=== PATIENT | female | born 1945 | race Caucasian/White ===

== ENCOUNTER → 2020-06-24 12:16 | Outpatient (BNVA) | payer OTHER, MEDICARE, SELFPAY | PROVIDERS: PCP Emergency Medicine; Referring Provider Emergency Medicine; Visit Provider Student in an Organized Health Care Education/Training Program | DX: M70.62 Trochanteric bursitis, left hip (principal); M75.82 Other shoulder lesions, left shoulder; M54.41 Lumbago with sciatica, right side | CPT/HCPCS: 20610 ==

== ENCOUNTER 2020-07-03 13:14 | Outpatient (REF) | payer OTHER, SELFPAY ==
--- NOTE | 2020-07-03 13:17 | XR_ITS ---
EXAMINATION: XR LUMBOSACRAL SPINE CLINICAL INFORMATION: Lumbago with right-sided sciatica. COMPARISON: None TECHNIQUE: Three views of the lumbosacral spine. FINDINGS: There is levorotoscoliosis of dorsolumbar spine. No lytic process. The vertebral heights are maintained. There is moderate ventral spondylosis throughout lumbar spine. Mild facet joint arthropathy seen throughout lumbar spine. There is evidence of previous cholecystectomy. The soft tissues are normal. XR/XR lumbar spine 2-3V IMPRESSION: Moderate levoscoliosis of dorsolumbar lumbar spine with moderate spondylosis throughout lumbar spine. No acute fracture or lytic process seen.
--- NOTE | 2020-07-03 13:20 | US_ITS ---
EXAMINATION: US SOFT TISSUE OF THE NECK CLINICAL INFORMATION: Localized swelling, mass and lump, neck. COMPARISON: CT neck 06/10/2010. TECHNIQUE: Linear transducer grayscale and color Doppler examination of the lateral left neck in the area of sternocleidomastoid muscle. FINDINGS: Imaging to the left neck reveals no visible mass or lymph node. No abnormal vascularity or soft tissue swelling. US/US soft tiss head and/or neck IMPRESSION: Unremarkable imaging of left neck by ultrasound
== END 2020-07-03 13:15 | disposition home or self-care (01) ==
LOC: HO.MDS 13:14
PROVIDERS: PCP Internal Medicine; Visit Provider Internal Medicine Pulmonary Disease
DX: J45.909 Unspecified asthma, uncomplicated (principal); M54.41 Lumbago with sciatica, right side; R22.1 Localized swelling, mass and lump, neck
CPT/HCPCS: 72100; 76536

== ENCOUNTER 2020-07-10 11:30 | Outpatient (REF) | payer MEDICARE, SELFPAY | END 2020-07-10 11:31 | disposition home or self-care (01) | LOC: HO.MDS 11:30 | PROVIDERS: PCP Internal Medicine; Visit Provider Internal Medicine Pulmonary Disease | DX: J45.909 Unspecified asthma, uncomplicated (principal) | CPT/HCPCS: 96372; J0517 ==

== ENCOUNTER 2020-09-08 | Outpatient (REF) | payer MEDICARE, SELFPAY | END 2020-09-08 00:01 | disposition home or self-care (01) | LOC: HO.MDS | PROVIDERS: PCP Internal Medicine; Visit Provider Internal Medicine Pulmonary Disease | DX: J45.50 Severe persistent asthma, uncomplicated (principal) | CPT/HCPCS: 96372; J0517 ==

== ENCOUNTER → 2020-10-02 09:37 | Outpatient (BNVA) | payer MEDICARE, SELFPAY | PROVIDERS: PCP Internal Medicine; Visit Provider Urology | DX: C67.9 Malignant neoplasm of bladder, unspecified (principal); N39.0 Urinary tract infection, site not specified | CPT/HCPCS: 81002; 99212 ==

== ENCOUNTER → 2020-10-08 10:17 | Outpatient (BNVA) | payer MEDICARE, SELFPAY | PROVIDERS: PCP Internal Medicine; Visit Provider Urology | DX: C67.9 Malignant neoplasm of bladder, unspecified (principal) | CPT/HCPCS: 52000; 81002; 99212 ==

== ENCOUNTER → 2020-10-22 09:24 | Outpatient (BNVA) | payer MEDICARE, SELFPAY | PROVIDERS: PCP Internal Medicine; Visit Provider Student in an Organized Health Care Education/Training Program | DX: M70.61 Trochanteric bursitis, right hip (principal) | CPT/HCPCS: 20610; 99212 ==

== ENCOUNTER 2020-11-03 10:25 | Outpatient (REF) | payer MEDICARE, SELFPAY | END 2020-11-03 10:26 | disposition home or self-care (01) | LOC: HO.MDS 10:25 | PROVIDERS: PCP Internal Medicine; Visit Provider Internal Medicine Pulmonary Disease | DX: J45.50 Severe persistent asthma, uncomplicated (principal) | CPT/HCPCS: 96372; J0517 ==

== ENCOUNTER → 2020-11-05 09:41 | Outpatient (BNVA) | payer MEDICARE, SELFPAY | PROVIDERS: Visit Provider Internal Medicine Pulmonary Disease | DX: J45.40 Moderate persistent asthma, uncomplicated (principal); R05 Cough; Z91.09 Other allergy status, other than to drugs and biological substances | CPT/HCPCS: 99212 ==

== ENCOUNTER → 2020-11-11 10:41 | Outpatient (BNVA) | payer MEDICARE, SELFPAY | PROVIDERS: Visit Provider Physician Assistant | DX: M25.551 Pain in right hip (principal) | CPT/HCPCS: 99202 ==

== ENCOUNTER → 2020-12-21 08:46 | Outpatient (BNVA) | payer MEDICARE, SELFPAY | PROVIDERS: Visit Provider Surgery | DX: K64.4 Residual hemorrhoidal skin tags (principal); K64.8 Other hemorrhoids | CPT/HCPCS: 46600; 99202 ==

== ENCOUNTER 2020-12-29 09:46 | Outpatient (REF) | payer MEDICARE, SELFPAY | END 2020-12-29 09:47 | disposition home or self-care (01) | LOC: HO.MDS 09:46 | PROVIDERS: PCP Internal Medicine; Visit Provider Internal Medicine Pulmonary Disease | DX: J45.50 Severe persistent asthma, uncomplicated (principal) | CPT/HCPCS: 96372; J0517 ==

== ENCOUNTER 2021-01-29 07:50 | Emergency (ER) | payer MEDICARE, SELFPAY ==
--- NOTE | 2021-01-29 08:42 | ED.GENADULT ---
HPI - General Adult General Chief complaint: Back Pain/Injury Stated complaint: lower back pain Source: patient Mode of arrival: ambulatory Limitations: no limitations History of Present Illness HPI narrative: Patient presents to ED for chronic right lower back/right hip pain radiating down right leg has been going on for at least 4 months. Patient with follow-up with orthopedic and rheumatology. Patient states pain has been occurring since fall 2 months ago, but has had these issues dealt in follow-up rheumatology 2 months before traumatic event. Patient states only able to take Tylenol due to allergies. Patient denies no new trauma since falling 2 months ago. Patient denies any swelling of lower extremities, flank pain, fever, chills, nausea, vomiting, dysuria, hematuria, or abdominal pain. Patient history of left and right hip bursitis. Related Data Home Medications Medication Instructions Recorded Confirmed albuterol sulfate 90 mcg/actuation 2 puff INHALATION Q4-6H PRN 06/24/20 12/21/20 aerosol inhaler cholecalciferol (vitamin D3) 25 25 mcg PO DAILY 06/24/20 12/21/20 mcg (1,000 unit) capsule fluticasone propionate 110 1 puff INHALATION BID 06/24/20 12/21/20 mcg/actuation HFA aerosol inhaler fluticasone propionate 50 1 spray INTRANASAL DAILY 06/24/20 12/21/20 mcg/actuation nasal spray,suspension hydroxyzine HCl 25 mg tablet 25 mg PO QID PRN 06/24/20 12/21/20 lisinopril 10 mg tablet 10 mg PO DAILY 06/24/20 12/21/20 pravastatin 20 mg tablet 20 mg PO DAILY 06/24/20 12/21/20 linaclotide 145 mcg capsule 145 mcg PO QAM 07/02/20 12/21/20 aspirin 81 mg tablet,delayed 81 mg PO DAILY 12/21/20 12/21/20 release Previous Rx's Medication Instructions Recorded omeprazole 20 mg capsule,delayed 40 mg PO BID 30 Days #120 cap 11/05/20 release celecoxib 200 mg capsule 200 mg PO BID 30 Days #60 cap 11/12/20 hydrocortisone acetate 25 mg 25 mg DE BID PRN #24 ea 12/22/20 rectal suppository hydrocortisone 1 %-pramoxine 1 % 1 appl DE BID PRN #10 g 12/24/20 rectal foam benralizumab 30 mg/mL subcutaneous 30 mg SUBCUT Q8W 30 Days #1 ml 01/06/21 syringe lidocaine 1 patch TOPICAL DAILY PRN 10 Days 01/29/21 #10 ea Allergies Allergy/AdvReac Type Severity Reaction Status Date / Time aspirin [ASA] Allergy Intermediate RASH Verified 12/21/20 09:07 ibuprofen [Ibuprofen] Allergy Intermediate RASH Verified 12/21/20 09:07 morphine [MORPHINE] Allergy Intermediate ITCHING Verified 12/21/20 09:07 naproxen [From NAPROSYN] Allergy Intermediate RASH,N/V Verified 12/21/20 09:07 oxycodone [OXYCODONE] Allergy Intermediate NAUSEA & Verified 12/21/20 09:07 VOMITING, RASH Review of Systems Review of Systems: Yes all other systems are reviewed and are negative Constitutional: Constitutional: Reports as per HPI and Reports no additional constitutional complaints Eyes: Eyes: Reports as per HPI and Reports no additional eye complaints ENT: Reports system reviewed and no additional complaints, except as documented and Reports as per HPI Cardiovascular: Cardiovascular: Reports as per HPI and Reports no additional cardiovascular complaints Respiratory: Respiratory: Reports as per HPI and Reports no additional respiratory complaints Gastrointestinal: Gastrointestinal: Reports as per HPI and Reports no additional gastrointestinal complaints Genitourinary: Genitourinary: Reports no additional female genitourinary complaints and Reports as per HPI Musculoskeletal: Musculoskeletal: Reports no additional musculoskeletal complaints, Reports as per HPI, Reports back pain and Reports arthralgias (Right hip pain) Integumentary/Breasts: Skin/Breast: Reports system reviewed and no additional complaints, except as docu and Reports as per HPI Neurologic: Reports system reviewed and no additional complaints, except as documented and Reports as per HPI Psychiatric: Psychiatric: Reports no additional psychiatric complaints and Reports as per HPI PMF Past Medical History Medical History (Updated 01/29/21 @ 08:54 by YAMIL Desai) Bladder mass Hemorrhoids with complication Malignant neoplasm of urinary bladder UTI (urinary tract infection) Surgical History History of esophagogastroduodenoscopy (EGD) Hx of colonoscopy (01/17/19) Family History Family History Father No problems noted. Mother Diabetes Brother Lung cancer Daughter Diabetes Social History Social History Household Members: Spouse Housing: Apartment Alcohol intake: never Smoking Status: Never smoker Use of substances other than those prescribed or required for medical reasons: No Advance Directives: No Advance Directives Information Provided: No Physical Exam Vital Signs: Vital Signs: Last Vital Signs Temp 98.1 F 01/29/21 08:48 Pulse 83 01/29/21 08:48 Resp 16 01/29/21 08:48 BP 147/79 H 01/29/21 08:48 Pulse Ox 97 01/29/21 08:48 Body Mass Index 26.2 Const: General: cooperative, healthy appearing, comfortable, no acute distress, well developed, alert, awake and Physically active HENMT: Head: Yes normal to inspection, Yes No palpable skull fracture present, Yes normocephalic, Yes atraumatic and No abrasion Eyes: General: appearance normal, both eyes and all related structures Neck: Neck: Yes normal visual inspection, Yes full ROM, Yes no lymphadenopathy, Yes no meningeal signs, Yes trachea midline, Yes supple and No tender Chest: Chest palpation & inspection: normal inspection of the chest and normal palpation of entire chest wall Resp: Effort & Inspection: normal respiratory effort and able to speak in complete sentences Auscultation: clear to auscultation bilaterally Cardio: Jugular venous distension: no JVD Heart sounds: S1 normal heart sound present and S2 normal heart sound present GI: Inspection: Yes normal to inspection and No abdominal wall ecchymosis Palpation (GI): Soft to palpation, not firm, nontender, no guarding and not rigid : General: No CVA tenderness and Yes no CVA tenderness Back/Spine/Pelvis: Other: Patient also have left posterior lumbar /hip pain radiating down leg on palpation. Back: no CVA tenderness, No CVA tenderness and back tenderness (lumbar/posterior hip) Skin: General skin exam: no rashes or lesions noted and elasticity normal Neuro: Other: Patient has normal gait General: patient oriented x3, no meningeal signs and CN's II-XI intact bilaterally Cranial nerves: Yes CN's II-XII intact bilaterally Extrem: Other: Lower extremities negative for any swelling, pitting edema, calf tenderness, or thigh tenderness. Negative for palpable cord. Pedal pulses intact. General: Yes normal to inspection, Yes full ROM and Yes capillary refill normal Course Course Course Narrative: Not suspecting UTI. Patient has allergy to lots of pain medication. Pain med option limited. Patient only able take Tylenol. No need for repeat imaging. Patient having symptoms for at least 4 months per Reevaluation(s) Reevaluation #1: Patient given lidocaine patch and will be discharged with lidocaine patch. Patient informed to continue taking Tylenol. Patient informed to follow-up with PCP, Orthopedic, and rheumatology. Medical Decision Making MDM Narrative Medical decision making narrative: Chronic back pain Discharge Plan Discharge Clinical Impression: Low back pain due to bilateral sciatica, Lumbar radiculopathy Patient Disposition: Home, Self-Care Instructions: Sciatica (ED), Lumbar Radiculopathy (ED) Additional Instructions: Return to the ED for urinary/bowel incontinence, severe back pain, flank pain, fever, chills, nausea, vomiting, abdominal pain, bloody urine, increased urinary frequency, weakness in legs, or any other concerning symptoms. Prescriptions: New lidocaine 3.5 % adhesive patch,medicated 1 patch topical DAILY PRN (Reason: pain) 10 Days Qty: 10 RF: 0 No Action hydrocortisone acetate [Anucort-HC] 25 mg suppository 25 mg DE BID PRN (Reason: hemorrhoids) Qty: 24 RF: 2 Proctofoam HC 1-1 % foam 1 appl DE BID PRN (Reason: hemorrhoids) Qty: 10 RF: 1 Fasenra 30 mg/mL syringe 30 mg subcut Q8W 30 Days Qty: 1 RF: 12 celecoxib [Celebrex] 200 mg capsule 200 mg PO BID 30 Days Qty: 60 RF: 3 aspirin 81 mg tablet,delayed release (DR/EC) 81 mg PO DAILY RF: 0 albuterol sulfate 90 mcg/actuation HFA aerosol inhaler 2 puff inhalation Q4-6H PRNRF: 0 hydroxyzine HCl 25 mg tablet 25 mg PO QID PRNRF: 0 cholecalciferol (vitamin D3) 25 mcg (1,000 unit) capsule 25 mcg PO DAILY RF: 0 fluticasone propionate [Flonase Allergy Relief] 50 mcg/actuation spray,suspension 1 spray intranasal DAILY RF: 0 pravastatin 20 mg tablet 20 mg PO DAILY RF: 0 lisinopril 10 mg tablet 10 mg PO DAILY RF: 0 Flovent HFA 110 mcg/actuation HFA aerosol inhaler 1 puff inhalation BID RF: 0 Linzess 145 mcg capsule 145 mcg PO QAM RF: 0 omeprazole 20 mg capsule,delayed release(DR/EC) 40 mg PO BID 30 Days Qty: 120 RF: 3 Referrals: Angeline Klein MD [Primary Care Provider] - 2 days (Lumbar radiculopathy & sciatica.) Discharge Date/Time: 01/29/21 09:32 Print Language: Par[place]ayan
[2021-01-29 08:48] VITALS: BP 147/79; PULSE 83; RESP 16; TEMP 36.7; O2SAT 97; BMI 26.2
[2021-01-29] MEDS: Lidocaine 4 % Patch ADH..PATCH 1 PATCH TRANSDERMA (08:55)
== END 2021-01-29 09:32 | disposition home or self-care (01) ==
PROVIDERS: Emergency Provider Internal Medicine; PCP General Practice
DX: M54.41 Lumbago with sciatica, right side (principal); M54.42 Lumbago with sciatica, left side; M54.16 Radiculopathy, lumbar region; Z79.899 Other long term (current) drug therapy; Z79.82 Long term (current) use of aspirin
CPT/HCPCS: 99284

== ENCOUNTER → 2021-02-18 10:23 | Outpatient (BNVA) | payer MEDICARE, SELFPAY | PROVIDERS: PCP General Practice; Visit Provider Internal Medicine Pulmonary Disease | DX: J45.40 Moderate persistent asthma, uncomplicated (principal); R05 Cough | CPT/HCPCS: 99212 ==

== ENCOUNTER → 2021-02-24 09:35 | Outpatient (BNVA) | payer MEDICARE, SELFPAY | PROVIDERS: Visit Provider Student in an Organized Health Care Education/Training Program | DX: M70.61 Trochanteric bursitis, right hip (principal); M70.62 Trochanteric bursitis, left hip | CPT/HCPCS: 20610; 99212 ==

== ENCOUNTER 2021-02-25 11:05 | Outpatient (REF) | payer MEDICARE, SELFPAY | END 2021-02-25 11:06 | disposition home or self-care (01) | LOC: HO.MDS 11:05 | PROVIDERS: PCP General Practice; Visit Provider Internal Medicine Pulmonary Disease | DX: J45.50 Severe persistent asthma, uncomplicated (principal) | CPT/HCPCS: 96372; J0517 ==

== ENCOUNTER → 2021-03-04 10:03 | Outpatient (BNVA) | payer MEDICARE, SELFPAY | PROVIDERS: PCP General Practice; Visit Provider Nurse Practitioner | DX: K64.8 Other hemorrhoids (principal); K21.9 Gastro-esophageal reflux disease without esophagitis; K59.04 Chronic idiopathic constipation; R11.2 Nausea with vomiting, unspecified; R10.9 Unspecified abdominal pain | CPT/HCPCS: 99212 ==

== ENCOUNTER 2021-04-05 09:50 | Outpatient (REF) | payer MEDICARE, SELFPAY ==
--- NOTE | ~2021-04-05 | XR_ITS ---
EXAMINATION: XR PELVIS, AP XR FEMUR, RIGHT XR FEMUR, LEFT CLINICAL INFORMATION: Bilateral leg pain. COMPARISON: Radiographs left hip 11/12/2018, radiographs right hip 03/27/2018, CT pelvis 08/11/2018. TECHNIQUE: AP view of the pelvis is performed. Each leg is imaged in AP x2, lateral, and frog-lateral projections for a total of 8 views, 4 on each side. FINDINGS: The pelvis shows no fracture or dislocation or destructive process. Again, there is prominent levocurvature lumbar spine with multilevel degenerative changes with partially bridging osteophytes. There is mild loss of height L3 similar to CT study 2018. The SI joints and pubis show no erosive change or diastases. There is some whiskering at the bilateral lateral iliac crests again seen. Both hip again show spurring at the superolateral acetabular rims. No interval focal joint narrowing or erosive change or chondrocalcinosis. There is mild spurring at the bilateral greater trochanters. The femoral shaft show no destructive process. The knees show no focal joint narrowing. XR/XR pelvis 1-2V IMPRESSION: 1. Levocurvature lumbar spine with multilevel degenerative changes. 2. Spurring bilateral superior lateral acetabular rims. Mild bilateral spurring greater trochanters. 3. No fracture, dislocation, or destructive process.
--- NOTE | ~2021-04-05 | XR_ITS ---
EXAMINATION: XR PELVIS, AP XR FEMUR, RIGHT XR FEMUR, LEFT CLINICAL INFORMATION: Bilateral leg pain. COMPARISON: Radiographs left hip 11/12/2018, radiographs right hip 03/27/2018, CT pelvis 08/11/2018. TECHNIQUE: AP view of the pelvis is performed. Each leg is imaged in AP x2, lateral, and frog-lateral projections for a total of 8 views, 4 on each side. FINDINGS: The pelvis shows no fracture or dislocation or destructive process. Again, there is prominent levocurvature lumbar spine with multilevel degenerative changes with partially bridging osteophytes. There is mild loss of height L3 similar to CT study 2018. The SI joints and pubis show no erosive change or diastases. There is some whiskering at the bilateral lateral iliac crests again seen. Both hip again show spurring at the superolateral acetabular rims. No interval focal joint narrowing or erosive change or chondrocalcinosis. There is mild spurring at the bilateral greater trochanters. The femoral shaft show no destructive process. The knees show no focal joint narrowing. XR/XR femur RT 2V IMPRESSION: 1. Levocurvature lumbar spine with multilevel degenerative changes. 2. Spurring bilateral superior lateral acetabular rims. Mild bilateral spurring greater trochanters. 3. No fracture, dislocation, or destructive process.
--- NOTE | ~2021-04-05 | XR_ITS ---
EXAMINATION: XR PELVIS, AP XR FEMUR, RIGHT XR FEMUR, LEFT CLINICAL INFORMATION: Bilateral leg pain. COMPARISON: Radiographs left hip 11/12/2018, radiographs right hip 03/27/2018, CT pelvis 08/11/2018. TECHNIQUE: AP view of the pelvis is performed. Each leg is imaged in AP x2, lateral, and frog-lateral projections for a total of 8 views, 4 on each side. FINDINGS: The pelvis shows no fracture or dislocation or destructive process. Again, there is prominent levocurvature lumbar spine with multilevel degenerative changes with partially bridging osteophytes. There is mild loss of height L3 similar to CT study 2018. The SI joints and pubis show no erosive change or diastases. There is some whiskering at the bilateral lateral iliac crests again seen. Both hip again show spurring at the superolateral acetabular rims. No interval focal joint narrowing or erosive change or chondrocalcinosis. There is mild spurring at the bilateral greater trochanters. The femoral shaft show no destructive process. The knees show no focal joint narrowing. XR/XR femur LT 2V IMPRESSION: 1. Levocurvature lumbar spine with multilevel degenerative changes. 2. Spurring bilateral superior lateral acetabular rims. Mild bilateral spurring greater trochanters. 3. No fracture, dislocation, or destructive process.
== END 2021-04-05 09:51 | disposition home or self-care (01) ==
LOC: HO.XRAY 09:50
PROVIDERS: Absent Provider General Practice; PCP General Practice; Visit Provider Nurse Practitioner Primary Care
DX: M79.604 Pain in right leg (principal); M79.605 Pain in left leg
CPT/HCPCS: 72170; 73552

== ENCOUNTER → 2021-04-13 12:39 | Outpatient (BNVA) | payer MEDICARE, SELFPAY | PROVIDERS: PCP General Practice; Visit Provider Nurse Practitioner | DX: K64.8 Other hemorrhoids (principal); K21.9 Gastro-esophageal reflux disease without esophagitis; K59.04 Chronic idiopathic constipation; R10.9 Unspecified abdominal pain; R11.2 Nausea with vomiting, unspecified | CPT/HCPCS: Q3014 ==

== ENCOUNTER → 2021-06-04 10:47 | Outpatient (BNVA) | payer MEDICARE, SELFPAY | PROVIDERS: PCP General Practice; Visit Provider Urology | DX: C67.9 Malignant neoplasm of bladder, unspecified (principal) | CPT/HCPCS: 52000 ==

== ENCOUNTER 2021-06-07 08:44 | Outpatient (REF) | payer MEDICARE, SELFPAY | END 2021-06-07 08:45 | disposition home or self-care (01) | LOC: HO.MDS 08:44 | PROVIDERS: PCP General Practice; Visit Provider Internal Medicine Pulmonary Disease | DX: J45.50 Severe persistent asthma, uncomplicated (principal) | CPT/HCPCS: 96372; J0517 ==

== ENCOUNTER → 2021-06-23 11:00 | Outpatient (BNVA) | payer MEDICARE, SELFPAY | PROVIDERS: PCP General Practice; Visit Provider Internal Medicine Pulmonary Disease | DX: J45.40 Moderate persistent asthma, uncomplicated (principal); J40 Bronchitis, not specified as acute or chronic; Z91.09 Other allergy status, other than to drugs and biological substances | CPT/HCPCS: 99212 ==

== ENCOUNTER → 2021-07-15 11:17 | Outpatient (BNVA) | payer MEDICARE, SELFPAY | PROVIDERS: PCP General Practice; Referring Provider General Practice; Visit Provider Nurse Practitioner | DX: K21.9 Gastro-esophageal reflux disease without esophagitis (principal); K59.04 Chronic idiopathic constipation; K63.89 Other specified diseases of intestine; R10.9 Unspecified abdominal pain | CPT/HCPCS: 99212 ==

== ENCOUNTER 2021-09-29 11:50 | Outpatient (REF) | payer MEDICARE, SELFPAY ==
--- NOTE | ~2021-09-29 | XR_ITS ---
EXAMINATION: XR SHOULDER, LEFT CLINICAL INFORMATION: Pain COMPARISON: No prior left shoulder radiographs available. TECHNIQUE: 3 views of the left shoulder. FINDINGS: Mild glenohumeral joint arthritis, with inferior joint space spurring. Mild acromioclavicular arthritis. No visible acute fracture or dislocation. Left clavicle is intact. No suspicious soft tissue calcifications. XR/XR shoulder LT min 2V IMPRESSION: Mild glenohumeral joint arthritis. Mild acromioclavicular arthritis.
== END 2021-09-29 11:51 | disposition home or self-care (01) ==
LOC: HO.HOSX 11:50
PROVIDERS: PCP General Practice; Visit Provider Physician Assistant
DX: M19.012 Primary osteoarthritis, left shoulder (principal)
CPT/HCPCS: 20610; 73030; 99212; J1040

== ENCOUNTER 2021-10-04 11:08 | Outpatient (REF) | payer MEDICARE, SELFPAY | END 2021-10-04 11:09 | disposition home or self-care (01) | LOC: HO.MDS 11:08 | PROVIDERS: Visit Provider Internal Medicine Pulmonary Disease | DX: J45.50 Severe persistent asthma, uncomplicated (principal) | CPT/HCPCS: 96372; J0517 ==

== ENCOUNTER 2021-10-06 09:30 | Outpatient (REF) | payer MEDICARE, SELFPAY ==
[2021-10-06 16:36] LABS: Urine Cytology See Pathology rpt
== END 2021-10-06 09:31 | disposition home or self-care (01) ==
LOC: HO.LAB 09:30
PROVIDERS: PCP General Practice; Visit Provider Urology
DX: C67.9 Malignant neoplasm of bladder, unspecified (principal); R30.0 Dysuria; Z87.891 Personal history of nicotine dependence; Z88.6 Allergy status to analgesic agent; Z88.8 Allergy status to other drugs, medicaments and biological substances
CPT/HCPCS: 52000; 88112; 99212

== ENCOUNTER → 2021-11-26 09:37 | Outpatient (BNVA) | payer MEDICARE, SELFPAY | PROVIDERS: PCP General Practice; Visit Provider Internal Medicine Pulmonary Disease | DX: K59.04 Chronic idiopathic constipation (principal); K21.9 Gastro-esophageal reflux disease without esophagitis; K63.89 Other specified diseases of intestine; R11.2 Nausea with vomiting, unspecified; R10.9 Unspecified abdominal pain; J45.40 Moderate persistent asthma, uncomplicated; R05.8 Other specified cough; Z91.09 Other allergy status, other than to drugs and biological substances | CPT/HCPCS: 99212 ==

== ENCOUNTER 2021-11-30 09:08 | Outpatient (REF) | payer OTHER, SELFPAY ==
[2021-11-30 10:02] LABS: Hematocrit 44.9 % (37.0-47.0); Hemoglobin 13.9 g/dl (12.0-16.0); Mean Corpuscular Hemoglobin 28.1 pg (27.0-33.0); Mean Corpuscular Volume 90.9 fL (80.0-98.0); Platelet Count 390 X10*3/uL (160-400); Red Blood Count 4.94 X10*6/uL (4.20-5.50); Red Cell Distribution Width 12.9 % (11.0-16.0); White Blood Count 8.2 X10*3/uL (4.8-10.8)
[2021-11-30 10:29] LABS: Estimated Average Glucose 105 mg/dL; Hemoglobin A1c % 5.3 %
[2021-11-30 10:56] LABS: Alanine Aminotransferase 18 U/L (0-31); Albumin Level 4.1 g/dL (3.5-5.0); Alkaline Phosphatase 111 U/L (39-117); Anion Gap 15 (12-20); Aspartate Amino Transferase 19 U/L (5-31); Bilirubin Direct 0.2 mg/dL (0.0-0.5); Bilirubin Total 0.5 mg/dL (0.0-1.0); Blood Urea Nitrogen 27 mg/dL (9-16); Calcium 9.9 mg/dL (8.4-10.2); Carbon Dioxide 27 mmol/L (22-29); Chloride 103 mmol/L (96-108); Estimated Glomerular Filt Rate > 60; Glucose Random 107 mg/dL (60-115); Potassium 4.8 mmol/L (3.3-5.1); Rheumatoid Factor < 15.0 IU/mL (<15.0); Sodium 140 mmol/L (135-145); Total Protein 6.9 g/dL (6.5-8.0)
== END 2021-11-30 09:09 | disposition home or self-care (01) ==
LOC: HO.LAB 09:08
PROVIDERS: PCP General Practice; Visit Provider General Practice
DX: M25.511 Pain in right shoulder (principal); M25.512 Pain in left shoulder; M25.551 Pain in right hip; M79.651 Pain in right thigh; M79.652 Pain in left thigh
CPT/HCPCS: 36415; 80053; 82248; 83036; 85027; 86431

== ENCOUNTER 2021-11-30 09:47 | Outpatient (REF) | payer MEDICARE, SELFPAY | END 2021-11-30 09:48 | disposition home or self-care (01) | LOC: HO.MDS 09:47 | PROVIDERS: PCP General Practice; Visit Provider Internal Medicine Pulmonary Disease | DX: J45.50 Severe persistent asthma, uncomplicated (principal) | CPT/HCPCS: 96372; J0517 ==

== ENCOUNTER 2022-02-04 11:33 | Outpatient (REF) | payer OTHER, SELFPAY | END 2022-02-04 11:34 | disposition home or self-care (01) | LOC: HO.MDS 11:33 | PROVIDERS: Visit Provider Internal Medicine Pulmonary Disease | DX: J45.50 Severe persistent asthma, uncomplicated (principal) | CPT/HCPCS: 96372; J0517 ==

== ENCOUNTER 2022-03-03 08:58 | Outpatient (REF) | payer OTHER, SELFPAY ==
--- NOTE | ~2022-03-03 | XR_ITS ---
EXAMINATION: XR SACRUM AND COCCYX CLINICAL INFORMATION: Pain. COMPARISON: None. TECHNIQUE: 2 views of the sacrum and 2 views of the coccyx were obtained. FINDINGS: There are no fractures. No bone, joint or soft tissue abnormality is demonstrated. XR/XR sacrum coccyx min 2V IMPRESSION: Unremarkable sacrum examination.
== END 2022-03-03 08:59 | disposition home or self-care (01) ==
LOC: HO.XRAY 08:58
PROVIDERS: PCP General Practice; Visit Provider General Practice
DX: M53.3 Sacrococcygeal disorders, not elsewhere classified (principal)
CPT/HCPCS: 72220

== ENCOUNTER → 2022-03-09 10:40 | Outpatient (BNVA) | payer OTHER, SELFPAY | PROVIDERS: PCP General Practice; Visit Provider Internal Medicine Pulmonary Disease | DX: J45.40 Moderate persistent asthma, uncomplicated (principal); M54.9 Dorsalgia, unspecified; R05.8 Other specified cough; Z91.09 Other allergy status, other than to drugs and biological substances | CPT/HCPCS: 99212 ==

== ENCOUNTER 2022-04-01 10:29 | Outpatient (REF) | payer OTHER, SELFPAY | END 2022-04-01 10:30 | disposition home or self-care (01) | LOC: HO.MDS 10:29 | PROVIDERS: Visit Provider Internal Medicine Pulmonary Disease | DX: J45.50 Severe persistent asthma, uncomplicated (principal) | CPT/HCPCS: 96372; J0517 ==

== ENCOUNTER 2022-05-04 10:54 | Outpatient (REF) | payer OTHER, SELFPAY ==
--- NOTE | ~2022-05-04 | XR_ITS ---
EXAMINATION: XR THORACIC SPINE CLINICAL INFORMATION: Back pain COMPARISON: None TECHNIQUE: 3 views of the thoracic spine were obtained. FINDINGS: There is severe curvature of the lower thoracic and upper lumbar spine to the left. No fracture or dislocation is seen. There is multilevel degenerative spondylosis. Paraspinal soft tissues are normal. XR/XR thoracic spine 3V IMPRESSION: Scoliosis and degenerative changes.
--- NOTE | ~2022-05-04 | XR_ITS ---
EXAMINATION: XR CHEST CLINICAL INFORMATION: Cough COMPARISON: Previous chest x-ray most recent September 2019 TECHNIQUE: 2 views of the chest were obtained. FINDINGS: The cardiac and mediastinal contours are stable. The lungs are clear. There is no pleural effusion or pneumothorax. There is thoracolumbar scoliosis and degenerative changes of the spine. XR/XR chest 2V IMPRESSION: No evidence for acute disease in the chest.
== END 2022-05-04 10:55 | disposition home or self-care (01) ==
LOC: HO.XRAY 10:54
PROVIDERS: PCP General Practice; Visit Provider Internal Medicine Pulmonary Disease
DX: M54.9 Dorsalgia, unspecified (principal); R05.8 Other specified cough
CPT/HCPCS: 71046; 72072

== ENCOUNTER → 2022-05-11 10:44 | Outpatient (BNVA) | payer OTHER, SELFPAY | PROVIDERS: PCP General Practice; Visit Provider Internal Medicine Pulmonary Disease | DX: J45.40 Moderate persistent asthma, uncomplicated (principal); Z91.09 Other allergy status, other than to drugs and biological substances | CPT/HCPCS: 99212 ==

== ENCOUNTER 2022-05-26 14:01 | Outpatient (REF) | payer OTHER, SELFPAY ==
--- NOTE | ~2022-05-26 | XR_ITS ---
EXAMINATION: XR CHEST 2 VIEWS CLINICAL INFORMATION: Moderate persistent asthma. COMPARISON: Chest radiographs dated 05/04/2022. TECHNIQUE: Frontal and lateral views of the chest were obtained. FINDINGS: The heart, great vessels, pulmonary vasculature and mediastinum are normal. The lungs show no focal infiltrate, effusion or pneumothorax. There is no acute osseous abnormality. There is a moderately severe thoracic dextroscoliosis. XR/XR chest 2V IMPRESSION: No active cardiopulmonary disease.
== END 2022-05-26 14:02 | disposition home or self-care (01) ==
LOC: HO.XRAY 14:01
PROVIDERS: Visit Provider Internal Medicine Pulmonary Disease
DX: J45.40 Moderate persistent asthma, uncomplicated (principal)
CPT/HCPCS: 71046; 99212

== ENCOUNTER 2022-05-27 09:22 | Outpatient (REF) | payer OTHER, SELFPAY | END 2022-05-27 09:23 | disposition home or self-care (01) | LOC: HO.MDS 09:22 | PROVIDERS: Visit Provider Internal Medicine Pulmonary Disease | DX: J45.50 Severe persistent asthma, uncomplicated (principal) | CPT/HCPCS: 96372; J0517 ==

== ENCOUNTER 2022-05-30 10:00 | Outpatient (REF) | payer OTHER, SELFPAY | END 2022-05-30 10:01 | disposition home or self-care (01) | LOC: HO.LNP 10:00 | PROVIDERS: Visit Provider Obstetrics & Gynecology | DX: R10.2 Pelvic and perineal pain (principal); R30.0 Dysuria | CPT/HCPCS: 87086; 87147; 99202 ==

== ENCOUNTER → 2022-05-31 09:42 | Outpatient (BNVA) | payer OTHER, SELFPAY | PROVIDERS: PCP General Practice; Referring Provider General Practice; Visit Provider Nurse Practitioner | DX: K59.04 Chronic idiopathic constipation (principal); K64.8 Other hemorrhoids; K21.9 Gastro-esophageal reflux disease without esophagitis | CPT/HCPCS: 99212 ==

== ENCOUNTER → 2022-06-23 09:59 | Outpatient (BNVA) | payer OTHER, SELFPAY | PROVIDERS: PCP General Practice; Visit Provider Surgery | DX: K64.8 Other hemorrhoids (principal) | CPT/HCPCS: 46600; 99212 ==

== ENCOUNTER 2022-06-29 05:11 | Outpatient (REF) | payer OTHER, SELFPAY ==
--- NOTE | ~2022-06-29 | XR_ITS ---
EXAMINATION: XR SHOULDER, RIGHT CLINICAL INFORMATION: Pain. COMPARISON: Radiograph of the right shoulder 05/02/2019. TECHNIQUE: Three views of the right shoulder. FINDINGS: Decreased bone mineralization. No acute fractures or malalignment. Mild to moderate degenerative osteoarthritis of the glenohumeral joint and acromioclavicular joint manifested by space narrowing and marginal osteophytes, slightly progressed since 2019. No abnormal soft tissue calcifications. Nonspecific interstitial thickening of the imaged lung. Atherosclerotic disease of the thoracic aorta. XR/XR shoulder RT min 2V IMPRESSION: 1. No acute fractures or malalignment. 2. 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
== END 2022-06-29 05:12 | disposition home or self-care (01) ==
LOC: HO.HOSX 05:11
PROVIDERS: Visit Provider Physician Assistant
DX: M19.011 Primary osteoarthritis, right shoulder (principal); M19.012 Primary osteoarthritis, left shoulder
CPT/HCPCS: 20610; 73030; 99212; J1020

== ENCOUNTER 2022-07-06 14:02 | Outpatient (REF) | payer OTHER, SELFPAY | END 2022-07-06 14:03 | disposition home or self-care (01) | LOC: HO.LAB 14:02 | PROVIDERS: Visit Provider Urology | DX: C67.9 Malignant neoplasm of bladder, unspecified (principal); N39.0 Urinary tract infection, site not specified; R30.0 Dysuria | CPT/HCPCS: 87086; 88121; 99212 ==

== ENCOUNTER 2022-07-22 09:11 | Outpatient (REF) | payer OTHER, SELFPAY ==
[2022-07-22 09:56] LABS: Blood Urea Nitrogen 29 mg/dL (9-16); Estimated Glomerular Filt Rate > 60
== END 2022-07-22 09:12 | disposition home or self-care (01) ==
LOC: HO.LAB 09:11
PROVIDERS: PCP General Practice; Visit Provider Urology
DX: C67.9 Malignant neoplasm of bladder, unspecified (principal)
CPT/HCPCS: 36415; 82565; 84520

== ENCOUNTER 2022-07-22 09:27 | Outpatient (REF) | payer OTHER, SELFPAY | END 2022-07-22 09:28 | disposition home or self-care (01) | LOC: HO.MDS 09:27 | PROVIDERS: Visit Provider Internal Medicine Pulmonary Disease | DX: J45.50 Severe persistent asthma, uncomplicated (principal) | CPT/HCPCS: 96372; J0517 ==

== ENCOUNTER → 2022-07-25 10:16 | Outpatient (BNVA) | payer OTHER, SELFPAY | PROVIDERS: PCP General Practice; Visit Provider Surgery | DX: K64.8 Other hemorrhoids (principal) | CPT/HCPCS: 99212 ==

== ENCOUNTER 2022-07-27 08:21 | Outpatient (REF) | payer OTHER, SELFPAY ==
--- NOTE | ~2022-07-27 | CT_ITS ---
EXAMINATION: CT ABDOMEN AND PELVIS WITHOUT AND WITH CONTRAST CLINICAL INFORMATION: Dysuria COMPARISON: None TECHNIQUE: Multidetector volumetric imaging was performed of the abdomen and pelvis before and after the IV administration of 85 mL of Omnipaque 350 intravenous contrast. Sagittal and coronal reformatted images were obtained on the technologist's workstation. This CT examination was performed using dose optimization techniques as appropriate, variously including the following: *Automated exposure control *Adjustment of mA and/or kV according to patient size (this includes techniques or standardized protocols for targeted exams where dose is matched to indication/reason for exam; i.e. extremities or head) *Use of iterative reconstruction technique DLP: 828 mGy-cm FINDINGS: LUNG BASES: The visualized lung bases are unremarkable. There is a small hiatal hernia. LIVER, GALLBLADDER, AND BILIARY TREE: The liver is normal in size, shape, and attenuation. No focal hepatic lesion or biliary ductal dilatation is present. There is pneumobilia predominantly in the left hepatic lobe. The gallbladder has been surgically removed. PANCREAS: Unremarkable SPLEEN: Unremarkable ADRENAL GLANDS: Unremarkable KIDNEYS AND URETERS: The kidneys are normal in size, shape, and attenuation. No radiopaque renal calculi visualized. Postcontrast, both kidney nephrograms are symmetrical. Left kidney measures 10.6 cm in length and right kidney measures 10.3 cm in length. There is no enhancing renal mass. There are bilateral extrarenal kidney pelvises. BLADDER: There is mild anterior bladder wall thickening. No enhancing lesion or radiopaque calculi seen. GASTROINTESTINAL TRACT: There is scattered stool, diverticula and gas seen throughout the colon without distention. The small-bowel loops are normal caliber. The appendix is normal caliber. No inflammatory process seen in the abdomen or pelvis. ABDOMINAL WALL: A small umbilical hernia containing fat is noted. LYMPH NODES: No abnormal size retroperitoneal pelvic lymph nodes seen. VASCULAR: Unremarkable PELVIC VISCERA: Unremarkable OSSEOUS STRUCTURES: Moderate levoscoliosis. There are wedge deformities of all lumbar vertebrae with bridging osteophytes in the right, in the upper and mid lumbar spine. No aggressive lytic or sclerotic process seen. CT/CT abdomen pelvis wo/w IV con IMPRESSION: 1. No radiopaque urolith or hydroureteronephrosis. There are bilateral extrarenal kidney pelvises. 2. There is mild anterior bladder wall thickening. 3. Colonic diverticulosis without diverticulitis. Fleischner guidelines were followed.
[2022-07-27] MEDS: iohexoL 350 MG/ML 100 ML INFUS..BTL IV (09:53)
== END 2022-07-27 08:22 | disposition home or self-care (01) ==
LOC: HO.CT 08:21
PROVIDERS: PCP General Practice; Visit Provider Urology
DX: R30.0 Dysuria (principal); Z85.51 Personal history of malignant neoplasm of bladder
CPT/HCPCS: 74178; Q9967

== ENCOUNTER → 2022-08-11 10:45 | Outpatient (BNVA) | payer OTHER, SELFPAY | PROVIDERS: PCP General Practice; Visit Provider Urology | DX: R30.0 Dysuria (principal); N32.89 Other specified disorders of bladder | CPT/HCPCS: 52000; 99212 ==

== ENCOUNTER 2022-08-13 11:05 | Inpatient (IN) | payer OTHER, SELFPAY ==
--- NOTE | ~2022-08-13 | US_ITS ---
EXAMINATION: US VENOUS ULTRASOUND WITH DOPPLER LOWER EXTREMITY, BILATERAL CLINICAL INFORMATION: Hypoxia and tachycardia with question of DVT COMPARISON: None TECHNIQUE: Ultrasound of the deep veins is performed from the hip to the calf with compression sonography and color and pulse Doppler assessment. Spectral analysis with color-flow imaging is performed. FINDINGS: RIGHT: There is normal venous compression and respiratory variation and augmented flow. The visualized common femoral vein, superficial femoral vein, profunda femoral vein, popliteal vein, and the trifurcation region shows no evidence of deep venous thrombosis. There is no significant popliteal fossa cyst. LEFT: There is normal venous compression and respiratory variation and augmented flow. The visualized common femoral vein, superficial femoral vein, profunda femoral vein, popliteal vein, and the trifurcation region shows no evidence of deep venous thrombosis. There is no significant popliteal fossa cyst. If the patient's symptoms persist, followup ultrasound in 5 days 7 days might be of value to exclude proximal propagation from a non-visualized calf vein. US/US venous duplex LE BI IMPRESSION: No DVT demonstrated in either lower extremity.
--- NOTE | ~2022-08-13 | XR_ITS ---
EXAMINATION: XR CHEST CLINICAL INFORMATION: Hypoxia COMPARISON: Chest radiographs 05/26/2022, 09/13/2019 TECHNIQUE: Portable upright AP view of the chest was obtained. FINDINGS: The lungs are clear. The vascularity is normal. No pneumothorax, airspace consolidation, groundglass opacity, vascular congestion, or effusion. Heart size normal. The hilar and mediastinal contours and bony structures are stable. XR/XR chest 1V IMPRESSION: No acute intrathoracic disease.
[2022-08-13 11:16] VITALS: BP 108/62; BP 114/31; PULSE 115; PULSE 120; RESP 20; TEMP 38; O2SAT 93; O2SAT 96; BMI 25.4
--- NOTE | 2022-08-13 11:43 | ED.ABDPAIN ---
HPI - Abdominal Pain General Chief Complaint: Abdominal Pain Stated Complaint: Abd Pain Time Seen by Provider: 08/13/22 11:29 Source: patient, EMS, old records reviewed and television announcer Mode of arrival: EMS Limitations: language barrier History of Present Illness HPI narrative: 77-year-old female with a history of recurrent bladder cancer s/p BCG recently rediagnosed who presents to the ER for evaluation of difficulty urinating, dysuria and left lower quadrant and pelvic pain that started yesterday. She states she has been having difficulty emptying her bladder and is only dribbling small amounts of urine. It underwood and stings when she does try to urinate. She reports pain is in her suprapubic area and left lower abdominal area. The pain started yesterday. She follows with a urologist, Dr. Crystal with plan to get her bladder tumor removed next week. She states she had a fever this morning for which she took a dose of Tylenol. She feels weak. She denies any vomiting but she has been nauseous all day today. She denies any back or flank pain. Her symptoms worsened today prompting ER evaluation. MD elicited complaint: abdominal pain and other (dysuria) Pertinent past history: past UTI Onset (ago): day(s) (1) Pain Consistency: constant Location: LLQ and suprapubic Severity: moderate Quality: stabbing Radiation: none Migration to: no migration Exacerbating factors: movement and other (Palpation) Relieving factors: nothing Context: history of similar episodes Associated symptoms: nausea, fever and chills Related Data Home Medications Medication Instructions Recorded Confirmed albuterol sulfate 90 mcg/actuation 2 puff inhalation Q4-6H PRN 06/24/20 07/06/22 aerosol inhaler hydroxyzine HCl 25 mg tablet 25 mg PO QID PRN 06/24/20 07/06/22 aspirin 81 mg tablet,delayed 81 mg PO DAILY 12/21/20 07/06/22 release cholecalciferol (vitamin D3) 50 50 mcg PO DAILY 06/04/21 07/06/22 mcg (2,000 unit) capsule ipratropium 20 mcg-albuterol 100 1 puff PO QID PRN 06/04/21 07/06/22 mcg/actuation mist for inhalation (Combivent Respimat) pravastatin 40 mg tablet 40 mg PO DAILY 06/04/21 07/06/22 lisinopril 10 mg tablet 15 mg PO DAILY 03/09/22 07/06/22 omeprazole 40 mg capsule,delayed 20 mg PO BID 03/09/22 07/06/22 release linaclotide 145 mcg capsule 145 mcg PO QAM 05/31/22 07/06/22 (Linzess) metronidazole 500 mg tablet 500 mg PO .three times a week 05/31/22 07/06/22 estradiol 0.01% (0.1 mg/gram) See Rx Instructions .Route 3XW 07/25/22 vaginal cream Previous Rx's Medication Instructions Recorded dicyclomine 10 mg capsule 10 mg PO TID 30 days #90 caps 07/15/21 benralizumab 30 mg/mL subcutaneous 30 mg subcut Q8W 30 days #1 mL 01/13/22 syringe (Fasenra) hydrocortisone 2.5 % topical cream 1 appl [place] BID PRN hemorrhoids #30 05/31/22 with perineal applicator grams (Proctosol HC) Flovent HFA 110 mcg/actuation 1 puff inhalation BID #12 grams 06/23/22 aerosol inhaler (fluticasone propionate) hydrocortisone acetate 25 mg 25 mg [place] BID PRN hemorrhoids #24 ea 06/24/22 rectal suppository (Anucort-HC) levofloxacin 250 mg tablet 250 mg PO Q24H #7 tabs 07/06/22 phenazopyridine 200 mg tablet 200 mg PO Q8H PRN pain #20 tabs 07/06/22 (Pyridium) hydrocortisone 2.5 % topical cream 1 appl [place] BID-QID hemorrhoids #30 07/25/22 with perineal applicator grams phenazopyridine 200 mg tablet 200 mg PO Q8H PRN pain with 08/11/22 (Pyridium) urination #20 tabs ampicillin 500 mg capsule 500 mg PO BID 5 days #10 caps 08/12/22 Allergies Allergy/AdvReac Type Severity Reaction Status Date / Time aspirin [ASA] Allergy Intermediate RASH Verified 08/11/22 11:50 ibuprofen [Ibuprofen] Allergy Intermediate RASH Verified 08/11/22 11:50 morphine [MORPHINE] Allergy Intermediate ITCHING Verified 08/11/22 11:50 naproxen [From NAPROSYN] Allergy Intermediate RASH,N/V Verified 08/11/22 11:50 oxycodone [OXYCODONE] Allergy Intermediate NAUSEA & Verified 08/11/22 11:50 VOMITING, RASH Review of Systems Review of Systems Constitutional: + Fever, No Chills ENT/Mouth: No sore throat, No Rhinorrhea, No Swallowing Difficulty Cardiovascular: No Chest Pain, No SOB, No Orthopnea, No Edema Respiratory: No Cough, No Sputum, No Wheezing, No dyspnea Gastrointestinal: No Nausea, No Vomiting, No Diarrhea, + abdominal Pain, No Hematochezia, No Melena Genitourinary: + Dysuria, + Urinary Frequency, No Hematuria, +Urinary retention Musculoskeletal: No joint pain, No Myalgias Skin: No Skin Lesions, No rash Neuro: + Weakness, No Numbness, No Dizziness, No Headache Psych: No Anxiety/Panic, No Depression Heme/Lymph: No Bruising, No Lymphadenopathy Endocrine: No Polyuria, No Polydipsia PMFSH Past Medical History Medical History Bladder mass Hemorrhoids with complication Hemorrhoids with complication Malignant neoplasm of urinary bladder UTI (urinary tract infection) Surgical History History of esophagogastroduodenoscopy (EGD) History of hysterectomy with bilateral oophorectomy Hx of colonoscopy (01/17/19) Family History Family History Father No problems noted. Mother Diabetes Brother Lung cancer Daughter Diabetes Social History Social History Household Members: Spouse Housing: Apartment Alcohol intake: former Patient Tobacco Use Status: Former Tobacco user Cigarettes Per Day: 3 Years Smoked: 55 Advance Directives: No Current occupation: rt handed Physical Exam ED Vital Signs: Vital Signs - 24 hr 08/13/22 11:16 08/13/22 13:47 Temperature 100.4 F 98.9 F Pulse Rate 115 H 103 H Respiratory Rate 20 19 Blood Pressure 114/31 L 148/78 H Pulse Oximetry 93 97 Oxygen Delivery Method Room Air Room Air BMI result Body Mass Index 25.4 Appearance: Alert. Oriented X3. No acute distress. Eyes: Pupils equal, round and reactive to light. ENT: Pharynx normal. Neck: Normal inspection. Neck supple. CVS: Tachycardic, regular rhythm, heart rate 110. Pulses normal. Respiratory: No respiratory distress. Breath sounds normal. Abdomen: Soft with suprapubic and left lower quadrant tenderness, no rebound or guarding. Normal active bowel sounds x4. Pelvic deferred Skin: Skin warm and dry. Normal skin color. Normal skin turgor. No rashes. Extremities: No lower extremity edema. Neuro: Oriented X 3. No motor deficit. No sensory deficit. Course Course Course Narrative: 77-year-old female with history bladder cancer with plan for bladder mass removal next week with Dr. Crystal presents to the ER for evaluation of lower abdominal pain and dysuria that started yesterday. On arrival to the ER she has a low-grade fever and is tachycardic. Concern for UTI and sepsis. IV fluids and IV Rocephin ordered. Will straight cath for accurate urinalysis. She has a history of group B strep UTI back in May. Rocephin will cover this. Reevaluation(s) Reevaluation #1: Patient has a white blood cell count of 14.9. Lactic acid is normal. No evidence of end-organ damage. No severe sepsis at this time. She does meet sepsis criteria and has been given IV fluids and antibiotics. Renal function is normal. No evidence of obstructive uropathy. Secondary to IV fluids have been ordered. She remains slightly tachycardic. Fever is improved. Will plan for admission for sepsis secondary to UTI. Dr. Crystal has been made aware of her admission and will see her tomorrow in the hospital. Consultations Consultation #1: Urology-Dr. crystal Medications Administered Discontinued Medications Generic Name Dose Route Start Last Admin Trade Name Frances PRN Reason Stop Dose Admin Acetaminophen 975 mg 08/13/22 11:29 08/13/22 11:50 Acetaminophen 325 Mg Tablet PO 08/13/22 11:30 Not Given ONCE ONE Sodium Chloride 1,000 mls @ 999 mls/hr 08/13/22 11:30 08/13/22 11:50 Ns IVCONT 08/13/22 12:30 999 mls/hr .Q1H1M HERNESTO Administration Ceftriaxone Sodium 1 gm/ 50 mls @ 100 mls/hr 08/13/22 11:29 08/13/22 12:12 Sodium Chloride IV 08/13/22 11:58 100 mls/hr ONCE ONE Administration MDM - Abdominal Pain Lab Data Result diagrams: 08/13/22 11:45 08/13/22 11:45 Labs: Lab Results 08/13/22 08/13/22 08/13/22 Range/Units 11:45 11:45 11:45 WBC 14.9 H (4.8-10.8) X10*3/uL RBC 4.81 (4.20-5.50) X10*6/uL Hgb 13.4 (12.0-16.0) g/dl Hct 42.2 (37.0-47.0) % MCV 87.7 (80.0-98.0) fL MCH 27.9 (27.0-33.0) pg MCHC 31.8 (31.0-35.0) g/dl RDW 13.0 (11.0-16.0) % Plt Count 402 H (160-400) X10*3/uL MPV 9.8 (9.4-12.3) fL Immature Gran % (Auto) 0.3 (0.0-0.4) % Neut % (Auto) 87.1 H (45-73) % Lymph % (Auto) 5.4 L (20-40) % [place] % (Auto) 7.1 (2-11) % Eos % (Auto) 0.0 (0-4) % Baso % (Auto) 0.1 (0-2) % Lymph # (Auto) 0.8 L (1.2-4.9) X10*3/uL [place] # (Auto) 1.1 (0.1-1.2) X10*3/uL Eos # (Auto) 0.0 (0.0-0.4) X10*3/uL Baso # (Auto) 0.0 (0.0-0.2) X10*3/uL Abs Immat Gran (auto) 0.04 H (0.00-0.03) X10*3/uL Absolute Neuts (auto) 13.0 H (2.0-8.3) x10*3/uL Absolute Nucleated RBC 0.000 (0.0-0.012) X10*3/uL Nucleated RBC % (auto) 0.0 (0.0-0.2) /100WBC Sodium 133 L (135-145) mmol/L Potassium 4.2 (3.3-5.1) mmol/L Chloride 100 (96-108) mmol/L Carbon Dioxide 25 (22-29) mmol/L Anion Gap 12 (12-20) BUN 24 H (9-16) mg/dL Creatinine 0.83 (0.5-1.4) mg/dL Estim Creat Clear Calc 54.4 Estimated GFR > 60 Random Glucose 111 (60-115) mg/dL Lactic Acid 1.1 (0.5-2.0) mmol/L Calcium 9.4 (8.4-10.2) mg/dL Magnesium 1.8 (1.6-2.6) mg/dL Total Bilirubin 1.0 (0.0-1.0) mg/dL Direct Bilirubin 0.3 (0.0-0.5) mg/dL AST 23 (5-31) U/L ALT 15 (0-31) U/L Alkaline Phosphatase 113 (39-117) U/L Total Protein 6.8 (6.5-8.0) g/dL Albumin 3.9 (3.5-5.0) g/dL Urine Color Urine Appearance Urine pH (5.0-9.0) Ur Specific [place] (1.005-1.025) Urine Protein (Neg-Trace) mg/dL Urine Glucose (UA) (Negative) mg/dL Urine Ketones (Negative) mg/dL Urine Blood (Negative) Urine Nitrite (Negative) Ur Leukocyte Esterase (Negative) Urine RBC (0-2) /HPF Urine WBC (0-5) /HPF Ur Squamous Epith Cells (0-2) /HPF Urine Bacteria (None Seen) Hyaline Casts (0-2) /LPF COVID-19 (MARIELENA) (Negative) COVID-19 Clin Com 08/13/22 08/13/22 Range/Units 12:06 14:23 WBC (4.8-10.8) X10*3/uL RBC (4.20-5.50) X10*6/uL Hgb (12.0-16.0) g/dl Hct (37.0-47.0) % MCV (80.0-98.0) fL MCH (27.0-33.0) pg MCHC (31.0-35.0) g/dl RDW (11.0-16.0) % Plt Count (160-400) X10*3/uL MPV (9.4-12.3) fL Immature Gran % (Auto) (0.0-0.4) % Neut % (Auto) (45-73) % Lymph % (Auto) (20-40) % [place] % (Auto) (2-11) % Eos % (Auto) (0-4) % Baso % (Auto) (0-2) % Lymph # (Auto) (1.2-4.9) X10*3/uL [place] # (Auto) (0.1-1.2) X10*3/uL Eos # (Auto) (0.0-0.4) X10*3/uL Baso # (Auto) (0.0-0.2) X10*3/uL Abs Immat Gran (auto) (0.00-0.03) X10*3/uL Absolute Neuts (auto) (2.0-8.3) x10*3/uL Absolute Nucleated RBC (0.0-0.012) X10*3/uL Nucleated RBC % (auto) (0.0-0.2) /100WBC Sodium (135-145) mmol/L Potassium (3.3-5.1) mmol/L Chloride (96-108) mmol/L Carbon Dioxide (22-29) mmol/L Anion Gap (12-20) BUN (9-16) mg/dL Creatinine (0.5-1.4) mg/dL Estim Creat Clear Calc Estimated GFR Random Glucose (60-115) mg/dL Lactic Acid (0.5-2.0) mmol/L Calcium (8.4-10.2) mg/dL Magnesium (1.6-2.6) mg/dL Total Bilirubin (0.0-1.0) mg/dL Direct Bilirubin (0.0-0.5) mg/dL AST (5-31) U/L ALT (0-31) U/L Alkaline Phosphatase (39-117) U/L Total Protein (6.5-8.0) g/dL Albumin (3.5-5.0) g/dL Urine Color Dark Yellow Urine Appearance Cloudy Urine pH 5.5 (5.0-9.0) Ur Specific [place] 1.015 (1.005-1.025) Urine Protein 300 (3+) H (Neg-Trace) mg/dL Urine Glucose (UA) Negative (Negative) mg/dL Urine Ketones Negative (Negative) mg/dL Urine Blood Large (3+) H (Negative) Urine Nitrite Positive H (Negative) Ur Leukocyte Esterase Large (3+) H (Negative) Urine RBC >20 H (0-2) /HPF Urine WBC >50 H (0-5) /HPF Ur Squamous Epith Cells 0-2 (0-2) /HPF Urine Bacteria 4+ (None Seen) Hyaline Casts 3-5 (0-2) /LPF COVID-19 (MARIELENA) Negative (Negative) COVID-19 Clin Com See Note Critical Care Time Critical Care Time Critical Care Time: Yes Total Critical Care Time: 39 Attestation: I have personally provided critical care time exclusive of time spent on separately billable procedures. Time includes review of lab data, radiology results, discussion with consultants, and monitoring for potential decompensation. Intervention performed as documented. Discharge Plan Discharge Clinical Impression: UTI (urinary tract infection), Sepsis Patient Disposition: Admitted As Inpatient
[2022-08-13] MEDS: 0.9 % Sodium Chloride 1,000 ML 999 ML IVCONT ×2 (11:50→16:21)
[2022-08-13 11:54] LABS: MANUAL DIFF FLAG NO
[2022-08-13 11:56] LABS: Basophils Percent Auto 0.1 % (0-2); Hematocrit 42.2 % (37.0-47.0); Hemoglobin 13.4 g/dl (12.0-16.0); Imm Gran Abs Auto 0.04 X10*3/uL (0.00-0.03); Imm Gran Pct Auto 0.3 % (0.0-0.4); Lymphocytes Absolute Auto 0.8 X10*3/uL (1.2-4.9); Lymphocytes Percent Auto 5.4 % (20-40); Mean Corpuscular HGB Conc 31.8 g/dl (31.0-35.0); Mean Corpuscular Hemoglobin 27.9 pg (27.0-33.0); Mean Corpuscular Volume 87.7 fL (80.0-98.0); Mean Platelet Volume 9.8 fL (9.4-12.3); Monocytes Absolute Auto 1.1 X10*3/uL (0.1-1.2); Monocytes Percent Auto 7.1 % (2-11); Neutrophils Percent Auto 87.1 % (45-73); Platelet Count 402 X10*3/uL (160-400); Red Blood Count 4.81 X10*6/uL (4.20-5.50); White Blood Count 14.9 X10*3/uL (4.8-10.8)
[2022-08-13] MEDS: cefTRIAXone sodium 1 GM in 0.9 % Sodium Chloride 50 ML IV (12:12)
[2022-08-13 12:14] LABS: Lactic Acid 1.1 mmol/L (0.5-2.0)
[2022-08-13 12:22] LABS: Alanine Aminotransferase 15 U/L (0-31); Albumin Level 3.9 g/dL (3.5-5.0); Alkaline Phosphatase 113 U/L (39-117); Anion Gap 12 (12-20); Aspartate Amino Transferase 23 U/L (5-31); Bilirubin Direct 0.3 mg/dL (0.0-0.5); Blood Urea Nitrogen 24 mg/dL (9-16); Calcium 9.4 mg/dL (8.4-10.2); Carbon Dioxide 25 mmol/L (22-29); Chloride 100 mmol/L (96-108); Creatinine Clr Calc Pharmacy 54.4; Estimated Glomerular Filt Rate > 60; Glucose Random 111 mg/dL (60-115); Magnesium 1.8 mg/dL (1.6-2.6); Potassium 4.2 mmol/L (3.3-5.1); Sodium 133 mmol/L (135-145); Total Protein 6.8 g/dL (6.5-8.0)
[2022-08-13 12:26] LABS: COVID-19 Test Negative (Negative); IDNOW Serial# 16C4AD1C
[2022-08-13 13:47] VITALS: BP 148/78; PULSE 103; RESP 19; TEMP 37.2; O2SAT 97
[2022-08-13 14:40] LABS: Appearance Urine Cloudy; Color Urine Dark Yellow; Glucose Urine UA Negative (Negative); Leukocyte Esterase Urine Large (3+) (Negative); Nitrite Urine Positive (Negative); PH 5.5 (5.0-9.0); Specific Gravity - Urine 1.015 (1.005-1.025); UMIC TRIGGER UACC YES; Urine Blood Large (3+) (Negative); Urine Ketones Negative (Negative); Urine Protein 300 (3+) mg/dL (Neg-Trace)
[2022-08-13 14:51] LABS: Bacteria Urine 4+ (None Seen); RBC Urine >20 /HPF (0-2); Squamous Epithelial Cell Urine 0-2 /HPF (0-2); UACC Culture Trigger YES; WBC Urine >50 /HPF (0-5)
--- NOTE | 2022-08-13 15:49 | PHA.MEDREC ---
Pharmacy Consult ? Medication Reconciliation Pharmacy has completed the medication reconciliation. Utilized japanese interpreter services.
--- NOTE | 2022-08-13 16:18 | PM.IMHP ---
History of Present Illness Date of Service: 08/13/22 Attending physician on admission: Hoa Thompson Chief Complaint: uti/sepsis 77-year-old female with a history of recurrent bladder cancer s/p BCG recently rediagnosed who presents to the ER for evaluation of difficulty urinating, dysuria and left lower quadrant and pelvic pain-as per the patient she has on and off dysuria symptoms from long time and had a cystoscopy 2 days back-as per urology notes:?papillary tumor and erythematous flat changes posterior wall, question of urethral erythema and was given doxycycline for that and went home and she continued to have pain which more seems like chronic, but on top of that patient is having fever and leukocytosis, abnormal UA so in the ED-patient admission was requested for sepsis secondary to UTI. In further discussion with urologist: Patient had cystoscopy: And patient did not do well with p.o. antibiotic so recommended IV antibiotics presently, of note patient is also due for bladder surgery coming week. Patient denies any chest pain or cough or phlegm or weakness or numbness or vomiting or diarrhea . Lab imaging reviewed:ua: Shows pyuria and bacteriuria, blood culture did cultures sent CT abdomen: IMPRESSION: 1.? No radiopaque urolith or hydroureteronephrosis. There are bilateral extrarenal kidney pelvises. 2.? There is mild anterior bladder wall thickening. 3.? Colonic diverticulosis without diverticulitis. Review of Systems Review of Systems: as above. [facility] Medical History Bladder mass Hemorrhoids with complication Hemorrhoids with complication Malignant neoplasm of urinary bladder UTI (urinary tract infection) Family History Father No problems noted. Mother Diabetes Brother Lung cancer Daughter Diabetes Surgical History History of esophagogastroduodenoscopy (EGD) History of hysterectomy with bilateral oophorectomy Hx of colonoscopy (01/17/19) Social History Household Members: Spouse Housing: Apartment Alcohol intake: former Patient Tobacco Use Status: Former Tobacco user Cigarettes Per Day: 3 Years Smoked: 55 Advance Directives: No Current occupation: rt handed [employer] Allergies Allergy/AdvReac Type Severity Reaction Status Date / Time aspirin [ASA] Allergy Intermediate RASH Verified 08/11/22 11:50 ibuprofen [Ibuprofen] Allergy Intermediate RASH Verified 08/11/22 11:50 morphine [MORPHINE] Allergy Intermediate ITCHING Verified 08/11/22 11:50 naproxen [From NAPROSYN] Allergy Intermediate RASH,N/V Verified 08/11/22 11:50 oxycodone [OXYCODONE] Allergy Intermediate NAUSEA & Verified 08/11/22 11:50 VOMITING, RASH Active Medications: Current Medications Albuterol/Ipratropium (Albuterol/Iprat 2.5/0.5mg 3 Ml Ampul.Neb) 3 ml INHALE RQ4H WHILE AWAKE [facility] Albuterol/Ipratropium (Albuterol/Iprat 2.5/0.5mg 3 Ml Ampul.Neb) 3 ml INHALE Q3H PRN PRN Reason: sob Enoxaparin Sodium (Enoxaparin Sodium 40 Mg/0.4 Ml Syringe) 40 mg SUBCUT DAILY [facility] Levofloxacin (Levaquin) 750 mg in 150 mls @ 100 mls/hr IV ONCE ONE Stop: 08/13/22 17:04 Ampicillin Sodium 1 gm/ Sodium (Chloride) 100 mls @ 200 mls/hr IV Q6H [facility] Levofloxacin (Levaquin) 750 mg in 150 mls @ 100 mls/hr IV Q24H [facility] Pharmacy Consult (Consult Rx Perform Med Rec) 1 each MISCELLANE ONCE PRN PRN Reason: Consult order Sodium Chloride (0.9 % Sodium Chloride Flush 3 Ml Syringe) 3 ml IVFLUSH QSHIFT [facility] Home Medications Medication Instructions Recorded Confirmed Last Taken Type albuterol sulfate 90 mcg/actuation 2 puff inhalation Q4-6H PRN 06/24/20 07/06/22 Unknown History aerosol inhaler Shortness Of Breath Or Wheezing hydroxyzine HCl 25 mg tablet 25 mg PO QID PRN Anxiety 06/24/20 07/06/22 Unknown History aspirin 81 mg tablet,delayed 81 mg PO DAILY 12/21/20 07/06/22 Unknown History release cholecalciferol (vitamin D3) 50 50 mcg PO DAILY 06/04/21 07/06/22 Unknown History mcg (2,000 unit) capsule ipratropium 20 mcg-albuterol 100 1 puff PO QID PRN Shortness Of 06/04/21 07/06/22 Unknown History mcg/actuation mist for inhalation Breath Or Wheezing (Combivent Respimat) pravastatin 40 mg tablet 40 mg PO DAILY 06/04/21 07/06/22 Unknown History lisinopril 10 mg tablet 15 mg PO DAILY 03/09/22 07/06/22 08/12/22 History omeprazole 40 mg capsule,delayed 20 mg PO BID PRN Acid Reflux 03/09/22 07/06/22 Unknown History release linaclotide 145 mcg capsule 145 mcg PO DAILY 05/31/22 07/06/22 Unknown History (Linzess) estradiol 0.01% (0.1 mg/gram) 1 appl vaginal MOWEFR@0900 07/25/22 Unknown History vaginal cream acetaminophen 325 mg tablet 650 mg PO QID PRN Headache 08/13/22 Unknown History (Tylenol) albuterol sulfate 2.5 mg/3 mL 3 ml inhalation Q6H PRN Shortness 08/13/22 Unknown History (0.083 %) solution for nebulization Of Breath Or Wheezing hydrocortisone 2.5 % topical cream 1 appl [place] BID-QID PRN hemorrhoids 08/13/22 Unknown History with perineal applicator (Proctosol HC) Physical Exam Vital Signs and Narrative: Vital Signs: Last Vital Signs Temp 98.9 F 08/13/22 13:47 Pulse 103 H 08/13/22 13:47 Resp 19 08/13/22 13:47 BP 148/78 H 08/13/22 13:47 Pulse Ox 97 08/13/22 13:47 O2 Del Method 08/13/22 13:47 BMI result Body Mass Index 25.4 Appearance: Alert.? Oriented X3.? not in distress.? Eyes: Pupils equal, round and reactive to light.? Sclera nonicteric.? ENT: Pharynx normal.? Moist mucous membranes. cvs: rrr, [id number] . res: clear to auscultation ,no rhonchii or wheezing abd: no rebound or guarding ,suprpubic discomfort, bs present. : no cva tenderness ext pulses present , no cyanosis . neuro: axo3 , nonfocal. Results Labs CBC and Chem 7: 08/13/22 11:45 08/13/22 11:45 Labs: Laboratory Results - last 24 hr 08/13/22 08/13/22 08/13/22 11:45 11:45 11:45 MCV 87.7 MCH 27.9 MCHC 31.8 RDW 13.0 Plt Count 402 H MPV 9.8 Immature Gran % (Auto) 0.3 Neut % (Auto) 87.1 H Lymph % (Auto) 5.4 L [place] % (Auto) 7.1 Eos % (Auto) 0.0 Baso % (Auto) 0.1 Lymph # (Auto) 0.8 L [place] # (Auto) 1.1 Eos # (Auto) 0.0 Baso # (Auto) 0.0 Abs Immat Gran (auto) 0.04 H Absolute Neuts (auto) 13.0 H Absolute Nucleated RBC 0.000 Nucleated RBC % (auto) 0.0 Anion Gap 12 Estim Creat Clear Calc 54.4 Estimated GFR > 60 Random Glucose 111 Lactic Acid 1.1 Calcium 9.4 Magnesium 1.8 Total Bilirubin 1.0 Direct Bilirubin 0.3 AST 23 ALT 15 Alkaline Phosphatase 113 Total Protein 6.8 Albumin 3.9 Urine Color Urine Appearance Urine pH Ur Specific [place] Urine Protein Urine Glucose (UA) Urine Ketones Urine Blood Urine Nitrite Ur Leukocyte Esterase Urine RBC Urine WBC Ur Squamous Epith Cells Urine Bacteria Hyaline Casts COVID-19 (MARIELENA) COVID-19 Clin Com 08/13/22 08/13/22 12:06 14:23 MCV MCH MCHC RDW Plt Count MPV Immature Gran % (Auto) Neut % (Auto) Lymph % (Auto) [place] % (Auto) Eos % (Auto) Baso % (Auto) Lymph # (Auto) [place] # (Auto) Eos # (Auto) Baso # (Auto) Abs Immat Gran (auto) Absolute Neuts (auto) Absolute Nucleated RBC Nucleated RBC % (auto) Anion Gap Estim Creat Clear Calc Estimated GFR Random Glucose Lactic Acid Calcium Magnesium Total Bilirubin Direct Bilirubin AST ALT Alkaline Phosphatase Total Protein Albumin Urine Color Dark Yellow Urine Appearance Cloudy Urine pH 5.5 Ur Specific [place] 1.015 Urine Protein 300 (3+) H Urine Glucose (UA) Negative Urine Ketones Negative Urine Blood Large (3+) H Urine Nitrite Positive H Ur Leukocyte Esterase Large (3+) H Urine RBC >20 H Urine WBC >50 H Ur Squamous Epith Cells 0-2 Urine Bacteria 4+ Hyaline Casts 3-5 COVID-19 (MARIELENA) Negative COVID-19 Clin Com See Note Imaging Radiologist's Impressions: CT/CT abdomen pelvis wo/w IV con IMPRESSION: 1.? No radiopaque urolith or hydroureteronephrosis. There are bilateral extrarenal kidney pelvises. 2.? There is mild anterior bladder wall thickening. 3.? Colonic diverticulosis without diverticulitis. ? Fleischner guidelines were followed. Assessment and Plan (1) Sepsis: Status: Acute (2) Bladder mass: Status: Acute (3) Hematuria: Status: Acute (4) UTI (urinary tract infection): Status: Acute Plan 77-year-old female with a history of recurrent bladder cancer s/p BCG recently rediagnosed who presents to the ER for evaluation of difficulty urinating, dysuria and left lower quadrant and pelvic pain-as per the patient she has on and off dysuria symptoms from long time and had a cystoscopy- UTI/sepsis: 1.UTI/sepsis Patient had fever, leukocytosis, tachycardia qualifies for septic criteria. Abnormal UA, microscopic hematuria CT abdomen-did not show any stone or obstruction Says sepsis exam completed We will start the patient on ampicillin and Levaquin considering recent urological procedure.gentle hydration Urology evaluation 2. History of bladder cancer: ? Possible that recurrent pain is due to bladder cancer related. Pain control with lidocaine patch, Tylenol on currently patient is saying she is not tolerating most pain medication. Plan is possible bladder cancer surgery next week. 3. Severe persistent asthma: Will add DuoNebs, home medical reconciliation is still pending. Spoke to the pharmacist they will be doing it soon 4. Hypertension : Blood pressures so far stable, home medication reconciliation pending 5.hlp: medication reconciliation pending DVT prophylaxis with subQ Lovenox Above management discussed the patient in detail length she understand and in agreement with the above plan, time spent 70 minute, for patient full code. Patient has sepsis/UTI/history of bladder cancer will benefit from IV antibiotic, also cultures are pending so may benefit from 2 midnight stay. Quality Stroke Does the patient have a stroke diagnosis?: No VTE Prior VTE?: No VTE Risk Level:: Medical - moderate - high VTE Device Contraindication: N/A - Device Ordered VTE Drug Contraindication: N/A - Med Ordered
[2022-08-13] MEDS: levoFLOXacin/D5W 750 MG/150 ML PIGGYBACK 100 MG IV (16:22)
[2022-08-13 18:36] VITALS: BP 144/74; PULSE 100; RESP 18; TEMP 37.6; O2SAT 95
[2022-08-13] MEDS: Lidocaine 4 % Patch ADH..PATCH 1 PATCH TRANSDERMA (18:44)
[2022-08-13] MEDS: Ampicillin Sodium 1 GM in 0.9 % Sodium Chloride 100 ML IV (18:45)
[2022-08-13] MEDS: Enoxaparin Sodium 40 MG/0.4 ML SYRINGE SUBCUT (19:27)
[2022-08-13 20:00] VITALS: BP 136/66; PULSE 89; RESP 18; TEMP 37; O2SAT 98
[2022-08-13] MEDS: Albuterol/Iprat 2.5/0.5MG 3 ML AMPUL.NEB INHALE (20:38)
[2022-08-13 20:47] VITALS: PULSE 106; RESP 22; O2SAT 95
[2022-08-13] MEDS: traMADoL HCL 50 MG TABLET 25 MG PO (22:57)
[2022-08-13 23:29] VITALS: BP 139/67; PULSE 95; RESP 18; TEMP 37.2; O2SAT 93
[2022-08-14] VITALS (10 sets, daily range): BP systolic 99–134; BP diastolic 54–85; PULSE 78–112; RESP 13–20; TEMP 36.8–37.2; O2SAT 88–96
[2022-08-14] MEDS: Ampicillin Sodium 1 GM in 0.9 % Sodium Chloride 100 ML IV ×3 (00:08→13:39)
[2022-08-14] MEDS: 0.9 % Sodium Chloride Flush 3 ML SYRINGE IVFLUSH ×2 (00:09→08:17)
[2022-08-14 06:17] LABS: Hematocrit 36.6 % (37.0-47.0); Hemoglobin 11.9 g/dl (12.0-16.0); Mean Corpuscular HGB Conc 32.5 g/dl (31.0-35.0); Mean Corpuscular Hemoglobin 28.3 pg (27.0-33.0); Mean Corpuscular Volume 86.9 fL (80.0-98.0); Mean Platelet Volume 9.7 fL (9.4-12.3); Platelet Count 315 X10*3/uL (160-400); Red Blood Count 4.21 X10*6/uL (4.20-5.50); White Blood Count 11.9 X10*3/uL (4.8-10.8)
[2022-08-14 06:36] LABS: Anion Gap 16 (12-20); Blood Urea Nitrogen 18 mg/dL (9-16); Calcium 8.1 mg/dL (8.4-10.2); Carbon Dioxide 21 mmol/L (22-29); Chloride 107 mmol/L (96-108); Creatinine Clr Calc Pharmacy 57.9; Estimated Glomerular Filt Rate > 60; Glucose Random 100 mg/dL (60-115); Potassium 3.7 mmol/L (3.3-5.1); Sodium 140 mmol/L (135-145)
[2022-08-14] MEDS: Albuterol/Iprat 2.5/0.5MG 3 ML AMPUL.NEB INHALE ×4 (07:45→18:50)
[2022-08-14] MEDS: lisinopriL 5 MG TABLET 15 MG PO (08:11)
[2022-08-14] MEDS: Pravastatin Sodium 40 MG TABLET PO (08:12)
[2022-08-14] MEDS: Cholecalciferol (Vitamin D3) 25 MCG TABLET 50 MCG PO (08:12)
--- NOTE | 2022-08-14 09:51 | PM.UROCN ---
History of Present Illness Consult details Consult date: 08/14/22 Narrative: 77-year-old female with a history of superficial bladder cancer s/p BCG 2019, presents to the ER for evaluation of difficulty urinating, dysuria and left lower quadrant and pelvic pain that started yesterday.? She states she had a fever and feels weak.? She denies any vomiting but she has been nauseous all day today.? She denies any back or flank pain.?She states she has been having difficulty emptying her bladder and is only dribbling small amounts of urine.? It underwood and stings when she does try to urinate. She reports pain is in her suprapubic area and left lower abdominal area.? The pain started yesterday.? Office cysto last week recurrent papillar bladder tumor.? Plan was for cysto/TURBT on Monday. Review of Systems Review of Systems: 10 point ROS negative other than stated in HPI PMFSH Past Medical History Medical History Bladder mass Hemorrhoids with complication Hemorrhoids with complication Malignant neoplasm of urinary bladder UTI (urinary tract infection) Family History Family History Father No problems noted. Mother Diabetes Brother Lung cancer Daughter Diabetes Surgical History Surgical History History of esophagogastroduodenoscopy (EGD) History of hysterectomy with bilateral oophorectomy Hx of colonoscopy (01/17/19) Social History Social History Household Members: Spouse Housing: Apartment Do you presently have visiting nurse or other home services: Yes ([employer]) Alcohol intake: never Patient Tobacco Use Status: Former Tobacco user Cigarettes Per Day: 3 Years Smoked: 55 Smoked in Last 30 Days: No Use of substances other than those prescribed or required for medical reasons: No Currently Displaying Signs/Symptoms of Drug Intoxication Withdrawal: No Have you been hit, kicked, punched, or otherwise hurt by someone within the past year? If so, by whom?: No Do you feel safe in your current relationship?: Yes Is there a partner from a previous relationship who is making you feel unsafe now?: No Are you made to feel afraid or neglected: No Advance Directives: No Do you have thoughts of harming others: None Do you have a plan to hurt others: No Plan Recently lost weight without trying: Unsure Nutrition Risks: No Nutritional Risk Patient : No : No Poor oral hygiene: No service: No Current occupational status: retired Current occupation: rt handed Meds Allergies Allergy/AdvReac Type Severity Reaction Status Date / Time aspirin [ASA] Allergy Intermediate RASH Verified 08/11/22 11:50 ibuprofen [Ibuprofen] Allergy Intermediate RASH Verified 08/11/22 11:50 morphine [MORPHINE] Allergy Intermediate ITCHING Verified 08/11/22 11:50 naproxen [From NAPROSYN] Allergy Intermediate RASH,N/V Verified 08/11/22 11:50 oxycodone [OXYCODONE] Allergy Intermediate NAUSEA & Verified 08/11/22 11:50 VOMITING, RASH Active Medications: Current Medications Acetaminophen (Acetaminophen 325 Mg Tablet) 650 mg PO Q6H [facility] Last Admin: 08/14/22 08:10 Dose: Not Given Albuterol/Ipratropium (Albuterol/Iprat 2.5/0.5mg 3 Ml Ampul.Neb) 3 ml INHALE RQ4H WHILE AWAKE [facility] Last Admin: 08/14/22 07:45 Dose: 3 ml Albuterol/Ipratropium (Albuterol/Iprat 2.5/0.5mg 3 Ml Ampul.Neb) 3 ml INHALE Q3H PRN PRN Reason: sob Aspirin (Aspirin Enteric Coated 81 Mg Tablet.Dr) 81 mg PO DAILY [facility] Last Admin: 08/14/22 08:11 Dose: Not Given Enoxaparin Sodium (Enoxaparin Sodium 40 Mg/0.4 Ml Syringe) 40 mg SUBCUT Q24H [facility] Last Admin: 08/13/22 19:27 Dose: 40 mg Hydrocortisone (Hydrocortisone 2.5 % Rectal Cr 30 Gm Tube) 1 appl [place] QID PRN PRN Reason: hemorrhoids Hydroxyzine HCl (Hydroxyzine Hcl 25 Mg Tablet) 25 mg PO QID PRN PRN Reason: Anxiety Ampicillin Sodium 1 gm/ Sodium (Chloride) 100 mls @ 200 mls/hr IV Q6H [facility] Last Infusion: 08/14/22 05:52 Dose: Infused Levofloxacin (Levaquin) 750 mg in 150 mls @ 100 mls/hr IV Q24H [facility] Lidocaine (Lidocaine 4 % Patch Adh..Patch) 1 patch TRANSDERMA DAILY [facility]; Protocol Last Admin: 08/14/22 08:19 Dose: Not Given Lisinopril (Lisinopril 5 Mg Tablet) 15 mg PO DAILY [facility]; Protocol Last Admin: 08/14/22 08:11 Dose: 15 mg Non-Formulary Medication (Benralizumab [Fasenra]) 30 mg SUBCUT Q8W [facility] Non-Formulary Medication (Estradiol) 1 appl VAGINAL MOWEFR@0900 [facility] Non-Formulary Medication (Linaclotide [Linzess]) 145 mcg PO DAILY [facility] Omeprazole (Omeprazole 20 Mg Capsule.Dr) 20 mg PO BID PRN PRN Reason: Acid Reflux Pharmacy Consult (Consult Rx Perform Med Rec) 1 each MISCELLANE ONCE PRN PRN Reason: Consult order Phenazopyridine HCl (Phenazopyridine Hcl 200 Mg Tablet) 200 mg PO Q8H PRN PRN Reason: pain with urination Pravastatin Sodium (Pravastatin Sodium 40 Mg Tablet) 40 mg PO DAILY [facility] Last Admin: 08/14/22 08:12 Dose: 40 mg Sodium Chloride (0.9 % Sodium Chloride Flush 3 Ml Syringe) 3 ml IVFLUSH QSHIFT [facility] Last Admin: 08/14/22 08:17 Dose: 3 ml Vitamin D (Cholecalciferol (Vitamin D3) 25 Mcg Tablet) 50 mcg PO DAILY [facility] Last Admin: 08/14/22 08:12 Dose: 50 mcg Home Medications Medication Instructions Recorded Confirmed Last Taken Type albuterol sulfate 90 mcg/actuation 2 puff inhalation Q4-6H PRN 06/24/20 08/13/22 Unknown History aerosol inhaler Shortness Of Breath Or Wheezing hydroxyzine HCl 25 mg tablet 25 mg PO QID PRN Anxiety 06/24/20 08/13/22 Unknown History aspirin 81 mg tablet,delayed 81 mg PO DAILY 12/21/20 08/13/22 Unknown History release cholecalciferol (vitamin D3) 50 50 mcg PO DAILY 06/04/21 08/13/22 Unknown History mcg (2,000 unit) capsule ipratropium 20 mcg-albuterol 100 1 puff PO QID PRN Shortness Of 06/04/21 08/13/22 Unknown History mcg/actuation mist for inhalation Breath Or Wheezing (Combivent Respimat) pravastatin 40 mg tablet 40 mg PO DAILY 06/04/21 08/13/22 Unknown History lisinopril 10 mg tablet 15 mg PO DAILY 03/09/22 08/13/22 08/12/22 History omeprazole 40 mg capsule,delayed 20 mg PO BID PRN Acid Reflux 03/09/22 08/13/22 Unknown History release linaclotide 145 mcg capsule 145 mcg PO DAILY 05/31/22 08/13/22 Unknown History (Linzess) estradiol 0.01% (0.1 mg/gram) 1 appl vaginal MOWEFR@0900 07/25/22 08/13/22 Unknown History vaginal cream acetaminophen 325 mg tablet 650 mg PO QID PRN Headache 08/13/22 08/13/22 Unknown History (Tylenol) albuterol sulfate 2.5 mg/3 mL 3 ml inhalation Q6H PRN Shortness 08/13/22 08/13/22 Unknown History (0.083 %) solution for nebulization Of Breath Or Wheezing hydrocortisone 2.5 % topical cream 1 appl [place] BID-QID PRN hemorrhoids 08/13/22 08/13/22 Unknown History with perineal applicator (Proctosol HC) Physical Exam Vital Signs: Vital Signs: Last Vital Signs Temp 98.9 F 08/14/22 07:29 Pulse 104 H 08/14/22 07:45 Resp 20 08/14/22 07:45 BP 120/61 08/14/22 07:29 Pulse Ox 92 08/14/22 07:29 O2 Del Method 08/14/22 07:29 BMI result Body Mass Index 25.4 Const: General: cooperative and no acute distress Orientation/consciousness: patient oriented x3 HEENT: Head: Yes normal to inspection, Yes normocephalic and Yes atraumatic Eyes: Conjunctivae: conjunctivae normal Neck: Neck: Yes normal visual inspection and Yes trachea midline Chest: Chest palpation & inspection: normal inspection of the chest Resp: Effort & Inspection: normal respiratory effort Cardio: Rate: regular rate GI: Inspection: Yes normal to inspection Palpation (GI): Soft to palpation : General: No no CVA tenderness Back/Spine/Pelvis: Back: No no CVA tenderness Skin: General skin exam: no rashes or lesions noted Neuro: General: patient oriented x3 Extrem: General: No edema Psych: Appearance: grossly normal Results Labs Result diagrams: 08/14/22 06:07 08/15/22 06:59 Labs: Abnormal lab results 08/13/22 08/13/22 08/13/22 Range/Units 11:45 11:45 14:23 WBC 14.9 H (4.8-10.8) X10*3/uL Hgb (12.0-16.0) g/dl Hct (37.0-47.0) % Plt Count 402 H (160-400) X10*3/uL Neut % (Auto) 87.1 H (45-73) % Lymph % (Auto) 5.4 L (20-40) % Lymph # (Auto) 0.8 L (1.2-4.9) X10*3/uL Abs Immat Gran (auto) 0.04 H (0.00-0.03) X10*3/uL Absolute Neuts (auto) 13.0 H (2.0-8.3) x10*3/uL Sodium 133 L (135-145) mmol/L Carbon Dioxide (22-29) mmol/L BUN 24 H (9-16) mg/dL Calcium (8.4-10.2) mg/dL Urine Protein 300 (3+) H (Neg-Trace) mg/dL Urine Blood Large (3+) H (Negative) Urine Nitrite Positive H (Negative) Ur Leukocyte Esterase Large (3+) H (Negative) Urine RBC >20 H (0-2) /HPF Urine WBC >50 H (0-5) /HPF 08/14/22 08/14/22 Range/Units 06:07 06:07 WBC 11.9 H (4.8-10.8) X10*3/uL Hgb 11.9 L (12.0-16.0) g/dl Hct 36.6 L (37.0-47.0) % Plt Count (160-400) X10*3/uL Neut % (Auto) (45-73) % Lymph % (Auto) (20-40) % Lymph # (Auto) (1.2-4.9) X10*3/uL Abs Immat Gran (auto) (0.00-0.03) X10*3/uL Absolute Neuts (auto) (2.0-8.3) x10*3/uL Sodium (135-145) mmol/L Carbon Dioxide 21 L (22-29) mmol/L BUN 18 H (9-16) mg/dL Calcium 8.1 L D (8.4-10.2) mg/dL Urine Protein (Neg-Trace) mg/dL Urine Blood (Negative) Urine Nitrite (Negative) Ur Leukocyte Esterase (Negative) Urine RBC (0-2) /HPF Urine WBC (0-5) /HPF Short CBC 08/13/22 08/14/22 Range/Units 11:45 06:07 WBC 14.9 H 11.9 H (4.8-10.8) X10*3/uL Hgb 13.4 11.9 L (12.0-16.0) g/dl Hct 42.2 36.6 L (37.0-47.0) % Plt Count 402 H 315 (160-400) X10*3/uL BMP 08/13/22 08/14/22 11:45 06:07 Sodium 133 L 140 Potassium 4.2 3.7 Chloride 100 107 Carbon Dioxide 25 21 L BUN 24 H 18 H Creatinine 0.83 0.78 Calcium 9.4 8.1 L D Liver Function 08/13/22 Range/Units 11:45 Total Bilirubin 1.0 (0.0-1.0) mg/dL Direct Bilirubin 0.3 (0.0-0.5) mg/dL AST 23 (5-31) U/L ALT 15 (0-31) U/L Alkaline Phosphatase 113 (39-117) U/L Albumin 3.9 (3.5-5.0) g/dL Urine 08/13/22 Range/Units 14:23 Urine Color Dark Yellow Urine Appearance Cloudy Urine pH 5.5 (5.0-9.0) Ur Specific [place] 1.015 (1.005-1.025) Urine Protein 300 (3+) H (Neg-Trace) mg/dL Urine Glucose (UA) Negative (Negative) mg/dL Imaging Abdomen CT scan report/results: report reviewed and image reviewed CT scan - pelvis: report reviewed and image reviewed Additional studies: Date of Service: 07/27/22 CT ABDOMEN AND PELVIS WITHOUT AND WITH CONTRAST? CLINICAL INFORMATION: Dysuria? COMPARISON: None? FINDINGS: LUNG BASES: The visualized lung bases are unremarkable. There is a small hiatal hernia. LIVER, GALLBLADDER, AND BILIARY TREE: The liver is normal in size, shape, and attenuation. No focal hepatic lesion or biliary ductal dilatation is present. There is pneumobilia predominantly in the left hepatic lobe. The gallbladder has been surgically removed.? PANCREAS: Unremarkable? SPLEEN: Unremarkable? ADRENAL GLANDS: Unremarkable? KIDNEYS AND URETERS: The kidneys are normal in size, shape, and attenuation. No radiopaque renal calculi visualized. Postcontrast, both kidney nephrograms are symmetrical. Left kidney measures 10.6 cm in length and right kidney measures 10.3 cm in length. There is no enhancing renal mass. There are bilateral extrarenal kidney pelvises.? BLADDER: There is mild anterior bladder wall thickening. No enhancing lesion or radiopaque calculi seen. GASTROINTESTINAL TRACT: There is scattered stool, diverticula and gas seen throughout the colon without distention. The small-bowel loops are normal caliber. The appendix is normal caliber. No inflammatory process seen in the abdomen or pelvis.? ABDOMINAL WALL: A small umbilical hernia containing fat is noted.? LYMPH NODES: No abnormal size retroperitoneal pelvic lymph nodes seen. VASCULAR: Unremarkable PELVIC VISCERA: Unremarkable? OSSEOUS STRUCTURES: Moderate levoscoliosis. There are wedge deformities of all lumbar vertebrae with bridging osteophytes in the right, in the upper and mid lumbar spine. No aggressive lytic or sclerotic process seen.? IMPRESSION: 1.? No radiopaque urolith or hydroureteronephrosis. There are bilateral extrarenal kidney pelvises. 2.? There is mild anterior bladder wall thickening. 3.? Colonic diverticulosis without diverticulitis. Assessment and Plan (1) Sepsis: Status: Acute (2) Bladder mass: Status: Acute (3) Hematuria: Status: Acute (4) UTI (urinary tract infection): Status: Acute Plan 77-year-old female with a history of recurrent bladder cancer had office cysto noting recurrent papillary bladder tumor 1.UTI/sepsis on [employer] IV Abx 2. Recurrent papillary bladder tumor sched'd for TURBT next week Procedures Date of Service Date of Service: 08/14/22
--- NOTE | 2022-08-14 13:10 | P.PNIM_ITS ---
Subjective Subjective Date of Service: 08/14/22 Interval History: uti/sepsis/bladder cancer Review of Systems Dysuria somewhat improving, bladder pain is also improving. no fevers tachycardia slowly improving Physical Exam Vital Signs: Vital Signs: Last Vital Signs Temp 98.4 F 08/14/22 11:52 Pulse 102 H 08/14/22 11:52 Resp 16 08/14/22 11:52 BP 99/54 L 08/14/22 11:52 Pulse Ox 95 08/14/22 11:52 O2 Del Method 08/14/22 11:52 BMI result Body Mass Index 25.4 Appearance: Alert.? Oriented X3.? not in distress.? cvs: rrr, [id number] . res: clear to auscultation ,no rhonchii or wheezing abd: no rebound or guarding ,suprpubic discomfort, bs present. : no cva tenderness ext pulses present , no cyanosis . neuro: axo3 , nonfocal. Objective Data Active Medications Acetaminophen (Acetaminophen 325 Mg Tablet) 650 mg PO Q6H [facility] Last Admin: 08/14/22 08:10 Dose: Not Given Documented By: JASWINDER Non-Admin Reason: Patient Refused Albuterol/Ipratropium (Albuterol/Iprat 2.5/0.5mg 3 Ml Ampul.Neb) 3 ml INHALE RQ4H WHILE AWAKE [facility] Last Admin: 08/14/22 11:00 Dose: 3 ml Documented By: YELENA Albuterol/Ipratropium (Albuterol/Iprat 2.5/0.5mg 3 Ml Ampul.Neb) 3 ml INHALE Q3H PRN PRN Reason: sob Aspirin (Aspirin Enteric Coated 81 Mg Tablet.) 81 mg PO DAILY [facility] Last Admin: 08/14/22 08:11 Dose: Not Given Documented By: JASWINDER Non-Admin Reason: Patient Refused Enoxaparin Sodium (Enoxaparin Sodium 40 Mg/0.4 Ml Syringe) 40 mg SUBCUT Q24H [facility] Last Admin: 08/13/22 19:27 Dose: 40 mg Documented By: SALEEM Hydrocortisone (Hydrocortisone 2.5 % Rectal Cr 30 Gm Tube) 1 appl [place] QID PRN PRN Reason: hemorrhoids Hydroxyzine HCl (Hydroxyzine Hcl 25 Mg Tablet) 25 mg PO QID PRN PRN Reason: Anxiety Ampicillin Sodium 1 gm/ Sodium (Chloride) 100 mls @ 200 mls/hr IV Q6H [facility] Last Infusion: 08/14/22 05:52 Dose: 0 mls/hr Documented By: ASHLEIGH Levofloxacin (Levaquin) 750 mg in 150 mls @ 100 mls/hr IV Q24H [facility] Lidocaine (Lidocaine 4 % Patch Adh..Patch) 1 patch TRANSDERMA DAILY [facility]; Protocol Last Admin: 08/14/22 08:19 Dose: Not Given Documented By: JASWINDER Non-Admin Reason: Patient Refused Lisinopril (Lisinopril 5 Mg Tablet) 15 mg PO DAILY [facility]; Protocol Last Admin: 08/14/22 08:11 Dose: 15 mg Documented By: JASWINDER Non-Formulary Medication (Benralizumab [Fasenra]) 30 mg SUBCUT Q8W [facility] Non-Formulary Medication (Estradiol) 1 appl VAGINAL MOWEFR@0900 [facility] Non-Formulary Medication (Linaclotide [Linzess]) 145 mcg PO DAILY [facility] Omeprazole (Omeprazole 20 Mg Capsule.Dr) 20 mg PO BID PRN PRN Reason: Acid Reflux Pharmacy Consult (Consult Rx Perform Med Rec) 1 each MISCELLANE ONCE PRN PRN Reason: Consult order Phenazopyridine HCl (Phenazopyridine Hcl 200 Mg Tablet) 200 mg PO Q8H PRN PRN Reason: pain with urination Pravastatin Sodium (Pravastatin Sodium 40 Mg Tablet) 40 mg PO DAILY [facility] Last Admin: 08/14/22 08:12 Dose: 40 mg Documented By: JASWINDER Sodium Chloride (0.9 % Sodium Chloride Flush 3 Ml Syringe) 3 ml IVFLUSH QSHIFT [facility] Last Admin: 08/14/22 08:17 Dose: 3 ml Documented By: JASWINDER Vitamin D (Cholecalciferol (Vitamin D3) 25 Mcg Tablet) 50 mcg PO DAILY [facility] Last Admin: 08/14/22 08:12 Dose: 50 mcg Documented By: JASWINDER Labs CBC & Chem 7: 08/14/22 06:07 08/14/22 06:07 Labs: Laboratory Results - last 24 hr 08/13/22 08/14/22 08/14/22 14:23 06:07 06:07 MCV 86.9 MCH 28.3 MCHC 32.5 RDW 13.0 Plt Count 315 MPV 9.7 Absolute Nucleated RBC 0.000 Nucleated RBC % (auto) 0.0 Anion Gap 16 Estim Creat Clear Calc 57.9 Estimated GFR > 60 Random Glucose 100 Calcium 8.1 L D Urine Color Dark Yellow Urine Appearance Cloudy Urine pH 5.5 Ur Specific [place] 1.015 Urine Protein 300 (3+) H Urine Glucose (UA) Negative Urine Ketones Negative Urine Blood Large (3+) H Urine Nitrite Positive H Ur Leukocyte Esterase Large (3+) H Urine RBC >20 H Urine WBC >50 H Ur Squamous Epith Cells 0-2 Urine Bacteria 4+ Hyaline Casts 3-5 Microbiology Microbiology Results: Microbiology 08/13/22 Unknown Urine Culture - Preliminary Urine Catheterized - Kelly Catheter Culture in progress. Assessment and Plan (1) UTI (urinary tract infection): Status: Acute (2) Sepsis: Status: Acute (3) Bladder mass: Status: Acute Plan 77-year-old female with a history of recurrent bladder cancer s/p BCG recently rediagnosed who presents to the ER for evaluation of difficulty urinating, dy suria and left lower quadrant and pelvic pain-as per the patient she has on and off dysuria symptoms from long time and had a cystoscopy- UTI/sepsis: 1.UTI/sepsis Patient had fever, leukocytosis, tachycardia qualifies for septic criteria.? Abnormal UA, microscopic hematuria CT abdomen-did not show any stone or obstruction Urine and blood culture pending. We will start the patient on ampicillin and Levaquin considering recent urological procedure.gentle hydration Urology evaluation-continue IV antibiotic,TUBRT next week 2. History of bladder cancer: ?? Possible that recurrent pain is due to bladder cancer related.? Pain control with lidocaine patch, Tylenol on currently patient is saying she is not tolerating most pain medication. Plan is possible bladder cancer surgery next week. 3. Severe persistent asthma: continue DuoNebs, home meds. 4. Hypertension : Blood pressures so far stable, home medication. 5.hlp: continue medication. DVT prophylaxis with subQ Lovenox ongoing inpatient hospitalization stay: sepsis/UTI/history of bladder cancer will benefit from IV antibiotic, also cultures pending , possible bladder cancer surgery next week. Quality Stroke Does the patient have a stroke diagnosis?: No VTE Prior VTE?: No VTE Risk Level:: Medical - moderate - high VTE Device Contraindication: N/A - Device Ordered VTE Drug Contraindication: N/A - Med Ordered
--- NOTE | 2022-08-14 13:18 | MHC.CM.PN ---
Interview conducted w.patient's : patient lives w/. Previous equipment owned ( reports broken and not usable): raised toilet seat w/rails, rolling walker and shower chair; all reportedly broken. No prior formal VNA services; [facility] nurse comes to the house monthly for a well-visit, but no other in-home services. Patient does not drive, drives her where she needs to go. Plan is home w/ (? VNA) and potentially new equipment? CM to follow.
--- NOTE | 2022-08-14 15:20 | PHA.PROG ---
Admission Date/Time: August 13, 2022 16:09 Indication:BACTEREMIA Weight in k.4 kg Adjusted body weight in Kg: [place] body weight in Kg: Obesity Dosing Indication % IBW: Serum Creatinine - Last 168 Hours 08/13/22 08/14/22 11:45 06:07 Creatinine 0.83 0.78 Estimated CrCl and GFR - Last 168 Hours 08/13/22 08/14/22 11:45 06:07 Estim Creat Clear Calc 54.4 57.9 Estimated GFR > 60 > 60 Vancomycin Loading Dose: 1500 MG Current Vancomycin Dosing Regimen: 1250MG Q24H Vancomycin Monitoring using AUC goal of 400 - 600 range with trough as surrogate marker: AUC 540, TROUGH 16.1 Date and Time for next Vancomycin Level to be drawn: RANDOM 08/16@1400 Pharmacist Comments on Vancomycin Plan: Vancomycin dosing will take advantage of [employer] as a clinical decision support tool that uses Bayesian modeling to calculate individual patient's pharmacokinetic parameters and forecast the patient's drug concentration time course with the target goal AUC 24 range of 400 - 600 mg/L/hr.
[2022-08-14] MEDS: vancomycin HCL 1,500 MG in 0.9 % Sodium Chloride 500 ML 333.33 MG IV (15:37)
[2022-08-14] MEDS: Lactated Ringers 1,000 ML 80 ML IVCONT (15:39)
[2022-08-14] MEDS: levoFLOXacin/D5W 750 MG/150 ML PIGGYBACK 100 MG IV (17:40)
[2022-08-14] MEDS: Enoxaparin Sodium 40 MG/0.4 ML SYRINGE SUBCUT (20:14)
[2022-08-15] VITALS (8 sets, daily range): BP systolic 113–158; BP diastolic 59–76; PULSE 88–111; RESP 16–20; TEMP 36.3–36.9; O2SAT 93–98
[2022-08-15] MEDS: Lactated Ringers 1,000 ML 100 ML IVCONT ×2 (04:14→21:12)
[2022-08-15] MEDS: Albuterol/Iprat 2.5/0.5MG 3 ML AMPUL.NEB INHALE ×3 (07:23→18:46)
[2022-08-15 07:48] LABS: Creatinine Clr Calc Pharmacy 54.4; Estimated Glomerular Filt Rate > 60
[2022-08-15] MEDS: Pravastatin Sodium 40 MG TABLET PO (08:57)
[2022-08-15] MEDS: Aspirin Enteric Coated 81 MG TABLET.DR PO (08:57)
[2022-08-15] MEDS: lisinopriL 5 MG TABLET 15 MG PO (08:57)
[2022-08-15] MEDS: Cholecalciferol (Vitamin D3) 25 MCG TABLET 50 MCG PO (09:04)
--- NOTE | 2022-08-15 10:14 | HE.PHANOTE ---
FRANCISCO SALDANA CONTINUE CURRENT DOSE, NEXT TROUGH DUE 08/16 @1400 JONATHAN
--- NOTE | 2022-08-15 13:09 | MHC.CM.PN ---
per rounds pt not ready for dc plan reman ins home with and possible vna servceis
--- NOTE | 2022-08-15 15:09 | P.PNIM_ITS ---
Subjective Subjective Date of Service: 08/15/22 Interval History: UTI/sepsis/bladder cancer Review of Systems Patient still has significant dysuria, denies any fever or chills or nausea or vomiting. Physical Exam Vital Signs: Vital Signs: Last Vital Signs Temp 98.3 F 08/15/22 11:24 Pulse 111 H 08/15/22 11:24 Resp 20 08/15/22 11:24 BP 119/68 08/15/22 11:24 Pulse Ox 93 08/15/22 11:24 O2 Del Method 08/15/22 11:24 BMI result Body Mass Index 25.4 Appearance: Alert.? Oriented X3.? not in distress.? cvs: rrr, [id number] . res: clear to auscultation ,no rhonchii or wheezing abd: no rebound or guarding ,suprpubic discomfort, bs present. : no cva tenderness ext pulses present , no cyanosis . neuro: axo3 , nonfocal. Objective Data Active Medications Acetaminophen (Acetaminophen 325 Mg Tablet) 650 mg PO Q6H [facility] Last Admin: 08/15/22 11:56 Dose: Not Given Documented By: BETH Non-Admin Reason: Patient Refused Albuterol/Ipratropium (Albuterol/Iprat 2.5/0.5mg 3 Ml Ampul.Neb) 3 ml INHALE RQ4H WHILE AWAKE [facility] Last Admin: 08/15/22 10:57 Dose: 3 ml Documented By: YELENA Albuterol/Ipratropium (Albuterol/Iprat 2.5/0.5mg 3 Ml Ampul.Neb) 3 ml INHALE Q3H PRN PRN Reason: sob Aspirin (Aspirin Enteric Coated 81 Mg Tablet.) 81 mg PO DAILY [facility] Last Admin: 08/15/22 08:57 Dose: 81 mg Documented By: BETH Enoxaparin Sodium (Enoxaparin Sodium 40 Mg/0.4 Ml Syringe) 40 mg SUBCUT Q24H [facility] Last Admin: 08/14/22 20:14 Dose: 40 mg Documented By: ASHLEIGH Hydrocortisone (Hydrocortisone 2.5 % Rectal Cr 30 Gm Tube) 1 appl NC QID PRN PRN Reason: hemorrhoids Hydroxyzine HCl (Hydroxyzine Hcl 25 Mg Tablet) 25 mg PO QID PRN PRN Reason: Anxiety Levofloxacin (Levaquin) 750 mg in 150 mls @ 100 mls/hr IV Q24H [facility] Last Infusion: 08/14/22 20:06 Dose: 0 mls/hr Documented By: ASHLEIGH Lactated Ringer's (Lr) 1,000 mls @ 80 mls/hr IVCONT .[id number] [facility] Last Admin: 08/15/22 04:14 Dose: 100 mls/hr Documented By: ASHLEIGH Vancomycin HCl 1,250 mg/ (Sodium Chloride) 250 mls @ 166.667 mls/hr IV Q24H [facility] Lidocaine (Lidocaine 4 % Patch Adh..Patch) 1 patch TRANSDERMA DAILY [facility]; Protocol Last Admin: 08/15/22 10:37 Dose: Not Given Documented By: BETH Non-Admin Reason: Patient Refused Lisinopril (Lisinopril 5 Mg Tablet) 15 mg PO DAILY [facility]; Protocol Last Admin: 08/15/22 08:57 Dose: 15 mg Documented By: BETH Non-Formulary Medication (Benralizumab [Fasenra]) 30 mg SUBCUT Q8W [facility] Non-Formulary Medication (Estradiol) 1 appl VAGINAL MOWEFR@0900 [facility] Non-Formulary Medication (Linaclotide [Linzess]) 145 mcg PO DAILY [facility] Omeprazole (Omeprazole 20 Mg Capsule.Dr) 20 mg PO BID PRN PRN Reason: Acid Reflux Pharmacy Consult (Consult Rx Perform Med Rec) 1 each MISCELLANE ONCE PRN PRN Reason: Consult order Pharmacy Consult (Consult Rx Vancomycin Dosing) 1 each MISCELLANE DAILY PRN PRN Reason: Consult order Phenazopyridine HCl (Phenazopyridine Hcl 200 Mg Tablet) 200 mg PO Q8H PRN PRN Reason: pain with urination Pravastatin Sodium (Pravastatin Sodium 40 Mg Tablet) 40 mg PO DAILY [facility] Last Admin: 08/15/22 08:57 Dose: 40 mg Documented By: BETH Sodium Chloride (0.9 % Sodium Chloride Flush 3 Ml Syringe) 3 ml IVFLUSH QSHIFT [facility] Last Admin: 08/15/22 09:34 Dose: Not Given Documented By: BETH Non-Admin Reason: IV Running Vitamin D (Cholecalciferol (Vitamin D3) 25 Mcg Tablet) 50 mcg PO DAILY [facility] Last Admin: 08/15/22 09:04 Dose: 50 mcg Documented By: BETH Labs CBC & Chem 7: 08/14/22 06:07 08/15/22 06:59 Labs: Laboratory Results - last 24 hr 08/15/22 06:59 Estim Creat Clear Calc 54.4 Estimated GFR > 60 Microbiology Microbiology Results: Microbiology 08/13/22 12:06 Blood Culture - Preliminary Blood - Venous No growth after 48 hours. 08/13/22 Unknown Urine Culture - Preliminary Urine Catheterized - Kelly Catheter Gram negative cecilia Enterococcus/Streptococcus sp 08/13/22 11:45 Blood Culture - Final Blood - Venous Coag negative Staphylococcus Assessment and Plan (1) UTI (urinary tract infection): Status: Acute (2) Sepsis: Status: Acute (3) Bladder mass: Status: Acute Plan 77-year-old female with a history of recurrent bladder cancer s/p BCG recently rediagnosed who presents to the ER for evaluation of difficulty urinating, dy suria and left lower quadrant and pelvic pain-as per the patient she has on and off dysuria symptoms from long time and had a cystoscopy- UTI/sepsis: 1.UTI/sepsis Patient no fever, leukocytosis improvin, mild tachycardia .? Abnormal UA, microscopic hematuria CT abdomen-did not show any stone or obstruction Urine and blood culture pending. We will start the patient on ampicillin and Levaquin considering recent urological procedure.gentle hydration Urology evaluation-continue IV antibiotic,TUBRT 2. History of bladder cancer: ?? Possible that recurrent pain is due to bladder cancer related.? Pain control with lidocaine patch, Tylenol on currently patient is saying she is not tolerating most pain medication. 3. Severe persistent asthma: continue? DuoNebs, home meds. 4. Hypertension : Blood pressures so far stable, home medication. 5.hlp: continue medication. DVT prophylaxis with subQ Lovenox ongoing inpatient hospitalization stay:? sepsis/UTI/history of bladder cancer will benefit from IV antibiotic, also cultures pending , possible bladder cancer surgery . Quality Stroke Does the patient have a stroke diagnosis?: No VTE Prior VTE?: No VTE Risk Level:: Medical - moderate - high VTE Device Contraindication: N/A - Device Ordered VTE Drug Contraindication: N/A - Med Ordered
--- NOTE | 2022-08-15 15:40 | W.PM.IDCN ---
History of Present Illness Data of Consult Service Date: 08/15/22 Requesting physician: Hoa Thompson Primary Care Provider: Angeline Klein MD HPI Reason for consult: urinary source infection She presents with 6/10 abdominal pain as well as incontinence of urine suddenly. She was told she needs Urology to evaluate any possible bladder mass Review of Systems Review of Systems: Yes all other systems are reviewed and are negative PMFSH Past Medical History Medical History Bladder mass Hemorrhoids with complication Hemorrhoids with complication Malignant neoplasm of urinary bladder UTI (urinary tract infection) Family History Family History Father No problems noted. Mother Diabetes Brother Lung cancer Daughter Diabetes Family history: reviewed and not pertinent Surgical History Surgical History History of esophagogastroduodenoscopy (EGD) History of hysterectomy with bilateral oophorectomy Hx of colonoscopy (01/17/19) Social History Social History Household Members: Spouse Housing: Apartment Do you presently have visiting nurse or other home services: Yes ([employer]) Alcohol intake: never Patient Tobacco Use Status: Former Tobacco user Cigarettes Per Day: 3 Years Smoked: 55 Smoked in Last 30 Days: No Use of substances other than those prescribed or required for medical reasons: No Currently Displaying Signs/Symptoms of Drug Intoxication Withdrawal: No Have you been hit, kicked, punched, or otherwise hurt by someone within the past year? If so, by whom?: No Do you feel safe in your current relationship?: Yes Is there a partner from a previous relationship who is making you feel unsafe now?: No Are you made to feel afraid or neglected: No Advance Directives: No Do you have thoughts of harming others: None Do you have a plan to hurt others: No Plan Recently lost weight without trying: Unsure Nutrition Risks: No Nutritional Risk Patient : No : No Poor oral hygiene: No service: No Current occupational status: retired Current occupation: rt handed Meds Allergies Allergy/AdvReac Type Severity Reaction Status Date / Time aspirin [ASA] Allergy Intermediate RASH Verified 08/11/22 11:50 ibuprofen [Ibuprofen] Allergy Intermediate RASH Verified 08/11/22 11:50 morphine [MORPHINE] Allergy Intermediate ITCHING Verified 08/11/22 11:50 naproxen [From NAPROSYN] Allergy Intermediate RASH,N/V Verified 08/11/22 11:50 oxycodone [OXYCODONE] Allergy Intermediate NAUSEA & Verified 08/11/22 11:50 VOMITING, RASH Active Medications: Current Medications Acetaminophen (Acetaminophen 325 Mg Tablet) 650 mg PO Q6H [facility] Last Admin: 08/15/22 11:56 Dose: Not Given Albuterol/Ipratropium (Albuterol/Iprat 2.5/0.5mg 3 Ml Ampul.Neb) 3 ml INHALE RQ4H WHILE AWAKE [facility] Last Admin: 08/15/22 10:57 Dose: 3 ml Albuterol/Ipratropium (Albuterol/Iprat 2.5/0.5mg 3 Ml Ampul.Neb) 3 ml INHALE Q3H PRN PRN Reason: sob Aspirin (Aspirin Enteric Coated 81 Mg Tablet.Dr) 81 mg PO DAILY [facility] Last Admin: 08/15/22 08:57 Dose: 81 mg Enoxaparin Sodium (Enoxaparin Sodium 40 Mg/0.4 Ml Syringe) 40 mg SUBCUT Q24H [facility] Last Admin: 08/14/22 20:14 Dose: 40 mg Hydrocortisone (Hydrocortisone 2.5 % Rectal Cr 30 Gm Tube) 1 appl [place] QID PRN PRN Reason: hemorrhoids Hydroxyzine HCl (Hydroxyzine Hcl 25 Mg Tablet) 25 mg PO QID PRN PRN Reason: Anxiety Levofloxacin (Levaquin) 750 mg in 150 mls @ 100 mls/hr IV Q24H [facility] Last Infusion: 08/14/22 20:06 Dose: Infused Lactated Ringer's (Lr) 1,000 mls @ 80 mls/hr IVCONT .[id number] [facility] Last Admin: 08/15/22 04:14 Dose: 100 mls/hr Vancomycin HCl 1,250 mg/ (Sodium Chloride) 250 mls @ 166.667 mls/hr IV Q24H [facility] Cefazolin Sodium/Dextrose (Ancef) 2 gm in 50 mls @ 100 mls/hr IV PREOP ONE Stop: 08/16/22 07:29 Lidocaine (Lidocaine 4 % Patch Adh..Patch) 1 patch TRANSDERMA DAILY [facility]; Protocol Last Admin: 08/15/22 10:37 Dose: Not Given Lisinopril (Lisinopril 5 Mg Tablet) 15 mg PO DAILY [facility]; Protocol Last Admin: 08/15/22 08:57 Dose: 15 mg Non-Formulary Medication (Benralizumab [Fasenra]) 30 mg SUBCUT Q8W [facility] Non-Formulary Medication (Estradiol) 1 appl VAGINAL MOWEFR@0900 [facility] Non-Formulary Medication (Linaclotide [Linzess]) 145 mcg PO DAILY [facility] Omeprazole (Omeprazole 20 Mg Capsule.Dr) 20 mg PO BID PRN PRN Reason: Acid Reflux Pharmacy Consult (Consult Rx Perform Med Rec) 1 each MISCELLANE ONCE PRN PRN Reason: Consult order Pharmacy Consult (Consult Rx Vancomycin Dosing) 1 each MISCELLANE DAILY PRN PRN Reason: Consult order Phenazopyridine HCl (Phenazopyridine Hcl 200 Mg Tablet) 200 mg PO Q8H PRN PRN Reason: pain with urination Pravastatin Sodium (Pravastatin Sodium 40 Mg Tablet) 40 mg PO DAILY [facility] Last Admin: 08/15/22 08:57 Dose: 40 mg Sodium Chloride (0.9 % Sodium Chloride Flush 3 Ml Syringe) 3 ml IVFLUSH QSHIFT [facility] Last Admin: 08/15/22 09:34 Dose: Not Given Vitamin D (Cholecalciferol (Vitamin D3) 25 Mcg Tablet) 50 mcg PO DAILY [facility] Last Admin: 08/15/22 09:04 Dose: 50 mcg Home Medications Medication Instructions Recorded Confirmed Last Taken Type albuterol sulfate 90 mcg/actuation 2 puff inhalation Q4-6H PRN 06/24/20 08/13/22 Unknown History aerosol inhaler Shortness Of Breath Or Wheezing hydroxyzine HCl 25 mg tablet 25 mg PO QID PRN Anxiety 06/24/20 08/13/22 Unknown History aspirin 81 mg tablet,delayed 81 mg PO DAILY 12/21/20 08/13/22 Unknown History release cholecalciferol (vitamin D3) 50 50 mcg PO DAILY 06/04/21 08/13/22 Unknown History mcg (2,000 unit) capsule ipratropium 20 mcg-albuterol 100 1 puff PO QID PRN Shortness Of 06/04/21 08/13/22 Unknown History mcg/actuation mist for inhalation Breath Or Wheezing (Combivent Respimat) pravastatin 40 mg tablet 40 mg PO DAILY 06/04/21 08/13/22 Unknown History lisinopril 10 mg tablet 15 mg PO DAILY 03/09/22 08/13/22 08/12/22 History omeprazole 40 mg capsule,delayed 20 mg PO BID PRN Acid Reflux 03/09/22 08/13/22 Unknown History release linaclotide 145 mcg capsule 145 mcg PO DAILY 05/31/22 08/13/22 Unknown History (Linzess) estradiol 0.01% (0.1 mg/gram) 1 appl vaginal MOWEFR@0900 07/25/22 08/13/22 Unknown History vaginal cream acetaminophen 325 mg tablet 650 mg PO QID PRN Headache 08/13/22 08/13/22 Unknown History (Tylenol) albuterol sulfate 2.5 mg/3 mL 3 ml inhalation Q6H PRN Shortness 08/13/22 08/13/22 Unknown History (0.083 %) solution for nebulization Of Breath Or Wheezing hydrocortisone 2.5 % topical cream 1 appl VA BID-QID PRN hemorrhoids 08/13/22 08/13/22 Unknown History with perineal applicator (Proctosol HC) Physical Exam Vital Signs: Vital Signs: Last Vital Signs Temp 98.3 F 08/15/22 11:24 Pulse 111 H 08/15/22 11:24 Resp 20 08/15/22 11:24 BP 119/68 08/15/22 11:24 Pulse Ox 93 08/15/22 11:24 O2 Del Method 08/15/22 11:24 BMI result Body Mass Index 25.4 Const: General: cooperative HEENT: Head: Yes normal to inspection Face and sinus: Yes normal facial exam Mouth: Normal oral and palatal mucosa present Teeth and gingiva: dentition normal Eyes: General: appearance normal, both eyes and all related structures Pupils: Equal, round and reactive pupils present Resp: Effort & Inspection: normal respiratory effort Cardio: Rate: regular rate Rhythm: regular rhythm GI: Other: pelvic pain Palpation (GI): Soft to palpation and nontender : General: Yes no CVA tenderness Back/Spine/Pelvis: Back: no CVA tenderness Skin: General skin exam: no rashes or lesions noted Neuro: General: moves all extremities Cranial nerves: Yes Equal, round and reactive pupils present Extrem: General: Yes normal to inspection Psych: Appearance: grossly normal Results Labs CBC & Chem 7: 08/14/22 06:07 08/15/22 06:59 Labs: BMP 08/15/22 06:59 Creatinine 0.83 Microbiology Microbiology Results: Microbiology 08/13/22 12:06 Blood - Venous Blood Culture - Preliminary No growth after 48 hours. 08/13/22 Unknown Urine Catheterized - Kelly Catheter Urine Culture - Preliminary Gram negative cecilia Enterococcus/Streptococcus sp 08/13/22 11:45 Blood - Venous Blood Culture - Final Coag negative Staphylococcus Assessment and Plan (1) UTI (urinary tract infection): Status: Acute there is concern over gram negative and enterococcus (2) Sepsis: Status: Acute Plan Would switch to iv Zosyn as covers many organisms as those here/ Urolog follow and po regiment to be determined hopefully.
[2022-08-15] MEDS: 0.9 % Sodium Chloride Flush 3 ML SYRINGE IVFLUSH (16:23)
[2022-08-15] MEDS: levoFLOXacin/D5W 750 MG/150 ML PIGGYBACK 100 MG IV (16:37)
[2022-08-15] MEDS: vancomycin HCL 1,250 MG in 0.9 % Sodium Chloride 250 ML 166.67 MG IV (16:38)
--- NOTE | 2022-08-15 19:41 | PC.NURSE ---
incident at 19:41. nurses aid came to this nurse with a small white round pill and a smaller pink round scored pill with 5 on it found in pt's recliner. this nurse is not able to identify the pills. pills discarded appropriately in waste bottle.
[2022-08-15] MEDS: Enoxaparin Sodium 40 MG/0.4 ML SYRINGE SUBCUT (20:43)
[2022-08-16] VITALS (9 sets, daily range): BP systolic 122–159; BP diastolic 57–82; PULSE 74–127; RESP 16–19; TEMP 36.4–36.9; O2SAT 94–98
[2022-08-16] MEDS: 0.9 % Sodium Chloride Flush 3 ML SYRINGE IVFLUSH ×3 (00:36→20:23)
[2022-08-16 07:18] LABS: Creatinine Clr Calc Pharmacy 41.4; Estimated Glomerular Filt Rate 49
--- NOTE | 2022-08-16 07:56 | P.CONAN_ITS ---
[facility] Active Problems Active Problems: All Active Problems (Updated 08/13/22 @ 16:36 by Hoa Thompson MD) UTI (urinary tract infection) (Acute) Sepsis (Acute) Bladder mass (Acute) Hematuria (Acute) H/O primary malignant neoplasm of urinary bladder (Acute) Osteoarthritis of shoulders, bilateral (Acute) Hemorrhoids with complication (Acute) Vaginal pain (Acute) Back pain (Acute) Recurrent cough (Acute) Dysuria (Acute) Primary osteoarthritis, left shoulder (Acute) Small intestinal bacterial overgrowth (Acute) Bronchitis (Acute) Abdominal cramping (Acute) Hemorrhoids with complication (Acute) Right-sided ischial pain (Acute) Environmental allergies (Acute) Cough (Acute) Gastroesophageal reflux disease (Acute) Moderate persistent allergic asthma (Acute) Trochanteric bursitis, right hip (Acute) Malignant neoplasm of urinary bladder (Acute) UTI (urinary tract infection) (Acute) Nausea and vomiting (Acute) Chronic idiopathic constipation (Acute) Low back pain due to bilateral sciatica (Acute) Tendonitis of left rotator cuff (Acute) Trochanteric bursitis of left hip (Acute) Past Medical History Medical History Bladder mass Hemorrhoids with complication Hemorrhoids with complication Malignant neoplasm of urinary bladder UTI (urinary tract infection) Functional capacity: independent ambulation Patient : No Family History Family History Father No problems noted. Mother Diabetes Brother Lung cancer Daughter Diabetes Family history of problems with anesthesia: No Surgical History Surgical History History of esophagogastroduodenoscopy (EGD) History of hysterectomy with bilateral oophorectomy Hx of colonoscopy (01/17/19) History of Problems with Anesthesia: No Social History Social History Household Members: Spouse Housing: Apartment Do you presently have visiting nurse or other home services: Yes ([employer]) Alcohol intake: never Patient Tobacco Use Status: Former Tobacco user Cigarettes Per Day: 3 Years Smoked: 55 Smoked in Last 30 Days: No Use of substances other than those prescribed or required for medical reasons: No Currently Displaying Signs/Symptoms of Drug Intoxication Withdrawal: No Have you been hit, kicked, punched, or otherwise hurt by someone within the past year? If so, by whom?: No Do you feel safe in your current relationship?: Yes Is there a partner from a previous relationship who is making you feel unsafe now?: No Are you made to feel afraid or neglected: No Advance Directives: No Do you have thoughts of harming others: None Do you have a plan to hurt others: No Plan Recently lost weight without trying: Unsure Nutrition Risks: No Nutritional Risk Patient : No : No Poor oral hygiene: No service: No Current occupational status: retired Current occupation: rt handed Meds Allergies Allergy/AdvReac Type Severity Reaction Status Date / Time aspirin [ASA] Allergy Intermediate RASH Verified 08/11/22 11:50 ibuprofen [Ibuprofen] Allergy Intermediate RASH Verified 08/11/22 11:50 morphine [MORPHINE] Allergy Intermediate ITCHING Verified 08/11/22 11:50 naproxen [From NAPROSYN] Allergy Intermediate RASH,N/V Verified 08/11/22 11:50 oxycodone [OXYCODONE] Allergy Intermediate NAUSEA & Verified 08/11/22 11:50 VOMITING, RASH Active Medications: Current Medications Acetaminophen (Acetaminophen 325 Mg Tablet) 650 mg PO Q6H [facility] Last Admin: 08/16/22 05:24 Dose: Not Given Albuterol/Ipratropium (Albuterol/Iprat 2.5/0.5mg 3 Ml Ampul.Neb) 3 ml INHALE RQ4H WHILE AWAKE [facility] Last Admin: 08/15/22 18:46 Dose: 3 ml Albuterol/Ipratropium (Albuterol/Iprat 2.5/0.5mg 3 Ml Ampul.Neb) 3 ml INHALE Q3H PRN PRN Reason: sob Aspirin (Aspirin Enteric Coated 81 Mg Tablet.) 81 mg PO DAILY [facility] Last Admin: 08/15/22 08:57 Dose: 81 mg Enoxaparin Sodium (Enoxaparin Sodium 40 Mg/0.4 Ml Syringe) 40 mg SUBCUT Q24H [facility] Last Admin: 08/15/22 20:43 Dose: 40 mg Hydrocortisone (Hydrocortisone 2.5 % Rectal Cr 30 Gm Tube) 1 appl SD QID PRN PRN Reason: hemorrhoids Hydroxyzine HCl (Hydroxyzine Hcl 25 Mg Tablet) 25 mg PO QID PRN PRN Reason: Anxiety Levofloxacin (Levaquin) 750 mg in 150 mls @ 100 mls/hr IV Q24H [facility] Last Infusion: 08/15/22 18:47 Dose: Infused Lactated Ringer's (Lr) 1,000 mls @ 80 mls/hr IVCONT .[id number] [facility] Last Admin: 08/16/22 05:24 Dose: Not Given Vancomycin HCl 1,250 mg/ (Sodium Chloride) 250 mls @ 166.667 mls/hr IV Q24H [facility] Last Infusion: 08/15/22 18:47 Dose: Infused Lidocaine (Lidocaine 4 % Patch Adh..Patch) 1 patch TRANSDERMA DAILY [facility]; Protocol Last Admin: 08/15/22 10:37 Dose: Not Given Lisinopril (Lisinopril 5 Mg Tablet) 15 mg PO DAILY [facility]; Protocol Last Admin: 08/15/22 08:57 Dose: 15 mg Non-Formulary Medication (Benralizumab [Fasenra]) 30 mg SUBCUT Q8W [facility] Non-Formulary Medication (Estradiol) 1 appl VAGINAL MOWEFR@0900 [facility] Non-Formulary Medication (Linaclotide [Linzess]) 145 mcg PO DAILY [facility] Omeprazole (Omeprazole 20 Mg Capsule.Dr) 20 mg PO BID PRN PRN Reason: Acid Reflux Pharmacy Consult (Consult Rx Perform Med Rec) 1 each MISCELLANE ONCE PRN PRN Reason: Consult order Pharmacy Consult (Consult Rx Vancomycin Dosing) 1 each MISCELLANE DAILY PRN PRN Reason: Consult order Phenazopyridine HCl (Phenazopyridine Hcl 200 Mg Tablet) 200 mg PO Q8H PRN PRN Reason: pain with urination Pravastatin Sodium (Pravastatin Sodium 40 Mg Tablet) 40 mg PO DAILY [facility] Last Admin: 08/15/22 08:57 Dose: 40 mg Sodium Chloride (0.9 % Sodium Chloride Flush 3 Ml Syringe) 3 ml IVFLUSH QSHIFT [facility] Last Admin: 08/16/22 00:36 Dose: 3 ml Vitamin D (Cholecalciferol (Vitamin D3) 25 Mcg Tablet) 50 mcg PO DAILY [facility] Last Admin: 08/15/22 09:04 Dose: 50 mcg Home Medications Medication Instructions Recorded Confirmed Last Taken Type albuterol sulfate 90 mcg/actuation 2 puff inhalation Q4-6H PRN 06/24/20 08/13/22 Unknown History aerosol inhaler Shortness Of Breath Or Wheezing hydroxyzine HCl 25 mg tablet 25 mg PO QID PRN Anxiety 06/24/20 08/13/22 Unknown History aspirin 81 mg tablet,delayed 81 mg PO DAILY 12/21/20 08/13/22 Unknown History release cholecalciferol (vitamin D3) 50 50 mcg PO DAILY 06/04/21 08/13/22 Unknown History mcg (2,000 unit) capsule ipratropium 20 mcg-albuterol 100 1 puff PO QID PRN Shortness Of 06/04/21 08/13/22 Unknown History mcg/actuation mist for inhalation Breath Or Wheezing (Combivent Respimat) pravastatin 40 mg tablet 40 mg PO DAILY 06/04/21 08/13/22 Unknown History lisinopril 10 mg tablet 15 mg PO DAILY 03/09/22 08/13/22 08/12/22 History omeprazole 40 mg capsule,delayed 20 mg PO BID PRN Acid Reflux 03/09/22 08/13/22 Unknown History release linaclotide 145 mcg capsule 145 mcg PO DAILY 05/31/22 08/13/22 Unknown History (Linzess) estradiol 0.01% (0.1 mg/gram) 1 appl vaginal MOWEFR@0900 07/25/22 08/13/22 Unknown History vaginal cream acetaminophen 325 mg tablet 650 mg PO QID PRN Headache 08/13/22 08/13/22 Unknown History (Tylenol) albuterol sulfate 2.5 mg/3 mL 3 ml inhalation Q6H PRN Shortness 08/13/22 08/13/22 Unknown History (0.083 %) solution for nebulization Of Breath Or Wheezing hydrocortisone 2.5 % topical cream 1 appl SD BID-QID PRN hemorrhoids 08/13/22 08/13/22 Unknown History with perineal applicator (Proctosol HC) Exam Exam Date and Time: August 16, 2022755 Height,Weight and Vital Signs: Height 5 ft 4 in Weight 67.4 kg Last Vital Signs Temp 98.5 F 08/16/22 07:41 Pulse 89 08/16/22 07:41 Resp 18 08/16/22 07:41 BP 149/78 H 08/16/22 07:41 Pulse Ox 98 08/16/22 07:41 O2 Del Method 08/16/22 07:41 Pertinent Lab Results Pertinent Lab Results: Laboratory Tests 08/13/22 08/13/22 08/13/22 11:45 11:45 11:45 WBC 14.9 H RBC 4.81 Hgb 13.4 Hct 42.2 MCV 87.7 MCH 27.9 MCHC 31.8 RDW 13.0 Plt Count 402 H MPV 9.8 Immature Gran % (Auto) 0.3 Neut % (Auto) 87.1 H Lymph % (Auto) 5.4 L [place] % (Auto) 7.1 Eos % (Auto) 0.0 Baso % (Auto) 0.1 Lymph # (Auto) 0.8 L [place] # (Auto) 1.1 Eos # (Auto) 0.0 Baso # (Auto) 0.0 Abs Immat Gran (auto) 0.04 H Absolute Neuts (auto) 13.0 H Absolute Nucleated RBC 0.000 Nucleated RBC % (auto) 0.0 Sodium 133 L Potassium 4.2 Chloride 100 Carbon Dioxide 25 Anion Gap 12 BUN 24 H Creatinine 0.83 Estim Creat Clear Calc 54.4 Estimated GFR > 60 Random Glucose 111 Lactic Acid 1.1 Calcium 9.4 Magnesium 1.8 Total Bilirubin 1.0 Direct Bilirubin 0.3 AST 23 ALT 15 Alkaline Phosphatase 113 Total Protein 6.8 Albumin 3.9 Urine Color Urine Appearance Urine pH Ur Specific [place] Urine Protein Urine Glucose (UA) Urine Ketones Urine Blood Urine Nitrite Ur Leukocyte Esterase Urine RBC Urine WBC Ur Squamous Epith Cells Urine Bacteria Hyaline Casts COVID-19 (MARIELENA) COVID-19 Clin Com 08/13/22 08/13/22 08/14/22 12:06 14:23 06:07 WBC 11.9 H RBC 4.21 Hgb 11.9 L Hct 36.6 L MCV 86.9 MCH 28.3 MCHC 32.5 RDW 13.0 Plt Count 315 MPV 9.7 Immature Gran % (Auto) Neut % (Auto) Lymph % (Auto) [place] % (Auto) Eos % (Auto) Baso % (Auto) Lymph # (Auto) [place] # (Auto) Eos # (Auto) Baso # (Auto) Abs Immat Gran (auto) Absolute Neuts (auto) Absolute Nucleated RBC 0.000 Nucleated RBC % (auto) 0.0 Sodium Potassium Chloride Carbon Dioxide Anion Gap BUN Creatinine Estim Creat Clear Calc Estimated GFR Random Glucose Lactic Acid Calcium Magnesium Total Bilirubin Direct Bilirubin AST ALT Alkaline Phosphatase Total Protein Albumin Urine Color Dark Yellow Urine Appearance Cloudy Urine pH 5.5 Ur Specific [place] 1.015 Urine Protein 300 (3+) H Urine Glucose (UA) Negative Urine Ketones Negative Urine Blood Large (3+) H Urine Nitrite Positive H Ur Leukocyte Esterase Large (3+) H Urine RBC >20 H Urine WBC >50 H Ur Squamous Epith Cells 0-2 Urine Bacteria 4+ Hyaline Casts 3-5 COVID-19 (MARIELENA) Negative COVID-19 Clin Com See Note 08/14/22 08/15/22 08/16/22 06:07 06:59 06:39 WBC RBC Hgb Hct MCV MCH MCHC RDW Plt Count MPV Immature Gran % (Auto) Neut % (Auto) Lymph % (Auto) [place] % (Auto) Eos % (Auto) Baso % (Auto) Lymph # (Auto) [place] # (Auto) Eos # (Auto) Baso # (Auto) Abs Immat Gran (auto) Absolute Neuts (auto) Absolute Nucleated RBC Nucleated RBC % (auto) Sodium 140 Potassium 3.7 Chloride 107 Carbon Dioxide 21 L Anion Gap 16 BUN 18 H Creatinine 0.78 0.83 1.09 Estim Creat Clear Calc 57.9 54.4 41.4 Estimated GFR > 60 > 60 49 Random Glucose 100 Lactic Acid Calcium 8.1 L D Magnesium Total Bilirubin Direct Bilirubin AST ALT Alkaline Phosphatase Total Protein Albumin Urine Color Urine Appearance Urine pH Ur Specific [place] Urine Protein Urine Glucose (UA) Urine Ketones Urine Blood Urine Nitrite Ur Leukocyte Esterase Urine RBC Urine WBC Ur Squamous Epith Cells Urine Bacteria Hyaline Casts COVID-19 (MARIELENA) COVID-19 Clin Com Assessment and Plan Final Anesthetic Review Family History of Problems with Anesthesia: No History of Problems with Anesthesia: No
[2022-08-16] MEDS: Albuterol/Iprat 2.5/0.5MG 3 ML AMPUL.NEB INHALE ×4 (08:04→19:32)
[2022-08-16] MEDS: Pravastatin Sodium 40 MG TABLET PO (08:49)
[2022-08-16] MEDS: Cholecalciferol (Vitamin D3) 25 MCG TABLET 50 MCG PO (08:49)
[2022-08-16] MEDS: lisinopriL 5 MG TABLET 15 MG PO (08:50)
--- NOTE | 2022-08-16 13:55 | P.PNIM_ITS ---
Subjective Subjective Date of Service: 08/16/22 Interval History: UTI/sepsis/bladder cancer Review of Systems Patient still has significant dysuria, denies any fever or chills or nausea or vomiting. She said she had some dizziness, we walked her with her walker she is not having any difficulty walking or any dizziness symptoms at that point. Physical Exam Vital Signs: Vital Signs: Last Vital Signs Temp 97.5 F 08/16/22 11:42 Pulse 75 08/16/22 11:42 Resp 17 08/16/22 11:42 BP 138/75 08/16/22 11:42 Pulse Ox 98 08/16/22 11:42 O2 Del Method 08/16/22 11:42 BMI result Body Mass Index 25.4 Appearance: Alert.? Oriented X3.? not in distress.? cvs: rrr, [id number] . res: clear to auscultation ,no rhonchii or wheezing abd: no rebound or guarding ,suprpubic discomfort, bs present. : no cva tenderness ext pulses present , no cyanosis . neuro: axo3 , nonfocal. Objective Data Active Medications Acetaminophen (Acetaminophen 325 Mg Tablet) 650 mg PO Q6H [facility] Last Admin: 08/16/22 12:17 Dose: Not Given Documented By: MIRTHA Non-Admin Reason: Patient Condition Contraindication Albuterol/Ipratropium (Albuterol/Iprat 2.5/0.5mg 3 Ml Ampul.Neb) 3 ml INHALE RQ4H WHILE AWAKE [facility] Last Admin: 08/16/22 11:31 Dose: 3 ml Documented By: KADIE Albuterol/Ipratropium (Albuterol/Iprat 2.5/0.5mg 3 Ml Ampul.Neb) 3 ml INHALE Q3H PRN PRN Reason: sob Aspirin (Aspirin Enteric Coated 81 Mg Tablet.) 81 mg PO DAILY [facility] Last Admin: 08/16/22 09:05 Dose: Not Given Documented By: JASWINDER Non-Admin Reason: Patient Refused Enoxaparin Sodium (Enoxaparin Sodium 40 Mg/0.4 Ml Syringe) 40 mg SUBCUT Q24H [facility] Last Admin: 08/15/22 20:43 Dose: 40 mg Documented By: CHRISTINE Hydrocortisone (Hydrocortisone 2.5 % Rectal Cr 30 Gm Tube) 1 appl OR QID PRN PRN Reason: hemorrhoids Hydroxyzine HCl (Hydroxyzine Hcl 25 Mg Tablet) 25 mg PO QID PRN PRN Reason: Anxiety Levofloxacin (Levaquin) 750 mg in 150 mls @ 100 mls/hr IV Q24H [facility] Last Infusion: 08/15/22 18:47 Dose: 0 mls/hr Documented By: BETH Lactated Ringer's (Lr) 1,000 mls @ 80 mls/hr IVCONT .[id number] [facility] Last Admin: 08/16/22 05:24 Dose: Not Given Documented By: HANS Non-Admin Reason: IV Running Vancomycin HCl 1,250 mg/ (Sodium Chloride) 250 mls @ 166.667 mls/hr IV Q24H [facility] Last Infusion: 08/15/22 18:47 Dose: 0 mls/hr Documented By: BETH Lidocaine (Lidocaine 4 % Patch Adh..Patch) 1 patch TRANSDERMA DAILY [facility]; Protocol Last Admin: 08/16/22 09:05 Dose: Not Given Documented By: JASWINDER Non-Admin Reason: Patient Refused Lisinopril (Lisinopril 5 Mg Tablet) 15 mg PO DAILY [facility]; Protocol Last Admin: 08/16/22 08:50 Dose: 15 mg Documented By: JASWINDER Non-Formulary Medication (Benralizumab [Fasenra]) 30 mg SUBCUT Q8W [facility] Non-Formulary Medication (Estradiol) 1 appl VAGINAL MOWEFR@0900 [facility] Non-Formulary Medication (Linaclotide [Linzess]) 145 mcg PO DAILY [facility] Omeprazole (Omeprazole 20 Mg Capsule.Dr) 20 mg PO BID PRN PRN Reason: Acid Reflux Pharmacy Consult (Consult Rx Perform Med Rec) 1 each MISCELLANE ONCE PRN PRN Reason: Consult order Pharmacy Consult (Consult Rx Vancomycin Dosing) 1 each MISCELLANE DAILY PRN PRN Reason: Consult order Phenazopyridine HCl (Phenazopyridine Hcl 200 Mg Tablet) 200 mg PO Q8H PRN PRN Reason: pain with urination Pravastatin Sodium (Pravastatin Sodium 40 Mg Tablet) 40 mg PO DAILY [facility] Last Admin: 08/16/22 08:49 Dose: 40 mg Documented By: JASWINDER Sodium Chloride (0.9 % Sodium Chloride Flush 3 Ml Syringe) 3 ml IVFLUSH QSHIFT [facility] Last Admin: 08/16/22 09:05 Dose: 3 ml Documented By: JASWINDER Vitamin D (Cholecalciferol (Vitamin D3) 25 Mcg Tablet) 50 mcg PO DAILY [facility] Last Admin: 08/16/22 08:49 Dose: 50 mcg Documented By: JASWINDER Labs CBC & Chem 7: 08/14/22 06:07 08/16/22 06:39 Labs: Laboratory Results - last 24 hr 08/16/22 06:39 Estim Creat Clear Calc 41.4 Estimated GFR 49 Microbiology Microbiology Results: Microbiology 08/13/22 Unknown Urine Culture - Final Urine Catheterized - Kelly Catheter Klebsiella pneumoniae Enterococcus faecalis 08/13/22 12:06 Blood Culture - Preliminary Blood - Venous No growth after 48 hours. Assessment and Plan (1) UTI (urinary tract infection): Status: Acute (2) Sepsis: Status: Acute (3) Bladder mass: Status: Acute Plan 77-year-old female with a history of recurrent bladder cancer s/p BCG recently rediagnosed who presents to the ER for evaluation of difficulty urinating, dysuria and left lower quadrant and pelvic pain-as per the patient she has on and off dysuria symptoms from long time and had a cystoscopy- UTI/sepsis: 1.UTI/sepsis Patient no fever, leukocytosis improvin, mild tachycardia .? Abnormal UA, microscopic hematuria CT abdomen-did not show any stone or obstruction Urine and blood culture -staph coagulase negative contaminant, urine culture Enterococcus faecium /Klebsiella sensitive to Levaquin. Switched to Levaquin, DC vanco since blood culture possible contaminant. Urology evaluation-continue IV antibiotic levquin day3,TUBRT 2. History of bladder cancer: ?? Possible that recurrent pain is due to bladder cancer related.? Pain control with lidocaine patch, Tylenol on currently patient is saying she is not tolerating most pain medication. 3. Severe persistent asthma: continue? DuoNebs, home meds. 4. Hypertension : Blood pressures so far stable, home medication. 5.hlp: continue medication. DVT prophylaxis with subQ Lovenox ongoing inpatient hospitalization stay:? sepsis/UTI/history of bladder cancer will benefit from IV antibiotic, also cultures pending , possible bladder cancer surgery . Quality Stroke Does the patient have a stroke diagnosis?: No VTE Prior VTE?: No VTE Risk Level:: Medical - moderate - high VTE Device Contraindication: N/A - Device Ordered VTE Drug Contraindication: N/A - Med Ordered
[2022-08-16 14:19] LABS: Vancomycin Random 14.4 mcg/mL (15-20)
[2022-08-16] MEDS: levoFLOXacin/D5W 750 MG/150 ML PIGGYBACK 100 MG IV (16:42)
[2022-08-16] MEDS: Enoxaparin Sodium 40 MG/0.4 ML SYRINGE SUBCUT (20:23)
[2022-08-16] MEDS: ondansetron HCL 4 MG/2 ML VIAL IVPUSH (22:38)
[2022-08-17] VITALS (9 sets, daily range): BP systolic 125–137; BP diastolic 60–83; PULSE 80–112; RESP 17–20; TEMP 35.7–36.8; O2SAT 94–97
[2022-08-17 06:26] LABS: Creatinine Clr Calc Pharmacy 32.2; Estimated Glomerular Filt Rate 37
[2022-08-17] MEDS: Albuterol/Iprat 2.5/0.5MG 3 ML AMPUL.NEB INHALE ×2 (07:55→11:24)
[2022-08-17] MEDS: lisinopriL 5 MG TABLET 15 MG PO (09:03)
[2022-08-17] MEDS: Cholecalciferol (Vitamin D3) 25 MCG TABLET 50 MCG PO (09:03)
[2022-08-17] MEDS: 0.9 % Sodium Chloride Flush 3 ML SYRINGE IVFLUSH ×3 (09:03→20:22)
[2022-08-17] MEDS: Pravastatin Sodium 40 MG TABLET PO (09:04)
[2022-08-17] MEDS: Aspirin Enteric Coated 81 MG TABLET.DR PO (09:06)
[2022-08-17] MEDS: Hydrocortisone 2.5 % Rectal Cr 30 GM TUBE 1 APPL PR (09:14)
--- NOTE | 2022-08-17 12:39 | HO.PM.IMPN ---
Subjective Subjective Date of Service: 08/17/22 Interval History: seen in follow-up for: UTI/sepsis/bladder cancer interval history:Patient still has significant dysuria, denies any fever or chills or nausea or vomiting. No hematuria Review of Systems General: No fevers, malaise, unintentional weight loss HEENT: No blurred vision, diplopia. Cardiovascular: No chest pain, palpitations, or leg edema Respiratory: No shortness of breath, wheezing, cough GI: No abdominal pain, nausea, vomiting, diarrhea, constipation : +dysuria. No hematuria, increased urinary frequency, decreased urinary output MSK: No myalgia, back pain Neuro: No headaches, weakness, paresthesias Skin: No rashes or lesions Physical Exam Vital Signs: Vital Signs: Last Vital Signs Temp 97.1 F 08/17/22 11:11 Pulse 108 H 08/17/22 11:24 Resp 18 08/17/22 11:24 BP 136/82 08/17/22 11:11 Pulse Ox 95 08/17/22 11:11 O2 Del Method 08/17/22 11:11 BMI result Body Mass Index 25.4 Constitutional - Awake and Alert, No apparent distress Eyes - PERRLA, EOMI Cardiovascular - S1S2, RRR, No edema Respiratory - Normal lung expansion, Normal respiratory effort, No respiratory distress, CTA bilaterally Gastrointestinal - Mild diffuse tenderness to palpation. ND; +BS; No rebound or guarding Extremities - no calf tenderness bilaterally, no swelling Skin - Warm/Dry Neurological - Alert & oriented x3 Psychological - Appropriate affect Objective Data Active Medications Acetaminophen (Acetaminophen 325 Mg Tablet) 650 mg PO Q6H [facility] Last Admin: 08/17/22 11:34 Dose: Not Given Documented By: TIM Non-Admin Reason: Patient Refused Albuterol/Ipratropium (Albuterol/Iprat 2.5/0.5mg 3 Ml Ampul.Neb) 3 ml INHALE RQ4H WHILE AWAKE [facility] Last Admin: 08/17/22 11:24 Dose: 3 ml Documented By: KADIE Albuterol/Ipratropium (Albuterol/Iprat 2.5/0.5mg 3 Ml Ampul.Neb) 3 ml INHALE Q3H PRN PRN Reason: sob Aspirin (Aspirin Enteric Coated 81 Mg Tablet.) 81 mg PO DAILY [facility] Last Admin: 08/17/22 09:06 Dose: 81 mg Documented By: TIM Enoxaparin Sodium (Enoxaparin Sodium 40 Mg/0.4 Ml Syringe) 40 mg SUBCUT Q24H [facility] Last Admin: 08/16/22 20:23 Dose: 40 mg Documented By: ASHLEIGH Hydrocortisone (Hydrocortisone 2.5 % Rectal Cr 30 Gm Tube) 1 appl [place] QID PRN PRN Reason: hemorrhoids Last Admin: 08/17/22 09:14 Dose: 1 appl Documented By: TIM Hydroxyzine HCl (Hydroxyzine Hcl 25 Mg Tablet) 25 mg PO QID PRN PRN Reason: Anxiety Levofloxacin (Levaquin) 750 mg in 150 mls @ 100 mls/hr IV Q24H [facility] Last Infusion: 08/16/22 18:22 Dose: 0 mls/hr Documented By: JASWINDER Lidocaine (Lidocaine 4 % Patch Adh..Patch) 1 patch TRANSDERMA DAILY [facility]; Protocol Last Admin: 08/17/22 09:04 Dose: Not Given Documented By: TIM Non-Admin Reason: Patient Refused Lisinopril (Lisinopril 5 Mg Tablet) 15 mg PO DAILY [facility]; Protocol Last Admin: 08/17/22 09:03 Dose: 15 mg Documented By: TIM Non-Formulary Medication (Benralizumab [Fasenra]) 30 mg SUBCUT Q8W [facility] Non-Formulary Medication (Estradiol) 1 appl VAGINAL MOWEFR@0900 [facility] Non-Formulary Medication (Linaclotide [Linzess]) 145 mcg PO DAILY [facility] Omeprazole (Omeprazole 20 Mg Capsule.Dr) 20 mg PO BID PRN PRN Reason: Acid Reflux Ondansetron HCl (Ondansetron Hcl 4 Mg/2 Ml Vial) 4 mg IVPUSH Q6H PRN PRN Reason: Nausea Last Admin: 08/16/22 22:38 Dose: 4 mg Documented By: ASHLEIGH Pharmacy Consult (Consult Rx Perform Med Rec) 1 each MISCELLANE ONCE PRN PRN Reason: Consult order Phenazopyridine HCl (Phenazopyridine Hcl 200 Mg Tablet) 200 mg PO Q8H PRN PRN Reason: pain with urination Pravastatin Sodium (Pravastatin Sodium 40 Mg Tablet) 40 mg PO DAILY [facility] Last Admin: 12/07/22 09:04 Dose: 40 mg Documented By: TIM Sodium Chloride (0.9 % Sodium Chloride Flush 3 Ml Syringe) 3 ml IVFLUSH QSHIFT [facility] Last Admin: 08/17/22 09:03 Dose: 3 ml Documented By: TIM Vitamin D (Cholecalciferol (Vitamin D3) 25 Mcg Tablet) 50 mcg PO DAILY [facility] Last Admin: 08/17/22 09:03 Dose: 50 mcg Documented By: TIM Labs CBC & Chem 7: 08/14/22 06:07 08/17/22 05:47 Labs: Laboratory Results - last 24 hr 08/16/22 08/17/22 13:52 05:47 Estim Creat Clear Calc 32.2 Estimated GFR 37 Random Vancomycin 14.4 L Microbiology Microbiology Results: Microbiology 08/13/22 Unknown Urine Culture - Final Urine Catheterized - Kelly Catheter Klebsiella pneumoniae Enterococcus faecalis Assessment and Plan (1) UTI (urinary tract infection): Status: Acute (2) Sepsis: Status: Acute (3) Bladder mass: Status: Acute Plan 77-year-old female with a history of recurrent bladder cancer s/p BCG recently rediagnosed who presents to the ER for evaluation of difficulty urinating, dysuria and left lower quadrant and pelvic pain-as per the patient she has on and off dysuria symptoms from long time and had a cystoscopy- UTI/sepsis: 1.UTI/sepsis Afebrile, WBC trending down. Still with mild tachycardia (could also be secondary to albuterol use), vitals otherwise stable Abnormal UA, microscopic hematuria CT abdomen-did not show any stone or obstruction Urine and blood culture -staph coagulase negative contaminant, urine culture Enterococcus faecium /Klebsiella sensitive to Levaquin. Switched to Levaquin, DC vanco since blood culture possible contaminant. Urology evaluation-continue IV antibiotic levquin day4,TUBRT 2. History of bladder cancer: ?? Possible that recurrent pain is due to bladder cancer related.? Pain control with lidocaine patch, Tylenol on currently patient is saying she is not tolerating most pain medication. 3. Severe persistent asthma: continue? DuoNebs change to prn, home meds. 4. Hypertension : Blood pressures so far stable, home medication. 5.hlp: continue medication. DVT prophylaxis with subQ Lovenox ongoing inpatient hospitalization stay:? sepsis/UTI/history of bladder cancer will benefit from IV antibiotic, possible bladder cancer surgery . Quality Stroke Does the patient have a stroke diagnosis?: No VTE Prior VTE?: No VTE Risk Level:: Medical - moderate - high VTE Device Contraindication: N/A - Device Ordered VTE Drug Contraindication: N/A - Med Ordered
--- NOTE | 2022-08-17 13:54 | MHC.CM.PN ---
per rounds pt remains septic,dc plan remains home
[2022-08-17] MEDS: levoFLOXacin/D5W 750 MG/150 ML PIGGYBACK 100 MG IV (15:43)
[2022-08-17] MEDS: Phenazopyridine HCL 200 MG TABLET PO (20:21)
[2022-08-17] MEDS: Enoxaparin Sodium 40 MG/0.4 ML SYRINGE SUBCUT (20:21)
[2022-08-18 04:00] VITALS: BP 134/63; PULSE 103; RESP 18; TEMP 36.9; O2SAT 95
[2022-08-18 08:00] VITALS: BP 141/76; PULSE 99; RESP 14; TEMP 36.9; O2SAT 96
[2022-08-18 08:08] LABS: MANUAL DIFF FLAG NO
[2022-08-18 08:11] LABS: Basophils Percent Auto 0.3 % (0-2); Hematocrit 36.4 % (37.0-47.0); Hemoglobin 11.5 g/dl (12.0-16.0); Imm Gran Abs Auto 0.03 X10*3/uL (0.00-0.03); Imm Gran Pct Auto 0.3 % (0.0-0.4); Lymphocytes Absolute Auto 1.2 X10*3/uL (1.2-4.9); Lymphocytes Percent Auto 11.3 % (20-40); Mean Corpuscular HGB Conc 31.6 g/dl (31.0-35.0); Mean Corpuscular Volume 88.6 fL (80.0-98.0); Mean Platelet Volume 9.8 fL (9.4-12.3); Monocytes Absolute Auto 1.4 X10*3/uL (0.1-1.2); Monocytes Percent Auto 12.8 % (2-11); Neutrophils Absolute Auto 8.1 x10*3/uL (2.0-8.3); Neutrophils Percent Auto 75.3 % (45-73); Platelet Count 359 X10*3/uL (160-400); Red Blood Count 4.11 X10*6/uL (4.20-5.50); White Blood Count 10.7 X10*3/uL (4.8-10.8)
[2022-08-18 08:28] LABS: Creatinine Clr Calc Pharmacy 26.4; Estimated Glomerular Filt Rate 29
[2022-08-18] MEDS: 0.9 % Sodium Chloride Flush 3 ML SYRINGE IVFLUSH ×3 (09:10→20:54)
[2022-08-18] MEDS: lisinopriL 5 MG TABLET 15 MG PO (09:11)
[2022-08-18] MEDS: Pravastatin Sodium 40 MG TABLET PO (09:11)
[2022-08-18] MEDS: Aspirin Enteric Coated 81 MG TABLET.DR PO (09:11)
[2022-08-18] MEDS: Cholecalciferol (Vitamin D3) 25 MCG TABLET 50 MCG PO (09:11)
[2022-08-18] MEDS: Phenazopyridine HCL 200 MG TABLET PO (09:23)
--- NOTE | 2022-08-18 10:15 | HO.PM.IMPN ---
Subjective Subjective Date of Service: 08/18/22 Interval History: seen in follow-up for: UTI/sepsis/bladder cancer interval history:Patient still has significant dysuria (10/10 pain with urination), 8/10 suprapebic pain at rest. Refuses pain medication due to history adverse reaction. denies any fever or chills or nausea or vomiting. No hematuria Review of Systems General: No fevers, malaise, unintentional weight loss HEENT: No blurred vision, diplopia. Cardiovascular: No chest pain, palpitations, or leg edema Respiratory: No shortness of breath, wheezing, cough GI: No abdominal pain, nausea, vomiting, diarrhea, constipation : +dysuria. No hematuria, increased urinary frequency, decreased urinary output MSK: No myalgia, back pain Neuro: No headaches, weakness, paresthesias Skin: No rashes or lesions Physical Exam Vital Signs: Vital Signs: Last Vital Signs Temp 98.5 F 08/18/22 08:00 Pulse 99 08/18/22 08:00 Resp 14 08/18/22 08:00 BP 141/76 H 08/18/22 08:00 Pulse Ox 96 08/18/22 08:00 O2 Del Method 08/18/22 08:00 BMI result Body Mass Index 25.4 Constitutional - Awake and Alert, No apparent distress Eyes - PERRLA, EOMI Cardiovascular - S1S2, RRR, No edema Respiratory - Normal lung expansion, Normal respiratory effort, No respiratory distress, CTA bilaterally Gastrointestinal - Mild diffuse tenderness to palpation. ND; +BS; No rebound or guarding Extremities - no calf tenderness bilaterally, no swelling Skin - Warm/Dry Neurological - Alert & oriented x3 Psychological - Appropriate affect Objective Data Active Medications Acetaminophen (Acetaminophen 325 Mg Tablet) 650 mg PO Q6H [facility] Last Admin: 08/18/22 05:51 Dose: Not Given Documented By: FRANCISCA Non-Admin Reason: Patient Refused Albuterol/Ipratropium (Albuterol/Iprat 2.5/0.5mg 3 Ml Ampul.Neb) 3 ml INHALE Q3H PRN PRN Reason: sob Aspirin (Aspirin Enteric Coated 81 Mg Tablet.) 81 mg PO DAILY [facility] Last Admin: 08/18/22 09:11 Dose: 81 mg Documented By: TIM Enoxaparin Sodium (Enoxaparin Sodium 40 Mg/0.4 Ml Syringe) 40 mg SUBCUT Q24H [facility] Last Admin: 08/17/22 20:21 Dose: 40 mg Documented By: CASTILYani Hydrocortisone (Hydrocortisone 2.5 % Rectal Cr 30 Gm Tube) 1 appl [place] QID PRN PRN Reason: hemorrhoids Last Admin: 08/17/22 09:14 Dose: 1 appl Documented By: CTORREmily Hydroxyzine HCl (Hydroxyzine Hcl 25 Mg Tablet) 25 mg PO QID PRN PRN Reason: Anxiety Levofloxacin (Levaquin) 750 mg in 150 mls @ 100 mls/hr IV Q24H [facility] Last Infusion: 08/17/22 17:32 Dose: 0 mls/hr Documented By: JOSEFAORREmily Lidocaine (Lidocaine 4 % Patch Adh..Patch) 1 patch TRANSDERMA DAILY [facility]; Protocol Last Admin: 08/18/22 09:36 Dose: Not Given Documented By: CTORREmily Non-Admin Reason: Patient Refused Lisinopril (Lisinopril 5 Mg Tablet) 15 mg PO DAILY [facility]; Protocol Last Admin: 08/18/22 09:11 Dose: 15 mg Documented By: CTORREmily Non-Formulary Medication (Benralizumab [Fasenra]) 30 mg SUBCUT Q8W [facility] Non-Formulary Medication (Estradiol) 1 appl VAGINAL MOWEFR@0900 [facility] Non-Formulary Medication (Linaclotide [Linzess]) 145 mcg PO DAILY [facility] Omeprazole (Omeprazole 20 Mg Capsule.Dr) 20 mg PO BID PRN PRN Reason: Acid Reflux Ondansetron HCl (Ondansetron Hcl 4 Mg/2 Ml Vial) 4 mg IVPUSH Q6H PRN PRN Reason: Nausea Last Admin: 08/16/22 22:38 Dose: 4 mg Documented By: ASHLEIGH Pharmacy Consult (Consult Rx Perform Med Rec) 1 each MISCELLANE ONCE PRN PRN Reason: Consult order Phenazopyridine HCl (Phenazopyridine Hcl 200 Mg Tablet) 200 mg PO Q8H PRN PRN Reason: pain with urination Last Admin: 08/18/22 09:23 Dose: 200 mg Documented By: TIM Pravastatin Sodium (Pravastatin Sodium 40 Mg Tablet) 40 mg PO DAILY [facility] Last Admin: 08/18/22 09:11 Dose: 40 mg Documented By: TIM Sodium Chloride (0.9 % Sodium Chloride Flush 3 Ml Syringe) 3 ml IVFLUSH QSHIFT [facility] Last Admin: 08/18/22 09:10 Dose: 3 ml Documented By: TIM Vitamin D (Cholecalciferol (Vitamin D3) 25 Mcg Tablet) 50 mcg PO DAILY [facility] Last Admin: 08/18/22 09:11 Dose: 50 mcg Documented By: TIM Labs CBC & Chem 7: 08/18/22 07:52 08/18/22 07:52 Labs: Laboratory Results - last 24 hr 08/18/22 08/18/22 07:52 07:52 MCV 88.6 MCH 28.0 MCHC 31.6 RDW 13.0 Plt Count 359 MPV 9.8 Immature Gran % (Auto) 0.3 Neut % (Auto) 75.3 H Lymph % (Auto) 11.3 L Pratt % (Auto) 12.8 H Eos % (Auto) 0.0 Baso % (Auto) 0.3 Lymph # (Auto) 1.2 Pratt # (Auto) 1.4 H Eos # (Auto) 0.0 Baso # (Auto) 0.0 Abs Immat Gran (auto) 0.03 Absolute Neuts (auto) 8.1 Absolute Nucleated RBC 0.000 Nucleated RBC % (auto) 0.0 Estim Creat Clear Calc 26.4 Estimated GFR 29 Assessment and Plan (1) UTI (urinary tract infection): Status: Acute (2) Sepsis: Status: Acute (3) Bladder mass: Status: Acute Plan 77-year-old female with a history of recurrent bladder cancer s/p BCG recently rediagnosed who presents to the ER for evaluation of difficulty urinating, dysuria and left lower quadrant and pelvic pain-as per the patient she has on and off dysuria symptoms from long time and had a cystoscopy- UTI/sepsis: 1.UTI/sepsis Afebrile, WBC trending down. Still with mild tachycardia (likely related to infection as well as unmanaged pain) but continues to improve, vitals otherwise stable Abnormal UA, microscopic hematuria CT abdomen-did not show any stone or obstruction Urine and blood culture -staph coagulase negative contaminant, urine culture Enterococcus faecium /Klebsiella sensitive to Levaquin. Switched to Levaquin, DC vanco since blood culture possible contaminant. Urology evaluation-continue IV antibiotic levquin day5,TUBRT next week. Discussed plan to transition to PO levaquin tomorrow (total duration 7 days) and discharge this weekend with plan for TURBT per urology next week as scheduled. 2. History of bladder cancer: ?? Possible that recurrent pain is due to bladder cancer related.? Pain control with lidocaine patch, pyridium. Patient refuses other pain medication due to history adverse reaction (advised we can treat nausea/vomiting if needed, but still refuses) TURBT as above 3. Severe persistent asthma: continue? DuoNebs change to prn, home meds. 4. Hypertension : Blood pressures so far stable, home medication. 5.hlp: continue medication. DVT prophylaxis with subQ Lovenox Dispo- transition to PO levaquin tomorrow and discharge. ongoing inpatient hospitalization stay:? sepsis/UTI/history of bladder cancer will benefit from IV antibiotic, possible bladder cancer surgery . Quality Stroke Does the patient have a stroke diagnosis?: No VTE Prior VTE?: No VTE Risk Level:: Medical - moderate - high VTE Device Contraindication: N/A - Device Ordered VTE Drug Contraindication: N/A - Med Ordered
[2022-08-18 11:32] VITALS: BP 140/72; PULSE 97; RESP 14; TEMP 36.9; O2SAT 94
[2022-08-18 15:10] VITALS: BP 150/82; PULSE 80; RESP 16; TEMP 36.2; O2SAT 98
[2022-08-18] MEDS: levoFLOXacin/D5W 750 MG/150 ML PIGGYBACK 100 MG IV (15:57)
[2022-08-18] MEDS: ondansetron HCL 4 MG/2 ML VIAL IVPUSH (15:57)
[2022-08-18 19:26] VITALS: BP 166/96; PULSE 104; RESP 16; TEMP 36.4; O2SAT 94
[2022-08-18] MEDS: Enoxaparin Sodium 40 MG/0.4 ML SYRINGE SUBCUT (20:53)
[2022-08-19] VITALS (7 sets, daily range): BP systolic 119–146; BP diastolic 61–78; PULSE 102–114; RESP 16–20; TEMP 36.2–37.1; O2SAT 90–95
[2022-08-19 07:26] LABS: Creatinine Clr Calc Pharmacy 24.2; Estimated Glomerular Filt Rate 26
[2022-08-19 08:31] LABS: Anion Gap 15 (12-20); Blood Urea Nitrogen 34 mg/dL (9-16); Calcium 8.7 mg/dL (8.4-10.2); Carbon Dioxide 24 mmol/L (22-29); Chloride 106 mmol/L (96-108); Glucose Random 79 mg/dL (60-115); Potassium 4.4 mmol/L (3.3-5.1); Sodium 141 mmol/L (135-145)
[2022-08-19] MEDS: Lidocaine 4 % Patch ADH..PATCH 1 PATCH TRANSDERMA (10:12)
[2022-08-19] MEDS: Aspirin Enteric Coated 81 MG TABLET.DR PO (10:13)
[2022-08-19] MEDS: Pravastatin Sodium 40 MG TABLET PO (10:13)
[2022-08-19] MEDS: lisinopriL 5 MG TABLET 15 MG PO (10:14)
[2022-08-19] MEDS: Cholecalciferol (Vitamin D3) 25 MCG TABLET 50 MCG PO (10:14)
[2022-08-19] MEDS: HYDROmorphone HCl 0.5 MG/0.5 ML SYRINGE 0.25 MG IVPUSH ×2 (12:10→19:49)
[2022-08-19] MEDS: polyethylene glycoL 3350 17 GM POWD.PACK PO (13:26)
[2022-08-19] MEDS: 0.9 % Sodium Chloride 1,000 ML 999 ML IV (13:27)
--- NOTE | 2022-08-19 14:42 | HO.PM.IMPN ---
Subjective Subjective Date of Service: 08/19/22 Interval History: seen in follow-up for: UTI/sepsis/bladder cancer interval history:Patient still has significant dysuria (10/10 pain with urination), had been urinating well but since yesterday only small amount and dribbles. 8/10 suprapebic pain at rest. Has been refusing medication due to history adverse reaction. Also now reporting dysphagia primarily with liquids and globus sensation. denies any fever or chills or nausea or vomiting ore reflux. No hematuria Review of Systems General: No fevers, malaise, unintentional weight loss HEENT: No blurred vision, diplopia. Cardiovascular: No chest pain, palpitations, or leg edema Respiratory: No shortness of breath, wheezing, cough GI: +dysphagia, +globus sensation. No abdominal pain, nausea, vomiting, diarrhea, constipation, reflux : +dysuria, +suprapubic pressure. No hematuria, increased urinary frequency, decreased urinary output MSK: No myalgia, back pain Neuro: No headaches, weakness, paresthesias Skin: No rashes or lesions Physical Exam Vital Signs: Vital Signs: Last Vital Signs Temp 98.8 F 08/19/22 11:20 Pulse 102 H 08/19/22 11:20 Resp 20 08/19/22 11:20 BP 140/73 H 08/19/22 11:20 Pulse Ox 93 08/19/22 11:20 O2 Del Method 08/19/22 11:20 BMI result Body Mass Index 25.4 Constitutional - Awake and Alert, No apparent distress Eyes - PERRLA, EOMI Cardiovascular - S1S2, RRR, No edema Respiratory - Normal lung expansion, Normal respiratory effort, No respiratory distress, CTA bilaterally Gastrointestinal - Suprapubic distension with moderate diffuse tenderness to palpation. ND; +BS; No rebound or guarding Extremities - no calf tenderness bilaterally, no swelling Skin - Warm/Dry Neurological - Alert & oriented x3 Psychological - Appropriate affect Objective Data Active Medications Acetaminophen (Acetaminophen 325 Mg Tablet) 650 mg PO Q6H [facility] Last Admin: 08/19/22 10:14 Dose: Not Given Documented By: LEANDRO Non-Admin Reason: Patient Refused Albuterol/Ipratropium (Albuterol/Iprat 2.5/0.5mg 3 Ml Ampul.Neb) 3 ml INHALE Q3H PRN PRN Reason: sob Aspirin (Aspirin Enteric Coated 81 Mg Tablet.) 81 mg PO DAILY [facility] Last Admin: 08/19/22 10:13 Dose: 81 mg Documented By: LEANDRO Docusate Sodium (Docusate Sodium 100 Mg Capsule) 100 mg PO BID PRN PRN Reason: Constipation Enoxaparin Sodium (Enoxaparin Sodium 30 Mg/0.3 Ml Syringe) 30 mg SUBCUT Q24H [facility] Hydrocortisone (Hydrocortisone 2.5 % Rectal Cr 30 Gm Tube) 1 appl [place] QID PRN PRN Reason: hemorrhoids Last Admin: 08/17/22 09:14 Dose: 1 appl Documented By: TIM Hydromorphone HCl (Hydromorphone Hcl 0.5 Mg/0.5 Ml Syringe) 0.5 mg IVPUSH Q4H PRN; Protocol PRN Reason: Pain, Severe (Pain Scale 7-10) Hydroxyzine HCl (Hydroxyzine Hcl 25 Mg Tablet) 25 mg PO QID PRN PRN Reason: Anxiety Levofloxacin (Levaquin) 750 mg in 150 mls @ 100 mls/hr IV Q24H [facility] Last Infusion: 08/18/22 17:54 Dose: 0 mls/hr Documented By: TIM Lidocaine (Lidocaine 4 % Patch Adh..Patch) 1 patch TRANSDERMA DAILY [facility]; Protocol Last Admin: 08/19/22 10:12 Dose: 1 patch Documented By: LEANDRO Lisinopril (Lisinopril 5 Mg Tablet) 15 mg PO DAILY [facility]; Protocol Last Admin: 08/19/22 10:14 Dose: 15 mg Documented By: LEANDRO Non-Formulary Medication (Benralizumab [Fasenra]) 30 mg SUBCUT Q8W [facility] Non-Formulary Medication (Linaclotide [Linzess]) 145 mcg PO DAILY [facility] Omeprazole (Omeprazole 20 Mg Capsule.) 20 mg PO BID PRN PRN Reason: Acid Reflux Ondansetron HCl (Ondansetron Hcl 4 Mg/2 Ml Vial) 4 mg IVPUSH Q6H PRN PRN Reason: Nausea Last Admin: 08/18/22 15:57 Dose: 4 mg Documented By: TIM Pharmacy Consult (Consult Rx Perform Med Rec) 1 each MISCELLANE ONCE PRN PRN Reason: Consult order Phenazopyridine HCl (Phenazopyridine Hcl 200 Mg Tablet) 200 mg PO Q8H PRN PRN Reason: pain with urination Last Admin: 08/18/22 09:23 Dose: 200 mg Documented By: TIM Polyethylene Glycol (Polyethylene Glycol 3350 17 Gm Powd.Pack) 17 gm PO DAILY [facility] Last Admin: 08/19/22 13:26 Dose: 17 gm Documented By: LEANDRO Pravastatin Sodium (Pravastatin Sodium 40 Mg Tablet) 40 mg PO DAILY [facility] Last Admin: 08/19/22 10:13 Dose: 40 mg Documented By: LEANDRO Sodium Chloride (0.9 % Sodium Chloride Flush 3 Ml Syringe) 3 ml IVFLUSH QSHIFT [facility] Last Admin: 08/19/22 10:14 Dose: Not Given Documented By: LEANDRO Non-Admin Reason: No IV Access Vitamin D (Cholecalciferol (Vitamin D3) 25 Mcg Tablet) 50 mcg PO DAILY [facility] Last Admin: 08/19/22 10:14 Dose: 50 mcg Documented By: LEANDRO Labs CBC & Chem 7: 08/18/22 07:52 08/19/22 06:17 Labs: Laboratory Results - last 24 hr 08/19/22 06:17 Anion Gap 15 Estim Creat Clear Calc 24.2 Estimated GFR 26 Random Glucose 79 Calcium 8.7 D Microbiology Microbiology Results: Microbiology 08/13/22 12:06 Blood Culture - Final Blood - Venous No growth after 5 days. Assessment and Plan (1) UTI (urinary tract infection): Status: Acute (2) Sepsis: Status: Acute (3) Bladder mass: Status: Acute Plan 77-year-old female with a history of recurrent bladder cancer s/p BCG recently rediagnosed who presents to the ER for evaluation of difficulty urinating, dysuria and left lower quadrant and pelvic pain-as per the patient she has on and off dysuria symptoms from long time and had a cystoscopy- UTI/sepsis: #NADEEN- secondary to urinary retention r/t bladder cancer - 1.86, BUN 34 (baseline Cr 1.09) -Multiple attempts at straight cath made without success. Has been straight cath'd twice since admission. Attempts to insert lazo given recurrent retention unsuccessful by nursing. Lazo successfully inserted by urology. -Strict I&O -1L IVF bolus -Follow BMP -Avoid nephrotoxins. Low dose dilaudid for pain management given history adverse effects with alternative pain meds #Dysphagia -primarily with liquids, associated with globus sensation -BAKERY ASSISTANT consult placed #UTI/sepsis Afebrile, WBC trending down. Still with mild tachycardia (likely related to infection as well as unmanaged pain) but continues to improve, vitals otherwise stable Abnormal UA, microscopic hematuria CT abdomen admission-did not show any stone or obstruction Urine and blood culture -staph coagulase negative contaminant, urine culture Enterococcus faecium /Klebsiella sensitive to Levaquin. Switched to Levaquin, DC vanco since blood culture possible contaminant. Urology evaluation continue IV antibiotic levquin day6,TUBRT next week. Total duration 7 days. Discussed plan to transition to PO levaquin tomorrow (total duration 7 days) # History of bladder cancer: ?? Possible that recurrent pain is due to bladder cancer related.? Pain control with lidocaine patch, pyridium. Patient refuses other pain medication due to history adverse reaction (advised we can treat nausea/vomiting if needed, but still refuses) TURBT next week per urology # Severe persistent asthma: continue? DuoNebs change to prn, home meds. # Hypertension : Blood pressures so far stable, home medication. # hlp: continue medication. DVT prophylaxis with subQ Lovenox- dose adjusted d/t NADEEN ongoing inpatient hospitalization stay:? sepsis/UTI/history of bladder cancer will benefit from IV antibiotic, possible bladder cancer surgery . Quality Stroke Does the patient have a stroke diagnosis?: No VTE Prior VTE?: No VTE Risk Level:: Medical - moderate - high VTE Device Contraindication: N/A - Device Ordered VTE Drug Contraindication: N/A - Med Ordered
[2022-08-19] MEDS: levoFLOXacin/D5W 750 MG/150 ML PIGGYBACK 100 MG IV (15:39)
[2022-08-19] MEDS: 0.9 % Sodium Chloride Flush 3 ML SYRINGE IVFLUSH (15:39)
--- NOTE | 2022-08-19 16:11 | MHC.SL.SWA ---
Speech Pathologist Impression: Pharyngeal phase dysphagia Risk of Aspiration Due to: None Dysphasia Diet Status: No Change Liquid Consistency and Strategies for Safe Swallow: Liquid Intake Recommendation: Thin Liquid Intake Strategies: Small Sips No Straws Double Swallow Solid Food Consistency: Dietary Recommendations: Regular Additional Modifications to Solid Foods: Moisten foods with sauces and gravies Oral Medication Intake: Crushed with Puree Please contact the pharmacy regarding appropriate crushable or liquid drug formulations that are available whenever modified delivery is recommended. Compensatory Strategies and Precautions to be Taken for Safe Swallow: Sitting Upright (90 deg) Double Swallow No Straw Small Bites and Sips Alternate Liquids/Solids Rate of Ingestion Change Avoid Specific Foods Supervision While Eating and Drinking for Safe Swallow: Intermittent Supervision Foods to Avoid: Tough, hard to chew solids, dry/sticky foods Swallowing Recommended Treatments: Compens. Strategy Educat. Recommendation for Speech: Inpatient Speech Therapy Modified Barium Swallow Study - Outpatient When asked when pt's difficulties began, pt stated This has always happened. Pt then recalled having a surgery in her throat and having problems swallowing after this surgery. Pt stated that she must eat and swallow slowly and that it takes her a long time to finish a meal. Pt reported that food and liquids feel like they stop and then they go down. Recommend the following strategies: chew food well, moisten food with sauces and gravies, alternate bites of food with sips of liquid, avoid tough hard to chew solids, upright 90 degree position when eating and drinking, small sips, one sip at a time (avoid chugging), double swallow as needed. Additionally pt may benefit from MBSS, which can be done on outpatient basis, due to reports of globus sensation. Dough Cutting Machine Operator Clinican/Clinical Fellow: Yes: Salud Foreman Supervisory Statement: I have reviewed and agree with the student/clinical fellow's documentation: N/A Speech Language Pathologist: Nilda Vines M.A., CCC-WHEELCHAIR VAN OPERATOR FIRST RESPONDER
[2022-08-19] MEDS: Enoxaparin Sodium 30 MG/0.3 ML SYRINGE SUBCUT (19:41)
[2022-08-20] MEDS: 0.9 % Sodium Chloride Flush 3 ML SYRINGE IVFLUSH ×3 (01:29→20:39)
[2022-08-20 03:13] VITALS: BP 136/64; PULSE 98; RESP 18; TEMP 36.2; O2SAT 93
[2022-08-20] MEDS: HYDROmorphone HCl 0.5 MG/0.5 ML SYRINGE 0.25 MG IVPUSH (05:51)
[2022-08-20 07:02] LABS: MANUAL DIFF FLAG NO
[2022-08-20 07:06] LABS: Basophils Percent Auto 0.2 % (0-2); Hematocrit 37.7 % (37.0-47.0); Hemoglobin 11.8 g/dl (12.0-16.0); Imm Gran Abs Auto 0.07 X10*3/uL (0.00-0.03); Imm Gran Pct Auto 0.6 % (0.0-0.4); Lymphocytes Absolute Auto 1.3 X10*3/uL (1.2-4.9); Lymphocytes Percent Auto 11.2 % (20-40); Mean Corpuscular HGB Conc 31.3 g/dl (31.0-35.0); Mean Corpuscular Hemoglobin 27.7 pg (27.0-33.0); Mean Corpuscular Volume 88.5 fL (80.0-98.0); Mean Platelet Volume 9.6 fL (9.4-12.3); Monocytes Absolute Auto 1.2 X10*3/uL (0.1-1.2); Monocytes Percent Auto 10.3 % (2-11); Neutrophils Percent Auto 77.7 % (45-73); Platelet Count 381 X10*3/uL (160-400); Red Blood Count 4.26 X10*6/uL (4.20-5.50); Red Cell Distribution Width 12.8 % (11.0-16.0); White Blood Count 11.6 X10*3/uL (4.8-10.8)
[2022-08-20 07:26] VITALS: BP 133/78; PULSE 85; RESP 18; TEMP 36.9; O2SAT 95
[2022-08-20 07:37] LABS: Anion Gap 19 (12-20); Blood Urea Nitrogen 28 mg/dL (9-16); Calcium 8.6 mg/dL (8.4-10.2); Carbon Dioxide 19 mmol/L (22-29); Chloride 108 mmol/L (96-108); Creatinine Clr Calc Pharmacy 41.1; Estimated Glomerular Filt Rate 48; Glucose Random 60 mg/dL (60-115); Potassium 4.3 mmol/L (3.3-5.1); Sodium 142 mmol/L (135-145)
[2022-08-20 07:44] VITALS: RESP 12
[2022-08-20] MEDS: lisinopriL 5 MG TABLET 15 MG PO (09:49)
[2022-08-20] MEDS: Pravastatin Sodium 40 MG TABLET PO (09:49)
[2022-08-20] MEDS: Cholecalciferol (Vitamin D3) 25 MCG TABLET 50 MCG PO (09:49)
[2022-08-20] MEDS: Lidocaine 4 % Patch ADH..PATCH 1 PATCH TRANSDERMA (09:50)
[2022-08-20] MEDS: polyethylene glycoL 3350 17 GM POWD.PACK PO (09:50)
[2022-08-20 11:22] VITALS: BP 125/77; PULSE 80; RESP 17; TEMP 36.6; O2SAT 98
[2022-08-20] MEDS: Nystatin Oral Susp 500,000 UNIT/5 ML ORAL.SUSP 400000 UNIT PO ×3 (14:59→20:33)
--- NOTE | 2022-08-20 15:47 | P.DS_ITS ---
DS: Providers Provider Date of Service: 08/20/22 Date of admission: 08/13/22 16:09 Date of discharge: 08/20/22 Primary care physician: Angeline Klein MD Admitting clinician: Hoa Thompson Attending physician on admission: Hoa Thompson Consults: 08/14/22 07:41 Consult to Urology Routine Consulting Provider: [facility] Reason for consultation: Sepsis/uti Has provider been notified: No 08/14/22 14:40 Consult to Infectious Diseases Routine Consulting Provider: Samreen Shaffer Reason for consultation: uti/sepsis/?bactermia Has provider been notified: No Attending physician on discharge: Jairon Reyes Discharging clinician: Shamika Cruz DS: Diagnosis Discharge Diagnosis (1) UTI (urinary tract infection): Status: Acute (2) Sepsis: Status: Acute (3) Bladder mass: Status: Acute DS: Summary Hospital Course Hospital Course: HPI on admission by Dr. Thompson 08/13/2022: 77-year-old female with a history of recurrent bladder cancer s/p BCG recently rediagnosed who presents to the ER for evaluation of difficulty urinating, dysuria and left lower quadrant and pelvic pain-as per the patient she has on and off dysuria symptoms from long time and had a cystoscopy 2 days back-as per urology notes:?papillary tumor and erythematous flat changes posterior wall, question of urethral erythema and was given doxycycline for that and went home and she continued to have pain which more seems like chronic, but on top of that patient is having fever and leukocytosis, abnormal UA so in the ED-patient admission was requested for sepsis secondary to UTI. In further discussion with urologist:? Patient had cystoscopy:? And patient did not do well with p.o. antibiotic so recommended IV antibiotics presently, of note patient is also due for bladder surgery coming week. Patient denies any chest pain or cough or phlegm or weakness or numbness or? vomiting or diarrhea . Hospital Course: Patient admitted to [facility] [place] [place] for UTI with sepsis. Initially treated with ampicillin and levaquin given recent cystoscopy prior to admission. She was evaluated by ID recommending Zosyn to cover most organisms. She was also seen by Dr. Crystal in urology, with whom she follows outpatient. Plan was for TURBT on 08/16, however patient ate breakfast and procedure was canceled. Not rescheduled during admission. Urine culture resulted positive for klebsiella and enterococcus faecalis susceptible to levaquin. All other antibiotics dc'd at that time. Blood cultures with coag negative staph x 1, otherwise negative. She completed 7 day course of levaquin. WBC trended down and vitals normalized with treatment, sepsis resovled. Pain was treated with dilaudid prn for severe pain. Patient was noted to have urinary retention requiring straight catheterization on several occassions. As a result of her retention creatine levels did elevate to 1.81 on Day6. As a result lazo catheter was inserted, though multiple attempts were made by nursing staff unsucessfully and catheter was placed by Dr. Crystal in urology. 1400ml urine collected with insertion. Now draining red urine without clots. H/H stable. Likely secondary to trauma. Patient will be discharged home with lazo catheter and is instructed to empty often. She needs to follow up this week with Dr. Crystal and TURBT procedure should be rescheduled for this week. She did develop oral thrush following abx and is discharged with nystatin swish and swallow x 10 days. Can continue miralax for constipation prn and her linezz. Follow up with pcp. Time spent discussing smoking cessation with patient: more than 10 minutes Status at Discharge Functional status at discharge: independent ambulation Overall status at discharge: patient is back to baseline Time Spent with Patient Time attestation: Total time managing care of this patient today 40 minutes. Discharge coordination time: Greater than 30 minutes Quality: Safe Use of Opioids Does Pt have an Active Cancer Diagnosis on the Problem List?: Yes Opioid Measure Date for [facility] Report: 07/21/22 Opioid Measure Time for [facility] Report: 16:09 Quality: Stroke Does the patient have a stroke diagnosis?: No Physical Exam Vital Signs: Vital Signs: Last Vital Signs Temp 97.9 F 08/20/22 11: Pulse 80 08/20/22 11:22 Resp 17 08/20/22 11:22 BP 125/77 08/20/22 11:22 Pulse Ox 98 08/20/22 11:22 O2 Del Method 08/20/22 11:22 BMI result Body Mass Index 25.4 Constitutional - Awake and Alert, No apparent distress Eyes - PERRLA, EOMI Cardiovascular - S1S2, RRR, No edema Respiratory - Normal lung expansion, Normal respiratory effort, No respiratory distress, CTA bilaterally Gastrointestinal - NT / ND; +BS; No rebound or guarding - lazo in place draining red urine Extremities - no calf tenderness bilaterally, no swelling Skin - Warm/Dry Neurological - Alert & oriented x3 Psychological - Appropriate affect DS: Data Data Completed and Pending Labs on day of discharge: Laboratory Results - last 24 hr 08/20/22 08/20/22 06:53 06:53 WBC 11.6 H RBC 4.26 Hgb 11.8 L Hct 37.7 MCV 88.5 MCH 27.7 MCHC 31.3 RDW 12.8 Plt Count 381 MPV 9.6 Immature Gran % (Auto) 0.6 H Neut % (Auto) 77.7 H Lymph % (Auto) 11.2 L [place] % (Auto) 10.3 Eos % (Auto) 0.0 Baso % (Auto) 0.2 Lymph # (Auto) 1.3 [place] # (Auto) 1.2 Eos # (Auto) 0.0 Baso # (Auto) 0.0 Abs Immat Gran (auto) 0.07 H Absolute Neuts (auto) 9.0 H Absolute Nucleated RBC 0.000 Nucleated RBC % (auto) 0.0 Sodium 142 Potassium 4.3 Chloride 108 Carbon Dioxide 19 L Anion Gap 19 BUN 28 H Creatinine 1.10 Estim Creat Clear Calc 41.1 Estimated GFR 48 Random Glucose 60 Calcium 8.6 Discharge Plan Discharge Anticipated Discharge Date/Time: 08/20/22 15:06 Patient Disposition: Home Health Service Discharge Diagnosis: UTI, sepsis, NADEEN secondary to urinary retention Referrals: Yolande Warner MD [Physician] - 1 Week Severo Blair MD [Physician] - 1 Week Angeline Klein MD [Primary Care Provider] - 1 Week Discharge Medications: New polyethylene glycol 3350 17 gram Powder In Packet 17 g PO DAILY PRN (Reason: constipation) Qty: 30 0RF nystatin 100,000 unit/mL Suspension 400,000 unit PO QID 10 Days Qty: 160 0RF Protocol: Apply to: Apply to: swish and swallow Continued Fasenra 30 mg/mL syringe 30 mg subcut Q8W 30 Days Qty: 1 12RF Label Comments: DUE 09/01/22 Flovent HFA 110 mcg/actuation HFA aerosol inhaler 1 puff inhalation BID Qty: 12 3RF albuterol sulfate 2.5 mg /3 mL (0.083 %) solution for nebulization 3 ml inhalation Q6H PRN (Reason: Shortness Of Breath Or Wheezing) hydrocortisone [Proctosol HC] 2.5 % cream with perineal applicator 1 appl PA BID-QID PRN (Reason: hemorrhoids) acetaminophen [Tylenol] 325 mg Tablet 650 mg PO QID PRN (Reason: Headache) aspirin 81 mg tablet,delayed release (DR/EC) 81 mg PO DAILY albuterol sulfate 90 mcg/actuation HFA aerosol inhaler 2 puff inhalation Q4-6H PRN (Reason: Shortness Of Breath Or Wheezing) hydroxyzine HCl 25 mg tablet 25 mg PO QID PRN (Reason: Anxiety) lisinopril 10 mg tablet 15 mg PO DAILY cholecalciferol (vitamin D3) 50 mcg (2,000 unit) capsule 50 mcg PO DAILY Combivent Respimat 20-100 mcg/actuation mist 1 puff PO QID PRN (Reason: Shortness Of Breath Or Wheezing) pravastatin 40 mg tablet 40 mg PO DAILY Linzess 145 mcg capsule 145 mcg PO DAILY estradiol 0.01 % (0.1 mg/gram) cream 1 appl vaginal MOWEFR@0900 Rx Instructions: pea-sized to urethra 3 times a week phenazopyridine [Pyridium] 200 mg tablet 200 mg PO Q8H PRN (Reason: pain with urination) Qty: 20 0RF omeprazole 40 mg capsule,delayed release(DR/EC) 20 mg PO BID PRN (Reason: Acid Reflux) Diet: Regular diet Activity on Discharge: As tolerated Stand Alone Forms: Patient Portal Discharge page Care Plan Goals: Continue lazo catheter until urology procedure this week. Empty regularly to prevent UTI. Bladder tumor resection as scheduled Health Concerns: UTI with sepsis Urinary retention secondary to bladder cancer Acute kidney injury Plan of Treatment: You have completed course of levaquin (antibiotic) to treat your urinary tract infection. No further antibiotics required. Your sepsis has resolved wtih treatment for the infection. You developed an acute kidney injury due to the back up of urine/urinary retention that occurred secondary to your bladder can cer. Given you needed to have straight catheterization multiple times during admission, a lazo catheter was placed instead since this will continue to recur until the bladder cancer is addressed this week with TURBT as scheduled with Dr. Crystal. You will be discharged home with the lazo catheter to prevent recurrent urinary retention. There were a number of attempts made to insert the lazo which resulted in trauma which is why there is a blood tinge in the urine. Your blood counts are stable and there are no clots so this is ok and is not alarming. It will clear up on its own. If you noticed clots in the urine return to the ER. Change the bag often as instructed to prevent UTI. Follow up with Dr. Crystal as scheduled. You can use miralax if needed for constipation. You also developed oral thrush, yeast infection, following antibiotic use. Swish and swallow the nystatin 4 times daily to clear the thrush. Assessment: See above
--- NOTE | 2022-08-20 16:36 | HO.PM.IMPN ---
Subjective Subjective Date of Service: 08/20/22 Interval History: seen in follow-up for: UTI/sepsis/bladder cancer interval history: Lazo catheter placed yesterday by urology following multiple attempts by nursing. Now with red urine output, no clots observed. Patient denies any abd pain, n/v, dysuria. She is also reporting dry throat, mouth, sore throat. Still having trouble swallowing liquids. Review of Systems General: No fevers, malaise, unintentional weight loss HEENT: +sore throat, +dry mouth Cardiovascular: No chest pain, palpitations, or leg edema Respiratory: No shortness of breath, wheezing, cough GI: +dysphagia, +globus sensation. No abdominal pain, nausea, vomiting, diarrhea, constipation, reflux :+hematuria. No dysuria, increased urinary frequency, decreased urinary output Neuro: No headaches, weakness, paresthesias Skin: No rashes or lesions Physical Exam Vital Signs: Vital Signs: Last Vital Signs Temp 97.9 F 08/20/22 11: Pulse 80 08/20/22 11: Resp 17 08/20/22 11:22 BP 125/77 08/20/22 11:22 Pulse Ox 98 08/20/22 11:22 O2 Del Method 08/20/22 11:22 BMI result Body Mass Index 25.4 Constitutional - Awake and Alert, No apparent distress Eyes - PERRLA, EOMI Cardiovascular - S1S2, RRR, No edema Respiratory - Normal lung expansion, Normal respiratory effort, No respiratory distress, CTA bilaterally Gastrointestinal - NT / ND; +BS; No rebound or guarding - lazo in place draining red urine Extremities - no calf tenderness bilaterally, no swelling Skin - Warm/Dry Neurological - Alert & oriented x3 Psychological - Appropriate affect Objective Data Active Medications Acetaminophen (Acetaminophen 325 Mg Tablet) 650 mg PO Q6H [facility] Last Admin: 08/20/22 09:53 Dose: Not Given Documented By: ENOCH Non-Admin Reason: Patient Refused Aspirin (Aspirin Enteric Coated 81 Mg Tablet.) 81 mg PO DAILY [facility] Last Admin: 08/20/22 09:53 Dose: Not Given Documented By: ENOCH Non-Admin Reason: Patient Refused Docusate Sodium (Docusate Sodium 100 Mg Capsule) 100 mg PO BID PRN PRN Reason: Constipation Enoxaparin Sodium (Enoxaparin Sodium 30 Mg/0.3 Ml Syringe) 30 mg SUBCUT Q24H [facility] Last Admin: 08/19/22 19:41 Dose: 30 mg Documented By: DARLYN Hydrocortisone (Hydrocortisone 2.5 % Rectal Cr 30 Gm Tube) 1 appl FL QID PRN PRN Reason: hemorrhoids Last Admin: 08/17/22 09:14 Dose: 1 appl Documented By: TIM Hydromorphone HCl (Hydromorphone Hcl 0.5 Mg/0.5 Ml Syringe) 0.25 mg IVPUSH Q4H PRN; Protocol PRN Reason: Pain, Severe (Pain Scale 7-10) Last Admin: 08/20/22 05:51 Dose: 0.25 mg Documented By: DARLYN Hydroxyzine HCl (Hydroxyzine Hcl 25 Mg Tablet) 25 mg PO QID PRN PRN Reason: Anxiety Levofloxacin (Levaquin) 750 mg in 150 mls @ 100 mls/hr IV Q24H [facility] Last Admin: 08/20/22 15:02 Dose: Not Given Documented By: ENOCH Non-Admin Reason: Patient Refused Lidocaine (Lidocaine 4 % Patch Adh..Patch) 1 patch TRANSDERMA DAILY [facility]; Protocol Last Admin: 08/20/22 09:50 Dose: 1 patch Documented By: ENOCH Lisinopril (Lisinopril 5 Mg Tablet) 15 mg PO DAILY [facility]; Protocol Last Admin: 08/20/22 09:49 Dose: 15 mg Documented By: ENOCH Non-Formulary Medication (Linaclotide [Linzess]) 145 mcg PO DAILY [facility] Nystatin (Nystatin Oral Susp 500,000 Unit/5 Ml Oral.Susp) 400,000 unit PO QID [facility]; Protocol Stop: 08/29/22 21:01 Last Admin: 08/20/22 14:59 Dose: 400,000 unit Documented By: ENOCH Omeprazole (Omeprazole 20 Mg Capsule.Dr) 20 mg PO BID PRN PRN Reason: Acid Reflux Ondansetron HCl (Ondansetron Hcl 4 Mg/2 Ml Vial) 4 mg IVPUSH Q6H PRN PRN Reason: Nausea Last Admin: 08/18/22 15:57 Dose: 4 mg Documented By: TIM Pharmacy Consult (Consult Rx Perform Med Rec) 1 each MISCELLANE ONCE PRN PRN Reason: Consult order Phenazopyridine HCl (Phenazopyridine Hcl 200 Mg Tablet) 200 mg PO Q8H PRN PRN Reason: pain with urination Last Admin: 08/18/22 09:23 Dose: 200 mg Documented By: TIM Polyethylene Glycol (Polyethylene Glycol 3350 17 Gm Powd.Pack) 17 gm PO DAILY [facility] Last Admin: 08/20/22 09:50 Dose: 17 gm Documented By: ENOCH Pravastatin Sodium (Pravastatin Sodium 40 Mg Tablet) 40 mg PO DAILY [facility] Last Admin: 08/20/22 09:49 Dose: 40 mg Documented By: ENOCH Sodium Chloride (0.9 % Sodium Chloride Flush 3 Ml Syringe) 3 ml IVFLUSH QSHIFT [facility] Last Admin: 08/20/22 09:50 Dose: 3 ml Documented By: ENOCH Vitamin D (Cholecalciferol (Vitamin D3) 25 Mcg Tablet) 50 mcg PO DAILY [facility] Last Admin: 08/20/22 09:49 Dose: 50 mcg Documented By: ENOCH Labs CBC & Chem 7: 08/20/22 06:53 08/20/22 06:53 Labs: Laboratory Results - last 24 hr 08/20/22 08/20/22 06:53 06:53 MCV 88.5 MCH 27.7 MCHC 31.3 RDW 12.8 Plt Count 381 MPV 9.6 Immature Gran % (Auto) 0.6 H Neut % (Auto) 77.7 H Lymph % (Auto) 11.2 L [place] % (Auto) 10.3 Eos % (Auto) 0.0 Baso % (Auto) 0.2 Lymph # (Auto) 1.3 [place] # (Auto) 1.2 Eos # (Auto) 0.0 Baso # (Auto) 0.0 Abs Immat Gran (auto) 0.07 H Absolute Neuts (auto) 9.0 H Absolute Nucleated RBC 0.000 Nucleated RBC % (auto) 0.0 Anion Gap 19 Estim Creat Clear Calc 41.1 Estimated GFR 48 Random Glucose 60 Calcium 8.6 Assessment and Plan (1) UTI (urinary tract infection): Status: Acute (2) Sepsis: Status: Acute (3) Bladder mass: Status: Acute Plan 77-year-old female with a history of recurrent bladder cancer s/p BCG recently rediagnosed who presents to the ER for evaluation of difficulty urinating, dysuria and left lower quadrant and pelvic pain-as per the patient she has on and off dysuria symptoms from long time and had a cystoscopy- UTI/sepsis: #NADEEN- secondary to urinary retention r/t bladder cancer- resolved with lazo catheter placement - 1.86, BUN 34 (baseline Cr 1.09)--> 1.10 this morning -Multiple attempts at straight cath made without success. Has been straight cath'd twice since admission. Attempts to insert lazo given recurrent retention unsuccessful by nursing. Lazo successfully inserted by urology yesterday. -Strict I&O -1L IVF bolus -Follow BMP -Avoid nephrotoxins. Low dose dilaudid for pain management given history adverse effects with alternative pain meds #Dysphagia/sore throat- due to oral thrush -Nystatin swich and swallow QID x 10 days #UTI/sepsis- resolved Afebrile, WBC trending down. Still with mild tachycardia (likely related to infection as well as unmanaged pain) but continues to improve, vitals otherwise stable Abnormal UA, microscopic hematuria CT abdomen admission-did not show any stone or obstruction Urine and blood culture -staph coagulase negative contaminant, urine culture Enterococcus faecium /Klebsiella sensitive to Levaquin. Switched to Levaquin, DC vanco since blood culture possible contaminant. Urology evaluation continue IV antibiotic levquin day6,TUBRT next week. Total duration 7 days. Discussed plan to transition to PO levaquin tomorrow (total duration 7 days) # History of bladder cancer with urinary retention ?? Possible that recurrent pain is due to bladder cancer related.? Pain control with lidocaine patch, pyridium. Patient refuses other pain medication due to history adverse reaction (advised we can treat nausea/vomiting if needed, but still refuses) TURBT next week per urology Lazo placed by urology after multiple failed attempts by nursing and multiple straight catheterizations throughout admission due to retention. Urine initially light red, now darker red. No clots Hold discharge until tomorrow. Hematuria likely secondary to trauma, but follow H/H overnight. # Severe persistent asthma: continue? DuoNebs change to prn, home meds. # Hypertension : Blood pressures so far stable, home medication. # hlp: continue medication. DVT prophylaxis with subQ Lovenox- dose adjusted d/t NADEEN ongoing inpatient hospitalization stay:? sepsis/UTI/history of bladder cancer will benefit from IV antibiotic, possible bladder cancer surgery . Time Spent With Patient Time: Total time managing care of this patient today ____ minutes. Quality Stroke Does the patient have a stroke diagnosis?: No VTE Prior VTE?: No VTE Risk Level:: Medical - moderate - high VTE Device Contraindication: N/A - Device Ordered VTE Drug Contraindication: N/A - Med Ordered
[2022-08-20 20:00] VITALS: BP 130/60; PULSE 102; RESP 20; TEMP 37.3; O2SAT 93
[2022-08-20] MEDS: hydrOXYzine HCL 25 MG TABLET PO (20:36)
[2022-08-20 22:58] VITALS: BP 120/57; PULSE 106; RESP 20; TEMP 36.1; O2SAT 92
[2022-08-21 03:30] VITALS: BP 130/52; PULSE 110; RESP 18; TEMP 36.4; O2SAT 96
[2022-08-21 07:54] VITALS: BP 132/70; PULSE 102; RESP 18; TEMP 36.7; O2SAT 98
[2022-08-21 08:30] LABS: MANUAL DIFF FLAG NO
[2022-08-21 08:44] LABS: Basophils Percent Auto 0.1 % (0-2); Hematocrit 37.8 % (37.0-47.0); Imm Gran Abs Auto 0.04 X10*3/uL (0.00-0.03); Imm Gran Pct Auto 0.4 % (0.0-0.4); Lymphocytes Absolute Auto 1.9 X10*3/uL (1.2-4.9); Lymphocytes Percent Auto 18.1 % (20-40); Mean Corpuscular HGB Conc 31.7 g/dl (31.0-35.0); Mean Corpuscular Hemoglobin 27.6 pg (27.0-33.0); Mean Corpuscular Volume 86.9 fL (80.0-98.0); Mean Platelet Volume 9.4 fL (9.4-12.3); Monocytes Absolute Auto 1.3 X10*3/uL (0.1-1.2); Monocytes Percent Auto 12.4 % (2-11); Neutrophils Absolute Auto 7.1 x10*3/uL (2.0-8.3); Platelet Count 423 X10*3/uL (160-400); Red Blood Count 4.35 X10*6/uL (4.20-5.50); Red Cell Distribution Width 12.8 % (11.0-16.0); White Blood Count 10.3 X10*3/uL (4.8-10.8)
[2022-08-21 08:56] LABS: Blood Urea Nitrogen 26 mg/dL (9-16); Calcium 8.8 mg/dL (8.4-10.2); Creatinine Clr Calc Pharmacy 53.1; Estimated Glomerular Filt Rate > 60; Glucose Random 68 mg/dL (60-115)
[2022-08-21 09:11] LABS: Anion Gap 18 (12-20); Carbon Dioxide 22 mmol/L (22-29); Chloride 107 mmol/L (96-108); Potassium 3.9 mmol/L (3.3-5.1); Sodium 143 mmol/L (135-145)
[2022-08-21] MEDS: Nystatin Oral Susp 500,000 UNIT/5 ML ORAL.SUSP 400000 UNIT PO ×4 (09:51→22:17)
[2022-08-21] MEDS: Cholecalciferol (Vitamin D3) 25 MCG TABLET 50 MCG PO (09:51)
[2022-08-21] MEDS: lisinopriL 5 MG TABLET 15 MG PO (09:52)
[2022-08-21] MEDS: Lidocaine 4 % Patch ADH..PATCH 1 PATCH TRANSDERMA (09:52)
[2022-08-21] MEDS: Pravastatin Sodium 40 MG TABLET PO (09:52)
[2022-08-21] MEDS: 0.9 % Sodium Chloride Flush 3 ML SYRINGE IVFLUSH ×3 (09:53→22:18)
[2022-08-21 12:00] VITALS: BP 120/88; PULSE 98; RESP 17; TEMP 36.7; O2SAT 98
--- NOTE | 2022-08-21 12:31 | P.PNIM_ITS ---
Subjective Subjective Date of Service: 08/21/22 Interval History: seen in follow-up for: UTI/sepsis/bladder cancer interval history: Still with hematuria wtih lazo catheter in place. No clots. Pt denies any abd pain, n/v, dysuria. Still reporting sore throat, dry mouth. Review of Systems General: No fevers, malaise, unintentional weight loss HEENT: +sore throat, +dry mouth Cardiovascular: No chest pain, palpitations, or leg edema Respiratory: No shortness of breath, wheezing, cough GI: No abdominal pain, nausea, vomiting, diarrhea, constipation, reflux :+hematuria. No dysuria, increased urinary frequency, decreased urinary output Neuro: No headaches, weakness, paresthesias Skin: No rashes or lesions Physical Exam Vital Signs: Vital Signs: Last Vital Signs Temp 98.0 F 08/21/22 12:00 Pulse 98 08/21/22 12:00 Resp 17 08/21/22 12:00 BP 120/88 08/21/22 12:00 Pulse Ox 98 08/21/22 12:00 O2 Del Method 08/21/22 12:00 BMI result Body Mass Index 25.4 Constitutional - Awake and Alert, No apparent distress Eyes - PERRLA, EOMI Cardiovascular - S1S2, RRR, No edema Respiratory - Normal lung expansion, Normal respiratory effort, No respiratory distress, CTA bilaterally Gastrointestinal - NT / ND; +BS; No rebound or guarding - lazo in place draining red urine Extremities - no calf tenderness bilaterally, no swelling Skin - Warm/Dry Neurological - Alert & oriented x3 Psychological - Appropriate affect Objective Data Active Medications Acetaminophen (Acetaminophen 325 Mg Tablet) 650 mg PO Q6H [facility] Last Admin: 08/21/22 11:44 Dose: Not Given Documented By: ENOCH Non-Admin Reason: Patient Refused Aspirin (Aspirin Enteric Coated 81 Mg Tablet.) 81 mg PO DAILY [facility] Last Admin: 08/21/22 09:11 Dose: Not Given Documented By: ENOCH Non-Admin Reason: Patient Refused Docusate Sodium (Docusate Sodium 100 Mg Capsule) 100 mg PO BID PRN PRN Reason: Constipation Enoxaparin Sodium (Enoxaparin Sodium 30 Mg/0.3 Ml Syringe) 30 mg SUBCUT Q24H [facility] Last Admin: 08/19/22 19:41 Dose: 30 mg Documented By: DARLYN Hydrocortisone (Hydrocortisone 2.5 % Rectal Cr 30 Gm Tube) 1 appl [place] QID PRN PRN Reason: hemorrhoids Last Admin: 08/17/22 09:14 Dose: 1 appl Documented By: TIM Hydromorphone HCl (Hydromorphone Hcl 0.5 Mg/0.5 Ml Syringe) 0.25 mg IVPUSH Q4H PRN; Protocol PRN Reason: Pain, Severe (Pain Scale 7-10) Last Admin: 08/20/22 05:51 Dose: 0.25 mg Documented By: DARLYN Hydroxyzine HCl (Hydroxyzine Hcl 25 Mg Tablet) 25 mg PO QID PRN PRN Reason: Anxiety Last Admin: 08/20/22 20:36 Dose: 25 mg Documented By: DARLYN Levofloxacin (Levaquin) 750 mg in 150 mls @ 100 mls/hr IV Q24H [facility] Last Admin: 08/20/22 15:02 Dose: Not Given Documented By: ENOCH Non-Admin Reason: Patient Refused Lidocaine (Lidocaine 4 % Patch Adh..Patch) 1 patch TRANSDERMA DAILY [facility]; Protocol Last Admin: 08/21/22 09:52 Dose: 1 patch Documented By: ENOCH Lisinopril (Lisinopril 5 Mg Tablet) 15 mg PO DAILY [facility]; Protocol Last Admin: 08/21/22 09:52 Dose: 15 mg Documented By: ENOCH Non-Formulary Medication (Linaclotide [Linzess]) 145 mcg PO DAILY [facility] Nystatin (Nystatin Oral Susp 500,000 Unit/5 Ml Oral.Susp) 400,000 unit PO QID [facility]; Protocol Stop: 08/29/22 21:01 Last Admin: 08/21/22 09:51 Dose: 400,000 unit Documented By: ENOCH Omeprazole (Omeprazole 20 Mg Capsule.Dr) 20 mg PO BID PRN PRN Reason: Acid Reflux Ondansetron HCl (Ondansetron Hcl 4 Mg/2 Ml Vial) 4 mg IVPUSH Q6H PRN PRN Reason: Nausea Last Admin: 08/18/22 15:57 Dose: 4 mg Documented By: TIM Pharmacy Consult (Consult Rx Perform Med Rec) 1 each MISCELLANE ONCE PRN PRN Reason: Consult order Phenazopyridine HCl (Phenazopyridine Hcl 200 Mg Tablet) 200 mg PO Q8H PRN PRN Reason: pain with urination Last Admin: 08/18/22 09:23 Dose: 200 mg Documented By: TIM Polyethylene Glycol (Polyethylene Glycol 3350 17 Gm Powd.Pack) 17 gm PO DAILY [facility] Last Admin: 08/21/22 10:16 Dose: Not Given Documented By: ENOCH Non-Admin Reason: Patient Refused Pravastatin Sodium (Pravastatin Sodium 40 Mg Tablet) 40 mg PO DAILY [facility] Last Admin: 08/21/22 09:52 Dose: 40 mg Documented By: ENOCH Sodium Chloride (0.9 % Sodium Chloride Flush 3 Ml Syringe) 3 ml IVFLUSH QSHIFT [facility] Last Admin: 08/21/22 09:53 Dose: 3 ml Documented By: ENOCH Vitamin D (Cholecalciferol (Vitamin D3) 25 Mcg Tablet) 50 mcg PO DAILY [facility] Last Admin: 08/21/22 09:51 Dose: 50 mcg Documented By: ENOCH Labs CBC & Chem 7: 08/21/22 08:22 12 08:22 Labs: Laboratory Results - last 24 hr 08/21/22 08/21/22 08:22 08:22 MCV 86.9 MCH 27.6 MCHC 31.7 RDW 12.8 Plt Count 423 H MPV 9.4 Immature Gran % (Auto) 0.4 Neut % (Auto) 69.0 Lymph % (Auto) 18.1 L [place] % (Auto) 12.4 H Eos % (Auto) 0.0 Baso % (Auto) 0.1 Lymph # (Auto) 1.9 [place] # (Auto) 1.3 H Eos # (Auto) 0.0 Baso # (Auto) 0.0 Abs Immat Gran (auto) 0.04 H Absolute Neuts (auto) 7.1 Absolute Nucleated RBC 0.000 Nucleated RBC % (auto) 0.0 Anion Gap 18 Estim Creat Clear Calc 53.1 Estimated GFR > 60 Random Glucose 68 Calcium 8.8 Assessment and Plan (1) UTI (urinary tract infection): Status: Acute (2) Sepsis: Status: Acute (3) Bladder mass: Status: Acute Plan 77-year-old female with a history of recurrent bladder cancer s/p BCG recently rediagnosed who presents to the ER for evaluation of difficulty urinating, dysuria and left lower quadrant and pelvic pain-as per the patient she has on and off dysuria symptoms from long time and had a cystoscopy- UTI/sepsis: #NADEEN- secondary to urinary retention r/t bladder cancer- resolved with lazo catheter placement - 1.86, BUN 34 (baseline Cr 1.09)--> 1.10 this morning -Multiple attempts at straight cath made without success. Has been straight cath'd twice since admission. Attempts to insert lazo given recurrent retention unsuccessful by nursing. Lazo successfully inserted by urology yesterday. -Strict I&O -1L IVF bolus -Follow BMP -Avoid nephrotoxins. Low dose dilaudid for pain management given history adverse effects with alternative pain meds #Hematuria -Following multiple attempts at straight cath and lazo catheterization placed by urology -Still with hematuria, no clots. Likely 2/2 bladder cancer, less likely trauma related at this time. H/H stable -No CBI at this time -Continue lazo, follow H/H -Urology to see in am #Dysphagia/sore throat- due to oral thrush -Nystatin swich and swallow QID x 10 days #UTI/sepsis- resolved Afebrile, WBC trending down. Still with mild tachycardia (likely related to infection as well as unmanaged pain) but continues to improve, vitals otherwise stable Abnormal UA, microscopic hematuria CT abdomen admission-did not show any stone or obstruction Urine and blood culture -staph coagulase negative contaminant, urine culture Enterococcus faecium /Klebsiella sensitive to Levaquin. Switched to Levaquin, DC vanco since blood culture possible contaminant. Urology evaluation Completed 7 days levaquin, TUBRT next week # History of bladder cancer with urinary retention ?? Possible that recurrent pain is due to bladder cancer related.? Pain control with lidocaine patch, pyridium. Low dose dilaudid as above TURBT next week per urology Lazo placed by urology after multiple failed attempts by nursing and multiple straight catheterizations throughout admission due to retention. Urine initially light red, now darker red. No clots Hold discharge # Severe persistent asthma: continue? DuoNebs change to prn, home meds. # Hypertension : Blood pressures so far stable, home medication. # hlp: continue medication. DVT prophylaxis with subQ Lovenox- dose adjusted d/t NADEEN ongoing inpatient hospitalization stay:? sepsis/UTI/history of bladder cancer will benefit from IV antibiotic, possible bladder cancer surgery now with persistent hematuria, monitor H/H . Time Spent With Patient Time: Total time managing care of this patient today ____ minutes. Quality Stroke Does the patient have a stroke diagnosis?: No VTE Prior VTE?: No VTE Risk Level:: Medical - moderate - high VTE Device Contraindication: N/A - Device Ordered VTE Drug Contraindication: N/A - Med Ordered
[2022-08-21 15:33] VITALS: BP 127/59; PULSE 99; RESP 20; TEMP 36.3; O2SAT 94
[2022-08-21] MEDS: levoFLOXacin/D5W 750 MG/150 ML PIGGYBACK 100 MG IV (16:19)
[2022-08-21 19:07] VITALS: BP 150/73; PULSE 99; RESP 18; TEMP 36.5; O2SAT 93
[2022-08-21 22:33] VITALS: BP 161/74; PULSE 101; RESP 18; TEMP 37.1; O2SAT 93
[2022-08-22 03:13] VITALS: BP 129/76; PULSE 88; RESP 18; TEMP 36.2; O2SAT 92
[2022-08-22 07:22] VITALS: BP 135/80; PULSE 86; RESP 18; TEMP 36.7; O2SAT 97
[2022-08-22 07:45] LABS: MANUAL DIFF FLAG NO
[2022-08-22 07:59] LABS: Basophils Absolute Auto 0.1 X10*3/uL (0.0-0.2); Basophils Percent Auto 0.7 % (0-2); Hematocrit 38.2 % (37.0-47.0); Hemoglobin 12.2 g/dl (12.0-16.0); Imm Gran Abs Auto 0.05 X10*3/uL (0.00-0.03); Imm Gran Pct Auto 0.5 % (0.0-0.4); Lymphocytes Absolute Auto 1.9 X10*3/uL (1.2-4.9); Mean Corpuscular HGB Conc 31.9 g/dl (31.0-35.0); Mean Corpuscular Hemoglobin 27.6 pg (27.0-33.0); Mean Corpuscular Volume 86.4 fL (80.0-98.0); Mean Platelet Volume 9.5 fL (9.4-12.3); Monocytes Absolute Auto 1.3 X10*3/uL (0.1-1.2); Monocytes Percent Auto 12.7 % (2-11); NRBC Pct Auto 0.3 /100WBC (0.0-0.2); Neutrophils Absolute Auto 6.8 x10*3/uL (2.0-8.3); Neutrophils Percent Auto 67.1 % (45-73); Platelet Count 458 X10*3/uL (160-400); Red Blood Count 4.42 X10*6/uL (4.20-5.50); Red Cell Distribution Width 12.9 % (11.0-16.0); White Blood Count 10.2 X10*3/uL (4.8-10.8)
[2022-08-22 08:03] LABS: Anion Gap 17 (12-20); Blood Urea Nitrogen 19 mg/dL (9-16); Calcium 8.5 mg/dL (8.4-10.2); Carbon Dioxide 25 mmol/L (22-29); Chloride 105 mmol/L (96-108); Creatinine Clr Calc Pharmacy 60.2; Estimated Glomerular Filt Rate > 60; Glucose Random 82 mg/dL (60-115); Potassium 3.6 mmol/L (3.3-5.1); Sodium 143 mmol/L (135-145)
[2022-08-22] MEDS: Nystatin Oral Susp 500,000 UNIT/5 ML ORAL.SUSP 400000 UNIT PO ×4 (08:16→21:18)
[2022-08-22] MEDS: Cholecalciferol (Vitamin D3) 25 MCG TABLET 50 MCG PO (08:16)
[2022-08-22] MEDS: Aspirin Enteric Coated 81 MG TABLET.DR PO (08:17)
[2022-08-22] MEDS: lisinopriL 5 MG TABLET 15 MG PO (08:17)
[2022-08-22] MEDS: Pravastatin Sodium 40 MG TABLET PO (08:17)
[2022-08-22] MEDS: 0.9 % Sodium Chloride Flush 3 ML SYRINGE IVFLUSH ×3 (08:18→21:21)
[2022-08-22] MEDS: Lidocaine 4 % Patch ADH..PATCH 1 PATCH TRANSDERMA (08:18)
--- NOTE | 2022-08-22 10:22 | P.PNIM_ITS ---
Subjective Subjective Date of Service: 08/22/22 Interval History: seen in follow-up for: UTI/sepsis/bladder cancer interval history: Still with hematuria wtih lazo catheter in place. Urine now rust colored. No clots. Pt denies any abd pain, n/v, dysuria. Sore throat improved Review of Systems General: No fevers, malaise, unintentional weight loss HEENT: +sore throat, +dry mouth Cardiovascular: No chest pain, palpitations, or leg edema Respiratory: No shortness of breath, wheezing, cough GI: No abdominal pain, nausea, vomiting, diarrhea, constipation, reflux :+hematuria. No dysuria, increased urinary frequency, decreased urinary output Neuro: No headaches, weakness, paresthesias Skin: No rashes or lesions Physical Exam Vital Signs: Vital Signs: Last Vital Signs Temp 98.0 F 08/22/22 07:22 Pulse 86 08/22/22 07:22 Resp 18 08/22/22 07:22 BP 135/80 08/22/22 07:22 Pulse Ox 97 08/22/22 07:22 O2 Del Method 08/22/22 07:22 BMI result Body Mass Index 25.4 Constitutional - Awake and Alert, No apparent distress Eyes - PERRLA, EOMI Cardiovascular - S1S2, RRR, No edema Respiratory - Normal lung expansion, Normal respiratory effort, No respiratory distress, CTA bilaterally Gastrointestinal - NT / ND; +BS; No rebound or guarding - lazo in place draining rust colored urine Extremities - no calf tenderness bilaterally, no swelling Skin - Warm/Dry Neurological - Alert & oriented x3 Psychological - Appropriate affect Objective Data Active Medications Acetaminophen (Acetaminophen 325 Mg Tablet) 650 mg PO Q6H [facility] Last Admin: 08/22/22 04:31 Dose: Not Given Documented By: ARETHA Non-Admin Reason: Patient Refused Aspirin (Aspirin Enteric Coated 81 Mg Tablet.) 81 mg PO DAILY [facility] Last Admin: 08/22/22 08:17 Dose: 81 mg Documented By: YESI Docusate Sodium (Docusate Sodium 100 Mg Capsule) 100 mg PO BID PRN PRN Reason: Constipation Enoxaparin Sodium (Enoxaparin Sodium 30 Mg/0.3 Ml Syringe) 30 mg SUBCUT Q24H [facility] 234 BEDS AT [facility] Last Admin: 08/19/22 19:41 Dose: 30 mg Documented By: DARLYN Hydrocortisone (Hydrocortisone 2.5 % Rectal Cr 30 Gm Tube) 1 appl [place] QID PRN PRN Reason: hemorrhoids Last Admin: 08/17/22 09:14 Dose: 1 appl Documented By: TIM Hydromorphone HCl (Hydromorphone Hcl 0.5 Mg/0.5 Ml Syringe) 0.25 mg IVPUSH Q4H PRN; Protocol PRN Reason: Pain, Severe (Pain Scale 7-10) Last Admin: 08/20/22 05:51 Dose: 0.25 mg Documented By: DARLYN Hydroxyzine HCl (Hydroxyzine Hcl 25 Mg Tablet) 25 mg PO QID PRN PRN Reason: Anxiety Last Admin: 08/20/22 20:36 Dose: 25 mg Documented By: DARLYN Lidocaine (Lidocaine 4 % Patch Adh..Patch) 1 patch TRANSDERMA DAILY [facility]S AT [facility]; Protocol Last Admin: 08/22/22 08:18 Dose: 1 patch Documented By: YESI Lisinopril (Lisinopril 5 Mg Tablet) 15 mg PO DAILY [facility]; Protocol Last Admin: 08/22/22 08:17 Dose: 15 mg Documented By: YESI Non-Formulary Medication (Linaclotide [Linzess]) 145 mcg PO DAILY [facility] Nystatin (Nystatin Oral Susp 500,000 Unit/5 Ml Oral.Susp) 400,000 unit PO QID [facility]; Protocol Stop: 08/29/22 21:01 Last Admin: 08/22/22 08:16 Dose: 400,000 unit Documented By: YESI Omeprazole (Omeprazole 20 Mg Capsule.Dr) 20 mg PO BID PRN PRN Reason: Acid Reflux Ondansetron HCl (Ondansetron Hcl 4 Mg/2 Ml Vial) 4 mg IVPUSH Q6H PRN PRN Reason: Nausea Last Admin: 08/18/22 15:57 Dose: 4 mg Documented By: TIM Pharmacy Consult (Consult Rx Perform Med Rec) 1 each MISCELLANE ONCE PRN PRN Reason: Consult order Phenazopyridine HCl (Phenazopyridine Hcl 200 Mg Tablet) 200 mg PO Q8H PRN PRN Reason: pain with urination Last Admin: 08/18/22 09:23 Dose: 200 mg Documented By: TIM Polyethylene Glycol (Polyethylene Glycol 3350 17 Gm Powd.Pack) 17 gm PO DAILY [facility] 234 [facility]S AT [facility] Last Admin: 08/22/22 08:23 Dose: Not Given Documented By: YESI Non-Admin Reason: Patient Refused Pravastatin Sodium (Pravastatin Sodium 40 Mg Tablet) 40 mg PO DAILY [facility] 234 [facility]S AT [facility] Last Admin: 08/22/22 08:17 Dose: 40 mg Documented By: YESI Sodium Chloride (0.9 % Sodium Chloride Flush 3 Ml Syringe) 3 ml IVFLUSH QSHIFT [facility] 234 BEDS AT [facility] Last Admin: 08/22/22 08:18 Dose: 3 ml Documented By: YESI Vitamin D (Cholecalciferol (Vitamin D3) 25 Mcg Tablet) 50 mcg PO DAILY [facility] 234 B[facility]S AT [facility] Last Admin: 08/22/22 08:16 Dose: 50 mcg Documented By: YESI Labs CBC & Chem 7: 08/22/22 07:05 08/22/22 07:05 Labs: Laboratory Results - last 24 hr 08/22/22 08/22/22 07:05 07:05 MCV 86.4 MCH 27.6 MCHC 31.9 RDW 12.9 Plt Count 458 H MPV 9.5 Immature Gran % (Auto) 0.5 H Neut % (Auto) 67.1 Lymph % (Auto) 19.0 L [place] % (Auto) 12.7 H Eos % (Auto) 0.0 Baso % (Auto) 0.7 Lymph # (Auto) 1.9 [place] # (Auto) 1.3 H Eos # (Auto) 0.0 Baso # (Auto) 0.1 Abs Immat Gran (auto) 0.05 H Absolute Neuts (auto) 6.8 Absolute Nucleated RBC 0.030 H Nucleated RBC % (auto) 0.3 H Anion Gap 17 Estim Creat Clear Calc 60.2 Estimated GFR > 60 Random Glucose 82 Calcium 8.5 Assessment and Plan (1) UTI (urinary tract infection): Status: Acute (2) Sepsis: Status: Acute (3) Bladder mass: Status: Acute Plan 77-year-old female with a history of recurrent bladder cancer s/p BCG recently rediagnosed who presents to the ER for evaluation of difficulty urinating, dysuria and left lower quadrant and pelvic pain-as per the patient she has on and off dysuria symptoms from long time and had a cystoscopy- UTI/sepsis: #NADEEN- secondary to urinary retention r/t bladder cancer- resolved with lazo catheter placement - 1.86, BUN 34 --> 0.75 this morning -Strict I&O -Follow BMP -Avoid nephrotoxins. Low dose dilaudid for pain management given history adverse effects with alternative pain meds #Hematuria- improving, rust colored urine in lazo bag- likely 2/2 bladder cancer -Following multiple attempts at straight cath and lazo catheterization placed by urology -Continue lazo, follow H/H #Dysphagia/sore throat- due to oral thrush -Nystatin swich and swallow QID x 10 days #UTI/sepsis- resolved -CT abdomen admission-did not show any stone or obstruction -Urine and blood culture -staph coagulase negative contaminant, urine culture Enterococcus faecium /Klebsiella sensitive to Levaquin. -Completed 7 days levaquin, TURBT tomorrow # History of bladder cancer with urinary retention -Possible that recurrent pain is due to bladder cancer related.? -Pain control with lidocaine patch, pyridium. Low dose dilaudid as above -TURBT tomorrow per urology -Continue lazo # Severe persistent asthma: continue? DuoNebs change to prn, home meds. # Hypertension : Blood pressures so far stable, home medication. # hlp: continue medication. DVT prophylaxis with subQ Lovenox- dose adjusted d/t NADEEN ongoing inpatient hospitalization stay:? sepsis/UTI/history of bladder cancer will benefit from IV antibiotic, TURBT tomorrowm with close monitor H/H given hematuria. Time Spent With Patient Time: Total time managing care of this patient today 30 minutes. Quality Stroke Does the patient have a stroke diagnosis?: No VTE Prior VTE?: No VTE Risk Level:: Medical - moderate - high VTE Device Contraindication: N/A - Device Ordered VTE Drug Contraindication: N/A - Med Ordered
[2022-08-22 11:33] VITALS: BP 130/76; PULSE 82; RESP 18; TEMP 36.7; O2SAT 98
--- NOTE | 2022-08-22 11:56 | MHC.SLORD ---
Speech Language Pathology Order Status: PT NPO for TURBT procedure. [employer] will continue to follow up X1.
--- NOTE | 2022-08-22 13:19 | MHC.CM.PN ---
per rounds pt not ready for dc possible dc tomorrow dc plan remains home with vna
--- NOTE | 2022-08-22 13:20 | PM.UROPN ---
Subjective Subjective Date of Service: 08/23/22 Interval history: 77-year-old female with a history of superficial? bladder cancer s/p BCG 2019, presented to the ER for evaluation of difficulty urinating, dysuria and left lower quadrant and pelvic shad. She stated she had a fever and feels weak.? She denied any vomiting but she had been nauseous all day.? She denied any back or flank pain.?She stated she has been having difficulty emptying her bladder and is only dribbling small amounts of urine.? It underwood and stings when she does try to urinate. She reports pain is in her suprapubic area and left lower abdominal area.? Admitted for UTI/sepsis treated with Levaquin. Kelly placed for urinary retention. Physical Exam Vital Signs: Vital Signs: Last Vital Signs Temp 98.0 F 08/22/22 11:33 Pulse 82 08/22/22 11:33 Resp 18 08/22/22 11:33 BP 130/76 08/22/22 11:33 Pulse Ox 98 08/22/22 11:33 O2 Del Method 08/22/22 11:33 BMI result Body Mass Index 25.4 Urology Results Labs CBC & Chem 7: 08/22/22 07:05 08/22/22 07:05 Labs: Laboratory Results - last 24 hr 08/22/22 08/22/22 07:05 07:05 WBC 10.2 RBC 4.42 Hgb 12.2 Hct 38.2 MCV 86.4 MCH 27.6 MCHC 31.9 RDW 12.9 Plt Count 458 H MPV 9.5 Immature Gran % (Auto) 0.5 H Neut % (Auto) 67.1 Lymph % (Auto) 19.0 L [place] % (Auto) 12.7 H Eos % (Auto) 0.0 Baso % (Auto) 0.7 Lymph # (Auto) 1.9 [place] # (Auto) 1.3 H Eos # (Auto) 0.0 Baso # (Auto) 0.1 Abs Immat Gran (auto) 0.05 H Absolute Neuts (auto) 6.8 Absolute Nucleated RBC 0.030 H Nucleated RBC % (auto) 0.3 H Sodium 143 Potassium 3.6 Chloride 105 Carbon Dioxide 25 Anion Gap 17 BUN 19 H Creatinine 0.75 Estim Creat Clear Calc 60.2 Estimated GFR > 60 Random Glucose 82 Calcium 8.5 Progress Note: A&P Assessment and plan (1) H/O primary malignant neoplasm of urinary bladder: Status: Acute (2) Bladder mass: Status: Acute (3) UTI (urinary tract infection): Status: Acute (4) Hematuria: Status: Acute Plan Cystoscopy Transurethral resection bladder tumor on Monday NPO past [place] Time Spent With Patient Time: Total time managing care of this patient today ____ minutes. Progress Note: Quality Stroke Does the patient have a stroke diagnosis?: No
[2022-08-22 15:08] VITALS: BP 125/82; PULSE 105; RESP 20; TEMP 37.3; O2SAT 90
[2022-08-22 18:57] VITALS: BP 135/63; PULSE 99; RESP 18; TEMP 37.3; O2SAT 92
[2022-08-22 23:05] VITALS: BP 133/63; PULSE 93; RESP 18; TEMP 36.1; O2SAT 90
[2022-08-23] VITALS (20 sets, daily range): BP systolic 104–137; BP diastolic 58–113; PULSE 92–119; RESP 12–22; TEMP 36.4–38.1; O2SAT 90–100
--- NOTE | 2022-08-23 | ECG_ITS ---
Test Reason : tachycardia Blood Pressure : / mmHG Vent. Rate : 095 BPM Atrial Rate : 095 BPM P-R Int : 166 ms QRS Dur : 078 ms QT Int : 374 ms P-R-T Axes : 074 002 066 degrees QTc Int : 469 ms Normal sinus rhythm Normal ECG When compared with ECG of 01-MAR-2018 14:42, No significant change was found Referred By: Karma Jackson Electronically Signed By:KORTNEY MANSFIELD
[2022-08-23] MEDS: Lidocaine 4 % Patch ADH..PATCH 1 PATCH TRANSDERMA (08:34)
[2022-08-23] MEDS: 0.9 % Sodium Chloride Flush 3 ML SYRINGE IVFLUSH ×2 (08:35→20:08)
--- NOTE | 2022-08-23 08:39 | HO.PM.IMPN ---
Subjective Subjective Date of Service: 08/23/22 Interval History: seen in follow-up for: UTI/sepsis/bladder cancer interval history: Lazo in place. Urine now rust colored. No clots. Pt denies any abd pain, n/v, dysuria. Sore throat improved. Reports right knee pain. Review of Systems General: No fevers, malaise, unintentional weight loss HEENT: +sore throat, +dry mouth Cardiovascular: No chest pain, palpitations, or leg edema Respiratory: No shortness of breath, wheezing, cough GI: No abdominal pain, nausea, vomiting, diarrhea, constipation, reflux :No dysuria, increased, gross hematuria, urinary frequency, decreased urinary output Neuro: No headaches, weakness, paresthesias Skin: No rashes or lesions Physical Exam Vital Signs: Vital Signs: Last Vital Signs Temp 98.1 F 08/23/22 07:23 Pulse 101 H 08/23/22 07:23 Resp 12 08/23/22 07:23 BP 135/64 08/23/22 07:23 Pulse Ox 91 L 08/23/22 07:23 O2 Del Method 08/23/22 07:23 BMI result Body Mass Index 25.4 Constitutional - Awake and Alert, No apparent distress Eyes - PERRLA, EOMI Cardiovascular - S1S2, RRR, No edema Respiratory - Normal lung expansion, Normal respiratory effort, No respiratory distress, CTA bilaterally Gastrointestinal - Mild llq ttp, soft, ND; +BS; No rebound or guarding - lazo in place draining rust colored urine Extremities - no calf tenderness bilaterally, no swelling. Right knee- no erythema, warmth, bony abnormality, full ROM Skin - Warm/Dry Neurological - Alert & oriented x3 Psychological - Appropriate affect Objective Data Active Medications Acetaminophen (Acetaminophen 325 Mg Tablet) 650 mg PO Q6H [facility] Last Admin: 08/23/22 06:13 Dose: Not Given Documented By: IVONNE Non-Admin Reason: Patient Refused Aspirin (Aspirin Enteric Coated 81 Mg Tablet.) 81 mg PO DAILY [facility] Last Admin: 08/23/22 08:32 Dose: Not Given Documented By: YESI Non-Admin Reason: NPO Docusate Sodium (Docusate Sodium 100 Mg Capsule) 100 mg PO BID PRN PRN Reason: Constipation Enoxaparin Sodium (Enoxaparin Sodium 30 Mg/0.3 Ml Syringe) 30 mg SUBCUT Q24H [facility] Last Admin: 08/19/22 19:41 Dose: 30 mg Documented By: DARLYN Fentanyl (Fentanyl Citrate/Pf 100 Mcg/2 Ml Vial) 25 mcg IVPUSH Q5M PRN; Protocol PRN Reason: Pain, Moderate (Pain Scale 4-6 Hydrocortisone (Hydrocortisone 2.5 % Rectal Cr 30 Gm Tube) 1 appl [place] QID PRN PRN Reason: hemorrhoids Last Admin: 08/17/22 09:14 Dose: 1 appl Documented By: TIM Hydromorphone HCl (Hydromorphone Hcl 0.5 Mg/0.5 Ml Syringe) 0.25 mg IVPUSH Q4H PRN; Protocol PRN Reason: Pain, Severe (Pain Scale 7-10) Last Admin: 08/20/22 05:51 Dose: 0.25 mg Documented By: DARLYN Hydroxyzine HCl (Hydroxyzine Hcl 25 Mg Tablet) 25 mg PO QID PRN PRN Reason: Anxiety Last Admin: 08/20/22 20:36 Dose: 25 mg Documented By: DARLYN Levofloxacin (Levaquin) 500 mg in 100 mls @ 100 mls/hr IV PREOP ONE Stop: 08/23/22 13:29 Promethazine HCl 12.5 mg/ (Sodium Chloride) 50.5 mls @ 202 mls/hr IV ONCE PRN PRN Reason: Nausea and Vomiting Lidocaine (Lidocaine 4 % Patch Adh..Patch) 1 patch TRANSDERMA DAILY [facility]; Protocol Last Admin: 08/22/22 08:18 Dose: 1 patch Documented By: YESI Lisinopril (Lisinopril 5 Mg Tablet) 15 mg PO DAILY [facility]; Protocol Last Admin: 08/23/22 08:32 Dose: Not Given Documented By: YESI Non-Admin Reason: NPO Non-Formulary Medication (Linaclotide [Linzess]) 145 mcg PO DAILY [facility] Nystatin (Nystatin Oral Susp 500,000 Unit/5 Ml Oral.Susp) 400,000 unit PO QID [facility]; Protocol Stop: 08/29/22 21:01 Last Admin: 08/23/22 08:32 Dose: Not Given Documented By: YESI Non-Admin Reason: NPO Omeprazole (Omeprazole 20 Mg Capsule.Dr) 20 mg PO BID PRN PRN Reason: Acid Reflux Ondansetron HCl (Ondansetron Hcl 4 Mg/2 Ml Vial) 4 mg IVPUSH Q6H PRN PRN Reason: Nausea Last Admin: 08/18/22 15:57 Dose: 4 mg Documented By: TIM Ondansetron HCl (Ondansetron Hcl 4 Mg/2 Ml Vial) 4 mg IVPUSH ONCE PRN PRN Reason: Nausea and Vomiting Oxycodone HCl (Oxycodone Hcl Immed Release 5 Mg Tablet) 5 mg PO ONCE PRN PRN Reason: Pain, Severe (Pain Scale 7-10) Pharmacy Consult (Consult Rx Perform Med Rec) 1 each MISCELLANE ONCE PRN PRN Reason: Consult order Phenazopyridine HCl (Phenazopyridine Hcl 200 Mg Tablet) 200 mg PO Q8H PRN PRN Reason: pain with urination Last Admin: 08/18/22 09:23 Dose: 200 mg Documented By: TIM Polyethylene Glycol (Polyethylene Glycol 3350 17 Gm Powd.Pack) 17 gm PO DAILY [facility] Last Admin: 08/23/22 08:32 Dose: Not Given Documented By: YESI Non-Admin Reason: NPO Pravastatin Sodium (Pravastatin Sodium 40 Mg Tablet) 40 mg PO DAILY [facility] Last Admin: 08/23/22 08:32 Dose: Not Given Documented By: YESI Non-Admin Reason: NPO Sodium Chloride (0.9 % Sodium Chloride Flush 3 Ml Syringe) 3 ml IVFLUSH QSHIFT [facility] Last Admin: 08/22/22 21:21 Dose: 3 ml Documented By: IVONNE Vitamin D (Cholecalciferol (Vitamin D3) 25 Mcg Tablet) 50 mcg PO DAILY [facility] Last Admin: 08/23/22 08:32 Dose: Not Given Documented By: YESI Non-Admin Reason: NPO Labs CBC & Chem 7: 08/22/22 07:05 08/22/22 07:05 Assessment and Plan (1) UTI (urinary tract infection): Status: Acute (2) Sepsis: Status: Acute (3) Bladder mass: Status: Acute Plan 77-year-old female with a history of recurrent bladder cancer s/p BCG recently rediagnosed who presents to the ER for evaluation of difficulty urinating, dysuria and left lower quadrant and pelvic pain-as per the patient she has on and off dysuria symptoms from long time and had a cystoscopy- UTI/sepsis: #NADEEN- secondary to urinary retention r/t bladder cancer- resolved with lazo catheter placement - 1.86, BUN 34 --> 0.75 this morning -Strict I&O -Follow BMP -Avoid nephrotoxins. Low dose dilaudid for pain management given history adverse effects with alternative pain meds #Hematuria- improving, rust colored urine in lazo bag- likely 2/2 bladder cancer -Following multiple attempts at straight cath and lazo catheterization placed by urology -Continue lazo #Dysphagia/sore throat- due to oral thrush -Nystatin swich and swallow QID x 10 days (D4) #Intermittent tachcyardia -Has been sinus rhythm on telemetry -No other SIRS criteria, low suspicion for infection -EKG ordered #Mild LLQ pain -On exam without guarding or rebound -Afebrile. No diarrhea, constipation, N/V -Monitor for worsening symptoms- hold on imaging at this time #UTI/sepsis- resolved -CT abdomen admission-did not show any stone or obstruction -Urine and blood culture -staph coagulase negative contaminant, urine culture Enterococcus faecium /Klebsiella sensitive to Levaquin. -Completed 7 days levaquin, TURBT today # History of bladder cancer with urinary retention -Possible that recurrent pain is due to bladder cancer related.? -Pain control with lidocaine patch, pyridium. Low dose dilaudid as above -TURBT roday, has been npo since midnight -Continue lazo # Severe persistent asthma: continue? DuoNebs change to prn, home meds. # Hypertension : Blood pressures so far stable, home medication. # hlp: continue medication. #Right knee pain -no injury -lidocaine cream Recommend PT eval/treat following TURBT once cleared by urology DVT prophylaxis Lovenox on hold d/t hematuria, consider resuming post-operatively. Compression therapy ongoing inpatient hospitalization stay:? TURBT today and popstoperative management by urology Time Spent With Patient Time: Total time managing care of this patient today ____ minutes. Quality Stroke Does the patient have a stroke diagnosis?: No VTE Prior VTE?: No VTE Risk Level:: Medical - moderate - high VTE Device Contraindication: N/A - Device Ordered VTE Drug Contraindication: N/A - Med Ordered
--- NOTE | 2022-08-23 14:36 | MHC.SLORD ---
Speech Language Pathology Order Status: Pt NPO for Cystoscopy Transurethral resection bladder tumor today. [employer] will continue to attempt to f/u on toleration of recommended diet: Regular/Thin.
--- NOTE | 2022-08-23 16:00 | HO.ANESPROP2 ---
HPI - Anesthesia Eval Consult details Narrative: bladder tu PMFSH Active Problems Active Problems: All Active Problems (Updated 08/13/22 @ 16:36 by Hoa Thompson MD) UTI (urinary tract infection) (Acute) Sepsis (Acute) Bladder mass (Acute) Hematuria (Acute) H/O primary malignant neoplasm of urinary bladder (Acute) Osteoarthritis of shoulders, bilateral (Acute) Hemorrhoids with complication (Acute) Vaginal pain (Acute) Back pain (Acute) Recurrent cough (Acute) Dysuria (Acute) Primary osteoarthritis, left shoulder (Acute) Small intestinal bacterial overgrowth (Acute) Bronchitis (Acute) Abdominal cramping (Acute) Hemorrhoids with complication (Acute) Right-sided ischial pain (Acute) Environmental allergies (Acute) Cough (Acute) Gastroesophageal reflux disease (Acute) Moderate persistent allergic asthma (Acute) Trochanteric bursitis, right hip (Acute) Malignant neoplasm of urinary bladder (Acute) UTI (urinary tract infection) (Acute) Nausea and vomiting (Acute) Chronic idiopathic constipation (Acute) Low back pain due to bilateral sciatica (Acute) Tendonitis of left rotator cuff (Acute) Trochanteric bursitis of left hip (Acute) Past Medical History Medical History (Updated 08/23/22 @ 16:10 by Severo Steven MD) Asthma Bladder mass Emphysema lung Hemorrhoids with complication Hemorrhoids with complication Hyperlipidemia Hypertension Malignant neoplasm of urinary bladder UTI (urinary tract infection) Functional capacity: independent ambulation Family History Family History Father No problems noted. Mother Diabetes Brother Lung cancer Daughter Diabetes Family history of problems with anesthesia: No Surgical History Surgical History History of esophagogastroduodenoscopy (EGD) History of hysterectomy with bilateral oophorectomy Hx of colonoscopy (01/17/19) History of Problems with Anesthesia: No Social History Social History Household Members: Spouse Housing: Apartment Do you presently have visiting nurse or other home services: Yes ([employer]) Alcohol intake: never Patient Tobacco Use Status: Former Tobacco user Cigarettes Per Day: 3 Years Smoked: 55 service: No Current occupational status: retired Current occupation: rt handed Meds Allergies Allergy/AdvReac Type Severity Reaction Status Date / Time aspirin [ASA] Allergy Intermediate RASH Verified 08/11/22 11:50 ibuprofen [Ibuprofen] Allergy Intermediate RASH Verified 08/11/22 11:50 morphine [MORPHINE] Allergy Intermediate ITCHING Verified 08/11/22 11:50 naproxen [From NAPROSYN] Allergy Intermediate RASH,N/V Verified 08/11/22 11:50 oxycodone [OXYCODONE] Allergy Intermediate NAUSEA & Verified 08/11/22 11:50 VOMITING, RASH Active Medications: Current Medications Acetaminophen (Acetaminophen 325 Mg Tablet) 650 mg PO Q6H [facility] Last Admin: 08/23/22 11:19 Dose: Not Given Aspirin (Aspirin Enteric Coated 81 Mg Tablet.Dr) 81 mg PO DAILY [facility] Last Admin: 08/23/22 08:32 Dose: Not Given Docusate Sodium (Docusate Sodium 100 Mg Capsule) 100 mg PO BID PRN PRN Reason: Constipation Enoxaparin Sodium (Enoxaparin Sodium 30 Mg/0.3 Ml Syringe) 30 mg SUBCUT Q24H [facility] Last Admin: 08/19/22 19:41 Dose: 30 mg Fentanyl (Fentanyl Citrate/Pf 100 Mcg/2 Ml Vial) 25 mcg IVPUSH Q5M PRN; Protocol PRN Reason: Pain, Moderate (Pain Scale 4-6 Hydrocortisone (Hydrocortisone 2.5 % Rectal Cr 30 Gm Tube) 1 appl MT QID PRN PRN Reason: hemorrhoids Last Admin: 08/17/22 09:14 Dose: 1 appl Hydromorphone HCl (Hydromorphone Hcl 0.5 Mg/0.5 Ml Syringe) 0.25 mg IVPUSH Q4H PRN; Protocol PRN Reason: Pain, Severe (Pain Scale 7-10) Last Admin: 08/20/22 05:51 Dose: 0.25 mg Hydroxyzine HCl (Hydroxyzine Hcl 25 Mg Tablet) 25 mg PO QID PRN PRN Reason: Anxiety Last Admin: 08/20/22 20:36 Dose: 25 mg Promethazine HCl 12.5 mg/ (Sodium Chloride) 50.5 mls @ 202 mls/hr IV ONCE PRN PRN Reason: Nausea and Vomiting Lidocaine (Lidocaine 4 % Patch Adh..Patch) 1 patch TRANSDERMA DAILY [facility]; Protocol Last Admin: 08/23/22 08:34 Dose: 1 patch Lidocaine HCl (Lidocaine 4 % Cream Kit) 1 appl TOPICAL QID PRN; Protocol PRN Reason: knee pain Lisinopril (Lisinopril 5 Mg Tablet) 15 mg PO DAILY [facility]; Protocol Last Admin: 08/23/22 08:32 Dose: Not Given Nystatin (Nystatin Oral Susp 500,000 Unit/5 Ml Oral.Susp) 400,000 unit PO QID [facility]; Protocol Stop: 08/29/22 21:01 Last Admin: 08/23/22 13:42 Dose: Not Given Omeprazole (Omeprazole 20 Mg Capsule.Dr) 20 mg PO BID PRN PRN Reason: Acid Reflux Ondansetron HCl (Ondansetron Hcl 4 Mg/2 Ml Vial) 4 mg IVPUSH Q6H PRN PRN Reason: Nausea Last Admin: 08/18/22 15:57 Dose: 4 mg Ondansetron HCl (Ondansetron Hcl 4 Mg/2 Ml Vial) 4 mg IVPUSH ONCE PRN PRN Reason: Nausea and Vomiting Oxycodone HCl (Oxycodone Hcl Immed Release 5 Mg Tablet) 5 mg PO ONCE PRN PRN Reason: Pain, Severe (Pain Scale 7-10) Pharmacy Consult (Consult Rx Perform Med Rec) 1 each MISCELLANE ONCE PRN PRN Reason: Consult order Phenazopyridine HCl (Phenazopyridine Hcl 200 Mg Tablet) 200 mg PO Q8H PRN PRN Reason: pain with urination Last Admin: 08/18/22 09:23 Dose: 200 mg Polyethylene Glycol (Polyethylene Glycol 3350 17 Gm Powd.Pack) 17 gm PO DAILY [facility] Last Admin: 08/23/22 08:32 Dose: Not Given Pravastatin Sodium (Pravastatin Sodium 40 Mg Tablet) 40 mg PO DAILY [facility] Last Admin: 08/23/22 08:32 Dose: Not Given Sodium Chloride (0.9 % Sodium Chloride Flush 3 Ml Syringe) 3 ml IVFLUSH QSHIFT [facility] Last Admin: 08/23/22 08:35 Dose: 3 ml Vitamin D (Cholecalciferol (Vitamin D3) 25 Mcg Tablet) 50 mcg PO DAILY [facility] Last Admin: 08/23/22 08:32 Dose: Not Given Home Medications Medication Instructions Recorded Confirmed Last Taken Type albuterol sulfate 90 mcg/actuation 2 puff inhalation Q4-6H PRN 06/24/20 08/13/22 Unknown History aerosol inhaler Shortness Of Breath Or Wheezing hydroxyzine HCl 25 mg tablet 25 mg PO QID PRN Anxiety 06/24/20 08/13/22 Unknown History aspirin 81 mg tablet,delayed 81 mg PO DAILY 12/21/20 08/13/22 Unknown History release cholecalciferol (vitamin D3) 50 50 mcg PO DAILY 06/04/21 08/13/22 Unknown History mcg (2,000 unit) capsule ipratropium 20 mcg-albuterol 100 1 puff PO QID PRN Shortness Of 06/04/21 08/13/22 Unknown History mcg/actuation mist for inhalation Breath Or Wheezing (Combivent Respimat) pravastatin 40 mg tablet 40 mg PO DAILY 06/04/21 08/13/22 Unknown History lisinopril 10 mg tablet 15 mg PO DAILY 03/09/22 08/13/22 08/12/22 History omeprazole 40 mg capsule,delayed 20 mg PO BID PRN Acid Reflux 03/09/22 08/13/22 Unknown History release linaclotide 145 mcg capsule 145 mcg PO DAILY 05/31/22 08/13/22 Unknown History (Linzess) estradiol 0.01% (0.1 mg/gram) 1 appl vaginal MOWEFR@0900 07/25/22 08/13/22 Unknown History vaginal cream acetaminophen 325 mg tablet 650 mg PO QID PRN Headache 08/13/22 08/13/22 Unknown History (Tylenol) albuterol sulfate 2.5 mg/3 mL 3 ml inhalation Q6H PRN Shortness 08/13/22 08/13/22 Unknown History (0.083 %) solution for nebulization Of Breath Or Wheezing hydrocortisone 2.5 % topical cream 1 appl MT BID-QID PRN hemorrhoids 08/13/22 08/13/22 Unknown History with perineal applicator (Proctosol HC) Exam Exam Date and Time: August 23, 2022 1600 Height,Weight and Vital Signs: Height 5 ft 4 in Weight 67.4 kg Last Vital Signs Temp 98.7 F 08/23/22 15:00 Pulse 96 08/23/22 15:00 Resp 18 08/23/22 15:00 BP 137/63 08/23/22 15:00 Pulse Ox 90 L 08/23/22 15:00 O2 Del Method 08/23/22 15:00 Pertinent Lab Results Pertinent Lab Results: Laboratory Tests 08/13/22 08/13/22 08/13/22 11:45 11:45 11:45 WBC 14.9 H RBC 4.81 Hgb 13.4 Hct 42.2 MCV 87.7 MCH 27.9 MCHC 31.8 RDW 13.0 Plt Count 402 H MPV 9.8 Immature Gran % (Auto) 0.3 Neut % (Auto) 87.1 H Lymph % (Auto) 5.4 L [place] % (Auto) 7.1 Eos % (Auto) 0.0 Baso % (Auto) 0.1 Lymph # (Auto) 0.8 L [place] # (Auto) 1.1 Eos # (Auto) 0.0 Baso # (Auto) 0.0 Abs Immat Gran (auto) 0.04 H Absolute Neuts (auto) 13.0 H Absolute Nucleated RBC 0.000 Nucleated RBC % (auto) 0.0 Sodium 133 L Potassium 4.2 Chloride 100 Carbon Dioxide 25 Anion Gap 12 BUN 24 H Creatinine 0.83 Estim Creat Clear Calc 54.4 Estimated GFR > 60 Random Glucose 111 Lactic Acid 1.1 Calcium 9.4 Magnesium 1.8 Total Bilirubin 1.0 Direct Bilirubin 0.3 AST 23 ALT 15 Alkaline Phosphatase 113 Total Protein 6.8 Albumin 3.9 Urine Color Urine Appearance Urine pH Ur Specific [place] Urine Protein Urine Glucose (UA) Urine Ketones Urine Blood Urine Nitrite Ur Leukocyte Esterase Urine RBC Urine WBC Ur Squamous Epith Cells Urine Bacteria Hyaline Casts Random Vancomycin COVID-19 ([facility]) COVID-19 Clin Com 08/13/22 08/13/22 08/14/22 12:06 14:23 06:07 WBC 11.9 H RBC 4.21 Hgb 11.9 L Hct 36.6 L MCV 86.9 MCH 28.3 MCHC 32.5 RDW 13.0 Plt Count 315 MPV 9.7 Immature Gran % (Auto) Neut % (Auto) Lymph % (Auto) [place] % (Auto) Eos % (Auto) Baso % (Auto) Lymph # (Auto) [place] # (Auto) Eos # (Auto) Baso # (Auto) Abs Immat Gran (auto) Absolute Neuts (auto) Absolute Nucleated RBC 0.000 Nucleated RBC % (auto) 0.0 Sodium Potassium Chloride Carbon Dioxide Anion Gap BUN Creatinine Estim Creat Clear Calc Estimated GFR Random Glucose Lactic Acid Calcium Magnesium Total Bilirubin Direct Bilirubin AST ALT Alkaline Phosphatase Total Protein Albumin Urine Color Dark Yellow Urine Appearance Cloudy Urine pH 5.5 Ur Specific [place] 1.015 Urine Protein 300 (3+) H Urine Glucose (UA) Negative Urine Ketones Negative Urine Blood Large (3+) H Urine Nitrite Positive H Ur Leukocyte Esterase Large (3+) H Urine RBC >20 H Urine WBC >50 H Ur Squamous Epith Cells 0-2 Urine Bacteria 4+ Hyaline Casts 3-5 Random Vancomycin COVID-19 ([facility]) Negative COVID-19 Clin Com See Note 08/14/22 08/15/22 08/16/22 06:07 06:59 06:39 WBC RBC Hgb Hct MCV MCH MCHC RDW Plt Count MPV Immature Gran % (Auto) Neut % (Auto) Lymph % (Auto) [place] % (Auto) Eos % (Auto) Baso % (Auto) Lymph # (Auto) [place] # (Auto) Eos # (Auto) Baso # (Auto) Abs Immat Gran (auto) Absolute Neuts (auto) Absolute Nucleated RBC Nucleated RBC % (auto) Sodium 140 Potassium 3.7 Chloride 107 Carbon Dioxide 21 L Anion Gap 16 BUN 18 H Creatinine 0.78 0.83 1.09 Estim Creat Clear Calc 57.9 54.4 41.4 Estimated GFR > 60 > 60 49 Random Glucose 100 Lactic Acid Calcium 8.1 L D Magnesium Total Bilirubin Direct Bilirubin AST ALT Alkaline Phosphatase Total Protein Albumin Urine Color Urine Appearance Urine pH Ur Specific [place] Urine Protein Urine Glucose (UA) Urine Ketones Urine Blood Urine Nitrite Ur Leukocyte Esterase Urine RBC Urine WBC Ur Squamous Epith Cells Urine Bacteria Hyaline Casts Random Vancomycin COVID-19 ([facility]) COVID-19 Clin Com 08/16/22 08/17/22 08/18/22 13:52 05:47 07:52 WBC RBC Hgb Hct MCV MCH MCHC RDW Plt Count MPV Immature Gran % (Auto) Neut % (Auto) Lymph % (Auto) [place] % (Auto) Eos % (Auto) Baso % (Auto) Lymph # (Auto) [place] # (Auto) Eos # (Auto) Baso # (Auto) Abs Immat Gran (auto) Absolute Neuts (auto) Absolute Nucleated RBC Nucleated RBC % (auto) Sodium Potassium Chloride Carbon Dioxide Anion Gap BUN Creatinine 1.40 1.71 H Estim Creat Clear Calc 32.2 26.4 Estimated GFR 37 29 Random Glucose Lactic Acid Calcium Magnesium Total Bilirubin Direct Bilirubin AST ALT Alkaline Phosphatase Total Protein Albumin Urine Color Urine Appearance Urine pH Ur Specific [place] Urine Protein Urine Glucose (UA) Urine Ketones Urine Blood Urine Nitrite Ur Leukocyte Esterase Urine RBC Urine WBC Ur Squamous Epith Cells Urine Bacteria Hyaline Casts Random Vancomycin 14.4 L COVID-19 ([facility]) COVID-19 Clin Com 08/18/22 08/19/22 08/20/22 07:52 06:17 06:53 WBC 10.7 11.6 H RBC 4.11 L 4.26 Hgb 11.5 L 11.8 L Hct 36.4 L 37.7 MCV 88.6 88.5 MCH 28.0 27.7 MCHC 31.6 31.3 RDW 13.0 12.8 Plt Count 359 381 MPV 9.8 9.6 Immature Gran % (Auto) 0.3 0.6 H Neut % (Auto) 75.3 H 77.7 H Lymph % (Auto) 11.3 L 11.2 L [place] % (Auto) 12.8 H 10.3 Eos % (Auto) 0.0 0.0 Baso % (Auto) 0.3 0.2 Lymph # (Auto) 1.2 1.3 [place] # (Auto) 1.4 H 1.2 Eos # (Auto) 0.0 0.0 Baso # (Auto) 0.0 0.0 Abs Immat Gran (auto) 0.03 0.07 H Absolute Neuts (auto) 8.1 9.0 H Absolute Nucleated RBC 0.000 0.000 Nucleated RBC % (auto) 0.0 0.0 Sodium 141 Potassium 4.4 Chloride 106 Carbon Dioxide 24 Anion Gap 15 BUN 34 H D Creatinine 1.86 H Estim Creat Clear Calc 24.2 Estimated GFR 26 Random Glucose 79 Lactic Acid Calcium 8.7 D Magnesium Total Bilirubin Direct Bilirubin AST ALT Alkaline Phosphatase Total Protein Albumin Urine Color Urine Appearance Urine pH Ur Specific [place] Urine Protein Urine Glucose (UA) Urine Ketones Urine Blood Urine Nitrite Ur Leukocyte Esterase Urine RBC Urine WBC Ur Squamous Epith Cells Urine Bacteria Hyaline Casts Random Vancomycin COVID-19 ([facility]) COVID-19 Clin Com 08/20/22 08/21/22 08/21/22 06:53 08:22 08:22 WBC 10.3 RBC 4.35 Hgb 12.0 Hct 37.8 MCV 86.9 MCH 27.6 MCHC 31.7 RDW 12.8 Plt Count 423 H MPV 9.4 Immature Gran % (Auto) 0.4 Neut % (Auto) 69.0 Lymph % (Auto) 18.1 L [place] % (Auto) 12.4 H Eos % (Auto) 0.0 Baso % (Auto) 0.1 Lymph # (Auto) 1.9 [place] # (Auto) 1.3 H Eos # (Auto) 0.0 Baso # (Auto) 0.0 Abs Immat Gran (auto) 0.04 H Absolute Neuts (auto) 7.1 Absolute Nucleated RBC 0.000 Nucleated RBC % (auto) 0.0 Sodium 142 143 Potassium 4.3 3.9 Chloride 108 107 Carbon Dioxide 19 L 22 Anion Gap 19 18 BUN 28 H 26 H Creatinine 1.10 0.85 Estim Creat Clear Calc 41.1 53.1 Estimated GFR 48 > 60 Random Glucose 60 68 Lactic Acid Calcium 8.6 8.8 Magnesium Total Bilirubin Direct Bilirubin AST ALT Alkaline Phosphatase Total Protein Albumin Urine Color Urine Appearance Urine pH Ur Specific [place] Urine Protein Urine Glucose (UA) Urine Ketones Urine Blood Urine Nitrite Ur Leukocyte Esterase Urine RBC Urine WBC Ur Squamous Epith Cells Urine Bacteria Hyaline Casts Random Vancomycin COVID-19 ([facility]) COVID-19 Clin Com 08/22/22 08/22/22 07:05 07:05 WBC 10.2 RBC 4.42 Hgb 12.2 Hct 38.2 MCV 86.4 MCH 27.6 MCHC 31.9 RDW 12.9 Plt Count 458 H MPV 9.5 Immature Gran % (Auto) 0.5 H Neut % (Auto) 67.1 Lymph % (Auto) 19.0 L [place] % (Auto) 12.7 H Eos % (Auto) 0.0 Baso % (Auto) 0.7 Lymph # (Auto) 1.9 [place] # (Auto) 1.3 H Eos # (Auto) 0.0 Baso # (Auto) 0.1 Abs Immat Gran (auto) 0.05 H Absolute Neuts (auto) 6.8 Absolute Nucleated RBC 0.030 H Nucleated RBC % (auto) 0.3 H Sodium 143 Potassium 3.6 Chloride 105 Carbon Dioxide 25 Anion Gap 17 BUN 19 H Creatinine 0.75 Estim Creat Clear Calc 60.2 Estimated GFR > 60 Random Glucose 82 Lactic Acid Calcium 8.5 Magnesium Total Bilirubin Direct Bilirubin AST ALT Alkaline Phosphatase Total Protein Albumin Urine Color Urine Appearance Urine pH Ur Specific [place] Urine Protein Urine Glucose (UA) Urine Ketones Urine Blood Urine Nitrite Ur Leukocyte Esterase Urine RBC Urine WBC Ur Squamous Epith Cells Urine Bacteria Hyaline Casts Random Vancomycin COVID-19 ([facility]) COVID-19 Clin Com Airway Mallampati Class: II TM Dist: >3cm Neck ROM: Full Loose/Missing/Broken Teeth: No Heart: RRR Lungs: CTA Assessment and Plan Assessment Anesthesia Assessment: Anesthesia Plan Discussed and Chart Reviewed Final Anesthetic Review Family History of Problems with Anesthesia: No History of Problems with Anesthesia: No NPO: Yes ASA Class: III Final Preanesthetic Review: No Changes in Pt Med Stat, Meds/Allgs Chart Reviewed and Anes Risks/Benef Reviewed Patient Risk: Intermediate Procedure Risk: Low Anesthetic Plan Anesthetic Plan: GA Disposition: Standard PACU
--- NOTE | 2022-08-23 16:26 | MHC.SHP ---
Pre-Procedural Eval Section A Date of Service: 08/23/22 The patient is an INPATIENT: Yes The History & Physical has been completed within 30 days and I have reviewed it.: Yes Section B Chief Complaint: Sepsis/ UTI Allergies: Allergies Allergy/AdvReac Type Severity Reaction Status Date / Time aspirin [ASA] Allergy Intermediate RASH Verified 08/11/22 11:50 ibuprofen [Ibuprofen] Allergy Intermediate RASH Verified 08/11/22 11:50 morphine [MORPHINE] Allergy Intermediate ITCHING Verified 08/11/22 11:50 naproxen [From NAPROSYN] Allergy Intermediate RASH,N/V Verified 08/11/22 11:50 oxycodone [OXYCODONE] Allergy Intermediate NAUSEA & Verified 08/11/22 11:50 VOMITING, RASH Plan Diagnosis/Plan: Unchanged I have reviewed the history and physical and performed a pertinent physical examination on my patient. No changes have occurred unless specified. Bladder tumor. Cysto/TURBT Time Spent With Patient Time: Total time managing care of this patient today ____ minutes.
--- NOTE | 2022-08-23 17:48 | W.PM.OPN ---
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 Urine c/s was positive. She was treated with IV antibiotics for Klebsiella UTI. She is now stable for OR procedure. Details of procedure: The patient was brought into the operating room placed on the OR table in supine position. General anesthesia was administered. The patient was repositioned into lithotomy position, prepped and draped in the usual sterile fashion. Time-out was done per protocol. Antibiotics confirmed. Pelvic EUA noted induration and thickening suburethral with extension posteriorly along vaginal wall. The urethral meatus was stenotic The urethral meatus was dilated 12 fr to 26 fr. The 24 [place] resectoscope was passed transurethrally into the bladder. Visualization of the bladder noted nearly entire bladder with tumor. It was evident complete debulking of the tumor transurethrally would not be accomplished, goal was to get tissue for pathology evaluation. The loop resectoscope was used to resect some the bladder tumor, to send as specimen, deep resection was not done and muscle was not visualized during the resection. The roller ball attachment was used to fulgurate the majority of the lesions. A [address] catheter 30 cc balloon was passed without difficulty. 15 mL fluid placed into the balloon. CBI started in the OR. The patient was brought out of anesthesia and taken to recovery in stable condition. Complications: None Drains: [address]
[2022-08-23] MEDS: HYDROmorphone HCl 0.5 MG/0.5 ML SYRINGE 0.25 MG IVPUSH ×2 (18:05→18:16)
[2022-08-23] MEDS: Nystatin Oral Susp 500,000 UNIT/5 ML ORAL.SUSP 400000 UNIT PO (20:07)
[2022-08-24 04:00] VITALS: BP 125/61; PULSE 94; RESP 18; TEMP 36.3; O2SAT 93
[2022-08-24 07:50] VITALS: BP 120/61; PULSE 101; RESP 20; TEMP 36.7; O2SAT 91
[2022-08-24] MEDS: Pravastatin Sodium 40 MG TABLET PO (09:08)
[2022-08-24] MEDS: Nystatin Oral Susp 500,000 UNIT/5 ML ORAL.SUSP 400000 UNIT PO ×4 (09:08→20:56)
[2022-08-24] MEDS: lisinopriL 5 MG TABLET 15 MG PO (09:08)
[2022-08-24] MEDS: 0.9 % Sodium Chloride Flush 3 ML SYRINGE IVFLUSH ×3 (09:09→20:57)
[2022-08-24] MEDS: Lidocaine 4 % Patch ADH..PATCH 1 PATCH TRANSDERMA (09:09)
--- NOTE | 2022-08-24 11:32 | P.PNUR_ITS ---
Subjective Subjective Date of Service: 08/24/22 Patient reports: feels better Interval history: 77-year-old female with a history of superficial? bladder cancer s/p BCG 2019, presented to the ER for evaluation of difficulty urinating, dysuria and left lower quadrant and pelvic shad. She stated she had a fever and feels weak.? She denied any vomiting but she had been nauseous all day.? She denied any back or flank pain.?She stated she has been having difficulty emptying her bladder and is only dribbling small amounts of urine.? It underwood and stings when she does try to urinate. She reports pain is in her suprapubic area and left lower abdominal area.? Admitted for UTI/sepsis treated with Levaquin. Lazo placed for urinary retention. s/p cysto transurethral resection/fulguration bladder tumor. Findings--bladder significant tumor burden and exam under anesthesia is suspicious for local invasion into vagina. Discussed findings with patient and will refer to oncology for outpatient consultation Physical Exam Vital Signs: Vital Signs: Last Vital Signs Temp 98.0 F 08/24/22 07:50 Pulse 101 H 08/24/22 07:50 Resp 20 08/24/22 07:50 BP 120/61 08/24/22 07:50 Pulse Ox 91 L 08/24/22 07:50 O2 Del Method 08/24/22 07:50 O2 Flow Rate 2 08/23/22 19:07 BMI result Body Mass Index 25.4 Const: General: cooperative and no acute distress Orientation/cons ciousness: patient oriented x3 HEENT: Head: Yes normal to inspection, Yes normocephalic and Yes atraumatic Eyes: Conjunctivae: conjunctivae normal Neck: Neck: Yes normal visual inspection and Yes trachea midline Chest: Chest palpation & inspection: normal inspection of the chest Resp: Effort & Inspection: normal respiratory effort Cardio: Rate: regular rate GI: Inspection: Yes normal to inspection Palpation (GI): Soft to palpation : Other: lazo - urine clear yellow Skin: General skin exam: no rashes or lesions noted Neuro: General: patient oriented x3 Psych: Appearance: grossly normal Urology Results Labs CBC & Chem 7: 08/22/22 07:05 08/22/22 07:05 Progress Note: A&P Assessment and plan (1) H/O primary malignant neoplasm of urinary bladder: Status: Acute (2) Bladder mass: Status: Acute (3) UTI (urinary tract infection): Status: Acute (4) Hematuria: Status: Acute Plan dc lazo outpatient referral to oncology Time Spent With Patient Time: Total time managing care of this patient today ____ minutes. Progress Note: Quality Stroke Does the patient have a stroke diagnosis?: No
[2022-08-24 11:40] VITALS: BP 102/73; PULSE 108; RESP 14; TEMP 36.6; O2SAT 90
--- NOTE | 2022-08-24 11:50 | P.PNIM_ITS ---
Subjective Subjective Date of Service: 08/24/22 Interval History: cc: abd interval history:feels better, wants to go home, but now back on 2L Cardiovascular Cardiovascular: Reports no additional cardiovascular complaints Respiratory Respiratory: Reports no additional respiratory complaints Physical Exam Vital Signs: Vital Signs: Last Vital Signs Temp 97.8 F 08/24/22 11:40 Pulse 108 H 08/24/22 11:40 Resp 14 08/24/22 11:40 BP 102/73 08/24/22 11:40 Pulse Ox 90 L 08/24/22 11:40 O2 Del Method 08/24/22 11:40 O2 Flow Rate 2 08/24/22 11:40 BMI result Body Mass Index 25.4 General: AO X 3, no acute distress Resp: CTA bilateral, no accessory muscles used CVS: S1,S2,RRR GI: soft, non tender, non distended Neuro: motor grossly intact, alert Psych: appropriate affect, appropriate insight cbi clear Objective Data Active Medications Acetaminophen (Acetaminophen 325 Mg Tablet) 650 mg PO Q6H [facility] Last Admin: 08/24/22 11:39 Dose: Not Given Documented By: ENOCH Non-Admin Reason: Patient Refused Albuterol Sulfate (Albuterol Sulfate (0.083%) 2.5 Mg/3 Ml Vial.Adelso) 2.5 mg INHALE ONCE PRN PRN Reason: Wheezing Aspirin (Aspirin Enteric Coated 81 Mg Tablet.) 81 mg PO DAILY [facility] Last Admin: 08/24/22 09:12 Dose: Not Given Documented By: ENOCH Non-Admin Reason: Patient Refused Docusate Sodium (Docusate Sodium 100 Mg Capsule) 100 mg PO BID PRN PRN Reason: Constipation Fentanyl (Fentanyl Citrate/Pf 100 Mcg/2 Ml Vial) 25 mcg IVPUSH Q5M PRN; Protocol PRN Reason: Pain, Moderate (Pain Scale 4-6 Fentanyl (Fentanyl Citrate/Pf 100 Mcg/2 Ml Vial) 25 mcg IVPUSH Q5M PRN; Protocol PRN Reason: Pain, Moderate (Pain Scale 4-6 Hydrocortisone (Hydrocortisone 2.5 % Rectal Cr 30 Gm Tube) 1 appl MO QID PRN PRN Reason: hemorrhoids Last Admin: 08/17/22 09:14 Dose: 1 appl Documented By: TIM Hydromorphone HCl (Hydromorphone Hcl 0.5 Mg/0.5 Ml Syringe) 0.25 mg IVPUSH Q4H PRN; Protocol PRN Reason: Pain, Severe (Pain Scale 7-10) Last Admin: 08/20/22 05:51 Dose: 0.25 mg Documented By: DARLYN Hydromorphone HCl (Hydromorphone Hcl 0.5 Mg/0.5 Ml Syringe) 0.25 mg IVPUSH Q5M PRN; Protocol PRN Reason: Pain, Severe (Pain Scale 7-10) Last Admin: 08/23/22 18:16 Dose: 0.25 mg Documented By: JENNY Hydroxyzine HCl (Hydroxyzine Hcl 25 Mg Tablet) 25 mg PO QID PRN PRN Reason: Anxiety Last Admin: 08/20/22 20:36 Dose: 25 mg Documented By: DARLYN Promethazine HCl 12.5 mg/ (Sodium Chloride) 50.5 mls @ 202 mls/hr IV ONCE PRN PRN Reason: Nausea and Vomiting Promethazine HCl 12.5 mg/ (Sodium Chloride) 50.5 mls @ 202 mls/hr IV ONCE PRN PRN Reason: Nausea and Vomiting Lidocaine (Lidocaine 4 % Patch Adh..Patch) 1 patch TRANSDERMA DAILY [facility]; Protocol Last Admin: 08/24/22 09:09 Dose: 1 patch Documented By: ENOCH Lidocaine HCl (Lidocaine 4 % Cream Kit) 1 appl TOPICAL QID PRN; Protocol PRN Reason: knee pain Lisinopril (Lisinopril 5 Mg Tablet) 15 mg PO DAILY [facility]; Protocol Last Admin: 08/24/22 09:08 Dose: 15 mg Documented By: ENOCH Nystatin (Nystatin Oral Susp 500,000 Unit/5 Ml Oral.Susp) 400,000 unit PO QID [facility]; Protocol Stop: 08/29/22 21:01 Last Admin: 08/24/22 09:08 Dose: 400,000 unit Documented By: ENOCH Omeprazole (Omeprazole 20 Mg Capsule.Dr) 20 mg PO BID PRN PRN Reason: Acid Reflux Ondansetron HCl (Ondansetron Hcl 4 Mg/2 Ml Vial) 4 mg IVPUSH Q6H PRN PRN Reason: Nausea Last Admin: 08/18/22 15:57 Dose: 4 mg Documented By: TIM Ondansetron HCl (Ondansetron Hcl 4 Mg/2 Ml Vial) 4 mg IVPUSH ONCE PRN PRN Reason: Nausea and Vomiting Oxycodone HCl (Oxycodone Hcl Immed Release 5 Mg Tablet) 5 mg PO ONCE PRN PRN Reason: Pain, Severe (Pain Scale 7-10) Pharmacy Consult (Consult Rx Perform Med Rec) 1 each MISCELLANE ONCE PRN PRN Reason: Consult order Phenazopyridine HCl (Phenazopyridine Hcl 200 Mg Tablet) 200 mg PO Q8H PRN PRN Reason: pain with urination Last Admin: 08/18/22 09:23 Dose: 200 mg Documented By: TIM Polyethylene Glycol (Polyethylene Glycol 3350 17 Gm Powd.Pack) 17 gm PO DAILY [facility] Last Admin: 08/24/22 09:13 Dose: Not Given Documented By: ENOCH Non-Admin Reason: Patient Refused Pravastatin Sodium (Pravastatin Sodium 40 Mg Tablet) 40 mg PO DAILY [facility] Last Admin: 08/24/22 09:08 Dose: 40 mg Documented By: ENOCH Sodium Chloride (0.9 % Sodium Chloride Flush 3 Ml Syringe) 3 ml IVFLUSH QSHIFT [facility] Last Admin: 08/24/22 09:09 Dose: 3 ml Documented By: ENOCH Vitamin D (Cholecalciferol (Vitamin D3) 25 Mcg Tablet) 50 mcg PO DAILY [facility] Last Admin: 08/23/22 08:32 Dose: Not Given Documented By: YESI Non-Admin Reason: NPO Labs CBC & Chem 7: 08/22/22 07:05 08/22/22 07:05 Assessment and Plan (1) UTI (urinary tract infection): Status: Acute (2) Sepsis: Status: Acute (3) Bladder mass: Status: Acute Plan 77-year-old female with a history of recurrent bladder cancer s/p BCG recently rediagnosed who presents to the ER for evaluation of difficulty urinating, dysuria and left lower quadrant and pelvic pain-as per the patient she has on a nd off dysuria symptoms from long time and had a cystoscopy- UTI/sepsis: NADEEN- secondary to urinary retention r/t bladder cancer- resolved with lazo catheter placement TOV today Follow BMP Hematuria- resolved Dysphagia/sore throat- due to oral thrush Nystatin swish and swallow QID x 10 days (D5) sepsis due to uti -CT abdomen admission-did not show any stone or obstruction -Urine and blood culture -staph coagulase negative contaminant, urine culture Enterococcus faecium /Klebsiella sensitive to Levaquin. -Completed 7 days levaquin History of bladder cancer with urinary retention -Possible that recurrent pain is due to bladder cancer related.? -Pain control with lidocaine patch, pyridium. Low dose dilaudid as above -TURBT 08/23/22 -Continue lazo Severe persistent asthma: continue? DuoNebs change to prn, home meds. Hypertension Blood pressures so far stable, home medication. hld statin Right knee pain no injury lidocaine cream Recommend PT eval/treat following TURBT once cleared by urology DVT prophylaxis Lovenox on hold d/t hematuria, consider resuming post-operatively. Compression therapy ongoing inpatient hospitalization stay:? TOV Time Spent With Patient Time: Total time managing care of this patient today ____ minutes. Quality Stroke Does the patient have a stroke diagnosis?: No VTE Prior VTE?: No VTE Risk Level:: Medical - moderate - high VTE Device Contraindication: N/A - Device Ordered VTE Drug Contraindication: N/A - Med Ordered
--- NOTE | 2022-08-24 14:05 | MHC.CM.PN ---
per rounds pt not ready for dc dc plan remains home with vna
[2022-08-24 14:57] VITALS: BP 109/60; PULSE 109; RESP 18; TEMP 36.6; O2SAT 92
[2022-08-24 15:05] VITALS: BP 119/69; PULSE 101; RESP 18; TEMP 36.6; O2SAT 94
--- NOTE | 2022-08-24 15:13 | MHC.SL.SWA ---
Addendum entered and electronically signed by Nilda Vines MA, CCC-DINING SERVICE INSPECTOR 08/24/22 16:55: D.S. Original Note: Speech Pathologist Impression: Pharyngeal phase dysphagia Risk of Aspiration Due to: None Dysphasia Diet Status: No change Liquid Consistency and Strategies for Safe Swallow: Liquid Intake Recommendation: Thin Liquid Intake Strategies: Double Swallow Solid Food Consistency: Dietary Recommendations: Regular Additional Modifications to Solid Foods: Moisten foods with sauce/gravy Oral Medication Intake: Crushed with Puree Please contact the pharmacy regarding appropriate crushable or liquid drug formulations that are available whenever modified delivery is recommended. Compensatory Strategies and Precautions to be Taken for Safe Swallow: Sitting Upright (90 deg) Double Swallow No Straw Small Bites and Sips Alternate Liquids/Solids Rate of Ingestion Change Avoid Specific Foods Supervision While Eating and Drinking for Safe Swallow: Intermittent Supervision Foods to Avoid: Tough, hard to chew solids, dry/sticky foods Swallowing Recommended Treatments: Compens. Strategy Educat. Recommendation for Speech: Inpatient Speech Therapy Modified Barium Swallow Study - Outpatient Pt continues to report globus sensation; reportedly ongoing for long time stating this has always happened. Recommend regular solids and thin liquids. Continue to recommend pills crushed in puree d/t pt request. Recommend outpatient MBSS and ENT referral d/t reported globus sensation in throat. Technical Aid Clinican/Clinical Fellow: Yes: Tiarra Moreau M.A., -DINING SERVICE INSPECTOR Supervisory Statement: I have reviewed and agree with the student/clinical fellow's documentation: N/A Speech Language Pathologist: Nilda Vines M.A., CCC-DINING SERVICE INSPECTOR
--- NOTE | 2022-08-24 18:27 | PC.NURSE ---
Kelly catheter removed at 12:30 for void trial. As of 1699, pt still has not voided. Bladder scan showed 310mL residual. Md aware pt has occasional urge to urinate but the urge disappears when she reaches commode. Pt denies any tenderness to lower abdomen/ pelvis. Will continue to monitor.
[2022-08-24 19:05] VITALS: BP 100/56; PULSE 107; RESP 18; TEMP 37.2; O2SAT 90
[2022-08-25] VITALS: BP 106/57; PULSE 98; RESP 18; TEMP 36.8; O2SAT 94
[2022-08-25 04:00] VITALS: BP 101/55; PULSE 97; RESP 18; TEMP 36.6; O2SAT 94
[2022-08-25 07:43] VITALS: BP 106/55; PULSE 96; RESP 16; TEMP 37.1; O2SAT 92
--- NOTE | 2022-08-25 09:16 | HO.POSTANES ---
Post Anesthesia Evaluation Post Anesthesia Evaluation Vital Signs: Vital Signs Temp Pulse Resp BP Pulse Ox O2 Del Method O2 Flow Rate 08/25/22 07:43 98.7 F 96 16 106/55 L 92 Room Air 08/25/22 04:00 98 F 97 18 101/55 L 94 Nasal Cannula 1 08/25/22 00:00 98.3 F 98 18 106/57 L 94 Room Air Anesthesia: Monitored Mental Status: Awake Pain Control: Satisfactory Nausea/Vomiting: None Hydration: Adequate Anesthesia-Related Issues: No Anes. Related Issues
[2022-08-25] MEDS: Lidocaine 4 % Patch ADH..PATCH 1 PATCH TRANSDERMA (09:28)
[2022-08-25] MEDS: Nystatin Oral Susp 500,000 UNIT/5 ML ORAL.SUSP 400000 UNIT PO (09:28)
[2022-08-25] MEDS: Pravastatin Sodium 40 MG TABLET PO (09:29)
[2022-08-25] MEDS: lisinopriL 5 MG TABLET 15 MG PO (09:29)
[2022-08-25] MEDS: 0.9 % Sodium Chloride Flush 3 ML SYRINGE IVFLUSH (09:29)
[2022-08-25] MEDS: HYDROmorphone HCl 0.5 MG/0.5 ML SYRINGE 0.25 MG IVPUSH (09:52)
[2022-08-25 11:10] VITALS: PULSE 102; RESP 16; TEMP 36.9; O2SAT 93
--- NOTE | 2022-08-25 11:28 | P.DS_ITS ---
DS: Providers Provider Date of Service: 08/25/22 Date of admission: 08/13/22 16:09 Date of discharge: 08/25/22 Primary care physician: Angeline Klein MD Consults: 08/14/22 07:41 Consult to Urology Routine Consulting Provider: [facility] Reason for consultation: Sepsis/uti Has provider been notified: No 08/14/22 14:40 Consult to Infectious Diseases Routine Consulting Provider: Samreen Shaffer Reason for consultation: uti/sepsis/?bactermia Has provider been notified: No Attending physician on discharge: [facility] Discharging clinician: Isabel Guido DS: Diagnosis Discharge Diagnosis (1) H/O primary malignant neoplasm of urinary bladder: Status: Acute (2) Bladder mass: Status: Acute (3) UTI (urinary tract infection): Status: Acute (4) Hematuria: Status: Acute DS: Summary Hospital Course Hospital Course: HPI on admission by Dr. Thompson 08/13/2022: 77-year-old female with a history of recurrent bladder cancer s/p BCG recently rediagnosed who presents to the ER for evaluation of difficulty urinating, dysuria and left lower quadrant and pelvic pain-as per the patient she has on and off dysuria symptoms from long time and had a cystoscopy 2 days back-as per urology notes:?papillary tumor and erythematous flat changes posterior wall, question of urethral erythema and was given doxycycline for that and went home and she continued to have pain which more seems like chronic, but on top of that patient is having fever and leukocytosis, abnormal UA so in the ED-patient admission was requested for sepsis secondary to UTI. In further discussion with urologist:? Patient had cystoscopy:? And patient did not do well with p.o. antibiotic so recommended IV antibiotics presently, of note patient is also due for bladder surgery coming week. Patient denies any chest pain or cough or phlegm or weakness or numbness or? vomiting or diarrhea . Hospital Course: Patient admitted to [facility] [place] for UTI with sepsis. Initially treated with ampicillin and levaquin given recent cystoscopy prior to admission. She was evaluated by ID recommending Zosyn to cover most organisms. She was also seen by Dr. Cyrstal in urology, with whom she follows outpatient. Urine culture resulted positive for klebsiella and enterococcus faecalis susceptible to levaquin. All other antibiotics dc'd at that time. Blood cultures with coag negative staph x 1, otherwise negative. She completed 7 day course of levaquin. WBC trended down and vitals normalized with treatment, sepsis resolved. Patient was noted to have urinary retention requiring straight catheterization on several occassions. As a result of her retention creatine levels did elevate to 1.81 and a result lazo catheter was inserted, though multiple attempts were made by nursing staff unsucessfully and catheter was placed by Dr. Crystal in urology. She underwent TURBT on 08/23, she was noted to have significant tumor burden and exam under anesthesia is suspicious for local invasion into vagina. Recommend outpatient referral to Oncology. Lazo catheter was removed but she failed voiding trial and lazo was reinserted 08/25. She needs to follow up this week with Dr. Crystal. She did develop oral thrush following abx and is discharged with nystatin swish and swallow for 4 more day days. Can continue miralax for constipation prn and her linezz. Time Spent with Patient Time attestation: Total time managing care of this patient today ____ minutes. Discharge coordination time: Greater than 30 minutes Quality: Safe Use of Opioids Does Pt have an Active Cancer Diagnosis on the Problem List?: Yes Opioid Measure Date for [facility] Report: 07/26/22 Opioid Measure Time for [facility] Report: 15:53 Quality: Stroke Does the patient have a stroke diagnosis?: No Physical Exam Vital Signs: Vital Signs: Last Vital Signs Temp 98.4 F 08/25/22 11:10 Pulse 102 H 08/25/22 11:10 Resp 16 08/25/22 11:10 BP 106/55 L 08/25/22 07:43 Pulse Ox 93 08/25/22 11:10 O2 Del Method 08/25/22 11:10 O2 Flow Rate 1 08/25/22 04:00 BMI result Body Mass Index 25.4 Const: General: cooperative, comfortable, alert and awake Nutritional Appearance: average body habitus Orientation/consciousness: patient oriented x3 Resp: Effort & Inspection: normal respiratory effort and able to speak in complete sentences GI: Palpation (GI): Soft to palpation and nontender Neuro: General: patient oriented x3 and CN's II-XI intact bilaterally Extrem: General: Yes no pedal edema DS: Data Data Completed and Pending Pending studies at discharge: Pending at discharge 08/23/22 17:15 Surgical [PTH] Routine Discharge Plan Discharge Anticipated Discharge Date/Time: 08/25/22 11:28 Patient Disposition: Home Health Service Discharge Diagnosis: UTI, sepsis, NADEEN secondary to urinary retention Referrals: [facility] [Outside] - 3-5 Days (Home services with [place] visiting nurses) Yolande Warner MD [Physician] - 1 Week Angeline Klein MD [Primary Care Provider] - 1 Week Discharge Medications: New polyethylene glycol 3350 17 gram Powder In Packet 17 g PO DAILY PRN (Reason: constipation) Qty: 30 0RF nystatin 100,000 unit/mL Suspension 400,000 unit PO QID 10 Days Qty: 160 0RF Protocol: Apply to: Apply to: swish and swallow Continued Fasenra 30 mg/mL syringe 30 mg subcut Q8W 30 Days Qty: 1 12RF Label Comments: DUE 09/01/22 Flovent HFA 110 mcg/actuation HFA aerosol inhaler 1 puff inhalation BID Qty: 12 3RF albuterol sulfate 2.5 mg /3 mL (0.083 %) solution for nebulization 3 ml inhalation Q6H PRN (Reason: Shortness Of Breath Or Wheezing) hydrocortisone [Proctosol HC] 2.5 % cream with perineal applicator 1 appl AL BID-QID PRN (Reason: hemorrhoids) acetaminophen [Tylenol] 325 mg Tablet 650 mg PO QID PRN (Reason: Headache) aspirin 81 mg tablet,delayed release (DR/EC) 81 mg PO DAILY albuterol sulfate 90 mcg/actuation HFA aerosol inhaler 2 puff inhalation Q4-6H PRN (Reason: Shortness Of Breath Or Wheezing) hydroxyzine HCl 25 mg tablet 25 mg PO QID PRN (Reason: Anxiety) lisinopril 10 mg tablet 15 mg PO DAILY cholecalciferol (vitamin D3) 50 mcg (2,000 unit) capsule 50 mcg PO DAILY Combivent Respimat 20-100 mcg/actuation mist 1 puff PO QID PRN (Reason: Shortness Of Breath Or Wheezing) pravastatin 40 mg tablet 40 mg PO DAILY Linzess 145 mcg capsule 145 mcg PO DAILY estradiol 0.01 % (0.1 mg/gram) cream 1 appl vaginal MOWEFR@0900 Rx Instructions: pea-sized to urethra 3 times a week phenazopyridine [Pyridium] 200 mg tablet 200 mg PO Q8H PRN (Reason: pain with urination) Qty: 20 0RF omeprazole 40 mg capsule,delayed release(DR/EC) 20 mg PO BID PRN (Reason: Acid Reflux) Discharge Orders: Discharge Order (Routine); Ordered 08/25/22 Ordered By: Isabel Guido Diet: Regular diet Activity on Discharge: As tolerated Stand Alone Forms: Patient Portal Discharge page Care Plan Goals: Continue lazo catheter until urology procedure this week. Empty regularly to prevent UTI. Bladder tumor resection as scheduled Health Concerns: UTI with sepsis Urinary retention secondary to bladder cancer - status post TURBT 08/23/22. Findings--bladder significant tumor burden and exam under anesthesia is susp icious for local invasion into vagina - will need outpatient follow up with oncology Acute kidney injury Plan of Treatment: You have completed course of levaquin (antibiotic) to treat your urinary tract infection. No further antibiotics required. You developed an acute kidney injury due to the back up of urine/urinary retention that occurred secondary to your bladder cancer. Kidney function has returned to your baseline You can use miralax if needed for constipation. You also developed oral thrush, yeast infection, following antibiotic use. Swish and swallow the nystatin 4 times daily to clear the thrush - for 4 more days Lazo catheter re-inserted 08/25 - Follow up with Dr. Crystal as scheduled. Call to schedule follow up appointment with PCP Assessment: See above Discharge Date/Time: 08/25/22 13:32
--- NOTE | 2022-08-25 11:48 | W.MHC.F2F ---
Service Date Service Date: 08/25/22 Encounter Date of encounter: 08/25/22 Reasons for Services Signs and symptoms assessed: needs correction for new lazo catheter management May flush lazo with 60cc sterile water as needed for increased sediment or blockage . May replace lazo with ( size) as needed if becomes dislodged and routine every 4 weeks Reason for correction: other MD Overseeing Care: Angeline Klein Homebound: Leaving the home is medically contraindicated at this time without the asist of a device and/or another person due th the listed conditions above and below. Reason homebound: weakness related to hospital stay Certification: Based on the above findings, I certify that this patient is confined to the home and needs intermittent correction care, physical therapy and/or speech therapy, or continues to need occupational therapy. The patient is under my care, and I have initiated the establishment of the plan of care. The patient will be followed by a physician who will periodically review the plan of care. Time Spent With Patient Time: Total time managing care of this patient today ____ minutes.
--- NOTE | 2022-08-25 12:15 | MHC.CM.PN ---
DP: PT IS MEDICALLY CLEARED FOR DC HOME WITH NEW [facility] FOR SERVICES. [facility] UPDATED. RN AWARE. [facility] WILL TRANSPORT
== END 2022-08-25 13:32 | disposition home health service (06) | DRG 669 ==
LOC: HO.ED 14:51 → HO.EDOVER 16:14 → HO.IMC 19:22
PROVIDERS: Physician Assistant; Urology; Admitting Provider Internal Medicine; Emergency Provider Emergency Medicine; PCP General Practice; Visit Provider Physician Assistant Medical
PROC: 0TBB8ZZ Excision of Bladder, Via Natural or Artificial Opening Endoscopic (ICD-10-PCS; principal; 2022-08-23 13:40)
DX: N39.0 Urinary tract infection, site not specified (principal); N17.9 Acute kidney failure, unspecified; C67.9 Malignant neoplasm of bladder, unspecified; I11.0 Hypertensive heart disease with heart failure; E78.5 Hyperlipidemia, unspecified; M25.561 Pain in right knee; R31.0 Gross hematuria; J45.50 Severe persistent asthma, uncomplicated; B96.1 Klebsiella pneumoniae [K. pneumoniae] as the cause of diseases classified elsewhere; B95.2 Enterococcus as the cause of diseases classified elsewhere; R33.9 Retention of urine, unspecified; G89.3 Neoplasm related pain (acute) (chronic); Z20.822 Contact with and (suspected) exposure to COVID-19; Z87.891 Personal history of nicotine dependence; Z88.5 Allergy status to narcotic agent; Z88.6 Allergy status to analgesic agent; Z79.82 Long term (current) use of aspirin; Z79.899 Other long term (current) drug therapy
CPT/HCPCS: 36415; 71045; 80048; 80076; 80202; 81001; 82565; 83605; 83735; 85025; 85027; 87040; 87086; 87088; 87147; 87186; 87205; 87635; 88307; 92526; 92610; 93005; 93970; 94640; 99285; C1758; J0290; J0696; J1100; J1170; J1650; J1956; J2250; J2405; J3010; J3370

== ENCOUNTER 2022-09-02 12:50 | Emergency (ER) | payer OTHER, SELFPAY ==
[2022-09-02] VITALS (7 sets, daily range): BP systolic 75–145; BP diastolic 28–87; PULSE 79–92; RESP 16–20; TEMP 36.6–37.2; O2SAT 95–99; BMI 24.5
--- NOTE | 2022-09-02 13:10 | ED.GENADULT ---
HPI - General Adult General Chief complaint: General Medical Stated complaint: hypotension Time Seen by Provider: 09/02/22 13:10 Source: patient, EMS and sampler pickup Mode of arrival: EMS Limitations: language barrier History of Present Illness HPI narrative: Patient is a 77 year old assigned female at with a history of bladder cancer with local mets to the vagina presenting to the emergency department today with general weakness, nausea, and vomiting. Patient states that she was just admitted here for bladder cancer and is now feeling weak. Patient denies any dizziness, lightheadedness, abdominal pain, fever, chills, blurry vision, double vision, loss of vision, chest pain, difficulty breathing, shortness of breath, back pain, night sweats, pain with urination, increased urinary frequency, increased urinary urgency, blood in her urine or stool, syncope or a near syncopal episode, recent trauma or falls, bowel incontinence, bowel retention, or any other complaints at this time. Patient states that she has a lazo catheter in place. Onset (ago): day(s) Severity: mild Severity scale (1-10): 2 Relieving factors: none Exacerbating factors: none Associated symptoms: nausea/vomiting and weakness Treatments prior to arrival: none Related Data Home Medications Medication Instructions Recorded Confirmed albuterol sulfate 90 mcg/actuation 2 puff inhalation Q4-6H PRN 06/24/20 08/13/22 aerosol inhaler Shortness Of Breath Or Wheezing hydroxyzine HCl 25 mg tablet 25 mg PO QID PRN Anxiety 06/24/20 08/13/22 aspirin 81 mg tablet,delayed 81 mg PO DAILY 12/21/20 08/13/22 release cholecalciferol (vitamin D3) 50 50 mcg PO DAILY 06/04/21 08/13/22 mcg (2,000 unit) capsule ipratropium 20 mcg-albuterol 100 1 puff PO QID PRN Shortness Of 06/04/21 08/13/22 mcg/actuation mist for inhalation Breath Or Wheezing (Combivent Respimat) pravastatin 40 mg tablet 40 mg PO DAILY 06/04/21 08/13/22 lisinopril 10 mg tablet 15 mg PO DAILY 03/09/22 08/13/22 omeprazole 40 mg capsule,delayed 20 mg PO BID PRN Acid Reflux 03/09/22 08/13/22 release linaclotide 145 mcg capsule 145 mcg PO DAILY 05/31/22 08/13/22 (Linzess) estradiol 0.01% (0.1 mg/gram) 1 appl vaginal MOWEFR@0900 07/25/22 08/13/22 vaginal cream acetaminophen 325 mg tablet 650 mg PO QID PRN Headache 08/13/22 08/13/22 (Tylenol) albuterol sulfate 2.5 mg/3 mL 3 ml inhalation Q6H PRN Shortness 08/13/22 08/13/22 (0.083 %) solution for nebulization Of Breath Or Wheezing hydrocortisone 2.5 % topical cream 1 appl VT BID-QID PRN hemorrhoids 08/13/22 08/13/22 with perineal applicator (Proctosol HC) Previous Rx's Medication Instructions Recorded benralizumab 30 mg/mL subcutaneous 30 mg subcut Q8W 30 days #1 mL 01/13/22 syringe (Fasenra) Flovent HFA 110 mcg/actuation 1 puff inhalation BID #12 grams 06/23/22 aerosol inhaler (fluticasone propionate) phenazopyridine 200 mg tablet 200 mg PO Q8H PRN pain with 08/11/22 (Pyridium) urination #20 tabs nystatin 100,000 unit/mL oral 400,000 unit PO QID 10 days #160 mL 08/20/22 suspension polyethylene glycol 3350 17 gram 17 g PO DAILY PRN constipation #30 08/20/22 oral powder packet ea Allergies Allergy/AdvReac Type Severity Reaction Status Date / Time aspirin [ASA] Allergy Intermediate RASH Verified 08/11/22 11:50 ibuprofen [Ibuprofen] Allergy Intermediate RASH Verified 08/11/22 11:50 morphine [MORPHINE] Allergy Intermediate ITCHING Verified 08/11/22 11:50 naproxen [From NAPROSYN] Allergy Intermediate RASH,N/V Verified 08/11/22 11:50 oxycodone [OXYCODONE] Allergy Intermediate NAUSEA & Verified 08/11/22 11:50 VOMITING, RASH Review of Systems Constitutional: Constitutional: Reports no additional constitutional complaints, Denies chills, Denies fever(s), Denies night sweats and Reports weakness Eyes: Eyes: Reports no additional eye complaints, Denies blurry vision, Denies change in vision, Denies diplopia, Denies eye discharge, Denies loss of vision and Denies eye pain ENT: Denies dizziness Cardiovascular: Cardiovascular: Reports no additional cardiovascular complaints, Denies chest pain, Denies lightheadedness, Denies Loss of Consciousness and Denies dyspnea Respiratory: Respiratory: Reports no additional respiratory complaints and Denies dyspnea Gastrointestinal: Gastrointestinal: Reports no additional gastrointestinal complaints, Denies abdominal pain, Denies melena, Denies hematochezia, Denies change in bowel habits, Denies change in stool character, Reports nausea and Reports vomiting Genitourinary: Genitourinary: Denies hematuria, Denies urinary frequency, Denies dysuria, Denies urinary incontinence, Denies urinary hesitancy and Denies urinary urgency Musculoskeletal: Musculoskeletal: Reports no additional musculoskeletal complaints, Denies numbness and Denies tingling Neurologic: Denies dizziness, Denies loss of vision, Denies numbness, Denies tingling and Reports weakness Psychiatric: Psychiatric: Reports no additional psychiatric complaints Endocrine: Endocrine: Reports no additional endocrine complaints Hematologic/Lymphatic: Hematologic/Lymphatic: Reports no additional hematologic/lymphatic complaints Allergic/Immunologic: Allergic/Immunologic: Reports no additional allergic/immunologic complaints [facility] Past Medical History Attestation statement: The following information was validated with the patient. Source: old records reviewed and nursing notes reviewed Medical History Asthma Bladder mass Emphysema lung Hemorrhoids with complication Hemorrhoids with complication Hyperlipidemia Hypertension Malignant neoplasm of urinary bladder UTI (urinary tract infection) Surgical History History of esophagogastroduodenoscopy (EGD) History of hysterectomy with bilateral oophorectomy Hx of colonoscopy (01/17/19) Family History Family History Father No problems noted. Mother Diabetes Brother Lung cancer Daughter Diabetes Social History Social History Household Members: Spouse Housing: Apartment Do you presently have visiting nurse or other home services: Yes ([employer]) Alcohol intake: never Patient Tobacco Use Status: Former Tobacco user Cigarettes Per Day: 3 Years Smoked: 55 Use of substances other than those prescribed or required for medical reasons: No Advance Directives: No service: No Current occupational status: retired Current occupation: rt handed Physical Exam ED Vital Signs: Vital Signs - 24 hr 09/02/22 13:07 09/02/22 13:24 09/02/22 13:31 Temperature 97.8 F Pulse Rate 80 83 79 Respiratory Rate 20 16 Blood Pressure 75/28 L 86/61 L 98/50 L Pulse Oximetry 96 96 99 Oxygen Delivery Method Room Air Room Air Room Air 09/02/22 14:02 09/02/22 14:38 09/02/22 14:53 Temperature 97.9 F Pulse Rate 92 87 87 Respiratory Rate 19 18 20 Blood Pressure 145/87 H 121/71 109/67 Pulse Oximetry 95 97 96 Oxygen Delivery Method Room Air Room Air Room Air 09/02/22 16:00 Temperature 99.0 F Pulse Rate 82 Respiratory Rate 18 Blood Pressure 109/61 Pulse Oximetry 95 Oxygen Delivery Method Room Air BMI result Body Mass Index 24.5 Const General: cooperative, no acute distress, alert and awake Nutritional Appearance: well nourished Orientation/consciousness: patient oriented x3 Limitations: no limitations HENMT Head: Yes normal to inspection and Yes atraumatic Ears: hearing grossly normal bilaterally and external ears normal General nose exam: Normal external nose present, no nasal discharge noted and no epistaxis Face and sinus: Yes normal facial exam, No abrasion and No laceration Mouth: Normal oral and palatal mucosa present, no drooling and no muffled voice Eyes General: appearance normal, both eyes and all related structures Periorbital: periorbital findings normal Eyelids: Yes eyelids normal Conjunctivae: conjunctivae normal Pupils: Equal, round and reactive pupils present EOM: EOMs intact bilaterally Neck Neck: Yes normal visual inspection, Yes full ROM and Yes no lymphadenopathy Chest Chest palpation & inspection: normal inspection of the chest Resp Effort & Inspection: normal respiratory effort and able to speak in complete sentences Auscultation: clear to auscultation bilaterally Cardio Rate: regular rate Rhythm: regular rhythm GI Inspection: Yes normal to inspection Palpation (GI): Soft to palpation, not firm, nontender, no guarding and not rigid Other: lazo catheter in place Neuro General: patient oriented x3 and moves all extremities Cranial nerves: Yes Equal, round and reactive pupils present Cognition (Neuro): normal cognition Motor exam (neuro): 5/5 motor strength present throughout Sensory Exam: Normal double simultaneous stimulation for sensation Coordination: [id number] test normal Extrem General: Yes normal to inspection, Yes full ROM and Yes capillary refill normal Psych Appearance: grossly normal Mental Status: mental status grossly normal Affect: normal affect Attitude: cooperative Thought process: Normal thought process present Thought content: Normal thought content present Insight: Good insight present (Psych) Medications Administered Discontinued Medications Generic Name Dose Route Start Last Admin Trade Name Frances PRN Reason Stop Dose Admin Sodium Chloride 1,000 mls @ 999 mls/hr 09/02/22 13:15 09/02/22 15:25 Ns IV 09/02/22 14:15 Infused .Q1H1M HERNESTO Infusion Sodium Chloride 1,000 mls @ 999 mls/hr 09/02/22 13:30 09/02/22 15:25 Ns IV 09/02/22 14:30 Infused .Q1H1M HERNESTO Infusion Medical Decision Making Medical Decision Making [facility] Narrative: Patient is a 77 year old assigned female at with a history of bladder cancer with local vaginal mets presenting to the emergency department today with general weakness, nausea, and vomiting. Patient's physical exam was unremarkable. Patient's blood work that was collected, was unremarkable. Patient refused to allow for a CMP redraw. Patient's urine showed a resolving UTI which is consistent with her continued treatment for UTI post discharge from the hospital. Patient's abdominal CT showed an interval decrease in bilateral hydronephrosis with lazo catheter in place, mild residual collecting system dilatation, and increased infiltrative changes surrounding the urinary bladder. Patient's COVID-19 swab was positive. Patient was initially hypotensive when she arrived however, after 2 liters of IV fluids, the patient felt much better and her hypotension resolved. I spoke to Dr. Crystal and the oncologist aviation project engineer. Both agreed with discharge and out patient follow up. I explained my physical exam findings as well as all test results to the patient. I answered all questions asked by the patient. I stressed the importance of the patient taking her medication as prescribed. I stressed the importance of the patient following up with her primary care provider. I stressed the importance of the patient returning to the emergency department immediately if her symptoms were to worsen or if she were to develop any dizziness, shortness of breath, difficulty breathing, chest pain, blurry vision, loss of vision, nausea, vomiting, abdominal pain, fever, chills, back pain, or any other complaints. Patient verbalized agreement and understanding with this treatment plan and discharge. Differential Diagnosis Differential Diagnoses: The differential diagnosis associated with the presentation includes COVID-19 Consult Healthcare Provider Management of the patient was discussed with: Glass Rolling Machine Operator (spoke with the urologist and oncologist who agreed with the plan of the patient being discharged and following up outpatient) Lab Data MDM Lab Attestation statement: I reviewed the patient's lab results. Result Diagrams: 09/02/22 14:59 09/02/22 14:59 Labs: Lab Results 09/02/22 09/02/22 09/02/22 Range/Units 13:59 13:59 14:59 WBC 7.4 (4.8-10.8) X10*3/uL RBC 4.13 L (4.20-5.50) X10*6/uL Hgb 11.3 L (12.0-16.0) g/dl Hct 36.2 L (37.0-47.0) % MCV 87.7 (80.0-98.0) fL MCH 27.4 (27.0-33.0) pg MCHC 31.2 (31.0-35.0) g/dl RDW 12.8 (11.0-16.0) % Plt Count 487 H (160-400) X10*3/uL MPV 9.8 (9.4-12.3) fL Immature Gran % (Auto) 0.3 (0.0-0.4) % Neut % (Auto) 69.0 (45-73) % Lymph % (Auto) 16.7 L (20-40) % Emanuel % (Auto) 13.9 H (2-11) % Eos % (Auto) 0.0 (0-4) % Baso % (Auto) 0.1 (0-2) % Lymph # (Auto) 1.2 (1.2-4.9) X10*3/uL Emanuel # (Auto) 1.0 (0.1-1.2) X10*3/uL Eos # (Auto) 0.0 (0.0-0.4) X10*3/uL Baso # (Auto) 0.0 (0.0-0.2) X10*3/uL Abs Immat Gran (auto) 0.02 (0.00-0.03) X10*3/uL Absolute Neuts (auto) 5.1 (2.0-8.3) x10*3/uL Absolute Nucleated RBC 0.000 (0.0-0.012) X10*3/uL Nucleated RBC % (auto) 0.0 (0.0-0.2) /100WBC Sodium Potassium Chloride Carbon Dioxide Anion Gap BUN Creatinine Estim Creat Clear Calc Estimated GFR Random Glucose Lactic Acid 1.4 (0.5-2.0) mmol/L Calcium Magnesium Total Bilirubin AST ALT Alkaline Phosphatase Total Protein Albumin Urine Color Urine Appearance Urine pH (5.0-9.0) Ur Specific Lillian (1.005-1.025) Urine Protein (Neg-Trace) mg/dL Urine Glucose (UA) (Negative) mg/dL Urine Ketones (Negative) mg/dL Urine Blood (Negative) Urine Nitrite (Negative) Ur Leukocyte Esterase (Negative) Urine RBC (0-2) /HPF Urine WBC (0-5) /HPF Ur Squamous Epith Cells (0-2) /HPF Urine Bacteria (None Seen) Hyaline Casts (0-2) /LPF Urine Yeast Influenza Type A (PCR) NEGATIVE (Negative) Influenza Type B (PCR) NEGATIVE (Negative) RSV RNA Qual (PCR) NEGATIVE (Negative) SARS-CoV-2 RNA (RT-PCR) POSITIVE A (Negative) 09/02/22 09/02/22 Range/Units 14:59 16:47 WBC (4.8-10.8) X10*3/uL RBC (4.20-5.50) X10*6/uL Hgb (12.0-16.0) g/dl Hct (37.0-47.0) % MCV (80.0-98.0) fL MCH (27.0-33.0) pg MCHC (31.0-35.0) g/dl RDW (11.0-16.0) % Plt Count (160-400) X10*3/uL MPV (9.4-12.3) fL Immature Gran % (Auto) (0.0-0.4) % Neut % (Auto) (45-73) % Lymph % (Auto) (20-40) % Emanuel % (Auto) (2-11) % Eos % (Auto) (0-4) % Baso % (Auto) (0-2) % Lymph # (Auto) (1.2-4.9) X10*3/uL Emanuel # (Auto) (0.1-1.2) X10*3/uL Eos # (Auto) (0.0-0.4) X10*3/uL Baso # (Auto) (0.0-0.2) X10*3/uL Abs Immat Gran (auto) (0.00-0.03) X10*3/uL Absolute Neuts (auto) (2.0-8.3) x10*3/uL Absolute Nucleated RBC (0.0-0.012) X10*3/uL Nucleated RBC % (auto) (0.0-0.2) /100WBC Sodium Cancelled Potassium Cancelled Chloride Cancelled Carbon Dioxide Cancelled Anion Gap Cancelled BUN Cancelled Creatinine Cancelled Estim Creat Clear Calc Cancelled Estimated GFR Cancelled Random Glucose Cancelled Lactic Acid (0.5-2.0) mmol/L Calcium Cancelled Magnesium Cancelled Total Bilirubin Cancelled AST Cancelled ALT Cancelled Alkaline Phosphatase Cancelled Total Protein Cancelled Albumin Cancelled Urine Color RED Urine Appearance Hazy Urine pH 6.5 (5.0-9.0) Ur Specific Lillian 1.010 (1.005-1.025) Urine Protein 300 (3+) H (Neg-Trace) mg/dL Urine Glucose (UA) Negative (Negative) mg/dL Urine Ketones Trace (Negative) mg/dL Urine Blood Large (3+) H (Negative) Urine Nitrite Positive H (Negative) Ur Leukocyte Esterase Moderate (2+) H (Negative) Urine RBC >20 H (0-2) /HPF Urine WBC 6-10 H (0-5) /HPF Ur Squamous Epith Cells 0-2 (0-2) /HPF Urine Bacteria Trace (None Seen) Hyaline Casts 0-2 (0-2) /LPF Urine Yeast Present Influenza Type A (PCR) (Negative) Influenza Type B (PCR) (Negative) RSV RNA Qual (PCR) (Negative) SARS-CoV-2 RNA (RT-PCR) (Negative) Radiology Impression Discussion of test interpretation with radiology: I have reviewed the radiologist's reading. Radiologist Impression: EXAMINATION: CT ABDOMEN AND PELVIS WITHOUT CONTRAST? CLINICAL INFORMATION: Abdominal pain.? COMPARISON: CT scan the abdomen and pelvis dated 07/27/2022.? TECHNIQUE: Multidetector volumetric imaging was performed from the superior aspect of the liver through the pubic symphysis. Sagittal and coronal reformatted images were obtained on the technologist's workstation. Lack of intravenous and oral contrast limits visceral evaluation. This CT examination was performed using dose optimization techniques as appropriate, variously including the following: *Automated exposure control *Adjustment of mA and/or kV according to patient size (this includes techniques or standardized protocols for targeted exams where dose is matched to indication/reason for exam; i.e. extremities or head) *Use of iterative reconstruction technique DLP: 1415 mGy-cm FINDINGS: LUNG BASES: The visualized lung bases are unremarkable.? LIVER, GALLBLADDER, AND BILIARY TREE: Mild pneumobilia. Status post cholecystectomy. Common bile duct without abnormality. PANCREAS: Unremarkable.? SPLEEN: Unremarkable.? ADRENAL GLANDS: Unremarkable.? KIDNEYS AND URETERS: Mild hydronephrosis is seen bilaterally. Small peripelvic cysts are seen bilaterally as well. No nephrolithiasis. BLADDER: Minimally distended containing a Lazo catheter. Mild adjacent stranding and infiltrative changes. GASTROINTESTINAL TRACT: The stomach, small bowel and appendix are unremarkable. Mild diverticulosis is seen throughout the colon most pronounced in the sigmoid colon.? ABDOMINAL WALL: No significant hernia is appreciated.? LYMPH NODES: No lymphadenopathy. VASCULAR: Unremarkable. PELVIC VISCERA: Mild prostatomegaly with small calcifications.? OSSEOUS STRUCTURES: Mild osteopenia, thoracolumbar levoscoliosis and multilevel degenerative changes and compression deformities without significant change. No acute/suspicious abnormality.? CT/CT abdomen pelvis wo IV con IMPRESSION: ? 1. Interval decrease in bilateral hydronephrosis with Lazo catheter in place. Mild residual collecting system dilatation. 2. Increased infiltrative changes surrounding the urinary bladder. This was not seen previously. Mild cystitis cannot be excluded. 2. Other incidental findings detailed above without significant change. Dictated By: Fernando Pratt MD Signed By: Electronically signed by Fernando Pratt MD 09/02/22 [id number] Discharge Plan Discharge Clinical Impression: COVID-19 Patient Disposition: Home, Self-Care Instructions: COVID-19 (Coronavirus Disease 2019) (ED) Additional Instructions: Follow up with your primary care provider, urologist, and oncologist. Return to the emergency department immediately if your symptoms worsen or if you develop any dizziness, shortness of breath, difficulty breathing, chest pain, blurry vision, loss of vision, nausea, vomiting, abdominal pain, fever, chills, back pain, or any other complaints. Rosalina un seguimiento con ramsay proveedor de atenci?n primaria, ur?logo y onc?logo. Regrese al departamento de emergencias de inmediato si erich s?ntomas empeoran o si presenta mareos, falta de aire, dificultad para respirar, dolor de pecho, visi?n borrosa, p?rdida de la visi?n, n?useas, v?mitos, dolor abdominal, fiebre, escalofr?os, dolor de espalda o cualquier otras quejas. Prescriptions: No Action Fasenra 30 mg/mL syringe 30 mg subcut Q8W 30 Days Qty: 1 12RF Label Comments: DUE 09/01/22 Flovent HFA 110 mcg/actuation HFA aerosol inhaler 1 puff inhalation BID Qty: 12 3RF albuterol sulfate 2.5 mg /3 mL (0.083 %) solution for nebulization 3 ml inhalation Q6H PRN (Reason: Shortness Of Breath Or Wheezing) hydrocortisone [Proctosol HC] 2.5 % cream with perineal applicator 1 appl VT BID-QID PRN (Reason: hemorrhoids) acetaminophen [Tylenol] 325 mg Tablet 650 mg PO QID PRN (Reason: Headache) polyethylene glycol 3350 17 gram Powder In Packet 17 g PO DAILY PRN (Reason: constipation) Qty: 30 0RF nystatin 100,000 unit/mL Suspension 400,000 unit PO QID 10 Days Qty: 160 0RF Protocol: Apply to: Apply to: swish and swallow aspirin 81 mg tablet,delayed release (DR/EC) 81 mg PO DAILY albuterol sulfate 90 mcg/actuation HFA aerosol inhaler 2 puff inhalation Q4-6H PRN (Reason: Shortness Of Breath Or Wheezing) hydroxyzine HCl 25 mg tablet 25 mg PO QID PRN (Reason: Anxiety) lisinopril 10 mg tablet 15 mg PO DAILY cholecalciferol (vitamin D3) 50 mcg (2,000 unit) capsule 50 mcg PO DAILY Combivent Respimat 20-100 mcg/actuation mist 1 puff PO QID PRN (Reason: Shortness Of Breath Or Wheezing) pravastatin 40 mg tablet 40 mg PO DAILY Linzess 145 mcg capsule 145 mcg PO DAILY estradiol 0.01 % (0.1 mg/gram) cream 1 appl vaginal MOWEFR@0900 Rx Instructions: pea-sized to urethra 3 times a week phenazopyridine [Pyridium] 200 mg tablet 200 mg PO Q8H PRN (Reason: pain with urination) Qty: 20 0RF omeprazole 40 mg capsule,delayed release(DR/EC) 20 mg PO BID PRN (Reason: Acid Reflux) Referrals: [facility] [place] Urology Services [Provider Group] (Follow up with your urologist. Seguimiento con ramsay ur?logo.) [facility] [place] Oncology/Hematology [Provider Group] (Call to establish and follow up with an oncologist. Llame para establecer y hacer un seguimiento con un onc?logo.) Angeline Klein MD [Primary Care Provider] - Print Language: Kinyarwanda
[2022-09-02] MEDS: 0.9 % Sodium Chloride 1,000 ML 999 ML IV ×2 (13:24)
--- NOTE | 2022-09-02 13:24 | PC.NURSE ---
Float RN Pt undressed, 18g from EMS patent, fluids started as charted. Pt [place] position. NSR on monitor. SBP 70-80s Ivon Storm and Dr Tao to bedside for evaluation with medical receptionist medical assistant.
[2022-09-02 14:28] LABS: Lactic Acid 1.4 mmol/L (0.5-2.0)
[2022-09-02 14:47] LABS: Influenza A PCR NEGATIVE (Negative); Influenza B PCR NEGATIVE (Negative); Resp Syncy Virus RNA Qual PCR NEGATIVE (Negative); SARS COV2 PCR INHOUSE POSITIVE (Negative)
[2022-09-02 15:07] LABS: MANUAL DIFF FLAG NO
[2022-09-02 15:11] LABS: Basophils Percent Auto 0.1 % (0-2); Hematocrit 36.2 % (37.0-47.0); Hemoglobin 11.3 g/dl (12.0-16.0); Imm Gran Abs Auto 0.02 X10*3/uL (0.00-0.03); Imm Gran Pct Auto 0.3 % (0.0-0.4); Lymphocytes Absolute Auto 1.2 X10*3/uL (1.2-4.9); Lymphocytes Percent Auto 16.7 % (20-40); Mean Corpuscular HGB Conc 31.2 g/dl (31.0-35.0); Mean Corpuscular Hemoglobin 27.4 pg (27.0-33.0); Mean Corpuscular Volume 87.7 fL (80.0-98.0); Mean Platelet Volume 9.8 fL (9.4-12.3); Monocytes Percent Auto 13.9 % (2-11); Neutrophils Absolute Auto 5.1 x10*3/uL (2.0-8.3); Platelet Count 487 X10*3/uL (160-400); Red Blood Count 4.13 X10*6/uL (4.20-5.50); Red Cell Distribution Width 12.8 % (11.0-16.0); White Blood Count 7.4 X10*3/uL (4.8-10.8)
--- NOTE | 2022-09-02 15:12 | PC.NURSE ---
fluids infused as documented. pt's b/p low 120s over low 70s. she denies pain. pt refuses to have any more labs drawn stating you guys have taken enough blood from my body and I don't give you permission to take anymore . pt resting quietly, no apparent distress.
--- NOTE | 2022-09-02 16:24 | MHC.EDTECH ---
PT REFUSED ADDITIONAL BLOOD WORK ,JOLANTA CROCKETT AND PROVIDER AWARE .
[2022-09-02 17:00] LABS: Appearance Urine Hazy; Color Urine RED; Glucose Urine UA Negative (Negative); Leukocyte Esterase Urine Moderate (2+) (Negative); Nitrite Urine Positive (Negative); PH 6.5 (5.0-9.0); UMIC TRIGGER UACC YES; Urine Blood Large (3+) (Negative); Urine Ketones Trace mg/dL (Negative); Urine Protein 300 (3+) mg/dL (Neg-Trace)
[2022-09-02 17:18] LABS: Bacteria Urine Trace (None Seen); Hyaline Casts Urine 0-2 /LPF (0-2); RBC Urine >20 /HPF (0-2); Squamous Epithelial Cell Urine 0-2 /HPF (0-2); UACC Culture Trigger YES
== END 2022-09-02 17:58 | disposition home or self-care (01) ==
PROVIDERS: Physician Assistant Medical; Emergency Provider Emergency Medicine; PCP General Practice
DX: U07.1 COVID-19 (principal); Z79.899 Other long term (current) drug therapy; Z87.891 Personal history of nicotine dependence
CPT/HCPCS: 0241U; 36415; 74176; 81001; 81003; 83605; 85025; 87040; 87086; 87088; 96360; 96361; 99284

== ENCOUNTER → 2022-09-07 10:54 | Outpatient (BNVA) | payer OTHER, SELFPAY | PROVIDERS: PCP General Practice; Visit Provider Urology | DX: N89.8 Other specified noninflammatory disorders of vagina (principal); R30.0 Dysuria; B37.49 Other urogenital candidiasis; Z85.51 Personal history of malignant neoplasm of bladder; Z96.0 Presence of urogenital implants | CPT/HCPCS: 99212 ==

== ENCOUNTER 2022-09-22 | Outpatient (REF) | payer OTHER, SELFPAY | END 2022-09-22 00:01 | disposition home or self-care (01) | LOC: CF | PROVIDERS: Visit Provider Urology | DX: C67.9 Malignant neoplasm of bladder, unspecified (principal); B37.49 Other urogenital candidiasis | CPT/HCPCS: 51700; 51798 ==

== ENCOUNTER → 2022-09-22 08:27 | Outpatient (BNV) | payer OTHER, SELFPAY | PROVIDERS: PCP General Practice; Visit Provider Internal Medicine | DX: C67.8 Malignant neoplasm of overlapping sites of bladder (principal) | CPT/HCPCS: 99204; 99212; 99213; 99214; 99215; G2211 ==

== ENCOUNTER → 2022-09-29 09:52 | Outpatient (REF) | payer OTHER, SELFPAY ==
--- NOTE | ~2022-09-29 | NM_ITS ---
EXAMINATION: NM BONE SCAN OF THE WHOLE BODY CLINICAL INFORMATION: Bladder cancer. COMPARISON: No previous bone scan is available for comparison. A radiograph the chest dated 08/24/2022 is the most recent radiograph available for comparison. CT scan of the abdomen and pelvis dated 09/02/2022 is also available for comparison. TECHNIQUE: Multiple gamma scintillation camera images of the whole body were performed 3 hours following the intravenous administration of 23 mCi Tc-99m MDP. FINDINGS: In the head, no significant abnormalities are present. In the thoracic cage and upper extremities, there is minimally increased activity in the right acromioclavicular joint. In the spine, a mild to moderately severe thoracolumbar scoliosis with upper lumbar convexity to the left is noted. There is mildly increased activity along the left lateral margins of the lower thoracic and upper lumbar spine corresponding to degenerative changes in these regions on the 09/02/2022 CT scan. All of these foci are mild in intensity. In the pelvis, no significant abnormalities are present. In the lower extremities, there is minimally increased activity in the patellar compartment of the right knee. Mildly to moderately increased activity is present in the anterior aspect of the tibiotalar articulation and in a second discrete focus at the insertion of the Achilles tendon in the posterior aspect of the left calcaneus. No other definite bony abnormalities are noted. The urinary bladder and faint visualization of both kidneys are noted. Moderate right-sided hydronephrosis is present and there is a subtle indentation along the inferior margin of the urinary bladder likely due to the patient's known bladder tumor. NM/NM bone scan whole body IMPRESSION: 1. A few mild nonspecific abnormalities are noted as described above and these are all likely arthritic or traumatic in etiology. None of these abnormalities is strongly suspicious for metastatic disease. 2. Right hydronephrosis.
== END ==
LOC: HO.NUCMED 09:52
PROVIDERS: PCP General Practice; Visit Provider Urology
DX: C67.5 Malignant neoplasm of bladder neck (principal)
CPT/HCPCS: 78306; A9503

== ENCOUNTER 2022-10-26 14:43 | Outpatient (REF) | payer OTHER, SELFPAY ==
--- NOTE | ~2022-10-26 | MR_ITS ---
EXAMINATION: MR PELVIS WITHOUT AND WITH CONTRAST CLINICAL INFORMATION: Malignant neoplasm of the bladder. COMPARISON: CT performed 09/02/2022 TECHNIQUE: Multisequence multidimensional MR acquisition of the pelvis performed before and after administration of 6 mL of Gadavist IV contrast. FINDINGS: There is a Kelly catheter in place within the bladder lumen. The bladder is partially distended with irregular wall thickening and trabeculated appearance. Dilated appearance of both distal ureters. Moderate right hydronephrosis. Mild left hydronephrosis. The uterus appears to be absent. There may be vaginal wall thickening. No definite mass identified. No pelvic lymphadenopathy. No abdominal wall hernia. Colonic diverticulosis noted without diverticulitis. Normal caliber aorta. No bone marrow signal abnormality. Scoliotic curvature of the spine with degenerative change throughout. MR/MR pelvis wo/w con IMPRESSION: 1. Bladder wall thickening with trabeculated appearance. Kelly catheter in place. 2. Moderate right and mild left hydroureteronephrosis. 3. Colonic diverticulosis without diverticulitis.
== END 2022-10-26 14:44 | disposition home or self-care (01) ==
LOC: HO.MRI 14:43
PROVIDERS: Visit Provider Nurse Practitioner Family
DX: C67.9 Malignant neoplasm of bladder, unspecified (principal); N32.89 Other specified disorders of bladder
CPT/HCPCS: 72197; A9585

== ENCOUNTER → 2022-11-29 12:43 | Outpatient (BNVA) | payer OTHER, SELFPAY | PROVIDERS: PCP General Practice; Visit Provider Urology ==

== ENCOUNTER → 2022-12-07 08:27 | Outpatient (BNVA) | payer OTHER, SELFPAY | PROVIDERS: PCP General Practice; Visit Provider Urology | DX: Z01.811 Encounter for preprocedural respiratory examination (principal); J45.40 Moderate persistent asthma, uncomplicated; Z91.09 Other allergy status, other than to drugs and biological substances; C67.9 Malignant neoplasm of bladder, unspecified; N13.30 Unspecified hydronephrosis | CPT/HCPCS: 99212 ==

== ENCOUNTER 2022-12-12 09:38 | Day surgery (SDC) | payer OTHER, SELFPAY ==
[2022-12-06 14:59] VITALS: BMI 26.0
--- NOTE | 2022-12-09 10:19 | P.CONAN_ITS ---
Documented by User: Mitzi Kat NP 12/09/22 10:24 HPI - Anesthesia Eval Consult details Narrative: 77yo F for TUR Bladder Tumor with cystoscopy s/p TURBT 08/2022 with GA-LMA 4 PMFSH Active Problems Active Problems: All Active Problems (Updated 12/07/22 @ 10:37 by Endy Thakkar MD) Encounter for preoperative pulmonary examination (Acute) Hydronephrosis (Acute) Trochanteric bursitis of left hip (Acute) Tendonitis of left rotator cuff (Acute) Low back pain due to bilateral sciatica (Acute) Chronic idiopathic constipation (Acute) Nausea and vomiting (Acute) Trochanteric bursitis, right hip (Acute) Moderate persistent allergic asthma (Acute) Gastroesophageal reflux disease (Acute) Cough (Acute) Environmental allergies (Acute) Right-sided ischial pain (Acute) Hemorrhoids with complication (Acute) Abdominal cramping (Acute) Bronchitis (Acute) Small intestinal bacterial overgrowth (Acute) Primary osteoarthritis, left shoulder (Acute) Dysuria (Acute) Recurrent cough (Acute) Back pain (Acute) Vaginal pain (Acute) Osteoarthritis of shoulders, bilateral (Acute) H/O primary malignant neoplasm of urinary bladder (Acute) Hematuria (Acute) Bladder mass (Acute) Sepsis (Acute) UTI (urinary tract infection) (Acute) COVID-19 (Acute) Vaginal mass (Acute) Malignant neoplasm of bladder neck (Acute) Bladder cancer (Acute) Candidal urinary tract infection (Acute) Hemorrhoids with complication (Acute) Malignant neoplasm of urinary bladder (Acute) UTI (urinary tract infection) (Acute) Past Medical History Medical History Asthma Bladder mass Emphysema lung GERD (gastroesophageal reflux disease) Hemorrhoids with complication History of COVID-19 Hyperlipidemia Hypertension Malignant neoplasm of urinary bladder Osteoarthritis UTI (urinary tract infection) Family History Family History Father No problems noted. Mother Diabetes Brother Lung cancer Daughter Diabetes Family history of problems with anesthesia: No Surgical History Surgical History History of ERCP History of esophagogastroduodenoscopy (EGD) History of hysterectomy with bilateral oophorectomy Hx laparoscopic cholecystectomy Hx of colonoscopy (01/17/19) Hx of cystoscopy History of Problems with Anesthesia: No Social History Social History Household Members: Spouse Housing: Apartment Do you presently have visiting nurse or other home services: Yes ([employer]) Alcohol intake: never Patient Tobacco Use Status: Former Tobacco user Quit Date: 7 yrs ago Years Smoked: 55 Use of substances other than those prescribed or required for medical reasons: No Are you DNR?: No Advance Directives: No Advance Directives Information Provided: Yes service: No Current occupational status: retired Current occupation: rt handed Meds Allergies Allergy/AdvReac Type Severity Reaction Status Date / Time aspirin [ASA] Allergy Intermediate RASH Verified 12/12/22 11:01 ibuprofen [Ibuprofen] Allergy Intermediate RASH Verified 12/12/22 11:01 morphine [MORPHINE] Allergy Intermediate ITCHING Verified 12/12/22 11:01 naproxen [From NAPROSYN] Allergy Intermediate RASH,N/V Verified 12/12/22 11:01 oxycodone [OXYCODONE] Allergy Intermediate NAUSEA & Verified 12/12/22 11:01 VOMITING, RASH sulfamethoxazole AdvReac Severe Abdominal Verified 12/12/22 11:01 [From Bactrim] Pain trimethoprim [From Bactrim] AdvReac Severe Abdominal Verified 12/12/22 11:01 Pain Home Medications Medication Instructions Recorded Confirmed Last Taken Type albuterol sulfate 90 mcg/actuation 2 puff inhalation Q4-6H PRN 06/24/20 12/12/22 Unknown History aerosol inhaler Shortness Of Breath Or Wheezing hydroxyzine HCl 25 mg tablet 25 mg PO QID PRN Anxiety 06/24/20 12/12/22 Unknown History cholecalciferol (vitamin D3) 50 50 mcg PO DAILY 06/04/21 12/12/22 Unknown Histor y mcg (2,000 unit) capsule ipratropium 20 mcg-albuterol 100 1 puff PO QID PRN Shortness Of 06/04/21 12/12/22 Unknown History mcg/actuation mist for inhalation Breath Or Wheezing (Combivent Respimat) pravastatin 40 mg tablet 40 mg PO DAILY 06/04/21 12/12/22 Unknown History lisinopril 10 mg tablet 15 mg PO DAILY 03/09/22 12/12/22 08/12/22 History omeprazole 40 mg capsule,delayed 20 mg PO BID PRN Acid Reflux 03/09/22 12/12/22 Unknown History release acetaminophen 325 mg tablet 650 mg PO QID PRN Headache 08/13/22 12/12/22 Unknown History (Tylenol) albuterol sulfate 2.5 mg/3 mL 3 ml inhalation Q6H PRN Shortness 08/13/22 12/12/22 Unknown History (0.083 %) solution for nebulization Of Breath Or Wheezing Exam Exam Date and Time: December 09, 2022 1019 Height,Weight and Vital Signs: Height 5 ft 3 in Weight 66.678 kg Pertinent Lab Results Pertinent Lab Results: Laboratory Tests 09/22/22 09/22/22 08:35 08:35 WBC 9.3 Hgb 11.6 L Hct 38.5 Plt Count 365 D Sodium 140 Potassium 4.2 Chloride 107 Carbon Dioxide 27 BUN 13 Creatinine 0.81 Narrative Narrative: EKG 08/2022 Vent. Rate : 095 BPM ? ? Atrial Rate : 095 BPM ?? P-R Int : 166 ms? QRS Dur : 078 ms ? ? QT Int : 374 ms ? ? ? P-R-T Axes : 074 002 066 degrees ?? QTc Int : 469 ms ? Normal sinus rhythm Normal ECG When compared with ECG of 01-MAR-2018 14:42, No significant change was found Assessment and Plan Assessment Anesthesia Assessment: Chart Reviewed Final Anesthetic Review Family History of Problems with Anesthesia: No History of Problems with Anesthesia: No Documented by User: Jaylen Lindsay MD 12/12/22 12:36 [facility] Past Medical History Medical History Asthma Bladder mass Emphysema lung GERD (gastroesophageal reflux disease) Hemorrhoids with complication History of COVID-19 Hyperlipidemia Hypertension Malignant neoplasm of urinary bladder Osteoarthritis UTI (urinary tract infection) Family History Family History Father No problems noted. Mother Diabetes Brother Lung cancer Daughter Diabetes Surgical History Surgical History History of ERCP History of esophagogastroduodenoscopy (EGD) History of hysterectomy with bilateral oophorectomy Hx laparoscopic cholecystectomy Hx of colonoscopy (01/17/19) Hx of cystoscopy Social History Social History Household Members: Spouse Housing: Apartment Do you presently have visiting nurse or other home services: Yes ([employer]) Alcohol intake: never Patient Tobacco Use Status: Former Tobacco user Quit Date: 7 yrs ago Years Smoked: 55 Use of substances other than those prescribed or required for medical reasons: No Are you DNR?: No Advance Directives: No Advance Directives Information Provided: Yes service: No Current occupational status: retired Current occupation: rt handed Meds Allergies Allergy/AdvReac Type Severity Reaction Status Date / Time aspirin [ASA] Allergy Intermediate RASH Verified 12/12/22 11:01 ibuprofen [Ibuprofen] Allergy Intermediate RASH Verified 12/12/22 11:01 morphine [MORPHINE] Allergy Intermediate ITCHING Verified 12/12/22 11:01 naproxen [From NAPROSYN] Allergy Intermediate RASH,N/V Verified 12/12/22 11:01 oxycodone [OXYCODONE] Allergy Intermediate NAUSEA & Verified 12/12/22 11:01 VOMITING, RASH sulfamethoxazole AdvReac Severe Abdominal Verified 12/12/22 11:01 [From Bactrim] Pain trimethoprim [From Bactrim] AdvReac Severe Abdominal Verified 12/12/22 11:01 Pain Home Medications Medication Instructions Recorded Confirmed Last Taken Type albuterol sulfate 90 mcg/actuation 2 puff inhalation Q4-6H PRN 06/24/20 12/12/22 Unknown History aerosol inhaler Shortness Of Breath Or Wheezing hydroxyzine HCl 25 mg tablet 25 mg PO QID PRN Anxiety 06/24/20 12/12/22 Unknown History cholecalciferol (vitamin D3) 50 50 mcg PO DAILY 06/04/21 12/12/22 Unknown History mcg (2,000 unit) capsule ipratropium 20 mcg-albuterol 100 1 puff PO QID PRN Shortness Of 06/04/21 12/12/22 Unknown History mcg/actuation mist for inhalation Breath Or Wheezing (Combivent Respimat) pravastatin 40 mg tablet 40 mg PO DAILY 06/04/21 12/12/22 Unknown History lisinopril 10 mg tablet 15 mg PO DAILY 03/09/22 12/12/22 08/12/22 History omeprazole 40 mg capsule,delayed 20 mg PO BID PRN Acid Reflux 03/09/22 12/12/22 Unknown History release acetaminophen 325 mg tablet 650 mg PO QID PRN Headache 08/13/22 12/12/22 Unknown History (Tylenol) albuterol sulfate 2.5 mg/3 mL 3 ml inhalation Q6H PRN Shortness 08/13/22 12/12/22 Unknown History (0.083 %) solution for nebulization Of Breath Or Wheezing Exam Airway Mallampati Class: II TM Dist: >3cm Neck ROM: Limited Heart: rrr Lungs: cta Assessment and Plan Final Anesthetic Review NPO: Yes ASA Class: III Final Preanesthetic Review: No Changes in Pt Med Stat, Meds/Allgs Chart Reviewed, Consent Obtained/Reviewed and Anes Risks/Benef Reviewed Patient Risk: Intermediate Procedure Risk: Intermediate Anesthetic Plan Anesthetic Plan: GA and Agree w/ Assess. and Plan Disposition: Standard PACU
[2022-12-12] VITALS (7 sets, daily range): BP systolic 82–93; BP diastolic 41–52; PULSE 75–104; RESP 16–20; TEMP 36.6–37.3; O2SAT 95–98
[2022-12-12 11:08] LABS: IDNOW Serial# 55D5AD1C
[2022-12-12 11:09] LABS: COVID-19 Test Negative (Negative)
[2022-12-12] MEDS: Lactated Ringers 1,000 ML 100 ML IVCONT (11:34)
--- NOTE | 2022-12-12 12:53 | MHC.SHP ---
Pre-Procedural Eval Section A Date of Service: 12/12/22 The patient is an INPATIENT: No Changes since office visit: No Cold of Flu in the past 2 weeks, No New Medical Problems, No Changes in Medication and No Patient answered all questions The History & Physical has been completed within 30 days and I have reviewed it.: No Section B Chief Complaint: Other specified disorders of bladder Allergies: Allergies Allergy/AdvReac Type Severity Reaction Status Date / Time aspirin [ASA] Allergy Intermediate RASH Verified 12/12/22 11:01 ibuprofen [Ibuprofen] Allergy Intermediate RASH Verified 12/12/22 11:01 morphine [MORPHINE] Allergy Intermediate ITCHING Verified 12/12/22 11:01 naproxen [From NAPROSYN] Allergy Intermediate RASH,N/V Verified 12/12/22 11:01 oxycodone [OXYCODONE] Allergy Intermediate NAUSEA & Verified 12/12/22 11:01 VOMITING, RASH sulfamethoxazole AdvReac Severe Abdominal Verified 12/12/22 11:01 [From Bactrim] Pain trimethoprim [From Bactrim] AdvReac Severe Abdominal Verified 12/12/22 11:01 Pain Review of Systems Sugical H&P ROS: Negative: Constitution, Cardiovascular, Respiratory, Neurological, Psychiatric, Hem-Onc, Allergic/Immunologic, Gastrointestinal, Genitourinary, Musculoskeletal, Integumentary, Endocrine and Eyes/Ears/Nose/Throat Exam Surgical H&P Exam: Normal: HEENT, Normal: Heart, Normal: Lungs, Normal: Extremities, Normal: Abdomen, Normal: Skin and Normal: Neurological Plan Diagnosis/Plan: Unchanged (cysto, bilateral retrogrades, TURBT) I have reviewed the history and physical and performed a pertinent physical examination on my patient. No changes have occurred unless specified. Time Spent With Patient Time: Total time managing care of this patient today ____ minutes.
--- NOTE | 2022-12-12 14:27 | W.PM.OPN ---
Operative Note Operative Note Date of Service: 12/12/22 Narrative: PreOperative Diagnosis: bladder cancer Post Operative Diagnosis: bladder cancer Procedure: TURBT Surgeon: Dr Severo Blair Anesthesia: general Indications for procedure: prior resection with invasive bladder cancer Procedure: After informed consent was verified the patient was brought to the operating room and placed in a supine position. Anesthesia was administered per protocol. The patient was placed in a modified dorsal lithotomy position and prepped and draped in a sterile fashion. Safety pause time-out was performed. Antibiotics were confirmed. A 26 Spanish continuous flow resectoscope was inserted per urethra. The visual obturator was used in order to minimize potential for urethral damage. difficult entry to bladder due to posterior urethral thickening. Unable to find ureteric orifice bilaterally. Rest of bladder appeared normal. There appears to be invasive bladder cancer running from the 03:00 o'clock to 9 o'clock position on the inferior aspect of the urethra. This area was resected and specimen sent for pathology. Examination under anesthesia shows thickening at the level of the urethral sphincter extending to the right side. Not fixed to sidewall. At the completion of the procedure the bladder was irrigated. The cystoscope was removed. Sixteen Spanish Kelly catheter placed Pathology: bladder specimens Drains:
[2022-12-12] MEDS: Acetaminophen 1,000 MG/100 ML PIGGYBACK 400 MG IV (14:31)
== END 2022-12-12 15:37 | disposition home or self-care (01) ==
PROVIDERS: PCP General Practice; Visit Provider Urology
PROC: 0TBB8ZZ Excision of Bladder, Via Natural or Artificial Opening Endoscopic (ICD-10-PCS; CPT 52234; principal; 2022-12-12 11:50)
DX: C67.9 Malignant neoplasm of bladder, unspecified (principal); N13.30 Unspecified hydronephrosis; N39.0 Urinary tract infection, site not specified; J45.909 Unspecified asthma, uncomplicated; J43.9 Emphysema, unspecified; I10 Essential (primary) hypertension; Z87.891 Personal history of nicotine dependence; E78.5 Hyperlipidemia, unspecified; M19.90 Unspecified osteoarthritis, unspecified site; Z79.82 Long term (current) use of aspirin; Z79.51 Long term (current) use of inhaled steroids; Z79.899 Other long term (current) drug therapy; Z88.8 Allergy status to other drugs, medicaments and biological substances; Z88.2 Allergy status to sulfonamides; Z90.49 Acquired absence of other specified parts of digestive tract; Z20.822 Contact with and (suspected) exposure to COVID-19; Z86.16 Personal history of COVID-19
CPT/HCPCS: 52234; 87635; 88307; C1758; J0131; J1100; J1956; J2405; J3010; Q9967

== ENCOUNTER 2022-12-16 01:26 | Emergency (ER) | payer OTHER, SELFPAY ==
[2022-12-16 01:34] VITALS: BP 108/58; PULSE 107; RESP 18; TEMP 36.2; O2SAT 98; BMI 21.4
[2022-12-16 01:46] VITALS: BP 104/65; PULSE 95; RESP 18; TEMP 36.1; O2SAT 98
--- NOTE | 2022-12-16 02:49 | ED.FEMALEGU ---
HPI - Female Genitourinary General Chief complaint: Urogenital-Female Stated complaint: catheter fell out Time Seen by Provider: 12/16/22 02:48 Source: patient Mode of arrival: ambulatory Limitations: no limitations History of Present Illness HPI Narrative: 77-year-old female with a history of bladder cancer who was operated on by Dr. Blair on 12/12/2022. Patient was discharged home with a 16 [place] Kelly catheter in place. She states that the Kelly catheter accidentally dislodged this morning at 01:00 hours. Patient is complaining of severe bladder pain. The patient's bladder scan revealed 193 cc of fluid in her bladder. The following was obtained from Dr. Blair's operative note on 12/12/2022 difficult entry to bladder due to posterior urethral thickening. Unable to find ureteric orifice bilaterally. Rest of bladder appeared normal. There appears to be invasive bladder cancer running from the 03:00 o'clock to 9 o'clock position on the inferior aspect of the urethra. This area was resected and specimen sent for pathology. Examination under anesthesia shows thickening at the level of the urethral sphincter extending to the right side. Not fixed to sidewall At the completion of the procedure the bladder was irrigated.? The cystoscope was removed.? ? Sixteen [place] Kelly catheter placed Related Data Home Medications Medication Instructions Recorded Confirmed albuterol sulfate 90 mcg/actuation 2 puff inhalation Q4-6H PRN 06/24/20 12/12/22 aerosol inhaler Shortness Of Breath Or Wheezing hydroxyzine HCl 25 mg tablet 25 mg PO QID PRN Anxiety 06/24/20 12/12/22 cholecalciferol (vitamin D3) 50 50 mcg PO DAILY 06/04/21 12/12/22 mcg (2,000 unit) capsule ipratropium 20 mcg-albuterol 100 1 puff PO QID PRN Shortness Of 06/04/21 12/12/22 mcg/actuation mist for inhalation Breath Or Wheezing (Combivent Respimat) pravastatin 40 mg tablet 40 mg PO DAILY 06/04/21 12/12/22 lisinopril 10 mg tablet 15 mg PO DAILY 03/09/22 12/12/22 omeprazole 40 mg capsule,delayed 20 mg PO BID PRN Acid Reflux 03/09/22 12/12/22 release acetaminophen 325 mg tablet 650 mg PO QID PRN Headache 08/13/22 12/12/22 (Tylenol) albuterol sulfate 2.5 mg/3 mL 3 ml inhalation Q6H PRN Shortness 08/13/22 12/12/22 (0.083 %) solution for nebulization Of Breath Or Wheezing Previous Rx's Medication Instructions Recorded Flovent HFA 110 mcg/actuation 1 puff inhalation BID #12 grams 06/23/22 aerosol inhaler (fluticasone propionate) polyethylene glycol 3350 17 gram 17 g PO DAILY PRN constipation #30 08/20/22 oral powder packet ea estradiol 0.01% (0.1 mg/gram) 1 appl vaginal MOWEFR@0900 #42.5 10/24/22 vaginal cream grams benralizumab 30 mg/mL subcutaneous 30 mg subcut Q8W #1 mL 12/07/22 syringe Allergies Allergy/AdvReac Type Severity Reaction Status Date / Time aspirin [ASA] Allergy Intermediate RASH Verified 12/12/22 11:01 ibuprofen [Ibuprofen] Allergy Intermediate RASH Verified 12/12/22 11:01 morphine [MORPHINE] Allergy Intermediate ITCHING Verified 12/12/22 11:01 naproxen [From NAPROSYN] Allergy Intermediate RASH,N/V Verified 12/12/22 11:01 oxycodone [OXYCODONE] Allergy Intermediate NAUSEA & Verified 12/12/22 11:01 VOMITING, RASH sulfamethoxazole AdvReac Severe Abdominal Verified 12/12/22 11:01 [From Bactrim] Pain trimethoprim [From Bactrim] AdvReac Severe Abdominal Verified 12/12/22 11:01 Pain Review of Systems Review of Systems: Yes all other systems are reviewed and are negative PMFSH Past Medical History Medical History Asthma Bladder mass Emphysema lung GERD (gastroesophageal reflux disease) Hemorrhoids with complication History of COVID-19 Hyperlipidemia Hypertension Malignant neoplasm of urinary bladder Osteoarthritis UTI (urinary tract infection) Surgical History History of ERCP History of esophagogastroduodenoscopy (EGD) History of hysterectomy with bilateral oophorectomy Hx laparoscopic cholecystectomy Hx of colonoscopy (01/17/19) Hx of cystoscopy Family History Family History Father No problems noted. Mother Diabetes Brother Lung cancer Daughter Diabetes Social History Social History Household Members: Spouse Housing: Apartment Do you presently have visiting nurse or other home services: Yes ([employer]) Alcohol intake: never Patient Tobacco Use Status: Former Tobacco user Quit Date: 7 yrs ago Years Smoked: 55 Smoked in Last 30 Days: No Use of substances other than those prescribed or required for medical reasons: No Advance Directives: No Advance Directives Information Provided: Yes Patient : No service: No Current occupational status: retired Current occupation: rt handed Physical Exam Vital Signs: Vital Signs: Last Vital Signs Temp 97.8 F 12/16/22 04:00 Pulse 87 12/16/22 04:00 Resp 14 12/16/22 04:00 BP 127/83 12/16/22 04:00 Pulse Ox 97 12/16/22 04:00 O2 Del Method Room Air 12/16/22 04:00 BMI result Body Mass Index 21.4 Vital signs were normal General: Patient is moaning in pain, she appears to be uncomfortable secondary to her bladder pain Neck: Soft Lungs: Clear to auscultation breath sounds symmetric bilaterally Heart: Regular rate rhythm, normal S1-S2 no murmurs rubs gallops Abdomen: Normoactive bowel sounds, patient has moderate tenderness palpation over her suprapubic area Extremities: Normal Neuro: Nonfocal Medical Decision Making Medical Decision Making MDM Narrative: 77-year-old with a history of bladder/urethral cancer status post resection on 12/12/[address] Blair. Patient was discharged with a 16 [place] Kelly catheter which was accidentally dislodged at 01:00 hours this morning. Patient is not complaining of severe bladder pain. Her physical examination did reveal suprapubic tenderness. I will contact the on-call urologist, Dr. Lisa Duff to discuss insertion of a Kelly catheter. 0538: I did discuss the insertion of the catheter with the covering urologist. I did assist the nurse and putting a 16 [place] Kelly catheter, there was no difficulty in insertion. The patient drained approximately 350 cc of blood colored urine with no clots. Patient is feeling significantly better and will be discharged home with a Kelly catheter in place. She was advised to follow-up with Dr. Blair for re-evaluation. Differential Diagnosis Differential diagnosis includes but is not limited to destruction secondary to blood clots, urinary retention, urethral injury Consult Healthcare Provider Management of the patient was discussed with: Laboratory Monitor (On-call urologist) Lab Data MDM Lab Attestation statement: I reviewed the patient's lab results. My interpretation of patient's labs are as follows: Urinalysis was positive for protein and blood. Microscopic revealed greater than 20 RBCs, greater than 50 WBCs, 0-2 squamous cells but no bacteria. Given the fact that there was no bacteria I do not think that the patient needs to be on antibiotics at this time and she will be treated for urine culture comes back positive. Labs: Lab Results 12/16/22 Range/Units 05:23 Urine Color Red A Urine Appearance Cloudy Urine pH 6.0 (5.0-9.0) Ur Specific [place] <= 1.005 (1.005-1.025) Urine Protein 100 (2+) H (Neg-Trace) mg/dL Urine Glucose (UA) Negative (Negative) mg/dL Urine Ketones Negative (Negative) mg/dL Urine Blood Large (3+) H (Negative) Urine Nitrite Negative (Negative) Ur Leukocyte Esterase Large (3+) H (Negative) Discharge Plan Discharge Clinical Impression: Dislodged Kelly catheter, Status post insertion of Kelly catheter, Suprapubic pain Patient Disposition: Home, Self-Care Instructions: Kelly Catheter Placement and Care (ED) Additional Instructions: Keep the Kelly in place until you follow-up with Dr. Blair. Follow-up with your doctor in 2 days. Please return to the emergency department if your symptoms get worse or if you develop any symptoms that are concerning to you. Prescriptions: No Action Flovent HFA 110 mcg/actuation HFA aerosol inhaler 1 puff inhalation BID Qty: 12 3RF estradiol 0.01 % (0.1 mg/gram) cream 1 appl vaginal MOWEFR@0900 Qty: 42.5 1RF Rx Instructions: pea-sized to urethra 3 times a week benralizumab 30 mg/mL syringe 30 mg subcut Q8W Qty: 1 11RF albuterol sulfate 2.5 mg /3 mL (0.083 %) solution for nebulization 3 ml inhalation Q6H PRN (Reason: Shortness Of Breath Or Wheezing) acetaminophen [Tylenol] 325 mg Tablet 650 mg PO QID PRN (Reason: Headache) polyethylene glycol 3350 17 gram Powder In Packet 17 g PO DAILY PRN (Reason: constipation) Qty: 30 0RF albuterol sulfate 90 mcg/actuation HFA aerosol inhaler 2 puff inhalation Q4-6H PRN (Reason: Shortness Of Breath Or Wheezing) hydroxyzine HCl 25 mg tablet 25 mg PO QID PRN (Reason: Anxiety) lisinopril 10 mg tablet 15 mg PO DAILY cholecalciferol (vitamin D3) 50 mcg (2,000 unit) capsule 50 mcg PO DAILY Combivent Respimat 20-100 mcg/actuation mist 1 puff PO QID PRN (Reason: Shortness Of Breath Or Wheezing) pravastatin 40 mg tablet 40 mg PO DAILY omeprazole 40 mg capsule,delayed release(DR/EC) 20 mg PO BID PRN (Reason: Acid Reflux)
[2022-12-16 04:00] VITALS: BP 127/83; PULSE 87; RESP 14; TEMP 36.6; O2SAT 97
[2022-12-16 05:31] LABS: Appearance Urine Cloudy; Color Urine Red; Glucose Urine UA Negative (Negative); Leukocyte Esterase Urine Large (3+) (Negative); Nitrite Urine Negative (Negative); Specific Gravity - Urine <= 1.005 (1.005-1.025); UMIC TRIGGER UACC YES; Urine Blood Large (3+) (Negative); Urine Ketones Negative (Negative); Urine Protein 100 (2+) mg/dL (Neg-Trace)
[2022-12-16 05:35] LABS: Bacteria Urine None Seen (None Seen); Hyaline Casts Urine 0-2 /LPF (0-2); RBC Urine >20 /HPF (0-2); Squamous Epithelial Cell Urine 0-2 /HPF (0-2); UACC Culture Trigger YES; WBC Urine >50 /HPF (0-5)
== END 2022-12-16 06:43 | disposition home or self-care (01) ==
PROVIDERS: Emergency Provider Emergency Medicine Emergency Medical Services
DX: T83.028A Displacement of other urinary catheter, initial encounter (principal); R10.33 Periumbilical pain; Y73.2 Prosthetic and other implants, materials and accessory gastroenterology and urology devices associated with adverse incidents; Y92.9 Unspecified place or not applicable; Z79.899 Other long term (current) drug therapy
CPT/HCPCS: 81001; 87086; 99212; 99283; 99285

== ENCOUNTER 2022-12-19 11:17 | Outpatient (REF) | payer OTHER, SELFPAY | END 2022-12-19 11:18 | disposition home or self-care (01) | LOC: HO.MDS 11:17 | PROVIDERS: Visit Provider Internal Medicine Pulmonary Disease | DX: J45.50 Severe persistent asthma, uncomplicated (principal) | CPT/HCPCS: 96372; J0517 ==

== ENCOUNTER → 2022-12-21 14:19 | Outpatient (BNVA) | payer OTHER, SELFPAY | PROVIDERS: PCP General Practice; Visit Provider Urology | DX: C67.0 Malignant neoplasm of trigone of bladder (principal); N13.30 Unspecified hydronephrosis; Z96.0 Presence of urogenital implants | CPT/HCPCS: 99212 ==

== ENCOUNTER 2022-12-27 15:21 | Inpatient (IN) | payer OTHER, SELFPAY ==
--- NOTE | ~2022-12-27 | IR_ITS ---
EXAMINATION: FLUOROSCOPY NEPHROSTOGRAM CLINICAL INFORMATION: Right hydroureteronephrosis. History of bladder cancer with several previous surgeries. COMPARISON: CT of the abdomen and pelvis without contrast 12/27/2022. TECHNIQUE: Following explaining ultrasound fluoroscopy-guided right nephrostomy procedure, benefits and risk, a written consent was obtained. Consent for conscious sedation was obtained as well. Patient was placed prone on fluoroscopy table in angiography suite. The right back was cleaned and draped in usual sterile manner. Ultrasound imaging was performed under sterile ultrasound guidance and an optimal site was selected and marked on the skin. 1% lidocaine was injected at puncture site. A long Chiba needle was then advanced under ultrasound guidance and the right lower pole kidney was punctured. Stylet was removed and after observing urine return a thin guidewire was advanced and placed in the pelvis. The needle was withdrawn and 5 [place]ambian stiffener with sheath was advanced over the guidewire following a small skin incision. The stiffener was held in position while the sheath was advanced into the proximal ureter. The guidewire and the stiffener was removed and a 0.035 J-wire was advanced through the pelvis into the proximal to distal ureter. The wire could not be advanced into the bladder due to distal ureteral orificial obstruction or narrowing. Several attempts were made to advance the guidewire; however, were unsuccessful. Subsequently the sheath was removed and an 8.5 [place]ian APD catheter was advanced all the way to the distal ureter and contrast was injected. No contrast could be seen extending into the bladder. The catheter was then pulled all the way into the pelvis and a pigtail was formed. The catheter was then sutured to the skin with 3-0 nylon sutures. Initially the catheter was connected to a drainage bag with a three-way valve system. No hemorrhage seen. Sterile dressing applied at the suture and the puncture site. Conscious sedation was utilized during the exam and patient monitored by IR nursing and radiologist. FINDINGS: On ultrasound imaging there is moderately dilated right kidney pelvis and the calyces. On contrast injection through the catheter in the distal ureter there is severe narrowing of distal ureteral orifice and no contrast could be advanced to the bladder. Several attempts were also made to advance the guidewire into the bladder but were unsuccessful. 8.5 [place] APD catheter was left in the pelvis and anchored to the skin. There are no immediate complications. FLUOROSCOPY TIME: 3.3 minutes. DOSE AREA PRODUCT: 832 uGy-m2 (microgray-meter squared). SEDATION TIME: 25 minutes. IR/IR nephrostomy IMPRESSION: Successful ultrasound-guided placement of 8.5 [place]ian right nephrostomy catheter. The catheter or the guidewire could not be advanced into the bladder likely due to stricture or significant high-grade stenosis or narrowing. No contrast could be advanced either.
--- NOTE | ~2022-12-27 | CT_ITS ---
EXAMINATION: CT ABDOMEN AND PELVIS WITHOUT CONTRAST CLINICAL INFORMATION: Hematuria COMPARISON: 09/02/2022 . Pelvic MRI 10/26/2022. TECHNIQUE: Multidetector volumetric imaging was performed from the superior aspect of the liver through the pubic symphysis. Sagittal and coronal reformatted images were obtained on the technologist's workstation. This CT examination was performed using dose optimization techniques as appropriate, variously including the following: *Automated exposure control *Adjustment of mA and/or kV according to patient size (this includes techniques or standardized protocols for targeted exams where dose is matched to indication/reason for exam; i.e. extremities or head) *Use of iterative reconstruction technique DLP: 277 mGy-cm FINDINGS: LUNG BASES: The visualized lung bases are unremarkable. LIVER, GALLBLADDER, AND BILIARY TREE: The liver is normal in size, shape, and attenuation. No focal hepatic lesion or biliary ductal dilatation is present. Pneumobilia centrally. Cholecystectomy. PANCREAS: Unremarkable. SPLEEN: Unremarkable. ADRENAL GLANDS: Unremarkable. KIDNEYS AND URETERS: The kidneys are normal in size, shape, and attenuation. There is severe right hydroureteronephrosis. No right-sided calculi. Multiple phleboliths in the pelvis along the ureter. There is wall thickening of the bladder at the site of the ureteral insertion. No left hydronephrosis. BLADDER: Partially distended with Kelly catheter in place. Appearance of bladder wall thickening base. GASTROINTESTINAL TRACT: The stomach is unremarkable. Normal caliber small bowel. No obstruction. Normal appendix. Colonic diverticulosis without diverticulitis. No colonic wall thickening or inflammation. No free air or free fluid. ABDOMINAL WALL: No significant hernia is appreciated. LYMPH NODES: Normal. VASCULAR: Normal caliber aorta with mild atherosclerotic calcification. PELVIC VISCERA: Uterus not seen. No adnexal mass. OSSEOUS STRUCTURES: No acute or suspicious osseous abnormality. Osteopenia. Levoscoliosis of the lumbar spine with advanced degenerative change of the spine. CT/CT abdomen pelvis wo IV con IMPRESSION: Severe right hydroureteronephrosis. The extent of hydronephrosis has increased from the prior MRI. No obstructing calculus. There is wall thickening at the bladder base. This is consistent with the known history of bladder neoplasm. Fleischner guidelines were followed.
[2022-12-27 15:59] VITALS: BP 109/51; PULSE 83; RESP 18; TEMP 36.8; O2SAT 98; BMI 19.6
--- NOTE | 2022-12-27 15:59 | ED.ABDPAIN ---
HPI - Abdominal Pain General Chief Complaint: Urogenital-Female <YAMIL Green - Last Filed: 12/27/22 16:01> Stated Complaint: Abd pain/blood in Urine <YAMIL Green - Last Filed: 12/27/22 16:01> Time Seen by Provider: 12/27/22 21:00 <YAMIL Green - Last Filed: 12/27/22 16:01> Source: patient <Kaelyn Tao MD - Last Filed: 12/27/22 21:46> Mode of arrival: ambulatory <Kaelyn Tao MD - Last Filed: 12/27/22 21:46> History of Present Illness HPI narrative: 77-year-old female referred and from Oncology for lower pelvic pain and hematuria. Patient has 1st noted hematuria that started approximately 3 weeks ago and on review Urology and Oncology patient has bladder cancer and the current recommendation is for neoadjuvant therapy from oncology. Patient otherwise denies any nausea, vomiting, fever, chills. <Kaelyn Tao MD - Last Filed: 12/27/22 21:46> Related Data Home Medications: Home Medications Medication Instructions Recorded Confirmed albuterol sulfate 90 mcg/actuation 2 puff inhalation Q4-6H PRN 06/24/20 12/12/22 aerosol inhaler Shortness Of Breath Or Wheezing hydroxyzine HCl 25 mg tablet 25 mg PO QID PRN Anxiety 06/24/20 12/12/22 ipratropium 20 mcg-albuterol 100 1 puff PO QID PRN Shortness Of 06/04/21 12/12/22 mcg/actuation mist for inhalation Breath Or Wheezing (Combivent Respimat) pravastatin 40 mg tablet 40 mg PO DAILY 06/04/21 12/12/22 lisinopril 10 mg tablet 15 mg PO DAILY 03/09/22 12/12/22 acetaminophen 325 mg tablet 650 mg PO QID PRN Headache 08/13/22 12/12/22 (Tylenol) albuterol sulfate 2.5 mg/3 mL 3 ml inhalation Q6H PRN Shortness 08/13/22 12/12/22 (0.083 %) solution for nebulization Of Breath Or Wheezing [id number]-hfsk-methn-choln ml PO DAILY 12/16/22 2.5 mg-50 mg-18 mg iron/15 mL oral liq (Geritol Tonic with Ferrex 18) aspirin 81 mg capsule 81 mg PO DAILY 12/16/22 cholecalciferol (vitamin D3) 25 50 mcg PO QAM 12/16/22 mcg (1,000 unit) chewable tablet (Vitamin D3) Previous Rx's Medication Instructions Recorded estradiol 0.01% (0.1 mg/gram) 1 appl vaginal MOWEFR@0900 #42.5 10/24/22 vaginal cream grams benralizumab 30 mg/mL subcutaneous 30 mg subcut Q8W #1 mL 12/07/22 syringe hydrocortisone 2.5 % topical cream 1 appl RI BID hemorrhoids #30 grams 12/16/22 with perineal applicator (Proctosol HC) linaclotide 145 mcg capsule 145 mcg PO QAM #30 caps 12/16/22 (Linzess) pantoprazole 40 mg tablet,delayed 40 mg PO DAILY 30 days #30 tabs 12/16/22 release (Protonix) Flovent HFA 110 mcg/actuation 1 puff inhalation BID #12 grams 12/19/22 aerosol inhaler (fluticasone propionate) oxybutynin chloride 10 mg 10 mg PO DAILY 30 days #30 tabs 12/21/22 tablet,extended release 24 hr <YMAIL Green - Last Filed: 12/27/22 16:01> Allergies/Adverse Reactions: Allergies Allergy/AdvReac Type Severity Reaction Status Date / Time aspirin [ASA] Allergy Intermediate RASH Verified 12/27/22 15:58 ibuprofen [Ibuprofen] Allergy Intermediate RASH Verified 12/27/22 15:58 morphine [MORPHINE] Allergy Intermediate ITCHING Verified 12/27/22 15:58 naproxen [From NAPROSYN] Allergy Intermediate RASH,N/V Verified 12/27/22 15:58 oxycodone [OXYCODONE] Allergy Intermediate NAUSEA & Verified 12/27/22 15:58 VOMITING, RASH sulfamethoxazole AdvReac Severe Abdominal Verified 12/27/22 15:58 [From Bactrim] Pain trimethoprim [From Bactrim] AdvReac Severe Abdominal Verified 12/27/22 15:58 Pain <YAMIL Green - Last Filed: 12/27/22 16:01> Review of Systems Review of Systems Pertinent positives and negatives as stated in HPI <Kaelyn Tao MD - Last Filed: 12/27/22 21:46> PMFSH Past Medical History Source: nursing notes reviewed <Kaelyn Tao MD - Last Filed: 12/27/22 21:46> Medical History: Medical History Asthma Bladder mass Emphysema lung GERD (gastroesophageal reflux disease) Hemorrhoids with complication History of COVID-19 Hyperlipidemia Hypertension Malignant neoplasm of urinary bladder Osteoarthritis UTI (urinary tract infection) <YAMIL Green - Last Filed: 12/27/22 16:01> Surgical History: Surgical History History of ERCP History of esophagogastroduodenoscopy (EGD) History of hysterectomy with bilateral oophorectomy Hx laparoscopic cholecystectomy Hx of colonoscopy (01/17/19) Hx of cystoscopy <YAMIL Green - Last Filed: 12/27/22 16:01> Family History Family History: Family History Father No problems noted. 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) Alcohol intake: never Patient Tobacco Use Status: Former Tobacco user Quit Date: 7 yrs ago Years Smoked: 55 Smoked in Last 30 Days: No Use of substances other than those prescribed or required for medical reasons: No Advance Directives: No Advance Directives Information Provided: No service: No Current occupational status: retired Current occupation: rt handed <YAMIL Green - Last Filed: 12/27/22 16:01> Physical Exam ED Vital Signs: Vital Signs - 24 hr 12/27/22 15:59 12/27/22 20:48 Temperature 98.2 F 97.5 F Pulse Rate 83 68 Respiratory Rate 18 15 Blood Pressure 109/51 L 139/79 Pulse Oximetry 98 97 Oxygen Delivery Method Room Air Room Air BMI result Body Mass Index 19.6 <YAMIL Green - Last Filed: 12/27/22 16:01> Vital Signs - 24 hr 12/27/22 15:59 12/27/22 20:48 Temperature 98.2 F 97.5 F Pulse Rate 83 68 Respiratory Rate 18 15 Blood Pressure 109/51 L 139/79 Pulse Oximetry 98 97 Oxygen Delivery Method Room Air Room Air BMI result Body Mass Index 19.6 VITAL SIGNS: Reviewed. GENERAL: Well developed, well nourished, in no acute distress. HEAD: Normocephalic/atraumatic EYES: PERRLA, EOMI EARS: Ext canals without abnormality NOSE: Nares patent bilateral OROPHARYNX: no oral lesions noted, posterior pharynx clear NECK: Supple, no adenopathy LUNGS: Normal breath sounds. No adventitious sounds or accessory muscle use. SpO2<98> CARDIOVASCULAR: Regular rate and rhythm without noted murmurs ABDOMEN: Soft, discomfort on palpation in the lower abdomen in the region of the suprapubic area, non-distended with bowel sounds. : Kelly catheter placed draining reddish brown output. MUSCULOSKELETAL: No tenderness, deformities, or effusions noted on gross inspection. EXTREMITIES: No cyanosis, clubbing or edema. SKIN: Inspection of the skin reveals no rashes NEUROLOGIC: Alert and oriented x 4. Strength and sensation to light touch were grossly intact x 4. <Kaelyn Tao MD - Last Filed: 12/27/22 21:46> Course Course Course Narrative: This is an RME: Additional HPI, ROS, PE not included below will be deferred to primary provider. This is a 77-year-old female history of bladder cancer, recurrent UTIs presenting to the emergency department with hematuria, patient noticed bright red blood in Kelly catheter when she went to Oncology today and mentioned this to them they advised her to come to the emergency department to be evaluated. Reports suprapubic discomfort. According to chart review she is followed by Urology Dr. Blair, she is taking oxybutynin for spasms. Physical examination benign. Plan labs, urine, imaging. <YAMIL Green - Last Filed: 12/27/22 16:01> Medical Decision Making Medical Decision Making [facility] Narrative: 0915: 77-year-old female who presents to the emergency room with bleeding from her catheter, she was just evaluated on 12/21 by urology and recommendation at that time was for neoadjuvant therapy and patient was started on oxybutynin for her discomfort. In addition, at that time she was noted to have moderate right hydronephrosis and mild left hydronephrosis. Patient then went to her visit with Dr. Palacios and had requested a referral to the emergency room. I reviewed all investigations and my interpretation is that patient has severe right hydro ureteral nephrosis at this time with corresponding NADEEN that is likely contributed to patient's noted hyperkalemia. Interventions will include: Lactic acid, blood cultures, antibiotics, 1 L of IV fluids, and bladder irrigation. I will contact inpatient hospitalist. 2138: I discussed case with inpatient hospitalist who accepts admission. 2143: I also reached out to on-call Urology to update current status on the patient as well as informing of admission. <Kaelyn Tao MD - Last Filed: 12/27/22 21:46> Differential Diagnosis Differential Diagnoses: The differential diagnosis associated with the presentation includes <Kaelyn Tao MD - Last Filed: 12/27/22 21:46> Please see the discussion above <Kaelyn Tao MD - Last Filed: 12/27/22 21:46> Consult Healthcare Provider Management of the patient was discussed with: Hospitalist and College Advisor <Kaelyn Tao MD - Last Filed: 12/27/22 21:46> Lab Data Please see the discussion above <Kaelyn Tao MD - Last Filed: 12/27/22 21:46> Result Diagrams: 12/27/22 16:53 12/27/22 16:53 <YAMIL Green - Last Filed: 12/27/22 16:01> Labs: Lab Results 12/27/22 12/27/22 12/27/22 Range/Units 16:51 16:53 16:53 WBC 12.6 H (4.8-10.8) X10*3/uL RBC 4.17 L (4.20-5.50) X10*6/uL Hgb 11.1 L (12.0-16.0) g/dl Hct 36.1 L (37.0-47.0) % MCV 86.6 (80.0-98.0) fL MCH 26.6 L (27.0-33.0) pg MCHC 30.7 L (31.0-35.0) g/dl RDW 15.2 (11.0-16.0) % Plt Count 533 H D (160-400) X10*3/uL MPV 9.8 (9.4-12.3) fL Immature Gran % (Auto) 0.4 (0.0-0.4) % Neut % (Auto) 73.0 (45-73) % Lymph % (Auto) 18.8 L (20-40) % [place] % (Auto) 7.6 (2-11) % Eos % (Auto) 0.0 (0-4) % Baso % (Auto) 0.2 (0-2) % Lymph # (Auto) 2.4 (1.2-4.9) X10*3/uL [place] # (Auto) 1.0 (0.1-1.2) X10*3/uL Eos # (Auto) 0.0 (0.0-0.4) X10*3/uL Baso # (Auto) 0.0 (0.0-0.2) X10*3/uL Abs Immat Gran (auto) 0.05 H (0.00-0.03) X10*3/uL Absolute Neuts (auto) 9.2 H (2.0-8.3) x10*3/uL Absolute Nucleated RBC 0.000 (0.0-0.012) X10*3/uL Nucleated RBC % (auto) 0.0 (0.0-0.2) /100WBC Sodium 138 (135-145) mmol/L Potassium 5.2 H D (3.3-5.1) mmol/L Chloride 105 (96-108) mmol/L Carbon Dioxide 26 (22-29) mmol/L Anion Gap 12 (12-20) BUN 34 H (9-16) mg/dL Creatinine 2.93 H (0.5-1.4) mg/dL Estim Creat Clear Calc 12.9 Estimated GFR 16 Random Glucose 97 (60-115) mg/dL Calcium 9.4 (8.4-10.2) mg/dL Magnesium 2.1 (1.6-2.6) mg/dL Total Bilirubin 0.8 (0.0-1.0) mg/dL AST 10 (5-31) U/L ALT < 5 (0-31) U/L Alkaline Phosphatase 85 (39-117) U/L Total Protein 6.3 L (6.5-8.0) g/dL Albumin 3.6 (3.5-5.0) g/dL Lipase 13 (8-78) U/L Urine Color Urine Appearance Urine pH (5.0-9.0) Ur Specific [place] (1.005-1.025) Urine Protein (Neg-Trace) mg/dL Urine Glucose (UA) (Negative) mg/dL Urine Ketones (Negative) mg/dL Urine Blood (Negative) Urine Nitrite (Negative) Ur Leukocyte Esterase (Negative) Urine RBC (0-2) /HPF Urine WBC (0-5) /HPF Ur Squamous Epith Cells (0-2) /HPF Urine Bacteria (None Seen) Hyaline Casts (0-2) /LPF COVID-19 (MARIELENA) Negative (Negative) COVID-19 Clin Com See Note 12/27/22 Range/Units 20:45 WBC (4.8-10.8) X10*3/uL RBC (4.20-5.50) X10*6/uL Hgb (12.0-16.0) g/dl Hct (37.0-47.0) % MCV (80.0-98.0) fL MCH (27.0-33.0) pg MCHC (31.0-35.0) g/dl RDW (11.0-16.0) % Plt Count (160-400) X10*3/uL MPV (9.4-12.3) fL Immature Gran % (Auto) (0.0-0.4) % Neut % (Auto) (45-73) % Lymph % (Auto) (20-40) % [place] % (Auto) (2-11) % Eos % (Auto) (0-4) % Baso % (Auto) (0-2) % Lymph # (Auto) (1.2-4.9) X10*3/uL [place] # (Auto) (0.1-1.2) X10*3/uL Eos # (Auto) (0.0-0.4) X10*3/uL Baso # (Auto) (0.0-0.2) X10*3/uL Abs Immat Gran (auto) (0.00-0.03) X10*3/uL Absolute Neuts (auto) (2.0-8.3) x10*3/uL Absolute Nucleated RBC (0.0-0.012) X10*3/uL Nucleated RBC % (auto) (0.0-0.2) /100WBC Sodium (135-145) mmol/L Potassium (3.3-5.1) mmol/L Chloride (96-108) mmol/L Carbon Dioxide (22-29) mmol/L Anion Gap (12-20) BUN (9-16) mg/dL Creatinine (0.5-1.4) mg/dL Estim Creat Clear Calc Estimated GFR Random Glucose (60-115) mg/dL Calcium (8.4-10.2) mg/dL Magnesium (1.6-2.6) mg/dL Total Bilirubin (0.0-1.0) mg/dL AST (5-31) U/L ALT (0-31) U/L Alkaline Phosphatase (39-117) U/L Total Protein (6.5-8.0) g/dL Albumin (3.5-5.0) g/dL Lipase (8-78) U/L Urine Color BROWN Urine Appearance Cloudy Urine pH 5.5 (5.0-9.0) Ur Specific [place] 1.025 (1.005-1.025) Urine Protein 300 (3+) H (Neg-Trace) mg/dL Urine Glucose (UA) Negative (Negative) mg/dL Urine Ketones Negative (Negative) mg/dL Urine Blood Large (3+) H (Negative) Urine Nitrite Positive H (Negative) Ur Leukocyte Esterase Large (3+) H (Negative) Urine RBC >20 H (0-2) /HPF Urine WBC >50 H (0-5) /HPF Ur Squamous Epith Cells 0-2 (0-2) /HPF Urine Bacteria 1+ (None Seen) Hyaline Casts 0-2 (0-2) /LPF COVID-19 (MARIELEAN) (Negative) COVID-19 Clin Com <YAMIL Green - Last Filed: 12/27/22 16:01> Lab Results 12/27/22 12/27/22 12/27/22 Range/Units 16:51 16:53 16:53 WBC 12.6 H (4.8-10.8) X10*3/uL RBC 4.17 L (4.20-5.50) X10*6/uL Hgb 11.1 L (12.0-16.0) g/dl Hct 36.1 L (37.0-47.0) % MCV 86.6 (80.0-98.0) fL MCH 26.6 L (27.0-33.0) pg MCHC 30.7 L (31.0-35.0) g/dl RDW 15.2 (11.0-16.0) % Plt Count 533 H D (160-400) X10*3/uL MPV 9.8 (9.4-12.3) fL Immature Gran % (Auto) 0.4 (0.0-0.4) % Neut % (Auto) 73.0 (45-73) % Lymph % (Auto) 18.8 L (20-40) % [place] % (Auto) 7.6 (2-11) % Eos % (Auto) 0.0 (0-4) % Baso % (Auto) 0.2 (0-2) % Lymph # (Auto) 2.4 (1.2-4.9) X10*3/uL [place] # (Auto) 1.0 (0.1-1.2) X10*3/uL Eos # (Auto) 0.0 (0.0-0.4) X10*3/uL Baso # (Auto) 0.0 (0.0-0.2) X10*3/uL Abs Immat Gran (auto) 0.05 H (0.00-0.03) X10*3/uL Absolute Neuts (auto) 9.2 H (2.0-8.3) x10*3/uL Absolute Nucleated RBC 0.000 (0.0-0.012) X10*3/uL Nucleated RBC % (auto) 0.0 (0.0-0.2) /100WBC Sodium 138 (135-145) mmol/L Potassium 5.2 H D (3.3-5.1) mmol/L Chloride 105 (96-108) mmol/L Carbon Dioxide 26 (22-29) mmol/L Anion Gap 12 (12-20) BUN 34 H (9-16) mg/dL Creatinine 2.93 H (0.5-1.4) mg/dL Estim Creat Clear Calc 12.9 Estimated GFR 16 Random Glucose 97 (60-115) mg/dL Calcium 9.4 (8.4-10.2) mg/dL Magnesium 2.1 (1.6-2.6) mg/dL Total Bilirubin 0.8 (0.0-1.0) mg/dL AST 10 (5-31) U/L ALT < 5 (0-31) U/L Alkaline Phosphatase 85 (39-117) U/L Total Protein 6.3 L (6.5-8.0) g/dL Albumin 3.6 (3.5-5.0) g/dL Lipase 13 (8-78) U/L Urine Color Urine Appearance Urine pH (5.0-9.0) Ur Specific [place] (1.005-1.025) Urine Protein (Neg-Trace) mg/dL Urine Glucose (UA) (Negative) mg/dL Urine Ketones (Negative) mg/dL Urine Blood (Negative) Urine Nitrite (Negative) Ur Leukocyte Esterase (Negative) Urine RBC (0-2) /HPF Urine WBC (0-5) /HPF Ur Squamous Epith Cells (0-2) /HPF Urine Bacteria (None Seen) Hyaline Casts (0-2) /LPF COVID-19 (MARIELENA) Negative (Negative) COVID-19 Clin Com See Note 12/27/22 Range/Units 20:45 WBC (4.8-10.8) X10*3/uL RBC (4.20-5.50) X10*6/uL Hgb (12.0-16.0) g/dl Hct (37.0-47.0) % MCV (80.0-98.0) fL MCH (27.0-33.0) pg MCHC (31.0-35.0) g/dl RDW (11.0-16.0) % Plt Count (160-400) X10*3/uL MPV (9.4-12.3) fL Immature Gran % (Auto) (0.0-0.4) % Neut % (Auto) (45-73) % Lymph % (Auto) (20-40) % [place] % (Auto) (2-11) % Eos % (Auto) (0-4) % Baso % (Auto) (0-2) % Lymph # (Auto) (1.2-4.9) X10*3/uL [place] # (Auto) (0.1-1.2) X10*3/uL Eos # (Auto) (0.0-0.4) X10*3/uL Baso # (Auto) (0.0-0.2) X10*3/uL Abs Immat Gran (auto) (0.00-0.03) X10*3/uL Absolute Neuts (auto) (2.0-8.3) x10*3/uL Absolute Nucleated RBC (0.0-0.012) X10*3/uL Nucleated RBC % (auto) (0.0-0.2) /100WBC Sodium (135-145) mmol/L Potassium (3.3-5.1) mmol/L Chloride (96-108) mmol/L Carbon Dioxide (22-29) mmol/L Anion Gap (12-20) BUN (9-16) mg/dL Creatinine (0.5-1.4) mg/dL Estim Creat Clear Calc Estimated GFR Random Glucose (60-115) mg/dL Calcium (8.4-10.2) mg/dL Magnesium (1.6-2.6) mg/dL Total Bilirubin (0.0-1.0) mg/dL AST (5-31) U/L ALT (0-31) U/L Alkaline Phosphatase (39-117) U/L Total Protein (6.5-8.0) g/dL Albumin (3.5-5.0) g/dL Lipase (8-78) U/L Urine Color BROWN Urine Appearance Cloudy Urine pH 5.5 (5.0-9.0) Ur Specific [place] 1.025 (1.005-1.025) Urine Protein 300 (3+) H (Neg-Trace) mg/dL Urine Glucose (UA) Negative (Negative) mg/dL Urine Ketones Negative (Negative) mg/dL Urine Blood Large (3+) H (Negative) Urine Nitrite Positive H (Negative) Ur Leukocyte Esterase Large (3+) H (Negative) Urine RBC >20 H (0-2) /HPF Urine WBC >50 H (0-5) /HPF Ur Squamous Epith Cells 0-2 (0-2) /HPF Urine Bacteria 1+ (None Seen) Hyaline Casts 0-2 (0-2) /LPF COVID-19 (MARIELENA) (Negative) COVID-19 Clin Com <Kaelyn Tao MD - Last Filed: 12/27/22 21:46> Radiology Impression Radiologist Impression: My interpretation is in agreement with radiology's impression of the imaging study. 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, NADEEN (acute kidney injury), Acute UTI, Hematuria <YAMIL Green - Last Filed: 12/27/22 16:01> Patient Disposition: Admitted As Inpatient <YAMIL Green - Last Filed: 12/27/22 16:01> Prescriptions: No Action estradiol 0.01 % (0.1 mg/gram) cream 1 appl vaginal MOWEFR@0900 Qty: 42.5 1RF Rx Instructions: pea-sized to urethra 3 times a week benralizumab 30 mg/mL syringe 30 mg subcut Q8W Qty: 1 11RF Flovent HFA 110 mcg/actuation HFA aerosol inhaler 1 puff inhalation BID Qty: 12 3RF albuterol sulfate 2.5 mg /3 mL (0.083 %) solution for nebulization 3 ml inhalation Q6H PRN (Reason: Shortness Of Breath Or Wheezing) acetaminophen [Tylenol] 325 mg Tablet 650 mg PO QID PRN (Reason: Headache) albuterol sulfate 90 mcg/actuation HFA aerosol inhaler 2 puff inhalation Q4-6H PRN (Reason: Shortness Of Breath Or Wheezing) hydroxyzine HCl 25 mg tablet 25 mg PO QID PRN (Reason: Anxiety) lisinopril 10 mg tablet 15 mg PO DAILY Combivent Respimat 20-100 mcg/actuation mist 1 puff PO QID PRN (Reason: Shortness Of Breath Or Wheezing) pravastatin 40 mg tablet 40 mg PO DAILY Geritol Tonic with Ferrex 18 2.5 mg-50 mg-18 iron/15 mL liquid PO DAILY cholecalciferol (vitamin D3) [Vitamin D3] 25 mcg (1,000 unit) tablet,chewable 50 mcg PO QAM aspirin 81 mg capsule 81 mg PO DAILY Linzess 145 mcg capsule 145 mcg PO QAM Qty: 30 6RF hydrocortisone [Proctosol HC] 2.5 % cream with perineal applicator 1 appl RI BID Qty: 30 6RF Rx Instructions: BE SURE TO INCLUDE RECTAL APPICATOR!! pantoprazole [Protonix] 40 mg tablet,delayed release (DR/EC) 40 mg PO DAILY 30 Days Qty: 30 1RF oxybutynin chloride 10 mg tablet extended release 24hr 10 mg PO DAILY 30 Days Qty: 30 1RF <YAMIL Green - Last Filed: 12/27/22 16:01>
[2022-12-27 17:01] LABS: MANUAL DIFF FLAG NO
[2022-12-27 17:06] LABS: Basophils Percent Auto 0.2 % (0-2); Hematocrit 36.1 % (37.0-47.0); Hemoglobin 11.1 g/dl (12.0-16.0); Imm Gran Abs Auto 0.05 X10*3/uL (0.00-0.03); Imm Gran Pct Auto 0.4 % (0.0-0.4); Lymphocytes Absolute Auto 2.4 X10*3/uL (1.2-4.9); Lymphocytes Percent Auto 18.8 % (20-40); Mean Corpuscular HGB Conc 30.7 g/dl (31.0-35.0); Mean Corpuscular Hemoglobin 26.6 pg (27.0-33.0); Mean Corpuscular Volume 86.6 fL (80.0-98.0); Mean Platelet Volume 9.8 fL (9.4-12.3); Monocytes Percent Auto 7.6 % (2-11); Neutrophils Absolute Auto 9.2 x10*3/uL (2.0-8.3); Platelet Count 533 X10*3/uL (160-400); Red Blood Count 4.17 X10*6/uL (4.20-5.50); Red Cell Distribution Width 15.2 % (11.0-16.0); White Blood Count 12.6 X10*3/uL (4.8-10.8)
[2022-12-27 17:26] LABS: COVID-19 Test Negative (Negative); IDNOW Serial# BCCEAD1C
[2022-12-27 17:29] LABS: Alanine Aminotransferase < 5 U/L (0-31); Albumin Level 3.6 g/dL (3.5-5.0); Alkaline Phosphatase 85 U/L (39-117); Anion Gap 12 (12-20); Aspartate Amino Transferase 10 U/L (5-31); Bilirubin Total 0.8 mg/dL (0.0-1.0); Blood Urea Nitrogen 34 mg/dL (9-16); Calcium 9.4 mg/dL (8.4-10.2); Carbon Dioxide 26 mmol/L (22-29); Chloride 105 mmol/L (96-108); Creatinine Clr Calc Pharmacy 12.9; Estimated Glomerular Filt Rate 16; Glucose Random 97 mg/dL (60-115); Lipase 13 U/L (8-78); Magnesium 2.1 mg/dL (1.6-2.6); Potassium 5.2 mmol/L (3.3-5.1); Sodium 138 mmol/L (135-145); Total Protein 6.3 g/dL (6.5-8.0)
[2022-12-27 20:48] VITALS: BP 139/79; PULSE 68; RESP 15; TEMP 36.4; O2SAT 97
[2022-12-27 20:53] LABS: Appearance Urine Cloudy; Color Urine BROWN; Glucose Urine UA Negative (Negative); Leukocyte Esterase Urine Large (3+) (Negative); Nitrite Urine Positive (Negative); PH 5.5 (5.0-9.0); Specific Gravity - Urine 1.025 (1.005-1.025); UMIC TRIGGER UACC YES; Urine Blood Large (3+) (Negative); Urine Ketones Negative (Negative); Urine Protein 300 (3+) mg/dL (Neg-Trace)
[2022-12-27 21:08] LABS: Bacteria Urine 1+ (None Seen); Hyaline Casts Urine 0-2 /LPF (0-2); RBC Urine >20 /HPF (0-2); Squamous Epithelial Cell Urine 0-2 /HPF (0-2); UACC Culture Trigger YES; WBC Urine >50 /HPF (0-5)
--- NOTE | 2022-12-27 21:11 | PC.NURSE ---
pt came in with catheter blocked with a alejandra. this RN removed alejandra and attached catheter bag. Immediate output was about 100mls of brown red urine with a few small clots Pt reports feeling no distention, denies pain at this time
[2022-12-27] MEDS: 0.9 % Sodium Chloride 1,000 ML 999 ML IV (21:41)
[2022-12-27 21:53] LABS: Lactic Acid 1.2 mmol/L (0.5-2.0)
--- NOTE | 2022-12-27 21:56 | P.HPHOSP_ITS ---
History of Present Illness Date of Service: 12/27/22 Chief Complaint: blood in lazo bag 77-year-old female with past medical history of bladder cancer, permanent Lazo catheterization, HLD, HTN, presents to the hospital sent from oncologist. Patient reports that her oncologist sent her to the hospital for blood in the Lazo catheter. She states that she noticed blood initially 3 weeks ago, that has now worsened. She is also complaining of pelvic pain for the past several days, reports feeling feverish, having chills, denies having any chest pain, no nausea or vomiting, no diarrhea constipation, no lower extremity edema no weakness. She also reports that she had bilateral flank pain the day prior that has now resolved On arrival patient hemodynamically stable with no significant abnormal vitals Labs are significant for WBC count of 12.6, hemoglobin of 11.1 which is around her baseline, hematocrit 36.1 which cluster baseline, platelets of 533, potassium 5.2, creatinine of 2.93 with a baseline of 0.81, urine positive for leukocyte Estrace, nitrites, WBC, and bacteria Patient started on IV antibiotics, fluids and will be admitted for further management Review of Systems Review of Systems: Yes all other systems are reviewed and are negative [facility] Medical History Asthma Bladder mass Emphysema lung GERD (gastroesophageal reflux disease) Hemorrhoids with complication History of COVID-19 Hyperlipidemia Hypertension Malignant neoplasm of urinary bladder Osteoarthritis UTI (urinary tract infection) Family History Father No problems noted. Mother Diabetes Brother Lung cancer Daughter Diabetes Surgical History History of ERCP History of esophagogastroduodenoscopy (EGD) History of hysterectomy with bilateral oophorectomy Hx laparoscopic cholecystectomy Hx of colonoscopy (01/17/19) Hx of cystoscopy Social History Household Members: Spouse Housing: Apartment Do you presently have visiting nurse or other home services: Yes ([employer]) Alcohol intake: never Patient Tobacco Use Status: Former Tobacco user Quit Date: 7 yrs ago Years Smoked: 55 Smoked in Last 30 Days: No Use of substances other than those prescribed or required for medical reasons: No Advance Directives: No Advance Directives Information Provided: No Nutrition Risks: No Nutritional Risk service: No Current occupational status: retired Current occupation: rt handed Meds Allergies Allergy/AdvReac Type Severity Reaction Status Date / Time aspirin [ASA] Allergy Intermediate RASH Verified 12/27/22 15:58 ibuprofen [Ibuprofen] Allergy Intermediate RASH Verified 12/27/22 15:58 morphine [MORPHINE] Allergy Intermediate ITCHING Verified 12/27/22 15:58 naproxen [From NAPROSYN] Allergy Intermediate RASH,N/V Verified 12/27/22 15:58 oxycodone [OXYCODONE] Allergy Intermediate NAUSEA & Verified 12/27/22 15:58 VOMITING, RASH sulfamethoxazole AdvReac Severe Abdominal Verified 12/27/22 15:58 [From Bactrim] Pain trimethoprim [From Bactrim] AdvReac Severe Abdominal Verified 12/27/22 15:58 Pain Active Medications: Current Medications Sodium Chloride (Ns) 1,000 mls @ 999 mls/hr IV .Q1H1M HERNESTO Stop: 12/27/22 22:15 Last Admin: 12/27/22 21:41 Dose: 999 mls/hr Ceftriaxone Sodium 1 gm/ (Sodium Chloride) 50 mls @ 100 mls/hr IV ONCE ONE Stop: 12/27/22 22:03 Home Medications Medication Instructions Recorded Confirmed Last Taken Type lisinopril 10 mg tablet 15 mg PO DAILY 03/09/22 12/28/22 08/12/22 History A2-A3-S7-F2-V4-kuvg-methn-choln 15 ml PO DAILY 12/16/22 12/28/22 Unknown History 2.5 mg-50 mg-18 mg iron/15 mL oral liq (Geritol Tonic with Ferrex 18) aspirin 81 mg capsule 81 mg PO DAILY 12/16/22 12/28/22 Unknown History cholecalciferol (vitamin D3) 25 50 mcg PO QAM 12/16/22 12/28/22 Unknown History mcg (1,000 unit) chewable tablet (Vitamin D3) gabapentin 100 mg capsule 100 mg PO 12/27/22 Unknown History Physical Exam Vital Signs and Narrative: Vital Signs: Last Vital Signs Temp 97.5 F 12/27/22 20:48 Pulse 68 12/27/22 20:48 Resp 15 12/27/22 20:48 BP 139/79 04/18/23 20:48 Pulse Ox 97 12/27/22 20:48 O2 Del Method Room Air 12/27/22 20:48 BMI result Body Mass Index 19.6 Const: Other: Appears cachectic General: cooperative and no acute distress Orientation/consciousness: patient oriented x3 Eyes: General: appearance normal, both eyes and all related structures Pupils: Equal, round and reactive pupils present Resp: Effort & Inspection: normal respiratory effort Auscultation: clear to auscultation bilaterally Cardio: Rate: regular rate Rhythm: regular rhythm GI: Palpation (GI): Soft to palpation Auscultation: normal bowel sounds : Other: Suprapubic tenderness Lazo catheter in place, draining quality bloody urine Skin: General skin exam: no rashes or lesions noted Neuro: General: patient oriented x3 Cranial nerves: Yes Equal, round and reactive pupils present Cognition (Neuro): normal cognition Extrem: General: Yes normal to inspection and Yes no pedal edema Results Labs 12/27/22 16:53 12/27/22 16:53 Labs: Laboratory Results - last 24 hr 12/27/22 12/27/22 12/27/22 16:51 16:53 16:53 MCV 86.6 MCH 26.6 L MCHC 30.7 L RDW 15.2 Plt Count 533 H D MPV 9.8 Immature Gran % (Auto) 0.4 Neut % (Auto) 73.0 Lymph % (Auto) 18.8 L [place]rie % (Auto) 7.6 Eos % (Auto) 0.0 Baso % (Auto) 0.2 Lymph # (Auto) 2.4 Guthrie # (Auto) 1.0 Eos # (Auto) 0.0 Baso # (Auto) 0.0 Abs Immat Gran (auto) 0.05 H Absolute Neuts (auto) 9.2 H Absolute Nucleated RBC 0.000 Nucleated RBC % (auto) 0.0 Anion Gap 12 Estim Creat Clear Calc 12.9 Estimated GFR 16 Random Glucose 97 Lactic Acid Calcium 9.4 Magnesium 2.1 Total Bilirubin 0.8 AST 10 ALT < 5 Alkaline Phosphatase 85 Total Protein 6.3 L Albumin 3.6 Lipase 13 Urine Color Urine Appearance Urine pH Ur Specific [place] Urine Protein Urine Glucose (UA) Urine Ketones Urine Blood Urine Nitrite Ur Leukocyte Esterase Urine RBC Urine WBC Ur Squamous Epith Cells Urine Bacteria Hyaline Casts COVID-19 (MARIELENA) Negative COVID-19 Clin Com See Note 12/27/22 12/27/22 20:45 21:35 MCV MCH MCHC RDW Plt Count MPV Immature Gran % (Auto) Neut % (Auto) Lymph % (Auto) Guthrie % (Auto) Eos % (Auto) Baso % (Auto) Lymph # (Auto) Guthrie # (Auto) Eos # (Auto) Baso # (Auto) Abs Immat Gran (auto) Absolute Neuts (auto) Absolute Nucleated RBC Nucleated RBC % (auto) Anion Gap Estim Creat Clear Calc Estimated GFR Random Glucose Lactic Acid 1.2 Calcium Magnesium Total Bilirubin AST ALT Alkaline Phosphatase Total Protein Albumin Lipase Urine Color BROWN Urine Appearance Cloudy Urine pH 5.5 Ur Specific [place] 1.025 Urine Protein 300 (3+) H Urine Glucose (UA) Negative Urine Ketones Negative Urine Blood Large (3+) H Urine Nitrite Positive H Ur Leukocyte Esterase Large (3+) H Urine RBC >20 H Urine WBC >50 H Ur Squamous Epith Cells 0-2 Urine Bacteria 1+ Hyaline Casts 0-2 COVID-19 (MARIELENA) COVID-19 Clin Com Imaging Radiologist's Impressions: Impressions Abdomen/Pelvis CT 12/27/22 17:32 IMPRESSION: Severe right hydroureteronephrosis. The extent of hydronephrosis has increased from the prior MRI. No obstructing calculus. There is wall thickening at the bladder base. This is consistent with the known history of bladder neoplasm. Fleischner guidelines were followed. 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: Status: Acute (2) ANDEEN (acute kidney injury): Status: Acute (3) Acute UTI: Status: Acute (4) Hematuria: Status: Acute Plan 77-year-old female with history of bladder cancer presents to the hospital complaints of hematuria, suprapubic pain found to have acute UTI # acute UTI - positive UA, symptomatic with suprapubic pain - grew Klebsiella in the past - will treat with IV antibiotics - follow cultures # NADEEN - likely postobstructive in the setting of bladder cancer - has evidence of severe hydroureteronephrosis on CT of the abdomen with no evidence of obstructing stone - will treat with IV fluid - nephrology consulted # hematuria - in the setting of bladder cancer - urology consulted - continue IV fluids - follow CBC # hydronephrosis due to obstructive malignant bladder cancer - severe - acute - urology consulted - continue IV fluids # hypertension - stable - continue home antihypertensives DVT prophylaxis: SCDs in the setting of hematuria Given patient's need for further evaluation for severe hydroureteronephrosis, NADEEN, treatment for UTI patient will require a minimum 2 nights inpatient hospital stay for further management and monitoring Time Spent With Patient Time: Total time managing care of this patient today ____ minutes. Quality Stroke Does the patient have a stroke diagnosis?: No VTE Prior VTE?: No VTE Risk Level:: Medical - moderate - high VTE Device Contraindication: Treatment Not Indicated VTE Drug Contraindication: N/A - Med Ordered
[2022-12-27] MEDS: Heparin Sodium,Porcine 5,000 UNIT/ML VIAL 5000 UNIT SUBCUT (22:07)
[2022-12-27] MEDS: Sodium Zirconium Cyclosilicate 10 GM POWD.PACK PO (22:07)
[2022-12-27] MEDS: cefTRIAXone sodium 1 GM in 0.9 % Sodium Chloride 50 ML IV (22:08)
[2022-12-27 22:33] VITALS: BP 113/52; PULSE 80; RESP 16; TEMP 36.8; O2SAT 97
[2022-12-27] MEDS: Lactated Ringers 1,000 ML 100 ML IVCONT (22:46)
--- NOTE | 2022-12-27 23:35 | PC.NURSE ---
Late entry: this RN irrigated pts catheter, pt is no longer putting out red tinged urine, urine is clear with no clots or sediment. 20g IV placed in LAC
--- NOTE | 2022-12-28 01:57 | PC.NURSE ---
pt sleeping at this time, respirations even and unlabored, no apparent distress. continue plan of care to admit for further observation
--- NOTE | 2022-12-28 04:41 | PC.NURSE ---
pt is sleeping no sign of distress, Kelly is draining well at this time, will continue to monitor.
[2022-12-28 05:56] LABS: MANUAL DIFF FLAG NO
[2022-12-28 06:29] LABS: Basophils Percent Auto 0.3 % (0-2); Hematocrit 31.4 % (37.0-47.0); Hemoglobin 9.6 g/dl (12.0-16.0); Imm Gran Abs Auto 0.03 X10*3/uL (0.00-0.03); Imm Gran Pct Auto 0.4 % (0.0-0.4); Lymphocytes Absolute Auto 2.1 X10*3/uL (1.2-4.9); Lymphocytes Percent Auto 26.8 % (20-40); Mean Corpuscular HGB Conc 30.6 g/dl (31.0-35.0); Mean Corpuscular Hemoglobin 27.1 pg (27.0-33.0); Mean Corpuscular Volume 88.7 fL (80.0-98.0); Mean Platelet Volume 10.7 fL (9.4-12.3); Monocytes Absolute Auto 0.8 X10*3/uL (0.1-1.2); Neutrophils Percent Auto 62.5 % (45-73); Platelet Count 453 X10*3/uL (160-400); Red Blood Count 3.54 X10*6/uL (4.20-5.50); Red Cell Distribution Width 15.3 % (11.0-16.0)
[2022-12-28 06:36] LABS: Anion Gap 13 (12-20); Blood Urea Nitrogen 30 mg/dL (9-16); Calcium 8.5 mg/dL (8.4-10.2); Carbon Dioxide 24 mmol/L (22-29); Chloride 108 mmol/L (96-108); Creatinine Clr Calc Pharmacy 14.8; Estimated Glomerular Filt Rate 18; Glucose Random 71 mg/dL (60-115); Potassium 4.8 mmol/L (3.3-5.1); Sodium 140 mmol/L (135-145)
[2022-12-28 07:23] VITALS: BP 134/61; PULSE 78; RESP 18; TEMP 36.6; O2SAT 94
--- NOTE | 2022-12-28 07:37 | PHA.MEDREC ---
Pharmacy Consult ? Medication Reconciliation Pharmacy has completed the medication reconciliation. Completed by RN verified by pharmacy Goyo
[2022-12-28] MEDS: Lactated Ringers 1,000 ML 100 ML IVCONT ×2 (07:57→17:42)
[2022-12-28 09:58] VITALS: BP 118/66; PULSE 75; RESP 20; TEMP 36.8; O2SAT 95
--- NOTE | 2022-12-28 10:02 | PM.CNNEP ---
History of Present Illness Reason for Consult Consult date: 12/28/22 Reason for consult: NADEEN Chief Complaint Chief complaint: NADEEN History of Present Illness Narrative: 77-year-old female with past medical history of bladder cancer, permanent Kelly catheterization,? HLD, HTN, presents to the hospital sent from oncologist.? Patient reports that her oncologist sent her to the hospital for blood in the Kelly catheter.? She states that she noticed blood initially 3 weeks ago, that has now worsened.? She is also complaining of pelvic pain for the past several days, reports feeling feverish, having chills, denies having any chest pain, no nausea or vomiting, no diarrhea constipation, no lower extremity edema no weakness.? She also reports that she had bilateral flank pain the day prior that has now resolved she has had acute kidney in the past. Baseline. During this admission she was found to have worsening hydronephrosis on the right side Review of Systems Constitutional: Denies anorexia, Denies fatigue and Denies fever(s) Eyes: Denies loss of vision Denies dizziness, Denies epistaxis and Denies neck pain Cardiovascular: Denies chest pain, Denies edema, Denies leg edema and Denies dyspnea Respiratory: Denies chest congestion, Denies pain with cough and Denies dyspnea Gastrointestinal: Denies change in stool character, Denies coffee ground emesis, Denies constipation and Denies diarrhea Genitourinary: Reports hematuria Musculoskeletal: Denies arthralgias, Denies joint swelling and Denies neck pain Denies confusion, Denies dizziness, Denies loss of vision, Denies memory loss and Denies Sensory deficit (Neuro) Psychiatric: Denies confusion and Denies memory loss Endocrine: Denies fatigue and Denies flushing PMFSH Past Medical History Medical History Asthma Bladder mass Emphysema lung GERD (gastroesophageal reflux disease) Hemorrhoids with complication History of COVID-19 Hyperlipidemia Hypertension Malignant neoplasm of urinary bladder Osteoarthritis UTI (urinary tract infection) Family History Family History Father No problems noted. Mother Diabetes Brother Lung cancer Daughter Diabetes Surgical History Surgical History History of ERCP History of esophagogastroduodenoscopy (EGD) History of hysterectomy with bilateral oophorectomy Hx laparoscopic cholecystectomy Hx of colonoscopy (01/17/19) Hx of cystoscopy Social History Social History Household Members: Family Housing: Apartment Do you presently have visiting nurse or other home services: Yes Alcohol intake: never Patient Tobacco Use Status: Former Tobacco user Quit Date: 7 yrs ago Years Smoked: 55 service: No Current occupational status: retired Current occupation: rt handed Meds Allergies Allergy/AdvReac Type Severity Reaction Status Date / Time aspirin [ASA] Allergy Intermediate RASH Verified 12/27/22 15:58 ibuprofen [Ibuprofen] Allergy Intermediate RASH Verified 12/27/22 15:58 morphine [MORPHINE] Allergy Intermediate ITCHING Verified 12/27/22 15:58 naproxen [From NAPROSYN] Allergy Intermediate RASH,N/V Verified 12/27/22 15:58 oxycodone [OXYCODONE] Allergy Intermediate NAUSEA & Verified 12/27/22 15:58 VOMITING, RASH sulfamethoxazole AdvReac Severe Abdominal Verified 12/27/22 15:58 [From Bactrim] Pain trimethoprim [From Bactrim] AdvReac Severe Abdominal Verified 12/27/22 15:58 Pain Active Medications: Current Medications Acetaminophen (Acetaminophen 325 Mg Tablet) 650 mg PO Q6H PRN PRN Reason: Pain, Mild (Pain Scale 1-3) Aspirin (Aspirin 81 Mg Tab.Chew) 81 mg PO DAILY [facility] Fluticasone Propionate (Fluticasone Propionate 100 Mcg Blst.W.Dev) 1 puff INHALE RBID [facility] Last Admin: 12/28/22 08:04 Dose: Not Given Hydrocortisone (Hydrocortisone 2.5 % Rectal Cr 30 Gm Tube) [address] BID [facility] Lactated Ringer's (Lr) 1,000 mls @ 100 mls/hr IVCONT .Q10H [facility] Last Admin: 12/28/22 07:57 Dose: 100 mls/hr Ceftriaxone Sodium 1 gm/ (Sodium Chloride) 50 mls @ 100 mls/hr IV Q24H [facility] Lisinopril (Lisinopril 5 Mg Tablet) 15 mg PO DAILY HERNESTO; Protocol Multivitamins/Vitamin C (Multivitamin Tablet) 1 tab PO DAILY [facility] Non-Formulary Medication (Linaclotide [Linzess]) 145 mcg PO DAILY [facility] Omeprazole (Omeprazole 20 Mg/10 Ml Susp.Recon) 20 mg PO DAILY@0630 [facility] Ondansetron HCl (Ondansetron Hcl 4 Mg/2 Ml Vial) 4 mg IVPUSH Q8H PRN PRN Reason: Nausea and Vomiting Oxybutynin Chloride (Oxybutynin Chloride Er 5 Mg Tab.Er.24) 10 mg PO DAILY [facility] Pharmacy Consult (Consult Rx Perform Med Rec) 1 each MISCELLANE ONCE PRN PRN Reason: Consult order Sodium Chloride (0.9 % Sodium Chloride Flush 3 Ml Syringe) 3 ml IVFLUSH QSHIFT [facility] Last Admin: 12/28/22 07:59 Dose: Not Given Vitamin D (Cholecalciferol (Vitamin D3) 25 Mcg Tablet) 50 mcg PO DAILY [facility] Home Medications Medication Instructions Recorded Confirmed Last Taken Type lisinopril 10 mg tablet 15 mg PO DAILY 03/09/22 12/28/22 08/12/22 History G9-Y1-[id number]-Y9-L8-eiqb-methn-choln 15 ml PO DAILY 12/16/22 12/28/22 Unknown History 2.5 mg-50 mg-18 mg iron/15 mL oral liq (Geritol Tonic with Ferrex 18) aspirin 81 mg capsule 81 mg PO DAILY 12/16/22 12/28/22 Unknown History cholecalciferol (vitamin D3) 25 50 mcg PO QAM 12/16/22 12/28/22 Unknown History mcg (1,000 unit) chewable tablet (Vitamin D3) gabapentin 100 mg capsule 200 mg PO TID 12/28/22 12/28/22 Unknown History ipratropium 20 mcg-albuterol 100 1 puff inhalation QID 12/28/22 12/28/22 Unknown History mcg/actuation mist for inhalation (Combivent Respimat) pravastatin 40 mg tablet 40 mg PO DAILY 12/28/22 12/28/22 Unknown History Physical Exam Vital Signs: Last Vital Signs Temp 98.2 F 12/28/22 09:58 Pulse 75 12/28/22 09:58 Resp 20 12/28/22 09:58 BP 118/66 12/28/22 09:58 Pulse Ox 95 12/28/22 09:58 O2 Del Method Room Air 12/28/22 09:58 BMI result Body Mass Index 19.6 ? General: cooperative and no acute distress? Orientation/consciousness: patient oriented x3 Appears cachectic Eyes:?? General: appearance normal, both eyes and all related structures? Pupils: Equal, round and reactive pupils present Resp:?? Effort & Inspection: normal respiratory effort? Auscultation: clear to auscultation bilaterally Cardio:?? Rate: regular rate? Rhythm: regular rhythm GI:?? Palpation (GI): Soft to palpation? Auscultation: normal bowel sounds :?? Other: Suprapubic tenderness Kelly catheter in place, draining quality bloody urine Skin:?? General skin exam: no rashes or lesions noted Neuro:?? General: patient oriented x3? Cranial nerves: Yes Equal, round and reactive pupils present? Cognition (Neuro): normal cognition Extrem:?? General: Yes normal to inspection and Yes no pedal edema Const General: No confusion Orientation/consciousness: No confusion Neuro General: No confusion Sensory Exam: No Sensory deficit (Neuro) Results Lab Results 12/28/22 05:22 12/28/22 05:22 Lab results: Chemistry 12/27/22 12/28/22 16:53 05:22 Sodium 138 140 Potassium 5.2 H D 4.8 Carbon Dioxide 26 24 BUN 34 H 30 H Creatinine 2.93 H 2.56 H Calcium 9.4 8.5 D Hematology 12/27/22 12/28/22 16:53 05:22 WBC 12.6 H 8.0 Hgb 11.1 L 9.6 L Plt Count 533 H D 453 H Urinalysis 12/27/22 20:45 Urine Color BROWN Urine Appearance Cloudy Urine pH 5.5 Ur Specific [place] 1.025 Urine Protein 300 (3+) H Urine Glucose (UA) Negative Urine Ketones Negative Urine Blood Large (3+) H Urine Nitrite Positive H Ur Leukocyte Esterase Large (3+) H Urine RBC >20 H Urine WBC >50 H Ur Squamous Epith Cells 0-2 Hyaline Casts 0-2 Assessment and Plan (1) NADEEN (acute kidney injury): Status: Acute (2) 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: Status: Acute Plan 77-year-old woman with acute kidney injury in the setting of bladder tumor. She is a Kelly catheter. CT scan shows worsening Right hydro Obstructive uropathy seems aurelia the main issues There could be acomponenet of hypoperfusion Suggest IV hydration intervention for hydro No indication for dialysis Keep on Low K diet Continue to avoid nephrotoxins Time Spent With Patient Time: Total time managing care of this patient today ____ minutes. Procedures Date of Service Date of Service: 12/28/22
[2022-12-28] MEDS: lisinopriL 5 MG TABLET 15 MG PO (10:50)
[2022-12-28] MEDS: Cholecalciferol (Vitamin D3) 25 MCG TABLET 50 MCG PO (10:50)
[2022-12-28] MEDS: Multivitamin TABLET 1 TAB PO (10:51)
--- NOTE | 2022-12-28 11:12 | P.PNIM_ITS ---
Subjective Subjective Date of Service: 12/28/22 Interval History: Seen and evaluated this morning complaining of RLQ pain , no fever or chills no other overnight events Review of Systems Review of Systems: Yes all other systems are reviewed and are negative Physical Exam Vital Signs: Vital Signs: Last Vital Signs Temp 98.2 F 12/28/22 09:58 Pulse 75 12/28/22 09:58 Resp 20 12/28/22 09:58 BP 118/66 12/28/22 09:58 Pulse Ox 95 12/28/22 09:58 O2 Del Method Room Air 12/28/22 09:58 BMI result Body Mass Index 19.6 Const: Other: Constitutional : Awake, interactive, not in distress Neck : Normal inspection, Supple Cardiovascular : RRR, no JVP, no lower extremity edema Respiratory : good bilateral air entry, no crackles, wheezes or rhonchi Gastrointestinal: soft, lax, Normal bowel sounds, RLQ tenderness with palpation Skin : Warm, Dry Neurological : Alert & oriented x3, No focal deficit Objective Data Active Medications Acetaminophen (Acetaminophen 325 Mg Tablet) 650 mg PO Q6H PRN PRN Reason: Pain, Mild (Pain Scale 1-3) Aspirin (Aspirin 81 Mg Tab.Chew) 81 mg PO DAILY [facility] Fluticasone Propionate (Fluticasone Propionate 100 Mcg Blst.W.Dev) 1 puff INHALE RBID [facility] Last Admin: 12/28/22 08:04 Dose: Not Given Documented By: YELENA Non-Admin Reason: Med Not Available Hydrocortisone (Hydrocortisone 2.5 % Rectal Cr 30 Gm Tube) 1 appl MD BID [facility] Last Admin: 12/28/22 10:20 Dose: Not Given Documented By: MIRTHA Non-Admin Reason: Patient Refused Lactated Ringer's (Lr) 1,000 mls @ 100 mls/hr IVCONT .Q10H [facility] Last Admin: 12/28/22 07:57 Dose: 100 mls/hr Documented By: GEGE Ceftriaxone Sodium 1 gm/ (Sodium Chloride) 50 mls @ 100 mls/hr IV Q24H [facility] Lisinopril (Lisinopril 5 Mg Tablet) 15 mg PO DAILY [facility]; Protocol Last Admin: 12/28/22 10:50 Dose: 15 mg Documented By: MIRTHA Multivitamins/Vitamin C (Multivitamin Tablet) 1 tab PO DAILY [facility] Last Admin: 12/28/22 10:51 Dose: 1 tab Documented By: MIRTHA Non-Formulary Medication (Linaclotide [Linzess]) 145 mcg PO DAILY [facility] Omeprazole (Omeprazole 20 Mg/10 Ml Susp.Recon) 20 mg PO DAILY@0630 [facility] Ondansetron HCl (Ondansetron Hcl 4 Mg/2 Ml Vial) 4 mg IVPUSH Q8H PRN PRN Reason: Nausea and Vomiting Oxybutynin Chloride (Oxybutynin Chloride Er 5 Mg Tab.Er.24) 10 mg PO DAILY [facility] Last Admin: 12/28/22 10:20 Dose: Not Given Documented By: MIRTHA Non-Admin Reason: See Note Pharmacy Consult (Consult Rx Perform Med Rec) 1 each MISCELLANE ONCE PRN PRN Reason: Consult order Sodium Chloride (0.9 % Sodium Chloride Flush 3 Ml Syringe) 3 ml IVFLUSH QSHIFT [facility] Last Admin: 12/28/22 07:59 Dose: Not Given Documented By: GEGE Non-Admin Reason: IV Running Vitamin D (Cholecalciferol (Vitamin D3) 25 Mcg Tablet) 50 mcg PO DAILY [facility] Last Admin: 12/28/22 10:50 Dose: 50 mcg Documented By: MIRTHA Labs 12/28/22 05:22 12/28/22 05:22 Labs: Laboratory Results - last 24 hr 12/27/22 12/27/22 12/27/22 16:51 16:53 16:53 MCV 86.6 MCH 26.6 L MCHC 30.7 L RDW 15.2 Plt Count 533 H D MPV 9.8 Immature Gran % (Auto) 0.4 Neut % (Auto) 73.0 Lymph % (Auto) 18.8 L [place] % (Auto) 7.6 Eos % (Auto) 0.0 Baso % (Auto) 0.2 Lymph # (Auto) 2.4 [place] # (Auto) 1.0 Eos # (Auto) 0.0 Baso # (Auto) 0.0 Abs Immat Gran (auto) 0.05 H Absolute Neuts (auto) 9.2 H Absolute Nucleated RBC 0.000 Nucleated RBC % (auto) 0.0 Anion Gap 12 Estim Creat Clear Calc 12.9 Estimated GFR 16 Random Glucose 97 Lactic Acid Calcium 9.4 Magnesium 2.1 Total Bilirubin 0.8 AST 10 ALT < 5 Alkaline Phosphatase 85 Total Protein 6.3 L Albumin 3.6 Lipase 13 Urine Color Urine Appearance Urine pH Ur Specific [place] Urine Protein Urine Glucose (UA) Urine Ketones Urine Blood Urine Nitrite Ur Leukocyte Esterase Urine RBC Urine WBC Ur Squamous Epith Cells Urine Bacteria Hyaline Casts COVID-19 (MARIELENA) Negative COVID-19 Clin Com See Note 12/27/22 12/27/22 12/28/22 20:45 21:35 05:22 MCV 88.7 MCH 27.1 MCHC 30.6 L RDW 15.3 Plt Count 453 H MPV 10.7 Immature Gran % (Auto) 0.4 Neut % (Auto) 62.5 Lymph % (Auto) 26.8 [place] % (Auto) 10.0 Eos % (Auto) 0.0 Baso % (Auto) 0.3 Lymph # (Auto) 2.1 [place] # (Auto) 0.8 Eos # (Auto) 0.0 Baso # (Auto) 0.0 Abs Immat Gran (auto) 0.03 Absolute Neuts (auto) 5.0 Absolute Nucleated RBC 0.000 Nucleated RBC % (auto) 0.0 Anion Gap Estim Creat Clear Calc Estimated GFR Random Glucose Lactic Acid 1.2 Calcium Magnesium Total Bilirubin AST ALT Alkaline Phosphatase Total Protein Albumin Lipase Urine Color BROWN Urine Appearance Cloudy Urine pH 5.5 Ur Specific [place] 1.025 Urine Protein 300 (3+) H Urine Glucose (UA) Negative Urine Ketones Negative Urine Blood Large (3+) H Urine Nitrite Positive H Ur Leukocyte Esterase Large (3+) H Urine RBC >20 H Urine WBC >50 H Ur Squamous Epith Cells 0-2 Urine Bacteria 1+ Hyaline Casts 0-2 COVID-19 (MARIELENA) COVID-19 Clin Com 12/28/22 05:22 MCV MCH MCHC RDW Plt Count MPV Immature Gran % (Auto) Neut % (Auto) Lymph % (Auto) [place] % (Auto) Eos % (Auto) Baso % (Auto) Lymph # (Auto) [place] # (Auto) Eos # (Auto) Baso # (Auto) Abs Immat Gran (auto) Absolute Neuts (auto) Absolute Nucleated RBC Nucleated RBC % (auto) Anion Gap 13 Estim Creat Clear Calc 14.8 Estimated GFR 18 Random Glucose 71 Lactic Acid Calcium 8.5 D Magnesium Total Bilirubin AST ALT Alkaline Phosphatase Total Protein Albumin Lipase Urine Color Urine Appearance Urine pH Ur Specific [place] Urine Protein Urine Glucose (UA) Urine Ketones Urine Blood Urine Nitrite Ur Leukocyte Esterase Urine RBC Urine WBC Ur Squamous Epith Cells Urine Bacteria Hyaline Casts COVID-19 (MARIELENA) COVID-19 Clin Com Microbiology Microbiology Results: Microbiology 12/27/22 21:09 Urine Culture - Preliminary Urine clean catch - Urine jenkins top No growth to date. 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: Status: Acute (2) NADEEN (acute kidney injury): Status: Acute (3) Acute UTI: Status: Acute (4) Hematuria: Status: Acute Plan 77-year-old female with history of bladder cancer presents to the hospital complaints of hematuria, suprapubic pain found to have acute UTI # acute UTI symptomatic with suprapubic pain IV antibiotics follow cultures # NADEEN postobstructive in the setting of bladder cancer severe hydroureteronephrosis on CT of the abdomen with no evidence of obstructing stone IV fluid, avoid nephrotoxic nephrology input appreciated # hematuria in the setting of bladder cancer urology consulted follow CBC # 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 Quality Stroke Does the patient have a stroke diagnosis?: No VTE Prior VTE?: No VTE Risk Level:: Medical - moderate - high VTE Device Contraindication: Treatment Not Indicated VTE Drug Contraindication: N/A - Med Ordered
[2022-12-28] MEDS: Gabapentin 100 MG CAPSULE 200 MG PO ×2 (14:09→20:18)
--- NOTE | 2022-12-28 14:36 | PM.UROCN ---
History of Present Illness Consult details Consult date: 12/28/22 Narrative: Consulting complaint progressive right hydroureteronephrosis in setting of acute kidney insult 77-year-old female Recent diagnosis of invasive bladder cancer Cancer involves right ureteric orifice Has progressive right hydroureteronephrosis with elevating creatinine despite Kelly catheter Recommend right PCN tube with attempt at right nephroureteral stent Discussed with patient Review of Systems Constitutional: Constitutional: Reports as per HPI and Reports no additional constitutional complaints Cardiovascular: Cardiovascular: Reports as per HPI and Reports no additional cardiovascular complaints Respiratory: Respiratory: Reports as per HPI and Reports no additional respiratory complaints Gastrointestinal: Gastrointestinal: Reports as per HPI and Reports no additional gastrointestinal complaints Genitourinary: Genitourinary: Reports as per HPI Musculoskeletal: Musculoskeletal: Reports no additional musculoskeletal complaints and Reports as per HPI Neurologic: Reports system reviewed and no additional complaints, except as documented and Reports as per HPI PMFSH Past Medical History Medical History Asthma Bladder mass Emphysema lung GERD (gastroesophageal reflux disease) Hemorrhoids with complication History of COVID-19 Hyperlipidemia Hypertension Malignant neoplasm of urinary bladder Osteoarthritis UTI (urinary tract infection) Family History Family History Father No problems noted. Mother Diabetes Brother Lung cancer Daughter Diabetes Surgical History Surgical History History of ERCP History of esophagogastroduodenoscopy (EGD) History of hysterectomy with bilateral oophorectomy Hx laparoscopic cholecystectomy Hx of colonoscopy (01/17/19) Hx of cystoscopy Social History Social History Household Members: Family Housing: Apartment Do you presently have visiting nurse or other home services: Yes Alcohol intake: never Patient Tobacco Use Status: Former Tobacco user Quit Date: 7 yrs ago Years Smoked: 56 service: No Current occupational status: retired Current occupation: rt handed Meds Allergies Allergy/AdvReac Type Severity Reaction Status Date / Time aspirin [ASA] Allergy Intermediate RASH Verified 12/27/22 15:58 ibuprofen [Ibuprofen] Allergy Intermediate RASH Verified 12/27/22 15:58 morphine [MORPHINE] Allergy Intermediate ITCHING Verified 12/27/22 15:58 naproxen [From NAPROSYN] Allergy Intermediate RASH,N/V Verified 12/27/22 15:58 oxycodone [OXYCODONE] Allergy Intermediate NAUSEA & Verified 12/27/22 15:58 VOMITING, RASH sulfamethoxazole AdvReac Severe Abdominal Verified 12/27/22 15:58 [From Bactrim] Pain trimethoprim [From Bactrim] AdvReac Severe Abdominal Verified 12/27/22 15:58 Pain Active Medications: Current Medications Acetaminophen (Acetaminophen 325 Mg Tablet) 650 mg PO Q6H PRN PRN Reason: Pain, Mild (Pain Scale 1-3) Albuterol/Ipratropium (Albuterol/Iprat 2.5/0.5mg 3 Ml Ampul.Neb) 3 ml INHALE RQ6H WHILE AWAKE [facility] Aspirin (Aspirin 81 Mg Tab.Chew) 81 mg PO DAILY [facility] Fluticasone Propionate (Fluticasone Propionate 100 Mcg Blst.W.Dev) 1 puff INHALE RBID [facility] Last Admin: 12/28/22 08:04 Dose: Not Given Gabapentin (Gabapentin 100 Mg Capsule) 200 mg PO TID [facility] Last Admin: 12/28/22 14:09 Dose: 200 mg Hydrocortisone (Hydrocortisone 2.5 % Rectal Cr 30 Gm Tube) 1 appl DC BID [facility] Last Admin: 12/28/22 10:20 Dose: Not Given Lactated Ringer's (Lr) 1,000 mls @ 100 mls/hr IVCONT .Q10H [facility] Last Admin: 12/28/22 07:57 Dose: 100 mls/hr Ceftriaxone Sodium 1 gm/ (Sodium Chloride) 50 mls @ 100 mls/hr IV Q24H [facility] Lisinopril (Lisinopril 5 Mg Tablet) 15 mg PO DAILY [facility]; Protocol Last Admin: 12/28/22 10:50 Dose: 15 mg Multivitamins/Vitamin C (Multivitamin Tablet) 1 tab PO DAILY [facility] Last Admin: 12/28/22 10:51 Dose: 1 tab Non-Formulary Medication (Linaclotide [Linzess]) 145 mcg PO DAILY [facility] Omeprazole (Omeprazole 20 Mg/10 Ml Susp.Recon) 20 mg PO DAILY@0630 [facility] Ondansetron HCl (Ondansetron Hcl 4 Mg/2 Ml Vial) 4 mg IVPUSH Q8H PRN PRN Reason: Nausea and Vomiting Oxybutynin Chloride (Oxybutynin Chloride Er 5 Mg Tab.Er.24) 10 mg PO DAILY [facility] Last Admin: 12/28/22 10:20 Dose: Not Given Pharmacy Consult (Consult Rx Perform Med Rec) 1 each MISCELLANE ONCE PRN PRN Reason: Consult order Pravastatin Sodium (Pravastatin Sodium 40 Mg Tablet) 40 mg PO DAILY [facility] Sodium Chloride (0.9 % Sodium Chloride Flush 3 Ml Syringe) 3 ml IVFLUSH QSHIFT [facility] Last Admin: 12/28/22 13:51 Dose: Not Given Vitamin D (Cholecalciferol (Vitamin D3) 25 Mcg Tablet) 50 mcg PO DAILY [facility] Last Admin: 12/28/22 10:50 Dose: 50 mcg Home Medications Medication Instructions Recorded Confirmed Last Taken Type lisinopril 10 mg tablet 15 mg PO DAILY 03/09/22 12/28/22 08/12/22 History [id number] 15 ml PO DAILY 12/16/22 12/28/22 Unknown History 2.5 mg-50 mg-18 mg iron/15 mL oral liq (Geritol Tonic with Ferrex 18) aspirin 81 mg capsule 81 mg PO DAILY 12/16/22 12/28/22 Unknown History cholecalciferol (vitamin D3) 25 50 mcg PO QAM 12/16/22 12/28/22 Unknown History mcg (1,000 unit) chewable tablet (Vitamin D3) gabapentin 100 mg capsule 200 mg PO TID 12/28/22 12/28/22 Unknown History ipratropium 20 mcg-albuterol 100 1 puff inhalation QID 12/28/22 12/28/22 Unknown History mcg/actuation mist for inhalation (Combivent Respimat) pravastatin 40 mg tablet 40 mg PO DAILY 12/28/22 12/28/22 Unknown History Physical Exam Vital Signs: Vital Signs: Last Vital Signs Temp 98.2 F 12/28/22 09:58 Pulse 75 12/28/22 09:58 Resp 20 12/28/22 09:58 BP 118/66 12/28/22 09:58 Pulse Ox 95 12/28/22 09:58 O2 Del Method Room Air 12/28/22 09:58 BMI result Body Mass Index 19.6 Const: General: cooperative, healthy appearing, comfortable and no acute distress Orientation/consciousness: patient oriented x3 HEENT: Face and sinus: Yes normal facial exam Mouth: moist mucous membranes Neck: Neck: Yes normal visual inspection, Yes full ROM and Yes trachea midline Chest: Chest palpation & inspection: normal inspection of the chest Resp: Effort & Inspection: normal respiratory effort, able to speak in complete sentences and no respiratory distress GI: Inspection: Yes normal to inspection Back/Spine/Pelvis: Cervical Spine: normal cervical lordosis Thoracic/Lumbar Spine: thoracic and lumbar spine normal to inspection Skin: General skin exam: no rashes or lesions noted Neuro: General: patient oriented x3, tone normal and moves all extremities Extrem: General: Yes normal to inspection and Yes capillary refill normal Results Labs 12/28/22 05:22 12/28/22 05:22 Labs: Abnormal lab results 12/27/22 12/27/22 12/27/22 Range/Units 16:53 16:53 20:45 WBC 12.6 H (4.8-10.8) X10*3/uL RBC 4.17 L (4.20-5.50) X10*6/uL Hgb 11.1 L (12.0-16.0) g/dl Hct 36.1 L (37.0-47.0) % MCH 26.6 L (27.0-33.0) pg MCHC 30.7 L (31.0-35.0) g/dl Plt Count 533 H D (160-400) X10*3/uL Lymph % (Auto) 18.8 L (20-40) % Abs Immat Gran (auto) 0.05 H (0.00-0.03) X10*3/uL Absolute Neuts (auto) 9.2 H (2.0-8.3) x10*3/uL Potassium 5.2 H D (3.3-5.1) mmol/L BUN 34 H (9-16) mg/dL Creatinine 2.93 H (0.5-1.4) mg/dL Total Protein 6.3 L (6.5-8.0) g/dL Urine Protein 300 (3+) H (Neg-Trace) mg/dL Urine Blood Large (3+) H (Negative) Urine Nitrite Positive H (Negative) Ur Leukocyte Esterase Large (3+) H (Negative) Urine RBC >20 H (0-2) /HPF Urine WBC >50 H (0-5) /HPF 12/28/22 12/28/22 Range/Units 05:22 05:22 WBC (4.8-10.8) X10*3/uL RBC 3.54 L (4.20-5.50) X10*6/uL Hgb 9.6 L (12.0-16.0) g/dl Hct 31.4 L (37.0-47.0) % MCH (27.0-33.0) pg MCHC 30.6 L (31.0-35.0) g/dl Plt Count 453 H (160-400) X10*3/uL Lymph % (Auto) (20-40) % Abs Immat Gran (auto) (0.00-0.03) X10*3/uL Absolute Neuts (auto) (2.0-8.3) x10*3/uL Potassium (3.3-5.1) mmol/L BUN 30 H (9-16) mg/dL Creatinine 2.56 H (0.5-1.4) mg/dL Total Protein (6.5-8.0) g/dL Urine Protein (Neg-Trace) mg/dL Urine Blood (Negative) Urine Nitrite (Negative) Ur Leukocyte Esterase (Negative) Urine RBC (0-2) /HPF Urine WBC (0-5) /HPF Short CBC 12/27/22 12/28/22 Range/Units 16:53 05:22 WBC 12.6 H 8.0 (4.8-10.8) X10*3/uL Hgb 11.1 L 9.6 L (12.0-16.0) g/dl Hct 36.1 L 31.4 L (37.0-47.0) % Plt Count 533 H D 453 H (160-400) X10*3/uL BMP 12/27/22 12/28/22 16:53 05:22 Sodium 138 140 Potassium 5.2 H D 4.8 Chloride 105 108 Carbon Dioxide 26 24 BUN 34 H 30 H Creatinine 2.93 H 2.56 H Calcium 9.4 8.5 D Liver Function 12/27/22 Range/Units 16:53 Total Bilirubin 0.8 (0.0-1.0) mg/dL AST 10 (5-31) U/L ALT < 5 (0-31) U/L Alkaline Phosphatase 85 (39-117) U/L Albumin 3.6 (3.5-5.0) g/dL Urine 12/27/22 Range/Units 20:45 Urine Color BROWN Urine Appearance Cloudy Urine pH 5.5 (5.0-9.0) Ur Specific [place] 1.025 (1.005-1.025) Urine Protein 300 (3+) H (Neg-Trace) mg/dL Urine Glucose (UA) Negative (Negative) mg/dL All other labs normal. 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 Procedures Date of Service Date of Service: 12/28/22
[2022-12-28 15:30] VITALS: BP 140/66; PULSE 72; RESP 20; TEMP 37.1; O2SAT 95
[2022-12-28 19:12] VITALS: BP 131/72; PULSE 80; RESP 20; TEMP 37.4; O2SAT 95
[2022-12-28] MEDS: Albuterol/Iprat 2.5/0.5MG 3 ML AMPUL.NEB INHALE (19:24)
[2022-12-28] MEDS: Fluticasone Propionate 100 MCG BLST.W.DEV 1 PUFF INHALE (19:24)
[2022-12-28 19:25] VITALS: PULSE 89; RESP 16; O2SAT 94
[2022-12-28] MEDS: Hydrocortisone 2.5 % Rectal Cr 30 GM TUBE 1 APPL PR (20:20)
[2022-12-28] MEDS: cefTRIAXone sodium 1 GM in 0.9 % Sodium Chloride 50 ML IV (22:17)
[2022-12-29] VITALS (11 sets, daily range): BP systolic 123–177; BP diastolic 56–95; PULSE 46–109; RESP 16–21; TEMP 36.1–37.3; O2SAT 91–99; BMI 19.6
[2022-12-29] MEDS: Lactated Ringers 1,000 ML 100 ML IVCONT ×2 (05:54→15:09)
[2022-12-29 06:17] LABS: Hematocrit 29.7 % (37.0-47.0); Hemoglobin 9.1 g/dl (12.0-16.0); Mean Corpuscular HGB Conc 30.6 g/dl (31.0-35.0); Mean Corpuscular Hemoglobin 26.8 pg (27.0-33.0); Mean Corpuscular Volume 87.6 fL (80.0-98.0); Platelet Count 449 X10*3/uL (160-400); Red Blood Count 3.39 X10*6/uL (4.20-5.50); Red Cell Distribution Width 15.1 % (11.0-16.0); White Blood Count 7.1 X10*3/uL (4.8-10.8)
[2022-12-29 06:55] LABS: Anion Gap 14 (12-20); Blood Urea Nitrogen 24 mg/dL (9-16); Calcium 8.8 mg/dL (8.4-10.2); Carbon Dioxide 24 mmol/L (22-29); Chloride 109 mmol/L (96-108); Creatinine Clr Calc Pharmacy 16.6; Estimated Glomerular Filt Rate 21; Glucose Random 81 mg/dL (60-115); Potassium 4.8 mmol/L (3.3-5.1); Sodium 142 mmol/L (135-145)
[2022-12-29] MEDS: Albuterol/Iprat 2.5/0.5MG 3 ML AMPUL.NEB INHALE ×3 (08:00→20:24)
--- NOTE | 2022-12-29 08:08 | PC.NURSE ---
late entry. call to lab for pt/inr in short stay rm 8. dye lab technician to floor room first, drawn @ [id number]
[2022-12-29 08:26] LABS: INTERNATIONAL NORM RATIO 0.9 (0.9-1.1); Prothrombin Time 10.4 SEC (10.0-13.1)
--- NOTE | 2022-12-29 08:48 | P.PNIM_ITS ---
Subjective Subjective Date of Service: 12/29/22 Interval History: Seen and evaluated this morning improved RLQ pain , no fever or chills Rt sided Nephrostomy tube placement no other overnight events Review of Systems Review of Systems: Yes all other systems are reviewed and are negative Physical Exam Vital Signs: Vital Signs: Last Vital Signs Temp 99.2 F 12/29/22 07:30 Pulse 46 L 12/29/22 07:58 Resp 16 12/29/22 07:58 BP 134/86 12/29/22 07:30 Pulse Ox 99 12/29/22 07:30 O2 Del Method Room Air 12/29/22 07:30 BMI result Body Mass Index 19.6 Const: Other: Constitutional : Awake, interactive, not in distress Neck : Normal inspection, Supple Cardiovascular : RRR, no JVP, no lower extremity edema Respiratory : good bilateral air entry, no crackles, wheezes or rhonchi Gastrointestinal: soft, lax, Normal bowel sounds, RLQ tenderness with palpation Skin : Warm, Dry Renal: Right sided nephrostomy in place with bloody tinged urine, lazo in place Neurological : Alert & oriented x3, No focal deficit Objective Data Active Medications Acetaminophen (Acetaminophen 325 Mg Tablet) 650 mg PO Q6H PRN PRN Reason: Pain, Mild (Pain Scale 1-3) Albuterol/Ipratropium (Albuterol/Iprat 2.5/0.5mg 3 Ml Ampul.Neb) 3 ml INHALE RQ6H WHILE AWAKE [facility] Last Admin: 12/29/22 08:00 Dose: 3 ml Documented By: MARCELLUS Fluticasone Propionate (Fluticasone Propionate 100 Mcg Blst.W.Dev) 1 puff INHALE RBID [facility] Last Admin: 12/29/22 07:53 Dose: Not Given Documented By: YELENA Non-Admin Reason: pt off unit Gabapentin (Gabapentin 100 Mg Capsule) 200 mg PO TID [facility] Last Admin: 12/28/22 20:18 Dose: 200 mg Documented By: BILLIE Hydrocortisone (Hydrocortisone 2.5 % Rectal Cr 30 Gm Tube) 1 appl SC BID [facility] Last Admin: 12/28/22 20:20 Dose: 1 appl Documented By: BILLIE Lactated Ringer's (Lr) 1,000 mls @ 100 mls/hr IVCONT .Q10H [facility] Last Admin: 12/29/22 05:54 Dose: 100 mls/hr Documented By: BILLIE Ceftriaxone Sodium 1 gm/ (Sodium Chloride) 50 mls @ 100 mls/hr IV Q24H [facility] Last Infusion: 12/28/22 22:49 Dose: 0 mls/hr Documented By: BILLIE Lisinopril (Lisinopril 5 Mg Tablet) 15 mg PO DAILY [facility]; Protocol Last Admin: 12/28/22 10:50 Dose: 15 mg Documented By: MIRTHA Multivitamins/Vitamin C (Multivitamin Tablet) 1 tab PO DAILY [facility] Last Admin: 12/28/22 10:51 Dose: 1 tab Documented By: MIRTHA Non-Formulary Medication (Linaclotide [Linzess]) 145 mcg PO DAILY [facility] Omeprazole (Omeprazole 20 Mg/10 Ml Susp.Recon) 20 mg PO DAILY@0630 [facility] Last Admin: 12/29/22 05:55 Dose: Not Given Documented By: BILLIE Non-Admin Reason: NPO Ondansetron HCl (Ondansetron Hcl 4 Mg/2 Ml Vial) 4 mg IVPUSH Q8H PRN PRN Reason: Nausea and Vomiting Oxybutynin Chloride (Oxybutynin Chloride Er 5 Mg Tab.Er.24) 10 mg PO DAILY [facility] Last Admin: 12/28/22 10:20 Dose: Not Given Documented By: MIRTHA Non-Admin Reason: See Note Pharmacy Consult (Consult Rx Perform Med Rec) 1 each MISCELLANE ONCE PRN PRN Reason: Consult order Pravastatin Sodium (Pravastatin Sodium 40 Mg Tablet) 40 mg PO DAILY [facility] Sodium Chloride (0.9 % Sodium Chloride Flush 3 Ml Syringe) 3 ml IVFLUSH QSHIFT [facility] Last Admin: 12/29/22 07:41 Dose: Not Given Documented By: ALEJANDRA Non-Admin Reason: Off Unit: Surgery Vitamin D (Cholecalciferol (Vitamin D3) 25 Mcg Tablet) 50 mcg PO DAILY [facility] Last Admin: 12/28/22 10:50 Dose: 50 mcg Documented By: MIRTHA Labs 12/29/22 05:30 12/29/22 05:30 Labs: Laboratory Results - last 24 hr 04/20/23 04/20/23 04/20/23 05:30 05:30 08:10 MCV 87.6 MCH 26.8 L MCHC 30.6 L RDW 15.1 Plt Count 449 H MPV 10.0 Absolute Nucleated RBC 0.000 Nucleated RBC % (auto) 0.0 PT 10.4 INR 0.9 Anion Gap 14 Estim Creat Clear Calc 16.6 Estimated GFR 21 Random Glucose 81 Calcium 8.8 Microbiology Microbiology Results: Microbiology 12/27/22 21:58 Blood Culture - Preliminary Blood - Venous No growth after 24 hours. 12/27/22 21:35 Blood Culture - Preliminary Blood - Venous No growth after 24 hours. 12/27/22 21:09 Urine Culture - Preliminary Urine clean catch - Urine jenkins top No growth to date. 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: Status: Acute (2) NADEEN (acute kidney injury): Status: Acute (3) Acute UTI: Status: Acute (4) Hematuria: Status: Acute Plan 77-year-old female with history of bladder cancer presents to the hospital complaints of hematuria, suprapubic pain found to have acute UTI # acute UTI symptomatic with suprapubic pain IV antibiotics follow cultures # NADEEN 2/2 hydronephrosis due to obstructive malignant bladder cancer postobstructive in the setting of bladder cancer severe hydroureteronephrosis on CT of the abdomen with no evidence of o bstructing stone IV fluid, avoid nephrotoxic nephrology input appreciated, to place nephrostomy tube by IR Nephrostomy placed with bloody tinged urine # hematuria in the setting of bladder cancer urology following follow CBC # hypertension continue home antihypertensives DVT prophylaxis SCDs in the setting of hematuria Given patient's need for further evaluation for severe hydroureteronephrosis, NADEEN, treatment for UTI patient will require overnight inpatient hospital stay for further management and monitoring Time Spent With Patient Time: Total time managing care of this patient today ____ minutes. Quality Stroke Does the patient have a stroke diagnosis?: No VTE Prior VTE?: No VTE Risk Level:: Medical - moderate - high VTE Device Contraindication: Treatment Not Indicated VTE Drug Contraindication: N/A - Med Ordered
[2022-12-29] MEDS: Lidocaine HCl 1 % MPF 30 ML VIAL 10 ML SUBCUT (09:34)
[2022-12-29] MEDS: iohexoL 300 MG/ML 100 ML INFUS..BTL 20 ML IV (09:36)
--- NOTE | 2022-12-29 10:37 | PM.PNNEP ---
Subjective Subjective Date of Service: 01/02/23 Interval history: Events noted Cr trending down Await PCN Physical Exam Vital Signs: Vital Signs: Last Vital Signs Temp 98.6 F 12/29/22 10:05 Pulse 93 12/29/22 10:05 Resp 21 H 12/29/22 10:05 BP 165/81 H 12/29/22 10:05 Pulse Ox 97 12/29/22 10:05 O2 Del Method Nasal Cannula 12/29/22 10:05 O2 Flow Rate 2 12/29/22 10:05 BMI result Body Mass Index 19.6 Const: General: cooperative; No confusion Orientation/consciousness: patient oriented x3 and No confusion Neck: Neck: Yes supple and Yes no JVD Resp: Effort & Inspection: no cough Auscultation: no crackles Cardio: Palpation: no palpable S3 Heart sounds: no click and no rubs GI: Palpation (GI): Soft to palpation and nontender Auscultation: normal bowel sounds Skin: General skin exam: no jaundice Neuro: General: patient oriented x3, no focal motor deficits and No confusion Motor exam (neuro): No Asterixis during motor activity present Sensory Exam: No Sensory deficit (Neuro) Objective Data Labs 12/29/22 05:30 12/29/22 05:30 Labs: Laboratory Results - last 24 hr 12/29/22 12/29/22 12/29/22 05:30 05:30 08:10 WBC 7.1 RBC 3.39 L Hgb 9.1 L Hct 29.7 L MCV 87.6 MCH 26.8 L MCHC 30.6 L RDW 15.1 Plt Count 449 H MPV 10.0 Absolute Nucleated RBC 0.000 Nucleated RBC % (auto) 0.0 PT 10.4 INR 0.9 Sodium 142 Potassium 4.8 Chloride 109 H Carbon Dioxide 24 Anion Gap 14 BUN 24 H Creatinine 2.29 H Estim Creat Clear Calc 16.6 Estimated GFR 21 Random Glucose 81 Calcium 8.8 Microbiology Microbiology Results: Microbiology 12/27/22 21:58 Blood - Venous Blood Culture - Preliminary No growth after 24 hours. 12/27/22 21:35 Blood - Venous Blood Culture - Preliminary No growth after 24 hours. 12/27/22 21:09 Urine clean catch - Urine jenkins top Urine Culture - Preliminary No growth to date. 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 She is a Kelly catheter. CT scan shows worsening Right hydro Obstructive uropathy seems to be the main issues There could be a componenent of hypoperfusion Cr is trending down with IVF Suggest IV hydration Await right PCN No indication for dialysis Keep on Low K diet Continue to avoid nephrotoxins Time Spent With Patient Time: Total time managing care of this patient today ____ minutes. Progress Note: Quality Stroke Does the patient have a stroke diagnosis?: No
[2022-12-29] MEDS: Cholecalciferol (Vitamin D3) 25 MCG TABLET 50 MCG PO (10:44)
[2022-12-29] MEDS: ondansetron HCL 4 MG/2 ML VIAL IVPUSH (10:44)
[2022-12-29] MEDS: lisinopriL 5 MG TABLET 15 MG PO (10:45)
[2022-12-29] MEDS: Acetaminophen 325 MG TABLET 650 MG PO (10:45)
[2022-12-29] MEDS: Multivitamin TABLET 1 TAB PO (10:46)
[2022-12-29] MEDS: oxyBUTYnin chloride ER 5 MG TAB.ER.24 10 MG PO (11:03)
[2022-12-29] MEDS: Pravastatin Sodium 40 MG TABLET PO (11:04)
--- NOTE | 2022-12-29 13:18 | MHC.CM.PN ---
CM MET WITH PT AND WITH THE ASSISTANCE OF A [facility] [employer]BI[employer]PLICATION DEVELOPER PT LIVES WITH HER AND HAS DAILY ECONOMIC ANALYSIS DIRECTOR SERVICES SHE REPORTS SHE HAS A NURSE FROM HER INSURANCE COMPANY, [employer] THAT COMES IN TO DO HER VS AND CHECK HER CATHETER SHE REPORTS SHE HAS A NEBULIZER BUT FEELS SHE NEEDS A NEW ONE, SHE DOES CONFIRM SHE HAS DISCUSSED THIS WITH HER [employer] CM SHE IS UNSURE IF SHE HAS A HCP, SHE IS AWARE THERE IS NOTHING ON FILE AND CM CAN ASSIST IN COMPLETING ONE DURING ADMISSION SHE REPORTS SHE HAS BEEN SEEING MARY ANN MERIDA FOR PRIMARY CARE, SHE THINKS STEPHANIE COATS IS LEAVING THE PRACTICE IMM DELIVERED CURRENT DC PLAN IS HOME WITH RESUMPTION OF SERVICES TO TRANSPORT
[2022-12-29] MEDS: Gabapentin 100 MG CAPSULE 200 MG PO ×2 (15:13→20:58)
[2022-12-29] MEDS: Fluticasone Propionate 100 MCG BLST.W.DEV 1 PUFF INHALE (20:24)
[2022-12-29 20:37] LABS: Glucose, Whole Blood 82 mg/dL (60-115)
[2022-12-29] MEDS: cefTRIAXone sodium 1 GM in 0.9 % Sodium Chloride 50 ML IV (22:37)
[2022-12-29] MEDS: Hydrocortisone 2.5 % Rectal Cr 30 GM TUBE 1 APPL PR (22:44)
[2022-12-30] VITALS (7 sets, daily range): BP systolic 100–144; BP diastolic 53–62; PULSE 67–95; RESP 14–20; TEMP 36.3–36.7; O2SAT 91–99
[2022-12-30] MEDS: Lactated Ringers 1,000 ML 100 ML IVCONT ×3 (02:39→21:36)
[2022-12-30] MEDS: lisinopriL 5 MG TABLET 15 MG PO (07:48)
[2022-12-30] MEDS: Multivitamin TABLET 1 TAB PO (07:48)
[2022-12-30] MEDS: oxyBUTYnin chloride ER 5 MG TAB.ER.24 10 MG PO (07:48)
[2022-12-30] MEDS: Cholecalciferol (Vitamin D3) 25 MCG TABLET 50 MCG PO (07:48)
[2022-12-30] MEDS: Hydrocortisone 2.5 % Rectal Cr 30 GM TUBE 1 APPL PR (07:49)
[2022-12-30] MEDS: Gabapentin 100 MG CAPSULE 200 MG PO ×3 (07:49→21:41)
[2022-12-30] MEDS: Pravastatin Sodium 40 MG TABLET PO (07:49)
[2022-12-30] MEDS: 0.9 % Sodium Chloride Flush 3 ML SYRINGE IVFLUSH ×2 (07:50→21:41)
[2022-12-30] MEDS: Albuterol/Iprat 2.5/0.5MG 3 ML AMPUL.NEB INHALE ×3 (07:58→19:45)
[2022-12-30] MEDS: Fluticasone Propionate 100 MCG BLST.W.DEV 1 PUFF INHALE ×2 (07:58→19:45)
--- NOTE | 2022-12-30 09:00 | HO.PM.IMPN ---
Subjective Subjective Date of Service: 12/30/22 Interval History: f/u on obstructive uropathy, nadeen, hamturia Physical Exam Vital Signs: Vital Signs: Last Vital Signs Temp 97.5 F 12/30/22 03:38 Pulse 89 12/30/22 07:58 Resp 16 12/30/22 07:58 BP 109/53 L 12/30/22 03:38 Pulse Ox 99 12/30/22 03:38 O2 Del Method Room Air 12/30/22 03:38 O2 Flow Rate 2 12/29/22 10:38 BMI result Body Mass Index 19.6 Const: Other: General: AO X 3, no acute distress Resp: CTA bilateral CVS: S1,S2,RRR GI: +BS, NT, no distention Skin: No rash Neuro: motor grossly intact Psych: appropriate affect Objective Data Active Medications Acetaminophen (Acetaminophen 325 Mg Tablet) 650 mg PO Q6H PRN PRN Reason: Pain, Mild (Pain Scale 1-3) Last Admin: 12/29/22 10:45 Dose: 650 mg Documented By: ALEJANDRA Albuterol/Ipratropium (Albuterol/Iprat 2.5/0.5mg 3 Ml Ampul.Neb) 3 ml INHALE RQ6H WHILE AWAKE [facility] Last Admin: 12/30/22 07:58 Dose: 3 ml Documented By: MARCELLUS Fluticasone Propionate (Fluticasone Propionate 100 Mcg Blst.W.Dev) 1 puff INHALE RBID [facility] Last Admin: 12/30/22 07:58 Dose: 1 puff Documented By: MARCELLUS Gabapentin (Gabapentin 100 Mg Capsule) 200 mg PO TID [facility] Last Admin: 12/30/22 07:49 Dose: 200 mg Documented By: ANURAG Hydrocortisone (Hydrocortisone 2.5 % Rectal Cr 30 Gm Tube) 1 appl NE BID [facility] Last Admin: 12/30/22 07:49 Dose: 1 appl Documented By: ANURAG Ceftriaxone Sodium 1 gm/ (Sodium Chloride) 50 mls @ 100 mls/hr IV Q24H [facility] Last Infusion: 12/29/22 23:13 Dose: 0 mls/hr Documented By: LIBRADO Lactated Ringer's (Lr) 1,000 mls @ 100 mls/hr IVCONT .Q10H [facility] Last Admin: 12/30/22 02:39 Dose: 100 mls/hr Documented By: LIBRADO Lisinopril (Lisinopril 5 Mg Tablet) 15 mg PO DAILY [facility]; Protocol Last Admin: 12/30/22 07:48 Dose: 15 mg Documented By: ANURAG Multivitamins/Vitamin C (Multivitamin Tablet) 1 tab PO DAILY [facility] Last Admin: 12/30/22 07:48 Dose: 1 tab Documented By: ANURAG Non-Formulary Medication (Linaclotide [Linzess]) 145 mcg PO DAILY [facility] Omeprazole (Omeprazole 20 Mg/10 Ml Susp.Recon) 20 mg PO DAILY@0630 [facility] Last Admin: 12/30/22 06:06 Dose: 20 mg Documented By: LIBRADO Ondansetron HCl (Ondansetron Hcl 4 Mg/2 Ml Vial) 4 mg IVPUSH Q8H PRN PRN Reason: Nausea and Vomiting Last Admin: 12/29/22 10:44 Dose: 4 mg Documented By: ALEJANDRA Oxybutynin Chloride (Oxybutynin Chloride Er 5 Mg Tab.Er.24) 10 mg PO DAILY [facility] Last Admin: 12/30/22 07:48 Dose: 10 mg Documented By: ANURAG Pharmacy Consult (Consult Rx Perform Med Rec) 1 each MISCELLANE ONCE PRN PRN Reason: Consult order Pravastatin Sodium (Pravastatin Sodium 40 Mg Tablet) 40 mg PO DAILY [facility] Last Admin: 12/30/22 07:49 Dose: 40 mg Documented By: ANURAG Sodium Chloride (0.9 % Sodium Chloride Flush 3 Ml Syringe) 3 ml IVFLUSH QSHIFT [facility] Last Admin: 12/30/22 07:50 Dose: 3 ml Documented By: ANURAG Vitamin D (Cholecalciferol (Vitamin D3) 25 Mcg Tablet) 50 mcg PO DAILY [facility] Last Admin: 12/30/22 07:48 Dose: 50 mcg Documented By: ANURAG Labs 12/29/22 05:30 12/29/22 05:30 Labs: Laboratory Results - last 24 hr 12/29/22 20:33 POC Glucose 82 Microbiology Microbiology Results: Microbiology 12/27/22 21:58 Blood Culture - Preliminary Blood - Venous No growth after 48 hours. 12/27/22 21:35 Blood Culture - Preliminary Blood - Venous No growth after 48 hours. 12/27/22 21:09 Urine Culture - Final Urine clean catch - Urine jenkins top No growth. 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 Stop Abx after today # NADEEN d/t hydronephrosis from obstructive malignant bladder cancer, s/p placement of right Nephrostomy cathter 12/29 by IR, # hematuria in the setting of bladder cancer urology following follow CBC, resolved. # HTN continue home antihypertensives DVT prophylaxis SCDs in the setting of hematuria Given patient's need for further evaluation for severe hydroureteronephrosis, NADEEN, treatment for UTI patient will require overnight inpatient hospital stay for further management and monitoring Time Spent With Patient Time: Total time managing care of this patient today ____ minutes. Quality Stroke Does the patient have a stroke diagnosis?: No VTE Prior VTE?: No VTE Risk Level:: Medical - moderate - high VTE Device Contraindication: Treatment Not Indicated VTE Drug Contraindication: N/A - Med Ordered
[2022-12-30 11:35] LABS: Hematocrit 30.1 % (37.0-47.0); Hemoglobin 9.2 g/dl (12.0-16.0); Mean Corpuscular HGB Conc 30.6 g/dl (31.0-35.0); Mean Corpuscular Hemoglobin 26.7 pg (27.0-33.0); Mean Corpuscular Volume 87.5 fL (80.0-98.0); Mean Platelet Volume 10.1 fL (9.4-12.3); Platelet Count 427 X10*3/uL (160-400); Red Blood Count 3.44 X10*6/uL (4.20-5.50); Red Cell Distribution Width 15.4 % (11.0-16.0)
[2022-12-30 11:51] LABS: Anion Gap 11 (12-20); Blood Urea Nitrogen 18 mg/dL (9-16); Calcium 8.6 mg/dL (8.4-10.2); Carbon Dioxide 28 mmol/L (22-29); Chloride 106 mmol/L (96-108); Creatinine Clr Calc Pharmacy 16.2; Estimated Glomerular Filt Rate 20; Glucose Random 82 mg/dL (60-115); Sodium 141 mmol/L (135-145)
--- NOTE | 2022-12-30 14:47 | PM.PNNEP ---
Subjective Subjective Date of Service: 12/30/22 Interval history: Events noted. All recent data reviewed Physical Exam Vital Signs: Vital Signs: Last Vital Signs Temp 97.4 F 12/30/22 09:15 Pulse 89 12/30/22 09:15 Resp 20 12/30/22 09:15 BP 144/62 H 12/30/22 09:15 Pulse Ox 91 L 12/30/22 09:15 O2 Del Method Room Air 12/30/22 09:15 O2 Flow Rate 2 12/29/22 10:38 BMI result Body Mass Index 19.6 Const: General: comfortable Eyes: EOM: EOMs intact bilaterally Resp: Auscultation: diminished lung sounds Cardio: Rate: regular rate GI: Palpation (GI): Soft to palpation Neuro: General: moves all extremities Objective Data Labs 12/30/22 11:22 12/30/22 11:22 Labs: Laboratory Results - last 24 hr 12/29/22 12/30/22 12/30/22 20:33 11:22 11:22 WBC 9.0 RBC 3.44 L Hgb 9.2 L Hct 30.1 L MCV 87.5 MCH 26.7 L MCHC 30.6 L RDW 15.4 Plt Count 427 H MPV 10.1 Absolute Nucleated RBC 0.000 Nucleated RBC % (auto) 0.0 Sodium 141 Potassium 4.0 Chloride 106 Carbon Dioxide 28 Anion Gap 11 L BUN 18 H Creatinine 2.35 H Estim Creat Clear Calc 16.2 Estimated GFR 20 POC Glucose 82 Random Glucose 82 Calcium 8.6 Microbiology Microbiology Results: Microbiology 12/27/22 21:58 Blood - Venous Blood Culture - Preliminary No growth after 48 hours. 12/27/22 21:35 Blood - Venous Blood Culture - Preliminary No growth after 48 hours. 12/27/22 21:09 Urine clean catch - Urine jenkins top Urine Culture - Final No growth. Procedures Date of Service Date of Service: 12/30/22 Assessment & Plan Assessment and plan (1) NADEEN (acute kidney injury): Status: Acute Assessment and Plan: 77-year-old woman with acute kidney injury in the setting of bladder tumor CT scan shows worsening Right hydro S/P nephrostomy; Renal function stable No indication for dialysis; Labs AM Progress Note: Quality Stroke Does the patient have a stroke diagnosis?: No
--- NOTE | 2022-12-30 16:26 | MHC.CM.PN ---
RENAL FUNCTION WORSENING. LABS TO BE DRAWN IN A.M. ON 12/31/22 POSSIBLE HOME BY MONDAY WITH HER DAILY VNA THROUGH [facility]
[2022-12-30] MEDS: cefTRIAXone sodium 1 GM in 0.9 % Sodium Chloride 50 ML IV (21:41)
[2022-12-31 03:44] VITALS: BP 108/55; PULSE 88; RESP 18; TEMP 36.7; O2SAT 95
[2022-12-31 07:53] VITALS: BP 132/68; PULSE 79; RESP 16; TEMP 37.1; O2SAT 98
[2022-12-31] MEDS: oxyBUTYnin chloride ER 5 MG TAB.ER.24 10 MG PO (07:55)
[2022-12-31] MEDS: Lactated Ringers 1,000 ML 100 ML IVCONT (07:55)
[2022-12-31] MEDS: Pravastatin Sodium 40 MG TABLET PO (07:56)
[2022-12-31] MEDS: Gabapentin 100 MG CAPSULE 200 MG PO ×2 (07:56→14:35)
[2022-12-31] MEDS: Multivitamin TABLET 1 TAB PO (07:57)
[2022-12-31] MEDS: Cholecalciferol (Vitamin D3) 25 MCG TABLET 50 MCG PO (07:57)
[2022-12-31 08:23] LABS: Anion Gap 13 (12-20); Blood Urea Nitrogen 16 mg/dL (9-16); Calcium 7.9 mg/dL (8.4-10.2); Carbon Dioxide 26 mmol/L (22-29); Chloride 109 mmol/L (96-108); Estimated Glomerular Filt Rate 24; Glucose Random 74 mg/dL (60-115); Potassium 4.3 mmol/L (3.3-5.1); Sodium 144 mmol/L (135-145)
[2022-12-31] MEDS: Fluticasone Propionate 100 MCG BLST.W.DEV 1 PUFF INHALE (08:27)
[2022-12-31] MEDS: Albuterol/Iprat 2.5/0.5MG 3 ML AMPUL.NEB INHALE ×2 (08:27→15:36)
[2022-12-31 08:28] VITALS: PULSE 68; RESP 16; O2SAT 96
--- NOTE | 2022-12-31 08:39 | PM.DS ---
DS: Providers Provider Date of Service: 12/31/22 Date of admission: 12/27/22 21:47 Primary care physician: Angeline Klein MD Consults: 12/27/22 21:41 Consult to Nephrology Routine Consulting Provider: [facility] Reason for consultation: NADEEN, Has provider been notified: No Consult to Urology Routine Consulting Provider: Yolande Warner Reason for consultation: severe hydrouretonephrosis Has provider been notified: No DS: Diagnosis Discharge Diagnosis (1) NADEEN (acute kidney injury): Status: Acute DS: Summary Hospital Course Hospital Course: Chief Complaint: blood in lazo bag 77-year-old female with past medical history of bladder cancer, permanent Lazo catheterization,? HLD, HTN, presents to the hospital sent from oncologist.? Patient reports that her oncologist sent her to the hospital for blood in the Lazo catheter.? She states that she noticed blood initially 3 weeks ago, that has now worsened.? She is also complaining of pelvic pain for the past several days, reports feeling feverish, having chills, denies having any chest pain, no nausea or vomiting, no diarrhea constipation, no lower extremity edema no weakness.? She also reports that she had bilateral flank pain the day prior that has now resolved On arrival patient hemodynamically stable with no significant abnormal vitals Labs are significant for WBC count of 12.6, hemoglobin of 11.1 which is around her baseline, hematocrit 36.1 which cluster baseline, platelets of 533, potassium 5.2, creatinine of 2.93 with a baseline of 0.81, urine positive for leukocyte Estrace, nitrites, WBC, and bacteria Patient started on IV antibiotics, fluids and will be admitted for further management hospital course: Patient has known bladder cancer with chronic lazo cather and presented with hematuria and noted to have creatine of 2.93, baseline is less than one. CT of abdomen and pelvis showed Severe right hydroureteronephrosis. The extent of hydronephrosis has increased from the prior MRI, she was evaluated by Dr. Blair (urologist) and underwent a right sided nephrostomy tube placement by IR on 12/29 and following this her renal function has been steadily improving to 2.35 on 12/30 and 1.99 today 12/31. Dr. Blair will follow on outpatient, hematuria has resolved, H/H was stable at around 9/30. Will discharge home with [facility] Time Spent with Patient Time attestation: Total time managing care of this patient today ____ minutes. Discharge coordination time: Greater than 30 minutes Quality: Safe Use of Opioids Does Pt have an Active Cancer Diagnosis on the Problem List?: No Quality: Stroke Does the patient have a stroke diagnosis?: No Physical Exam Vital Signs: Vital Signs: Last Vital Signs Temp 98.7 F 12/31/22 07:53 Pulse 68 12/31/22 08:28 Resp 16 12/31/22 08:28 BP 132/68 12/31/22 07:53 Pulse Ox 98 12/31/22 07:53 O2 Del Method Room Air 12/31/22 07:53 O2 Flow Rate 2 12/29/22 10:38 BMI result Body Mass Index 19.6 DS: Data Data Completed and Pending Completed studies during hospitalization [Text1]: Procedures Destruction of Bladder, Via Natural or Artificial Opening Endoscopic (08/13/22) Excision of Bladder, Via Natural or Artificial Opening Endoscopic (08/13/22) Labs on day of discharge: Laboratory Results - last 24 hr 12/30/22 12/30/22 12/31/22 11:22 11:22 07:50 WBC 9.0 RBC 3.44 L Hgb 9.2 L Hct 30.1 L MCV 87.5 MCH 26.7 L MCHC 30.6 L RDW 15.4 Plt Count 427 H MPV 10.1 Absolute Nucleated RBC 0.000 Nucleated RBC % (auto) 0.0 Sodium 141 144 Potassium 4.0 4.3 Chloride 106 109 H Carbon Dioxide 28 26 Anion Gap 11 L 13 BUN 18 H 16 Creatinine 2.35 H 1.99 H Estim Creat Clear Calc 16.2 19.0 Estimated GFR 20 24 Random Glucose 82 74 Calcium 8.6 7.9 L D Preliminary micro results at discharge 12/27/22 21:58 Blood Culture - Preliminary Blood - Venous No growth after 48 hours. 12/27/22 21:35 Blood Culture - Preliminary Blood - Venous No growth after 48 hours. Discharge Plan Discharge Anticipated Discharge Date/Time: 12/31/22 08:36 Patient Disposition: Home Health Service Discharge Diagnosis: Bladder mass, UTI, acute kidney injury Referrals: Severo Blair MD [Physician] - 2 Weeks Angeline Klein MD [Primary Care Provider] - 1 Week Discharge Medications: Continued benralizumab 30 mg/mL syringe 30 mg subcut Q8W Qty: 1 11RF Flovent HFA 110 mcg/actuation HFA aerosol inhaler 1 puff inhalation BID Qty: 12 3RF pravastatin 40 mg tablet 40 mg PO DAILY Combivent Respimat 20-100 mcg/actuation mist 1 puff INHALATION QID gabapentin 100 mg capsule 200 mg PO TID lisinopril 10 mg tablet 15 mg PO DAILY Geritol Tonic with Ferrex 18 2.5 mg-50 mg-18 iron/15 mL liquid 15 ml PO DAILY cholecalciferol (vitamin D3) [Vitamin D3] 25 mcg (1,000 unit) tablet,chewable 50 mcg PO QAM aspirin 81 mg capsule 81 mg PO DAILY Linzess 145 mcg capsule 145 mcg PO QAM Qty: 30 6RF hydrocortisone [Proctosol HC] 2.5 % cream with perineal applicator 1 appl TX BID Qty: 30 6RF Rx Instructions: BE SURE TO INCLUDE RECTAL APPICATOR!! pantoprazole [Protonix] 40 mg tablet,delayed release (DR/EC) 40 mg PO DAILY 30 Days Qty: 30 1RF oxybutynin chloride 10 mg tablet extended release 24hr 10 mg PO DAILY 30 Days Qty: 30 1RF No Action nystatin 100,000 unit/mL Suspension 100,000 unit PO TID Qty: 100 2RF Rx Instructions: swish and swallow tid tramadol 50 mg Tablet 50 mg PO Q6H PRN (Reason: Pain) Qty: 60 0RF ondansetron 8 mg Tablet,Disintegrating 8 mg PO Q8H PRN (Reason: Nausea) Qty: 30 3RF dexamethasone 4 mg Tablet 4 mg PO BID Qty: 30 3RF Rx Instructions: for2 days after chemo polyethylene glycol 3350 [Miralax] 17 gram Powder In Packet 17 g PO DAILY Qty: 30 3RF sennosides-docusate sodium [Senna with Docusate Sodium] 8.6-50 mg Tablet 1 tab-cap PO BEDTIME Qty: 30 3RF Discharge Orders: Discharge Order (Routine); Ordered 12/31/22 Ordered By: Jairon [facility] Diet: Advance to usual diet Activity on Discharge: As tolerated Stand Alone Forms: Patient Portal Discharge page Care Plan Goals: full recovery from kidney failure and treatment of bladder cancer Health Concerns: kidney failure bladder cancer Plan of Treatment: Follow up with Dr. Blair Assessment: as above Discharge Date/Time: 12/31/22 16:57
--- NOTE | 2022-12-31 13:29 | PM.PNNEP ---
Subjective Subjective Date of Service: 12/31/22 Interval history: Events noted. All recent data reviewed; D/W Med Attending Physical Exam Vital Signs: Vital Signs: Last Vital Signs Temp 98.7 F 12/31/22 07:53 Pulse 68 12/31/22 08:28 Resp 16 12/31/22 08:28 BP 132/68 12/31/22 07:53 Pulse Ox 98 12/31/22 07:53 O2 Del Method Room Air 12/31/22 07:53 O2 Flow Rate 2 12/29/22 10:38 BMI result Body Mass Index 19.6 Const: General: no acute distress Eyes: EOM: EOMs intact bilaterally Neck: Neck: Yes supple Resp: Auscultation: diminished lung sounds Cardio: Rate: regular rate GI: Palpation (GI): Soft to palpation Neuro: General: moves all extremities Objective Data Labs 12/30/22 11:22 12/31/22 07:50 Labs: Laboratory Results - last 24 hr 12/31/22 07:50 Sodium 144 Potassium 4.3 Chloride 109 H Carbon Dioxide 26 Anion Gap 13 BUN 16 Creatinine 1.99 H Estim Creat Clear Calc 19.0 Estimated GFR 24 Random Glucose 74 Calcium 7.9 L D Microbiology Microbiology Results: Microbiology 12/27/22 21:58 Blood - Venous Blood Culture - Preliminary No growth after 48 hours. 12/27/22 21:35 Blood - Venous Blood Culture - Preliminary No growth after 48 hours. 12/27/22 21:09 Urine clean catch - Urine jenkins top Urine Culture - Final No growth. Procedures Date of Service Date of Service: 12/31/22 Assessment & Plan Assessment and plan (1) NADEEN (acute kidney injury): Status: Acute Assessment and Plan: 77-year-old woman with acute kidney injury in the setting of bladder tumor CT scan shows worsening Right hydro S/P nephrostomy; Renal function better C/W current management; Shall arrange F/U Progress Note: Quality Stroke Does the patient have a stroke diagnosis?: No
[2022-12-31 15:14] VITALS: BP 163/68; PULSE 77; RESP 18; TEMP 37.1; O2SAT 97
--- NOTE | 2022-12-31 15:14 | MHC.CM.PN ---
Addendum entered by Luz Bustos 12/31/22 15:27: PT COMPLETED A HCP NAMING HER HER AGENT Original Note: PT WILL DC HOME TODAY WITH RESUMPTION OF OPERATIONS TRAINER AND RN SERVICES PER PT HER RN IS FROM HER INSURANCE COMPANY PTS TO TRANSPORT
[2022-12-31 15:37] VITALS: PULSE 76; RESP 18; O2SAT 97
== END 2022-12-31 16:57 | disposition home health service (06) | DRG 661 ==
LOC: HO.ED 21:46 → HO.EDOVER 22:14 → HO.S3 12-28 07:57
PROVIDERS: Physician Assistant; Radiology Diagnostic Radiology; Student in an Organized Health Care Education/Training Program; Admitting Provider Internal Medicine; Emergency Provider Student in an Organized Health Care Education/Training Program; PCP General Practice; Visit Provider Internal Medicine
PROC: 0T133JD Bypass Right Kidney Pelvis to Cutaneous with Synthetic Substitute, Percutaneous Approach (ICD-10-PCS; principal; 2022-12-29 08:30)
DX: N13.6 Pyonephrosis (principal); N17.9 Acute kidney failure, unspecified; I10 Essential (primary) hypertension; J43.9 Emphysema, unspecified; C67.9 Malignant neoplasm of bladder, unspecified; R31.9 Hematuria, unspecified; Z96.0 Presence of urogenital implants; Z20.822 Contact with and (suspected) exposure to COVID-19; Z88.2 Allergy status to sulfonamides; Z88.5 Allergy status to narcotic agent; Z88.6 Allergy status to analgesic agent; Z79.82 Long term (current) use of aspirin; Z79.899 Other long term (current) drug therapy
CPT/HCPCS: 36415; 50432; 74176; 80048; 80053; 81001; 82947; 83605; 83690; 83735; 85025; 85027; 85610; 87040; 87086; 87635; 94640; 99152; 99153; 99285; C1729; C1894; J0696; J1643; J2405; Q9967

== ENCOUNTER 2023-01-02 10:36 | Emergency (ER) | payer OTHER, SELFPAY ==
--- NOTE | 2023-01-02 11:05 | ED.GENADULT ---
HPI - General Adult General Chief complaint: General Medical Stated complaint: sent in by PCP unknown reason Related Data Home Medications Medication Instructions Recorded Confirmed lisinopril 10 mg tablet 15 mg PO DAILY 03/09/22 01/04/23 [id number] 15 ml PO DAILY 12/16/22 01/04/23 2.5 mg-50 mg-18 mg iron/15 mL oral liq (Geritol Tonic with Ferrex 18) aspirin 81 mg capsule 81 mg PO DAILY 12/16/22 01/04/23 cholecalciferol (vitamin D3) 25 50 mcg PO QAM 12/16/22 01/04/23 mcg (1,000 unit) chewable tablet (Vitamin D3) gabapentin 100 mg capsule 200 mg PO TID 12/28/22 01/04/23 ipratropium 20 mcg-albuterol 100 1 puff inhalation QID 12/28/22 01/04/23 mcg/actuation mist for inhalation (Combivent Respimat) pravastatin 40 mg tablet 40 mg PO DAILY 12/28/22 01/04/23 Previous Rx's Medication Instructions Recorded benralizumab 30 mg/mL subcutaneous 30 mg subcut Q8W #1 mL 12/07/22 syringe hydrocortisone 2.5 % topical cream 1 appl VA BID hemorrhoids #30 grams 12/16/22 with perineal applicator (Proctosol HC) linaclotide 145 mcg capsule 145 mcg PO QAM #30 caps 12/16/22 (Linzess) pantoprazole 40 mg tablet,delayed 40 mg PO DAILY 30 days #30 tabs 12/16/22 release (Protonix) Flovent HFA 110 mcg/actuation 1 puff inhalation BID #12 grams 12/19/22 aerosol inhaler (fluticasone propionate) oxybutynin chloride 10 mg 10 mg PO DAILY 30 days #30 tabs 12/21/22 tablet,extended release 24 hr dexamethasone 4 mg tablet 4 mg PO BID #30 tabs 01/04/23 nystatin 100,000 unit/mL oral 100,000 unit PO TID #100 mL 01/04/23 suspension ondansetron 8 mg disintegrating 8 mg PO Q8H PRN Nausea #30 tabs 01/04/23 tablet tramadol 50 mg tablet 50 mg PO Q6H PRN Pain #60 tabs 01/04/23 Allergies Allergy/AdvReac Type Severity Reaction Status Date / Time aspirin [ASA] Allergy Intermediate RASH Verified 01/04/23 12:51 ibuprofen [Ibuprofen] Allergy Intermediate RASH Verified 01/04/23 12:51 morphine [MORPHINE] Allergy Intermediate ITCHING Verified 01/04/23 12:51 naproxen [From NAPROSYN] Allergy Intermediate RASH,N/V Verified 01/04/23 12:51 oxycodone [OXYCODONE] Allergy Intermediate NAUSEA & Verified 01/04/23 12:51 VOMITING, RASH sulfamethoxazole AdvReac Severe Abdominal Verified 01/04/23 12:51 [From Bactrim] Pain trimethoprim [From Bactrim] AdvReac Severe Abdominal Verified 01/04/23 12:51 Pain PMFSH Past Medical History Medical History Asthma Bladder mass Emphysema lung GERD (gastroesophageal reflux disease) Hemorrhoids with complication History of COVID-19 Hyperlipidemia Hypertension Malignant neoplasm of urinary bladder Osteoarthritis UTI (urinary tract infection) Surgical History History of ERCP History of esophagogastroduodenoscopy (EGD) History of hysterectomy with bilateral oophorectomy Hx laparoscopic cholecystectomy Hx of colonoscopy (01/17/19) Hx of cystoscopy Family History Family History Father No problems noted. Mother Diabetes Brother Lung cancer Daughter Diabetes Social History Social History Household Members: Family Housing: Apartment Do you presently have visiting nurse or other home services: Yes Alcohol intake: never Patient Tobacco Use Status: Former Tobacco user Quit Date: 7 yrs ago Years Smoked: 55 Use of substances other than those prescribed or required for medical reasons: No Have you been hit, kicked, punched, or otherwise hurt by someone within the past year? If so, by whom?: No Do you feel safe in your current relationship?: Yes Do you have thoughts of harming others: None Do you have a plan to hurt others: No Plan Do you have the means to hurt others: No Recently lost weight without trying: Yes How much weight loss: 2-13 pounds Eating poorly because of decreased appetite: Yes Nutrition screen score: 4 service: No Current occupational status: retired Current occupation: rt handed Physical Exam ED Vital Signs: Vital Signs - 24 hr 01/02/23 11:06 Temperature 99.1 F Pulse Rate 102 H Respiratory Rate 18 Blood Pressure 149/80 H Pulse Oximetry 94 Oxygen Delivery Method Room Air BMI result Body Mass Index 19.6 Course Course Course Narrative: RME: 77-year-old female with past medical history of bladder cancer, permanent Lazo catheterization,?HLD, HTN,?recently discharged from our facility on 12/31 for hematuria s/p right nephrostomy tube placement by IR 12/29 presenting to the ED for ?Sonogram. States she was called by Dr. Blair's office this morning and told to come in, patient poor historian has no idea why she is here. Reports intermittent hematuria. Denies fever/chills, abdominal pain [place] tingled urine in lazo bag. R flank nephrostomy tube in place Labs, UA ordered. Dr. Blair [employer] Full HPI, ROS and PE to be performed by primary ED provider. -[id number]--spoke with Dr. Blair, unclear why patient is in the ED states his office did not call her, suspicious IR called patient and may have double booked for nephrostomy tube prior to her receiving the tube inpatient. Spoke with IR, they do not believe patient needs to be here either, no record of patient being contacted, patient already with tube which is actively draining. No imaging would be needed at this time. Dr. Blair states patient can follow-up in his office in 2 weeks > Labs already drawn will follow-up results and speak with patient Medical Decision Making Lab Data 01/02/23 11:40 01/02/23 11:40 Labs: Lab Results 01/02/23 01/02/23 01/02/23 Range/Units 11:40 11:40 11:40 WBC 8.9 (4.8-10.8) X10*3/uL RBC 3.52 L (4.20-5.50) X10*6/uL Hgb 9.4 L (12.0-16.0) g/dl Hct 31.1 L (37.0-47.0) % MCV 88.4 (80.0-98.0) fL MCH 26.7 L (27.0-33.0) pg MCHC 30.2 L (31.0-35.0) g/dl RDW 15.4 (11.0-16.0) % Plt Count 507 H (160-400) X10*3/uL MPV 10.1 (9.4-12.3) fL Immature Gran % (Auto) 0.5 H (0.0-0.4) % Neut % (Auto) 68.6 (45-73) % Lymph % (Auto) 19.4 L (20-40) % [place] % (Auto) 11.4 H (2-11) % Eos % (Auto) 0.0 (0-4) % Baso % (Auto) 0.1 (0-2) % Lymph # (Auto) 1.7 (1.2-4.9) X10*3/uL [place] # (Auto) 1.0 (0.1-1.2) X10*3/uL Eos # (Auto) 0.0 (0.0-0.4) X10*3/uL Baso # (Auto) 0.0 (0.0-0.2) X10*3/uL Abs Immat Gran (auto) 0.04 H (0.00-0.03) X10*3/uL Absolute Neuts (auto) 6.1 (2.0-8.3) x10*3/uL Absolute Nucleated RBC 0.000 (0.0-0.012) X10*3/uL Nucleated RBC % (auto) 0.0 (0.0-0.2) /100WBC PT 11.3 (10.0-13.1) SEC INR 1.0 (0.9-1.1) Sodium 145 (135-145) mmol/L Potassium 4.2 (3.3-5.1) mmol/L Chloride 108 (96-108) mmol/L Carbon Dioxide 28 (22-29) mmol/L Anion Gap 13 (12-20) BUN 14 (9-16) mg/dL Creatinine 1.87 H (0.5-1.4) mg/dL Estim Creat Clear Calc 20.3 Estimated GFR 26 Random Glucose 98 (60-115) mg/dL Calcium 8.5 D (8.4-10.2) mg/dL Total Bilirubin 0.7 (0.0-1.0) mg/dL Direct Bilirubin 0.2 (0.0-0.5) mg/dL AST 12 (5-31) U/L ALT 5 (0-31) U/L Alkaline Phosphatase 79 (39-117) U/L Total Protein 5.6 L (6.5-8.0) g/dL Albumin 3.1 L (3.5-5.0) g/dL Discharge Plan Discharge Clinical Impression: Weakness Patient Disposition: Elopement Prescriptions: No Action benralizumab 30 mg/mL syringe 30 mg subcut Q8W Qty: 1 11RF Flovent HFA 110 mcg/actuation HFA aerosol inhaler 1 puff inhalation BID Qty: 12 3RF nystatin 100,000 unit/mL Suspension 100,000 unit PO TID Qty: 100 2RF Rx Instructions: swish and swallow tid tramadol 50 mg Tablet 50 mg PO Q6H PRN (Reason: Pain) Qty: 60 0RF ondansetron 8 mg Tablet,Disintegrating 8 mg PO Q8H PRN (Reason: Nausea) Qty: 30 3RF dexamethasone 4 mg Tablet 4 mg PO BID Qty: 30 3RF Rx Instructions: for2 days after chemo pravastatin 40 mg tablet 40 mg PO DAILY Combivent Respimat 20-100 mcg/actuation mist 1 puff INHALATION QID gabapentin 100 mg capsule 200 mg PO TID lisinopril 10 mg tablet 15 mg PO DAILY Geritol Tonic with Ferrex 18 2.5 mg-50 mg-18 iron/15 mL liquid 15 ml PO DAILY cholecalciferol (vitamin D3) [Vitamin D3] 25 mcg (1,000 unit) tablet,chewable 50 mcg PO QAM aspirin 81 mg capsule 81 mg PO DAILY Linzess 145 mcg capsule 145 mcg PO QAM Qty: 30 6RF hydrocortisone [Proctosol HC] 2.5 % cream with perineal applicator 1 appl VA BID Qty: 30 6RF Rx Instructions: BE SURE TO INCLUDE RECTAL APPICATOR!! pantoprazole [Protonix] 40 mg tablet,delayed release (DR/EC) 40 mg PO DAILY 30 Days Qty: 30 1RF oxybutynin chloride 10 mg tablet extended release 24hr 10 mg PO DAILY 30 Days Qty: 30 1RF Discharge Date/Time: 01/02/23 16:30
[2023-01-02 11:06] VITALS: BP 149/80; PULSE 102; RESP 18; TEMP 37.3; O2SAT 94; BMI 19.6
[2023-01-02 11:45] LABS: MANUAL DIFF FLAG NO
[2023-01-02 11:51] LABS: Basophils Percent Auto 0.1 % (0-2); Hematocrit 31.1 % (37.0-47.0); Hemoglobin 9.4 g/dl (12.0-16.0); Imm Gran Abs Auto 0.04 X10*3/uL (0.00-0.03); Imm Gran Pct Auto 0.5 % (0.0-0.4); Lymphocytes Absolute Auto 1.7 X10*3/uL (1.2-4.9); Lymphocytes Percent Auto 19.4 % (20-40); Mean Corpuscular HGB Conc 30.2 g/dl (31.0-35.0); Mean Corpuscular Hemoglobin 26.7 pg (27.0-33.0); Mean Corpuscular Volume 88.4 fL (80.0-98.0); Mean Platelet Volume 10.1 fL (9.4-12.3); Monocytes Percent Auto 11.4 % (2-11); Neutrophils Absolute Auto 6.1 x10*3/uL (2.0-8.3); Neutrophils Percent Auto 68.6 % (45-73); Platelet Count 507 X10*3/uL (160-400); Red Blood Count 3.52 X10*6/uL (4.20-5.50); Red Cell Distribution Width 15.4 % (11.0-16.0); White Blood Count 8.9 X10*3/uL (4.8-10.8)
[2023-01-02 11:52] LABS: Prothrombin Time 11.3 SEC (10.0-13.1)
[2023-01-02 12:00] LABS: Alanine Aminotransferase 5 U/L (0-31); Albumin Level 3.1 g/dL (3.5-5.0); Alkaline Phosphatase 79 U/L (39-117); Anion Gap 13 (12-20); Aspartate Amino Transferase 12 U/L (5-31); Bilirubin Direct 0.2 mg/dL (0.0-0.5); Bilirubin Total 0.7 mg/dL (0.0-1.0); Blood Urea Nitrogen 14 mg/dL (9-16); Calcium 8.5 mg/dL (8.4-10.2); Carbon Dioxide 28 mmol/L (22-29); Chloride 108 mmol/L (96-108); Creatinine Clr Calc Pharmacy 20.3; Estimated Glomerular Filt Rate 26; Glucose Random 98 mg/dL (60-115); Potassium 4.2 mmol/L (3.3-5.1); Sodium 145 mmol/L (135-145); Total Protein 5.6 g/dL (6.5-8.0)
== END 2023-01-02 16:30 | disposition left against medical advice (07) ==
PROVIDERS: Physician Assistant; Emergency Provider Emergency Medicine; PCP General Practice
DX: R53.1 Weakness (principal); C67.9 Malignant neoplasm of bladder, unspecified; Z87.440 Personal history of urinary (tract) infections
CPT/HCPCS: 36415; 80048; 80076; 85025; 85610; 99281; 99283

== ENCOUNTER → 2023-01-13 08:32 | Outpatient (BNVA) | payer OTHER, SELFPAY | PROVIDERS: PCP General Practice; Visit Provider Urology | DX: N13.30 Unspecified hydronephrosis (principal); N17.9 Acute kidney failure, unspecified; C67.9 Malignant neoplasm of bladder, unspecified | CPT/HCPCS: 99212 ==

== ENCOUNTER 2023-01-31 12:14 | Day surgery (SDC) | payer OTHER, SELFPAY ==
[2023-01-31] VITALS (8 sets, daily range): BP systolic 106–132; BP diastolic 49–73; PULSE 89–105; RESP 14–18; TEMP 36.2–37.1; O2SAT 96–100; BMI 20.5
--- NOTE | ~2023-01-31 | IR_ITS ---
EXAMINATION: XR RIGHT URETERAL STENT PLACEMENT CLINICAL INFORMATION: Bladder cancer. Change left nephrostomy catheter to a nephroureteral stent. COMPARISON: None available. TECHNIQUE: Following explaining change of nephrostomy to nephroureteral stent catheter procedure, benefits and risk via a social work case manager a written consent was obtained. Patient was placed prone and the area surrounding the nephrostomy was cleaned and draped in usual sterile manner. The catheter was flushed followed by contrast injection and revealed contrast pooling in the distal aorta. A Glidewire was inserted through the catheter into the distal ureter; however, that could not be advanced into the bladder. Subsequently after inserting several other wires and catheters a simple long straight catheter was inserted to the level of distal ureter followed by a glidewire. Manipulating the glidewire it was slipped into the bladder and a catheter was advanced. The simple straight catheter was then removed and a nephroureteral stent was advanced over the Glidewire. During the manipulation there is extravasation of contrast into the peripelvic system, likely pelvic wall weakness. The nephroureteral stent was then anchored to the skin. Repeat imaging revealed contrast in the bladder. Sterile dressing applied postprocedure. The catheter was capped with a bivalve. Conscious sedation was utilized during the exam. Patient tolerated the procedure extremely well. FINDINGS: On initial nephrostomy injection there was obstruction of distal ureter. There is some extravasation of contrast in the peripelvic region. After significant manipulation a nephroureteral stent was extended into the bladder. FLUOROSCOPY TIME: 24 minutes. DOSE AREA PRODUCT: 5807 uGy-m2 (microgray-meter squared). IR/IR ureter stent v иван pel xchg IMPRESSION: Successful fluoroscopy-guided exchange of nephrostomy catheter with a nephroureteral stent. The stent catheter tip lies within the bladder. Patient was asked to see Dr. Severo Blair the next day for antibiotics.
--- NOTE | 2023-01-31 19:46 | PC.NURSE ---
[address] ANAYA CONVEYED PER IR DR. TALAMANTES PATIENT WILL NEED POST OP ABX ORDERED. DR. ANAYA GIVEN PATIENT PHARMACY INFORMATION.
== END 2023-01-31 20:19 | disposition home or self-care (01) ==
PROVIDERS: Radiology Diagnostic Radiology; PCP General Practice; Visit Provider Urology
DX: N13.30 Unspecified hydronephrosis (principal); C67.9 Malignant neoplasm of bladder, unspecified
CPT/HCPCS: 50387; 50434; 99152; 99153; C1729; C1769; C1887; C1892; C1894; J0690; J2250; J3010; Q9967

== ENCOUNTER 2023-03-07 11:16 | Outpatient (REF) | payer OTHER, SELFPAY | END 2023-03-07 11:17 | disposition home or self-care (01) | LOC: HO.MDS 11:16 | PROVIDERS: Visit Provider Internal Medicine Pulmonary Disease | DX: J45.50 Severe persistent asthma, uncomplicated (principal) | CPT/HCPCS: 96372 ==

== ENCOUNTER 2023-03-08 10:11 | Outpatient (AMB) | payer OTHER, SELFPAY ==
--- NOTE | 2023-03-08 10:46 | MHC.OFFVIS ---
Intake Intake Visit Reasons: 2m follow up Intake Note: Patient is present for follow up bladder cancer Urology Medications: none Blood Thinner: aspirin College Sports Assistant Required: Yes Accompanied by: Self / Same As Patient Allergies aspirin [ASA] Allergy (Intermediate, Verified 03/17/23 09:46) RASH ibuprofen [Ibuprofen] Allergy (Intermediate, Verified 03/17/23 09:46) RASH morphine [MORPHINE] Allergy (Intermediate, Verified 03/17/23 09:46) ITCHING naproxen [From NAPROSYN] Allergy (Intermediate, Verified 03/17/23 09:46) RASH,N/V oxycodone [OXYCODONE] Allergy (Intermediate, Verified 03/17/23 09:46) NAUSEA & VOMITING, RASH sulfamethoxazole [From Bactrim] Adverse Reaction (Severe, Verified 03/17/23 09:46) Abdominal Pain trimethoprim [From Bactrim] Adverse Reaction (Severe, Verified 03/17/23 09:46) Abdominal Pain HPI HPI Comments History of Present Illness Details Altaf is a pleasant female. She is a patient of . 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 The bladder is partially distended with irregular wall thickening and trabeculated appearance. Dilated appearance of both distal ureters. Moderate right hydronephrosis. Mild left hydronephrosis. No lymphadenopathy. Bladder cancer superficial high-grade 2018 - disease progression - 12/01 muscle invasive bladder cancer Initial diagnosis with Dr. Hankins TURBT 05/30 high-grade superficial noninvasive disease Adjuvant therapy BCG June 2019 Surveillance cystoscopy - 04/30 NAD, 10/01 NAD, 10/02 NAD - trabeculated bladder with BCG change PFSH Medical History Asthma Bladder mass Emphysema lung GERD (gastroesophageal reflux disease) Hemorrhoids with complication History of COVID-19 Hyperlipidemia Hypertension Malignant neoplasm of urinary bladder Osteoarthritis UTI (urinary tract infection) Surgical History History of ERCP History of esophagogastroduodenoscopy (EGD) History of hysterectomy with bilateral oophorectomy Hx laparoscopic cholecystectomy Hx of colonoscopy (01/17/19) Hx of cystoscopy Family History Father No problems noted. Mother Diabetes Brother Lung cancer Daughter Diabetes Social History Household Members: Family Housing: Apartment Do you presently have visiting nurse or other home services: Yes Alcohol intake: never Patient Tobacco Use Status: Former Tobacco user Quit Date: 7 yrs ago Years Smoked: 56 service: No Current occupational status: retired Current occupation: rt handed Review of Systems Const Denies chills and Denies fever(s) Card Reports no additional complaints and Denies syncope Resp Denies cough GI Denies abdominal pain and Denies heartburn Reports as per HPI and Denies change in libido Neuro Denies syncope Psych Denies change in libido Endo Denies change in libido Physical Exam Const General: cooperative, healthy appearing, comfortable and no acute distress Orientation/consciousness: patient oriented x3 HEENT Face and sinus: Yes normal facial exam Mouth: moist mucous membranes Neck Neck: Yes normal visual inspection, Yes full ROM and Yes trachea midline Chest Chest palpation & inspection: normal inspection of the chest Resp Effort & Inspection: normal respiratory effort, able to speak in complete sentences and no respiratory distress GI Inspection: Yes normal to inspection Back/Spine/Pelvis Cervical Spine: normal cervical lordosis Thoracic/Lumbar Spine: thoracic and lumbar spine normal to inspection Skin General skin exam: no rashes or lesions noted Neuro General: patient oriented x3, gait normal, tone normal and moves all extremities Extrem General: Yes normal to inspection and Yes capillary refill normal Assessment & Plan Assessment & Plan (1) 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 No major barriers to patient understanding were identified. An opportunity to ask questions regarding the treatment plan was provided. All questions were answered. The patient expressed understanding and agreement with the above treatment plan. The patient is aware they should contact our office by phone for worsening of their current condition or the appearance of new urologic symptoms. Compliance is encouraged with any medications and followup testing that is ordered. It is a privilege to participate in the urologic care of your patient. If you have any questions or concerns regarding treatment for the above conditions, or other urologic issues, please do not hesitate to contact me. The office telephone contact is [phone]. This note is constructed using voice recognition software. While every effort has been made to ensure accuracy journeyman sheet metal worker errors may have been included. Yours sincerely, Dr Severo Blair MD, [facility] - Urology Providers of Expert, Compassionate Care for the Genitourinary System Coding Level of Care Code Est Pt Level 3 (49666) Diagnoses 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 N13.30; C67.9
== END 2023-03-08 11:18 | disposition home or self-care (01) ==
PROVIDERS: PCP General Practice; Visit Provider Urology
DX: N13.30 Unspecified hydronephrosis (principal); C67.9 Malignant neoplasm of bladder, unspecified
CPT/HCPCS: 99213

== ENCOUNTER → 2023-03-08 10:11 | Outpatient (BNVA) | payer OTHER, SELFPAY | PROVIDERS: PCP General Practice; Visit Provider Urology | DX: N13.30 Unspecified hydronephrosis (principal); C67.9 Malignant neoplasm of bladder, unspecified | CPT/HCPCS: 99212 ==

== ENCOUNTER 2023-03-17 09:35 | Emergency (ER) | payer OTHER, SELFPAY ==
[2023-03-17 09:46] VITALS: BP 142/79; PULSE 97; RESP 19; TEMP 36.6; O2SAT 99; BMI 18.2
[2023-03-17 10:33] LABS: Anion Gap 13 (12-20); Blood Urea Nitrogen 12 mg/dL (9-16); Calcium 9.3 mg/dL (8.4-10.2); Carbon Dioxide 26 mmol/L (22-29); Chloride 106 mmol/L (96-108); Creatinine Clr Calc Pharmacy 37.1; Estimated Glomerular Filt Rate 57; Glucose Random 104 mg/dL (60-115); Potassium 4.6 mmol/L (3.3-5.1); Sodium 140 mmol/L (135-145)
--- NOTE | 2023-03-17 10:57 | ED.FEMALEGU ---
HPI - Female Genitourinary General Chief complaint: Urogenital-Female Stated complaint: abd pain/ fever 103? Time Seen by Provider: 03/17/23 10:14 History of Present Illness HPI Narrative: Patient is a 77-year-old female presents today with having fever pain and flank area. Positive fever at home yesterday up to 102. Patient has a history of bladder cancer. Status post nephrostomy tube on the right side. Last chemotherapy was approximately 9 days ago. Patient complaining of generalized malaise weakness. No coughing or congestion or upper respiratory symptoms. No diaphoresis. She is from home. Patient did note there is drainage from the right nephrostomy tube Related Data Home Medications Medication Instructions Recorded Confirmed lisinopril 10 mg tablet 15 mg PO DAILY 03/09/22 02/15/23 [id number]-A4-qate-methn-choln 15 ml PO DAILY 12/16/22 02/15/23 2.5 mg-50 mg-18 mg iron/15 mL oral liq (Geritol Tonic with Ferrex 18) aspirin 81 mg capsule 81 mg PO DAILY 12/16/22 02/15/23 cholecalciferol (vitamin D3) 25 50 mcg PO QAM 12/16/22 02/15/23 mcg (1,000 unit) chewable tablet (Vitamin D3) gabapentin 100 mg capsule 200 mg PO TID 12/28/22 02/15/23 ipratropium 20 mcg-albuterol 100 1 puff inhalation QID 12/28/22 02/15/23 mcg/actuation mist for inhalation (Combivent Respimat) pravastatin 40 mg tablet 40 mg PO DAILY 12/28/22 02/15/23 nitrofurantoin macrocrystal 100 mg 0 mg PO DAILY 03/08/23 capsule Previous Rx's Medication Instructions Recorded benralizumab 30 mg/mL subcutaneous 30 mg subcut Q8W #1 mL 12/07/22 syringe hydrocortisone 2.5 % topical cream 1 appl ND BID hemorrhoids #30 grams 12/16/22 with perineal applicator (Proctosol HC) linaclotide 145 mcg capsule 145 mcg PO QAM #30 caps 12/16/22 (Linzess) pantoprazole 40 mg tablet,delayed 40 mg PO DAILY 30 days #30 tabs 12/16/22 release (Protonix) Flovent HFA 110 mcg/actuation 1 puff inhalation BID #12 grams 12/19/22 aerosol inhaler (fluticasone propionate) oxybutynin chloride 10 mg 10 mg PO DAILY 30 days #30 tabs 12/21/22 tablet,extended release 24 hr dexamethasone 4 mg tablet 4 mg PO BID #30 tabs 01/04/23 nystatin 100,000 unit/mL oral 100,000 unit PO TID #100 mL 01/04/23 suspension ondansetron 8 mg disintegrating 8 mg PO Q8H PRN Nausea #30 tabs 01/04/23 tablet polyethylene glycol 3350 17 gram 17 g PO DAILY #30 ea 01/16/23 oral powder packet (Miralax) sennosides 8.6 mg-docusate sodium 1 tab-cap PO BEDTIME #30 tabs 01/16/23 50 mg tablet (Senna with Docusate Sodium) tramadol 50 mg tablet 50 mg PO Q6H PRN Pain #60 tabs 03/10/23 levofloxacin 500 mg tablet 500 mg PO DAILY #7 tabs 03/17/23 Allergies Allergy/AdvReac Type Severity Reaction Status Date / Time aspirin [ASA] Allergy Intermediate RASH Verified 03/17/23 09:46 ibuprofen [Ibuprofen] Allergy Intermediate RASH Verified 03/17/23 09:46 morphine [MORPHINE] Allergy Intermediate ITCHING Verified 03/17/23 09:46 naproxen [From NAPROSYN] Allergy Intermediate RASH,N/V Verified 03/17/23 09:46 oxycodone [OXYCODONE] Allergy Intermediate NAUSEA & Verified 03/17/23 09:46 VOMITING, RASH sulfamethoxazole AdvReac Severe Abdominal Verified 03/17/23 09:46 [From Bactrim] Pain trimethoprim [From Bactrim] AdvReac Severe Abdominal Verified 03/17/23 09:46 Pain Review of Systems Review of Systems: Positive fever Positive right flank pain Yes all other systems are reviewed and are negative PMFSH Past Medical History Attestation statement: The following information was validated with the patient. Medical History Asthma Bladder mass Emphysema lung GERD (gastroesophageal reflux disease) Hemorrhoids with complication History of COVID-19 Hyperlipidemia Hypertension Malignant neoplasm of urinary bladder Osteoarthritis UTI (urinary tract infection) Surgical History History of ERCP History of esophagogastroduodenoscopy (EGD) History of hysterectomy with bilateral oophorectomy Hx laparoscopic cholecystectomy Hx of colonoscopy (01/17/19) Hx of cystoscopy Family History Family History Father No problems noted. Mother Diabetes Brother Lung cancer Daughter Diabetes Social History Social History Household Members: Family Housing: Apartment Do you presently have visiting nurse or other home services: Yes Alcohol intake: never Patient Tobacco Use Status: Former Tobacco user Quit Date: 7 yrs ago Years Smoked: 55 Advance Directives: No Patient : No service: No Current occupational status: retired Current occupation: rt handed Physical Exam Vital Signs: Vital Signs: Last Vital Signs Temp 98.4 F 03/17/23 12:52 Pulse 87 03/17/23 12:52 Resp 18 03/17/23 12:52 BP 153/60 H 03/17/23 12:52 Pulse Ox 100 03/17/23 12:52 O2 Del Method Room Air 03/17/23 12:52 BMI result Body Mass Index 18.2 Appearance: Alert. Oriented X3. No acute distress. Eyes: Pupils equal, round and reactive to light. ENT: Pharynx normal. Neck: Normal inspection. Neck supple. No lymph nodes noted. No crepitus CVS: Normal heart rate and rhythm. Pulses normal. Normal S1 and S2 Respiratory: No respiratory distress. Breath sounds normal. No Wheezing. No rales Abdomen: Soft and nontender. No rigidity. No distention. good BS x4 positive right flank pain Skin: Skin warm and dry. Normal skin color. Normal skin turgor. Extremities: No lower extremity edema. Neurovascular intact to all extremities. No Lacerations. No Rash Neuro: Oriented X 3. No motor deficit. No sensory deficit. Moving all extermities. No slurred speech Medications Administered Discontinued Medications Generic Name Dose Route Start Last Admin Trade Name Freq PRN Reason Stop Dose Admin Sodium Chloride 1,000 mls @ 999 mls/hr 03/17/23 11:00 03/17/23 12:53 Ns IV 03/17/23 12:00 Infused .Q1H1M HERNESTO Infusion Levofloxacin 500 mg in 100 mls @ 100 mls/hr 03/17/23 12:04 03/17/23 12:53 Levaquin IV 03/17/23 13:03 100 mls/hr ONCE ONE Administration Medical Decision Making Medical Decision Making [facility] Narrative: Patient's white count is 4.4 with over 55% of neutrophils. Not neutropenic. No fever documented here in the emergency department. My interpretation patient's chest x-ray is grossly negative for any acute evidence of pneumonia. My interpretation patient's CT scan showed no hydro no gross obstruction. Patient's urine did show a chronic colonization question and that is causing patient's fever of 102 at home yesterday. Lactate is 1.4 no overt signs of sepsis. Patient's case discussed with oncology. Given no fever here in the emergency department. Patient well-appearing. Okay with discharging patient home continuing the Levaquin on an outpatient basis. Levaquin was chosen after reviewing patient's old chart. Sensitivity was considered. Currently in stable condition Differential Diagnosis Differential Diagnoses: The differential diagnosis associated with the presentation includes Urinary tract infection, dehydration, fever, pneumonia, perforation, nephrostomy tube not working Consult Healthcare Provider Management of the patient was discussed with: Associate Accountant Oncology Lab Data [facility] Lab Attestation statement: I reviewed the patient's lab results. 03/17/23 10:01 03/17/23 10:01 Labs: Lab Results 03/17/23 03/17/23 03/17/23 Range/Units 10:01 10:01 11:22 WBC 4.4 L (4.8-10.8) X10*3/uL RBC 2.89 L (4.20-5.50) X10*6/uL Hgb 8.1 L (12.0-16.0) g/dl Hct 26.1 L (37.0-47.0) % MCV 90.3 (80.0-98.0) fL MCH 28.0 (27.0-33.0) pg MCHC 31.0 (31.0-35.0) g/dl RDW 16.1 H (11.0-16.0) % Plt Count 116 L D (160-400) X10*3/uL MPV Not Reportable Immature Gran % (Auto) 0.7 H (0.0-0.4) % Neut % (Auto) 55.4 (45-73) % Lymph % (Auto) 24.5 (20-40) % [place] % (Auto) 19.4 H (2-11) % Eos % (Auto) 0.0 (0-4) % Baso % (Auto) 0.0 (0-2) % Lymph # (Auto) 1.1 L (1.2-4.9) X10*3/uL [place] # (Auto) 0.9 (0.1-1.2) X10*3/uL Eos # (Auto) 0.0 (0.0-0.4) X10*3/uL Baso # (Auto) 0.0 (0.0-0.2) X10*3/uL Abs Immat Gran (auto) 0.03 (0.00-0.03) X10*3/uL Absolute Neuts (auto) 2.5 (2.0-8.3) x10*3/uL Absolute Nucleated RBC 0.000 (0.0-0.012) X10*3/uL Nucleated RBC % (auto) 0.0 (0.0-0.2) /100WBC Smear Tech's Comments VERIFIED Sodium 140 (135-145) mmol/L Potassium 4.6 (3.3-5.1) mmol/L Chloride 106 (96-108) mmol/L Carbon Dioxide 26 (22-29) mmol/L Anion Gap 13 (12-20) BUN 12 (9-16) mg/dL Creatinine 0.95 (0.5-1.4) mg/dL Estim Creat Clear Calc 37.1 Estimated GFR 57 Random Glucose 104 (60-115) mg/dL Lactic Acid 1.4 (0.5-2.0) mmol/L Calcium 9.3 (8.4-10.2) mg/dL Urine Color Urine Appearance Urine pH (5.0-9.0) Ur Specific [place] (1.005-1.025) Urine Protein (Neg-Trace) mg/dL Urine Glucose (UA) (Negative) mg/dL Urine Ketones (Negative) mg/dL Urine Blood (Negative) Urine Nitrite (Negative) Ur Leukocyte Esterase (Negative) Urine RBC (0-2) /HPF Urine WBC (0-5) /HPF Ur Squamous Epith Cells (0-2) /HPF Urine Bacteria (None Seen) Hyaline Casts (0-2) /LPF 03/17/23 Range/Units 11:37 WBC (4.8-10.8) X10*3/uL RBC (4.20-5.50) X10*6/uL Hgb (12.0-16.0) g/dl Hct (37.0-47.0) % MCV (80.0-98.0) fL MCH (27.0-33.0) pg MCHC (31.0-35.0) g/dl RDW (11.0-16.0) % Plt Count (160-400) X10*3/uL MPV Immature Gran % (Auto) (0.0-0.4) % Neut % (Auto) (45-73) % Lymph % (Auto) (20-40) % [place] % (Auto) (2-11) % Eos % (Auto) (0-4) % Baso % (Auto) (0-2) % Lymph # (Auto) (1.2-4.9) X10*3/uL [place] # (Auto) (0.1-1.2) X10*3/uL Eos # (Auto) (0.0-0.4) X10*3/uL Baso # (Auto) (0.0-0.2) X10*3/uL Abs Immat Gran (auto) (0.00-0.03) X10*3/uL Absolute Neuts (auto) (2.0-8.3) x10*3/uL Absolute Nucleated RBC (0.0-0.012) X10*3/uL Nucleated RBC % (auto) (0.0-0.2) /100WBC Smear Tech's Comments Sodium (135-145) mmol/L Potassium (3.3-5.1) mmol/L Chloride (96-108) mmol/L Carbon Dioxide (22-29) mmol/L Anion Gap (12-20) BUN (9-16) mg/dL Creatinine (0.5-1.4) mg/dL Estim Creat Clear Calc Estimated GFR Random Glucose (60-115) mg/dL Lactic Acid (0.5-2.0) mmol/L Calcium (8.4-10.2) mg/dL Urine Color Yellow Urine Appearance Cloudy Urine pH 7.0 (5.0-9.0) Ur Specific [place] 1.010 (1.005-1.025) Urine Protein 300 (3+) H (Neg-Trace) mg/dL Urine Glucose (UA) Negative (Negative) mg/dL Urine Ketones Negative (Negative) mg/dL Urine Blood Small (1+) H (Negative) Urine Nitrite Negative (Negative) Ur Leukocyte Esterase Large (3+) H (Negative) Urine RBC >20 H (0-2) /HPF Urine WBC >50 H (0-5) /HPF Ur Squamous Epith Cells 0-2 (0-2) /HPF Urine Bacteria 2+ (None Seen) Hyaline Casts 3-5 (0-2) /LPF Independent Interpretation I performed an independent interpretation of an: Plain X-Ray Interpretation: My interpretation of patient's chest x-ray grossly negative for any acute evidence of pneumonia Radiology Impression Discussion of test interpretation with radiology: I have reviewed the radiologist's reading. External Record Review External record reviewed: Inpatient record Chronic Conditions Patient?s care impacted by: Hypertension Bladder cancer status post nephrostomy tube on chemo Critical Care Time Critical Care Time Critical Care Time: Yes Total Critical Care Time: 40 Attestation: I have personally provided 40 minutes of critical care time exclusive of time spent on separately billable procedures. Time includes review of lab data, radiology results, discussion with consultants, and monitoring for potential decompensation. Interventions were performed as documented above Discharge Plan Discharge Clinical Impression: Fever Patient Disposition: Home, Self-Care Instructions: Fever in Adults (ED) Prescriptions: New levofloxacin 500 mg tablet 500 mg PO DAILY Qty: 7 0RF No Action benralizumab 30 mg/mL syringe 30 mg subcut Q8W Qty: 1 11RF Flovent HFA 110 mcg/actuation HFA aerosol inhaler 1 puff inhalation BID Qty: 12 3RF nystatin 100,000 unit/mL Suspension 100,000 unit PO TID Qty: 100 2RF Rx Instructions: swish and swallow tid ondansetron 8 mg Tablet,Disintegrating 8 mg PO Q8H PRN (Reason: Nausea) Qty: 30 3RF dexamethasone 4 mg Tablet 4 mg PO BID Qty: 30 3RF Rx Instructions: for2 days after chemo polyethylene glycol 3350 [Miralax] 17 gram Powder In Packet 17 g PO DAILY Qty: 30 3RF sennosides-docusate sodium [Senna with Docusate Sodium] 8.6-50 mg Tablet 1 tab-cap PO BEDTIME Qty: 30 3RF tramadol 50 mg Tablet 50 mg PO Q6H PRN (Reason: Pain) Qty: 60 0RF pravastatin 40 mg tablet 40 mg PO DAILY Combivent Respimat 20-100 mcg/actuation mist 1 puff INHALATION QID gabapentin 100 mg capsule 200 mg PO TID lisinopril 10 mg tablet 15 mg PO DAILY Geritol Tonic with Ferrex 18 2.5 mg-50 mg-18 iron/15 mL liquid 15 ml PO DAILY cholecalciferol (vitamin D3) [Vitamin D3] 25 mcg (1,000 unit) tablet,chewable 50 mcg PO QAM aspirin 81 mg capsule 81 mg PO DAILY Linzess 145 mcg capsule 145 mcg PO QAM Qty: 30 6RF hydrocortisone [Proctosol HC] 2.5 % cream with perineal applicator 1 appl ND BID Qty: 30 6RF Rx Instructions: BE SURE TO INCLUDE RECTAL APPICATOR!! pantoprazole [Protonix] 40 mg tablet,delayed release (DR/EC) 40 mg PO DAILY 30 Days Qty: 30 1RF nitrofurantoin macrocrystal 100 mg capsule 0 mg PO DAILY oxybutynin chloride 10 mg tablet extended release 24hr 10 mg PO DAILY 30 Days Qty: 30 1RF Referrals: Destiney Palacios MD [Physician] - 03/21/23
[2023-03-17 11:41] LABS: Lactic Acid 1.4 mmol/L (0.5-2.0)
--- NOTE | 2023-03-17 11:47 | PC.NURSE ---
iv established, fluids infusing. urine obtained and sent.
[2023-03-17 12:52] VITALS: BP 153/60; PULSE 87; RESP 18; TEMP 36.9; O2SAT 100
== END 2023-03-17 14:18 | disposition home or self-care (01) ==
PROVIDERS: Emergency Provider Emergency Medicine Emergency Medical Services; PCP General Practice
DX: R50.9 Fever, unspecified (principal); R10.30 Lower abdominal pain, unspecified; R05.9 Cough, unspecified; Z87.891 Personal history of nicotine dependence; Z79.899 Other long term (current) drug therapy
CPT/HCPCS: 36415; 71045; 74176; 80048; 81001; 83605; 85025; 87040; 87086; 96361; 96365; 96366; 99284; 99285; J1956

== ENCOUNTER 2023-04-13 08:53 | Outpatient (AMB) | payer OTHER, SELFPAY ==
--- NOTE | 2023-04-13 09:30 | AM.OFFVISNUR ---
Intake Intake Visit Reasons: V.T. (Per Dr Sanchez- 03/30)/nephrostomy site eval Allergies aspirin [ASA] Allergy (Intermediate, Verified 03/17/23 09:46) RASH ibuprofen [Ibuprofen] Allergy (Intermediate, Verified 03/17/23 09:46) RASH morphine [MORPHINE] Allergy (Intermediate, Verified 03/17/23 09:46) ITCHING naproxen [From NAPROSYN] Allergy (Intermediate, Verified 03/17/23 09:46) RASH,N/V oxycodone [OXYCODONE] Allergy (Intermediate, Verified 03/17/23 09:46) NAUSEA & VOMITING, RASH sulfamethoxazole [From Bactrim] Adverse Reaction (Severe, Verified 03/17/23 09:46) Abdominal Pain trimethoprim [From Bactrim] Adverse Reaction (Severe, Verified 03/17/23 09:46) Abdominal Pain Office Procedures Bladder/Catheter Procedure Details: pt presents for voiding trial- 90 mls sterile water instilled into bladder (pt could not tolerate 120 mls). 16 fr cath removed, pt able to urinate 60 mls. scanned for [address] Sanchez to room to eval nephrostomy tube site- tube has moved out about an inch, will need to be replaced sooner than when expected (end of Apr), per Dr Sanchez order for IR placed, pelvic MRI placed, pt to have cysto at Apr 29 follow up. [id number] of Bladder Procedure code (CPT) selection complete Post Void Residual Post Residual Void Post Void Residual (PVR): 40 12003-[id number] Void Residual by ultrasound Coding Diagnoses CPT Codes Bladder/Catheter Procedure - CPT: 48310-Kojtehaidu of Bladder ([id number]) Post Residual Void - PVR CPT Code: 44912-Fwng Void Residual by ultrasound ([id number]) Assessment & Plan Assessment & Plan Orders: Orders AMB Bladder/Catheter Procedure Today C67.9 - Malignant neoplasm of bladder, unspecified, N13.30 - Unspecified hydronephrosis, N32.89 - Other specified disorders of bladder AMB Post Void Residual by ultrasound Today C67.9 - Malignant neoplasm of bladder, unspecified, N13.30 - Unspecified hydronephrosis Medications: Discontinued tramadol 50 mg PO Q6H PRN 60 tabs 0RF Pain
== END 2023-04-13 10:28 | disposition home or self-care (01) ==
LOC: HO.HUSH 08:53
PROVIDERS: PCP General Practice; Visit Provider Urology
DX: Z43.6 Encounter for attention to other artificial openings of urinary tract (principal)

== ENCOUNTER → 2023-04-13 08:53 | Outpatient (BNVA) | payer OTHER, SELFPAY | PROVIDERS: PCP General Practice; Visit Provider Urology | DX: C67.9 Malignant neoplasm of bladder, unspecified (principal); N32.89 Other specified disorders of bladder; N13.30 Unspecified hydronephrosis | CPT/HCPCS: 51700; 51798 ==

== ENCOUNTER 2023-04-25 13:14 | Day surgery (SDC) | payer OTHER, SELFPAY ==
--- NOTE | ~2023-04-25 | IR_ITS ---
EXAMINATION: FLUOROSCOPY NEPHROSTOGRAM CLINICAL INFORMATION: Bladder CA After informed and written consent was obtained an official timeout was performed immediately prior to the procedure. I was personally responsible for the administration of moderate sedation services, all requirements were followed, an independent trained observer was utilized. COMPARISON: The study dated 01/31/2023 TECHNIQUE: Under fluoroscopic guidance the previously placed nephroureterostomy tube was removed over a Glidewire. A new 8.5 [place] nephroureterostomy tube was placed. The tube is in good position. FINDINGS: Replacement of the nephroureterostomy tube as noted. FLUOROSCOPY TIME: 3 minutes IR/IR nephrostomy tube change IMPRESSION: Replacement of the nephroureterostomy tube.
[2023-04-25 14:26] VITALS: BMI 17.7
[2023-04-25 16:45] VITALS: BP 134/74; PULSE 79; RESP 16; TEMP 36.4; O2SAT 97
[2023-04-25 17:00] VITALS: BP 147/75; PULSE 82; RESP 16; O2SAT 99
[2023-04-25 17:15] VITALS: BP 144/76; PULSE 84; RESP 16; O2SAT 99
[2023-04-25] MEDS: Acetaminophen 1,000 MG/100 ML PIGGYBACK 400 MG IV (17:26)
[2023-04-25 17:30] VITALS: BP 140/82; PULSE 80; RESP 16; TEMP 36.2; O2SAT 99
== END 2023-04-25 17:42 | disposition home or self-care (01) ==
PROVIDERS: Radiology Vascular & Interventional Radiology; PCP General Practice; Visit Provider Urology
DX: N32.89 Other specified disorders of bladder (principal); C67.9 Malignant neoplasm of bladder, unspecified; I10 Essential (primary) hypertension; E78.5 Hyperlipidemia, unspecified; J45.909 Unspecified asthma, uncomplicated; Z79.899 Other long term (current) drug therapy; Z88.8 Allergy status to other drugs, medicaments and biological substances; Z87.891 Personal history of nicotine dependence
CPT/HCPCS: 50435; 99152; J0131; J0690; J2250; J3010; Q9967

== ENCOUNTER → 2023-04-25 15:27 | Outpatient (BNV) | payer OTHER, SELFPAY | PROVIDERS: PCP General Practice; Visit Provider Radiology Vascular & Interventional Radiology | DX: C67.5 Malignant neoplasm of bladder neck (principal) | CPT/HCPCS: 50435 ==

== ENCOUNTER 2023-05-09 10:49 | Outpatient (REF) | payer OTHER, SELFPAY ==
[2023-05-09 16:31] LABS: Urine Cytology See Pathology rpt
== END 2023-05-09 10:50 | disposition home or self-care (01) ==
LOC: HO.LAB 10:49
PROVIDERS: PCP General Practice; Visit Provider Urology
DX: N39.0 Urinary tract infection, site not specified (principal); C67.5 Malignant neoplasm of bladder neck; N13.30 Unspecified hydronephrosis
CPT/HCPCS: 52000; 81003; 87086; 88112; C1747

== ENCOUNTER 2023-05-09 10:49 | Outpatient (AMB) | payer OTHER, SELFPAY ==
--- NOTE | 2023-05-09 11:07 | MHC.OFFVIS ---
Intake Intake Visit Reasons: 2m/cysto after chemo Intake Note: Patient is present for Cystoscopy Urology Med: Oxybutynin Antibiotic Allergy: Sulfa, Trimethroprim Blood Thinner: None Pharmacy: [facility] Cystoscope used during Procedure LOT#: [id number] EXP: 02/02/2025 Allergies aspirin [ASA] Allergy (Intermediate, Verified 06/01/23 11:06) RASH ibuprofen [Ibuprofen] Allergy (Intermediate, Verified 06/01/23 11:06) RASH morphine [MORPHINE] Allergy (Intermediate, Verified 06/01/23 11:06) ITCHING naproxen [From NAPROSYN] Allergy (Intermediate, Verified 06/01/23 11:06) RASH,N/V oxycodone [OXYCODONE] Allergy (Intermediate, Verified 06/01/23 11:06) NAUSEA & VOMITING, RASH sulfamethoxazole [From Bactrim] Adverse Reaction (Severe, Verified 06/01/23 11:06) Abdominal Pain trimethoprim [From Bactrim] Adverse Reaction (Severe, Verified 06/01/23 11:06) Abdominal Pain HPI HPI Comments History of Present Illness Details Altaf is a pleasant female. She is a patient of . She seen for the following urologic conditions - recurrent high-grade bladder cancer invasive Indonesian translation provided by qualified chief medical technologist Removal of right PCN in office today Plan for cystoscopy, bladder biopsy Discussed with patient Completed neoadjuvant chemotherapy Right PCN placed after presentation for NADEEN - creatinine resolving from 2.9 down to 0.94 - 03/[address] scan with resolution of bladder thickening, right hydronephrosis. 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 The bladder is partially distended with irregular wall thickening and trabeculated appearance. Dilated appearance of both distal ureters. Moderate right hydronephrosis. Mild left hydronephrosis. No lymphadenopathy. Bladder cancer superficial high-grade 2018 - disease progression - 12/01 muscle invasive bladder cancer Initial diagnosis with Dr. Hankins TURBT 05/30 high-grade superficial noninvasive disease Adjuvant therapy BCG June 2019 Surveillance cystoscopy - 04/30 NAD, 10/01 NAD, 10/02 NAD - trabeculated bladder with BCG change PFSH Medical History Osteoarthritis GERD (gastroesophageal reflux disease) History of COVID-19 Emphysema lung Hyperlipidemia Hypertension Asthma Hemorrhoids with complication UTI (urinary tract infection) Malignant neoplasm of urinary bladder Bladder mass Surgical History History of ERCP Hx laparoscopic cholecystectomy Hx of cystoscopy History of hysterectomy with bilateral oophorectomy Hx of colonoscopy (01/17/19) History of esophagogastroduodenoscopy (EGD) Family History Father No problems noted. Mother Diabetes Brother Lung cancer Daughter Diabetes Social History Household Members: Family Housing: Apartment Do you presently have visiting nurse or other home services: Yes Alcohol intake: never Patient Tobacco Use Status: Former Tobacco user Quit Date: 7 yrs ago Years Smoked: 55 Advance Directives: No Advance Directives Information Provided: No service: No Current occupational status: retired Current occupation: rt handed Review of Systems Const Denies chills and Denies fever(s) Card Reports no additional complaints and Denies syncope Resp Denies cough GI Denies abdominal pain and Denies heartburn Reports as per HPI and Denies change in libido Neuro Denies syncope Psych Denies change in libido Endo Denies change in libido Physical Exam Const General: cooperative, healthy appearing, comfortable and no acute distress Orientation/consciousness: patient oriented x3 HEENT Face and sinus: Yes normal facial exam Mouth: moist mucous membranes Neck Neck: Yes normal visual inspection, Yes full ROM and Yes trachea midline Chest Chest palpation & inspection: normal inspection of the chest Resp Effort & Inspection: normal respiratory effort, able to speak in complete sentences and no respiratory distress GI Inspection: Yes normal to inspection Back/Spine/Pelvis Cervical Spine: normal cervical lordosis Thoracic/Lumbar Spine: thoracic and lumbar spine normal to inspection Skin General skin exam: no rashes or lesions noted Neuro General: patient oriented x3, gait normal, tone normal and moves all extremities Extrem General: Yes normal to inspection and Yes capillary refill normal Office Procedures Cystoscopy Consent Discussed risk and benefit or proposed procedure with the patient. Information consent for procedure given to the patient. Discussed technical aspects, risks, benefits and alternatives in full. Addressed all of the patient's questions and concerns regarding the procedure. The patient demonstrated knowledge and understanding. They wish to proceed with this procedure. Preparation The patient was prepped in the usual manner. A sole edge inker machine was present and in the room. Genitalia was prepped with betadine solution in a sterile manner. Lidocaine Jelly 2% was placed into the urethra and 16Fr flexible Olympus cystoscope was inserted into the meatus after adequate lubrication. [id number] DISPOSABLE SCOPE URO-G FLEXIBLE SCOPE Procedure code (CPT) selection complete Office Meds lidocaine HCl 2 % mucosal jelly in applicator Performing Provider: Severo Blair MD Performing Location: [facility] Administered by: Katherine Rodríguez RN on 05/09/23 11:22 Dose Route Admin Location Dispensed Lot Number Expiration Date [facility] [place] [employer] 10 mL intra-urethral 10 mL nitrofurantoin monohydrate/macrocrystals 100 mg capsule Performing Provider: Severo Blair MD Performing Location: [facility] Administered by: Katherine Rodríguez RN on 05/09/23 11:22 Dose Route Admin Location Dispensed Lot Number Expiration Date [facility] [place] [employer] 100 mg PO 1 cap naproxen 500 mg tablet Performing Provider: Severo Blair MD Performing Location: [facility] Documented (not given) by: Katherine Rodríguez RN on 05/09/23 11:22 Reason Not Given: Patient is Allergic Results AMB Urinalysis, Automated UA Leukoctes 15 Hoang/uL Last Edit by EVELYN Hernadez on 05/09/23 12:04 UA Nitrite Positive Last Edit by EVELYN Hernadez on 05/09/23 12:04 UA Urobilinogen 0.2 mg/dL Last Edit by EVELYN Hernadez on 05/09/23 12:04 UA Protein 300 mg/dL Last Edit by EVELYN Hernadez on 05/09/23 12:04 UA pH 5.5 Last Edit by EVELYN Hernadez on 05/09/23 12:04 UA Blood 10 Babak/uL Last Edit by EVELYN Hernadez on 05/09/23 12:04 UA Specific [place] 1.030 Last Edit by Latricia Sofia, RMA on 05/09/23 12:04 UA Ketone Negative Last Edit by Latricia Sofia RMA on 05/09/23 12:04 UA Bilirubin 0 mg/dL Last Edit by Latricia Sofia, RMA on 05/09/23 12:04 UA Glucose 0 mg/dL Last Edit by Latricia Sofia A on 05/09/23 12:04 Results Reviewed Results Reviewed: Laboratory Last Values Urine pH (Auto) 5.5 05/09/23 11:26 Specific [place] (Auto) 1.030 05/09/23 11:26 Urine Protein (Auto) 300 mg/dL 05/09/23 11:26 Glucose (UA)(Auto) 0 mg/dL 05/09/23 11:26 Urine Ketones (Auto) Negative 05/09/23 11:26 Urine Blood (Auto) 10 Babak/uL 05/09/23 11:26 Urine Nitrite (Auto) Positive 05/09/23 11:26 Urine Bilirubin (Auto) 0 mg/dL 05/09/23 11:26 Urine Urobilinogen (Auto) 0.2 mg/dL 05/09/23 11:26 Leukocyte Esterase (Auto) 15 Hoang/uL 05/09/23 11:26 Assessment & Plan Assessment & Plan (1) 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: Code(s): N13.30 - Unspecified hydronephrosis; C67.9 - Malignant neoplasm of bladder, unspecified (2) Malignant neoplasm of urinary bladder: Comment: multiple TURBT's Code(s): C67.9 - Malignant neoplasm of bladder, unspecified Qualifiers: Bladder location: unspecified site Qualified Code(s): C67.9 - Malignant neoplasm of bladder, unspecified Plan Risks, benefits and alternatives to therapy were discussed. These include but are not limited to infection, bleeding, damage to local organs and tissues, need for further interventions. Anesthetic risks regarding cardiac arrhythmia, blood clots, and potential mortality were discussed. The patient understands the typical recovery time and the outpatient nature of the procedure. After consideration of these risks the patient gives full informed consent and they wish to move ahead with the procedure. Cystoscopy, bladder biopsy Orders: Orders AMB Urinalysis Automated 05/09/23 Z13.9 - Encounter for screening, unspecified Urine Culture 05/09/23 N39.0 - Urinary tract infection, site not specified AMB Cystoscopy 05/09/23 C67.5 - Malignant neoplasm of bladder neck Urine Cytology 05/09/23 C67.5 - Malignant neoplasm of bladder neck Patient Instructions: Imaging studies, laboratory and physical exam results were discussed and reviewed in detail. No major barriers to patient understanding were identified. An opportunity to ask questions regarding the treatment plan was provided. All questions were answered. The patient expressed understanding and agreement with the above treatment plan. The patient is aware they should contact our office by phone for worsening of their current condition or the appearance of new urologic symptoms. Compliance is encouraged with any medications and followup testing that is ordered. It is a privilege to participate in the urologic care of your patient. If you have any questions or concerns regarding treatment for the above conditions, or other urologic issues, please do not hesitate to contact me. The office telephone contact is [phone]. This note is constructed using voice recognition software. While every effort has been made to ensure accuracy ladies suit operator errors may have been included. Yours sincerely, Dr Severo Blair MD, [facility] - [facility]rology Providers of Expert, Compassionate Care for the Genitourinary System Coding Level of Care Code Est Pt Level 4 (58587) Diagnoses 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 N13.30; C67.9 Malignant neoplasm of urinary bladder, unspecified site C67.9 Bladder location: unspecified site CPT Codes Cystoscopy - CPT: 98937-Rozlisgqur ([id number]) Cystoscopy - CPT: DISPOSABLE SCOPE URO-G FLEXIBLE SCOPE ([id number])
== END 2023-05-09 12:28 | disposition home or self-care (01) ==
LOC: HO.HUSH 10:49
PROVIDERS: PCP General Practice; Visit Provider Urology
DX: C67.5 Malignant neoplasm of bladder neck (principal); Z13.89 Encounter for screening for other disorder
CPT/HCPCS: 52000

== ENCOUNTER → 2023-05-16 11:05 | Outpatient (BNVA) | payer OTHER, SELFPAY | PROVIDERS: PCP General Practice; Visit Provider Urology ==

== ENCOUNTER → 2023-05-23 12:38 | Outpatient (BNVA) | payer OTHER, SELFPAY | PROVIDERS: PCP General Practice; Visit Provider Urology ==

== ENCOUNTER 2023-05-30 10:45 | Outpatient (AMB) | payer OTHER, SELFPAY ==
--- NOTE | 2023-05-30 10:17 | A.OFFVIS_ITS ---
Intake Vital Signs 05/30/23 10:52 Height 5 ft 2 in Weight 106 lb BMI 19.4 BP 116/54 L Blood Pressure Location Lt brachial Position Sitting Pulse 91 Pulse Source Pulse Oximeter Pulse Oximetry (%) 97 Oxygen Delivery Method Room Air Intake Visit Reasons: Osteoarthritis of Both Hips Intake Note: pain today 10/10. 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 Set Up Operator Required: No Allergies aspirin [ASA] Allergy (Intermediate, Verified 06/01/23 11:06) RASH ibuprofen [Ibuprofen] Allergy (Intermediate, Verified 06/01/23 11:06) RASH morphine [MORPHINE] Allergy (Intermediate, Verified 06/01/23 11:06) ITCHING naproxen [From NAPROSYN] Allergy (Intermediate, Verified 06/01/23 11:06) RASH,N/V oxycodone [OXYCODONE] Allergy (Intermediate, Verified 06/01/23 11:06) NAUSEA & VOMITING, RASH sulfamethoxazole [From Bactrim] Adverse Reaction (Severe, Verified 06/01/23 11:06) Abdominal Pain trimethoprim [From Bactrim] Adverse Reaction (Severe, Verified 06/01/23 11:06) Abdominal Pain HPI Osteoarthritis of Both Hips HPI Details Patient is a pleasant 77 years old female with prior history lumbar degenerative disc disease, arthritis, levoscoliosis, peripheral neuropathy bladder cancer status post chemotherapy, cystoscopy, percutaneous right nephrostomy tube placement and removal, presents today for initial evaluation of low back pain is radiation into her lower buttocks and posterior lower extremities with weakness, numbness and tingling and had burning and stabbing pain in both feet. Patient also presents with localized tenderness in the projection of bilateral ischial tuberosity. Pain increases with prolonged walking or sitting. Patient is constantly repositioning herself and flexes forward to relieve her lower back pain during today's visit. Patient reports peripheral neuropathy pain in both of her feet. Pain has been constant and is rated 10/10 all the time. Pain affects her general activities, walking, and sleep. Patient reports she has tried manage her pain with tramadol and gabapentin but cannot tolerate it well due to nausea. Denies previous spine surgery or injections. Most recent imaging noted for degenerative spondylosis throughout lumbar spine with moderate levoscoliosis of dorsal lumbar junction. Patient denies any fever, chills, shortness of breath, weight changes, bowel dysfunction or saddle anesthesia. Location Bilateral lower buttocks pain radiates down bilteral lower legs Duration Chronic pain for 4 years Characteristics of symptom or complaint Cramping, squeezing, tingling, stabbing, burning, tingling, numbness Aggravating or associated factors Movements, walking, sitting for long periods of time Relieving factors Tramadol, gapabentin, rest, changing positions, heat therapy Treatment Physical therapy-minimal improvement in function but no pain relief PFSH Medical History Osteoarthritis GERD (gastroesophageal reflux disease) History of COVID-19 Emphysema lung Hyperlipidemia Hypertension Asthma Hemorrhoids with complication UTI (urinary tract infection) Malignant neoplasm of urinary bladder Bladder mass Surgical History History of ERCP Hx laparoscopic cholecystectomy Hx of cystoscopy History of hysterectomy with bilateral oophorectomy Hx of colonoscopy (01/17/19) History of esophagogastroduodenoscopy (EGD) Family History Father No problems noted. Mother Diabetes Brother Lung cancer Daughter Diabetes Social History Household Members: Family Housing: Apartment Do you presently have visiting nurse or other home services: Yes Alcohol intake: never Patient Tobacco Use Status: Former Tobacco user Quit Date: 7 yrs ago Years Smoked: 56 service: No Current occupational status: retired Current occupation: rt handed Review of Systems Const All systems reviewed & are unremarkable except as noted in HPI and below Physical Exam Vital Signs: Last Vital Signs Pulse 91 05/30/23 10:52 BP 116/54 L 05/30/23 10:52 Pulse Ox 97 05/30/23 10:52 Oxygen Delivery Method Room Air 05/30/23 10:52 BMI result Body Mass Index 19.4 General: Appears afebrile. Alert and oriented. Mood and affect appropriate. Anxious. Follows and participates in conversation appropriately. Respiratory effort is unlabored. No cough. Able to transition from sit to stand unassisted. Ambulates with bilaterally normal heel strike and toe off. Back/Spine/Pelvis Other: Slow antalgic gait with out limping. Can flex forward to 55-65 degrees and extend to 5-10 degrees before experiencing lumbar pain. Demonstrates 5/5 strength of quadriceps bilaterally as well as flexion/dorsiflexion of bilateral feet against resistance. 2+ pedal pulses bilaterally. Seated straight leg rise with dorsiflexion positive bilaterally. +2 patellar and achilles reflexes bilaterally. Facet loading test positive bilaterally. Mike sign, Bryan?s are positive bilaterally and the reproduces lateral hip pain bilaterally and minimal low back pain. No groin pain with I/E hip rotations. Right lower back 2x2 dressing dry and intact. Back: back tenderness Cervical Spine: cervical ROM normal and No Cervical spine tenderness Thoracic/Lumbar Spine: thoracic and lumbar spine normal to inspection, No Thoracic/lumbar spine scar(s), Lasegue's sign positive bilateral and diffuse, pain with thoraco-lumbar ROM, paraspinal muscle tenderness, thoraco-lumbar ROM limited, Thoracic/lumbar scoliosis, thoracic spinal tenderness at T11 and at T12 and lumbar spinal tenderness at L4 and at L5 Pelvis: buttock tenderness bilaterally (Inferior aspects), sciatic notch tenderness on the right and no tenderness over symphysis pubis Sacroiliac joints: bilaterally tender to palpation Extrem Other: There is a decreased sensation over the soles of the feet and toes. Reports numbness, burning, hot, tingling in both feet. No breaks in the skin. No soft tissue swelling or warmth. +2 pedal pulses bilaterally. Results Reviewed Results Reviewed: CT/CT abdomen pelvis wo IV con 03/17/23 OSSEOUS STRUCTURES: There are degenerative and spondylosis throughout lumbar spine with moderate levoscoliosis of dorsal lumbar junction. IMPRESSION: 1. Right nephroureteral stent without hydronephrosis. There is no left-sided hydronephrosis. 2. Diffuse bladder wall thickening with underdistention. Findings are consistent with no bladder cancer. Colonic diverticulosis without diverticulitis. No acute diverticulitis seen. Fleischner guidelines were followed. XR THORACIC SPINE 05/04/22 CLINICAL INFORMATION: Back pain FINDINGS: There is severe curvature of the lower thoracic and upper lumbar spine to the left. No fracture or dislocation is seen. There is multilevel degenerative spondylosis. Paraspinal soft tissues are normal. IMPRESSION: Scoliosis and degenerative changes. Sacrum coccyx min 2V XR 03/03/22 IMPRESSION: Unremarkable sacrum examination. Assessment & Plan Assessment & Plan (1) Peripheral neuropathy: Code(s): G62.9 - Polyneuropathy, unspecified (2) Low back pain due to bilateral sciatica: Code(s): M54.41 - Lumbago with sciatica, right side; M54.42 - Lumbago with sciatica, left side (3) Lumbar degenerative disc disease: Code(s): M51.36 - Other intervertebral disc degeneration, lumbar region (4) Levoscoliosis of lumbar spine: Code(s): M41.86 - Other forms of scoliosis, lumbar region (5) Lumbar spondylosis: Code(s): M47.816 - Spondylosis without myelopathy or radiculopathy, lumbar region (6) Ischial bursitis: Code(s): M70.70 - Other bursitis of hip, unspecified hip (7) Lumbar radiculopathy: Code(s): M54.16 - Radiculopathy, lumbar region Plan 1. Schedule Bilateral Ischial Tuberosity injections with local and fluoroscopy. 2. Discussed treatments for axial and radicular low back pain. Patient reports bilateral radiculopathy pain is most concerning to her today. MRI of the lumbar spine to assess for neural integrity and compression. Patient will return to the clinic to discuss results of the MRI findings when it is done and consider interventional therapy as indicated. 3. Will try to arrange topical 8% capsaicin application for bilateral foot pain as the next step once we have confirmed availability. Informational pamphlets were provided to patient today. All questions and concerns have been answered and the patient agreed with the plan. Follow up for MRI results and sooner as needed. Orders: Orders MR lumbar spine wo con 05/30/23 M41.86 - Other forms of scoliosis, lumbar region, M51.36 - Other intervertebral disc degeneration, lumbar region, M54.16 - Radiculopathy, lumbar region Medications: Discontinued oxybutynin chloride ER Discontinued Reason: Patient Refused 10 mg PO DAILY 90 days 90 tabs 1RF C67.5 - Malignant neoplasm of bladder neck, N32.81 - Overactive bladder, R39.15 - Urgency of urination Coding Level of Care Code New Pt Level 4 (94793) Diagnoses Peripheral neuropathy G62.9 Low back pain due to bilateral sciatica M54.41; M54.42 Lumbar degenerative disc disease M51.36 Levoscoliosis of lumbar spine M41.86 Lumbar spondylosis M47.816 Ischial bursitis M70.70 Lumbar radiculopathy M54.16
[2023-05-30 10:52] VITALS: BP 116/54; PULSE 91; O2SAT 97; BMI 19.4
== END 2023-05-30 11:20 | disposition home or self-care (01) ==
PROVIDERS: PCP General Practice; Visit Provider Nurse Practitioner Family
DX: G62.9 Polyneuropathy, unspecified (principal); M54.41 Lumbago with sciatica, right side; M54.42 Lumbago with sciatica, left side; M51.36 Other intervertebral disc degeneration, lumbar region; M41.86 Other forms of scoliosis, lumbar region; M47.26 Other spondylosis with radiculopathy, lumbar region; M70.70 Other bursitis of hip, unspecified hip
CPT/HCPCS: 99204

== ENCOUNTER → 2023-05-30 10:45 | Outpatient (BNVA) | payer OTHER, SELFPAY | PROVIDERS: PCP General Practice; Visit Provider Nurse Practitioner Family ==

== ENCOUNTER 2023-06-01 10:40 | Outpatient (AMB) | payer OTHER, SELFPAY ==
[2023-06-01 11:05] VITALS: BP 104/56; PULSE 112; O2SAT 97
--- NOTE | 2023-06-01 11:05 | MHC.OFFVIS ---
Intake Vital Signs 06/01/23 11:05 Weight 48 kg BP 104/56 L Blood Pressure Location Lt brachial Position Sitting Pulse 112 H Pulse Source Pulse Oximeter Pulse Oximetry (%) 97 Oxygen Delivery Method Room Air Intake Visit Reasons: Dupixent Allergies aspirin [ASA] Allergy (Intermediate, Verified 06/01/23 11:06) RASH ibuprofen [Ibuprofen] Allergy (Intermediate, Verified 06/01/23 11:06) RASH morphine [MORPHINE] Allergy (Intermediate, Verified 06/01/23 11:06) ITCHING naproxen [From NAPROSYN] Allergy (Intermediate, Verified 06/01/23 11:06) RASH,N/V oxycodone [OXYCODONE] Allergy (Intermediate, Verified 06/01/23 11:06) NAUSEA & VOMITING, RASH sulfamethoxazole [From Bactrim] Adverse Reaction (Severe, Verified 06/01/23 11:06) Abdominal Pain trimethoprim [From Bactrim] Adverse Reaction (Severe, Verified 06/01/23 11:06) Abdominal Pain Medication List - Last Reconciled 06/01/23 by Mackenzie Torres LPN [id number] 2.5 mg-50 mg-18 iron/15 mL (Geritol Tonic with Ferrex 18) 15 mL PO DAILY cholecalciferol (vitamin D3) (Vitamin D3) 50 mcg PO QAM dexamethasone 4 mg PO BID dupilumab (Dupixent) 300 mg (2 mL) subcut Q2W 28 days fesoterodine ER (Toviaz) 8 mg PO DAILY 30 days Flovent HFA 110 mcg/actuation (fluticasone propionate) 1 puff inhalation BID NS gabapentin 200 mg PO TID hydrocortisone 2.5% (Proctosol HC) 1 appl KS BID ipratropium-albuterol 20-100 mcg/actuation (Combivent Respimat) 1 puff inhalation QID levofloxacin 500 mg PO DAILY linaclotide (Linzess) 145 mcg PO QAM lisinopril 15 mg PO DAILY nitrofurantoin macrocrystal 0 mg PO DAILY nystatin 100,000 units PO TID ondansetron 8 mg PO Q8H PRN pantoprazole (Protonix) 40 mg PO DAILY 30 days phenazopyridine (Pyridium) 100 mg PO TID 5 days polyethylene glycol 3350 (Miralax) 17 grams PO DAILY pravastatin 40 mg PO DAILY sennosides-docusate sodium 8.6-50 mg (Senna with Docusate Sodium) 1 tab-cap PO BEDTIME tramadol 50 mg PO Q6H PRN HPI Dupixent HPI Details Altaf is here for a Dupixent teach she was educated on hand washing, injection preparation, administration, and disposal. Altaf was able to return demonstrate proper technique for hand washing, injection preparation, administration and disposal of needle and states she has no questions at this time. Medication Dupixent 300mg/2mL pre-filled pen (patient?s own meds) Loading dose of 600mg given by the patient in 2 SQ injections; injection #1 L thigh;? injection #2 R thigh? Lot# [id number] expires 03/10/2025. Patient aware her next injection is in 15 days. Nurse visit only.? PFSH Medical History Osteoarthritis GERD (gastroesophageal reflux disease) History of COVID-19 Emphysema lung Hyperlipidemia Hypertension Asthma Hemorrhoids with complication UTI (urinary tract infection) Malignant neoplasm of urinary bladder Bladder mass Surgical History History of ERCP Hx laparoscopic cholecystectomy Hx of cystoscopy History of hysterectomy with bilateral oophorectomy Hx of colonoscopy (01/17/19) History of esophagogastroduodenoscopy (EGD) Family History Father No problems noted. Mother Diabetes Brother Lung cancer Daughter Diabetes Social History Household Members: Family Housing: Apartment Do you presently have visiting nurse or other home services: Yes Alcohol intake: never Patient Tobacco Use Status: Former Tobacco user Quit Date: 7 yrs ago Years Smoked: 56 service: No Current occupational status: retired Current occupation: rt handed Assessment & Plan Assessment & Plan (1) Moderate persistent allergic asthma: Code(s): J45.40 - Moderate persistent asthma, uncomplicated Coding Level of Care Code Established Pt Est Pt Level 1 (58098) Patient Type Established Diagnoses Moderate persistent allergic asthma J45.40 Comment NURSE VISIT ONLY
== END 2023-06-01 11:32 | disposition home or self-care (01) ==
PROVIDERS: PCP General Practice; Visit Provider Internal Medicine Pulmonary Disease
DX: J45.40 Moderate persistent asthma, uncomplicated (principal)

== ENCOUNTER → 2023-06-01 10:40 | Outpatient (BNVA) | payer OTHER, SELFPAY | PROVIDERS: PCP General Practice; Visit Provider Internal Medicine Pulmonary Disease | DX: J45.40 Moderate persistent asthma, uncomplicated (principal) | CPT/HCPCS: 99211 ==

== ENCOUNTER 2023-06-02 11:11 | Emergency (ER) | payer OTHER, SELFPAY ==
--- NOTE | ~2023-06-02 | CT_ITS ---
EXAMINATION: CT ABDOMEN AND PELVIS WITHOUT CONTRAST CLINICAL INFORMATION: Suprapubic pain with history of bladder cancer COMPARISON: 03/17/2023 TECHNIQUE: Multidetector volumetric imaging was performed from the superior aspect of the liver through the pubic symphysis. Sagittal and coronal reformatted images were obtained on the technologist's workstation. This CT examination was performed using dose optimization techniques as appropriate, variously including the following: *Automated exposure control *Adjustment of mA and/or kV according to patient size (this includes techniques or standardized protocols for targeted exams where dose is matched to indication/reason for exam; i.e. extremities or head) *Use of iterative reconstruction technique DLP: 265 mGy-cm FINDINGS: LUNG BASES: The visualized lung bases are unremarkable. LIVER, GALLBLADDER, AND BILIARY TREE: The liver is normal in size, shape, and attenuation. No focal hepatic lesion or biliary ductal dilatation is present. Status post cholecystectomy PANCREAS: Unremarkable. SPLEEN: Unremarkable. ADRENAL GLANDS: Unremarkable. KIDNEYS AND URETERS: Right stent has been removed. There is hydronephrosis on the right and dilated ureter leading up to the bladder. Hydronephrosis is marked On the left there is also hydronephrosis. Hydronephrosis is moderate. Prominent ureter also leading up to the bladder. BLADDER: Bladder is thick-walled. Some increasing stippled calcifications along the right side of the bladder of uncertain etiology. These do not appear to lie within the ureter. GASTROINTESTINAL TRACT: Nonobstructing bowel pattern. There is diverticular disease but no evidence for diverticulitis ABDOMINAL WALL: No significant hernia is appreciated. LYMPH NODES: There is no bulky adenopathy here. VASCULAR: Some atherosclerotic changes are once again noted PELVIC VISCERA: Findings are described above OSSEOUS STRUCTURES: Degenerative changes and scoliosis once again noted. No evidence for a bony lesion. CT/CT abdomen pelvis wo IV con IMPRESSION: The ureteral stent on the right seen previously has been removed. There is marked hydronephrosis on the right and more moderate hydronephrosis on the left with hydroureters leading up to the bladder bilaterally.. The bladder appears thick-walled. The bowel pattern is nonobstructing. Other findings are as described above Fleischner guidelines were followed.
[2023-06-02 11:16] VITALS: BP 130/78; PULSE 110; O2SAT 96
[2023-06-02 11:27] VITALS: BP 145/108; PULSE 110; RESP 18; TEMP 36.7; O2SAT 98; BMI 17.7
--- NOTE | 2023-06-02 11:28 | ED.GENADULT ---
HPI - General Adult General Chief complaint: Abdominal Pain Stated complaint: left lower abd pain, pain urinating, per ems Time Seen by Provider: 06/02/23 16:32 Source: patient Mode of arrival: ambulatory Limitations: no limitations History of Present Illness HPI narrative: patient comes to the emergency room complaining of suprapubic pain since yesterday. also, patient reports that she has been using much more than usual, Which has already been addressed by Urology, patient taking daily fesoterodine without any relief. Patient states that she has history of bladder cancer, she was told by Urology that she no longer has scant her approximately a month ago. Patient's nephrostomy tubes were removed about 3 weeks ago. Patient denies fever or chills, no flank pain. No nausea vomiting or diarrhea. Denies hematuria or dysuria. Patient states that the pain is in the suprapubic area radiating towards the left lower quadrant, intermittent. Related Data Home Medications Medication Instructions Recorded Confirmed lisinopril 10 mg tablet 15 mg PO DAILY 03/09/22 06/01/23 [id number] 15 ml PO DAILY 12/16/22 06/01/23 2.5 mg-50 mg-18 mg iron/15 mL oral liq (Geritol Tonic with Ferrex 18) cholecalciferol (vitamin D3) 25 50 mcg PO QAM 12/16/22 06/01/23 mcg (1,000 unit) chewable tablet (Vitamin D3) gabapentin 100 mg capsule 200 mg PO TID 12/28/22 06/01/23 ipratropium 20 mcg-albuterol 100 1 puff inhalation QID 12/28/22 06/01/23 mcg/actuation mist for inhalation (Combivent Respimat) pravastatin 40 mg tablet 40 mg PO DAILY 12/28/22 06/01/23 nitrofurantoin macrocrystal 100 mg 0 mg PO DAILY 03/08/23 06/01/23 capsule Previous Rx's Medication Instructions Recorded hydrocortisone 2.5 % topical cream 1 appl KS BID hemorrhoids #30 grams 12/16/22 with perineal applicator (Proctosol HC) linaclotide 145 mcg capsule 145 mcg PO QAM #30 caps 12/16/22 (Linzess) pantoprazole 40 mg tablet,delayed 40 mg PO DAILY 30 days #30 tabs 12/16/22 release (Protonix) Flovent HFA 110 mcg/actuation 1 puff inhalation BID #12 grams 12/19/22 aerosol inhaler (fluticasone propionate) dexamethasone 4 mg tablet 4 mg PO BID #30 tabs 01/04/23 nystatin 100,000 unit/mL oral 100,000 unit PO TID #100 mL 01/04/23 suspension ondansetron 8 mg disintegrating 8 mg PO Q8H PRN Nausea #30 tabs 01/04/23 tablet polyethylene glycol 3350 17 gram 17 g PO DAILY #30 ea 01/16/23 oral powder packet (Miralax) sennosides 8.6 mg-docusate sodium 1 tab-cap PO BEDTIME #30 tabs 01/16/23 50 mg tablet (Senna with Docusate Sodium) tramadol 50 mg tablet 50 mg PO Q6H PRN Pain #60 tabs 03/10/23 levofloxacin 500 mg tablet 500 mg PO DAILY #7 tabs 03/17/23 dupilumab 300 mg/2 mL subcutaneous 300 mg (2 mL) subcut Q2W 28 days 05/08/23 pen injector (Dupixent) #4 mL phenazopyridine 100 mg tablet 100 mg PO TID bladder pain 5 days 05/17/23 (Pyridium) #15 tabs fesoterodine 8 mg tablet,extended 8 mg PO DAILY 30 days #30 tabs 05/30/23 release 24 hr (Toviaz) cefuroxime axetil 500 mg tablet 500 mg PO BID #20 tabs 06/02/23 Allergies Allergy/AdvReac Type Severity Reaction Status Date / Time aspirin [ASA] Allergy Intermediate RASH Verified 06/01/23 11:06 ibuprofen [Ibuprofen] Allergy Intermediate RASH Verified 06/01/23 11:06 morphine [MORPHINE] Allergy Intermediate ITCHING Verified 06/01/23 11:06 naproxen [From NAPROSYN] Allergy Intermediate RASH,N/V Verified 06/01/23 11:06 oxycodone [OXYCODONE] Allergy Intermediate NAUSEA & Verified 06/01/23 11:06 VOMITING, RASH sulfamethoxazole AdvReac Severe Abdominal Verified 06/01/23 11:06 [From Bactrim] Pain trimethoprim [From Bactrim] AdvReac Severe Abdominal Verified 06/01/23 11:06 Pain Review of Systems Review of Systems: Constitutional : No Weight loss, No Fever, No Chills, No Night Sweats, No Fatigue, No Malaise ENT/Mouth : No Hearing loss, No Ear Pain, No Nasal Congestion, No Sinus Pain, No Hoarseness, No sore throat, No Rhinorrhea, No Swallowing Difficulty Eyes: No Eye Pain, No Swelling, No Redness, No Foreign Body, No Discharge, No Vision Changes Cardiovascular : No Chest Pain, No SOB, No Dyspnea on Exertion, No Orthopnea, No Edema, No Palpitations Respiratory : No Cough, No Sputum, No Wheezing, No Smoke Exposure, No Dyspnea Gastrointestinal : No Nausea, No Vomiting, No Diarrhea, No Constipation, Complaining of suprapubic pain radiating to the left lower quadrant,No Hematochezia, No Melena Genitourinary : no irregular bleeding, No Dysuria, No Urinary Frequency, No Hematuria, No Urinary Incontinence, No Urgency, No Flank Pain, No Urinary Flow Changes, No Hesitancy Musculoskeletal : No joint pain, No Myalgias, No Joint Swelling Skin : No Skin Lesions, No rash Neuro : No Weakness, No Numbness, No Paresthesias, No Loss of Consciousness, No Dizziness, No Headache Psych : No Anxiety/Panic, No Depression, No SI/HI/AH/VH, No Social Issues, Heme/Lymph: No Bruising, No Bleeding,No Lymphadenopathy Endocrine : No Polyuria, No Polydipsia, No Temperature Intolerance [facility] Past Medical History Medical History Osteoarthritis GERD (gastroesophageal reflux disease) History of COVID-19 Emphysema lung Hyperlipidemia Hypertension Asthma Hemorrhoids with complication UTI (urinary tract infection) Malignant neoplasm of urinary bladder Bladder mass Surgical History History of ERCP Hx laparoscopic cholecystectomy Hx of cystoscopy History of hysterectomy with bilateral oophorectomy Hx of colonoscopy (01/17/19) History of esophagogastroduodenoscopy (EGD) Family History Family History Father No problems noted. Mother Diabetes Brother Lung cancer Daughter Diabetes Social History Social History Household Members: Family Housing: Apartment Do you presently have visiting nurse or other home services: Yes Alcohol intake: never Patient Tobacco Use Status: Former Tobacco user Quit Date: 7 yrs ago Years Smoked: 55 Advance Directives: No Advance Directives Information Provided: No service: No Current occupational status: retired Current occupation: rt handed Physical Exam ED Vital Signs: Vital Signs - 24 hr 06/02/23 11:27 06/02/23 17:01 Temperature 98.1 F 98.1 F Pulse Rate 110 H 108 H Respiratory Rate 18 18 Blood Pressure 145/108 H 145/96 H Pulse Oximetry 98 98 Oxygen Delivery Method Room Air Room Air BMI result Body Mass Index 17.7 Const Other: Appearance: Alert. Oriented X3. No acute distress. Eyes: Pupils equal, round and reactive to light. ENT: Pharynx normal. Neck: Normal inspection. Neck supple. No lymph nodes noted. No crepitus CVS: Normal heart rate and rhythm. Pulses normal. Normal S1 and S2 Respiratory: No respiratory distress. Breath sounds normal. No Wheezing. No rales Abdomen: Soft , palpable bladder, pain to palpation in the suprapubic area, minimal pain to palpation the left lower quadrant. Skin: Skin warm and dry. Normal skin color. Normal skin turgor. Extremities: No lower extremity edema. No Lacerations. No Rash Neuro: Oriented X 3. No motor deficit. No sensory deficit. Moving all extremities. No slurred speech. CN 2 through 12 grossly intact Psych: calm, cooperative, normal affect Course Course Course Narrative: This is an RME: Additional HPI, ROS, PE not included below will be deferred to primary provider. 77 yo f hx of bladder cancer, UTI, GERD. presents w/ bladder pain for days tells me I think its infected reports urgency, increased urinary stream, frequency. Patient reports every day she has a fever of 102-103 F. Denies back pain, cp, sob. Plan- labs, UA Medications Administered Discontinued Medications Generic Name Dose Route Start Last Admin Trade Name Freq PRN Reason Stop Dose Admin Sodium Chloride 1,000 mls @ 999 mls/hr 06/02/23 16:50 06/02/23 17:51 Ns IVCONT 06/02/23 17:50 Not Given .Q1H1M ONE Ceftriaxone Sodium 1 gm/ 50 mls @ 100 mls/hr 06/02/23 16:54 06/02/23 17:51 Sodium Chloride IV 06/02/23 17:23 Not Given ONCE ONE Medical Decision Making Medical Decision Making [facility] Narrative: - My interpretation of labs: Patient has an elevated white blood cell count which usually she does not have, Patient has very mild NADEEN, likely secondary to increased urination. Patient receiving IV fluids platelets 847, patient has had platelets up to a 1000 in the past. Med urine positive for blood which is chronic due to history of bladder cancer. Negative for nitrite, large amount of leukocyte esterase and white blood cell count elevated. This also seems to be chronic, microbiology did not grow any specific pathogen. However, today, patient is asymptomatic. - Patient receiving IV fluids and ceftriaxone, patient seems to be susceptible - I was informed by the patient's nurse that the patient is a difficult stick. They attempted twice 2 insert and IV. Patient became upset and declines any further attempts. I spoke with the patient, patient declined ultrasound-guided IV line or EJ/ IJ. patient states that she is able to take p.o. antibiotics by mouth but will not accept any further blood work, IV insertion at times and would like to be discharged home. - my interpretation of CT scan: No obvious masses, no kidney stones, patient does have hydronephrosis bilateral. - I discussed the CT findings with Dr. Blair, aware that patient refused IV and admission. per Dr. Blair, patient can be discharged home and will follow up Monday morning in the office Differential Diagnosis Differential Diagnoses: The differential diagnosis associated with the presentation includes Admission/Observation Consideration of admission/observation: Escalation of care including admission/observation considered ( admission considered but patient refused) Lab Data [facility] Lab Attestation statement: I reviewed the patient's lab results. 06/02/23 11:41 06/02/23 11:41 Labs: Lab Results 06/02/23 06/02/23 Range/Units 11:41 11:46 WBC 13.7 H (4.8-10.8) X10*3/uL RBC 2.87 L (4.20-5.50) X10*6/uL Hgb 8.4 L (12.0-16.0) g/dl Hct 27.4 L (37.0-47.0) % MCV 95.5 (80.0-98.0) fL MCH 29.3 (27.0-33.0) pg MCHC 30.7 L (31.0-35.0) g/dl RDW 18.1 H (11.0-16.0) % Plt Count 857 H D (160-400) X10*3/uL MPV 9.3 L (9.4-12.3) fL Immature Gran % (Auto) 0.5 H (0.0-0.4) % Neut % (Auto) 72.6 (45-73) % Lymph % (Auto) 12.7 L (20-40) % [place] % (Auto) 14.0 H (2-11) % Eos % (Auto) 0.0 (0-4) % Baso % (Auto) 0.2 (0-2) % Lymph # (Auto) 1.7 (1.2-4.9) X10*3/uL [place] # (Auto) 1.9 H (0.1-1.2) X10*3/uL Eos # (Auto) 0.0 (0.0-0.4) X10*3/uL Baso # (Auto) 0.0 (0.0-0.2) X10*3/uL Abs Immat Gran (auto) 0.07 H (0.00-0.03) X10*3/uL Absolute Neuts (auto) 9.9 H (2.0-8.3) x10*3/uL Absolute Nucleated RBC 0.000 (0.0-0.012) X10*3/uL Nucleated RBC % (auto) 0.0 (0.0-0.2) /100WBC Smear Tech's Comments VERIFIED Sodium 138 (135-145) mmol/L Potassium 5.4 H (3.3-5.1) mmol/L Chloride 104 (96-108) mmol/L Carbon Dioxide 25 (22-29) mmol/L Anion Gap 14 (12-20) BUN 17 H (9-16) mg/dL Creatinine 1.47 H (0.5-1.4) mg/dL Estim Creat Clear Calc 23.3 Estimated GFR 35 Random Glucose 111 (60-115) mg/dL Calcium 9.1 (8.4-10.2) mg/dL Magnesium 1.8 (1.6-2.6) mg/dL Total Bilirubin 0.2 (0.0-1.0) mg/dL AST 13 (5-31) U/L ALT 5 (0-31) U/L Alkaline Phosphatase 116 (39-117) U/L Total Protein 7.3 (6.5-8.0) g/dL Albumin 3.6 (3.5-5.0) g/dL Urine Color Yellow Urine Appearance Turbid Urine pH 7.0 (5.0-9.0) Ur Specific [place] 1.015 (1.005-1.025) Urine Protein 300 (3+) H (Neg-Trace) mg/dL Urine Glucose (UA) Negative (Negative) mg/dL Urine Ketones Negative (Negative) mg/dL Urine Blood Moderate (2+) H (Negative) Urine Nitrite Negative (Negative) Ur Leukocyte Esterase Large (3+) H (Negative) Urine RBC >20 H (0-2) /HPF Urine WBC >50 H (0-5) /HPF Urine WBC Clumps Present Ur Squamous Epith Cells >20 (0-2) /HPF Urine Bacteria Trace (None Seen) Hyaline Casts 0-2 (0-2) /LPF Independent Interpretation I performed an independent interpretation of an: CT Scan Radiology Impression Discussion of test interpretation with radiology: I have reviewed the radiologist's reading. Radiologist Impression: FINDINGS: LUNG BASES: The visualized lung bases are unremarkable. LIVER, GALLBLADDER, AND BILIARY TREE: The liver is normal in size, shape, and attenuation. No focal hepatic lesion or biliary ductal dilatation is present. Status post cholecystectomy PANCREAS: Unremarkable. SPLEEN: Unremarkable. ADRENAL GLANDS: Unremarkable. KIDNEYS AND URETERS: Right stent has been removed. There is hydronephrosis on the right and dilated ureter leading up to the bladder. Hydronephrosis is marked On the left there is also hydronephrosis. Hydronephrosis is moderate. Prominent ureter also leading up to the bladder. BLADDER: Bladder is thick-walled. Some increasing stippled calcifications along the right side of the bladder of uncertain etiology. These do not appear to lie within the ureter. GASTROINTESTINAL TRACT: Nonobstructing bowel pattern. There is diverticular disease but no evidence for diverticulitis ABDOMINAL WALL: No significant hernia is appreciated. LYMPH NODES: There is no bulky adenopathy here. VASCULAR: Some atherosclerotic changes are once again noted PELVIC VISCERA: Findings are described above OSSEOUS STRUCTURES: Degenerative changes and scoliosis once again noted. No evidence for a bony lesion. CT/CT abdomen pelvis wo IV con IMPRESSION: The ureteral stent on the right seen previously has been removed. There is marked hydronephrosis on the right and more moderate hydronephrosis on the left with hydroureters leading up to the bladder bilaterally.. The bladder appears thick-walled. The bowel pattern is nonobstructing. Other findings are as described above Fleischner guidelines were followed. Critical Care Time Critical Care Time Critical Care Time: Yes Total Critical Care Time: 45 Attestation: I have personally provided critical care time. Time includes review of lab data, radiology results, discussion with consultants, and monitoring for potential decompensation. Intervention performed as documented. Discharge Plan Discharge Clinical Impression: Abdominal pain, suprapubic, Bilateral hydronephrosis Patient Disposition: Home, Self-Care Instructions: Hydronephrosis (ED) Additional Instructions: Please follow-up with your urologist and primary care physician tomorrow. If you have any worsening or new symptoms, please return to the emergency room or call 911 Prescriptions: New cefuroxime axetil 500 mg tablet 500 mg PO BID Qty: 20 0RF No Action Flovent HFA 110 mcg/actuation HFA aerosol inhaler 1 puff inhalation BID Qty: 12 3RF Dupixent Pen 300 mg/2 mL pen injector 300 mg subcut Q2W 28 Days Qty: 4 12RF Rx Instructions: initially dose 600 mg, then 300 mg subcutaneously every 2 weeks phenazopyridine [Pyridium] 100 mg tablet 100 mg PO TID 5 Days Qty: 15 0RF fesoterodine [Toviaz] 8 mg tablet extended release 24 hr 8 mg PO DAILY 30 Days Qty: 30 1RF nystatin 100,000 unit/mL Suspension 100,000 unit PO TID Qty: 100 2RF Rx Instructions: swish and swallow tid ondansetron 8 mg Tablet,Disintegrating 8 mg PO Q8H PRN (Reason: Nausea) Qty: 30 3RF dexamethasone 4 mg Tablet 4 mg PO BID Qty: 30 3RF Rx Instructions: for2 days after chemo polyethylene glycol 3350 [Miralax] 17 gram Powder In Packet 17 g PO DAILY Qty: 30 3RF sennosides-docusate sodium [Senna with Docusate Sodium] 8.6-50 mg Tablet 1 tab-cap PO BEDTIME Qty: 30 3RF tramadol 50 mg Tablet 50 mg PO Q6H PRN (Reason: Pain) Qty: 60 0RF pravastatin 40 mg tablet 40 mg PO DAILY Combivent Respimat 20-100 mcg/actuation mist 1 puff INHALATION QID gabapentin 100 mg capsule 200 mg PO TID levofloxacin 500 mg tablet 500 mg PO DAILY Qty: 7 0RF lisinopril 10 mg tablet 15 mg PO DAILY Geritol Tonic with Ferrex 18 2.5 mg-50 mg-18 iron/15 mL liquid 15 ml PO DAILY cholecalciferol (vitamin D3) [Vitamin D3] 25 mcg (1,000 unit) tablet,chewable 50 mcg PO QAM Linzess 145 mcg capsule 145 mcg PO QAM Qty: 30 6RF hydrocortisone [Proctosol HC] 2.5 % cream with perineal applicator 1 appl KS BID Qty: 30 6RF Rx Instructions: BE SURE TO INCLUDE RECTAL APPICATOR!! pantoprazole [Protonix] 40 mg tablet,delayed release (DR/EC) 40 mg PO DAILY 30 Days Qty: 30 1RF nitrofurantoin macrocrystal 100 mg capsule 0 mg PO DAILY
[2023-06-02 11:49] LABS: Basophils Percent Auto 0.2 % (0-2); Hematocrit 27.4 % (37.0-47.0); Hemoglobin 8.4 g/dl (12.0-16.0); Imm Gran Abs Auto 0.07 X10*3/uL (0.00-0.03); Imm Gran Pct Auto 0.5 % (0.0-0.4); Lymphocytes Absolute Auto 1.7 X10*3/uL (1.2-4.9); Lymphocytes Percent Auto 12.7 % (20-40); MANUAL DIFF FLAG SCAN; Mean Corpuscular HGB Conc 30.7 g/dl (31.0-35.0); Mean Corpuscular Hemoglobin 29.3 pg (27.0-33.0); Mean Corpuscular Volume 95.5 fL (80.0-98.0); Monocytes Absolute Auto 1.9 X10*3/uL (0.1-1.2); Neutrophils Absolute Auto 9.9 x10*3/uL (2.0-8.3); Neutrophils Percent Auto 72.6 % (45-73); Red Blood Count 2.87 X10*6/uL (4.20-5.50); Red Cell Distribution Width 18.1 % (11.0-16.0); SCAN SMEAR FLAG 1; White Blood Count 13.7 X10*3/uL (4.8-10.8)
[2023-06-02 11:53] LABS: Appearance Urine Turbid; Color Urine Yellow; Glucose Urine UA Negative (Negative); Leukocyte Esterase Urine Large (3+) (Negative); Nitrite Urine Negative (Negative); Specific Gravity - Urine 1.015 (1.005-1.025); UMIC TRIGGER UACC YES; Urine Blood Moderate (2+) (Negative); Urine Ketones Negative (Negative); Urine Protein 300 (3+) mg/dL (Neg-Trace)
[2023-06-02 12:02] LABS: Alanine Aminotransferase 5 U/L (0-31); Albumin Level 3.6 g/dL (3.5-5.0); Alkaline Phosphatase 116 U/L (39-117); Anion Gap 14 (12-20); Aspartate Amino Transferase 13 U/L (5-31); Bilirubin Total 0.2 mg/dL (0.0-1.0); Blood Urea Nitrogen 17 mg/dL (9-16); Calcium 9.1 mg/dL (8.4-10.2); Carbon Dioxide 25 mmol/L (22-29); Chloride 104 mmol/L (96-108); Creatinine Clr Calc Pharmacy 23.3; Estimated Glomerular Filt Rate 35; Glucose Random 111 mg/dL (60-115); Magnesium 1.8 mg/dL (1.6-2.6); Potassium 5.4 mmol/L (3.3-5.1); Sodium 138 mmol/L (135-145); Total Protein 7.3 g/dL (6.5-8.0)
[2023-06-02 12:09] LABS: Bacteria Urine Trace (None Seen); Hyaline Casts Urine 0-2 /LPF (0-2); RBC Urine >20 /HPF (0-2); Squamous Epithelial Cell Urine >20 /HPF (0-2); UACC Culture Trigger YES; WBC Clumps Urine Present; WBC Urine >50 /HPF (0-5)
[2023-06-02 13:00] LABS: Mean Platelet Volume 9.3 fL (9.4-12.3); Platelet Count 857 X10*3/uL (160-400)
[2023-06-02 14:07] LABS: SLIDE REVIEW VERIFIED
[2023-06-02 17:01] VITALS: BP 145/96; PULSE 108; RESP 18; TEMP 36.7; O2SAT 98
--- NOTE | 2023-06-02 17:52 | PC.NURSE ---
Pt is refusing an IV provider aware
== END 2023-06-02 18:47 | disposition home or self-care (01) ==
PROVIDERS: Physician Assistant; Emergency Provider Emergency Medicine
DX: R10.10 Upper abdominal pain, unspecified (principal); N13.30 Unspecified hydronephrosis; Z79.899 Other long term (current) drug therapy
CPT/HCPCS: 36415; 74176; 80053; 81001; 83735; 85025; 87086; 87088; 87186; 99283; 99284

== ENCOUNTER 2023-06-14 08:51 | Outpatient (AMB) | payer OTHER, SELFPAY ==
--- NOTE | 2023-06-14 09:01 | A.OFFVIS_ITS ---
Intake Vital Signs 06/14/23 09:02 Height 5 ft 4 in Weight 104 lb 11.513 oz BMI 18.0 BP 130/78 Blood Pressure Location Lt brachial Position Sitting Pulse 88 Pulse Source Doppler Pulse Oximetry (%) 100 Oxygen Delivery Method Room Air Intake Visit Reasons: preop clearance cystoscopy 06/26 Allergies aspirin [ASA] Allergy (Intermediate, Verified 06/14/23 09:03) RASH ibuprofen [Ibuprofen] Allergy (Intermediate, Verified 06/14/23 09:03) RASH morphine [MORPHINE] Allergy (Intermediate, Verified 06/14/23 09:03) ITCHING naproxen [From NAPROSYN] Allergy (Intermediate, Verified 06/14/23 09:03) RASH,N/V oxycodone [OXYCODONE] Allergy (Intermediate, Verified 06/14/23 09:03) NAUSEA & VOMITING, RASH sulfamethoxazole [From Bactrim] Adverse Reaction (Severe, Verified 06/14/23 09:03) Abdominal Pain trimethoprim [From Bactrim] Adverse Reaction (Severe, Verified 06/14/23 09:03) Abdominal Pain HPI preop clearance cystoscopy 06/26 HPI Details 77-year-old lady, former approximately 1 5 pack-year smoker, quit 2014 followed for dyspnea on exertion and moderate to severe persistent asthma.? She continues to use Flovent, and Combivent, patient also recently was switched from Fasenra to Dupixent, now with improved control of her symptoms. She denies any recent exacerbations. [facility] Medical History Osteoarthritis GERD (gastroesophageal reflux disease) History of COVID-19 Emphysema lung Hyperlipidemia Hypertension Asthma Hemorrhoids with complication UTI (urinary tract infection) Malignant neoplasm of urinary bladder Bladder mass Surgical History History of ERCP Hx laparoscopic cholecystectomy Hx of cystoscopy History of hysterectomy with bilateral oophorectomy Hx of colonoscopy (01/17/19) History of esophagogastroduodenoscopy (EGD) Family History Father No problems noted. Mother Diabetes Brother Lung cancer Daughter Diabetes Social History Household Members: Family Housing: Apartment Do you presently have visiting nurse or other home services: Yes Alcohol intake: never Patient Tobacco Use Status: Former Tobacco user Quit Date: 7 yrs ago Years Smoked: 56 service: No Current occupational status: retired Current occupation: rt handed Review of Systems Const Denies daytime sleepiness, Denies excessive sweating, Denies fatigue, Denies fever(s), Denies lethargy, Denies malaise, Denies night sweats, Denies snoring and Denies weight loss Eyes Denies blurry vision and Denies itchy eyes ENT Denies nasal congestion, Denies post nasal drip, Denies sinus pain, Denies sinus pressure and Denies other ( Thrush) Card Denies chest pain, Denies pedal edema, Denies dyspnea, Denies orthopnea and Denies paroxysmal nocturnal dyspnea Resp Denies cough, Denies hemoptysis, Denies excessive phlegm production, Denies dyspnea, Denies snoring and Denies wheezing GI Denies abdominal pain and Denies heartburn Musc Denies myalgias, Denies arthralgias and Denies joint swelling Skin/Breast Denies rash Neuro Denies memory loss and Denies seizure-like activity Psych Denies abnormal sleep pattern, Denies anxiety and Denies memory loss Endo Denies excessive sweating, Denies fatigue and Denies heat intolerance Elio/Lymph Denies easy bruising Aller/Immun Denies itchy eyes, Denies seasonal rhinorrhea and Denies wheezing Physical Exam Vital Signs: Last Vital Signs Pulse 88 06/14/23 09:02 BP 130/78 06/14/23 09:02 Pulse Ox 100 06/14/23 09:02 Oxygen Delivery Method Room Air 06/14/23 09:02 BMI result Body Mass Index 18.0 Const General: no acute distress and alert Nutritional Appearance: not obese Orientation/consciousness: Other orientation findings ( oriented) HEENT Head: Yes atraumatic Eyes General: appearance normal, both eyes and all related structures Sclerae: sclerae normal EOM: EOMs intact bilaterally Neck Neck: Yes supple Lymphatic: no lymphadenopathy noted Resp Effort & Inspection: normal respiratory effort and no use of accessory muscles Auscultation: clear to auscultation bilaterally Cardio Rate: regular rate Rhythm: regular rhythm Heart sounds: no gallops, no murmurs and no rubs Skin General skin exam: other ( warm) Extrem General: No clubbing, No cyanosis and No edema Assessment & Plan Assessment & Plan (1) Moderate persistent allergic asthma: Code(s): J45.40 - Moderate persistent asthma, uncomplicated Plan: Well controlled on current regimen of Dupixent, Flovent, Combivent. Continue current regimen. (2) Environmental allergies: Code(s): Z91.09 - Other allergy status, other than to drugs and biological substances Plan: Well controlled on Dupixent. Continue current regimen. (3) Encounter for preoperative pulmonary examination: Code(s): Z01.811 - Encounter for preprocedural respiratory examination Plan: At this time patient is at low risk for perioperative pulmonary complications for the proposed cystoscopy either under general anesthesia, or monitored anesthesia care. Coding Level of Care Code Est Pt Level 4 (27078) Diagnoses Moderate persistent allergic asthma J45.40 Environmental allergies Z91.09 Encounter for preoperative pulmonary examination Z01.811
[2023-06-14 09:02] VITALS: BP 130/78; PULSE 88; O2SAT 100; BMI 18.0
== END 2023-06-14 09:26 | disposition home or self-care (01) ==
PROVIDERS: PCP General Practice; Visit Provider Internal Medicine Pulmonary Disease
DX: J45.40 Moderate persistent asthma, uncomplicated (principal); Z91.09 Other allergy status, other than to drugs and biological substances; Z01.811 Encounter for preprocedural respiratory examination
CPT/HCPCS: 99214

== ENCOUNTER → 2023-06-14 08:51 | Outpatient (BNVA) | payer OTHER, SELFPAY | PROVIDERS: PCP General Practice; Visit Provider Internal Medicine Pulmonary Disease | DX: Z01.811 Encounter for preprocedural respiratory examination (principal); J43.9 Emphysema, unspecified; J45.50 Severe persistent asthma, uncomplicated; Z87.891 Personal history of nicotine dependence; Z91.09 Other allergy status, other than to drugs and biological substances | CPT/HCPCS: 99212 ==

== ENCOUNTER 2023-06-16 08:47 | Outpatient (AMB) | payer OTHER, SELFPAY ==
--- NOTE | 2023-06-16 08:49 | MHC.OFFVIS ---
Intake Vital Signs 06/16/23 08:57 06/16/23 09:29 06/16/23 09:49 Height 5 ft 2 in Weight 104 lb BMI 19.0 BP 148/70 H 136/66 137/76 Blood Pressure Location Lt brachial Lt brachial Lt brachial Position Sitting Sitting Sitting Pulse 95 87 75 Pulse Source Pulse Oximeter Pulse Oximeter Pulse Oximeter Pulse Oximetry (%) 96 98 98 Oxygen Delivery Method Room Air Room Air Room Air Comment 15 mins after qutenza application 30 mins after qutenza application Intake Visit Reasons: Qutenza- PN Intake Note: Altaf comes in today for qutenza application to bilateral feet. Pain today 06/20. Lot# [id number] exp [facility]# 63465-910-95 Bit Sander Required: No Accompanied by: Self / Same As Patient Allergies aspirin [ASA] Allergy (Intermediate, Verified 06/16/23 08:50) RASH ibuprofen [Ibuprofen] Allergy (Intermediate, Verified 06/16/23 08:50) RASH morphine [MORPHINE] Allergy (Intermediate, Verified 06/16/23 08:50) ITCHING naproxen [From NAPROSYN] Allergy (Intermediate, Verified 06/16/23 08:50) RASH,N/V oxycodone [OXYCODONE] Allergy (Intermediate, Verified 06/16/23 08:50) NAUSEA & VOMITING, RASH sulfamethoxazole [From Bactrim] Adverse Reaction (Severe, Verified 06/16/23 08:50) Abdominal Pain trimethoprim [From Bactrim] Adverse Reaction (Severe, Verified 06/16/23 08:50) Abdominal Pain HPI HPI Comments History of Present Illness Details Patient presents for application of capsaicin 8% topical patch for peripheral neuropathy in bilateral feet. Denies any recent cough, cold, infection, fever or other significant changes in medical history since last office visit. PRIOR: Patient is a pleasant 77 years old female with prior history lumbar degenerative disc disease, arthritis, levoscoliosis, peripheral neuropathy bladder cancer status post chemotherapy, cystoscopy, percutaneous right nephrostomy tube placement and removal, presents today for initial evaluation of low back pain is radiation into her lower buttocks and posterior lower extremities with weakness, numbness and tingling and had burning and stabbing pain in both feet. Patient also presents with localized tenderness in the projection of bilateral ischial tuberosity. Pain increases with prolonged walking or sitting. Patient is constantly repositioning herself and flexes forward to relieve her lower back pain during today's visit. Patient reports peripheral neuropathy pain in both of her feet. Pain has been constant and is rated 10/10 all the time. Pain affects her general activities, walking, and sleep. Patient reports she has tried manage her pain with tramadol and gabapentin but cannot tolerate it well due to nausea. Denies previous spine surgery or injections. Most recent imaging noted for degenerative spondylosis throughout lumbar spine with moderate levoscoliosis of dorsal lumbar junction. Patient denies any fever, chills, shortness of breath, weight changes, bowel dysfunction or saddle anesthesia. Location Bilateral lower buttocks pain radiates down bilteral lower legs Duration Chronic pain for 4 years Characteristics of symptom or complaint Cramping, squeezing, tingling, stabbing, burning, tingling, numbness Aggravating or associated factors Movements, walking, sitting for long periods of time Relieving factors Tramadol, gapabentin, rest, changing positions, heat therapy Treatment Physical therapy-minimal improvement in function but no pain relief PFSH Medical History Osteoarthritis GERD (gastroesophageal reflux disease) History of COVID-19 Emphysema lung Hyperlipidemia Hypertension Asthma Hemorrhoids with complication UTI (urinary tract infection) Malignant neoplasm of urinary bladder Bladder mass Surgical History History of ERCP Hx laparoscopic cholecystectomy Hx of cystoscopy History of hysterectomy with bilateral oophorectomy Hx of colonoscopy (01/17/19) History of esophagogastroduodenoscopy (EGD) Family History Father No problems noted. Mother Diabetes Brother Lung cancer Daughter Diabetes Social History Household Members: Family Housing: Apartment Do you presently have visiting nurse or other home services: Yes Alcohol intake: never Patient Tobacco Use Status: Former Tobacco user Quit Date: 7 yrs ago Years Smoked: 56 service: No Current occupational status: retired Current occupation: rt handed Review of Systems Const All systems reviewed & are unremarkable except as noted in HPI and below Physical Exam Vital Signs: Last Vital Signs Pulse 87 06/16/23 09:29 BP 136/66 06/16/23 09:29 Pulse Ox 98 06/16/23 09:29 Oxygen Delivery Method Room Air 06/16/23 09:29 BMI result Body Mass Index 19.0 General: Appears afebrile. Alert and oriented. Mood and affect appropriate. Follows and participates in conversation appropriately. Respiratory effort is unlabored. No cough. Able to transition from sit to stand unassisted. Uses walker with ambulated. Ambulates with bilaterally normal heel strike and toe off. Back/Spine/Pelvis Cervical Spine: loss of normal cervical lordosis and No Cervical spine tenderness Thoracic/Lumbar Spine: pain with thoraco-lumbar ROM, thoraco-lumbar ROM limited, No thoracic spinal tenderness and lumbar spinal tenderness at L5 Pelvis: buttock tenderness (lower buttocks in ischial tuberosity) bilaterally Extrem Other: There is a decreased sensation over the soles of the feet and toes. Reports numbness, burning, hot, tingling in both feet. No breaks in the skin. No soft tissue swelling or warmth. +2 pedal pulses bilaterally. Office Procedures Topical Capsaicin Date 1:: 06/16/23 Laterality: Bilateral Location of left foot pain: Plantar, Dorsal, Lateral and Distal Location of right foot pain: Plantar, Dorsal, Lateral and Distal Quality of pain: Aching, Stabbing, Burning, Gnawing, Numb-like and Tiring Details:: Two patches, 560 cm2 were utilized per each foot. EMLA Cream (lidocaine 2.5% and prilocaine 2.5%) was applied at home by patient prior to application of the patches. The patient tolerated the procedure well. Patient?s vitals signs remained stable throughout the procedure. Patient was able to complete the stipulated 30 minutes of the therapeutic application without any discomfort. Office Meds capsaicin-skin cleanser 8 % topical kit Performing Provider: LIZY Blanco Performing Location: [facility] Administered by: LIZY Blanco on 06/16/23 09:14 Dose Route Admin Location Dispensed Lot Number Expiration Date NDC Sprinkler Inspector 4 ea topical [facility] 4 ea [id number] 09/11/25 57005-191-57 [employer] Assessment & Plan Assessment & Plan (1) Peripheral neuropathy: Code(s): G62.9 - Polyneuropathy, unspecified (2) Chronic pain syndrome: Code(s): G89.4 - Chronic pain syndrome (3) Ischial bursitis: Code(s): M70.70 - Other bursitis of hip, unspecified hip (4) Lumbar spondylosis: Code(s): M47.816 - Spondylosis without myelopathy or radiculopathy, lumbar region Plan Patient is status post 1st round of application of topical capsaicin 8% for peripheral neuropathy in bilateral feet. Patient tolerated the procedure without significant discomfort with application of EMLA cream prior to the procedure. She was discharged home in stable condition with discharge instructions. Patient continues to endorse low back pain radiating into her lower buttocks with localized tenderness in the projection of bilateral ischial tuberosity. She is scheduled to undergo ischial tuberosity injections with Dr. Elliott next week. All questions and concerns were answered and the patient agreed with the plan. Greater than 45 minutes were spent in therapeutic application and in coordination of the care. Orders: Orders AMB Capsaicin Patch - Practice Supplied Today G62.9 - Polyneuropathy, unspecified Coding Level of Care Code Est Pt Level 5 (86999) Diagnoses Peripheral neuropathy G62.9 Chronic pain syndrome G89.4 Ischial bursitis M70.70 Lumbar spondylosis M47.816
[2023-06-16 08:57] VITALS: BP 148/70; PULSE 95; O2SAT 96; BMI 19.0
[2023-06-16 09:29] VITALS: BP 136/66; PULSE 87; O2SAT 98
[2023-06-16 09:49] VITALS: BP 137/76; PULSE 75; O2SAT 98
== END 2023-06-16 09:50 | disposition home or self-care (01) ==
PROVIDERS: Visit Provider Nurse Practitioner Family
DX: G62.9 Polyneuropathy, unspecified (principal); G89.4 Chronic pain syndrome; M70.70 Other bursitis of hip, unspecified hip; M47.816 Spondylosis without myelopathy or radiculopathy, lumbar region
CPT/HCPCS: 17999; 99215

== ENCOUNTER → 2023-06-16 08:47 | Outpatient (BNVA) | payer OTHER, SELFPAY | PROVIDERS: Visit Provider Nurse Practitioner Family | DX: M47.816 Spondylosis without myelopathy or radiculopathy, lumbar region (principal); M70.70 Other bursitis of hip, unspecified hip; G62.9 Polyneuropathy, unspecified; G89.4 Chronic pain syndrome | CPT/HCPCS: 17999; 99212; J7336 ==

== ENCOUNTER 2023-06-21 06:00 | Outpatient (REF) | payer OTHER, SELFPAY ==
--- NOTE | ~2023-06-21 | FL_ITS ---
EXAMINATION: XR FLUOROSCOPY WITH IMAGES CLINICAL INFORMATION: Other bursitis of hip, unspecified hip. Bilaterally shield tuberosity and injections. COMPARISON: None available. TECHNIQUE: Fluoroscopy Supervised By: Dr. Misael Elliott. Fluoroscopy Time: 0.1 minute. Cumulative Dose: 0.520 mGy. DAP: 0.524 Gycm2. Images: 2. FINDINGS: Image demonstrates needle placement and contrast injection over the bilateral fascial tuberosities FL/FL guidance in treatment room IMPRESSION: Fluoroscopy guidance for pain management procedure
== END 2023-06-21 06:01 | disposition home or self-care (01) ==
LOC: CF 06:00
PROVIDERS: Visit Provider Internal Medicine
DX: M70.72 Other bursitis of hip, left hip (principal); M70.71 Other bursitis of hip, right hip
CPT/HCPCS: 20610; J3301

== ENCOUNTER 2023-06-21 09:45 | Outpatient (AMB) | payer OTHER, SELFPAY ==
[2023-06-21 09:50] VITALS: BP 120/64; PULSE 99; RESP 14; O2SAT 100
--- NOTE | 2023-06-21 09:50 | MHC.OFFVIS ---
Intake Vital Signs 06/21/23 09:50 06/21/23 10:26 BP 120/64 122/70 Blood Pressure Location Lt brachial Lt brachial Position Sitting Sitting Respiration 14 14 Pulse 99 99 Pulse Source Pulse Oximeter Pulse Oximeter Pulse Oximetry (%) 100 98 Oxygen Delivery Method Room Air Room Air Intake Visit Reasons: salvador ischial tuberosity inj Allergies aspirin [ASA] Allergy (Intermediate, Verified 06/22/23 08:47) RASH ibuprofen [Ibuprofen] Allergy (Intermediate, Verified 06/22/23 08:47) RASH morphine [MORPHINE] Allergy (Intermediate, Verified 06/22/23 08:47) ITCHING naproxen [From NAPROSYN] Allergy (Intermediate, Verified 06/22/23 08:47) RASH,N/V oxycodone [OXYCODONE] Allergy (Intermediate, Verified 06/22/23 08:47) NAUSEA & VOMITING, RASH sulfamethoxazole [From Bactrim] Adverse Reaction (Severe, Verified 06/22/23 08:47) Abdominal Pain trimethoprim [From Bactrim] Adverse Reaction (Severe, Verified 06/22/23 08:47) Abdominal Pain HPI salvador ischial tuberosity inj HPI Details Patient presents for scheduled procedure. Denies any recent cough, cold, infection, fever or other significant changes in medical history since last office visit. [facility] Medical History Osteoarthritis GERD (gastroesophageal reflux disease) History of COVID-19 Emphysema lung Hyperlipidemia Hypertension Asthma Hemorrhoids with complication UTI (urinary tract infection) Malignant neoplasm of urinary bladder Bladder mass Surgical History History of ERCP Hx laparoscopic cholecystectomy Hx of cystoscopy History of hysterectomy with bilateral oophorectomy Hx of colonoscopy (01/17/19) History of esophagogastroduodenoscopy (EGD) Family History Father No problems noted. Mother Diabetes Brother Lung cancer Daughter Diabetes Social History Household Members: Family Housing: Apartment Do you presently have visiting nurse or other home services: Yes Alcohol intake: never Patient Tobacco Use Status: Former Tobacco user Quit Date: 7 yrs ago Years Smoked: 56 service: No Current occupational status: retired Current occupation: rt handed Physical Exam Vital Signs: Last Vital Signs Pulse 99 06/21/23 10:26 Resp 14 06/21/23 10:26 BP 122/70 06/21/23 10:26 Pulse Ox 98 06/21/23 10:26 Oxygen Delivery Method Room Air 06/21/23 10:26 Office Procedures Joint Injection/Drain Joint Injection/Drain Details: Ischial Bursa Injection, bilateral After informed written consent was obtained, the patient was placed in the prone position. Pre-procedure oxygen saturation, heart rate, and blood pressure were recorded. The skin was prepped with Chloroprep, and draped in a sterile fashion. With the use of fluroscopy the ischial trochanter was identified on each side. With a 25-gauge 1.5 hypodermic needle 1% lidocaine was injected subcutaneously over the entry site. A 22-gauge 3.5 spinal needle was then advanced toward the ischial bursa. Once in position, and after negative aspiration, 0.5mL of Omnipaque was injected outlining the bursa followed by injection of 20 mg Kenalog mixed with 0.5% bupivcaine (3mL total). There was no evidence of paresthesias throughout needle placement. The stylet was replaced and then the needle was withdrawn. The same procedure was repeated on the other side. The patient tolerated the procedure well and there was no evidence of procedural complications. The patient was observed in the procedure room for 20 minutes, vitals were stable, and discharged in stable condition. Coding Procedure code (CPT) selection complete Assessment & Plan Assessment & Plan (1) Ischial bursitis: Code(s): M70.70 - Other bursitis of hip, unspecified hip Plan Patient is status post Bilateral ischial bursa injections. Patient tolerated procedure well and was discharged home in stable condition with discharge instructions. All questions were answered. We will follow-up via telephone or in clinic to assess response to therapy. A follow-up appointment was made during today's visit. If these are not helpful, it may be worth exploring her spine further as the source of her symptoms Orders: Orders FL guidance in treatment room 06/21/23 M70.70 - Other bursitis of hip, unspecified hip Coding Level of Care Code Procedure Only Diagnoses Ischial bursitis M70.70
[2023-06-21 10:26] VITALS: BP 122/70; PULSE 99; RESP 14; O2SAT 98
== END 2023-06-21 10:25 | disposition home or self-care (01) ==
LOC: HO.PMCPRC 09:45
PROVIDERS: PCP General Practice; Visit Provider Internal Medicine
DX: M70.71 Other bursitis of hip, right hip (principal); M70.72 Other bursitis of hip, left hip
CPT/HCPCS: 20610; 77002

== ENCOUNTER 2023-06-22 08:44 | Outpatient (AMB) | payer OTHER, SELFPAY ==
--- NOTE | 2023-06-22 08:46 | A.OFFVIS_ITS ---
Intake Intake Visit Reasons: Surgery questions (06/26) Intake Note: Patient is Present for Telephone Follow Up For Surgery Questions Urology Med: Fesoterodine, Oxybutynin Antibiotic Allergy: Sulfa Antibiotics, Trimethroprim Blood Thinner: None Pharamcy: [facility] Allergies aspirin [ASA] Allergy (Intermediate, Verified 06/22/23 08:47) RASH ibuprofen [Ibuprofen] Allergy (Intermediate, Verified 06/22/23 08:47) RASH morphine [MORPHINE] Allergy (Intermediate, Verified 06/22/23 08:47) ITCHING naproxen [From NAPROSYN] Allergy (Intermediate, Verified 06/22/23 08:47) RASH,N/V oxycodone [OXYCODONE] Allergy (Intermediate, Verified 06/22/23 08:47) NAUSEA & VOMITING, RASH sulfamethoxazole [From Bactrim] Adverse Reaction (Severe, Verified 06/22/23 08:47) Abdominal Pain trimethoprim [From Bactrim] Adverse Reaction (Severe, Verified 06/22/23 08:47) Abdominal Pain HPI HPI Comments History of Present Illness Details Altaf is a pleasant female. She is a patient of . She seen for the following urologic conditions - recurrent high-grade bladder cancer in [facility] Telemedicine Evaluation 15 min Consultation [employer] [place] Video attempted Welsh translation provided by qualified medical imaging technologist Had removal of right PCN in 05/03 Needs cysto, bladder biopsy, bilateral retrogrades Labs Cr 06/[address] right hydro, left mild hydro Completed neoadjuvant chemotherapy Right PCN placed after presentation for NADEEN - creatinine resolving from 2.9 down to 0.94 - 03/[address] scan with resol ution of bladder thickening, right hydronephrosis. 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 The bladder is partially distended with irregular wall thickening and trabeculated appearance. Dilated appearance of both distal ureters. Moderate right hydronephrosis. Mild left hydronephrosis. No lymphadenopathy. Bladder cancer superficial high-grade 2019 - disease progression - 12/01 muscle invasive bladder cancer Initial diagnosis with Dr. Hankins TURBT 05/30 high-grade superficial noninvasive disease Adjuvant therapy BCG June 2019 Surveillance cystoscopy - 04/30 NAD, 10/01 NAD, 10/02 NAD - trabecu lated bladder with BCG change PFSH Medical History (Updated 06/29/23 @ 13:53 by Severo Blair MD) Chronic pain syndrome Osteoarthritis GERD (gastroesophageal reflux disease) History of COVID-19 Emphysema lung Hyperlipidemia Hypertension Asthma Hemorrhoids with complication UTI (urinary tract infection) Malignant neoplasm of urinary bladder Bladder mass Surgical History (Updated 06/23/23 @ 08:40 by Cee Ragsdale RN) History of surgery History of ERCP Hx laparoscopic cholecystectomy Hx of cystoscopy History of hysterectomy with bilateral oophorectomy Hx of colonoscopy (01/17/19) History of esophagogastroduodenoscopy (EGD) Family History Father No problems noted. Mother Diabetes Brother Lung cancer Daughter Diabetes Social History Household Members: Family Housing: Apartment Do you presently have visiting nurse or other home services: Yes Alcohol intake: never Patient Tobacco Use Status: Former Tobacco user Quit Date: 7 yrs ago Years Smoked: 56 service: No Current occupational status: retired Current occupation: rt handed Review of Systems Const All systems reviewed & are unremarkable except as noted in HPI and below Reports no additional complaints Resp Reports no additional complaints GI Reports no additional complaints Reports as per HPI Musc Reports no additional complaints Physical Exam Telemedicine evaluation Appropriate responses Regular breathing rate and rhythm HEENT Head: Yes normal to inspection Ears: hearing grossly normal bilaterally Eyes General: appearance normal, both eyes and all related structures Neck Neck: Yes normal visual inspection Chest Chest palpation & inspection: normal inspection of the chest Resp Effort & Inspection: normal respiratory effort and able to speak in complete sentences Assessment & Plan Assessment & Plan (1) Bladder cancer: Comment: 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 No major barriers to patient understanding were identified. An opportunity to ask questions regarding the treatment plan was provided. All questions were answered. The patient expressed understanding and agreement with the above treatment plan. The patient is aware they should contact our office by phone for worsening of their current condition or the appearance of new urologic symptoms. Compliance is encouraged with any medications and followup testing that is ordered. It is a privilege to participate in the urologic care of your patient. If you have any questions or concerns regarding treatment for the above conditions, or other urologic issues, please do not hesitate to contact me. The office telephone contact is [phone]. This note is constructed using voice recognition software. While every effort has been made to ensure accuracy loan adviser errors may have been included. Yours sincerely, Dr Severo Blair MD, [facility] - Urology Providers of Expert, Compassionate Care for the Genitourinary System Telehealth Telehealth Location of provider rendering services: practice address Location of patient: address on file Patient Identification confirmed using: Name, : Yes Telehealth method: voice only Patient verbally consented to treatment: Yes Patient verbally consented to billing insurance company: Yes Patient informed of any privacy concerns related to visit: Yes Coding Level of Care Code Tele Est Pt Level 3 (40012) Diagnoses Malignant neoplasm of overlapping sites of bladder C67.8 Bladder location: overlapping sites
== END 2023-06-22 09:00 ==
LOC: HO.HUSH 08:44
PROVIDERS: PCP General Practice; Visit Provider Urology
DX: C67.8 Malignant neoplasm of overlapping sites of bladder (principal)
CPT/HCPCS: 99442

== ENCOUNTER → 2023-06-22 08:44 | Outpatient (BNVA) | payer OTHER, SELFPAY | PROVIDERS: PCP General Practice; Visit Provider Urology ==

== ENCOUNTER 2023-06-26 12:18 | Day surgery (SDC) | payer OTHER, SELFPAY ==
--- NOTE | 2023-06-22 12:41 | HO.ANESPROP2 ---
Documented by User: Mitzi Kat NP 06/22/23 12:42 HPI - Anesthesia Eval Consult details Narrative: 77yo F for Bilateral Cystoscopy Retrograde,with poss stent, Cystoscopy & Bladder Biopsy Pulmo optimized per 06/14/23 office visit s/p TURBT 12/2022 with GA-LMA 4 PMFSH Active Problems Active Problems: All Active Problems (Updated 06/16/23 @ 09:47 by LIZY Blanco) Chronic pain syndrome (Acute) Encounter for preoperative pulmonary examination (Acute) Lumbar radiculopathy (Chronic) Ischial bursitis (Acute) Lumbar spondylosis (Acute) Levoscoliosis of lumbar spine (Acute) Lumbar degenerative disc disease (Acute) Peripheral neuropathy (Acute) 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 (Acute) NADEEN (acute kidney injury) (Acute) Acute UTI (Acute) Hematuria (Acute) Encounter for preoperative pulmonary examination (Acute) Hydronephrosis (Acute) Trochanteric bursitis of left hip (Acute) Tendonitis of left rotator cuff (Acute) Low back pain due to bilateral sciatica (Acute) Chronic idiopathic constipation (Acute) Nausea and vomiting (Acute) Trochanteric bursitis, right hip (Acute) Moderate persistent allergic asthma (Acute) Gastroesophageal reflux disease (Acute) Cough (Acute) Environmental allergies (Acute) Right-sided ischial pain (Acute) Hemorrhoids with complication (Acute) Abdominal cramping (Acute) Bronchitis (Acute) Small intestinal bacterial overgrowth (Acute) Primary osteoarthritis, left shoulder (Acute) Dysuria (Acute) Recurrent cough (Acute) Back pain (Acute) Vaginal pain (Acute) Osteoarthritis of shoulders, bilateral (Acute) H/O primary malignant neoplasm of urinary bladder (Acute) Hematuria (Acute) Bladder mass (Acute) Sepsis (Acute) UTI (urinary tract infection) (Acute) COVID-19 (Acute) Vaginal mass (Acute) Malignant neoplasm of bladder neck (Acute) Bladder cancer (Acute) Candidal urinary tract infection (Acute) Hemorrhoids with complication (Acute) Malignant neoplasm of urinary bladder (Acute) UTI (urinary tract infection) (Acute) Past Medical History Medical History (Updated 06/23/23 @ 08:39 by Cee Ragsdale RN) Chronic pain syndrome Osteoarthritis GERD (gastroesophageal reflux disease) History of COVID-19 Emphysema lung Hyperlipidemia Hypertension Asthma Hemorrhoids with complication UTI (urinary tract infection) Malignant neoplasm of urinary bladder Bladder mass Family History Family History Father No problems noted. Mother Diabetes Brother Lung cancer Daughter Diabetes Family history of problems with anesthesia: No Surgical History Surgical History (Updated 06/23/23 @ 08:40 by Cee Ragsdale RN) History of surgery History of ERCP Hx laparoscopic cholecystectomy Hx of cystoscopy History of hysterectomy with bilateral oophorectomy Hx of colonoscopy (01/17/19) History of esophagogastroduodenoscopy (EGD) History of Problems with Anesthesia: No Social History Social History Household Members: Family Housing: Apartment Do you presently have visiting nurse or other home services: Yes Alcohol intake: never Patient Tobacco Use Status: Former Tobacco user Quit Date: 7 yrs ago Years Smoked: 56 Advance Directives: No Advance Directives Information Provided: Yes service: No Current occupational status: retired Current occupation: rt handed Meds Allergies Allergy/AdvReac Type Severity Reaction Status Date / Time aspirin [ASA] Allergy Intermediate RASH Verified 06/22/23 08:47 ibuprofen [Ibuprofen] Allergy Intermediate RASH Verified 06/22/23 08:47 morphine [MORPHINE] Allergy Intermediate ITCHING Verified 06/22/23 08:47 naproxen [From NAPROSYN] Allergy Intermediate RASH,N/V Verified 06/22/23 08:47 oxycodone [OXYCODONE] Allergy Intermediate NAUSEA & Verified 06/22/23 08:47 VOMITING, RASH sulfamethoxazole AdvReac Severe Abdominal Verified 06/22/23 08:47 [From Bactrim] Pain trimethoprim [From Bactrim] AdvReac Severe Abdominal Verified 06/22/23 08:47 Pain Home Medications Medication Instructions Recorded Confirmed Last Taken Type lisinopril 10 mg tablet 15 mg PO DAILY 03/09/22 06/23/23 08/12/22 History P2-P4-I6-K2-M8-xolf-methn-choln 15 ml PO DAILY 12/16/22 06/23/23 Unknown History 2.5 mg-50 mg-18 mg iron/15 mL oral liq (Geritol Tonic with Ferrex 18) cholecalciferol (vitamin D3) 25 50 mcg PO QAM 12/16/22 06/23/23 Unknown History mcg (1,000 unit) chewable tablet (Vitamin D3) gabapentin 100 mg capsule 200 mg PO TID 12/28/22 06/23/23 Unknown History ipratropium 20 mcg-albuterol 100 1 puff inhalation QID 12/28/22 06/23/23 Unknown History mcg/actuation mist for inhalation (Combivent Respimat) pravastatin 40 mg tablet 40 mg PO DAILY 12/28/22 06/23/23 Unknown History nitrofurantoin macrocrystal 100 mg 0 mg PO DAILY 03/08/23 06/07/23 Unknown History capsule fesoterodine 8 mg tablet,extended 8 mg PO DAILY 06/16/23 06/23/23 Unknown History release 24 hr hydroxyzine HCl 25 mg tablet 25 mg PO TID 06/16/23 06/23/23 Unknown History oxybutynin chloride 10 mg 10 mg PO DAILY 06/16/23 06/23/23 Unknown History tablet,extended release 24 hr Exam Exam Date and Time: June 22, 2023 1241 Narrative Narrative: EKG 08/2022 Vent. Rate : 095 BPM Atrial Rate : 095 BPM P-R Int : 166 ms QRS Dur : 078 ms QT Int : 374 ms P-R-T Axes : 074 002 066 degrees QTc Int : 469 ms Normal sinus rhythm Normal ECG When compared with ECG of 01-MAR-2018 14:42, No significant change was found Assessment and Plan Assessment Anesthesia Assessment: Chart Reviewed Final Anesthetic Review Family History of Problems with Anesthesia: No History of Problems with Anesthesia: No Documented by User: Ketan Escamilla MD 06/26/23 13:52 [facility] Past Medical History Medical History (Updated 06/23/23 @ 08:39 by Cee Ragsdale RN) Chronic pain syndrome Osteoarthritis GERD (gastroesophageal reflux disease) History of COVID-19 Emphysema lung Hyperlipidemia Hypertension Asthma Hemorrhoids with complication UTI (urinary tract infection) Malignant neoplasm of urinary bladder Bladder mass Family History Family History Father No problems noted. Mother Diabetes Brother Lung cancer Daughter Diabetes Family history of problems with anesthesia: No Surgical History Surgical History (Updated 06/23/23 @ 08:40 by Cee Ragsdale RN) History of surgery History of ERCP Hx laparoscopic cholecystectomy Hx of cystoscopy History of hysterectomy with bilateral oophorectomy Hx of colonoscopy (01/17/19) History of esophagogastroduodenoscopy (EGD) Social History Social History Household Members: Family Housing: Apartment Do you presently have visiting nurse or other home services: Yes Alcohol intake: never Patient Tobacco Use Status: Former Tobacco user Quit Date: 7 yrs ago Years Smoked: 56 Advance Directives: No Advance Directives Information Provided: Yes service: No Current occupational status: retired Current occupation: rt handed Meds Allergies Allergy/AdvReac Type Severity Reaction Status Date / Time aspirin [ASA] Allergy Intermediate RASH Verified 06/22/23 08:47 ibuprofen [Ibuprofen] Allergy Intermediate RASH Verified 06/22/23 08:47 morphine [MORPHINE] Allergy Intermediate ITCHING Verified 06/22/23 08:47 naproxen [From NAPROSYN] Allergy Intermediate RASH,N/V Verified 06/22/23 08:47 oxycodone [OXYCODONE] Allergy Intermediate NAUSEA & Verified 06/22/23 08:47 VOMITING, RASH sulfamethoxazole AdvReac Severe Abdominal Verified 06/22/23 08:47 [From Bactrim] Pain trimethoprim [From Bactrim] AdvReac Severe Abdominal Verified 06/22/23 08:47 Pain Home Medications Medication Instructions Recorded Confirmed Last Taken Type lisinopril 10 mg tablet 15 mg PO DAILY 03/09/22 06/23/23 08/12/22 History H2-O3-L3-Z5-N7-zbtp-methn-choln 15 ml PO DAILY 12/16/22 06/23/23 Unknown History 2.5 mg-50 mg-18 mg iron/15 mL oral liq (Geritol Tonic with Ferrex 18) cholecalciferol (vitamin D3) 25 50 mcg PO QAM 12/16/22 06/23/23 Unknown History mcg (1,000 unit) chewable tablet (Vitamin D3) gabapentin 100 mg capsule 200 mg PO TID 12/28/22 06/23/23 Unknown History ipratropium 20 mcg-albuterol 100 1 puff inhalation QID 12/28/22 06/23/23 Unknown History mcg/actuation mist for inhalation (Combivent Respimat) pravastatin 40 mg tablet 40 mg PO DAILY 12/28/22 06/23/23 Unknown History nitrofurantoin macrocrystal 100 mg 0 mg PO DAILY 03/08/23 06/07/23 Unknown History capsule fesoterodine 8 mg tablet,extended 8 mg PO DAILY 06/16/23 06/23/23 Unknown History release 24 hr hydroxyzine HCl 25 mg tablet 25 mg PO TID 06/16/23 06/23/23 Unknown History oxybutynin chloride 10 mg 10 mg PO DAILY 06/16/23 06/23/23 Unknown History tablet,extended release 24 hr Exam Airway Mallampati Class: I TM Dist: >3cm Neck ROM: Full Loose/Missing/Broken Teeth: Yes, Upper and Lower Heart: ok Lungs: ok Assessment and Plan Assessment Anesthesia Assessment: Anesthesia Plan Discussed Final Anesthetic Review Family History of Problems with Anesthesia: No NPO: Yes ASA Class: III Final Preanesthetic Review: No Changes in Pt Med Stat, Meds/Allgs Chart Reviewed, Consent Obtained/Reviewed and Anes Risks/Benef Reviewed Patient Risk: Intermediate Procedure Risk: Low Anesthetic Plan Anesthetic Plan: GA and Agree w/ Assess. and Plan Disposition: Standard PACU
[2023-06-23 08:56] VITALS: BMI 17.8
[2023-06-26] VITALS (19 sets, daily range): BP systolic 117–170; BP diastolic 58–89; PULSE 68–81; RESP 16–20; TEMP 36.3–37.5; O2SAT 96–100
--- NOTE | ~2023-06-26 | FL_ITS ---
EXAMINATION: XR FLUOROSCOPY WITH IMAGES CLINICAL INFORMATION: Cystography, possible stent/biopsy. COMPARISON: Right nephroureterostomy change April 2023 TECHNIQUE: Fluoroscopy Supervised By: Dr. Severo Blair. Fluoroscopy Time: 7.4 seconds. Cumulative Dose: 1.20 mGy. DAP: Not available. Images: 2. FINDINGS: Intraoperative fluoroscopy guidance. 2 AP images of the pelvis are submitted. Right nephroureterostomy tube not definitely seen. FL/FL guidance in OR IMPRESSION: Fluoroscopy guidance for urology procedure
[2023-06-26 13:12] LABS: Hematocrit 34.3 % (37.0-47.0); Hemoglobin 10.4 g/dl (12.0-16.0); Mean Corpuscular HGB Conc 30.3 g/dl (31.0-35.0); Mean Corpuscular Hemoglobin 28.3 pg (27.0-33.0); Mean Corpuscular Volume 93.2 fL (80.0-98.0); Mean Platelet Volume 10.1 fL (9.4-12.3); Platelet Count 438 X10*3/uL (160-400); Red Blood Count 3.68 X10*6/uL (4.20-5.50); Red Cell Distribution Width 17.2 % (11.0-16.0); White Blood Count 9.5 X10*3/uL (4.8-10.8)
[2023-06-26 13:27] LABS: Anion Gap 14 (12-20); Blood Urea Nitrogen 42 mg/dL (9-16); Calcium 10.3 mg/dL (8.4-10.2); Carbon Dioxide 23 mmol/L (22-29); Chloride 108 mmol/L (96-108); Creatinine Clr Calc Pharmacy 36.3; Estimated Glomerular Filt Rate 55; Glucose Fasting 97 mg/dL (60-99); Sodium 140 mmol/L (135-145)
[2023-06-26] MEDS: Lactated Ringers 1,000 ML 100 ML IVCONT (14:03)
--- NOTE | 2023-06-26 15:01 | MHC.SHP ---
Pre-Procedural Eval Section A Date of Service: 06/26/23 The patient is an INPATIENT: No Changes since office visit: No Cold of Flu in the past 2 weeks, No New Medical Problems, No Changes in Medication and No Patient answered all questions The History & Physical has been completed within 30 days and I have reviewed it.: Yes Section B Chief Complaint: Malignant neoplasm of bladder, unspecified Details of Present Illness: Bladder cancer with bilateral hydronephrosis Allergies: Allergies Allergy/AdvReac Type Severity Reaction Status Date / Time aspirin [ASA] Allergy Intermediate RASH Verified 06/22/23 08:47 ibuprofen [Ibuprofen] Allergy Intermediate RASH Verified 06/22/23 08:47 morphine [MORPHINE] Allergy Intermediate ITCHING Verified 06/22/23 08:47 naproxen [From NAPROSYN] Allergy Intermediate RASH,N/V Verified 06/22/23 08:47 oxycodone [OXYCODONE] Allergy Intermediate NAUSEA & Verified 06/22/23 08:47 VOMITING, RASH sulfamethoxazole AdvReac Severe Abdominal Verified 06/22/23 08:47 [From Bactrim] Pain trimethoprim [From Bactrim] AdvReac Severe Abdominal Verified 06/22/23 08:47 Pain Plan Diagnosis/Plan: Unchanged ( cystoscopy, bladder biopsy, bilateral retrograde with possible stent placement) I have reviewed the history and physical and performed a pertinent physical examination on my patient. No changes have occurred unless specified. Time Spent With Patient Time: Total time managing care of this patient today ____ minutes.
--- NOTE | 2023-06-26 15:44 | P.OP_ITS ---
Operative Note Operative Note Date of Service: 06/26/23 Narrative: PreOperative Diagnosis: bladder cancer, bilateral hydronephrosis Post Operative Diagnosis: bladder cancer, bilateral hydronephrosis Procedure: cystoscopy, bladder biopsy, fulguration, attempt at bilateral retrogrades Surgeon: Dr Severo Blair Anesthesia: LMA Indications for procedure: Superficial bladder cancer. Here for cystoscopy, bladder biopsy, bilateral retrograde. Evaluation. Procedure: After informed consent was verified the patient was brought to the operating room and placed in a supine position. Anesthesia was administered per protocol. The patient was placed in modified dorsal lithotomy position and prepped and draped in a sterile fashion. Safety pause time-out was performed. Antibiotics being given. Cystoscopy was performed. Bladder noted to have significant cystocele. Remarkable improvement around bladder neck. change noted on left bladder sidewall. May represent remnant disease. Attempt made at retrograde. There was significant descensus of bladder secondary to cystocele. Unable to cannulate ureteric orifice on right side or l eft side. Creatinine today measured 0.9 suggestive that washed hydronephrosis might exist there is adequate urinary flow. Multiple biopsy taken of left side wall abnormality. Fulguration performed. The patient tolerated the procedure well. They were extubated in operating room and transferred in stable conditions recovery area. Pathology: Bladder biopsies Drains: None
[2023-06-26] MEDS: fentaNYL citrate/PF 100 MCG/2 ML VIAL 50 MCG IVPUSH ×4 (15:57→16:15)
[2023-06-26] MEDS: HYDROmorphone HCl 0.5 MG/0.5 ML SYRINGE IVPUSH ×4 (16:20→16:50)
[2023-06-26] MEDS: Acetaminophen 1,000 MG/100 ML PIGGYBACK 400 MG IV (17:10)
== END 2023-06-26 17:40 | disposition home or self-care (01) ==
PROVIDERS: Nurse Practitioner; PCP General Practice; Visit Provider Urology
PROC: 0TJB8ZZ Inspection of Bladder, Via Natural or Artificial Opening Endoscopic (ICD-10-PCS; CPT 52000; principal; 2023-06-26 14:20)
PROC: (CPT 52204; 2023-06-26 14:20)
DX: C67.9 Malignant neoplasm of bladder, unspecified (principal); N13.30 Unspecified hydronephrosis; N81.10 Cystocele, unspecified; Z87.440 Personal history of urinary (tract) infections; I10 Essential (primary) hypertension; E78.5 Hyperlipidemia, unspecified; J43.9 Emphysema, unspecified; J45.909 Unspecified asthma, uncomplicated; Z87.891 Personal history of nicotine dependence; Z79.899 Other long term (current) drug therapy; Z88.2 Allergy status to sulfonamides; Z88.5 Allergy status to narcotic agent; Z88.8 Allergy status to other drugs, medicaments and biological substances; Z98.890 Other specified postprocedural states
CPT/HCPCS: 52204; 52005; 36415; 80048; 85027; 88305; C1769; J0131; J1170; J1956; J3010; Q9967

== ENCOUNTER → 2023-06-26 12:18 | Outpatient (BNV) | payer OTHER, SELFPAY | PROVIDERS: PCP General Practice; Visit Provider Urology | DX: C67.2 Malignant neoplasm of lateral wall of bladder (principal) | CPT/HCPCS: 52204; 74420 ==

== ENCOUNTER 2023-07-06 08:32 | Outpatient (AMB) | payer OTHER, SELFPAY ==
--- NOTE | 2023-07-06 08:39 | MHC.OFFVIS ---
Intake Vital Signs 07/06/23 08:43 Height 5 ft 4 in Weight 104 lb 6 oz BMI 17.9 BP 133/63 Blood Pressure Location Lt brachial Position Sitting Pulse 85 Pulse Source Pulse Oximeter Pulse Oximetry (%) 96 Oxygen Delivery Method Room Air Intake Visit Reasons: s/p salvador ischial tuberosity inj Intake Note: Pain today 05/21. Activated Sludge Operator Required: No Accompanied by: Self / Same As Patient Allergies aspirin [ASA] Allergy (Intermediate, Verified 07/06/23 08:44) RASH ibuprofen [Ibuprofen] Allergy (Intermediate, Verified 07/06/23 08:44) RASH morphine [MORPHINE] Allergy (Intermediate, Verified 07/06/23 08:44) ITCHING naproxen [From NAPROSYN] Allergy (Intermediate, Verified 07/06/23 08:44) RASH,N/V oxycodone [OXYCODONE] Allergy (Intermediate, Verified 07/06/23 08:44) NAUSEA & VOMITING, RASH sulfamethoxazole [From Bactrim] Adverse Reaction (Severe, Verified 07/06/23 08:44) Abdominal Pain trimethoprim [From Bactrim] Adverse Reaction (Severe, Verified 07/06/23 08:44) Abdominal Pain HPI HPI Comments History of Present Illness Details Patient presents to assess response to bilateral ischial bursal injection on 06/21/[address] Elliott. Patient reports no pain relief status post procedure and reports worsening of right sided radiculopathy with spinal-stenosis related pain. Pain radiates into her right buttock and shooting down posteriorly right lower extremity and into the sole of her left foot. She continues to experience pain with sitting, worse on the right side. Bending down, walking, standing or flexion forward will exacerbate her symptoms and at times causes her loose her balance. Denies any bladder or bowel dysfunction, foot drop or saddle anesthesia. Lumbar spine MRI was ordered on 05/30/23 and patient was contacted twice by MRI but not scheduled yet. We notified MRI department today to contact patient again. PRIOR: Patient is a pleasant 77 years old female with prior history lumbar degenerative disc disease, arthritis, levoscoliosis, peripheral neuropathy bladder cancer status post chemotherapy, cystoscopy, percutaneous right nephrostomy tube placement and removal, presents today for initial evaluation of low back pain is radiation into her lower buttocks and posterior lower extremities with weakness, numbness and tingling and had burning and stabbing pain in both feet. Patient also presents with localized tenderness in the projection of bilateral ischial tuberosity. Pain increases with prolonged walking or sitting. Patient is constantly repositioning herself and flexes forward to relieve her lower back pain during today's visit. Patient reports peripheral neuropathy pain in both of her feet. Pain has been constant and is rated 10/10 all the time. Pain affects her general activities, walking, and sleep. Patient reports she has tried manage her pain with tramadol and gabapentin but cannot tolerate it well due to nausea. Denies previous spine surgery or injections. Most recent imaging noted for degenerative spondylosis throughout lumbar spine with moderate levoscoliosis of dorsal lumbar junction. Patient denies any fever, chills, shortness of breath, weight changes, bowel dysfunction or saddle anesthesia. Location Bilateral lower buttocks pain radiates down bilteral lower legs Duration Chronic pain for 4 years Characteristics of symptom or complaint Cramping, squeezing, tingling, stabbing, burning, tingling, numbness Aggravating or associated factors Movements, walking, sitting for long periods of time Relieving factors Tramadol, gapabentin, rest, changing positions, heat therapy Treatment Physical therapy-minimal improvement in function but no pain relief PFSH Medical History Chronic pain syndrome Osteoarthritis GERD (gastroesophageal reflux disease) History of COVID-19 Emphysema lung Hyperlipidemia Hypertension Asthma Hemorrhoids with complication UTI (urinary tract infection) Malignant neoplasm of urinary bladder Bladder mass Surgical History History of surgery History of ERCP Hx laparoscopic cholecystectomy Hx of cystoscopy History of hysterectomy with bilateral oophorectomy Hx of colonoscopy (01/17/19) History of esophagogastroduodenoscopy (EGD) Family History Father No problems noted. Mother Diabetes Brother Lung cancer Daughter Diabetes Social History Household Members: Family Housing: Apartment Do you presently have visiting nurse or other home services: Yes Alcohol intake: never Patient Tobacco Use Status: Former Tobacco user Quit Date: 7 yrs ago Years Smoked: 56 service: No Current occupational status: retired Current occupation: rt handed Review of Systems Const All systems reviewed & are unremarkable except as noted in HPI and below Physical Exam General: Appears afebrile. Alert and oriented. Mood and affect appropriate. Anxious. Follows and participates in conversation appropriately. Respiratory effort is unlabored. No cough. Able to transition from sit to stand unassisted. Ambulates with bilaterally normal heel strike and toe off. Back/Spine/Pelvis Other: Slow antalgic gait with mild limping. Can flex forward to 55-65 degrees and extend to 5-10 degrees before experiencing lumbar pain. Demonstrates 5/5 left and 4/5 right strength of quadriceps bilaterally as well as flexion/dorsiflexion of bilateral feet against resistance. 2+ pedal pulses bilaterally. Seated straight leg rise with dorsiflexion positive bilaterally, right>left. Diminished patellar and achilles reflexes bilaterally, R<L. Facet loading test positive bilaterally. Mike sign, Bryan?s are positive bilaterally and the reproduces lateral hip pain bilaterally and minimal low back pain. No groin pain with I/E hip rotations. Valsalva maneuver negative. Cervical Spine: cervical ROM normal and No Cervical spine tenderness Thoracic/Lumbar Spine: thoracic and lumbar spine normal to inspection, No Thoracic/lumbar spine scar(s), Lasegue's sign positive (localized on right in L5-S1, diffuse on left), pain with thoraco-lumbar ROM, paraspinal muscle tenderness, thoraco-lumbar ROM limited, Thoracic/lumbar scoliosis, thoracic spinal tenderness at T11 and at T12 and lumbar spinal tenderness at L4 and at L5 Pelvis: buttock tenderness bilaterally and sciatic notch tenderness on the right Sacroiliac joints: bilaterally tender to palpation Assessment & Plan Assessment & Plan (1) Ischial bursitis: Code(s): M70.70 - Other bursitis of hip, unspecified hip (2) Levoscoliosis of lumbar spine: Code(s): M41.86 - Other forms of scoliosis, lumbar region (3) Lumbar degenerative disc disease: Code(s): M51.36 - Other intervertebral disc degeneration, lumbar region (4) Lumbar spondylosis: Code(s): M47.816 - Spondylosis without myelopathy or radiculopathy, lumbar region (5) Lumbar radiculopathy: Code(s): M54.16 - Radiculopathy, lumbar region Plan Patient is status post Bilateral ischial bursa injections on 06/21/23 with no pain relief. She has pending lumbar spine MRI to assess her spinal-stenosis related pain with bilateral right sided radiculopathy, as well as occasional symptoms on the left. Attempts were made by MRI department last month and yesterday to contact patient. Patient was reminded today to complete MRI. Patient is aware to call if pain worsens or if she develops any red flag symptoms to seek emergency care. Patient denies any cauda equina syndrome symptoms at this time. All questions and concerns have been answered and patient agreed with the plan. Follow up for MRI review and sooner if needed. Coding Level of Care Code Est Pt Level 3 (65541) Diagnoses Ischial bursitis M70.70 Levoscoliosis of lumbar spine M41.86 Lumbar degenerative disc disease M51.36 Lumbar spondylosis M47.816 Lumbar radiculopathy M54.16
[2023-07-06 08:43] VITALS: BP 133/63; PULSE 85; O2SAT 96; BMI 17.9
== END 2023-07-06 08:55 | disposition home or self-care (01) ==
PROVIDERS: PCP General Practice; Visit Provider Nurse Practitioner Family
DX: M70.70 Other bursitis of hip, unspecified hip (principal); M41.86 Other forms of scoliosis, lumbar region; M51.36 Other intervertebral disc degeneration, lumbar region; M47.816 Spondylosis without myelopathy or radiculopathy, lumbar region; M54.16 Radiculopathy, lumbar region
CPT/HCPCS: 99213

== ENCOUNTER → 2023-07-06 08:32 | Outpatient (BNVA) | payer OTHER, SELFPAY | PROVIDERS: PCP General Practice; Visit Provider Nurse Practitioner Family | DX: M47.26 Other spondylosis with radiculopathy, lumbar region (principal); M51.36 Other intervertebral disc degeneration, lumbar region; M41.86 Other forms of scoliosis, lumbar region; M70.70 Other bursitis of hip, unspecified hip | CPT/HCPCS: 99212 ==

== ENCOUNTER 2023-07-11 12:21 | Outpatient (AMB) | payer OTHER, SELFPAY ==
--- NOTE | 2023-07-11 12:23 | A.OFFVIS_ITS ---
Intake Vital Signs 07/11/23 12:34 Height 5 ft 2 in Weight 101 lb 6.602 oz BMI 18.5 BP 111/62 Blood Pressure Location Lt brachial Position Sitting Pulse 93 Intake Visit Reasons: 6 mnth follow up Intake Note: Altaf presents in the office as a 6 month follow up. CC:She states that she takes the linzess and it is working for her. She has concerns she was told that her cancer is back and monday she has to go for a certain test and talk about treatment. Cancer in her bladder. Activity Leader Required: Yes Activity Leader Name: Tiarra [id number] Allergies aspirin [ASA] Allergy (Intermediate, Verified 07/11/23 12:38) RASH ibuprofen [Ibuprofen] Allergy (Intermediate, Verified 07/11/23 12:38) RASH morphine [MORPHINE] Allergy (Intermediate, Verified 07/11/23 12:38) ITCHING naproxen [From NAPROSYN] Allergy (Intermediate, Verified 07/11/23 12:38) RASH,N/V oxycodone [OXYCODONE] Allergy (Intermediate, Verified 07/11/23 12:38) NAUSEA & VOMITING, RASH sulfamethoxazole [From Bactrim] Adverse Reaction (Severe, Verified 07/11/23 12:38) Abdominal Pain trimethoprim [From Bactrim] Adverse Reaction (Severe, Verified 07/11/23 12:38) Abdominal Pain HPI 6 mnth follow up HPI Details Assessment & Plan (1) Chronic idiopathic constipation: Code(s): K59.04 - Chronic idiopathic constipation Plan: [place] #Yaw, live The surgeon saw her for the hemorrhoids but declines surgery r/t her other medical problems. She just had surgery for her bladder cancer for tumor debulking this week. So, she has been through a lot! Obviously will try to continue to manage her hemorrhoids medically. In the past we have discussed multiple strategies including Sitz baths, utilizing ice packs and of course using prescription hemorrhoid creams. She has trouble swallowing and can't use a capsule so will change her omeprazole to pantoprazole 40mg qd. She is out of of LInzess 145mcg will reorder along with her hemorrhoid cream. When she has the Linzess she feels that it works well for her and she does not feel we need any dose adjustments. For now she has not awful lot of doctor's appointment and since her GI regimen is stable I will see her again in 6 months. She can always call she needs me sooner (2) Gastroesophageal reflux disease: Code(s): K21.9 - Gastro-esophageal reflux disease without esophagitis (3) Hemorrhoids with complication: Code(s): K64.8 - Other hemorrhoids Medications: New linaclotide (Linze ss) 145 mcg PO QAM 30 caps 6RF hydrocortisone 2.5 % (Proctosol HC) BE SURE TO INCLU DE RECTAL APPICATO R!! 1 appl IN BID 30 grams 6RF hemorrho ids K64.9 - Unspecifie d hemorrhoids pantoprazole (Prot shankar) 40 mg PO DAILY 30 days 30 tabs 1RF Discontinued polyethylene glyco l 3350 Disconti nued Reason: Doct or's Order 17 grams PO DAILY PRN 30 ea 0RF con stipation TODAY'S VISIT [place] #Isabel wolf The LInzess at 145mcg is controlling her CIC well, and trent proctosol cream has well effected my hemorrhoids. However, the pantoprazole did not control her HB well and she went back to omeprazole. She was just buying it OTC but I will RX this. She is having trouble with an injection for her asthma, the insurance changed it and she is having itching. After just 3 mos she was told that her bladder cancer had returned. She will be having radiotherapy for it. ROV 6 mos. PFSH Medical History Chronic pain syndrome Osteoarthritis GERD (gastroesophageal reflux disease) History of COVID-19 Emphysema lung Hyperlipidemia Hypertension Asthma Hemorrhoids with complication UTI (urinary tract infection) Malignant neoplasm of urinary bladder Bladder mass Surgical History History of surgery History of ERCP Hx laparoscopic cholecystectomy Hx of cystoscopy History of hysterectomy with bilateral oophorectomy Hx of colonoscopy (01/17/19) History of esophagogastroduodenoscopy (EGD) Family History Father No problems noted. Mother Diabetes Brother Lung cancer Daughter Diabetes Social History Household Members: Family Housing: Apartment Do you presently have visiting nurse or other home services: Yes Alcohol intake: never Patient Tobacco Use Status: Former Tobacco user Quit Date: 7 yrs ago Years Smoked: 55 Use of substances other than those prescribed or required for medical reasons: No Have you been hit, kicked, punched, or otherwise hurt by someone within the past year? If so, by whom?: No Do you feel safe in your current relationship?: Yes Do you have thoughts of harming others: None Do you have a plan to hurt others: No Plan Do you have the means to hurt others: No Recently lost weight without trying: Yes How much weight loss: 2-13 pounds Eating poorly because of decreased appetite: Yes Nutrition screen score: 4 service: No Current occupational status: retired Current occupation: rt handed Review of Systems Const Denies fatigue, Denies fever(s), Denies night sweats, Denies poor appetite and Denies weight loss Eyes Details: glasses Reports requires corrective lenses ENT Reports Normal hearing present, Denies dental pain, Denies dysphagia, Denies hearing loss, Denies mouth pain, Denies odynophagia, Denies throat swelling, Denies tongue swelling and Reports other (Dentition adequate) Card Reports no additional complaints Resp Reports no additional complaints GI Denies abdominal pain, Denies melena, Denies bloating, Denies hematochezia, Reports constipation, Denies GI cramping, Denies dysphagia, Denies excessive fla tus, Denies early satiety, Reports heartburn, Denies diarrhea, Denies nausea, Denies odynophagia, Denies vomiting and Denies hematemesis Skin/Breast Denies pruritus, Denies lesions, Denies rash and Denies jaundice Neuro Reports Normal hearing present and Denies Abnormal speech present Endo Denies fatigue Aller/Immun Denies throat swelling and Denies tongue swelling Physical Exam Vital Signs: Last Vital Signs Pulse 93 07/11/23 12:34 BP 111/62 07/11/23 12:34 BMI result Body Mass Index 18.5 Const General: cooperative, no acute distress, well developed and well groomed Nutritional Appearance: average body habitus and well nourished Orientation/consciousness: oriented to person, oriented to place and oriented to time Limitations: language barrier and ambulation with walker HEENT Head: Yes normocephalic and Yes atraumatic Eyes General: appearance normal, both eyes and all related structures Pupils: Equal, round and reactive pupils present Neck Neck: Yes normal visual inspection and Yes no lymphadenopathy Thyroid: Thyroid normal Resp Effort & Inspection: normal respiratory effort and able to speak in complete sentences Auscultation: clear to auscultation bilaterally Cardio Rate: regular rate Rhythm: regular rhythm Heart sounds: Normal, physiologic split S2 sound present Peripheral pulses: radial pulses present and posterior tibial pulses present GI Inspection: No distended and No Abdominal panniculus present Palpation (GI): Soft to palpation, nontender, no guarding and not rigid Percussion: Yes normal to percussion Auscultation: normal bowel sounds Rectal Exam - Female: deferred Skin General skin exam: no rashes or lesions noted, turgor normal, skin not dry, no jaundice, No spider nevi and no striae Rashes: no rashes Nails: normal Neuro General: oriented to person, oriented to place and oriented to time Cranial nerves: Yes Equal, round and reactive pupils present and Yes Normal hearing present Speech: No Abnormal speech present Extrem General: Yes normal to inspection, No clubbing, No cyanosis and No edema Psych Appearance: grossly normal and well kempt Mental Status: mental status grossly normal Speech and movement: Normal speech and movement present Affect: normal affect Attitude: cooperative Thought process: Normal thought process present and not confabulating Thought content: Normal thought content present Insight: Limited insight present (Psych) Judgement: Limited judgement present (Psych) Assessment & Plan Assessment & Plan (1) Gastroesophageal reflux disease: Code(s): K21.9 - Gastro-esophageal reflux disease without esophagitis Plan: [place] #Isabel live The LInzess at 145mcg is controlling her CIC well, and trent proctosol cream has well effected my hemorrhoids. However, the pantoprazole did not control her HB well and she went back to omeprazole. She was just buying it OTC but I will RX this. She is having trouble with an injection for her asthma, the insurance changed it and she is having itching. After just 3 mos she was told that her bladder cancer had returned. She will be having radiotherapy for it. ROV 6 mos. (2) Chronic idiopathic constipation: Code(s): K59.04 - Chronic idiopathic constipation Medications: New omeprazole 40 mg PO DAILY 30 caps 6RF 30 days Refilled linaclotide (Linzess) 145 mcg PO QAM 30 caps 6RF Discontinued pantoprazole Discontinued Reason: Doctor's Order 40 mg PO DAILY 30 days 30 tabs 1RF Coding Level of Care Code Est Pt Level 3 (36781) Diagnoses Gastroesophageal reflux disease K21.9 Chronic idiopathic constipation K59.04
[2023-07-11 12:34] VITALS: BP 111/62; PULSE 93; BMI 18.5
== END 2023-07-11 13:33 | disposition home or self-care (01) ==
PROVIDERS: Visit Provider Nurse Practitioner
DX: K21.9 Gastro-esophageal reflux disease without esophagitis (principal); K59.04 Chronic idiopathic constipation
CPT/HCPCS: 99213

== ENCOUNTER → 2023-07-11 12:21 | Outpatient (BNVA) | payer OTHER, SELFPAY | PROVIDERS: Visit Provider Nurse Practitioner | DX: K21.9 Gastro-esophageal reflux disease without esophagitis (principal); K59.04 Chronic idiopathic constipation; C67.9 Malignant neoplasm of bladder, unspecified; K64.8 Other hemorrhoids | CPT/HCPCS: 99212 ==

== ENCOUNTER 2023-08-08 09:59 | Outpatient (REF) | payer OTHER, SELFPAY ==
--- NOTE | ~2023-08-08 | PE_ITS ---
EXAMINATION: Fluorine-18 FDG PET/CT Scan CLINICAL INDICATION: Subsequent treatment management. Bladder cancer restaging. PROCEDURE: 65 minutes following the intravenous administration of 14.5 mCi of fluorine 18 FDG, images from the base of the skull to the mid thighs were obtained using a combined PET/CT scanner with CT scan based attenuation correction. No intravenous contrast was administered. Transverse, coronal, sagittal, and volume reconstruction projections were obtained. The patient's blood glucose as determined by a finger stick, was 100 mg/dl immediately prior to injection. The radiotracer was injected intravenously through the left antecubital superficial vein, without any complications. Total CT exam dose-length product 383.10 mGy-cm * These CT images were obtained using dose optimization techniques as appropriate, variously including the following: Automated exposure control * Adjustment of mA and/or kV according to patient size (this includes techniques or standardized protocols for targeted exams where dose is matched to indication/reason for exam; i.e. extremities or head) * Use of iterative reconstruction technique COMPARISON: CT scan of the abdomen and pelvis done on 06/02/2023 FINDINGS: SUV max REFERENCE: Blood: 2.4 (104/267). Liver: 3.2 (139/267). HEAD AND NECK: No abnormal radiotracer uptake. No large intracranial hemorrhage, acute territorial infarct or significant shift of midline structures. CHEST: Ports and Devices: None Lungs: Emphysematous disease and superimposed linear pleuroparenchymal opacities are noted at lingular segment of the left upper lobe. In addition, there is a sub-5 mm nodule seen at left lung apex with SUV max of 0.9 (71/267). Pleura: No significant pleural effusion. Lymph Nodes: No tracer-avid mediastinal, hilar or internal mammary or axillary lymphadenopathy. Mediastinum: There is no significant pericardial effusion/thickening. Breasts/Chest Wall: No abnormal radiotracer uptake. ABDOMEN/PELVIS: Liver/Biliary System: No focal tracer-avid liver lesion. The gallbladder is surgically absent. Pneumobilia is noted, unchanged. Pancreas: Normal.No evidence of pancreatic ductal dilatation. Spleen: No abnormal radiotracer uptake. No evidence of splenomegaly. Adrenal Glands: No abnormal radiotracer uptake. Kidneys: No hydronephrosis, hydroureter or renal calculi bilaterally. Bowel: There is no significant bowel dilatation to suggest obstruction. Colonic diverticulosis without any CT features of superimposed acute diverticulitis. Lymph Nodes: Sub-5 mm tracer avid focus is present at the level of the aortic bifurcation to the left of the midline with SUV max of 4.3 (177/267), not reproduced on the nonattenuated corrected images, may represent artifacts secondary to adjacent dense calcification or a small lymph node. Attention to follow-up is recommended. Pelvic Organs: The urinary bladder is underdistended. Note is made of presence of asymmetric irregular polypoidal thickening involving the right lateral wall of the bladder and diffuse circumferential thickening of the entire bladder. Direct visualization/cystoscopy may be considered for further clarification. Evaluation of the bladder is technically limited due to intense physiologic tracer avid urine. MUSCULOSKELETAL: Marked diffuse osteopenia is noted involving all the visualized bones. No suspicious focal osseous disease. Arthritic changes are noted at both shoulder. VASCULAR: Calcific atherosclerotic disease of the aorta and its branches including carotid and coronary artery calcifications. THE SITE(S) OF MOST INTENSE FDG AVIDITY AND SUV MAX: Small focal tracer avidity at the level of the aortic bifurcation within the retroperitoneum with SUV max of 4.3. PET/PET CT fusion skull to thigh IMPRESSION: 1. Small focal tracer avidity is noted at the level of the aortic bifurcation within the retroperitoneum with SUV max of 4.3 and chest and 2 vascular calcifications, not reproduced on the nonattenuated corrected images, may represent attenuation artifact versus small lymph node. Attention to follow-up is recommended. 2. Suboptimally distended urinary bladder associated with asymmetric bladder wall thickening, for which direct visualization/cystoscopy is recommended for further clarification, if clinically appropriate. 3. Sub-5 mm minimal tracer avid lung nodule at left lung apex with SUV max of 0.9 (below that of the mediastinal blood pool. Attention to follow-up is recommended. 4. Otherwise unremarkable study. Please note that there are no prior baseline PET CT study available for comparison.
== END 2023-08-08 10:00 | disposition home or self-care (01) ==
LOC: HO.PET 09:59
PROVIDERS: PCP General Practice; Visit Provider Internal Medicine
DX: Z13.89 Encounter for screening for other disorder (principal)

== ENCOUNTER 2023-08-08 15:28 | Outpatient (AMB) | payer OTHER, SELFPAY ==
--- NOTE | 2023-08-08 15:28 | A.OFFVIS_ITS ---
Intake Intake Visit Reasons: Bladder Biopsy results Intake Note: patient is present for telephone biopsy results Allergies aspirin [ASA] Allergy (Intermediate, Verified 09/15/23 10:35) RASH ibuprofen [Ibuprofen] Allergy (Intermediate, Verified 09/15/23 10:35) RASH morphine [MORPHINE] Allergy (Intermediate, Verified 09/15/23 10:35) ITCHING naproxen [From NAPROSYN] Allergy (Intermediate, Verified 09/15/23 10:35) RASH,N/V oxycodone [OXYCODONE] Allergy (Intermediate, Verified 09/15/23 10:35) NAUSEA & VOMITING, RASH sulfamethoxazole [From Bactrim] Adverse Reaction (Severe, Verified 09/15/23 10:35) Abdominal Pain trimethoprim [From Bactrim] Adverse Reaction (Severe, Verified 09/15/23 10:35) Abdominal Pain HPI HPI Comments History of Present Illness Details Altaf is a pleasant female. She is a patient of . She seen for the following urologic conditions - [facility] Evaluation 15 min Consultation riskmethods [place]alo Video attempted Ukrainian translation provided by qualified medical or surgical instrument maker Had removal of right PCN in 05/03 Needs cysto, bladder biopsy, bilateral retrogrades Labs Cr 06/[address] right hydro, left mild hydro Completed neoadjuvant chemotherapy Right PCN placed after presentation for NADEEN - creatinine resolving from 2.9 down to 0.94 - 03/[address] scan with resol ution of bladder thickening, right hydronephrosis. 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 The bladder is partially distended with irregular wall thickening and trabeculated appearance. Dilated appearance of both distal ureters. Moderate right hydronephrosis. Mild left hydronephrosis. No lymphadenopathy. Bladder cancer superficial high-grade 2018 - disease progression - 12/01 muscle invasive bladder cancer Initial diagnosis with Dr. Hankins TURBT 05/30 high-grade superficial noninvasive disease Adjuvant therapy BCG June 2019 Surveillance cystoscopy - 04/30 NAD, 10/01 NAD, 10/02 NAD - trabecu lated bladder with BCG change [facility] Medical History Chronic pain syndrome Osteoarthritis GERD (gastroesophageal reflux disease) History of COVID-19 Emphysema lung Hyperlipidemia Hypertension Asthma Hemorrhoids with complication UTI (urinary tract infection) Malignant neoplasm of urinary bladder Bladder mass Surgical History History of surgery History of ERCP Hx laparoscopic cholecystectomy Hx of cystoscopy History of hysterectomy with bilateral oophorectomy Hx of colonoscopy (01/17/19) History of esophagogastroduodenoscopy (EGD) Family History Father No problems noted. Mother Diabetes Brother Lung cancer Daughter Diabetes Social History Household Members: Family Housing: Apartment Do you presently have visiting nurse or other home services: Yes Alcohol intake: never Patient Tobacco Use Status: Former Tobacco user Quit Date: 7 yrs ago Years Smoked: 56 service: No Current occupational status: retired Current occupation: rt handed Review of Systems Const All systems reviewed & are unremarkable except as noted in HPI and below Reports no additional complaints Resp Reports no additional complaints GI Reports no additional complaints Reports as per HPI Musc Reports no additional complaints Physical Exam Telemedicine evaluation Appropriate responses Regular breathing rate and rhythm HEENT Head: Yes normal to inspection Ears: hearing grossly normal bilaterally Eyes General: appearance normal, both eyes and all related structures Neck Neck: Yes normal visual inspection Chest Chest palpation & inspection: normal inspection of the chest Resp Effort & Inspection: normal respiratory effort and able to speak in complete sentences Assessment & Plan Assessment & Plan (1) 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 These include but are not limited to infection, bleeding, damage to local organs and tissues, need for further interventions. Anesthetic risks regarding cardiac arrhythmia, blood clots, and potential mortality were discussed. The patient understands the typical recovery time and the outpatient nature of is encouraged with any medications and followup testing that is ordered. It is a privilege to participate in the urologic care of your patient. If you have any questions or concerns regarding treatment for the above conditions, or other urologic issues, please do not hesitate to contact me. The office telephone contact is [phone]. This note is constructed using voice recognition software. While every effort the procedure. After consideration of these risks the patient gives full informed consent and they wish to move ahead with the procedure. Cystoscopy, bladder biopsy, bilateral retrograde Patient Instructions: Imaging studies, laboratory and physical exam results were discussed and reviewed in detail. No major barriers to patient understanding were identified. An opportunity to ask questions regarding the treatment plan was provided. All questions were answered. The patient expressed understanding and agreement with the above treatment plan. The patient is aware they should contact our office by phone for worsening of their current condition or the appearance of new urologic symptoms. Compliance has been made to ensure accuracy middle school combination teacher errors may have been included. 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
== END 2023-08-08 16:38 | disposition home or self-care (01) ==
LOC: HO.HUSH 15:28
PROVIDERS: PCP General Practice; Visit Provider Urology
DX: N13.30 Unspecified hydronephrosis (principal); C67.9 Malignant neoplasm of bladder, unspecified; C67.8 Malignant neoplasm of overlapping sites of bladder
CPT/HCPCS: 99214

== ENCOUNTER 2023-08-12 09:58 | Outpatient (REF) | payer OTHER, SELFPAY ==
--- NOTE | ~2023-08-12 | MR_ITS ---
MR LUMBAR SPINE WITHOUT CONTRAST CLINICAL INFORMATION: Lumbar region scoliosis. COMPARISON: Lumbar spine MRI 12/11/2018. TECHNIQUE: MRI of the lumbar spine was obtained using routine sequences without contrast. FINDINGS: 5 nonrib-bearing lumbar-type vertebral bodies are considered for this report with the last completely developed intervertebral disc considered L5-S1. Severe leftward convex scoliotic curvature of the lumbar spine with the apex at L1-L2. There is chronic vertebral body height loss at the L1, L2, L3, L4, and L5 levels. There is no bone marrow edema to suggest an acute fracture. There is disc desiccation at all lumbar levels. Severe right-sided disc volume loss at T12-L1, L1-L2, and L2-L3. Mild left-sided disc volume loss at L3-L4. Conus terminates at the L1 level. Chronic T2 signal changes within the distal cord/at the conus are unchanged, presumably chronic myelomalacia. Paraspinal muscular atrophy bilaterally. At T11-T12, a central disc protrusion along with advanced facet arthropathy and ligamentum flavum thickening result in worsening severe central canal stenosis and mass effect on the lower thoracic cord. Disc and facet arthropathy result in severe left foraminal stenosis with similar compression of the exiting left nerve root. L1-L2: Annular disc bulge and bilateral facet arthropathy result in asymmetric right subarticular zone stenosis that is stable mass effect on traversing nerve roots within the right subarticular zone. No central canal stenosis. Disc osteophyte and facet arthropathy result in moderate to severe right foraminal stenosis with mass effect on the exiting right nerve root that is unchanged. L2-L3: Diffuse disc osteophyte complex with a superimposed far right lateral disc osteophyte protrusion and moderate bilateral facet arthropathy and ligamentum flavum thickening. Findings in concert result in mild central canal stenosis, right subarticular zone stenosis with mass effect on the traversing right nerve root, and moderate right-sided foraminal stenosis with the right lateral disc osteophyte protrusion resulting in mass effect on the extraforaminal right L2 nerve root. L3-L4: There is a new superiorly migrating right paracentral disc extrusion that contributes towards worsening compression of the traversing right L4 nerve root within the right subarticular zone. There is also a progressive left paracentral disc protrusion resulting in worsening compression of the traversing left L4 nerve root within the left subarticular zone. Advanced facet arthropathy and ligamentum flavum thickening. Progressive moderate to severe central canal stenosis and progressive moderate to severe bilateral foraminal stenosis with mass effect on the exiting L3 nerve roots bilaterally L4-L5: Slight grade 1 anterolisthesis. Diffuse annular disc bulge is in part disc osteophyte with a superimposed left lateral disc osteophyte protrusion. Advanced left and moderate right facet arthropathy. Findings in concert result in mild central canal stenosis, similar severe bilateral subarticular zone stenosis with compression of the traversing L5 nerve roots bilaterally, and moderate bilateral foraminal stenosis. L5-S1: A broad-based central disc protrusion is progressed, resulting in increased mass effect on the traversing left greater then right S1 nerve roots within the subarticular zones in worsening mild central canal stenosis. Disc and facet arthropathy result in similar severe left and worsening moderate to severe right foraminal stenosis with compression of the exiting left greater then right L5 nerve roots. MR/MR lumbar spine wo con IMPRESSION: - Severe leftward convex scoliotic curvature of the lumbar spine superimposed on advanced multilevel degenerative disc disease and hypertrophic facet arthropathy: - At T11-T12, a central disc protrusion along with advanced facet arthropathy and ligamentum flavum thickening result in worsening severe central canal stenosis and mass effect on the lower thoracic cord. Disc and facet arthropathy result in severe left foraminal stenosis with similar compression of the exiting left nerve root. Chronic T2 signal changes within the distal cord/at the conus are unchanged, presumably chronic myelomalacia. - At L1-L2, multifactorial degenerative changes result in stable mass effect on traversing nerve roots within the right subarticular zone and moderate to severe right foraminal stenosis with mass effect on the exiting right nerve root that is unchanged. - At L2-L3, multifactorial degenerative changes result in similar right subarticular zone stenosis with mass effect on the traversing right nerve root, and moderate right-sided foraminal stenosis with the right lateral disc osteophyte protrusion resulting in mass effect on the extraforaminal right L2 nerve root. - At L3-L4, progressive spondylitic changes including a new superiorly migrating right paracentral disc extrusion and a progressive left paracentral disc protrusion resulting in worsening compression of the traversing L4 nerve roots within the subarticular zones bilaterally as well as worsening moderate to severe canal stenosis and progressive moderate to severe bilateral foraminal stenosis with mass effect on the exiting L3 nerve roots bilaterally - At L4-L5, slight grade 1 anterolisthesis and advanced multifactorial degenerative changes result in mild central canal stenosis, similar severe bilateral subarticular zone stenosis with compression of the traversing L5 nerve roots bilaterally, and moderate bilateral foraminal stenosis. - At L5-S1, there is a progressive broad-based central disc protrusion resulting in increased mass effect on the traversing left greater then right S1 nerve roots within the subarticular zones in worsening mild central canal stenosis. Disc and facet arthropathy result in similar severe left and worsening moderate to severe right foraminal stenosis with compression of the exiting left greater then right L5 nerve roots. - Dilatation of the partially imaged right renal collecting system and proximal right ureter with associated urothelial thickening which is improved when compared to 06/02/[address]
== END 2023-08-12 09:59 | disposition home or self-care (01) ==
LOC: HO.MRI 09:58
PROVIDERS: Visit Provider Nurse Practitioner Family
DX: M41.86 Other forms of scoliosis, lumbar region (principal); M51.36 Other intervertebral disc degeneration, lumbar region; M54.16 Radiculopathy, lumbar region
CPT/HCPCS: 72148

== ENCOUNTER 2023-08-18 09:41 | Outpatient (AMB) | payer OTHER, SELFPAY ==
--- NOTE | 2023-08-18 10:09 | MHC.OFFVIS ---
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 Accompanied by: Self / Same As Patient Allergies aspirin [ASA] Allergy (Intermediate, Verified 08/18/23 10:09) RASH ibuprofen [Ibuprofen] Allergy (Intermediate, Verified 08/18/23 10:09) RASH morphine [MORPHINE] Allergy (Intermediate, Verified 08/18/23 10:09) ITCHING naproxen [From NAPROSYN] Allergy (Intermediate, Verified 08/18/23 10:09) RASH,N/V oxycodone [OXYCODONE] Allergy (Intermediate, Verified 08/18/23 10:09) NAUSEA & VOMITING, RASH sulfamethoxazole [From Bactrim] Adverse Reaction (Severe, Verified 08/18/23 10:09) Abdominal Pain trimethoprim [From Bactrim] Adverse Reaction (Severe, Verified 08/18/23 10:09) Abdominal Pain HPI HPI Comments History of Present Illness Details Patient presents today for follow-up to review recent lumbar spine MRI results. Denies any recent cough, cold, infection, fever, bladder or bowel dysfunction, saddle anesthesia, or other significant changes in medical history since last office visit. Past procedures: 06/21/23: Bilateral Ischial Bursal Injection- 0% pain relief PRIOR: Patient is a pleasant 77 years old female with prior history lumbar degenerative disc disease, arthritis, levoscoliosis, peripheral neuropathy bladder cancer status post chemotherapy, cystoscopy, percutaneous right nephrostomy tube placement and removal, presents today for initial evaluation of low back pain is radiation into her lower buttocks and posterior lower extremities with weakness, numbness and tingling and had burning and stabbing pain in both feet. Patient also presents with localized tenderness in the projection of bilateral ischial tuberosity. Pain increases with prolonged walking or sitting. Patient is constantly repositioning herself and flexes forward to relieve her lower back pain during today's visit. Patient reports peripheral neuropathy pain in both of her feet. Pain has been constant and is rated 10/10 all the time. Pain affects her general activities, walking, and sleep. Patient reports she has tried manage her pain with tramadol and gabapentin but cannot tolerate it well due to nausea. Denies previous spine surgery or injections. Most recent imaging noted for degenerative spondylosis throughout lumbar spine with moderate levoscoliosis of dorsal lumbar junction. Patient denies any fever, chills, shortness of breath, weight changes, bowel dysfunction or saddle anesthesia. Location Bilateral lower buttocks pain radiates down bilteral lower legs Duration Chronic pain for 4 years Characteristics of symptom or complaint Cramping, squeezing, tingling, stabbing, burning, tingling, numbness Aggravating or associated factors Movements, walking, sitting for long periods of time Relieving factors Tramadol, gapabentin, rest, changing positions, heat therapy Treatment Physical therapy-minimal improvement in function but no pain relief PFSH Medical History Chronic pain syndrome Osteoarthritis GERD (gastroesophageal reflux disease) History of COVID-19 Emphysema lung Hyperlipidemia Hypertension Asthma Hemorrhoids with complication UTI (urinary tract infection) Malignant neoplasm of urinary bladder Bladder mass Surgical History History of surgery History of ERCP Hx laparoscopic cholecystectomy Hx of cystoscopy History of hysterectomy with bilateral oophorectomy Hx of colonoscopy (01/17/19) History of esophagogastroduodenoscopy (EGD) Family History Father No problems noted. Mother Diabetes Brother Lung cancer Daughter Diabetes Social History Household Members: Family Housing: Apartment Do you presently have visiting nurse or other home services: Yes Alcohol intake: never Patient Tobacco Use Status: Former Tobacco user Quit Date: 7 yrs ago Years Smoked: 56 service: No Current occupational status: retired Current occupation: rt handed Review of Systems Const All systems reviewed & are unremarkable except as noted in HPI and below Physical Exam Vital Signs: Last Vital Signs Pulse 91 08/18/23 10:15 BP 123/55 L 08/18/23 10:15 Pulse Ox 97 08/18/23 10:15 Oxygen Delivery Method Room Air 08/18/23 10:15 BMI result Body Mass Index 19.4 General: Appears afebrile. Alert and oriented. Mood and affect appropriate. Anxious. Follows and participates in conversation appropriately. Respiratory effort is unlabored. No cough. Able to transition from sit to stand unassisted. Ambulates with slow, antalgic gait with use of walker with seat. Back/Spine/Pelvis Other: Limited lumbar ROM. Painful facet loading bilaterally. Seated straight leg rise with dorsiflexion positive bilaterally, right>left. Diminished patellar and achilles reflexes bilaterally, R<L. Mike sign, Bryan?s are positive bilaterally and the reproduces lateral hip pain bilaterally and minimal low back pain. No groin pain with I/E hip rotations. Valsalva maneuver negative. Cervical Spine: cervical ROM normal and No Cervical spine tenderness Thoracic/Lumbar Spine: thoracic and lumbar spine normal to inspection, No Thoracic/lumbar spine scar(s), Lasegue's sign positive (localized on right in L5-S1, diffuse on left), pain with thoraco-lumbar ROM, paraspinal muscle tenderness, thoraco-lumbar ROM limited, Thoracic/lumbar scoliosis, thoracic spinal tenderness at T11 and at T12 and lumbar spinal tenderness at L4 and at L5 Pelvis: buttock tenderness bilaterally and sciatic notch tenderness on the right Sacroiliac joints: bilaterally tender to palpation Results Reviewed Results Reviewed: MR LUMBAR SPINE WITHOUT CONTRAST 08/12/23 CLINICAL INFORMATION: Lumbar region scoliosis. COMPARISON: Lumbar spine MRI 12/11/2018. TECHNIQUE: MRI of the lumbar spine was obtained using routine sequences without contrast. FINDINGS: 5 nonrib-bearing lumbar-type vertebral bodies are considered for this report with the last completely developed intervertebral disc considered L5-S1. Severe leftward convex scoliotic curvature of the lumbar spine with the apex at L1-L2. There is chronic vertebral body height loss at the L1, L2, L3, L4, and L5 levels. There is no bone marrow edema to suggest an acute fracture. There is disc desiccation at all lumbar levels. Severe right-sided disc volume loss at T12-L1, L1-L2, and L2-L3. Mild left-sided disc volume loss at L3-L4. Conus terminates at the L1 level. Chronic T2 signal changes within the distal cord/at the conus are unchanged, presumably chronic myelomalacia. Paraspinal muscular atrophy bilaterally. At T11-T12, a central disc protrusion along with advanced facet arthropathy and ligamentum flavum thickening result in worsening severe central canal stenosis and mass effect on the lower thoracic cord. Disc and facet arthropathy result in severe left foraminal stenosis with similar compression of the exiting left nerve root. L1-L2: Annular disc bulge and bilateral facet arthropathy result in asymmetric right subarticular zone stenosis that is stable mass effect on traversing nerve roots within the right subarticular zone. No central canal stenosis. Disc osteophyte and facet arthropathy result in moderate to severe right foraminal stenosis with mass effect on the exiting right nerve root that is unchanged. L2-L3: Diffuse disc osteophyte complex with a superimposed far right lateral disc osteophyte protrusion and moderate bilateral facet arthropathy and ligamentum flavum thickening. Findings in concert result in mild central canal stenosis, right subarticular zone stenosis with mass effect on the traversing right nerve root, and moderate right-sided foraminal stenosis with the right lateral disc osteophyte protrusion resulting in mass effect on the extraforaminal right L2 nerve root. L3-L4: There is a new superiorly migrating right paracentral disc extrusion that contributes towards worsening compression of the traversing right L4 nerve root within the right subarticular zone. There is also a progressive left paracentral disc protrusion resulting in worsening compression of the traversing left L4 nerve root within the left subarticular zone. Advanced facet arthropathy and ligamentum flavum thickening. Progressive moderate to severe central canal stenosis and progressive moderate to severe bilateral foraminal stenosis with mass effect on the exiting L3 nerve roots bilaterally L4-L5: Slight grade 1 anterolisthesis. Diffuse annular disc bulge is in part disc osteophyte with a superimposed left lateral disc osteophyte protrusion. Advanced left and moderate right facet arthropathy. Findings in concert result in mild central canal stenosis, similar severe bilateral subarticular zone stenosis with compression of the traversing L5 nerve roots bilaterally, and moderate bilateral foraminal stenosis. L5-S1: A broad-based central disc protrusion is progressed, resulting in increased mass effect on the traversing left greater then right S1 nerve roots within the subarticular zones in worsening mild central canal stenosis. Disc and facet arthropathy result in similar severe left and worsening moderate to severe right foraminal stenosis with compression of the exiting left greater then right L5 nerve roots. IMPRESSION: - Severe leftward convex scoliotic curvature of the lumbar spine superimposed on advanced multilevel degenerative disc disease and hypertrophic facet arthropathy: - At T11-T12, a central disc protrusion along with advanced facet arthropathy and ligamentum flavum thickening result in worsening severe central canal stenosis and mass effect on the lower thoracic cord. Disc and facet arthropathy result in severe left foraminal stenosis with similar compression of the exiting left nerve root. Chronic T2 signal changes within the distal cord/at the conus are unchanged, presumably chronic myelomalacia. - At L1-L2, multifactorial degenerative changes result in stable mass effect on traversing nerve roots within the right subarticular zone and moderate to severe right foraminal stenosis with mass effect on the exiting right nerve root that is unchanged. - At L2-L3, multifactorial degenerative changes result in similar right subarticular zone stenosis with mass effect on the traversing right nerve root, and moderate right-sided foraminal stenosis with the right lateral disc osteophyte protrusion resulting in mass effect on the extraforaminal right L2 nerve root. - At L3-L4, progressive spondylitic changes including a new superiorly migrating right paracentral disc extrusion and a progressive left paracentral disc protrusion resulting in worsening compression of the traversing L4 nerve roots within the subarticular zones bilaterally as well as worsening moderate to severe canal stenosis and progressive moderate to severe bilateral foraminal stenosis with mass effect on the exiting L3 nerve roots bilaterally - At L4-L5, slight grade 1 anterolisthesis and advanced multifactorial degenerative changes result in mild central canal stenosis, similar severe bilateral subarticular zone stenosis with compression of the traversing L5 nerve roots bilaterally, and moderate bilateral foraminal stenosis. - At L5-S1, there is a progressive broad-based central disc protrusion resulting in increased mass effect on the traversing left greater then right S1 nerve roots within the subarticular zones in worsening mild central canal stenosis. Disc and facet arthropathy result in similar severe left and worsening moderate to severe right foraminal stenosis with compression of the exiting left greater then right L5 nerve roots. - Dilatation of the partially imaged right renal collecting system and proximal right ureter with associated urothelial thickening which is improved when compared to 06/02/[address] Assessment & Plan Assessment & Plan (1) Levoscoliosis of lumbar spine: Code(s): M41.86 - Other forms of scoliosis, lumbar region (2) Lumbar degenerative disc disease: Code(s): M51.36 - Other intervertebral disc degeneration, lumbar region (3) Lumbar spondylosis: Code(s): M47.816 - Spondylosis without myelopathy or radiculopathy, lumbar region (4) Lumbar radiculopathy: Code(s): M54.16 - Radiculopathy, lumbar region (5) Chronic pain syndrome: Code(s): G89.4 - Chronic pain syndrome (6) Peripheral neuropathy: Code(s): G62.9 - Polyneuropathy, unspecified Plan Lumbar spine MRI was reviewed with patient today and noted for severe leftward convex scoliotic curvature of the lumbar spine superimposed on advanced multilevel degenerative disc disease and hypertrophic facet arthropathy which is significant source of her pain, worse than neuropathic pain. She is no longer interested in injections as these are temporary solutions and she is interested in a more longer term pain management. We discussed neuromodulation with SCS vs ITDD trial and implants. She is aware of behavioral assessment as initial steps for these interventions. Informational pamphlets were provided to patient in [place] and [place]. Patient will notify our office for placement of behavioral assessment referral. All questions and concerns have been answered and patient agreed with the plan. Follow-up as needed. Coding Level of Care Code Est Pt Level 4 (45455) Diagnoses Levoscoliosis of lumbar spine M41.86 Lumbar degenerative disc disease M51.36 Lumbar spondylosis M47.816 Lumbar radiculopathy M54.16 Chronic pain syndrome G89.4 Peripheral neuropathy G62.9
[2023-08-18 10:15] VITALS: BP 123/55; PULSE 91; O2SAT 97; BMI 19.4
== END 2023-08-18 10:38 | disposition home or self-care (01) ==
PROVIDERS: PCP General Practice; Visit Provider Nurse Practitioner Family
DX: M41.86 Other forms of scoliosis, lumbar region (principal); M51.36 Other intervertebral disc degeneration, lumbar region; M47.816 Spondylosis without myelopathy or radiculopathy, lumbar region; M54.16 Radiculopathy, lumbar region; G89.4 Chronic pain syndrome; G62.9 Polyneuropathy, unspecified
CPT/HCPCS: 99214

== ENCOUNTER → 2023-08-18 09:41 | Outpatient (BNVA) | payer OTHER, SELFPAY | PROVIDERS: PCP General Practice; Visit Provider Nurse Practitioner Family | DX: M41.86 Other forms of scoliosis, lumbar region (principal); M51.36 Other intervertebral disc degeneration, lumbar region; M47.816 Spondylosis without myelopathy or radiculopathy, lumbar region; M54.16 Radiculopathy, lumbar region; G89.4 Chronic pain syndrome; G62.9 Polyneuropathy, unspecified | CPT/HCPCS: 99212 ==

== ENCOUNTER 2023-09-15 09:43 | Outpatient (AMB) | payer OTHER, SELFPAY ==
--- NOTE | 2023-09-15 09:45 | MHC.OFFVIS ---
Intake Vital Signs 09/15/23 09:48 09/15/23 10:21 09/15/23 10:33 Height 5 ft 2 in Weight 106 lb BMI 19.4 BP 135/80 121/68 125/65 Blood Pressure Location Rt brachial Rt brachial Rt brachial Position Sitting Sitting Sitting Pulse 98 85 89 Pulse Source Pulse Oximeter Pulse Oximeter Pulse Oximeter Pulse Oximetry (%) 97 99 98 Oxygen Delivery Method Room Air Room Air Room Air Comment 15 mins after qutenza application 30 mins after qutenza application Intake Visit Reasons: QUTENZA/DN Intake Note: Pain today 06/20 [employer] Manager Required: No Accompanied by: Self / Same As Patient Allergies aspirin [ASA] Allergy (Intermediate, Verified 09/15/23 10:35) RASH ibuprofen [Ibuprofen] Allergy (Intermediate, Verified 09/15/23 10:35) RASH morphine [MORPHINE] Allergy (Intermediate, Verified 09/15/23 10:35) ITCHING naproxen [From NAPROSYN] Allergy (Intermediate, Verified 09/15/23 10:35) RASH,N/V oxycodone [OXYCODONE] Allergy (Intermediate, Verified 09/15/23 10:35) NAUSEA & VOMITING, RASH sulfamethoxazole [From Bactrim] Adverse Reaction (Severe, Verified 09/15/23 10:35) Abdominal Pain trimethoprim [From Bactrim] Adverse Reaction (Severe, Verified 09/15/23 10:35) Abdominal Pain HPI HPI Comments History of Present Illness Details Patient presents for 2nd application of capsaicin 8% topical patch for peripheral neuropathy in bilateral feet. Denies any recent cough, cold, infection, fever or other significant changes in medical history since last office visit. Patient continues to endorse significant low back pain with radiation into her bilateral lower extremities. Recent lumbar spine MRI showed severe leftward convex scoliotic curvature of the lumbar spine superimposed on advanced multilevel degenerative disc disease and hypertrophic facet arthropathy which is significant source of her pain. Patient is no longer interested in injections as these are temporary solutions. We reviewed neuromodulation with SCS vs ITDD trial and implants for a longer term pain management. Patient is interested in Neurosurgical evaluation prior to any further treatments and is scheduled to see our colleagues at [facility] on 09/22/23. Past procedures: 06/21/23: Bilateral Ischial Bursal Injection- 0% pain relief PRIOR: Patient is a pleasant 77 years old female with prior history lumbar degenerative disc disease, arthritis, levoscoliosis, peripheral neuropathy bladder cancer status post chemotherapy, cystoscopy, percutaneous right nephrostomy tube placement and removal, presents today for initial evaluation of low back pain is radiation into her lower buttocks and posterior lower extremities with weakness, numbness and tingling and had burning and stabbing pain in both feet. Patient also presents with localized tenderness in the projection of bilateral ischial tuberosity. Pain increases with prolonged walking or sitting. Patient is constantly repositioning herself and flexes forward to relieve her lower back pain during today's visit. Patient reports peripheral neuropathy pain in both of her feet. Pain has been constant and is rated 10/10 all the time. Pain affects her general activities, walking, and sleep. Patient reports she has tried manage her pain with tramadol and gabapentin but cannot tolerate it well due to nausea. Denies previous spine surgery or injections. Most recent imaging noted for degenerative spondylosis throughout lumbar spine with moderate levoscoliosis of dorsal lumbar junction. Patient denies any fever, chills, shortness of breath, weight changes, bowel dysfunction or saddle anesthesia. Location Bilateral lower buttocks pain radiates down bilteral lower legs Duration Chronic pain for 4 years Characteristics of symptom or complaint Cramping, squeezing, tingling, stabbing, burning, tingling, numbness Aggravating or associated factors Movements, walking, sitting for long periods of time Relieving factors Tramadol, gapabentin, rest, changing positions, heat therapy Treatment Physical therapy-minimal improvement in function but no pain relief PFSH Medical History Chronic pain syndrome Osteoarthritis GERD (gastroesophageal reflux disease) History of COVID-19 Emphysema lung Hyperlipidemia Hypertension Asthma Hemorrhoids with complication UTI (urinary tract infection) Malignant neoplasm of urinary bladder Bladder mass Surgical History History of surgery History of ERCP Hx laparoscopic cholecystectomy Hx of cystoscopy History of hysterectomy with bilateral oophorectomy Hx of colonoscopy (01/17/19) History of esophagogastroduodenoscopy (EGD) Family History Father No problems noted. Mother Diabetes Brother Lung cancer Daughter Diabetes Social History Household Members: Family Housing: Apartment Do you presently have visiting nurse or other home services: Yes Alcohol intake: never Patient Tobacco Use Status: Former Tobacco user Quit Date: 7 yrs ago Years Smoked: 56 service: No Current occupational status: retired Current occupation: rt handed Review of Systems Const All systems reviewed & are unremarkable except as noted in HPI and below Physical Exam Vital Signs: Last Vital Signs Pulse 85 09/15/23 10:21 BP 121/68 09/15/23 10:21 Pulse Ox 99 09/15/23 10:21 Oxygen Delivery Method Room Air 09/15/23 10:21 BMI result Body Mass Index 19.4 General: Appears afebrile. Alert and oriented. Mood and affect appropriate. Anxious. Follows and participates in conversation appropriately. Respiratory effort is unlabored. No cough. Able to transition from sit to stand unassisted. Ambulates with slow, antalgic gait with use of walker with seat. Seated straight leg rise with dorsiflexion positive bilaterally, right>left. Back/Spine/Pelvis Cervical Spine: cervical ROM normal and No Cervical spine tenderness Thoracic/Lumbar Spine: thoracic and lumbar spine normal to inspection, No Thoracic/lumbar spine scar(s), Lasegue's sign positive (localized on right in L5-S1, diffuse on left), pain with thoraco-lumbar ROM, paraspinal muscle tenderness, thoraco-lumbar ROM limited, Thoracic/lumbar scoliosis, thoracic spinal tenderness (lower thoracic) and lumbar spinal tenderness at L4 and at L5 Pelvis: buttock tenderness bilaterally and sciatic notch tenderness on the right Sacroiliac joints: bilaterally tender to palpation Skin General skin exam: no rashes or lesions noted Extrem Other: There is decreased sensation over the soles of the feet and the toes. No breaks in the skin. No soft tissue swelling, no redness or warmth. Full ROM. Normal capillary refill. No clubbing, cyanosis or edema. No calf tenderness. Pulses +2 throughout bilaterally. Office Procedures Topical Capsaicin Date 1:: 07/17/23 Date 2:: 09/15/23 Main area of pain on the body: Bilateral feet and toes Laterality: Bilateral Location of left foot pain: Anterior, Posterior, Plantar, Proximal, Dorsal and Distal Location of right foot pain: Anterior, Posterior, Plantar, Proximal, Dorsal and Distal Quality of pain: Aching, Nagging, Burning, Gnawing, Numb-like and Tiring Details:: Two patches, 560 cm2 were utilized per each foot. EMLA Cream (lidocaine 2.5% and prilocaine 2.5%) was applied at home by patient prior to application of the patches. The patient tolerated the procedure well. Patient?s vitals signs remained stable throughout the procedure. Patient was able to complete the stipulated 30 minutes of the therapeutic application without any discomfort. 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 Supervisor 4 ea topical [facility] 4 ea [id number] 03/11/26 25205-877-23 Alere Assessment & Plan Assessment & Plan (1) Peripheral neuropathy: Code(s): G62.9 - Polyneuropathy, unspecified (2) Levoscoliosis of lumbar spine: Code(s): M41.86 - Other forms of scoliosis, lumbar region (3) Lumbar degenerative disc disease: Code(s): M51.36 - Other intervertebral disc degeneration, lumbar region (4) Lumbar radiculopathy: Code(s): M54.16 - Radiculopathy, lumbar region (5) Chronic pain syndrome: Code(s): G89.4 - Chronic pain syndrome Plan Patient is status post 2nd round of application of topical capsaicin 8% for peripheral neuropathy in bilateral feet. Patient tolerated the procedure without significant discomfort with application of EMLA cream prior to the procedure. She reports mild warming sensation in the heel areas bilaterally but no similar sensation in her mid foot or toes. Patient was discharged home in stable condition with discharge instructions. Next Qutenza scheduled in 3 months. We reviewed neuromodulation with SCS vs ITDD trial and implants for a longer term pain management if she is deemed non-surgical candidate on 09/22/23 at 11:00, patient was reminded of this appt with [facility]. Patient is aware to call if pain worsens or if they develop any red flag symptoms to seek emergency care. Patient denies any cauda equina syndrome symptoms at this time. All questions were answered and the patient is in agreement of plan. Follow-up after Neurosurgical evaluation and sooner as needed. Greater than 40 minutes were spent in therapeutic application and in coordination of the care. Orders: Orders AMB Capsaicin Patch - Practice Supplied Today G62.9 - Polyneuropathy, unspecified Coding Level of Care Code Est Pt Level 4 (89418) Diagnoses Peripheral neuropathy G62.9 Levoscoliosis of lumbar spine M41.86 Lumbar degenerative disc disease M51.36 Lumbar radiculopathy M54.16 Chronic pain syndrome G89.4
[2023-09-15 09:48] VITALS: BP 135/80; PULSE 98; O2SAT 97; BMI 19.4
[2023-09-15 10:21] VITALS: BP 121/68; PULSE 85; O2SAT 99
[2023-09-15 10:33] VITALS: BP 125/65; PULSE 89; O2SAT 98
== END 2023-09-15 10:39 | disposition home or self-care (01) ==
PROVIDERS: Visit Provider Nurse Practitioner Family
DX: G62.9 Polyneuropathy, unspecified (principal); M41.86 Other forms of scoliosis, lumbar region; M51.36 Other intervertebral disc degeneration, lumbar region; M54.16 Radiculopathy, lumbar region; G89.4 Chronic pain syndrome
CPT/HCPCS: 17999; 99214

== ENCOUNTER → 2023-09-15 09:43 | Outpatient (BNVA) | payer OTHER, SELFPAY | PROVIDERS: Visit Provider Nurse Practitioner Family | DX: G62.9 Polyneuropathy, unspecified (principal); M41.86 Other forms of scoliosis, lumbar region; M51.36 Other intervertebral disc degeneration, lumbar region; M54.16 Radiculopathy, lumbar region; G89.4 Chronic pain syndrome | CPT/HCPCS: 17999; 99212; J7336 ==

== ENCOUNTER 2023-10-06 10:29 | Outpatient (AMB) | payer OTHER, SELFPAY ==
--- NOTE | 2023-10-06 10:46 | A.OFFVIS_ITS ---
Intake Intake Visit Reasons: low back pain Laminator Preforms Required: Yes Allergies aspirin [ASA] Allergy (Intermediate, Verified 09/15/23 10:35) RASH ibuprofen [Ibuprofen] Allergy (Intermediate, Verified 09/15/23 10:35) RASH morphine [MORPHINE] Allergy (Intermediate, Verified 09/15/23 10:35) ITCHING naproxen [From NAPROSYN] Allergy (Intermediate, Verified 09/15/23 10:35) RASH,N/V oxycodone [OXYCODONE] Allergy (Intermediate, Verified 09/15/23 10:35) NAUSEA & VOMITING, RASH sulfamethoxazole [From Bactrim] Adverse Reaction (Severe, Verified 09/15/23 10:35) Abdominal Pain trimethoprim [From Bactrim] Adverse Reaction (Severe, Verified 09/15/23 10:35) Abdominal Pain PFSH Medical History Chronic pain syndrome Osteoarthritis GERD (gastroesophageal reflux disease) History of COVID-19 Emphysema lung Hyperlipidemia Hypertension Asthma Hemorrhoids with complication UTI (urinary tract infection) Malignant neoplasm of urinary bladder Bladder mass Surgical History History of surgery History of ERCP Hx laparoscopic cholecystectomy Hx of cystoscopy History of hysterectomy with bilateral oophorectomy Hx of colonoscopy (01/17/19) History of esophagogastroduodenoscopy (EGD) Family History Father No problems noted. Mother Diabetes Brother Lung cancer Daughter Diabetes Social History Household Members: Family Housing: Apartment Do you presently have visiting nurse or other home services: Yes Alcohol intake: never Patient Tobacco Use Status: Former Tobacco user Quit Date: 7 yrs ago Years Smoked: 56 service: No Current occupational status: retired Current occupation: rt handed Assessment & Plan Assessment & Plan (1) Levoscoliosis of lumbar spine: Code(s): M41.86 - Other forms of scoliosis, lumbar region Plan Dear Carmelina, Thank you for referring Mrs Alba to our office today. She is a very nice German-speaking female who presents to the office today with a history of chronic low back pain and over the last 4-5 years progressive leg pain down the back of her legs into her calves when she stands and walks. She denies any tingling numbness or weakness. She has history of bladder cancer but denies any incontinence. She has been through cortisone injections, therapy and medication trials throughout the years. She was sent today to see us with MRI showing a severe levoscoliosis with severe central canal stenosis at L3-4, and at the lower thoracic T11-12. PMH: She is has a number of medical issues which she has a hard time articulating. I used an japanese interpreter but she tells me she has a history of bladder cancer which is more less a chronic condition that comes and goes but it does not have any metastases at this point according to her. History of asthma and emphysema, hypertension, apparently she had a number of kidney procedures that ended up with complications causing her to have urine into her peritoneum and this required repair. The exact details of all these medical issues are limited. Social hx: She quit smoking 15 years ago, denies any alcohol or drugs Medications: Please see the [facility] extensive list for all of her medications Allergies: Please see the [facility] [employer] list Physical exam: She is awake alert oriented, she walks with a walker she is able to stand up out of the chair on her own, she does have some limitations with hip flexion which causes her pain in her back but I do not detect any focal neurological weakness. Reflexes are absent in the patella and the Achilles. No clonus. Imaging review: There is a lumbar MRI done at [facility] showing a severe angulated levoscoliosis with what appears to be auto fusion of the upper lumbar segments into the thoracic spine. The report suggests that there is stenosis with cord signal change at this level in the T11-12 region but I do not see any evidence of T2 signal intensity on the sagittal or the axial views. According to the radiologist it is chronic. At L3-4 she does have severe central canal stenosis. She has multiple other degenerative changes at the L3-4 and L4-5 and even L5-S1 levels. Her CT scan done of her abdomen previous to the MRI shows severely osteoporotic spine. Impression: 78-year-old female presents for evaluation of what sounds like claudicating leg pains and back pains when she stands and walks which gets better when she sits. I think the symptoms are coming from L3-4. She has been through conservative treatments. The patient has a complicated situation in that she not only has osteoporosis, she has a severe scoliosis with multiple fused segments of the upper lumbar spine and what looks like probably adjacent segment arthritic changes at L3-4 causing severe stenosis centrally. There is mention of stenosis at the lower thoracic levels with myelomalacia but I do not appreciate this to be quite as bad as what is going on at L3-4 and I do not see the cord signal change. She has no pathological reflexes. Her symptoms fit better with the L3-4 stenosis. The problem here is that with her scoliosis if we attempt to do a simple decompression there is a chance we could destabilize her and her bone quality is so poor that there is little chance we could do any kind of corrective surgery with instrumentation to fix this. The patient is very reluctant if not resistant to the idea of surgery and I certainly do not want to push it on her, as she would be high risk for complications not only from the anatomy of her spine to her multiple medical problems. Therefore she feels as though she would rather just live with this rather than take any chance that something could go wrong. This is certainly reasonable. She understands that it although it is not guaranteed, it may get worse over time necessitating her to be in a wheelchair. Thank you for allowing us to care for your patient. The total time spent with this visit with this patient was 45 minutes reviewing history, physical exam, lumbar imaging review, and implementation of treatment plan or further diagnostic testing Sesar Faye MD,PhD [facility] Coding Level of Care Code New Pt Level 4 (36551) Diagnoses Levoscoliosis of lumbar spine M41.86
== END 2023-10-06 11:58 | disposition home or self-care (01) ==
PROVIDERS: PCP General Practice; Referring Provider Nurse Practitioner Family; Visit Provider Physician Assistant
DX: M41.86 Other forms of scoliosis, lumbar region (principal)
CPT/HCPCS: 99204

== ENCOUNTER → 2023-10-06 10:29 | Outpatient (BNVA) | payer OTHER, SELFPAY | PROVIDERS: PCP General Practice; Visit Provider Physician Assistant | DX: M41.86 Other forms of scoliosis, lumbar region (principal); M48.061 Spinal stenosis, lumbar region without neurogenic claudication; M48.04 Spinal stenosis, thoracic region | CPT/HCPCS: 99202 ==

== ENCOUNTER 2023-12-04 09:27 | Outpatient (AMB) | payer OTHER, SELFPAY ==
--- NOTE | 2023-12-04 09:45 | A.OFFVIS_ITS ---
Intake Vital Signs 12/04/23 09:50 Height 5 ft 2 in Weight 111 lb BMI 20.3 Intake Visit Reasons: OV- B/L shoulder pain, L shldr last inj 06/29/22 Intake Note: Altaf a 76 year old Albanian speaking female presents today for a follow up of bilateral shoulder pain, last injections on 06/29/22. Patient reports last injections provided her relief until recently, stating her pain returned the past 2 months. She is requesting to repeat injection. Allergies aspirin [ASA] Allergy (Intermediate, Verified 12/04/23 09:48) RASH ibuprofen [Ibuprofen] Allergy (Intermediate, Verified 12/04/23 09:48) RASH morphine [MORPHINE] Allergy (Intermediate, Verified 12/04/23 09:48) ITCHING naproxen [From NAPROSYN] Allergy (Intermediate, Verified 12/04/23 09:48) RASH,N/V oxycodone [OXYCODONE] Allergy (Intermediate, Verified 12/04/23 09:48) NAUSEA & VOMITING, RASH sulfamethoxazole [From Bactrim] Adverse Reaction (Severe, Verified 12/04/23 09:48) Abdominal Pain trimethoprim [From Bactrim] Adverse Reaction (Severe, Verified 12/04/23 09:48) Abdominal Pain HPI OV- B/L shoulder pain, L shldr last inj 06/29/22 HPI Details 78 yo female returns to the office today for bilat shoulder pain. She states since her last injection June of 2022 she has had pretty good relief. She has been able to perform most activities. She states recently her pain has limited her from performing daily activities such as reaching above shoulder height. She is currently undergoing it treatment for bladder cancer. [facility] Medical History Chronic pain syndrome Osteoarthritis GERD (gastroesophageal reflux disease) History of COVID-19 Emphysema lung Hyperlipidemia Hypertension Asthma Hemorrhoids with complication UTI (urinary tract infection) Malignant neoplasm of urinary bladder Bladder mass Surgical History History of surgery History of ERCP Hx laparoscopic cholecystectomy Hx of cystoscopy History of hysterectomy with bilateral oophorectomy Hx of colonoscopy (01/17/19) History of esophagogastroduodenoscopy (EGD) Family History Father No problems noted. Mother Diabetes Brother Lung cancer Daughter Diabetes Social History Household Members: Family Housing: Apartment Do you presently have visiting nurse or other home services: Yes Alcohol intake: never Patient Tobacco Use Status: Former Tobacco user Quit Date: 7 yrs ago Years Smoked: 56 service: No Current occupational status: retired Current occupation: rt handed Review of Systems Const All systems reviewed & are unremarkable except as noted in HPI and below Physical Exam Vital Signs: BMI result Body Mass Index 20.3 Extrem Other: Left shoulder pain with active motion, i can passively move her to 170. Er to 90. RTC strength intact. Right shoulder pain with ROM in all planes and limited ER to 45. Office Procedures Joint Injection/Drain Joint Injection/Drain Primary Site: right shoulder Secondary Site: left shoulder Prep: site was prepped using aseptic technique, ethochloride spray was applied and injection warnings given Injected: 40 mg of, DepoMedrol, with 8 mL of, 1% plain lidocaine and in the subcromial space Approach Used: posterolateral Procedure: The patient tolerated the procedure well and there was some relief with the local anesthesia Coding 57287 - Glenohumeral/Tronchanteric Bursa/Intraarticular Procedure code (CPT) selection complete Results Reviewed Results Reviewed: Xrays were obtained in the office today and personally reviewed by me of donna shoulders show ghj and acj oa Assessment & Plan Assessment & Plan (1) Osteoarthritis of shoulders, bilateral: Code(s): M19.011 - Primary osteoarthritis, right shoulder; M19.012 - Primary osteoarthritis, left shoulder Qualifiers: Osteoarthritis type: primary Qualified Code(s): M19.011 - Primary osteoarthritis, right shoulder; M19.012 - Primary osteoarthritis, left shoulder Plan: We discussed options today, which include steroid injection. The patient did consent to move forward with the injection, which was tolerated well.? I recommended rest, ice and elevation and OTC antiinflammatories prn for discomfort. If symptoms persist over the next 6-8 weeks, they will contact our office, otherwise, prn Orders: Orders XR shoulder LT min 2V Today M25.512 - Pain in left shoulder XR shoulder RT min 2V Today M25.511 - Pain in right shoulder Coding Level of Care Code Est Pt Level 3 (12869) Diagnoses Primary osteoarthritis of both shoulders M19.011; M19.012 Osteoarthritis type: primary CPT Codes Coding - Joint 7: 30297 - Glenohumeral/Tronchanteric Bursa/Intraarticular ([id number])
[2023-12-04 09:50] VITALS: BMI 20.3
== END 2023-12-04 10:16 | disposition home or self-care (01) ==
PROVIDERS: Visit Provider Physician Assistant
DX: M19.011 Primary osteoarthritis, right shoulder (principal); M19.012 Primary osteoarthritis, left shoulder
CPT/HCPCS: 20610; 99213

== ENCOUNTER 2023-12-04 10:54 | Outpatient (REF) | payer OTHER, SELFPAY ==
--- NOTE | ~2023-12-04 | XR_ITS ---
EXAMINATION: XR SHOULDER, RIGHT CLINICAL INFORMATION: Pain. COMPARISON: Radiographs dated 06/29/2022. TECHNIQUE: AP external rotation, Grashey, scapular Y, and axillary views of the right shoulder. FINDINGS: There is bony demineralization. The glenohumeral joint is intact and shows moderate osteoarthritic change. The acromioclavicular and coracoclavicular intervals are normal. There is moderate osteoarthritic change of the acromioclavicular joint. There is narrowing of the rotator cuff interval. There is cortical irregularity of the greater tuberosity of the proximal right humerus. No fracture or dislocation is seen. There is no focal soft tissue calcification or foreign body. No right pneumothorax is seen. XR/XR shoulder RT min 2V IMPRESSION: 1. There is moderate osteoarthritic change of the right glenohumeral and acromioclavicular joints. 2. Findings are consistent with right rotator cuff impingement. No rk calcific tendinitis is noted. EXAMINATION: XR SHOULDER, LEFT CLINICAL INFORMATION: Pain. COMPARISON: Radiographs dated 09/29/2021. TECHNIQUE: AP external rotation, Grashey, scapular Y, and axillary views of the left shoulder. FINDINGS: There is bony demineralization. The glenohumeral joint is intact and shows moderate osteoarthritic change. The acromioclavicular and coracoclavicular intervals are normal. There is moderate osteoarthritic change of the acromioclavicular joint. There is narrowing of the rotator cuff interval. There is a distal acromial undersurface osteophyte, and there is cortical irregularity of the greater tuberosity of the proximal left humerus. No fracture or dislocation is seen. There is no abnormal soft tissue calcification or foreign body. No left pneumothorax is seen. IMPRESSION: 1. There is moderate osteoarthritic change of the left glenohumeral and acromioclavicular joints. 2. Findings are consistent with left rotator cuff impingement, without rk calcific tendinitis noted.
--- NOTE | ~2023-12-04 | XR_ITS ---
EXAMINATION: XR SHOULDER, RIGHT CLINICAL INFORMATION: Pain. COMPARISON: Radiographs dated 06/29/2022. TECHNIQUE: AP external rotation, Grashey, scapular Y, and axillary views of the right shoulder. FINDINGS: There is bony demineralization. The glenohumeral joint is intact and shows moderate osteoarthritic change. The acromioclavicular and coracoclavicular intervals are normal. There is moderate osteoarthritic change of the acromioclavicular joint. There is narrowing of the rotator cuff interval. There is cortical irregularity of the greater tuberosity of the proximal right humerus. No fracture or dislocation is seen. There is no focal soft tissue calcification or foreign body. No right pneumothorax is seen. XR/XR shoulder LT min 2V IMPRESSION: 1. There is moderate osteoarthritic change of the right glenohumeral and acromioclavicular joints. 2. Findings are consistent with right rotator cuff impingement. No rk calcific tendinitis is noted. EXAMINATION: XR SHOULDER, LEFT CLINICAL INFORMATION: Pain. COMPARISON: Radiographs dated 09/29/2021. TECHNIQUE: AP external rotation, Grashey, scapular Y, and axillary views of the left shoulder. FINDINGS: There is bony demineralization. The glenohumeral joint is intact and shows moderate osteoarthritic change. The acromioclavicular and coracoclavicular intervals are normal. There is moderate osteoarthritic change of the acromioclavicular joint. There is narrowing of the rotator cuff interval. There is a distal acromial undersurface osteophyte, and there is cortical irregularity of the greater tuberosity of the proximal left humerus. No fracture or dislocation is seen. There is no abnormal soft tissue calcification or foreign body. No left pneumothorax is seen. IMPRESSION: 1. There is moderate osteoarthritic change of the left glenohumeral and acromioclavicular joints. 2. Findings are consistent with left rotator cuff impingement, without rk calcific tendinitis noted.
== END 2023-12-04 10:55 | disposition home or self-care (01) ==
LOC: HO.HOSX 10:54
PROVIDERS: Visit Provider Physician Assistant
DX: M19.012 Primary osteoarthritis, left shoulder (principal); M19.011 Primary osteoarthritis, right shoulder
CPT/HCPCS: 20610; 73030; 99212; J1020

== ENCOUNTER 2023-12-19 08:08 | Outpatient (REF) | payer OTHER, SELFPAY ==
--- NOTE | ~2023-12-19 | MR_ITS ---
EXAMINATION: MR PELVIS WITH AND WITHOUT CONTRAST CLINICAL INFORMATION: Recurrent pelvic pain/hematuria. History of bladder cancer. COMPARISON: PET/CT 08/08/2023. Pelvic MRI 10/26/2022. TECHNIQUE: Multiple routine MRI sequences through the pelvis were obtained on a high-field 1.5 Bonnie MRI before and after the uneventful administration of 4.5 mL Gadavist gadolinium-based IV contrast. FINDINGS: Limited examination secondary to motion. Abnormal mass-like and polypoid thickening within several regions of the urinary bladder wall, new compared to pelvic MRI from 10/26/2022. For example: mass-like thickening measuring 5.2 x 2.7 cm from 8-1 o'clock (image 21 series 9) extending to the bladder base, previously approximately 5 x 2.6 cm on prior PET. Polypoid nodule measuring 1.5 x 1.4 cm at 9 o'clock (image 20 series 9), previously 1.5 x 1.4 cm on prior PET. New polypoid nodule measuring 2.1 x 1.8 cm at 9-10 o'clock (image 18 series 9). Hysterectomy. No discrete vaginal or cervical mass. The ovaries are not well visualized. Severe right hydroureteronephrosis, new compared to prior PET. The right ureterovesical junction is encased by the bladder masses (image 21 series 5). The internal urethral orifice contacts the inferior aspect of one of the bladder masses with possible encasement as well (image 23 series 9). No free fluid in the pelvis. There is a round intermediate T2 signal abnormal-appearing lymph node abutting the origin of the left common iliac artery measuring 0.9 x 0.8 cm (image 3 series 5) increase in size from 0.4 cm on prior PET. Tricompartmental pelvic descent. Severe colonic diverticulosis without significant pericolonic inflammatory changes in the included portions of the bowel. No aggressive appearing osseous findings. Severe thoracolumbar scoliosis with degenerative changes of the spine, best characterized on a recent MRI from 08/12/2023. Unchanged vertebral body height loss at L5. MR/MR pelvis wo/w con IMPRESSION: Findings most consistent with recurrent urinary bladder neoplasia, new compared to pelvic MRI from 10/26/2022 and increased compared to PET from 08/08/2023. There is encasement of the right ureterovesical junction leading to severe right hydroureteronephrosis as well as possible encasement of the internal urethral orifice. There is an abnormal appearing left common iliac lymph node, increased in size compared to prior PET concerning for malignant involvement.
[2023-12-19] MEDS: gadobutroL 10 ML VIAL IVPUSH (09:05)
== END 2023-12-19 08:09 | disposition home or self-care (01) ==
LOC: HO.MRI 08:08
PROVIDERS: PCP General Practice; Visit Provider Internal Medicine
DX: N13.30 Unspecified hydronephrosis (principal); C67.9 Malignant neoplasm of bladder, unspecified
CPT/HCPCS: 72197; A9585

== ENCOUNTER 2023-12-21 11:07 | Outpatient (AMB) | payer OTHER, SELFPAY ==
[2023-12-21 11:17] VITALS: BP 155/70; PULSE 92; O2SAT 98; BMI 19.2
--- NOTE | 2023-12-21 11:17 | MHC.OFFVIS ---
Intake Vital Signs 12/21/23 11:17 12/21/23 11:51 12/21/23 12:03 Height 5 ft 2 in Weight 105 lb 4 oz BMI 19.2 BP 155/70 H 119/66 119/68 Blood Pressure Location Lt brachial Lt brachial Lt brachial Position Sitting Sitting Sitting Pulse 92 81 82 Pulse Source Pulse Oximeter Pulse Oximeter Pulse Oximeter Pulse Oximetry (%) 98 98 Oxygen Delivery Method Room Air Room Air Comment 15 mins after qutenza application 30 mins after qutenza application Intake Visit Reasons: QUTENZA/DN Allergies aspirin [ASA] Allergy (Intermediate, Verified 12/21/23 11:17) RASH ibuprofen [Ibuprofen] Allergy (Intermediate, Verified 12/21/23 11:17) RASH morphine [MORPHINE] Allergy (Intermediate, Verified 12/21/23 11:17) ITCHING naproxen [From NAPROSYN] Allergy (Intermediate, Verified 12/21/23 11:17) RASH,N/V oxycodone [OXYCODONE] Allergy (Intermediate, Verified 12/21/23 11:17) NAUSEA & VOMITING, RASH sulfamethoxazole [From Bactrim] Adverse Reaction (Severe, Verified 12/21/23 11:17) Abdominal Pain trimethoprim [From Bactrim] Adverse Reaction (Severe, Verified 12/21/23 11:17) Abdominal Pain HPI HPI Comments History of Present Illness Details Patient presents for 3rd application of capsaicin 8% topical patch for peripheral neuropathy in bilateral feet. Denies any recent cough, cold, infection, fever or other significant changes in medical history since last office visit. Past procedures: 07/17/23, 09/15/23: Capsaicin 8% topical patch applications 06/21/23: Bilateral Ischial Bursal Injection- 0% pain relief PRIOR: Patient is a pleasant 77 years old female with prior history lumbar degenerative disc disease, arthritis, levoscoliosis, peripheral neuropathy bladder cancer status post chemotherapy, cystoscopy, percutaneous right nephrostomy tube placement and removal, presents today for initial evaluation of low back pain is radiation into her lower buttocks and posterior lower extremities with weakness, numbness and tingling and had burning and stabbing pain in both feet. Patient also presents with localized tenderness in the projection of bilateral ischial tuberosity. Pain increases with prolonged walking or sitting. Patient is constantly repositioning herself and flexes forward to relieve her lower back pain during today's visit. Patient reports peripheral neuropathy pain in both of her feet. Pain has been constant and is rated 10/10 all the time. Pain affects her general activities, walking, and sleep. Patient reports she has tried manage her pain with tramadol and gabapentin but cannot tolerate it well due to nausea. Denies previous spine surgery or injections. Most recent imaging noted for degenerative spondylosis throughout lumbar spine with moderate levoscoliosis of dorsal lumbar junction. Patient denies any fever, chills, shortness of breath, weight changes, bowel dysfunction or saddle anesthesia. Location Bilateral lower buttocks pain radiates down bilteral lower legs Duration Chronic pain for 4 years Characteristics of symptom or complaint Cramping, squeezing, tingling, stabbing, burning, tingling, numbness Aggravating or associated factors Movements, walking, sitting for long periods of time Relieving factors Tramadol, gapabentin, rest, changing positions, heat therapy Treatment Physical therapy-minimal improvement in function but no pain relief PFSH Medical History Chronic pain syndrome Osteoarthritis GERD (gastroesophageal reflux disease) History of COVID-19 Emphysema lung Hyperlipidemia Hypertension Asthma Hemorrhoids with complication UTI (urinary tract infection) Malignant neoplasm of urinary bladder Bladder mass Surgical History History of surgery History of ERCP Hx laparoscopic cholecystectomy Hx of cystoscopy History of hysterectomy with bilateral oophorectomy Hx of colonoscopy (01/17/19) History of esophagogastroduodenoscopy (EGD) Family History Father No problems noted. Mother Diabetes Brother Lung cancer Daughter Diabetes Social History Household Members: Family Housing: Apartment Do you presently have visiting nurse or other home services: Yes Alcohol intake: never Patient Tobacco Use Status: Former Tobacco user Quit Date: 7 yrs ago Years Smoked: 56 service: No Current occupational status: retired Current occupation: rt handed Review of Systems Const All systems reviewed & are unremarkable except as noted in HPI and below Physical Exam Vital Signs: Last Vital Signs Pulse 82 12/21/23 12:03 BP 119/68 12/21/23 12:03 Pulse Ox 98 04/11/24 11:51 Oxygen Delivery Method Room Air 12/21/23 11:51 BMI result Body Mass Index 19.2 General: Appears afebrile. Alert and oriented. Mood and affect appropriate. Follows and participates in conversation appropriately. Respiratory effort is unlabored. No cough. Able to transition from sit to stand unassisted. Ambulates with slow, antalgic gait with use of walker with seat. Lumbar flexion and extension reproduces moderate symptoms. SLR testing positive bilaterally, right>left. Skin General skin exam: no rashes or lesions noted Extrem Other: There is decreased sensation over the soles of the feet and the toes. No breaks in the skin. No soft tissue swelling, no redness or warmth. Full ROM. Normal capillary refill. No clubbing, cyanosis or edema. No calf tenderness. Pulses +2 throughout bilaterally. Office Procedures Topical Capsaicin Date 1:: 07/17/23 Date 2:: 09/15/23 Date 3:: 12/21/23 Main area of pain on the body: Bilateral feet and toes Laterality: Bilateral Location of left foot pain: Plantar, Dorsal, Medial, Lateral and Distal Location of right foot pain: Plantar, Dorsal, Medial, Lateral and Distal Quality of pain: Aching, Nagging, Burning, Gnawing, Numb-like, Tiring and Unbearable Details:: Two patches, 560 cm2 were utilized per each foot. EMLA Cream (lidocaine 2.5% and prilocaine 2.5%) was not applied at home by patient prior to application of the patches. Patient elected to proceed without EMLA cream. The patient tolerated the procedure well. Patient?s vitals signs remained stable throughout the procedure. Patient was able to complete the stipulated 30 minutes of the therapeutic application without any discomfort. Office Meds capsaicin-skin cleanser 8 % topical kit Performing Provider: LIZY Blanco [place]forming Location: [facility] Administered by: LIZY Blanco on 12/21/23 11:30 Dose Route Admin Location Dispensed Lot Number Expiration Date NDC Vice [employer] 4 ea topical [facility] 4 ea [id number] 02/09/26 78482-517-26 [employer] Results Reviewed Results Reviewed: MR LUMBAR SPINE WITHOUT CONTRAST 08/12/23 CLINICAL INFORMATION: Lumbar region scoliosis. COMPARISON: Lumbar spine MRI 12/11/2018. FINDINGS: 5 nonrib-bearing lumbar-type vertebral bodies are considered for this report with the last completely developed intervertebral disc considered L5-S1. Severe leftward convex scoliotic curvature of the lumbar spine with the apex at L1-L2. There is chronic vertebral body height loss at the L1, L2, L3, L4, and L5 levels. There is no bone marrow edema to suggest an acute fracture. There is disc desiccation at all lumbar levels. Severe right-sided disc volume loss at T12-L1, L1-L2, and L2-L3. Mild left-sided disc volume loss at L3-L4. Conus terminates at the L1 level. Chronic T2 signal changes within the distal cord/at the conus are unchanged, presumably chronic myelomalacia. Paraspinal muscular atrophy bilaterally. At T11-T12, a central disc protrusion along with advanced facet arthropathy and ligamentum flavum thickening result in worsening severe central canal stenosis and mass effect on the lower thoracic cord. Disc and facet arthropathy result in severe left foraminal stenosis with similar compression of the exiting left nerve root. L1-L2: Annular disc bulge and bilateral facet arthropathy result in asymmetric right subarticular zone stenosis that is stable mass effect on traversing nerve roots within the right subarticular zone. No central canal stenosis. Disc osteophyte and facet arthropathy result in moderate to severe right foraminal stenosis with mass effect on the exiting right nerve root that is unchanged. L2-L3: Diffuse disc osteophyte complex with a superimposed far right lateral disc osteophyte protrusion and moderate bilateral facet arthropathy and ligamentum flavum thickening. Findings in concert result in mild central canal stenosis, right subarticular zone stenosis with mass effect on the traversing right nerve root, and moderate right-sided foraminal stenosis with the right lateral disc osteophyte protrusion resulting in mass effect on the extraforaminal right L2 nerve root. L3-L4: There is a new superiorly migrating right paracentral disc extrusion that contributes towards worsening compression of the traversing right L4 nerve root within the right subarticular zone. There is also a progressive left paracentral disc protrusion resulting in worsening compression of the traversing left L4 nerve root within the left subarticular zone. Advanced facet arthropathy and ligamentum flavum thickening. Progressive moderate to severe central canal stenosis and progressive moderate to severe bilateral foraminal stenosis with mass effect on the exiting L3 nerve roots bilaterally L4-L5: Slight grade 1 anterolisthesis. Diffuse annular disc bulge is in part disc osteophyte with a superimposed left lateral disc osteophyte protrusion. Advanced left and moderate right facet arthropathy. Findings in concert result in mild central canal stenosis, similar severe bilateral subarticular zone stenosis with compression of the traversing L5 nerve roots bilaterally, and moderate bilateral foraminal stenosis. L5-S1: A broad-based central disc protrusion is progressed, resulting in increased mass effect on the traversing left greater then right S1 nerve roots within the subarticular zones in worsening mild central canal stenosis. Disc and facet arthropathy result in similar severe left and worsening moderate to severe right foraminal stenosis with compression of the exiting left greater then right L5 nerve roots. IMPRESSION: - Severe leftward convex scoliotic curvature of the lumbar spine superimposed on advanced multilevel degenerative disc disease and hypertrophic facet arthropathy: - At T11-T12, a central disc protrusion along with advanced facet arthropathy and ligamentum flavum thickening result in worsening severe central canal stenosis and mass effect on the lower thoracic cord. Disc and facet arthropathy result in severe left foraminal stenosis with similar compression of the exiting left nerve root. Chronic T2 signal changes within the distal cord/at the conus are unchanged, presumably chronic myelomalacia. - At L1-L2, multifactorial degenerative changes result in stable mass effect on traversing nerve roots within the right subarticular zone and moderate to severe right foraminal stenosis with mass effect on the exiting right nerve root that is unchanged. - At L2-L3, multifactorial degenerative changes result in similar right subarticular zone stenosis with mass effect on the traversing right nerve root, and moderate right-sided foraminal stenosis with the right lateral disc osteophyte protrusion resulting in mass effect on the extraforaminal right L2 nerve root. - At L3-L4, progressive spondylitic changes including a new superiorly migrating right paracentral disc extrusion and a progressive left paracentral disc protrusion resulting in worsening compression of the traversing L4 nerve roots within the subarticular zones bilaterally as well as worsening moderate to severe canal stenosis and progressive moderate to severe bilateral foraminal stenosis with mass effect on the exiting L3 nerve roots bilaterally - At L4-L5, slight grade 1 anterolisthesis and advanced multifactorial degenerative changes result in mild central canal stenosis, similar severe bilateral subarticular zone stenosis with compression of the traversing L5 nerve roots bilaterally, and moderate bilateral foraminal stenosis. - At L5-S1, there is a progressive broad-based central disc protrusion resulting in increased mass effect on the traversing left greater then right S1 nerve roots within the subarticular zones in worsening mild central canal stenosis. Disc and facet arthropathy result in similar severe left and worsening moderate to severe right foraminal stenosis with compression of the exiting left greater then right L5 nerve roots. - Dilatation of the partially imaged right renal collecting system and proximal right ureter with associated urothelial thickening which is improved when compared to 06/02/[address] Assessment & Plan Assessment & Plan (1) Chronic pain syndrome: Code(s): G89.4 - Chronic pain syndrome (2) Peripheral neuropathy: Code(s): G62.9 - Polyneuropathy, unspecified (3) Lumbar degenerative disc disease: Code(s): M51.36 - Other intervertebral disc degeneration, lumbar region (4) Lumbar spinal stenosis: Comment: 08/12/23: lumbar spine MRI, L3-L4 lumbar spinal stenosis 10/06/23: [facility]deemed non-surgical candidate due to osteoporosis, severe scoliosis with multiple fused segments of the upper lumbar spine and multiple medical comorbidities. Code(s): M48.061 - Spinal stenosis, lumbar region without neurogenic claudication Plan Patient is status post 3rd round of application of topical capsaicin 8% for peripheral neuropathy in bilateral feet. Patient tolerated the procedure without significant discomfort and without application of EMLA cream prior to the procedure. Patient was discharged home in stable condition with discharge instructions. Next Qutenza scheduled in 3 months. All questions were answered and the patient is in agreement of plan. Follow-up as needed. Greater than 35 minutes were spent in therapeutic application and in coordination of the care. Orders: Orders AMB Capsaicin Patch - Practice Supplied Today G62.9 - Polyneuropathy, unspecified, G89.4 - Chronic pain syndrome Coding Level of Care Code Est Pt Level 4 (01797) Diagnoses Chronic pain syndrome G89.4 Peripheral neuropathy G62.9 Lumbar degenerative disc disease M51.36 Lumbar spinal stenosis M48.061
[2023-12-21 11:51] VITALS: BP 119/66; PULSE 81; O2SAT 98
[2023-12-21 12:03] VITALS: BP 119/68; PULSE 82
== END 2023-12-21 12:02 | disposition home or self-care (01) ==
PROVIDERS: PCP General Practice; Visit Provider Nurse Practitioner Family
DX: G89.4 Chronic pain syndrome (principal); G62.9 Polyneuropathy, unspecified; M51.36 Other intervertebral disc degeneration, lumbar region; M48.061 Spinal stenosis, lumbar region without neurogenic claudication
CPT/HCPCS: 17999; 99214

== ENCOUNTER → 2023-12-21 11:07 | Outpatient (BNVA) | payer OTHER, SELFPAY | PROVIDERS: PCP General Practice; Visit Provider Nurse Practitioner Family | DX: G62.9 Polyneuropathy, unspecified (principal); M51.36 Other intervertebral disc degeneration, lumbar region; M48.061 Spinal stenosis, lumbar region without neurogenic claudication; G89.4 Chronic pain syndrome | CPT/HCPCS: 17999; 99212; J7336 ==

== ENCOUNTER 2023-12-28 12:00 | Day surgery (SDC) | payer OTHER, SELFPAY ==
--- NOTE | ~2023-12-28 | FL_ITS ---
EXAMINATION: FLUOROSCOPY NEPHROSTOGRAM CLINICAL INFORMATION: Bladder tumor. Obstructive uropathy COMPARISON: MRI pelvis12/19/23. TECHNIQUE/FINDINGS: Informed consent was obtained following discussion of the risks and benefits of the procedure with the patient utilizing a site interpreter. The patient was placed prone on the fluoroscopy table. The bilateral flanks were sterilely prepped and draped. Preliminary ultrasound demonstrates severe right hydronephrosis and mild-moderate left hydronephrosis. The right kidney was addressed first. Following the administration of 1% lidocaine for local anesthesia, a midlower pole posterior calyx was accessed with a 21-gauge AccuStick needle under direct ultrasound guidance. The needle was exchanged for a triaxial dilator over a 0.018 guidewire. Inner dilator and guidewire were removed and a 0.035 wire was placed. The tract was dilated and an 8.5 [place] Islander nephrostomy tube was placed. The pigtail was formed in the renal pelvis. Contrast injection demonstrates satisfactory position of the tube. The external portion of the tube was secured with suture and a dressing was applied. The tube was maintained to gravity bag drainage. Then the left kidney was addressed. Following the administration of 1% lidocaine for local anesthesia, a midlower pole posterior calyx was accessed with a 21-gauge AccuStick needle under direct ultrasound guidance. The needle was exchanged for a triaxial dilator over a 0.018 guidewire. Inner dilator and guidewire were removed and a 0.035 wire was placed. The tract was dilated and an 8.5 [place] Islander nephrostomy tube was placed. The pigtail was formed in the renal pelvis. Contrast injection demonstrates satisfactory position of the tube. The external portion of the tube was secured with suture and a dressing was applied. The tube was maintained to gravity bag drainage. FLUOROSCOPY TIME: 2.5 minutes DOSE AREA PRODUCT: 15 uGy-m2 (microgray-meter squared) FL/FL guidance in OR IMPRESSION: Successful placement of bilateral nephrostomy tubes.
[2023-12-28 12:53] VITALS: BMI 18.4
[2023-12-28 13:20] VITALS: BP 143/86; PULSE 86; RESP 16; TEMP 37.3; O2SAT 98
--- NOTE | 2023-12-28 14:05 | MHC.SHP ---
Pre-Procedural Eval Section A - 24 Hr Update-Section A only Date of Service: 12/28/23 The patient is an INPATIENT: No Changes since office visit: No Cold of Flu in the past 2 weeks, No New Medical Problems, No Changes in Medication and No Patient answered all questions The patient has been examined within 24 hours of the surgical procedure. The History & Physical has been completed within 30 days and I have reviewed it.: No Section B - Complete if H&P > 30 days Chief Complaint: Malignant neoplasm of overlapping sites of bladder Details of Present Illness: Recurrent bilateral hydro nephrosis. Oncology would like stents placed for rising creatinine. Relevant Family History (Specify if Yes): No Relevant Social History: None Present Medications: see Short Stay Collaborative assessment Medical History: Significant History History of Previous Operations: Relevant previous surgery/procedure and date(s) Allergies: Allergies Allergy/AdvReac Type Severity Reaction Status Date / Time aspirin [ASA] Allergy Intermediate RASH Verified 12/28/23 12:51 ibuprofen [Ibuprofen] Allergy Intermediate RASH Verified 12/28/23 12:51 morphine [MORPHINE] Allergy Intermediate ITCHING Verified 12/28/23 12:51 naproxen [From NAPROSYN] Allergy Intermediate RASH,N/V Verified 12/28/23 12:51 oxycodone [OXYCODONE] Allergy Intermediate NAUSEA & Verified 12/28/23 12:51 VOMITING, RASH sulfamethoxazole AdvReac Severe Abdominal Verified 12/28/23 12:51 [From Bactrim] Pain trimethoprim [From Bactrim] AdvReac Severe Abdominal Verified 12/28/23 12:51 Pain Review of Systems Sugical H&P ROS: Negative: Constitution, Cardiovascular, Respiratory, Neurological, Psychiatric, Hem-Onc, Allergic/Immunologic, Gastrointestinal, Genitourinary, Musculoskeletal, Integumentary, Endocrine and Eyes/Ears/Nose/Throat Exam Surgical H&P Exam: Normal: HEENT, Normal: Heart, Normal: Lungs, Normal: Extremities, Normal: Abdomen, Normal: Skin and Normal: Neurological Plan Diagnosis/Plan: Unchanged (Cystoscopy, bilateral retrograde, bilateral stent placement) I have reviewed the history and physical and performed a pertinent physical examination on my patient. No changes have occurred unless specified. Time Spent With Patient Time: Total time managing care of this patient today ____ minutes.
--- NOTE | 2023-12-28 14:20 | HO.ANESPROP2 ---
HPI - Anesthesia Eval Consult details Narrative: FOR CYSTO PMFSH Active Problems Active Problems: All Active Problems Lumbar spinal stenosis (Acute) Chronic pain syndrome (Acute) Encounter for preoperative pulmonary examination (Acute) Ischial bursitis (Acute) Lumbar spondylosis (Acute) Levoscoliosis of lumbar spine (Acute) Lumbar degenerative disc disease (Acute) Peripheral neuropathy (Acute) Hematuria (Acute) Acute UTI (Acute) NADEEN (acute kidney injury) (Acute) 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 (Acute) Encounter for preoperative pulmonary examination (Acute) Hydronephrosis (Acute) Candidal urinary tract infection (Acute) Bladder cancer (Chronic) Malignant neoplasm of bladder neck (Acute) Vaginal mass (Acute) COVID-19 (Acute) UTI (urinary tract infection) (Acute) Sepsis (Acute) Bladder mass (Acute) Hematuria (Acute) H/O primary malignant neoplasm of urinary bladder (Acute) Osteoarthritis of shoulders, bilateral (Acute) Vaginal pain (Acute) Back pain (Acute) Recurrent cough (Acute) Dysuria (Acute) Primary osteoarthritis, left shoulder (Acute) Small intestinal bacterial overgrowth (Acute) Bronchitis (Acute) Abdominal cramping (Acute) Lumbar radiculopathy (Chronic) Hemorrhoids with complication (Acute) Right-sided ischial pain (Acute) Environmental allergies (Acute) Cough (Acute) Gastroesophageal reflux disease (Acute) Moderate persistent allergic asthma (Acute) Trochanteric bursitis, right hip (Acute) Nausea and vomiting (Acute) Chronic idiopathic constipation (Acute) Low back pain due to bilateral sciatica (Acute) Tendonitis of left rotator cuff (Acute) Trochanteric bursitis of left hip (Acute) Hemorrhoids with complication (Acute) Malignant neoplasm of urinary bladder (Acute) UTI (urinary tract infection) (Acute) Past Medical History Medical History Chronic pain syndrome Osteoarthritis GERD (gastroesophageal reflux disease) History of COVID-19 Emphysema lung Hyperlipidemia Hypertension Asthma Hemorrhoids with complication UTI (urinary tract infection) Malignant neoplasm of urinary bladder Bladder mass Family History Family History Father No problems noted. Mother Diabetes Brother Lung cancer Daughter Diabetes Family history of problems with anesthesia: No Surgical History Surgical History History of surgery History of ERCP Hx laparoscopic cholecystectomy Hx of cystoscopy History of hysterectomy with bilateral oophorectomy Hx of colonoscopy (01/17/19) History of esophagogastroduodenoscopy (EGD) History of Problems with Anesthesia: No Social History Social History Household Members: Family Housing: Apartment Do you presently have visiting nurse or other home services: Yes Alcohol intake: never Patient Tobacco Use Status: Former Tobacco user Quit Date: 7 yrs ago Years Smoked: 56 Use of substances other than those prescribed or required for medical reasons: No Are you DNR?: No Advance Directives: No Advance Directives Information Provided: Yes service: No Current occupational status: retired Current occupation: rt handed Meds Allergies Allergy/AdvReac Type Severity Reaction Status Date / Time aspirin [ASA] Allergy Intermediate RASH Verified 12/28/23 12:51 ibuprofen [Ibuprofen] Allergy Intermediate RASH Verified 12/28/23 12:51 morphine [MORPHINE] Allergy Intermediate ITCHING Verified 12/28/23 12:51 naproxen [From NAPROSYN] Allergy Intermediate RASH,N/V Verified 12/28/23 12:51 oxycodone [OXYCODONE] Allergy Intermediate NAUSEA & Verified 12/28/23 12:51 VOMITING, RASH sulfamethoxazole AdvReac Severe Abdominal Verified 12/28/23 12:51 [From Bactrim] Pain trimethoprim [From Bactrim] AdvReac Severe Abdominal Verified 12/28/23 12:51 Pain Active Medications: Current Medications Levofloxacin (Levaquin) 500 mg in 100 mls @ 100 mls/hr IV PREOP ONE Stop: 12/28/23 15:02 Home Medications ?Medication ?Instructions ?Recorded ?Confirmed ?Last Taken ?Type lisinopril 10 mg tablet 15 mg PO DAILY 03/09/22 07/10/23 08/12/22 History cholecalciferol (vitamin D3) 25 50 mcg PO QAM 12/16/22 07/10/23 Unknown History mcg (1,000 unit) chewable tablet (Vitamin D3) ipratropium 20 mcg-albuterol 100 1 puff inhalation QID 12/28/22 07/10/23 12/28/23 07:30 History mcg/actuation mist for inhalation (Combivent Respimat) pravastatin 40 mg tablet 40 mg PO DAILY 12/28/22 07/10/23 Unknown History Exam Height,Weight and Vital Signs: Height 5 ft 4 in Weight 48.534 kg Last Vital Signs Temp 99.1 F 12/28/23 13:20 Pulse 86 12/28/23 13:20 Resp 16 12/28/23 13:20 BP 143/86 H 12/28/23 13:20 Pulse Ox 98 12/28/23 13:20 O2 Del Method Room Air 12/28/23 13:20 Airway Mallampati Class: II TM Dist: >3cm Neck ROM: Limited Heart: RRR Lungs: CTA Assessment and Plan Assessment Anesthesia Assessment: Anesthesia Plan Discussed and Smoking Cess. Discussed Final Anesthetic Review Family History of Problems with Anesthesia: No History of Problems with Anesthesia: No NPO: Yes ASA Class: III Final Preanesthetic Review: No Changes in Pt Med Stat, Meds/Allgs Chart Reviewed, Consent Obtained/Reviewed and Anes Risks/Benef Reviewed Patient Risk: Intermediate Procedure Risk: Low Anesthetic Plan Anesthetic Plan: GA Disposition: Standard PACU
[2023-12-28 15:17] VITALS: BP 144/79; PULSE 81; RESP 20; TEMP 36.6; O2SAT 96
[2023-12-28 15:22] VITALS: BP 150/78; PULSE 77; RESP 20; O2SAT 98
[2023-12-28 15:27] VITALS: BP 149/73; PULSE 76; RESP 20; O2SAT 98
[2023-12-28] MEDS: Acetaminophen 1,000 MG/100 ML PIGGYBACK 400 MG IV (15:29)
[2023-12-28] MEDS: Phenazopyridine HCL 100 MG TABLET PO (15:30)
[2023-12-28 15:32] VITALS: BP 136/71; PULSE 77; RESP 20; O2SAT 98
--- NOTE | 2023-12-28 15:42 | W.PM.OPN ---
Operative Note Operative Note Date of Service: 12/28/23 Narrative: PreOperative Diagnosis: Bilateral hydroureteronephrosis Post Operative Diagnosis: Recurrent bladder cancer Procedure: Cystoscopy attempt at bilateral retrograde Surgeon: Dr Severo Blair Anesthesia: LMA Indications for procedure: Known high-grade squamous invasive bladder cancer. Has undergone chemotherapy. Question of Current recurrence Procedure: After informed consent was verified the patient was brought to the operating room and placed in a supine position. Anesthesia was administered per protocol. The patient was placed in modified dorsal lithotomy position and prepped and draped in a sterile fashion. A safety pause time-out was performed. Laterality of procedure and antibiotics were confirmed, appropriate imaging was available A 22 [place] cystoscope was introduced per urethra. No abnormality was noted of urethra or bladder. Unable to find ureteric orifice after 15 minutes of looking. Also has recurrent bladder mucosal changes throughout the bladder. Will need biopsy and fulguration of these areas at a later date The patient tolerated the procedure well and was transferred in a stable condition to the recovery area. Will plan for bilateral PCN followed by stent internalization Pathology: [] Drains: []
[2023-12-28 15:47] VITALS: BP 145/76; PULSE 74; RESP 18; TEMP 36.4; O2SAT 98
== END 2023-12-28 16:25 | disposition home or self-care (01) ==
PROVIDERS: PCP General Practice; Visit Provider Urology
PROC: 0TJB8ZZ Inspection of Bladder, Via Natural or Artificial Opening Endoscopic (ICD-10-PCS; CPT 52000; principal; 2023-12-28 14:00)
DX: C67.8 Malignant neoplasm of overlapping sites of bladder (principal); G89.4 Chronic pain syndrome; N13.30 Unspecified hydronephrosis; I10 Essential (primary) hypertension; E78.5 Hyperlipidemia, unspecified; J43.9 Emphysema, unspecified; J45.909 Unspecified asthma, uncomplicated; Z92.21 Personal history of antineoplastic chemotherapy; Z79.899 Other long term (current) drug therapy; Z88.2 Allergy status to sulfonamides; Z88.6 Allergy status to analgesic agent; Z88.5 Allergy status to narcotic agent; Z87.891 Personal history of nicotine dependence; Z98.890 Other specified postprocedural states
CPT/HCPCS: 52000; C1758; C1769; J0131; J1100; J1956; J2405; J2704; J3010; Q9967

== ENCOUNTER → 2023-12-28 12:00 | Outpatient (BNV) | payer OTHER, SELFPAY | PROVIDERS: PCP General Practice; Visit Provider Urology | DX: C67.8 Malignant neoplasm of overlapping sites of bladder (principal) | CPT/HCPCS: 52000 ==

== ENCOUNTER 2024-01-02 10:46 | Day surgery (SDC) | payer OTHER, SELFPAY ==
[2024-01-02] VITALS (8 sets, daily range): BP systolic 117–154; BP diastolic 68–82; PULSE 71–755; RESP 12–16; TEMP 36.3–36.6; O2SAT 95–97; BMI 17.8
--- NOTE | ~2024-01-02 | IR_ITS ---
EXAMINATION: FLUOROSCOPY NEPHROSTOGRAM CLINICAL INFORMATION: Bladder tumor. Obstructive uropathy COMPARISON: MRI pelvis12/19/23. TECHNIQUE/FINDINGS: Informed consent was obtained following discussion of the risks and benefits of the procedure with the patient utilizing a community health nurse. The patient was placed prone on the fluoroscopy table. The bilateral flanks were sterilely prepped and draped. Preliminary ultrasound demonstrates severe right hydronephrosis and mild-moderate left hydronephrosis. The right kidney was addressed first. Following the administration of 1% lidocaine for local anesthesia, a midlower pole posterior calyx was accessed with a 21-gauge AccuStick needle under direct ultrasound guidance. The needle was exchanged for a triaxial dilator over a 0.018 guidewire. Inner dilator and guidewire were removed and a 0.035 wire was placed. The tract was dilated and an 8.5 Filipino nephrostomy tube was placed. The pigtail was formed in the renal pelvis. Contrast injection demonstrates satisfactory position of the tube. The external portion of the tube was secured with suture and a dressing was applied. The tube was maintained to gravity bag drainage. Then the left kidney was addressed. Following the administration of 1% lidocaine for local anesthesia, a midlower pole posterior calyx was accessed with a 21-gauge AccuStick needle under direct ultrasound guidance. The needle was exchanged for a triaxial dilator over a 0.018 guidewire. Inner dilator and guidewire were removed and a 0.035 wire was placed. The tract was dilated and an 8.5 Filipino nephrostomy tube was placed. The pigtail was formed in the renal pelvis. Contrast injection demonstrates satisfactory position of the tube. The external portion of the tube was secured with suture and a dressing was applied. The tube was maintained to gravity bag drainage. FLUOROSCOPY TIME: 2.5 minutes DOSE AREA PRODUCT: 15 uGy-m2 (microgray-meter squared) IR/IR nephrostomy IMPRESSION: Successful placement of bilateral nephrostomy tubes.
--- NOTE | ~2024-01-02 | IR_ITS ---
EXAMINATION: FLUOROSCOPY NEPHROSTOGRAM CLINICAL INFORMATION: Bladder tumor. Obstructive uropathy COMPARISON: MRI pelvis12/19/23. TECHNIQUE/FINDINGS: Informed consent was obtained following discussion of the risks and benefits of the procedure with the patient utilizing a executive secretary. The patient was placed prone on the fluoroscopy table. The bilateral flanks were sterilely prepped and draped. Preliminary ultrasound demonstrates severe right hydronephrosis and mild-moderate left hydronephrosis. The right kidney was addressed first. Following the administration of 1% lidocaine for local anesthesia, a midlower pole posterior calyx was accessed with a 21-gauge AccuStick needle under direct ultrasound guidance. The needle was exchanged for a triaxial dilator over a 0.018 guidewire. Inner dilator and guidewire were removed and a 0.035 wire was placed. The tract was dilated and an 8.5 Turk[place] nephrostomy tube was placed. The pigtail was formed in the renal pelvis. Contrast injection demonstrates satisfactory position of the tube. The external portion of the tube was secured with suture and a dressing was applied. The tube was maintained to gravity bag drainage. Then the left kidney was addressed. Following the administration of 1% lidocaine for local anesthesia, a midlower pole posterior calyx was accessed with a 21-gauge AccuStick needle under direct ultrasound guidance. The needle was exchanged for a triaxial dilator over a 0.018 guidewire. Inner dilator and guidewire were removed and a 0.035 wire was placed. The tract was dilated and an 8.5 Turkmen nephrostomy tube was placed. The pigtail was formed in the renal pelvis. Contrast injection demonstrates satisfactory position of the tube. The external portion of the tube was secured with suture and a dressing was applied. The tube was maintained to gravity bag drainage. FLUOROSCOPY TIME: 2.5 minutes DOSE AREA PRODUCT: 15 uGy-m2 (microgray-meter squared)
--- NOTE | 2024-01-02 12:56 | MHC.SHP ---
Pre-Procedural Eval Section A - 24 Hr Update-Section A only Date of Service: 01/02/24 Section B - Complete if H&P > 30 days Chief Complaint: RENE,PCN TUBE PLACEMENT,NEOPLASM BLADDER,MALIGNANT Details of Present Illness: 78 y/o female with recurrent bladder cancer and R>L hydronephrosis. Relevant Family History (Specify if Yes): No Relevant Social History: None Present Medications: see Short Stay Collaborative assessment Medical History: Significant History History of Previous Operations: Relevant previous surgery/procedure and date(s) Allergies: Allergies Allergy/AdvReac Type Severity Reaction Status Date / Time aspirin [ASA] Allergy Intermediate RASH Verified 01/02/24 12:16 ibuprofen [Ibuprofen] Allergy Intermediate RASH Verified 01/02/24 12:16 morphine [MORPHINE] Allergy Intermediate ITCHING Verified 01/02/24 12:16 naproxen [From NAPROSYN] Allergy Intermediate RASH,N/V Verified 01/02/24 12:16 oxycodone [OXYCODONE] Allergy Intermediate NAUSEA & Verified 01/02/24 12:16 VOMITING, RASH sulfamethoxazole AdvReac Severe Abdominal Verified 01/02/24 12:16 [From Bactrim] Pain trimethoprim [From Bactrim] AdvReac Severe Abdominal Verified 01/02/24 12:16 Pain Review of Systems Sugical H&P ROS: Negative: Cardiovascular and Respiratory Exam Surgical H&P Exam: Normal: Heart, Normal: Lungs, Normal: Skin and Normal: Neurological and Not Evaluated: HEENT Plan Diagnosis/Plan: Unchanged I have reviewed the history and physical and performed a pertinent physical examination on my patient. No changes have occurred unless specified. Time Spent With Patient Time: Total time managing care of this patient today ____ minutes.
[2024-01-02] MEDS: Acetaminophen 325 MG TABLET 650 MG PO (15:24)
[2024-01-02 15:38] LABS: Creatinine Clr Calc Pharmacy 27.8; Estimated Glomerular Filt Rate 41
== END 2024-01-02 17:00 | disposition home or self-care (01) ==
PROVIDERS: Physician Assistant Surgical; Student in an Organized Health Care Education/Training Program; PCP General Practice; Visit Provider Urology
DX: N13.30 Unspecified hydronephrosis (principal); C67.9 Malignant neoplasm of bladder, unspecified; N13.9 Obstructive and reflux uropathy, unspecified; Z88.2 Allergy status to sulfonamides; Z88.5 Allergy status to narcotic agent; Z88.6 Allergy status to analgesic agent
CPT/HCPCS: 36415; 50432; 82565; 86850; 86900; 86901; 99152; 99153; C1729; C1769; C1887; C1892; C1894; J0696; J2250; J2310; J3010; Q9967

== ENCOUNTER 2024-01-05 09:40 | Outpatient (AMB) | payer OTHER, SELFPAY ==
--- NOTE | 2024-01-05 09:41 | A.OFFVIS_ITS ---
Intake Visit Reasons: Discuss next procedure Allergies aspirin [ASA] Allergy (Intermediate, Verified 01/02/24 12:16) RASH ibuprofen [Ibuprofen] Allergy (Intermediate, Verified 01/02/24 12:16) RASH morphine [MORPHINE] Allergy (Intermediate, Verified 01/02/24 12:16) ITCHING naproxen [From NAPROSYN] Allergy (Intermediate, Verified 01/02/24 12:16) RASH,N/V oxycodone [OXYCODONE] Allergy (Intermediate, Verified 01/02/24 12:16) NAUSEA & VOMITING, RASH sulfamethoxazole [From Bactrim] Adverse Reaction (Severe, Verified 01/02/24 12:16) Abdominal Pain trimethoprim [From Bactrim] Adverse Reaction (Severe, Verified 01/02/24 12:16) Abdominal Pain Medication List - Last Reconciled 01/05/24 by Severo Blair MD albuterol sulfate 90 mcg/actuation 2 puffs inhalation Q4-6H PRN 30 days cholecalciferol (vitamin D3) (Vitamin D3) 50 mcg PO QAM Flovent HFA 110 mcg/actuation (fluticasone propionate) 1 puff inhalation BID NS hydrocortisone 2.5% (Proctosol HC) 1 appl HI BID hydroxyzine HCl 25 mg PO TID ipratropium-albuterol 20-100 mcg/actuation (Combivent Respimat) 1 puff inhalation QID lidocaine-prilocaine 2.5-2.5 % 1 appl topical ONCE linaclotide (Linzess) 145 mcg PO QAM lisinopril 15 mg PO DAILY omeprazole 40 mg PO DAILY ondansetron 8 mg PO Q8H PRN pravastatin 40 mg PO DAILY sennosides-docusate sodium 8.6-50 mg (Senna with Docusate Sodium) 1 tab-cap PO BEDTIME tramadol 50 mg PO Q6H PRN HPI Comments Details: Altaf is a pleasant female. She is a patient of . She seen for the following urologic conditions - recurrent high-grade bladder cancer invasive Telemedicine Evaluation 15 min Consultation Doximity Chalo Video attempted Italian translation provided by qualified adjunct faculty for medical terminology 01/02 Worsening hydronephrosis Creatinine ratio elevate Bilateral PCN placed Plan for stent internalization in operating room Was seen to have changes in bladder on cystoscopy and will need bladder biopsies with fulguration Labs Cr 9/[address] right hydro, left mild hydro Completed neoadjuvant chemotherapy Right PCN placed after presentation for NADEEN - creatinine resolving from 2.9 down to 0.94 - 03/[address] scan with resolution of bladder thickening, right hydronephrosis. 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 The bladder is partially distended with irregular wall thickening and trabeculated appearance. Dilated appearance of both distal ureters. Moderate right hydronephrosis. Mild left hydronephrosis. No lymphadenopathy. Bladder cancer superficial high-grade 2018 - disease progression - 12/01 muscle invasive bladder cancer Initial diagnosis with Dr. Hankins TURBT 05/30 high-grade superficial noninvasive disease Adjuvant therapy BCG June 2019 Surveillance cystoscopy - 04/30 NAD, 10/01 NAD, 10/02 NAD - trabeculated bladder with BCG change PFSH Medical History Chronic pain syndrome Osteoarthritis GERD (gastroesophageal reflux disease) History of COVID- Emphysema lung Hyperlipidemia Hypertension Asthma Hemorrhoids with complication UTI (urinary tract infection) Malignant neoplasm of urinary bladder Bladder mass Surgical History History of surgery History of ERCP Hx laparoscopic cholecystectomy Hx of cystoscopy History of hysterectomy with bilateral oophorectomy Hx of colonoscopy (01/17/19) History of esophagogastroduodenoscopy (EGD) Family History Father No problems noted. Mother Diabetes Brother Lung cancer Daughter Diabetes Social History Household Members: Family Housing: Apartment Do you presently have visiting nurse or other home services: Yes Alcohol intake: never Patient Tobacco Use Status: Former Tobacco user Quit Date: 7 yrs ago Years Smoked: 56 service: No Current occupational status: retired Current occupation: rt handed Review of Systems Const All systems reviewed & are unremarkable except as noted in HPI and below Reports no additional complaints Resp Reports no additional complaints GI Reports no additional complaints Reports as per HPI Musc Reports no additional complaints Physical Exam Telemedicine evaluation Appropriate responses Regular breathing rate and rhythm HEENT Head: Yes normal to inspection Ears: hearing grossly normal bilaterally Eyes General: appearance normal, both eyes and all related structures Neck Neck: Yes normal visual inspection Chest Chest palpation & inspection: normal inspection of the chest Resp Effort & Inspection: normal respiratory effort and able to speak in complete sentences Telehealth Telehealth Location of provider rendering services: practice address Location of patient: address on file Patient Identification confirmed using: Name, : Yes Telehealth method: video Patient verbally consented to treatment: Yes Patient verbally consented to billing insurance company: Yes Patient informed of any privacy concerns related to visit: Yes Assessment & Plan Assessment & Plan (1) Bladder cancer: Comment: Progressive high-grade urothelial carcinoma 12/01 muscle invasive with squamous differentiation Code(s): C67.9 - Malignant neoplasm of bladder, unspecified Category: Medical Qualifiers: Bladder location: overlapping sites Qualified Code(s): C67.8 - Malignant neoplasm of overlapping sites of bladder (2) Hydronephrosis: Code(s): N13.30 - Unspecified hydronephrosis Category: Medical Plan Risks, benefits and alternatives to therapy were discussed. These include but are not limited to infection, bleeding, damage to local organs and tissues, need for further interventions. Anesthetic risks regarding cardiac arrhythmia, blood clots, and potential mortality were discussed. The patient understands the typical recovery time and the outpatient nature of the procedure. After consideration of these risks the patient gives full informed consent and they wish to move ahead with the procedure. Cystoscopy, bladder biopsy, fulguration, antegrade nephrostogram with stent internalization bilateral Patient Instructions: Imaging studies, laboratory and physical exam results were discussed and revie wed in detail. No major barriers to patient understanding were identified. An opportunity to ask questions regarding the treatment plan was provided. All questions were answered. The patient expressed understanding and agreement with the above treatment plan. The patient is aware they should contact our office by phone for worsening of their current condition or the appearance of new urologic symptoms. Compliance is encouraged with any medications and followup testing that is ordered. It is a privilege to participate in the urologic care of your patient. If you have any questions or concerns regarding treatment for the above conditions, or other urologic issues, please do not hesitate to contact me. The office telephone contact is [phone]. This note is constructed using voice recognition software. While every effort has been made to ensure accuracy chain person errors may have been included. Yours sincerely, Dr Severo Blair MD, [facility] - Urology Providers of Expert, Compassionate Care for the Genitourinary System Coding Level of Care Code Tele Est Pt Level 4 (77547) Complex EM visit Add On G2211 Diagnoses Malignant neoplasm of overlapping sites of bladder C67.8 Bladder location: overlapping sites Hydronephrosis N13.30
== END 2024-01-05 10:01 | disposition home or self-care (01) ==
LOC: HO.HUSH 09:40
PROVIDERS: PCP General Practice; Visit Provider Urology
DX: C67.8 Malignant neoplasm of overlapping sites of bladder (principal); N13.30 Unspecified hydronephrosis
CPT/HCPCS: 99214; G2211

== ENCOUNTER → 2024-01-05 09:40 | Outpatient (BNVA) | payer OTHER, SELFPAY | PROVIDERS: PCP General Practice; Visit Provider Urology ==

== ENCOUNTER 2024-01-09 13:49 | Emergency (ER) | payer OTHER, SELFPAY ==
[2024-01-09 14:26] VITALS: BP 106/68; PULSE 102; RESP 18; TEMP 36.2; O2SAT 98; BMI 18.5
--- NOTE | 2024-01-09 14:27 | ED_ITS ---
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 Patient was seen by her PCP and referred to the emergency department for evaluation. Patient states she gets similar sore throats 2 times a year and is treated with nystatin swish and swallow 5 mL 3 times a day for 1 week. She denied fever, chills, cough, chest pain, shortness of breath. She states she has nausea with occasional vomiting but she attributes this to the bladder cancer. She denied diarrhea. She denied myalgias arthralgias. Related Data Home Medications ?Medication ?Instructions ?Recorded ?Confirmed lisinopril 10 mg tablet 15 mg PO DAILY 03/09/22 01/05/24 cholecalciferol (vitamin D3) 25 50 mcg PO QAM 12/16/22 01/05/24 mcg (1,000 unit) chewable tablet (Vitamin D3) ipratropium 20 mcg-albuterol 100 1 puff inhalation QID 12/28/22 01/05/24 mcg/actuation mist for inhalation (Combivent Respimat) pravastatin 40 mg tablet 40 mg PO DAILY 12/28/22 01/05/24 Previous Rx's ?Medication ?Instructions ?Recorded hydrocortisone 2.5 % topical cream 1 appl NE BID hemorrhoids #30 grams 12/16/22 with perineal applicator (Proctosol HC) sennosides 8.6 mg-docusate sodium 1 tab-cap PO BEDTIME #30 tabs 01/16/23 50 mg tablet (Senna with Docusate Sodium) linaclotide 145 mcg capsule 145 mcg PO QAM #30 caps 07/11/23 (Linzess) hydroxyzine HCl 25 mg tablet 25 mg PO TID #50 tabs 07/13/23 Flovent HFA 110 mcg/actuation 1 puff inhalation BID #12 grams 08/07/23 aerosol inhaler (fluticasone propionate) lidocaine-prilocaine 2.5 %-2.5 % 1 appl topical ONCE pain #30 grams 09/14/23 topical cream albuterol sulfate 90 mcg/actuation 2 puff inhalation Q4-6H PRN 11/02/23 aerosol inhaler shortness of breath or wheezing 30 days #1 ea ondansetron 8 mg disintegrating 8 mg PO Q8H PRN Nausea #30 tabs 12/20/23 tablet tramadol 50 mg tablet 50 mg PO Q6H PRN Pain #60 tabs 12/20/23 omeprazole 40 mg capsule,delayed 40 mg PO DAILY #30 caps 12/28/23 release nystatin 100,000 unit/mL oral 500,000 unit (5 mL) PO TID 2 weeks 01/09/24 suspension #210 mL Allergies Allergy/AdvReac Type Severity Reaction Status Date / Time aspirin [ASA] Allergy Intermediate RASH Verified 01/09/24 14:30 ibuprofen [Ibuprofen] Allergy Intermediate RASH Verified 01/09/24 14:30 morphine [MORPHINE] Allergy Intermediate ITCHING Verified 01/09/24 14:30 naproxen [From NAPROSYN] Allergy Intermediate RASH,N/V Verified 01/09/24 14:30 oxycodone [OXYCODONE] Allergy Intermediate NAUSEA & Verified 01/09/24 14:30 VOMITING, RASH sulfamethoxazole AdvReac Severe Abdominal Verified 01/09/24 14:30 [From Bactrim] Pain trimethoprim [From Bactrim] AdvReac Severe Abdominal Verified 01/09/24 14:30 Pain Review of Systems 2 Review of Systems: Yes all other systems are reviewed and are negative [facility] Past Medical History [facility] Narrative: Social history: She lives with her who is here in the emergency department with her. She denies tobacco, alcohol and drug use. Medical History Chronic pain syndrome Osteoarthritis GERD (gastroesophageal reflux disease) History of COVID-19 Emphysema lung Hyperlipidemia Hypertension Asthma Hemorrhoids with complication UTI (urinary tract infection) Malignant neoplasm of urinary bladder Bladder mass Surgical History History of surgery History of ERCP Hx laparoscopic cholecystectomy Hx of cystoscopy History of hysterectomy with bilateral oophorectomy Hx of colonoscopy (01/17/19) History of esophagogastroduodenoscopy (EGD) Family History Family History Father No problems noted. Mother Diabetes Brother Lung cancer Daughter Diabetes Social History Social History Household Members: Family Housing: Apartment Do you presently have visiting nurse or other home services: Yes Alcohol intake: never Patient Tobacco Use Status: Former Tobacco user Quit Date: 7 yrs ago Years Smoked: 55 Use of substances other than those prescribed or required for medical reasons: No Have you been hit, kicked, punched, or otherwise hurt by someone within the past year? If so, by whom?: No Do you feel safe in your current relationship?: Yes Do you have thoughts of harming others: None Do you have a plan to hurt others: No Plan Do you have the means to hurt others: No Recently lost weight without trying: Yes How much weight loss: 2-13 pounds Eating poorly because of decreased appetite: Yes Nutrition screen score: 4 service: No Current occupational status: retired Current occupation: rt handed Physical Exam ED Vital Signs: Vital Signs - 24 hr 01/09/24 14:26 01/09/24 20:40 Temperature 97.1 F 97.9 F Pulse Rate 102 H 94 Respiratory Rate 18 18 Blood Pressure 106/68 115/70 Pulse Oximetry 98 97 Oxygen Delivery Method Room Air Room Air BMI result Body Mass Index 18.5 Vital signs revealed an elevated heart rate of 102 otherwise unremarkable Exam: General: Awake, alert in no distress, very thin, BMI of 18.5 Head: Normocephalic, atraumatic EENT: Mouth revealed moist membranes, she has white and red plaques on her posterior pharynx and tongue consistent with thrush, pupils were equal round reactive light, sclera contact however normal Neck: Supple, no adenopathy Lung: breath sounds symmetric, no wheezing, rales or rhonchi Chest: symmetric movement, nontender Heart: regular rate and rhythm, normal S1, S2 no murmurs or rubs Abdomen: soft, mild to moderate suprapubic tenderness, nondistended, normal bowel sounds Back: no vertebral tenderness, no CVAT Extremities: no deformities, moves all extremities symmetrically Neuro: Awake, alert, oriented, normal speech, moves all extremities symmetrically Psych: Pleasant, cooperative Course Course Course Narrative: This is a rapid medical exam completed by Karmen EDWARDS: Additional HPI, ROS, PE not included below will be deferred to primary provider. 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 Patient was seen here 2 PCPs office and had a negative rapid strep and negative COVID-19 test. Vital signs did reveal elevated pulse of 102. Patient's mouth exam is consistent with thrush. Differential diagnosis: ?Includes but is not limited to viral pharyngitis, streptococcal pharyngitis, thrush, anemia, electrolyte abnormalities, renal failure Following evaluation was ordered: CBC, CMP Course: 21:56 My independent interpretation patient's laboratory evaluation as follows: CBC was normal with a WBC of 8800, H&H of 13 and 40.6. BUN is elevated at 33-this is chronic. Creatinine is normal 1.27. LFTs were normal. Patient's presentation and findings are consistent with thrush. Patient was started on nystatin swish and swallow 5 mL 3 times a day for 1 week, she was given 1 refill. She was given printed and verbal instructions and discharged home. Admission/Observation Consideration of admission/observation: Escalation of care including admission/observation considered Lab Data [facility] Lab Attestation statement: I reviewed the patient's lab results. 01/09/24 17:32 01/09/24 17:32 Labs: Lab Results 01/09/24 Range/Units 17:32 WBC 8.8 (4.8-10.8) X10*3/uL RBC 4.57 (4.20-5.50) X10*6/uL Hgb 13.2 (12.0-16.0) g/dl Hct 40.6 (37.0-47.0) % MCV 88.8 (80.0-98.0) fL MCH 28.9 (27.0-33.0) pg MCHC 32.5 (31.0-35.0) g/dl RDW 14.1 (11.0-16.0) % Plt Count 356 (160-400) X10*3/uL MPV 9.8 (9.4-12.3) fL Immature Gran % (Auto) 0.3 (0.0-0.4) % Neut % (Auto) 61.4 (45-73) % Lymph % (Auto) 23.3 (20-40) % [place] % (Auto) 10.7 (2-11) % Eos % (Auto) 4.1 H (0-4) % Baso % (Auto) 0.2 (0-2) % Lymph # (Auto) 2.1 (1.2-4.9) X10*3/uL [place] # (Auto) 0.9 (0.1-1.2) X10*3/uL Eos # (Auto) 0.4 (0.0-0.4) X10*3/uL Baso # (Auto) 0.0 (0.0-0.2) X10*3/uL Abs Immat Gran (auto) 0.03 (0.00-0.03) X10*3/uL Absolute Neuts (auto) 5.4 (2.0-8.3) x10*3/uL Absolute Nucleated RBC 0.000 (0.0-0.012) X10*3/uL Nucleated RBC % (auto) 0.0 (0.0-0.2) /100WBC Sodium 140 (135-145) mmol/L Potassium 4.8 (3.3-5.1) mmol/L Chloride 104 (96-108) mmol/L Carbon Dioxide 27 (22-29) mmol/L Anion Gap 14 (12-20) BUN 33 H (9-16) mg/dL Creatinine 1.27 (0.5-1.4) mg/dL Estim Creat Clear Calc 28.6 Estimated GFR 41 Random Glucose 99 (60-115) mg/dL Calcium 9.5 (8.4-10.2) mg/dL Total Bilirubin 0.5 (0.0-1.0) mg/dL AST 23 (5-31) U/L ALT 18 (0-31) U/L Alkaline Phosphatase 82 (39-117) U/L Total Protein 6.6 (6.5-8.0) g/dL Albumin 3.7 (3.5-5.0) g/dL Independent Historian Clinical information obtained from an independent historian. History obtained from or confirmed by: Spouse External Record Review External record reviewed: Inpatient record and Outpatient record Prescription Management I considered prescription management with: Other (Nystatin swish and swallow) Chronic Conditions Patient?s care impacted by: Cancer (Bladder) Discharge Plan Discharge Clinical Impression: Candidiasis of mouth Patient Disposition: Home, Self-Care Instructions: Oral Candidiasis (ED) Additional Instructions: Take nystatin 5 mL, swish and swallow 3 times a day for 1 week. Follow-up with your doctor in 2 days. Please return to the emergency department if your symptoms get worse or if you develop any symptoms that are concerning to you. Prescriptions: New nystatin 100,000 unit/mL suspension 500,000 unit PO TID 14 Days Qty: 210 0RF Rx Instructions: administer 1/2 of dose in each side of the mouth No Action Flovent HFA 110 mcg/actuation HFA aerosol inhaler 1 puff inhalation BID Qty: 12 3RF lidocaine-prilocaine 2.5-2.5 % cream 1 appl topical ONCE Qty: 30 3RF Rx Instructions: Apply to both feet 15-30 min prior to Qutenza application on 09/15/23 albuterol sulfate 90 mcg/actuation HFA aerosol inhaler 2 puff inhalation Q4-6H PRN (Reason: shortness of breath or wheezing) 30 Days Qty: 1 6RF omeprazole 40 mg capsule,delayed release(DR/EC) 40 mg PO DAILY Qty: 30 2RF sennosides-docusate sodium [Senna with Docusate Sodium] 8.6-50 mg Tablet 1 tab-cap PO BEDTIME Qty: 30 3RF hydroxyzine HCl 25 mg Tablet 25 mg PO TID Qty: 50 4RF tramadol 50 mg Tablet 50 mg PO Q6H PRN (Reason: Pain) Qty: 60 0RF ondansetron 8 mg Tablet,Disintegrating 8 mg PO Q8H PRN (Reason: Nausea) Qty: 30 3RF pravastatin 40 mg tablet 40 mg PO DAILY Combivent Respimat 20-100 mcg/actuation mist 1 puff INHALATION QID lisinopril 10 mg tablet 15 mg PO DAILY cholecalciferol (vitamin D3) [Vitamin D3] 25 mcg (1,000 unit) tablet,chewable 50 mcg PO QAM hydrocortisone [Proctosol HC] 2.5 % cream with perineal applicator 1 appl NE BID Qty: 30 6RF Rx Instructions: BE SURE TO INCLUDE RECTAL APPICATOR!! Linzess 145 mcg capsule 145 mcg PO QAM Qty: 30 6RF Interventions: ED Discharge Assessment Last Done: 01/09/24 22:34 Discharge Date/Time: 01/09/24 22:35 Print Language: Upper Sorbian
[2024-01-09 17:41] LABS: MANUAL DIFF FLAG NO
[2024-01-09 17:44] LABS: Basophils Percent Auto 0.2 % (0-2); Eosinophils Absolute Auto 0.4 X10*3/uL (0.0-0.4); Eosinophils Percent Auto 4.1 % (0-4); Hematocrit 40.6 % (37.0-47.0); Hemoglobin 13.2 g/dl (12.0-16.0); Imm Gran Abs Auto 0.03 X10*3/uL (0.00-0.03); Imm Gran Pct Auto 0.3 % (0.0-0.4); Lymphocytes Absolute Auto 2.1 X10*3/uL (1.2-4.9); Lymphocytes Percent Auto 23.3 % (20-40); Mean Corpuscular HGB Conc 32.5 g/dl (31.0-35.0); Mean Corpuscular Hemoglobin 28.9 pg (27.0-33.0); Mean Corpuscular Volume 88.8 fL (80.0-98.0); Mean Platelet Volume 9.8 fL (9.4-12.3); Monocytes Absolute Auto 0.9 X10*3/uL (0.1-1.2); Monocytes Percent Auto 10.7 % (2-11); Neutrophils Absolute Auto 5.4 x10*3/uL (2.0-8.3); Neutrophils Percent Auto 61.4 % (45-73); Platelet Count 356 X10*3/uL (160-400); Red Blood Count 4.57 X10*6/uL (4.20-5.50); Red Cell Distribution Width 14.1 % (11.0-16.0); White Blood Count 8.8 X10*3/uL (4.8-10.8)
[2024-01-09 17:57] LABS: Alanine Aminotransferase 18 U/L (0-31); Albumin Level 3.7 g/dL (3.5-5.0); Alkaline Phosphatase 82 U/L (39-117); Anion Gap 14 (12-20); Aspartate Amino Transferase 23 U/L (5-31); Bilirubin Total 0.5 mg/dL (0.0-1.0); Blood Urea Nitrogen 33 mg/dL (9-16); Calcium 9.5 mg/dL (8.4-10.2); Carbon Dioxide 27 mmol/L (22-29); Chloride 104 mmol/L (96-108); Creatinine Clr Calc Pharmacy 28.6; Estimated Glomerular Filt Rate 41; Glucose Random 99 mg/dL (60-115); Potassium 4.8 mmol/L (3.3-5.1); Sodium 140 mmol/L (135-145); Total Protein 6.6 g/dL (6.5-8.0)
[2024-01-09 20:40] VITALS: BP 115/70; PULSE 94; RESP 18; TEMP 36.6; O2SAT 97
[2024-01-09 22:34] VITALS: BP 115/70; PULSE 84; RESP 18; TEMP 36.6; O2SAT 97
== END 2024-01-09 22:35 | disposition home or self-care (01) ==
PROVIDERS: Nurse Practitioner Family; Emergency Provider Emergency Medicine Emergency Medical Services; PCP General Practice
DX: B37.0 Candidal stomatitis (principal); I10 Essential (primary) hypertension; C67.9 Malignant neoplasm of bladder, unspecified; Z79.899 Other long term (current) drug therapy; Z93.6 Other artificial openings of urinary tract status
CPT/HCPCS: 36415; 80053; 85025; 99283; 99284

== ENCOUNTER 2024-01-15 07:13 | Day surgery (SDC) | payer OTHER, SELFPAY ==
--- NOTE | 2024-01-12 10:06 | P.CONAN_ITS ---
Documented by User: Mitzi Kat NP 01/12/24 10:10 HPI - Anesthesia Eval Consult details Narrative: 78yo F for Cystoscopy Bladder Fulguration, with bladder biopsy,antigrade nephrostogram,with stent internalization,bilateral [facility] ED 01/09/24 with thrush - rx nystatin swish and swallow s/p cysto 12/28/23 with GA-LMA 3 Bladder cancer with weekly chemo PMFSH Active Problems Active Problems: All Active Problems Lumbar spinal stenosis (Acute) Chronic pain syndrome (Acute) Encounter for preoperative pulmonary examination (Acute) Ischial bursitis (Acute) Lumbar spondylosis (Acute) Levoscoliosis of lumbar spine (Acute) Lumbar degenerative disc disease (Acute) Peripheral neuropathy (Acute) Hematuria (Acute) Acute UTI (Acute) NADEEN (acute kidney injury) (Acute) 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 (Acute) Encounter for preoperative pulmonary examination (Acute) Hydronephrosis (Acute) Candidal urinary tract infection (Acute) Bladder cancer (Chronic) Malignant neoplasm of bladder neck (Acute) Vaginal mass (Acute) COVID-19 (Acute) UTI (urinary tract infection) (Acute) Sepsis (Acute) Bladder mass (Acute) Hematuria (Acute) H/O primary malignant neoplasm of urinary bladder (Acute) Osteoarthritis of shoulders, bilateral (Acute) Vaginal pain (Acute) Back pain (Acute) Recurrent cough (Acute) Dysuria (Acute) Primary osteoarthritis, left shoulder (Acute) Small intestinal bacterial overgrowth (Acute) Bronchitis (Acute) Abdominal cramping (Acute) Lumbar radiculopathy (Chronic) Hemorrhoids with complication (Acute) Right-sided ischial pain (Acute) Environmental allergies (Acute) Cough (Acute) Gastroesophageal reflux disease (Acute) Moderate persistent allergic asthma (Acute) Trochanteric bursitis, right hip (Acute) Nausea and vomiting (Acute) Chronic idiopathic constipation (Acute) Low back pain due to bilateral sciatica (Acute) Tendonitis of left rotator cuff (Acute) Trochanteric bursitis of left hip (Acute) Hemorrhoids with complication (Acute) Malignant neoplasm of urinary bladder (Acute) UTI (urinary tract infection) (Acute) Past Medical History Medical History Chronic pain syndrome Osteoarthritis GERD (gastroesophageal reflux disease) History of COVID-19 Emphysema lung Hyperlipidemia Hypertension Asthma Hemorrhoids with complication UTI (urinary tract infection) Malignant neoplasm of urinary bladder Bladder mass Family History Family History Father No problems noted. Mother Diabetes Brother Lung cancer Daughter Diabetes Family history of problems with anesthesia: No Surgical History Surgical History History of surgery History of ERCP Hx laparoscopic cholecystectomy Hx of cystoscopy History of hysterectomy with bilateral oophorectomy Hx of colonoscopy (01/17/19) History of esophagogastroduodenoscopy (EGD) History of Problems with Anesthesia: No Social History Social History Household Members: Family Housing: Apartment Do you presently have visiting nurse or other home services: Yes Alcohol intake: never Patient Tobacco Use Status: Former Tobacco user Quit Date: 17 yrs ago Years Smoked: 55 Use of substances other than those prescribed or required for medical reasons: No Are you DNR?: No Advance Directives: No Advance Directives Information Provided: Yes service: No Current occupational status: retired Current occupation: rt handed Meds Allergies Allergy/AdvReac Type Severity Reaction Status Date / Time aspirin [ASA] Allergy Intermediate RASH Verified 01/15/24 08:14 ibuprofen [Ibuprofen] Allergy Intermediate RASH Verified 01/15/24 08:14 morphine [MORPHINE] Allergy Intermediate ITCHING Verified 01/15/24 08:14 naproxen [From NAPROSYN] Allergy Intermediate RASH,N/V Verified 01/15/24 08:14 oxycodone [OXYCODONE] Allergy Intermediate NAUSEA & Verified 01/15/24 08:14 VOMITING, RASH sulfamethoxazole AdvReac Severe Abdominal Verified 01/15/24 08:14 [From Bactrim] Pain trimethoprim [From Bactrim] AdvReac Severe Abdominal Verified 01/15/24 08:14 Pain Home Medications ?Medication ?Instructions ?Recorded ?Confirmed ?Last Taken ?Type lisinopril 10 mg tablet 15 mg PO DAILY 03/09/22 01/05/24 01/01/24 History cholecalciferol (vitamin D3) 25 50 mcg PO QAM 12/16/22 01/05/24 01/01/24 History mcg (1,000 unit) chewable tablet (Vitamin D3) ipratropium 20 mcg-albuterol 100 1 puff inhalation QID 12/28/22 01/05/24 12/28/23 07:30 History mcg/actuation mist for inhalation (Combivent Respimat) pravastatin 40 mg tablet 40 mg PO DAILY 12/28/22 01/05/24 01/01/24 History Exam Pertinent Lab Results Pertinent Lab Results: Laboratory Tests 01/09/24 17:32 WBC 8.8 Hgb 13.2 Hct 40.6 Plt Count 356 Sodium 140 Potassium 4.8 Chloride 104 Carbon Dioxide 27 BUN 33 H Creatinine 1.27 Assessment and Plan Assessment Anesthesia Assessment: Chart Reviewed Final Anesthetic Review Family History of Problems with Anesthesia: No History of Problems with Anesthesia: No Documented by User: Kaelyn Ellis MD 01/15/24 08:31 [facility] Past Medical History Medical History Chronic pain syndrome Osteoarthritis GERD (gastroesophageal reflux disease) History of COVID-19 Emphysema lung Hyperlipidemia Hypertension Asthma Hemorrhoids with complication UTI (urinary tract infection) Malignant neoplasm of urinary bladder Bladder mass Family History Family History Father No problems noted. Mother Diabetes Brother Lung cancer Daughter Diabetes Surgical History Surgical History History of surgery History of ERCP Hx laparoscopic cholecystectomy Hx of cystoscopy History of hysterectomy with bilateral oophorectomy Hx of colonoscopy (01/17/19) History of esophagogastroduodenoscopy (EGD) Social History Social History Household Members: Family Housing: Apartment Do you presently have visiting nurse or other home services: Yes Alcohol intake: never Patient Tobacco Use Status: Former Tobacco user Quit Date: 17 yrs ago Years Smoked: 55 Use of substances other than those prescribed or required for medical reasons: No Are you DNR?: No Advance Directives: No Advance Directives Information Provided: Yes service: No Current occupational status: retired Current occupation: rt handed Meds Allergies Allergy/AdvReac Type Severity Reaction Status Date / Time aspirin [ASA] Allergy Intermediate RASH Verified 01/15/24 08:14 ibuprofen [Ibuprofen] Allergy Intermediate RASH Verified 01/15/24 08:14 morphine [MORPHINE] Allergy Intermediate ITCHING Verified 01/15/24 08:14 naproxen [From NAPROSYN] Allergy Intermediate RASH,N/V Verified 01/15/24 08:14 oxycodone [OXYCODONE] Allergy Intermediate NAUSEA & Verified 01/15/24 08:14 VOMITING, RASH sulfamethoxazole AdvReac Severe Abdominal Verified 01/15/24 08:14 [From Bactrim] Pain trimethoprim [From Bactrim] AdvReac Severe Abdominal Verified 01/15/24 08:14 Pain Home Medications ?Medication ?Instructions ?Recorded ?Confirmed ?Last Taken ?Type lisinopril 10 mg tablet 15 mg PO DAILY 03/09/22 01/05/24 01/01/24 History cholecalciferol (vitamin D3) 25 50 mcg PO QAM 12/16/22 01/05/24 01/01/24 History mcg (1,000 unit) chewable tablet (Vitamin D3) ipratropium 20 mcg-albuterol 100 1 puff inhalation QID 12/28/22 01/05/24 12/28/23 07:30 History mcg/actuation mist for inhalation (Combivent Respimat) pravastatin 40 mg tablet 40 mg PO DAILY 12/28/22 01/05/24 01/01/24 History Exam Airway Mallampati Class: III (globally poor dentition) TM Dist: >3cm Neck ROM: Full Loose/Missing/Broken Teeth: Yes, Upper and Lower Heart: RRR Lungs: CTA Assessment and Plan Assessment Anesthesia Assessment: Anesthesia Plan Discussed Final Anesthetic Review NPO: Yes ASA Class: III Final Preanesthetic Review: Meds/Allgs Chart Reviewed, Consent Obtained/Reviewed and Anes Risks/Benef Reviewed Patient Risk: Intermediate Procedure Risk: Low Anesthetic Plan Anesthetic Plan: GA Disposition: Standard PACU
[2024-01-15] VITALS (11 sets, daily range): BP systolic 111–148; BP diastolic 63–91; PULSE 77–98; RESP 14–18; TEMP 36.4; O2SAT 96–100; BMI 18.5
--- NOTE | ~2024-01-15 | FL_ITS ---
EXAMINATION: XR FLUOROSCOPY WITH IMAGES CLINICAL INFORMATION: Bilateral nephrostomy removal, bilateral stent placement COMPARISON: 12/28/2023, 01/02/2024 TECHNIQUE: Fluoroscopy Supervised By: Dr. Blair Fluoroscopy Time: 133.8 seconds. Cumulative Dose: 22.49 mGy. DAP: Not available on the machine used Images: 8. FINDINGS: Fluoroscopic guidance was provided for bilateral nephrostomy removal, bilateral stent placement. Please see Dr. Blair's procedure note for full details. FL/FL guidance in OR IMPRESSION: Fluoroscopic guidance was provided for bilateral nephrostomy removal, bilateral stent placement. Please see Dr. Blair's Procedure note for full details.
[2024-01-15] MEDS: Lactated Ringers 1,000 ML 100 ML IVCONT (08:43)
--- NOTE | 2024-01-15 09:47 | MHC.SHP ---
Pre-Procedural Eval Section A - 24 Hr Update-Section A only Date of Service: 01/15/24 The patient is an INPATIENT: No Changes since office visit: No Cold of Flu in the past 2 weeks, No New Medical Problems, No Changes in Medication and No Patient answered all questions The patient has been examined within 24 hours of the surgical procedure. The History & Physical has been completed within 30 days and I have reviewed it.: Yes Section B - Complete if H&P > 30 days Chief Complaint: Malignant neoplasm of bladder, unspecified Allergies: Allergies Allergy/AdvReac Type Severity Reaction Status Date / Time aspirin [ASA] Allergy Intermediate RASH Verified 01/15/24 08:14 ibuprofen [Ibuprofen] Allergy Intermediate RASH Verified 01/15/24 08:14 morphine [MORPHINE] Allergy Intermediate ITCHING Verified 01/15/24 08:14 naproxen [From NAPROSYN] Allergy Intermediate RASH,N/V Verified 01/15/24 08:14 oxycodone [OXYCODONE] Allergy Intermediate NAUSEA & Verified 01/15/24 08:14 VOMITING, RASH sulfamethoxazole AdvReac Severe Abdominal Verified 01/15/24 08:14 [From Bactrim] Pain trimethoprim [From Bactrim] AdvReac Severe Abdominal Verified 01/15/24 08:14 Pain Plan Diagnosis/Plan: Unchanged (Cystoscopy, exchange antegrade nephrostomy tubes for stents bilateral, bladder biopsy with extensive fulguration) I have reviewed the history and physical and performed a pertinent physical examination on my patient. No changes have occurred unless specified. Time Spent With Patient Time: Total time managing care of this patient today ____ minutes.
--- NOTE | 2024-01-15 11:32 | P.OP_ITS ---
Operative Note Operative Note Date of Service: 01/15/24 Narrative: PreOperative Diagnosis: bladder cancer with bilateral nephrostomy tubes Post Operative Diagnosis: Recurrent multi site bladder cancer with bilateral nephrostomy tubes Procedure: Cystoscopy - left antegrade nephrostogram with antegrade wire placement - cystoscopy with left stent placement - right antegrade nephrostogram with antegrade wire placement - cystoscopy with right stent placement - TURBT large greater than 4 cm in fulguration - multi site fulguration Surgeon: Dr Severo Blair Anesthesia: LMA Indications for procedure: Recurrent invasive bladder cancer. Bilateral indwelling stents. Here for internalization of indwelling stents and to address bladder recurrent lesion Procedure: After informed consent was verified the patient was brought to the operating room and placed in a supine position. Anesthesia was administered per protocol. The patient was placed in modified dorsal lithotomy position and prepped and draped in a sterile fashion. Safety pause time-out was performed. Antibiotics being given. Cystoscopy was performed. Recurrent lesion seen on posterior wall of bladder and right anterior bladder wall. Lesions appearing around urethra in right aspect. Fluoroscopy shows bilateral nephrostogram in place. The left nephrostomy tube was exposed. The attaching suture was cut. A left antegrade nephrostogram was performed showing good flow into the ureter. An angled Glidewire was then placed through the nephrostomy tube and navigated down the ureter into the bladder under fluoroscopy. At this point the nephrostomy tube was removed leaving the Glidewire exiting from the nephrostomy incision. Cystoscopy was performed. The wire was grasped and brought out of the bladder. The cystoscope was backloaded and a 6 Citizen [place] by 22 cm double-J stent was placed on the left side under fluoroscopic guidance. The Glidewire was removed thus i nternalizing the left stent. A similar procedure was repeated on the right side The right nephrostomy tube was exposed. The attaching suture was cut. A lef right t antegrade nephrostogram was performed showing good flow into the ureter. An angled Glidewire was then placed through the nephrostomy tube and navigated down the ureter into the bladder under fluoroscopy. At this point the nephro stomy tube was removed leaving the Glidewire exiting from the nephrostomy incision. Cystoscopy was performed. The wire was grasped and brought out of the bladder. The cystoscope was backloaded and a 6 [place] by 22 cm double-J stent was placed on the left side under fluoroscopic guidance. The Glidewire was removed thus internalizing the right stent. At this point the recurrent bladder cancer could be seen. Using a resectoscope a 4 cm lesion was resected from the right anterior wall. Areas in the posterior wall were biopsied and fulgurated. Areas around the bladder neck were fulgurat ed. At the completion of the procedure the bladder was irrigated free of debris. This will be sent as specimen. A 16 [place] Kelly catheter was placed to allow drainage. The patient tolerated the procedure well. They were extubated in operating room and transferred in stable conditions recovery area. Pathology: Bladder cancer Drains: None
[2024-01-15] MEDS: fentaNYL citrate/PF 100 MCG/2 ML VIAL 25 MCG IVPUSH ×2 (12:08→12:13)
[2024-01-15] MEDS: traMADoL HCL 50 MG TABLET PO (13:00)
== END 2024-01-15 13:54 | disposition home or self-care (01) ==
PROVIDERS: PCP General Practice; Visit Provider Urology
PROC: 0T5B8ZZ Destruction of Bladder, Via Natural or Artificial Opening Endoscopic (ICD-10-PCS; CPT 52235; principal; 2024-01-15 09:10)
DX: C67.8 Malignant neoplasm of overlapping sites of bladder (principal); N13.30 Unspecified hydronephrosis; Z93.6 Other artificial openings of urinary tract status; G89.4 Chronic pain syndrome; J43.9 Emphysema, unspecified; J45.909 Unspecified asthma, uncomplicated; I10 Essential (primary) hypertension; E78.5 Hyperlipidemia, unspecified; M19.90 Unspecified osteoarthritis, unspecified site; Z79.51 Long term (current) use of inhaled steroids; Z79.899 Other long term (current) drug therapy; Z88.8 Allergy status to other drugs, medicaments and biological substances; Z88.6 Allergy status to analgesic agent; Z88.5 Allergy status to narcotic agent; Z88.2 Allergy status to sulfonamides; Z98.890 Other specified postprocedural states; Z87.891 Personal history of nicotine dependence
CPT/HCPCS: 52235; 52332; 50431; 88305; 88307; C1769; C2617; J1100; J1956; J2704; J3010; Q9967

== ENCOUNTER → 2024-01-15 07:13 | Outpatient (BNV) | payer OTHER, SELFPAY | PROVIDERS: PCP General Practice; Visit Provider Urology | DX: C67.9 Malignant neoplasm of bladder, unspecified (principal); Z93.6 Other artificial openings of urinary tract status | CPT/HCPCS: 50431; 52235 ==

== ENCOUNTER → 2024-01-19 11:05 | Outpatient (BNVA) | payer OTHER, SELFPAY | PROVIDERS: PCP General Practice; Visit Provider Urology ==

== ENCOUNTER 2024-01-23 08:48 | Outpatient (AMB) | payer OTHER, SELFPAY ==
[2024-01-23 09:01] VITALS: BP 104/58; PULSE 98; O2SAT 96; BMI 18.5
--- NOTE | 2024-01-23 09:01 | A.OFFVIS_ITS ---
Vital Signs 01/23/24 09:01 Height 5 ft 4 in Weight 108 lb 0.424 oz BMI 18.5 BP 104/58 L Blood Pressure Location Lt brachial Position Sitting Pulse 98 Pulse Source Doppler Pulse Oximetry (%) 96 Oxygen Delivery Method Room Air Intake Visit Reasons: COPD Melter Supervisor Electric Arc Furnace Required: Yes Melter Supervisor Electric Arc Furnace Name: Latricia Page C.L.M Allergies aspirin [ASA] Allergy (Intermediate, Verified 01/23/24 09:08) RASH ibuprofen [Ibuprofen] Allergy (Intermediate, Verified 01/23/24 09:08) RASH morphine [MORPHINE] Allergy (Intermediate, Verified 01/23/24 09:08) ITCHING naproxen [From NAPROSYN] Allergy (Intermediate, Verified 01/23/24 09:08) RASH,N/V oxycodone [OXYCODONE] Allergy (Intermediate, Verified 01/23/24 09:08) NAUSEA & VOMITING, RASH sulfamethoxazole [From Bactrim] Adverse Reaction (Severe, Verified 01/23/24 09:08) Abdominal Pain trimethoprim [From Bactrim] Adverse Reaction (Severe, Verified 01/23/24 09:08) Abdominal Pain HPI HPI COPD: Details: 78-year-old lady, former approximately 15 pack-year smoker, quit 2014 followed for dyspnea on exertion and moderate to severe persistent asthma.? She continues to use Flovent, and Combivent, patient also previously was Fasenra, however her control started to worsening she was switched to to Dupixent, with improved control of her symptoms, although she did develop allergy to Dupixent and that had to be stopped, after that her asthma control has worsened. [facility] Medical History Chronic pain syndrome Osteoarthritis GERD (gastroesophageal reflux disease) History of COVID-19 Emphysema lung Hyperlipidemia Hypertension Asthma Hemorrhoids with complication UTI (urinary tract infection) Malignant neoplasm of urinary bladder Bladder mass Surgical History History of surgery History of ERCP Hx laparoscopic cholecystectomy Hx of cystoscopy History of hysterectomy with bilateral oophorectomy Hx of colonoscopy (01/17/19) History of esophagogastroduodenoscopy (EGD) Family History Father No problems noted. Mother Diabetes Brother Lung cancer Daughter Diabetes Social History Household Members: Family Housing: Apartment Do you presently have visiting nurse or other home services: Yes Alcohol intake: never Patient Tobacco Use Status: Former Tobacco user Quit Date: 17 yrs ago Years Smoked: 55 service: No Current occupational status: retired Current occupation: rt handed Review of Systems Const Denies daytime sleepiness, Denies excessive sweating, Denies fatigue, Denies fever(s), Denies lethargy, Denies malaise, Denies night sweats, Denies snoring and Denies weight loss Eyes Denies blurry vision and Denies itchy eyes ENT Denies nasal congestion, Denies post nasal drip, Denies sinus pain, Denies sinus pressure and Denies other ( Thrush) Card Denies chest pain, Denies pedal edema, Denies dyspnea, Denies orthopnea and Denies paroxysmal nocturnal dyspnea Resp Denies cough, Denies hemoptysis, Denies excessive phlegm production, Denies dyspnea, Denies snoring and Reports wheezing GI Denies abdominal pain and Denies heartburn Musc Denies myalgias, Denies arthralgias and Denies joint swelling Skin/Breast Denies rash Neuro Denies memory loss and Denies seizure-like activity Psych Denies abnormal sleep pattern, Denies anxiety and Denies memory loss Endo Denies excessive sweating, Denies fatigue and Denies heat intolerance Elio/Lymph Denies easy bruising Aller/Immun Denies itchy eyes, Denies seasonal rhinorrhea and Reports wheezing Physical Exam Vital Signs: Last Vital Signs Pulse 98 01/23/24 09:01 BP 104/58 L 01/23/24 09:01 Pulse Ox 96 01/23/24 09:01 Oxygen Delivery Method Room Air 01/23/24 09:01 BMI result Body Mass Index 18.5 Const General: no acute distress and alert Nutritional Appearance: not obese Orientation/consciousness: Other orientation findings ( oriented) HEENT Head: Yes atraumatic Eyes General: appearance normal, both eyes and all related structures Sclerae: sclerae normal EOM: EOMs intact bilaterally Neck Neck: Yes supple Lymphatic: no lymphadenopathy noted Resp Effort & Inspection: normal respiratory effort and no use of accessory muscles Auscultation: clear to auscultation bilaterally Cardio Rate: regular rate Rhythm: regular rhythm Heart sounds: no gallops, no murmurs and no rubs Skin General skin exam: other ( warm) Extrem General: No clubbing, No cyanosis and No edema Assessment & Plan Assessment & Plan (1) Severe persistent asthma: Code(s): J45.50 - Severe persistent asthma, uncomplicated Category: Medical Plan: Previously well controlled on Dupixent, however had to stop at secondary to an allergic reaction. Will request Nucala approval. Continue Combivent, Flovent, and albuterol MDI. (2) Environmental allergies: Code(s): Z91.09 - Other allergy status, other than to drugs and biological substances Category: Medical Plan: Expect to improve on Nucala Coding Level of Care Code Est Pt Level 4 (07660) Diagnoses Severe persistent asthma J45.50 Environmental allergies Z91.09
== END 2024-01-23 09:20 | disposition home or self-care (01) ==
PROVIDERS: PCP General Practice; Visit Provider Internal Medicine Pulmonary Disease
DX: J45.50 Severe persistent asthma, uncomplicated (principal); Z91.09 Other allergy status, other than to drugs and biological substances
CPT/HCPCS: 99214

== ENCOUNTER → 2024-01-23 08:48 | Outpatient (BNVA) | payer OTHER, SELFPAY | PROVIDERS: PCP General Practice; Visit Provider Internal Medicine Pulmonary Disease | DX: J45.50 Severe persistent asthma, uncomplicated (principal); Z91.09 Other allergy status, other than to drugs and biological substances; Z79.899 Other long term (current) drug therapy | CPT/HCPCS: 99212 ==

== ENCOUNTER 2024-01-30 08:37 | Outpatient (AMB) | payer OTHER, SELFPAY ==
--- NOTE | 2024-01-30 08:43 | MHC.OFFVIS ---
Intake Visit Reasons: Post BI Retrograde/Stents Intake Note: Patient is Present for Follow Up Post BI Retrograde/Stents Urology Medication: None Antibiotic Allergies: Sulfa Antibiotic, Bactrim, Trimethroprim Blood Thinners:None Furniture Rental Consultant Required: Yes Furniture Rental Consultant Language: [place] Information Interpreted: clinical only Allergies aspirin [ASA] Allergy (Intermediate, Verified 01/30/24 08:46) RASH ibuprofen [Ibuprofen] Allergy (Intermediate, Verified 01/30/24 08:46) RASH morphine [MORPHINE] Allergy (Intermediate, Verified 01/30/24 08:46) ITCHING naproxen [From NAPROSYN] Allergy (Intermediate, Verified 01/30/24 08:46) RASH,N/V oxycodone [OXYCODONE] Allergy (Intermediate, Verified 01/30/24 08:46) NAUSEA & VOMITING, RASH sulfamethoxazole [From Bactrim] Adverse Reaction (Severe, Verified 01/30/24 08:46) Abdominal Pain trimethoprim [From Bactrim] Adverse Reaction (Severe, Verified 01/30/24 08:46) Abdominal Pain HPI Comments Details: Altaf is a pleasant female. She is a patient of . She seen for the following urologic conditions - recurrent high-grade bladder cancer invasive Telemedicine Evaluation 15 min Consultation [employer] Video attempted [place] translation provided by qualified medical accounting clerk 02/01 stent internalization Bladder TURP with fulguration - high-grade T1 Removal of catheter Recommend induction 6 weeks mitomycin-C with cytarabine Stents to remain 01/02 Worsening hydronephrosis Creatinine ratio elevate Bilateral PCN placed followed by stent internalization in operating room Labs Cr 06/[address] right hydro, left mild hydro Completed neoadjuvant chemotherapy Right PCN placed after presentation for NADEEN - creatinine resolving from 2.9 down to 0.94 - 03/[address] scan with resolution of bladder thickening, right hydronephrosis. 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 The bladder is partially distended with irregular wall thickening and trabeculated appearance. Dilated appearance of both distal ureters. Moderate right hydronephrosis. Mild left hydronephrosis. No lymphadenopathy. Bladder cancer superficial high-grade 2019 - disease progression - 12/01 muscle invasive bladder cancer Initial diagnosis with Dr. Hankins TURBT 05/30 high-grade superficial noninvasive disease Adjuvant therapy BCG June 2019 Surveillance cystoscopy - 04/30 NAD, 10/01 NAD, 10/02 NAD - trabeculated bladder with BCG change PFSH Medical History Chronic pain syndrome Osteoarthritis GERD (gastroesophageal reflux disease) History of COVID-19 Emphysema lung Hyperlipidemia Hypertension Asthma Hemorrhoids with complication UTI (urinary tract infection) Malignant neoplasm of urinary bladder Bladder mass Surgical History History of surgery History of ERCP Hx laparoscopic cholecystectomy Hx of cystoscopy History of hysterectomy with bilateral oophorectomy Hx of colonoscopy (01/17/19) History of esophagogastroduodenoscopy (EGD) Family History Father No problems noted. Mother Diabetes Brother Lung cancer Daughter Diabetes Social History Household Members: Family Housing: Apartment Do you presently have visiting nurse or other home services: Yes Alcohol intake: never Patient Tobacco Use Status: Former Tobacco user Quit Date: 17 yrs ago Years Smoked: 55 service: No Current occupational status: retired Current occupation: rt handed Review of Systems Const Denies chills and Denies fever(s) Card Reports no additional complaints and Denies syncope Resp Denies cough GI Denies abdominal pain and Denies heartburn Reports as per HPI and Denies change in libido Neuro Denies syncope Psych Denies change in libido Endo Denies change in libido Physical Exam Const General: cooperative, healthy appearing, comfortable and no acute distress Orientation/consciousness: patient oriented x3 HEENT Face and sinus: Yes normal facial exam Mouth: moist mucous membranes Neck Neck: Yes normal visual inspection, Yes full ROM and Yes trachea midline Chest Chest palpation & inspection: normal inspection of the chest Resp Effort & Inspection: normal respiratory effort, able to speak in complete sentences and no respiratory distress GI Inspection: Yes normal to inspection Back/Spine/Pelvis Cervical Spine: normal cervical lordosis Thoracic/Lumbar Spine: thoracic and lumbar spine normal to inspection Skin General skin exam: no rashes or lesions noted Neuro General: patient oriented x3, gait normal, tone normal and moves all extremities Extrem General: Yes normal to inspection and Yes capillary refill normal Results Reviewed Results Reviewed: 16 fr cath removed, pt tolerated removal well Assessment & Plan Assessment & Plan (1) Bladder cancer: Comment: Progressive high-grade urothelial carcinoma 12/01 muscle invasive with squamous differentiation Code(s): C67.9 - Malignant neoplasm of bladder, unspecified Category: Medical Qualifiers: Bladder location: overlapping sites Qualified Code(s): C67.8 - Malignant neoplasm of overlapping sites of bladder Plan Recurrent high-grade bladder cancer T1 Bladder immunotherapy Bladder immuno/chemotherapy was discussed today. These medications are used to create an immune reaction against bladder cancer. The intention is to destroy any tumor cells left on the bladder surface. Since BCG and gemcitabine involved immunostimulation they are not indicated in situations where there is immune weakness. Medications are placed directly into the bladder. It should be held for one to 2 hours. The toilet should be disinfected with a cap full of household bleach prior to urination. Side effects from BCG and gemcitabine generally include mucosa-related changes such as urinary urgency and/or frequency, and hematuria BCG may also invoke an infection type response. An elevated temperature may be indicative of more serious issues and should be reported to the Dr. The intention with bladder immunotherapy is to reduce the frequency of bladder cancer recurrence by 50%. Multiple protocols are available - mitomycin-C for alkalinization - 40mg/200mg in 40cc NSal - EAU 2020: A Randomized Clinical Trial of Intravesical Instillation of Mitomycin-C and Combination of Mitomycin-C and Cytarabine (Tammie-C) in Non-Muscle Invasive Bladder Cancer - Wilian Merchant - Combination Gemcitabine/Docetaxel - 1gm/40mg in 100cc NSal 60 min (Intravesical gemcitabine and docetaxel in the treatment of BCG-na?ve non?muscle invasive urothelial carcinoma of the bladder: Updates from a phase 2 trial. Crossref DOI link:?https://[email or web address]) Will undergo - induction therapy with mitomycin C plus cytarabine Patient Instructions: Imaging studies, laboratory and physical exam results were discussed and reviewed in detail. No major barriers to patient understanding were identified. An opportunity to ask questions regarding the treatment plan was provided. All questions were answered. The patient expressed understanding and agreement with the above treatment plan. The patient is aware they should contact our office by phone for worsening of their current condition or the appearance of new urologic symptoms. Compliance is encouraged with any medications and followup testing that is ordered. It is a privilege to participate in the urologic care of your patient. If you have any questions or concerns regarding treatment for the above conditions, or other urologic issues, please do not hesitate to contact me. The office telephone contact is [phone]. This note is constructed using voice recognition software. While every effort has been made to ensure accuracy insert molding operator errors may have been included. Yours sincerely, Dr Severo Blair MD, [facility] - Urology Providers of Expert, Compassionate Care for the Genitourinary System Coding Level of Care Code Est Pt Level 4 (09949) Diagnoses Malignant neoplasm of overlapping sites of bladder C67.8 Bladder location: overlapping sites
== END 2024-01-30 09:19 | disposition home or self-care (01) ==
PROVIDERS: PCP General Practice; Visit Provider Urology
DX: C67.8 Malignant neoplasm of overlapping sites of bladder (principal)
CPT/HCPCS: 99214

== ENCOUNTER → 2024-01-30 08:37 | Outpatient (BNVA) | payer OTHER, SELFPAY | PROVIDERS: PCP General Practice; Visit Provider Urology | DX: C67.8 Malignant neoplasm of overlapping sites of bladder (principal) | CPT/HCPCS: 99212 ==

== ENCOUNTER 2024-02-13 10:33 | Outpatient (AMB) | payer OTHER, SELFPAY ==
[2024-02-13 10:38] VITALS: BP 92/55; PULSE 101; BMI 19.5
--- NOTE | 2024-02-13 10:38 | MHC.OFFVIS ---
Vital Signs 02/13/24 10:38 Height 5 ft 2 in Weight 106 lb 11.26 oz BMI 19.5 BP 92/55 L Blood Pressure Location Lt brachial Position Sitting Pulse 101 H Intake Visit Reasons: 6 mnth follow up Intake Note: Altaf returns to in office 6 months follow up of GERD and CIC. CC: Patient c/o epigastric pain, abdominal pain, nausea and vomiting that she attributes to her cancer. She reports regular BMs with medication. Office Services Specialist Required: Yes Accompanied by: Self / Same As Patient Allergies aspirin [ASA] Allergy (Intermediate, Verified 02/13/24 10:43) RASH ibuprofen [Ibuprofen] Allergy (Intermediate, Verified 02/13/24 10:43) RASH morphine [MORPHINE] Allergy (Intermediate, Verified 02/13/24 10:43) ITCHING naproxen [From NAPROSYN] Allergy (Intermediate, Verified 02/13/24 10:43) RASH,N/V oxycodone [OXYCODONE] Allergy (Intermediate, Verified 02/13/24 10:43) NAUSEA & VOMITING, RASH sulfamethoxazole [From Bactrim] Adverse Reaction (Severe, Verified 02/13/24 10:43) Abdominal Pain trimethoprim [From Bactrim] Adverse Reaction (Severe, Verified 02/13/24 10:43) Abdominal Pain HPI HPI 6 mnth follow up: Details: Assessment & Plan (1) Gastroesophageal reflux disease: Code(s): K21.9 - Gastro-esophageal reflux disease without esophagitis Plan: Irish #Isabel maryann The LInzess at 145mcg is controlling her CIC well, and the proctosol cream has well effected my hemorrhoids. However, the pantoprazole did not control her HB well and she went back to omeprazole. She was just buying it OTC but I will RX this. She is having trouble with an injection for her asthma, the insurance changed it and she is having itching. After just 3 mos she was told that her bladder cancer had returned. She will be having radiotherapy for it. ROV 6 mos. (2) Chronic idiopathic constipation: Code(s): K59.04 - Chronic idiopathic constipation Medications: New omeprazole 40 mg PO DAILY 30 caps 6RF 30 days Refilled linaclotide (Linzess) 145 mcg PO QAM 30 caps 6RF Discontinued pantoprazole Discontinued Reason: Doctor's Order 40 mg PO DAILY 30 days 30 tabs 1RF TODAY'S VISIT Irish #Paul Live She received the omeprazole and finds it is helping better than the pantoprazole for her heartburn. However, she is now having trouble with right-sided abdominal pain that seems to follow the path of the colon. I ask her how she has doing with the Linzess and moving her bowels and she says ?my primary care provider gave me a liquid in his helping. ? However the liquid is lactulose and after discussion I find out that insurance has been denying her Linzess. She did much better when she was on this and lactulose is prone to causing gas and cramping which is likely the etiology of her pain. We are going to try to get a PA for the Linzess and I educate her in the future she needs to tell me about this so that I can advocate for her. Return office visit in 4 weeks to assess the Linzess. [facility] Medical History Chronic pain syndrome Osteoarthritis GERD (gastroesophageal reflux disease) History of COVID-19 Emphysema lung Hyperlipidemia Hypertension Asthma Hemorrhoids with complication UTI (urinary tract infection) Malignant neoplasm of urinary bladder Bladder mass Surgical History History of surgery History of ERCP Hx laparoscopic cholecystectomy Hx of cystoscopy History of hysterectomy with bilateral oophorectomy Hx of colonoscopy (01/17/19) History of esophagogastroduodenoscopy (EGD) Family History Father No problems noted. Mother Diabetes Brother Lung cancer Daughter Diabetes Social History Household Members: Family Housing: Apartment Do you presently have visiting nurse or other home services: Yes Alcohol intake: never Patient Tobacco Use Status: Former Tobacco user Years Smoked: 56 service: No Current occupational status: retired Current occupation: rt handed Review of Systems Const Denies fatigue, Denies fever(s), Denies night sweats, Denies poor appetite and Denies weight loss ENT Reports Normal hearing present, Denies dental pain, Denies dysphagia, Denies hearing loss, Denies mouth pain, Denies odynophagia, Denies throat swelling, Denies tongue swelling and Reports other (Dentition adequate) Card Reports no additional complaints Resp Reports no additional complaints GI Details: Reports abdominal pain, Denies melena, Reports bloating, Denies hematochezia, Reports constipation, Denies GI cramping, Denies dysphagia, Denies excessive flatus, Denies early satiety, Reports heartburn, Denies diarrhea, Denies nausea, Denies odynophagia, Denies vomiting and Denies hematemesis Skin/Breast Denies pruritus, Denies lesions, Denies rash and Denies jaundice Neuro Reports Normal hearing present and Denies Abnormal speech present Endo Denies fatigue Aller/Immun Denies throat swelling and Denies tongue swelling Physical Exam Vital Signs: Last Vital Signs Pulse 101 H 02/13/24 10:38 BP 92/55 L 02/13/24 10:38 BMI result Body Mass Index 19.5 Const General: cooperative, no acute distress, well developed and well groomed Nutritional Appearance: average body habitus and well nourished Orientation/consciousness: oriented to person, oriented to place and oriented to time Limitations: language barrier and ambulation with walker HEENT Head: Yes normocephalic and Yes atraumatic Eyes General: appearance normal, both eyes and all related structures Pupils: Equal, round and reactive pupils present Neck Neck: Yes normal visual inspection and Yes no lymphadenopathy Thyroid: Thyroid normal Resp Effort & Inspection: normal respiratory effort and able to speak in complete sentences Auscultation: clear to auscultation bilaterally Cardio Rate: regular rate Rhythm: regular rhythm Heart sounds: Normal, physiologic split S2 sound present Peripheral pulses: radial pulses present and posterior tibial pulses present GI Inspection: No distended and No Abdominal panniculus present Palpation (GI): Soft to palpation, Tenderness to palpation present (GI), no guarding, not rigid and No hepatosplenomegaly present Percussion: Yes normal to percussion Auscultation: normal bowel sounds Rectal Exam - Female: deferred Skin General skin exam: no rashes or lesions noted, turgor normal, skin not dry, no jaundice, No spider nevi and no striae Rashes: no rashes Nails: normal Neuro General: oriented to person, oriented to place and oriented to time Cranial nerves: Yes Equal, round and reactive pupils present and Yes Normal hearing present Speech: No Abnormal speech present Extrem General: Yes normal to inspection, No clubbing, No cyanosis and No edema Psych Appearance: grossly normal and well kempt Mental Status: mental status grossly normal Speech and movement: Normal speech and movement present Affect: normal affect Attitude: cooperative Thought process: Normal thought process present and not confabulating Thought content: Normal thought content present Insight: Limited insight present (Psych) Judgement: Limited judgement present (Psych) Assessment & Plan Assessment & Plan (1) Gastroesophageal reflux disease: Code(s): K21.9 - Gastro-esophageal reflux disease without esophagitis Category: Medical (2) Chronic idiopathic constipation: Code(s): K59.04 - Chronic idiopathic constipation Category: Medical Plan Irish #Paul Live She received the omeprazole and finds it is helping better than the pantoprazole for her heartburn. However, she is now having trouble with right-sided abdominal pain that seems to follow the path of the colon. I ask her how she has doing with the Linzess and moving her bowels and she says ?my primary care provider gave me a liquid in his helping. ? However the liquid is lactulose and after discussion I find out that insurance has been denying her Linzess. She did much better when she was on this and lactulose is prone to causing gas and cramping which is likely the etiology of her pain. We are going to try to get a PA for the Linzess and I educate her in the future she needs to tell me about this so that I can advocate for her. Return office visit in 4 weeks to assess the Linzess. Medications: Refilled linaclotide (Linzess) 145 mcg PO QAM 30 caps 6RF omeprazole 40 mg PO DAILY 30 caps 6RF Coding Level of Care Code Est Pt Level 3 (36391) Diagnoses Gastroesophageal reflux disease K21.9 Chronic idiopathic constipation K59.04
== END 2024-02-13 11:20 | disposition home or self-care (01) ==
PROVIDERS: PCP General Practice; Visit Provider Nurse Practitioner
DX: K21.9 Gastro-esophageal reflux disease without esophagitis (principal); K59.04 Chronic idiopathic constipation
CPT/HCPCS: 99213

== ENCOUNTER → 2024-02-13 10:33 | Outpatient (BNVA) | payer OTHER, SELFPAY | PROVIDERS: Visit Provider Nurse Practitioner | DX: K21.9 Gastro-esophageal reflux disease without esophagitis (principal); K59.04 Chronic idiopathic constipation | CPT/HCPCS: 99212 ==

== ENCOUNTER 2024-03-13 12:57 | Inpatient (IN) | payer OTHER, SELFPAY ==
--- NOTE | ~2024-03-13 | IR_ITS ---
History: Patient with bladder cancer and bilateral urinary obstruction. She has existing ureteral stents, but persistent hydronephrosis. Procedures performed: 1. Bilateral ultrasound and fluoroscopic guided placement of nephrostomy tubes Physician: Jeff Chavarria MD FSIR Anesthesia: IV moderate sedation with intravenous fentanyl and Versed was administered under my direct supervision for a total of 45 minutes with continuous physiologic monitoring. Specimen: None Drain: Bilateral 8 Congolese nephrostomy tubes Estimated blood loss: Minimal Complications: None Procedure in detail: Informed and written consent was obtained and placed in the chart. The patient was positioned prone. Preliminary ultrasound demonstrated severe bilateral hydronephrosis. The bilateral flanks were prepped and draped. We started on the left. Under ultrasound, 1% lidocaine was injected subcutaneously and extended to the renal capsule. A small incision was made in the skin with a #11 blade. Through the incision and under ultrasound guidance with permanent recordings and direct visualization of needle penetration to the collecting system, an AccuStick needle was advanced into a lower pole calyx. We transitioned for an Amplatz wire over which an 8 Congolese nephrostomy tube was placed. Antegrade nephrostogram revealed severe hydronephrosis and hydroureter. The nephrostomy coils in the renal pelvis. We now directed our attention to the right. Under ultrasound, 1% lidocaine was injected subcutaneously and extended to the renal capsule. A small incision was made in the skin with a #11 blade. Through the incision and under ultrasound guidance with permanent recordings and direct visualization of needle penetration to the collecting system, an AccuStick needle was advanced into a lower pole calyx. We transitioned for an Amplatz wire over which an 8 Congolese nephrostomy tube was placed. Antegrade nephrostogram revealed severe hydronephrosis and hydroureter. The nephrostomy coils in the renal pelvis. Both nephrostomy tubes were secured with a single 2-0 nylon suture and overlying sterile dressing. There were connected to gravity drainage. Summary: Successful bilateral nephrostomy tube placement. FLUOROSCOPY TIME: DOSE AREA PRODUCT: uGy-m2 (microgray-meter squared)
--- NOTE | ~2024-03-13 | CT_ITS ---
EXAMINATION: CT ABDOMEN AND PELVIS WITHOUT CONTRAST CLINICAL INFORMATION: History of bladder cancer. Abdominal pain. COMPARISON: 12/19/2023 and 06/02/2023 TECHNIQUE: Multidetector volumetric imaging was performed from the superior aspect of the liver through the pubic symphysis. Sagittal and coronal reformatted images were obtained on the technologist's workstation. This CT examination was performed using dose optimization techniques as appropriate, variously including the following: *Automated exposure control *Adjustment of mA and/or kV according to patient size (this includes techniques or standardized protocols for targeted exams where dose is matched to indication/reason for exam; i.e. extremities or head) *Use of iterative reconstruction technique DLP: 254 mGy-cm FINDINGS: LUNG BASES: No pleural or pericardial effusion. LIVER, GALLBLADDER, AND BILIARY TREE: The noncontrast liver is normal in size and contour. Pneumobilia. No biliary ductal dilatation is present. The gallbladder is surgically absent. PANCREAS: Unremarkable. SPLEEN: Unremarkable. ADRENAL GLANDS: No adrenal mass. KIDNEYS AND URETERS: Right: There is severe hydroureteronephrosis despite placement of stent from the right renal pelvis to the bladder. Soft tissue thickening at the ureteropelvic junction and at the bladder insertion. No renal or ureteral calculi. Left: There is moderate to severe hydroureteronephrosis despite placement of stent from the left renal pelvis to the bladder. No renal or ureteral calculi. There is soft tissue thickening at the ureteropelvic junction. BLADDER: Diffuse irregular bladder wall thickening extending to the bladder base. Streak artifact limits evaluation. GASTROINTESTINAL TRACT: No small bowel obstruction. Extensive diverticular disease of the colon. ABDOMINAL WALL: No significant hernia is appreciated. LYMPH NODES: Numerous prominent retroperitoneal lymph nodes. VASCULAR: Normal caliber abdominal aorta. PELVIC VISCERA: Uterus is surgically absent. OSSEOUS STRUCTURES: Generalized osteopenia. Stable loss of L5 vertebral body heights. No destructive bone lesions. CT/CT abdomen pelvis wo IV con IMPRESSION: Moderate to severe bilateral hydroureteronephrosis with soft tissue thickening at the ureteropelvic junctions and on the right at the bladder insertion. Numerous prominent retroperitoneal lymph nodes. Diffuse irregular bladder wall thickening extending to the bladder base. 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 PET/CT may be considered to assess further.
--- NOTE | 2024-03-13 13:06 | ED.GENADULT ---
HPI - General Adult General Chief complaint: Abdominal Pain Stated complaint: From oncology Time Seen by Provider: 03/13/24 13:00 Source: patient, RN notes reviewed and old records reviewed Mode of arrival: ambulatory History of Present Illness ED Provider: Audrey Salcido PA-C HPI narrative: 78-year-old female with past medical history GERD, HLD, HTN, asthma, high-grade bladder CA s/p TURBT currently on chemotherapy, s/p bilateral nephrostomy tube placement on 01/15/2024 presenting to ED from Oncology for hypotension, abdominal pain and vomiting in office [employer]. Patient states she is unable to care her treatment today due to low BP. Dr. Blair's office was contacted per patient and recommended CT scan to evaluate nephrostomy tubes. Patient also reports dysuria and chronic lightheadedness/dizziness, unchanged. denies fever, hematuria, diarrhea, CP/SOB Related Data Home Medications ?Medication ?Instructions ?Recorded ?Confirmed lisinopril 10 mg tablet 15 mg PO DAILY 03/09/22 01/05/24 ipratropium 20 mcg-albuterol 100 1 puff inhalation QID 12/28/22 01/05/24 mcg/actuation mist for inhalation (Combivent Respimat) pravastatin 40 mg tablet 40 mg PO DAILY 12/28/22 01/05/24 lactulose 10 gram/15 mL oral ml PO 02/13/24 solution Previous Rx's ?Medication ?Instructions ?Recorded sennosides 8.6 mg-docusate sodium 1 tab-cap PO BEDTIME #30 tabs 01/16/23 50 mg tablet (Senna with Docusate Sodium) hydroxyzine HCl 25 mg tablet 25 mg PO TID #50 tabs 07/13/23 lidocaine-prilocaine 2.5 %-2.5 % 1 appl topical ONCE pain #30 grams 09/14/23 topical cream albuterol sulfate 90 mcg/actuation 2 puff inhalation Q4-6H PRN 11/02/23 aerosol inhaler shortness of breath or wheezing 30 days #1 ea ondansetron 8 mg disintegrating 8 mg PO Q8H PRN Nausea #30 tabs 12/20/23 tablet tramadol 50 mg tablet 50 mg PO Q6H PRN Pain #60 tabs 12/20/23 hydrocortisone 2.5 % topical cream 1 appl [place] BID #30 grams 02/06/24 with perineal applicator linaclotide 145 mcg capsule 145 mcg PO QAM #30 caps 02/13/24 (Linzess) omeprazole 40 mg capsule,delayed 40 mg PO DAILY #30 caps 02/13/24 release tramadol 100 mg tablet 100 mg PO Q6H #90 tabs 02/21/24 tramadol 50 mg tablet 100 mg (2 x 50 mg) PO Q6H PRN 02/22/24 Breakthrough Pain, Moderate #60 tabs Allergies Allergy/AdvReac Type Severity Reaction Status Date / Time aspirin [ASA] Allergy Intermediate RASH Verified 03/13/24 13:12 ibuprofen [Ibuprofen] Allergy Intermediate RASH Verified 03/13/24 13:12 morphine [MORPHINE] Allergy Intermediate ITCHING Verified 03/13/24 13:12 naproxen [From NAPROSYN] Allergy Intermediate RASH,N/V Verified 03/13/24 13:12 oxycodone [OXYCODONE] Allergy Intermediate NAUSEA & Verified 03/13/24 13:12 VOMITING, RASH sulfamethoxazole AdvReac Severe Abdominal Verified 03/13/24 13:12 [From Bactrim] Pain trimethoprim [From Bactrim] AdvReac Severe Abdominal Verified 03/13/24 13:12 Pain Review of Systems Review of Systems: Constitutional: No Fever, No Chills ENT/Mouth: No Ear Pain, No Nasal Congestion, No sore throat, No Rhinorrhea, No Swallowing Difficulty Cardiovascular: No Chest Pain, No SOB Respiratory: No Cough, No Sputum, No Wheezing Gastrointestinal: + Nausea, + Vomiting, No Diarrhea, No Constipation, +Abdominal pain Genitourinary: + Dysuria, No Urinary Frequency, No Hematuria, No Urinary Incontinence/retention, No Flank Pain Musculoskeletal: No joint pain, No Myalgias, No Joint Swelling Skin: No Skin Lesions, No rash Neuro: + lightheadedness/dizziness, No Weakness, No Numbness, No Paresthesias Yes all other systems are reviewed and are negative Constitutional: Constitutional: Reports as per [facility] Past Medical History Attestation statement: The following information was validated with the patient. Source: old records reviewed Medical History Chronic pain syndrome Osteoarthritis GERD (gastroesophageal reflux disease) History of COVID-19 Emphysema lung Hyperlipidemia Hypertension Asthma Hemorrhoids with complication UTI (urinary tract infection) Malignant neoplasm of urinary bladder Bladder mass Surgical History History of surgery History of ERCP Hx laparoscopic cholecystectomy Hx of cystoscopy History of hysterectomy with bilateral oophorectomy Hx of colonoscopy (01/17/19) History of esophagogastroduodenoscopy (EGD) Family History Family History Father No problems noted. Mother Diabetes Brother Lung cancer Daughter Diabetes Social History Social History Household Members: Family Housing: Apartment Do you presently have visiting nurse or other home services: Yes Alcohol intake: never Patient Tobacco Use Status: Former Tobacco user Years Smoked: 55 Smoked in Last 30 Days: No Use of substances other than those prescribed or required for medical reasons: No Advance Directives: No service: No Current occupational status: retired Current occupation: rt handed Physical Exam ED Vital Signs: Vital Signs - 24 hr 03/13/24 13:08 03/13/24 15:59 03/13/24 17:42 Temperature 98.1 F 98.1 F Pulse Rate 78 83 87 Respiratory Rate 16 16 16 Blood Pressure 114/55 L 94/62 105/71 Pulse Oximetry 96 97 99 Oxygen Delivery Method Room Air Room Air Room Air 03/13/24 17:44 Temperature 98.7 F Pulse Rate 85 Respiratory Rate 16 Blood Pressure 114/66 Pulse Oximetry 97 Oxygen Delivery Method Room Air BMI result Body Mass Index 17.0 Const General: cooperative and no acute distress Nutritional Appearance: thin Orientation/consciousness: patient oriented x3 Limitations: no limitations HENMT Head: Yes normal to inspection and Yes atraumatic Ears: hearing grossly normal bilaterally General nose exam: Normal external nose present Face and sinus: Yes normal facial exam Eyes General: appearance normal, both eyes and all related structures EOM: EOMs intact bilaterally Neck Neck: Yes normal visual inspection and Yes no meningeal signs Resp Effort & Inspection: normal respiratory effort and no respiratory distress Auscultation: clear to auscultation bilaterally Cardio Rate: regular rate Heart sounds: S1 normal heart sound present and S2 normal heart sound present GI Inspection: Yes normal to inspection Palpation (GI): Soft to palpation, Tenderness to palpation present (GI) in the RLQ and in the LUQ; with no rebound tenderness, no guarding and not rigid General: Yes no CVA tenderness Back/Spine/Pelvis Back: no CVA tenderness Skin Rashes: no rashes Wounds: no wounds Neuro General: patient oriented x3, tone normal, moves all extremities, no meningeal signs and no focal motor deficits Cranial nerves: Yes CN's II-XII intact bilaterally Gait exam (Neuro): Normal gait present Extrem General: Yes normal to inspection Course Course Course Narrative: 1330--leukocytosis 12.4. H&H at patient's baseline. Potassium mildly elevated to 5.3. -NADEEN on CKD -UA infected, IV Rocephin already given -1630--ED care transferred to YAMIL Carver pending CT AP and admission Reevaluation(s) Reevaluation #1: CT scan returns, revealing moderate to severe bilateral hydroureter nephrosis with soft tissue thickening at the UPJ and on the right at the bladder insertion. There are prominent retroperitoneal lymph nodes noted. There is diffuse irregular bladder wall thickening extends to the bladder base. Given complicated medical history, with NADEEN, and UTI, patient needs to be admitted for further management. Discussed case with Dr. Jones, transfer of care initiated. Time: 17:24 Medications Administered Discontinued Medications Generic Name Dose Route Start Last Admin Trade Name Freq PRN Reason Stop Dose Admin Sodium Chloride 1,000 mls @ 999 mls/hr 03/13/24 13:30 03/13/24 17:34 Ns IV 03/13/24 14:30 Infused .Q1H1M HERNESTO Infusion Ceftriaxone Sodium 1 gm/ 50 mls @ 100 mls/hr 03/13/24 13:51 03/13/24 17:22 Sodium Chloride IV 03/13/24 14:20 Infused ONCE ONE Infusion Medical Decision Making Medical Decision Making [facility] Narrative: 78-year-old female with past medical history GERD, HLD, HTN, asthma, high-grade bladder CA s/p TURBT currently on chemotherapy, s/p bilateral nephrostomy tube placement on 01/15/2024 presenting to ED from Oncology for hypotension, abdominal pain and vomiting in office [employer]. On exam vital signs stable, NAD, chronically ill-appearing, abdomen soft with RUQ/RUQ tenderness, no rebound or guarding. Concern for metabolic abnormalities including dehydration vs nephrostomy tube complications/obstruction vs renal stone vs UTI vs appendicitis. Lower suspicion for cholecystitis/lithiasis Plan: Labs performed in oncology [employer], UA, IVF, CT AP, consult Oncology/urology Low suspicion for severe sepsis at this time Please refer to course for remaining clinical decision making, interpretation of labs/imaging results, and discussions with consultants and/or family members. Differential Diagnosis Differential Diagnoses: The differential diagnosis associated with the presentation includes As above Admission/Observation Consideration of admission/observation: Escalation of care including admission/observation considered Consult Healthcare Provider Management of the patient was discussed with: Deburr Operator Lab Data [facility] Lab Attestation statement: I reviewed the patient's lab results. Labs: Lab Results 03/13/24 Range/Units 13:44 Osmolality Cancelled Lactic Acid 1.7 (0.5-2.0) mmol/L Magnesium 1.8 (1.6-2.6) mg/dL Lipase 7 L (8-78) U/L Urine Color Yellow Urine Appearance Turbid Urine pH 7.0 (5.0-9.0) Ur Specific [place] 1.025 (1.005-1.025) Urine Protein 300 (3+) H (Neg-Trace) mg/dL Urine Glucose (UA) Negative (Negative) mg/dL Urine Ketones Trace (Negative) mg/dL Urine Blood Moderate (2+) H (Negative) Urine Nitrite Negative (Negative) Ur Leukocyte Esterase Large (3+) H (Negative) Urine RBC >20 H (0-2) /HPF Urine WBC >50 (0-5) /HPF Ur Squamous Epith Cells 3-5 (0-2) /HPF Urine Bacteria 4+ (None Seen) Hyaline Casts 0-2 (0-2) /LPF Ur Random Sodium 83.0 mmol/L Urine Creatinine 59.71 mg/dL Independent Interpretation I performed an independent interpretation of an: EKG Radiology Impression Discussion of test interpretation with radiology: I have reviewed the radiologist's reading. Radiologist Impression: CT/CT abdomen pelvis wo IV con IMPRESSION: Moderate to severe bilateral hydroureteronephrosis with soft tissue thickening at the ureteropelvic junctions and on the right at the bladder insertion. Numerous prominent retroperitoneal lymph nodes. Diffuse irregular bladder wall thickening extending to the bladder base. 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 PET/CT may be considered to assess further. Dictated By: Samra Smith MD External Record Review External record reviewed: Inpatient record, Office record, Outpatient record, Prior outpatient labs, Prior outpatient radiology, Primary care record and Outside ED record Tests considered The following testing was considered but not selected: As above Chronic Conditions Patient?s care impacted by: Cancer Discharge Plan Discharge Clinical Impression: UTI (urinary tract infection), Acute kidney injury superimposed on CKD Patient Disposition: Still a Patient
[2024-03-13 13:08] VITALS: BP 114/55; PULSE 78; RESP 16; TEMP 36.7; O2SAT 96; BMI 17.0
--- NOTE | 2024-03-13 13:29 | ECG_ITS ---
Test Reason : DIZZINESS Blood Pressure : / mmHG Vent. Rate : 085 BPM Atrial Rate : 085 BPM P-R Int : 148 ms QRS Dur : 080 ms QT Int : 374 ms P-R-T Axes : 082 065 103 degrees QTc Int : 445 ms Artifact in tracing Normal sinus rhythm cannot assess lateral leads, otherwise unremarkable When compared with ECG of 23-AUG-2022 12:59, No significant changes seen Referred By: Audrey Salcido Electronically Signed By:KORTNEY MANSFIELD
[2024-03-13] MEDS: 0.9 % Sodium Chloride 1,000 ML 999 ML IV (13:47)
--- NOTE | 2024-03-13 13:56 | PC.NURSE ---
Labs obtained. Pt provided clean catch urine sample that is cloudy/white - YAMIL Salcido shown sample prior to sending to lab. IVF initiated.
[2024-03-13 14:03] LABS: Appearance Urine Turbid; Color Urine Yellow; Glucose Urine UA Negative (Negative); Nitrite Urine Negative (Negative); Specific Gravity - Urine 1.025 (1.005-1.025); UMIC TRIGGER UACC YES; Urine Blood Moderate (2+) (Negative); Urine Ketones Trace mg/dL (Negative); Urine Protein 300 (3+) mg/dL (Neg-Trace)
[2024-03-13 14:04] LABS: Leukocyte Esterase Urine Large (3+) (Negative)
[2024-03-13 14:05] LABS: Lactic Acid 1.7 mmol/L (0.5-2.0)
[2024-03-13 14:08] LABS: Lipase 7 U/L (8-78); Magnesium 1.8 mg/dL (1.6-2.6)
[2024-03-13] MEDS: cefTRIAXone sodium 1 GM in 0.9 % Sodium Chloride 50 ML IV (14:14)
[2024-03-13 14:23] LABS: Bacteria Urine 4+ (None Seen); Hyaline Casts Urine 0-2 /LPF (0-2); RBC Urine >20 /HPF (0-2); UACC Culture Trigger YES; WBC Urine >50 /HPF (0-5)
[2024-03-13 15:59] VITALS: BP 94/62; PULSE 83; RESP 16; TEMP 36.7; O2SAT 97
[2024-03-13 17:42] VITALS: BP 105/71; PULSE 87; RESP 16; O2SAT 99
[2024-03-13 17:44] VITALS: BP 114/66; PULSE 85; RESP 16; TEMP 37.1; O2SAT 97
[2024-03-13 18:36] LABS: Creatinine Urine 59.71 mg/dL
--- NOTE | 2024-03-13 18:36 | PM.IMHP ---
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 The patient is being followed by Dr. Palacios and Dr. Blair currently undergoing treatment with enfortumab vedotin a Nectin 4 directed antibody and microtubule inhibitor conjugate which was started on 12/27/2023. 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 Since then has had progressively worsening renal function and hyperkalemia and was referred to the ED for CT to see if there has been redevelopment of hydroureternephrosis. The patient reports longstanding dysuria and increased frequency/urgency with suprapubic pain that is chronic and unchanged. Has also had nausea and multiple episodes of vomiting over the last few days and reports anorexia. She does feel she takes in adequate fluids. No fevers, chills, diarrhea, melena, hematochezia, hemetemesis, lightheadedness, syncope, palpitations, sob, chest pain. On arrival, blood pressures soft improved to 114/66 with IVF and mildly tachycardic on arrival to 102. Afebrile. There is a leukocytosis of 12.4. She has a stable normocytic anemia with H/H 10.5/32.9%. Creatinine 2.58, BUN 36, baseline creatinine around 1.2 and has been progressively worsening since removal of the nephrostomy tubes on 01/28. Sodium 133, potassium 5.3, electrolytes otherwise normal. CT abdomen/pelvis shows moderate to severe bilateral hydroureteronephrosis with soft tissue thickening at the ureteropelvic junctions and on the right at the bladder insertion with numerous prominent retroperitoneal lymph nodes. There is also diffuse irregular bladder wall thickening ascending to the bladder base most likely representing multifocal bladder tumor with neoplastic involvement of the kidneys and ureters. She will be admitted for further management of NADEEN r/t bilateral hydroureternephrosis due to bladder cancer and UTI Review of Systems Review of Systems: Yes all other systems are reviewed and are negative [facility] Medical History Chronic pain syndrome Osteoarthritis GERD (gastroesophageal reflux disease) History of COVID-19 Emphysema lung Hyperlipidemia Hypertension Asthma Hemorrhoids with complication UTI (urinary tract infection) Malignant neoplasm of urinary bladder Bladder mass Family History Father No problems noted. Mother Diabetes Brother Lung cancer Daughter Diabetes Surgical History History of surgery History of ERCP Hx laparoscopic cholecystectomy Hx of cystoscopy History of hysterectomy with bilateral oophorectomy Hx of colonoscopy (01/17/19) History of esophagogastroduodenoscopy (EGD) Social History Household Members: Family Housing: Apartment Do you presently have visiting nurse or other home services: Yes Alcohol intake: never Patient Tobacco Use Status: Former Tobacco user Years Smoked: 55 Smoked in Last 30 Days: No Use of substances other than those prescribed or required for medical reasons: No Advance Directives: No service: No Current occupational status: retired Current occupation: rt handed Meds Allergies Allergy/AdvReac Type Severity Reaction Status Date / Time aspirin [ASA] Allergy Intermediate RASH Verified 03/13/24 13:12 ibuprofen [Ibuprofen] Allergy Intermediate RASH Verified 03/13/24 13:12 morphine [MORPHINE] Allergy Intermediate ITCHING Verified 03/13/24 13:12 naproxen [From NAPROSYN] Allergy Intermediate RASH,N/V Verified 03/13/24 13:12 oxycodone [OXYCODONE] Allergy Intermediate NAUSEA & Verified 03/13/24 13:12 VOMITING, RASH sulfamethoxazole AdvReac Severe Abdominal Verified 03/13/24 13:12 [From Bactrim] Pain trimethoprim [From Bactrim] AdvReac Severe Abdominal Verified 03/13/24 13:12 Pain Home Medications ?Medication ?Instructions ?Recorded ?Confirmed ?Last Taken ?Type lisinopril 10 mg tablet 15 mg PO DAILY 03/09/22 01/05/24 01/01/24 History ipratropium 20 mcg-albuterol 100 1 puff inhalation QID 12/28/22 01/05/24 12/28/23 07:30 History mcg/actuation mist for inhalation (Combivent Respimat) pravastatin 40 mg tablet 40 mg PO DAILY 12/28/22 01/05/24 01/01/24 History lactulose 10 gram/15 mL oral ml PO 02/13/24 Unknown History solution Physical Exam Vital Signs and Narrative: Vital Signs: Last Vital Signs Temp 98.7 F 03/13/24 17:44 Pulse 85 03/13/24 17:44 Resp 16 03/13/24 17:44 BP 114/66 03/13/24 17:44 Pulse Ox 97 03/13/24 17:44 O2 Del Method Room Air 03/13/24 17:44 BMI result Body Mass Index 17.0 Constitutional - Awake and Alert, No apparent distress Eyes - PERRLA, EOMI Cardiovascular - S1S2, RRR, No edema Respiratory - Normal lung expansion, Normal respiratory effort, No respiratory distress, CTA bilaterally Gastrointestinal - suprapubic ttp. ND; +BS; No rebound or guarding Extremities - no calf tenderness bilaterally, no swelling Skin - Warm/Dry Neurological - Alert & oriented x3 Psychological - Appropriate affect Results Labs Labs: Laboratory Results - last 24 hr 03/13/24 13:44 Lactic Acid 1.7 Magnesium 1.8 Lipase 7 L Urine Color Yellow Urine Appearance Turbid Urine pH 7.0 Ur Specific [facility] [facility] 1.025 Urine Protein 300 (3+) H Urine Glucose (UA) Negative Urine Ketones Trace Urine Blood Moderate (2+) H Urine Nitrite Negative Ur Leukocyte Esterase Large (3+) H Urine RBC >20 H Urine WBC >50 Ur Squamous Epith Cells 3-5 Urine Bacteria 4+ Hyaline Casts 0-2 Ur Random Sodium 83.0 Urine Creatinine 59.71 Imaging Radiologist's Impressions: Impressions Abdomen/Pelvis CT 03/13/24 14:35 IMPRESSION: Moderate to severe bilateral hydroureteronephrosis with soft tissue thickening at the ureteropelvic junctions and on the right at the bladder insertion. Numerous prominent retroperitoneal lymph nodes. Diffuse irregular bladder wall thickening extending to the bladder base. 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 PET/CT may be considered to assess further. Assessment and Plan (1) Acute kidney injury superimposed on CKD: Status: Acute (2) 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: Status: Acute (3) Acute UTI: Status: Acute Plan 78-year-old female with past medical history GERD, HLD, HTN, asthma, high-grade bladder CA s/p TURBT currently on chemotherapy, s/p bilateral nephrostomy tube placement on 01/15/2024 admitted for further management of NADEEN r/t bilateral hydroureternephrosis due to bladder cancer and UTI #NADEEN r/t bilateral hydroureternephrosis due to bladder cancer -underwent PCN removal 01/28 with gradually worsening creat since then -Creat 2.58, baseline around 1.2- ckd 3 at baseline -CT abdomen/pelvis shows moderate to severe bilateral hydroureteronephrosis with soft tissue thickening at the ureteropelvic junctions and on the right at the bladder insertion with numerous prominent retroperitoneal lymph nodes. There is also diffuse irregular bladder wall thickening ascending to the bladder base most likely representing multifocal bladder tumor with neoplastic involvement of the kidneys and ureters. -Continue IVF -urin studies pending -urology consult, nephro consult, oncology consult -tramadol for pain management (home dose) -Follow renal function/lytes #Acute UTI with sepsis -tachycardic, leukocytosis 12.4. No lactic acidosis. NADEEN due to obstructive uropathy. No severe sepsis/shock -UA with 3+ leukocytes, negative nitrites, 2+ blood, positive urinary sediment, 4+ bacteria -IV linezolid and zosyn-renally adjusted (initiated 03/13) -Follow cbc/cultures # moderate persistent asthma -no acute exacerbation -continue home inhalers, albuterol p.r.n. # hypertension -continue lisinopril # GERD -PPI # chronic constipation -continue home meds DVT prophylaxis-renally adjusted Lovenox Full code Patient requires inpatient stay at least 2 midnights for management of NADEEN related to obstructive uropathy from bladder cancer requiring IV fluid resuscitation, expert consultation, close monitoring of renal function electrolyte levels. She will also require broad-spectrum IV antibiotics given UTI with sepsis in immunocompromised patient with close monitoring of hemodynamics and cultures Quality Stroke Does the patient have a stroke diagnosis?: No VTE Prior VTE?: No VTE Risk Level:: Medical - moderate - high VTE Device Contraindication: Treatment Not Indicated VTE Drug Contraindication: N/A - Med Ordered
[2024-03-13 19:05] LABS: Osmolality Urine 300 mosm/kg (373-1093)
--- NOTE | 2024-03-13 19:46 | PHA.MEDREC ---
Pharmacy Consult ? Medication Reconciliation Pharmacy has completed the medication reconciliation. Confirmed medications with patient and help of intelligence analyst.
[2024-03-13] MEDS: Piperacillin Sodium/Tazobactam 2.25 GM in 0.9 % Sodium Chloride 50 ML IV (19:48)
[2024-03-13] MEDS: 0.9 % Sodium Chloride 1,000 ML 100 ML IVCONT (19:53)
[2024-03-13] MEDS: Enoxaparin Sodium 30 MG/0.3 ML SYRINGE SUBCUT (19:57)
[2024-03-13 20:01] VITALS: BP 109/67; PULSE 90; RESP 16; TEMP 37.2; O2SAT 96
[2024-03-13] MEDS: Linezolid/D5W 600 MG/300 ML PIGGYBACK 300 MG IV (20:27)
--- NOTE | 2024-03-13 21:35 | P.CNHO_ITS ---
Subjective - Subjective Chief complaint: Consult for: Bladder Cancer. Patient: known to practice within the last 3 years Consult date: 03/13/24 Requesting Physician: Shamika Saavedra. Primary Care Provider: Angeline Klein MD Family Provider: Angeline Sims Medical Summary: DIAGNOSIS: BLADDER CANCER. HPI - Consult Narrative Reason for consult: Consult for: Neutropenia. Narrative: Altaf Alba is a 78 year old lady, with high-grade bladder CA s/p TURBT currently on chemotherapy, s/p bilateral nephrostomy tube placement on 01/15/2024. 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 The patient is being followed by Dr. Palacios and Dr. Blair currently undergoing treatment with enfortumab vedotin a Nectin 4 directed antibody and microtubule inhibitor conjugate which was started on 12/27/2023. 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 Since then has had progressively worsening renal function and hyperkalemia and was referred to the ED for CT to see if there has been redevelopment of hydroureternephrosis. The patient reports longstanding dysuria and increased frequency/urgency with suprapubic pain that is chronic and unchanged. Has also had nausea and multiple episodes of vomiting over the last few days and reports anorexia. She does feel she takes in adequate fluids. No fevers, chills, diarrhea, melena, hematochezia, hemetemesis, lightheadedness, syncope, palpitations, sob, chest pain. On arrival, blood pressures soft improved to 114/66 with IVF and mildly tachycardic on arrival to 102. Afebrile. There is a leukocytosis of 12.4. She has a stable normocytic anemia with H/H 10.5/32.9%. Creatinine 2.58, BUN 36, baseline creatinine around 1.2 and has been progressively worsening since removal of the nephrostomy tubes on 01/28. Sodium 133, potassium 5.3, electrolytes otherwise normal. CT abdomen/pelvis shows moderate to severe bilateral hydroureteronephrosis with soft tissue thickening at the ureteropelvic junctions and on the right at the bladder insertion with numerous prominent retroperitoneal lymph nodes. There is also diffuse irregular bladder wall thickening ascending to the bladder base most likely representing multifocal bladder tumor with neoplastic involvement of the kidneys and ureters. She was admitted for further management of NADEEN r/t bilateral hydroureternephrosis due to bladder cancer and UTI [facility] Medical History: GERD, HLD, HTN, asthma, Chronic pain syndrome Osteoarthritis GERD (gastroesophageal reflux disease) History of COVID-19 Emphysema lung Hyperlipidemia Hypertension Asthma Hemorrhoids with complication UTI (urinary tract infection) Malignant neoplasm of urinary bladder Bladder mass Surgical History: History of ERCP History of esophagogastroduodenoscopy (EGD) History of hysterectomy with bilateral oophorectomy History of surgery Hx laparoscopic cholecystectomy Hx of colonoscopy Onset Date: 01/17/19 Hx of cystoscopy Family History: Father No problems noted. Mother Diabetes Brother Lung cancer. Social History: Living Situation History: Household Members: Family Housing: Apartment Do you presently have visiting nurse or other home services: Yes Tobacco History: Patient Tobacco Use Status: Former Tobacco user Years Smoked: 55 Review of Systems 2 Review of Systems: Feels rather fatigued. Complains of dizziness. No chest pain or shortness of breath. Has back pain. Yes all other systems are reviewed and are negative Review of Systems - Constitutional Reports system reviewed and no additional complaints, except as documented, Reports anorexia, Reports body ache(s), Reports fatigue, Reports fever(s), Reports lack of energy, Reports malaise, Reports poor appetite, Reports weight loss - Eyes Reports system reviewed and no additional complaints, except as documented - ENT Reports system reviewed and no additional complaints, except as documented - Cardiovascular Reports system reviewed and no additional complaints, except as documented - Respiratory Reports no additional respiratory complaints - Gastrointestinal Reports system reviewed and no additional complaints, except as documented - Genitourinary Reports no additional female genitourinary complaints - Musculoskeletal Reports system reviewed and no additional complaints, except as documented - Integumentary/Breasts Skin/Breast: Reports no additional skin complaints - Neurologic Reports system reviewed and no additional complaints, except as documented - Psychiatric Reports system reviewed and no additional complaints, except as documented - Endocrine Reports no additional endocrine complaints - Hematologic/Lymphatic Reports system reviewed and no additional complaints, except as documented - Allergic/Immunologic Reports system reviewed and no additional complaints, except as documented Oncology Screenings - ECOG Performance Status ECOG Performance Status: 2 [facility] Medical History: Medical History (Last Reviewed 03/16/24 @ 13:05 by Brigitte Covington PT) Asthma Bladder mass Chronic pain syndrome Emphysema lung GERD (gastroesophageal reflux disease) Hemorrhoids with complication History of COVID-19 Hyperlipidemia Hypertension Malignant neoplasm of urinary bladder Osteoarthritis UTI (urinary tract infection) Functional capacity: wheelchair bound Patient : No Family History: Family History (Last Reviewed 03/13/24 @ 18:49 by YAMIL Osorio) Father No problems noted. Mother Diabetes Brother Lung cancer Daughter Diabetes Surgical History: Surgical History (Last Reviewed 03/16/24 @ 13:05 by Brigitte Covington, PT) History of ERCP History of esophagogastroduodenoscopy (EGD) History of hysterectomy with bilateral oophorectomy History of surgery Hx laparoscopic cholecystectomy Hx of colonoscopy Onset Date: 01/17/19 Hx of cystoscopy Social History: Social History (Last Reviewed 03/13/24 @ 18:49 by YAMIL Osorio) Living Situation History: Household Members: Spouse Housing: Apartment Do you presently have visiting nurse or other home services: No Tobacco History: Patient Tobacco Use Status: Never used Tobacco Years Smoked: 55 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 Current occupation: rt handed Home Medications and Allergies Current Medications: Current Medications Acetaminophen (Acetaminophen 325 Mg Tablet) 650 mg PO Q6H PRN PRN Reason: Pain, Mild (Pain Scale 1-3), fever or headache Calcium Carbonate (Calcium Carbonate 750 Mg Tab.Chew) 750 mg PO Q4H PRN PRN Reason: Heartburn Enoxaparin Sodium (Enoxaparin Sodium 30 Mg/0.3 Ml Syringe) 30 mg SUBCUT Q24H [facility] Last Admin: 03/13/24 19:57 Dose: 30 mg Linezolid (Zyvox/D5w) 600 mg in 300 mls @ 300 mls/hr IV Q12H [facility] Last Admin: 03/13/24 20:27 Dose: 300 mls/hr Sodium Chloride (Ns) 1,000 mls @ 100 mls/hr IVCONT .Q10H [facility] Last Admin: 03/13/24 19:53 Dose: 100 mls/hr Piperacillin Sod/Tazobactam (Sod 2.25 gm/ Sodium Chloride) 50 mls @ 100 mls/hr IV Q8H [facility] Last Infusion: 03/13/24 20:25 Dose: Infused Magnesium Hydroxide (Milk Of Magnesia 30 Ml Oral.Susp) 30 ml PO DAILY PRN PRN Reason: Constipation Melatonin (Melatonin 3 Mg Tablet) 6 mg PO BEDTIME PRN PRN Reason: Insomnia Sodium Chloride (0.9 % Sodium Chloride Flush 3 Ml Syringe) 3 ml IVFLUSH QSHIFT [facility] Home Medications ?Medication ?Instructions ?Recorded ?Confirmed ?Type ipratropium 20 mcg-albuterol 100 1 puff inhalation QID 12/28/22 03/13/24 History mcg/actuation mist for inhalation (Combivent Respimat) pravastatin 40 mg tablet 40 mg PO DAILY 12/28/22 03/13/24 History albuterol sulfate 90 mcg/actuation 2 puff inhalation Q4H PRN 03/13/24 03/13/24 History aerosol inhaler shortness of breath or wheezing fluticasone propionate 110 1 puff inhalation BID 03/13/24 03/13/24 History mcg/actuation HFA aerosol inhaler hydrocortisone 2.5 % topical cream 1 appl HI BID PRN Hemorrhoids 03/13/24 03/13/24 History with perineal applicator hydroxyzine HCl 25 mg tablet 25 mg PO TID PRN itchiness 03/13/24 03/13/24 History linaclotide 145 mcg capsule 145 mcg PO DAILY 03/13/24 03/13/24 History (Linzess) Allergies Allergy/AdvReac Type Severity Reaction Status Date / Time aspirin [ASA] Allergy Intermediate RASH Verified 03/13/24 13:12 ibuprofen [Ibuprofen] Allergy Intermediate RASH Verified 03/13/24 13:12 morphine [MORPHINE] Allergy Intermediate ITCHING Verified 03/13/24 13:12 naproxen [From NAPROSYN] Allergy Intermediate RASH,N/V Verified 03/13/24 13:12 oxycodone [OXYCODONE] Allergy Intermediate NAUSEA & Verified 03/13/24 13:12 VOMITING, RASH sulfamethoxazole AdvReac Severe Abdominal Verified 03/13/24 13:12 [From Bactrim] Pain trimethoprim [From Bactrim] AdvReac Severe Abdominal Verified 03/13/24 13:12 Pain Physical Exam Vital signs: Vital Signs Temp 98.9 F 03/13/24 20:01 Pulse 90 03/13/24 20:01 Resp 16 03/13/24 20:01 BP 109/67 03/13/24 20:01 Pulse Ox 96 03/13/24 20:01 O2 Del Method Room Air 03/13/24 20:01 Intake & Output 03/13/24 03/13/24 03/14/24 06:59 18:59 06:59 Intake Total 1050 / 1100 50 / 1100 Balance 1050 / 1100 50 / 1100 Intake: Intake, IV Amount 1050 / 1100 50 / 1100 0.9 % Sodium Chloride 1,000 ml 1000 / 1000 @ 999 mls/hr IV .Q1H1M [facility] Rx#: [id number] Piperacillin Sodium/Tazobactam 50 / 50 2.25 gm In 0.9 % Sodium Chloride 50 ml @ 100 mls/hr IV Q8H [facility] Rx#:[id number] cefTRIAXone sodium 1 gm In 0.9 50 / 50 % Sodium Chloride 50 ml @ 100 mls/hr IV ONCE ONE Rx#: [id number] Other: Weight 44.906 kg Weight 44.906 kg Hem/Onc Consult Result - Labs CBC & Chem 7: 03/18/24 05:07 03/18/24 05:07 Labs: Urine 03/13/24 Range/Units 13:44 Urine Color Yellow Urine Appearance Turbid Urine pH 7.0 (5.0-9.0) Ur Specific [place] 1.025 (1.005-1.025) Urine Protein 300 (3+) H (Neg-Trace) mg/dL Urine Glucose (UA) Negative (Negative) mg/dL Assessment and Plan Patient Active problem list reviewed?: Yes (1) Bladder cancer Status: Acute Assessment and plan: 78 year old lady with high-grade bladder cancer that recurred in August 2022. She underwent TURBT on 08/23/2022 which revealed papillary urothelial carcinoma, high-grade. Repeat TURBT on 12/12/2022 revealed high-grade carcinoma with squamous differentiation, invasive into muscularis propria. Differential includes primary urothelial carcinoma and high-grade urothelial carcinoma with squamous differentiation. She started systemic therapy with carboplatin and gemcitabine She completed 6 cycles in April 2023. On 06/26/2023 she underwent cystoscopy, left side bladder wall showed evidence of disease recurrence. Biopsies were performed. Pathology revealed invasive carcinoma with squamous differentiation. PDL1 was expression was 1% TPS/CPS of 5. TMB 8.4 M/MB, MSI stable. Negative for FGFR 2/3, no actionable genetic alterations found. She received Pembrolizumab 200 mg IV every 3 weeks from 07/13/2023 until 12/20/2023. MRI pelvis performed 12/19/2023 shows several new polypoid a masses in the bladder, masslike thickening measuring 5.2 cm extending to bladder base. Severe right hydroureteronephrosis which is new compared to prior scan. All of this suspicious for progressive disease. She started enfortumab vedotin a Nectin 4 directed antibody and microtubule inhibitor conjugate on 12/27/2023. She is tolerating it well. Possible side effects such as rash, hyperglycemia, neuropathy, cytopenias and risk of pulmonary/eye toxicities were discussed. She underwent cystoscopy and TURBT of masses from the posterior and right anterior bladder wall on 01/15/24, both revealed high-grade papillary urothelial invasive carcinoma. She underwent internalization of bilateral nephrostomy tubes. She had bilateral stent placement with removal of PCN in 01/29/2024. 03/13, she presented to oncology with progressive renal dysfunction and mild hyperkalemia. She was symptomatic with nausea, generalized weakness as well as some abdominal pain. She was referred to emergency department on account of hypotension, for urgent scan to see if she has developed recurrent hydronephrosis. 03/13, CT abdomen pelvis revealed: Moderate to severe bilateral hydroureteronephrosis with soft tissue thickening at the ureteropelvic junctions and on the right at the bladder insertion. Numerous prominent retroperitoneal lymph nodes. Diffuse irregular bladder wall thickening extending to the bladder base. 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 PET/CT may be considered to assess further. PLAN: 1. UTI/Urosepsis: Sepsis due to complicated UTI - follow UCx/BCx, 03/13 - Started on linezolid + pip-herbert 2. Obstructive NADEEN/CKD3: hydroureteronephrosis due to progressive bladder CA. Urology consult pending. - continue IV fluids, - pain control with tramadol + IV hydromorphone - hold lisinopril 3. HyperK, mild. K : 5.3, 5.6. - Given 1 dose Lokelma + recheck BMP in AM. Nephrology consultation pending. - Lisinopril on hold. Thank you for the consult, I will follow along with you, CC: Angeline Klein. - Time Spent With Patient Time Spent with Patient (in minutes): 30
[2024-03-13 21:49] VITALS: BP 130/72; PULSE 89; RESP 18; TEMP 36.7; O2SAT 95
[2024-03-13] MEDS: ondansetron HCL 4 MG/2 ML VIAL IVPUSH (22:08)
[2024-03-13 22:11] VITALS: BMI 17.0
[2024-03-14 02:53] VITALS: BP 132/78; PULSE 81; RESP 20; TEMP 36.6; O2SAT 96
[2024-03-14] MEDS: Piperacillin Sodium/Tazobactam 2.25 GM in 0.9 % Sodium Chloride 50 ML IV ×3 (03:59→19:44)
[2024-03-14] MEDS: 0.9 % Sodium Chloride 1,000 ML 100 ML IVCONT ×2 (05:47→15:27)
[2024-03-14 06:13] LABS: MANUAL DIFF FLAG NO
[2024-03-14 06:17] LABS: Basophils Percent Auto 0.3 % (0-2); Hematocrit 29.7 % (37.0-47.0); Hemoglobin 9.3 g/dl (12.0-16.0); Imm Gran Abs Auto 0.04 X10*3/uL (0.00-0.03); Imm Gran Pct Auto 0.4 % (0.0-0.4); Lymphocytes Absolute Auto 1.3 X10*3/uL (1.2-4.9); Lymphocytes Percent Auto 14.6 % (20-40); Mean Corpuscular HGB Conc 31.3 g/dl (31.0-35.0); Mean Corpuscular Hemoglobin 28.4 pg (27.0-33.0); Mean Corpuscular Volume 90.8 fL (80.0-98.0); Mean Platelet Volume 9.6 fL (9.4-12.3); Monocytes Absolute Auto 1.1 X10*3/uL (0.1-1.2); Monocytes Percent Auto 12.1 % (2-11); Neutrophils Absolute Auto 6.6 x10*3/uL (2.0-8.3); Neutrophils Percent Auto 72.6 % (45-73); Platelet Count 420 X10*3/uL (160-400); Red Blood Count 3.27 X10*6/uL (4.20-5.50); Red Cell Distribution Width 16.1 % (11.0-16.0)
[2024-03-14 06:31] LABS: Anion Gap 15 (12-20); Blood Urea Nitrogen 34 mg/dL (9-16); Calcium 8.5 mg/dL (8.4-10.2); Carbon Dioxide 19 mmol/L (22-29); Chloride 109 mmol/L (96-108); Creatinine Clr Calc Pharmacy 14.5; Estimated Glomerular Filt Rate 21; Glucose Random 77 mg/dL (60-115); Potassium 5.6 mmol/L (3.3-5.1); Sodium 137 mmol/L (135-145)
[2024-03-14] MEDS: Linezolid/D5W 600 MG/300 ML PIGGYBACK 300 MG IV ×2 (06:37→18:05)
[2024-03-14 07:32] VITALS: BP 129/72; PULSE 84; RESP 12; TEMP 36.9; O2SAT 94
[2024-03-14] MEDS: Omeprazole 40 MG CAPSULE.DR PO (09:06)
[2024-03-14] MEDS: Pravastatin Sodium 20 MG TABLET PO (09:06)
[2024-03-14] MEDS: Sodium Zirconium Cyclosilicate 10 GM POWD.PACK PO (09:07)
[2024-03-14] MEDS: HYDROmorphone HCl 0.5 MG/0.5 ML SYRINGE 0.25 MG IVPUSH ×2 (09:26→19:41)
--- NOTE | 2024-03-14 10:22 | P.PNIM_ITS ---
Subjective Subjective Date of Service: 03/14/24 Interval History: This history was taken in Serbian from the patient. C/o severe suprapubic pain and nausea No fever Review of Systems Review of Systems: Yes all other systems are reviewed and are negative Physical Exam 2 Vital Signs: Vital Signs: Last Vital Signs Temp 98.5 F 03/14/24 07:32 Pulse 84 03/14/24 07:32 Resp 12 03/14/24 07:32 BP 129/72 03/14/24 07:32 Pulse Ox 94 03/14/24 07:32 O2 Del Method Room Air 03/14/24 07:32 BMI result Body Mass Index 17.0 Gen: in no acute distress, muscle wasting present HEENT: sclera anicteric, moist mucus membranes Neck: supple Lungs: clear to auscultation bilaterally Heart: regular rate and rhythm, no murmurs Abd: soft, suprapubic tenderness, non-distended Ext: no edema Skin: warm/well-perfused Neuro: alert and oriented x3, no focal findings Psych: appropriate affect Objective Data Active Medications Acetaminophen (Acetaminophen 325 Mg Tablet) 650 mg PO Q6H PRN PRN Reason: Pain, Mild (Pain Scale 1-3), fever or headache Albuterol Sulfate (Albuterol Sulfate 90 Mcg 8 Gm Inhaler) 2 puff INHALE Q4H PRN PRN Reason: shortness of breath or wheezing Calcium Carbonate (Calcium Carbonate 750 Mg Tab.Chew) 750 mg PO Q4H PRN PRN Reason: Heartburn Enoxaparin Sodium (Enoxaparin Sodium 30 Mg/0.3 Ml Syringe) 30 mg SUBCUT Q24H [facility] Last Admin: 03/13/24 19:57 Dose: 30 mg Documented By: MAC Fluticasone Propionate (Fluticasone Propionate 100 Mcg Blst.W.Dev) 1 puff INHALE RBID [facility] Last Admin: 03/14/24 09:25 Dose: Not Given Documented By: ULISES Non-Admin Reason: Med Not Available Hydrocortisone (Hydrocortisone 2.5 % Rectal Cr 30 Gm Tube) 1 appl SC BID PRN PRN Reason: Hemorrhoids Hydromorphone HCl (Hydromorphone Hcl 0.5 Mg/0.5 Ml Syringe) 0.25 mg IVPUSH Q3H PRN; Protocol PRN Reason: Pain, Severe (Pain Scale 7-10) Last Admin: 03/14/24 09:26 Dose: 0.25 mg Documented By: MACHELLE Hydroxyzine HCl (Hydroxyzine Hcl 25 Mg Tablet) 25 mg PO TID PRN PRN Reason: itchiness Linezolid (Zyvox/D5w) 600 mg in 300 mls @ 300 mls/hr IV Q12H [facility] Last Infusion: 03/14/24 08:15 Dose: Infused Documented By: MACHELLE Sodium Chloride (Ns) 1,000 mls @ 100 mls/hr IVCONT .Q10H [facility] Last Admin: 03/14/24 05:47 Dose: 100 mls/hr Documented By: JEMAL Piperacillin Sod/Tazobactam (Sod 2.25 gm/ Sodium Chloride) 50 mls @ 100 mls/hr IV Q8H [facility] Last Infusion: 03/14/24 04:29 Dose: Infused Documented By: JEMAL Magnesium Hydroxide (Milk Of Magnesia 30 Ml Oral.Susp) 30 ml PO DAILY PRN PRN Reason: Constipation Melatonin (Melatonin 3 Mg Tablet) 6 mg PO BEDTIME PRN PRN Reason: Insomnia Non-Formulary Medication (Linaclotide [Linzess]) 145 mcg PO DAILY [facility] Omeprazole (Omeprazole 40 Mg Capsule.Dr) 40 mg PO DAILY@0630 [facility] Last Admin: 03/14/24 09:06 Dose: 40 mg Documented By: MACHELLE Ondansetron HCl (Ondansetron Hcl 4 Mg/2 Ml Vial) 4 mg IVPUSH Q6H PRN PRN Reason: Nausea and Vomiting Last Admin: 03/13/24 22:08 Dose: 4 mg Documented By: JEMAL Pravastatin Sodium (Pravastatin Sodium 20 Mg Tablet) 20 mg PO DAILY [facility] Last Admin: 03/14/24 09:06 Dose: 20 mg Documented By: MACHELLE Sodium Chloride (0.9 % Sodium Chloride Flush 3 Ml Syringe) 3 ml IVFLUSH QSHIFT [facility] Last Admin: 03/14/24 07:09 Dose: Not Given Documented By: MACHELLE Non-Admin Reason: IV Running Tramadol HCl (Tramadol Hcl 50 Mg Tablet) 100 mg PO Q6H PRN PRN Reason: Breakthrough Pain, Moderate Labs 03/14/24 05:37 07/04/24 05:37 Labs: Laboratory Results - last 24 hr 03/13/24 03/14/24 13:44 05:37 MCV 90.8 MCH 28.4 MCHC 31.3 RDW 16.1 H Plt Count 420 H MPV 9.6 Immature Gran % (Auto) 0.4 Neut % (Auto) 72.6 Lymph % (Auto) 14.6 L Bland % (Auto) 12.1 H Eos % (Auto) 0.0 Baso % (Auto) 0.3 Lymph # (Auto) 1.3 Bland # (Auto) 1.1 Eos # (Auto) 0.0 Baso # (Auto) 0.0 Abs Immat Gran (auto) 0.04 H Absolute Neuts (auto) 6.6 Absolute Nucleated RBC 0.000 Nucleated RBC % (auto) 0.0 Anion Gap 15 Estim Creat Clear Calc 14.5 Estimated GFR 21 Random Glucose 77 Osmolality Cancelled Lactic Acid 1.7 Calcium 8.5 D Magnesium 1.8 Lipase 7 L Urine Color Yellow Urine Appearance Turbid Urine pH 7.0 Ur Specific [place] 1.025 Urine Protein 300 (3+) H Urine Glucose (UA) Negative Urine Ketones Trace Urine Blood Moderate (2+) H Urine Nitrite Negative Ur Leukocyte Esterase Large (3+) H Urine RBC >20 H Urine WBC >50 Ur Squamous Epith Cells 3-5 Urine Bacteria 4+ Hyaline Casts 0-2 Urine Osmolality 300 L Ur Random Sodium 83.0 Urine Creatinine 59.71 Microbiology Microbiology Results: Microbiology 03/13/24 Unknown Urine Culture - Preliminary Urine clean catch - Clean Catch Midstream No growth to date. Assessment and Plan (1) Bladder cancer: Status: Acute (2) Acute kidney injury superimposed on CKD: Status: Acute Assessment and Plan: d2 78yo F with high-grade bladder CA s/p TURBT on chemotherapy, s/p bilateral nephrostomy tubes removed with internazliation of indwelling stents 01/15/24, GERD, HLD, HTN, and asthma admitted for complicated UTI + NADEEN due to worsening hydroureteronephrosis from progressive CA sepsis due to complicated UTI - follow UCx/BCx, 03/13- linezolid + pip-herbert obstructive NADEEN/CKD3 hydroureteronephrosis due to progressive bladder CA - continue IV fluids, Urology + Nephrology consultation pending - pain control with tramadol + IV hydromorphone - hold lisinopril hyperK, mild - give 1 dose Lokelma + recheck BMP in AM HTN - hold lisinopril mod persistent asthma - continue home inhalers GERD - PPI HLD - statin chronic constipation - linaclotide VTE ppx - LMWH dispo - TBD In my clinical judgment, the patient requires continued inpatient hospitalization for the following reasons: IV ABX, NADEEN Total time managing care of this patient today: 45 minutes. Quality Stroke Does the patient have a stroke diagnosis?: No VTE Prior VTE?: No VTE Risk Level:: Medical - moderate - high VTE Device Contraindication: Treatment Not Indicated VTE Drug Contraindication: N/A - Med Ordered
--- NOTE | 2024-03-14 10:52 | MHC.CM.PN ---
CM MET WITH PT WITH A OPTICAL MANAGER PT REPORTS SHE LIVES WITH HER AND HAS DAILY [employer]. PT USES A ROLLATOR PT DECLINES TO COMPLETE A HCP PCP: STEPHANIE [facility]ATS IMM DELIVERED DCP: HOME RESUME [employer] TO TRANSPORT
[2024-03-14 15:15] VITALS: BP 123/61; PULSE 84; RESP 18; TEMP 36.7; O2SAT 95
[2024-03-14] MEDS: traMADoL HCL 50 MG TABLET 100 MG PO (15:22)
[2024-03-14] MEDS: Enoxaparin Sodium 30 MG/0.3 ML SYRINGE SUBCUT (18:04)
[2024-03-14] MEDS: ondansetron HCL 4 MG/2 ML VIAL IVPUSH (18:04)
[2024-03-14 18:53] VITALS: PULSE 73; RESP 16; O2SAT 92
[2024-03-14] MEDS: Fluticasone Propionate 100 MCG BLST.W.DEV 1 PUFF INHALE (18:53)
[2024-03-14 19:44] VITALS: BP 124/60; PULSE 84; RESP 16; TEMP 36.3; O2SAT 96
[2024-03-15] VITALS (7 sets, daily range): BP systolic 131–159; BP diastolic 64–85; PULSE 76–106; RESP 16–18; TEMP 36.2–37.1; O2SAT 89–97; BMI 17.0
[2024-03-15] MEDS: 0.9 % Sodium Chloride 1,000 ML 100 ML IVCONT ×2 (01:15→12:44)
[2024-03-15] MEDS: Piperacillin Sodium/Tazobactam 2.25 GM in 0.9 % Sodium Chloride 50 ML IV ×3 (03:25→19:57)
[2024-03-15] MEDS: Linezolid/D5W 600 MG/300 ML PIGGYBACK 300 MG IV (06:18)
[2024-03-15] MEDS: Omeprazole 40 MG CAPSULE.DR PO (06:19)
[2024-03-15 06:33] LABS: Hematocrit 28.6 % (37.0-47.0); Mean Corpuscular HGB Conc 31.5 g/dl (31.0-35.0); Mean Corpuscular Hemoglobin 28.6 pg (27.0-33.0); Mean Corpuscular Volume 90.8 fL (80.0-98.0); Mean Platelet Volume 9.8 fL (9.4-12.3); Platelet Count 421 X10*3/uL (160-400); Red Blood Count 3.15 X10*6/uL (4.20-5.50); Red Cell Distribution Width 16.2 % (11.0-16.0); White Blood Count 9.1 X10*3/uL (4.8-10.8)
[2024-03-15 06:47] LABS: Anion Gap 14 (12-20); Blood Urea Nitrogen 27 mg/dL (9-16); Calcium 8.2 mg/dL (8.4-10.2); Carbon Dioxide 17 mmol/L (22-29); Chloride 112 mmol/L (96-108); Creatinine Clr Calc Pharmacy 14.7; Estimated Glomerular Filt Rate 21; Glucose Random 61 mg/dL (60-115); Potassium 4.8 mmol/L (3.3-5.1); Sodium 138 mmol/L (135-145)
[2024-03-15] MEDS: Pravastatin Sodium 20 MG TABLET PO (07:40)
[2024-03-15] MEDS: Fluticasone Propionate 100 MCG BLST.W.DEV 1 PUFF INHALE ×2 (07:59→19:08)
--- NOTE | 2024-03-15 08:30 | PM.CNNEP ---
History of Present Illness Reason for Consult Consult date: 03/15/24 Reason for consult: NADEEN Chief Complaint Chief complaint: NADEEN, UTI, bilateral hydroureternephrosis History of Present Illness Narrative: 78-year-old female with a history GERD, HLD, HTN, asthma, high-grade bladder CA s/p TURBT currently on chemotherapy, s/p bilateral nephrostomy tube placement on 01/15/2024 presenting to ED from Oncology for hypotension, abdominal pain and vomiting in office [employer]. The patient is being followed by Dr. Palacios and Dr. Blair currently undergoing treatment with enfortumab vedotin a Nectin 4 directed antibody and microtubule inhibitor conjugate which was started on 12/27/2023. 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 Since then has had progressively worsening renal function and hyperkalemia and was referred to the ED for CT to see if there has been redevelopment of hydroureternephrosis. The patient reports longstanding dysuria and increased frequency/urgency with suprapubic pain that is chronic and unchanged. Has also had nausea and multiple episodes of vomiting over the last few days and reports anorexia. She does feel she takes in adequate fluids. No fevers, chills, diarrhea, melena, hematochezia, hemetemesis, lightheadedness, syncope, palpitations, sob, chest pain. On arrival, blood pressures soft improved to 114/66 with IVF and mildly tachycardic on arrival to 102. Afebrile. There is a leukocytosis of 12.4. She has a stable normocytic anemia with H/H 10.5/32.9%. Creatinine 2.58, BUN 36, baseline creatinine around 1.2 and has been progressively worsening since removal of the nephrostomy tubes on 01/28. Sodium 133, potassium 5.3, electrolytes otherwise normal. CT abdomen/pelvis shows moderate to severe bilateral hydroureteronephrosis with soft tissue thickening at the ureteropelvic junctions and on the right at the bladder insertion with numerous prominent retroperitoneal lymph nodes. There is also diffuse irregular bladder wall thickening ascending to the bladder base most likely representing multifocal bladder tumor with neoplastic involvement of the kidneys and ureters. She will be admitted for further management of NADEEN r/t bilateral hydroureternephrosis due to bladder cancer and UTI Baseline CKD with acreatinine of 1.2 to 1.5 Now with NADEEN - Cr 2.26 with Hyperchloremic metabolic acidosis and hyperkalemia Review of Systems Constitutional: Denies chills Cardiovascular: Denies chest pain, Denies leg edema and Denies dyspnea Respiratory: Denies dyspnea Gastrointestinal: Denies GI cramping, Denies nausea and Denies vomiting Genitourinary: Reports urinary frequency and Reports other (decreased urine output) [facility] Past Medical History Medical History Chronic pain syndrome Osteoarthritis GERD (gastroesophageal reflux disease) History of COVID-19 Emphysema lung Hyperlipidemia Hypertension Asthma Hemorrhoids with complication UTI (urinary tract infection) Malignant neoplasm of urinary bladder Bladder mass Family History Family History Father No problems noted. Mother Diabetes Brother Lung cancer Daughter Diabetes Surgical History Surgical History History of surgery History of ERCP Hx laparoscopic cholecystectomy Hx of cystoscopy History of hysterectomy with bilateral oophorectomy Hx of colonoscopy (01/17/19) History of esophagogastroduodenoscopy (EGD) Social History Social History Household Members: Spouse Housing: Apartment Do you presently have visiting nurse or other home services: No Alcohol intake: never Patient Tobacco Use Status: Never used Tobacco Years Smoked: 55 Smoked in Last 30 Days: No Use of substances other than those prescribed or required for medical reasons: No Currently Displaying Signs/Symptoms of Drug Intoxication Withdrawal: No Have you been hit, kicked, punched, or otherwise hurt by someone within the past year? If so, by whom?: No Do you feel safe in your current relationship?: Yes Is there a partner from a previous relationship who is making you feel unsafe now?: No Are you made to feel afraid or neglected: No Advance Directives: No Do you have a plan to hurt others: No Plan Recently lost weight without trying: Yes How much weight loss: Unsure Eating poorly because of decreased appetite: Yes Nutrition screen score: 5 Nutrition Risks: Anorexia and Difficulty swallowing Patient : No : No Poor oral hygiene: No service: No Current occupational status: retired Current occupation: rt handed Meds Allergies Allergy/AdvReac Type Severity Reaction Status Date / Time aspirin [ASA] Allergy Intermediate RASH Verified 03/13/24 13:12 ibuprofen [Ibuprofen] Allergy Intermediate RASH Verified 03/13/24 13:12 morphine [MORPHINE] Allergy Intermediate ITCHING Verified 03/13/24 13:12 naproxen [From NAPROSYN] Allergy Intermediate RASH,N/V Verified 03/13/24 13:12 oxycodone [OXYCODONE] Allergy Intermediate NAUSEA & Verified 03/13/24 13:12 VOMITING, RASH sulfamethoxazole AdvReac Severe Abdominal Verified 03/13/24 13:12 [From Bactrim] Pain trimethoprim [From Bactrim] AdvReac Severe Abdominal Verified 03/13/24 13:12 Pain Active Medications: Current Medications Acetaminophen (Acetaminophen 325 Mg Tablet) 650 mg PO Q6H PRN PRN Reason: Pain, Mild (Pain Scale 1-3), fever or headache Albuterol Sulfate (Albuterol Sulfate 90 Mcg 8 Gm Inhaler) 2 puff INHALE Q4H PRN PRN Reason: shortness of breath or wheezing Calcium Carbonate (Calcium Carbonate 750 Mg Tab.Chew) 750 mg PO Q4H PRN PRN Reason: Heartburn Enoxaparin Sodium (Enoxaparin Sodium 30 Mg/0.3 Ml Syringe) 30 mg SUBCUT Q24H [facility] Last Admin: 03/14/24 18:04 Dose: 30 mg Fluticasone Propionate (Fluticasone Propionate 100 Mcg Blst.W.Dev) 1 puff INHALE RBID [facility] Last Admin: 03/15/24 07:59 Dose: 1 puff Hydrocortisone (Hydrocortisone 2.5 % Rectal Cr 30 Gm Tube) 1 appl NM BID PRN PRN Reason: Hemorrhoids Hydromorphone HCl (Hydromorphone Hcl 0.5 Mg/0.5 Ml Syringe) 0.25 mg IVPUSH Q3H PRN; Protocol PRN Reason: Pain, Severe (Pain Scale 7-10) Last Admin: 03/14/24 19:41 Dose: 0.25 mg Hydroxyzine HCl (Hydroxyzine Hcl 25 Mg Tablet) 25 mg PO TID PRN PRN Reason: itchiness Sodium Chloride (Ns) 1,000 mls @ 100 mls/hr IVCONT .Q10H [facility] Last Admin: 03/15/24 01:15 Dose: 100 mls/hr Piperacillin Sod/Tazobactam (Sod 2.25 gm/ Sodium Chloride) 50 mls @ 100 mls/hr IV Q8H [facility] Last Infusion: 03/15/24 03:55 Dose: Infused Linezolid (Linezolid 600 Mg Tablet) 600 mg PO Q12H [facility] Magnesium Hydroxide (Milk Of Magnesia 30 Ml Oral.Susp) 30 ml PO DAILY PRN PRN Reason: Constipation Melatonin (Melatonin 3 Mg Tablet) 6 mg PO BEDTIME PRN PRN Reason: Insomnia Non-Formulary Medication (Linaclotide [Linzess]) 145 mcg PO DAILY [facility] Omeprazole (Omeprazole 40 Mg Capsule.Dr) 40 mg PO DAILY@0630 [facility] Last Admin: 03/15/24 06:19 Dose: 40 mg Ondansetron HCl (Ondansetron Hcl 4 Mg/2 Ml Vial) 4 mg IVPUSH Q6H PRN PRN Reason: Nausea and Vomiting Last Admin: 03/14/24 18:04 Dose: 4 mg Pravastatin Sodium (Pravastatin Sodium 20 Mg Tablet) 20 mg PO DAILY [facility] Last Admin: 03/15/24 07:40 Dose: 20 mg Sodium Chloride (0.9 % Sodium Chloride Flush 3 Ml Syringe) 3 ml IVFLUSH QSHIFT [facility] Last Admin: 03/15/24 07:03 Dose: Not Given Tramadol HCl (Tramadol Hcl 50 Mg Tablet) 100 mg PO Q6H PRN PRN Reason: Breakthrough Pain, Moderate Last Admin: 03/14/24 15:22 Dose: 100 mg Home Medications ?Medication ?Instructions ?Recorded ?Confirmed ?Last Taken ?Type lisinopril 10 mg tablet 15 mg PO DAILY 03/09/22 03/13/24 03/12/24 History ipratropium 20 mcg-albuterol 100 1 puff inhalation QID 12/28/22 03/13/24 03/12/24 History mcg/actuation mist for inhalation (Combivent Respimat) pravastatin 40 mg tablet 40 mg PO DAILY 12/28/22 03/13/24 03/12/24 History albuterol sulfate 90 mcg/actuation 2 puff inhalation Q4H PRN 03/13/24 03/13/24 03/12/24 History aerosol inhaler shortness of breath or wheezing fluticasone propionate 110 1 puff inhalation BID 03/13/24 03/13/24 03/12/24 History mcg/actuation HFA aerosol inhaler hydrocortisone 2.5 % topical cream 1 appl NM BID PRN Hemorrhoids 03/13/24 03/13/24 03/12/24 History with perineal applicator hydroxyzine HCl 25 mg tablet 25 mg PO TID PRN itchiness 03/13/24 03/13/24 Unknown History linaclotide 145 mcg capsule 145 mcg PO DAILY 03/13/24 03/13/24 03/12/24 History (Linzess) Physical Exam Vital Signs: Last Vital Signs Temp 97.2 F 03/15/24 07:52 Pulse 87 03/15/24 08:00 Resp 17 03/15/24 08:00 BP 159/78 H 03/15/24 07:52 Pulse Ox 96 03/15/24 07:52 O2 Del Method Room Air 03/15/24 07:52 BMI result Body Mass Index 17.0 Awake. Comfortable. Neck is supple. Mucosa moist. Lungs bilateral scattered rhonchi. Heart S1-S2 heard no gallop. Abdomen soft. Extremities no edema. No involuntary movements. No myoclonus. Results Lab Results 03/15/24 05:42 03/15/24 05:42 Lab results: Chemistry 03/14/24 03/15/24 05:37 05:42 Sodium 137 138 Potassium 5.6 H 4.8 Carbon Dioxide 19 L 17 L BUN 34 H 27 H Creatinine 2.30 H 2.26 H Calcium 8.5 D 8.2 L Hematology 03/14/24 03/15/24 05:37 05:42 WBC 9.0 9.1 Hgb 9.3 L 9.0 L Plt Count 420 H 421 H Urinalysis 03/13/24 13:44 Urine Color Yellow Urine Appearance Turbid Urine pH 7.0 Ur Specific [place] 1.025 Urine Protein 300 (3+) H Urine Glucose (UA) Negative Urine Ketones Trace Urine Blood Moderate (2+) H Urine Nitrite Negative Ur Leukocyte Esterase Large (3+) H Urine RBC >20 H Urine WBC >50 Ur Squamous Epith Cells 3-5 Hyaline Casts 0-2 Urine Studies 03/13/24 13:44 Urine Osmolality 300 L Urine Creatinine 59.71 Assessment and Plan (1) Bladder cancer: Status: Acute (2) Acute kidney injury superimposed on CKD: Status: Acute Plan #NADEEN super imposed on CKD 3 Primarily due to obstructive uropathy r/t bilateral hydroureternephrosis due to bladder cancer There could a component of Hypoperfusion due to low BP and volume depletion while on ACEi Hyperchloremic Metabolic acidosis in a setting of NADEEN/Obstruction Anemia Suggest -Continue IVF with NS Keep I > O DC Liisnopril Avoid hypotension Lokelma PRN Add Sodium BIcarbonate 650 mg PO TID x 3 days Watch urine output Urology follow up No indication for dialysis Concur with other medical management Procedures Date of Service Date of Service: 03/15/24
--- NOTE | 2024-03-15 09:16 | PM.HEMONCPN ---
Medical Summary - Medical Summary Date of Service: 03/15/24 Chief complaint: Abdominal pain Primary Care Provider: Angeline Klein MD Medical Summary: DIAGNOSIS: BLADDER CANCER. Interval History Interval history: Altaf Alba is a 78 year old lady, with high-grade bladder CA s/p TURBT currently on chemotherapy, s/p bilateral nephrostomy tube placement on 01/15/2024. She presented to ED from Oncology yesterday, for hypotension, abdominal pain and vomiting in office [employer]. The patient is being followed by Dr. Palacios and Dr. Blair currently undergoing treatment with enfortumab vedotin a Nectin 4 directed antibody and microtubule inhibitor conjugate which was started on 12/27/2023. 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 Since then has had progressively worsening renal function and hyperkalemia and was referred to the ED for CT to see if there has been redevelopment of hydroureternephrosis. The patient reports longstanding dysuria and increased frequency/urgency with suprapubic pain that is chronic and unchanged. Has also had nausea and multiple episodes of vomiting over the last few days and reports anorexia. She does feel she takes in adequate fluids. No fevers, chills, diarrhea, melena, hematochezia, hemetemesis, lightheadedness, syncope, palpitations, sob, chest pain. On arrival, blood pressures soft improved to 114/66 with IVF and mildly tachycardic on arrival to 102. Afebrile. There is a leukocytosis of 12.4. She has a stable normocytic anemia with H/H 10.5/32.9%. Creatinine 2.58, BUN 36, baseline creatinine around 1.2 and has been progressively worsening since removal of the nephrostomy tubes on 01/28. Sodium 133, potassium 5.3, electrolytes otherwise normal. CT abdomen/pelvis shows moderate to severe bilateral hydroureteronephrosis with soft tissue thickening at the ureteropelvic junctions and on the right at the bladder insertion with numerous prominent retroperitoneal lymph nodes. There is also diffuse irregular bladder wall thickening ascending to the bladder base most likely representing multifocal bladder tumor with neoplastic involvement of the kidneys and ureters. She was admitted for further management of NADEEN r/t bilateral hydroureternephrosis due to bladder cancer and UTI She is feeling a bit better today. Continues to have lower abdominal discomfort. Review of Systems: Review of Systems - Constitutional Reports as per HPI - Neurologic Reports no additional neurologic complaints [facility] Medical History: Medical History (Last Reviewed 03/13/24 @ 18:49 by YAMIL Osorio) Asthma Bladder mass Chronic pain syndrome Emphysema lung GERD (gastroesophageal reflux disease) Hemorrhoids with complication History of COVID-19 Hyperlipidemia Hypertension Malignant neoplasm of urinary bladder Osteoarthritis UTI (urinary tract infection) Functional capacity: wheelchair bound Family History: Family History (Last Reviewed 03/13/24 @ 18:49 by YAMIL Osorio) Father No problems noted. Mother Diabetes Brother Lung cancer Daughter Diabetes Surgical History: Surgical History (Last Reviewed 03/13/24 @ 18:49 by YAMIL Osorio) History of ERCP History of esophagogastroduodenoscopy (EGD) History of hysterectomy with bilateral oophorectomy History of surgery Hx laparoscopic cholecystectomy Hx of colonoscopy Onset Date: 01/17/19 Hx of cystoscopy Social History: Social History (Last Reviewed 03/13/24 @ 18:49 by YAMIL Osorio) Living Situation History: Household Members: Spouse Housing: Apartment Do you presently have visiting nurse or other home services: No Alcohol History Details: 1. How often do you have a drink containing alcohol?: a. Never AUDIT-C Alcohol total score: 0 Currently Displaying Signs/Symptoms of Alcohol Withdrawal: No Tobacco History: Patient Tobacco Use Status: Never used Tobacco Years Smoked: 55 Smoked in Last 30 Days: No Substance Use History: Use of substances other than those prescribed or required for medical reasons: No Currently Displaying Signs/Symptoms of Drug Intoxication Withdrawal: No Domestic Abuse History: Have you been hit, kicked, punched, or otherwise hurt by someone within the past year? If so, by whom?: No Do you feel safe in your current relationship?: Yes Is there a partner from a previous relationship who is making you feel unsafe now?: No Are you made to feel afraid or neglected: No Advance Directives: Advance Directives: No Advance Directives Information Provided: Advance Directives Information Provided comment: Declined Homicidal Assessment: Do you have a plan to hurt others: No Plan Nutrition Assessment: Recently lost weight without trying: Yes How much weight loss: Unsure Eating poorly because of decreased appetite: Yes Nutrition screen score: 5 Nutrition Risks: Anorexia Nutrition Risks: Difficulty swallowing Patient : No : No Poor oral hygiene: No 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 Current occupation: rt handed Home Medications and Allergies Current Medications: Current Medications Acetaminophen (Acetaminophen 325 Mg Tablet) 650 mg PO Q6H PRN PRN Reason: Pain, Mild (Pain Scale 1-3), fever or headache Albuterol Sulfate (Albuterol Sulfate 90 Mcg 8 Gm Inhaler) 2 puff INHALE Q4H PRN PRN Reason: shortness of breath or wheezing Calcium Carbonate (Calcium Carbonate 750 Mg Tab.Chew) 750 mg PO Q4H PRN PRN Reason: Heartburn Enoxaparin Sodium (Enoxaparin Sodium 30 Mg/0.3 Ml Syringe) 30 mg SUBCUT Q24H [facility] Last Admin: 03/14/24 18:04 Dose: 30 mg Fluticasone Propionate (Fluticasone Propionate 100 Mcg Blst.W.Dev) 1 puff INHALE RBID [facility] Last Admin: 03/15/24 07:59 Dose: 1 puff Hydrocortisone (Hydrocortisone 2.5 % Rectal Cr 30 Gm Tube) 1 appl DC BID PRN PRN Reason: Hemorrhoids Hydromorphone HCl (Hydromorphone Hcl 0.5 Mg/0.5 Ml Syringe) 0.25 mg IVPUSH Q3H PRN; Protocol PRN Reason: Pain, Severe (Pain Scale 7-10) Last Admin: 03/14/24 19:41 Dose: 0.25 mg Hydroxyzine HCl (Hydroxyzine Hcl 25 Mg Tablet) 25 mg PO TID PRN PRN Reason: itchiness Sodium Chloride (Ns) 1,000 mls @ 100 mls/hr IVCONT .Q10H [facility] Last Admin: 03/15/24 01:15 Dose: 100 mls/hr Piperacillin Sod/Tazobactam (Sod 2.25 gm/ Sodium Chloride) 50 mls @ 100 mls/hr IV Q8H [facility] Last Infusion: 03/15/24 03:55 Dose: Infused Linezolid (Linezolid 600 Mg Tablet) 600 mg PO Q12H [facility] Magnesium Hydroxide (Milk Of Magnesia 30 Ml Oral.Susp) 30 ml PO DAILY PRN PRN Reason: Constipation Melatonin (Melatonin 3 Mg Tablet) 6 mg PO BEDTIME PRN PRN Reason: Insomnia Non-Formulary Medication (Linaclotide [Linzess]) 145 mcg PO DAILY [facility] Omeprazole (Omeprazole 40 Mg Capsule.Dr) 40 mg PO DAILY@0630 [facility] Last Admin: 03/15/24 06:19 Dose: 40 mg Ondansetron HCl (Ondansetron Hcl 4 Mg/2 Ml Vial) 4 mg IVPUSH Q6H PRN PRN Reason: Nausea and Vomiting Last Admin: 03/14/24 18:04 Dose: 4 mg Pravastatin Sodium (Pravastatin Sodium 20 Mg Tablet) 20 mg PO DAILY [facility] Last Admin: 03/15/24 07:40 Dose: 20 mg Sodium Chloride (0.9 % Sodium Chloride Flush 3 Ml Syringe) [facility] Last Admin: 03/15/24 07:03 Dose: Not Given Tramadol HCl (Tramadol Hcl 50 Mg Tablet) 100 mg PO Q6H PRN PRN Reason: Breakthrough Pain, Moderate Last Admin: 03/14/24 15:22 Dose: 100 mg Home Medications ?Medication ?Instructions ?Recorded ?Confirmed ?Type lisinopril 10 mg tablet 15 mg PO DAILY 03/09/22 03/13/24 History ipratropium 20 mcg-albuterol 100 1 puff inhalation QID 12/28/22 03/13/24 History mcg/actuation mist for inhalation (Combivent Respimat) pravastatin 40 mg tablet 40 mg PO DAILY 12/28/22 03/13/24 History albuterol sulfate 90 mcg/actuation 2 puff inhalation Q4H PRN 03/13/24 03/13/24 History aerosol inhaler shortness of breath or wheezing fluticasone propionate 110 1 puff inhalation BID 03/13/24 03/13/24 History mcg/actuation HFA aerosol inhaler hydrocortisone 2.5 % topical cream 1 appl DC BID PRN Hemorrhoids 03/13/24 03/13/24 History with perineal applicator hydroxyzine HCl 25 mg tablet 25 mg PO TID PRN itchiness 03/13/24 03/13/24 History linaclotide 145 mcg capsule 145 mcg PO DAILY 03/13/24 03/13/24 History (Linzess) Allergies Allergy/AdvReac Type Severity Reaction Status Date / Time aspirin [ASA] Allergy Intermediate RASH Verified 03/13/24 13:12 ibuprofen [Ibuprofen] Allergy Intermediate RASH Verified 03/13/24 13:12 morphine [MORPHINE] Allergy Intermediate ITCHING Verified 03/13/24 13:12 naproxen [From NAPROSYN] Allergy Intermediate RASH,N/V Verified 03/13/24 13:12 oxycodone [OXYCODONE] Allergy Intermediate NAUSEA & Verified 03/13/24 13:12 VOMITING, RASH sulfamethoxazole AdvReac Severe Abdominal Verified 03/13/24 13:12 [From Bactrim] Pain trimethoprim [From Bactrim] AdvReac Severe Abdominal Verified 03/13/24 13:12 Pain Exam Vital signs: Vital Signs Temp 97.2 F 03/15/24 07:52 Pulse 87 03/15/24 08:00 Resp 17 03/15/24 08:00 BP 159/78 H 03/15/24 07:52 Pulse Ox 96 03/15/24 07:52 O2 Del Method Room Air 03/15/24 07:52 Intake & Output 03/14/24 03/15/24 03/15/24 18:59 06:59 18:59 Intake Total 1496.667 / 3516.667 2020 / 3516.667 300 / 300 Balance 1496.667 / 3516.667 2020 / 3516.667 300 / 300 Intake: Intake, Oral Amount 180 / 820 640 / 820 Intake, IV Amount 1316.667 / 2696.667 1380 / 2696.667 300 / 300 Linezolid/D5W 600 mg In 300 ml 300 / 600 300 / 600 300 / 300 @ 300 mls/hr IV Q12H [facility] Rx#: [id number] Piperacillin Sodium/Tazobactam 50 / 150 100 / 150 2.25 gm In 0.9 % Sodium Chloride 50 ml @ 100 mls/hr IV Q8H [facility] Rx#:[id number] 0.9 % Sodium Chloride 1,000 ml 966.667 / 1946.667 980 / 1946.667 @ 100 mls/hr IVCONT .Q10H [facility] Rx#:[id number] Other: Breakfast % Eaten 25% Lunch % Eaten 0% Eating (Feeding) Ability Independent Number of Unmeasured Voids 2 1 Urine Bathroom Bathroom Urine Color Yellow Last Bowel Movement 07/04/24 Weight 44.9 kg BMI result Body Mass Index 17.0 - Constitutional Present: no acute distress, chronically ill appearing - Routine HEENT Exam Head: Present: normal inspection Eye: Present: PERRL - Routine Neck Exam Absent: lymphadenopathy - Routine Chest/Breast/Axilla Exam Axillae: Absent: mass - Routine Respiratory Exam Absent: accessory muscle use - Routine Cardiovascular Exam Cardiovascular: Present: RRR, S1, S2 - Routine Abdominal Exam Present: soft Data - Labs CBC & Chem 7: 03/15/24 05:42 03/15/24 05:42 Labs: Laboratory Last Values WBC 9.1 X10*3/uL (4.8-10.8) 03/15/24 05:42 RBC 3.15 X10*6/uL (4.20-5.50) L 03/15/24 05:42 Hgb 9.0 g/dl (12.0-16.0) L 03/15/24 05:42 Hct 28.6 % (37.0-47.0) L 03/15/24 05:42 MCV 90.8 fL (80.0-98.0) 03/15/24 05:42 MCH 28.6 pg (27.0-33.0) 03/15/24 05:42 MCHC 31.5 g/dl (31.0-35.0) 03/15/24 05:42 RDW 16.2 % (11.0-16.0) H 03/15/24 05:42 Plt Count 421 X10*3/uL (160-400) H 03/15/24 05:42 MPV 9.8 fL (9.4-12.3) 03/15/24 05:42 Immature Gran % (Auto) 0.4 % (0.0-0.4) 03/14/24 05:37 Neut % (Auto) 72.6 % (45-73) 03/14/24 05:37 Lymph % (Auto) 14.6 % (20-40) L 03/14/24 05:37 Miner % (Auto) 12.1 % (2-11) H 03/14/24 05:37 Eos % (Auto) 0.0 % (0-4) 03/14/24 05:37 Baso % (Auto) 0.3 % (0-2) 03/14/24 05:37 Lymph # (Auto) 1.3 X10*3/uL (1.2-4.9) 03/14/24 05:37 Miner # (Auto) 1.1 X10*3/uL (0.1-1.2) 03/14/24 05:37 Eos # (Auto) 0.0 X10*3/uL (0.0-0.4) 03/14/24 05:37 Baso # (Auto) 0.0 X10*3/uL (0.0-0.2) 03/14/24 05:37 Abs Immat Gran (auto) 0.04 X10*3/uL (0.00-0.03) H 03/14/24 05:37 Absolute Neuts (auto) 6.6 x10*3/uL (2.0-8.3) 03/14/24 05:37 Absolute Nucleated RBC 0.000 X10*3/uL (0.0-0.012) 03/15/24 05:42 Nucleated RBC % (auto) 0.0 /100WBC (0.0-0.2) 03/15/24 05:42 Sodium 138 mmol/L (135-145) 03/15/24 05:42 Potassium 4.8 mmol/L (3.3-5.1) 03/15/24 05:42 Chloride 112 mmol/L (96-108) H 03/15/24 05:42 Carbon Dioxide 17 mmol/L (22-29) L 03/15/24 05:42 Anion Gap 14 (12-20) 03/15/24 05:42 BUN 27 mg/dL (9-16) H 03/15/24 05:42 Creatinine 2.26 mg/dL (0.5-1.4) H 03/15/24 05:42 Estim Creat Clear Calc 14.7 03/15/24 05:42 Estimated GFR 21 03/15/24 05:42 Random Glucose 61 mg/dL (60-115) 03/15/24 05:42 Osmolality Cancelled 03/13/24 13:44 Lactic Acid 1.7 mmol/L (0.5-2.0) 03/13/24 13:44 Calcium 8.2 mg/dL (8.4-10.2) L 03/15/24 05:42 Magnesium 1.8 mg/dL (1.6-2.6) 03/13/24 13:44 Lipase 7 U/L (8-78) L 03/13/24 13:44 Urine Color Yellow 03/13/24 13:44 Urine Appearance Turbid 03/13/24 13:44 Urine pH 7.0 (5.0-9.0) 03/13/24 13:44 Ur Specific [place] 1.025 (1.005-1.025) 03/13/24 13:44 Urine Protein 300 (3+) mg/dL (Neg-Trace) H 03/13/24 13:44 Urine Glucose (UA) Negative mg/dL (Negative) 03/13/24 13:44 Urine Ketones Trace mg/dL (Negative) 03/13/24 13:44 Urine Blood Moderate (2+) (Negative) H 03/13/24 13:44 Urine Nitrite Negative (Negative) 03/13/24 13:44 Ur Leukocyte Esterase Large (3+) (Negative) H 03/13/24 13:44 Urine RBC >20 /HPF (0-2) H 03/13/24 13:44 Urine WBC >50 /HPF (0-5) 03/13/24 13:44 Ur Squamous Epith Cells 3-5 /HPF (0-2) 03/13/24 13:44 Urine Bacteria 4+ (None Seen) 03/13/24 13:44 Hyaline Casts 0-2 /LPF (0-2) 03/13/24 13:44 Urine Osmolality 300 mosm/kg (373-1093) L 03/13/24 13:44 Ur Random Sodium 83.0 mmol/L 03/13/24 13:44 Urine Creatinine 59.71 mg/dL 03/13/24 13:44 - Imaging Radiologist's impression: ITS Impressions Abdomen/Pelvis CT 03/13/24 14:35 IMPRESSION: Moderate to severe bilateral hydroureteronephrosis with soft tissue thickening at the ureteropelvic junctions and on the right at the bladder insertion. Numerous prominent retroperitoneal lymph nodes. Diffuse irregular bladder wall thickening extending to the bladder base. 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 PET/CT may be considered to assess further. Assessment and Plan Patient Active problem list reviewed?: Yes (1) Bladder cancer Status: Acute Assessment and plan: 78 year old lady with high-grade bladder cancer that recurred in August 2022. She underwent TURBT on 08/23/2022 which revealed papillary urothelial carcinoma, high-grade. Repeat TURBT on 12/12/2022 revealed high-grade carcinoma with squamous differentiation, invasive into muscularis propria. Differential includes primary urothelial carcinoma and high-grade urothelial carcinoma with squamous differentiation. She started systemic therapy with carboplatin and gemcitabine She completed 6 cycles in April 2023. On 06/26/2023 she underwent cystoscopy, left side bladder wall showed evidence of disease recurrence. Biopsies were performed. Pathology revealed invasive carcinoma with squamous differentiation. PDL1 was expression was 1% TPS/CPS of 5. TMB 8.4 M/MB, MSI stable. Negative for FGFR 2/3, no actionable genetic alterations found. She received Pembrolizumab 200 mg IV every 3 weeks from 07/13/2023 until 12/20/2023. MRI pelvis performed 12/19/2023 shows several new polypoid a masses in the bladder, masslike thickening measuring 5.2 cm extending to bladder base. Severe right hydroureteronephrosis which is new compared to prior scan. All of this suspicious for progressive disease. She started enfortumab vedotin a Nectin 4 directed antibody and microtubule inhibitor conjugate on 12/27/2023. She is tolerating it well. Possible side effects such as rash, hyperglycemia, neuropathy, cytopenias and risk of pulmonary/eye toxicities were discussed. She underwent cystoscopy and TURBT of masses from the posterior and right anterior bladder wall on 01/15/24, both revealed high-grade papillary urothelial invasive carcinoma. She underwent internalization of bilateral nephrostomy tubes. She had bilateral stent placement with removal of PCN in 01/29/2024. 03/13, she presented to oncology with progressive renal dysfunction and mild hyperkalemia. She was symptomatic with nausea, generalized weakness as well as some abdominal pain. She was referred to emergency department on account of hypotension, for urgent scan to see if she has developed recurrent hydronephrosis. 03/13, CT abdomen pelvis revealed: Moderate to severe bilateral hydroureteronephrosis with soft tissue thickening at the ureteropelvic junctions and on the right at the bladder insertion. Numerous prominent retroperitoneal lymph nodes. Diffuse irregular bladder wall thickening extending to the bladder base. 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 PET/CT may be considered to assess further. PLAN: 1. UTI/Urosepsis: Sepsis due to complicated UTI - follow UCx/BCx, 03/13 - Started on linezolid + pip-herbert 2. Obstructive NADEEN/CKD3: hydroureteronephrosis due to progressive bladder CA. Urology consult pending. - continue IV fluids, - pain control with tramadol + IV hydromorphone - hold lisinopril 3. HyperK, mild. K : 5.3, 5.6. - Given 1 dose Lokelma + recheck BMP in AM. Nephrology consultation pending. - Lisinopril on hold. Unfortunately, patient has progressive disease which is causing obstruction proximally of both kidneys. I will speak to intervention Radiology to see if percutaneous nephrostomy tubes is a possibility. Patient has been made aware of progressive cancer. - Time Spent With Patient Time Spent with Patient (in minutes): 15 Additional Coding: - Additional E/M codes Complex E/M visit Add On: CPT G2211
--- NOTE | 2024-03-15 10:16 | MHC.CLN ---
NUTRITION CONSULT FOR POOR APPETITE. DIET=REGULAR. PATIENT REPORTS NAUSEA. CAN TOLERATE ENSURE. ORDER FOR ENSURE TID (NO CHOCOLATE PER PREFERENCE). PROVIDES 1050 KCALS, 60 G PROTEIN. QUALIFIES MODERATELY MALNOURISHED IN THE CONTEXT OF CHRONIC ILLNESS. SIGNIFICANT WEIGHT LOSS X ONE MONTH, -7.2%. FOLLOW FOR INTAKE AND DIET TOLERANCE. SEE CLINICAL NUTRITION ASSESSMENT 03/15/24.
--- NOTE | 2024-03-15 11:15 | HO.PM.IMPN ---
Subjective Subjective Date of Service: 03/15/24 Interval History: This history was taken in Telugu from the patient. C/o severe subrapubic pain, willing to have PCN again No fever/chills C/o nausea Review of Systems Review of Systems: Yes all other systems are reviewed and are negative Physical Exam Vital Signs: Vital Signs: Last Vital Signs Temp 97.2 F 03/15/24 07:52 Pulse 87 03/15/24 08:00 Resp 17 03/15/24 08:00 BP 159/78 H 03/15/24 07:52 Pulse Ox 96 03/15/24 07:52 O2 Del Method Room Air 03/15/24 07:52 BMI result Body Mass Index 17.0 Gen: in no acute distress, muscle wasting present HEENT: sclera anicteric, moist mucus membranes Neck: supple Lungs: clear to auscultation bilaterally Heart: regular rate and rhythm, no murmurs Abd: soft, suprapubic tenderness, non-distended Ext: no edema Skin: warm/well-perfused Neuro: alert and oriented x3, no focal findings Psych: appropriate affect Objective Data Active Medications Acetaminophen (Acetaminophen 325 Mg Tablet) 650 mg PO Q6H PRN PRN Reason: Pain, Mild (Pain Scale 1-3), fever or headache Albuterol Sulfate (Albuterol Sulfate 90 Mcg 8 Gm Inhaler) 2 puff INHALE Q4H PRN PRN Reason: shortness of breath or wheezing Calcium Carbonate (Calcium Carbonate 750 Mg Tab.Chew) 750 mg PO Q4H PRN PRN Reason: Heartburn Enoxaparin Sodium (Enoxaparin Sodium 30 Mg/0.3 Ml Syringe) 30 mg SUBCUT Q24H [facility] Last Admin: 03/14/24 18:04 Dose: 30 mg Documented By: MACHELLE Fluticasone Propionate (Fluticasone Propionate 100 Mcg Blst.W.Dev) 1 puff INHALE RBID [facility] Last Admin: 03/15/24 07:59 Dose: 1 puff Documented By: JOSEFINA Hydrocortisone (Hydrocortisone 2.5 % Rectal Cr 30 Gm Tube) 1 appl [place] BID PRN PRN Reason: Hemorrhoids Hydromorphone HCl (Hydromorphone Hcl 0.5 Mg/0.5 Ml Syringe) 0.25 mg IVPUSH Q3H PRN; Protocol PRN Reason: Pain, Severe (Pain Scale 7-10) Last Admin: 03/14/24 19:41 Dose: 0.25 mg Documented By: JEMAL Hydroxyzine HCl (Hydroxyzine Hcl 25 Mg Tablet) 25 mg PO TID PRN PRN Reason: itchiness Sodium Chloride (Ns) 1,000 mls @ 100 mls/hr IVCONT .Q10H [facility] Last Infusion: 03/15/24 09:49 Dose: Infused Documented By: COTEMA Piperacillin Sod/Tazobactam (Sod 2.25 gm/ Sodium Chloride) 50 mls @ 100 mls/hr IV Q8H [facility] Last Infusion: 03/15/24 03:55 Dose: Infused Documented By: JEMAL Linezolid (Linezolid 600 Mg Tablet) 600 mg PO Q12H [facility] Magnesium Hydroxide (Milk Of Magnesia 30 Ml Oral.Susp) 30 ml PO DAILY PRN PRN Reason: Constipation Melatonin (Melatonin 3 Mg Tablet) 6 mg PO BEDTIME PRN PRN Reason: Insomnia Non-Formulary Medication (Linaclotide [Linzess]) 145 mcg PO DAILY [facility] Omeprazole (Omeprazole 40 Mg Capsule.Dr) 40 mg PO DAILY@0630 [facility] Last Admin: 03/15/24 06:19 Dose: 40 mg Documented By: JEMAL Ondansetron HCl (Ondansetron Hcl 4 Mg/2 Ml Vial) 4 mg IVPUSH Q6H PRN PRN Reason: Nausea and Vomiting Last Admin: 03/14/24 18:04 Dose: 4 mg Documented By: MACHELLE Pravastatin Sodium (Pravastatin Sodium 20 Mg Tablet) 20 mg PO DAILY [facility] Last Admin: 03/15/24 07:40 Dose: 20 mg Documented By: KELLEY Sodium Chloride (0.9 % Sodium Chloride Flush 3 Ml Syringe) 3 ml IVFLUSH QSHIFT [facility] Last Admin: 03/15/24 07:03 Dose: Not Given Documented By: COTEMA Non-Admin Reason: IV Running Tramadol HCl (Tramadol Hcl 50 Mg Tablet) 100 mg PO Q6H PRN PRN Reason: Breakthrough Pain, Moderate Last Admin: 03/14/24 15:22 Dose: 100 mg Documented By: MACHELLE Labs 03/15/24 05:42 03/15/24 05:42 Labs: Laboratory Results - last 24 hr 03/15/24 05:42 MCV 90.8 MCH 28.6 MCHC 31.5 RDW 16.2 H Plt Count 421 H MPV 9.8 Absolute Nucleated RBC 0.000 Nucleated RBC % (auto) 0.0 Anion Gap 14 Estim Creat Clear Calc 14.7 Estimated GFR 21 Random Glucose 61 Calcium 8.2 L Microbiology Microbiology Results: Microbiology 03/13/24 Unknown Urine Culture - Final Urine clean catch - Clean Catch Midstream No growth. 03/13/24 14:02 Blood Culture - Preliminary Blood - Subclavian No growth after 24 hours. 03/13/24 13:44 Blood Culture - Preliminary Blood - Subclavian No growth after 24 hours. Assessment and Plan (1) Bladder cancer: Status: Acute (2) Acute kidney injury superimposed on CKD: Status: Acute Assessment and Plan: d3 78yo F with high-grade bladder CA s/p TURBT on chemotherapy, s/p bilateral nephrostomy tubes removed with internazliation of indwelling stents 01/15/24, GERD, HLD, HTN, and asthma admitted for complicated UTI + NADEEN due to worsening hydroureteronephrosis from progressive CA sepsis due to complicated UTI - follow UCx/BCx, 03/13- linezolid + pip-herbert obstructive NADEEN/CKD3 hydroureteronephrosis due to progressive bladder CA - continue IV fluids + hold lisinopril for component of hypoperfusion - discussed with Oncology + Nephrology + Urology, will have IR place PCN today - pain control with tramadol + IV hydromorphone hyperK, mild - resolved after holding lisinopril and giving 1 dose Lokelma HTN - held lisinopril mod persistent asthma - continue home inhalers GERD - PPI HLD - statin chronic constipation - linaclotide moderate protein-calorie malnutrition - supplements VTE ppx - SCDs, hold LMWH dispo - TBD In my clinical judgment, the patient requires continued inpatient hospitalization for the following reasons: PCN, NADEEN Total time managing care of this patient today: 45 minutes. Quality Stroke Does the patient have a stroke diagnosis?: No VTE Prior VTE?: No VTE Risk Level:: Medical - moderate - high VTE Device Contraindication: Treatment Not Indicated VTE Drug Contraindication: N/A - Med Ordered
--- NOTE | 2024-03-15 11:25 | MHC.CM.PN ---
PER MD ROUNDS, PT IS NOT EXPECTED TO BE CLEARED FOR DC TODAY DCP REMAINS HOME WITH RESUMPTION OF [employer] PT MAY ALSO NEED VNA, REFERRAL [facility] WILL TRANSPORT
[2024-03-15] MEDS: HYDROmorphone HCl 0.5 MG/0.5 ML SYRINGE 0.25 MG IVPUSH (12:43)
[2024-03-15] MEDS: ondansetron HCL 4 MG/2 ML VIAL IVPUSH (12:44)
[2024-03-15] MEDS: Sodium Bicarbonate 650 MG TABLET PO ×2 (14:51→19:52)
[2024-03-15] MEDS: Enoxaparin Sodium 30 MG/0.3 ML SYRINGE SUBCUT (18:12)
[2024-03-15] MEDS: Linezolid 600 MG TABLET PO (18:12)
[2024-03-16 01:11] VITALS: BP 157/73; PULSE 95; RESP 18; TEMP 36.6; O2SAT 95
[2024-03-16] MEDS: Piperacillin Sodium/Tazobactam 2.25 GM in 0.9 % Sodium Chloride 50 ML IV (03:28)
[2024-03-16] MEDS: Linezolid 600 MG TABLET PO (05:40)
[2024-03-16 05:59] LABS: Anion Gap 14 (12-20); Blood Urea Nitrogen 24 mg/dL (9-16); Calcium 8.1 mg/dL (8.4-10.2); Carbon Dioxide 17 mmol/L (22-29); Chloride 115 mmol/L (96-108); Creatinine Clr Calc Pharmacy 16.7; Estimated Glomerular Filt Rate 24; Glucose Random 79 mg/dL (60-115); Potassium 3.9 mmol/L (3.3-5.1); Sodium 142 mmol/L (135-145)
[2024-03-16 07:08] VITALS: BP 136/69; PULSE 80; RESP 16; TEMP 36.6; O2SAT 94
[2024-03-16] MEDS: Pravastatin Sodium 20 MG TABLET PO (09:14)
[2024-03-16] MEDS: 0.9 % Sodium Chloride Flush 3 ML SYRINGE IVFLUSH ×3 (09:14→19:45)
[2024-03-16] MEDS: Sodium Bicarbonate 650 MG TABLET PO ×3 (09:14→19:43)
--- NOTE | 2024-03-16 10:12 | HO.PM.IMPN ---
Subjective Subjective Date of Service: 03/16/24 Interval History: This history was taken in Czech from the patient. Suprapubic pain somewhat improved. Poor appetite. No N/V. Review of Systems Review of Systems: Yes all other systems are reviewed and are negative Physical Exam Vital Signs: Vital Signs: Last Vital Signs Temp 98 F 03/16/24 07:08 Pulse 80 03/16/24 07:08 Resp 16 03/16/24 07:08 BP 136/69 03/16/24 07:08 Pulse Ox 94 03/16/24 07:08 O2 Del Method Room Air 03/16/24 07:08 BMI result Body Mass Index 17.0 Gen: in no acute distress, muscle wasting present HEENT: sclera anicteric, moist mucus membranes Neck: supple Lungs: clear to auscultation bilaterally Heart: regular rate and rhythm, no murmurs Abd: soft, suprapubic tenderness, non-distended Ext: no edema Skin: warm/well-perfused Neuro: alert and oriented x3, no focal findings Psych: appropriate affect Objective Data Active Medications Acetaminophen (Acetaminophen 325 Mg Tablet) 650 mg PO Q6H PRN PRN Reason: Pain, Mild (Pain Scale 1-3), fever or headache Albuterol Sulfate (Albuterol Sulfate 90 Mcg 8 Gm Inhaler) 2 puff INHALE Q4H PRN PRN Reason: shortness of breath or wheezing Calcium Carbonate (Calcium Carbonate 750 Mg Tab.Chew) 750 mg PO Q4H PRN PRN Reason: Heartburn Enoxaparin Sodium (Enoxaparin Sodium 30 Mg/0.3 Ml Syringe) 30 mg SUBCUT Q24H [facility] Last Admin: 03/15/24 18:12 Dose: 30 mg Documented By: KELLEY Fluticasone Propionate (Fluticasone Propionate 100 Mcg Blst.W.Dev) 1 puff INHALE RBID [facility] Last Admin: 03/16/24 07:43 Dose: Not Given Documented By: ULISES Non-Admin Reason: Patient Asleep Hydrocortisone (Hydrocortisone 2.5 % Rectal Cr 30 Gm Tube) 1 appl [place] BID PRN PRN Reason: Hemorrhoids Hydromorphone HCl (Hydromorphone Hcl 0.5 Mg/0.5 Ml Syringe) 0.25 mg IVPUSH Q3H PRN; Protocol PRN Reason: Pain, Severe (Pain Scale 7-10) Last Admin: 03/15/24 12:43 Dose: 0.25 mg Documented By: COTEMA Hydroxyzine HCl (Hydroxyzine Hcl 25 Mg Tablet) 25 mg PO TID PRN PRN Reason: itchiness Magnesium Hydroxide (Milk Of Magnesia 30 Ml Oral.Susp) 30 ml PO DAILY PRN PRN Reason: Constipation Melatonin (Melatonin 3 Mg Tablet) 6 mg PO BEDTIME PRN PRN Reason: Insomnia Pt Own (Linaclotide [Linzess] 145 Mcg Capsule) 145 mcg PO DAILY [facility] Last Admin: 03/16/24 09:14 Dose: Not Given Documented By: LUAN Non-Admin Reason: Patient Refused Omeprazole (Omeprazole 40 Mg Capsule.) 40 mg PO DAILY@629 [facility] Last Admin: 03/16/24 05:40 Dose: Not Given Documented By: LIBRADO Non-Admin Reason: Patient Refused Ondansetron HCl (Ondansetron Hcl 4 Mg/2 Ml Vial) 4 mg IVPUSH Q6H PRN PRN Reason: Nausea and Vomiting Last Admin: 03/15/24 12:44 Dose: 4 mg Documented By: KELLEY Pravastatin Sodium (Pravastatin Sodium 20 Mg Tablet) 20 mg PO DAILY [facility] Last Admin: 03/16/24 09:14 Dose: 20 mg Documented By: LUAN Sodium Bicarbonate (Sodium Bicarbonate 650 Mg Tablet) 650 mg PO TID [facility] Stop: 03/18/24 09:01 Last Admin: 03/16/24 09:14 Dose: 650 mg Documented By: LUAN Sodium Chloride (0.9 % Sodium Chloride Flush 3 Ml Syringe) 3 ml IVFLUSH QSHIFT [facility] Last Admin: 03/16/24 09:14 Dose: 3 ml Documented By: LUAN Tramadol HCl (Tramadol Hcl 50 Mg Tablet) 100 mg PO Q6H PRN PRN Reason: Breakthrough Pain, Moderate Last Admin: 03/14/24 15:22 Dose: 100 mg Documented By: PARROWA Labs 03/15/24 05:42 03/16/24 05:36 Labs: Laboratory Results - last 24 hr 03/16/24 05:36 Anion Gap 14 Estim Creat Clear Calc 16.7 Estimated GFR 24 Random Glucose 79 Calcium 8.1 L Microbiology Microbiology Results: Microbiology 03/13/24 14:02 Blood Culture - Preliminary Blood - Subclavian No growth after 48 hours. 03/13/24 13:44 Blood Culture - Preliminary Blood - Subclavian No growth after 48 hours. 03/13/24 Unknown Urine Culture - Final Urine clean catch - Clean Catch Midstream No growth. Assessment and Plan (1) Bladder cancer: Status: Acute (2) Acute kidney injury superimposed on CKD: Status: Acute Assessment and Plan: d4 78yo F with high-grade bladder CA s/p TURBT on chemotherapy, s/p bilateral nephrostomy tubes removed with internazliation of indwelling stents 01/15/24, GERD, HLD, HTN, and asthma admitted for complicated UTI + NADEEN due to worsening hydroureteronephrosis from progressive CA question of sepsis/complicated UTI - UCx + BCx negative, will d/c linezolid + pip/herbert that were started 03/13 obstructive NADEEN/CKD3 hydroureteronephrosis due to progressive bladder CA - improved with IV fluids, continue to hold lisinopril - discussed with Oncology + Nephrology + Urology, will have IR place PCN 03/18/24 - pain control with PO tramadol + IV hydromorphone hyperK, mild - resolved after holding lisinopril and giving 1 dose Lokelma HTN - holding lisinopril mod persistent asthma - continue home inhalers GERD - PPI HLD - statin chronic constipation - linaclotide moderate protein-calorie malnutrition - supplements VTE ppx - SCDs, hold LMWH dispo - PT evaluation In my clinical judgment, the patient requires continued inpatient hospitalization for the following reasons: PCN, NADEEN Total time managing care of this patient today: 45 minutes. Quality Stroke Does the patient have a stroke diagnosis?: No VTE Prior VTE?: No VTE Risk Level:: Medical - moderate - high VTE Device Contraindication: Treatment Not Indicated VTE Drug Contraindication: N/A - Med Ordered
[2024-03-16 13:03] VITALS: BP 136/69; PULSE 80; O2SAT 94
[2024-03-16 15:11] VITALS: BP 142/65; PULSE 89; RESP 18; TEMP 36.4; O2SAT 97
[2024-03-16] MEDS: traMADoL HCL 50 MG TABLET 100 MG PO (15:27)
[2024-03-16] MEDS: Fluticasone Propionate 100 MCG BLST.W.DEV 1 PUFF INHALE (18:55)
[2024-03-16 18:56] VITALS: PULSE 92; RESP 18; O2SAT 94
[2024-03-16 19:24] VITALS: BP 142/71; PULSE 96; RESP 16; TEMP 36.4; O2SAT 96
[2024-03-16] MEDS: Enoxaparin Sodium 30 MG/0.3 ML SYRINGE SUBCUT (19:43)
[2024-03-17 04:00] VITALS: BP 117/65; PULSE 80; RESP 16; TEMP 36.4; O2SAT 96
[2024-03-17 05:56] LABS: Anion Gap 13 (12-20); Blood Urea Nitrogen 18 mg/dL (9-16); Calcium 8.2 mg/dL (8.4-10.2); Carbon Dioxide 20 mmol/L (22-29); Chloride 114 mmol/L (96-108); Creatinine Clr Calc Pharmacy 20.2; Estimated Glomerular Filt Rate 30; Glucose Random 75 mg/dL (60-115); Potassium 3.6 mmol/L (3.3-5.1); Sodium 143 mmol/L (135-145)
[2024-03-17 07:06] VITALS: BP 150/69; PULSE 85; RESP 17; TEMP 36.8; O2SAT 93
[2024-03-17 08:15] VITALS: PULSE 85; RESP 17; O2SAT 94
[2024-03-17] MEDS: Fluticasone Propionate 100 MCG BLST.W.DEV 1 PUFF INHALE ×2 (08:15→19:31)
[2024-03-17] MEDS: Pravastatin Sodium 20 MG TABLET PO (08:20)
[2024-03-17] MEDS: Sodium Bicarbonate 650 MG TABLET PO ×3 (08:20→19:53)
[2024-03-17] MEDS: 0.9 % Sodium Chloride Flush 3 ML SYRINGE IVFLUSH ×3 (08:21→23:36)
--- NOTE | 2024-03-17 09:10 | P.PNIM_ITS ---
Subjective Subjective Date of Service: 03/17/24 Interval History: c/o nausea + suprapubic pain no fever Review of Systems Review of Systems: Yes all other systems are reviewed and are negative Physical Exam 2 Vital Signs: Vital Signs: Last Vital Signs Temp 98.2 F 03/17/24 07:06 Pulse 85 03/17/24 08:15 Resp 17 03/17/24 08:15 BP 150/69 H 03/17/24 07:06 Pulse Ox 93 03/17/24 07:06 O2 Del Method Room Air 03/17/24 07:06 BMI result Body Mass Index 17.0 Gen: in no acute distress, muscle wasting present HEENT: sclera anicteric, moist mucus membranes Neck: supple Lungs: clear to auscultation bilaterally Heart: regular rate and rhythm, no murmurs Abd: soft, suprapubic tenderness, non-distended Ext: no edema Skin: warm/well-perfused Neuro: alert and oriented x3, no focal findings Psych: appropriate affect Objective Data Active Medications Acetaminophen (Acetaminophen 325 Mg Tablet) 650 mg PO Q6H PRN PRN Reason: Pain, Mild (Pain Scale 1-3), fever or headache Albuterol Sulfate (Albuterol Sulfate 90 Mcg 8 Gm Inhaler) 2 puff INHALE Q4H PRN PRN Reason: shortness of breath or wheezing Calcium Carbonate (Calcium Carbonate 750 Mg Tab.Chew) 750 mg PO Q4H PRN PRN Reason: Heartburn Enoxaparin Sodium (Enoxaparin Sodium 30 Mg/0.3 Ml Syringe) 30 mg SUBCUT Q24H [facility] Last Admin: 03/16/24 19:43 Dose: 30 mg Documented By: LIBRADO Fluticasone Propionate (Fluticasone Propionate 100 Mcg Blst.W.Dev) 1 puff INHALE RBID [facility] Last Admin: 03/17/24 08:15 Dose: 1 puff Documented By: ULISES Hydrocortisone (Hydrocortisone 2.5 % Rectal Cr 30 Gm Tube) 1 appl [place] BID PRN PRN Reason: Hemorrhoids Hydromorphone HCl (Hydromorphone Hcl 0.5 Mg/0.5 Ml Syringe) 0.25 mg IVPUSH Q3H PRN; Protocol PRN Reason: Pain, Severe (Pain Scale 7-10) Last Admin: 03/15/24 12:43 Dose: 0.25 mg Documented By: COTEMA Hydroxyzine HCl (Hydroxyzine Hcl 25 Mg Tablet) 25 mg PO TID PRN PRN Reason: itchiness Magnesium Hydroxide (Milk Of Magnesia 30 Ml Oral.Susp) 30 ml PO DAILY PRN PRN Reason: Constipation Melatonin (Melatonin 3 Mg Tablet) 6 mg PO BEDTIME PRN PRN Reason: Insomnia Pt Own (Linaclotide [Linzess] 145 Mcg Capsule) 145 mcg PO DAILY [facility] Last Admin: 03/17/24 08:21 Dose: Not Given Documented By: ALEJANDRA Non-Admin Reason: Patient Refused Omeprazole (Omeprazole 40 Mg Capsule.) 40 mg PO DAILY@0630 [facility] Last Admin: 03/17/24 05:54 Dose: Not Given Documented By: LIBRADO Non-Admin Reason: Patient Refused Ondansetron HCl (Ondansetron Hcl 4 Mg/2 Ml Vial) 4 mg IVPUSH Q6H PRN PRN Reason: Nausea and Vomiting Last Admin: 03/15/24 12:44 Dose: 4 mg Documented By: KELLEY Pravastatin Sodium (Pravastatin Sodium 20 Mg Tablet) 20 mg PO DAILY [facility] Last Admin: 03/17/24 08:20 Dose: 20 mg Documented By: ALEJANDRA Sodium Bicarbonate (Sodium Bicarbonate 650 Mg Tablet) 650 mg PO TID [facility] Stop: 03/18/24 09:01 Last Admin: 03/17/24 08:20 Dose: 650 mg Documented By: ALEJANDRA Sodium Chloride (0.9 % Sodium Chloride Flush 3 Ml Syringe) [facility] Last Admin: 03/17/24 08:21 Dose: 3 ml Documented By: ALEJANDRA Tramadol HCl (Tramadol Hcl 50 Mg Tablet) 100 mg PO Q6H PRN PRN Reason: Breakthrough Pain, Moderate Last Admin: 03/16/24 15:27 Dose: 100 mg Documented By: TOMASIT Labs 03/15/24 05:42 03/17/24 05:18 Labs: Laboratory Results - last 24 hr 03/17/24 05:18 Anion Gap 13 Estim Creat Clear Calc 20.2 Estimated GFR 30 Random Glucose 75 Calcium 8.2 L Assessment and Plan (1) Bladder cancer: Status: Acute (2) Acute kidney injury superimposed on CKD: Status: Acute Assessment and Plan: d5 78yo F with high-grade bladder CA s/p TURBT on chemotherapy, s/p bilateral nephrostomy tubes removed with internazliation of indwelling stents 01/15/24, GERD, HLD, HTN, and asthma admitted for complicated UTI + NADEEN due to worsening hydroureteronephrosis from progressive CA question of sepsis/complicated UTI- ruled out - UCx + BCx negative, d/c'ed linezolid + pip/herbert 03/13-03/16 obstructive NADEEN/CKD3 hydroureteronephrosis due to progressive bladder CA - improved with IV fluids + stopping lisinopril. SCr close to baseline now. - discussed with Oncology + Nephrology + Urology, will have IR place PCN 03/18/24; NPO after midnight - will start OxyContin 10 mg bid and reduce tramadol from 100 to 50 mg q6h prn breakthrough pain; also has IV hydromorphone for severe pain hyperK, mild - resolved after holding lisinopril and giving 1 dose Lokelma HTN - d/c'ed lisinopril mod persistent asthma - continue home inhalers GERD - PPI HLD - statin chronic constipation - linaclotide moderate protein-calorie malnutrition - supplements VTE ppx - SCDs, hold LMWH dispo - PT evaluation: home with VNA, likely tomorrow after PCN In my clinical judgment, the patient requires continued inpatient hospitalization for the following reasons: PCN Total time managing care of this patient today: 45 minutes. Quality Stroke Does the patient have a stroke diagnosis?: No VTE Prior VTE?: No VTE Risk Level:: Medical - moderate - high VTE Device Contraindication: Treatment Not Indicated VTE Drug Contraindication: N/A - Med Ordered
[2024-03-17] MEDS: traMADoL HCL 50 MG TABLET PO (10:01)
[2024-03-17 15:45] VITALS: BP 145/70; PULSE 89; RESP 16; TEMP 36.6; O2SAT 96
[2024-03-17] MEDS: ondansetron HCL 4 MG/2 ML VIAL IVPUSH (16:05)
[2024-03-17 19:32] VITALS: PULSE 87; RESP 16; O2SAT 96
[2024-03-17] MEDS: oxyCODONE HCl ER 10 MG TAB.ER.12H PO (19:54)
[2024-03-17 20:00] VITALS: BP 154/72; PULSE 82; RESP 16; TEMP 37.3; O2SAT 95
[2024-03-18] VITALS (7 sets, daily range): BP systolic 143–165; BP diastolic 45–81; PULSE 79–97; RESP 14–18; TEMP 36.1–37.2; O2SAT 92–98
[2024-03-18 06:18] LABS: Mean Corpuscular HGB Conc 32.1 g/dl (31.0-35.0); Mean Corpuscular Hemoglobin 28.9 pg (27.0-33.0); Mean Platelet Volume 9.6 fL (9.4-12.3); Platelet Count 449 X10*3/uL (160-400); Red Blood Count 3.11 X10*6/uL (4.20-5.50); Red Cell Distribution Width 16.8 % (11.0-16.0); White Blood Count 7.5 X10*3/uL (4.8-10.8)
[2024-03-18 06:49] LABS: Anion Gap 11 (12-20); Blood Urea Nitrogen 16 mg/dL (9-16); Calcium 8.6 mg/dL (8.4-10.2); Carbon Dioxide 25 mmol/L (22-29); Chloride 112 mmol/L (96-108); Creatinine Clr Calc Pharmacy 23.8; Estimated Glomerular Filt Rate 36; Glucose Random 77 mg/dL (60-115); Potassium 3.8 mmol/L (3.3-5.1); Sodium 144 mmol/L (135-145)
[2024-03-18] MEDS: 0.9 % Sodium Chloride Flush 3 ML SYRINGE IVFLUSH ×2 (08:54→19:57)
[2024-03-18] MEDS: Sodium Bicarbonate 650 MG TABLET PO (08:54)
[2024-03-18] MEDS: Fluticasone Propionate 100 MCG BLST.W.DEV 1 PUFF INHALE (09:20)
--- NOTE | 2024-03-18 09:33 | P.PNNP_ITS ---
Subjective Subjective Date of Service: 03/18/24 Interval history: Events noted. Creatinine is trending down. Physical Exam 2 Vital Signs: Vital Signs: Last Vital Signs Temp 97.0 F 03/18/24 07:42 Pulse 84 03/18/24 09:20 Resp 16 03/18/24 09:20 BP 158/72 H 03/18/24 07:42 Pulse Ox 95 03/18/24 07:42 O2 Del Method Room Air 03/18/24 07:42 BMI result Body Mass Index 17.0 Const: General: comfortable; No acute distress Orientation/consciousness: p atient oriented x3 Eyes: General: appearance normal, both eyes and all related structures V isual Kelly: normal visual kelly by confrontation Neck: Neck: Yes supple and Yes no JVD Resp: Effort & Inspection: normal respiratory effort and respiratory effort not decreased Auscultation: rhonchi Cardio: Palpation: no palpable S3 and no palpable S4 Heart sounds: no rubs GI: Inspection: Yes normal to inspection Palpation (GI): Soft to palpation Percussion: Yes normal to percussion Auscultation: normal bowel sounds : General: Yes no CVA tenderness Back/Spine/Pelvis: Back: no CVA tenderness Skin: General skin exam: no petechiae and no purpura Neuro: General: patient oriented x3 and no focal motor deficits Extrem: General: No clubbing and No edema Objective Data Labs 03/18/24 05:07 03/18/24 05:07 Labs: Laboratory Results - last 24 hr 03/18/24 05:07 WBC 7.5 RBC 3.11 L Hgb 9.0 L Hct 28.0 L MCV 90.0 MCH 28.9 MCHC 32.1 RDW 16.8 H Plt Count 449 H MPV 9.6 Absolute Nucleated RBC 0.000 Nucleated RBC % (auto) 0.0 Sodium 144 Potassium 3.8 Chloride 112 H Carbon Dioxide 25 Anion Gap 11 L BUN 16 Creatinine 1.40 Estim Creat Clear Calc 23.8 Estimated GFR 36 Random Glucose 77 Calcium 8.6 Microbiology Microbiology Results: Microbiology 03/13/24 14:02 Blood - Subclavian Blood Culture - Preliminary No growth after 48 hours. 03/13/24 13:44 Blood - Subclavian Blood Culture - Preliminary No growth after 48 hours. 03/13/24 Unknown Urine clean catch - Clean Catch Midstream Urine Culture - Final No growth. Procedures Date of Service Date of Service: 03/18/24 Assessment & Plan Assessment and plan (1) Bladder cancer: Status: Acute (2) Acute kidney injury superimposed on CKD: Status: Acute Plan #NADEEN super imposed on CKD 3 Primarily due to obstructive uropathy r/t bilateral hydroureternephrosis due to bladder cancer Additionally had a component of Hypoperfusion due to low BP and volume depletion while on ACEi Hyperchloremic Metabolic acidosis in a setting of NADEEN/Obstruction Anemia Suggest Keep I > O DC Liisnopril Avoid hypotension Lokelma PRN Watch urine output Urology follow up No indication for dialysis Concur with other medical management Time Spent With Patient Time: Total time managing care of this patient today ____ minutes. Progress Note: Quality Stroke Does the patient have a stroke diagnosis?: No
--- NOTE | 2024-03-18 10:56 | MHC.CM.PN ---
PER MD ROUNDS, PT IS NOT MEDICALLY CLEARED TO DC DCP REMAINS HOME WITH [employer] TO TRANSPORT
--- NOTE | 2024-03-18 12:14 | MHC.CLN ---
F/U PATIENT IS NPO TODAY FOR A PROCEDURE. INTAKE PRIOR TO NPO STATUS APPEARS POOR. WHEN ABLE, CONTINUE REGULAR DIET WITH ENSURE TID. SUPPLEMENT PROVIDES ADDITIONAL 1050 KCALS, 60 G PROTEIN. FOLLOW FOR DIET ADVANCEMENT, INTAKE AND DIET TOLERANCE.
--- NOTE | 2024-03-18 14:17 | P.PNIM_ITS ---
Subjective Subjective Date of Service: 03/18/24 Interval History: Being followed for obstructive NADEEN on chronic kidney disease, patient offers no acute complaints of pain, no nausea, no vomiting is NPO for PCN placement by IR today, no acute events overnight. Review of Systems All other system are reviewed and negative Physical Exam 2 Vital Signs: Vital Signs: Last Vital Signs Temp 97.0 F 03/18/24 07:42 Pulse 84 03/18/24 09:20 Resp 16 03/18/24 09:20 BP 158/72 H 03/18/24 07:42 Pulse Ox 95 03/18/24 07:42 O2 Del Method Room Air 03/18/24 07:42 BMI result Body Mass Index 17.0 Const: Other: Gen: in no acute distress, resting comfortably HEENT: sclera anicteric Neck: supple,no jvd Lungs: clear to auscultation bilaterally Heart: regular rate and rhythm, no murmurs Abd: soft, no suprapubic tenderness, non-distended Ext: no edema Skin: warm/well-perfused Neuro: alert and oriented x3, no focal findings Psych: appropriate affect Objective Data Active Medications Acetaminophen (Acetaminophen 325 Mg Tablet) 650 mg PO Q6H PRN PRN Reason: Pain, Mild (Pain Scale 1-3), fever or headache Albuterol Sulfate (Albuterol Sulfate 90 Mcg 8 Gm Inhaler) 2 puff INHALE Q4H PRN PRN Reason: shortness of breath or wheezing Calcium Carbonate (Calcium Carbonate 750 Mg Tab.Chew) 750 mg PO Q4H PRN PRN Reason: Heartburn Enoxaparin Sodium (Enoxaparin Sodium 30 Mg/0.3 Ml Syringe) 30 mg SUBCUT Q24H [facility] Last Admin: 03/16/24 19:43 Dose: 30 mg Documented By: LIBRADO Fluticasone Propionate (Fluticasone Propionate 100 Mcg Blst.W.Dev) 1 puff INHALE RBID [facility] Last Admin: 03/18/24 09:20 Dose: 1 puff Documented By: JOSEFINA Hydrocortisone (Hydrocortisone 2.5 % Rectal Cr 30 Gm Tube) 1 appl [place] BID PRN PRN Reason: Hemorrhoids Hydromorphone HCl (Hydromorphone Hcl 0.5 Mg/0.5 Ml Syringe) 0.25 mg IVPUSH Q3H PRN; Protocol PRN Reason: Pain, Severe (Pain Scale 7-10) Last Admin: 03/15/24 12:43 Dose: 0.25 mg Documented By: COTEMA Hydroxyzine HCl (Hydroxyzine Hcl 25 Mg Tablet) 25 mg PO TID PRN PRN Reason: itchiness Magnesium Hydroxide (Milk Of Magnesia 30 Ml Oral.Susp) 30 ml PO DAILY PRN PRN Reason: Constipation Melatonin (Melatonin 3 Mg Tablet) 6 mg PO BEDTIME PRN PRN Reason: Insomnia Pt Own (Linaclotide [Linzess] 145 Mcg Capsule) 145 mcg PO DAILY [facility] Last Admin: 03/18/24 08:56 Dose: Not Given Documented By: RENY Non-Admin Reason: Patient Refused Omeprazole (Omeprazole 40 Mg Capsule.) 40 mg PO DAILY@0630 [facility] Last Admin: 03/18/24 05:37 Dose: Not Given Documented By: JACKELINE Non-Admin Reason: NPO Ondansetron HCl (Ondansetron Hcl 4 Mg/2 Ml Vial) 4 mg IVPUSH Q4H PRN PRN Reason: Nausea and Vomiting Last Admin: 03/17/24 16:05 Dose: 4 mg Documented By: ALEJANDRA Oxycodone HCl (Oxycodone Hcl Er 10 Mg Tab.Er.12h) 10 mg PO BID [facility] Last Admin: 03/18/24 09:01 Dose: Not Given Documented By: RENY Non-Admin Reason: Patient Refused Pravastatin Sodium (Pravastatin Sodium 20 Mg Tablet) 20 mg PO DAILY [facility] Last Admin: 03/18/24 09:03 Dose: Not Given Documented By: RENY Non-Admin Reason: Patient Refused Sodium Chloride (0.9 % Sodium Chloride Flush 3 Ml Syringe) 3 ml IVFLUSH QSHIFT [facility] Last Admin: 03/18/24 08:54 Dose: 3 ml Documented By: RENY Tramadol HCl (Tramadol Hcl 50 Mg Tablet) 50 mg PO Q12H PRN PRN Reason: Breakthrough Pain, Moderate Last Admin: 03/17/24 10:01 Dose: 50 mg Documented By: ALEJANDRA Labs 03/18/24 05:07 03/18/24 05:07 Labs: Laboratory Results - last 24 hr 03/18/24 05:07 MCV 90.0 MCH 28.9 MCHC 32.1 RDW 16.8 H Plt Count 449 H MPV 9.6 Absolute Nucleated RBC 0.000 Nucleated RBC % (auto) 0.0 Anion Gap 11 L Estim Creat Clear Calc 23.8 Estimated GFR 36 Random Glucose 77 Calcium 8.6 Assessment and Plan (1) Bladder cancer: Status: Acute (2) Acute kidney injury superimposed on CKD: Status: Acute Assessment and Plan: 78yo F with high-grade bladder CA s/p TURBT on chemotherapy, s/p bilateral nephrostomy tubes removed with internazliation of indwelling stents 01/15/24, GERD, HLD, HTN, and asthma admitted for complicated UTI + NADEEN due to worsening hydroureteronephrosis from progressive CA question of sepsis/complicated UTI- ruled out - UCx + BCx negative, d/c'ed linezolid + pip/herbert 03/13-03/16 obstructive NADEEN/CKD3 hydroureteronephrosis due to progressive bladder CA -serum creatinine normalized, status post IV fluids, lisinopril discontinued - underwent placement of PCN by IR today, will resume diet - continue OxyContin 10 mg bid started on 03/17 and on tramadol 50 mg q12h prn breakthrough pain; dc IV hydromorphone hyperK, mild - resolved after holding lisinopril and giving 1 dose Lokelma HTN - elevated BP, lisinopril discontinued due to hyperkalemia if BP remains elevated will consider Norvasc low-dose mod persistent asthma - continue home inhalers GERD - PPI HLD - statin chronic constipation - linaclotide moderate protein-calorie malnutrition - supplements VTE ppx - SCDs, hold LMWH dispo - PT evaluation: home with VNA/PT for transfer training, therapeutic exercises and safety In my clinical judgment, the patient requires continued inpatient hospitalization for the following reasons: PCN Total time managing care of this patient today: 45 minutes. Quality Stroke Does the patient have a stroke diagnosis?: No VTE Prior VTE?: No VTE Risk Level:: Medical - moderate - high VTE Device Contraindication: Treatment Not Indicated VTE Drug Contraindication: N/A - Med Ordered
--- NOTE | 2024-03-18 15:19 | PM.HEMONCPN ---
Medical Summary - Medical Summary Date of Service: 03/18/24 Chief complaint: Abdominal pain Primary Care Provider: Angeline Klein MD Medical Summary: DIAGNOSIS: BLADDER CANCER. Interval History Interval history: Altaf Alba is a 78 year old lady, with high-grade bladder CA s/p TURBT currently on chemotherapy, s/p bilateral nephrostomy tube placement on 01/15/2024. 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 The patient is being followed by Dr. Palacios and Dr. Blair currently undergoing treatment with enfortumab vedotin a Nectin 4 directed antibody and microtubule inhibitor conjugate which was started on 12/27/2023. 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 Since then has had progressively worsening renal function and hyperkalemia and was referred to the ED for CT to see if there has been redevelopment of hydroureternephrosis. The patient reports longstanding dysuria and increased frequency/urgency with suprapubic pain that is chronic and unchanged. Has also had nausea and multiple episodes of vomiting over the last few days and reports anorexia. She does feel she takes in adequate fluids. No fevers, chills, diarrhea, melena, hematochezia, hemetemesis, lightheadedness, syncope, palpitations, sob, chest pain. On arrival, blood pressures soft improved to 114/66 with IVF and mildly tachycardic on arrival to 102. Afebrile. There is a leukocytosis of 12.4. She has a stable normocytic anemia with H/H 10.5/32.9%. Creatinine 2.58, BUN 36, baseline creatinine around 1.2 and has been progressively worsening since removal of the nephrostomy tubes on 01/28. Sodium 133, potassium 5.3, electrolytes otherwise normal. CT abdomen/pelvis shows moderate to severe bilateral hydroureteronephrosis with soft tissue thickening at the ureteropelvic junctions and on the right at the bladder insertion with numerous prominent retroperitoneal lymph nodes. There is also diffuse irregular bladder wall thickening ascending to the bladder base most likely representing multifocal bladder tumor with neoplastic involvement of the kidneys and ureters. She was admitted for further management of NADEEN r/t bilateral hydroureternephrosis due to bladder cancer and UTI She had stents placed, she reports pain from surgery in the left lower quadrant of the abdomen. Review of Systems: Review of Systems - Neurologic Reports no additional neurologic complaints [facility] Medical History: Medical History (Last Reviewed 03/16/24 @ 13:05 by Brigitte Covington, PT) Asthma Bladder mass Chronic pain syndrome Emphysema lung GERD (gastroesophageal reflux disease) Hemorrhoids with complication History of COVID-19 Hyperlipidemia Hypertension Malignant neoplasm of urinary bladder Osteoarthritis UTI (urinary tract infection) Functional capacity: wheelchair bound Family History: Family History (Last Reviewed 03/13/24 @ 18:49 by YAMIL Osorio) Father No problems noted. Mother Diabetes Brother Lung cancer Daughter Diabetes Surgical History: Surgical History (Last Reviewed 03/16/24 @ 13:05 by Brigitte Covington, PT) History of ERCP History of esophagogastroduodenoscopy (EGD) History of hysterectomy with bilateral oophorectomy History of surgery Hx laparoscopic cholecystectomy Hx of colonoscopy Onset Date: 01/17/19 Hx of cystoscopy Social History: Social History (Last Reviewed 03/13/24 @ 18:49 by YAMIL Osorio) Living Situation History: Household Members: Spouse Housing: Apartment Do you presently have visiting nurse or other home services: No Tobacco History: Patient Tobacco Use Status: Never used Tobacco Years Smoked: 55 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 Current occupation: rt handed Home Medications and Allergies Current Medications: Current Medications Acetaminophen (Acetaminophen 325 Mg Tablet) 650 mg PO Q6H PRN PRN Reason: Pain, Mild (Pain Scale 1-3), fever or headache Albuterol Sulfate (Albuterol Sulfate 90 Mcg 8 Gm Inhaler) 2 puff INHALE Q4H PRN PRN Reason: shortness of breath or wheezing Calcium Carbonate (Calcium Carbonate 750 Mg Tab.Chew) 750 mg PO Q4H PRN PRN Reason: Heartburn Enoxaparin Sodium (Enoxaparin Sodium 30 Mg/0.3 Ml Syringe) 30 mg SUBCUT Q24H [facility] Last Admin: 03/16/24 19:43 Dose: 30 mg Fluticasone Propionate (Fluticasone Propionate 100 Mcg Blst.W.Dev) 1 puff INHALE RBID [facility] Last Admin: 03/18/24 09:20 Dose: 1 puff Hydrocortisone (Hydrocortisone 2.5 % Rectal Cr 30 Gm Tube) 1 appl [place] BID PRN PRN Reason: Hemorrhoids Hydroxyzine HCl (Hydroxyzine Hcl 25 Mg Tablet) 25 mg PO TID PRN PRN Reason: itchiness Magnesium Hydroxide (Milk Of Magnesia 30 Ml Oral.Susp) 30 ml PO DAILY PRN PRN Reason: Constipation Melatonin (Melatonin 3 Mg Tablet) 6 mg PO BEDTIME PRN PRN Reason: Insomnia Pt Own (Linaclotide [Linzess] 145 Mcg Capsule) 145 mcg PO DAILY [facility] Last Admin: 03/18/24 08:56 Dose: Not Given Omeprazole (Omeprazole 40 Mg Capsule.Dr) 40 mg PO DAILY@0630 [facility] Last Admin: 03/18/24 05:37 Dose: Not Given Ondansetron HCl (Ondansetron Hcl 4 Mg/2 Ml Vial) 4 mg IVPUSH Q4H PRN PRN Reason: Nausea and Vomiting Last Admin: 03/17/24 16:05 Dose: 4 mg Oxycodone HCl (Oxycodone Hcl Er 10 Mg Tab.Er.12h) 10 mg PO BID [facility] Last Admin: 03/18/24 09:01 Dose: Not Given Pravastatin Sodium (Pravastatin Sodium 20 Mg Tablet) 20 mg PO DAILY [facility] Last Admin: 03/18/24 09:03 Dose: Not Given Sodium Chloride (0.9 % Sodium Chloride Flush 3 Ml Syringe) 3 ml IVFLUSH QSHIFT [facility] Last Admin: 03/18/24 15:08 Dose: Not Given Tramadol HCl (Tramadol Hcl 50 Mg Tablet) 50 mg PO Q12H PRN PRN Reason: Breakthrough Pain, Moderate Last Admin: 03/17/24 10:01 Dose: 50 mg Home Medications ?Medication ?Instructions ?Recorded ?Confirmed ?Type lisinopril 10 mg tablet 15 mg PO DAILY 03/09/22 03/13/24 History ipratropium 20 mcg-albuterol 100 1 puff inhalation QID 12/28/22 03/13/24 History mcg/actuation mist for inhalation (Combivent Respimat) pravastatin 40 mg tablet 40 mg PO DAILY 12/28/22 03/13/24 History albuterol sulfate 90 mcg/actuation 2 puff inhalation Q4H PRN 03/13/24 03/13/24 History aerosol inhaler shortness of breath or wheezing fluticasone propionate 110 1 puff inhalation BID 03/13/24 03/13/24 History mcg/actuation HFA aerosol inhaler hydrocortisone 2.5 % topical cream 1 appl [place] BID PRN Hemorrhoids 03/13/24 03/13/24 History with perineal applicator hydroxyzine HCl 25 mg tablet 25 mg PO TID PRN itchiness 03/13/24 03/13/24 History linaclotide 145 mcg capsule 145 mcg PO DAILY 03/13/24 03/13/24 History (Linzess) Allergies Allergy/AdvReac Type Severity Reaction Status Date / Time aspirin [ASA] Allergy Intermediate RASH Verified 03/13/24 13:12 ibuprofen [Ibuprofen] Allergy Intermediate RASH Verified 03/13/24 13:12 morphine [MORPHINE] Allergy Intermediate ITCHING Verified 03/13/24 13:12 naproxen [From NAPROSYN] Allergy Intermediate RASH,N/V Verified 03/13/24 13:12 oxycodone [OXYCODONE] Allergy Intermediate NAUSEA & Verified 03/13/24 13:12 VOMITING, RASH sulfamethoxazole AdvReac Severe Abdominal Verified 03/13/24 13:12 [From Bactrim] Pain trimethoprim [From Bactrim] AdvReac Severe Abdominal Verified 03/13/24 13:12 Pain Exam Vital signs: Vital Signs Temp 97.8 F 03/18/24 14:27 Pulse 97 03/18/24 14:27 Resp 16 03/18/24 14:27 BP 165/80 H 03/18/24 14:27 Pulse Ox 94 03/18/24 14:27 O2 Del Method Room Air 03/18/24 14:27 Intake & Output 03/17/24 03/18/24 03/18/24 18:59 06:59 18:59 Intake Total 180 / 680 500 / 680 Output Total 250 / 260 10 / 260 Balance -70 / 420 490 / 420 Urine Output (Average ml/kg/hr) 0.46 0.02 0.02 Intake: Intake, Oral Amount 180 / 680 500 / 680 Output: Output, Urine Amount 250 / 260 10 / 260 Other: Meal Refused Yes NPO Yes Breakfast % Eaten npo Lunch % Eaten npo Number of Incontinent Voids 1 Number of Unmeasured Voids 1 2 Urine Bathroom Bathroom Bathroom Urine Color Yellow Yellow Stool Bathroom Stool Amount Large Stool Color Dark Brown Stool Consistency Soft Weight 44.9 kg BMI result Body Mass Index 17.0 - Constitutional Present: no acute distress, chronically ill appearing - Routine HEENT Exam Head: Present: normal inspection - Routine Neck Exam Absent: lymphadenopathy - Routine Respiratory Exam Absent: accessory muscle use - Routine Cardiovascular Exam Cardiovascular: Present: RRR, S1, S2 - Routine Abdominal Exam Present: soft Data - Labs CBC & Chem 7: 03/18/24 05:07 03/18/24 05:07 - Imaging Radiologist's impression: ITS Impressions Abdomen/Pelvis CT 03/13/24 14:35 IMPRESSION: Moderate to severe bilateral hydroureteronephrosis with soft tissue thickening at the ureteropelvic junctions and on the right at the bladder insertion. Numerous prominent retroperitoneal lymph nodes. Diffuse irregular bladder wall thickening extending to the bladder base. 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 PET/CT may be considered to assess further. Assessment and Plan Patient Active problem list reviewed?: Yes (1) Bladder cancer Status: Acute Assessment and plan: 78 year old lady with high-grade bladder cancer that recurred in August 2022. She underwent TURBT on 08/23/2022 which revealed papillary urothelial carcinoma, high-grade. Repeat TURBT on 12/12/2022 revealed high-grade carcinoma with squamous differentiation, invasive into muscularis propria. Differential includes primary urothelial carcinoma and high-grade urothelial carcinoma with squamous differentiation. She started systemic therapy with carboplatin and gemcitabine She completed 6 cycles in April 2023. On 06/26/2023 she underwent cystoscopy, left side bladder wall showed evidence of disease recurrence. Biopsies were performed. Pathology revealed invasive carcinoma with squamous differentiation. PDL1 was expression was 1% TPS/CPS of 5. TMB 8.4 M/MB, MSI stable. Negative for FGFR 2/3, no actionable genetic alterations found. She received Pembrolizumab 200 mg IV every 3 weeks from 07/13/2023 until 12/20/2023. MRI pelvis performed 12/19/2023 shows several new polypoid a masses in the bladder, masslike thickening measuring 5.2 cm extending to bladder base. Severe right hydroureteronephrosis which is new compared to prior scan. All of this suspicious for progressive disease. She started enfortumab vedotin a Nectin 4 directed antibody and microtubule inhibitor conjugate on 12/27/2023. She is tolerating it well. Possible side effects such as rash, hyperglycemia, neuropathy, cytopenias and risk of pulmonary/eye toxicities were discussed. She underwent cystoscopy and TURBT of masses from the posterior and right anterior bladder wall on 01/15/24, both revealed high-grade papillary urothelial invasive carcinoma. She underwent internalization of bilateral nephrostomy tubes. She had bilateral stent placement with removal of PCN in 01/29/2024. 03/13, she presented to oncology with progressive renal dysfunction and mild hyperkalemia. She was symptomatic with nausea, generalized weakness as well as some abdominal pain. She was referred to emergency department on account of hypotension, for urgent scan to see if she has developed recurrent hydronephrosis. 03/13, CT abdomen pelvis revealed: Moderate to severe bilateral hydroureteronephrosis with soft tissue thickening at the ureteropelvic junctions and on the right at the bladder insertion. Numerous prominent retroperitoneal lymph nodes. Diffuse irregular bladder wall thickening extending to the bladder base. 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 PET/CT may be considered to assess further. Patient has had bilateral percutaneous nephrostomy tubes placed by intervention Radiology. Her creatinine has come down to baseline. She can be discharged when her pain is better controlled. Also discussed with the patient that she has progressive cancer, her treatment will there for be switched. She will be started on sacituzumab govitecan in the 3rd line setting.. We discussed possible side effects of chemotherapy such as hair loss, diarrhea, risk of cytopenias and infection. She is willing to proceed. - Time Spent With Patient Time Spent with Patient (in minutes): 15 Additional Coding: - Additional E/M codes Complex E/M visit Add On: CPT G2211
[2024-03-18] MEDS: oxyCODONE HCl ER 10 MG TAB.ER.12H PO (18:15)
[2024-03-18] MEDS: traMADoL HCL 50 MG TABLET PO (19:56)
[2024-03-18] MEDS: amLODIPine Besylate 5 MG TABLET PO (22:44)
[2024-03-19 02:46] VITALS: BP 139/84; PULSE 100; RESP 16; TEMP 36.6; O2SAT 93
[2024-03-19 07:38] VITALS: PULSE 100; RESP 17; O2SAT 92
[2024-03-19] MEDS: Fluticasone Propionate 100 MCG BLST.W.DEV 1 PUFF INHALE (07:38)
[2024-03-19 08:00] VITALS: BP 156/82; PULSE 99; RESP 20; TEMP 36.7; O2SAT 96
[2024-03-19] MEDS: amLODIPine Besylate 5 MG TABLET PO (08:27)
[2024-03-19] MEDS: 0.9 % Sodium Chloride Flush 3 ML SYRINGE IVFLUSH (08:27)
[2024-03-19] MEDS: oxyCODONE HCl ER 10 MG TAB.ER.12H PO (08:27)
[2024-03-19] MEDS: Pravastatin Sodium 20 MG TABLET PO (08:27)
[2024-03-19] MEDS: Dicyclomine HCl 10 MG CAPSULE PO (10:50)
--- NOTE | 2024-03-19 12:58 | PM.DS ---
DS: Providers Provider Date of Service: 03/19/24 Date of admission: 03/13/24 18:30 Primary care physician: Angeline Klein MD Consults: 03/13/24 18:30 Consult to Urology Routine Consulting Provider: [facility] Reason for consultation: bilateral hydroureternephrosis, bladder ca, recent PCN removal 2nd request 03/13/24 18:35 Consult to Hematology / Oncology Routine Consulting Provider: [facility] Reason for consultation: bladder cancer Consult to Nephrology Routine Consulting Provider: [facility] Reason for consultation: NADEEN 2nd request DS: Diagnosis Discharge Diagnosis (1) Bladder cancer: Status: Acute DS: Summary Hospital Course Hospital Course: History of presenting illness: Date of Service: 03/13/24 Attending physician on admission: Mariel Jones Chief Complaint: low blood pressures, progressive NADEEN/hyperkalemia from oncology 78-year-old female with past medical history GERD, HLD, HTN, asthma, high-grade bladder CA s/p TURBT currently on chemotherapy, s/p bilateral nephrostomy tube placement on 01/15/2024 presenting to ED from Oncology for hypotension, abdominal pain and vomiting 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 The patient is being followed by Dr. Palacios and Dr. Blair currently undergoing treatment with enfortumab vedotin a Nectin 4 directed antibody and microtubule inhibitor conjugate which was started on 12/27/2023. 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 Since then has had progressively worsening renal function and hyperkalemia and was referred to the ED for CT to see if there has been redevelopment of hydroureternephrosis. The patient reports longstanding dysuria and increased frequency/urgency with suprapubic pain that is chronic and unchanged. Has also had nausea and multiple episodes of vomiting over the last few days and reports anorexia. She does feel she takes in adequate fluids. No fevers, chills, diarrhea, melena, hematochezia, hemetemesis, lightheadedness, syncope, palpitations, sob, chest pain. On arrival, blood pressures soft improved to 114/66 with IVF and mildly tachycardic on arrival to 102. Afebrile. There is a leukocytosis of 12.4. She has a stable normocytic anemia with H/H 10.5/32.9%. Creatinine 2.58, BUN 36, baseline creatinine around 1.2 and has been progressively worsening since removal of the nephrostomy tubes on 01/28. Sodium 133, potassium 5.3, electrolytes otherwise normal. CT abdomen/pelvis shows moderate to severe bilateral hydroureteronephrosis with soft tissue thickening at the ureteropelvic junctions and on the right at the bladder insertion with numerous prominent retroperitoneal lymph nodes. There is also diffuse irregular bladder wall thickening ascending to the bladder base most likely representing multifocal bladder tumor with neoplastic involvement of the kidneys and ureters. She will be admitted for further management of NADEEN r/t bilateral hydroureternephrosis due to bladder cancer and UTI. Hospital course: 78yo F with high-grade bladder CA s/p TURBT on chemotherapy, s/p bilateral nephrostomy tubes removed with internazliation of indwelling stents 01/15/24, GERD, HLD, HTN, and asthma admitted for complicated UTI + NADEEN due to worsening hydroureteronephrosis from progressive CA, initially there was question of sepsis with complicated UTI but urine and blood culture came back negative therefore antibiotic discontinued, acute kidney injury on chronic kidney disease stage 3 felt related to hydroureteronephrosis due to progressive bladder CA, treated with IV fluids, lisinopril discontinued patient underwent placement of bilateral percutaneous nephrostomy tube by IR on March 18 Serum creatinine normalized, patient placed on OxyContin 10 mg b.i.d. and dose of tramadol reduced to 50 mg q.12 hours as needed for breakthrough pain patient tolerating current medications therefore she is being discharged home with recommendation to have outpatient follow-up with Dr. Palacios and Urology Dr. Blair-noted to have mild hyperkalemia treated with Lokelma, repeat potassium is normal. In regard to hypertension lisinopril discontinued due to hyperkalemia patient placed on amlodipine recommend outpatient follow-up of blood pressure, in regard to hyperlipidemia continue statins and Prilosec for GERD. Patient noted to have no acute exacerbation of moderate persistent asthma recommend to continue home inhalers In regard to moderate protein calorie malnutrition recommend to continue supplements and for chronic constipation continue LInzess. Time Attestation Discharge Coordination Time (in mins): 40 Quality: Safe Use of Opioids Does Pt have an Active Cancer Diagnosis on the Problem List?: No Quality: Stroke Does the patient have a stroke diagnosis?: No Physical Exam Vital Signs: Vital Signs: Last Vital Signs Temp 98.0 F 03/19/24 08:00 Pulse 99 03/19/24 08:00 Resp 20 03/19/24 08:00 BP 156/82 H 03/19/24 08:00 Pulse Ox 96 03/19/24 08:00 O2 Del Method Room Air 03/19/24 08:00 BMI result Body Mass Index 17.0 Const: Other: Gen: in no acute distress, resting comfortably HEENT: sclera anicteric Neck: supple,no jvd Lungs: clear to auscultation bilaterally Heart: regular rate and rhythm, no murmurs Abd: soft, non-distended Bilateral nephrostomy tube in place Ext: no edema Skin: warm/well-perfused Neuro: alert and oriented x3, no focal findings Psych: appropriate affect DS: Data Data Completed and Pending Completed studies during hospitalization [Text1]: Procedures Bypass Right Kidney Pelvis to Cutaneous with Synthetic Substitute, Percutaneous Approach (12/27/22) Destruction of Bladder, Via Natural or Artificial Opening Endoscopic (08/13/22) Excision of Bladder, Via Natural or Artificial Opening Endoscopic (08/13/22) Discharge Plan Discharge Anticipated Discharge Date/Time: 03/19/24 12:42 Patient Disposition: Home, Self-Care Discharge Diagnosis: Obstructive NADEEN on chronic kidney disease stage 3 Mild hyperkalemia Referrals: Angeline Klein MD [Primary Care Provider] - 1 Week Discharge Medications: New amlodipine 5 mg Tablet 5 mg PO DAILY Qty: 30 0RF Protocol: Hold for SBP< HOLD for SBP < : 90 oxycodone [OxyContin] 10 mg Tablet,Oral Only,Ext.Rel.12 Hr 10 mg PO BID Qty: 20 0RF Rx Instructions: Partial Fill upon patient request. Continued ondansetron 8 mg Tablet,Disintegrating 8 mg PO Q8H PRN (Reason: Nausea) Qty: 30 3RF pravastatin 40 mg tablet 40 mg PO DAILY Combivent Respimat 20-100 mcg/actuation mist 1 puff INHALATION QID fluticasone propionate 110 mcg/actuation HFA aerosol inhaler 1 puff INHALATION BID albuterol sulfate 90 mcg/actuation HFA aerosol inhaler 2 puff inhalation Q4H PRN (Reason: shortness of breath or wheezing) Linzess 145 mcg capsule 145 mcg PO DAILY hydroxyzine HCl 25 mg tablet 25 mg PO TID PRN (Reason: itchiness) hydrocortisone 2.5 % cream with perineal applicator 1 appl [place] BID PRN (Reason: Hemorrhoids) omeprazole 40 mg capsule,delayed release(DR/EC) 40 mg PO DAILY Qty: 30 6RF Changed tramadol 50 mg Tablet 50 mg PO Q12H PRN (Reason: Breakthrough Pain, Moderate) Qty: 60 0RF Discontinued lisinopril 10 mg tablet 15 mg PO DAILY Discharge Orders: Discharge Order (Routine); Ordered 03/19/24 Ordered By: Anderson Herndon Diet: Advance to usual diet Activity on Discharge: As tolerated Stand Alone Forms: Patient Portal Discharge page Print Language: Nepalese Care Plan Goals: Take OxyContin 10 mg twice daily and use tramadol 50 mg twice daily as needed for breakthrough pain Status post placement of bilateral nephrostomy tubes, follow-up with Urology Health Concerns: Bladder CA Plan of Treatment: Outpatient follow-up with Dr. Palacios call for appointment Outpatient follow-up with Dr. Severo Blair call for appointment Assessment: as above
--- NOTE | 2024-03-19 13:18 | MHC.CM.PN ---
IMM 03/19/24 Patient is discharged to home with resumption of [employer] services. She has arranged for her to provide transportation home.
== END 2024-03-19 13:51 | disposition home or self-care (01) | DRG 694 ==
LOC: HO.ED 16:04 → HO.EDOVER 18:49 → HO.S3 20:13
PROVIDERS: Family Medicine; Physician Assistant; Radiology Vascular & Interventional Radiology; Admitting Provider Physician Assistant; Emergency Provider Emergency Medicine; PCP General Practice; Visit Provider Hospitalist
PROC: 0T9130Z Drainage of Left Kidney with Drainage Device, Percutaneous Approach (ICD-10-PCS; principal; 2024-03-18 13:00)
DX: N13.39 Other hydronephrosis (principal); E87.20 Acidosis, unspecified; E44.0 Moderate protein-calorie malnutrition; Z68.1 Body mass index [BMI] 19.9 or less, adult; N17.9 Acute kidney failure, unspecified; C67.9 Malignant neoplasm of bladder, unspecified; D63.0 Anemia in neoplastic disease; J45.40 Moderate persistent asthma, uncomplicated; K21.9 Gastro-esophageal reflux disease without esophagitis; K59.09 Other constipation; N18.30 Chronic kidney disease, stage 3 unspecified; E87.5 Hyperkalemia; Z79.899 Other long term (current) drug therapy
CPT/HCPCS: 36415; 50432; 74176; 80048; 81001; 81003; 82570; 83605; 83690; 83735; 83935; 84300; 85025; 85027; 87040; 87086; 93005; 94640; 97161; 99152; 99285; C1729; C1769; C1892; C1894; J0696; J1170; J1650; J2020; J2250; J2310; J2405; J2543; J3010; Q9967

== ENCOUNTER → 2024-03-13 13:29 | Outpatient (BNV) | payer OTHER, SELFPAY | PROVIDERS: Admitting Provider Physician Assistant; Emergency Provider Emergency Medicine; PCP General Practice; Visit Provider Internal Medicine | DX: R42 Dizziness and giddiness (principal) | CPT/HCPCS: 93010 ==

== ENCOUNTER 2024-03-13 18:30 | Outpatient (BNV) | payer OTHER, SELFPAY | END 2024-03-18 13:00 | PROVIDERS: Admitting Provider Physician Assistant; Emergency Provider Emergency Medicine; PCP General Practice; Visit Provider Radiology Vascular & Interventional Radiology | DX: N13.30 Unspecified hydronephrosis (principal) | CPT/HCPCS: 50432; 99152 ==

== ENCOUNTER → 2024-03-13 18:30 | Outpatient (BNV) | payer OTHER, SELFPAY | PROVIDERS: Admitting Provider Physician Assistant; Emergency Provider Emergency Medicine; PCP General Practice; Visit Provider Internal Medicine Hypertension Specialist | DX: N17.9 Acute kidney failure, unspecified (principal); N18.30 Chronic kidney disease, stage 3 unspecified; N13.1 Hydronephrosis with ureteral stricture, not elsewhere classified; C67.9 Malignant neoplasm of bladder, unspecified | CPT/HCPCS: 99223; 99232 ==

== ENCOUNTER → 2024-03-13 18:30 | Outpatient (BNV) | payer OTHER, SELFPAY | PROVIDERS: Admitting Provider Physician Assistant; Emergency Provider Emergency Medicine; PCP General Practice; Visit Provider Internal Medicine | DX: C67.9 Malignant neoplasm of bladder, unspecified (principal) | CPT/HCPCS: 99222; 99231; 99232 ==

== ENCOUNTER → 2024-03-13 18:30 | Outpatient (BNV) | payer OTHER, SELFPAY | PROVIDERS: Admitting Provider Physician Assistant; Emergency Provider Emergency Medicine; PCP General Practice; Visit Provider Physician Assistant | DX: C67.9 Malignant neoplasm of bladder, unspecified (principal) | CPT/HCPCS: 99223; 99232; 99239 ==

== ENCOUNTER 2024-04-09 08:37 | Outpatient (REF) | payer OTHER, SELFPAY ==
--- NOTE | ~2024-04-09 | XR_ITS ---
EXAMINATION: XR CHEST CLINICAL INFORMATION: Shortness of breath, reports episodes of difficulty breathing, history of cancer, to rule out infiltrates, COMPARISON: 03/17/2023, 05/26/2022. TECHNIQUE: 3 views of the chest. FINDINGS: S-shaped thoracolumbar scoliosis. Hyperinflated lungs. Heart size is normal. There is no gross pneumothorax. Increased retrocardiac streaky opacities may represent atelectasis, although an infectious/inflammatory process should also be considered in the appropriate clinical setting. Trace blunting of the bilateral costophrenic angles may represent pleural effusions versus pleural thickening. Advanced multilevel degenerative changes in the thoracic spine. Bones are diffusely demineralized. Loss of height of lower thoracic vertebral bodies is difficult to characterize due to spinal curvature and overlying bone and soft tissue structures. Tubing and surgical clips overlie the upper abdomen. XR/XR chest 2V IMPRESSION: Increased retrocardiac streaky opacity may represent atelectasis, although an infectious/inflammatory process should also be considered in the appropriate clinical setting. Trace blunting of the bilateral costophrenic angles may represent pleural effusions versus pleural thickening. This study was presented today, April 09, 2024, for interpretation. Stat results provided at this time as requested by referring provider.
[2024-04-09 11:45] LABS: Hematocrit 27.8 % (37.0-47.0); Hemoglobin 8.5 g/dl (12.0-16.0); Mean Corpuscular HGB Conc 30.6 g/dl (31.0-35.0); Mean Corpuscular Volume 91.4 fL (80.0-98.0); Mean Platelet Volume 10.1 fL (9.4-12.3); Platelet Count 450 X10*3/uL (160-400); Red Blood Count 3.04 X10*6/uL (4.20-5.50); Red Cell Distribution Width 16.7 % (11.0-16.0); White Blood Count 3.4 X10*3/uL (4.8-10.8)
[2024-04-09 12:08] LABS: Alanine Aminotransferase 10 U/L (0-31); Albumin Level 3.4 g/dL (3.5-5.0); Alkaline Phosphatase 98 U/L (39-117); Anion Gap 14 (12-20); Aspartate Amino Transferase 14 U/L (5-31); Bilirubin Total 0.3 mg/dL (0.0-1.0); Blood Urea Nitrogen 21 mg/dL (9-16); Calcium 9.5 mg/dL (8.4-10.2); Carbon Dioxide 26 mmol/L (22-29); Chloride 104 mmol/L (96-108); Estimated Glomerular Filt Rate 54; Glucose Random 156 mg/dL (60-115); Iron 38 mcg/dL (30-160); Magnesium 1.9 mg/dL (1.6-2.6); Percent Iron Saturation 16 % (15-50); Potassium 4.5 mmol/L (3.3-5.1); Sodium 139 mmol/L (135-145); Total Iron Binding Capacity 238 mcg/dL (228-428); Total Protein 6.6 g/dL (6.5-8.0); Unsaturated Iron Binding 200 ug/dL
[2024-04-09 12:17] LABS: Ferritin 496 ng/mL (10-250); TSH reflex Free T4 1.04 uIU/mL (0.32-4.0)
[2024-04-09 12:33] LABS: Folate 12.1 ng/mL (> or = 4.0); Vitamin B12 733 pg/mL (200-900)
== END 2024-04-09 08:38 | disposition home or self-care (01) ==
LOC: HO.HHCL 08:37
PROVIDERS: Visit Provider Student in an Organized Health Care Education/Training Program
DX: R06.02 Shortness of breath (principal); N17.9 Acute kidney failure, unspecified
CPT/HCPCS: 36415; 71046; 80053; 82607; 82728; 82746; 83540; 83735; 84443; 85027

== ENCOUNTER 2024-04-12 15:19 | Outpatient (AMB) | payer OTHER, SELFPAY ==
--- NOTE | 2024-04-12 15:21 | A.OFFVIS_ITS ---
Intake Visit Reasons: H&P TURBT w/ Bladder bx Allergies shrimp Allergy (Severe, Verified 06/11/24 10:37) Hives aspirin [ASA] Allergy (Intermediate, Verified 06/11/24 10:37) RASH ibuprofen [Ibuprofen] Allergy (Intermediate, Verified 06/11/24 10:37) RASH morphine [MORPHINE] Allergy (Intermediate, Verified 06/11/24 10:37) ITCHING naproxen [From NAPROSYN] Allergy (Intermediate, Verified 06/11/24 10:37) RASH,N/V oxycodone [OXYCODONE] Allergy (Intermediate, Verified 06/11/24 10:37) NAUSEA & VOMITING, RASH sulfamethoxazole [From Bactrim] Adverse Reaction (Severe, Verified 06/11/24 10:37) Abdominal Pain trimethoprim [From Bactrim] Adverse Reaction (Severe, Verified 06/11/24 10:37) Abdominal Pain HPI Comments Details: Altaf is a pleasant female. She is a patient of . She seen for the following urologic conditions - recurrent high-grade bladder cancer invasive Telemedicine Evaluation 15 min Consultation Mobile Multimedia Chalo Video attempted Arabic translation provided by qualified medical office clerk Planned upcoming stent exchange 02/01 stent internalization Bladder TURP with fulguration - high-grade T1 Removal of catheter Recommend induction 6 weeks mitomycin-C with cytarabine Stents to remain 01/02 Worsening hydronephrosis Creatinine ratio elevate Bilateral PCN placed followed by stent internalization in operating room Labs Cr 06/[address] right hydro, left mild hydro Completed neoadjuvant chemotherapy Right PCN placed after presentation for NADEEN - creatinine resolving from 2.9 down to 0.94 - 03/[address] scan with resolution of bladder thickening, right hydronephrosis. 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 The bladder is partially distended with irregular wall thickening and trabeculated appearance. Dilated appearance of both distal ureters. Moderate right hydronephrosis. Mild left hydronephrosis. No lymphadenopathy. Bladder cancer superficial high-grade 2019 - disease progression - 12/01 muscle invasive bladder cancer Initial diagnosis with Dr. Hankins TURBT 05/30 high-grade superficial noninvasive disease Adjuvant therapy BCG June 2019 Surveillance cystoscopy - 04/30 NAD, 10/01 NAD, 10/02 NAD - trabeculated bladder with BCG change PFSH Medical History Chronic pain syndrome Osteoarthritis GERD (gastroesophageal reflux disease) History of COVID-19 Emphysema lung Hyperlipidemia Hypertension Asthma Hemorrhoids with complication UTI (urinary tract infection) Malignant neoplasm of urinary bladder Bladder mass Surgical History History of surgery History of ERCP Hx laparoscopic cholecystectomy Hx of cystoscopy History of hysterectomy with bilateral oophorectomy Hx of colonoscopy (01/17/19) History of esophagogastroduodenoscopy (EGD) Family History Father No problems noted. Mother Diabetes Brother Lung cancer Daughter Diabetes Social History Household Members: Spouse Housing: Apartment Do you presently have visiting nurse or other home services: No Alcohol intake: never Patient Tobacco Use Status: Never used Tobacco Tobacco use type: Cigarette Years Smoked: 55 Use of substances other than those prescribed or required for medical reasons: No Have you been hit, kicked, punched, or otherwise hurt by someone within the past year? If so, by whom?: No Do you feel safe in your current relationship?: Yes Do you have thoughts of harming others: None Do you have a plan to hurt others: No Plan Do you have the means to hurt others: No Recently lost weight without trying: Yes How much weight loss: 2-13 pounds Eating poorly because of decreased appetite: Yes Nutrition screen score: 4 service: No Current occupational status: retired Current occupation: rt handed Review of Systems Const All systems reviewed & are unremarkable except as noted in HPI and below Reports no additional complaints Resp Reports no additional complaints GI Reports no additional complaints Reports as per HPI Musc Reports no additional complaints Physical Exam Telemedicine evaluation Appropriate responses Regular breathing rate and rhythm HEENT Head: Yes normal to inspection Ears: hearing grossly normal bilaterally Eyes General: appearance normal, both eyes and all related structures Neck Neck: Yes normal visual inspection Chest Chest palpation & inspection: normal inspection of the chest Resp Effort & Inspection: normal respiratory effort and able to speak in complete sentences Telehealth Telehealth Telehealth Platform: Mobile Multimedia Location of provider rendering services: practice address Location of patient: address on file Patient Identification confirmed using: Name, : Yes Telehealth method: video Patient verbally consented to treatment: Yes Patient verbally consented to billing insurance company: Yes Patient informed of any privacy concerns related to visit: Yes Minutes spent on Phone/Video with Pt.: 15 Assessment & Plan Assessment & Plan (1) Malignant neoplasm of urinary bladder: Comment: multiple TURBT's Code(s): C67.9 - Malignant neoplasm of bladder, unspecified Category: Medical Qualifiers: Bladder location: unspecified site Qualified Code(s): C67.9 - Malignant neoplasm of bladder, unspecified Plan Risks, benefits and alternatives to therapy were discussed. These include but are not limited to infection, bleeding, damage to local organs and tissues, need for further interventions. Anesthetic risks regarding cardiac arrhythmia, blood clots, and potential mortality were discussed. The patient understands the typical recovery time and the outpatient nature of the procedure. After consideration of these risks the patient gives full informed consent and they wish to move ahead with the procedure. Cystoscopy, stent exchange Patient Instructions: Imaging studies, laboratory and physical exam results were discussed and reviewed in detail. No major barriers to patient understanding were identified. An opportunity to ask questions regarding the treatment plan was provided. All questions were answered. The patient expressed understanding and agreement with the above treatment plan. The patient is aware they should contact our office by phone for worsening of their current condition or the appearance of new urologic symptoms. Compliance is encouraged with any medications and followup testing that is ordered. It is a privilege to participate in the urologic care of your patient. If you have any questions or concerns regarding treatment for the above conditions, or other urologic issues, please do not hesitate to contact me. The office telephone contact is [phone]. This note is constructed using voice recognition software. While every effort has been made to ensure accuracy taxicab coordinator errors may have been included. Yours sincerely, Dr Severo Blair MD, [facility] - Urology Providers of Expert, Compassionate Care for the Genitourinary System Coding Level of Care Code Tele Est Pt Level 3 (63937) Diagnoses Malignant neoplasm of urinary bladder, unspecified site C67.9 Bladder location: unspecified site
== END 2024-04-12 16:30 | disposition home or self-care (01) ==
LOC: HO.HUSH 15:19
PROVIDERS: PCP General Practice; Visit Provider Urology
DX: C67.9 Malignant neoplasm of bladder, unspecified (principal)
CPT/HCPCS: 99213

== ENCOUNTER → 2024-04-12 15:19 | Outpatient (BNVA) | payer OTHER, SELFPAY | PROVIDERS: PCP General Practice; Visit Provider Urology ==

== ENCOUNTER 2024-04-16 08:31 | Day surgery (SDC) | payer OTHER, SELFPAY ==
--- NOTE | ~2024-04-16 | IR_ITS ---
History: Bladder cancer Procedure performed: 1. Ultrasound and fluoroscopic guided placement of a subcutaneous port in the right chest via the right internal jugular vein Physician: Jeff Chavarria MD Anesthesia: IV moderate sedation was administered under my direct supervision with intravenous fentanyl and versed and continuous physiologic monitoring for a total of 30 minutes. 12 mL of 1% lidocaine was administered at the right neck and chest core local anesthesia. Specimen: None Drain: None Estimated blood loss: Minimal Complications: None Procedure in detail: Informed and written consent was obtained and placed in patient's chart. The right upper chest and neck was prepped and draped. 1% lidocaine was injected subcutaneously at the planned port site and extended along a subcutaneous intended catheter track towards the right neck. A small incision was made at an infraclavicular location with a #15 blade. Blunt dissection was performed to create a pocket for the port. A curved micropuncture needle was then advanced from the port site to the right internal jugular vein above the clavicle under ultrasound guidance. We then steered microwire down the superior vena cava and advanced our transitional dilator through which a Henriquez wire was advanced to the inferior vena cava. Over the Henriquez wire, the peel-away sheath was placed before the port catheter was subsequently advanced and the peel-away sheath removed. The port catheter was trimmed to length and connected to the port. The port was tested and functioned appropriately and was locked with an appropriate volume of heparin. It was placed in the port pocket. The pocket was irrigated with antibiotic solution and closed with interrupted 3-0 Vicryl and overlying Dermabond. A sterile dressing was applied. Summary: Successful placement of a port via the right internal jugular vein under ultrasound and fluoroscopic guidance.
[2024-04-16 10:37] VITALS: BMI 14.9
[2024-04-16 14:45] VITALS: BP 131/62; PULSE 70; RESP 16; TEMP 36.4; O2SAT 96
[2024-04-16 15:00] VITALS: BP 124/50; PULSE 78; RESP 16; O2SAT 96
[2024-04-16 15:15] VITALS: BP 135/68; PULSE 69; RESP 16; O2SAT 96
[2024-04-16 15:30] VITALS: BP 132/66; PULSE 72; RESP 16; TEMP 36.4; O2SAT 96
== END 2024-04-16 15:36 | disposition home or self-care (01) ==
PROVIDERS: Radiology Vascular & Interventional Radiology; PCP General Practice; Visit Provider Internal Medicine
DX: Z45.2 Encounter for adjustment and management of vascular access device (principal); C67.8 Malignant neoplasm of overlapping sites of bladder; G89.4 Chronic pain syndrome; J43.9 Emphysema, unspecified; I10 Essential (primary) hypertension; Z87.891 Personal history of nicotine dependence
CPT/HCPCS: 36561; 99152; C1769; C1788; J0131; J0690; J1642; J1644; J2250; J2310; J3010

== ENCOUNTER → 2024-04-16 12:52 | Outpatient (BNV) | payer OTHER, SELFPAY | PROVIDERS: PCP General Practice; Visit Provider Radiology Vascular & Interventional Radiology | DX: C67.9 Malignant neoplasm of bladder, unspecified (principal) | CPT/HCPCS: 36561; 76937; 77001 ==

== ENCOUNTER 2024-04-22 09:04 | Day surgery (SDC) | payer OTHER, SELFPAY ==
--- NOTE | 2024-04-19 10:59 | HO.ANESPROP2 ---
Documented by User: Mitzi Kat NP 04/19/24 11:04 HPI - Anesthesia Eval Consult details Narrative: 78yo F for TUR Bladder Tumor with bladder biopsy s/p R chest port placed 04/16/24 s/p cyst, bladder fulguration 01/2024 with GA-ETT 7, ? bilat nephrostomy tubes PMFSH Active Problems Active Problems: All Active Problems Bladder cancer (Acute) Severe persistent asthma (Acute) Lumbar spinal stenosis (Acute) Chronic pain syndrome (Acute) Encounter for preoperative pulmonary examination (Acute) Ischial bursitis (Acute) Lumbar spondylosis (Acute) Levoscoliosis of lumbar spine (Acute) Lumbar degenerative disc disease (Acute) Peripheral neuropathy (Acute) Hematuria (Acute) NADEEN (acute kidney injury) (Acute) 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 (Acute) Encounter for preoperative pulmonary examination (Acute) Hydronephrosis (Acute) Candidal urinary tract infection (Acute) Bladder cancer (Chronic) Malignant neoplasm of bladder neck (Acute) Vaginal mass (Acute) COVID-19 (Acute) Sepsis (Acute) Bladder mass (Acute) Hematuria (Acute) H/O primary malignant neoplasm of urinary bladder (Acute) Osteoarthritis of shoulders, bilateral (Acute) Vaginal pain (Acute) Back pain (Acute) Recurrent cough (Acute) Dysuria (Acute) Primary osteoarthritis, left shoulder (Acute) Small intestinal bacterial overgrowth (Acute) Bronchitis (Acute) Abdominal cramping (Acute) Lumbar radiculopathy (Chronic) Hemorrhoids with complication (Acute) Right-sided ischial pain (Acute) Environmental allergies (Acute) Cough (Acute) Gastroesophageal reflux disease (Acute) Moderate persistent allergic asthma (Acute) Trochanteric bursitis, right hip (Acute) Nausea and vomiting (Acute) Chronic idiopathic constipation (Acute) Low back pain due to bilateral sciatica (Acute) Tendonitis of left rotator cuff (Acute) Trochanteric bursitis of left hip (Acute) Hemorrhoids with complication (Acute) Malignant neoplasm of urinary bladder (Acute) UTI (urinary tract infection) (Acute) Past Medical History Medical History Chronic pain syndrome Osteoarthritis GERD (gastroesophageal reflux disease) History of COVID-19 Emphysema lung Hyperlipidemia Hypertension Asthma Hemorrhoids with complication UTI (urinary tract infection) Malignant neoplasm of urinary bladder Bladder mass Family History Family History Father No problems noted. Mother Diabetes Brother Lung cancer Daughter Diabetes Family history of problems with anesthesia: No Surgical History Surgical History History of surgery History of ERCP Hx laparoscopic cholecystectomy Hx of cystoscopy History of hysterectomy with bilateral oophorectomy Hx of colonoscopy (01/17/19) History of esophagogastroduodenoscopy (EGD) History of Problems with Anesthesia: No Social History Social History Household Members: Spouse Housing: Apartment Do you presently have visiting nurse or other home services: No Alcohol intake: never Patient Tobacco Use Status: Former Tobacco user Tobacco use type: Cigarette Years Smoked: 55 Use of substances other than those prescribed or required for medical reasons: No Are you DNR?: No Advance Directives: No Advance Directives Information Provided: Yes service: No Current occupational status: retired Current occupation: rt handed Meds Allergies Allergy/AdvReac Type Severity Reaction Status Date / Time shrimp Allergy Severe Hives Verified 04/22/24 10:09 aspirin [ASA] Allergy Intermediate RASH Verified 04/16/24 10:33 ibuprofen [Ibuprofen] Allergy Intermediate RASH Verified 04/16/24 10:33 morphine [MORPHINE] Allergy Intermediate ITCHING Verified 04/16/24 10:33 naproxen [From NAPROSYN] Allergy Intermediate RASH,N/V Verified 04/16/24 10:33 oxycodone [OXYCODONE] Allergy Intermediate NAUSEA & Verified 04/16/24 10:33 VOMITING, RASH sulfamethoxazole AdvReac Severe Abdominal Verified 04/16/24 10:33 [From Bactrim] Pain trimethoprim [From Bactrim] AdvReac Severe Abdominal Verified 04/16/24 10:33 Pain Home Medications ?Medication ?Instructions ?Recorded ?Confirmed ?Last Taken ?Type ipratropium 20 mcg-albuterol 100 1 puff inhalation QID 12/28/22 04/16/24 04/22/24 History mcg/actuation mist for inhalation (Combivent Respimat) pravastatin 40 mg tablet 40 mg PO DAILY 12/28/22 04/16/24 03/12/24 History albuterol sulfate 90 mcg/actuation 2 puff inhalation Q4H PRN 03/13/24 04/16/24 04/22/24 History aerosol inhaler shortness of breath or wheezing fluticasone propionate 110 1 puff inhalation BID 03/13/24 04/16/24 03/12/24 History mcg/actuation HFA aerosol inhaler hydrocortisone 2.5 % topical cream 1 appl MA BID PRN Hemorrhoids 03/13/24 04/16/24 03/12/24 History with perineal applicator hydroxyzine HCl 25 mg tablet 25 mg PO TID PRN itchiness 03/13/24 04/16/24 Unknown History linaclotide 145 mcg capsule 145 mcg PO DAILY 03/13/24 04/16/24 03/12/24 History (Linzess) Exam Pertinent Lab Results Pertinent Lab Results: Laboratory Tests 04/09/24 08:42 WBC 3.4 L Hgb 8.5 L Hct 27.8 L Plt Count 450 H Sodium 139 Potassium 4.5 Chloride 104 Carbon Dioxide 26 BUN 21 H Creatinine 0.99 Narrative Narrative: EKG 03/2024 Vent. Rate : 085 BPM Atrial Rate : 085 BPM P-R Int : 148 ms QRS Dur : 080 ms QT Int : 374 ms P-R-T Axes : 082 065 103 degrees QTc Int : 445 ms Artifact in tracing Normal sinus rhythm cannot assess lateral leads, otherwise unremarkable When compared with ECG of 23-AUG-2022 12:59, No significant changes seen Assessment and Plan Assessment Anesthesia Assessment: Chart Reviewed Final Anesthetic Review Family History of Problems with Anesthesia: No History of Problems with Anesthesia: No Documented by User: Ketan Escamilla MD 04/22/24 14:01 [facility] Past Medical History Medical History Chronic pain syndrome Osteoarthritis GERD (gastroesophageal reflux disease) History of COVID-19 Emphysema lung Hyperlipidemia Hypertension Asthma Hemorrhoids with complication UTI (urinary tract infection) Malignant neoplasm of urinary bladder Bladder mass Family History Family History Father No problems noted. Mother Diabetes Brother Lung cancer Daughter Diabetes Surgical History Surgical History History of surgery History of ERCP Hx laparoscopic cholecystectomy Hx of cystoscopy History of hysterectomy with bilateral oophorectomy Hx of colonoscopy (01/17/19) History of esophagogastroduodenoscopy (EGD) Social History Social History Household Members: Spouse Housing: Apartment Do you presently have visiting nurse or other home services: No Alcohol intake: never Patient Tobacco Use Status: Former Tobacco user Tobacco use type: Cigarette Years Smoked: 55 Use of substances other than those prescribed or required for medical reasons: No Are you DNR?: No Advance Directives: No Advance Directives Information Provided: Yes service: No Current occupational status: retired Current occupation: rt handed Meds Allergies Allergy/AdvReac Type Severity Reaction Status Date / Time shrimp Allergy Severe Hives Verified 04/22/24 10:09 aspirin [ASA] Allergy Intermediate RASH Verified 04/16/24 10:33 ibuprofen [Ibuprofen] Allergy Intermediate RASH Verified 04/16/24 10:33 morphine [MORPHINE] Allergy Intermediate ITCHING Verified 04/16/24 10:33 naproxen [From NAPROSYN] Allergy Intermediate RASH,N/V Verified 04/16/24 10:33 oxycodone [OXYCODONE] Allergy Intermediate NAUSEA & Verified 04/16/24 10:33 VOMITING, RASH sulfamethoxazole AdvReac Severe Abdominal Verified 04/16/24 10:33 [From Bactrim] Pain trimethoprim [From Bactrim] AdvReac Severe Abdominal Verified 04/16/24 10:33 Pain Home Medications ?Medication ?Instructions ?Recorded ?Confirmed ?Last Taken ?Type ipratropium 20 mcg-albuterol 100 1 puff inhalation QID 12/28/22 04/16/24 04/22/24 History mcg/actuation mist for inhalation (Combivent Respimat) pravastatin 40 mg tablet 40 mg PO DAILY 12/28/22 04/16/24 03/12/24 History albuterol sulfate 90 mcg/actuation 2 puff inhalation Q4H PRN 03/13/24 04/16/24 04/22/24 History aerosol inhaler shortness of breath or wheezing fluticasone propionate 110 1 puff inhalation BID 03/13/24 04/16/24 03/12/24 History mcg/actuation HFA aerosol inhaler hydrocortisone 2.5 % topical cream 1 appl MA BID PRN Hemorrhoids 03/13/24 04/16/24 03/12/24 History with perineal applicator hydroxyzine HCl 25 mg tablet 25 mg PO TID PRN itchiness 03/13/24 04/16/24 Unknown History linaclotide 145 mcg capsule 145 mcg PO DAILY 03/13/24 04/16/24 03/12/24 History (Kierans) Exam Airway Mallampati Class: II TM Dist: >3cm Neck ROM: Full Loose/Missing/Broken Teeth: Yes and Lower Heart: ok Lungs: ok Assessment and Plan Assessment Anesthesia Assessment: Anesthesia Plan Discussed Final Anesthetic Review NPO: Yes ASA Class: III Final Preanesthetic Review: No Changes in Pt Med Stat, Meds/Allgs Chart Reviewed, Consent Obtained/Reviewed and Anes Risks/Benef Reviewed Patient Risk: High Procedure Risk: Low Anesthetic Plan Anesthetic Plan: GA and Agree w/ Assess. and Plan Disposition: Standard PACU
[2024-04-22 10:11] VITALS: BMI 16.6
[2024-04-22 10:25] VITALS: BP 131/60; PULSE 85; RESP 16; TEMP 37.1; O2SAT 97
--- NOTE | 2024-04-22 10:36 | PC.NURSE ---
patient right side of chest has a port that hasnt been accessed yet per patient. bandage remains on and area looks a little swollen. no redness noted. her chemo treatment is next . patient agreed to have an iv inserted until its evaluated by the doctor for access.
[2024-04-22] MEDS: Lactated Ringers 1,000 ML 100 ML IVCONT (10:45)
--- NOTE | 2024-04-22 12:43 | P.HPSUR_ITS ---
Pre-Procedural Eval Section A - 24 Hr Update-Section A only Date of Service: 04/22/24 The patient is an INPATIENT: No Changes since office visit: No Cold of Flu in the past 2 weeks, No New Medical Problems, No Changes in Medication and No Patient answered all questions The patient has been examined within 24 hours of the surgical procedure. The History & Physical has been completed within 30 days and I have reviewed it.: No Section B - Complete if H&P > 30 days Chief Complaint: Malignant neoplasm of bladder, unspecified Details of Present Illness: Bladder cancer staging, cystoscopy bladder biopsy f ulguration Relevant Family History (Specify if Yes): No Relevant Social History: None Present Medications: see Short Stay Collaborative assessment Medical History: Significant History History of Previous Operations: Relevant previous surgery/procedure and date(s) Allergies: Allergies Allergy/AdvReac Type Severity Reaction Status Date / Time shrimp Allergy Severe Hives Verified 04/22/24 10:09 aspirin [ASA] Allergy Intermediate RASH Verified 04/16/24 10:33 ibuprofen [Ibuprofen] Allergy Intermediate RASH Verified 04/16/24 10:33 morphine [MORPHINE] Allergy Intermediate ITCHING Verified 04/16/24 10:33 naproxen [From NAPROSYN] Allergy Intermediate RASH,N/V Verified 04/16/24 10:33 oxycodone [OXYCODONE] Allergy Intermediate NAUSEA & Verified 04/16/24 10:33 VOMITING, RASH sulfamethoxazole AdvReac Severe Abdominal Verified 04/16/24 10:33 [From Bactrim] Pain trimethoprim [From Bactrim] AdvReac Severe Abdominal Verified 04/16/24 10:33 Pain Review of Systems Sugical H&P ROS: Negative: Constitution, Cardiovascular, Respiratory, Neurological, Psychiatric, Hem-Onc, Allergic/Immunologic, Gastrointestinal, Genitourinary, Musculoskeletal, Integumentary, Endocrine and Eyes/Ears/Nose/Throat Exam Surgical H&P Exam: Normal: HEENT, Normal: Heart, Normal: Lungs, Normal: Extremit ies, Normal: Abdomen, Normal: Skin and Normal: Neurological Plan Diagnosis/Plan: Unchanged (Bladder cancer staging) I have reviewed the history and physical and performed a pertinent physical examination on my patient. No changes have occurred unless specified. Time Spent With Patient Time: Total time managing care of this patient today ____ minutes.
--- NOTE | 2024-04-22 12:47 | PC.NURSE ---
patient had original dressing on from a week ago for her portacath insertion. patient stated she wasnt given any discharge instructions on when to remove the dressing. called radiology and spoke to dixie and said the dressing could come off after three days and if theres any steri strips they can just fall off on their own.
[2024-04-22 13:36] VITALS: BP 102/70; PULSE 87; RESP 16; TEMP 36.6; O2SAT 100
[2024-04-22 13:41] VITALS: BP 100/61; PULSE 78; RESP 16; O2SAT 100
[2024-04-22 13:46] VITALS: BP 103/62; PULSE 78; RESP 16; O2SAT 100
[2024-04-22 13:51] VITALS: BP 114/72; PULSE 78; RESP 16; O2SAT 100
[2024-04-22 14:06] VITALS: BP 105/50; PULSE 73; RESP 16; TEMP 36.6; O2SAT 100
--- NOTE | 2024-05-02 11:16 | W.PM.OPN ---
Operative Note Operative Note Date of Service: 05/02/24 Narrative: PreOperative Diagnosis: bladder cancer Post Operative Diagnosis: bladder cancer Procedure: cystoscopy, bladder biopsy, fulguration - multiple (4) 1 cm areas Surgeon: Dr Severo Blair Anesthesia: LMA Indications for procedure: Prior bladder cancer Has undergone Staging cystoscopy Procedure: After informed consent was verified the patient was brought to the operating room and placed in a supine position. Anesthesia was administered per protocol. The patient was placed in modified dorsal lithotomy position and prepped and draped in a sterile fashion. Safety pause time-out was performed. Antibiotics being given. Cystoscopy was performed. Again lesions seen around bladder neck. Rest of bladder clear. Biopsies taken. Multiple areas fulgurated along the bladder sidewall particularly right side. Examination under anesthesia showed thickening of this area but freely mobile bladder. The patient tolerated the procedure well. They were extubated in operating room and transferred in stable conditions recovery area. Pathology: Bladder biopsies Drains: None
--- NOTE | 2024-05-17 10:49 | W.PM.OPN ---
Operative Note Operative Note Date of Service: 04/22/24 Narrative: PreOperative Diagnosis: Noninvasive bladder cancer Post Operative Diagnosis: Superficial recurrent high-grade bladder cancer Procedure: Cystoscopy, bladder biopsy, fulguration Surgeon: Dr Severo Blair Anesthesia: LMA Indications for procedure: Surveillance and restaging Procedure: After informed consent was verified the patient was brought to the operating room and placed in a supine position. Anesthesia was administered per protocol. The patient was prepped and draped in a sterile fashion. Safety pause time-out was performed. Antibiotics being given. 22 [place] Island[place] cystoscope inserted per urethra. Noted to have recurrent lesions on the right bladder sidewall above the trigone - proximally 2 cm in size. Subsequent also with lesions on the posterior aspect of the bladder. Using forceps these areas were grasped and removed. Sent for pathology. Fulguration was performed over proximally quarter-sized area on the right sidewall close to the urethra. Most recurrence was seen on the inferior aspect towards the urethra. Examination under anesthesia performed. Bladder was mobile but thickening was present on the right lateral side. She tolerated the procedure well and was transferred in stable condition to recovery area Pathology: Bladder biopsy Drains: []
== END 2024-04-22 14:33 | disposition home or self-care (01) ==
PROVIDERS: PCP General Practice; Visit Provider Urology
PROC: 0TBB8ZZ Excision of Bladder, Via Natural or Artificial Opening Endoscopic (ICD-10-PCS; CPT 52234; principal; 2024-04-22 12:10)
DX: C67.9 Malignant neoplasm of bladder, unspecified (principal); G89.4 Chronic pain syndrome; J43.9 Emphysema, unspecified; I10 Essential (primary) hypertension; E78.5 Hyperlipidemia, unspecified; K21.9 Gastro-esophageal reflux disease without esophagitis; Z88.2 Allergy status to sulfonamides; Z88.5 Allergy status to narcotic agent; Z88.6 Allergy status to analgesic agent; Z98.890 Other specified postprocedural states
CPT/HCPCS: 52234; 52204; 88305; J1956; J2704; J3010

== ENCOUNTER → 2024-04-22 09:04 | Outpatient (BNV) | payer OTHER, SELFPAY | PROVIDERS: PCP General Practice; Visit Provider Urology | DX: C67.8 Malignant neoplasm of overlapping sites of bladder (principal) | CPT/HCPCS: 52204 ==

== ENCOUNTER 2024-04-26 08:58 | Outpatient (AMB) | payer OTHER, SELFPAY ==
--- NOTE | 2024-04-26 09:04 | A.OFFVIS_ITS ---
Intake Visit Reasons: Inj-right shoulder injection Intake Note: Altaf a 78 year old female who presents today for a follow up of right shoulder, bilateral shoulder injections on 12/04/23. Patient reports injection provided her with. Her pain has returned in her right shoulder and would like to repeat injection. Allergies shrimp Allergy (Severe, Verified 04/26/24 09:18) Hives aspirin [ASA] Allergy (Intermediate, Verified 04/26/24 09:18) RASH ibuprofen [Ibuprofen] Allergy (Intermediate, Verified 04/26/24 09:18) RASH morphine [MORPHINE] Allergy (Intermediate, Verified 04/26/24 09:18) ITCHING naproxen [From NAPROSYN] Allergy (Intermediate, Verified 04/26/24 09:18) RASH,N/V oxycodone [OXYCODONE] Allergy (Intermediate, Verified 04/26/24 09:18) NAUSEA & VOMITING, RASH sulfamethoxazole [From Bactrim] Adverse Reaction (Severe, Verified 04/26/24 09:18) Abdominal Pain trimethoprim [From Bactrim] Adverse Reaction (Severe, Verified 04/26/24 09:18) Abdominal Pain HPI HPI Inj-right shoulder injection: Details: 78-year-old female, who is Congolese speaking, presents in the office today for a follow-up of right shoulder pain. The patient was last seen in the office on 12/04/23 when she was given cortisone injections in the bilateral shoulders. ? ? While in the office today, the patient reports the injection gave her relief. However, her pain has returned in the right shoulder, and she would like a repeat injection today. ? PFSH Medical History Chronic pain syndrome Osteoarthritis GERD (gastroesophageal reflux disease) History of COVID-19 Emphysema lung Hyperlipidemia Hypertension Asthma Hemorrhoids with complication UTI (urinary tract infection) Malignant neoplasm of urinary bladder Bladder mass Surgical History History of surgery History of ERCP Hx laparoscopic cholecystectomy Hx of cystoscopy History of hysterectomy with bilateral oophorectomy Hx of colonoscopy (01/17/19) History of esophagogastroduodenoscopy (EGD) Family History Father No problems noted. Mother Diabetes Brother Lung cancer Daughter Diabetes Social History Household Members: Spouse Housing: Apartment Do you presently have visiting nurse or other home services: No Alcohol intake: never Patient Tobacco Use Status: Never used Tobacco Tobacco use type: Cigarette Years Smoked: 56 service: No Current occupational status: retired Current occupation: rt handed Review of Systems Const All systems reviewed & are unremarkable except as noted in HPI and below Physical Exam Const General: cooperative, healthy appearing and no acute distress Resp Effort & Inspection: normal respiratory effort and able to speak in complete sentences Cardio Rate: regular rate Peripheral pulses: Peripheral pulses 2+ throughout GI Palpation (GI): Soft to palpation Skin Lesions: no lesions Rashes: no rashes Extrem Other: Right shoulder pain with ROM in all planes and limited ER to 45. Office Procedures Joint Injection/Aspiration Joint Injection/Aspiration Primary Site: right shoulder Prep: site was prepped using aseptic technique, ethochloride spray was applied and injection warnings given Injected: 80 mg of, DepoMedrol, with 8 mL of (2% plain lido ) and in the subcromial space Approach Used: posterolateral Procedure: The patient tolerated the procedure well, but had some pain with the injection and there was some relief with the local anesthesia Coding 59559 - Large joint Procedure code (CPT) selection complete Assessment & Plan Assessment & Plan (1) Osteoarthritis of right shoulder: Code(s): M19.011 - Primary osteoarthritis, right shoulder Category: Medical Plan Ms. Alba is a 78-year-old female, who is Congolese speaking, presents in the office today for a follow-up of right shoulder pain. The patient was last seen in the office on 12/04/23 when she was given cortisone injections in the bilateral shoulders. ? ? While in the office today, the patient reports the injection gave her relief. However, her pain has returned in the right shoulder, and she would like a repeat injection today.? ? The patient was offered a cortisone injection in the right shoulder with 80 mg of Depo-Medrol. The patient was explained the risks, benefits, and alternatives to receiving this injection. After receiving consent for the injection, the patient had the procedure done while in the office today. The patient tolerated the procedure well with no complications.? ? Follow-up will be PRN, or sooner if needed. ? Patient Instructions: Scribed by Tori Iglesias, medical billing and coding instructor, for Kim Balderas PA-C on 04/26/2024 at 9:52 am, EST.? Coding Level of Care Code Est Pt Level 3 (13293) Diagnoses Osteoarthritis of right shoulder M19.011 CPT Codes Coding - 82555 Large joint: 76043 - Large joint ([id number])
== END 2024-04-26 09:37 | disposition home or self-care (01) ==
PROVIDERS: PCP General Practice; Visit Provider Physician Assistant
DX: M19.011 Primary osteoarthritis, right shoulder (principal)
CPT/HCPCS: 20610; 99213

== ENCOUNTER → 2024-04-26 08:58 | Outpatient (BNVA) | payer OTHER, SELFPAY | PROVIDERS: PCP General Practice; Visit Provider Physician Assistant | DX: M19.011 Primary osteoarthritis, right shoulder (principal) | CPT/HCPCS: 20610; 99212; J0665; J1100 ==

== ENCOUNTER 2024-05-10 13:05 | Outpatient (AMB) | payer OTHER, SELFPAY ==
--- NOTE | 2024-05-10 13:06 | MHC.OFFVIS ---
Intake Visit Reasons: TURBT, Bladder bx- follow up Intake Note: Patient is Present for Telephone Follow Up Bladder Biopsy Urology Med: None Antibiotic Allergy: Sulfa, Trimethoprim Blood Thinner: None Dealer Card Room Required: Yes Dealer Card Room Language: Slovenian Accompanied by: Self / Same As Patient Allergies shrimp Allergy (Severe, Verified 06/11/24 10:37) Hives aspirin [ASA] Allergy (Intermediate, Verified 06/11/24 10:37) RASH ibuprofen [Ibuprofen] Allergy (Intermediate, Verified 06/11/24 10:37) RASH morphine [MORPHINE] Allergy (Intermediate, Verified 06/11/24 10:37) ITCHING naproxen [From NAPROSYN] Allergy (Intermediate, Verified 06/11/24 10:37) RASH,N/V oxycodone [OXYCODONE] Allergy (Intermediate, Verified 06/11/24 10:37) NAUSEA & VOMITING, RASH sulfamethoxazole [From Bactrim] Adverse Reaction (Severe, Verified 06/11/24 10:37) Abdominal Pain trimethoprim [From Bactrim] Adverse Reaction (Severe, Verified 06/11/24 10:37) Abdominal Pain HPI Comments Details: Altaf is a pleasant female. She is a patient of . She seen for the following urologic conditions - recurrent high-grade bladder cancer invasive Telemedicine Evaluation 15 min Consultation Holidu Chalo Video attempted Slovenian translation provided by qualified internist medical doctor md Planned upcoming stent exchange Questions discuss 02/01 stent internalization Bladder TURP with fulguration - high-grade T1 Removal of catheter Recommend induction 6 weeks mitomycin-C with cytarabine Stents to remain 01/02 Worsening hydronephrosis Creatinine ratio elevate Bilateral PCN placed followed by stent internalization in operating room Labs Cr 06/[address] right hydro, left mild hydro Completed neoadjuvant chemotherapy Right PCN placed after presentation for NADEEN - creatinine resolving from 2.9 down to 0.94 - 03/[address] scan with resolution of bladder thickening, right hydronephrosis. 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 The bladder is partially distended with irregular wall thickening and trabeculated appearance. Dilated appearance of both distal ureters. Moderate right hydronephrosis. Mild left hydronephrosis. No lymphadenopathy. Bladder cancer superficial high-grade 2019 - disease progression - 12/01 muscle invasive bladder cancer Initial diagnosis with Dr. Hankins TURBT 05/30 high-grade superficial noninvasive disease Adjuvant therapy BCG June 2019 Surveillance cystoscopy - 04/30 NAD, 10/01 NAD, 10/02 NAD - trabeculated bladder with BCG change PFSH Medical History Chronic pain syndrome Osteoarthritis GERD (gastroesophageal reflux disease) History of COVID-19 Emphysema lung Hyperlipidemia Hypertension Asthma Hemorrhoids with complication UTI (urinary tract infection) Malignant neoplasm of urinary bladder Bladder mass Surgical History History of surgery History of ERCP Hx laparoscopic cholecystectomy Hx of cystoscopy History of hysterectomy with bilateral oophorectomy Hx of colonoscopy (01/17/19) History of esophagogastroduodenoscopy (EGD) Family History Father No problems noted. Mother Diabetes Brother Lung cancer Daughter Diabetes Social History Household Members: Spouse Housing: Apartment Do you presently have visiting nurse or other home services: No Alcohol intake: never Patient Tobacco Use Status: Never used Tobacco Tobacco use type: Cigarette Years Smoked: 56 service: No Current occupational status: retired Current occupation: rt handed Review of Systems Const All systems reviewed & are unremarkable except as noted in HPI and below Reports no additional complaints Resp Reports no additional complaints GI Reports no additional complaints Reports as per HPI Musc Reports no additional complaints Physical Exam Telemedicine evaluation Appropriate responses Regular breathing rate and rhythm HEENT Head: Yes normal to inspection Ears: hearing grossly normal bilaterally Eyes General: appearance normal, both eyes and all related structures Neck Neck: Yes normal visual inspection Chest Chest palpation & inspection: normal inspection of the chest Resp Effort & Inspection: normal respiratory effort and able to speak in complete sentences Telehealth Telehealth Telehealth Platform: [employer] Location of provider rendering services: practice address Location of patient: address on file Patient Identification confirmed using: Name, : Yes Telehealth method: video Patient verbally consented to treatment: Yes Patient verbally consented to billing insurance company: Yes Patient informed of any privacy concerns related to visit: Yes Minutes spent on Phone/Video with Pt.: 15 Assessment & Plan Assessment & Plan (1) Malignant neoplasm of urinary bladder: Comment: multiple TURBT's Code(s): C67.9 - Malignant neoplasm of bladder, unspecified Category: Medical Qualifiers: Bladder location: unspecified site Qualified Code(s): C67.9 - Malignant neoplasm of bladder, unspecified (2) 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 No major barriers to patient understanding were identified. An opportunity to ask questions regarding the treatment plan was provided. All questions were answered. The patient expressed understanding and agreement with the above treatment plan. The patient is aware they should contact our office by phone for worsening of their current condition or the appearance of new urologic symptoms. Compliance is encouraged with any medications and followup testing that is ordered. It is a privilege to participate in the urologic care of your patient. If you have any questions or concerns regarding treatment for the above conditions, or other urologic issues, please do not hesitate to contact me. The office telephone contact is [phone]. This note is constructed using voice recognition software. While every effort has been made to ensure accuracy wet wash assembler errors may have been included. Yours sincerely, Dr Severo Blair MD, [facility] - Urology Providers of Expert, Compassionate Care for the Genitourinary System Coding Level of Care Code Tele Est Pt Level 3 (07470) Diagnoses Malignant neoplasm of urinary bladder, unspecified site C67.9 Bladder location: unspecified site 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 N13.30; C67.9
== END 2024-05-10 16:30 | disposition left against medical advice (07) ==
LOC: HO.HUSH 13:05
PROVIDERS: PCP General Practice; Visit Provider Urology
DX: C67.9 Malignant neoplasm of bladder, unspecified (principal); N13.30 Unspecified hydronephrosis
CPT/HCPCS: 99213

== ENCOUNTER → 2024-05-10 13:05 | Outpatient (BNVA) | payer OTHER, SELFPAY | PROVIDERS: PCP General Practice; Visit Provider Urology ==

== ENCOUNTER 2024-05-22 10:12 | Outpatient (AMB) | payer OTHER, SELFPAY ==
[2024-05-22 10:13] VITALS: BP 119/60; PULSE 89; O2SAT 96; BMI 18.1
--- NOTE | 2024-05-22 10:13 | MHC.OFFVIS ---
Vital Signs 05/22/24 10:13 Height 5 ft 2 in Weight 99 lb 3.328 oz BMI 18.1 BP 119/60 Blood Pressure Location Rt brachial Position Sitting Pulse 89 Pulse Source Doppler Pulse Oximetry (%) 96 Oxygen Delivery Method Room Air Intake Visit Reasons: copd Microwave Radio Technician Required: Yes Microwave Radio Technician Name: Latricia crook Brett Allergies shrimp Allergy (Severe, Verified 05/10/24 13:08) Hives aspirin [ASA] Allergy (Intermediate, Verified 05/10/24 13:08) RASH ibuprofen [Ibuprofen] Allergy (Intermediate, Verified 05/10/24 13:08) RASH morphine [MORPHINE] Allergy (Intermediate, Verified 05/10/24 13:08) ITCHING naproxen [From NAPROSYN] Allergy (Intermediate, Verified 05/10/24 13:08) RASH,N/V oxycodone [OXYCODONE] Allergy (Intermediate, Verified 05/10/24 13:08) NAUSEA & VOMITING, RASH sulfamethoxazole [From Bactrim] Adverse Reaction (Severe, Verified 05/10/24 13:08) Abdominal Pain trimethoprim [From Bactrim] Adverse Reaction (Severe, Verified 05/10/24 13:08) Abdominal Pain HPI HPI copd: Details: 78-year-old lady, former approximately 15 pack-year smoker, quit 2014 followed for dyspnea on exertion and moderate to severe persistent asthma.? She continues to use Nucala, Flovent, and Combivent with good control of her underlying symptoms. She denies any recent exacerbations. [facility] Medical History Chronic pain syndrome Osteoarthritis GERD (gastroesophageal reflux disease) History of COVID-19 Emphysema lung Hyperlipidemia Hypertension Asthma Hemorrhoids with complication UTI (urinary tract infection) Malignant neoplasm of urinary bladder Bladder mass Surgical History History of surgery History of ERCP Hx laparoscopic cholecystectomy Hx of cystoscopy History of hysterectomy with bilateral oophorectomy Hx of colonoscopy (01/17/19) History of esophagogastroduodenoscopy (EGD) Family History Father No problems noted. Mother Diabetes Brother Lung cancer Daughter Diabetes Social History Household Members: Spouse Housing: Apartment Do you presently have visiting nurse or other home services: No Alcohol intake: never Patient Tobacco Use Status: Never used Tobacco Tobacco use type: Cigarette Years Smoked: 56 service: No Current occupational status: retired Current occupation: rt handed Review of Systems Const Denies daytime sleepiness, Denies excessive sweating, Denies fatigue, Denies fever(s), Denies lethargy, Denies malaise, Denies night sweats, Denies snoring and Denies weight loss Eyes Denies blurry vision and Denies itchy eyes ENT Denies nasal congestion, Denies post nasal drip, Denies sinus pain, Denies sinus pressure and Denies other ( Thrush) Card Denies chest pain, Denies pedal edema, Denies dyspnea, Denies orthopnea and Denies paroxysmal nocturnal dyspnea Resp Denies cough, Denies hemoptysis, Denies excessive phlegm production, Denies dyspnea, Denies snoring and Denies wheezing GI Denies abdominal pain and Denies heartburn Musc Denies myalgias, Denies arthralgias and Denies joint swelling Skin/Breast Denies rash Neuro Denies memory loss and Denies seizure-like activity Psych Denies abnormal sleep pattern, Denies anxiety and Denies memory loss Endo Denies excessive sweating, Denies fatigue and Denies heat intolerance Elio/Lymph Denies easy bruising Aller/Immun Denies itchy eyes, Denies seasonal rhinorrhea and Denies wheezing Physical Exam Vital Signs: Last Vital Signs Pulse 89 05/22/24 10:13 BP 119/60 05/22/24 10:13 Pulse Ox 96 05/22/24 10:13 Oxygen Delivery Method Room Air 05/22/24 10:13 BMI result Body Mass Index 18.1 Const General: no acute distress and alert Nutritional Appearance: not obese Orientation/consciousness: Other orientation findings ( oriented) HEENT Head: Yes atraumatic Eyes General: appearance normal, both eyes and all related structures Sclerae: sclerae normal EOM: EOMs intact bilaterally Neck Neck: Yes supple Lymphatic: no lymphadenopathy noted Resp Effort & Inspection: normal respiratory effort and no use of accessory muscles Auscultation: clear to auscultation bilaterally Cardio Rate: regular rate Rhythm: regular rhythm Heart sounds: no gallops, no murmurs and no rubs Skin General skin exam: other ( warm) Extrem General: No clubbing, No cyanosis and No edema Assessment & Plan Assessment & Plan (1) Severe persistent asthma: Code(s): J45.50 - Severe persistent asthma, uncomplicated Category: Medical Plan: Well controlled on current regimen of Nucala, Flovent, and Combivent. Continue current regimen. (2) Environmental allergies: Code(s): Z91.09 - Other allergy status, other than to drugs and biological substances Category: Medical Plan: Well controlled on Nucala. Continue current regimen. Coding Level of Care Code Est Pt Level 4 (59637) Diagnoses Severe persistent asthma J45.50 Environmental allergies Z91.09
== END 2024-05-22 10:33 | disposition home or self-care (01) ==
PROVIDERS: PCP General Practice; Visit Provider Internal Medicine Pulmonary Disease
DX: J45.50 Severe persistent asthma, uncomplicated (principal); Z91.09 Other allergy status, other than to drugs and biological substances
CPT/HCPCS: 99214

== ENCOUNTER → 2024-05-22 10:12 | Outpatient (BNVA) | payer OTHER, SELFPAY | PROVIDERS: PCP General Practice; Visit Provider Internal Medicine Pulmonary Disease | DX: J43.9 Emphysema, unspecified (principal); R06.00 Dyspnea, unspecified; J45.50 Severe persistent asthma, uncomplicated; Z91.09 Other allergy status, other than to drugs and biological substances; Z71.2 Person consulting for explanation of examination or test findings; Z87.891 Personal history of nicotine dependence; Z79.899 Other long term (current) drug therapy | CPT/HCPCS: 99212 ==

== ENCOUNTER 2024-05-22 11:58 | Outpatient (AMB) | payer OTHER, SELFPAY ==
--- NOTE | 2024-05-22 12:00 | A.OFFVIS_ITS ---
Intake Visit Reasons: TURBT, Bladder bx- follow up Intake Note: Patient is present for Telephone Turbt follow up Restorer Paper And Prints Required: Yes Restorer Paper And Prints Language: Kosovan Biomedical Technician: Biomedical Technician Present (Daughter will be on phone) Accompanied by: Daughter Allergies shrimp Allergy (Severe, Verified 07/28/24 07:58) Hives aspirin [ASA] Allergy (Intermediate, Verified 07/28/24 07:58) RASH ibuprofen [Ibuprofen] Allergy (Intermediate, Verified 07/28/24 07:58) RASH morphine [MORPHINE] Allergy (Intermediate, Verified 07/28/24 07:58) ITCHING naproxen [From NAPROSYN] Allergy (Intermediate, Verified 07/28/24 07:58) RASH,N/V oxycodone [OXYCODONE] Allergy (Intermediate, Verified 07/28/24 07:58) NAUSEA & VOMITING, RASH sulfamethoxazole [From Bactrim] Adverse Reaction (Severe, Verified 07/28/24 07:58) Abdominal Pain trimethoprim [From Bactrim] Adverse Reaction (Severe, Verified 07/28/24 07:58) Abdominal Pain HPI Comments Details: Altaf is a pleasant female. She is a patient of . She seen for the following urologic conditions - recurrent high-grade bladder cancer invasive Telemedicine Evaluation 15 min Consultation Ad[employer] [place] Video attempted Kosovan translation provided by qualified medical records analyst Upcoming stent exchange with bladder biopsy 02/01 stent internalization Bladder TURP with fulguration - high-grade T1 Removal of catheter Recommend induction 6 weeks mitomycin-C with cytarabine Stents to remain 01/02 Worsening hydronephrosis Creatinine ratio elevate Bilateral PCN placed followed by stent internalization in operating room Labs Cr 06/[address] right hydro, left mild hydro Completed neoadjuvant chemotherapy Right PCN placed after presentation for NADEEN - creatinine resolving from 2.9 down to 0.94 - 03/[address] scan with resolution of bladder thickening, right hydronephrosis. 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 The bladder is partially distended with irregular wall thickening and trabeculated appearance. Dilated appearance of both distal ureters. Moderate right hydronephrosis. Mild left hydronephrosis. No lymphadenopathy. Bladder cancer superficial high-grade 2019 - disease progression - 12/01 muscle invasive bladder cancer Initial diagnosis with Dr. Hankins TURBT 05/30 high-grade superficial noninvasive disease Adjuvant therapy BCG June 2019 Surveillance cystoscopy - 04/30 NAD, 10/01 NAD, 10/02 NAD - trabeculated bladder with BCG change PFSH Medical History Chronic pain syndrome Osteoarthritis GERD (gastroesophageal reflux disease) History of COVID-19 Emphysema lung Hyperlipidemia Hypertension Asthma Hemorrhoids with complication UTI (urinary tract infection) Malignant neoplasm of urinary bladder Bladder mass Surgical History History of surgery History of ERCP Hx laparoscopic cholecystectomy Hx of cystoscopy History of hysterectomy with bilateral oophorectomy Hx of colonoscopy (01/17/19) History of esophagogastroduodenoscopy (EGD) Family History Father No problems noted. Mother Diabetes Brother Lung cancer Daughter Diabetes Social History Household Members: Spouse Housing: Apartment Do you presently have visiting nurse or other home services: No Alcohol intake: never Patient Tobacco Use Status: Never used Tobacco Tobacco use type: Cigarette Years Smoked: 55 Use of substances other than those prescribed or required for medical reasons: No Have you been hit, kicked, punched, or otherwise hurt by someone within the past year? If so, by whom?: No Do you feel safe in your current relationship?: Yes Do you have thoughts of harming others: None Do you have a plan to hurt others: No Plan Do you have the means to hurt others: No Recently lost weight without trying: Yes How much weight loss: 2-13 pounds Eating poorly because of decreased appetite: Yes Nutrition screen score: 4 service: No Current occupational status: retired Current occupation: rt handed Review of Systems Const All systems reviewed & are unremarkable except as noted in HPI and below Reports no additional complaints Resp Reports no additional complaints GI Reports no additional complaints Reports as per HPI Musc Reports no additional complaints Physical Exam Telemedicine evaluation Appropriate responses Regular breathing rate and rhythm HEENT Head: Yes normal to inspection Ears: hearing grossly normal bilaterally Eyes General: appearance normal, both eyes and all related structures Neck Neck: Yes normal visual inspection Chest Chest palpation & inspection: normal inspection of the chest Resp Effort & Inspection: normal respiratory effort and able to speak in complete sentences Telehealth Telehealth Telehealth Platform: AdXpose Location of provider rendering services: practice address Location of patient: address on file Patient Identification confirmed using: Name, : Yes Telehealth method: video Patient verbally consented to treatment: Yes Patient verbally consented to billing insurance company: Yes Patient informed of any privacy concerns related to visit: Yes Minutes spent on Phone/Video with Pt.: 15 Assessment & Plan Assessment & Plan (1) Malignant neoplasm of urinary bladder: Comment: multiple TURBT's Code(s): C67.9 - Malignant neoplasm of bladder, unspecified Category: Medical Qualifiers: Bladder location: unspecified site Qualified Code(s): C67.9 - Malignant neoplasm of bladder, unspecified Plan plan procedure Patient Instructions: Imaging studies, laboratory and physical exam results were discussed and reviewed in detail. No major barriers to patient understanding were identified. An opportunity to ask questions regarding the treatment plan was provided. All questions were answered. The patient expressed understanding and agreement with the above treatment plan. The patient is aware they should contact our office by phone for worsening of their current condition or the appearance of new urologic symptoms. Compliance is encouraged with any medications and followup testing that is ordered. It is a privilege to participate in the urologic care of your patient. If you have any questions or concerns regarding treatment for the above conditions, or other urologic issues, please do not hesitate to contact me. The office telephone contact is [phone]. This note is constructed using voice recognition software. While every effort has been made to ensure accuracy padder errors may have been included. Yours sincerely, Dr Severo Blair MD, ZACKARY [facility] - Urology Providers of Expert, Compassionate Care for the Genitourinary System Coding Level of Care Code Tele Est Pt Level 3 (25782) Diagnoses Malignant neoplasm of urinary bladder, unspecified site C67.9 Bladder location: unspecified site
== END 2024-05-22 13:55 | disposition home or self-care (01) ==
LOC: HO.HUSH 11:58
PROVIDERS: PCP General Practice; Visit Provider Urology
DX: C67.9 Malignant neoplasm of bladder, unspecified (principal)
CPT/HCPCS: 99442

== ENCOUNTER 2024-06-11 10:32 | Outpatient (AMB) | payer OTHER, SELFPAY ==
--- NOTE | 2024-06-11 10:34 | A.OFFVIS_ITS ---
Intake Visit Reasons: Bandage check/H&P Nephrostomy tube change Intake Note: Patient is Present for Follow Up Bandage Check/H&P Nephrostomy Tube Change/[facility] ER Visit 03/13 UTI Urology Medication: None Antibiotic Allergies:Sulfa, Trimethroprim Blood Thinners:None Associate Business Analyst Required: Yes Associate Business Analyst Language: Landscaping Supervisor Services: Associate Business Analyst Present Information Interpreted: clinical only Accompanied by: Self / Same As Patient Allergies shrimp Allergy (Severe, Verified 06/11/24 10:37) Hives aspirin [ASA] Allergy (Intermediate, Verified 06/11/24 10:37) RASH ibuprofen [Ibuprofen] Allergy (Intermediate, Verified 06/11/24 10:37) RASH morphine [MORPHINE] Allergy (Intermediate, Verified 06/11/24 10:37) ITCHING naproxen [From NAPROSYN] Allergy (Intermediate, Verified 06/11/24 10:37) RASH,N/V oxycodone [OXYCODONE] Allergy (Intermediate, Verified 06/11/24 10:37) NAUSEA & VOMITING, RASH sulfamethoxazole [From Bactrim] Adverse Reaction (Severe, Verified 06/11/24 10:37) Abdominal Pain trimethoprim [From Bactrim] Adverse Reaction (Severe, Verified 06/11/24 10:37) Abdominal Pain HPI Comments Details: Altaf is a pleasant female. She is a patient of . She seen for the following urologic conditions - recurrent high-grade bladder cancer invasive Albanian translation provided by qualified medical lab scientist Stents had to be replaced externally Have been in since January Plan on stent exchange next week Dressings managed today Plan for bladder check in 2 months 02/01 stent internalization Bladder TURP with fulguration - high-grade T1 Removal of catheter Recommend induction 6 weeks mitomycin-C with cytarabine Stents to remain 01/02 Worsening hydronephrosis Creatinine ratio elevate Bilateral PCN placed followed by stent internalization in operating room Labs Cr 06/[address] right hydro, left mild hydro Completed neoadjuvant chemotherapy Right PCN placed after presentation for NADEEN - creatinine resolving from 2.9 down to 0.94 - 03/[address] scan with resolution of bladder thickening, right hydronephrosis. 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 The bladder is partially distended with irregular wall thickening and trabeculated appearance. Dilated appearance of both distal ureters. Moderate right hydrone phrosis. Mild left hydronephrosis. No lymphadenopathy. Bladder cancer superficial high-grade 2018 - disease progression - 12/01 muscle invasive bladder cancer Initial diagnosis with Dr. Hankins TURBT 05/30 high-grade superficial noninvasive disease Adjuvant therapy BCG June 2019 Surveillance cystoscopy - 04/30 NAD, 10/01 NAD, 10/02 NAD - trabeculated bladder with BCG change PFSH Medical History Chronic pain syndrome Osteoarthritis GERD (gastroesophageal reflux disease) History of COVID- Emphysema lung Hyperlipidemia Hypertension Asthma Hemorrhoids with complication UTI (urinary tract infection) Malignant neoplasm of urinary bladder Bladder mass Surgical History History of surgery History of ERCP Hx laparoscopic cholecystectomy Hx of cystoscopy History of hysterectomy with bilateral oophorectomy Hx of colonoscopy (01/17/19) History of esophagogastroduodenoscopy (EGD) Family History Father No problems noted. Mother Diabetes Brother Lung cancer Daughter Diabetes Social History Household Members: Spouse Housing: Apartment Do you presently have visiting nurse or other home services: No Alcohol intake: never Patient Tobacco Use Status: Never used Tobacco Tobacco use type: Cigarette Years Smoked: 56 service: No Current occupational status: retired Current occupation: rt handed Review of Systems Const Denies chills and Denies fever(s) Card Reports no additional complaints and Denies syncope Resp Denies cough GI Denies abdominal pain and Denies heartburn Reports as per HPI and Denies change in libido Neuro Denies syncope Psych Denies change in libido Endo Denies change in libido Physical Exam Const General: cooperative, healthy appearing, comfortable and no acute distress Orientation/consciousness: patient oriented x3 HEENT Face and sinus: Yes normal facial exam Mouth: moist mucous membranes Neck Neck: Yes normal visual inspection, Yes full ROM and Yes trachea midline Chest Chest palpation & inspection: normal inspection of the chest Resp Effort & Inspection: normal respiratory effort, able to speak in complete sentences and no respiratory distress GI Inspection: Yes normal to inspection Back/Spine/Pelvis Cervical Spine: normal cervical lordosis Thoracic/Lumbar Spine: thoracic and lumbar spine normal to inspection Skin General skin exam: no rashes or lesions noted Neuro General: patient oriented x3, gait normal, tone normal and moves all extremities Extrem General: Yes normal to inspection and Yes capillary refill normal Assessment & Plan Assessment & Plan (1) Bladder cancer: Code(s): C67.9 - Malignant neoplasm of bladder, unspecified Category: Medical (2) 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 These include but are not limited to infection, bleeding, damage to local organs and tissues, need for further interventions. Anesthetic risks regarding cardiac arrhythmia, blood clots, and potential mortality were discussed. The patient understands the typical recovery time and the outpatient nature of the procedure. After consideration of these risks the patient gives full informed consent and they wish to move ahead with the procedure. Bilateral external nephrostomy tube exchange Plan in August for cystoscopy bladder biopsy and fulguration Patient Instructions: Imaging studies, laboratory and physical exam results were discussed and reviewed in detail. No major barriers to patient understanding were identified. An opportunity to ask questions regarding the treatment plan was provided. All questions were answered. The patient expressed understanding and agreement with the above treatment plan. The patient is aware they should contact our office by phone for worsening of their current condition or the appearance of new urologic symptoms. Compliance is encouraged with any medications and followup testing that is ordered. It is a privilege to participate in the urologic care of your patient. If you have any questions or concerns regarding treatment for the above conditions, or other urologic issues, please do not hesitate to contact me. The office telephone contact is [phone]. This note is constructed using voice recognition software. While every effort has been made to ensure accuracy laborer prestressed concrete errors may have been included. 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
== END 2024-06-11 11:31 | disposition home or self-care (01) ==
LOC: HO.HUSH 10:32
PROVIDERS: PCP General Practice; Visit Provider Urology
DX: C67.9 Malignant neoplasm of bladder, unspecified (principal); N13.30 Unspecified hydronephrosis
CPT/HCPCS: 99213

== ENCOUNTER → 2024-06-11 10:32 | Outpatient (BNVA) | payer OTHER, SELFPAY | PROVIDERS: PCP General Practice; Visit Provider Urology | DX: C67.9 Malignant neoplasm of bladder, unspecified (principal); N13.30 Unspecified hydronephrosis; Z43.6 Encounter for attention to other artificial openings of urinary tract | CPT/HCPCS: 99212 ==

== ENCOUNTER 2024-06-12 10:09 | Day surgery (SDC) | payer OTHER, SELFPAY ==
--- NOTE | ~2024-06-12 | IR_ITS ---
FLUOROSCOPIC BILATERAL NEPHROSTOMY TUBE EXCHANGE History: Patient with bilateral nephrostomy tubes due to bladder cancer and bilateral ureteral obstruction. Patient presents for three-month maintenance change. Procedure: Patient was informed and consented to the procedure. The patient's right back was prepped and draped in routine sterile fashion. 1% buffered lidocaine was used as anesthetic around the insertion site. The catheter was cut and an Amplatz wire was placed through the tube and coiled into the renal pelvis. The old catheter was removed and over the wire. A new 8 Namibian locking pigtail catheter was advanced over the wire. The wire was removed. 5 mL of contrast was injected to ensure proper positioning of the catheter in the renal pelvis. A 3-0 Ethilon suture was used to secure the catheter to the skin. A sterile dressing was applied. Next,the patient's left back was prepped and draped in routine sterile fashion. 1% buffered lidocaine was used as anesthetic around the insertion site. The catheter was cut and an Amplatz wire was placed through the tube and coiled into the renal pelvis.The old catheter was removed and over the wire. A new 8 Namibian locking pigtail catheter was advanced over the wire. The wire was removed. 5 mL of contrast was injected to ensure proper positioning of the catheter in the renal pelvis. A 3-0 Ethilon suture was used to secure the catheter to the skin. A sterile dressing was applied. Total fluoroscopy time was 2.28 minutes. This procedure performed by Curtis Mariscal PA-C, and supervised by Dr. Nelson Electronically signed by: Molina Chavarria MD 07/08/2024 02:31 PM EDT
[2024-06-12 11:38] VITALS: BP 114/64; PULSE 92; RESP 18; TEMP 36.1; O2SAT 95; BMI 17.0
[2024-06-12 14:00] VITALS: BP 119/50; PULSE 82; RESP 16; TEMP 36.7; O2SAT 97
== END 2024-06-12 14:30 | disposition home or self-care (01) ==
PROVIDERS: Physician Assistant Surgical; PCP General Practice; Visit Provider Nurse Practitioner Family
DX: N13.5 Crossing vessel and stricture of ureter without hydronephrosis (principal); C67.9 Malignant neoplasm of bladder, unspecified; N13.30 Unspecified hydronephrosis; G89.4 Chronic pain syndrome; M19.90 Unspecified osteoarthritis, unspecified site; J43.9 Emphysema, unspecified; J45.909 Unspecified asthma, uncomplicated; I10 Essential (primary) hypertension; E78.5 Hyperlipidemia, unspecified; Z88.1 Allergy status to other antibiotic agents; Z88.2 Allergy status to sulfonamides; Z88.6 Allergy status to analgesic agent; Z88.5 Allergy status to narcotic agent
CPT/HCPCS: 50435; C1729; C1769; C1887; C1892; C1894; J1642; J2003; J2310; J3010; Q9967

== ENCOUNTER → 2024-06-12 12:50 | Outpatient (BNV) | payer OTHER, SELFPAY | PROVIDERS: PCP General Practice; Visit Provider Physician Assistant Surgical | DX: C67.9 Malignant neoplasm of bladder, unspecified (principal); N13.30 Unspecified hydronephrosis | CPT/HCPCS: 50435 ==

== ENCOUNTER → 2024-07-11 09:35 | Outpatient (BNV) | payer OTHER, SELFPAY | PROVIDERS: PCP General Practice; Visit Provider Radiology Diagnostic Radiology | DX: N32.89 Other specified disorders of bladder (principal) | CPT/HCPCS: 72197 ==

== ENCOUNTER 2024-07-11 09:38 | Outpatient (REF) | payer OTHER, SELFPAY ==
[2024-07-11] MEDS: gadobutroL 7.5 ML VIAL IVPUSH (11:13)
== END 2024-07-11 09:39 | disposition home or self-care (01) ==
LOC: HO.MRI 09:38
PROVIDERS: PCP General Practice; Visit Provider Internal Medicine
DX: Z85.51 Personal history of malignant neoplasm of bladder (principal)
CPT/HCPCS: 72197; A9585

== ENCOUNTER 2024-07-28 07:41 | Emergency (ER) | payer OTHER, SELFPAY ==
--- NOTE | ~2024-07-28 | CT_ITS ---
EXAMINATION: CT ABDOMEN AND PELVIS WITH CONTRAST CLINICAL INFORMATION: Flank pain. Bladder cancer. Hydronephrosis. COMPARISON: Multiple priors, most recent pelvic MRI dated 07/11/[address] abdomen/pelvis dated 03/13/2024. TECHNIQUE: Multidetector volumetric images were obtained from the superior aspect of the liver through the pubic symphysis following administration 85 mL of Omnipaque 350 intravenous contrast. Sagittal and coronal reformatted images were obtained on the technologist's workstation. Oral contrast: No. This CT examination was performed using dose optimization techniques as appropriate, variously including the following: *Automated exposure control *Adjustment of mA and/or kV according to patient size (this includes techniques or standardized protocols for targeted exams where dose is matched to indication/reason for exam; i.e. extremities or head) *Use of iterative reconstruction technique DLP: 310 mGy-cm FINDINGS: LUNG BASES: The visualized lung bases are unremarkable. LIVER, GALLBLADDER, AND BILIARY TREE: The liver is normal in size, shape, and attenuation. No focal hepatic lesion or biliary ductal dilatation is present. Status post cholecystectomy. PANCREAS: Unremarkable. SPLEEN: Unremarkable. ADRENAL GLANDS: Unremarkable. KIDNEYS AND URETERS: The kidneys are normal in size, shape, and attenuation. Bilateral percutaneous nephrostomy tubes. Left extrarenal pelvis with minimal left-sided hydronephrosis. No right-sided hydronephrosis. Moderate left hydroureter with peripheral enhancement. No renal or ureteral stone. No discrete renal parenchymal lesion. BLADDER: Circumferential urinary bladder wall thickening and enhancement which is asymmetric and more prominent inferiorly, similar when compared to the recent MRI. No evidence of perforation. GASTROINTESTINAL TRACT: No small or large bowel obstruction. Sigmoid diverticulosis without evidence of acute diverticulitis. No bowel wall thickening or inflammatory change. Mild stool burden. Unremarkable appendix. PERITONEAL CAVITY: No intra-abdominal free air or free fluid. ABDOMINAL WALL: No significant hernia is appreciated. LYMPH NODES: There are prominent retroperitoneal lymph nodes adjacent to the infrarenal abdominal aorta with the largest measuring up to 1.0 x 1.6 cm in greatest axial dimension (axial image 37/84). This previously measured approximately 0.6 x 1.2 cm. Additional retroperitoneal lymph nodes, also slightly increased in size when compared to the prior examination. VASCULAR: No abdominal aortic dilatation or dissection. Atherosclerotic calcifications. Unremarkable IVC. PELVIC VISCERA: Status post hysterectomy. Multiple pelvic phleboliths. OSSEOUS STRUCTURES: Severe levocurvature of the lumbar spine with multilevel degenerative disc disease and facet arthropathy is redemonstrated. No acute osseous abnormality. CT/CT abdomen pelvis w IV con IMPRESSION: 1. Bilateral percutaneous nephrostomy tubes. Left extrarenal pelvis with minimal left-sided hydronephrosis, decreased when compared to the prior examination. Moderate left hydroureter with peripheral enhancement. No renal or ureteral stone. No right-sided hydronephrosis. 2. Circumferential urinary bladder wall thickening and enhancement which is more prominent inferiorly, similar when compared to the recent MRI. No evidence of perforation. 3. Prominent retroperitoneal lymph nodes, slightly increased in size when compared to the prior examination. 4. Additional chronic findings are unchanged. Fleischner guidelines were followed. Electronically signed by: Yossi Nair MD 07/28/2024 09:58 AM MIRIAN
--- NOTE | 2024-07-28 07:50 | ECG_ITS ---
Test Reason : ABD PAIN Blood Pressure : / mmHG Vent. Rate : 084 BPM Atrial Rate : 084 BPM P-R Int : 172 ms QRS Dur : 072 ms QT Int : 362 ms P-R-T Axes : 067 029 051 degrees QTc Int : 427 ms Normal sinus rhythm Normal ECG When compared with ECG of 13-MAR-2024 13:38, Criteria for Lateral infarct are no longer Present Non-specific change in ST segment in Lateral leads Nonspecific T wave abnormality no longer evident in Lateral leads Referred By: Thelma Coronado Electronically Signed By:Christian Kan
[2024-07-28 07:52] VITALS: BP 115/72; BP 124/68; PULSE 101; PULSE 105; RESP 18; TEMP 36.5; O2SAT 94; O2SAT 95; BMI 19.0
--- NOTE | 2024-07-28 07:52 | ED_ITS ---
HPI - Abdominal Pain General Chief Complaint: Urogenital-Female Stated Complaint: KIDNEY PAIN BILATERALLY PER EMS Source: patient, EMS and old records reviewed Mode of arrival: EMS Limitations: no limitations History of Present Illness ED Provider: DARY HPI narrative: 78 yo female with PMH of GERD, HLD, HTN, asthma, high-grade bladder CA s/p TURBT, UTI, bilateral nephrostomy tubes, currently on chemotherapy she has worsening disease as of MRI 12/2023. She is currently on directed therapy. She presents today with c/o all night low back and suprapubic pain then noted scant blood from vaginal area. No fevers, mild nausea. She states she feels pressure in her vagina as well. She tried to take zofran [employer]. She notes her nephrostomy tubes did not change in color. Has hx of serratia UTI - S to ceftriaxone. MD elicited complaint: abdominal pain Pertinent past history: other Onset (ago): day(s) (all night) Pain Consistency: constant Location: L flank, R flank and suprapubic Severity: moderate Quality: aching Radiation: back Migration to: no migration Exacerbating factors: movement Relieving factors: nothing Context: history of similar episodes Associated symptoms: nausea and other (vaginal bleeding) Treatments prior to arrival: other Related Data Home Medications ?Medication ?Instructions ?Recorded ?Confirmed ipratropium 20 mcg-albuterol 100 1 puff inhalation QID 12/28/22 04/16/24 mcg/actuation mist for inhalation (Combivent Respimat) pravastatin 40 mg tablet 40 mg PO DAILY 12/28/22 04/16/24 albuterol sulfate 90 mcg/actuation 2 puff inhalation Q4H PRN 03/13/24 04/16/24 aerosol inhaler shortness of breath or wheezing hydrocortisone 2.5 % topical cream 1 appl NM BID PRN Hemorrhoids 03/13/24 04/16/24 with perineal applicator hydroxyzine HCl 25 mg tablet 25 mg PO TID PRN itchiness 03/13/24 04/16/24 linaclotide 145 mcg capsule 145 mcg PO DAILY 03/13/24 04/16/24 (Linzess) amlodipine 5 mg tablet 5 mg PO DAILY 05/10/24 lisinopril 10 mg tablet 15 mg PO DAILY 05/10/24 oxycodone 10 mg tablet,crush 10 mg PO BID 05/10/24 resistant,extended release 12 hr (OxyContin) Previous Rx's ?Medication ?Instructions ?Recorded ondansetron 8 mg disintegrating 8 mg PO Q8H PRN Nausea #30 tabs 12/20/23 tablet omeprazole 40 mg capsule,delayed 40 mg PO DAILY #30 caps 02/13/24 release dexamethasone 4 mg tablet 4 mg PO BID #60 tabs 04/04/24 tramadol 50 mg tablet 50 mg PO Q12H PRN Breakthrough 05/22/24 Pain, Moderate #60 tabs fluticasone propionate 110 1 puff inhalation BID #12 grams 06/12/24 mcg/actuation HFA aerosol inhaler cefuroxime axetil 250 mg tablet 250 mg PO BID 9 days #18 tabs 07/28/24 Allergies Allergy/AdvReac Type Severity Reaction Status Date / Time shrimp Allergy Severe Hives Verified 07/28/24 07:58 aspirin [ASA] Allergy Intermediate RASH Verified 07/28/24 07:58 ibuprofen [Ibuprofen] Allergy Intermediate RASH Verified 07/28/24 07:58 morphine [MORPHINE] Allergy Intermediate ITCHING Verified 07/28/24 07:58 naproxen [From NAPROSYN] Allergy Intermediate RASH,N/V Verified 07/28/24 07:58 oxycodone [OXYCODONE] Allergy Intermediate NAUSEA & Verified 07/28/24 07:58 VOMITING, RASH sulfamethoxazole AdvReac Severe Abdominal Verified 07/28/24 07:58 [From Bactrim] Pain trimethoprim [From Bactrim] AdvReac Severe Abdominal Verified 07/28/24 07:58 Pain Review of Systems Review of Systems Constitutional : No Fever, No Chills ENT/Mouth : No sore throat Eyes: No Eye Pain, No Swelling, No Redness Cardiovascular : No Chest Pain, No SOB Respiratory : No Cough, No Sputum, No Wheezing Gastrointestinal : positive Nausea, no Vomiting, No Diarrhea, positive abdominal pain Genitourinary : no Dysuria, no urinary frequency, no Hematuria, positive Flank Pain, pos vag bleeding Musculoskeletal : No joint pain, No Myalgias Skin : No Skin Lesions, No rash Neuro : No Weakness, No Numbness, No Headache Psych : No Anxiety/Panic, No Depression Heme/Lymph: No Bruising, No Lymphadenopathy Endocrine : No Polyuria, No Polydipsia All other systems reviewed and are negative PMFSH Past Medical History Attestation statement: The following information was validated with the patient. Source: old records reviewed Medical History Chronic pain syndrome Osteoarthritis GERD (gastroesophageal reflux disease) History of COVID-19 Emphysema lung Hyperlipidemia Hypertension Asthma Hemorrhoids with complication UTI (urinary tract infection) Malignant neoplasm of urinary bladder Bladder mass Surgical History History of surgery History of ERCP Hx laparoscopic cholecystectomy Hx of cystoscopy History of hysterectomy with bilateral oophorectomy Hx of colonoscopy (01/17/19) History of esophagogastroduodenoscopy (EGD) Family History Family History Father No problems noted. Mother Diabetes Brother Lung cancer Daughter Diabetes Social History Social History Household Members: Spouse Housing: Apartment Do you presently have visiting nurse or other home services: No Alcohol intake: never Patient Tobacco Use Status: Never used Tobacco Tobacco use type: Cigarette Years Smoked: 55 Smoked in Last 30 Days: No Use of substances other than those prescribed or required for medical reasons: No Advance Directives: No Advance Directives Information Provided: Yes Do you have a plan to hurt others: No Plan service: No Current occupational status: retired Current occupation: rt handed Physical Exam ED Vital Signs: Vital Signs - 24 hr 07/28/24 07:52 07/28/24 08:50 Temperature 97.7 F 97.7 F Pulse Rate 105 H 105 H Respiratory Rate 18 18 Blood Pressure 115/72 115/72 Pulse Oximetry 95 95 Oxygen Delivery Method Room Air Room Air BMI result Body Mass Index 19.0 Appearance: Alert. Oriented X3. No acute distress. Frail and thin appearing Eyes: Pupils equal, round and reactive to light. ENT: Pharynx normal. Neck: Normal inspection. Neck supple. CVS: Normal heart rate and rhythm. Pulses normal. Respiratory: No respiratory distress. Breath sounds normal. Abdomen: Soft and suprapubic ttp no rebound or guarding : no blood on underwear no bleeding noted Back: bilateral nephrostomy tubes are patent - yellow dark urine Skin: Skin warm and dry. pale skin color. Normal skin turgor. Extremities: No lower extremity edema. Neuro: Oriented X 3. No motor deficit. No sensory deficit. Medical Decision Making Medical Decision Making [facility] Narrative: 78 yo female with PMH of GERD, HLD, HTN, asthma, high-grade bladder CA s/p TURBT, UTI, bilateral nephrostomy tubes, currently on chemotherapy she has worsening disease as of MRI 12/2023 last infusion a week ago this past Monday now here with nausea, lower abdominal pain, flank pain and scant bleeding from vagina - no blood noted on exam. At this time basic labs, lactic acid, cultures, UA, CT scan for obstruction/mass/infection. Start on empiric ceftriaxone given prior serratia S. Differential Diagnosis Differential Diagnoses: The differential diagnosis associated with the presentation includes acute UTI, renal failure from obstruction, stone, worsening cancer Admission/Observation Consideration of admission/observation: Escalation of care including admission/observation considered treated for UTI CT scan no sig change from priors I asked to admit her but she states she doesn't want to stay in the hospital. I do not feel like I can force her. She is aware of reasons to return. Will DC on antibiotics. lactic acid cleared Lab Data [facility] Lab Attestation statement: I reviewed the patient's lab results. 07/28/24 08:13 07/28/24 08:13 Labs: Lab Results 07/28/24 07/28/24 07/28/24 Range/Units 08:13 10:04 10:33 WBC 7.2 (4.8-10.8) X10*3/uL RBC 3.81 L (4.20-5.50) X10*6/uL Hgb 10.2 L (12.0-16.0) g/dl Hct 33.4 L (37.0-47.0) % MCV 87.7 (80.0-98.0) fL MCH 26.8 L (27.0-33.0) pg MCHC 30.5 L (31.0-35.0) g/dl RDW 17.4 H (11.0-16.0) % Plt Count 378 (160-400) X10*3/uL MPV 10.1 (9.4-12.3) fL Immature Gran % (Auto) 0.3 (0.0-0.4) % Neut % (Auto) 77.3 H (45-73) % Lymph % (Auto) 20.1 (20-40) % [place] % (Auto) 2.1 (2-11) % Eos % (Auto) 0.1 (0-4) % Baso % (Auto) 0.1 (0-2) % Lymph # (Auto) 1.5 (1.2-4.9) X10*3/uL [place] # (Auto) 0.2 (0.1-1.2) X10*3/uL Eos # (Auto) 0.0 (0.0-0.4) X10*3/uL Baso # (Auto) 0.0 (0.0-0.2) X10*3/uL Abs Immat Gran (auto) 0.02 (0.00-0.03) X10*3/uL Absolute Neuts (auto) 5.6 (2.0-8.3) x10*3/uL Absolute Nucleated RBC 0.000 (0.0-0.012) X10*3/uL Nucleated RBC % (auto) 0.0 (0.0-0.2) /100WBC Sodium 139 (135-145) mmol/L Potassium 4.0 (3.3-5.1) mmol/L Chloride 104 (96-108) mmol/L Carbon Dioxide 28 (22-29) mmol/L Anion Gap 11 L (12-20) BUN 29 H (9-16) mg/dL Creatinine 0.80 (0.5-1.4) mg/dL Estim Creat Clear Calc 46.8 Estimated GFR > 60 Random Glucose 91 (60-115) mg/dL Lactic Acid 2.1 H* (0.5-2.0) mmol/L Lactic Acid F/U @ 2Hr 1.1 (0.5-2.0) mmol/L Calcium 8.8 (8.4-10.2) mg/dL Magnesium 1.9 (1.6-2.6) mg/dL Total Bilirubin 0.3 (0.0-1.0) mg/dL Direct Bilirubin 0.1 (0.0-0.5) mg/dL AST 20 (5-31) U/L ALT 13 (0-31) U/L Alkaline Phosphatase 122 H (39-117) U/L Troponin I High Sens < 2.7 (<3.5-17.0) ng/L Total Protein 6.4 L (6.5-8.0) g/dL Albumin 3.6 (3.5-5.0) g/dL Lipase 17 (8-78) U/L Urine Color Yellow Urine Appearance Cloudy Urine pH 8.5 (5.0-9.0) Ur Specific [place] 1.015 (1.005-1.025) Urine Protein 100 (2+) H (Neg-Trace) mg/dL Urine Glucose (UA) Negative (Negative) mg/dL Urine Ketones Negative (Negative) mg/dL Urine Blood Moderate (2+) H (Negative) Urine Nitrite Negative (Negative) Ur Leukocyte Esterase Large (3+) H (Negative) Urine RBC >20 H (0-2) /HPF Urine WBC >50 H (0-5) /HPF Ur Squamous Epith Cells 0-2 (0-2) /HPF Urine Bacteria 1+ (None Seen) Hyaline Casts 0-2 (0-2) /LPF Independent Interpretation I performed an independent interpretation of an: EKG and CT Scan (no sig change from priors) Interpretation: Rate: 84 Rhythm: NSR [place]: normal Normal P waves. Normal LEANA. Normal QRS complex. ST T wave : normal no ROMÁN qTC: 427 prior studies: no acute ischemia The study has been interpreted contemporaneously by me. . Radiology Impression Discussion of test interpretation with radiology: I have reviewed the radiologist's reading. Independent Historian Clinical information obtained from an independent historian. History obtained from or confirmed by: EMS External Record Review External record reviewed: Inpatient record and Outpatient record Prescription Management I considered prescription management with: Antibiotic Medications Administered Discontinued Medications Generic Name Dose Route Start Last Admin Trade Name Frances PRN Reason Stop Dose Admin Ceftriaxone Sodium 1 gm 07/28/24 07:58 07/28/24 08:37 Ceftriaxone Sodium 1 Gm Vial IVPUSH 07/28/24 07:59 1 gm ONCE ONE Administration Acetaminophen 1,000 mg in 100 mls @ 400 mls/hr 07/28/24 07:52 07/28/24 09:10 Ofirmev IV 07/28/24 08:06 Infused ONCE ONE Infusion Sodium Chloride 500 mls @ 500 mls/hr 07/28/24 09:13 07/28/24 10:22 Ns IV 07/28/24 10:12 Infused .Q1H ONE Infusion Iohexol 100 ml 07/28/24 09:23 07/28/24 09:24 Iohexol 350 Mg/Ml 100 Ml Infus..Btl IV 07/28/24 09:24 85 ml ONCE ONE Administration Ondansetron HCl 4 mg 07/28/24 07:52 07/28/24 08:36 Ondansetron Hcl 4 Mg/2 Ml Vial IVPUSH 07/28/24 07:53 4 mg ONCE ONE Administration Tramadol HCl 50 mg 07/28/24 07:58 07/28/24 08:38 Tramadol Hcl 50 Mg Tablet PO 07/28/24 07:59 50 mg ONCE ONE Administration Discharge Plan Discharge Clinical Impression: Acute UTI Patient Disposition: Home, Self-Care Instructions: Urinary Tract Infection in Women (ED) Additional Instructions: it was advised that you get admitted in the hospital but you declined - YOU ARE WELCOME TO RETURN AT ANY TIME take next dose of antibiotic tonight please return for worsening pain, fevers, vomiting, change in urine in bags or any other concerns, YOU ARE HIGH RISK FOR INFECTION WORSENING notify your oncologist tomorrow please monitor your symptoms carefully. Prescriptions: New cefuroxime axetil 250 mg tablet 250 mg PO BID 9 Days Qty: 18 0RF No Action fluticasone propionate 110 mcg/actuation HFA aerosol inhaler 1 puff INHALATION BID Qty: 12 0RF ondansetron 8 mg Tablet,Disintegrating 8 mg PO Q8H PRN (Reason: Nausea) Qty: 30 3RF dexamethasone 4 mg Tablet 4 mg PO BID Qty: 60 3RF Rx Instructions: Take 4 mg p.o. b.i.d. days 2 and 3 of chemotherapy every 3 weeks. tramadol 50 mg Tablet 50 mg PO Q12H PRN (Reason: Breakthrough Pain, Moderate) Qty: 60 0RF pravastatin 40 mg tablet 40 mg PO DAILY Combivent Respimat 20-100 mcg/actuation mist 1 puff INHALATION QID albuterol sulfate 90 mcg/actuation HFA aerosol inhaler 2 puff inhalation Q4H PRN (Reason: shortness of breath or wheezing) Linzess 145 mcg capsule 145 mcg PO DAILY hydroxyzine HCl 25 mg tablet 25 mg PO TID PRN (Reason: itchiness) hydrocortisone 2.5 % cream with perineal applicator 1 appl NM BID PRN (Reason: Hemorrhoids) omeprazole 40 mg capsule,delayed release(DR/EC) 40 mg PO DAILY Qty: 30 6RF lisinopril 10 mg tablet 15 mg PO DAILY amlodipine 5 mg tablet 5 mg PO DAILY oxycodone [OxyContin] 10 mg tablet,oral only,ext.rel.12 hr 10 mg PO BID Print Language: German
[2024-07-28 08:20] LABS: MANUAL DIFF FLAG NO
[2024-07-28] MEDS: ondansetron HCL 4 MG/2 ML VIAL IVPUSH (08:36)
[2024-07-28] MEDS: cefTRIAXone sodium 1 GM VIAL IVPUSH (08:37)
[2024-07-28] MEDS: traMADoL HCL 50 MG TABLET PO (08:38)
[2024-07-28 08:39] LABS: Alanine Aminotransferase 13 U/L (0-31); Albumin Level 3.6 g/dL (3.5-5.0); Alkaline Phosphatase 122 U/L (39-117); Anion Gap 11 (12-20); Aspartate Amino Transferase 20 U/L (5-31); Bilirubin Direct 0.1 mg/dL (0.0-0.5); Bilirubin Total 0.3 mg/dL (0.0-1.0); Blood Urea Nitrogen 29 mg/dL (9-16); Calcium 8.8 mg/dL (8.4-10.2); Carbon Dioxide 28 mmol/L (22-29); Chloride 104 mmol/L (96-108); Creatinine Clr Calc Pharmacy 46.8; Estimated Glomerular Filt Rate > 60; Glucose Random 91 mg/dL (60-115); Lipase 17 U/L (8-78); Magnesium 1.9 mg/dL (1.6-2.6); Sodium 139 mmol/L (135-145); Total Protein 6.4 g/dL (6.5-8.0)
[2024-07-28 08:40] LABS: Basophils Percent Auto 0.1 % (0-2); Eosinophils Percent Auto 0.1 % (0-4); Hematocrit 33.4 % (37.0-47.0); Hemoglobin 10.2 g/dl (12.0-16.0); Imm Gran Abs Auto 0.02 X10*3/uL (0.00-0.03); Imm Gran Pct Auto 0.3 % (0.0-0.4); Lymphocytes Absolute Auto 1.5 X10*3/uL (1.2-4.9); Lymphocytes Percent Auto 20.1 % (20-40); Mean Corpuscular HGB Conc 30.5 g/dl (31.0-35.0); Mean Corpuscular Hemoglobin 26.8 pg (27.0-33.0); Mean Corpuscular Volume 87.7 fL (80.0-98.0); Mean Platelet Volume 10.1 fL (9.4-12.3); Monocytes Absolute Auto 0.2 X10*3/uL (0.1-1.2); Monocytes Percent Auto 2.1 % (2-11); Neutrophils Absolute Auto 5.6 x10*3/uL (2.0-8.3); Neutrophils Percent Auto 77.3 % (45-73); Platelet Count 378 X10*3/uL (160-400); Red Blood Count 3.81 X10*6/uL (4.20-5.50); Red Cell Distribution Width 17.4 % (11.0-16.0); White Blood Count 7.2 X10*3/uL (4.8-10.8)
[2024-07-28] MEDS: Acetaminophen 1,000 MG/100 ML PIGGYBACK 400 MG IV (08:40)
[2024-07-28 08:50] VITALS: BP 115/72; PULSE 105; RESP 18; TEMP 36.5; O2SAT 95
[2024-07-28 08:59] LABS: Troponin-I High Sensitivity < 2.7 ng/L (<3.5-17.0)
[2024-07-28 09:13] LABS: Lactic Acid 2.1 mmol/L (0.5-2.0)
[2024-07-28] MEDS: iohexoL 350 MG/ML 100 ML INFUS..BTL IV (09:24)
[2024-07-28] MEDS: 0.9 % Sodium Chloride 500 ML IV (09:34)
[2024-07-28 10:12] LABS: Appearance Urine Cloudy; Color Urine Yellow; Glucose Urine UA Negative (Negative); Leukocyte Esterase Urine Large (3+) (Negative); Nitrite Urine Negative (Negative); PH 8.5 (5.0-9.0); Specific Gravity - Urine 1.015 (1.005-1.025); UMIC TRIGGER UACC YES; Urine Blood Moderate (2+) (Negative); Urine Ketones Negative (Negative); Urine Protein 100 (2+) mg/dL (Neg-Trace)
[2024-07-28 10:16] LABS: Bacteria Urine 1+ (None Seen); Hyaline Casts Urine 0-2 /LPF (0-2); RBC Urine >20 /HPF (0-2); Squamous Epithelial Cell Urine 0-2 /HPF (0-2); UACC Culture Trigger YES; WBC Urine >50 /HPF (0-5)
[2024-07-28 10:18] LABS: Reflex Lactate? Lactic Acid Added
[2024-07-28 11:04] LABS: ~Lactic Acid-LAB USE ONLY 1.1 mmol/L (0.5-2.0)
[2024-07-28 11:36] VITALS: BP 132/66; PULSE 78; RESP 16; TEMP 36.6; O2SAT 96
== END 2024-07-28 11:37 | disposition home or self-care (01) ==
PROVIDERS: Emergency Provider Emergency Medicine; PCP General Practice
DX: N39.0 Urinary tract infection, site not specified (principal); M54.50 Low back pain, unspecified; R11.0 Nausea; R10.2 Pelvic and perineal pain; N93.9 Abnormal uterine and vaginal bleeding, unspecified; I10 Essential (primary) hypertension; Z79.899 Other long term (current) drug therapy
CPT/HCPCS: 36415; 74177; 80048; 80076; 81001; 83605; 83690; 83735; 84484; 85025; 87040; 87086; 93005; 96361; 96374; 96375; 99284; 99285; J0131; J0696; J2405; Q9967

== ENCOUNTER → 2024-07-28 07:50 | Outpatient (BNV) | payer OTHER, SELFPAY | PROVIDERS: Emergency Provider Emergency Medicine; PCP General Practice; Visit Provider Internal Medicine Cardiovascular Disease | DX: R10.9 Unspecified abdominal pain (principal) | CPT/HCPCS: 93010 ==

== ENCOUNTER 2024-08-19 06:34 | Day surgery (SDC) | payer OTHER, SELFPAY ==
[2024-08-15 09:43] VITALS: BMI 18.1
--- NOTE | 2024-08-16 10:11 | P.CONAN_ITS ---
Documented by User: Mitzi Kat NP 08/16/24 10:13 HPI - Anesthesia Eval Consult details Narrative: 79yo F for Cystoscopy & Bladder Biopsy and Fulguration s/p TURBT 04/2024 with GA-LMA 4 PMFSH Active Problems Active Problems: All Active Problems Osteoarthritis of right shoulder (Acute) Bladder cancer (Acute) Severe persistent asthma (Acute) Lumbar spinal stenosis (Acute) Chronic pain syndrome (Acute) Encounter for preoperative pulmonary examination (Acute) Ischial bursitis (Acute) Lumbar spondylosis (Acute) Levoscoliosis of lumbar spine (Acute) Lumbar degenerative disc disease (Acute) Peripheral neuropathy (Acute) Hematuria (Acute) NADEEN (acute kidney injury) (Acute) 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 (Acute) Encounter for preoperative pulmonary examination (Acute) Hydronephrosis (Acute) Candidal urinary tract infection (Acute) Bladder cancer (Chronic) Malignant neoplasm of bladder neck (Acute) Vaginal mass (Acute) COVID-19 (Acute) Sepsis (Acute) Bladder mass (Acute) Hematuria (Acute) H/O primary malignant neoplasm of urinary bladder (Acute) Osteoarthritis of shoulders, bilateral (Acute) Vaginal pain (Acute) Back pain (Acute) Recurrent cough (Acute) Dysuria (Acute) Primary osteoarthritis, left shoulder (Acute) Small intestinal bacterial overgrowth (Acute) Bronchitis (Acute) Abdominal cramping (Acute) Lumbar radiculopathy (Chronic) Hemorrhoids with complication (Acute) Right-sided ischial pain (Acute) Environmental allergies (Acute) Cough (Acute) Gastroesophageal reflux disease (Acute) Moderate persistent allergic asthma (Acute) Trochanteric bursitis, right hip (Acute) Nausea and vomiting (Acute) Chronic idiopathic constipation (Acute) Low back pain due to bilateral sciatica (Acute) Tendonitis of left rotator cuff (Acute) Trochanteric bursitis of left hip (Acute) Hemorrhoids with complication (Acute) Malignant neoplasm of urinary bladder (Acute) UTI (urinary tract infection) (Acute) Past Medical History Medical History (Updated 08/15/24 @ 09:39 by Cee Ragsdale RN) COPD (chronic obstructive pulmonary disease) Port-A-Cath in place Back pain Spinal stenosis Chronic pain syndrome Osteoarthritis GERD (gastroesophageal reflux disease) Emphysema lung Hyperlipidemia Hypertension Asthma Hemorrhoids with complication UTI (urinary tract infection) Malignant neoplasm of urinary bladder Family History Family History Father No problems noted. Mother Diabetes Brother Lung cancer Daughter Diabetes Family history of problems with anesthesia: No Surgical History Surgical History History of surgery History of ERCP Hx laparoscopic cholecystectomy Hx of cystoscopy History of hysterectomy with bilateral oophorectomy Hx of colonoscopy (01/17/19) History of esophagogastroduodenoscopy (EGD) History of Problems with Anesthesia: No Social History Social History (Updated 08/15/24 @ 09:39 by Cee Ragsdale RN) Household Members: Spouse Housing: Apartment Are you a primary customer care team coach to a significant other at home: No Do you presently have visiting nurse or other home services: No Alcohol intake: never Patient Tobacco Use Status: Former Tobacco user Tobacco use type: Cigarette Years Smoked: 55 Smoked in Last 30 Days: No Use of substances other than those prescribed or required for medical reasons: No Have you been hit, kicked, punched, or otherwise hurt by someone within the past year? If so, by whom?: No Are you DNR?: No Advance Directives: No Advance Directives Information Provided: No Advance Directives on File: No Recently lost weight without trying: No How much weight loss: Not applicable Eating poorly because of decreased appetite: No Nutrition screen score: 0 Patient : No : No Poor oral hygiene: Yes (Cracked lower molar, Missing teeth throughout) service: No Current occupational status: retired Current occupation: rt handed Meds Allergies Allergy/AdvReac Type Severity Reaction Status Date / Time shrimp Allergy Severe Hives Verified 08/19/24 07:27 aspirin [ASA] Allergy Intermediate RASH Verified 08/19/24 07:27 ibuprofen [Ibuprofen] Allergy Intermediate RASH Verified 08/19/24 07:27 morphine [MORPHINE] Allergy Intermediate ITCHING Verified 08/19/24 07:27 naproxen [From NAPROSYN] Allergy Intermediate RASH,N/V Verified 08/19/24 07:27 oxycodone [OXYCODONE] Allergy Intermediate NAUSEA & Verified 08/19/24 07:27 VOMITING, RASH sulfamethoxazole AdvReac Severe Abdominal Verified 08/19/24 07:27 [From Bactrim] Pain trimethoprim [From Bactrim] AdvReac Severe Abdominal Verified 08/19/24 07:27 Pain Home Medications ?Medication ?Instructions ?Recorded ?Confirmed ?Last Taken ?Type ipratropium 20 mcg-albuterol 100 1 puff inhalation QID 12/28/22 08/19/24 08/19/24 History mcg/actuation mist for inhalation (Combivent Respimat) pravastatin 40 mg tablet 40 mg PO DAILY 12/28/22 08/19/24 03/12/24 History albuterol sulfate 90 mcg/actuation 2 puff inhalation Q4H PRN 03/13/24 08/19/24 04/22/24 History aerosol inhaler shortness of breath or wheezing hydrocortisone 2.5 % topical cream 1 appl MO BID PRN Hemorrhoids 03/13/24 08/19/24 03/12/24 History with perineal applicator hydroxyzine HCl 25 mg tablet 25 mg PO TID PRN itchiness 03/13/24 08/19/24 Unknown History linaclotide 145 mcg capsule 145 mcg PO DAILY 03/13/24 08/19/24 03/12/24 History (Linzess) lisinopril 10 mg tablet 15 mg PO DAILY 05/10/24 08/19/24 Unknown History Exam Height,Weight and Vital Signs: Height 5 ft 2 in Weight 44.906 kg Pertinent Lab Results Pertinent Lab Results: Laboratory Tests 08/14/24 13:09 WBC 4.5 L Hgb 9.2 L Hct 29.6 L Plt Count 350 Sodium 140 Potassium 3.8 Chloride 108 Carbon Dioxide 26 BUN 17 H Creatinine 0.74 Assessment and Plan Assessment Anesthesia Assessment: Chart Reviewed Final Anesthetic Review Family History of Problems with Anesthesia: No History of Problems with Anesthesia: No Documented by User: Ketan Escamilla MD 08/19/24 08:45 [facility] Past Medical History Medical History (Updated 08/15/24 @ 09:39 by Cee Ragsdale RN) COPD (chronic obstructive pulmonary disease) Port-A-Cath in place Back pain Spinal stenosis Chronic pain syndrome Osteoarthritis GERD (gastroesophageal reflux disease) Emphysema lung Hyperlipidemia Hypertension Asthma Hemorrhoids with complication UTI (urinary tract infection) Malignant neoplasm of urinary bladder Family History Family History Father No problems noted. Mother Diabetes Brother Lung cancer Daughter Diabetes Surgical History Surgical History History of surgery History of ERCP Hx laparoscopic cholecystectomy Hx of cystoscopy History of hysterectomy with bilateral oophorectomy Hx of colonoscopy (01/17/19) History of esophagogastroduodenoscopy (EGD) Social History Social History (Updated 08/15/24 @ 09:39 by Cee Ragsdale RN) Household Members: Spouse Housing: Apartment Are you a primary customer care team coach to a significant other at home: No Do you presently have visiting nurse or other home services: No Alcohol intake: never Patient Tobacco Use Status: Former Tobacco user Tobacco use type: Cigarette Years Smoked: 55 Smoked in Last 30 Days: No Use of substances other than those prescribed or required for medical reasons: No Have you been hit, kicked, punched, or otherwise hurt by someone within the past year? If so, by whom?: No Are you DNR?: No Advance Directives: No Advance Directives Information Provided: No Advance Directives on File: No Recently lost weight without trying: No How much weight loss: Not applicable Eating poorly because of decreased appetite: No Nutrition screen score: 0 Patient : No : No Poor oral hygiene: Yes (Cracked lower molar, Missing teeth throughout) service: No Current occupational status: retired Current occupation: rt handed Meds Allergies Allergy/AdvReac Type Severity Reaction Status Date / Time shrimp Allergy Severe Hives Verified 08/19/24 07:27 aspirin [ASA] Allergy Intermediate RASH Verified 08/19/24 07:27 ibuprofen [Ibuprofen] Allergy Intermediate RASH Verified 08/19/24 07:27 morphine [MORPHINE] Allergy Intermediate ITCHING Verified 08/19/24 07:27 naproxen [From NAPROSYN] Allergy Intermediate RASH,N/V Verified 08/19/24 07:27 oxycodone [OXYCODONE] Allergy Intermediate NAUSEA & Verified 08/19/24 07:27 VOMITING, RASH sulfamethoxazole AdvReac Severe Abdominal Verified 08/19/24 07:27 [From Bactrim] Pain trimethoprim [From Bactrim] AdvReac Severe Abdominal Verified 08/19/24 07:27 Pain Home Medications ?Medication ?Instructions ?Recorded ?Confirmed ?Last Taken ?Type ipratropium 20 mcg-albuterol 100 1 puff inhalation QID 12/28/22 08/19/24 08/19/24 History mcg/actuation mist for inhalation (Combivent Respimat) pravastatin 40 mg tablet 40 mg PO DAILY 12/28/22 08/19/24 03/12/24 History albuterol sulfate 90 mcg/actuation 2 puff inhalation Q4H PRN 03/13/24 08/19/24 04/22/24 History aerosol inhaler shortness of breath or wheezing hydrocortisone 2.5 % topical cream 1 appl MO BID PRN Hemorrhoids 03/13/24 08/19/24 03/12/24 History with perineal applicator hydroxyzine HCl 25 mg tablet 25 mg PO TID PRN itchiness 03/13/24 08/19/24 Unknown History linaclotide 145 mcg capsule 145 mcg PO DAILY 03/13/24 08/19/24 03/12/24 History (Linzess) lisinopril 10 mg tablet 15 mg PO DAILY 05/10/24 08/19/24 Unknown History Exam Airway Mallampati Class: I TM Dist: >3cm Neck ROM: Full Heart: ok Lungs: ok Assessment and Plan Assessment Anesthesia Assessment: Anesthesia Plan Discussed Final Anesthetic Review NPO: Yes ASA Class: III Final Preanesthetic Review: No Changes in Pt Med Stat, Meds/Allgs Chart Reviewed, Consent Obtained/Reviewed and Anes Risks/Benef Reviewed Patient Risk: Intermediate Procedure Risk: Low Anesthetic Plan Anesthetic Plan: GA and Agree w/ Assess. and Plan Disposition: Standard PACU
[2024-08-19 07:27] VITALS: BMI 18.1
[2024-08-19 07:33] VITALS: BP 122/63; PULSE 90; RESP 16; TEMP 36.5; O2SAT 98
[2024-08-19] MEDS: Lactated Ringers 1,000 ML 100 ML IVCONT (08:10)
--- NOTE | 2024-08-19 08:21 | MHC.SHP ---
Pre-Procedural Eval Section A - 24 Hr Update-Section A only Date of Service: 08/19/24 Section B - Complete if H&P > 30 days Chief Complaint: Malignant neoplasm of bladder, unspecified Details of Present Illness: Surveillance cystoscopy with bladder biopsy Relevant Social History: None Present Medications: see Short Stay Collaborative assessment Medical History: Significant History History of Previous Operations: Relevant previous surgery/procedure and date(s) Allergies: Allergies Allergy/AdvReac Type Severity Reaction Status Date / Time shrimp Allergy Severe Hives Verified 08/19/24 07:27 aspirin [ASA] Allergy Intermediate RASH Verified 08/19/24 07:27 ibuprofen [Ibuprofen] Allergy Intermediate RASH Verified 08/19/24 07:27 morphine [MORPHINE] Allergy Intermediate ITCHING Verified 08/19/24 07:27 naproxen [From NAPROSYN] Allergy Intermediate RASH,N/V Verified 08/19/24 07:27 oxycodone [OXYCODONE] Allergy Intermediate NAUSEA & Verified 08/19/24 07:27 VOMITING, RASH sulfamethoxazole AdvReac Severe Abdominal Verified 08/19/24 07:27 [From Bactrim] Pain trimethoprim [From Bactrim] AdvReac Severe Abdominal Verified 08/19/24 07:27 Pain Review of Systems Sugical H&P ROS: Negative: Constitution, Cardiovascular, Respiratory, Neurological, Psychiatric, Hem-Onc, Allergic/Immunologic, Gastrointestinal, Genitourinary, Musculoskeletal, Integumentary, Endocrine and Eyes/Ears/Nose/Throat Exam Surgical H&P Exam: Normal: HEENT, Normal: Heart, Normal: Lungs, Normal: Extremities, Normal: Abdomen, Normal: Skin and Normal: Neurological Plan Diagnosis/Plan: Unchanged (Cystoscopy with bladder biopsy and fulguration) I have reviewed the history and physical and performed a pertinent physical examination on my patient. No changes have occurred unless specified. Time Spent With Patient Time: Total time managing care of this patient today ____ minutes.
[2024-08-19 09:21] VITALS: BP 97/49; PULSE 84; RESP 16; TEMP 37.1; O2SAT 96
--- NOTE | 2024-08-19 09:40 | W.PM.OPN ---
Operative Note Operative Note Date of Service: 08/19/24 Narrative: PreOperative Diagnosis: bladder cancer Post Operative Diagnosis: bladder cancer Procedure: cystoscopy, bladder biopsy, fulguration Surgeon: Dr Severo Blair Anesthesia: LMA Indications for procedure: Superficial bladder cancer. Here for cystoscopy, bladder biopsy. Evaluation. Procedure: After informed consent was verified the patient was brought to the operating room and placed in a supine position. Anesthesia was administered per protocol. The patient was placed in modified dorsal lithotomy position and prepped and draped in a sterile fashion. Safety pause time-out was performed. Antibiotics being given. Cystoscopy was performed. Area of redness on dome of bladder. Biopsied and fulgurated. Prior area of resection still healing around bladder neck The patient tolerated the procedure well. They were extubated in operating room and transferred in stable conditions recovery area. Pathology: Bladder biopsies Drains: None
[2024-08-19 10:06] VITALS: BP 97/70; PULSE 78; RESP 18; TEMP 37.1; O2SAT 99
== END 2024-08-19 10:30 | disposition home or self-care (01) ==
PROVIDERS: PCP General Practice; Visit Provider Urology
PROC: (CPT 52234; principal; 2024-08-19 08:30)
DX: C67.9 Malignant neoplasm of bladder, unspecified (principal); G89.4 Chronic pain syndrome; M19.90 Unspecified osteoarthritis, unspecified site; J43.9 Emphysema, unspecified; J45.909 Unspecified asthma, uncomplicated; I10 Essential (primary) hypertension; E78.5 Hyperlipidemia, unspecified; Z88.2 Allergy status to sulfonamides; Z88.5 Allergy status to narcotic agent; Z88.6 Allergy status to analgesic agent; Z87.891 Personal history of nicotine dependence; Z98.890 Other specified postprocedural states
CPT/HCPCS: 52234; 88305; J1956; J2003; J2704; J3010

== ENCOUNTER → 2024-08-19 06:34 | Outpatient (BNV) | payer OTHER, SELFPAY | PROVIDERS: PCP General Practice; Visit Provider Urology | DX: C67.1 Malignant neoplasm of dome of bladder (principal) | CPT/HCPCS: 52204 ==

== ENCOUNTER 2024-08-27 14:56 | Outpatient (AMB) | payer OTHER, SELFPAY ==
--- NOTE | 2024-08-27 14:56 | A.OFFVIS_ITS ---
Intake Visit Reasons: Bladder bx follow up/H&P 3m Neph tube change Intake Note: Patient is present for BLADDER BX F/U H&P 3M NEPH TUBE CHANGE Urology Medication:NONE Antibiotic Allergy:SULFA Blood Thinner:NONE Cardboard Cutter Required: No Allergies shrimp Allergy (Severe, Verified 08/27/24 14:58) Hives aspirin [ASA] Allergy (Intermediate, Verified 08/27/24 14:58) RASH ibuprofen [Ibuprofen] Allergy (Intermediate, Verified 08/27/24 14:58) RASH morphine [MORPHINE] Allergy (Intermediate, Verified 08/27/24 14:58) ITCHING naproxen [From NAPROSYN] Allergy (Intermediate, Verified 08/27/24 14:58) RASH,N/V oxycodone [OXYCODONE] Allergy (Intermediate, Verified 08/27/24 14:58) NAUSEA & VOMITING, RASH sulfamethoxazole [From Bactrim] Adverse Reaction (Severe, Verified 08/27/24 14:58) Abdominal Pain trimethoprim [From Bactrim] Adverse Reaction (Severe, Verified 08/27/24 14:58) Abdominal Pain HPI Comments Details: Altaf is a pleasant female. She is a patient of . She seen for the following urologic conditions - recurrent high-grade bladder cancer invasive Telemedicine Evaluation 15 min Consultation Webymaster Chalo Video attempted Ethiopian translation provided by qualified medical art therapist 09/03 biopsy - no cancer seen Needs PCN exchange Requesting a different interventional provider from last time - had pain with procedure, not the same as previously 02/01 stent internalization Bladder TURP with fulguration - high-grade T1 Removal of catheter Recommend induction 6 weeks mitomycin-C with cytarabine Stents to remain 01/02 Worsening hydronephrosis Creatinine ratio elevate Bilateral PCN placed followed by stent internalization in operating room Labs Cr 06/[address] right hydro, left mild hydro Completed neoadjuvant chemotherapy Right PCN placed after presentation for NADEEN - creatinine resolving from 2.9 down to 0.94 - 03/[address] scan with resolution of bladder thickening, right hydronephrosis. 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 The bladder is partially distended with irregular wall thickening and trabeculated appearance. Dilated appearance of both distal ureters. Moderate right hydronephrosis. Mild left hydronephrosis. No lymphadenopathy. Bladder cancer superficial high-grade 2019 - disease progression - 12/01 muscle invasive bladder cancer Initial diagnosis with Dr. Hankins TURBT 05/30 high-grade superficial noninvasive disease Adjuvant therapy BCG June 2019 Surveillance cystoscopy - 04/30 NAD, 10/01 NAD, 10/02 NAD - trabeculated bladder with BCG change PFSH Medical History (Updated 08/21/24 @ 14:08 by Destiney Palacios MD) COPD (chronic obstructive pulmonary disease) Port-A-Cath in place Back pain Spinal stenosis Chronic pain syndrome Osteoarthritis GERD (gastroesophageal reflux disease) Emphysema lung Hyperlipidemia Hypertension Asthma Hemorrhoids with complication UTI (urinary tract infection) Malignant neoplasm of urinary bladder Surgical History History of surgery History of ERCP Hx laparoscopic cholecystectomy Hx of cystoscopy History of hysterectomy with bilateral oophorectomy Hx of colonoscopy (01/17/19) History of esophagogastroduodenoscopy (EGD) Family History Father No problems noted. Mother Diabetes Brother Lung cancer Daughter Diabetes Social History (Updated 08/15/24 @ 09:39 by Cee Ragsdale RN) Household Members: Spouse Housing: Apartment Are you a primary manager urgent care to a significant other at home: No Do you presently have visiting nurse or other home services: No Alcohol intake: never Patient Tobacco Use Status: Former Tobacco user Tobacco use type: Cigarette Years Smoked: 55 Use of substances other than those prescribed or required for medical reasons: No Have you been hit, kicked, punched, or otherwise hurt by someone within the past year? If so, by whom?: No Do you feel safe in your current relationship?: Yes Do you have thoughts of harming others: None Do you have a plan to hurt others: No Plan Do you have the means to hurt others: No Recently lost weight without trying: Yes How much weight loss: 2-13 pounds Eating poorly because of decreased appetite: Yes Nutrition screen score: 4 service: No Current occupational status: retired Current occupation: rt handed Review of Systems Const All systems reviewed & are unremarkable except as noted in HPI and below Reports no additional complaints Resp Reports no additional complaints GI Reports no additional complaints Reports as per HPI Musc Reports no additional complaints Physical Exam Telemedicine evaluation Appropriate responses Regular breathing rate and rhythm HEENT Head: Yes normal to inspection Ears: hearing grossly normal bilaterally Eyes General: appearance normal, both eyes and all related structures Neck Neck: Yes normal visual inspection Chest Chest palpation & inspection: normal inspection of the chest Resp Effort & Inspection: normal respiratory effort and able to speak in complete sentences Telehealth Telehealth Location of provider rendering services: practice address Location of patient: address on file Patient Identification confirmed using: Name, : Yes Telehealth method: voice only Patient verbally consented to treatment: Yes Patient verbally consented to billing insurance company: Yes Patient informed of any privacy concerns related to visit: Yes Assessment & Plan Assessment & Plan (1) 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 These include but are not limited to infection, bleeding, damage to local organs and tissues, need for further interventions. Anesthetic risks regarding cardiac arrhythmia, blood clots, and potential mortality were discussed. The patient understands the typical recovery time and the outpatient nature of the procedure. After consideration of these risks the patient gives full informed consent and they wish to move ahead with the procedure. Chnage of tubes Orders: Orders IR nephrostomy tube change 08/27/24 N13.30 - Unspecified hydronephrosis, C67.9 - Malignant neoplasm of bladder, unspecified Patient Instructions: Imaging studies, laboratory and physical exam results were discussed and reviewed in detail. No major barriers to patient understanding were identified. An opportunity to ask questions regarding the treatment plan was provided. All questions were answered. The patient expressed understanding and agreement with the above treatment plan. The patient is aware they should contact our office by phone for worsening of their current condition or the appearance of new urologic symptoms. Compliance is encouraged with any medications and followup testing that is ordered. It is a privilege to participate in the urologic care of your patient. If you have any questions or concerns regarding treatment for the above conditions, or other urologic issues, please do not hesitate to contact me. The office telephone contact is [phone]. This note is constructed using voice recognition software. While every effort has been made to ensure accuracy code enforcement inspector errors may have been included. 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
== END 2024-08-27 16:03 | disposition home or self-care (01) ==
LOC: HO.HUSH 14:56
PROVIDERS: PCP General Practice; Visit Provider Urology
DX: N13.30 Unspecified hydronephrosis (principal); C67.9 Malignant neoplasm of bladder, unspecified
CPT/HCPCS: 99442

== ENCOUNTER → 2024-09-24 11:07 | Day surgery (SDC) | payer OTHER, SELFPAY ==
[2024-09-24] VITALS (9 sets, daily range): BP systolic 108–141; BP diastolic 45–67; PULSE 80–92; RESP 9–28; TEMP 36.2; O2SAT 95–100; BMI 17.5
--- NOTE | ~2024-09-24 | IR_ITS ---
FLUOROSCOPIC BILATERAL NEPHROSTOMY TUBE EXCHANGE History: Patient with bilateral nephrostomy tubes due to bilateral ureteral obstruction. Patient presents for three-month maintenance change. Procedure: Patient was informed and consented to the procedure. The patient's right back was prepped and draped in routine sterile fashion. 1% buffered lidocaine was used as anesthetic around the insertion site. The catheter was cut and an Amplatz wire was placed through the tube and coiled into the renal pelvis. The old catheter was removed and over the wire. A new 8 Czech locking pigtail catheter was advanced over the wire. The wire was removed. 5 mL of contrast was injected to ensure proper positioning of the catheter in the renal pelvis. A 3-0 Ethilon suture was used to secure the catheter to the skin. A sterile dressing was applied. Next,the patient's left back was prepped and draped in routine sterile fashion. 1% buffered lidocaine was used as anesthetic around the insertion site. The catheter was cut and an Amplatz wire was placed through the tube and coiled into the renal pelvis.The old catheter was removed and over the wire. A new 8 Czech locking pigtail catheter was advanced over the wire. The wire was removed. 5 mL of contrast was injected to ensure proper positioning of the catheter in the renal pelvis. A 3-0 Ethilon suture was used to secure the catheter to the skin. A sterile dressing was applied. Summary: Successful bilateral nephrostomy exchange with fluoroscopic guidance. Electronically signed by: Molina Chavarria MD 09/25/2024 05:25 PM [facility]
[2024-09-24] MEDS: Midazolam HCl 2 MG/2 ML VIAL 0.5 MG IVPUSH ×2 (13:47→13:57)
[2024-09-24] MEDS: fentaNYL citrate/PF 100 MCG/2 ML VIAL 25 MCG IVPUSH ×2 (13:48→13:58)
== END | disposition home or self-care (01) ==
PROVIDERS: Radiology Vascular & Interventional Radiology; PCP General Practice; Visit Provider Urology
DX: Z48.03 Encounter for change or removal of drains (principal); N13.1 Hydronephrosis with ureteral stricture, not elsewhere classified; C67.9 Malignant neoplasm of bladder, unspecified; Z95.828 Presence of other vascular implants and grafts; J44.9 Chronic obstructive pulmonary disease, unspecified; G89.4 Chronic pain syndrome; M48.00 Spinal stenosis, site unspecified; I10 Essential (primary) hypertension; E78.5 Hyperlipidemia, unspecified; Z88.2 Allergy status to sulfonamides; Z88.6 Allergy status to analgesic agent; Z88.5 Allergy status to narcotic agent; Z98.890 Other specified postprocedural states; Z87.891 Personal history of nicotine dependence
CPT/HCPCS: 50435; 99152; 99153; J1642; J1644; J2003; J2250; J2310; J3010; Q9967

== ENCOUNTER → 2024-09-24 13:12 | Outpatient (BNV) | payer OTHER, SELFPAY | PROVIDERS: PCP General Practice; Visit Provider Radiology Vascular & Interventional Radiology | DX: C67.9 Malignant neoplasm of bladder, unspecified (principal); N13.30 Unspecified hydronephrosis | CPT/HCPCS: 50435 ==

== ENCOUNTER 2024-10-27 11:45 | Outpatient (REF) | payer OTHER, SELFPAY ==
--- NOTE | ~2024-10-27 | MR_ITS ---
CLINICAL HISTORY: F O BLADDER MRI pelvis with and without contrast: Comparison: CT 07/28/2024. MRI 07/11/2024 Findings: The uterus is not identified and may be small and atrophic or surgically absent. No free fluid in the pelvis. The presacral space is unremarkable. Rectovaginal space is normal. There is lobular diffuse thickening of urinary bladder wall. The anterior urinary bladder retropubic space of Retzius is enhancing adjacent to contiguous thickened bladder wall on contrast sequence. The most thickened area of inferior posterior bladder wall measures 10 mm in thickness. Mesorectal tissue is unremarkable in morphology but shows enhancement and mild anterior thickening. Lymph nodes: 9.3 x 1.3 cm left internal iliac node, image 55, series 8. Left retroperitoneal 1.2 x 1.5 cm lymph node image 12 series 10, and image 8, series 3. Few scattered superficial fascia inguinal lymph nodes, example: 10 mm lymph node image 71, series 10 on the right After injection of intravenous contrast there is intense enhancement of urinary bladder wall, bladder trigone and urethra which may be partly due to urinary tract excretion of contrast. There is thickening of urogenital diaphragm and attenuation of the ischial rectal space with increased soft tissue density and vascular and interstitial enhancement. An osteoporosis insufficiency fracture of the L5 is unchanged from the previous exam. Impression: Lobular diffuse thickening of urinary bladder wall measuring up to 15 mm in thickness is unchanged when compared to prior MRI but is increased when compared to CT from 07/28/2024 Morphology and enhancement pattern is consistent with bladder neoplasm and inflammatory reaction to neoplasm or superinfection. Extent of bladder involvement is not significantly changed from previous exam. A 9.3 x 1.3 cm left internal iliac lymph node is present. Correlate with biopsy reports and prior x-ray reports when available. This document has been electronically signed by: Scar Correa MD on 10/27/2024 15:14:12
--- OUTSIDE RECORDS SUMMARY | 2024-10-27 11:50 | XMS_ITS | Clinical Summary ---
Author Organization [facility] Facility Address [address] [address] Care Team Providers Care Case Sealer Name Role Phone Unavailable Primary Care Provider Unavailabl e Allergies Active Allergy Reactions Criticality Noted Date Comments Aspirin 11/07/2013 Ibuprofen 01/20/2015 Other reaction(s): Itching Methazolamide 07/11/2017 Other reaction(s): Stomach Pain Morphine 10/24/2014 Naproxen Nausea 12/24/2019 Nsaids 07/27/2022 Oxycodone Other (see comments) 07/11/2017 Medications pravastatin (Pravachol) 20 MG tablet Take 1 tablet by mouth 1 (one) time each day Active omeprazole (PriLOSEC) [address] capsule Take 1 capsule by mouth 1 (one) time each day Active lisinopril 10 MG tablet Take 1 tablet by mouth 1 (one) time each day Active Fluticasone Propionate, Inhal, (Flovent Diskus) 250 MCG/ACT aerosol powder Active albuterol (2.5 MG/3ML) 0.083% nebulizer solution Inhale 3 mL in the morning and 3 mL at noon and 3 mL in the evening and 3 mL before bedtime. 2 Active Aspirin Low Dose 81 MG EC tablet Take 81 mg by mouth 1 (one) time each day 3 Active Fasenra 30 MG/ML solution prefilled syringe 3 Active Cholecalciferol (Vitamin D3) 25 MCG (1000 UT) chewable tablet CHEW 2 TABLETS BY MOUTH IN THE MORNING 3 Active dexamethasone (DECADRON) 4 MG tablet TAKE 1 TABLET BY MOUTH TWICE DAILY AFTER CHEMOTHERAPY FOR 2 DAYS 3 Active Flovent HFA 110 MCG/ACT inhaler Inhale 1 puff 2 (two) times a day 3 Active gabapentin (NEURONTIN) 100 MG capsule 3 Active hydrOXYzine (ATARAX) 25 MG tablet Take 1 tablet by mouth 3 (three) times a day if needed 2 Active Combivent Respimat 20-100 MCG/ACT inhaler INHALE 1 PUFF BY MOUTH FOUR TIMES DAILY. MAY TAKE ADDITIONAL PUFFS NEEDED. NOT TO EXCEED 6 PUFFS IN 24 HOURS 3 Active ipratropium-alb uterol (Combivent Respimat) 20-100 MCG/ACT inhaler Inhale 1 puff 4 (four) times a day 1 Active Iron-Vitamins (Geritol) liquid Take 1 tablespoon daily after a meal 3 Active Linzess 145 MCG capsule Take 1 capsule by mouth 3 Active lisinopril 10 MG tablet Take 1.5 tablets by mouth 1 (one) time each day 3 Active nitrofurantoin (MACRODANTIN) 100 MG capsule 3 Active ondansetron ODT (ZOFRAN-ODT) 8 MG dispersible tablet DISSOLVE 1 TABLET ON THE TONGUE EVERY 8 HOURS NEEDED FOR NAUSEA 3 Active oxybutynin XL (DITROPAN-XL) 10 MG 24 hr tablet Take 10 mg by mouth 1 (one) time each day 3 Active pantoprazole (PROTONIX) 40 MG EC tablet Take 40 mg by mouth 1 (one) time each day 3 Active Stimulant Laxative 8.6-50 MG per tablet Take 1 tablet by mouth at bed time at bedtime 3 Active traMADol (ULTRAM) 50 MG tablet Take 50 mg by mouth every 6 (six) hours if needed 3 Active Active Problems Problem Noted Date Diagnosed Date Chronic kidney disease stage 3 02/08/2023 Hypertensive chronic kidney disease, unspecified, with chronic kidney disease stage I through stage IV, or unspecified 02/08/2023 Impaired mobility 01/11/2023 Weight loss 12/22/2022 Overview (02/20/2023): Last Assessment & Plan: PT reports significant weight loss over this year. I will prescribe Ensure for supplement as pt has underlying malignancy and mulitple other conditions, seems to be still losing weight. Pain in left leg 12/22/2022 Overview (02/20/2023): Last Assessment & Plan: as above. Start gabapentin 100 mg BID and tiatirated to 200mg BID if tolerated, campos call [facility] for med administration and monitoring. Continue ambulation with a cane and a walker du to risk of falls. Obtain recent imaging from oncology clinic I instructed patient to make an appointment with the pain clinic now as she does not have an appointent but referral is active. Will check with [facility] for evaluation of an ambulatory device as pt walker seems to need a fix. Encouraged increased PO intake, pt needs to continue Ensure due to weight loss. Acute pyelonephritis 09/14/2022 Overview (02/20/2023): Last Assessment & Plan: Sp Urosepsis, resolved. Clinically doing better sp abs. Urinary catheter in situ 09/14/2022 Overview (02/20/2023): Last Assessment & Plan: r/o UTI, [facility] to send a clean catch UA. 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 Malignant neoplasm of urinary bladder 04/25/2018 Overview (02/20/2023): Last Assessment & Plan: reoccurance detected 08/2022 Admitted to hospital for urosepsis and outlet obstruction Currently with catheter in place Follow with oncology to determine treatment modalities offered and what she is willing to try Complaining of dysuria today with grossly positive urine Macrobid ordered, follow urine culture Chronic constipation 04/25/2018 Overview (02/20/2023): Last Assessment & Plan: Continue Linzess and Colace Miralax prn Asthenia 02/15/2018 Mass of urinary bladder 02/09/2018 Hyperparathyroidism due to renal insufficiency 1 09/30/2012 History of cholecystectomy 07/23/2013 Osteopenia 01/21/2013 Subclavian artery stenosis 10/02/2012 Irritable bowel syndrome 10/02/2012 Overview (02/20/2023): Last Assessment & Plan: Continue linzess daily and take miralax prn constipation >1d. Encouraged increased water intake Osteoarthritis of hip 06/29/2012 Overview (02/20/2023): Last Assessment & Plan: More likely culprit of the symptoms, r/o piriformis syndrome Chronic low back pain 05/22/2012 Gastroesophageal reflux disease 05/22/2012 Hyperlipidemia 05/22/2012 Chronic obstructive pulmonary disease 02/20/2012 Overview (02/20/2023): Last Assessment & Plan: Continue inhahlers Poor functional status due to lung dz and malignancy Essential hypertension 02/20/2012 Overview (02/20/2023): Last Assessment & Plan: At goal <130/80 Continue current regimen Last Assessment & Plan: Controlled. Compliant w/meds Continue lisinopril Counseled re low salt diet/increase moderate physical activity. Check home BP BIW and prn CP/JONES/LAWLER Non smoking patient. Immunizations Name Administration Dates Next Due Influenza Split 05/31/2013,05/22/2012 Influenza Split High Dose Preservative Free IM 1 ,06/20/2017 Influenza, Quadrivalent, Preservative Free 06/19 Influenza, Quadrivalent, With Preservative 06/09 Influenza, Unspecified 06/19/2014,06/07/2011 Corrine SARS-COV-2 12/02/2020 Pneumococcal Polysaccharide 12/14/2021, 4 Td 01/05/2011 Tdap 10/02/2012 Zoster 10/24/2014 Family History Medical History Relation Comments Diabetes Child Diabetes Mother Diabetes Sibling Relation Status Comments Child Mother Sibling Social History Tobacco Use Types Packs/Day Years Used Date Smoking Tobacco: Former Cigarettes Comments:Smoking History Inf o:Every day Alcohol Use Standard Drinks/Week Comments No 0 (1 standard drink = 0.6 oz pur e alcohol) Comments Unknown Sex and Gender Information Value Date Recorded Sex Assigned at Not on file Legal Sex Female 5:08 PM EST Gender Identity Not on file Sexual Orientation Not on file Plan of Treatment Health Maintenance Due Date Last Done Comments Pneumococcal Vaccine: 65+ Years (3 of 3 - PCV) 12/14/2022 12/14/2021, 06/19/2014 Influenza Vaccine (#1) 2024 8, 06/20/2017, 06/09/2016, Additional history exists Hepatitis B Vaccine Aged Out No longe r eligible based on patient's age to complete this topic Insurance [facility]
[2024-10-27] MEDS: gadobutroL 7.5 ML VIAL IVPUSH (12:57)
== END 2024-10-27 11:46 | disposition home or self-care (01) ==
LOC: HO.MRI 11:45
PROVIDERS: PCP General Practice; Visit Provider Internal Medicine
DX: C67.9 Malignant neoplasm of bladder, unspecified (principal)
CPT/HCPCS: 72197; A9585

== ENCOUNTER → 2024-10-27 12:15 | Outpatient (BNV) | payer OTHER, SELFPAY | PROVIDERS: PCP General Practice; Visit Provider Radiology Diagnostic Radiology | DX: C67.9 Malignant neoplasm of bladder, unspecified (principal) | CPT/HCPCS: 72197 ==

== ENCOUNTER 2024-11-18 09:51 | Outpatient (AMB) | payer OTHER, SELFPAY ==
--- NOTE | 2024-11-18 10:05 | A.OFFVIS_ITS ---
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 Wood Car Builder Name: Latricia Page Brett Allergies shrimp Allergy (Severe, Verified 11/18/24 10:24) Hives aspirin [ASA] Allergy (Intermediate, Verified 11/18/24 10:24) RASH ibuprofen [Ibuprofen] Allergy (Intermediate, Verified 11/18/24 10:24) RASH morphine [MORPHINE] Allergy (Intermediate, Verified 11/18/24 10:24) ITCHING naproxen [From NAPROSYN] Allergy (Intermediate, Verified 11/18/24 10:24) RASH,N/V oxycodone [OXYCODONE] Allergy (Intermediate, Verified 11/18/24 10:24) NAUSEA & VOMITING, RASH sulfamethoxazole [From Bactrim] Adverse Reaction (Severe, Verified 11/18/24 10:24) Abdominal Pain trimethoprim [From Bactrim] Adverse Reaction (Severe, Verified 11/18/24 10:24) Abdominal Pain HPI HPI COPD: Details: 79-year-old lady, former approximately 15 pack-year smoker, quit 2014 followed for dyspnea on exertion and moderate to severe persistent asthma.? She continues to use Nucala, Flovent, and Combivent with good control of her underlying symptoms. She denies any recent exacerbations. No significant changes since prior. [facility] Medical History COPD (chronic obstructive pulmonary disease) Port-A-Cath in place Back pain Spinal stenosis Chronic pain syndrome Osteoarthritis GERD (gastroesophageal reflux disease) Emphysema lung Hyperlipidemia Hypertension Asthma Hemorrhoids with complication UTI (urinary tract infection) Malignant neoplasm of urinary bladder Surgical History History of surgery History of ERCP Hx laparoscopic cholecystectomy Hx of cystoscopy History of hysterectomy with bilateral oophorectomy Hx of colonoscopy (01/17/19) History of esophagogastroduodenoscopy (EGD) Family History Father No problems noted. Mother Diabetes Brother Lung cancer Daughter Diabetes Social History (Updated 08/15/24 @ 09:39 by Cee Ragsdale RN) Household Members: Spouse Housing: Apartment Are you a primary urgent care nurse practitioner to a significant other at home: No Do you presently have visiting nurse or other home services: No Alcohol intake: never Patient Tobacco Use Status: Former Tobacco user Tobacco use type: Cigarette Years Smoked: 56 service: No Current occupational status: retired Current occupation: rt handed Review of Systems Const Denies daytime sleepiness, Denies excessive sweating, Denies fatigue, Denies fever(s), Denies lethargy, Denies malaise, Denies night sweats, Denies snoring and Denies weight loss Eyes Denies blurry vision and Denies itchy eyes ENT Denies nasal congestion, Denies post nasal drip, Denies sinus pain, Denies sinus pressure and Denies other ( Thrush) Card Denies chest pain, Denies pedal edema, Denies dyspnea, Denies orthopnea and Denies paroxysmal nocturnal dyspnea Resp Denies cough, Denies hemoptysis, Denies excessive phlegm production, Denies dyspnea, Denies snoring and Denies wheezing GI Denies abdominal pain and Denies heartburn Musc Denies myalgias, Denies arthralgias and Denies joint swelling Skin/Breast Denies rash Neuro Denies memory loss and Denies seizure-like activity Psych Denies abnormal sleep pattern, Denies anxiety and Denies memory loss Endo Denies excessive sweating, Denies fatigue and Denies heat intolerance Elio/Lymph Denies easy bruising Aller/Immun Denies itchy eyes, Denies seasonal rhinorrhea and Denies wheezing Physical Exam Vital Signs: Last Vital Signs Pulse 96 11/18/24 10:20 BP 102/60 11/18/24 10:20 Pulse Ox 99 11/18/24 10:20 Oxygen Delivery Method Room Air 11/18/24 10:20 BMI result Body Mass Index 18.5 Const General: no acute distress and alert Nutritional Appearance: not obese Orientation/consciousness: Other orientation findings ( oriented) HEENT Head: Yes atraumatic Eyes General: appearance normal, both eyes and all related structures Sclerae: sclerae normal EOM: EOMs intact bilaterally Neck Neck: Yes supple Lymphatic: no lymphadenopathy noted Resp Effort & Inspection: normal respiratory effort and no use of accessory muscles Auscultation: clear to auscultation bilaterally Cardio Rate: regular rate Rhythm: regular rhythm Heart sounds: no gallops, no murmurs and no rubs Skin General skin exam: other ( warm) Extrem General: No clubbing, No cyanosis and No edema Assessment & Plan Assessment & Plan (1) Severe persistent asthma: Code(s): J45.50 - Severe persistent asthma, uncomplicated Category: Medical Plan: Well controlled on Nucala, Flovent, Combivent, and albuterol MDI. Continue current regimen. (2) Environmental allergies: Code(s): Z91.09 - Other allergy status, other than to drugs and biological substances Category: Medical Plan: Well controlled on Nucala. Continue current regimen. Orders: Orders XR chest 2V Today J45.50 - Severe persistent asthma, uncomplicated Coding Level of Care Code Est Pt Level 4 (11563) Diagnoses Severe persistent asthma J45.50 Environmental allergies Z91.09
[2024-11-18 10:20] VITALS: BP 102/60; PULSE 96; O2SAT 99; BMI 18.5
--- OUTSIDE RECORDS SUMMARY | 2024-11-18 10:47 | XMS_ITS | Data Portability ---
Author Organization [facility] [place] - [facility] Address [address] [place] [phone] Care Team Providers Care Manager Estate Name Role Phone HIM [facility] OTHER [facility] OTHER Assessment No assessment recorded. Plan of Treatment Reminders Order Date Submit Date Provider Last Modified By Organization Details Last Modified Time Details Appointments None recorded. Lab rapid strep group A, throat 2023 024 [facility], [address] [place] [address], [phone], 12:54:14 Referral None recorded. Procedures None recorded. Surgeries None recorded. Imaging None recorded. Medication Orders nystatin 100,000 unit/mL oral suspension 2023 024 [id number], [address], [place], [id number], 12:54:22 Patient TargetsNo targets recorded. Patient InstructionsNo instructions recorded. Reason for Referral None Reported. Results Created Date Observation Date Name Description Value Unit Range Abnormal Flag Note LastModifiedBy Organization Detail LastModifiedTime 02/12/20 24 02/12/2024 rapid strep group A, throa t Strep negati ve Not Available [address], [phone], 02/12/2024 12:52:54 Result Notes None recorded. Medical Equipment None Reported. Allergies Allergen ID Allergen Name Allergen Category Reaction Reaction Severity Criticality Documentation Date Start Date Code Code System Note Provider Name and Address Organization Details Recorded Time 5739 aspirin medicatio n Not available Not available Not available 04/10/2024 1191 RxNorm Not Available [facility] - [facility] 4 04:12:42 5740 ibuprofen medicatio n Not available Not available Not available 04/10/2024 5640 RxNorm Not Available [facility] - production 4 04:12:42 5741 morphine medicatio n Not available Not available Not available 04/10/2024 7052 RxNorm Not Available [facility] - production 4 04:12:42 5742 Dupixent medicatio n Not available Not available Not available 04/10/2024 92645 02 RxNorm COLLEEN IVAN MD [address] [place] [address],[address], [place], [phone], [email or web address], [employer] 4 09:07:46 5743 naproxen medicatio n Not available Not available Not available 04/10/2024 7258 RxNorm COLLEEN IVAN MD [address] [place] [address],[address], [place], [phone], [employer], [employer] 4 09:08:04 5744 oxycodone medicatio n Not available Not available Not available 04/10/2024 7804 RxNorm COLLEEN IVAN MD [address] [place] [address],[address], [place], [phone], [employer], [employer] 4 09:08:18 Medications Name Sig Start Date Stop Date Status Note LastModified by Organization Details LastModified Time nystatin 100,000 unit/mL oral suspension SHAKE LIQUID AND TAKE 5 ML BY MOUTH FOUR TIMES DAILY active Not Available Not Available No t Available albuterol sulfate 2.5 mg/3 mL (0.083 %) solution for nebulization USE 3 ML VIA NEBULIZER EVERY 6 HOURS NEEDED FOR SHORTNESS OF BREATH active Not Available Not Available No t Available oxybutynin chloride ER 10 mg tablet,exten ded release 24 hr TAKE 1 TABLET BY MOUTH DAILY active Not Available Not Available Not Available azithromycin 250 mg tablet TAKE 2 TABLETS BY MOUTH ON THE FIRST DAY THEN 1 TABLET FOR 4 ADDITIONAL DAYS active Not Available Not Available No t Available pravastatin 40 mg tablet active Not Available Not Available Not Available prochlorpera zine maleate 10 mg tablet TAKE 1 TABLET BY MOUTH EVERY 8 HOURS NEEDED FOR NAUSEA active Not Available Not Available No t Available omeprazole 40 mg capsule,eli yed release TAKE 1 CAPSULE BY MOUTH DAILY active Not Available Not Available Not Available aspirin 81 mg tablet,delay ed release TAKE 1 TABLET BY MOUTH EVERY DAY active Not Available Not Available No t Available tramadol 50 mg tablet TAKE 2 TABLETS BY MOUTH EVERY 6 HOURS NEEDED FOR BREAKTHROUG H PAIN active Not Available Not Available No t Available ondansetron 8 mg disintegrati ng tablet DISSOLVE 1 TABLET ON THE TONGUE EVERY 8 HOURS NEEDED FOR NAUSEA active Not Available Not Available No t Available lidocaine-pr ilocaine 2.5 %-2.5 % topical cream APPLY TO BOTH FEET 15-30 MINUTES PRIOR TO QUTENZE APPLICATION ON 09/15/2023 active Not Available Not Available N ot Available hydrocortiso ne 2.5 % topical cream with perineal applicator APPLY RECTALLY TO THE AFFECTED AREA TWICE DAILY active Not Available Not Available No t Available phenazopyrid ine 100 mg tablet TAKE 1 TABLET BY MOUTH THREE TIMES DAILY FOR 5 DAYS FOR BLADDER PAIN active Not Available Not Available No t Available erythromycin 5 mg/gram (0.5 %) eye ointment active Not Available Not Available Not Available nitrofuranto in macrocrystal 100 mg capsule active Not Available Not Available Not Available lisinopril 10 mg tablet TAKE 1 AND 1/2 TABLETS BY MOUTH EVERY DAY active Not Available Not Available No t Available hydroxyzine HCl 25 mg tablet TAKE 1 TABLET BY MOUTH THREE TIMES DAILY active Not Available Not Available Not Available cefuroxime axetil 500 mg tablet TAKE 1 TABLET BY MOUTH TWICE DAILY active Not Available Not Available No t Available levofloxacin 500 mg tablet TAKE 1 TABLET BY MOUTH DAILY FOR 5 DAYS active Not Available Not Available N ot Available albuterol sulfate HFA 90 mcg/actuatio n aerosol inhaler INHALE 2 PUFFS BY MOUTH EVERY 4 TO 6 HOURS NEEDED FOR SHORTNESS OF BREATH OR WHEEZING active Not Available Not Available Not Available fluticasone propionate 110 mcg/actuatio n HFA aerosol inhaler INHALE 1 PUFF BY MOUTH TWICE DAILY active Not Available Not Available No t Available lactulose 10 gram/15 mL oral solution TAKE 15 ML BY MOUTH IN THE MORNING. UNTIL BOWEL MOVEMENT OCCURS active Not Available Not Available No t Available diclofenac 1 % topical gel APPLY TOPICALLY TWICE DAILY. APPLY TO HANDS THEN PUT ON GLOVES active Not Available Not Available No t Available fesoterodine ER 8 mg tablet,exten ded release 24 hr TAKE 1 TABLET BY MOUTH DAILY active Not Available Not Available Not Available Vitamin D3 25 mcg (1,000 unit) chewable tablet CHEW 2 TABLETS BY MOUTH IN THE MORNING active Not Available Not Available Not Available Combivent Respimat 20 mcg-100 mcg/actuatio n solution for inhalation INHALE 1 PUFF BY MOUTH FOUR TIMES DAILY. MAY TAKE ADDITIONAL PUFFS NEEDED. NOT TO EXCEED 6 PUFFS IN 24 HOURS active Not Available Not Available No t Available Linzess 145 mcg capsule TAKE 1 CAPSULE BY MOUTH EVERY MORNING active Not Available Not Available No t Available Fasenra 30 mg/mL subcutaneous syringe active Not Available Not Available Not Available Dupixent 300 mg/2 mL subcutaneous pen injector active Not Available Not Available Not Available Vitals Date Recorded Respiratory rate Oxygen saturation Oxygen saturation in Arterial blood by Pulse oximetry Body temperature Heart rate Systolic blood pressure Diastolic blood pressure Provider Name and Address Organization Details Last Updated DateTime 4 16 /min 95 % 95 % 99.1 [degF] 105 /min 106 mm[Hg] 66 mm[Hg] Not Available [employer] [facility] [employer] 4 10:22:14 Date Recorded Oxygen saturation Oxygen saturation in Arterial blood by Pulse oximetry Body temperature Body weight Heart rate Body height Respiratory rate Systolic blood pressure Diastolic blood pressure Provider Name and Address Organization Details Last Updated DateTime 4 98 % 98 % 99.1 [degF] 67908 g 90 /min 152.4 cm 14 /min 120 mm[Hg] 80 mm[Hg] Not Available [employer] - [employer] 4 09:29:14 Social History None recorded. Functional Status None recorded. Mental Status None recorded. Family History Nothing Reported. Medical History No medical history recorded. Gynecological HistoryNo gynecological history recorded. Obstetrics History GPAL:G 0 P 0 0 0 0 Past Encounters Encounter ID Performer Location Encounter Start Date Encounter Closed Date Diagnosis/Indication Diagnosis SNOMED-CT Code Diagnosis ICD10 Code Diagnosis Note [id number] Dominick Walker MD [facility] - [facility] [address] [place] [phone] 02/12/2024 10:22:08 02/12/2024 16:37:24 Candidiasis of mouth 93474180 B37.0 Sent out for rapid strep and refill of Nystatin. [id number] COLLEEN IVAN MD [facility] - [facility] [address] [place] [phone] 04/10/2024 09:28:55 04/10/2024 11:00:49 Attention to nephrostomy tube 412377217 Z43.6 Evaluation in the field was performed by my senior data developer colleague, as noted above, I provided real-time direction and supervisio n for this visit. The evaluation revealed a 78-year-ol d female, status post bilateral nephrostom y tube placement on the or 17 of March, with concerns that the dressing has not been changed since. She denies bleeding, drainage, fever, chills, nausea, and vomiting. Per discussion with the patient via a Ivorian interprete r, she reports that she has a telehealth visit with Urology on April 12. VSS.Per discussion and per photo view, dressing in place, dry, clean with no urine or blood saturation Impression :B/L nephrostom y tube in place Plan:Since the dressing was intact, the senior data developer did not feel comfortabl e changing it without risking dislodgeme nt. Given that the patient has a telehealth visit with urology in 2 days, the decision was made not to change the dressing. The patient will discuss with urology when and how the dressing should be changed. If urology requests that the dressing be changed by us, the patient is aware to call us back.Red flags discussed with the patient . Primary care, consider__ _ Dispositio n: We discussed the diagnostic uncertaint y of home visits and the risk associated with this. In this case, the patient and I felt this to be an acceptable and reasonable amount of risk given the benefit of avoiding an ED visit. We discussed the need to seek care urgently/e mergently in the setting of any new or worsening serious symptoms, particular ly fever, chills, redness around the nephrostom y tube, nausea, vomiting, drainage of clear fluid/ urine, blood from the nephrostom y tube , saturation of the gauze or any other concerns. Health Concerns Section Related Observation LastModified by Organization Detai ls LastModified Time None Recorded Concern Status LastModified by Organization Details LastModified Time None Recorded Advance Directives Directive None Recorded Payers Encounter Date Sequence Insurance Name Policy Number Policy Brooks Covered Member ID Brooks Member ID Guarantor Name 02/12/2024 1 [facility] - DOS ON OR AFTER 2022 - DUAL ELIGIBLE - ASSISTED OPTIONS AND ONE CARE (MEDICARE REPLACEMENT/ADV ANTAGE - HMO) Altaf Alba [id number] Altaf Alba 04/10/2024 1 [facility] - DOS ON OR AFTER 2022 - DUAL ELIGIBLE - ASSISTED OPTIONS AND ONE CARE (MEDICARE REPLACEMENT/ADV ANTAGE - HMO) Altaf Alba [id number] Altaf Alba Notes Date Note Type Note Provider Name and Address Organization Details Recorded Time 02/12/2024 text/html HPI: PMH: Malignant tumor of urinary bladderCall returned to Altaf Alba to triage below. Reports having Sore throat x 1 day. Per pt having some pain with swallowing. Per pt no swelling, redness, or white patches. Pt denies any fever or cough. No ear pain. Pt denies any drooling. Pt alert, speaking in clear full sentences. Pt seen at [facility]/[place] for similar sx and given Nystatin for thrush as has hx of this. Pt unable to come into office. Pt agrees to [facility] for eval. ................... ................... ................... ................... ................... ................... ................... ........ CRC Nurse Triage Notes (Marilia Bee): Comments: CRC RN DID NOT NEED FURTHER INFO Financial Quantitative Analyst POC Test Results from Yovany Sesay Rapid strep test (1) [10:30] Strep: - ................... ................... ................... ................... ................... ................... ................... ........ Financial Quantitative Analyst Note From Yovany Sesay: Pt reports off and on thrush in her mouth for over one month. Pt sts she has seen her PCP multiple times and they keep prescribing nystatin swish and rinse. Pt sts all cultures and tests that the PCP has performed have been negative. Pt reports her sx improve while using the nystatin, however quickly return when she completes it. Pt sts she called PCP? s office this morning and they told her to have [facility] come out to test for strep. PCP also requested [facility] to refill her nystatin and instruct the pt to f/u with them in three days. Pt denies CP, SOB, f/n/v/d. Pt is alert, NAD. VSS. Afebrile. Non focal neuro exam. Normal gait. Unremarkable ENT exam. Lungs CTA. Benign ABD exam. No LE edema. Rapid strep negative. [facility] [place] and will send nystatin rx to pharmacy. Pt instructed to f/u with PCP as they requested. Red flags reviewed. ................... ................... ................... ................... ................... ................... ................... ........ Disposition: Chantal Walker MD [address] [facility],[address], [place], [phone], [employer] 02/12/2024 12:54:18 04/10/2024 text/html CRC Nurse Triage Notes (Tori Nolasco): Reason For Request: Wound care Chief Complaints: Wound Care PMH: COPD/Asthma, Hypertension, Cancer, Heart Disease Allergies: Aspirin, Ibuprofen, Morphine Other Allergies: dupixent, MS, ASA, naproxen, oxycodone, mult others that she can't recall Comments: Referral taken via Nurse Intern [id number]. Member calling in to place a referral, identified via name and . PMHx HTN, HLD, emphysema, asthma, and bladder cancer. ALLERGIES: ASA, MS, IBU, naproxen, dupixent, oxycodone and multiple others that member cannot recall. Member who had a kidney procedure on March 16 or . Per member she has bilateral lower back incisions with drains. Member concerned for infection as she has not had them changed since the procedure was done. Member can see dressings and state, they look ugly . Member denies any pain, has occasional nausea from the cancer but takes SL zofran with good effect. She denies any fever/chills, denies any abdominal pain, bloating or distention. Member would like to be evaluated. ................... ................... ................... ................... ................... ................... ................... ........ Financial Quantitative Analyst Note From Jelani Geller: Patient conscious alert oriented times three denies complaints. Patient has a question about her dressings. Patient states she had kidney surgery about a month ago. Patient has drains with dressings. Patient requests that I change the dressings. Patient states they are likely a possible source of infection. Patient denies nausea, vomiting diarrhea, or any other pain or complaints.Patient states urine has been flowing normally through tubes. Dressings appear, clean, dry without any leaking, moisture, discoloration, odor, discharge, or other concern. [facility] [place] encourages patient to follow up with urology, patient has an appointment [place] 2. Red flags patient education discussed. Patient demonstrates understanding of care and plan. Financial Quantitative Analyst Allergies: Aspirin, Ibuprofen, Morphine ................... ................... ................... ................... ................... ................... ................... ........ Disposition: Chantal IVAN MD [address] [place] [address],[address], [place], [phone], [employer] 04/10/2024 10:27:47 OBGyn Episode No OBEpisode recorded.
--- OUTSIDE RECORDS SUMMARY | 2024-11-18 10:47 | XMS_ITS | Clinical Summary ---
Author Organization [facility] Address [address] [address] Care Team Providers Care Director Of Music Name Role Phone Unavailable Primary Care Provider [...]
== END 2024-11-18 10:45 | disposition home or self-care (01) ==
PROVIDERS: PCP General Practice; Visit Provider Internal Medicine Pulmonary Disease
DX: J45.50 Severe persistent asthma, uncomplicated (principal); Z91.09 Other allergy status, other than to drugs and biological substances
CPT/HCPCS: 99214

== ENCOUNTER → 2024-11-18 09:51 | Outpatient (BNVA) | payer OTHER, SELFPAY | PROVIDERS: PCP General Practice; Visit Provider Internal Medicine Pulmonary Disease | DX: J45.50 Severe persistent asthma, uncomplicated (principal); Z91.09 Other allergy status, other than to drugs and biological substances | CPT/HCPCS: 99212 ==

== ENCOUNTER 2024-11-20 09:20 | Outpatient (REF) | payer OTHER, SELFPAY ==
--- NOTE | ~2024-11-20 | CT_ITS ---
CLINICAL HISTORY: Assess response to treatment CT abdomen and pelvis with IV contrast. COMPARISON: CT abdomen and pelvis dated 07/28/24 at 08:54 EST FINDINGS: Visualized lung bases are clear. Scattered gas within the biliary tree likely secondary to instrumentation of the common bile duct. Cholecystectomy. No choledocholithiasis identified. Normal spleen. Normal pancreas. Normal adrenal glands. Percutaneous nephrostomy tubes present bilaterally. No hydronephrosis. Focal area of loss of cortical enhancement along the superior pole of the left kidney (series 3, image 15). No hydroureter. Normal appendix. [id number] colonic stool burden. No bowel obstruction. Mild distal colonic diverticulosis without evidence of diverticulitis. Moderate aortoiliac atherosclerotic vascular calcifications. Enlarged retroperitoneal lymph nodes redemonstrated. For example, retroperitoneal/left periaortic lymph node measuring 2.7 x 1.5 cm (series 3, image 24), previously measured 1.3 x 0.9 cm. Left periaortic lymph node measuring 1.4 x 1.1 cm (series 3, image 29), previously measured 0.8 x 1.4 cm. Enlarged lymph node at the bifurcation of the aorta on the left measuring 1.2 x 1.3 cm (series 3, image 35), previously measured 1.3 x 1.1 cm. Left external iliac lymph node measuring 1.3 x 1.3 cm (series 3, image 53), previously measured 1.1 x 0.7 cm. Marked circumferential thickening of the mucosa of the urinary bladder with heterogeneous enhancement primarily along the inferior aspect. Uterus is not seen. No adnexal mass. Multiple chronic wedge compression fractures of the lower thoracic and lumbar spine most pronounced at L5 where there is approximately 50 percent height loss. Marked apex left curvature of the lower thoracic and upper lumbar spine. Advanced multilevel spondylosis. IMPRESSION: 1. Enlarged retroperitoneal lymph nodes appear similar in number but overall mildly increased in size since prior imaging. 2. Marked heterogeneously enhancing circumferential thickening of the mucosa of the urinary bladder suggestive of malignancy, similar to prior imaging. 3. Focal loss of cortical enhancement along the superior pole of the left kidney. Nonspecific finding can be associated with pyelonephritis. Recommend correlation clinically. Percutaneous nephrostomy tubes appear in stable position without evidence of obstruction. This document has been electronically signed by: Mark Hilton MD on 11/20/2024 13:06:13
--- NOTE | ~2024-11-20 | XR_ITS ---
CLINICAL HISTORY: J45.50 - Severe persistent asthma, uncomplicated 2 view chest x-ray Comparison: CR/NE/SR - XR CHEST 2V - 04/09/24 09:11 EDT Findings: Interval right internal jugular MediPort with catheter tip in the cavoatrial junction. Heart size is normal. Atherosclerotic vascular disease of aortic arch. Lungs are hyperinflated with mild chronic interstitial changes. No consolidation, pleural effusion or pneumothorax. Degenerative changes of the spine. No acute fracture. IMPRESSION: 1. No acute findings. 2. Findings suggestive of emphysema. 3. Right MediPort with catheter tip at the cavoatrial junction. This document has been electronically signed by: Kasia Gaxiola MD on 11/20/2024 17:14:07
[2024-11-20] MEDS: iohexoL 350 MG/ML 100 ML INFUS..BTL IV (10:06)
--- OUTSIDE RECORDS SUMMARY | 2024-11-20 10:06 | XMS_ITS | Encounter Summary ---
Author Organization [facility] Address [address] [place] [address] Care Team Providers Care Dry Cans Operator Name Role Phone Angeline Klein MD Primary Care Provider [phone] Encounter Details Date Type Department Care Team (Late st Contact Info) Description 08/01/2022 Abstract [facility]INE [address] [place], [place] [phone] Angeline Klein MD [address] [place], [place] [phone] Social History Tobacco Use Types Packs/Day Years Used Date Smoking Tobacco: Never Assessed Comments Unknown Sex and Gender Information Value Date Recorded Sex Assigned at Female 07/11/2022 10:14 AM EDT Legal Sex Female 10:14 AM EDT Gender Identity Female 10/05/2022 1:54 PM EST Sexual Orientation Straight 07/11/2022 10 :14 AM EDT documented as of this encounter Plan of Treatment Not on file documented as of this encounter Visit Diagnoses Not on filedocumented in this encounter Care Teams Dry Cans Operator Relationship Specialty Start Date End Date Angeline Klein MD [address] [place], [place] [phone] PCP - General Family Medicine 08/21/20 documented as of this encounter
--- OUTSIDE RECORDS SUMMARY | 2024-11-20 10:06 | XMS_ITS | Encounter Summary ---
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 I have lobo mcdaniel 11/17/[address] you li ve. Do you have problems with any of the following? None of the above 11/17/2023 Food Insecurity Answer Date Recorded Within the past 12 months, y ou worried that your food would run out before you got money to buy more: Never True 11/17/2023 Within the past 12 months,th e food you bought just didn't last and you didn't have enough money to get more: Never True 04/2024 Transportation Answer Date Recorded In the past 12 months, has l ack of transportation kept you from medical appts, meetings, work or from getting things needed for daily living? No 11/17/2023 Utilities Answer Date Recorded In the past 12 months, has t he electric, gas, oil or water company threatened to shut off services in your home? No 11/17/2023 Depression Answer Date Recorded Patient Health Questionnaire-2 Score 1 12/26/2023 Comments Unknown Sex and Gender Information Value Date Recorded Sex Assigned at Female 07/11/2022 10:14 AM EDT Legal Sex Female 10:14 AM EDT Gender Identity Female 10/05/2022 1:54 PM EST Sexual Orientation Straight 07/11/2022 10 :14 AM EDT documented as of this encounter Plan of Treatment Not on file documented as of this encounter Visit Diagnoses Diagnosis Mixed stress and urge urinary incontinence- Primary Mixed incontinence urge and stress (male)(female) documented in this encounter Additional Health Concerns Assessment Noted Time PHQ-9 Depression Total Score: 4 12/26/19 24 10:32 AM EDT documented as of this encounter Care Teams Credit Collection Specialist Relationship Specialty Start Date End Date Angeline Klein MD [address] [place] [phone] PCP - General Family Medicine 08/21/20 documented as of this encounter
--- OUTSIDE RECORDS SUMMARY | 2024-11-20 10:06 | XMS_ITS | Encounter Summary ---
Author Organization [employer] Address [address] [place] [address] Care Team Providers Care Deputy Controller Name Role Phone Angeline Klein MD Primary Care Provider [phone] Encounter Details Date Type Department Care Team (Late st Contact Info) Description 04/12/2024 Orders Only [facility] [address] [place], [place] [phone] Guadalupe Garrido MD [address] [place] [address] Social History Tobacco Use Types Packs/Day Years [...] Diagnoses Not on filedocumented in this encounter Additional Health Concerns Assessment Noted Time PHQ-9 Depression Total Score: 4 12/26/19 24 10:32 AM EDT documented as of this encounter Care Teams Deputy Controller Relationship Specialty Start Date End Date Angeline Klein MD [address] [place] [address] PCP - General Family Medicine 08/21/20 documented as of this encounter
--- OUTSIDE RECORDS SUMMARY | 2024-11-20 10:07 | XMS_ITS | Encounter Summary ---
Author Organization [employer] Address [address] [facility] 7t [place] [address] Care Team Providers Care Assistant Customer Service Manager Name Role Phone Angeline Klein MD Primary Care Provider [phone] Encounter Details Date Type Department Care Team (Late st Contact Info) Description 10/27/2024 Orders Only [facility] External Provider, [facility] Social History Tobacco Use Types Packs/Day Years [...] on file documented as of this encounter Procedures Procedure Name Priority Date/Time Associated Diagnosis Comments MR PELVIS W AND WO CONTRAST Routine 10/27/2024 3:14 PM EST documented in this encounter Results * MR Pelvis w/ and w/o Contrast (10/27/2024 3:14 PM EST) Anatomical Region Laterality Modality Body, Pelvis Magnetic Resonan ce 10/27/2024 3:14 PM EST Narrative 10/27/2024 3:15 PM EST ? [facility] ?[address] ?[place] [address] ? Magnetic Resonance Report ? Signed ? Patient: Altaf Alba ?MR#: [id number] ?? 260 ? : 1945 ?Acct:[id number] ? Age/Sex: 79 / F ?ADM Date: 10/27/24 ? Loc: HO.MRI ? Attending Dr: Destiney Palacios MD ? Ordering Physician: Destiney Palacios MD ?? Date of Service: 10/27/24 ?? Procedure(s): MR pelvis wo/w con ?? Accession Number(s): [id number] ? cc: Destiney Palacios MD; Angeline Klein ? CLINICAL HISTORY: F O BLADDER ? MRI pelvis with and without contrast: ? Comparison: CT 07/28/2024. MRI 07/11/2024 ? Findings: ? The uterus is not identified and may be small and atrophic or surgically ?? absent. ?? No free fluid in the pelvis. ?? The presacral space is unremarkable. ?? Rectovaginal space is normal. ?? There is lobular diffuse thickening of urinary bladder wall. ?? The anterior urinary bladder retropubic space of Retzius is enhancing ?? adjacent to contiguous thickened bladder wall on contrast sequence. ?? The most thickened area of inferior posterior bladder wall measures 10 mm ?? in thickness. ?? Mesorectal tissue is unremarkable in morphology but shows enhancement and ?? mild anterior thickening. ? Lymph nodes: ?? 9.3 x 1.3 cm left internal iliac node, image 55, series 8. ?? Left retroperitoneal 1.2 x 1.5 cm lymph node image 12 series 10, and image ?? 8, series 3. ?? Few scattered superficial fascia inguinal lymph nodes, example: 10 mm ?? lymph node image 71, series 10 on the right ?? After injection of intravenous contrast there is intense enhancement of ?? urinary bladder wall, bladder trigone and urethra which may be partly due ?? to urinary tract excretion of contrast. There is thickening of urogenital ?? diaphragm and attenuation of the ischial rectal space with increased soft ?? tissue density and vascular and interstitial enhancement. ? An osteoporosis insufficiency fracture of the L5 is unchanged from the ?? previous exam. ? Impression: ?? Lobular diffuse thickening of urinary bladder wall measuring up to 15 mm ?? in thickness is unchanged when compared to prior MRI but is increased when ?? compared to CT from 07/28/2024 ?? Morphology and enhancement pattern is consistent with bladder neoplasm and ?? inflammatory reaction to neoplasm or superinfection. Extent of bladder ?? involvement is not significantly changed from previous exam. ?? A 9.3 x 1.3 cm left internal iliac lymph node is present. ?? Correlate with biopsy reports and prior x-ray reports when available. ? This document has been electronically signed by: Scar Correa MD on ?? 10/27/2024 15:14:12 ? Dictated By: ?Scar Correa MD ? Signed By: ?<Electronically signed by Scar Correa MD in OV> ?10/27/24 1515 ? DD/ 1514 ? TD/TT: 10/27/24 1514 ? Chemical Equipment Sales Engineer: ? Procedure Note [place], Image - 10/27/[address] [address] Magnetic Resonance Report Signed Patient: Altaf Alba#: [id number] : 6Acct:[id number] Age/Sex: 79 / FADM Date: 10/27/24 Loc: HO.MRI Attending Dr: Destiney Palacios MD Ordering Physician: Destiney Palacios MD Date of Service: 10/27/24 Procedure(s): MR pelvis wo/w con Accession Number(s): [id number] cc: Destiney Palacios MD; Angeline Klein CLINICAL HISTORY: F O BLADDER MRI pelvis with and without contrast: Comparison: CT 07/28/2024. MRI 07/11/2024 Findings: The uterus is not identified and may be small and atrophic or surgically absent. No free fluid in the pelvis. The presacral space is unremarkable. Rectovaginal space is normal. There is lobular diffuse thickening of urinary bladder wall. The anterior urinary bladder retropubic space of Retzius is enhancing adjacent to contiguous thickened bladder wall on contrast sequence. The most thickened area of inferior posterior bladder wall measures 10 mm in thickness. Mesorectal tissue is unremarkable in morphology but shows enhancement and mild anterior thickening. Lymph nodes: 9.3 x 1.3 cm left internal iliac node, image 55, series 8. Left retroperitoneal 1.2 x 1.5 cm lymph node image 12 series 10, and image 8, series 3. Few scattered superficial fascia inguinal lymph nodes, example: 10 mm lymph node image 71, series 10 on the right After injection of intravenous contrast there is intense enhancement of urinary bladder wall, bladder trigone and urethra which may be partly due to urinary tract excretion of contrast. There is thickening of urogenital diaphragm and attenuation of the ischial rectal space with increased soft tissue density and vascular and interstitial enhancement. An osteoporosis insufficiency fracture of the L5 is unchanged from the previous exam. Impression: Lobular diffuse thickening of urinary bladder wall measuring up to 15 mm in thickness is unchanged when compared to prior MRI but is increased when compared to CT from 07/28/2024 Morphology and enhancement pattern is consistent with bladder neoplasm and inflammatory reaction to neoplasm or superinfection. Extent of bladder involvement is not significantly changed from previous exam. A 9.3 x 1.3 cm left internal iliac lymph node is present. Correlate with biopsy reports and prior x-ray reports when available. This document has been electronically signed by: Scar Correa MD on 10/27/2024 15:14:12 Dictated By: Scar Correa MD Signed By: <Electronically signed by Scar Correa MD in OV> 10/27/24 1515 DD/ 1514 TD/TT: 10/27/24 1514 Chemical Equipment Sales Engineer: [facility] External Provider IMG MRI PROCEDURES Edited Result - Final documented in this encounter Visit Diagnoses Not on filedocumented in this encounter Additional Health Concerns Assessment Noted Time PHQ-9 Depression Total Score: 4 12/26/19 24 10:32 AM EDT documented as of this encounter Care Teams Assistant Customer Service Manager Relationship Specialty Start Date End Date Angeline Klein MD [address] [place] [address] PCP - General Family Medicine 08/21/20 documented as of this encounter
--- OUTSIDE RECORDS SUMMARY | 2024-11-20 10:07 | XMS_ITS | Encounter Summary ---
Author Organization [employer] Address 75 [facility] 7t [place] [address] Care Team Providers Care Green Feed Attendant Name Role Phone Angeline Klein MD Primary Care Provider [phone] Encounter Details Date Type Department Care Team (Late st Contact Info) Description 02/01/2023 Abstract [facility] MEDICINE [address] [place], [place] [phone] Angeline Klein MD [address] [place] [address] Social History Tobacco Use Types Packs/Day Years Used Date Smoking Tobacco: Never Smokeless Tobacco: Never Alcohol Use Standard Drinks/Week Comments Never 0 (1 standard drink = 0.6 oz pur e alcohol) Depression Answer Date Recorded Patient Health Questionnaire-2 Score 0 09/14/2022 Comments Unknown Sex and Gender Information Value [...] on filedocumented in this encounter Care Teams Green Feed Attendant Relationship Specialty Start Date End Date Angeline Klein MD [address] [place], [place] [phone] PCP - General Family Medicine 08/21/20 documented as of this encounter
--- OUTSIDE RECORDS SUMMARY | 2024-11-20 10:07 | XMS_ITS | Encounter Summary ---
Author Organization [employer] Address [address] [facility] 7t [place] [address] Care Team Providers Care Cotton Weigher Operator Name Role Phone Angeline Klein MD Primary Care Provider [phone] Encounter Details Date Type Department Care Team (Late st Contact Info) Description 05/10/2024 Orders Only [facility] MEDICINE [address] [place], [place] [phone] Angeline Klein MD [address] [place] [address] Oral thrush (Primary Dx) Social History Tobacco Use Types [...] as of this encounter Visit Diagnoses Diagnosis Oral thrush- Primary Candidiasis of mouth documented in this encounter Additional Health Concerns Assessment Noted Time PHQ-9 Depression Total Score: 4 12/26/19 24 10:32 AM EDT documented as of this encounter Care Teams Cotton Weigher Operator Relationship Specialty Start Date End Date Angeline Klein MD [address] [place] [id number] PCP - General Family Medicine 08/21/20 documented as of this encounter
--- OUTSIDE RECORDS SUMMARY | 2024-11-20 10:07 | XMS_ITS | Encounter Summary ---
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
--- OUTSIDE RECORDS SUMMARY | 2024-11-20 10:07 | XMS_ITS | Encounter Summary ---
Author Organization [employer] Address [address] [facility] 7t [place] [address] Care Team Providers Care District Representative Name Role Phone Angeline Klein MD Primary Care Provider [phone] Reason for Visit * Reason Onset Date Comments Referral 04/04/2023 Encounter Details Date Type Department Care Team ([facility] st Contact Info) Description 04/04/2023 Telephone [facility] MEDICINE [address] [place] [address] Angeline Klein MD [address] [place] [address] Referral Social History Tobacco Use Types Packs/Day Years [...] AM EDT documented as of this encounter Miscellaneous Notes * Telephone Encounter - Henrietta Maharaj RN - 04/05/2023 11:18 AM EDT TC placed to pt [phone] in regards to below message however number is OOS. RN called pt's OPHELIA Larson [phone] who was able to confirm the pt DOES want to go to [facility] pain management. RN informed[facility] PCP would place referral today. OPHELIA Larson also provided RN w/ updated number for the pt ([phone]). RN has updated pt's chart. Please place referral to [facility] pain management. * Telephone Encounter - Mary Devon - 04/04/2023 2:43 PM EDT Tc from kelly with [facility] requesting a new referral for pain management. documented in this encounter Plan of Treatment Not on file documented as of this encounter Visit Diagnoses Not on filedocumented in this encounter Care Teams District Representative Relationship Specialty Start Date End Date Angeline Klein MD [address] [place] [id number] PCP - General Family Medicine 08/21/20 documented as of this encounter
--- OUTSIDE RECORDS SUMMARY | 2024-11-20 10:07 | XMS_ITS | Encounter Summary ---
Author Organization [employer] Address [address] [facility] 7t [place] [address] Care Team Providers Care Golf Instructor Name Role Phone Angeline Klein MD Primary Care Provider [phone] Encounter Details Date Type Department Care Team ([facility] st Contact Info) Description 09/23/2022 Telephone [facility] MEDICINE [address] [place], [place] [phone] Angeline Klein MD [address] [place] [address] Social History Tobacco Use Types Packs/Day Years [...] Orientation Straight 07/11/2022 10 :14 AM EDT COVID-19 Exposure Response Date Recorded In the last 10 days, have yo u been in contact with someone who was confirmed or suspected to have Coronavirus/COVID-19? No / Unsure 09/14/2022 9:01 AM EST documented as of this encounter Plan of Treatment Not on file documented as of this encounter Visit Diagnoses Not on filedocumented in this encounter Care Teams Golf Instructor Relationship Specialty Start Date End Date Angeline Klein MD [address] [place] [address] PCP - General Family Medicine 08/21/20 documented as of this encounter
--- OUTSIDE RECORDS SUMMARY | 2024-11-20 10:07 | XMS_ITS | Encounter Summary ---
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
--- OUTSIDE RECORDS SUMMARY | 2024-11-20 10:07 | XMS_ITS | Encounter Summary ---
Author Organization [employer] Address [address] [facility] 7t [place] [address] Care Team Providers Care Early Childhood Worker Name Role Phone Angeline Klein MD Primary Care Provider Reason for Visit * Reason Onset Date Comments Nurse Triage 03/29/2024 Encounter Details Date Type Department Care Team ([facility] st Contact Info) Description 03/29/2024 Telephone [facility] MEDICINE [address] [place] [address] Angeline Klein MD [address] [place] [address] Nurse Triage Social History Tobacco Use Types Packs/Day Years [...] encounter Miscellaneous Notes * Telephone Encounter - Clotilde Romero RN - 03/29/2024 3:15 PM EDT Triage call with [facility] Operating Room Scheduler [place] [id number] Pt reports fatigue for last 3 days. Pt reports drinking adequate liquids, advised to drink 6-8 glasses daily. Neg for fever,. Pt does report some SOB with ambulation and reports stays in bed more these last few days. Pt continues to take BP medication and reports BP was 73/52 this AM and 80/72 lastevening. Pt reports BP machine doesn't work well but, those are normal numbers for Pt. Pt is advised to be careful to get up slowly and prevent falls. ASK apt with Dr. Michael Au 04/03/24 @ 1000am. Insurance is verified as active prior to booking. Protocol Used: Weakness (Generalized) and Fatigue (Adult) Protocol-Based Disposition: See in Office or Video Visit within 3 Days Video visit not offered Positive Triage Question: * Fatigue (i.e., tires easily, decreased energy) and persists > 1 week * All higher-acuity triage questions were negative Care Advice Discussed: * Reasons To Call Back - Unable to stand or walk - Passes out - Breathing difficulty occurs - You become worse * Drink Fluids * Rest * Telephone Encounter - Shadi Skelton - 03/29/2024 2:43 PM EDT Symptom: Lethargic (Tired) Outcome: Schedule an appointment to be seen within 3 days Reason: Caller denied all higher acuity questions German Speaker (Accepted Operating Room Scheduler) documented in this encounter Plan of Treatment Not on file documented as of this encounter Visit Diagnoses Not on filedocumented in this encounter Additional Health Concerns Assessment Noted Time PHQ-9 Depression Total Score: 4 12/26/19 24 10:32 AM EDT documented as of this encounter Care Teams Early Childhood Worker Relationship Specialty Start Date End Date Angeline Klein MD [address] [place] [address] PCP - General Family Medicine 08/21/20 documented as of this encounter
--- OUTSIDE RECORDS SUMMARY | 2024-11-20 10:07 | XMS_ITS | Encounter Summary ---
Author Organization [employer] Address [address] [facility] [address] [place] [address] Care Team Providers Care Case Monitor Name Role Phone Angeline Klein MD Primary Care Provider [phone] Reason for Visit * Reason Onset Date Comments Appointment Request 05/22/2023 Encounter Details Date Type Department Care Team ([facility] st Contact Info) Description 05/22/2023 Telephone [facility] MEDICINE [address] [place] [address] Angeline Klein MD [address] [place] [address] Appointment Request Social History Tobacco Use Types Packs/Day Years [...] encounter Miscellaneous Notes * Telephone Encounter - Vinayak Baldwin - 05/22/2023 9:49 AM EDT Tc from pt requesting to r/s appt with provider on 05/22/2023 for Follow up @ 2:30 pm. Please contact pt at [phone] documented in this encounter Plan of Treatment Not on file documented as of this encounter Visit Diagnoses Not on filedocumented in this encounter Care Teams Case Monitor Relationship Specialty Start Date End Date Angeline Klein MD [address] [place] [id number] PCP - General Family Medicine 08/21/20 documented as of this encounter
--- OUTSIDE RECORDS SUMMARY | 2024-11-20 10:07 | XMS_ITS | Clinical Summary ---
Author Organization [facility] Address [address] [address] Care Team Providers Care Migration Specialist Name Role Phone Unavailable Primary Care Provider [...]
--- OUTSIDE RECORDS SUMMARY | 2024-11-20 10:07 | XMS_ITS | Clinical Summary ---
Author Organization [employer] Address [address] [facility] [address] [place] [address] Care Team Providers Care Quick Print Operator Name Role Phone Angeline Klein MD Primary Care Provider [phone] Allergies Active Allergy Reactions Criticality Noted Date Comments Aspirin 11/07/2013 Dupilumab Other 07/25/2024 Ibuprofen 01/20/2015 Other reaction(s): Itching Methazolamide 07/11/2017 Other reaction(s): Stomach Pain Morphine 10/24/2014 Naproxen Nausea Only 12/24/2019 Nsaids 07/27/2022 Oxycodone Dizziness 07/11/2017 Other reaction(s): Other (see comments) Medications lidocaine (Xylocaine) 5 % ointment Apply topically if needed each day. 1-3 times every day to affected areas 06/04/20 21 Active linaCLOtide (Linzess) 145 MCG capsule Take 1 capsule by mouth before breakfast. Every day on an empty stomach at least 30 minutes before 1st meal of the day 05/13/20 22 Active omeprazole OTC (PriLOSEC OTC) 20 MG EC tablet Take 1 tablet by mouth 1 (one) time each day. 03/01/20 21 Active Spacer/Aero-Holdin g Chambers (AeroChamber MV) inhaler by Other route. Use as instructed Active Flovent HFA 110 MCG/ACT inhaler Inhale 1 puff 2 times daily. 09/06/20 22 Active hydrocortisone (Anusol-HC) 2.5 % rectal cream APPLY RECTALLY TO THE AFFECTED AREA 2 TO 4 TIMES A DAY FOR HEMORRHOIDS 09/06/20 22 Active ondansetron ODT (Zofran-ODT) 8 MG disintegrating tablet DISSOLVE 1 TABLET ON THE TONGUE EVERY 8 HOURS NEEDED FOR NAUSEA 03/16/20 23 Active fesoterodine ER (Toviaz) 8 MG 24 hr tablet Take 8 mg by mouth in the morning. 05/30/20 23 Active omeprazole (PriLOSEC) [address] capsule Take 40 mg by mouth in the morning. 07/11/20 23 Active phenazopyridine (Pyridium) 100 MG tablet TAKE 1 TABLET BY MOUTH THREE TIMES DAILY FOR 5 DAYS FOR BLADDER PAIN 05/17/20 23 Active albuterol (2.5 MG/3ML) 0.083% nebulizer solution Use 3cc q6h prn sob 75 mL 1 11/02/19 24 Active azithromycin (Zithromax) 250 MG tablet TAKE 2 TABLETS BY MOUTH ON THE FIRST DAY THEN 1 TABLET FOR 4 ADDITIONAL DAYS 12/20/19 24 Active dexAMETHasone (Decadron) 4 MG tablet TAKE 1 TABLET BY MOUTH TWICE DAILY ON DAY 2 AND 3 OF CHEMOTHERAPY EVERY 3 WEEKS 04/04/20 24 Active OxyCONTIN 10 MG 12 hr tablet Take 10 mg by mouth 2 times daily. 03/19/20 24 Active Combivent Respimat 20-100 MCG/ACT inhaler INHALE 1 PUFF BY MOUTH FOUR TIMES DAILY. MAY TAKE ADDITIONAL PUFFS NEEDED. NOT TO EXCEED 6 PUFFS IN 24 HOURS 4 g 5 07/17/20 24 Active lisinopril 10 MG tabletIndications: Hypertension, unspecified type TAKE 1 AND 1/2 TABLETS BY MOUTH EVERY DAY 135 tablet 3 07/22/20 24 Active hydrOXYzine HCl (Atarax) 25 MG tablet Take 25 mg by mouth 3 times daily. 06/03/20 24 Active traMADol (Ultram) 50 MG tablet TAKE 1 TABLET BY MOUTH EVERY 12 HOURS NEEDED FOR BREAKTHROUGH PAIN 05/22/20 24 Active guaiFENesin (Mucinex) 600 MG 12 hr tablet Take 1 tablet (600 mg) by mouth 2 times daily. Do not crush, chew, or split. 60 tablet 07/25/20 24 025 Active Multiple Vitamin (multivitamin) tablet Take 1 tablet by mouth Once per day. 90 tablet 3 07/25/20 24 Active pravastatin (Pravachol) 40 MG tablet TAKE 1 TABLET(40 MG) BY MOUTH AT BEDTIME 90 tablet 3 08/16/20 24 Active Active Problems Problem Noted Date Diagnosed Date Vaginal bleeding 07/25/2024 Assessment & Plan (07/25/2024 10:02 PM EST): Noticed after chemo 07/24/24 Will discuss with pt's oncologist whether any workup is warranted, or side effect of current chemo regimen Hospital discharge follow-up 04/03/2024 Assessment & Plan (04/03/2024 8:01 PM EDT): Pt reports epigastric pressure sensation constant since discharge. Ongoing chronic Nausea and vomit but seems more frequent recently. Afebrile Here from exam lung, CV and abd exam are benign -CT abdomen pelvis wo IV con : Moderate to severe bilateral hydroureteronephrosis with soft tissue thickening at the ureteropelvic junctions and on the right at the bladder insertion. Numerous prominent retroperitoneal lymph nodes.Diffuse irregular bladder wall thickening extending to the bladder base. 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 -EKG today in office NSR, HR 100 . Qtc 444, no ischemic findings Will need to r/o electrolyte abnormalities and worsening renal function ,if that is the case would rec to repeat image to reeval her kidneys for worsening obstruction. Will hold for now with apparent well urine drainage from bags. -today ordered CBC,chem,TSH,mag,iron panel and vit B12/folic acid --if worsening renal function would need to repeat abd image w Renal/Bladder US -CXR order today -pt had apt w her Hem/onc tomorrow -I called today her urologist -Dr Blair but was not able to reach staff at this time -I left a voice mail with information of patient to help pt to schedule f up apt ,also pt will call to schedule apt w her urologist. -advised pt to bring all her meds to her next apt w PCP to clarify meds that she is taking --has apt w PCP for 04/22/2024 -advised hydration and to eat in small amounts -continue PPI and zofran prn -advised to stop lisinopril for now and to check home BP readings and bring at next apt , if elevated BP may consider low dose amlodipine -needs VNA --request today to entry level staff accountant to start process for this. -pt on ensure BID -advised to drink TID if possible -alarm signs and symptoms discussed w pt in case needs to go to ED Mixed stress and urge urinary incontinence 03/19 Overview (03/19/2024): Related to history of recurrent bladder cancer Protein-calorie malnutrition, unspecified severi ty 05/01/2023 Assessment & Plan (07/25/2024 10:00 PM EST): She is drinking Ensure daily, consider drinking two cans Eat high fat/high protein meals Assessment & Plan (05/01/2023 4:24 PM EDT): Due to cancer Awaiting protein shakes from [facility] Stage 2 chronic kidney disease 02/08/2023 Assessment & Plan (05/01/2023 4:23 PM EDT): Avoid NSAIDs encourage hydration Unspecified hypertensive kid tono disease with chronic kidney disease stage I through stage IV, or unspecified 02/08/2023 Impaired mobility 01/11/2023 Pain in left leg 12/22/2022 Overview (04/05/2023): Last Assessment & Plan: as above. Start [...] to continue Ensure due to weight loss. Assessment & Plan (12/22/2022 9:34 AM EDT): as above. Start gabapentin 100 mg BID [...] to continue Ensure due to weight loss. Weight loss 12/22/2022 Assessment & Plan (12/22/2022 1:40 PM EDT): PT reports significant weight loss over this year. I will prescribe Ensure for supplement as pt has underlying malignancy and mulitple other conditions, seems to be still losing weight. Slow transit constipation 09/14/2022 Assessment & Plan (12/26/2023 11:20 AM EDT): Lactulose in the morning x 3-5 until soft BM is produced Mineral oil enema as well To walk in center/ER if this fails to produce BM Assessment & Plan (09/14/2022 1:31 PM EST): Continue linzess daily and take miralax prn constipation >1d. Encouraged increased water intake Acute pyelonephritis 09/14/2022 Assessment & Plan (09/14/2022 1:36 PM EST): Sp Urosepsis, resolved. Clinically doing better sp abs. 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 Blair Assessment & Plan (12/26/2023 11:21 AM EDT): Continue followup with oncology and urology at [facility] [place] Disease is spreading, will discuss therapeutic options with Dr Palacios tomorrow Assessment & Plan (05/01/2023 4:22 PM EDT): Continue followup with oncology and urology at [facility] No signs of infection or complication currently Assessment & Plan (10/09/2022 5:57 AM EST): reoccurance detected 08/2022 Admitted to hospital for urosepsis and outlet obstruction Currently with catheter in place Follow with oncology to determine treatment modalities offered and what she is willing to try Complaining of dysuria today with grossly positive urine Macrobid ordered, follow urine culture Assessment & Plan (09/14/2022 1:40 PM EST): Since 2019, had adjuvant BCG with neg cystoscopy until 06/2022. Sp TURBT on 08/23/22, unable to completely debulk tumor FU with Oncology on 09/22 and urology next month. Continue lazo catheter for now to prevent further obstruction. Patient should be looking to live in a lower floor apartment where she doesn't have to negotiate stairs as her condition may deteriorate in the near future. Asthenia 02/15/2018 Mass of urinary bladder 02/09/2018 Hyperparathyroidism due to renal insufficiency 1 09/30/2012 History of cholecystectomy 07/23/2013 Osteopenia 01/21/2013 Irritable bowel syndrome 10/02/2012 Overview (04/05/2023): Last Assessment & Plan: Continue linzess daily and take miralax prn constipation >1d. Encouraged increased water intake Subclavian artery stenosis 10/02/2012 Assessment & Plan (05/01/2023 4:22 PM EDT): ? Possibly worsening shoulder pain Osteoarthritis of hip 06/29/2012 Assessment & Plan (07/25/2023 2:05 PM EST): Called and scheduled MRI with patient, Dec 2 at [facility] [place], so that she can proceed with treatment from pain mgmt clinic Diclofenac gel ordered for her hands and other small joints affected by OA Assessment & Plan (12/22/2022 9:35 AM EDT): More likely culprit of the symptoms, r/o piriformis syndrome Assessment & Plan (01/11/2023 12:43 PM EDT): Declines orthopedic interventions, is interested in what pain management would recommend or offer her, referral placed She is ambulating with difficulty due to pain, will place DME order for rollator walker with seat to aid in safe ambulation 1. Does the patient have a mobility limitation that significantly impairs their ability to participate in any or all mobility related activities of daily living (MRADLs) such as toileting, feeding, dressing, grooming and bathing in customary locations in the home? Yes 2. Can the patient's mobility limitation be sufficiently resolved with the use of a cane or crutch? No 3. Will the functional mobility deficit be sufficiently resolved with the use of a walker? Yes 4. Is the patient able to safely use the walker? Yes 5. If a walker with wheels is needed, does the patient have upper body weakness which prevents them from picking up the walker? No If a walker with wheels is needed, does the patient have limited use of one hand, neurological disorders or severe obesity? No Chronic low back pain 05/22/2012 Gastroesophageal reflux disease 05/22/2012 Hyperlipidemia 05/22/2012 Spondylosis 05/22/2012 Chronic obstructive pulmonary disease 02/20/2012 Assessment & Plan (12/26/2023 11:20 AM EDT): Continue inhahlers Poor functional status due to lung dz and malignancy Assessment & Plan (10/09/2022 5:56 AM EST): Continue inhahlers Poor functional status due to lung dz and malignancy Essential hypertension 02/20/2012 Overview (04/05/2023): Last Assessment & Plan: At goal <130/80 Continue current regimen Last Assessment & Plan: Controlled. Compliant w/meds Continue lisinopril Counseled re low salt diet/increase moderate physical activity. Check home BP BIW and prn CP/JONES/LAWLER Non smoking patient. Assessment & Plan (10/09/2022 5:56 AM EST): At goal <130/80 Continue current regimen Hypertension 02/20/2012 Assessment & Plan (12/26/2023 11:20 AM EDT): At goal <130/80 Continue current regimen of Lisinopril 10mg daily Assessment & Plan (05/01/2023 4:23 PM EDT): At goal <130/80 Continue current regimen of Lisinopril 10mg daily Assessment & Plan (09/14/2022 1:27 PM EST): Controlled. Compliant w/meds Continue lisinopril Counseled re low salt diet/increase moderate physical activity. Check home BP BIW and prn CP/JONES/LAWLER Non smoking patient. Resolved Problems Problem Noted Date Diagnosed Date Resolved Date Sore throat 01/09/2024 07/25/2024 Assessment & Plan (01/09/2024 1:28 PM EDT): Patient with severe sore throat x 3 days, unable to eat or drink, has not been able to take any of her medications as a result. Patient reports sever odynophagia and dysphagia. Neg Covid, Neg Strep, Neg flu Etiology ? Likely esophageal candidiasis. But given that on exam she has evidence of dehydration already, poor skin turgor HR 120's. I have recommended she presents to the ER for IVF. She will likely need an overnight admission and EGD by GI as well as antifungal medication, but this will take time to act. Pt and pt's agreeable with plan. Case has been discussed with ER at [facility] [place]>. Encounters Date Type Department Care Team Description 10/27/2024 Orders Only [facility] External Provider, [facility] 09/24/2024 Orders Only [facility] External Provider, [facility] from Last 3 Months Immunizations Name Administration Dates Next Due Influenza High-dose Quadrivalent Preservative Fr ee 06/20/2022 Influenza injectable quadriv alent IIV4 with preservative 06/09/2016 Influenza injectable quadrivalent preservative f ree 06/19/2015 Influenza, High Dose Seasonal, Preservative Free 06/21/2018,06/20/2017 Influenza, IIV3, injectable 06/19/2014, 1 Influenza, Split (incl. purified surface antigen ) 05/31/2013,05/22/2012 Influenza, Unspecified 06/19/2014,06/07/2011 Corrine SARS-CoV-2 Vaccination 12/02/2020 Pneumococcal Polysaccharide PPSV23 12/14/2021, RSV Adjuvant 08/27/2023 TD (adult), 2 Lf tetanus tox oid, preservative free, adsorbed 01/05/2011 Tdap 10/02/2012 Zoster, live 10/24/2014 Social History Tobacco Use Types Packs/Day Years Used Date Smoking Tobacco: Never Passive Smoke Exposure: Never Smokeless Tobacco: Never Tobacco Cessation:Counseling Given: Not Answered Alcohol Use Standard Drinks/Week Comments Never 0 [...] Orientation Straight 07/11/2022 10 :14 AM EDT Last Filed Vital Signs Vital Sign Reading Time Taken Comments Blood Pressure 94/58 04/03/2024 10:16 AM EDT Pulse 97 04/03/2024 10:16 AM EDT Temperature 36.2 ??C (97.2 ??F) 04/03/2024 10:16 AM E DT Respiratory Rate 18 04/03/2024 10:16 AM EDT Oxygen Saturation 94% 04/03/2024 10:16 AM EDT Inhaled Oxygen Concentration - - Weight 44.1 kg (97 lb 3.2 oz) 04/03/2024 10:16 A M EDT Height 162.6 cm (5' 4 ) 03/04/2024 2:16 PM EDT Body Mass Index 16.68 03/04/2024 2:16 PM EDT Plan of Treatment Health Maintenance Due Date Last Done Comments Alcohol/Substance Use Screening 1957 Zoster Vaccines (2 of 3) 12/19/2014 10/24/2014 DTaP/Tdap/Td Vaccines (2 - Td or Tdap) 10/02/2022 10/02/2012, 01/05/2011 Pneumococcal Vaccine: 50+ Years (2 of 2 - PCV) 12/14/2022 12/14/2021, 06/19/2014 COVID-19 Vaccine (2 - season) 2024 12/02/2020 Influenza Vaccine (#1) 2024 , 06/21/2018, 06/20/2017, Additional history exists SDOH Screening 11/16/2024 11/17/2023 Depression Screening 12/25/2024 12/26/2023, 12/26/19 24 Tobacco Screening 07/25/2025 07/25/2024 Lipid Panel 01/22/2026 01/22/2021, 11/30/2020 Hepatitis C Screening Completed 08/22/2019 RSV Patients and Patients Aged 60 years or older Completed 08/27/2023 HIB Vaccines Aged Out No longer eligi ble based on patient's age to complete this topic HPV Vaccines Aged Out No longer eligi ble based on patient's age to complete this topic Hepatitis A Vaccines Aged Out No long er eligible based on patient's age to complete this topic Hepatitis B Vaccines Aged Out No long er eligible based on patient's age to complete this topic IPV Vaccines Aged Out No longer eligi ble based on patient's age to complete this topic Meningococcal Vaccine Aged Out No irland[place] kristal eligible based on patient's age to complete this topic RSV under 20 months Aged Out No longe r eligible based on patient's age to complete this topic Rotavirus Vaccines Aged Out No longer eligible based on patient's age to complete this topic Procedures Procedure Name Priority Date/Time Associated Diagnosis Comments MR PELVIS W AND WO CONTRAST Routine 10/27/2024 3:14 PM EST IR NEPHROSTOMY TUBE CHANGE Routine 09/24/2024 1:12 PM EST LIPID PANEL, STANDARD Routine 01/22/2021 9:15 AM EDT EmilyZZ HISTORICAL HEPATITIS A,B,C PROFILE Routine 08/22/2019 1:30 PM EST from Last 3 Months or Most Recently Relevant to Health Maintenance Results * MR Pelvis w/ and w/o Contrast (10/27/2024 3:14 PM EST) Anatomical Region Laterality Modality Body, Pelvis Magnetic Resonan ce 10/27/2024 3:14 PM EST Narrative 10/27/2024 3:15 PM EST ? [facility] ?[address] ?[place] [address] ? Magnetic Resonance Report ? Signed ? Patient: Alba,Altaf ?MR#: [id number] ?? 260 ? : 1945 ?Acct:[id number] ? Age/Sex: 79 / F ?ADM Date: 02/16/25 ? Loc: HO.MRI ? Attending Dr: Destiney Palacios MD ? Ordering Physician: Destiney Palacios MD ?? Date of Service: 10/27/24 ?? Procedure(s): MR pelvis wo/w con ?? Accession Number(s): [id number] ? cc: Destiney Palacios MD; Angeline Klein [...] signed by Scar Correa MD in OV> ?10/27/245 ? DD/ 13 ? TD/TT: 10/27/244 ? Director Clinical Information Services: ? Procedure Note Donotuseinterpreter, Image - 10/27/[address] [address] Magnetic Resonance Report Signed Patient: Altaf AlbaMR#: [id number] 260 : 6Acct:[id number] Age/Sex: 79 / FADM Date: 10/27/24 Loc: HO.MRI Attending Dr: Destiney Palacios MD Ordering Physician: Destiney Palacios MD Date of Service: 10/27/24 Procedure(s): MR pelvis wo/w con Accession Number(s): [id number] cc: Destiney Palacios MD; Angeline Klein CLINICAL [...] 10/27/24 1515 DD/ 1514 TD/TT: 10/27/24 1514 Director Clinical Information Services: [facility] External Provider IMG MRI PROCEDURES Edited Result - Final * IR Nephrostomy Tube Change (09/24/2024 1:12 PM EST) Anatomical Region Laterality Modality Body X-Ray Angiograph y 09/24/2024 1:12 PM EST Narrative 09/25/2024 5:28 PM EST ? [facility] ?[address] ?[place] [address] ?Interventional Radiology Rpt ? Signed ? Patient: Altaf Alba ?MR#: [id number] ?? 260 ? : 1945 ?Acct:[id number] ? Age/Sex: 79 / F ?ADM Date: 09/24/24 ? Loc: HO.SSS ? Attending Dr: Severo Blair MD ? Ordering Physician: Severo Blair MD ?? Date of Service: 09/24/24 ?? Procedure(s): IR nephrostomy tube change ?? Accession Number(s): [id number] ? cc: Severo Blair MD; Angeline Klein ? FLUOROSCOPIC BILATERAL NEPHROSTOMY TUBE EXCHANGE ? History: Patient with bilateral nephrostomy tubes due to bilateral ?? ureteral obstruction. Patient presents for three-month maintenance ?? change. ? Procedure: Patient was informed and consented to the procedure. The ?? patient's right back was prepped and draped in routine sterile fashion. ?? 1% buffered lidocaine was used as anesthetic around the insertion site. ?? The catheter was cut and an Amplatz wire was placed through the tube ?? and coiled into the renal pelvis. The old catheter was removed and over ?? the wire. A new 8 Congolese locking pigtail catheter was advanced over the ?? wire. The wire was removed. 5 mL of contrast was injected to ensure ?? proper positioning of the catheter in the renal pelvis. A 3-0 Ethilon ?? suture was used to secure the catheter to the skin. A sterile dressing ?? was applied. ? Next,the patient's left back was prepped and draped in routine sterile ?? fashion. 1% buffered lidocaine was used as anesthetic around the ?? insertion site. The catheter was cut and an Amplatz wire was placed ?? through the tube and coiled into the renal pelvis.The old catheter was ?? removed and over the wire. A new 8 Congolese locking pigtail catheter was ?? advanced over the wire. The wire was removed. 5 mL of contrast was ?? injected to ensure proper positioning of the catheter in the renal ?? pelvis. A 3-0 Ethilon suture was used to secure the catheter to the ?? skin. A sterile dressing was applied. ? Summary: Successful bilateral nephrostomy exchange with fluoroscopic ?? guidance. ? Electronically signed by: ??Molina Chavarria MD ??09/25/2024 05:25 PM EST RP ? Dictated By: ?Molina Chavarria MD ? Signed By: ?<Electronically signed by Molina Chavarria MD in OV> ? 09/25/24 1725 ? DD/ 1312 ? TD/TT: 09/24/24 1413 ? Director Clinical Information Services: ? Procedure Note Bayron, Image - 09/25/2024 [place] [address] Interventional Radiology Rpt Signed Patient: Altaf Alba#: [id number] 260 : 6Acct:[id number] Age/Sex: 79 / FADM Date: 09/24/24 Loc: HO.SSS Attending Dr: Severo Blair MD Ordering Physician: Severo Blair MD Date of Service: 09/24/24 Procedure(s): IR nephrostomy tube change Accession Number(s): [id number] cc: Severo Blair MD; Angeline Klein FLUOROSCOPIC BILATERAL NEPHROSTOMY TUBE EXCHANGE History: Patient with bilateral nephrostomy tubes due to bilateral ureteral obstruction. Patient presents for three-month maintenance change. Procedure: Patient was informed and consented to the procedure. The patient's right back was prepped and draped in routine sterile fashion. 1% buffered lidocaine was used as anesthetic around the insertion site. The catheter was cut and an Amplatz wire was placed through the tube and coiled into the renal pelvis. The old catheter was removed and over the wire. A new 8 Congolese locking pigtail catheter was advanced over the wire. The wire was removed. 5 mL of contrast was injected to ensure proper positioning of the catheter in the renal pelvis. A 3-0 Ethilon suture was used to secure the catheter to the skin. A sterile dressing was applied. Next,the patient's left back was prepped and draped in routine sterile fashion. 1% buffered lidocaine was used as anesthetic around the insertion site. The catheter was cut and an Amplatz wire was placed through the tube and coiled into the renal pelvis.The old catheter was removed and over the wire. A new 8 Congolese locking pigtail catheter was advanced over the wire. The wire was removed. 5 mL of contrast was injected to ensure proper positioning of the catheter in the renal pelvis. A 3-0 Ethilon suture was used to secure the catheter to the skin. A sterile dressing was applied. Summary: Successful bilateral nephrostomy exchange with fluoroscopic guidance. Electronically signed by: Molina Chavarria MD 09/25/2024 05:25 PM [facility] Dictated By: Molina Chavarria MD Signed By: <Electronically signed by Molina Chavarria MD in OV> 09/25/24 1725 DD/ 1312 TD/TT: 09/24/24 1413 Director Clinical Information Services: [facility] External Provider IMG IR PROCEDURES Final Result * LIPID PANEL, STANDARD (01/22/2021 9:15 AM EDT) Chol/HDLC Ratio 2.8 <5.0 (calc) [facility] Cholesterol, Total 179 <200 mg/dL [facility] HDL Cholesterol 63 > OR = 50 mg/dL [facility] LDL Cholesterol 95 mg/dL (calc) [facility] Comment: Reference range: <100 ?? Desirable range <100 mg/dL for primary prevention; ?? <70 mg/dL for patients with CHD or diabetic patients ?? with > or = 2 CHD risk factors. ?? LDL-C is now calculated using the Nano ?? calculation, which is a validated novel method providing ?? better accuracy than the Friedewald equation in the ?? estimation of LDL-C. ?? Timoteo SAMPSON et al. SHARYN. 2013;310(19): 5017-7496 ?? (http://[employer]/faq/CLS296) Non-HDL Cholesterol 116 <130 mg/dL (calc) [facility] Comment: For patients with diabetes plus 1 major ASCVD risk ?? factor, treating to a non-HDL-C goal of <100 mg/dL ?? (LDL-C of <70 mg/dL) is considered a therapeutic ?? option. Triglycerides 116 <150 mg/dL [facility] 01/22/2021 9:15 AM EDT Angeline Klein MD LAB BLOOD ORDERABLES Final Res ult Performing Organization Address [facility] de Phone Number [facility] [address] * HEPATITIS A,B,C PROFILE (08/22/2019 1:30 PM EST) HEPATITIS B CORE ANTIBODY NONREACTIVE NONREACTIVE [facility] HEPATITIS B INTERPRETATION SEE NOTE [facility] Comment:Negative for Hepatit is B. HEPATITIS B SURFACE ANTIBODY NONREACTIVE [facility] Comment:NONREACTIVE: < 8.00 mIU/mL HEPATITIS B SURFACE ANTIGEN NEGATIVE NEGATIVE [facility] HEPATITIS C ANTIBODY NONREACTIVE [facility]IVE [facility] Comment: Antibodies to HCV not detected; does not exclude early acute HCV infection. 08/22/2019 1:30 PM EST us Historical Provider HISTORICAL/NON ORDERABLE LABS Final Result Performing Organization Address [facility] de Phone Number [facility] [address] from Last 3 Months or Most Recently Relevant to Health Maintenance Insurance [facility] Care Teams Quick Print Operator Relationship Specialty Start Date End Date Angeline Klein MD [address] [place] [id number] PCP - General Family Medicine 08/21/20
== END 2024-11-20 09:21 | disposition home or self-care (01) ==
LOC: HO.CT 09:20
PROVIDERS: PCP General Practice; Visit Provider Internal Medicine
DX: C67.9 Malignant neoplasm of bladder, unspecified (principal); J45.50 Severe persistent asthma, uncomplicated
CPT/HCPCS: 71046; 74177; Q9967

== ENCOUNTER → 2024-11-20 09:21 | Outpatient (BNV) | payer OTHER, SELFPAY | PROVIDERS: PCP General Practice; Visit Provider Radiology Diagnostic Radiology | DX: R59.0 Localized enlarged lymph nodes (principal); J45.50 Severe persistent asthma, uncomplicated | CPT/HCPCS: 71046; 74177 ==

== ENCOUNTER 2024-12-03 14:05 | Outpatient (AMB) | payer OTHER, SELFPAY ==
--- NOTE | 2024-12-03 14:05 | A.OFFVIS_ITS ---
Intake Visit Reasons: H&P Nephrostomy Tube Exchange Intake Note: Patient is present for H&P NEPHROSTOMY TUBE EXCHANGE Urology Medication:NONE Antibiotic Allergy:SULFA,BACTRIM Blood Thinner:NONE Photoengraving Machine Operator/Tender Required: No Allergies shrimp Allergy (Severe, Verified 12/03/24 14:07) Hives aspirin [ASA] Allergy (Intermediate, Verified 12/03/24 14:07) RASH ibuprofen [Ibuprofen] Allergy (Intermediate, Verified 12/03/24 14:07) RASH morphine [MORPHINE] Allergy (Intermediate, Verified 12/03/24 14:07) ITCHING naproxen [From NAPROSYN] Allergy (Intermediate, Verified 12/03/24 14:07) RASH,N/V oxycodone [OXYCODONE] Allergy (Intermediate, Verified 12/03/24 14:07) NAUSEA & VOMITING, RASH sulfamethoxazole [From Bactrim] Adverse Reaction (Severe, Verified 12/03/24 14:07) Abdominal Pain trimethoprim [From Bactrim] Adverse Reaction (Severe, Verified 12/03/24 14:07) Abdominal Pain HPI Comments Details: Altaf is a pleasant female. She is a patient of . She seen for the following urologic conditions - recurrent high-grade bladder cancer invasive Telemedicine Evaluation 15 min Consultation [employer] Video attempted Sri [place]ankan translation provided by qualified medical social worker 12/03 PCN Charge Difficulty sleeping Will take out PCN on right side Will change left side 09/03 biopsy - no cancer seen Needs PCN exchange Requesting a different interventional provider from last time - had pain with procedure, not the same as previously 02/01 stent internalization Bladder TURP with fulguration - high-grade T1 Removal of catheter Recommend induction 6 weeks mitomycin-C with cytarabine Stents to remain 01/02 Worsening hydronephrosis Creatinine ratio elevate Bilateral PCN placed followed by stent internalization in operating room Labs Cr 06/[address] right hydro, left mild hydro Completed neoadjuvant chemotherapy Right PCN placed after presentation for NADEEN - creatinine resolving from 2.9 down to 0.94 - 03/[address] scan with resolution of bladder thickening, right hydronephrosis. 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 The bladder is partially distended with irregular wall thickening and trabeculated appearance. Dilated appearance of both distal ureters. Moderate right hydronephrosis. Mild left hydronephrosis. No lymphadenopathy. Bladder cancer superficial high-grade 2019 - disease progression - 12/01 muscle invasive bladder cancer Initial diagnosis with Dr. Hankins TURBT 05/30 high-grade superficial noninvasive disease Adjuvant therapy BCG June 2019 Surveillance cystoscopy - 04/30 NAD, 10/01 NAD, 10/02 NAD - trabeculated bladder with BCG change PFSH Medical History COPD (chronic obstructive pulmonary disease) Port-A-Cath in place Back pain Spinal stenosis Chronic pain syndrome Osteoarthritis GERD (gastroesophageal reflux disease) Emphysema lung Hyperlipidemia Hypertension Asthma Hemorrhoids with complication UTI (urinary tract infection) Malignant neoplasm of urinary bladder Surgical History History of surgery History of ERCP Hx laparoscopic cholecystectomy Hx of cystoscopy History of hysterectomy with bilateral oophorectomy Hx of colonoscopy (01/17/19) History of esophagogastroduodenoscopy (EGD) Family History Father No problems noted. Mother Diabetes Brother Lung cancer Daughter Diabetes Social History (Updated 08/15/24 @ 09:39 by Cee Ragsdale RN) Household Members: Spouse Housing: Apartment Are you a primary career services coordinator to a significant other at home: No Do you presently have visiting nurse or other home services: No Alcohol intake: never Patient Tobacco Use Status: Former Tobacco user Tobacco use type: Cigarette Years Smoked: 56 service: No Current occupational status: retired Current occupation: rt handed Review of Systems Const All systems reviewed & are unremarkable except as noted in HPI and below Reports no additional complaints Resp Reports no additional complaints GI Reports no additional complaints Reports as per HPI Musc Reports no additional complaints Physical Exam Telemedicine evaluation Appropriate responses Regular breathing rate and rhythm HEENT Head: Yes normal to inspection Ears: hearing grossly normal bilaterally Eyes General: appearance normal, both eyes and all related structures Neck Neck: Yes normal visual inspection Chest Chest palpation & inspection: normal inspection of the chest Resp Effort & Inspection: normal respiratory effort and able to speak in complete sentences Telehealth Telehealth Location of provider rendering services: practice address Location of patient: address on file Patient Identification confirmed using: Name, : Yes Telehealth method: voice only Patient verbally consented to treatment: Yes Patient verbally consented to billing insurance company: Yes Patient informed of any privacy concerns related to visit: Yes Assessment & Plan Assessment & Plan (1) Malignant neoplasm of urinary bladder: Comment: multiple TURBT's Code(s): C67.9 - Malignant neoplasm of bladder, unspecified Category: Medical Qualifiers: Bladder location: unspecified site Qualified Code(s): C67.9 - Malignant neoplasm of bladder, unspecified (2) Bladder cancer: Comment: Progressive high-grade urothelial carcinoma 12/01 muscle invasive with squamous differentiation Code(s): C67.9 - Malignant neoplasm of bladder, unspecified Category: Medical Qualifiers: Bladder location: overlapping sites Qualified Code(s): C67.8 - Malignant neoplasm of overlapping sites of bladder Plan Risks, benefits and alternatives to therapy were discussed. These include but are not limited to infection, bleeding, damage to local organs and tissues, need for further interventions. Anesthetic risks regarding cardiac arrhythmia, blood clots, and potential mortality were discussed. The patient understands the typical recovery time and the outpatient nature of the procedure. After consideration of these risks the patient gives full informed consent and they wish to move ahead with the procedure. - remove right-sided PCN, change left-sided Orders: Orders IR nephrostomy tube change 3 Weeks N13.30 - Unspecified hydronephrosis Patient Instructions: This note is constructed using voice recognition software. While every effort has been made to ensure accuracy streetcar conductor errors may have been included. Imaging studies, laboratory and physical exam results were discussed and reviewed in detail. No major barriers to patient understanding were identified. An opportunity to ask questions regarding the treatment plan was provided. All questions were answered. The patient expressed understanding and agreement with the above treatment plan. The patient is aware they should contact our office by phone for worsening of their current condition or the appearance of new urologic symptoms. Compliance is encouraged with any medications and followup testing that is ordered. It is a privilege to participate in the urologic care of your patient. If you have any questions or concerns regarding treatment for the above conditions, or other urologic issues, please do not hesitate to contact me. The office telephone contact is [phone]. Sincerely, Dr Severo Blair MD, [facility] - Urology Compassionate Specialist Care for the Genitourinary System Coding Level of Care Code Tele Est Pt Level 4 (11262) Complex EM visit Add On G2211 Diagnoses Malignant neoplasm of urinary bladder, unspecified site C67.9 Bladder location: unspecified site
--- OUTSIDE RECORDS SUMMARY | 2024-12-03 17:36 | XMS_ITS | Encounter Summary ---
Author Organization [facility] Address [address] [place] [address] Care Team Providers Care Cloth Classer Name Role Phone Angeline Klein MD Primary Care Provider [phone] Encounter Details Date Type Department Care Team (Late st Contact Info) Description 08/01/2022 Abstract [facility] [address] [place], [place] [phone] Angeline Klein MD [address] [place], [place] [phone] Social History Tobacco Use Types Packs/Day Years [...] on filedocumented in this encounter Care Teams Cloth Classer Relationship Specialty Start Date End Date Angeline Klein MD [address] [place], [place] [phone] PCP - General Family Medicine 08/21/20 documented as of this encounter
--- OUTSIDE RECORDS SUMMARY | 2024-12-03 17:36 | XMS_ITS | Encounter Summary ---
Author Organization [employer] Address [address] [facility] [address] [address] [place] [address] Care Team Providers Care Risk Control Officer Name Role Phone Angeline Klein MD Primary Care Provider [phone] Reason for Visit * Reason Onset Date Comments Appointment Request 05/22/2023 Encounter Details Date Type Department Care Team ([facility] st Contact Info) Description 05/22/2023 Telephone [facility] [address] [place] [address] Angeline Klein MD [address] [place] [address] Appointment Request Social History Tobacco Use Types [...] @ 2:30 pm. Please contact pt at [phone] documented in this encounter Plan of Treatment Not on file documented as of this encounter Visit Diagnoses Not on filedocumented in this encounter Care Teams Risk Control Officer Relationship Specialty Start Date End Date Angeline Klein MD [address] [place] [id number] PCP - General Family Medicine 08/21/20 documented as of this encounter
--- OUTSIDE RECORDS SUMMARY | 2024-12-03 17:36 | XMS_ITS | Encounter Summary ---
Author Organization [employer] Address [address] [facility] [address] [place] [address] Care Team Providers Care Stove Mechanic Name Role Phone Angeline Klein MD Primary Care Provider [phone] Encounter Details Date Type Department Care Team (Late st Contact Info) Description 04/12/2024 Orders Only [facility] [address] [place], [place] [phone] Guadalupe Garrido MD [address] [place] [address] Social History Tobacco Use Types Packs/Day Years [...] documented as of this encounter Care Teams Stove Mechanic Relationship Specialty Start Date End Date Angeline Klein MD [address] [place] [address] PCP - General Family Medicine 08/21/20 documented as of this encounter
--- OUTSIDE RECORDS SUMMARY | 2024-12-03 17:36 | XMS_ITS | Encounter Summary ---
Author Organization [facility] Address [address] [facility] 7[address] [place] [address] Care Team Providers Care Social Media Marketer Name Role Phone Angeline Klein MD Primary Care Provider [phone] Reason for Referral * Consultation (Routine) - Authorized Specialty Diagnoses / Procedures Referred By Milan riojas Referred To Contact Vascular Surgery Diagnoses Localized edema Angeline Klein MD [address] [place] [address] Phone: tel: fax: Sergio Stewart MD [address] [place] [address] Phone: tel: fax: Referral ID Status Reason Start Date Expiration Date Visits Requested Visits Authorized [id number] Authorized Specialty Services Required 12/02/2024 12/02/2025 1 1 Reason for Visit * Reason Comments Edema Encounter Details Date Type Department Care Team (Late st Contact Info) Description 11/29/2024 9:45 AM EDT Office Visit [facility] MEDICINE [address] [place] [address] Angeline Klein MD [address] [place] [address] Localized edema (Primary Dx); Dietary counseling; Exercise counseling; Underweight; Inadequate housing utilities; Protein-calorie malnutrition, unspecified severity (CMS/HCC); 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) Social History Tobacco Use Types Packs/Day Years Used Date Smoking Tobacco: Never Passive Smoke Exposure: Never Smokeless Tobacco: Never Alcohol Use Standard Drinks/Week Comments Never 0 (1 standard drink = 0.6 oz pur e alcohol) Alcohol Answer Date Recorded How often do you have a drink containing alcohol ? 1 12/02/2024 How many drinks containing a lcohol do you have on a typical day when you are drinking? 0 12/02/2024 How often do you have six or more drinks on one occasion? 0 12/02/2024 Depression Answer Date Recorded Patient Health Questionnaire-9 Score 4 12/26/2023 Patient Health Questionnaire-9 Score 4 12/26/2023 Last PHQ-9: Questionnaire Data Not on file 0 12/26/2023 Housing Stability Answer Date Recorded What is your housing situation today? I have lobo mcdaniel 11/29/[address] you li ve. Do you have problems with any of the following? None of the above 11/29/2024 Food Insecurity Answer Date Recorded Within the past 12 months, y ou worried that your food would run out before you got money to buy more: Never True 11/29/2024 Within the past 12 months,th e food you bought just didn't last and you didn't have enough money to get more: Never True Transportation Answer Date Recorded In the past 12 months, has l ack of transportation kept you from medical appts, meetings, work or from getting things needed for daily living? No 11/29/2024 Intimate Partner Violence Answer Date R ecorded Within the last year, have y ou been afraid of your partner or ex-partner? 2 12/02/2024 Within the last year, have y ou been humiliated or emotionally abused in other ways by your partner or ex-partner? 2 Within the last year, have y ou been kicked, hit, slapped, or otherwise physically hurt by your partner or ex-partner? 2 12/02/2024 Within the last year, have y ou been raped or forced to have any kind of sexual activity by your partner or ex-partner? 2 12/02/2024 Utilities Answer Date Recorded In the past 12 months, has t he electric, gas, oil or water company threatened to shut off services in your home? No 11/29/2024 Depression Answer Date Recorded Patient Health Questionnaire-2 Score 1 12/26/2023 Internet Access Answer Date Recorded Internet Access Q1 No 11/29/2024 Internet Access Q2 I do not want or need it 11/10 Comments Unknown Sex and Gender Information Value Date Recorded Sex Assigned at Female 07/11/2022 10:14 AM EDT Legal Sex Female 10:14 AM EDT Gender Identity Female 10/05/2022 1:54 PM EST Sexual Orientation Straight 07/11/2022 10 :14 AM EDT documented as of this encounter Last Filed Vital Signs Vital Sign Reading Time Taken Comments Blood Pressure 139/73 11/29/2024 9:40 AM EDT Pulse 83 11/29/2024 9:40 AM EDT Temperature 36.8 ??C (98.2 ??F) 11/29/2024 9:40 AM ED T Respiratory Rate 15 11/29/2024 9:40 AM EDT Oxygen Saturation 97% 11/29/2024 9:40 AM EDT Inhaled Oxygen Concentration - - Weight 48.5 kg (107 lb) 11/29/2024 9:40 AM EDT Height 162.6 cm (5' 4 ) 11/29/2024 9:40 AM EDT Body Mass Index 18.37 11/29/2024 9:40 AM EDT documented in this encounter Progress Notes * Angeline Klein MD - 11/29/2024 9:45 AM EDT SUBJECTIVE: Altaf Abla is a 79 y.o. year old female who presents for acute visit. Denies recent illness, ER visit, or hospitalization. Acute Concerns: Edema of lower extremities and color changes-- Vit B12, gabapentin, vascular referral for US. She does not think that this seems related to her cancer treatment, she notes she has been receiving chemotherapy for all of 2023 and this started occurring the past several months only. Interim Updates/Plans: Bladder cancer, reoccurent: Followed by Dr Palacios at [facility] CT abd/pelvis Diffuse irregular bladder wall thickening extending to the bladder base. multifocal bladder tumor with neoplastic involvement of the kidneys and ureters Onc: tx sacituzumab govitecan in the 3rd line CT shows worsening bladder cancer 12/2023 re biopsy bladder tumor 03/2024 CXR with atelectasis, IS 04/2024 ortho repeat shoulder inj 04/22/24 repeat bladder biopsy 06/2024 Dr Dyer, bladder cancer, on salvage tx enfortumab vedotin a Nectin 4 directed antibody and microtubule inhibitor conjugate on 12/27/2310/05 Dr Palacios onc f.u, continue Sacituzumab ? 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 completed systemic therapy with carboplatin and gemcitabine x 5 cycles 06/2023 repeat cystoscopy and biopsy in OR Dr Blair high-grade bladder cancer that recurred in August 2022. She underwent TURBT on 08/23/2022 which revealed papillary urothelial carcinoma, high-grade. Abundant necrosis present, muscularis propria present with no involvement by tumor. Tumor involving 75% of the entire bladder per operative note, lymphovascular invasion could not be determined because of necrotic tissue. Invasion of subepithelium or muscularis propria also could not be excluded. - normal renal function Cr 0.75 and eGFR 83 - has not been sexually active since 2018 - had four surgeries and stem cell transplant for bladder cancer in [id number] Arthritis in her hips and shoulders active and painful, but she does not want injections or surgery. Receiving Qutenza (capsacin 8%) treatments at [facility] Pain mgmt COPD 11/2024 pulm: Well controlled on Nucala, Flovent, Combivent, and albuterol MDI. Continue current regimen Well controlled HTN Lisinopril 10mg daily At goal here and at home Health maintenance: Mammo > 75 Colon > 75 Imms- due for zoster, Flu, PCV 20, COVID booster Patient Active Problem List Diagnosis Allergic eosinophilia Asthenia Chronic low back pain Chronic obstructive pulmonary disease (CMS/HCC) Gastroesophageal reflux disease History of cholecystectomy Hyperlipidemia Hyperparathyroidism due to renal insufficiency (CMS/HCC) Essential hypertension Hypertension Chronic constipation Irritable bowel syndrome Malignant tumor of urinary bladder (CMS/HCC) Mass of urinary bladder Osteopenia Osteoarthritis of hip Spondylosis Subclavian artery stenosis (CMS/HCC) Slow transit constipation Acute pyelonephritis Pain in left leg Weight loss Impaired mobility Stage 2 chronic kidney disease Unspecified hypertensive kidney disease with chronic kidney disease stage I through stage IV, or unspecified Protein-calorie malnutrition, unspecified severity (CMS/HCC) Mixed stress and urge urinary incontinence Hospital discharge follow-up Vaginal bleeding Underweight Localized edema Past Surgical History: Procedure Laterality Date IR NEPHROSTOGRAM 02/27/2024 IR NEPHROSTOGRAM IR NEPHROSTOGRAM 01/02/2024 IR NEPHROSTOGRAM IR NEPHROSTOGRAM 03/18/2024 IR NEPHROSTOGRAM IR NEPHROSTOMY TUBE CHANGE 07/08/2024 IR NEPHROSTOMY TUBE CHANGE IR NEPHROSTOMY TUBE CHANGE 09/25/2024 IR NEPHROSTOMY TUBE CHANGE No family history on file. Social History Social History Narrative Not on file Review of Systems Constitutional: Negative. Respiratory: Negative. Cardiovascular: Positive for leg swelling. Negative for chest pain and palpitations. Musculoskeletal: Positive for arthralgias and back pain. OBJECTIVE: Vitals: 11/29/24 0940 BP: 139/73 BP Location: Left arm Patient Position: Sitting BP Cuff Size: Adult Pulse: 83 Resp: 15 Temp: 98.2 ??F (36.8 ??C) TempSrc: Temporal SpO2: 97% Weight: 107 lb (48.5 kg) Height: 5' 4 (1.626 m) Physical Exam Vitals and nursing note reviewed. Constitutional: Appearance: Normal appearance. HENT: Head: Normocephalic and atraumatic. Cardiovascular: Rate and Rhythm: Normal rate and regular rhythm. Pulses: Normal pulses. Heart sounds: Normal heart sounds. Pulmonary: Effort: Pulmonary effort is normal. Breath sounds: Normal breath sounds. Musculoskeletal: Right lower leg: Edema present. Left lower leg: Edema present. Comments: Trace edema to midshin, with brown/purple discoloration of lower ankles/LE Skin: General: Skin is warm and dry. Neurological: General: No focal deficit present. Mental Status: She is alert and oriented to person, place, and time. Psychiatric: Mood and Affect: Mood normal. Behavior: Behavior normal. ASSESSMENT/PLAN Problem List Items Addressed This Visit Malignant tumor of urinary bladder (CMS/HCC) Protein-calorie malnutrition, unspecified severity (CMS/HCC) Underweight Localized edema - Primary Relevant Medications cyanocobalamin (Vitamin B-12) 1000 MCG tablet gabapentin (Neurontin) 100 MG capsule Other Relevant Orders Referral to Vascular Surgery Other Visit Diagnoses Dietary counseling Exercise counseling Inadequate housing utilities Follow Up: 2-3 months or sooner prn Allergies Allergen Reactions Aspirin Dupilumab Other Ibuprofen Other reaction(s): Itching Methazolamide Other reaction(s): Stomach Pain Morphine Naproxen Nausea Only Nsaids Oxycodone Dizziness Other reaction(s): Other (see comments) Current Outpatient Medications: albuterol 108 (90 Base) MCG/ACT inhaler, INHALE 2 PUFFS BY MOUTH EVERY 4 TO 6 HOURS NEEDED FOR SHORTNESS OF BREATH OR WHEEZING, Disp: , Rfl: cefuroxime (Ceftin) 250 MG tablet, TAKE 1 TABLET BY MOUTH TWICE DAILY FOR 9 DAYS, Disp: , Rfl: ciprofloxacin (Cipro) 250 MG tablet, Take 1 tablet by mouth 2 times daily., Disp: , Rfl: albuterol (2.5 MG/3ML) 0.083% nebulizer solution, Use 3cc q6h prn sob, Disp: 75 mL, Rfl: 1 azithromycin (Zithromax) 250 MG tablet, TAKE 2 TABLETS BY MOUTH ON THE FIRST DAY THEN 1 TABLET FOR 4 ADDITIONAL DAYS, Disp: , Rfl: Combivent Respimat 20-100 MCG/ACT inhaler, INHALE 1 PUFF BY MOUTH FOUR TIMES DAILY. MAY TAKE ADDITIONAL PUFFS NEEDED. NOT TO EXCEED 6 PUFFS IN 24 HOURS, Disp: 4 g, Rfl: 5 cyanocobalamin (Vitamin B-12) 1000 MCG tablet, Take 1 tablet (1,000 mcg) by mouth Once per day., Disp: 30 tablet, Rfl: 11 dexAMETHasone (Decadron) 4 MG tablet, TAKE 1 TABLET BY MOUTH TWICE DAILY ON DAY 2 AND 3 OF CHEMOTHERAPY EVERY 3 WEEKS, Disp: , Rfl: Flovent HFA 110 MCG/ACT inhaler, Inhale 1 puff 2 times daily., Disp: , Rfl: gabapentin (Neurontin) 100 MG capsule, Take 3 capsules (300 mg) by mouth 3 times daily., Disp: 270 capsule, Rfl: 11 hydrocortisone (Anusol-HC) 2.5 % rectal cream, APPLY RECTALLY TO THE AFFECTED AREA 2 TO 4 TIMES A DAY FOR HEMORRHOIDS, Disp: , Rfl: lidocaine (Xylocaine) 5 % ointment, Apply topically if needed each day. 1-3 times every day to affected areas, Disp: , Rfl: linaCLOtide (Linzess) 145 MCG capsule, Take 1 capsule by mouth before breakfast. Every day on an empty stomach at least 30 minutes before 1st meal of the day, Disp: , Rfl: lisinopril 10 MG tablet, TAKE 1 AND 1/2 TABLETS BY MOUTH EVERY DAY, Disp: 135 tablet, Rfl: 3 Multiple Vitamin (multivitamin) tablet, Take 1 tablet by mouth Once per day., Disp: 90 tablet, Rfl:3 nystatin (Mycostatin) 214246 UNIT/ML suspension, Take 1 mL (100,000 Units) by mouth 3 times daily.,Disp: 45 mL, Rfl: 2 omeprazole (PriLOSEC) [address] capsule, Take 40 mg by mouth in the morning., Disp: , Rfl: omeprazole OTC (PriLOSEC OTC) 20 MG EC tablet, Take 1 tablet by mouth 1 (one) time each day., Disp:, Rfl: ondansetron ODT (Zofran-ODT) 8 MG disintegrating tablet, DISSOLVE 1 TABLET ON THE TONGUE EVERY 8 HOURS NEEDED FOR NAUSEA, Disp: , Rfl: pravastatin (Pravachol) 40 MG tablet, TAKE 1 TABLET(40 MG) BY MOUTH AT BEDTIME, Disp: 90 tablet, Rfl: 3 Spacer/Aero-Holding Chambers (AeroChamber MV) inhaler, by Other route. Use as instructed, Disp: , Rfl: traMADol (Ultram) 50 MG tablet, TAKE 1 TABLET BY MOUTH EVERY 12 HOURS NEEDED FOR BREAKTHROUGH PAIN, Disp: , Rfl: white petrolatum gel, Apply topically if needed for dry skin (on the feet)., Disp: 113 g, Rfl: 1 Chinese Translation: Provided by [facility] staff member EVELYN Miller documented in this encounter Plan of Treatment Scheduled Referrals Name Type Priority Associated Diagnoses Orde r Schedule Referral to Vascular Surgery Outpatient Referral Routine Localized edema Expected: 12/02/2024 (Approximate), Expires: 12/02/2025 documented as of this encounter Visit Diagnoses Diagnosis Localized edema- Primary Edema Dietary counseling Dietary surveillance and counseling Exercise counseling Underweight Inadequate housing utilities Protein-calorie malnutrition, unspecified severity (CMS/HCC) 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) Malignant neoplasm of bladder neck documented in this encounter Additional Health Concerns Assessment Noted Time PHQ-9 Depression Total Score: 4 12/26/19 24 10:32 AM EDT documented as of this encounter Care Teams Social Media Marketer Relationship Specialty Start Date End Date Angeline Klein MD [address] [place] [address] PCP - General Family Medicine 08/21/20 documented as of this encounter
--- OUTSIDE RECORDS SUMMARY | 2024-12-03 17:36 | XMS_ITS | Encounter Summary ---
Author Organization [employer] Address [address] [facility] [address] 7[address] [place] [address] Care Team Providers Care Melt House Centrifugal Operator Name Role Phone Angeline Klein MD Primary Care Provider [phone] Reason for Visit * Reason Onset Date Comments Nurse Triage 11/26/2024 Encounter Details Date Type Department Care Team ([facility] st Contact Info) Description 11/26/2024 Telephone [facility] MEDICINE [address] [place] [address] Angeline Klein MD [address] [place] [address] Nurse Triage Social History Tobacco Use Types [...] encounter Miscellaneous Notes * Telephone Encounter - Elsa Hernandez RN - 11/27/2024 3:45 PM EDT TC placed to pt. For status check, pt. Reports she attended oncology appt. Today and oncologist stated edema could not be related to chemo treatment and she should f/up with PCP. Pt. Reports edema isabout same level as triage call from yesterday, up to ankles and made worse by having to be on feetand wear shoes to appt. This morning. Pt. Has appt. For asthma injection tomorrow at 9:45am, therefore agrees to appt. With PCP Monday11/29/24 at 9:45am * Telephone Encounter - Daly Washington LPN - 11/26/2024 11:15 AM EDT Triage call returne to patient with [employer] Director [employer] [phone] [address]. Patient rpeorts concerns of intermittent swelling of ankles. Today left ankle worse than right increase noted 3 days ago. Patient without accident or injury. Has just started increased dose of chemo per oncology and has not had a problem in the past with this medication but is unsure if this may bethe cause. No discoloration, edema is pitting. Patient denies increased shortness of breath and speaks in full rapid sentences. Reports that she has known chronic asthma and emphysema at baseline. Patient is able to get her shoes on and ambulate but has discomfort due to swelling. Patient is elevating feet when stationary. Patient with Oncology appt tomorrow. Will address edema at time of visit. O ffered alternate appt at [facility] but patient wants only to see PCP . No appts available per triage protocol at time of call. Forwarded to PCP and team as FYI to follow up PRN .Disposition reviewed and patient in agreement with plan. Reviewed with patient home care recommendations, reasons to call back and symptoms that require immediate evaluation in UC or ER. Patient verbalized understanding and agrees. Protocol Used: Leg Swelling and Edema (Adult) Protocol-Based Disposition: See in Office or Video Visit within 3 Days Override (Final) Disposition: Refer to Specialist Override Reason: Nurse judgment Override Notes: Has Oncology treatment tomorrow Video visit not offered Positive Triage Question: * Mild swelling of both ankles (i.e., pedal edema) AND new-onset or getting worse * All higher-acuity triage questions were negative * Telephone Encounter - Mercedes Page - 11/26/2024 10:27 AM EDT Symptom: Foot or Ankle Swelling Outcome: Schedule an urgent appointment (within 1 hour) or talk to a nurse or provider soon Reason: Trouble walking The caller accepted this outcome. documented in this encounter Plan of Treatment Not on file documented as of this encounter Visit Diagnoses Not on filedocumented in this encounter Additional Health Concerns Assessment Noted Time PHQ-9 Depression Total Score: 4 12/26/19 24 10:32 AM EDT documented as of this encounter Care Teams Melt House Centrifugal Operator Relationship Specialty Start Date End Date Angeline Klein MD [address] [place] [address] PCP - General Family Medicine 08/21/20 documented as of this encounter
--- OUTSIDE RECORDS SUMMARY | 2024-12-03 17:36 | XMS_ITS | Encounter Summary ---
Author Organization [employer] Address [address] [facility] 7t [place] [address] Care Team Providers Care Border Measurer And Cutter Name Role Phone Angeline Klein MD Primary Care Provider [phone] Encounter Details Date Type Department Care Team (Late st Contact Info) Description 04/05/2023 Orders Only [facility] MEDICINE [address] [place], [place] [phone] Angeline Klein MD [address] [place], [place] [phone] Primary osteoarthritis of both hips (Primary Dx); [...] neck documented in this encounter Care Teams Border Measurer And Cutter Relationship Specialty Start Date End Date Angeline Klein MD [address] [place], [place] [phone] PCP - General Family Medicine 08/21/20 documented as of this encounter
--- OUTSIDE RECORDS SUMMARY | 2024-12-03 17:36 | XMS_ITS | Encounter Summary ---
Author Organization [employer] Address [address] [facility] [address] [place] [address] Care Team Providers Care Farm Crew Member Name Role Phone Angeline Klein MD Primary Care Provider [phone] Reason for Visit * Reason Onset Date Comments Nurse Triage 03/29/2024 Encounter Details Date Type Department Care Team ([facility] st Contact Info) Description 03/29/2024 Telephone [facility] MEDICINE [address] [place] [address] Angeline Klein MD [address] [place] [address] Nurse Triage Social History Tobacco Use Types [...] 03/29/2024 3:15 PM EDT Triage call with [place] Pony Ride Operator ID [id number] Pt reports fatigue for last 3 days. [...] Reason: Caller denied all higher acuity questions Greenlandic Speaker (Accepted Pony Ride Operator) documented in this encounter Plan of Treatment Not on file documented as of this encounter Visit Diagnoses Not on filedocumented in this encounter Additional Health Concerns Assessment Noted Time PHQ-9 Depression Total Score: 4 12/26/19 24 10:32 AM EDT documented as of this encounter Care Teams Farm Crew Member Relationship Specialty Start Date End Date Angeline Klein MD [address] [place] [address] PCP - General Family Medicine 08/21/20 documented as of this encounter
--- OUTSIDE RECORDS SUMMARY | 2024-12-03 17:36 | XMS_ITS | Encounter Summary ---
Author Organization [employer] Address [address] [facility] [address] [place] [address] Care Team Providers Care Signal Timer Name Role Phone Angeline Klein MD Primary Care Provider [phone] Reason for Visit * Reason Onset Date Comments Referral 04/04/2023 Encounter Details Date Type Department Care Team ([facility] st Contact Info) Description 04/04/2023 Telephone [facility] MEDICINE [address] [place] [address] Angeline Klein MD [address] [place] [address] Referral Social History Tobacco Use Types Packs/Day [...] 11:18 AM EDT TC placed to pt [phone] in regards to below message however number is OOS. RN called pt's OPHELIA Larson [phone] who was able to confirm the pt DOES want to go to [facility] pain management. RN informed[facility] PCP would place referral today. OPHELIA Larson also provided RN w/ updated number for the pt ([phone]). RN has updated pt's chart. Please place referral to [facility] pain management. * Telephone Encounter - Mary Devon - 04/04/2023 2:43 PM EDT Tc from kelly with [facility] requesting a new referral for pain management. documented in this encounter Plan of Treatment Not on file documented as of this encounter Visit Diagnoses Not on filedocumented in this encounter Care Teams Signal Timer Relationship Specialty Start Date End Date Angeline Klein MD [address] [place] [id number] PCP - General Family Medicine 08/21/20 documented as of this encounter
--- OUTSIDE RECORDS SUMMARY | 2024-12-03 17:36 | XMS_ITS | Data Portability ---
Author Organization [facility] [employer] [place], [place] in - Formerly [facility] Address [address] [place] [phone] Care Team Providers Care Lab Support Technician Name Role Phone HIM [facility] OTHER [facility] OTHER Assessment No assessment recorded. Plan of Treatment Reminders Order Date Submit Date Provider Last Modified By Organization Details Last Modified Time Details Appointments None recorded. Lab rapid strep group A, throat 2023 024 jessica [facility], [address] [place] [address], [phone], 12:54:14 Referral None recorded. Procedures None recorded. Surgeries None recorded. Imaging None recorded. Medication Orders nystatin 100,000 unit/mL oral suspension 2023 024 [id number], [address], [place], [phone], 12:54:22 Patient TargetsNo targets recorded. Patient InstructionsNo instructions recorded. Reason for Referral None Reported. Results Created Date Observation Date Name Description Value Unit Range Abnormal Flag Note LastModifiedBy Organization Detail LastModifiedTime 02/12/20 24 02/12/2024 rapid strep group A, throa t Strep negati ve Not Available [address], [phone], 02/12/2024 12:52:54 Result Notes None recorded. Medical [...] Not available Not available Not available 04/10/2024 12181 02 RxNorm COLLEEN IVAN MD [address] [place] [address],[address], [place], [phone], [employer] [facility] [employer] [employer], [place] 4 09:07:46 5743 naproxen medicatio n Not available Not available Not available 04/10/2024 7258 RxNorm COLLEEN IVAN MD [address] [place] [address],[address], [place], [phone], [employer], [place] 4 09:08:04 5744 oxycodone medicatio n Not available Not available Not available 04/10/2024 7804 RxNorm COLLEEN IVAN MD [address] [place] [address],[address], [place], [phone], [employer], [place] 4 09:08:18 Medications Name Sig Start Date [...] /min 106 mm[Hg] 66 mm[Hg] Not Available [facility] 4 10:22:14 Date Recorded Oxygen saturation Oxygen saturation in Arterial blood by Pulse oximetry Body temperature Body weight Heart rate Body height Respiratory rate Systolic blood pressure Diastolic blood pressure Provider Name and Address Organization Details Last Updated DateTime 4 98 % 98 % 99.1 [degF] 80910 g 90 /min 152.4 cm 14 /min 120 mm[Hg] 80 mm[Hg] Not Available [facility] 4 09:29:14 Social History None recorded. Functional Status None recorded. Mental Status None recorded. Family History Nothing Reported. Medical History No medical history recorded. Gynecological HistoryNo gynecological history recorded. Obstetrics History GPAL:G 0 P 0 0 0 0 Past Encounters Encounter ID Performer Location Encounter Start Date Encounter Closed Date Diagnosis/Indication Diagnosis SNOMED-CT Code Diagnosis ICD10 Code Diagnosis Note [id number] Dominick Walker MD [facility] - [facility] [address] [place] [phone] 02/12/2024 10:22:08 02/12/2024 16:37:24 Candidiasis of mouth 99125288 B37.0 Sent out for rapid strep and refill of Nystatin. [id number] COLLEEN IVAN MD Main - [facility] [address] [place] [phone] 04/10/2024 09:28:55 04/10/2024 11:00:49 Attention to nephrostomy tube 474890173 Z43.6 Evaluation in the field was performed by my cigar packer colleague, as noted above, I provided real-time direction and supervisio n for this visit. The evaluation revealed a 78-year-ol d female, status post bilateral nephrostom y tube placement on the or 17 of March, with concerns that the dressing has not been changed since. She denies bleeding, drainage, fever, chills, nausea, and vomiting. Per discussion with the patient via a Icelandic interprete r, she reports that she has a telehealth visit with Urology on April 12. VSS.Per discussion and per photo view, dressing in place, dry, clean with no urine or blood saturation Impression :B/L nephrostom y tube in place Plan:Since the dressing was intact, the cigar packer did not feel comfortabl e changing it [...] Brooks Member ID Guarantor Name 02/12/2024 1 [facility] - DOS ON OR AFTER 2022 - DUAL ELIGIBLE - ALF OPTIONS AND ONE CARE (MEDICARE REPLACEMENT/ADV ANTAGE - HMO) Altaf Alba [id number] Altaf Alba 04/10/2024 1 [facility] - DOS ON OR AFTER 2022 - DUAL ELIGIBLE - ALF OPTIONS AND ONE CARE (MEDICARE REPLACEMENT/ADV ANTAGE - HMO) Altaf Alba [id number] Altaf Alba Notes Date Note Type Note [...] in clear full sentences. [place] [facility] [place] for similar sx and given Nystatin for thrush as has hx of this. Pt unable to come into office. Pt agrees to [facility] for eval. ................... ................... ................... ................... ................... ................... ................... ........ [facility] Nurse Triage Notes (Marilia Bee): Comments: CRC RN DID NOT NEED FURTHER INFO Pan Devulcanizer Helper POC Test Results from Yovany Sesay Rapid strep test (1) [10:30] Strep: - ................... ................... ................... ................... ................... ................... ................... ........ Pan Devulcanizer Helper Note From Yovany Sesay: Pt reports off [...] exam. No LE edema. Rapid strep negative. [facility] contacted and will send nystatin rx to pharmacy. Pt instructed to f/u with PCP as they requested. Red flags reviewed. ................... ................... ................... ................... ................... ................... ................... ........ Disposition: Chantal Walker MD [address] [facility],[address], [place], [phone], [employer] 02/12/2024 12:54:18 04/10/2024 text/html CRC Nurse Triage Notes (Tori Nolasco): Reason For Request: Wound care Chief Complaints: Wound Care PMH: COPD/Asthma, Hypertension, Cancer, Heart Disease Allergies: Aspirin, Ibuprofen, Morphine Other Allergies: dupixent, MS, ASA, naproxen, oxycodone, mult others that she can't recall Comments: Referral taken via [employer] [id number]. Member calling in to place a referral, [...] ................... ................... ................... ................... ................... ................... ........ Pan Devulcanizer Helper Note From Jelani Geller: Patient conscious alert [...] moisture, discoloration, odor, discharge, or other concern. [facility] agrees encourages patient to follow up with urology, patient has an appointment [place]. Red flags patient education discussed. Patient demonstrates understanding of care and plan. Pan [employer]ul[employer] Helper Allergies: Aspirin, Ibuprofen, Morphine ................... ................... ................... ................... ................... ................... ................... ........ Disposition: Chantal IVAN MD [address] [place] [address],[address], [place], [phone], [place] [facility] [employer] 04/10/2024 10:27:47 OBGyn Episode No OBEpisode recorded.
--- OUTSIDE RECORDS SUMMARY | 2024-12-03 17:36 | XMS_ITS | Encounter Summary ---
Author Organization [employer] Address [address] [facility] [address] [place] [address] Care Team Providers Care Gauge Operator Name Role Phone Angeline Klein MD Primary Care Provider [phone] Encounter Details Date Type Department Care Team (Late st Contact Info) Description 02/01/2023 Abstract [facility] MEDICINE [address] [place], [place] [phone] Angeline Klein MD [address] [place] [address] Social History Tobacco Use Types Packs/Day Years [...] on filedocumented in this encounter Care Teams Gauge Operator Relationship Specialty Start Date End Date Angeline Klein MD [address] [place], [place] [phone] PCP - General Family Medicine 08/21/20 documented as of this encounter
--- OUTSIDE RECORDS SUMMARY | 2024-12-03 17:36 | XMS_ITS | Encounter Summary ---
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
--- OUTSIDE RECORDS SUMMARY | 2024-12-03 17:36 | XMS_ITS | Clinical Summary ---
Author Organization [facility] Address [address] [address] Care Team Providers Care Battery Repairer Name Role Phone Unavailable Primary Care Provider [...]
--- OUTSIDE RECORDS SUMMARY | 2024-12-03 17:36 | XMS_ITS | Encounter Summary ---
Author Organization [employer] Address [address] [facility] [address] [place] [address] Care Team Providers Care Lokie Driver Name Role Phone Angeline Klein MD Primary Care Provider [phone] Encounter Details Date Type Department Care Team (Late st Contact Info) Description 03/19/2024 Orders Only [facility] MEDICINE [address] [place], [place] [phone] Angeline Klein MD [address] [place], [place] [phone] Mixed stress and urge urinary incontinence (Primary [...] documented as of this encounter Care Teams Lokie Driver Relationship Specialty Start Date End Date Angeline Klein MD [address] [place] [address] PCP - General Family Medicine 08/21/20 documented as of this encounter
--- OUTSIDE RECORDS SUMMARY | 2024-12-03 17:36 | XMS_ITS | Encounter Summary ---
Author Organization [employer] Address [address] [facility] [address] [place] [address] Care Team Providers Care Picture Enlarger Name Role Phone Angeline Klein MD Primary Care Provider [phone] Encounter Details Date Type Department Care Team (Latest Contact Info) Description 11/29/2024 Travel Social History Tobacco Use Types Packs/Day Years [...] things needed for daily living? No 11/29/2024 Utilities Answer Date Recorded In the past [...] documented as of this encounter Care Teams Picture Enlarger Relationship Specialty Start Date End Date Angeline Klein MD [address] [place] [address] PCP - General Family Medicine 08/21/20 documented as of this encounter
--- OUTSIDE RECORDS SUMMARY | 2024-12-03 17:36 | XMS_ITS | Clinical Summary ---
Author Organization [employer] Address [address] [facility] [address] [place] [address] Care Team Providers Care Media Sales Consultant Name Role Phone Angeline Klein MD Primary Care Provider [phone] Allergies Active Allergy Reactions Criticality Noted Date Comments Aspirin 11/07/2013 Dupilumab Other 07/25/2024 Ibuprofen 01/20/2015 Other reaction(s): Itching Methazolamide 07/11/2017 Other reaction(s): Stomach Pain Morphine 10/24/2014 Naproxen Nausea Only 12/24/2019 Nsaids 07/27/2022 Oxycodone Dizziness 07/11/2017 Other reaction(s): Other (see comments) Medications lidocaine (Xylocaine) 5 % ointment Apply topically if needed each day. 1-3 times every day to affected areas Active linaCLOtide (Linzess) 145 MCG capsule Take 1 capsule by mouth before breakfast. Every day on an empty stomach at least 30 minutes before 1st meal of the day Active omeprazole OTC (PriLOSEC OTC) 20 MG EC tablet Take 1 tablet by mouth 1 (one) time each day. Active Spacer/Aero-Holdi ng Chambers (AeroChamber MV) inhaler by Other route. Use as instructed Active Flovent HFA 110 MCG/ACT inhaler Inhale 1 puff 2 times daily. Active hydrocortisone (Anusol-HC) 2.5 % rectal cream APPLY RECTALLY TO THE AFFECTED AREA 2 TO 4 TIMES A DAY FOR HEMORRHOIDS Active ondansetron ODT (Zofran-ODT) 8 MG disintegrating tablet DISSOLVE 1 TABLET ON THE TONGUE EVERY 8 HOURS NEEDED FOR NAUSEA 023 Active omeprazole (PriLOSEC) [address] capsule Take 40 mg by mouth in the morning. 023 Active albuterol (2.5 MG/3ML) 0.083% nebulizer solution Use 3cc q6h prn sob 75 mL 1 Active azithromycin (Zithromax) 250 MG tablet TAKE 2 TABLETS BY MOUTH ON THE FIRST DAY THEN 1 TABLET FOR 4 ADDITIONAL DAYS 024 Active dexAMETHasone (Decadron) 4 MG tablet TAKE 1 TABLET BY MOUTH TWICE DAILY ON DAY 2 AND 3 OF CHEMOTHERAPY EVERY 3 WEEKS Active Combivent Respimat 20-100 MCG/ACT inhaler INHALE 1 PUFF BY MOUTH FOUR TIMES DAILY. MAY TAKE ADDITIONAL PUFFS NEEDED. NOT TO EXCEED 6 PUFFS IN 24 HOURS 4 g 5 024 Active lisinopril 10 MG tabletIndications :Hypertension, unspecified type TAKE 1 AND 1/2 TABLETS BY MOUTH EVERY DAY 135 tablet 3 Active traMADol (Ultram) 50 MG tablet TAKE 1 TABLET BY MOUTH EVERY 12 HOURS NEEDED FOR BREAKTHROUGH PAIN 024 Active Multiple Vitamin (multivitamin) tablet Take 1 tablet by mouth Once per day. 90 tablet 3 024 Active pravastatin (Pravachol) 40 MG tablet TAKE 1 TABLET(40 MG) BY MOUTH AT BEDTIME 90 tablet 3 Active nystatin (Mycostatin) 468077 UNIT/ML suspension Take 1 mL (100,000 Units) by mouth 3 times daily. 45 mL 2 025 2024 Active cyanocobalamin (Vitamin B-12) 1000 MCG tabletIndications :Localized edema Take 1 tablet (1,000 mcg) by mouth Once per day. 30 tablet 11 025 2025 Active gabapentin (Neurontin) 100 MG capsuleIndication s:Localized edema Take 3 capsules (300 mg) by mouth 3 times daily. 270 capsule 11 025 2025 Active white petrolatum gel Apply topically if needed for dry skin (on the feet). 113 g 1 Active cefuroxime (Ceftin) 250 MG tablet TAKE 1 TABLET BY MOUTH TWICE DAILY FOR 9 DAYS 11/17/2 024 Active ciprofloxacin (Cipro) 250 MG tablet Take 1 tablet by mouth 2 times daily. Active albuterol 108 (90 Base) MCG/ACT inhaler INHALE 2 PUFFS BY MOUTH EVERY 4 TO 6 HOURS NEEDED FOR SHORTNESS OF BREATH OR WHEEZING Active fesoterodine ER (Toviaz) 8 MG 24 hr tablet Take 8 mg by mouth in the morning. 023 2024 Discontinued(T herapy completed) phenazopyridine (Pyridium) 100 MG tablet TAKE 1 TABLET BY MOUTH THREE TIMES DAILY FOR 5 DAYS FOR BLADDER PAIN 023 2024 Discontinued(T herapy completed) OxyCONTIN 10 MG 12 hr tablet Take 10 mg by mouth 2 times daily. 024 2024 Discontinued(T herapy completed) hydrOXYzine HCl (Atarax) 25 MG tablet Take 25 mg by mouth 3 times daily. 2024 Discontinued(T herapy completed) guaiFENesin (Mucinex) 600 MG 12 hr tablet Take 1 tablet (600 mg) by mouth 2 times daily. Do not crush, chew, or split. 60 tablet 024 2024 Discontinued(T herapy completed) gabapentin (Neurontin) 300 MG capsuleIndication s:Localized edema Take 1 capsule (300 mg) by mouth 3 times daily. 90 capsule 11 025 2024 Discontinued Active Problems Problem Noted Date Diagnosed Date Underweight 12/02/2024 Localized edema 12/02/2024 Vaginal bleeding 07/25/2024 Assessment & Plan (07/25/2024 [...] dose amlodipine -needs VNA --request today to staff mechanical engineer to start process for this. -pt on [...] Continue followup with oncology and urology at [facility] Has next biopsy planned for Aug 19, [address] Blair Assessment & Plan (12/26/2023 11:21 AM EDT): Continue followup with oncology and urology at [facility] Disease is spreading, will discuss therapeutic options with Dr Palacios tomorrow Assessment & Plan (05/01/2023 4:22 PM EDT): Continue followup with oncology and urology at [facility] No signs of infection or complication currently [...] scheduled MRI with patient, Dec 2 at [facility], so that she can proceed with treatment [...] Case has been discussed with ER at [facility]>. 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) 11/29/2024 Travel 11/26/2024 Telephone [facility] [address] [place] [phone] Angeline Klein MD Nurse Triage 10/27/2024 Orders Only [facility] External Provider, [facility] 09/24/2024 Orders Only [facility] External Provider, [facility] from Last 3 Months Immunizations Name Administration [...] Mass Index 18.37 11/29/2024 9:40 AM EDT Plan of Treatment Health Maintenance Due Date Last Done Comments Zoster Vaccines (2 of 3) 12/19/2014 10/24/2014 DTaP/Tdap/Td Vaccines (2 - Td or Tdap) 10/02/2022 10/02/2012, 01/05/2011 Pneumococcal Vaccine: 50+ Years (2 of 2 - PCV) 12/14/2022 12/14/2021, 06/19/2014 COVID-19 Vaccine (2 - season) 2024 12/02/2020 Influenza Vaccine (#1) 2024 , 06/21/2018, 06/20/2017, Additional history exists Depression Screening 12/25/2024 12/26/2023, 12/26/19 SDOH Screening 11/29/2025 11/29/2024 Tobacco Screening 11/29/2025 11/29/2024 Alcohol/Substance Use Screening 12/02/2025 12/02/2024 Lipid Panel 01/22/2026 01/22/2021, 11/30/2020 Hepatitis C [...] Procedure Name Priority Date/Time Associated Diagnosis Comments XR CHEST 2 VIEWS Routine 11/20/2024 5:[address] ABDOMEN PELVIS W CONTRAST Routine 11/20/2024 1:06 PM EDT MR PELVIS W AND WO CONTRAST Routine 10/27/2024 3:14 PM EST IR NEPHROSTOMY TUBE CHANGE Routine 09/24/2024 1:12 PM EST LIPID PANEL, STANDARD Routine 01/22/2021 9:15 AM EDT ZZZ HISTORICAL HEPATITIS A,B,C PROFILE Routine 08/22/2019 1:30 PM EST from Last 3 Months or Most Recently Relevant to Health Maintenance Results * XR Chest 2 Views (11/20/2024 5:14 PM EDT) Anatomical Region Laterality Modality Chest Radiographic Manju ging 11/20/2024 5:14 PM EDT Narrative 11/20/2024 5:15 PM EDT ? [facility] ?[address] ?[place] [address] ?XRay Report ? Signed ? Patient: Parth,Altaf ?MR#: [id number] ?? 260 ? : 1945 ?Acct:[id number] ? Age/Sex: 79 / F ?ADM Date: 11/20/24 ? Loc: HO.CT ? Attending Dr: Destiney Palacios MD ? Ordering Physician: Endy Thakkar MD ?? Date of Service: 11/20/24 ?? Procedure(s): XR chest 2V ?? Accession Number(s): [id number] ? cc: Angeline Klein; Endy Thakkar MD ? CLINICAL HISTORY: J45.50 - Severe persistent asthma, uncomplicated ? 2 view chest x-ray ? Comparison: CR/CT/SR - XR CHEST 2V - 04/09/24 09:11 EDT ? Findings: ?? Interval right internal jugular MediPort with catheter tip in the ?? cavoatrial junction. ?? Heart size is normal. Atherosclerotic vascular disease of aortic arch. ?? Lungs are hyperinflated with mild chronic interstitial changes. ?? No consolidation, pleural effusion or pneumothorax. ?? Degenerative changes of the spine. No acute fracture. ? IMPRESSION: ?? 1. No acute findings. ? 2. Findings suggestive of emphysema. ?? 3. Right MediPort with catheter tip at the cavoatrial junction. ? This document has been electronically signed by: Kasia Gaxiola MD on ?? 11/20/2024 17:14:07 ? Dictated By: ?Kasia Gaxiola MD ? Signed By: ?<Electronically signed by Kasia Gaxiola MD in OV> ? 11/20/241714 ? DD/ 13 ? TD/TT: 11/20/241713 ? Echo Vascular Tech: ? Procedure Note Donotuseinterpreter, Image - 11/20/[address] [address] XRay Report Signed Patient: Altaf AlbaMR#: [id number] 260 : 6Acct:[id number] Age/Sex: 79 / FADM Date: 11/20/24 Loc: HO.CT Attending Dr: Destiney Palacios MD Ordering Physician: Endy Thakkar MD Date of Service: 11/20/24 Procedure(s): XR chest 2V Accession Number(s): [id number] cc: Angeline Klein; Endy Thakkar MD CLINICAL HISTORY: J45.50 - Severe persistent asthma, uncomplicated 2 view chest x-ray Comparison: CR/CT/SR - XR CHEST 2V - 04/09/24 09:11 EDT Findings: Interval right internal jugular MediPort with catheter tip in the cavoatrial junction. Heart size is normal. Atherosclerotic vascular disease of aortic arch. Lungs are hyperinflated with mild chronic interstitial changes. No consolidation, pleural effusion or pneumothorax. Degenerative changes of the spine. No acute fracture. IMPRESSION: 1. No acute findings. 2. Findings suggestive of emphysema. 3. Right MediPort with catheter tip at the cavoatrial junction. This document has been electronically signed by: Kasia Gaxiola MD on 11/20/2024 17:14:07 Dictated By: Kasia Gaxiola MD Signed By: <Electronically signed by Kasia Gaxiola MD in OV> 11/20/241714 DD/ 13 TD/TT: 11/20/241713 Echo Vascular Tech: [facility] External Provider IMG XR PROCEDURES Final Result * CT Abdomen Pelvis w/ Contrast (11/20/2024 1:06 PM EDT) Anatomical Region Laterality Modality Body, Pelvis, Abdomen Computed T omography 11/20/2024 1:06 PM EDT Narrative 11/20/2024 1:08 PM EDT ? [facility] ?[address] ?[place] [address] ? CT Scan Report ? Signed ? Patient: Alba,Altaf ?MR#: [id number] ?? 260 ? : 1945 ?Acct:[id number] ? Age/Sex: 79 / F ?ADM Date: 11/20/24 ? Loc: HO.CT ? Attending Dr: Destiney Palacios MD ? Ordering Physician: Destiney Palacios MD ?? Date of Service: 11/20/24 ?? Procedure(s): CT abdomen pelvis w IV con ?? Accession Number(s): [id number] ? cc: Destiney Palacios MD; Angeline Klein ? Report Number: ?? [id number]: Total DLP = 1010.00 mGy-cm ? CLINICAL HISTORY: Assess response to treatment ? CT abdomen and pelvis with IV contrast. ? COMPARISON: CT abdomen and pelvis dated 07/28/24 at 08:54 EST ? FINDINGS: ?? Visualized lung bases are clear. ?? Scattered gas within the biliary tree likely secondary to instrumentation ?? of the common bile duct. Cholecystectomy. No choledocholithiasis ?? identified. ?? Normal spleen. Normal pancreas. Normal adrenal glands. ?? Percutaneous nephrostomy tubes present bilaterally. No hydronephrosis. ?? Focal area of loss of cortical enhancement along the superior pole of the ?? left kidney (series 3, image 15). No hydroureter. ? Normal appendix. Kyzk-iq-vsxgcukl colonic stool burden. No bowel ?? obstruction. Mild distal colonic diverticulosis without evidence of ?? diverticulitis. ?? Moderate aortoiliac atherosclerotic vascular calcifications. ? Enlarged retroperitoneal lymph nodes redemonstrated. For example, ?? retroperitoneal/left periaortic lymph node measuring 2.7 x 1.5 cm (series ?? 3, image 24), previously measured 1.3 x 0.9 cm. ?? Left periaortic lymph node measuring 1.4 x 1.1 cm (series 3, image 29), ?? previously measured 0.8 x 1.4 cm. ?? Enlarged lymph node at the bifurcation of the aorta on the left measuring ?? 1.2 x 1.3 cm (series 3, image 35), previously measured 1.3 x 1.1 cm. ?? Left external iliac lymph node measuring 1.3 x 1.3 cm (series 3, image ?? 53), previously measured 1.1 x 0.7 cm. ? Marked circumferential thickening of the mucosa of the urinary bladder ?? with heterogeneous enhancement primarily along the inferior aspect. ?? Uterus is not seen. No adnexal mass. ?? Multiple chronic wedge compression fractures of the lower thoracic and ?? lumbar spine most pronounced at L5 where there is approximately 50 percent ?? height loss. Marked apex left curvature of the lower thoracic and upper ?? lumbar spine. Advanced multilevel spondylosis. ? IMPRESSION: ?? 1. Enlarged retroperitoneal lymph nodes appear similar in number but ?? overall mildly increased in size since prior imaging. ?? 2. Marked heterogeneously enhancing circumferential thickening of the ?? mucosa of the urinary bladder suggestive of malignancy, similar to prior ?? imaging. ?? 3. Focal loss of cortical enhancement along the superior pole of the left ?? kidney. Nonspecific finding can be associated with pyelonephritis. ?? Recommend correlation clinically. Percutaneous nephrostomy tubes appear in ?? stable position without evidence of obstruction. ? This document has been electronically signed by: Mark Hilton MD on ?? 11/20/2024 13:06:13 ? Dictated By: ?Mark Hilton MD ? Signed By: ?<Electronically signed by Mark Hilton MD in OV> ?11/20/24 1307 ? DD/ 1306 ? TD/TT: 11/20/24 1306 ? Echo Vascular Tech: ? Procedure Note Bayron, Image - 11/20/[address] [place] [address] [address] Scan Report Signed Patient: Altaf AlbaMR#: [id number] 260 : 6Acct:[id number] Age/Sex: 79 / FADM Date: 11/20/24 Loc: .CT Attending Dr: Destiney Palacios MD Ordering Physician: Destiney Palacios MD Date of Service: 11/20/24 Procedure(s): CT abdomen pelvis w IV con Accession Number(s): [id number] cc: Destiney Palacios MD; Angeline Klein Report Number: [id number]: Total DLP = 1010.00 mGy-cm CLINICAL HISTORY: Assess response to treatment CT abdomen and pelvis with IV contrast. COMPARISON: CT abdomen and pelvis dated 07/28/24 at 08:54 EST FINDINGS: Visualized lung bases are clear. Scattered gas within the biliary tree likely secondary to instrumentation of the common bile duct. Cholecystectomy. No choledocholithiasis identified. Normal spleen. Normal pancreas. Normal adrenal glands. Percutaneous nephrostomy tubes present bilaterally. No hydronephrosis. Focal area of loss of cortical enhancement along the superior pole of the left kidney (series 3, image 15). No hydroureter. Normal appendix. Crxa-xv-hkhbrlvo colonic stool burden. No bowel obstruction. Mild distal colonic diverticulosis without evidence of diverticulitis. Moderate aortoiliac atherosclerotic vascular calcifications. Enlarged retroperitoneal lymph nodes redemonstrated. For example, retroperitoneal/left periaortic lymph node measuring 2.7 x 1.5 cm (series 3, image 24), previously measured 1.3 x 0.9 cm. Left periaortic lymph node measuring 1.4 x 1.1 cm (series 3, image 29), previously measured 0.8 x 1.4 cm. Enlarged lymph node at the bifurcation of the aorta on the left measuring 1.2 x 1.3 cm (series 3, image 35), previously measured 1.3 x 1.1 cm. Left external iliac lymph node measuring 1.3 x 1.3 cm (series 3, image 53), previously measured 1.1 x 0.7 cm. Marked circumferential thickening of the mucosa of the urinary bladder with heterogeneous enhancement primarily along the inferior aspect. Uterus is not seen. No adnexal mass. Multiple chronic wedge compression fractures of the lower thoracic and lumbar spine most pronounced at L5 where there is approximately 50 percent height loss. Marked apex left curvature of the lower thoracic and upper lumbar spine. Advanced multilevel spondylosis. IMPRESSION: 1. Enlarged retroperitoneal lymph nodes appear similar in number but overall mildly increased in size since prior imaging. 2. Marked heterogeneously enhancing circumferential thickening of the mucosa of the urinary bladder suggestive of malignancy, similar to prior imaging. 3. Focal loss of cortical enhancement along the superior pole of the left kidney. Nonspecific finding can be associated with pyelonephritis. Recommend correlation clinically. Percutaneous nephrostomy tubes appear in stable position without evidence of obstruction. This document has been electronically signed by: Mark Hilton MD on 11/20/2024 13:06:13 Dictated By: Mark Hilton MD Signed By: <Electronically signed by Mark Hilton MD in OV> 11/20/24 1307 DD/ 1306 TD/TT: 11/20/24 1306 Echo Vascular Tech: [facility] External Provider IMG CT PROCEDURES Final Result * MR Pelvis w/ and w/o Contrast (10/27/2024 3:14 PM EST) Anatomical Region Laterality Modality Body, Pelvis Magnetic Resonan ce 10/27/2024 3:14 PM EST Narrative 10/27/2024 3:15 PM EST ? [facility] ?[address] ?[place] [address] ? Magnetic Resonance Report ? Signed ? Patient: Alba,Altaf ?MR#: [id number] ?? 260 ? : 1945 ?Acct:[id number] ? Age/Sex: 79 / F ?ADM Date: 10/27/24 ? Loc: HO.MRI ? Attending Dr: Destiney Palacios MD ? Ordering Physician: Destiney Palacios MD ?? Date of Service: 10/27/24 ?? Procedure(s): MR pelvis wo/w con ?? Accession Number(s): [id number] ? cc: Destiney Palacios MD; Angeline Klein [...] ? Signed By: ?<Electronically signed by Scar Sunny, MD in OV> ?10/27/245 ? DD/ 13 ? TD/TT: 10/27/241513 ? Echo Vascular Tech: ? Procedure Note Bayron, Charlie - 10/27/2024 [place] [address] Magnetic Resonance Report Signed Patient: Altaf Alba#: [id number] 260 : 6Acct:[id number] Age/Sex: 79 / FADM Date: 10/27/24 Loc: HO.MRI Attending Dr: Destiney Palacios MD Ordering Physician: Destiney Palacios MD Date of Service: 10/27/24 Procedure(s): MR pelvis wo/w con Accession Number(s): [id number] cc: Destiney Palacios MD; Angeline Klein CLINICAL [...] document has been electronically signed by: Scar oCrrea MD on 10/27/2024 15:14:12 Dictated By: Scar Correa MD Signed By: <Electronically signed by Scar Correa MD in OV> 10/27/24 1515 DD/ 151 TD/TT: 10/27/24 151 Echo Vascular Tech: [facility] External Provider IMG MRI PROCEDURES Edited Result - Final * IR Nephrostomy Tube Change (09/24/2024 1:12 PM EST) Anatomical Region Laterality Modality Body X-Ray Angiograph y 09/24/2024 1:12 PM EST Narrative 09/25/2024 5:28 PM EST ? [facility] ?[address] ?[place] [address] ?Interventional Radiology Rpt ? Signed ? Patient: Alba,Altaf ?MR#: [id number] ?? 260 ? : 1945 ?Acct:[id number] ? Age/Sex: 79 / F ?ADM Date: 09/24/24 ? Loc: HO.SSS ? Attending Dr: Severo Blair MD ? Ordering Physician: Severo Blair MD ?? Date of Service: 09/24/24 ?? Procedure(s): IR nephrostomy tube change ?? Accession Number(s): [id number] ? cc: Severo Blair MD; Angeline Klein [...] over ?? the wire. A new 8 Citizen Of [place] locking pigtail catheter was advanced over the [...] and over the wire. A new 8 Citizen [place] locking pigtail catheter was ?? advanced over [...] DD/ 1312 ? TD/TT: 09/24/24 1413 ? Echo Vascular Tech: ? Procedure Note Donotuseinterpreter, Image - 09/25/2024 [place] [address] Interventional Radiology Rpt Signed Patient: Kathy Alba#: [id number] 260 : 6Acct:[id number] Age/Sex: 79 / FADM Date: 09/24/24 Loc: [facility] Attending Dr: Severo Blair MD Ordering Physician: Severo Blair MD Date of Service: 09/24/24 Procedure(s): IR nephrostomy tube change Accession Number(s): [id number] cc: Severo Blair MD; Angeline Klein FLUOROSCOPIC [...] and over the wire. A new 8 Citizen [place] locking pigtail catheter was advanced over the [...] and over the wire. A new 8 Citizen [place] locking pigtail catheter was advanced over the wire. The wire was removed. 5 mL of contrast was injected to ensure proper positioning of the catheter in the renal pelvis. A 3-0 Ethilon suture was used to secure the catheter to the skin. A sterile dressing was applied. Summary: Successful bilateral nephrostomy exchange with fluoroscopic guidance. Electronically signed by: Molian Chavarria MD 09/25/2024 05:25 PM [facility] Dictated By: Molina Chavarria MD Signed By: <Electronically signed by Molina Chavarria MD in OV> 09/25/24 1725 DD/ 1312 TD/TT: 09/24/24 1413 Echo Vascular Tech: [facility] External Provider IMG IR PROCEDURES Final Result [...] the ?? estimation of LDL-C. ?? Timoteo SS et al. SHARYN. 2013;310(19): 2328-1798 ?? (http://education.Porter + Sail/faq/QWM656) Non-HDL Cholesterol 116 <130 mg/dL (calc) [facility] Comment: For patients with diabetes plus 1 major ASCVD risk ?? factor, treating to a non-HDL-C goal of <100 mg/dL ?? (LDL-C of <70 mg/dL) is considered a therapeutic ?? option. Triglycerides 116 <150 mg/dL [facility] 01/22/2021 9:15 AM EDT us Angeline Klein MD LAB BLOOD ORDERABLES Final Res ult Performing Organization Address [facility] Co de Phone Number [facility] [address] * HEPATITIS A,B,C PROFILE (08/22/2019 1:30 [...] ORDERABLE LABS Final Result Performing Organization Address [facility] de Phone Number [facility] [address] from Last 3 Months or Most Recently Relevant to Health Maintenance Insurance [facility] Care Teams Media Sales Consultant Relationship Specialty Start Date End Date Angeline Klein MD [address] [place] [phone] PCP - General Family Medicine 08/21/20
--- OUTSIDE RECORDS SUMMARY | 2024-12-03 17:36 | XMS_ITS | Encounter Summary ---
Author Organization [employer] Address [address] [facility] [address] [place] [address] Care Team Providers Care Tailor Fitter Name Role Phone Angeline Klein MD Primary Care Provider [phone] Encounter Details Date Type Department Care Team (Late st Contact Info) Description 05/10/2024 Orders Only [facility] [address] [place], [place] [phone] Angeline Klein MD [address] [place] [address] Oral thrush (Primary Dx) Social History Tobacco [...] documented as of this encounter Care Teams Tailor Fitter Relationship Specialty Start Date End Date Angeline Klein MD [address] [place] [phone] PCP - General Family Medicine 08/21/20 documented as of this encounter
--- OUTSIDE RECORDS SUMMARY | 2024-12-03 17:36 | XMS_ITS | Encounter Summary ---
Author Organization [employer] Address [address] [facility] [address] [place] [address] Care Team Providers Care Physician Assistant Surgery Name Role Phone Angeline Klein MD Primary Care Provider [phone] Encounter Details Date Type Department Care Team ([facility] st Contact Info) Description 09/23/2022 Telephone [facility] [address] [place], [place] [phone] Angeline Klein MD [address] [place] [address] Social History Tobacco Use Types Packs/Day Years [...] on filedocumented in this encounter Care Teams Physician Assistant Surgery Relationship Specialty Start Date End Date Angeline Klein MD [address] [place] [address] PCP - General Family Medicine 08/21/20 documented as of this encounter
== END 2024-12-03 15:39 | disposition home or self-care (01) ==
LOC: HO.HUSH 14:05
PROVIDERS: PCP General Practice; Visit Provider Urology
DX: C67.8 Malignant neoplasm of overlapping sites of bladder (principal)
CPT/HCPCS: 99214; G2211

== ENCOUNTER → 2024-12-03 14:05 | Outpatient (BNVA) | payer OTHER, SELFPAY | PROVIDERS: PCP General Practice; Visit Provider Urology ==

== ENCOUNTER 2024-12-23 10:09 | Outpatient (REF) | payer OTHER, SELFPAY ==
--- NOTE | ~2024-12-23 | US_ITS ---
EXAMINATION: US KIDNEY BILATERAL HISTORY: N20.0 - Calculus of kidney TECHNIQUE: Real-time grayscale ultrasound imaging of the kidneys was performed and images were reviewed. COMPARISON: Correlation is made with a CT of the abdomen with contrast dated 11/20/2024. FINDINGS: Right kidney: The right kidney measures 10.0 x 5.7 x 5.1 cm. Renal parenchymal echotexture and thickness are normal. There are no masses. There is moderate hydronephrosis. A nephrostomy tube is seen in place. No definite calculi are identified. Left Kidney: The left kidney measures 12.9 x 5.6 x 5.7 cm. There is renal cortical thinning. There are no masses. There is severe hydronephrosis. The nephrostomy tube is seen. US/US renal BI IMPRESSION: 1. Moderate right hydronephrosis. Nephrostomy tube in place. 2. Severe left hydronephrosis with renal cortical thinning. The left-sided nephrostomy tube which was present on the prior CT scan is not visualized. Electronically signed by: Bennett Alejandro MD 12/23/2024 11:48 AM EDT
--- OUTSIDE RECORDS SUMMARY | 2024-12-23 11:30 | XMS_ITS | Encounter Summary ---
Author Organization [employer] Address [address] [facility] 7t [place] [address] Care Team Providers Care Pulmonary Physician Name Role Phone Angeline Klein MD Primary Care Provider [phone] Reason for Visit * Reason Onset Date Comments Medication Question 12/23/2024 Encounter Details Date Type Department Care Team ([facility] st Contact Info) Description 12/23/2024 Refill [facility] MEDICINE [address] [place] [address] Angeline Klein MD 230 [place] [address] Allergic eosinophilia Social History Tobacco Use Types Packs/Day Years [...] the past 12 months, has t he [employer], oil or water company threatened to shut [...] Telephone Encounter - Elsa Hernandez RN - 12/23/2024 9:15 AM EDT Rx pended, last noted in chart from 2023 * Telephone Encounter - Melina Scott - 12/23/2024 8:42 AM EDT Tc from pt requesting hydrOXYzine HCl (Atarax) 25 MG tablet. Pt states has a very itchy skin and that's the medicine that helps her. documented in this encounter Plan of Treatment Not on file documented as of this encounter Visit Diagnoses Diagnosis Allergic eosinophilia Eosinophilia documented in this encounter Additional Health Concerns Assessment Noted Time PHQ-9 Depression Total Score: 4 12/26/19 24 10:32 AM EDT documented as of this encounter Care Teams Pulmonary Physician Relationship Specialty Start Date End Date Angeline Klein MD [address] [place] [address] PCP - General Family Medicine 08/21/20 documented as of this encounter
--- OUTSIDE RECORDS SUMMARY | 2024-12-23 11:30 | XMS_ITS | Encounter Summary ---
Author Organization [employer] [facility] Address [address] [facility] 7t [place] [address] Care Team Providers Care Facilitator Name Role Phone Angeline Klein MD Primary Care Provider [phone] Encounter Details Date Type Department Care Team (Late st Contact Info) Description 08/01/2022 Abstract [facility] MEDICINE [address] [place], [place] [phone] Angeline Klein MD [address] [place] [address] Social History Tobacco Use Types Packs/Day Years [...] on filedocumented in this encounter Care Teams Facilitator Relationship Specialty Start Date End Date Angeline Klein MD 230 [place], [place] [phone] PCP - General Family Medicine 08/21/20 documented as of this encounter
--- OUTSIDE RECORDS SUMMARY | 2024-12-23 11:30 | XMS_ITS | Encounter Summary ---
Author Organization [employer] Address [address] [facility] 7t [place] [address] Care Team Providers Care Mat Making Machine Tender Name Role Phone Angeline Klein MD Primary Care Provider [phone] Reason for Visit * Reason Onset Date Comments Med Refill 12/20/2024 Encounter Details Date Type Department Care Team ([facility] st Contact Info) Description 12/20/2024 Telephone [facility] MEDICINE [address] [place] [address] Angeline Klein MD [address] [place] [address] Med Refill Social History Tobacco Use Types Packs/Day Years [...] the past 12 months, has t he [employer] gas, oil or water company threatened to [...] encounter Miscellaneous Notes * Telephone Encounter - Latricia Quezada LPN - 12/20/2024 11:14 AM EDT Medication was discontinued. * Telephone Encounter - Melina Scott - 12/20/2024 11:11 AM EDT TC from pt requesting medication refill. Medications needing refill : hydrOXYzine HCl (Atarax) 25 MG tablet To be sent to: [id number] - [place] - [address] [facility] documented in this encounter Plan of Treatment Not on file documented as of this encounter Visit Diagnoses Not on filedocumented in this encounter Additional Health Concerns Assessment Noted Time PHQ-9 Depression Total Score: 4 12/26/19 24 10:32 AM EDT documented as of this encounter Care Teams Mat Making Machine Tender Relationship Specialty Start Date End Date Angeline Klein MD [address] [place] [address] [place] [address] PCP - General Family Medicine 08/21/20 documented as of this encounter
--- OUTSIDE RECORDS SUMMARY | 2024-12-23 11:30 | XMS_ITS | Encounter Summary ---
Author Organization [employer] Address [address] [facility] 7t [place] [address] Care Team Providers Care Production Hand Name Role Phone Angeline Klein MD Primary Care Provider [phone] Reason for Visit * Reason Onset Date Comments Nurse Triage 03/29/2024 Encounter Details Date Type Department Care Team ([facility] st Contact Info) Description 03/29/2024 Telephone [facility] MEDICINE 230 [place] [address] Angeline Klein MD 230 [place] [address] Nurse Triage Social History Tobacco Use Types [...] 03/29/2024 3:15 PM EDT Triage call with [employer] Chef Instructor ID [id number] Pt reports fatigue for last 3 days. [...] Reason: Caller denied all higher acuity questions [place] Citizen Speaker (Accepted Chef Instructor) documented in this encounter Plan of Treatment Not on file documented as of this encounter Visit Diagnoses Not on filedocumented in this encounter Additional Health Concerns Assessment Noted Time PHQ-9 Depression Total Score: 4 12/26/19 24 10:32 AM EDT documented as of this encounter Care Teams Production Hand Relationship Specialty Start Date End Date Angeline Klein MD 230 [place] [address] PCP - General Family Medicine 08/21/20 documented as of this encounter
--- OUTSIDE RECORDS SUMMARY | 2024-12-23 11:30 | XMS_ITS | Encounter Summary ---
Author Organization [employer] Address [address] [facility] 7t [place] [address] Care Team Providers Care Automatic Buffer Name Role Phone Angeline Klein MD Primary Care Provider [phone] Encounter Details Date Type Department Care Team (Late st Contact Info) Description 03/19/2024 Orders Only [facility] MEDICINE 230 [place], [place] [phone] Angeline Klein MD 230 [place], [place] [phone] Mixed stress and urge urinary incontinence (Primary [...] documented as of this encounter Care Teams Automatic Buffer Relationship Specialty Start Date End Date Angeline Klein MD [address] [place] [address] PCP - General Family Medicine 08/21/20 documented as of this encounter
--- OUTSIDE RECORDS SUMMARY | 2024-12-23 11:30 | XMS_ITS | Encounter Summary ---
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
--- OUTSIDE RECORDS SUMMARY | 2024-12-23 11:30 | XMS_ITS | Encounter Summary ---
Author Organization [employer] Address [address] [facility] 7t [place] [address] Care Team Providers Care Tap Builder Name Role Phone Angeline Klein MD Primary Care Provider [phone] Encounter Details Date Type Department Care Team (Late st Contact Info) Description 04/12/2024 Orders Only [facility] MEDICINE 230 [place], [place] [phone] Guadalupe Garrido MD 230 [place] [address] Social History Tobacco Use Types Packs/Day Years [...] documented as of this encounter Care Teams Tap Builder Relationship Specialty Start Date End Date Angeline Klein MD 230 [place] [address] PCP - General Family Medicine 08/21/20 documented as of this encounter
--- OUTSIDE RECORDS SUMMARY | 2024-12-23 11:30 | XMS_ITS | Clinical Summary ---
Author Organization [employer] Address [address] [facility] 7t [place] [address] Care Team Providers Care Exercise Instructor Name Role Phone Angeline Klein MD Primary Care Provider [phone] Allergies Active Allergy Reactions Criticality Noted Date [...] BEDTIME 90 tablet 3 Active nystatin (Mycostatin) 441284 UNIT/ML suspension Take 1 mL (100,000 Units) [...] FOR SHORTNESS OF BREATH OR WHEEZING Active hydrOXYzine pamoate (Vistaril) 25 MG capsuleIndication s:Allergic eosinophilia Take 1 capsule (25 mg) by mouth every 8 (eight) hours if needed for itching. 90 capsule 3 025 Active fesoterodine ER (Toviaz) 8 MG 24 [...] 25 mg by mouth 3 times daily. 024 2024 Discontinued(T herapy completed) guaiFENesin (Mucinex) 600 [...] dose amlodipine -needs [facility] --request today to event staff member to start process for this. -pt on [...] Continue followup with oncology and urology at [facility] Has next biopsy planned for Aug 19, [address] Blair Assessment & Plan (12/26/2023 11:21 AM EDT): Continue followup with oncology and urology at [facility] Disease is spreading, will discuss therapeutic options with Dr Palacios tomorrow Assessment & Plan (05/01/2023 4:22 PM EDT): Continue followup with oncology and urology at [facility] No signs of infection or complication currently [...] scheduled MRI with patient, Dec 2 at [facility], so that she can proceed with treatment [...] Case has been discussed with ER at [facility]>. Encounters Date Type Department Care Team Description 12/23/2024 Refill [facility] MEDICINE [address] [place] [address] Angeline Klein MD Allergic eosinophilia 12/20/[address] [address] Angeline Klein MD Med Refill 12/17/[address] [address] Angeline Klein MD Nurse Triage 11/29/2024 9:45 AM EDT Office Visit [address] [address] Angeline Klein MD Localized edema (Primary Dx); Dietary counseling; Exercise counseling; Underweight; Inadequate housing utilities; Protein-calorie malnutrition, unspecified severity (CMS/HCC); Malignant neoplasm of urinary bladder neck ([facility]/HCC) 11/29/2024 Travel 11/26/2024 Telephone [facility] MEDICINE [address] [place] [address] Angeline Klein MD Nurse Triage 10/27/2024 Orders Only [facility] External Provider, [facility] 09/24/2024 Orders Only [facility] External Provider, [facility] from Last 3 Months Immunizations Name Administration [...] EDT Narrative 11/20/2024 5:15 PM EDT ? [facility] ?[address] ?[place] [address] ?XRay Report ? Signed ? Patient: Alba,Altaf ?MR#: [id number] ?? 260 ? : 1945 ?Acct:[id number] ? Age/Sex: 79 / F ?ADM Date: 11/20/ ? Loc: HO.CT ? Attending Dr: Destiney Palacios MD ? Ordering Physician: Endy Thakkar MD ?? Date of Service: 11/20/24 ?? Procedure(s): XR chest 2V ?? Accession Number(s): [id number] ? cc: Angeline Klein; Endy Thakkar MD ? CLINICAL HISTORY: J45.50 - Severe persistent asthma, uncomplicated ? 2 view chest x-ray ? Comparison: CR/OR/SR - XR CHEST 2V - 04/09/24 09:11 [...] by Kasia Gaxiola MD in OV> ? 11/20/24 1715 ? DD/ ? TD/TT: 11/20/24 1714 ? Product Development Specialist: ? Procedure Note Bayron, Image - 11/20/2024 [place] [address] XRay Report Signed Patient: Altaf AlbaMR#: [id number] 260 : 1945cct:[id number] Age/Sex: 79 / FADM Date: 11/20/24 Loc: HO.CT Attending Dr: Destiney Palacios MD Ordering Physician: Endy Thakkar MD Date of Service: 11/20/24 Procedure(s): XR chest 2V Accession Number(s): [id number] cc: Angeline Klein; Endy Thakkar MD CLINICAL HISTORY: J45.50 - Severe persistent asthma, uncomplicated 2 view chest x-ray Comparison: CR/OR/SR - XR CHEST 2V - 04/09/24 09:11 [...] in OV> 11/20/241714 DD/ 13 TD/TT: 11/20/241713 Product Development Specialist: [facility] External Provider IMG XR PROCEDURES Final Result * CT Abdomen Pelvis w/ Contrast (11/20/2024 1:06 PM EDT) Anatomical Region Laterality Modality Body, Pelvis, Abdomen Computed T omography 11/20/2024 1:06 PM EDT Narrative 11/20/2024 1:08 PM EDT ? [facility] ?[address] ?[place] [address] ? CT Scan Report ? Signed ? Patient: Alba,Altaf ?MR#: [id number] ?? 260 ? : 1945 ?Acct:[id number] ? Age/Sex: 79 / F ?ADM Date: 11/20/24 ? Loc: HO.CT ? Attending Dr: Destiney Palacios MD ? Ordering Physician: Destiney Palacios MD ?? Date of Service: 11/20/24 ?? Procedure(s): CT abdomen pelvis w IV con ?? Accession Number(s): [id number] ? cc: Destiney Palacios MD; Angeline Klein ? Report Number: ?? [id number]: Total DLP = 1010.00 mGy-cm ? CLINICAL [...] image 15). No hydroureter. ? Normal appendix. Rjoh-zn-epbpjsoa colonic stool burden. No bowel ?? obstruction. [...] signed by Mark Hilton MD in OV> ?11/20/247 ? DD/ 1306 ? TD/TT: 11/20/24 1306 ? Product Development Specialist: ? Procedure Note Bayron, Image - 11/20/[address] [address] [address] Scan Report Signed Patient: Altaf AlbaMR#: [id number] 260 : 6Acct:[id number] Age/Sex: 79 / FADM Date: 11/20/24 Loc: HO.CT Attending Dr: Destiney Palacios MD Ordering Physician: Destiney Palacios MD Date of Service: 11/20/24 Procedure(s): CT abdomen pelvis w IV con Accession Number(s): [id number] cc: Destiney Palacios MD; Angeline Klein Report Number: [id number]: Total DLP = 1010.00 mGy-cm CLINICAL HISTORY: [...] 3, image 15). No hydroureter. Normal appendix. Cqxg-jg-vlmiykfl colonic stool burden. No bowel obstruction. Mild [...] 11/20/24 1307 DD/ 1306 TD/TT: 11/20/24 1306 Product Development Specialist: [facility] External Provider IMG CT PROCEDURES Final Result * MR Pelvis w/ and w/o Contrast (10/27/2024 3:14 PM EST) Anatomical Region Laterality Modality Body, Pelvis Magnetic Resonan ce 10/27/2024 3:14 PM EST Narrative 10/27/2024 3:15 PM EST ? [facility] ?[address] ?[place] [address] ? Magnetic Resonance Report ? Signed ? Patient: Alba,Altaf ?MR#: [id number] ?? 260 ? : 1945 ?Acct:[id number] ? Age/Sex: 79 / F ?ADM Date: 02/16/25 ? Loc: HO.MRI ? Attending Dr: Destiney Palacios MD ? Ordering Physician: Destiney Palacios MD ?? Date of Service: 10/27/24 ?? Procedure(s): MR pelvis wo/w con ?? Accession Number(s): [id number] ? cc: Destiney Palacios MD; Angeline Klein [...] DD/ 1514 ? TD/TT: 10/27/24 1514 ? Product Development Specialist: ? Procedure Note Donkamala, Image - 10/27/[address] [address] Magnetic Resonance Report Signed Patient: Altaf AlbaMR#: [id number] 260 : 6Acct:[id number] Age/Sex: 79 / FADM Date: 10/27/24 Loc: HO.MRI Attending Dr: Destiney Palacios MD Ordering Physician: Destiney Palacios MD Date of Service: 10/27/24 Procedure(s): MR pelvis wo/w con Accession Number(s): [id number] cc: Destiney Palacios MD; Angeline Klein CLINICAL [...] 10/27/24 1515 DD/ 1514 TD/TT: 10/27/24 1514 Product Development Specialist: us [facility] External Provider IMG MRI PROCEDURES Edited Result - Final * IR Nephrostomy Tube Change (09/24/2024 1:12 PM EST) Anatomical Region Laterality Modality Body X-Ray Angiograph y 09/24/2024 1:12 PM EST Narrative 09/25/2024 5:28 PM EST ? [facility] ?[address] ?[place] [address] ?Interventional Radiology Rpt ? Signed ? Patient: Altaf Alba ?MR#: [id number] ?? 260 ? : 1945 ?Acct:[id number] ? Age/Sex: 79 / F ?ADM Date: 09/24/24 ? Loc: HO.SSS ? Attending Dr: Severo Blair MD ? Ordering Physician: Severo Blair MD ?? Date of Service: 09/24/24 ?? Procedure(s): IR nephrostomy tube change ?? Accession Number(s): [id number] ? cc: Severo Blair MD; Angeline Klein [...] over ?? the wire. A new 8 Macedonian locking pigtail catheter was advanced over the [...] and over the wire. A new 8 Macedonian locking pigtail catheter was ?? advanced over [...] DD/ 1312 ? TD/TT: 09/24/24 1413 ? Product Development Specialist: ? Procedure Note Bayron, Charlie - 09/25/2024 [place] [address] Interventional Radiology Rpt Signed Patient: Altaf Alba#: [id number] 260 : 6Acct:[id number] Age/Sex: 79 / FADM Date: 09/24/24 Loc: HO.[facility] Attending Dr: Severo Blair MD Ordering Physician: Severo Blair MD Date of Service: 09/24/24 Procedure(s): IR nephrostomy tube change Accession Number(s): [id number] cc: Severo Blair MD; Angeline Klein FLUOROSCOPIC [...] and over the wire. A new 8 Macedonian locking pigtail catheter was advanced over the [...] and over the wire. A new 8 Macedonian locking pigtail catheter was advanced over the [...] 09/25/24 1725 DD/ 1312 TD/TT: 09/24/24 1413 Product Development Specialist: [facility] External Provider IMG IR PROCEDURES Final Result [...] ?? Timoteo SAMPSON et al. SHARYN. 2013;310(19): 7704-8761 ?? (http://Replise.GBooking/faq/OGU858) Non-HDL Cholesterol 116 <130 mg/dL (calc) [facility] Comment: For patients with diabetes plus 1 major ASCVD risk ?? factor, treating to a non-HDL-C goal of <100 mg/dL ?? (LDL-C of <70 mg/dL) is considered a therapeutic ?? option. Triglycerides 116 <150 mg/dL [facility] 01/22/2021 9:15 AM EDT Angeline Klein MD LAB BLOOD ORDERABLES Final Res ult Performing Organization Address [facility] de Phone Number [facility] [address] * HEPATITIS A,B,C PROFILE (08/22/2019 1:30 PM EST) HEPATITIS B CORE ANTIBODY NONREACTIVE NONREACTIVE [facility] HEPATITIS B INTERPRETATION SEE NOTE [facility] Comment:Negative for Hepatit is B. HEPATITIS B SURFACE ANTIBODY NONREACTIVE NONREACTIVE [facility] Comment:NONREACTIVE: < 8.00 mIU/mL HEPATITIS B SURFACE ANTIGEN NEGATIVE NEGATIVE [facility] HEPATITIS C ANTIBODY NONREACTIVE NONREACTIVE [facility] Comment: Antibodies to HCV not detected; does not exclude early acute HCV infection. 08/22/2019 1:30 PM EST Historical Provider HISTORICAL/NON ORDERABLE LABS Final Result Performing Organization Address [facility] de Phone Number [facility] [address] from Last 3 Months or Most Recently Relevant to Health Maintenance Insurance [facility] Care Teams Exercise Instructor Relationship Specialty Start Date End Date Angeline Klein MD [address] [place] [address] PCP - General Family Medicine 08/21/20
--- OUTSIDE RECORDS SUMMARY | 2024-12-23 11:30 | XMS_ITS | Clinical Summary ---
Author Organization [facility] Facility Address [address] [address] Care Team Providers Care Business Data Analyst Name Role Phone Unavailable Primary Care Provider [...] and prn CP/JONES/LAWLER Non smoking patient. Immunizations Immunization Administration Dates Next Due Influenza Split 05/31/2013,05/22/2012 [...] Due Date Last Done Comments Pneumococcal Vaccine: 50+ Years (3 of 3 - PCV) 12/14/2022 12/14/2021, 06/19/2014 Influenza Vaccine (Season Ended) 2025 06/21/2018, 06/20/2017, 06/09/2016, Additional history exists Pneumococcal Vaccine: Peds (0 to 5 Years) and At-Risk Patients (6 to 49 Years) Discontinued 12/14/2021, 06/19/2014 Hepatitis B Vaccine Aged Out No longe r eligible based on patient's age to complete this topic Insurance [facility] Medicare
--- OUTSIDE RECORDS SUMMARY | 2024-12-23 11:30 | XMS_ITS | Encounter Summary ---
Author Organization [employer] Address [address] [facility] 7t [place] [address] Care Team Providers Care Audio Visual Facilities Engineer Name Role Phone Angeline Klein MD Primary Care Provider [phone] Encounter Details Date Type Department Care Team (Late st Contact Info) Description 05/10/2024 Orders Only [facility] MEDICINE [address] [place], [place] [phone] Angeline Klein MD 230 [place] [address] Oral thrush (Primary Dx) Social History Tobacco [...] documented as of this encounter Care Teams Audio Visual Facilities Engineer Relationship Specialty Start Date End Date Angeline Klein MD [address] [place] [address] PCP - General Family Medicine 08/21/20 documented as of this encounter
--- OUTSIDE RECORDS SUMMARY | 2024-12-23 11:31 | XMS_ITS | Encounter Summary ---
Author Organization [employer] [facility] Address [address] [facility] 7t [place] [address] Care Team Providers Care Slope Tender Name Role Phone Angeline lKein MD Primary Care Provider [phone] Encounter Details Date Type Department Care Team (Late st Contact Info) Description 04/05/2023 Orders Only [facility] MEDICINE [address] [place], [place] [phone] Angeline Klein MD [address] [place], [place] [phone] Primary osteoarthritis of both hips (Primary Dx); [...] neck documented in this encounter Care Teams Slope Tender Relationship Specialty Start Date End Date Angeline Klein MD [address] [place], [place] [phone] PCP - General Family Medicine 08/21/20 documented as of this encounter
--- OUTSIDE RECORDS SUMMARY | 2024-12-23 11:31 | XMS_ITS | Encounter Summary ---
Author Organization [employer] Address [address] [facility] 7t [place] [address] Care Team Providers Care Gravel Weigher Name Role Phone Angeline Klein MD Primary Care Provider [phone] Reason for Visit * Reason Onset Date Comments Referral 04/04/2023 Encounter Details Date Type Department Care Team ([facility] st Contact Info) Description 04/04/2023 Telephone [facility] MEDICINE [address] [place] [address] Angeline Klein MD [address] [place] [address] Referral Social History Tobacco Use Types Packs/Day [...] 11:18 AM EDT TC placed to pt [phone] in regards to below message however number is OOS. RN called pt's OPHELIA Larson [phone] who was able to confirm the pt DOES want to go to [facility] pain management. RN informed[facility]NA PCP would place referral today. OPHELIA Larson also provided RN w/ updated number for the pt ([phone]). RN has updated pt's chart. Please place referral to [facility] pain management. * Telephone Encounter - Mary Devon - 04/04/2023 2:43 PM EDT Tc from kelly with [facility] requesting a new referral for pain management. documented in this encounter Plan of Treatment Not on file documented as of this encounter Visit Diagnoses Not on filedocumented in this encounter Care Teams Gravel Weigher Relationship Specialty Start Date End Date Angeline Klein MD [address] [place] [address] PCP - General Family Medicine 08/21/20 documented as of this encounter
--- OUTSIDE RECORDS SUMMARY | 2024-12-23 11:31 | XMS_ITS | Data Portability ---
Author Organization [facility] [employer] [place], [place] in - [facility] Address [address] [place] [id number] Care Team Providers Care Sewing Machine Operator Semiautomatic Name Role Phone HIM [facility] OTHER [facility] OTHER [phone] Assessment No assessment recorded. Plan of Treatment Reminders Order Date Submit Date Provider Last Modified By Organization Details Last Modified Time Details Appointments None recorded. Lab rapid strep group A, throat 2023 024 jessica [facility], [address] [place] [address], [phone] 12:54:14 Referral None recorded. Procedures None recorded. Surgeries None recorded. Imaging None recorded. Medication Orders nystatin 100,000 unit/mL oral suspension 2023 024 [id number], [address] [place], [place], [phone], 12:54:22 Patient TargetsNo targets recorded. Patient InstructionsNo instructions recorded. Reason for Referral None Reported. Results Created Date Observation Date Name Description Value Unit Range Abnormal Flag Note LastModifiedBy Organization Detail LastModifiedTime 02/12/20 24 02/12/2024 rapid strep group A, throa t Strep negati ve Not Available [address], [phone] 02/12/2024 12:52:54 Result Notes None recorded. Medical Equipment None Reported. Allergies Allergen ID Allergen Name Allergen Category Reaction Reaction Severity Criticality Documentation Date Start Date Code Code System Note Provider Name and Address Organization Details Recorded Time 5739 aspirin medicatio n Not available Not available Not available 04/10/2024 1191 RxNorm Not Available [facility] - production 04:12:42 5740 ibuprofen medicatio n Not available Not available Not available 04/10/2024 5640 RxNorm Not Available [facility] - production 4 04:12:42 5741 morphine medicatio n Not available Not available Not available 04/10/2024 7052 RxNorm Not Available [facility] - production 4 04:12:42 5742 Dupixent medicatio n Not available Not available Not available 04/10/2024 17269 02 RxNorm COLLEEN IVAN MD [address] [place] [address],[address], [place], [phone], [facility], [employer] 4 09:07:46 5743 naproxen medicatio n Not available Not available Not available 04/10/2024 7258 RxNorm COLLEEN IVAN MD [address] [place] [address],[address], [place], [phone], [facility], [employer] 4 09:08:04 5744 oxycodone medicatio n Not available Not available Not available 04/10/2024 7804 RxNorm COLLEEN IVAN MD [address] [place] [address],[address], [place], [address], [employer] 4 09:08:18 Medications Name Sig Start Date [...] /min 106 mm[Hg] 66 mm[Hg] Not Available [employer] - production 4 10:22:14 Date Recorded Oxygen saturation Oxygen saturation in Arterial blood by Pulse oximetry Body temperature Body weight Heart rate Body height Respiratory rate Systolic blood pressure Diastolic blood pressure Provider Name and Address Organization Details Last Updated DateTime 4 98 % 98 % 99.1 [degF] 49532 g 90 /min 152.4 cm 14 /min 120 mm[Hg] 80 mm[Hg] Not Available [employer] - production 4 09:29:14 Social History None recorded. Functional Status None recorded. Mental Status None recorded. Family History Nothing Reported. Medical History No medical history recorded. Gynecological HistoryNo gynecological history recorded. Obstetrics History GPAL:G 0 P 0 0 0 0 Past Encounters Encounter ID Performer Location Encounter Start Date Encounter Closed Date Diagnosis/Indication Diagnosis SNOMED-CT Code Diagnosis ICD10 Code Diagnosis Note [id number] Dominick Walker MD Main - [facility] [address] [place] [phone] 02/12/2024 10:22:08 02/12/2024 16:37:24 Candidiasis of mouth 74689910 B37.0 Sent out for rapid strep and refill of Nystatin. [id number] COLLEEN IVAN MD Main - [facility] [address] [place] [phone] 04/10/2024 09:28:55 04/10/2024 11:00:49 Attention to nephrostomy tube 567871656 Z43.6 Evaluation in the field was performed by my remote sensing advisor colleague, as noted above, I provided real-time direction and supervisio n for this visit. The evaluation revealed a 78-year-ol d female, status post bilateral nephrostom y tube placement on the or 17 of March, with concerns that the dressing has not been changed since. She denies bleeding, drainage, fever, chills, nausea, and vomiting. Per discussion with the patient via a Dutch interprete r, she reports that she has a telehealth visit with Urology on April 12. VSS.Per discussion and per photo view, dressing in place, dry, clean with no urine or blood saturation Impression :B/L nephrostom y tube in place Plan:Since the dressing was intact, the remote sensing advisor did not feel comfortabl e changing it [...] Brooks Member ID Guarantor Name 02/12/2024 1 [facility] - DOS ON OR AFTER 2022 - DUAL ELIGIBLE - RETIREMENT OPTIONS AND ONE CARE (MEDICARE REPLACEMENT/ADV ANTAGE - HMO) Altaf Alba [id number] Altaf Alba 04/10/2024 1 [facility] - DOS ON OR AFTER 2022 - DUAL ELIGIBLE - RETIREMENT OPTIONS AND ONE CARE (MEDICARE REPLACEMENT/ADV ANTAGE - HMO) Altaf Alba [id number] Altaf Alba Notes Date Note Type Note [...] in clear full sentences. Pt seen at [facility] 01/08 for similar sx and given Nystatin for thrush as has hx of this. Pt unable to come into office. Pt agrees to [facility] for eval. ................... ................... ................... ................... ................... ................... ................... ........ CRC Nurse Triage Notes (Marilia Bee): Comments: CRC RN DID NOT NEED FURTHER INFO Finance Business Partner POC Test Results from Yovany Sesay BLAIR Rapid strep test (1) [10:30] Strep: - ................... ................... ................... ................... ................... ................... ................... ........ Finance Business Partner Note From Yovany Sesay: Pt reports off [...] exam. No LE edema. Rapid strep negative. [facility] contacted and will send nystatin rx to pharmacy. Pt instructed to f/u with PCP as they requested. Red flags reviewed. ................... ................... ................... ................... ................... ................... ................... ........ Disposition: Fulfilled Dominick Walker MD [address] [facility], [place], [address], [email or web address] 02/12/2024 12:54:18 04/10/2024 text/html CRC Nurse Triage Notes (Tori Nolasco): Reason For Request: Wound care Chief Complaints: Wound Care PMH: COPD/Asthma, Hypertension, Cancer, Heart Disease Allergies: Aspirin, Ibuprofen, Morphine Other Allergies: dupixent, MS, ASA, naproxen, oxycodone, mult others that she can't recall Comments: Referral taken via Patient Accounts Manager [id number]. Member calling in to place a referral, [...] ................... ................... ................... ................... ................... ................... ........ Finance Business Partner Note From Jelani Geller: Patient conscious alert [...] moisture, discoloration, odor, discharge, or other concern. [facility] agrees encourages patient to follow up with urology, patient has an appointment April 12. Red flags patient education discussed. Patient demonstrates understanding of care and plan. Finance Business Partner Allergies: Aspirin, Ibuprofen, Morphine ................... ................... ................... ................... ................... ................... ................... ........ Disposition: Chantal IVAN MD [address] [facility],[address], [place], [phone], RADHA COELHO 04/10/2024 10:27:47 OBGyn Episode No OBEpisode recorded.
--- OUTSIDE RECORDS SUMMARY | 2024-12-23 11:31 | XMS_ITS | Encounter Summary ---
Author Organization [employer] Address [address] [facility] [address] [place] [address] Care Team Providers Care Spray Gunner Name Role Phone Angeline Klein MD Primary Care Provider [phone] Encounter Details Date Type Department Care Team (Late st Contact Info) Description 02/01/2023 Abstract [facility] MEDICINE [address] [place], [place] [phone] Angeline Klein MD [address] [place] [address] Social History Tobacco Use Types Packs/Day Years [...] on filedocumented in this encounter Care Teams Spray Gunner Relationship Specialty Start Date End Date Angeline Klein MD [address] [place], [place] [phone] PCP - General Family Medicine 08/21/20 documented as of this encounter
--- OUTSIDE RECORDS SUMMARY | 2024-12-23 11:31 | XMS_ITS | Encounter Summary ---
Author Organization [employer] Address [address] [facility] [address] [place] [address] Care Team Providers Care Road Freight Brake Coupler Name Role Phone Angeline Klein MD Primary Care Provider [phone] Reason for Visit * Reason Onset Date Comments Appointment Request 05/22/2023 Encounter Details Date Type Department Care Team ([facility] st Contact Info) Description 05/22/2023 Telephone [facility] MEDICINE [address] [place] [address] Angeline Klein MD [address] [place] [address] Appointment Request Social History Tobacco Use Types [...] @ 2:30 pm. Please contact pt at [phone] documented in this encounter Plan of Treatment Not on file documented as of this encounter Visit Diagnoses Not on filedocumented in this encounter Care Teams Road Freight Brake Coupler Relationship Specialty Start Date End Date Angeline Klein MD [address] [place] [address] PCP - General Family Medicine 08/21/20 documented as of this encounter
--- OUTSIDE RECORDS SUMMARY | 2024-12-23 11:31 | XMS_ITS | Encounter Summary ---
Author Organization [employer] Address [address] [facility] [address] [place] [address] Care Team Providers Care Debeaker Name Role Phone Angeline Klein MD Primary Care Provider [phone] Encounter Details Date Type Department Care Team ([facility] st Contact Info) Description 09/23/2022 Telephone [facility] MEDICINE [address] [place], [place] [phone] Angeline Klein MD [address] [place] [address] Social History Tobacco Use Types Packs/Day Years [...] on filedocumented in this encounter Care Teams Debeaker Relationship Specialty Start Date End Date Angeline Klein MD [address] [place] [address] PCP - General Family Medicine 08/21/20 documented as of this encounter
== END 2024-12-23 10:10 | disposition home or self-care (01) ==
LOC: HO.US 10:09
PROVIDERS: PCP General Practice; Visit Provider Internal Medicine
DX: N20.0 Calculus of kidney (principal); N17.9 Acute kidney failure, unspecified; R79.89 Other specified abnormal findings of blood chemistry
CPT/HCPCS: 76775

== ENCOUNTER → 2024-12-23 10:13 | Outpatient (BNV) | payer OTHER, SELFPAY | PROVIDERS: PCP General Practice; Visit Provider Radiology Diagnostic Radiology | DX: N13.30 Unspecified hydronephrosis (principal) | CPT/HCPCS: 76775 ==

== ENCOUNTER 2024-12-24 12:18 | Outpatient (REF) | payer OTHER, SELFPAY ==
--- OUTSIDE RECORDS SUMMARY | 2024-12-25 14:35 | XMS_ITS | Encounter Summary ---
Author Organization [employer] Address [address] [facility] [address] [place] [address] Care Team Providers Care Liquor Commissioner Name Role Phone Angeline Klein MD Primary Care Provider [phone] Reason for Visit * Reason Onset Date Comments Med Refill 12/20/2024 Encounter Details Date Type Department Care Team ([facility] st Contact Info) Description 12/20/2024 Telephone [facility] MEDICINE [address] [place] [address] Angeline Klein MD [address] [place], [place] [phone] Med Refill Social History Tobacco Use Types [...] the past 12 months, has t he [employer], gas, oil or water company threatened to [...] was discontinued. * Telephone Encounter - Melina Sctot - 12/20/2024 11:11 AM EDT TC from pt requesting medication refill. Medications needing refill : hydrOXYzine HCl (Atarax) 25 MG tablet To be sent to: [id number] - [place] - [address] [facility] documented in this encounter Plan of Treatment Not on file documented as of this encounter Visit Diagnoses Not on filedocumented in this encounter Additional Health Concerns Assessment Noted Time PHQ-9 Depression Total Score: 4 12/26/19 24 10:32 AM EDT documented as of this encounter Care Teams Liquor Commissioner Relationship Specialty Start Date End Date Angeline Klein MD [address] [place] [address] [place] [address] PCP - General Family Medicine 08/21/20 documented as of this encounter
--- OUTSIDE RECORDS SUMMARY | 2024-12-25 14:35 | XMS_ITS | Encounter Summary ---
Author Organization [employer] Address [address] [facility] 7[address] [place] [address] Care Team Providers Care Junior Paralegal Name Role Phone Angeline Klein MD Primary Care Provider [phone] Encounter Details Date Type Department Care Team (Late st Contact Info) Description 04/12/2024 Orders Only [facility] MEDICINE [address] [place], [place] [phone] Guadalupe Garrido MD [address] [place] [address] Social History Tobacco Use Types Packs/Day Years [...] documented as of this encounter Care Teams Junior Paralegal Relationship Specialty Start Date End Date Angeline Klein MD [address] [place] [address] PCP - General Family Medicine 08/21/20 documented as of this encounter
--- OUTSIDE RECORDS SUMMARY | 2024-12-25 14:35 | XMS_ITS | Clinical Summary ---
Author Organization [facility] Address [address] [address] Care Team Providers Care Senior Software Qa Engineer Name Role Phone Unavailable Primary Care Provider [...]
--- OUTSIDE RECORDS SUMMARY | 2024-12-25 14:35 | XMS_ITS | Encounter Summary ---
Author Organization [employer] Address [address] [facility] [address] [place] [address] Care Team Providers Care Call Manager Name Role Phone Angeline Klein MD Primary Care Provider [phone] Reason for Visit * Reason Onset Date Comments Medication Question 12/23/2024 Encounter Details Date Type Department Care Team ([facility] st Contact Info) Description 12/23/2024 Refill [facility] MEDICINE [address] [place] [address] Angeline Klein MD [address] [place] [address] Allergic eosinophilia Social History Tobacco Use Types [...] the past 12 months, has t he [employer], [employer], oil or water company threatened to shut [...] documented as of this encounter Care Teams Call Manager Relationship Specialty Start Date End Date Angeline Klein MD [address] [place] [address] PCP - General Family Medicine 08/21/20 documented as of this encounter
--- OUTSIDE RECORDS SUMMARY | 2024-12-25 14:35 | XMS_ITS | Encounter Summary ---
Author Organization [employer] Address [address] [facility] [address] [place] [address] Care Team Providers Care Mail Handlers Supervisor Name Role Phone Angeline Klein MD Primary Care Provider [phone] Reason for Visit * Reason Onset Date Comments Appointment Request 05/22/2023 Encounter Details Date Type Department Care Team ([facility] st Contact Info) Description 05/22/2023 Telephone [facility] MEDICINE [address] [place] [address] Angeline Klein MD [address] [place] [address] Appointment Request Social History Tobacco Use Types [...] encounter Miscellaneous Notes * Telephone Encounter - Vianyak Baldwin - 05/22/2023 9:49 AM EDT Tc from pt requesting to r/s appt with provider on 05/22/2023 for Follow up @ 2:30 pm. Please contact pt at [phone] documented in this encounter Plan of Treatment Not on file documented as of this encounter Visit Diagnoses Not on filedocumented in this encounter Care Teams Mail Handlers Supervisor Relationship Specialty Start Date End Date Angeline Klein MD [address] [place] [address] PCP - General Family Medicine 08/21/20 documented as of this encounter
--- OUTSIDE RECORDS SUMMARY | 2024-12-25 14:35 | XMS_ITS | Encounter Summary ---
Author Organization [employer] Address [address] [facility] [address] [place] [address] Care Team Providers Care Director Clinical Pharmacology Name Role Phone Angeline Klein MD Primary Care Provider [phone] Reason for Visit * Reason Onset Date Comments Nurse Triage 03/29/2024 Encounter Details Date Type Department Care Team ([facility] st Contact Info) Description 03/29/2024 Telephone [facility] MEDICINE [address] [place] [address] Angeline Klein MD [address] [place] [address] Nurse Triage Social History Tobacco Use Types [...] 03/29/2024 3:15 PM EDT Triage call with [place] [facility] Assistant [place] [id number] Pt reports fatigue for last 3 days. [...] Reason: Caller denied all higher acuity questions Central African Speaker (Accepted Behavioral Assistant) documented in this encounter Plan of Treatment Not on file documented as of this encounter Visit Diagnoses Not on filedocumented in this encounter Additional Health Concerns Assessment Noted Time PHQ-9 Depression Total Score: 4 12/26/19 24 10:32 AM EDT documented as of this encounter Care Teams Director Clinical Pharmacology Relationship Specialty Start Date End Date Angeline Klein MD [address] [place] [address] PCP - General Family Medicine 08/21/20 documented as of this encounter
--- OUTSIDE RECORDS SUMMARY | 2024-12-25 14:35 | XMS_ITS | Clinical Summary ---
Author Organization [employer] Address 75 [facility] 7t [place] [address] Care Team Providers Care Steam Gigger Name Role Phone Angeline Klein MD Primary Care Provider [phone] Allergies Active Allergy Reactions Criticality Noted Date [...] BEDTIME 90 tablet 3 Active nystatin (Mycostatin) 067360 UNIT/ML suspension Take 1 mL (100,000 Units) [...] dose amlodipine -needs [facility] --request today to public health staff nurse to start process for this. -pt on [...] Continue followup with oncology and urology at [facility] Has next biopsy planned for Aug 19, [address] Blair Assessment & Plan (12/26/2023 11:21 AM EDT): Continue followup with oncology and urology at [facility] Disease is spreading, will discuss therapeutic options with Dr Palacios tomorrow Assessment & Plan (05/01/2023 4:22 PM EDT): Continue followup with oncology and urology at [facility] No signs of infection or complication currently [...] scheduled MRI with patient, Dec 2 at [facility], so that she can proceed with treatment [...] Case has been discussed with ER at [facility]>. Encounters Date Type Department Care Team Description 12/23/2024 Orders Only [facility] External Provider, [facility] 12/23/2024 Refill [facility] [address] [place] [address] Angeline Klein MD Allergic eosinophilia 12/20/2024 Telephone [facility] [address] [place] [address] Angeline Klein MD Med Refill 12/17/2024 Telephone [facility] [address] [place] [address] Angeline Klein MD Nurse Triage 11/29/2024 9:45 AM EDT Office Visit [facility] [address] [place] [address] Angeline Klein MD Localized edema (Primary Dx); Dietary counseling; Exercise counseling; Underweight; Inadequate housing utilities; Protein-calorie malnutrition, unspecified severity (CMS/HCC); 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) 11/29/2024 Travel 11/26/2024 Telephone [facility] [address] [place], [place] [phone] Angeline Klein MD Nurse Triage 10/27/2024 Orders Only [facility] External Provider, [facility] from Last 3 Months Immunizations Name [...] Procedure Name Priority Date/Time Associated Diagnosis Comments US RENAL BI Routine 12/23/2024 11:08 AM EDT XR CHEST 2 VIEWS Routine 11/20/2024 5:[address] ABDOMEN PELVIS W CONTRAST Routine 11/20/2024 1:06 PM EDT MR PELVIS W AND WO CONTRAST Routine 10/27/2024 3:14 PM EST LIPID PANEL, STANDARD Routine 01/22/2021 9:15 AM EDT ZZZ HISTORICAL HEPATITIS A,B,C PROFILE Routine 08/22/2019 1:30 PM EST from Last 3 Months or Most Recently Relevant to Health Maintenance Results * US RENAL BI (12/23/2024 11:08 AM EDT) Anatomical Region Laterality Modality Abdomen Ultrasound 12/23/2024 11:0 8 AM EDT Narrative 12/23/2024 11:51 AM EDT ? [facility] ?[address] ?[place] [address] ? Ultrasound Report ? Signed ? Patient: Alba,Altaf ?MR#: [id number] ?? 260 ? : 1945 ?Acct:[id number] ? Age/Sex: 79 / F ?ADM Date: 12/23/24 ? Loc: HO.US ? Attending : Destiney Palacios MD ? Ordering Physician: Severo Blair MD ?? Date of Service: 12/23/24 ?? Procedure(s): US renal BI ?? Accession Number(s): [id number] ? cc: Severo Blari MD; Angeline Klein ? EXAMINATION: ??US KIDNEY BILATERAL ? HISTORY: N20.0 - Calculus of kidney ? TECHNIQUE: Real-time grayscale ultrasound imaging of the kidneys was ?? performed and images were reviewed. ? COMPARISON: Correlation is made with a CT of the abdomen with contrast ?? dated 11/20/2024. ? FINDINGS: ? Right kidney: ??The right kidney measures 10.0 x 5.7 x 5.1 cm. ??Renal ?? parenchymal echotexture and thickness are normal. ??There are no masses. ?? There is moderate hydronephrosis. A nephrostomy tube is seen in place. ?? No definite calculi are identified. ? Left Kidney: ??The left kidney measures 12.9 x 5.6 x 5.7 cm. ??There is ?? renal cortical thinning. ??There are no masses. ??There is severe ?? hydronephrosis. The nephrostomy tube is seen. ? US/US renal BI ?? IMPRESSION: ? 1. Moderate right hydronephrosis. Nephrostomy tube in place. ? 2. Severe left hydronephrosis with renal cortical thinning. The ?? left-sided nephrostomy tube which was present on the prior CT scan is ?? not visualized. ? Electronically signed by: ??Bennett Alejandro MD ??12/23/2024 11:48 AM EDT ? Dictated By: ?Bennett Alejandro MD ? Signed By: ?<Electronically signed by Bennett Alejandro MD in OV> ?12/23/24 1148 ? DD/ 1108 ? TD/TT: 12/23/24 1119 ? It Service Manager: ? Procedure Note Bayron, Image - 12/23/2024 [place] [address] Ultrasound Report Signed Patient: Altaf AlbaMR#: [id number] 260 : 6Acct:[id number] Age/Sex: 79 / FADM Date: 12/23/24 Loc: HO.US Attending Dr: Destiney Palacios MD Ordering Physician: Severo Blair MD Date of Service: 12/23/24 Procedure(s): US renal BI Accession Number(s): [id number] cc: Severo Blair MD; Angeline Klein EXAMINATION: US KIDNEY BILATERAL HISTORY: N20.0 - Calculus of kidney TECHNIQUE: Real-time grayscale ultrasound imaging of the kidneys was performed and images were reviewed. COMPARISON: Correlation is made with a CT of the abdomen with contrast dated 11/20/2024. FINDINGS: Right kidney: The right kidney measures 10.0 x 5.7 x 5.1 cm. Renal parenchymal echotexture and thickness are normal. There are no masses. There is moderate hydronephrosis. A nephrostomy tube is seen in place. No definite calculi are identified. Left Kidney: The left kidney measures 12.9 x 5.6 x 5.7 cm. There is renal cortical thinning. There are no masses. There is severe hydronephrosis. The nephrostomy tube is seen. US/US renal BI IMPRESSION: 1. Moderate right hydronephrosis. Nephrostomy tube in place. 2. Severe left hydronephrosis with renal cortical thinning. The left-sided nephrostomy tube which was present on the prior CT scan is not visualized. Electronically signed by: Bennett Alejandro MD 12/23/2024 11:48 AM EDT Dictated By: Bennett Alejandro MD Signed By: <Electronically signed by Bennett Alejandro MD in OV> 12/23/24 1148 DD/ 1108 TD/TT: 12/23/24 1119 It Service Manager: [facility] External Provider IMG US PROCEDURES Edited Result - Final * XR Chest 2 Views (11/20/2024 5:14 PM EDT) Anatomical Region Laterality Modality Chest Radiographic Manju ging 11/20/2024 5:14 PM EDT Narrative 11/20/2024 5:15 PM EDT ? [facility] ?[address] ?[place] [address] ?XRay Report ? Signed ? Patient: Alba,Altaf ?MR#: [id number] ?? 260 ? : 1945 ?Acct:[id number] ? Age/Sex: 79 / F ?ADM Date: 03/12/25 ? Loc: HO.CT ? Attending Dr: Destiney Palacios MD ? Ordering Physician: Endy Thakkar MD ?? Date of Service: 11/20/24 ?? Procedure(s): XR chest 2V ?? Accession Number(s): [id number] ? cc: Angeline Klein; Endy Thakkar MD [...] in OV> ? 11/20/24 1715 ? DD/ 1714 ? TD/TT: 11/20/241713 ? It Service Manager: ? Procedure Note Charlie Verma - 11/20/2024 [place] [address] XRay Report Signed Patient: Altaf AlbaMR#: [id number] 260 : 6Acct:[id number] Age/Sex: 79 / FADM Date: 11/20/24 Loc: HO.CT Attending Dr: Destiney Palacios MD Ordering Physician: Endy Thakkar MD Date of Service: 11/20/24 Procedure(s): XR chest 2V Accession Number(s): [id number] cc: Angeline Klein; Endy Thakkar MD CLINICAL [...] in OV> 11/20/241714 DD/ 13 TD/TT: 11/20/241713 It Service Manager: [facility] External Provider IMG XR PROCEDURES Final Result * CT Abdomen Pelvis w/ Contrast (11/20/2024 1:06 PM EDT) Anatomical Region Laterality Modality Body, Pelvis, Abdomen Computed T omography 11/20/2024 1:06 PM EDT Narrative 11/20/2024 1:08 PM EDT ? [facility] ?[address] ?[place] [address] ? CT Scan Report ? Signed ? Patient: Altaf Alba ?MR#: [id number] ?? 260 ? : 1945 ?Acct:[id number] ? Age/Sex: 79 / F ?ADM Date: 11/20/24 ? Loc: HO.CT ? Attending Dr: Destiney Palacios MD ? Ordering Physician: Destiney Palacios MD ?? Date of Service: 11/20/24 ?? Procedure(s): CT abdomen pelvis w IV con ?? Accession Number(s): [id number] ? cc: Destiney Palacios MD; Angeline Klein ? Report Number: ?? [id number]: Total DLP = 1010.00 mGy-cm ? CLINICAL [...] image 15). No hydroureter. ? Normal appendix. Jnbe-cw-ndlvmsym colonic stool burden. No bowel ?? obstruction. [...] DD/ 1306 ? TD/TT: 11/20/24 1306 ? It Service Manager: ? Procedure Note Donotuseinterpreter, Image - 11/20/[address] [place] [address] [address] Scan Report Signed Patient: Altaf AlbaMR#: [id number] 260 : 6Acct:[id number] Age/Sex: 79 / FADM Date: 11/20/24 Loc: HO.CT Attending Dr: Destiney Palacios MD Ordering Physician: Destiney Palacios MD Date of Service: 11/20/24 Procedure(s): CT abdomen pelvis w IV con Accession Number(s): [id number] cc: Destiney Palacios MD; Angeline Klein Report Number: [id number]: Total DLP = 1010.00 mGy-cm CLINICAL HISTORY: [...] 3, image 15). No hydroureter. Normal appendix. Xcxm-yt-qpsffedm colonic stool burden. No bowel obstruction. Mild [...] 11/20/24 1307 DD/ 1306 TD/TT: 11/20/24 1306 It Service Manager: [facility] External Provider IMG CT PROCEDURES Final Result * MR Pelvis w/ and w/o Contrast (10/27/2024 3:14 PM EST) Anatomical Region Laterality Modality Body, Pelvis Magnetic Resonan ce 10/27/2024 3:14 PM EST Narrative 10/27/2024 3:15 PM EST ? [facility] ?[address] ?[place] [address] ? Magnetic Resonance Report ? Signed ? Patient: Alba,Altaf ?MR#: [id number] ?? 260 ? : 1945 ?Acct:[id number] ? Age/Sex: 79 / F ?ADM Date: 02/16/25 ? Loc: HO.MRI ? Attending Dr: Destiney Palacios MD ? Ordering Physician: Destiney Palacios MD ?? Date of Service: 10/27/24 ?? Procedure(s): MR pelvis wo/w con ?? Accession Number(s): [id number] ? cc: Destiney Palacios MD; Angeline Klein [...] signed by Scar Correa MD in OV> ?10/27/241514 ? DD/ 13 ? TD/TT: 10/27/24 1514 ? It Service Manager: ? Procedure Note Donotuseinterpreter, Image - 10/27/[address] [address] Magnetic Resonance Report Signed Patient: Altaf AlbaMR#: [id number] 260 : 1945cct:[id number] Age/Sex: 79 / FADM Date: 10/27/24 Loc: HO.MRI Attending Dr: Destiney Palacios MD Ordering Physician: Destiney Palacios MD Date of Service: 10/27/24 Procedure(s): MR pelvis wo/w con Accession Number(s): [id number] cc: Destiney Palacios MD; Angeline Klein CLINICAL [...] signed by Scar Correa MD in OV> 10/27/241514 DD/ 13 TD/TT: 10/27/241513 It Service Manager: [facility] External Provider IMG MRI PROCEDURES Edited Result - Final * LIPID PANEL, STANDARD (01/22/2021 9:15 AM [...] ?? Timoteo SAMPSON et al. SHARYN. 2013;310(19): 2831-4089 ?? (http://education.Polybiotics/faq/IEW096) Non-HDL Cholesterol 116 <130 mg/dL (calc) [facility] Comment: For patients with diabetes plus 1 major ASCVD risk ?? factor, treating to a non-HDL-C goal of <100 mg/dL ?? (LDL-C of <70 mg/dL) is considered a therapeutic ?? option. Triglycerides 116 <150 mg/dL [facility] 01/22/2021 9:15 AM EDT us Angeline Klein MD LAB BLOOD ORDERABLES Final Res ult Performing Organization Address [facility] Co de Phone Number [facility] [address] * HEPATITIS A,B,C PROFILE (08/22/2019 1:30 [...] ORDERABLE LABS Final Result Performing Organization Address [facility] de Phone Number [facility] [address] from Last 3 Months or Most Recently Relevant to Health Maintenance Insurance [facility] Care Teams Steam Gigger Relationship Specialty Start Date End Date Angeline Klein MD [address] [place] [address] PCP - General Family Medicine 08/21/20
--- OUTSIDE RECORDS SUMMARY | 2024-12-25 14:35 | XMS_ITS | Encounter Summary ---
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
--- OUTSIDE RECORDS SUMMARY | 2024-12-25 14:35 | XMS_ITS | Encounter Summary ---
Author Organization [employer] [facility] Address 75 [facility] 7t [place] [address] Care Team Providers Care Embroidery Finisher Name Role Phone Angeline Klein MD Primary Care Provider [phone] Encounter Details Date Type Department Care Team (Late st Contact Info) Description 04/05/2023 Orders Only [facility] [address] [place], [place] [phone] Angeline Klein MD [address] [place], [place] [phone] Primary osteoarthritis of both hips (Primary Dx); [...] neck documented in this encounter Care Teams Embroidery Finisher Relationship Specialty Start Date End Date Angeline Klein MD [address] [place], [place] [phone] PCP - General Family Medicine 08/21/20 documented as of this encounter
--- OUTSIDE RECORDS SUMMARY | 2024-12-25 14:35 | XMS_ITS | Encounter Summary ---
Author Organization [employer] Address 75 [facility] 7t [place] [address] Care Team Providers Care Typesetter Perforator Operator Name Role Phone Angeline Klein MD Primary Care Provider [phone] Reason for Visit * Reason Onset Date Comments Referral 04/04/2023 Encounter Details Date Type Department Care Team ([facility] st Contact Info) Description 04/04/2023 Telephone [facility] [address] [place], [place] [phone] Angeline Klein MD [address] [place] [address] Referral Social History Tobacco Use Types Packs/Day [...] 11:18 AM EDT TC placed to pt [phone] in regards to below message however number is OOS. RN called pt's OPHELIA Larson [phone] who was able to confirm the pt DOES want to go to [facility] pain management. RN informedVNA PCP would place referral today. OPHELIA Larson also provided RN w/ updated number for the pt ([phone]). RN has updated pt's chart. Please place referral to [facility] pain management. * Telephone Encounter - Mary Devon - 04/04/2023 2:43 PM EDT Tc from kelly with [facility] requesting a new referral for pain management. documented in this encounter Plan of Treatment Not on file documented as of this encounter Visit Diagnoses Not on filedocumented in this encounter Care Teams Typesetter Perforator Operator Relationship Specialty Start Date End Date Angeline Klein MD [address] [place] [address] PCP - General Family Medicine 08/21/20 documented as of this encounter
--- OUTSIDE RECORDS SUMMARY | 2024-12-25 14:35 | XMS_ITS | Data Portability ---
Author Organization [facility] [employer] [place], [place] - [facility] Address [address] [place] [phone] Care Team Providers Care Family Program Specialist Name Role Phone HIM [facility] OTHER [facility] OTHER Assessment No assessment recorded. Plan of Treatment Reminders Order Date Submit Date Provider Last Modified By Organization Details Last Modified Time Details Appointments None recorded. Lab rapid strep group A, throat 2023 024 jessica [facility], [address] [place] [address], [phone] 12:54:14 Referral None recorded. Procedures None recorded. Surgeries None recorded. Imaging None recorded. Medication Orders nystatin 100,000 unit/mL oral suspension 2023 024 [id number], [address] [place], [place], [phone], 12:54:22 Patient TargetsNo targets recorded. Patient InstructionsNo instructions recorded. Reason for Referral None Reported. Results Created Date Observation Date Name Description Value Unit Range Abnormal Flag Note LastModifiedBy Organization Detail LastModifiedTime 02/12/20 24 02/12/2024 rapid strep group A, throa t Strep negati ve Not Available [address], [phone] 02/12/2024 12:52:54 Result Notes None recorded. Medical [...] Not available Not available Not available 04/10/2024 06172 02 RxNorm COLLEEN IVAN MD [address] [place] [address],[address], [place], [address], [employer] 4 09:07:46 5743 naproxen medicatio n Not available Not available Not available 04/10/2024 7258 RxNorm COLLEEN IVAN MD [address] [place] [address],[address], [place], [phone], [employer], [employer] 4 09:08:04 5744 oxycodone medicatio n Not available Not available Not available 04/10/2024 7804 RxNorm COLLEEN IVAN MD [address] [place] [address],[address], [place], [phone], 1,2,3 [employer] 4 09:08:18 Medications Name Sig Start Date [...] /min 106 mm[Hg] 66 mm[Hg] Not Available [employer] 4 10:22:14 Date Recorded Oxygen saturation Oxygen saturation in Arterial blood by Pulse oximetry Body temperature Body weight Heart rate Body height Respiratory rate Systolic blood pressure Diastolic blood pressure Provider Name and Address Organization Details Last Updated DateTime 4 98 % 98 % 99.1 [degF] 31323 g 90 /min 152.4 cm 14 /min 120 mm[Hg] 80 mm[Hg] Not Available [employer] - [employer] 4 09:29:14 Social History None recorded. Functional Status None recorded. Mental Status None recorded. Family History Nothing Reported. Medical History No medical history recorded. Gynecological HistoryNo gynecological history recorded. Obstetrics History GPAL:G 0 P 0 0 0 0 Past Encounters Encounter ID Performer Location Encounter Start Date Encounter Closed Date Diagnosis/Indication Diagnosis SNOMED-CT Code Diagnosis ICD10 Code Diagnosis Note [id number] Dominick Walker MD Main - [facility] [address] [place] [phone] 02/12/2024 10:22:08 02/12/2024 16:37:24 Candidiasis of mouth 51472213 B37.0 Sent out for rapid strep and refill of Nystatin. [id number] COLLEEN IVAN MD Main - [facility] [address] [place] [phone] 04/10/2024 09:28:55 04/10/2024 11:00:49 Attention to nephrostomy tube [id number] Z43.6 Evaluation in the field was performed by my operations advisor colleague, as noted above, I provided real-time direction and supervisio n for this visit. The evaluation revealed a 78-year-ol d female, status post bilateral nephrostom y tube placement on the or 17 of March, with concerns that the dressing has not been changed since. She denies bleeding, drainage, fever, chills, nausea, and vomiting. Per discussion with the patient via a Senegalese interprete r, she reports that she has a telehealth visit with Urology on April 12. VSS.Per discussion and per photo view, dressing in place, dry, clean with no urine or blood saturation Impression :B/L nephrostom y tube in place Plan:Since the dressing was intact, the operations advisor did not feel comfortabl e changing [...] Brooks Member ID Guarantor Name 02/12/2024 1 [facility] - DOS ON OR AFTER 2022 - DUAL ELIGIBLE - CORRECTION OPTIONS AND ONE CARE (MEDICARE REPLACEMENT/ADV ANTAGE - HMO) Altaf Alba [id number] Altaf Alba 04/10/2024 1 [facility] - DOS ON OR AFTER 2022 - DUAL ELIGIBLE - CORRECTION OPTIONS AND ONE CARE (MEDICARE REPLACEMENT/ADV ANTAGE - HMO) Altaf Alba [id number] Altaf Alba Notes Date Note Type Note [...] clear full sentences. Pt [facility] at [facility] for similar sx and given Nystatin for thrush as has hx of this. Pt unable to come into office. Pt agrees to [facility] for eval. ................... ................... ................... ................... ................... ................... ................... ........ CRC Nurse Triage Notes (Marilia Bee): Comments: CRC RN DID NOT NEED FURTHER INFO Foundry Melt Supervisor POC Test Results from Yovany Sesay BLAIR Rapid strep test (1) [10:30] Strep: - ................... ................... ................... ................... ................... ................... ................... ........ Foundry Melt Supervisor Note From Yovany Sesay: Pt reports off [...] exam. No LE edema. Rapid strep negative. [facility] contacted and will send nystatin rx to pharmacy. Pt instructed to f/u with PCP as they requested. Red flags reviewed. ................... ................... ................... ................... ................... ................... ................... ........ Disposition: Fulfilled Dominick Walker MD [address] [facility],[address], [place], [phone], [email or web address] 02/12/2024 12:54:18 04/10/2024 text/html CRC Nurse Triage Notes (Tori Nolasco): Reason For Request: Wound care Chief Complaints: Wound Care PMH: COPD/Asthma, Hypertension, Cancer, Heart Disease Allergies: Aspirin, Ibuprofen, Morphine Other Allergies: dupixent, MS, ASA, naproxen, oxycodone, mult others that she can't recall Comments: Referral taken via Tool Crib Clerk [id number]. Member calling in to place a referral, [...] ................... ................... ................... ................... ................... ................... ........ Foundry Melt Supervisor Note From Jelani Geller: Patient conscious alert [...] moisture, discoloration, odor, discharge, or other concern. [facility] agrees encourages patient to follow up with urology, patient has an appointment April 12. Red flags patient education discussed. Patient demonstrates understanding of care and plan. Foundry Melt Supervisor Allergies: Aspirin, Ibuprofen, Morphine ................... ................... ................... ................... ................... ................... ................... ........ Disposition: Chantal IVAN MD [address] [facility],[address], [place], [phone], RADHA COELHO 04/10/2024 10:27:47 OBGyn Episode No OBEpisode recorded.
--- OUTSIDE RECORDS SUMMARY | 2024-12-25 14:35 | XMS_ITS | Encounter Summary ---
Author Organization [employer] Address 75 [facility] 7t [place] [address] Care Team Providers Care Pulp Piler Name Role Phone Angeline Klein MD Primary Care Provider [phone] Encounter Details Date Type Department Care Team (Late st Contact Info) Description 03/19/2024 Orders Only [facility] [address] [place], [place] [phone] Angeline Klein MD [address] [place], [place] [phone] Mixed stress and urge urinary incontinence (Primary [...] documented as of this encounter Care Teams Pulp Piler Relationship Specialty Start Date End Date Angeline Klein MD [address] [place] [address] PCP - General Family Medicine 08/21/20 documented as of this encounter
--- OUTSIDE RECORDS SUMMARY | 2024-12-25 14:35 | XMS_ITS | Encounter Summary ---
Author Organization [employer] [facility] Address [address] [facility] 7t [place] [address] Care Team Providers Care Eyelet Cutter Name Role Phone Angeline Klein MD Primary Care Provider [phone] Encounter Details Date Type Department Care Team (Late st Contact Info) Description 08/01/2022 Abstract [facility] [address] [place], [place] [phone] Angeline Klein MD [address] [place], [place] [phone] Social History Tobacco Use Types Packs/Day Years [...] on filedocumented in this encounter Care Teams Eyelet Cutter Relationship Specialty Start Date End Date Angeline Klein MD [address] [place], [place] [phone] PCP - General Family Medicine 08/21/20 documented as of this encounter
--- OUTSIDE RECORDS SUMMARY | 2024-12-25 14:36 | XMS_ITS | Encounter Summary ---
Author Organization [employer] Address 75 [facility] 7t [place] [address] Care Team Providers Care Medical Art Therapist Name Role Phone Angeline Klein MD Primary Care Provider [phone] Encounter Details Date Type Department Care Team (Late st Contact Info) Description 12/23/2024 Orders Only [facility] External Provider, [facility] Social History Tobacco Use Types Packs/Day Years [...] the past 12 months, has t he [employer], gas, oil or water company threatened to [...] RENAL BI Routine 12/23/2024 11:08 AM EDT documented in this encounter Results * US RENAL BI (12/23/2024 11:08 AM EDT) Anatomical Region Laterality Modality Abdomen Ultrasound 12/23/2024 11:0 8 AM EDT Narrative 12/23/2024 11:51 AM EDT ? [facility] ?[address] ?[place] [address] ? Ultrasound Report ? Signed ? Patient: Alba,Altaf ?MR#: [id number] ?? 260 ? : 1945 ?Acct:[id number] ? Age/Sex: 79 / F ?ADM Date: 04/14/25 ? Loc: HO.US ? Attending Dr: Destiney Palacios MD ? Ordering Physician: Severo Blair MD ?? Date of Service: 12/23/24 ?? Procedure(s): US renal BI ?? Accession Number(s): [id number] ? cc: Severo Blair MD; Angeline Klein ? EXAMINATION: ??US KIDNEY [...] ??Bennett Alejandro MD ??12/23/2024 11:48 AM EDT ?? RP ? Dictated By: ?Bennett Alejandro MD ? Signed By: ?<Electronically signed by Bennett Alejandro MD in OV> ?12/23/24 1148 ? DD/ 1108 ? TD/TT: 12/23/24 1119 ? Sheet Metal Shop Supervisor: ? Procedure Note Bayron, Charlie - 12/23/[address] [place] [address] Ultrasound Report Signed Patient: Altaf AlbaMR#: [id number] 260 : 6Acct:[id number] Age/Sex: 79 / FADM Date: 12/23/24 Loc: HO.US Attending Dr: Destiney Palacios MD Ordering Physician: Severo Blair MD Date of Service: 12/23/24 Procedure(s): US renal BI Accession Number(s): [id number] cc: Severo Blair MD; Angeline Klein EXAMINATION: [...] 12/23/24 1148 DD/ 1108 TD/TT: 12/23/24 1119 Sheet Metal Shop Supervisor: [facility] External Provider IMG US PROCEDURES Edited Result - Final documented in this encounter Visit Diagnoses Not on filedocumented in this encounter Additional Health Concerns Assessment Noted Time PHQ-9 Depression Total Score: 4 12/26/19 24 10:32 AM EDT documented as of this encounter Care Teams Medical Art Therapist Relationship Specialty Start Date End Date Angeline Klein MD [address] [place] [address] PCP - General Family Medicine 08/21/20 documented as of this encounter
--- OUTSIDE RECORDS SUMMARY | 2024-12-25 14:36 | XMS_ITS | Encounter Summary ---
Author Organization [employer] Address 75 [facility] 7t [place] [address] Care Team Providers Care Paint Laboratory Technician Name Role Phone Angeline Klein MD Primary Care Provider [phone] Encounter Details Date Type Department Care Team (Late st Contact Info) Description 02/01/2023 Abstract [facility] MEDICINE [address] [place], [place] [phone] Angeline Klein MD [address] [place] [address] Social History Tobacco Use Types Packs/Day Years [...] on filedocumented in this encounter Care Teams Paint Laboratory Technician Relationship Specialty Start Date End Date Angeline Klein MD [address] [place], [place] [phone] PCP - General Family Medicine 08/21/20 documented as of this encounter
--- OUTSIDE RECORDS SUMMARY | 2024-12-25 14:36 | XMS_ITS | Encounter Summary ---
Author Organization [employer] Address 75 [facility] 7t [place] [address] Care Team Providers Care Program Production Specialist Name Role Phone Angeline Klein MD Primary Care Provider [phone] Encounter Details Date Type Department Care Team (Late st Contact Info) Description 05/10/2024 Orders Only [facility] MEDICINE [address] [place], [place] [phone] Angeline Klein MD [address] [place] [address] Oral thrush (Primary Dx) Social History Tobacco [...] documented as of this encounter Care Teams Program Production Specialist Relationship Specialty Start Date End Date Angeline Klein MD [address] [place] [address] PCP - General Family Medicine 08/21/20 documented as of this encounter
--- OUTSIDE RECORDS SUMMARY | 2024-12-25 14:36 | XMS_ITS | Encounter Summary ---
Author Organization [employer] Address 75 [facility] 7t [place] [address] Care Team Providers Care Forestry Supervisor Name Role Phone Angeline Klein MD Primary Care Provider [phone] Encounter Details Date Type Department Care Team ([facility] st Contact Info) Description 09/23/2022 Telephone [facility] MEDICINE [address] [place], [place] [phone] Angeline Klein MD [address] [place], [place] [phone] Social History Tobacco Use Types Packs/Day Years [...] on filedocumented in this encounter Care Teams Forestry Supervisor Relationship Specialty Start Date End Date Angeline Klein MD [address] [place] [address] PCP - General Family Medicine 08/21/20 documented as of this encounter
== END 2024-12-24 12:19 | disposition home or self-care (01) ==
LOC: HO.HOSX 12:18
PROVIDERS: Visit Provider Physician Assistant
DX: Z13.89 Encounter for screening for other disorder (principal)

== ENCOUNTER 2024-12-27 10:43 | Day surgery (SDC) | payer OTHER, SELFPAY ==
[2024-12-27] VITALS (12 sets, daily range): BP systolic 125–168; BP diastolic 64–83; PULSE 81–88; RESP 13–26; TEMP 36.6–36.8; O2SAT 96–100; BMI 17.8
--- NOTE | ~2024-12-27 | IR_ITS ---
EXAMINATION: XR NEPHROSTOMY TUBE CHANGE, RIGHT CLINICAL INFORMATION: FLUOROSCOPIC RIGHT SIDED NEPHROSTOMY TUBE EXCHANGE History: Patient with right sided nephrostomy tubes due to bladder cancer and ureteral obstruction. Patient presents for three-month maintenance change. Procedure: Patient was informed and consented to the procedure. The patient's right back was prepped and draped in routine sterile fashion. 1% buffered lidocaine was used as anesthetic around the insertion site. The catheter was cut and an stiff guidewire was placed through the tube and coiled into the renal pelvis. The old catheter was removed and over the wire. A new 8 Turkmen locking pigtail catheter was advanced over the wire. The wire was removed. 5 mL of contrast was injected to ensure proper positioning of the catheter in the renal pelvis. A 3-0 Ethilon suture was used to secure the catheter to the skin. A sterile dressing was applied. Total fluoroscopy time was 0.9. IR/IR nephrostomy tube change IMPRESSION: Right-sided Nephrostomy tube exchange This procedure performed by David Sheehan NP, and supervised by Dr. Sesar Casarez MD Electronically signed by: Sesar Casarez MD 01/08/2025 01:23 PM EDT
--- OUTSIDE RECORDS SUMMARY | 2024-12-27 11:45 | XMS_ITS | Clinical Summary ---
Author Organization [employer] Address 75 [facility] 7t [place] [address] Care Team Providers Care Supervisor Plate Pasting Name Role Phone Angeline Klein MD Primary Care Provider [phone] Allergies Active Allergy Reactions Criticality Noted Date [...] BEDTIME 90 tablet 3 Active nystatin (Mycostatin) 961673 UNIT/ML suspension Take 1 mL (100,000 Units) [...] dose amlodipine -needs VNA --request today to research staff member to start process for this. [...] Continue followup with oncology and urology at [facility] Has next biopsy planned for Aug 19, [address] Blair Assessment & Plan (12/26/2023 11:21 AM EDT): Continue followup with oncology and urology at [facility] Disease is spreading, will discuss therapeutic options with Dr Palacios tomorrow Assessment & Plan (05/01/2023 4:22 PM EDT): Continue followup with oncology and urology at [facility] No signs of infection or complication currently [...] scheduled MRI with patient, Dec 2 at [facility], so that she can proceed with treatment [...] Case has been discussed with ER at [facility]>. Encounters Date Type Department Care Team Description 12/23/2024 Orders Only [facility] External Provider, [facility] 12/23/[address] [facility] MEDICINE [address] [place] [address] Angeline Klein MD Allergic eosinophilia 12/20/[address] [facility] MEDICINE [address] [place] [address] Angeline Klein MD Med Refill 12/17/[address] [facility] MED[facility]INE [address] [place] [address] Angeline Klein MD Nurse Triage 11/29/2024 9:45 AM EDT Office Visit 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 MEDICINE [address] [place], [place] [phone] Angeline Klein MD Nurse Triage 10/27/2024 Orders Only [facility] External Provider, [facility] from Last 3 Months Immunizations Name [...] EDT Narrative 12/23/2024 11:51 AM EDT ? [facility] ?[address] ?[place] [address] ? Ultrasound Report ? Signed ? Patient: Alba,Altaf ?MR#: [id number] ?? 260 ? : 1945 ?Acct:[id number] ? Age/Sex: 79 / F ?ADM Date: 12/23/24 ? Loc: HO.US ? Attending : Destiney Palaciso MD ? Ordering Physician: Severo Blair MD ?? Date of Service: 12/23/24 ?? Procedure(s): US renal BI ?? Accession Number(s): [id number] ? cc: Severo Blair MD; Angeline Klein [...] DD/ 1108 ? TD/TT: 12/23/24 1119 ? Track Worker: ? Procedure Note Bayron, Image - 12/23/2024 [place] [address] Ultrasound Report Signed Patient: Altaf AlbaMR#: [id number] 260 : 6Acct:[id number] Age/Sex: 79 / FADM Date: 12/23/24 Loc: HO.US Attending Dr: Destiney Palacios MD Ordering Physician: Severo Blair MD Date of Service: 12/23/24 Procedure(s): US renal BI Accession Number(s): [id number] cc: Severo Blair MD; Angeline Klein EXAMINATION: [...] 12/23/24 1148 DD/ 1108 TD/TT: 12/23/24 1119 Track Worker: [facility] External Provider IMG US PROCEDURES Edited Result - Final * XR Chest 2 Views (11/20/2024 5:14 PM EDT) Anatomical Region Laterality Modality Chest Radiographic Manju ging 11/20/2024 5:14 PM EDT Narrative 11/20/2024 5:15 PM EDT ? [facility] ?[address] ?[place] [address] ?XRay Report ? Signed ? Patient: Alba,Altaf ?MR#: [id number] ?? 260 ? : 1945 ?Acct:[id number] ? Age/Sex: 79 / F ?ADM Date: 03/12/25 ? Loc: HO.CT ? Attending Dr: Destiney Palacios MD ? Ordering Physician: Endy Thakkar MD ?? Date of Service: 11/20/24 ?? Procedure(s): XR chest 2V ?? Accession Number(s): [id number] ? cc: Angeline Klein; Endy Thakkar MD ? CLINICAL HISTORY: J45.50 - Severe persistent asthma, uncomplicated ? 2 view chest x-ray ? Comparison: CR/NV/SR - XR CHEST 2V - 04/09/24 09:11 [...] ? DD/ 1714 ? TD/TT: 11/20/241713 ? Track Worker: ? Procedure Note Charlie Verma - 11/20/2024 [place] [address] XRay Report Signed Patient: Altaf AlbaMR#: [id number] 260 : 6Acct:[id number] Age/Sex: 79 / FADM Date: 11/20/24 Loc: HO.CT Attending Dr: Destiney Palacios MD Ordering Physician: Endy Thakkar MD Date of Service: 11/20/24 Procedure(s): XR chest 2V Accession Number(s): [id number] cc: Angeline Klein; Endy Thakkar MD CLINICAL HISTORY: J45.50 - Severe persistent asthma, uncomplicated 2 view chest x-ray Comparison: CR/NV/SR - XR CHEST 2V - 04/09/24 09:11 [...] in OV> 11/20/241714 DD/ 13 TD/TT: 11/20/241713 Track Worker: [facility] External Provider IMG XR PROCEDURES Final Result * CT Abdomen Pelvis w/ Contrast (11/20/2024 1:06 PM EDT) Anatomical Region Laterality Modality Body, Pelvis, Abdomen Computed T omography 11/20/2024 1:06 PM EDT Narrative 11/20/2024 1:08 PM EDT ? [facility] ?[address] ?[place] [address] ? CT Scan Report ? Signed ? Patient: Altaf Alba ?MR#: [id number] ?? 260 ? : 1945 ?Acct:[id number] ? Age/Sex: 79 / F ?ADM Date: 11/20/24 ? Loc: HO.CT ? Attending Dr: Destiney Palacios MD ? Ordering Physician: Destiney Palacios MD ?? Date of Service: 11/20/24 ?? Procedure(s): CT abdomen pelvis w IV con ?? Accession Number(s): [id number] ? cc: Destiney Palacios MD; Angeline Klein ? Report Number: ?? [id number]: Total DLP = 1010.00 mGy-cm ? CLINICAL [...] image 15). No hydroureter. ? Normal appendix. Orhe-sj-dsxuxuba colonic stool burden. No bowel ?? obstruction. [...] ?? 11/20/2024 13:06:13 ? Dictated By: ?Mark Hitlon MD ? Signed By: ?<Electronically signed by Mark Hilton MD in OV> ?11/20/24 1307 ? DD/ 1306 ? TD/TT: 11/20/24 1306 ? Track Worker: ? Procedure Note Donotuseinterpreter, Image - 11/20/[address] [place] [address] [address] Scan Report Signed Patient: Altaf AlbaMR#: [id number] 260 : 6Acct:[id number] Age/Sex: 79 / FADM Date: 11/20/24 Loc: HO.CT Attending Dr: Destiney Palacios MD Ordering Physician: Destiney Palacios MD Date of Service: 11/20/24 Procedure(s): CT abdomen pelvis w IV con Accession Number(s): [id number] cc: Destiney Palacios MD; Angeline Klein Report Number: [id number]: Total DLP = 1010.00 mGy-cm CLINICAL HISTORY: [...] 3, image 15). No hydroureter. Normal appendix. Cfzx-nx-bkswqxwh colonic stool burden. No bowel obstruction. Mild [...] 11/20/24 1307 DD/ 1306 TD/TT: 11/20/24 1306 Track Worker: [facility] External Provider IMG CT PROCEDURES Final Result * MR Pelvis w/ and w/o Contrast (10/27/2024 3:14 PM EST) Anatomical Region Laterality Modality Body, Pelvis Magnetic Resonan ce 10/27/2024 3:14 PM EST Narrative 10/27/2024 3:15 PM EST ? [facility] ?[address] ?[place] [address] ? Magnetic Resonance Report ? Signed ? Patient: Alba,Altaf ?MR#: [id number] ?? 260 ? : 1945 ?Acct:[id number] ? Age/Sex: 79 / F ?ADM Date: 02/16/25 ? Loc: HO.MRI ? Attending Dr: Destiney Palacios MD ? Ordering Physician: Destiney Palacios MD ?? Date of Service: 10/27/24 ?? Procedure(s): MR pelvis wo/w con ?? Accession Number(s): [id number] ? cc: Destiney Palacios MD; Angeline Klein [...] DD/ 13 ? TD/TT: 10/27/24 1514 ? Track Worker: ? Procedure Note Donotuseinterpreter, Image - 10/27/[address] [address] Magnetic Resonance Report Signed Patient: Altaf AlbaMR#: [id number] 260 : 1945cct:[id number] Age/Sex: 79 / FADM Date: 10/27/24 Loc: HO.MRI Attending Dr: Destiney Palacios MD Ordering Physician: Destiney Palacios MD Date of Service: 10/27/24 Procedure(s): MR pelvis wo/w con Accession Number(s): [id number] cc: Destiney Palacios MD; Angeline Klein CLINICAL [...] in OV> 10/27/241514 DD/ 13 TD/TT: 10/27/241513 Track Worker: [facility] External Provider IMG MRI PROCEDURES Edited [...] ?? Timoteo SAMPSON et al. SHARYN. 2013;310(19): 7581-1230 ?? (http://education.eGistics/faq/III002) Non-HDL Cholesterol 116 <130 mg/dL (calc) [facility] Comment: For patients with diabetes plus 1 major ASCVD risk ?? factor, treating to a non-HDL-C goal of <100 mg/dL ?? (LDL-C of <70 mg/dL) is considered a therapeutic ?? option. Triglycerides 116 <150 mg/dL [facility] 01/22/2021 9:15 AM EDT us Angeline Klein MD LAB BLOOD ORDERABLES Final Res ult Performing Organization Address [facility] Co de Phone Number [facility] [address] * HEPATITIS A,B,C PROFILE (08/22/2019 1:30 [...] ORDERABLE LABS Final Result Performing Organization Address [facility] de Phone Number [facility] [address] from Last 3 Months or Most Recently Relevant to Health Maintenance Insurance [facility] Care Teams Supervisor Plate Pasting Relationship Specialty Start Date End Date Angeline Klein MD [address] [place] [address] PCP - General Family Medicine 08/21/20
--- OUTSIDE RECORDS SUMMARY | 2024-12-27 11:45 | XMS_ITS | Encounter Summary ---
Author Organization [employer] Address 75 [facility] 7t [place] [address] Care Team Providers Care Slubber Runner Name Role Phone Angeline Klein MD Primary Care Provider [phone] Encounter Details Date Type Department Care Team (Late st Contact Info) Description 05/10/2024 Orders Only [facility] MEDICINE [address] [place], [place] [phone] Angeline Klein MD [address] [place] [address] Oral thrush (Primary Dx) Social History Tobacco [...] documented as of this encounter Care Teams Slubber Runner Relationship Specialty Start Date End Date Angeline Klein MD [address] [place] [address] PCP - General Family Medicine 08/21/20 documented as of this encounter
--- OUTSIDE RECORDS SUMMARY | 2024-12-27 11:45 | XMS_ITS | Encounter Summary ---
Author Organization [employer] Address 75 [facility] 7t [place] [address] Care Team Providers Care Housekeeping Supervisor Hotel Name Role Phone Angeline Klein MD Primary Care Provider [phone] Reason for Visit * Reason Onset Date Comments Medication Question 12/23/2024 Encounter Details Date Type Department Care Team ([facility] st Contact Info) Description 12/23/2024 Refill [facility] MEDICINE [address] [place] [address] Angeline Klein MD [address] [place] [address] Allergic eosinophilia Social History Tobacco Use Types [...] the past 12 months, has t he [employer], oil or water company threatened to shut [...] documented as of this encounter Care Teams Housekeeping Supervisor Hotel Relationship Specialty Start Date End Date Angeline Klein MD [address] [place] [address] PCP - General Family Medicine 08/21/20 documented as of this encounter
--- OUTSIDE RECORDS SUMMARY | 2024-12-27 11:45 | XMS_ITS | Encounter Summary ---
Author Organization [employer] Address 75 [facility] 7t [place] [address] Care Team Providers Care Urban Planning Teacher Name Role Phone Angeline Klein MD Primary Care Provider [phone] Encounter Details Date Type Department Care Team (Late st Contact Info) Description 03/19/2024 Orders Only [facility] MEDICINE [address] [place], [place] [phone] Angeline Klein MD [address] [place], [place] [phone] Mixed stress and urge urinary incontinence (Primary [...] documented as of this encounter Care Teams Urban Planning Teacher Relationship Specialty Start Date End Date Angeline Klein MD [address] [place] [address] PCP - General Family Medicine 08/21/20 documented as of this encounter
--- OUTSIDE RECORDS SUMMARY | 2024-12-27 11:45 | XMS_ITS | Encounter Summary ---
Author Organization [employer] Address 75 [facility] 7t [place] [address] Care Team Providers Care Administrative Law Judge Name Role Phone Angeline Klein MD Primary Care Provider [phone] Reason for Visit * Reason Onset Date Comments Nurse Triage 03/29/2024 Encounter Details Date Type Department Care Team ([facility] st Contact Info) Description 03/29/2024 Telephone [facility] MEDICINE [address] [place] [address] Angeline Klein MD [address] [place] [address] Nurse Triage Social History Tobacco Use Types [...] 03/29/2024 3:15 PM EDT Triage call with [place] Gas Pump Attendant ID [id number] Pt reports fatigue for last 3 days. [...] Reason: Caller denied all higher acuity questions Cay[place] Islander Speaker (Accepted Gas Pump Attendant) documented in this encounter Plan of Treatment Not on file documented as of this encounter Visit Diagnoses Not on filedocumented in this encounter Additional Health Concerns Assessment Noted Time PHQ-9 Depression Total Score: 4 12/26/19 24 10:32 AM EDT documented as of this encounter Care Teams Administrative Law Judge Relationship Specialty Start Date End Date Angeline Klein MD [address] [place] [address] PCP - General Family Medicine 08/21/20 documented as of this encounter
--- OUTSIDE RECORDS SUMMARY | 2024-12-27 11:45 | XMS_ITS | Encounter Summary ---
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
--- OUTSIDE RECORDS SUMMARY | 2024-12-27 11:45 | XMS_ITS | Encounter Summary ---
Author Organization [employer] Address 75 [facility] 7t [place] [address] Care Team Providers Care Recreational Therapy Aide Name Role Phone Angeline Klein MD Primary Care Provider [phone] Encounter Details Date Type Department Care Team (Late st Contact Info) Description 02/01/2023 Abstract [facility] MEDICINE [address] [place], [place] [phone] Angeline Klein MD [address] [place] [address] Social History Tobacco Use Types Packs/Day Years [...] on filedocumented in this encounter Care Teams Recreational Therapy Aide Relationship Specialty Start Date End Date Angeline Klein MD [address] [place], [place] [phone] PCP - General Family Medicine 08/21/20 documented as of this encounter
--- OUTSIDE RECORDS SUMMARY | 2024-12-27 11:45 | XMS_ITS | Encounter Summary ---
Author Organization [employer] [facility] Address 75 [facility] 7t [place] [address] Care Team Providers Care Director Of Rehabilitation Name Role Phone Angeline Klein MD Primary Care Provider [phone] Encounter Details Date Type Department Care Team (Late st Contact Info) Description 04/05/2023 Orders Only [facility] MEDICINE [address] [place], [place] [phone] Angeline Klein MD [address] [place], [place] [phone] Primary osteoarthritis of both hips (Primary Dx); [...] neck documented in this encounter Care Teams Director Of Rehabilitation Relationship Specialty Start Date End Date Angeline Klein MD [address] [place], [place] [phone] PCP - General Family Medicine 08/21/20 documented as of this encounter
--- OUTSIDE RECORDS SUMMARY | 2024-12-27 11:45 | XMS_ITS | Encounter Summary ---
Author Organization [employer] Address 75 [facility] 7t [place] [address] Care Team Providers Care Large Sheetfed Press Operator Name Role Phone Angeline Klein MD Primary Care Provider [phone] Encounter Details Date Type Department Care Team ([facility] st Contact Info) Description 09/23/2022 Telephone [facility] MEDICINE [address] [place], [place] [phone] Angeline Klein MD [address] [place] [address] Social History Tobacco Use Types Packs/Day Years [...] on filedocumented in this encounter Care Teams Large Sheetfed Press Operator Relationship Specialty Start Date End Date Angeline Klein MD [address] [place] [address] PCP - General Family Medicine 08/21/20 documented as of this encounter
--- OUTSIDE RECORDS SUMMARY | 2024-12-27 11:45 | XMS_ITS | Data Portability ---
Author Organization [facility] [employer]pal[employer]g [place], [place] in - [facility] Address [address] [place] [phone] Care Team Providers Care Market Risk Specialist Name Role Phone HIM CCA OTHER [facility] OTHER Assessment No assessment recorded. Plan of Treatment Reminders Order Date Submit Date Provider Last Modified By Organization Details Last Modified Time Details Appointments None recorded. Lab rapid strep group A, throat 2023 024 jessica [facility], [address] [place] [address], [phone] 12:54:14 Referral None recorded. Procedures None recorded. Surgeries None recorded. Imaging None recorded. Medication Orders nystatin 100,000 unit/mL oral suspension 2023 024 [id number], [address], [place], [phone], 12:54:22 Patient TargetsNo targets recorded. Patient InstructionsNo instructions recorded. Reason for Referral None Reported. Results Created Date Observation Date Name Description Value Unit Range Abnormal Flag Note LastModifiedBy Organization Detail LastModifiedTime 02/12/20 24 02/12/2024 rapid strep group A, throa t Strep negati ve Not Available [address], [phone] 02/12/2024 12:52:54 Result Notes None recorded. Medical [...] Not available Not available Not available 04/10/2024 46125 02 RxNorm COLLEEN IVAN MD [address] [place] [address],[address], [place], [phone], [employer], [employer] 4 09:07:46 5743 naproxen medicatio n Not available Not available Not available 04/10/2024 7258 RxNorm COLLEEN IVAN MD [address] [place] [address],[address], [place], [phone], [employer], [employer] 4 09:08:04 5744 oxycodone medicatio n Not available Not available Not available 04/10/2024 7804 RxNorm COLLEEN IVAN MD [address] [place] [address],[address], [place], [phone], [employer] 4 09:08:18 Medications Name Sig Start Date [...] /min 106 mm[Hg] 66 mm[Hg] Not Available [employer] - production 4 10:22:14 Date Recorded Oxygen saturation Oxygen saturation in Arterial blood by Pulse oximetry Body temperature Body weight Heart rate Body height Respiratory rate Systolic blood pressure Diastolic blood pressure Provider Name and Address Organization Details Last Updated DateTime 4 98 % 98 % 99.1 [degF] 49097 g 90 /min 152.4 cm 14 /min 120 mm[Hg] 80 mm[Hg] Not Available [employer] - production 4 09:29:14 Social History None recorded. Functional Status None recorded. Mental Status None recorded. Family History Nothing Reported. Medical History No medical history recorded. Gynecological HistoryNo gynecological history recorded. Obstetrics History GPAL:G 0 P 0 0 0 0 Past Encounters Encounter ID Performer Location Encounter Start Date Encounter Closed Date Diagnosis/Indication Diagnosis SNOMED-CT Code Diagnosis ICD10 Code Diagnosis Note [id number] Dominick Walker MD Main - [facility] [address] [place] [phone] 02/12/2024 10:22:08 02/12/2024 16:37:24 Candidiasis of mouth 88133876 B37.0 Sent out for rapid strep and refill of Nystatin. [id number] COLLEEN IVAN MD Main - [facility] [address] [place] [phone] 04/10/2024 09:28:55 04/10/2024 11:00:49 Attention to nephrostomy tube 734749754 Z43.6 Evaluation in the field was performed by my manager visual colleague, as noted above, I provided real-time direction and supervisio n for this visit. The evaluation revealed a 78-year-ol d female, status post bilateral nephrostom y tube placement on the or 17 of March, with concerns that the dressing has not been changed since. She denies bleeding, drainage, fever, chills, nausea, and vomiting. Per discussion with the patient via a Niuean interprete r, she reports that she has a telehealth visit with Urology on April 12. VSS.Per discussion and per photo view, dressing in place, dry, clean with no urine or blood saturation Impression :B/L nephrostom y tube in place Plan:Since the dressing was intact, the manager visual did not feel comfortabl e changing it [...] Brooks Member ID Guarantor Name 02/12/2024 1 [facility] - DOS ON OR AFTER 2022 - DUAL ELIGIBLE - ALF OPTIONS AND ONE CARE (MEDICARE REPLACEMENT/ADV ANTAGE - HMO) Altaf Alba [id number] Altaf Alba 04/10/2024 1 [facility] - DOS ON OR AFTER 2022 - DUAL ELIGIBLE - ALF OPTIONS AND ONE CARE (MEDICARE REPLACEMENT/ADV ANTAGE - HMO) Altaf Alba [id number] Altaf Alba Notes Date Note Type Note [...] in clear full sentences. Pt seen at [facility] 01/08 for similar sx and given Nystatin for thrush as has hx of this. Pt unable to come into office. Pt agrees to [facility] for eval. ................... ................... ................... ................... ................... ................... ................... ........ CRC Nurse Triage Notes (Marilia Bee): Comments: CRC RN DID NOT NEED FURTHER INFO Industrial Arts Teacher POC Test Results from Yovany Sesay BLAIR Rapid strep test (1) [10:30] Strep: - ................... ................... ................... ................... ................... ................... ................... ........ Industrial Arts Teacher Note From Yovany Sesay: Pt reports off [...] exam. No LE edema. Rapid strep negative. [facility] contacted and will send nystatin rx to pharmacy. Pt instructed to f/u with PCP as they requested. Red flags reviewed. ................... ................... ................... ................... ................... ................... ................... ........ Disposition: Fulfilled Dominick Walker MD [address] [facility],[address], [place], [address], [employer] 02/12/2024 12:54:18 04/10/2024 text/html CRC Nurse Triage Notes (Tori Nolasco): Reason For Request: Wound care Chief Complaints: Wound Care PMH: COPD/Asthma, Hypertension, Cancer, Heart Disease Allergies: Aspirin, Ibuprofen, Morphine Other Allergies: dupixent, MS, ASA, naproxen, oxycodone, mult others that she can't recall Comments: Referral taken via Drawbridge Operator [id number]. Member calling in to place a referral, [...] ................... ................... ................... ................... ................... ................... ........ Industrial Arts Teacher Note From Jelani Geller: Patient conscious alert [...] moisture, discoloration, odor, discharge, or other concern. [facility] agrees encourages patient to follow up with urology, patient has an appointment April 12. Red flags patient education discussed. Patient demonstrates understanding of care and plan. Industrial Arts Teacher Allergies: Aspirin, Ibuprofen, Morphine ................... ................... ................... ................... ................... ................... ................... ........ Disposition: Chantal IVAN MD [address] [facility],[address], [place], [address], RADHA COELHO 04/10/2024 10:27:47 OBGyn Episode No OBEpisode recorded.
--- OUTSIDE RECORDS SUMMARY | 2024-12-27 11:45 | XMS_ITS | Encounter Summary ---
Author Organization [employer] [facility] Address [address] [facility] 7t [place] [address] Care Team Providers Care Cloth Measurer Name Role Phone Angeline Klein MD Primary Care Provider [phone] Encounter Details Date Type Department Care Team (Late st Contact Info) Description 12/23/2024 Orders Only [facility] External Provider, [facility] Social History Tobacco Use Types Packs/Day [...] the past 12 months, has t he [employer], gas, oil or water company threatened to [...] EDT Narrative 12/23/2024 11:51 AM EDT ? [facility] ?[address] ?[place] [address] ? Ultrasound Report ? Signed ? Patient: Alba,Altaf ?MR#: [id number] ?? 260 ? : 1945 ?Acct:[id number] ? Age/Sex: 79 / F ?ADM Date: 04/14/25 ? Loc: HO.US ? Attending Dr: Destiney Palacios MD ? Ordering Physician: Severo Blair MD ?? Date of Service: 12/23/24 ?? Procedure(s): US renal BI ?? Accession Number(s): [id number] ? cc: Severo Blair MD; Angeline Klein [...] DD/ 1108 ? TD/TT: 12/23/24 1119 ? Oil Bay Technician: ? Procedure Note Bayron, Charlie - 12/23/[address] [place] [address] Ultrasound Report Signed Patient: Altaf AlbaMR#: [id number] : 6Acct:[id number] Age/Sex: 79 / FADM Date: 12/23/24 Loc: HO.US Attending Dr: Destiney Palacios MD Ordering Physician: Severo Blair MD Date of Service: 12/23/24 Procedure(s): US renal BI Accession Number(s): [id number] cc: Severo Blair MD; Angeline Klein EXAMINATION: [...] 12/23/24 1148 DD/ 1108 TD/TT: 12/23/24 1119 Oil Bay Technician: [facility] External Provider IMG US PROCEDURES Edited Result - Final documented in this encounter Visit Diagnoses Not on filedocumented in this encounter Additional Health Concerns Assessment Noted Time PHQ-9 Depression Total Score: 4 12/26/19 24 10:32 AM EDT documented as of this encounter Care Teams Cloth Measurer Relationship Specialty Start Date End Date Angeline Klein MD [address] [place] [address] PCP - General Family Medicine 08/21/20 documented as of this encounter
--- OUTSIDE RECORDS SUMMARY | 2024-12-27 11:45 | XMS_ITS | Encounter Summary ---
Author Organization [employer] [facility] Address [address] [facility] 7[address] [place] [address] Care Team Providers Care Nuclear Officer Name Role Phone Angeline Klein MD Primary Care Provider [phone] Encounter Details Date Type Department Care Team (Late st Contact Info) Description 08/01/2022 Abstract [facility] MEDICINE [address] [place], [place] [phone] Angeline Klein MD [address] [place] [address] Social History Tobacco Use Types Packs/Day Years [...] on filedocumented in this encounter Care Teams Nuclear Officer Relationship Specialty Start Date End Date Angeline Klein MD [address] [place], [place] [phone] PCP - General Family Medicine 08/21/20 documented as of this encounter
--- OUTSIDE RECORDS SUMMARY | 2024-12-27 11:45 | XMS_ITS | Encounter Summary ---
Author Organization [employer] Address [address] [facility] 7[address] [place] [address] Care Team Providers Care Disk And Tape Machine Tender Name Role Phone Angeline Klein MD Primary Care Provider [phone] Encounter Details Date Type Department Care Team (Late st Contact Info) Description 04/12/2024 Orders Only [facility] MEDICINE [address] [place], [place] [phone] Guadalupe Garrido MD [address] [place] [address] Social History Tobacco Use Types Packs/Day Years [...] documented as of this encounter Care Teams Disk And Tape Machine Tender Relationship Specialty Start Date End Date Angeline Klein MD [address] [place] [address] PCP - General Family Medicine 08/21/20 documented as of this encounter
--- OUTSIDE RECORDS SUMMARY | 2024-12-27 11:45 | XMS_ITS | Encounter Summary ---
Author Organization [employer] Address [address] [facility] [address] [place] [address] Care Team Providers Care Burnisher Name Role Phone Angeline Klein MD Primary Care Provider [phone] Reason for Visit * Reason Onset Date Comments Referral 04/04/2023 Encounter Details Date Type Department Care Team ([facility] st Contact Info) Description 04/04/2023 Telephone [facility] MEDICINE [address] [place] [address] Angeline Klein MD [address] [place] [address] Referral Social History Tobacco Use Types Packs/Day [...] 11:18 AM EDT TC placed to pt [phone] in regards to below message however number is OOS. RN called pt's OPHELIA Larson [phone] who was able to confirm the pt DOES want to go to [facility] pain management. RN informed[facility] PCP would place referral today. OPHELIA Larson also provided RN w/ updated number for the pt ([phone]). RN has updated pt's chart. Please place referral to [facility] pain management. * Telephone Encounter - Mary Devon - 04/04/2023 2:43 PM EDT Tc from kelly with [facility] requesting a new referral for pain management. documented in this encounter Plan of Treatment Not on file documented as of this encounter Visit Diagnoses Not on filedocumented in this encounter Care Teams Burnisher Relationship Specialty Start Date End Date Angeline Klein MD [address] [place] [address] PCP - General Family Medicine 08/21/20 documented as of this encounter
--- OUTSIDE RECORDS SUMMARY | 2024-12-27 11:45 | XMS_ITS | Encounter Summary ---
Author Organization [employer] Address [address] [facility] [address] [place] [address] Care Team Providers Care Frickertron Checker Name Role Phone Angeline Klein MD Primary Care Provider Reason for Visit * Reason Onset Date Comments Appointment Request 05/22/2023 Encounter Details Date Type Department Care Team ([facility] st Contact Info) Description 05/22/2023 Telephone [facility] MEDICINE [address] [place] [address] Angeline Klein MD [address] [place] [address] Appointment Request Social History Tobacco Use Types [...] @ 2:30 pm. Please contact pt at [phone] documented in this encounter Plan of Treatment Not on file documented as of this encounter Visit Diagnoses Not on filedocumented in this encounter Care Teams Frickertron Checker Relationship Specialty Start Date End Date Angeline Klein MD [address] [place] [address] PCP - General Family Medicine 08/21/20 documented as of this encounter
--- OUTSIDE RECORDS SUMMARY | 2024-12-27 11:45 | XMS_ITS | Clinical Summary ---
Author Organization [facility] Address [address] [address] Care Team Providers Care Cellophane Bag Machine Operator Name Role Phone Unavailable Primary Care Provider [...]
--- OUTSIDE RECORDS SUMMARY | 2024-12-27 11:45 | XMS_ITS | Encounter Summary ---
Author Organization [employer] Address [address] [facility] 7[address] [place] [address] Care Team Providers Care Inventory Control Clerk Name Role Phone Angeline Klein MD Primary Care Provider [phone] Reason for Visit * Reason Onset Date Comments Med Refill 12/20/2024 Encounter Details Date Type Department Care Team ([facility] st Contact Info) Description 12/20/2024 Telephone [facility] MEDICINE [address] [place] [address] Angeline Klein MD [address] [place] [address] Med Refill Social History Tobacco Use Types [...] the past 12 months, has t he [employer], gas, oil or water company threatened to [...] 25 MG tablet To be sent to: [id number] - [place] - [address] [facility] documented in this encounter Plan of Treatment Not on file documented as of this encounter Visit Diagnoses Not on filedocumented in this encounter Additional Health Concerns Assessment Noted Time PHQ-9 Depression Total Score: 4 12/26/19 24 10:32 AM EDT documented as of this encounter Care Teams Inventory Control Clerk Relationship Specialty Start Date End Date Angeline Klein MD [address] [place] [address] [place] [address] PCP - General Family Medicine 08/21/20 documented as of this encounter
[2024-12-27 12:15] LABS: Prothrombin Time 11.9 SEC (10.9-12.4)
[2024-12-27] MEDS: fentaNYL citrate/PF 100 MCG/2 ML VIAL 25 MCG IVPUSH (14:09)
== END 2024-12-27 15:25 | disposition home or self-care (01) ==
PROVIDERS: PCP General Practice; Visit Provider Urology
DX: N13.30 Unspecified hydronephrosis (principal); G89.4 Chronic pain syndrome; C67.9 Malignant neoplasm of bladder, unspecified; Z92.21 Personal history of antineoplastic chemotherapy
CPT/HCPCS: 36415; 50435; 85610; J2003; J2250; J2310; J3010; Q9967

== ENCOUNTER → 2024-12-27 12:48 | Outpatient (BNV) | payer OTHER, SELFPAY | PROVIDERS: PCP General Practice | DX: Z48.03 Encounter for change or removal of drains (principal) | CPT/HCPCS: 50435 ==

== ENCOUNTER 2025-01-01 13:56 | Outpatient (AMB) | payer OTHER, SELFPAY ==
--- NOTE | 2025-01-01 13:57 | MHC.OFFVIS ---
Intake Visit Reasons: folllow up to discuss SP tube Intake Note: Patient is present for F/U TO DISCUSS SP TUBE Urology Medication:NONE Antibiotic Allergy:BACTRIM Blood Thinner:NONE Instrument Panel Assembler Required: No Allergies shrimp Allergy (Severe, Verified 01/01/25 13:59) Hives aspirin [ASA] Allergy (Intermediate, Verified 01/01/25 13:59) RASH ibuprofen [Ibuprofen] Allergy (Intermediate, Verified 01/01/25 13:59) RASH morphine [MORPHINE] Allergy (Intermediate, Verified 01/01/25 13:59) ITCHING naproxen [From NAPROSYN] Allergy (Intermediate, Verified 01/01/25 13:59) RASH,N/V oxycodone [OXYCODONE] Allergy (Intermediate, Verified 01/01/25 13:59) NAUSEA & VOMITING, RASH sulfamethoxazole [From Bactrim] Adverse Reaction (Severe, Verified 01/01/25 13:59) Abdominal Pain trimethoprim [From Bactrim] Adverse Reaction (Severe, Verified 01/01/25 13:59) Abdominal Pain HPI Comments Details: Altaf is a pleasant female. She is a patient of . She seen for the following urologic conditions - recurrent high-grade bladder cancer invasive Telemedicine Evaluation 15 min Consultation [employer] Chalo Video attempted French translation provided by qualified medical concierge Right side PCN had been removed. Resulted in recurrent hydronephrosis and increased creatinine Oncology would like to have tube replaced Discussed this with patient She is amenable 12/03 PCN Charge Difficulty sleeping Will take out PCN on right side Will change left side 09/03 biopsy - no cancer seen Needs PCN exchange Requesting a different interventional provider from last time - had pain with procedure, not the same as previously 02/01 stent internalization Bladder TURP with fulguration - high-grade T1 Removal of catheter Recommend induction 6 weeks mitomycin-C with cytarabine Stents to remain 01/02 Worsening hydronephrosis Creatinine ratio elevate Bilateral PCN placed followed by stent internalization in operating room Labs Cr 06/[address] right hydro, left mild hydro Completed neoadjuvant chemotherapy Right PCN placed after presentation for NADEEN - creatinine resolving from 2.9 down to 0.94 - 03/[address] scan with resolution of bladder thickening, right hydronephrosis. 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 The bladder is partially distended with irregular wall thickening and trabeculated appearance. Dilated appearance of both distal ureters. Moderate right hydronephrosis. Mild left hydronephrosis. No lymphadenopathy. Bladder cancer superficial high-grade 2018 - disease progression - 12/01 muscle invasive bladder cancer Initial diagnosis with Dr. Hankins TURBT 05/30 high-grade superficial noninvasive disease Adjuvant therapy BCG June 2019 Surveillance cystoscopy - 04/30 NAD, 10/01 NAD, 10/02 NAD - trabeculated bladder with BCG change PFS Medical History COPD (chronic obstructive pulmonary disease) Port-A-Cath in place Back pain Spinal stenosis Chronic pain syndrome Osteoarthritis GERD (gastroesophageal reflux disease) Emphysema lung Hyperlipidemia Hypertension Asthma Hemorrhoids with complication UTI (urinary tract infection) Malignant neoplasm of urinary bladder Surgical History History of surgery History of ERCP Hx laparoscopic cholecystectomy Hx of cystoscopy History of hysterectomy with bilateral oophorectomy Hx of colonoscopy (01/17/19) History of esophagogastroduodenoscopy (EGD) Family History Father No problems noted. Mother Diabetes Brother Lung cancer Daughter Diabetes Social History (Updated 08/15/24 @ 09:39 by Cee Ragsdale RN) Household Members: Spouse Housing: Apartment Are you a primary home child care provider to a significant other at home: No Do you presently have visiting nurse or other home services: No Alcohol intake: never Patient Tobacco Use Status: Former Tobacco user Tobacco use type: Cigarette Years Smoked: 56 service: No Current occupational status: retired Current occupation: rt handed Review of Systems Const All systems reviewed & are unremarkable except as noted in HPI and below Reports no additional complaints Resp Reports no additional complaints GI Reports no additional complaints Reports as per HPI Musc Reports no additional complaints Physical Exam Telemedicine evaluation Appropriate responses Regular breathing rate and rhythm HEENT Head: Yes normal to inspection Ears: hearing grossly normal bilaterally Eyes General: appearance normal, both eyes and all related structures Neck Neck: Yes normal visual inspection Chest Chest palpation & inspection: normal inspection of the chest Resp Effort & Inspection: normal respiratory effort and able to speak in complete sentences Telehealth Telehealth Telehealth Platform: [employer] Location of provider rendering services: practice address Location of patient: address on file Patient Identification confirmed using: Name, : Yes Telehealth method: video Patient verbally consented to treatment: Yes Patient verbally consented to billing insurance company: Yes Patient informed of any privacy concerns related to visit: Yes Minutes spent on Phone/Video with Pt.: 15 Assessment & Plan Assessment & Plan (1) 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 These include but are not limited to infection, bleeding, damage to local organs and tissues, need for further interventions. Anesthetic risks regarding cardiac arrhythmia, blood clots, and potential mortality were discussed. The patient understands the typical recovery time and the outpatient nature of the procedure. After consideration of these risks the patient gives full informed consent and they wish to move ahead with the procedure. Plan right-sided nephrostomy placement Orders: Orders IR nephrostomy Today C67.9 - Malignant neoplasm of bladder, unspecified, N13.30 - Unspecified hydronephrosis Patient Instructions: This note is constructed using voice recognition software. While every effort has been made to ensure accuracy director employee safety and health errors may have been included. Imaging studies, laboratory and physical exam results were discussed and reviewed in detail. No major barriers to patient understanding were identified. An opportunity to ask questions regarding the treatment plan was provided. All questions were answered. The patient expressed understanding and agreement with the above treatment plan. The patient is aware they should contact our office by phone for worsening of their current condition or the appearance of new urologic symptoms. Compliance is encouraged with any medications and followup testing that is ordered. It is a privilege to participate in the urologic care of your patient. If you have any questions or concerns regarding treatment for the above conditions, or other urologic issues, please do not hesitate to contact me. The office telephone contact is [phone]. Sincerely, Dr Severo Blair MD, ZACK[facility] - Urology Compassionate Specialist Care for the Genitourinary System Coding Level of Care Code Tele Est Pt Level 4 (39603) Diagnoses 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 N13.30; C67.9
--- OUTSIDE RECORDS SUMMARY | 2025-01-01 16:44 | XMS_ITS | Encounter Summary ---
Author Organization [facility] Address [address] [facility] 7t [place] [address] Care Team Providers Care Test Consultant Name Role Phone Angeline Klein MD Primary Care Provider [phone] Encounter Details Date Type Department Care Team (Late st Contact Info) Description 12/27/2024 Orders Only GENERIC EXTERNAL DATA DEPARTMENT Provider, Generic External Data Social History Tobacco Use Types Packs/Day Years [...] Procedure Name Priority Date/Time Associated Diagnosis Comments PROTHROMBIN TIME-INR Routine 12/27/2024 12:05 PM EDT documented in this encounter Results * Prothrombin Time-INR (12/27/2024 12:05 PM EDT) Prothrombin Time 11.9 10.9 - 12.4 SEC [facility] INTERNATIONAL NORM RATIO 1.0 0.9 - 1.1 [facility] Comment:INTERNATIONAL NORMAL IZED RATIO (INR) REFERENCE RANGES Reference RangeFor patients not on anticoagulant therapy: 0.9 - 1.1INR ranges for oral anticoagulanttherapy:For prevention and treatment of venous thrombosis and pulmonary embolism: 2.0 - 3.0For acute myocardial infarction with aspirin therapy: 2.0 - 3.0For acute myocardial infarction without aspirin therapy: 3.0 - 4.0For patients with mechanical prosthetic heart valves: 2.5 - 3.5 12/27/2024 12:0 5 PM EDT 12/27/2024 12:07 PM EDT us Generic External Data Provider LAB BLOOD ORDERAB LES Final Result Performing Organization Address City/State/[facility] Co de Phone Number [facility] [address] [place] [phone] documented in this encounter Visit Diagnoses Not on filedocumented in this encounter Additional Health Concerns Assessment Noted Time PHQ-9 Depression Total Score: 4 12/26/19 24 10:32 AM EDT documented as of this encounter Care Teams Test Consultant Relationship Specialty Start Date End Date Angeline Klein MD [address] [place] [address] PCP - General Family Medicine 08/21/20 documented as of this encounter
--- OUTSIDE RECORDS SUMMARY | 2025-01-01 16:44 | XMS_ITS | Encounter Summary ---
Author Organization [employer] Address 75 [facility] 7t [place] [address] Care Team Providers Care Commercial Construction Superintendent Name Role Phone Angeline Klein MD Primary Care Provider [phone] Reason for Visit * Reason Onset Date Comments Med Refill 12/20/2024 Encounter Details Date Type Department Care Team ([facility] st Contact Info) Description 12/20/2024 Telephone [facility] MEDICINE [address] [place] [address] Angeline Klein MD [address] [place] [address] Med Refill Social History Tobacco Use Types [...] the past 12 months, has t he [employer], gas, oil or water company threatened to [...] 25 MG tablet To be sent to: [id number] - [place] - [address] [facility] documented in this encounter Plan of Treatment Not on file documented as of this encounter Visit Diagnoses Not on filedocumented in this encounter Additional Health Concerns Assessment Noted Time PHQ-9 Depression Total Score: 4 12/26/19 24 10:32 AM EDT documented as of this encounter Care Teams Commercial Construction Superintendent Relationship Specialty Start Date End Date Angeline Klein MD [address] [place] [address] [place] [id number] PCP - General Family Medicine 08/21/20 documented as of this encounter
--- OUTSIDE RECORDS SUMMARY | 2025-01-01 16:44 | XMS_ITS | Encounter Summary ---
Author Organization [employer] Address [address] [facility] 7t [place] [address] Care Team Providers Care Cdl Driver Name Role Phone Angeline Klein MD Primary Care Provider [phone] Encounter Details Date Type Department Care Team (Late st Contact Info) Description 04/05/2023 Orders Only [facility] MEDICINE [address] [place], [place] [phone] Angeline Klein MD [address] [place], [place] [phone] Primary osteoarthritis of both hips (Primary Dx); [...] neck documented in this encounter Care Teams Cdl Driver Relationship Specialty Start Date End Date Angeline Klein MD [address] [place], [place] [phone] PCP - General Family Medicine 08/21/20 documented as of this encounter
--- OUTSIDE RECORDS SUMMARY | 2025-01-01 16:44 | XMS_ITS | Clinical Summary ---
Author Organization [employer] Address [address] [facility] 7t [place] [address] Care Team Providers Care Building Coordinator Name Role Phone Angeline Klein MD Primary Care Provider [phone] Allergies Active Allergy Reactions Criticality Noted Date [...] HOURS NEEDED FOR NAUSEA 03/16/20 23 Active omeprazole (PriLOSEC) [address] capsule Take 40 mg by mouth in the morning. 07/11/20 23 Active albuterol (2.5 MG/3ML) 0.083% nebulizer [...] CHEMOTHERAPY EVERY 3 WEEKS 04/04/20 24 Active Combivent Respimat 20-100 MCG/ACT inhaler INHALE 1 PUFF BY MOUTH FOUR TIMES DAILY. MAY TAKE ADDITIONAL PUFFS NEEDED. NOT TO EXCEED 6 PUFFS IN 24 HOURS 4 g 5 07/17/20 24 Active lisinopril 10 MG tabletIndications: Hypertension, unspecified type TAKE 1 AND 1/2 TABLETS BY MOUTH EVERY DAY 135 tablet 3 07/22/20 24 Active traMADol (Ultram) 50 MG tablet TAKE 1 TABLET BY MOUTH EVERY 12 HOURS NEEDED FOR BREAKTHROUGH PAIN 05/22/20 24 Active Multiple Vitamin (multivitamin) tablet Take 1 tablet by mouth Once per day. 90 tablet 3 07/25/20 24 Active pravastatin (Pravachol) 40 MG tablet TAKE 1 TABLET(40 MG) BY MOUTH AT BEDTIME 90 tablet 3 08/16/20 24 Active nystatin (Mycostatin) 840592 UNIT/ML suspension Take 1 mL (100,000 Units) by mouth 3 times daily. 45 mL 2 11/30/19 25 025 Active cyanocobalamin (Vitamin B-12) 1000 MCG tabletIndications: Localized edema Take 1 tablet (1,000 mcg) by mouth Once per day. 30 tablet 11 11/30/19 25 026 Active gabapentin (Neurontin) 100 MG capsuleIndications :Localized edema Take 3 capsules (300 mg) by mouth 3 times daily. 270 capsule 11 11/30/19 25 026 Active white petrolatum gel Apply topically if needed for dry skin (on the feet). 113 g 1 11/30/19 25 Active cefuroxime (Ceftin) 250 MG tablet TAKE 1 TABLET BY MOUTH TWICE DAILY FOR 9 DAYS 07/28/20 24 Active ciprofloxacin (Cipro) 250 MG tablet Take 1 tablet by mouth 2 times daily. 09/13/19 25 Active albuterol 108 (90 Base) MCG/ACT inhaler INHALE 2 PUFFS BY MOUTH EVERY 4 TO 6 HOURS NEEDED FOR SHORTNESS OF BREATH OR WHEEZING 11/01/19 25 Active hydrOXYzine pamoate (Vistaril) 25 MG capsuleIndications :Allergic eosinophilia Take 1 capsule (25 mg) by mouth every 8 (eight) hours if needed for itching. 90 capsule 3 12/24/19 25 Active Active Problems Problem Noted Date Diagnosed [...] amlodipine -needs VNA --request today to staff toxicologist to start process for this. -pt on [...] activity. Check home BP BIW and prn CP/OJNES/LAWLER Non smoking patient. Resolved Problems Problem Noted [...] Encounters Date Type Department Care Team Description 12/27/2024 Orders Only GENERIC EXTERNAL DATA DEPARTMENT Provider, Generic External Data 12/23/2024 Orders Only [facility] External Provider, [facility] 12/23/[address] [address] Angeline Klein MD Allergic eosinophilia 12/20/[address] [address] Angeline Klein MD Med Refill 12/17/[address] [address] Angeline Klein MD Nurse Triage 11/29/2024 9:45 AM EDT Office Visit [address] [address] Angeline Klein MD Localized edema (Primary Dx); Dietary counseling; Exercise counseling; Underweight; Inadequate housing utilities; Protein-calorie malnutrition, unspecified severity (CMS/HCC); 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 I have loboabraham mcdaniel 11/29/[address] you [...] season) 2024 12/02/2020 Influenza Vaccine (#1) 2024 2, 06/21/2018, 06/20/2017, Additional history exists Depression Screening [...] PROTHROMBIN TIME-INR Routine 12/27/2024 12:05 PM EDT US RENAL BI Routine 12/23/2024 11:08 AM [...] Recently Relevant to Health Maintenance Results * Prothrombin Time-INR (12/27/2024 12:05 PM EDT) Prothrombin Time 11.9 10.9 - 12.4 SEC [facility] INTERNATIONAL NORM RATIO 1.0 0.9 - 1.1 [facility] Comment:INTERNATIONAL NORMAL IZED RATIO (INR) REFERENCE [...] Provider LAB BLOOD ORDERAB LES Final Result [facility] [address] [place] [address] [phone] * US RENAL BI (12/23/2024 11:08 AM EDT) Anatomical Region Laterality Modality Abdomen Ultrasound 12/23/2024 11:0 8 AM EDT Narrative 12/23/2024 11:51 AM EDT ? [facility] ?[address] ?[place] [address] ? Ultrasound Report ? Signed ? Patient: Alba,Altaf ?MR#: [id number] ?? 260 ? : 1945 ?Acct:[id number] ? Age/Sex: 79 / F ?ADM Date: 04/14/25 ? Loc: HO.US ? Attending : Destiney Palacios MD ? Ordering Physician: Severo Blair MD ?? Date of Service: 12/23/24 ?? Procedure(s): US renal BI ?? Accession Number(s): [id number] ? cc: Severo Blair MD; Angeline Klein [...] DD/ 1108 ? TD/TT: 12/23/24 1119 ? Quarry Manager: ? Procedure Note Bayron, Image - 12/23/[address] [address] Ultrasound Report Signed Patient: Altaf Alba#: [id number] 260 : 6Acct:[id number] Age/Sex: 79 / FADM Date: 12/23/24 Loc: HO.US Attending Dr: Destiney Palacios MD Ordering Physician: Severo Blair MD Date of Service: 12/23/24 Procedure(s): US renal BI Accession Number(s): [id number] cc: Severo Blair MD; Angeline Klein EXAMINATION: [...] Bennett Alejandro MD 12/23/2024 11:48 AM EDT RP Dictated By: Bennett Alejandro MD Signed By: <Electronically signed by Bennett Alejandro MD in OV> 12/23/24 1148 DD/ 1108 TD/TT: 12/23/24 1119 Quarry Manager: [facility] External Provider IMG US PROCEDURES Edited Result - Final * XR Chest 2 Views (11/20/2024 5:14 PM EDT) Anatomical Region Laterality Modality Chest Radiographic Manju ging 11/20/2024 5:14 PM EDT Narrative 11/20/2024 5:15 PM EDT ? [facility] ?[address] ?[place] [address] ?XRay Report ? Signed ? Patient: Alba,Altaf ?MR#: [id number] ?? 260 ? : 1945 ?Acct:[id number] ? Age/Sex: 79 / F ?ADM Date: 03/12/25 ? Loc: HO.CT ? Attending Dr: Destiney Palacios MD ? Ordering Physician: Endy Thakkar MD ?? Date of Service: 11/20/24 ?? Procedure(s): XR chest 2V ?? Accession Number(s): [id number] ? cc: Angeline Klein; Endy Thakkar MD ? CLINICAL HISTORY: J45.50 - Severe persistent asthma, uncomplicated ? 2 view chest x-ray ? Comparison: CR/ID/SR - XR CHEST 2V - 04/09/24 09:11 [...] 11/20/24 1715 ? DD/ 1714 ? TD/TT: 11/20/24 1714 ? Quarry Manager: ? Procedure Note Donkamala, Image - 11/20/2024 [place] [address] XRay Report Signed Patient: Altaf AlbaMR#: [id number] 260 : 6Acct:[id number] Age/Sex: 79 / FADM Date: 11/20/24 Loc: HO.CT Attending Dr: Destiney Palacios MD Ordering Physician: Endy Thakkar MD Date of Service: 11/20/24 Procedure(s): XR chest 2V Accession Number(s): [id number] cc: Angeline Klein; Endy Thakkar MD CLINICAL HISTORY: J45.50 - Severe persistent asthma, uncomplicated 2 view chest x-ray Comparison: CR/ID/SR - XR CHEST 2V - 04/09/24 09:11 [...] in OV> 11/20/241714 DD/ 13 TD/TT: 11/20/241713 Quarry Manager: [facility] External Provider IMG XR PROCEDURES Final Result * CT Abdomen Pelvis w/ Contrast (11/20/2024 1:06 PM EDT) Anatomical Region Laterality Modality Body, Pelvis, Abdomen Computed T omography 11/20/2024 1:06 PM EDT Narrative 11/20/2024 1:08 PM EDT ? [facility] ?[address] ?[place] [address] ? CT Scan Report ? Signed ? Patient: Altaf Alba ?MR#: [id number] ?? 260 ? : 1945 ?Acct:[id number] ? Age/Sex: 79 / F ?ADM Date: 11/20/24 ? Loc: HO.CT ? Attending Dr: Destiney Palacios MD ? Ordering Physician: Destiney Palacios MD ?? Date of Service: 11/20/24 ?? Procedure(s): CT abdomen pelvis w IV con ?? Accession Number(s): [id number] ? cc: Destiney Palacios MD; Angeline Klein ? Report Number: ?? [id number]: Total DLP = 1010.00 mGy-cm ? CLINICAL [...] image 15). No hydroureter. ? Normal appendix. Fkif-ct-owrkamhd colonic stool burden. No bowel ?? obstruction. [...] DD/ 1306 ? TD/TT: 11/20/24 1306 ? Quarry Manager: ? Procedure Note Donotuseinterpreter, Image - 11/20/[address] [address] [address] Scan Report Signed Patient: Altaf AlbaMR#: [id number] 260 : 6Acct:[id number] Age/Sex: 79 / FADM Date: 11/20/24 Loc: HO.CT Attending Dr: Destiney Palacios MD Ordering Physician: Destiney Palacios MD Date of Service: 11/20/24 Procedure(s): CT abdomen pelvis w IV con Accession Number(s): [id number] cc: Destiney Palacios MD; Angeline Klein Report Number: [id number]: Total DLP = 1010.00 mGy-cm CLINICAL HISTORY: [...] 3, image 15). No hydroureter. Normal appendix. Xlby-ir-kttkjrxu colonic stool burden. No bowel obstruction. Mild [...] 11/20/24 1307 DD/ 1306 TD/TT: 11/20/24 1306 Quarry Manager: us [facility] External Provider IMG CT PROCEDURES Final Result * MR Pelvis w/ and w/o Contrast (10/27/2024 3:14 PM EST) Anatomical Region Laterality Modality Body, Pelvis Magnetic Resonan ce 10/27/2024 3:14 PM EST Narrative 10/27/2024 3:15 PM EST ? [place] [facility] ?[address] ?[place] [address] ? Magnetic Resonance Report ? Signed ? Patient: Alba,Altaf ?MR#: [id number] ?? 260 ? : 1945 ?Acct:[id number] ? Age/Sex: 79 / F ?ADM Date: 10/27/24 ? Loc: HO.MRI ? Attending Dr: Destiney Palacios MD ? Ordering Physician: Destiney Palacios MD ?? Date of Service: 10/27/24 ?? Procedure(s): MR pelvis wo/w con ?? Accession Number(s): [id number] ? cc: Destiney Palacios MD; Angeline Klein [...] DD/ 1514 ? TD/TT: 10/27/24 1514 ? Quarry Manager: ? Procedure Note Donotrhettinterpreter, Image - 10/27/2024 [place] [address] Magnetic Resonance Report Signed Patient: Altaf AlbaMR#: [id number] 260 : 6Acct:[id number] Age/Sex: 79 / FADM Date: 10/27/24 Loc: HO.MRI Attending Dr: Destiney Palacios MD Ordering Physician: Destiney Palacios MD Date of Service: 10/27/24 Procedure(s): MR pelvis wo/w con Accession Number(s): [id number] cc: Destiney Palacios MD; Angeline Klein CLINICAL [...] 10/27/24 1515 DD/ 1514 TD/TT: 10/27/24 1514 Quarry Manager: [facility] External Provider IMG MRI PROCEDURES Edited Result [...] ?? Timoteo SAMPSON et al. SHARYN. 2013;310(19): 7415-4552 ?? (http://education.[employer]/faq/RDT626) Non-HDL Cholesterol 116 <130 mg/dL (calc) [facility] Comment: For patients with diabetes plus 1 major ASCVD risk ?? factor, treating to a non-HDL-C goal of <100 mg/dL ?? (LDL-C of <70 mg/dL) is considered a therapeutic ?? option. Triglycerides 116 <150 mg/dL [facility] 01/22/2021 9:15 AM EDT us Angeline Klein MD LAB BLOOD ORDERABLES Final Res ult Performing Organization Address [facility] Co de Phone Number [facility] [address] * HEPATITIS A,B,C PROFILE (08/22/2019 1:30 PM EST) HEPATITIS B CORE ANTIBODY NONREACTIVE NONREACTIVE [facility] HEPATITIS B INTERPRETATION SEE NOTE [facility] Comment:Negative for Hepatit is B. HEPATITIS B SURFACE ANTIBODY NONREACTIVE NONREACTIVE [facility] Comment:NONREACTIVE: < 8.00 mIU/mL HEPATITIS B SURFACE ANTIGEN NEGATIVE NEGATIVE [facility] HEPATITIS C ANTIBODY NONREACTIVE NONREACTIVE [facility] Comment: Antibodies to HCV not detected; does not exclude early acute HCV infection. 08/22/2019 1:30 PM EST us Historical Provider HISTORICAL/NON ORDERABLE LABS Final Result Performing Organization Address [facility] de Phone Number [facility] [address] from Last 3 Months or Most Recently Relevant to Health Maintenance Insurance [facility] Care Teams Building Coordinator Relationship Specialty Start Date End Date Angeline Klein MD [address] [place] [address] PCP - General Family Medicine 08/21/20
--- OUTSIDE RECORDS SUMMARY | 2025-01-01 16:44 | XMS_ITS | Encounter Summary ---
Author Organization [employer] [facility] Address [address] 7t [place] [address] Care Team Providers Care Knitting Machine Fixer Name Role Phone Angeline Klein MD Primary Care Provider [phone] Encounter Details Date Type Department Care Team (Late st Contact Info) Description 08/01/2022 Abstract [facility] MEDICINE [address] [place], [place] [phone] Angeline Klein MD [address] [place] [address] Social History Tobacco Use Types Packs/Day Years [...] on filedocumented in this encounter Care Teams Knitting Machine Fixer Relationship Specialty Start Date End Date Angeline Klein MD [address] [place], [place] [phone] PCP - General Family Medicine 08/21/20 documented as of this encounter
--- OUTSIDE RECORDS SUMMARY | 2025-01-01 16:44 | XMS_ITS | Encounter Summary ---
Author Organization [employer] Address [address] [facility] 7t [place] [address] Care Team Providers Care Senior Asic Engineer Name Role Phone Angeline Klein MD Primary Care Provider [phone] Encounter Details Date Type Department Care Team (Late st Contact Info) Description 11/11/2022 Orders Only [facility] MEDICINE [address] [place], [place] [phone] Angeline Klein MD [address] [place], [place] [phone] 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) [...] neck documented in this encounter Care Teams Senior Asic Engineer Relationship Specialty Start Date End Date Angeline Klein MD [address] [place], [place] [phone] PCP - General Family Medicine 08/21/20 documented as of this encounter
--- OUTSIDE RECORDS SUMMARY | 2025-01-01 16:44 | XMS_ITS | Encounter Summary ---
Author Organization [employer] Address [address] [facility] 7t [place] [address] Care Team Providers Care Parimutuel Ticket Checker Name Role Phone Angeline Klein MD Primary Care Provider [phone] Encounter Details Date Type Department Care Team (Late st Contact Info) Description 02/01/2023 Abstract [facility] MEDICINE [address] [place], [place] [phone] Angeline Klein MD [address] [place] [address] Social History Tobacco Use Types Packs/Day Years [...] on filedocumented in this encounter Care Teams Parimutuel Ticket Checker Relationship Specialty Start Date End Date Angeline Klein MD [address] [place], [place] [phone] PCP - General Family Medicine 08/21/20 documented as of this encounter
--- OUTSIDE RECORDS SUMMARY | 2025-01-01 16:44 | XMS_ITS | Encounter Summary ---
Author Organization [employer] Address [address] [facility] [address] [place] [address] Care Team Providers Care Rock Singer Name Role Phone Angeline Klein MD Primary Care Provider [phone] Reason for Visit * Reason Onset Date Comments Appointment Request 05/22/2023 Encounter Details Date Type Department Care Team ([facility] st Contact Info) Description 05/22/2023 Telephone [facility] MEDICINE [address] [place] [address] Angeline Klein MD [address] [place] [address] Appointment Request Social History Tobacco Use Types [...] @ 2:30 pm. Please contact pt at [phone] documented in this encounter Plan of Treatment Not on file documented as of this encounter Visit Diagnoses Not on filedocumented in this encounter Care Teams Rock Singer Relationship Specialty Start Date End Date Angeline Klein MD [address] [place] [phone] PCP - General Family Medicine 08/21/20 documented as of this encounter
--- OUTSIDE RECORDS SUMMARY | 2025-01-01 16:44 | XMS_ITS | Encounter Summary ---
Author Organization [employer] Address [address] [place] [address] Care Team Providers Care Editorial Clerk Name Role Phone Angeline Klein MD Primary Care Provider [phone] Encounter Details Date Type Department Care Team (Late st Contact Info) Description 05/10/2024 Orders Only [facility] MEDICINE [address] [place], [place] [phone] Angeline Klein MD [address] [place] [address] Oral thrush (Primary Dx) Social History Tobacco [...] documented as of this encounter Care Teams Editorial Clerk Relationship Specialty Start Date End Date Angeline Klein MD [address] [place] [address] PCP - General Family Medicine 08/21/20 documented as of this encounter
--- OUTSIDE RECORDS SUMMARY | 2025-01-01 16:44 | XMS_ITS | Encounter Summary ---
Author Organization [employer] Address [address] [facility] 7t [place] [address] Care Team Providers Care Recreation Technician Name Role Phone Angeline Klein MD Primary Care Provider [phone] Encounter Details Date Type Department Care Team (Late st Contact Info) Description 03/19/2024 Orders Only [facility] MEDICINE [address] [place], [place] [phone] Angeline Klein MD [address] [place], [place] [phone] Mixed stress and urge urinary incontinence (Primary [...] documented as of this encounter Care Teams Recreation Technician Relationship Specialty Start Date End Date Angeline Klein MD [address] [place] [phone] PCP - General Family Medicine 08/21/20 documented as of this encounter
--- OUTSIDE RECORDS SUMMARY | 2025-01-01 16:44 | XMS_ITS | Data Portability ---
Author Organization [facility] [employer] [place], [place] - [facility] Address [address] [place] [address] Care Team Providers Care Procurement Consultant Name Role Phone HIM CCA OTHER [facility] OTHER Assessment No assessment recorded. Plan of Treatment Reminders Order Date Submit Date Provider Last Modified By Organization Details Last Modified Time Details Appointments None recorded. Lab rapid strep group A, throat [address] [facility], [address] [place] [address], [phone] 12:54:14 Referral None recorded. Procedures None recorded. Surgeries None recorded. Imaging None recorded. Medication Orders nystatin 100,000 unit/mL oral suspension 2023 024 [id number], [address] [place], [place], [id number], 12:54:22 Patient TargetsNo targets recorded. Patient InstructionsNo instructions recorded. Reason for Referral None Reported. Results Created Date Observation Date Name Description Value Unit Range Abnormal Flag Note LastModifiedBy Organization Detail LastModifiedTime 02/12/20 24 02/12/2024 rapid strep group A, throa t Strep negati ve Not Available [address], [address] 02/12/2024 12:52:54 Result Notes None recorded. Medical [...] Not available Not available Not available 04/10/2024 05204 02 RxNorm COLLEEN IVAN MD [address] [place] [address],[address], [place], [address], [employer], [place] 4 09:07:46 5743 naproxen medicatio n Not available Not available Not available 04/10/2024 7258 RxNorm COLLEEN IVAN MD [address] [place] [address],[address], [place], [address], [employer], [place] 4 09:08:04 5744 oxycodone medicatio n Not available Not available Not available 04/10/2024 7804 RxNorm COLLEEN IVAN MD [address] [place] [address],[address], [place], [address], [employer] 4 09:08:18 Medications Name Sig Start Date [...] /min 106 mm[Hg] 66 mm[Hg] Not Available 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 Functional Status None recorded. Mental Status None recorded. Family History Nothing Reported. Medical History No medical history recorded. Gynecological HistoryNo gynecological history recorded. Obstetrics History GPAL:G 0 P 0 0 0 0 Past Encounters Encounter ID Performer Location Encounter Start Date Encounter Closed Date Diagnosis/Indication Diagnosis SNOMED-CT Code Diagnosis ICD10 Code Diagnosis Note [id number] Dominick Walker MD Main - [facility] [address] [place] [phone] 02/12/2024 10:22:08 02/12/2024 16:37:24 Candidiasis of mouth 73795098 B37.0 Sent out for rapid strep and refill of Nystatin. [id number] COLLEEN IVAN MD Main - [facility] [address] [place] [phone] 04/10/2024 09:28:55 04/10/2024 11:00:49 Attention to nephrostomy tube 791088995 Z43.6 Evaluation in the field was performed by my account assistant colleague, as noted above, I provided real-time direction and supervisio n for this visit. The evaluation revealed a 78-year-ol d female, status post bilateral nephrostom y tube placement on the or 17 of March, with concerns that the dressing has not been changed since. She denies bleeding, drainage, fever, chills, nausea, and vomiting. Per discussion with the patient via a Montenegrin interprete r, she reports that she has a telehealth visit with Urology on April 12. VSS.Per discussion and per photo view, dressing in place, dry, clean with no urine or blood saturation Impression :B/L nephrostom y tube in place Plan:Since the dressing was intact, the account assistant did not feel comfortabl e changing it [...] [facility] - DOS ON OR AFTER 2022 - DUAL ELIGIBLE - DETENTION OPTIONS AND ONE CARE (MEDICARE REPLACEMENT/ADV ANTAGE - HMO) Altaf Alba [id number] Altaf Alba 04/10/2024 1 [facility] - DOS ON OR AFTER 2022 - DUAL ELIGIBLE - DETENTION OPTIONS AND ONE CARE (MEDICARE REPLACEMENT/ADV ANTAGE - HMO) Altaf lAba [id number] Altaf Alba Notes Date Note Type Note [...] in clear full sentences. Pt seen at [facility] 01/08 for similar sx and given Nystatin for thrush as has hx of this. Pt unable to come into office. Pt agrees to [facility] for eval. ................... ................... ................... ................... ................... ................... ................... ........ CRC Nurse Triage Notes (Marilia Bee): Comments: CRC RN DID NOT NEED FURTHER INFO [employer] POC Test Results from Yovany Sesay BLAIR Rapid strep test (1) [10:30] Strep: - ................... ................... ................... ................... ................... ................... ................... ........ Quartz Cutter Note From Yovany Sesay: Pt reports off [...] LE edema. Rapid strep negative. [facility] contacted and will send nystatin rx to pharmacy. Pt instructed to f/u with PCP as they requested. Red flags reviewed. ................... ................... ................... ................... ................... ................... ................... ........ Disposition: Fulfilled Dominick Walker MD [address] [facility],[address], [place], [address], [employer] 02/12/2024 12:54:18 04/10/2024 text/html CRC Nurse Triage Notes (Tori Nolasco): Reason For Request: Wound care Chief Complaints: Wound Care PMH: COPD/Asthma, Hypertension, Cancer, Heart Disease Allergies: Aspirin, Ibuprofen, Morphine Other Allergies: dupixent, MS, ASA, naproxen, oxycodone, mult others that she can't recall Comments: Referral taken via [employer] [id number]. Member calling in to place a referral, [...] ................... ................... ................... ................... ................... ................... ........ Quartz Cutter Note From Jelani Geller: Patient conscious alert [...] odor, discharge, or other concern. [facility] agrees encourages patient to follow up with urology, patient has an appointment April 12. Red flags patient education discussed. Patient demonstrates understanding of care and plan. Quartz Cutter Allergies: Aspirin, Ibuprofen, Morphine ................... ................... ................... ................... ................... ................... ................... ........ Disposition: Chantal IVAN MD [address] [facility],[address], [place], [address], RADHA COELHO 04/10/2024 10:27:47 OBGyn Episode No OBEpisode recorded.
--- OUTSIDE RECORDS SUMMARY | 2025-01-01 16:44 | XMS_ITS | Clinical Summary ---
Author Organization [facility] Facility Address [address] [address] Care Team Providers Care Welfare Director Name Role Phone Unavailable Primary Care Provider [...]
--- OUTSIDE RECORDS SUMMARY | 2025-01-01 16:44 | XMS_ITS | Encounter Summary ---
Author Organization [facility] Address [address] [facility] 7t [place] [address] Care Team Providers Care Chemical Plant Manager Name Role Phone Angeline Klein MD Primary Care Provider [phone] Reason for Visit * Reason Onset Date Comments Nurse Triage 03/29/2024 Encounter Details Date Type Department Care Team ([facility] st Contact Info) Description 03/29/2024 Telephone [facility] MEDICINE [address] [place] [address] Angeline Klein MD [address] [place] [address] Nurse Triage Social History Tobacco Use Types [...] 03/29/2024 3:15 PM EDT Triage call with [place] [employer] ID [id number] Pt reports fatigue for last 3 days. [...] Reason: Caller denied all higher acuity questions Romanian Speaker (Accepted Airborne Operations) documented in this encounter Plan of Treatment Not on file documented as of this encounter Visit Diagnoses Not on filedocumented in this encounter Additional Health Concerns Assessment Noted Time PHQ-9 Depression Total Score: 4 12/26/19 24 10:32 AM EDT documented as of this encounter Care Teams Chemical Plant Manager Relationship Specialty Start Date End Date Angeline Klein MD [address] [place] [address] PCP - General Family Medicine 08/21/20 documented as of this encounter
--- OUTSIDE RECORDS SUMMARY | 2025-01-01 16:44 | XMS_ITS | Encounter Summary ---
Author Organization [employer] Address [address] [facility] [address] [place] [address] Care Team Providers Care Rent Collector Name Role Phone Angeline Klein MD Primary Care Provider [phone] Encounter Details Date Type Department Care Team ([facility] st Contact Info) Description 09/23/2022 Telephone [facility] MEDICINE [address] [place], [place] [phone] Angeline Klein MD [address] [place] [address] Social History Tobacco Use Types Packs/Day Years [...] on filedocumented in this encounter Care Teams Rent Collector Relationship Specialty Start Date End Date Angeline Klein MD [address] [place] [address] PCP - General Family Medicine 08/21/20 documented as of this encounter
--- OUTSIDE RECORDS SUMMARY | 2025-01-01 16:44 | XMS_ITS | Encounter Summary ---
Author Organization [employer] Address [address] [facility] 7t [place] [address] Care Team Providers Care Naval Engineer Name Role Phone Angeline Klein MD Primary Care Provider [phone] Encounter Details Date Type Department Care Team (Late st Contact Info) Description 04/12/2024 Orders Only [facility] MEDICINE [address] [place], [place] [phone] Guadalupe Garrido MD [address] [place] [address] Social History Tobacco Use Types Packs/Day Years [...] documented as of this encounter Care Teams Naval Engineer Relationship Specialty Start Date End Date Angeline Klein MD [address] [place] [address] PCP - General Family Medicine 08/21/20 documented as of this encounter
--- OUTSIDE RECORDS SUMMARY | 2025-01-01 16:44 | XMS_ITS | Encounter Summary ---
Author Organization [facility] Address [address] [facility] 7t [place] [address] Care Team Providers Care Egg Caser Name Role Phone Angeline Klein MD Primary Care Provider [phone] Reason for Visit * Reason Onset Date Comments Referral 04/04/2023 Encounter Details Date Type Department Care Team ([facility] st Contact Info) Description 04/04/2023 Telephone [facility] MEDICINE [address] [place] [address] Angeline Klein MD [address] [place] [address] Referral Social History Tobacco Use Types Packs/Day [...] 11:18 AM EDT TC placed to pt [phone] in regards to below message however number is OOS. RN called pt's OPHELIA Larson [phone] who was able to confirm the pt DOES want to go to [facility] [place] management. RN informed[facility] PCP would place referral today. OPHELIA Larson also provided RN w/ updated number for the pt ([phone]). RN has updated pt's chart. Please place referral to [facility] pain management. * Telephone Encounter - Mary Devon - 04/04/2023 2:43 PM EDT Tc from kelly with [facility] requesting a new referral for pain management. documented in this encounter Plan of Treatment Not on file documented as of this encounter Visit Diagnoses Not on filedocumented in this encounter Care Teams Egg Caser Relationship Specialty Start Date End Date Angeline Klein MD [address] [place] [address] PCP - General Family Medicine 08/21/20 documented as of this encounter
== END 2025-01-01 14:54 | disposition home or self-care (01) ==
LOC: HO.HUSH 13:56
PROVIDERS: PCP General Practice; Visit Provider Urology
DX: N13.30 Unspecified hydronephrosis (principal); C67.9 Malignant neoplasm of bladder, unspecified
CPT/HCPCS: 99214

== ENCOUNTER → 2025-01-06 10:21 | Outpatient (BNVA) | payer OTHER, SELFPAY | PROVIDERS: PCP General Practice; Visit Provider Urology ==

== ENCOUNTER 2025-01-16 10:42 | Day surgery (SDC) | payer OTHER, SELFPAY ==
--- OUTSIDE RECORDS SUMMARY | 2025-01-14 12:06 | XMS_ITS | Encounter Summary ---
Author Organization [employer] Address [address] [facility] 7t [place] [address] Care Team Providers Care Company Truck Driver Name Role Phone Angeline Klein MD Primary Care Provider [phone] Encounter Details Date Type Department Care Team (Late st Contact Info) Description 04/12/2024 Orders Only [facility] MEDICINE [address] [place], [place] [phone] Guadalupe Garrido MD [address] [place] [address] Social History Tobacco Use Types Packs/Day Years [...] documented as of this encounter Care Teams Company Truck Driver Relationship Specialty Start Date End Date Angeline Klein MD [address] [place] [address] PCP - General Family Medicine 08/21/20 documented as of this encounter
--- OUTSIDE RECORDS SUMMARY | 2025-01-14 12:06 | XMS_ITS | Encounter Summary ---
Author Organization [employer] Address [address] [facility] 7t [place] [address] Care Team Providers Care Brand Ambassador Name Role Phone Angeline Klein MD Primary Care Provider [phone] Reason for Visit * Reason Onset Date Comments Appointment Request 05/22/2023 Encounter Details Date Type Department Care Team ([facility] st Contact Info) Description 05/22/2023 Telephone [facility] MEDICINE [address] [place] [address] Angeline Klein MD [address] [place] [address] Appointment Request Social History Tobacco Use Types [...] @ 2:30 pm. Please contact pt at [phone] documented in this encounter Plan of Treatment Not on file documented as of this encounter Visit Diagnoses Not on filedocumented in this encounter Care Teams Brand Ambassador Relationship Specialty Start Date End Date Angeline Klein MD [address] [place] [address] PCP - General Family Medicine 08/21/20 documented as of this encounter
--- OUTSIDE RECORDS SUMMARY | 2025-01-14 12:06 | XMS_ITS | Encounter Summary ---
Author Organization [employer] Address [address] [facility] 7t [place] [address] Care Team Providers Care Manager Equity Name Role Phone Angeline Klein MD Primary Care Provider [phone] Reason for Visit * Reason Onset Date Comments Nurse Triage 03/29/2024 Encounter Details Date Type Department Care Team ([facility] st Contact Info) Description 03/29/2024 Telephone [facility] MEDICINE [address] [place] [address] Angeline Klein MD [address] [place] [address] Nurse Triage Social History Tobacco Use Types [...] 03/29/2024 3:15 PM EDT Triage call with [place] Supervisor [employer] ID [id number] Pt reports fatigue for last 3 days. [...] Reason: Caller denied all higher acuity questions South Korean Speaker (Accepted Supervisor Ordnance Truck Installation) documented in this encounter Plan of Treatment Not on file documented as of this encounter Visit Diagnoses Not on filedocumented in this encounter Additional Health Concerns Assessment Noted Time PHQ-9 Depression Total Score: 4 12/26/19 24 10:32 AM EDT documented as of this encounter Care Teams Manager Equity Relationship Specialty Start Date End Date Angeline Klein MD [address] [place] [address] PCP - General Family Medicine 08/21/20 documented as of this encounter
--- OUTSIDE RECORDS SUMMARY | 2025-01-14 12:06 | XMS_ITS | Data Portability ---
Author Organization [facility] [employer] [place], [place] - [facility] Address [address] [place] [address] Care Team Providers Care Gauger Delivery Name Role Phone HIM CCA OTHER [facility] OTHER Assessment No assessment recorded. Plan of Treatment Reminders Order Date Submit Date Provider Last Modified By Organization Details Last Modified Time Details Appointments None recorded. Lab rapid strep group A, throat 2023 024 jessica [facility], [address] [place] [address], [id number] 12:54:14 Referral None recorded. Procedures None recorded. Surgeries None recorded. Imaging None recorded. Medication Orders nystatin 100,000 unit/mL oral suspension 2023 024 [facility][id number], [address] [place], [place], [phone], 12:54:22 Patient TargetsNo targets recorded. Patient InstructionsNo instructions recorded. Reason for Referral None Reported. Results Created Date Observation Date Name Description Value Unit Range Abnormal Flag Note LastModifiedBy Organization Detail LastModifiedTime 02/12/20 24 02/12/2024 rapid strep group A, throa t Strep negati ve Not Available [address], [address] 02/12/2024 12:52:54 Result Notes None recorded. Medical [...] Not available Not available Not available 04/10/2024 [address]307 02 RxNorm COLLEEN IVAN MD [address] [place] [address],[address], [place], [address], [employer] 4 09:07:46 5743 naproxen medicatio n Not available Not available Not available 04/10/2024 7258 RxNorm COLLEEN IVAN MD [address] [place] [address],[address], [place], [address], [employer] 4 09:08:04 5744 oxycodone medicatio n Not available Not available Not available 04/10/2024 7804 RxNorm COLLEEN IVAN MD [address] [place] [address],[address], [place], [address], [employer] 4 09:08:18 Medications Name Sig Start Date [...] /min 106 mm[Hg] 66 mm[Hg] Not Available [employer] - production 4 10:22:14 Date Recorded Oxygen saturation Oxygen saturation in Arterial blood by Pulse oximetry Body temperature Body weight Heart rate Body height Respiratory rate Systolic blood pressure Diastolic blood pressure Provider Name and Address Organization Details Last Updated DateTime 4 98 % 98 % 99.1 [degF] 85082 g 90 /min 152.4 cm 14 /min 120 mm[Hg] 80 mm[Hg] Not Available [employer] - production 4 09:29:14 Social History None recorded. Functional Status None recorded. Mental Status None recorded. Family History Nothing Reported. Medical History No medical history recorded. Gynecological HistoryNo gynecological history recorded. Obstetrics History GPAL:G 0 P 0 0 0 0 Past Encounters Encounter ID Performer Location Encounter Start Date Encounter Closed Date Diagnosis/Indication Diagnosis SNOMED-CT Code Diagnosis ICD10 Code Diagnosis Note [id number] Dominick Walker MD Main - [facility] [address] [place] [phone] 02/12/2024 10:22:08 02/12/2024 16:37:24 Candidiasis of mouth 55459704 B37.0 Sent out for rapid strep and refill of Nystatin. [id number] COLLEEN IVAN MD Main - [facility] [address] [place] [phone] 04/10/2024 09:28:55 04/10/2024 11:00:49 Attention to nephrostomy tube 108267522 Z43.6 Evaluation in the field was performed by my college director colleague, as noted above, I provided real-time [...] place Plan:Since the dressing was intact, the college director did not feel comfortabl e changing it [...] Brooks Member ID Guarantor Name 02/12/2024 1 [facility] - DOS ON OR AFTER 2022 - DUAL ELIGIBLE - [facility] OPTIONS AND ONE CARE (MEDICARE REPLACEMENT/ADV ANTAGE - HMO) Altaf Alba [id number] Altaf Alba 04/10/2024 1 [facility] - DOS ON OR AFTER 2022 - DUAL ELIGIBLE - [facility] OPTIONS AND ONE CARE (MEDICARE REPLACEMENT/ADV ANTAGE - HMO) Altaf Alba [id number] Altaf Alba Notes Date Note Type Note [...] in clear full sentences. Pt seen at [facility] 01/08 for similar sx and given Nystatin for thrush as has hx of this. Pt unable to come into office. Pt agrees to [facility] for eval. ................... ................... ................... ................... ................... ................... ................... ........ CRC Nurse Triage Notes (Marilia Bee): Comments: CRC RN DID NOT NEED FURTHER INFO Substance Abuse Specialist POC Test Results from Yovany Sesay BLAIR Rapid strep test (1) [10:30] Strep: - ................... ................... ................... ................... ................... ................... ................... ........ Substance Abuse Specialist Note From Yovany Sesay: Pt reports off [...] exam. No LE edema. Rapid strep negative. [facility] contacted and will send nystatin rx to pharmacy. Pt instructed to f/u with PCP as they requested. Red flags reviewed. ................... ................... ................... ................... ................... ................... ................... ........ Disposition: Fulfilled Dominick Walker MD [address] [facility],[address], [place], [address], [employer] 02/12/2024 12:54:18 04/10/2024 text/html CRC Nurse Triage Notes (Tori Nolasco): Reason For Request: Wound care Chief Complaints: Wound Care PMH: COPD/Asthma, Hypertension, Cancer, Heart Disease Allergies: Aspirin, Ibuprofen, Morphine Other Allergies: dupixent, MS, ASA, naproxen, oxycodone, mult others that she can't recall Comments: Referral taken via Cleaning Staff Supervisor [id number]. Member calling in to place a referral, [...] ................... ................... ................... ................... ................... ................... ........ Substance Abuse Specialist Note From Jelani Geller: Patient conscious alert [...] moisture, discoloration, odor, discharge, or other concern. [facility] agrees encourages patient to follow up with urology, patient has an appointment April 12. Red flags patient education discussed. Patient demonstrates understanding of care and plan. Substance Abuse Specialist Allergies: Aspirin, Ibuprofen, Morphine ................... ................... ................... ................... ................... ................... ................... ........ Disposition: Chantal IVAN MD [address] [facility],[address], [place], [address], RADHA COELHO 04/10/2024 10:27:47 OBGyn Episode No OBEpisode recorded.
--- OUTSIDE RECORDS SUMMARY | 2025-01-14 12:06 | XMS_ITS | Encounter Summary ---
Author Organization [employer] Address [address] [facility] 7t [place] [address] Care Team Providers Care Customer Service Voice Name Role Phone Angeline Klein MD Primary Care Provider [phone] Encounter Details Date Type Department Care Team (Late st Contact Info) Description 05/10/2024 Orders Only [facility] MEDICINE [address] [place], [place] [phone] Angeline Klein MD [address] [place] [address] Oral thrush (Primary Dx) Social History Tobacco [...] documented as of this encounter Care Teams Customer Service Voice Relationship Specialty Start Date End Date Angeline Klein MD [address] [place] [address] PCP - General Family Medicine 08/21/20 documented as of this encounter
--- OUTSIDE RECORDS SUMMARY | 2025-01-14 12:06 | XMS_ITS | Encounter Summary ---
Author Organization [employer] Address [address] [facility] 7t [place] [address] Care Team Providers Care Retail Center Receptionist Name Role Phone Angeline Klein MD Primary Care Provider [phone] Encounter Details Date Type Department Care Team (Late st Contact Info) Description 04/05/2023 Orders Only [facility] MEDICINE [address] [place], [place] [phone] Angeline Klein MD [address] [place], [place] [phone] Primary osteoarthritis of both hips (Primary Dx); [...] neck documented in this encounter Care Teams Retail Center Receptionist Relationship Specialty Start Date End Date Angeline Klein MD [address] [place], [place] [phone] PCP - General Family Medicine 08/21/20 documented as of this encounter
--- OUTSIDE RECORDS SUMMARY | 2025-01-14 12:06 | XMS_ITS | Encounter Summary ---
Author Organization [employer] Address [address] [facility] 7t [place] [address] Care Team Providers Care Inflatable Buildings Laminator Name Role Phone Angeline Klein MD Primary Care Provider [phone] Encounter Details Date Type Department Care Team (Late st Contact Info) Description 03/19/2024 Orders Only [facility] MEDICINE [address] [place], [place] [phone] Angeline Klein MD 230 [place] [address] Mixed stress and urge urinary incontinence (Primary [...] documented as of this encounter Care Teams Inflatable Buildings Laminator Relationship Specialty Start Date End Date Angeline Klein MD [address] [place] [address] PCP - General Family Medicine 08/21/20 documented as of this encounter
--- OUTSIDE RECORDS SUMMARY | 2025-01-14 12:06 | XMS_ITS | Clinical Summary ---
Author Organization [facility] Facility Address [address] [address] Care Team Providers Care Radio Communication Coordinator Name Role Phone Unavailable Primary Care Provider [...]
--- OUTSIDE RECORDS SUMMARY | 2025-01-14 12:06 | XMS_ITS | Encounter Summary ---
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
--- OUTSIDE RECORDS SUMMARY | 2025-01-14 12:06 | XMS_ITS | Encounter Summary ---
Author Organization [employer] Address 75 [facility] 7t [place] [address] Care Team Providers Care Lint Cleaner Name Role Phone Angeline Klein MD Primary Care Provider [phone] Encounter Details Date Type Department Care Team (Late st Contact Info) Description 08/01/2022 Abstract [facility] MEDICINE 230 [place], [place] [phone] Angeline Klein MD 230 [place], [place] [phone] Social History Tobacco Use Types Packs/Day Years [...] on filedocumented in this encounter Care Teams Lint Cleaner Relationship Specialty Start Date End Date Angeline Klein MD 230 [place], [place] [phone] PCP - General Family Medicine 08/21/20 documented as of this encounter
--- OUTSIDE RECORDS SUMMARY | 2025-01-14 12:06 | XMS_ITS | Encounter Summary ---
Author Organization [employer] Address [address] [facility] 7t [place] [address] Care Team Providers Care Interpreter And Translator Name Role Phone Angeline Klein MD Primary Care Provider [phone] Encounter Details Date Type Department Care Team ([facility] st Contact Info) Description 09/23/2022 Telephone [facility] MEDICINE 230 [place], [place] [phone] Angeline Klein MD 230 [place], [place] [phone] Social History Tobacco Use Types Packs/Day Years [...] on filedocumented in this encounter Care Teams Interpreter And Translator Relationship Specialty Start Date End Date Angeline Klein MD 230 [place], [place] [phone] PCP - General Family Medicine 08/21/20 documented as of this encounter
--- OUTSIDE RECORDS SUMMARY | 2025-01-14 12:06 | XMS_ITS | Encounter Summary ---
Author Organization [employer] Address [address] [facility] 7t [place] [address] Care Team Providers Care Ladle Liner Helper Name Role Phone Angeline Klein MD Primary Care Provider [phone] Encounter Details Date Type Department Care Team (Late st Contact Info) Description 02/01/[address] [facility] MEDICINE 230 [place], [place] [phone] Angeline Klein MD 230 [place] [address] Social History Tobacco Use Types Packs/Day Years [...] on filedocumented in this encounter Care Teams Ladle Liner Helper Relationship Specialty Start Date End Date Angeline Klein MD 230 [place], [place] [phone] PCP - General Family Medicine 08/21/20 documented as of this encounter
--- OUTSIDE RECORDS SUMMARY | 2025-01-14 12:06 | XMS_ITS | Clinical Summary ---
Author Organization [employer] Address 75 [facility] 7t [place] [address] Care Team Providers Care Restaurant Culinary Manager Name Role Phone Angeline Klein MD Primary Care Provider [phone] Allergies Active Allergy Reactions Criticality Noted Date [...] BEDTIME 90 tablet 3 08/16/20 24 Active cyanocobalamin (Vitamin B-12) 1000 MCG tabletIndications: [...] itching. 90 capsule 3 12/24/19 25 Active nystatin (Mycostatin) 084377 UNIT/ML suspension Take 1 mL (100,000 Units) by mouth 3 times daily. 45 mL 2 11/30/19 25 025 Active Problems Problem Noted Date Diagnosed Date [...] amlodipine -needs VNA --request today to staff combat information center officer to start process for this. -pt on [...] Continue followup with oncology and urology at [facility] Has next biopsy planned for Aug 19, [address] Blair Assessment & Plan (12/26/2023 11:21 AM EDT): Continue followup with oncology and urology at [facility] Disease is spreading, will discuss therapeutic options with Dr Palacios tomorrow Assessment & Plan (05/01/2023 4:22 PM EDT): Continue followup with oncology and urology at [facility] No signs of infection or complication currently [...] scheduled MRI with patient, Dec 2 at [facility], so that she can [...] Case has been discussed with ER at [facility]>. Encounters Date Type Department Care Team Description 12/27/2024 Orders Only GENERIC EXTERNAL DATA DEPARTMENT Provider, Generic External Data 12/23/2024 Orders Only [facility] External Provider, [facility] 12/23/[address] [address] Angeline Klein MD Allergic eosinophilia 12/20/[address] [address] Angeline Klein MD Med Refill 12/17/[address] [address] Angeline Klein MD Nurse Triage 11/29/2024 9:45 AM EDT Office Visit [address] [address] Angeline Klein MD Localized edema (Primary Dx); Dietary counseling; Exercise counseling; Underweight; Inadequate housing utilities; Protein-calorie malnutrition, unspecified severity (CMS/HCC); 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) 11/29/2024 Travel 11/26/[address] [address] Angeline Klein MD Nurse Triage 10/27/2024 Orders Only [facility] External Provider, [facility] from Last 3 Months Immunizations Name [...] Procedure Name Priority Date/Time Associated Diagnosis Comments IR NEPHROSTOMY TUBE CHANGE Routine 12/27/2024 12:48 PM EDT PROTHROMBIN TIME-INR Routine 12/27/2024 12:05 PM EDT [...] Recently Relevant to Health Maintenance Results * IR Nephrostomy Tube Change (12/27/2024 12:48 PM EDT) Anatomical Region Laterality Modality Body X-Ray Angiograph y 12/27/2024 12:4 8 PM EDT Narrative 01/08/2025 1:25 PM EDT ? [facility] ?[address] ?[place] [address] ?Interventional Radiology Rpt ? Signed ? Patient: Altaf Alba ?MR#: [id number] ?? 260 ? : 1945 ?Acct:[id number] ? Age/Sex: 79 / F ?ADM Date: 12/27/24 ? Loc: HO.SSS ? Attending Dr: Severo Blair MD ? Ordering Physician: Severo Blair MD ?? Date of Service: 12/27/24 ?? Procedure(s): IR nephrostomy tube change ?? Accession Number(s): [id number] ? cc: Severo Blair MD; Angeline Klein ? EXAMINATION: ?? XR NEPHROSTOMY TUBE CHANGE, RIGHT ? CLINICAL INFORMATION: ?? FLUOROSCOPIC RIGHT SIDED NEPHROSTOMY TUBE EXCHANGE ? History: Patient with right sided nephrostomy tubes due to bladder ?? cancer and ureteral obstruction. Patient presents for three-month ?? maintenance change. ? Procedure: Patient was informed and consented to the procedure. The ?? patient's right back was prepped and draped in routine sterile fashion. ?? 1% buffered lidocaine was used as anesthetic around the insertion site. ?? The catheter was cut and an stiff guidewire was placed through the tube ?? and coiled into the renal pelvis. The old catheter was removed and over ?? the wire. A new 8 Togolese locking pigtail catheter was advanced over the ?? wire. The wire was removed. 5 mL of contrast was injected to ensure ?? proper positioning of the catheter in the renal pelvis. A 3-0 Ethilon ?? suture was used to secure the catheter to the skin. A sterile dressing ?? was applied. ? Total fluoroscopy time was 0.9. ? IR/IR nephrostomy tube change ?? IMPRESSION: Right-sided Nephrostomy tube exchange ? This procedure performed by David Sheehan NP, and supervised by ?? Sesar Casarez MD ? Electronically signed by: ??Sesar Casarez MD ??01/08/2025 01:23 PM EDT RP ? Dictated By: ?David Sheehan NP ? Signed By: ?<Electronically signed by David Sheehan in OV> ?01/08/25 1323 ?<Electronically signed by Sesar Casarez MD in OV> ? 01/08/25 1325 ? DD/ 1248 ? TD/TT: 12/27/24 1503 ? Plastic Frame Inserter: ? Procedure Note Donotuseinterpreter, Image - 01/08/2025 [place] [address] Interventional Radiology Rpt Signed Patient: Altaf AlbaMR#: [id number] 260 : 6Acct:[id number] Age/Sex: 79 / FADM Date: 12/27/24 Loc: [facility] Attending Dr: Severo Blair MD Ordering Physician: Severo Blair MD Date of Service: 12/27/24 Procedure(s): IR nephrostomy tube change Accession Number(s): [id number] cc: Severo Blair MD; Angeline Klein EXAMINATION: XR NEPHROSTOMY TUBE CHANGE, RIGHT CLINICAL INFORMATION: FLUOROSCOPIC RIGHT SIDED NEPHROSTOMY TUBE EXCHANGE History: Patient with right sided nephrostomy tubes due to bladder cancer and ureteral obstruction. Patient presents for three-month maintenance change. Procedure: Patient was informed and consented to the procedure. The patient's right back was prepped and draped in routine sterile fashion. 1% buffered lidocaine was used as anesthetic around the insertion site. The catheter was cut and an stiff guidewire was placed through the tube and coiled into the renal pelvis. The old catheter was removed and over the wire. A new 8 Togolese locking pigtail catheter was advanced over the wire. The wire was removed. 5 mL of contrast was injected to ensure proper positioning of the catheter in the renal pelvis. A 3-0 Ethilon suture was used to secure the catheter to the skin. A sterile dressing was applied. Total fluoroscopy time was 0.9. IR/IR nephrostomy tube change IMPRESSION: Right-sided Nephrostomy tube exchange This procedure performed by David Sheehan NP, and supervised by Dr. Sesar Casarez MD Electronically signed by: Sesar Casarez MD 01/08/2025 01:23 PM EDT RP Dictated By: David Sheehan NP Signed By: <Electronically signed by David Sheehan in OV> 01/08/25 1323 <Electronically signed by Sesar Casarez MD in OV> 01/08/25 1325 DD/ 1248 TD/TT: 12/27/24 1503 Plastic Frame Inserter: [facility] External Provider IMG IR PROCEDURES Edited Result - Final * Prothrombin Time-INR (12/27/2024 12:05 PM EDT) Prothrombin Time 11.9 10.9 - 12.4 SEC [facility] INTERNATIONAL NORM RATIO 1.0 0.9 - 1.1 [facility] Comment:INTERNATIONAL NORMAL IZED RATIO (INR) [...] 5 PM EDT 12/27/2024 12:07 PM EDT Generic External Data Provider LAB BLOOD ORDERAB LES Final Result [facility] [address] [place] [address] [phone] * US RENAL BI (12/23/2024 11:08 AM EDT) Anatomical Region Laterality Modality Abdomen Ultrasound 12/23/2024 11:0 8 AM EDT Narrative 12/23/2024 11:51 AM EDT ? [place] [facility] ?[address] ?[place] [address] ? Ultrasound Report ? Signed ? Patient: Alba,Altaf ?MR#: [id number] ?? 260 ? : 1945 ?Acct:[id number] ? Age/Sex: 79 / F ?ADM Date: 12/23/24 ? Loc: HO.US ? Attending Dr: Destiney Palacios MD ? Ordering Physician: Severo Blair MD ?? Date of Service: 12/23/24 ?? Procedure(s): US renal BI ?? Accession Number(s): [id number] ? cc: Severo Blair MD; Angeline Klein [...] DD/ 1108 ? TD/TT: 12/23/24 1119 ? Plastic Frame Inserter: ? Procedure Note Donotuseinterpreter, Image - 12/23/[address] [address] Ultrasound Report Signed Patient: Altaf AlbaMR#: [id number] 260 : 6Acct:[id number] Age/Sex: 79 / FADM Date: 12/23/24 Loc: HO.US Attending Dr: Destiney Palacios MD Ordering Physician: Severo Blair MD Date of Service: 12/23/24 Procedure(s): US renal BI Accession Number(s): [id number] cc: Severo Blair MD; Angeline Klein EXAMINATION: [...] 12/23/24 1148 DD/ 1108 TD/TT: 12/23/24 1119 Plastic Frame Inserter: [facility] External Provider IMG US PROCEDURES Edited Result - Final * XR Chest 2 Views (11/20/2024 5:14 PM EDT) Anatomical Region Laterality Modality Chest Radiographic Manju ging 11/20/2024 5:14 PM EDT Narrative 11/20/2024 5:15 PM EDT ? [facility] ?[address] ?[place] [address] ?XRay Report ? Signed ? Patient: Alba,Altaf ?MR#: [id number] ?? 260 ? : 1945 ?Acct:[id number] ? Age/Sex: 79 / F ?ADM Date: 11/20/24 ? Loc: HO.CT ? Attending Dr: Destiney Palacios MD ? Ordering Physician: Endy Thakkar MD ?? Date of Service: 11/20/24 ?? Procedure(s): XR chest 2V ?? Accession Number(s): [id number] ? cc: Angeline Klein; Endy Thakkar MD ? CLINICAL HISTORY: J45.50 - Severe persistent asthma, uncomplicated ? 2 view chest x-ray ? Comparison: CR/IL/SR - XR CHEST 2V - 04/09/24 09:11 [...] DD/ 1714 ? TD/TT: 11/20/24 1714 ? Plastic Frame Inserter: ? Procedure Note Charlie Verma - 11/20/[address] [place] [address] XRay Report Signed Patient: Altaf AlbaMR#: [id number] 260 : 6Acct:[id number] Age/Sex: 79 / FADM Date: 11/20/24 Loc: HO.CT Attending Dr: Destiney Palacios MD Ordering Physician: Endy Thakkar MD Date of Service: 11/20/24 Procedure(s): XR chest 2V Accession Number(s): [id number] cc: Angeline Klein; Endy Thakkar MD CLINICAL HISTORY: J45.50 - Severe persistent asthma, uncomplicated 2 view chest x-ray Comparison: CR/IL/SR - XR CHEST 2V - 04/09/24 09:11 [...] in OV> 11/20/241714 DD/ 13 TD/TT: 11/20/241713 Plastic Frame Inserter: [facility] External Provider IMG XR PROCEDURES Final Result * CT Abdomen Pelvis w/ Contrast (11/20/2024 1:06 PM EDT) Anatomical Region Laterality Modality Body, Pelvis, Abdomen Computed T omography 11/20/2024 1:06 PM EDT Narrative 11/20/2024 1:08 PM EDT ? [facility] ?[address] ?[place] [address] ? CT Scan Report ? Signed ? Patient: Alba,Altaf ?MR#: [id number] ?? 260 ? : 1945 ?Acct:[id number] ? Age/Sex: 79 / F ?ADM Date: 11/20/24 ? Loc: HO.CT ? Attending Dr: Destiney Palacios MD ? Ordering Physician: Destiney Palacios MD ?? Date of Service: 11/20/24 ?? Procedure(s): CT abdomen pelvis w IV con ?? Accession Number(s): [id number] ? cc: Destiney Palacios MD; Angeline Klein ? Report Number: ?? [id number]: Total DLP = 1010.00 mGy-cm ? CLINICAL [...] image 15). No hydroureter. ? Normal appendix. Tnzl-lk-dsudvysb colonic stool burden. No bowel ?? obstruction. [...] DD/ 1306 ? TD/TT: 11/20/24 1306 ? Plastic Frame Inserter: ? Procedure Note Bayron, Image - 11/20/[address] [place] [address] [address] Scan Report Signed Patient: Altaf AlbaMR#: [id number] 260 : 6Acct:[id number] Age/Sex: 79 / FADM Date: 11/20/24 Loc: HO.CT Attending Dr: Destiney Palacios MD Ordering Physician: Destiney Palacios MD Date of Service: 11/20/24 Procedure(s): CT abdomen pelvis w IV con Accession Number(s): [id number] cc: Destiney Palacios MD; Angeline Klein Report Number: [id number]: Total DLP = 1010.00 mGy-cm CLINICAL HISTORY: [...] 3, image 15). No hydroureter. Normal appendix. Njfg-aa-pwefxehv colonic stool burden. No bowel obstruction. Mild [...] 11/20/24 1307 DD/ 1306 TD/TT: 11/20/24 1306 Plastic Frame Inserter: us [facility] External Provider IMG CT PROCEDURES Final Result * MR Pelvis w/ and w/o Contrast (10/27/2024 3:14 PM EST) Anatomical Region Laterality Modality Body, Pelvis Magnetic Resonan ce 10/27/2024 3:14 PM EST Narrative 10/27/2024 3:15 PM EST ? [facility] ?[address] ?[place], [place] [address] ? Magnetic Resonance Report ? Signed ? Patient: Alba,Altaf ?MR#: [id number] ?? 260 ? : 1945 ?Acct:[id number] ? Age/Sex: 79 / F ?ADM Date: 10/27/24 ? Loc: HO.MRI ? Attending Dr: Destiney Palacios MD ? Ordering Physician: Destiney Palacios MD ?? Date of Service: 10/27/24 ?? Procedure(s): MR pelvis wo/w con ?? Accession Number(s): [id number] ? cc: Destiney Palacios MD; Angeline Klein [...] MD in OV> ?10/27/24 1515 ? DD/ 13 ? TD/TT: 10/27/241513 ? Plastic Frame Inserter: ? Procedure Note Bayron, Charlie - 10/27/2024 [place] [address] Magnetic Resonance Report Signed Patient: Altaf AlbaMR#: [id number] 260 : 6Acct:[id number] Age/Sex: 79 / FADM Date: 10/27/24 Loc: HO.MRI Attending Dr: Destiney Palacios MD Ordering Physician: Destiney Palacios MD Date of Service: 10/27/24 Procedure(s): MR pelvis wo/w con Accession Number(s): [id number] cc: Destiney Palacios MD; Angeline Klein CLINICAL [...] 10/27/24 1515 DD/ 1514 TD/TT: 10/27/24 1514 Plastic Frame Inserter: [facility] External Provider IM MRI PROCEDURES Edited Result - Final * [...] ?? Timoteo SAMPSON et al. SHARYN. 2013;310(19): 6581-5645 ?? ([email or web address]) Non-HDL Cholesterol 116 <130 mg/dL (calc) [facility] Comment: For patients with diabetes plus 1 major ASCVD risk ?? factor, treating to a non-HDL-C goal of <100 mg/dL ?? (LDL-C of <70 mg/dL) is considered a therapeutic ?? option. Triglycerides 116 <150 mg/dL FOUND [facility] 01/22/2021 9:15 AM EDT Angeline Klein MD LAB BLOOD ORDERABLES Final Res ult Performing Organization Address [facility] de Phone Number [facility] [address] * HEPATITIS A,B,C PROFILE (08/22/2019 1:30 [...] ORDERABLE LABS Final Result Performing Organization Address [facility] de Phone Number [facility] [address] from Last 3 Months or Most Recently Relevant to Health Maintenance Insurance [facility] [employer] (HMO D-SNP) YAMIL BRENNER [id number] Care Teams Restaurant Culinary Manager Relationship Specialty Start Date End Date Angeline Klein MD [address] [place] [phone] PCP - General Family Medicine 08/21/20
--- OUTSIDE RECORDS SUMMARY | 2025-01-14 12:06 | XMS_ITS | Encounter Summary ---
Author Organization [employer] Address 75 [facility] 7t [place] [address] Care Team Providers Care Nursing Consultant Name Role Phone Angeline Klein MD Primary Care Provider [phone] Reason for Visit * Reason Onset Date Comments Med Refill 12/20/2024 Encounter Details Date Type Department Care Team ([facility] st Contact Info) Description 12/20/2024 Telephone [facility] MEDICINE [address] [place] [address] Angeline Klein MD 230 [place] [address] Med Refill Social History Tobacco Use Types [...] the past 12 months, has t he [employer] 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 or 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 company threatened to shut [...] 25 MG tablet To be sent to: [id number] - [place] - [address] [facility] documented in this encounter Plan of Treatment Not on file documented as of this encounter Visit Diagnoses Not on filedocumented in this encounter Additional Health Concerns Assessment Noted Time PHQ-9 Depression Total Score: 4 12/26/19 24 10:32 AM EDT documented as of this encounter Care Teams Nursing Consultant Relationship Specialty Start Date End Date Angeline Klein MD [address] [place] [address] [place] [address] PCP - General Family Medicine 08/21/20 documented as of this encounter
--- OUTSIDE RECORDS SUMMARY | 2025-01-14 12:06 | XMS_ITS | Encounter Summary ---
Author Organization [employer] Address [address] [facility] 7t [place] [address] Care Team Providers Care Blood Bank Booking Clerk Name Role Phone Angeline Klein MD Primary Care Provider [phone] Reason for Visit * Reason Onset Date Comments Referral 04/04/2023 Encounter Details Date Type Department Care Team ([facility] st Contact Info) Description 04/04/2023 Telephone [facility] MEDICINE [address] [place], [place] [phone] Angeline Klein MD 230 [place] [address] Referral Social History Tobacco Use Types Packs/Day [...] 11:18 AM EDT TC placed to pt [phone] in regards to below message however number is OOS. RN called pt's OPHELIA Larson [phone] who was able to confirm the pt DOES want to go to [facility] pain management. RN informed[facility] PCP would place referral today. OPHELIA Larson also provided RN w/ updated number for the pt ([phone]). RN has updated pt's chart. Please place referral to [facility] pain management. * Telephone Encounter - Mary Devon - 04/04/2023 2:43 PM EDT Tc from kelly with [facility] requesting a new referral for pain management. documented in this encounter Plan of Treatment Not on file documented as of this encounter Visit Diagnoses Not on filedocumented in this encounter Care Teams Blood Bank Booking Clerk Relationship Specialty Start Date End Date Angeline Klein MD [address] [place] [address] PCP - General Family Medicine 08/21/20 documented as of this encounter
[2025-01-16] VITALS (18 sets, daily range): BP systolic 129–161; BP diastolic 60–85; PULSE 84–91; RESP 14–16; TEMP 36.1–37.4; O2SAT 96–100; BMI 16.9
--- NOTE | ~2025-01-16 | IR_ITS ---
History: 79-year-old female with bilateral urinary obstruction. The patient has an existing right sided nephrostomy tube that is malfunctioning and has severe hydronephrosis on recent cross-sectional imaging. She presents for placement of a left-sided nephrostomy tube and an evaluation of her right nephrostomy tube. Procedures performed: 1. Ultrasound and fluoroscopic guided placement of a left-sided nephrostomy tube 2. Exchange of a right-sided nephrostomy tube. Physician: Jeff Chavarria MD Anesthesia: IV moderate sedation was administered under my direct supervision with fentanyl and versed for a total of 45 minutes with continuous physiologic monitoring.; 10 cc of 1% lidocaine was administered at the left nephrostomy site; 3 cc of 1% lidocaine was administered at the right nephrostomy site. Specimen: None Drain: Bilateral 8 Lao nephrostomy tubes Estimated blood loss: Minimal Complications: None Procedure in detail: Informed and written consent was obtained and placed in the patient's chart. The patient was positioned prone on the angiography table. Preliminary fluoroscopy showed profound scoliosis. Ultrasound of the left flank showed severe hydronephrosis, but there was a very limited window for percutaneous access because of the patient's severe spinal deformity. There is also rotation of the kidney. Nonetheless, we recognized that we would need to catheterize the renal collecting system somewhat centrally in order to avoid bowel percutaneously. 1% lidocaine was injected subcutaneously under ultrasound guidance. A small incision was made in the skin with a #11 blade. Through the incision and under ultrasound guidance with permanent recordings and direct visualization of needle entry into the collecting system, the lower pole of the left renal collecting system with scattered eyes. An antegrade nephrostogram performed through the needle confirmed severe hydronephrosis and ureteral obstruction. The wire was threaded through the needle and the transitional dilator was used to exchange for an Amplatz wire over which dilatation was performed until an 8 Lao pigtail catheter could be placed. The new nephrostomy tube was secured to the skin with 2-0 nylon suture and connected to gravity drainage. A repeat nephrostogram confirmed good position of the newly placed nephrostomy tube. Next, we evaluated the right side nephrostomy tube. This tube was occluded. We removed it over a wire under fluoroscopic guidance and subsequently placed a new 8 Lao nephrostomy tube. The new tube was placed and showed hydronephrosis, but a good position of the new nephrostomy tube. We anesthetized the skin with 1% lidocaine before suturing it with 2-0 nylon suture. This tube was connected to gravity drainage and an overlying sterile dressing was placed. Summary: 1.) Successful placement under ultrasound and fluoroscopic guidance of a new left nephrostomy tube. 2.) Successful exchange of a malfunctioning right nephrostomy tube. Electronically signed by: Molina Chavarria MD 01/21/2025 01:01 PM EDT RP
--- NOTE | ~2025-01-16 | IR_ITS ---
History: Patient with bladder cancer and bilateral urinary obstruction. She has existing ureteral stents, but persistent hydronephrosis. Procedures performed: 1. Bilateral ultrasound and fluoroscopic guided placement of nephrostomy tubes Physician: Jeff Chavarria MD FSIR Anesthesia: IV moderate sedation with intravenous fentanyl and Versed was administered under my direct supervision for a total of 45 minutes with continuous physiologic monitoring. Specimen: None Drain: Bilateral 8 Albanian nephrostomy tubes Estimated blood loss: Minimal Complications: None Procedure in detail: Informed and written consent was obtained and placed in the chart. The patient was positioned prone. Preliminary ultrasound demonstrated severe bilateral hydronephrosis. The bilateral flanks were prepped and draped. We started on the left. Under ultrasound, 1% lidocaine was injected subcutaneously and extended to the renal capsule. A small incision was made in the skin with a #11 blade. Through the incision and under ultrasound guidance with permanent recordings and direct visualization of needle penetration to the collecting system, an AccuStick needle was advanced into a lower pole calyx. We transitioned for an Amplatz wire over which an 8 Albanian nephrostomy tube was placed. Antegrade nephrostogram revealed severe hydronephrosis and hydroureter. The nephrostomy coils in the renal pelvis. We now directed our attention to the right. Under ultrasound, 1% lidocaine was injected subcutaneously and extended to the renal capsule. A small incision was made in the skin with a #11 blade. Through the incision and under ultrasound guidance with permanent recordings and direct visualization of needle penetration to the collecting system, an AccuStick needle was advanced into a lower pole calyx. We transitioned for an Amplatz wire over which an 8 Albanian nephrostomy tube was placed. Antegrade nephrostogram revealed severe hydronephrosis and hydroureter. The nephrostomy coils in the renal pelvis. Both nephrostomy tubes were secured with a single 2-0 nylon suture and overlying sterile dressing. There were connected to gravity drainage. Summary: Successful bilateral nephrostomy tube placement. FLUOROSCOPY TIME: DOSE AREA PRODUCT: uGy-m2 (microgray-meter squared)
[2025-01-16] MEDS: ceFAZolin Sodium 1 GM VIAL IVPUSH (14:13)
[2025-01-16] MEDS: Midazolam HCl 2 MG/2 ML VIAL 1 MG IVPUSH (14:14)
[2025-01-16] MEDS: fentaNYL citrate/PF 100 MCG/2 ML VIAL 50 MCG IVPUSH (14:14)
== END 2025-01-16 16:15 | disposition home or self-care (01) ==
LOC: HO.SSS 10:44
PROVIDERS: Radiology Vascular & Interventional Radiology; PCP General Practice; Visit Provider Urology
DX: C67.9 Malignant neoplasm of bladder, unspecified (principal); N13.30 Unspecified hydronephrosis; M41.9 Scoliosis, unspecified
CPT/HCPCS: 50432; 50435; 99152; 99153; J0360; J0690; J2003; J2250; J3010; Q9967

== ENCOUNTER → 2025-01-16 12:48 | Outpatient (BNV) | payer OTHER, SELFPAY | PROVIDERS: PCP General Practice; Visit Provider Radiology Vascular & Interventional Radiology | DX: N13.9 Obstructive and reflux uropathy, unspecified (principal); T83.092A Other mechanical complication of nephrostomy catheter, initial encounter; Z48.03 Encounter for change or removal of drains | CPT/HCPCS: 50432 ==

== ENCOUNTER 2025-01-29 09:45 | Outpatient (AMB) | payer OTHER, SELFPAY ==
[2025-01-29 09:47] VITALS: BP 116/59; PULSE 98; O2SAT 98; BMI 18.1
--- NOTE | 2025-01-29 09:47 | A.OFFVIS_ITS ---
Vital Signs 01/29/25 09:47 Height 5 ft 2 in Weight 99 lb 3.328 oz BMI 18.1 BP 116/59 L Blood Pressure Location Lt brachial Position Sitting Pulse 98 Pulse Source Pulse Oximeter Pulse Oximetry (%) 98 Oxygen Delivery Method Room Air Intake Visit Reasons: Follow up Hemorrhoids Intake Note: Pt presents to the office today for a follow up hemorrhoids. Allergies shrimp Allergy (Severe, Verified 01/29/25 09:47) Hives aspirin [ASA] Allergy (Intermediate, Verified 01/29/25 09:47) RASH ibuprofen [Ibuprofen] Allergy (Intermediate, Verified 01/29/25 09:47) RASH morphine [MORPHINE] Allergy (Intermediate, Verified 01/29/25 09:47) ITCHING naproxen [From NAPROSYN] Allergy (Intermediate, Verified 01/29/25 09:47) RASH,N/V oxycodone [OXYCODONE] Allergy (Intermediate, Verified 01/29/25 09:47) NAUSEA & VOMITING, RASH sulfamethoxazole [From Bactrim] Adverse Reaction (Severe, Verified 01/29/25 09:47) Abdominal Pain trimethoprim [From Bactrim] Adverse Reaction (Severe, Verified 01/29/25 09:47) Abdominal Pain HPI HPI Follow up Hemorrhoids: Details: Assessment & Plan (1) Gastroesophageal reflux disease: Code(s): K21.9 - Gastro-esophageal reflux disease without esophagitis Category: Medical (2) Chronic idiopathic constipation: Code(s): K59.04 - Chronic idiopathic constipation Category: Medical Plan Swedish #Paul Live She received the omeprazole and finds it is helping better than the pantoprazole for her heartburn. However, she is now having trouble with right-sided abdominal pain that seems to follow the path of the colon. I ask her how she has doing with the Linzess and moving her bowels and she says ?my primary care provider gave me a liquid in his helping. ? However the liquid is lactulose and after discussion I find out that insurance has been denying her Linzess. She did much better when she was on this and lactulose is prone to causing gas and cramping which is likely the etiology of her pain. We are going to try to get a PA for the Linzess and I educate her in the future she needs to tell me about this so that I can advocate for her. Return office visit in 4 weeks to assess the Linzess. Medications: Refilled linaclotide (Linzess) 145 mcg PO QAM 30 caps 6RF omeprazole 40 mg PO DAILY 30 caps 6RF TODAY'S VISIT Swedish #[id number] She has been really struggling with her health recently, as her bladder ca seems to have spread to her vagina. She will be having some sort of infusion therapy starting this week. I understand this is trying for her and I wish her the best with this for her recovery. She is seeing our Oncology Department and she has good continence that they will help her as best they can. She is having trouble because she ran out of the proctosol cream for her hemor rhoids, and is getting to the end of her LInzess rx. She confirms that it works well for her at the 145mcg dose, but she went a period of time w/o it r/t a refill mistake. She is doing well on her omeprazole. ROV 3 mos [facility] Medical History (Updated 01/29/25 @ 11:06 by STEFFEN Mccormack) Primary osteoarthritis, left shoulder Bronchitis Lumbar degenerative disc disease Osteoarthritis of right shoulder Moderate persistent allergic asthma Vaginal mass Levoscoliosis of lumbar spine Malignant neoplasm of urinary bladder UTI (urinary tract infection) Hemorrhoids with complication Trochanteric bursitis of left hip Tendonitis of left rotator cuff Low back pain due to bilateral sciatica Nausea and vomiting Trochanteric bursitis, right hip Cough Right-sided ischial pain Abdominal cramping Small intestinal bacterial overgrowth Dysuria Recurrent cough Back pain Vaginal pain H/O primary malignant neoplasm of urinary bladder Hematuria Bladder mass Sepsis COVID-19 Candidal urinary tract infection Malignant neoplasm of bladder neck Bladder cancer Hydronephrosis Encounter for preoperative pulmonary examination NADEEN (acute kidney injury) Encounter for preoperative pulmonary examination COPD (chronic obstructive pulmonary disease) Port-A-Cath in place Back pain Spinal stenosis Chronic pain syndrome Osteoarthritis GERD (gastroesophageal reflux disease) Emphysema lung Hyperlipidemia Hypertension Asthma Hemorrhoids with complication Surgical History History of surgery History of ERCP Hx laparoscopic cholecystectomy Hx of cystoscopy History of hysterectomy with bilateral oophorectomy Hx of colonoscopy (01/17/19) History of esophagogastroduodenoscopy (EGD) Family History Father No problems noted. Mother Diabetes Brother Lung cancer Daughter Diabetes Social History Household Members: Spouse Housing: Apartment Are you a primary intensive care anaesthetist to a significant other at home: No Do you presently have visiting nurse or other home services: No Alcohol intake: never Patient Tobacco Use Status: Former Tobacco user Tobacco use type: Cigarette Years Smoked: 56 service: No Current occupational status: retired Current occupation: rt handed Review of Systems Const Denies fatigue, Denies fever(s), Denies night sweats, Denies poor appetite and Denies weight loss Eyes Details: glasses Reports requires corrective lenses ENT Reports Normal hearing present, Denies dental pain, Denies dysphagia, Denies hearing loss, Denies mouth pain, Denies odynophagia, Denies throat swelling, Denies tongue swelling and Reports other (Dentition adequate) Card Reports no additional complaints and Reports dyspnea on exertion Resp Reports dyspnea on exertion GI Details: Denies abdominal pain, Denies melena, Denies bloating, Denies hematochezia, Reports constipation, Denies GI cramping, Denies dysphagia, Denies excessive flatus, Denies early satiety, Reports heartburn, Denies diarrhea, Denies nausea, Denies odynophagia, Denies vomiting and Denies hematemesis Reports other (Vaginal pain/mass) Musc Reports abnormal gait and Reports myalgias Skin/Breast Denies pruritus, Denies lesions, Denies rash and Denies jaundice Neuro Reports Normal hearing present, Denies Abnormal speech present, Reports abnormal gait and Reports paresthesias Endo Denies fatigue Aller/Immun Denies throat swelling and Denies tongue swelling Physical Exam Vital Signs: Last Vital Signs Pulse 98 01/29/25 09:47 BP 116/59 L 01/29/25 09:47 Pulse Ox 98 01/29/25 09:47 Oxygen Delivery Method Room Air 01/29/25 09:47 BMI result Body Mass Index 18.1 Const General: cooperative, no acute distress, well developed and well groomed Nutritional Appearance: well nourished and thin Orientation/consciousness: oriented to person, oriented to place and oriented to time Limitations: language barrier and ambulation with walker HEENT Head: Yes normocephalic and Yes atraumatic Eyes General: appearance normal, both eyes and all related structures Pupils: Equal, round and reactive pupils present Neck Neck: Yes normal visual inspection and Yes no lymphadenopathy Thyroid: Thyroid normal Resp Effort & Inspection: normal respiratory effort and able to speak in complete sentences Auscultation: clear to auscultation bilaterally Cardio Rate: regular rate Rhythm: regular rhythm Heart sounds: Normal, physiologic split S2 sound present Peripheral pulses: radial pulses present and posterior tibial pulses present GI Inspection: No distended and No Abdominal panniculus present Palpation (GI): Soft to palpation, nontender, no guarding, not rigid and No hepatosplenomegaly present Percussion: Yes normal to percussion Auscultation: normal bowel sounds Rectal Exam - Female: deferred Skin General skin exam: no rashes or lesions noted, turgor normal, skin not dry, no jaundice, No spider nevi and no striae Rashes: no rashes Nails: normal Neuro General: oriented to person, oriented to place and oriented to time Cranial nerves: Yes Equal, round and reactive pupils present and Yes Normal hearing present Speech: No Abnormal speech present Extrem General: Yes normal to inspection, No clubbing, No cyanosis and No edema Psych Appearance: grossly normal and well kempt Mental Status: mental status grossly normal Speech and movement: Normal speech and movement present Affect: normal affect Attitude: cooperative Thought process: Normal thought process present and not confabulating Thought content: Normal thought content present Insight: Fair insight present (Psych) Judgement: Fair judgement present (Psych) Assessment & Plan Assessment & Plan (1) Hemorrhoids with complication: Code(s): K64.8 - Other hemorrhoids Category: Medical (2) Chronic idiopathic constipation: Code(s): K59.04 - Chronic idiopathic constipation Category: Medical (3) Gastroesophageal reflux disease: Code(s): K21.9 - Gastro-esophageal reflux disease without esophagitis Category: Medical Plan Swedish #[id number] She has been really struggling with her health recently, as her bladder ca seems to have spread to her vagina. She will be having some sort of infusion therapy starting this week. I understand this is trying for her and I wish her the best with this for her recovery. She is seeing our Oncology Department and she has good continence that they will help her as best they can. She is having trouble because she ran out of the proctosol cream for her hemorrhoids, and is getting to the end of her LInzess rx. She confirms that it works well for her at the 145mcg dose, but she went a period of time w/o it r/t a refill mistake. She is doing well on her omeprazole. ROV 3 mos Medications: New linaclotide (Linzess) Take first thing in the morning with a full glass of water. 145 mcg PO QAM 90 days 90 caps 1RF K58.1 - Irritable bowel syndrome with constipation hydrocortisone 2.5% (Proctosol HC) BE SURE TO INCLUDE RECTAL APPICATOR!! 1 appl MI BID 30 grams 6RF hemorrhoids K64.9 - Unspecified hemorrhoids Changed From omeprazole 40 mg PO DAILY 30 caps 6RF To omeprazole 40 mg PO DAILY 90 days 90 caps 1RF Refilled simethicone (Gas Relief (simethicone)) 80 mg PO BEDTIME 30 tabs 1RF Coding Level of Care Code Est Pt Level 3 (05467) Diagnoses Hemorrhoids with complication K64.8 Chronic idiopathic constipation K59.04 Gastroesophageal reflux disease K21.9
--- OUTSIDE RECORDS SUMMARY | 2025-01-29 11:05 | XMS_ITS | Clinical Summary ---
Author Organization [facility] Facility Address [address] [address] Care Team Providers Care Putty And Caulking Supervisor Name Role Phone Unavailable Primary Care Provider [...]
--- OUTSIDE RECORDS SUMMARY | 2025-01-29 11:05 | XMS_ITS | Data Portability ---
Author Organization [facility] [employer] [place] - [facility] Address [address] [place] [phone] Care Team Providers Care Marketing Sales Supervisor Name Role Phone HIM CCA OTHER [facility] OTHER [phone] Assessment No assessment recorded. Plan of Treatment Reminders Order Date Submit Date Provider Last Modified By Organization Details Last Modified Time Details Appointments None recorded. Lab rapid strep group A, throat 2023 024 jessica [facility], [address] [place] [address], [phone] 12:54:14 Referral None recorded. Procedures None recorded. Surgeries None recorded. Imaging None recorded. Medication Orders nystatin 100,000 unit/mL oral suspension 2023 024 [id number], [address], [place], [phone], 12:54:22 Patient TargetsNo targets recorded. Patient InstructionsNo instructions recorded. Reason for Referral None Reported. Results Created Date Observation Date Name Description Value Unit Range Abnormal Flag Note LastModifiedBy Organization Detail LastModifiedTime 02/12/20 24 02/12/2024 rapid strep group A, throa t Strep negati ve Not Available [address], [phone] 02/12/2024 12:52:54 Result Notes None recorded. Medical [...] Not available Not available Not available 04/10/2024 18722 02 RxNorm COLLEEN IVAN MD [address] [place] [address],[address], [place], [phone], [employer], [employer] 4 09:07:46 5743 naproxen medicatio n Not available Not available Not available 04/10/2024 7258 RxNorm COLLEEN IVAN MD [address] [place] [address],[address], [place], [phone], [employer], [employer] 4 09:08:04 5744 oxycodone medicatio n Not available Not available Not available 04/10/2024 7804 RxNorm COLLEEN IVAN MD [address] [place] [address],[address], [place], [phone], [employer] 4 09:08:18 Medications Name Sig Start Date [...] /min 106 mm[Hg] 66 mm[Hg] Not Available [facility] 4 10:22:14 Date Recorded Oxygen saturation Oxygen saturation in Arterial blood by Pulse oximetry Body temperature Body weight Heart rate Body height Respiratory rate Systolic blood pressure Diastolic blood pressure Provider Name and Address Organization Details Last Updated DateTime 4 98 % 98 % 99.1 [degF] 59678 g 90 /min 152.4 cm 14 /min 120 mm[Hg] 80 mm[Hg] Not Available [facility] 4 09:29:14 Social History None recorded. Functional Status None recorded. Mental Status None recorded. Family History Nothing Reported. Medical History No medical history recorded. Gynecological HistoryNo gynecological history recorded. Obstetrics History GPAL:G 0 P 0 0 0 0 Past Encounters Encounter ID Performer Location Encounter Start Date Encounter Closed Date Diagnosis/Indication Diagnosis SNOMED-CT Code Diagnosis ICD10 Code Diagnosis Note [id number] Dominick Walker MD [facility] [address] [place] [phone] 02/12/2024 10:22:08 02/12/2024 16:37:24 Candidiasis of mouth [id number] B37.0 Sent out for rapid strep and refill of Nystatin. [id number] COLLEEN IVAN MD [facility] - [facility] [address] [place] [phone] 04/10/2024 09:28:55 04/10/2024 11:00:49 Attention to nephrostomy tube [id number] Z43.6 Evaluation in the field was performed by my protein purification scientist colleague, as noted above, I provided real-time direction and supervisio n for this visit. The evaluation revealed a 78-year-ol d female, status post bilateral nephrostom y tube placement on the or 17 of March, with concerns that the dressing has not been changed since. She denies bleeding, drainage, fever, chills, nausea, and vomiting. Per discussion with the patient via a Maori interprete r, she reports that she has a telehealth visit with Urology on April 12. VSS.Per discussion and per photo view, dressing in place, dry, clean with no urine or blood saturation Impression :B/L nephrostom y tube in place Plan:Since the dressing was intact, the protein purification scientist did not feel comfortabl e changing it [...] Recorded Advance Directives Directive None Recorded Payers Insurance Date Sequence Insurance Name Policy Number Policy Brooks Covered Member ID Brooks Member ID Guarantor Name 04/10/2024 1 [facility] - DOS ON OR AFTER 2022 - DUAL ELIGIBLE - SENIOR LIVING OPTIONS AND ONE CARE (MEDICARE REPLACEMENT/ADV ANTAGE - HMO) Altaf Alba [id number] Altaf [facility] Notes Date Note Type Note Provider Name and Address Organization Details Recorded Time 02/12/2024 text/html HPI: PMH: Malignant tumor of urinary bladderCall returned to [facility] to [facility]age [facility]. Reports having Sore throat x 1 day. Per pt having some pain with swallowing. Per pt no swelling, redness, or white patches. Pt denies any fever or cough. No ear pain. Pt denies any drooling. Pt alert, speaking in clear full sentences. Pt seen at [facility] 01/08 for similar sx and given Nystatin for thrush as has hx of this. Pt unable to come into office. Pt agrees to [facility] for eval. ................... ................... ................... ................... ................... ................... ................... ........ CRC Nurse Triage Notes (Marilia Bee): Comments: CRC RN DID NOT NEED FURTHER INFO [facility] [facility] POC Test Results from Yovany Sesay - [facility] Rapid strep test (1) [10:30] Strep: - ................... ................... ................... ................... ................... ................... ................... ........ Co[employer] Drawer Note From Yovany Sesay: Pt reports off [...] exam. No LE edema. Rapid strep negative. [facility] [place] and will send nystatin rx to pharmacy. Pt instructed to f/u with PCP as they requested. Red flags reviewed. ................... ................... ................... ................... ................... ................... ................... ........ Disposition: Fulfilled Dominick Walker MD [address] [place] [address],[address], [place], [phone], [employer] 02/12/2024 12:54:18 04/10/2024 text/html CRC Nurse Triage Notes (Tori Nolasco): Reason For Request: Wound care Chief Complaints: Wound Care PMH: COPD/Asthma, Hypertension, Cancer, Heart Disease Allergies: Aspirin, Ibuprofen, Morphine Other Allergies: dupixent, MS, ASA, naproxen, oxycodone, mult others that she can't recall Comments: Referral taken via Accounting Teacher [id number]. Member calling in to place a referral, [...] ................... ................... ................... ................... ................... ................... ........ Coke Drawer Note From Jelani Geller: Patient conscious alert [...] moisture, discoloration, odor, discharge, or other concern. [facility] [place] encourages patient to follow up with urology, patient has an appointment April 12. Red flags patient education discussed. Patient demonstrates understanding of care and plan. [facility] Drawer Allergies: Aspirin, Ibuprofen, Morphine ................... ................... ................... ................... ................... ................... ................... ........ Disposition: Chantal IVAN MD [address] [facility],[address], [place], [phone], RADHA COELHO 04/10/2024 10:27:47 OBGyn Episode No OBEpisode recorded.
== END 2025-01-29 10:29 | disposition home or self-care (01) ==
LOC: HO.HGI 09:46
PROVIDERS: PCP General Practice; Visit Provider Nurse Practitioner
DX: K64.8 Other hemorrhoids (principal); K59.04 Chronic idiopathic constipation; K21.9 Gastro-esophageal reflux disease without esophagitis
CPT/HCPCS: 99213

== ENCOUNTER → 2025-01-29 09:45 | Outpatient (BNVA) | payer OTHER, SELFPAY | PROVIDERS: PCP General Practice; Visit Provider Nurse Practitioner | DX: K64.8 Other hemorrhoids (principal); K59.04 Chronic idiopathic constipation; K21.9 Gastro-esophageal reflux disease without esophagitis | CPT/HCPCS: 99212 ==

== ENCOUNTER 2025-02-13 11:35 | Outpatient (AMB) | payer OTHER, SELFPAY ==
--- NOTE | 2025-02-13 11:36 | A.OFFVIS_ITS ---
Intake Visit Reasons: Nephrostomy follow up Intake Note: Patient is present for NEPHROSTOMY F/U Urology Medication:NONE Antibiotic Allergy:BACTRIM Blood Thinner:NONE Hose Tester Required: No Allergies shrimp Allergy (Severe, Verified 02/13/25 11:37) Hives aspirin [ASA] Allergy (Intermediate, Verified 02/13/25 11:37) RASH ibuprofen [Ibuprofen] Allergy (Intermediate, Verified 02/13/25 11:37) RASH morphine [MORPHINE] Allergy (Intermediate, Verified 02/13/25 11:37) ITCHING naproxen [From NAPROSYN] Allergy (Intermediate, Verified 02/13/25 11:37) RASH,N/V oxycodone [OXYCODONE] Allergy (Intermediate, Verified 02/13/25 11:37) NAUSEA & VOMITING, RASH sulfamethoxazole [From Bactrim] Adverse Reaction (Severe, Verified 02/13/25 11:37) Abdominal Pain trimethoprim [From Bactrim] Adverse Reaction (Severe, Verified 02/13/25 11:37) Abdominal Pain HPI Comments Details: Altaf is a pleasant female. She is a patient of . She seen for the following urologic conditions - recurrent high-grade bladder cancer invasive Telemedicine Evaluation 15 min Consultation First To File Chalo Video attempted Belgian translation provided by qualified medical claims specialist 03/05 PCN tube change and replacement late February Significant improvement in creatinine Dropped from 2.0-1.4 Three-month follow-up 12/03 PCN Charge Difficulty sleeping Will take out PCN on right side Will change left side 09/03 biopsy - no cancer seen Needs PCN exchange Requesting a different interventional provider from last time - had pain with procedure, not the same as previously 02/01 stent internalization Bladder TURP with fulguration - high-grade T1 Removal of catheter Recommend induction 6 weeks mitomycin-C with cytarabine Stents to remain 01/02 Worsening hydronephrosis Creatinine ratio elevate Bilateral PCN placed followed by stent internalization in operating room Labs Cr 06/[address] right hydro, left mild hydro Completed neoadjuvant chemotherapy Right PCN placed after presentation for NDAEEN - creatinine resolving from 2.9 down to 0.94 - 03/[address] scan with resolution of bladder thickening, right hydronephrosis. 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 The bladder is partially distended with irregular wall thickening and trabeculated appearance. Dilated appearance of both distal ureters. Moderate right hydronephrosis. Mild left hydronephrosis. No lymphadenopathy. Bladder cancer superficial high-grade 2018 - disease progression - 12/01 muscle invasive bladder cancer Initial diagnosis with Dr. Hankins TURBT 05/30 high-grade superficial noninvasive disease Adjuvant therapy BCG June 2019 Surveillance cystoscopy - 04/30 NAD, 10/01 NAD, 10/02 NAD - trabeculated bladder with BCG change [facility] Medical History (Updated 01/29/25 @ 11:23 by Purnima Kelly [facility]) COPD (chronic obstructive pulmonary disease) Port-A-Cath in place Back pain Spinal stenosis Osteoarthritis of right shoulder Bladder cancer Chronic pain syndrome Encounter for preoperative pulmonary examination Levoscoliosis of lumbar spine Lumbar degenerative disc disease NADEEN (acute kidney injury) Encounter for preoperative pulmonary examination Hydronephrosis Osteoarthritis GERD (gastroesophageal reflux disease) Candidal urinary tract infection Malignant neoplasm of bladder neck Vaginal mass COVID-19 Emphysema lung Hyperlipidemia Hypertension Asthma Sepsis Bladder mass Hematuria H/O primary malignant neoplasm of urinary bladder Hemorrhoids with complication Vaginal pain Back pain Recurrent cough Dysuria Primary osteoarthritis, left shoulder Small intestinal bacterial overgrowth Bronchitis Abdominal cramping Hemorrhoids with complication Right-sided ischial pain Cough Moderate persistent allergic asthma Trochanteric bursitis, right hip UTI (urinary tract infection) Malignant neoplasm of urinary bladder Nausea and vomiting Low back pain due to bilateral sciatica Tendonitis of left rotator cuff Trochanteric bursitis of left hip Surgical History History of surgery History of ERCP Hx laparoscopic cholecystectomy Hx of cystoscopy History of hysterectomy with bilateral oophorectomy Hx of colonoscopy (01/17/19) History of esophagogastroduodenoscopy (EGD) Family History Father No problems noted. Mother Diabetes Brother Lung cancer Daughter Diabetes Social History Household Members: Spouse Housing: Apartment Are you a primary wound care coordinator to a significant other at home: No Do you presently have visiting nurse or other home services: No Alcohol intake: never Patient Tobacco Use Status: Former Tobacco user Tobacco use type: Cigarette Years Smoked: 56 service: No Current occupational status: retired Current occupation: rt handed Review of Systems Const All systems reviewed & are unremarkable except as noted in HPI and below Reports no additional complaints Resp Reports no additional complaints GI Reports no additional complaints Reports as per HPI Musc Reports no additional complaints Physical Exam Telemedicine evaluation Appropriate responses Regular breathing rate and rhythm HEENT Head: Yes normal to inspection Ears: hearing grossly normal bilaterally Eyes General: appearance normal, both eyes and all related structures Neck Neck: Yes normal visual inspection Chest Chest palpation & inspection: normal inspection of the chest Resp Effort & Inspection: normal respiratory effort and able to speak in complete sentences Telehealth Telehealth Location of provider rendering services: practice address Location of patient: address on file Patient Identification confirmed using: Name, : Yes Telehealth method: voice only Patient verbally consented to treatment: Yes Patient verbally consented to billing insurance company: Yes Patient informed of any privacy concerns related to visit: Yes Assessment & Plan Assessment & Plan (1) Malignant neoplasm of urinary bladder: Comment: multiple TURBT's Code(s): C67.9 - Malignant neoplasm of bladder, unspecified Category: Medical Qualifiers: Bladder location: unspecified site Qualified Code(s): C67.9 - Malignant neoplasm of bladder, unspecified Plan Bilateral nephrostomy tube change Orders: Orders IR nephrostomy tube change 2 Months C67.9 - Malignant neoplasm of bladder, unspecified Patient Instructions: This note is constructed using voice recognition software. While every effort h as been made to ensure accuracy health record technician errors may have been included. Imaging studies, laboratory and physical exam results were discussed and reviewed in detail. No major barriers to patient understanding were identified. An opportunity to ask questions regarding the treatment plan was provided. All questions were answered. The patient expressed understanding and agreement with the above treatment plan. The patient is aware they should contact our office by phone for worsening of their current condition or the appearance of new urologic symptoms. Compliance is encouraged with any medications and followup testing that is ordered. It is a privilege to participate in the urologic care of your patient. If you have any questions or concerns regarding treatment for the above conditions, or other urologic issues, please do not hesitate to contact me. The office telephone contact is [phone]. Sincerely, Dr Severo Blair MD, ZACKARY [facility] - Urology Compassionate Specialist Care for the Genitourinary System Coding Level of Care Code Tele Est Pt Level 3 (50473) Diagnoses Malignant neoplasm of urinary bladder, unspecified site C67.9 Bladder location: unspecified site
--- OUTSIDE RECORDS SUMMARY | 2025-02-13 13:48 | XMS_ITS | Clinical Summary ---
Author Organization [facility] Facility Address [address] [address] Care Team Providers Care Casing Cooker Name Role Phone Unavailable Primary Care Provider [...]
== END 2025-02-13 12:38 | disposition home or self-care (01) ==
LOC: HO.HUSH 11:35
PROVIDERS: PCP General Practice; Visit Provider Urology
DX: C67.9 Malignant neoplasm of bladder, unspecified (principal)
CPT/HCPCS: 99213

== ENCOUNTER → 2025-02-13 11:35 | Outpatient (BNVA) | payer OTHER, SELFPAY | PROVIDERS: PCP General Practice; Visit Provider Urology ==

== ENCOUNTER 2025-03-25 13:42 | Outpatient (AMB) | payer OTHER, SELFPAY ==
--- NOTE | 2025-03-25 13:43 | A.OFFVIS_ITS ---
Intake Visit Reasons: 6w follow up/PCN tube change Intake Note: Patient is present for telehealth for NEPHROSTOMY F/U Urology Medication:NONE Antibiotic Allergy:BACTRIM Blood Thinner:NONE Family Practice Nurse Practitioner Required: Yes Accompanied by: Self / Same As Patient Allergies shrimp Allergy (Severe, Verified 03/25/25 13:45) Hives aspirin (ASA) Allergy (Intermediate, Verified 03/25/25 13:45) RASH ibuprofen (Ibuprofen) Allergy (Intermediate, Verified 03/25/25 13:45) RASH morphine (MORPHINE) Allergy (Intermediate, Verified 03/25/25 13:45) ITCHING naproxen (From NAPROSYN) Allergy (Intermediate, Verified 03/25/25 13:45) RASH,N/V oxycodone (OXYCODONE) Allergy (Intermediate, Verified 03/25/25 13:45) NAUSEA & VOMITING, RASH sulfamethoxazole (From Bactrim) Adverse Reaction (Severe, Verified 03/25/25 13:45) Abdominal Pain trimethoprim (From Bactrim) Adverse Reaction (Severe, Verified 03/25/25 13:45) Abdominal Pain HPI Comments Details: Altaf is a pleasant female. She is a patient of . She seen for the following urologic conditions - recurrent high-grade bladder cancer invasive Telemedicine Evaluation 15 min Consultation World BX Chalo Video attempted Russian translation provided by qualified manager medical device Follow-up from PCN tube change Planning procedure early next month to review bladder Bladder biopsy Has had episode of hematuria PCN change 03/05 PCN tube change and replacement late February Significant improvement in creatinine Dropped from 2.0-1.4 Three-month follow-up 12/03 PCN Charge Difficulty sleeping Will take out PCN on right side Will change left side 09/03 biopsy - no cancer seen Needs PCN exchange Requesting a different interventional provider from last time - had pain with procedure, not the same as previously 02/01 stent internalization Bladder TURP with fulguration - high-grade T1 Removal of catheter Recommend induction 6 weeks mitomycin-C with cytarabine Stents to remain 01/02 Worsening hydronephrosis Creatinine ratio elevate Bilateral PCN placed followed by stent internalization in operating room Labs Cr 06/[address] 1[address] right hydro, left mild hydro Completed neoadjuvant chemotherapy Right PCN placed after presentation for NADEEN - creatinine resolving from 2.9 down to 0.94 - 03/[address] scan with resolution of bladder thickening, right hydronephrosis. 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 The bladder is partially distended with irregular wall thickening and trabeculated appearance. Dilated appearance of both distal ureters. Moderate right hydronephrosis. Mild left hydronephrosis. No lymphadenopathy. Bladder cancer superficial high-grade 2019 - disease progression - 12/01 muscle invasive bladder cancer Initial diagnosis with Dr. Hankins TURBT 05/30 high-grade superficial noninvasive disease Adjuvant therapy BCG June 2019 Surveillance cystoscopy - 04/30 NAD, 10/01 NAD, 10/02 NAD - trabeculated bladder with BCG change [facility] Medical History (Updated 01/29/25 @ 11:23 by Purnima Kelly [facility]) COPD (chronic obstructive pulmonary disease) Port-A-Cath in place Back pain Spinal stenosis Osteoarthritis of right shoulder Bladder cancer Chronic pain syndrome Encounter for preoperative pulmonary examination Levoscoliosis of lumbar spine Lumbar degenerative disc disease NADEEN (acute kidney injury) Encounter for preoperative pulmonary examination Hydronephrosis Osteoarthritis GERD (gastroesophageal reflux disease) Candidal urinary tract infection Malignant neoplasm of bladder neck Vaginal mass COVID-19 Emphysema lung Hyperlipidemia Hypertension Asthma Sepsis Bladder mass Hematuria H/O primary malignant neoplasm of urinary bladder Hemorrhoids with complication Vaginal pain Back pain Recurrent cough Dysuria Primary osteoarthritis, left shoulder Small intestinal bacterial overgrowth Bronchitis Abdominal cramping Hemorrhoids with complication Right-sided ischial pain Cough Moderate persistent allergic asthma Trochanteric bursitis, right hip UTI (urinary tract infection) Malignant neoplasm of urinary bladder Nausea and vomiting Low back pain due to bilateral sciatica Tendonitis of left rotator cuff Trochanteric bursitis of left hip Surgical History History of surgery History of ERCP Hx laparoscopic cholecystectomy Hx of cystoscopy History of hysterectomy with bilateral oophorectomy Hx of colonoscopy (01/17/19) History of esophagogastroduodenoscopy (EGD) Family History Father No problems noted. Mother Diabetes Brother Lung cancer Daughter Diabetes Social History Household Members: Spouse Housing: Apartment Are you a primary residential care facility manager to a significant other at home: No Do you presently have visiting nurse or other home services: No Alcohol intake: never Patient Tobacco Use Status: Former Tobacco user Tobacco use type: Cigarette Years Smoked: 56 service: No Current occupational status: retired Current occupation: rt handed Review of Systems Const All systems reviewed & are unremarkable except as noted in HPI and below Reports no additional complaints Resp Reports no additional complaints GI Reports no additional complaints Reports as per HPI Musc Reports no additional complaints Physical Exam Telemedicine evaluation Appropriate responses Regular breathing rate and rhythm HEENT Head: Yes normal to inspection Ears: hearing grossly normal bilaterally Eyes General: appearance normal, both eyes and all related structures Neck Neck: Yes normal visual inspection Chest Chest palpation & inspection: normal inspection of the chest Resp Effort & Inspection: normal respiratory effort and able to speak in complete sentences Telehealth Telehealth Telehealth Platform: World BX Location of provider rendering services: practice address Location of patient: address on file Patient Identification confirmed using: Name, : Yes Telehealth method: voice only Patient verbally consented to treatment: Yes Patient verbally consented to billing insurance company: Yes Patient informed of any privacy concerns related to visit: Yes Minutes spent on Phone/Video with Pt.: 15 Assessment & Plan Assessment & Plan (1) Malignant neoplasm of urinary bladder: Comment: multiple TURBT's Code(s): C67.9 - Malignant neoplasm of bladder, unspecified Category: Medical Qualifiers: Bladder location: unspecified site Qualified Code(s): C67.9 - Malignant neoplasm of bladder, unspecified (2) 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 These include but are not limited to infection, bleeding, damage to local organs and tissues, need for further interventions. Anesthetic risks regarding cardiac arrhythmia, blood clots, and potential mortality were discussed. The patient understands the typical recovery time and the outpatient nature of the procedure. After consideration of these risks the patient gives full informed consent and they wish to move ahead with the procedure. Cystoscopy, bladder biopsy, irrigation Patient Instructions: This note is constructed using voice recognition software. While every effort has been made to ensure accuracy space controller errors may have been included. Imaging studies, laboratory and physical exam results were discussed and reviewed in detail. No major barriers to patient understanding were identified. An opportunity to ask questions regarding the treatment plan was provided. All questions were answered. The patient expressed understanding and agreement with the above treatment plan. The patient is aware they should contact our office by phone for worsening of their current condition or the appearance of new urologic symptoms. Compliance is encouraged with any medications and followup testing that is ordered. It is a privilege to participate in the urologic care of your patient. If you have any questions or concerns regarding treatment for the above conditions, or other urologic issues, please do not hesitate to contact me. The office telephone contact is [phone]. Sincerely, Dr Severo Blair MD, ZACKARY [facility] - Urology Compassionate Specialist Care for the Genitourinary System Coding Level of Care Code Tele Est Pt Level 3 (95806) Complex EM visit Add On G2211 Diagnoses Malignant neoplasm of urinary bladder, unspecified site C67.9 Bladder location: unspecified site 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 N13.30; C67.9
--- OUTSIDE RECORDS SUMMARY | 2025-03-25 15:02 | XMS_ITS | Data Portability ---
Author Organization [facility], [facility] Medical [facility] Address [address] [place] [phone] Care Team Providers Care Gasoline Power Shovel Operator Name Role Phone HIM [facility] OTHER [facility] OTHER [phone] Assessment No assessment recorded. Plan of Treatment Reminders Order Date Submit Date Provider Last Modified By Organization Details Last Modified Time Details Appointments None recorded. Lab rapid strep group A, throat 2023 024 jessica [facility], [address] [place] [address], [id number] 12:54:14 Referral None recorded. Procedures None recorded. Surgeries None recorded. Imaging None recorded. Medication Orders nystatin 100,000 unit/mL oral suspension 2023 024 [id number], [address], [place], [id number], 12:54:22 Patient TargetsNo targets recorded. Patient InstructionsNo instructions recorded. Reason for Referral None Reported. Results Created Date Observation Date Name Description Value Unit Range Abnormal Flag Note LastModifiedBy Organization Detail LastModifiedTime 02/12/20 24 02/12/2024 rapid strep group A, throa t Strep negati ve Not Available [address], [phone] 02/12/2024 12:52:54 Result Notes None recorded. Medical [...] Not available Not available Not available 04/10/2024 10006 02 RxNorm COLLEEN IVAN MD [address] [place] [address],[address], [place], [phone], [facility] [employer] [facility], [email or web address] 4 09:07:46 5743 naproxen medicatio n Not available Not available Not available 04/10/2024 7258 RxNorm COLLEEN IVAN MD [address] [place] [address],[address], [place], [phone], [facility], [email or web address] 4 09:08:04 5744 oxycodone medicatio n Not available Not available Not available 04/10/2024 7804 RxNorm COLLEEN IVAN MD [address] [place] [address],[address], [place], [phone], [facility], [email or web address] 4 09:08:18 Medications Name Sig Start Date [...] Pulse oximetry Body temperature Heart rate Systolic And Diastolic Provider Name and Address Organization Details Last Updated DateTime 4 16 /min 95 % 95 % 99.1 [degF] 105 /min 106/66 mm[Hg] Not Available [employer] [facility] [employer] 4 10:22:14 Date Recorded Oxygen saturation Oxygen saturation in Arterial blood by Pulse oximetry Body temperature Body weight Heart rate Body height Respiratory rate Systolic And Diastolic Provider Name and Address Organization Details Last Updated DateTime 4 98 % 98 % 99.1 [degF] 99923 g 90 /min 152.4 cm 14 /min 120/80 mm[Hg] Not Available [employer] [facility] 4 09:29:14 Social History None recorded. Functional Status None recorded. Mental Status None recorded. Family History Nothing Reported. Medical History No medical history recorded. Gynecological HistoryNo gynecological history recorded. Obstetrics History GPAL:G 0 P 0 0 0 0 Past Encounters Encounter ID Performer Location Encounter Start Date Encounter Closed Date Diagnosis/Indication Diagnosis SNOMED-CT Code Diagnosis ICD10 Code Diagnosis Note [id number] Dominick Walker MD [facility] [address] [place] [phone] 02/12/2024 10:22:08 02/12/2024 16:37:24 Candidiasis of mouth 08206871 B37.0 Sent out for rapid strep and refill of Nystatin. [id number] COLLEEN IVAN MD [facility] [address] [place] [phone] 04/10/2024 09:28:55 04/10/2024 11:00:49 Attention to nephrostomy tube [id number] Z43.6 Evaluation in the field was performed by my lens grinder and polisher colleague, as noted above, I provided real-time direction and supervisio n for this visit. The evaluation revealed a 78-year-ol d female, status post bilateral nephrostom y tube placement on the or 17 of March, with concerns that the dressing has not been changed since. She denies bleeding, drainage, fever, chills, nausea, and vomiting. Per discussion with the patient via a [place]ian interprete r, she reports that she has a telehealth visit with Urology on April 12. VSS.Per discussion and per photo view, dressing in place, dry, clean with no urine or blood saturation Impression :B/L nephrostom y tube in place Plan:Since the dressing was intact, the lens grinder and polisher did not feel comfortabl e changing it [...] Brooks Member ID Guarantor Name 04/10/2024 1 [facility] - DOS ON OR AFTER 2022 - DUAL ELIGIBLE - HALFWAY OPTIONS AND ONE CARE (MEDICARE REPLACEMENT/ADV ANTAGE - HMO) Altaf Alba [id number] Altaf Alba Notes Date Note Type Note Provider Name and Address Organization Details Recorded Time 02/12/2024 text/html HPI: PMH: Malignant [facility]. Reports having Sore throat [...] CRC RN DID NOT NEED FURTHER INFO Pot Puncher POC Test Results from Yovany Sesay - [facility] Rapid strep test (1) [10:30] Strep: - ................... ................... ................... ................... ................... ................... ................... ........ Pot Puncher Note From Yovany Sesay: Pt reports off [...] she completes it. Pt sts she called PCP s office this morning and they told [...] exam. No LE edema. Rapid strep negative. [facility] contacted and will send nystatin rx to pharmacy. Pt instructed to f/u with PCP as they requested. Red flags reviewed. ................... ................... ................... ................... ................... ................... ................... ........ Disposition: Fulfilled Dominick Walker MD [address] [place] [address],[address], [place], [phone], ipsy 02/12/2024 12:54:18 04/10/2024 text/html CRC Nurse Triage Notes (Tori Nolasco): Reason For Request: Wound care Chief Complaints: Wound Care PMH: COPD/Asthma, Hypertension, Cancer, Heart Disease Allergies: Aspirin, Ibuprofen, Morphine Other Allergies: dupixent, MS, ASA, naproxen, oxycodone, mult others that she can't recall Comments: Referral taken via Historic Interpreter [id number]. Member calling in to place a referral, [...] ................... ................... ................... ................... ................... ................... ........ Pot Puncher Note From Jelani Geller: Patient conscious alert [...] moisture, discoloration, odor, discharge, or other concern. [facility] agrees encourages patient to follow up with urology, patient has an appointment April 12. Red flags patient education discussed. Patient demonstrates understanding of care and plan. Pot Puncher Allergies: Aspirin, Ibuprofen, Morphine ................... ................... ................... ................... ................... ................... ................... ........ Disposition: Chantal IVAN MD [address] [facility],[address], [place], [phone], [facility] - RADHA RIZVI 04/10/2024 10:27:47 OBGyn Episode No OBEpisode recorded.
--- OUTSIDE RECORDS SUMMARY | 2025-03-25 15:02 | XMS_ITS | Clinical Summary ---
Author Organization [facility] Facility Address [address] [address] Care Team Providers Care Grove Worker Name Role Phone Unavailable Primary Care Provider [...] PCV) 12/14/2022 12/14/2021, 06/19/2014 Influenza Vaccine (#1) 2025 8, 06/20/2017, 06/09/2016, Additional history exists Pneumococcal Vaccine: Peds (0 to 5 Years) and At-Risk Patients (6 to 49 Years) Discontinued 12/14/2021, 06/19/2014 Hepatitis B Vaccine Aged Out No longe r eligible based on patient's age to complete this topic Insurance [facility] Medicare
--- OUTSIDE RECORDS SUMMARY | 2025-03-25 15:02 | XMS_ITS | Encounter Summary ---
Author Organization [facility] Address [address] [place] [address] [address] [place] [address] Care Team Providers Care Corn Cutter Operator Name Role Phone Angeline Klein MD Primary Care Provider [phone] Reason for Visit * Reason Onset Date Comments Appointment Request 05/22/2023 Encounter Details Date Type Department Care Team ([facility] st Contact Info) Description 05/22/2023 Telephone [facility] [address] [place] [address] Angeline Klein MD [address] [place] [address] Appointment Request Social History Tobacco Use Types [...] @ 2:30 pm. Please contact pt at [phone] documented in this encounter Plan of Treatment Not on file documented as of this encounter Visit Diagnoses Not on filedocumented in this encounter Care Teams Corn Cutter Operator Relationship Specialty Start Date End Date Angeline Klein MD [address] [place] [address] PCP - General Family Medicine 08/21/20 documented as of this encounter
== END 2025-03-25 16:10 | disposition home or self-care (01) ==
LOC: HO.HUSH 13:42
PROVIDERS: PCP General Practice; Visit Provider Urology
DX: C67.9 Malignant neoplasm of bladder, unspecified (principal); N13.30 Unspecified hydronephrosis
CPT/HCPCS: 99213; G2211

== ENCOUNTER 2025-03-29 09:35 | Outpatient (REF) | payer OTHER, SELFPAY ==
--- NOTE | ~2025-03-29 | CT_ITS ---
CLINICAL HISTORY: Bladder ca, restaging CT abdomen and pelvis without contrast Comparison: 11/20/2024 09:43 AM EDT: CT Findings: No consolidation or effusion. The patient is status post cholecystectomy. The liver is otherwise unremarkable. There are bilateral nephrostomies. There is moderate dilatation of the right central collecting system, pelvis and ureter. There is no rk caliectasis noted. An enlarged lymph node is seen adjacent to the left renal hilum perhaps slightly enlarged relative to the prior exam but difficult to fully characterize without IV contrast. Retroperitoneal lymph nodes are also noted also difficult to characterize without contrast. A appear grossly similar. The rest of the solid organs are unremarkable. No bowel obstruction, pneumoperitoneum, or pneumatosis. There is colonic diverticulosis without evidence of diverticulitis. The GI tract is otherwise unremarkable. The patient is status post hysterectomy. Evaluation of the urinary bladder is somewhat limited without contrast. It is also more distended with urine on the current study relative to the prior exam. There is generalized irregular wall thickening of the urinary bladder more so at its base where the wall measures up to 2.5 cm in thickness. There is generalized bony demineralization, levoscoliosis and significant degenerative changes of the lumbar spine with a remote compression fracture of L5. IMPRESSION: 1. Somewhat limited exam without IV contrast. There is increased thickening of the lower bladder wall relative to the prior exam and generalized irregular bladder wall thickening is present. Comparing the 2 exams is somewhat difficult without IV contrast and in addition the urinary bladder is more distended on the current study. 2. Enlarged presumably metastatic lymph node adjacent to the left renal pelvis appears grossly unchanged. Retroperitoneal adenopathy is similar. 3. Moderate dilatation of the right central collecting system, pelvis and ureter. 4. Bilateral nephrostomies are again noted. This document has been electronically signed by: Noam Luis MD on 03/29/2025 10:54:05
--- OUTSIDE RECORDS SUMMARY | 2025-03-29 09:37 | XMS_ITS | Clinical Summary ---
Author Organization [facility] Address [address] [place] [phone] Phone Care Team Providers Care Grocery Buyer Name Role Phone Unavailable Primary Care Provider Unavailabl e Social History Tobacco Use Types Packs/Day Years Used Date Smoking Tobacco: Never Assessed Education Answer Date Recorded Are you interested in more education? Not on marla e 01/07/2023 Are you concerned about learning? Not on file 01/07/2023 No 01/07/2023 No 01/07/2023 Digital Access Answer Date Recorded No 02/07/2023 No 02/07/2023 Reliable internet access at home? Not on file 02/07/2023 Device with a working camera? Not on file Comments Unknown Sex and Gender Information Value Date Recorded Sex Assigned at Not on file Legal Sex Female 1:31 PM EST Gender Identity Not on file Sexual Orientation Not on file Plan of Treatment Not on file Medical Devices Not on file Additional Source Comments The information contained in this document represents components of the legal health record. It is not the complete legal health record.[facility]
--- OUTSIDE RECORDS SUMMARY | 2025-03-29 09:37 | XMS_ITS | Data Portability ---
Author Organization [facility] [employer] [facility], [facility] Address [address] [place] [phone] Care Team Providers Care Electric Motor Repair Supervisor Name Role Phone HIM [facility] OTHER [facility] OTHER Assessment No assessment recorded. Plan of Treatment Reminders Order Date Submit Date Provider Last Modified By Organization Details Last Modified Time Details Appointments None recorded. Lab rapid strep group A, throat 2023 024 jessica [facility], [address] [place] [address], [phone] 12:54:14 Referral None recorded. Procedures None recorded. Surgeries None recorded. Imaging None recorded. Medication Orders nystatin 100,000 unit/mL oral suspension 2023 024 [id number], [address], [place], [id number], 12:54:22 Patient TargetsNo targets recorded. Patient InstructionsNo instructions recorded. Reason for Referral None Reported. Results Created Date Observation Date Name Description Value Unit Range Abnormal Flag Note LastModifiedBy Organization Detail LastModifiedTime 02/12/20 24 02/12/2024 rapid strep group A, throa t Strep negati ve Not Available [address], [phone] 02/12/2024 12:52:54 Result Notes None recorded. Medical [...] Not available Not available Not available 04/10/2024 [address] 02 RxNorm COLLEEN IVAN MD [address] [place] [address],[address], [place], [phone], [employer] [facility], [employer] 4 09:07:46 5743 naproxen medicatio n Not available Not available Not available 04/10/2024 7258 RxNorm COLLEEN IVAN MD [address] [place] [address],[address], [place], [phone], [employer], [employer] 4 09:08:04 5744 oxycodone medicatio n Not available Not available Not available 04/10/2024 7804 RxNorm COLLEEN IVAN MD [address] [place] [address],[address], [place], [phone], [employer], [employer] 4 09:08:18 Medications Name Sig Start Date [...] [degF] 105 /min 106/66 mm[Hg] Not Available [employer] [facility] [employer] 4 10:22:14 Date Recorded Oxygen saturation Oxygen saturation in Arterial blood by Pulse oximetry Body temperature Body weight Heart rate Body height Respiratory rate Systolic And Diastolic Provider Name and Address Organization Details Last Updated DateTime 4 98 % 98 % 99.1 [degF] 87068 g 90 /min 152.4 cm 14 /min 120/80 mm[Hg] Not Available [employer] [facility] [employer] 4 09:29:14 Social History None recorded. Functional Status None recorded. Mental Status None recorded. Family History Nothing Reported. Medical History No medical history recorded. Gynecological HistoryNo gynecological history recorded. Obstetrics History GPAL:G 0 P 0 0 0 0 Past Encounters Encounter ID Performer Location Encounter Start Date Encounter Closed Date Diagnosis/Indication Diagnosis SNOMED-CT Code Diagnosis ICD10 Code Diagnosis Note [id number] Dominick Walker MD [facility] [address] [place] [phone] 02/12/2024 10:22:08 02/12/2024 16:37:24 Candidiasis of mouth 61239106 B37.0 Sent out for rapid strep and refill of Nystatin. [id number] COLLEEN IVAN MD [facility] [address] [place] [phone] 04/10/2024 09:28:55 04/10/2024 11:00:49 Attention to nephrostomy tube 454348138 Z43.6 Evaluation in the field was performed by my senior software tester colleague, as noted above, I provided real-time direction and supervisio n for this visit. The evaluation revealed a 78-year-ol d female, status post bilateral nephrostom y tube placement on the or 17 of March, with concerns that the dressing has not been changed since. She denies bleeding, drainage, fever, chills, nausea, and vomiting. Per discussion with the patient via a Norwegian interprete r, she reports that she has a telehealth visit with Urology on April 12. VSS.Per discussion and per photo view, dressing in place, dry, clean with no urine or blood saturation Impression :B/L nephrostom y tube in place Plan:Since the dressing was intact, the senior software tester did not feel comfortabl e changing it [...] ID Guarantor Name 04/10/2024 1 [facility] - DOS ON OR AFTER 2022 - DUAL ELIGIBLE - CUSTODIAL OPTIONS AND ONE CARE (MEDICARE REPLACEMENT/ADV ANTAGE - HMO) Altaf Alba [id number] Altaf Alba Notes Date Note Type Note Provider Name and Address Organization Details Recorded Time 02/12/2024 text/html HPI: PMH: Malignant tumor [facility] urinary [facility] Reports having Sore throat x 1 day. Per pt having some pain with swallowing. Per pt no swelling, redness, or white patches. Pt denies any fever or cough. No ear pain. Pt denies any drooling. Pt alert, speaking in clear full sentences. Pt seen at [facility] 01/08 for similar sx and given Nystatin for thrush as has hx of this. Pt unable to come into office. Pt agrees to [facility] for eval. ................... ................... ................... ................... ................... ................... ................... ........ CRC Nurse Triage Notes (Marilia Bee): Comments: CRC RN DID NOT NEED FURTHER INFO Replanter POC Test Results from Yovany Sesay - [facility] Rapid strep test (1) [10:30] Strep: - ................... ................... ................... ................... ................... ................... ................... ........ Replanter Note From Yovany Seasy: Pt reports off and on thrush in [...] exam. No LE edema. Rapid strep negative. [facility] contacted and will send nystatin rx to pharmacy. Pt instructed to f/u with PCP as they requested. Red flags reviewed. ................... ................... ................... ................... ................... ................... ................... ........ Disposition: Fulfilled Dominick Walker MD [address] [place] [address],[address], [place], [phone], [employer] 02/12/2024 12:54:18 04/10/2024 text/html CRC Nurse Triage Notes (Tori Nolasco): Reason For Request: Wound care Chief Complaints: Wound Care PMH: COPD/Asthma, Hypertension, Cancer, Heart Disease Allergies: Aspirin, Ibuprofen, Morphine Other Allergies: dupixent, MS, ASA, naproxen, oxycodone, mult others that she can't recall Comments: Referral taken via Story Editor [id number]. Member calling in to place a referral, [...] ................... ................... ................... ................... ................... ................... ........ Replanter Note From Jelani Geller: Patient conscious alert [...] moisture, discoloration, odor, discharge, or other concern. [facility] agrees encourages patient to follow up with urology, patient has an appointment April 12. Red flags patient education discussed. Patient demonstrates understanding of care and plan. Replanter Allergies: Aspirin, Ibuprofen, Morphine ................... ................... ................... ................... ................... ................... ................... ........ Disposition: Chantal IVAN MD [address], [place], [phone], [facility] - RADHA RIZVI 04/10/2024 10:27:47 OBGyn Episode No OBEpisode recorded.
--- OUTSIDE RECORDS SUMMARY | 2025-03-29 09:37 | XMS_ITS | Clinical Summary ---
Author Organization [facility] Facility Address [address] [address] Care Team Providers Care Trailer Driver Name Role Phone Unavailable Primary Care Provider [...]
== END 2025-03-29 09:36 | disposition home or self-care (01) ==
LOC: HO.CT 09:35
PROVIDERS: PCP General Practice; Visit Provider Internal Medicine
DX: C67.9 Malignant neoplasm of bladder, unspecified (principal)
CPT/HCPCS: 74176

== ENCOUNTER → 2025-03-29 09:37 | Outpatient (BNV) | payer OTHER, SELFPAY | PROVIDERS: PCP General Practice; Visit Provider Radiology Diagnostic Radiology | DX: C67.9 Malignant neoplasm of bladder, unspecified (principal) | CPT/HCPCS: 74176 ==

== ENCOUNTER 2025-03-31 15:01 | Outpatient (REF) | payer OTHER, SELFPAY ==
--- NOTE | ~2025-03-31 | MR_ITS ---
EXAMINATION: MR PELVIS WITHOUT THEN WITH IV CONTRAST HISTORY: Bladder cancer, new vaginal bleeding,? Fistula. TECHNIQUE: Axial T1, fat-suppressed T1, and fat suppressed T2, and sagittal and coronal T2-weighted MR images of the pelvis were obtained. Subsequently, sagittal and axial fat-suppressed T1-weighted images were obtained after the intravenous administration of 4.5 mL Gadavist. COMPARISON: Correlation is made with an unenhanced CT of the pelvis dated 03/29/2025. FINDINGS: There is marked irregular wall thickening of the apex of the bladder with additional soft tissue extending along the course of the urethra. No fat plane is seen between this abnormal soft tissue in the anterior wall of the vagina. Gas is seen in the vagina. While a direct communication between the urinary bladder and the vagina is not identified, a fistula is not excluded. There is a fluid/fluid level in the urinary bladder. The patient is status post hysterectomy. There are enlarged lymph nodes in the retroperitoneum at the level of the renal emerson as noted on CT. There is no ascites in the pelvis. There is moderate levoscoliosis and degenerative disc disease of the spine. MR/MR pelvis wo/w con IMPRESSION: Marked irregular wall thickening of the apex of the urinary bladder extending along the urethra and involving the posterior wall of the vagina, consistent with the patient's known history of bladder cancer. A fistula between the urinary bladder and vagina cannot be excluded on the basis of this examination. Electronically signed by: Bennett Alejandro MD 04/01/2025 07:20 AM EDT
--- OUTSIDE RECORDS SUMMARY | 2025-03-31 15:44 | XMS_ITS | Clinical Summary ---
Author Organization [facility] Address [address] [address] Care Team Providers Care Injection Molder Name Role Phone Unavailable Primary Care Provider [...]
--- OUTSIDE RECORDS SUMMARY | 2025-03-31 15:44 | XMS_ITS | Encounter Summary ---
Author Organization [facility] Address [address] [place] [address] Care Team Providers Care Director Of Patient Care Name Role Phone Angeline Klein MD Primary Care Provider [phone] Encounter Details Date Type Department Care Team (Late st Contact Info) Description 03/29/2025 Orders Only [facility] External Provider, [facility] Social History Tobacco Use Types [...] Procedure Name Priority Date/Time Associated Diagnosis Comments CT ABDOMEN PELVIS WO CONTRAST Routine 03/29/2025 10:54 AM EDT documented in this encounter Results * CT Abdomen Pelvis w/o Contrast (03/29/2025 10:54 AM EDT) Anatomical Region Laterality Modality Body, Pelvis, Abdomen Computed T omography 03/29/2025 10:5 4 AM EDT Narrative 03/29/2025 10:56 AM EDT [address] [address] [address] Scan Report Signed Patient: Altaf Alba MR#: [id number] 260 : 1945 Acct:[id number] Age/Sex: 79 / F ADM Date: 03/29/25 Loc: HO.CT Attending Dr: Destiney Palacios MD Ordering Physician: Kate Her NP Date of Service: 03/29/25 Procedure(s): CT abdomen pelvis wo IV con Accession Number(s): [id number] cc: Destiney Palacios MD; Angeline Klein; Kate Her NP Report Number: [id number]: Total DLP = 256.00 mGy-cm CLINICAL HISTORY: Bladder ca, restaging CT abdomen and pelvis without contrast Comparison: 11/20/2024 09:43 AM EDT: CT Findings: No consolidation or effusion. The patient is status post cholecystectomy. The liver is otherwise unremarkable. There are bilateral nephrostomies. There is moderate dilatation of the right central collecting system, pelvis and ureter. There is no rk caliectasis noted. An enlarged lymph node is seen adjacent to the left renal hilum perhaps slightly enlarged relative to the prior exam but difficult to fully characterize without IV contrast. Retroperitoneal lymph nodes are also noted also difficult to characterize without contrast. A appear grossly similar. The rest of the solid organs are unremarkable. No bowel obstruction, pneumoperitoneum, or pneumatosis. There is colonic diverticulosis without evidence of diverticulitis. The GI tract is otherwise unremarkable. The patient is status post hysterectomy. Evaluation of the urinary bladder is somewhat limited without contrast. It is also more distended with urine on the current study relative to the prior exam. There is generalized irregular wall thickening of the urinary bladder more so at its base where the wall measures up to 2.5 cm in thickness. There is generalized bony demineralization, levoscoliosis and significant degenerative changes of the lumbar spine with a remote compression fracture of L5. IMPRESSION: 1. Somewhat limited exam without IV contrast. There is increased thickening of the lower bladder wall relative to the prior exam and generalized irregular bladder wall thickening is present. Comparing the 2 exams is somewhat difficult without IV contrast and in addition the urinary bladder is more distended on the current study. 2. Enlarged presumably metastatic lymph node adjacent to the left renal pelvis appears grossly unchanged. Retroperitoneal adenopathy is similar. 3. Moderate dilatation of the right central collecting system, pelvis and ureter. 4. Bilateral nephrostomies are again noted. This document has been electronically signed by: Noam Luis MD on 03/29/2025 10:54:05 Dictated By: Noam Luis MD Signed By: <Electronically signed by Noam Luis MD in OV> 03/29/25 1055 DD/ 1054 TD/TT: 03/29/25 1054 Leather Goods Assembler: Procedure Note Donotuseinterpreter, Image - 03/29/[address] [place] [address] [address] Scan Report Signed Patient: Altaf AlbaMR#: [id number] : 1945cct:[id number] Age/Sex: 79 / FADM Date: 03/29/25 Loc: HO.CT Attending Dr: Destiney Palacios MD Ordering Physician: Kate Her NP Date of Service: 03/29/25 Procedure(s): CT abdomen pelvis wo IV con Accession Number(s): [id number] cc: Destiney Palacios MD; Angeline Klein; Kate Her NP Report Number: [id number]: Total DLP = 256.00 mGy-cm CLINICAL HISTORY: Bladder ca, restaging CT abdomen and pelvis without contrast Comparison: 11/20/2024 09:43 AM EDT: CT Findings: No consolidation or effusion. The patient is status post cholecystectomy. The liver is otherwise unremarkable. There are bilateral nephrostomies. There is moderate dilatation of the right central collecting system, pelvis and ureter. There is no rk caliectasis noted. An enlarged lymph node is seen adjacent to the left renal hilum perhaps slightly enlarged relative to the prior exam but difficult to fully characterize without IV contrast. Retroperitoneal lymph nodes are also noted also difficult to characterize without contrast. A appear grossly similar. The rest of the solid organs are unremarkable. No bowel obstruction, pneumoperitoneum, or pneumatosis. There is colonic diverticulosis without evidence of diverticulitis. The GI tract is otherwise unremarkable. The patient is status post hysterectomy. Evaluation of the urinary bladder is somewhat limited without contrast. It is also more distended with urine on the current study relative to the prior exam. There is generalized irregular wall thickening of the urinary bladder more so at its base where the wall measures up to 2.5 cm in thickness. There is generalized bony demineralization, levoscoliosis and significant degenerative changes of the lumbar spine with a remote compression fracture of L5. IMPRESSION: 1. Somewhat limited exam without IV contrast. There is increased thickening of the lower bladder wall relative to the prior exam and generalized irregular bladder wall thickening is present. Comparing the 2 exams is somewhat difficult without IV contrast and in addition the urinary bladder is more distended on the current study. 2. Enlarged presumably metastatic lymph node adjacent to the left renal pelvis appears grossly unchanged. Retroperitoneal adenopathy is similar. 3. Moderate dilatation of the right central collecting system, pelvis and ureter. 4. Bilateral nephrostomies are again noted. This document has been electronically signed by: Noam Luis MD on 03/29/2025 10:54:05 Dictated By: Noam Luis MD Signed By: <Electronically signed by Noam Luis MD in [place]> 03/29/25 1055 DD/ 1054 TD/TT: 03/29/25 1054 Leather Goods Assembler: [facility] External Provider IMG CT PROCEDURES Edited Result - Final documented in this encounter Visit Diagnoses Not on filedocumented in this encounter Additional Health Concerns Assessment Noted Time PHQ-9 Depression Total Score: 4 12/26/19 24 10:32 AM EDT documented as of this encounter Care Teams Director Of Patient Care Relationship Specialty Start Date End Date Angeline Klein MD [address] [place] [address] PCP - General Family Medicine 08/21/20 documented as of this encounter
--- OUTSIDE RECORDS SUMMARY | 2025-03-31 15:45 | XMS_ITS | Data Portability ---
Author Organization [facility], [facility] Medical [facility] Address [address] [place] [phone] Care Team Providers Care Watch Repairer Apprentice Name Role Phone HIM [facility] OTHER [facility] OTHER [phone] Assessment No assessment recorded. Plan of Treatment Reminders Order Date Submit Date Provider Last Modified By Organization Details Last Modified Time Details Appointments None recorded. Lab rapid strep group A, throat 2023 024 jessica [facility], [address] [place] [address], [phone] 12:54:14 Referral None recorded. Procedures None recorded. Surgeries None recorded. Imaging None recorded. Medication Orders nystatin 100,000 unit/mL oral suspension 2023 024 [id number], [address], [place], [phone], 12:54:22 Patient TargetsNo targets recorded. Patient InstructionsNo instructions recorded. Reason for Referral None Reported. Results Created Date Observation Date Name Description Value Unit Range Abnormal Flag Note LastModifiedBy Organization Detail LastModifiedTime 02/12/20 24 02/12/2024 rapid strep group A, throa t Strep negati ve Not Available [address], [phone] 02/12/2024 12:52:54 Result Notes None recorded. Medical [...] Not available Not available Not available 04/10/2024 02255 02 RxNorm COLLEEN IVAN MD [address] [place] [address],[address], [place], [phone], [employer], [employer] 4 09:07:46 5743 naproxen medicatio n Not available Not available Not available 04/10/2024 7258 RxNorm COLLEEN IVAN MD [address] [place] [address],[address], [place], [phone], MRI Interventions - [employer], [employer] 4 09:08:04 5744 oxycodone medicatio n Not available Not available Not available 04/10/2024 7804 RxNorm COLLEEN IVAN MD [address] [place] [address],[address], [place], [phone], [employer], [employer] 4 09:08:18 Medications Name Sig Start Date [...] [degF] 105 /min 106/66 mm[Hg] Not Available [employer] - [employer] 4 10:22:14 Date Recorded Oxygen saturation Oxygen saturation in Arterial blood by Pulse oximetry Body temperature Body weight Heart rate Body height Respiratory rate Systolic And Diastolic Provider Name and Address Organization Details Last Updated DateTime 4 98 % 98 % 99.1 [degF] 19724 g 90 /min 152.4 cm 14 /min 120/80 mm[Hg] Not Available [employer] 4 09:29:14 Social History None recorded. Functional Status None recorded. Mental Status None recorded. Family History Nothing Reported. Medical History No medical history recorded. Gynecological HistoryNo gynecological history recorded. Obstetrics History GPAL:G 0 P 0 0 0 0 Past Encounters Encounter ID Performer Location Encounter Start Date Encounter Closed Date Diagnosis/Indication Diagnosis SNOMED-CT Code Diagnosis ICD10 Code Diagnosis Note [id number] Dominick Walker MD [facility] [address] [place] [phone] 02/12/2024 10:22:08 02/12/2024 16:37:24 Candidiasis of mouth 58388530 B37.0 Sent out for rapid strep and refill of Nystatin. [id number] COLLEEN IVAN MD [facility] [address] [place] [phone] 04/10/2024 09:28:55 04/10/2024 11:00:49 Attention to nephrostomy tube 271501994 Z43.6 Evaluation in the field was performed by my aquatics group fitness instructor colleague, as noted above, I provided real-time direction and supervisio n for this visit. The evaluation revealed a 78-year-ol d female, status post bilateral nephrostom y tube placement on the or 17 of March, with concerns that the dressing has not been changed since. She denies bleeding, drainage, fever, chills, nausea, and vomiting. Per discussion with the patient via a Afghan interprete r, she reports that she has a telehealth visit with Urology on April 12. VSS.Per discussion and per photo view, dressing in place, dry, clean with no urine or blood saturation Impression :B/L nephrostom y tube in place Plan:Since the dressing was intact, the aquatics group fitness instructor did not feel comfortabl e changing it [...] Brooks Member ID Guarantor Name 04/10/2024 1 [facility] - DOS ON OR AFTER 2022 - DUAL ELIGIBLE - INTERMEDIATE OPTIONS AND ONE CARE (MEDICARE REPLACEMENT/ADV ANTAGE - HMO) Altaf Alba [id number] Altaf Alba Notes Date Note Type Note Provider Name and Address Organization Details Recorded Time 02/12/2024 text/html HPI: PMH: Malignant tumor of urinary bladderCall [facility]. Reports having Sore [...] CRC RN DID NOT NEED FURTHER INFO Meat Market Manager POC Test Results from Yoavny Sesay - [facility] Rapid strep test (1) [10:30] Strep: - ................... ................... ................... ................... ................... ................... ................... ........ Meat Market Manager Note From Yovany Sesay: Pt reports off [...] exam. No LE edema. Rapid strep negative. [facility] contacted and will send nystatin rx to pharmacy. Pt instructed to f/u with PCP as they requested. Red flags reviewed. ................... ................... ................... ................... ................... ................... ................... ........ Disposition: Fulfilled Dominick Walker MD [address] [place] [address],[address], [place], [phone], [employer] 02/12/2024 12:54:18 04/10/2024 text/html CRC Nurse Triage Notes (Tori Nolasco): Reason For Request: Wound care Chief Complaints: Wound Care PMH: COPD/Asthma, Hypertension, Cancer, Heart Disease Allergies: Aspirin, Ibuprofen, Morphine Other Allergies: dupixent, MS, ASA, naproxen, oxycodone, mult others that she can't recall Comments: Referral taken via [employer] [id number]. Member calling in to place a referral, [...] ................... ................... ................... ................... ................... ................... ........ Meat Market Manager Note From Jelani Geller: Patient conscious alert [...] moisture, discoloration, odor, discharge, or other concern. [facility] agrees encourages patient to follow up with urology, patient has an appointment April 12. Red flags patient education discussed. Patient demonstrates understanding of care and plan. Meat Market Manager Allergies: Aspirin, Ibuprofen, Morphine ................... ................... ................... ................... ................... ................... ................... ........ Disposition: Chantal IVAN MD [address] [facility],[address], [place], [phone], [facility] - RADHA RIZVI 04/10/2024 10:27:47 OBGyn Episode No OBEpisode recorded.
--- OUTSIDE RECORDS SUMMARY | 2025-03-31 15:45 | XMS_ITS | Clinical Summary ---
Author Organization [facility] Address [address] [place] [phone] Phone Care Team Providers Care Residential Property Consultant Name Role Phone Unavailable Primary Care Provider [...] It is not the complete legal health record.[facility]
== END 2025-03-31 15:02 | disposition home or self-care (01) ==
LOC: HO.MRI 15:01
PROVIDERS: PCP General Practice; Visit Provider Internal Medicine
DX: C67.9 Malignant neoplasm of bladder, unspecified (principal); N93.9 Abnormal uterine and vaginal bleeding, unspecified
CPT/HCPCS: 72197; A9585

== ENCOUNTER → 2025-03-31 15:13 | Outpatient (BNV) | payer OTHER, SELFPAY | PROVIDERS: PCP General Practice; Visit Provider Radiology Diagnostic Radiology | DX: C67.9 Malignant neoplasm of bladder, unspecified (principal) | CPT/HCPCS: 72197 ==

== ENCOUNTER 2025-04-07 12:48 | Day surgery (SDC) | payer OTHER, SELFPAY ==
[2025-04-03 14:18] VITALS: BMI 16.9
[2025-04-07] MEDS: Lactated Ringers 1,000 ML 100 ML IVCONT (13:22)
[2025-04-07 13:35] VITALS: BP 114/71; PULSE 99; RESP 14; TEMP 37.2; O2SAT 97; BMI 16.6
--- NOTE | 2025-04-07 16:03 | MHC.SHP ---
Pre-Procedural Eval Section A - 24 Hr Update-Section A only Date of Service: 04/07/25 The patient is an INPATIENT: No Changes since office visit: No Cold of Flu in the past 2 weeks, No New Medical Problems, No Changes in Medication and No Patient answered all questions The patient has been examined within 24 hours of the surgical procedure. The History & Physical has been completed within 30 days and I have reviewed it.: Yes Section B - Complete if H&P > 30 days Chief Complaint: Malignant neoplasm of bladder, unspecified Allergies: Allergies Allergy/AdvReac Type Severity Reaction Status Date / Time shrimp Allergy Severe Hives Verified 04/07/25 13:10 aspirin (ASA) Allergy Intermediate RASH Verified 04/07/25 13:10 ibuprofen (Ibuprofen) Allergy Intermediate RASH Verified 04/07/25 13:10 morphine (MORPHINE) Allergy Intermediate ITCHING Verified 04/07/25 13:10 naproxen (From NAPROSYN) Allergy Intermediate RASH,N/V Verified 04/07/25 13:10 oxycodone (OXYCODONE) Allergy Intermediate NAUSEA & Verified 04/07/25 13:10 VOMITING, RASH sulfamethoxazole (From AdvReac Severe Abdominal Verified 04/07/25 13:10 Bactrim) Pain trimethoprim (From Bactrim) AdvReac Severe Abdominal Verified 04/07/25 13:10 Pain Plan Diagnosis/Plan: Unchanged (cystoscopy with possible bladder biopsy) I have reviewed the history and physical and performed a pertinent physical examination on my patient. No changes have occurred unless specified. Time Spent With Patient Time: Total time managing care of this patient today ____ minutes.
[2025-04-07 17:16] VITALS: BP 87/53; PULSE 82; RESP 16; TEMP 36.6; O2SAT 98
[2025-04-07 17:20] VITALS: BP 97/51; PULSE 76; RESP 16; O2SAT 97
[2025-04-07 17:25] VITALS: BP 109/55; PULSE 76; RESP 16; O2SAT 97
[2025-04-07 17:30] VITALS: BP 125/47; PULSE 77; RESP 16; O2SAT 97
[2025-04-07 17:45] VITALS: BP 123/68; PULSE 69; RESP 20; TEMP 37.2; O2SAT 97
--- NOTE | 2025-05-28 17:44 | W.PM.OPN ---
Operative Note Operative Note Date of Service: 04/07/25 Narrative: PreOperative Diagnosis: bladder cancer Post Operative Diagnosis: bladder cancer Procedure: cystoscopy, bladder biopsy, fulguration Surgeon: Dr Severo Blair Anesthesia: LMA Indications for procedure: Superficial bladder cancer. Here for cystoscopy, bladder biopsy. Evaluation. Procedure: After informed consent was verified the patient was brought to the operating room and placed in a supine position. Anesthesia was administered per protocol. The patient was placed in modified dorsal lithotomy position and prepped and draped in a sterile fashion. Safety pause time-out was performed. Antibiotics being given. Cystoscopy was performed. Difficult to enter bladder. Has diversion of urine. Area of invasion clearly seen on posterior wall of bladder. Area of redness on dome of bladder. Biopsied and fulgurated. Prior area of resection still healing around bladder neck The patient tolerated the procedure well. They were extubated in operating room and transferred in stable conditions recovery area. Pathology: Bladder biopsies Drains: None
== END 2025-04-07 18:04 | disposition home or self-care (01) ==
PROVIDERS: PCP General Practice; Visit Provider Urology
PROC: (CPT 52204; principal; 2025-04-07 15:10)
DX: C67.9 Malignant neoplasm of bladder, unspecified (principal); Z92.21 Personal history of antineoplastic chemotherapy; Z95.828 Presence of other vascular implants and grafts; N13.30 Unspecified hydronephrosis; G89.4 Chronic pain syndrome; I10 Essential (primary) hypertension; E78.5 Hyperlipidemia, unspecified; J44.9 Chronic obstructive pulmonary disease, unspecified; J45.40 Moderate persistent asthma, uncomplicated; Z88.2 Allergy status to sulfonamides; Z88.6 Allergy status to analgesic agent; Z88.5 Allergy status to narcotic agent; Z87.891 Personal history of nicotine dependence
CPT/HCPCS: 52204; J1956; J2003; J2405; J2704; J3010

== ENCOUNTER → 2025-04-07 12:48 | Outpatient (BNV) | payer OTHER, SELFPAY | PROVIDERS: PCP General Practice; Visit Provider Urology | DX: C67.4 Malignant neoplasm of posterior wall of bladder (principal) | CPT/HCPCS: 52204 ==

== ENCOUNTER 2025-04-15 11:09 | Day surgery (SDC) | payer OTHER, SELFPAY ==
--- NOTE | 2025-04-04 13:56 | P.CONAN_ITS ---
Documented by User: Audrey Diehl NP 04/04/25 14:06 HPI - Anesthesia Eval Consult details Narrative: 79 yr old female for Nephrostomy/Mariel Tube Exchange COPD Bladder CA: Follows with [facility] hematology/onc, last visit 04/02/25, her treatment was switched to sacituzumab govitecan from 03/28/2024 in the 3rd line setting, received this until January 2025; in view of disease progression on sacituzumab govitecan she was switched to enfortumab vedotin in January 2025. 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 (Acute) Bladder cancer (Chronic) Osteoarthritis of shoulders, bilateral (Acute) Lumbar radiculopathy (Chronic) Environmental allergies (Acute) Gastroesophageal reflux disease (Acute) Chronic idiopathic constipation (Acute) Hemorrhoids with complication (Acute) Past Medical History Medical History COPD (chronic obstructive pulmonary disease) Port-A-Cath in place Back pain Spinal stenosis Osteoarthritis of right shoulder Bladder cancer Chronic pain syndrome Encounter for preoperative pulmonary examination Levoscoliosis of lumbar spine Lumbar degenerative disc disease NADEEN (acute kidney injury) Encounter for preoperative pulmonary examination Hydronephrosis Osteoarthritis GERD (gastroesophageal reflux disease) Candidal urinary tract infection Malignant neoplasm of bladder neck Vaginal mass COVID-19 Emphysema lung Hyperlipidemia Hypertension Asthma Sepsis Bladder mass Hematuria H/O primary malignant neoplasm of urinary bladder Hemorrhoids with complication Vaginal pain Back pain Recurrent cough Dysuria Primary osteoarthritis, left shoulder Small intestinal bacterial overgrowth Bronchitis Abdominal cramping Hemorrhoids with complication Right-sided ischial pain Cough Moderate persistent allergic asthma Trochanteric bursitis, right hip UTI (urinary tract infection) Malignant neoplasm of urinary bladder Nausea and vomiting Low back pain due to bilateral sciatica Tendonitis of left rotator cuff Trochanteric bursitis of left hip Family History Family History Father No problems noted. Mother Diabetes Brother Lung cancer Daughter Diabetes Family history of problems with anesthesia: No Surgical History Surgical History History of surgery History of ERCP Hx laparoscopic cholecystectomy Hx of cystoscopy History of hysterectomy with bilateral oophorectomy Hx of colonoscopy (01/17/19) History of esophagogastroduodenoscopy (EGD) History of Problems with Anesthesia: No Social History Social History Household Members: Spouse Housing: Apartment Are you a primary respiratory care technician to a significant other at home: No Do you presently have visiting nurse or other home services: No Alcohol intake: never Patient Tobacco Use Status: Former Tobacco user Tobacco use type: Cigarette Years Smoked: 55 Use of substances other than those prescribed or required for medical reasons: No Have you been hit, kicked, punched, or otherwise hurt by someone within the past year? If so, by whom?: No Are you DNR?: No Advance Directives: No Advance Directives Information Provided: Yes Poor oral hygiene: No service: No Current occupational status: retired Current occupation: rt handed Meds Allergies Allergy/AdvReac Type Severity Reaction Status Date / Time shrimp Allergy Severe Hives Verified 04/07/25 13:10 aspirin (ASA) Allergy Intermediate RASH Verified 04/07/25 13:10 ibuprofen (Ibuprofen) Allergy Intermediate RASH Verified 04/07/25 13:10 morphine (MORPHINE) Allergy Intermediate ITCHING Verified 04/07/25 13:10 naproxen (From NAPROSYN) Allergy Intermediate RASH,N/V Verified 04/07/25 13:10 oxycodone (OXYCODONE) Allergy Intermediate NAUSEA & Verified 04/07/25 13:10 VOMITING, RASH sulfamethoxazole (From AdvReac Severe Abdominal Verified 04/07/25 13:10 Bactrim) Pain trimethoprim (From Bactrim) AdvReac Severe Abdominal Verified 04/07/25 13:10 Pain Home Medications ?Medication ?Instructions ?Recorded ?Confirmed ?Last Taken ?Type pravastatin 40 mg tablet 40 mg PO DAILY 12/28/2203/1203/12/24 History ipratropium 20 mcg-albuterol 100 1 puff inhalation QID 07/04/07/25 04/07/25 History mcg/actuation mist for inhalation (Combivent Respimat) Exam Pertinent Lab Results Pertinent Lab Results: Laboratory Tests 04/02/25 04/02/25 10:45 12:30 WBC 8.0 RBC 3.52 L Hgb 9.5 L Hct 30.3 L Plt Count 338 Sodium 138 Potassium 4.4 D BUN 37 H Creatinine 1.10 Narrative Narrative: EKG 07/2024 Vent. Rate : 084 BPM Atrial Rate : 084 BPM P-R Int : 172 ms QRS Dur : 072 ms QT Int : 362 ms P-R-T Axes : 067 029 051 degrees QTc Int : 427 ms Normal sinus rhythm Normal ECG When compared with ECG of 13-MAR-2024 13:38, Criteria for Lateral infarct are no longer Present Non-specific change in ST segment in Lateral leads Nonspecific T wave abnormality no longer evident in Lateral leads Assessment and Plan Final Anesthetic Review Family History of Problems with Anesthesia: No History of Problems with Anesthesia: No Documented by User: Ketan Escamilla MD 04/07/25 16:21 HPI - Anesthesia Eval Consult details Narrative: 79 yr old female for cysto, bladder bx. COPD Bladder CA: Follows with [facility] hematology/onc, last visit 04/02/25, her treatment was switched to sacituzumab govitecan from 03/28/2024 in the 3rd line setting, received this until January 2025; in view of disease progression on sacituzumab govitecan she was switched to enfortumab vedotin in January 2025. Port-a-cath right chest GERD: on PPI PMFSH Past Medical History Medical History COPD (chronic obstructive pulmonary disease) Port-A-Cath in place Back pain Spinal stenosis Osteoarthritis of right shoulder Bladder cancer Chronic pain syndrome Encounter for preoperative pulmonary examination Levoscoliosis of lumbar spine Lumbar degenerative disc disease NADEEN (acute kidney injury) Encounter for preoperative pulmonary examination Hydronephrosis Osteoarthritis GERD (gastroesophageal reflux disease) Candidal urinary tract infection Malignant neoplasm of bladder neck Vaginal mass COVID-19 Emphysema lung Hyperlipidemia Hypertension Asthma Sepsis Bladder mass Hematuria H/O primary malignant neoplasm of urinary bladder Hemorrhoids with complication Vaginal pain Back pain Recurrent cough Dysuria Primary osteoarthritis, left shoulder Small intestinal bacterial overgrowth Bronchitis Abdominal cramping Hemorrhoids with complication Right-sided ischial pain Cough Moderate persistent allergic asthma Trochanteric bursitis, right hip UTI (urinary tract infection) Malignant neoplasm of urinary bladder Nausea and vomiting Low back pain due to bilateral sciatica Tendonitis of left rotator cuff Trochanteric bursitis of left hip Functional capacity: uses cane/walker Family History Family History Father No problems noted. Mother Diabetes Brother Lung cancer Daughter Diabetes Surgical History Surgical History History of surgery History of ERCP Hx laparoscopic cholecystectomy Hx of cystoscopy History of hysterectomy with bilateral oophorectomy Hx of colonoscopy (01/17/19) History of esophagogastroduodenoscopy (EGD) Social History Social History Household Members: Spouse Housing: Apartment Are you a primary respiratory care technician to a significant other at home: No Do you presently have visiting nurse or other home services: No Alcohol intake: never Patient Tobacco Use Status: Former Tobacco user Tobacco use type: Cigarette Years Smoked: 55 Use of substances other than those prescribed or required for medical reasons: No Have you been hit, kicked, punched, or otherwise hurt by someone within the past year? If so, by whom?: No Are you DNR?: No Advance Directives: No Advance Directives Information Provided: Yes Poor oral hygiene: No service: No Current occupational status: retired Current occupation: rt handed Meds Allergies Allergy/AdvReac Type Severity Reaction Status Date / Time shrimp Allergy Severe Hives Verified 04/07/25 13:10 aspirin (ASA) Allergy Intermediate RASH Verified 04/07/25 13:10 ibuprofen (Ibuprofen) Allergy Intermediate RASH Verified 04/07/25 13:10 morphine (MORPHINE) Allergy Intermediate ITCHING Verified 04/07/25 13:10 naproxen (From NAPROSYN) Allergy Intermediate RASH,N/V Verified 04/07/25 13:10 oxycodone (OXYCODONE) Allergy Intermediate NAUSEA & Verified 04/07/25 13:10 VOMITING, RASH sulfamethoxazole (From AdvReac Severe Abdominal Verified 04/07/25 13:10 Bactrim) Pain trimethoprim (From Bactrim) AdvReac Severe Abdominal Verified 04/07/25 13:10 Pain Home Medications ?Medication ?Instructions ?Recorded ?Confirmed ?Last Taken ?Type pravastatin 40 mg tablet 40 mg PO DAILY 12/28/2203/1203/12/24 History ipratropium 20 mcg-albuterol 100 1 puff inhalation QID 04/07/25 04/07/25 04/07/25 History mcg/actuation mist for inhalation (Combivent Respimat) Exam Airway Mallampati Class: II TM Dist: >3cm Neck ROM: Full Loose/Missing/Broken Teeth: Yes (loose) and Lower Heart: ok Lungs: ok Assessment and Plan Assessment Anesthesia Assessment: Anesthesia Plan Discussed and Chart Reviewed Final Anesthetic Review NPO: Yes ASA Class: IV Final Preanesthetic Review: No Changes in Pt Med Stat, Meds/Allgs Chart Reviewed, Consent Obtained/Reviewed and Anes Risks/Benef Reviewed Patient Risk: High Procedure Risk: Low Anesthetic Plan Anesthetic Plan: GA and Agree w/ Assess. and Plan Disposition: Standard PACU
[2025-04-15] VITALS (13 sets, daily range): BP systolic 119–148; BP diastolic 54–74; PULSE 76–86; RESP 14–22; TEMP 36.9–37.4; O2SAT 96–100; BMI 16.9
--- NOTE | ~2025-04-15 | IR_ITS ---
EXAMINATION: XR NEPHROSTOMY TUBE CHANGE, Bilateral CLINICAL INFORMATION: FLUOROSCOPIC BILATERAL SIDED NEPHROSTOMY TUBE EXCHANGE History: Patient with bilateral nephrostomy tubes due to bladder cancer and ureteral obstruction. Patient presents for three-month maintenance change. Procedure: Patient was informed and consented to the procedure. The patient's back was prepped and draped in routine sterile fashion. 1% buffered lidocaine was used as anesthetic around the insertion site. The catheter left was cut and an stiff guidewire was placed through the tube and coiled into the renal pelvis. The old catheter was removed and over the wire. A new 8 Kenyan locking pigtail catheter was advanced over the wire. The wire was removed. 1% buffered lidocaine was used as anesthetic around the insertion site. The catheter left was cut and an stiff guidewire was placed through the tube and coiled into the renal pelvis. The old catheter was removed and over the wire. A new 8 Kenyan locking pigtail catheter was advanced over the wire. The wire was removed. 5 mL of contrast was injected to ensure proper positioning of each catheter in the renal pelvis. A 3-0 Ethilon suture was used to secure the catheters to the skin. A sterile dressing was applied. Total fluoroscopy time was 3.0. IR/IR nephrostomy tube change IMPRESSION: Bilateral Nephrostomy tube exchange This procedure performed by David Sheehan NP, and supervised by Dr. Jeff Chavarria MD Electronically signed by: Molina Chavarria MD 04/16/2025 05:52 PM EDT
[2025-04-15 12:35] LABS: INTERNATIONAL NORM RATIO 1.0 (0.9-1.1); Prothrombin Time 11.3 SEC (10.9-12.4)
--- NOTE | 2025-04-15 13:17 | PC.NURSE ---
job service consultant by bedside explaining the patients plan of care. c/o left sided flank pain near insertion site. patients was given options to do the procedure today with kirill the mixing supervisor or waiting one week for md church or keith to do the procedure and the patient still wants to proceed with kirill mixing supervisor to do the procedure. she also was told that the pain that she may be feeling can be form the tube partially out. dressing intact.
[2025-04-15] MEDS: Heparin Sodium,Porcine Flush 500 UNIT/5 ML SYRINGE IVFLUSH (15:20)
== END 2025-04-15 15:32 | disposition home or self-care (01) ==
PROVIDERS: Radiology Diagnostic Radiology; PCP General Practice; Visit Provider Urology
DX: C67.5 Malignant neoplasm of bladder neck (principal); N17.9 Acute kidney failure, unspecified; Z95.828 Presence of other vascular implants and grafts; J44.9 Chronic obstructive pulmonary disease, unspecified; J45.40 Moderate persistent asthma, uncomplicated; G89.4 Chronic pain syndrome; M51.369 Other intervertebral disc degeneration, lumbar region without mention of lumbar back pain or lower extremity pain; M48.061 Spinal stenosis, lumbar region without neurogenic claudication; J43.9 Emphysema, unspecified; I10 Essential (primary) hypertension; E78.5 Hyperlipidemia, unspecified; Z88.5 Allergy status to narcotic agent; Z88.2 Allergy status to sulfonamides; Z88.6 Allergy status to analgesic agent; Z87.891 Personal history of nicotine dependence; Z98.890 Other specified postprocedural states
CPT/HCPCS: 36415; 50435; 85610; 99152; 99153; J0690; J1642; J2003; J2250; J3010; Q9967

== ENCOUNTER → 2025-04-15 12:57 | Outpatient (BNV) | payer OTHER, SELFPAY | PROVIDERS: PCP General Practice | DX: C67.9 Malignant neoplasm of bladder, unspecified (principal) | CPT/HCPCS: 50435 ==

== ENCOUNTER 2025-04-25 14:43 | Outpatient (AMB) | payer OTHER, SELFPAY ==
--- NOTE | 2025-04-25 14:43 | A.OFFVIS_ITS ---
Intake Visit Reasons: Nephrostomy Tube Ex/Bladder biopsy results Intake Note: Patient is present for telehealth for NEPHROSTOMY F/U Urology Medication:NONE Antibiotic Allergy:BACTRIM Blood Thinner:NONE Guest Services Required: Yes Accompanied by: Self / Same As Patient Allergies shrimp Allergy (Severe, Verified 04/07/25 13:10) Hives aspirin (ASA) Allergy (Intermediate, Verified 04/07/25 13:10) RASH ibuprofen (Ibuprofen) Allergy (Intermediate, Verified 04/07/25 13:10) RASH morphine (MORPHINE) Allergy (Intermediate, Verified 04/07/25 13:10) ITCHING naproxen (From NAPROSYN) Allergy (Intermediate, Verified 04/07/25 13:10) RASH,N/V oxycodone (OXYCODONE) Allergy (Intermediate, Verified 04/07/25 13:10) NAUSEA & VOMITING, RASH sulfamethoxazole (From Bactrim) Adverse Reaction (Severe, Verified 04/07/25 13:10) Abdominal Pain trimethoprim (From Bactrim) Adverse Reaction (Severe, Verified 04/07/25 13:10) Abdominal Pain HPI Comments Details: Altaf is a pleasant female. She is a patient of . She seen for the following urologic conditions - recurrent high-grade bladder cancer invasive Telemedicine Evaluation 15 min Consultation Shoutlet Chalo Video attempted Citizen Of [place] translation provided by qualified medical claims analyst Had recent PCN change Doing great Creatinine 1.0 03/05 PCN tube change and replacement late February Significant improvement in creatinine Dropped from 2.0-1.4 Three-month follow-up 12/03 PCN Charge Difficulty sleeping Will take out PCN on right side Will change left side 09/03 biopsy - no cancer seen Needs PCN exchange Requesting a different interventional provider from last time - had pain with procedure, not the same as previously 02/01 stent internalization Bladder TURP with fulguration - high-grade T1 Removal of catheter Recommend induction 6 weeks mitomycin-C with cytarabine Stents to remain 01/02 Worsening hydronephrosis Creatinine ratio elevate Bilateral PCN placed followed by stent internalization in operating room Labs Cr 06/[address] right hydro, left mild hydro Completed neoadjuvant chemotherapy Right PCN placed after presentation for NADEEN - creatinine resolving from 2.9 down to 0.94 - 03/[address] scan with resolution of bladder thickening, right hydronephrosis. 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 The bladder is partially distended with irregular wall thickening and trabeculated appearance. Dilated appearance of both distal ureters. Moderate right hydronephrosis. Mild left hydronephrosis. No lymphadenopathy. Bladder cancer superficial high-grade 2019 - disease progression - 12/01 muscle invasive bladder cancer Initial diagnosis with Dr. Hankins TURBT 05/30 high-grade superficial noninvasive disease Adjuvant therapy BCG June 2019 Surveillance cystoscopy - 04/30 NAD, 10/01 NAD, 10/02 NAD - trabeculated bladder with BCG change [facility] Medical History COPD (chronic obstructive pulmonary disease) Port-A-Cath in place Back pain Spinal stenosis Osteoarthritis of right shoulder Bladder cancer Chronic pain syndrome Encounter for preoperative pulmonary examination Levoscoliosis of lumbar spine Lumbar degenerative disc disease NADEEN (acute kidney injury) Encounter for preoperative pulmonary examination Hydronephrosis Osteoarthritis GERD (gastroesophageal reflux disease) Candidal urinary tract infection Malignant neoplasm of bladder neck Vaginal mass COVID-19 Emphysema lung Hyperlipidemia Hypertension Asthma Sepsis Bladder mass Hematuria H/O primary malignant neoplasm of urinary bladder Hemorrhoids with complication Vaginal pain Back pain Recurrent cough Dysuria Primary osteoarthritis, left shoulder Small intestinal bacterial overgrowth Bronchitis Abdominal cramping Hemorrhoids with complication Right-sided ischial pain Cough Moderate persistent allergic asthma Trochanteric bursitis, right hip UTI (urinary tract infection) Malignant neoplasm of urinary bladder Nausea and vomiting Low back pain due to bilateral sciatica Tendonitis of left rotator cuff Trochanteric bursitis of left hip Surgical History History of surgery History of ERCP Hx laparoscopic cholecystectomy Hx of cystoscopy History of hysterectomy with bilateral oophorectomy Hx of colonoscopy (01/17/19) History of esophagogastroduodenoscopy (EGD) Family History Father No problems noted. Mother Diabetes Brother Lung cancer Daughter Diabetes Social History Household Members: Spouse Housing: Apartment Are you a primary day care provider to a significant other at home: No Do you presently have visiting nurse or other home services: No Alcohol intake: never Patient Tobacco Use Status: Former Tobacco user Tobacco use type: Cigarette Years Smoked: 55 service: No Current occupational status: retired Current occupation: rt handed Review of Systems Const All systems reviewed & are unremarkable except as noted in HPI and below Reports no additional complaints Resp Reports no additional complaints GI Reports no additional complaints Reports as per HPI Musc Reports no additional complaints Physical Exam Telemedicine evaluation Appropriate responses Regular breathing rate and rhythm HEENT Head: Yes normal to inspection Ears: hearing grossly normal bilaterally Eyes General: appearance normal, both eyes and all related structures Neck Neck: Yes normal visual inspection Chest Chest palpation & inspection: normal inspection of the chest Resp Effort & Inspection: normal respiratory effort and able to speak in complete sentences Telehealth Telehealth Telehealth Platform: Shoutlet Location of provider rendering services: practice address Location of patient: address on file Patient Identification confirmed using: Name, : Yes Telehealth method: video Patient verbally consented to treatment: Yes Patient verbally consented to billing insurance company: Yes Patient informed of any privacy concerns related to visit: Yes Assessment & Plan Assessment & Plan (1) Bladder cancer: Comment: Progressive high-grade urothelial carcinoma 12/01 muscle invasive with squamous differentiation Code(s): C67.9 - Malignant neoplasm of bladder, unspecified Category: Medical Qualifiers: Bladder location: overlapping sites Qualified Code(s): C67.8 - Malignant neoplasm of overlapping sites of bladder (2) 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: Code(s): N13.30 - Unspecified hydronephrosis; C67.9 - Malignant neoplasm of bladder, unspecified Category: Medical Plan Three-month follow-up tele Patient Instructions: This note is constructed using voice recognition software. While every effort has been made to ensure accuracy sales intern errors may have been included. Imaging studies, laboratory and physical exam results were discussed and reviewed in detail. No major barriers to patient understanding were identified. An opportunity to ask questions regarding the treatment plan was provided. All questions were answered. The patient expressed understanding and agreement with the above treatment plan. The patient is aware they should contact our office by phone for worsening of their current condition or the appearance of new urologic symptoms. Compliance is encouraged with any medications and followup testing that is ordered. It is a privilege to participate in the urologic care of your patient. If you have any questions or concerns regarding treatment for the above conditions, or other urologic issues, please do not hesitate to contact me. The office telephone contact is [phone]. Sincerely, Dr Severo Blair MD, [facility] - Urology Compassionate Specialist Care for the Genitourinary System Coding Level of Care Code Tele Est Pt Level 3 (53069) Complex EM visit Add On G2211 Diagnoses Malignant neoplasm of overlapping sites of bladder C67.8 Bladder location: overlapping sites 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 N13.30; C67.9
--- OUTSIDE RECORDS SUMMARY | 2025-04-25 14:44 | XMS_ITS | Clinical Summary ---
Author Organization [facility] Facility Address [address] [address] Care Team Providers Care Prevention Coordinator Name Role Phone Unavailable Primary Care [...]
--- OUTSIDE RECORDS SUMMARY | 2025-04-25 14:44 | XMS_ITS | Encounter Summary ---
Author Organization [employer] Address [address] [place] [address] [address] [place] [address] Care Team Providers Care Dock Attendant Name Role Phone Angeline Klein MD Primary Care Provider Reason for Visit * Reason Onset Date Comments Appointment Request 05/22/2023 Encounter Details Date Type Department Care Team ([facility] st Contact Info) Description 05/22/2023 Telephone [facility] MEDICINE [address] [place] [address] Angeline Klein MD [address] [place] [address] Appointment Request Social History Tobacco Use Types [...] @ 2:30 pm. Please contact pt at [phone] documented in this encounter Plan of Treatment Not on file documented as of this encounter Visit Diagnoses Not on filedocumented in this encounter Care Teams Dock Attendant Relationship Specialty Start Date End Date Angeline Klein MD [address] [place] [id number] PCP - General Family Medicine 08/21/20 documented as of this encounter
--- OUTSIDE RECORDS SUMMARY | 2025-04-25 14:44 | XMS_ITS | Clinical Summary ---
Author Organization [facility] Address [address] [place] [phone] Phone Care Team Providers Care Communication Consultant Name Role Phone Unavailable Primary Care [...] It is not the complete legal health record.[facility]
== END 2025-04-25 15:31 | disposition home or self-care (01) ==
LOC: HO.HUSH 14:43
PROVIDERS: PCP General Practice; Visit Provider Urology
DX: C67.8 Malignant neoplasm of overlapping sites of bladder (principal); N13.30 Unspecified hydronephrosis; C67.9 Malignant neoplasm of bladder, unspecified
CPT/HCPCS: 99213; G2211

== ENCOUNTER 2025-04-30 10:34 | Outpatient (AMB) | payer OTHER, SELFPAY ==
--- NOTE | 2025-04-30 10:37 | A.OFFVIS_ITS ---
Vital Signs 04/30/25 10:53 Height 5 ft 2 in Weight 100 lb BMI 18.3 BP 114/56 L Blood Pressure Location Rt brachial Position Sitting Pulse 98 Pulse Source Pulse Oximeter Pulse Oximetry (%) 95 Oxygen Delivery Method Room Air Intake Visit Reasons: GERD< CIC Intake Note: Est pt for mgmt of GERD + CIC. C.C; Pt denies any GI sx or concerns at this time Unitizer Required: Yes Unitizer Services: Unitizer Present Unitizer Name: Amarjit [id number] Information Interpreted: clinical only Accompanied by: Self / Same As Patient Allergies shrimp Allergy (Severe, Verified 04/07/25 13:10) Hives aspirin (ASA) Allergy (Intermediate, Verified 04/07/25 13:10) RASH ibuprofen (Ibuprofen) Allergy (Intermediate, Verified 04/07/25 13:10) RASH morphine (MORPHINE) Allergy (Intermediate, Verified 04/07/25 13:10) ITCHING naproxen (From NAPROSYN) Allergy (Intermediate, Verified 04/07/25 13:10) RASH,N/V oxycodone (OXYCODONE) Allergy (Intermediate, Verified 04/07/25 13:10) NAUSEA & VOMITING, RASH sulfamethoxazole (From Bactrim) Adverse Reaction (Severe, Verified 04/07/25 13:10) Abdominal Pain trimethoprim (From Bactrim) Adverse Reaction (Severe, Verified 04/07/25 13:10) Abdominal Pain HPI HPI GERD< CIC: Details: Assessment & Plan (1) Hemorrhoids with complication: Code(s): K64.8 - Other hemorrhoids Category: Medical (2) Chronic idiopathic constipation: Code(s): K59.04 - Chronic idiopathic constipation Category: Medical (3) Gastroesophageal reflux disease: Code(s): K21.9 - Gastro-esophageal reflux disease without esophagitis Category: Medical Plan [place] Citizen #[id number] She has been really struggling with her health recently, as her bladder ca seems to have spread to her vagina. She will be having some sort of infusion therapy starting this week. I understand this is trying for her and I wish her the best with this for her recovery. She is seeing our Oncology Department and she has good continence that they will help her as best they can. She is having trouble because she ran out of the proctosol cream for her hemorrhoids, and is getting to the end of her LInzess rx. She confirms that it works well for her at the 145mcg dose, but she went a period of time w/o it r/t a refill mistake. She is doing well on her omeprazole. ROV 3 mos Medications: New linaclotide (Linzess) Take first thing in the morning with a full glass of water. 145 mcg PO QAM 90 days 90 caps 1RF K58.1 - Irritable bowel syndrome with constipation hydrocortisone 2.5% (Proctosol HC) BE SURE TO INCLUDE RECTAL APPICATOR!! 1 appl MS BID 30 grams 6RF hemorrhoids K64.9 - Unspecified hemorrhoids Changed From omeprazole 40 mg PO DAILY 30 caps 6RF To omeprazole 40 mg PO DAILY 90 days 90 caps 1RF Refilled simethicone (Gas Relief (simethicone)) 80 mg PO BEDTIME 30 tabs 1RF TODAYS VISIT [place] Citizen #Kamilla Oliver Her current GI regimen consists of simethicone, omeprazole 40 mg daily, hydrochlorothiazide/Proctosol cream for hemorrhoids and Linzess 145 micro g. She is now stable on the current regimen. [facility] Medical History COPD (chronic obstructive pulmonary disease) Port-A-Cath in place Back pain Spinal stenosis Osteoarthritis of right shoulder Bladder cancer Chronic pain syndrome Encounter for preoperative pulmonary examination Levoscoliosis of lumbar spine Lumbar degenerative disc disease NADEEN (acute kidney injury) Encounter for preoperative pulmonary examination Hydronephrosis Osteoarthritis GERD (gastroesophageal reflux disease) Candidal urinary tract infection Malignant neoplasm of bladder neck Vaginal mass COVID-19 Emphysema lung Hyperlipidemia Hypertension Asthma Sepsis Bladder mass Hematuria H/O primary malignant neoplasm of urinary bladder Hemorrhoids with complication Vaginal pain Back pain Recurrent cough Dysuria Primary osteoarthritis, left shoulder Small intestinal bacterial overgrowth Bronchitis Abdominal cramping Hemorrhoids with complication Right-sided ischial pain Cough Moderate persistent allergic asthma Trochanteric bursitis, right hip UTI (urinary tract infection) Malignant neoplasm of urinary bladder Nausea and vomiting Low back pain due to bilateral sciatica Tendonitis of left rotator cuff Trochanteric bursitis of left hip Surgical History History of surgery History of ERCP Hx laparoscopic cholecystectomy Hx of cystoscopy History of hysterectomy with bilateral oophorectomy Hx of colonoscopy (01/17/19) History of esophagogastroduodenoscopy (EGD) Family History Father No problems noted. Mother Diabetes Brother Lung cancer Daughter Diabetes Social History Household Members: Spouse Housing: Apartment Are you a primary child care center administrator to a significant other at home: No Do you presently have visiting nurse or other home services: No Alcohol intake: never Patient Tobacco Use Status: Former Tobacco user Tobacco use type: Cigarette Years Smoked: 55 Use of substances other than those prescribed or required for medical reasons: No Have you been hit, kicked, punched, or otherwise hurt by someone within the past year? If so, by whom?: No Do you feel safe in your current relationship?: Yes Do you have thoughts of harming others: None Do you have a plan to hurt others: No Plan Do you have the means to hurt others: No Recently lost weight without trying: Yes How much weight loss: 2-13 pounds Eating poorly because of decreased appetite: Yes Nutrition screen score: 4 service: No Current occupational status: retired Current occupation: rt handed Review of Systems Const Denies fatigue, Denies fever(s), Denies night sweats, Denies poor appetite and Reports weight loss Eyes Details: glasses Reports requires corrective lenses ENT Reports Normal hearing present, Denies dental pain, Denies dysphagia, Denies hearing loss, Denies mouth pain, Denies odynophagia, Denies throat swelling, Denies tongue swelling and Reports other (Dentition adequate) Card Reports no additional complaints Resp Reports no additional complaints GI Details: Denies abdominal pain, Denies melena, Denies bloating, Denies hematochezia, Reports constipation, Denies GI cramping, Denies dysphagia, Denies excessive flatus, Denies early satiety, Reports heartburn, Denies diarrhea, Denies nausea, Denies odynophagia, Denies vomiting and Denies hematemesis Skin/Breast Denies pruritus, Denies lesions, Denies rash and Denies jaundice Neuro Reports Normal hearing present and Denies Abnormal speech present Endo Denies fatigue Aller/Immun Denies throat swelling and Denies tongue swelling Physical Exam Vital Signs: Last Vital Signs Pulse 98 04/30/25 10:53 BP 114/56 L 04/30/25 10:53 Pulse Ox 95 04/30/25 10:53 Oxygen Delivery Method Room Air 04/30/25 10:53 BMI result Body Mass Index 18.3 Const General: cooperative, no acute distress, well developed and well groomed Nutritional Appearance: well nourished and thin Orientation/consciousness: oriented to person, oriented to place and oriented to time Limitations: language barrier and ambulation with walker HEENT Head: Yes normocephalic and Yes atraumatic Eyes General: appearance normal, both eyes and all related structures Pupils: Equal, round and reactive pupils present Neck Neck: Yes normal visual inspection and Yes no lymphadenopathy Thyroid: Thyroid normal Resp Effort & Inspection: normal respiratory effort and able to speak in complete sentences Auscultation: clear to auscultation bilaterally Cardio Rate: regular rate Rhythm: regular rhythm Heart sounds: Normal, physiologic split S2 sound present Peripheral pulses: radial pulses present and posterior tibial pulses present GI Inspection: No distended and No Abdominal panniculus present Palpation (GI): Soft to palpation, nontender, no guarding, not rigid and No hepatosplenomegaly present Percussion: Yes normal to percussion Auscultation: normal bowel sounds Rectal Exam - Female: deferred Skin General skin exam: no rashes or lesions noted, turgor normal, skin not dry, no jaundice, No spider nevi and no striae Rashes: no rashes Nails: normal Neuro General: oriented to person, oriented to place and oriented to time Cranial nerves: Yes Equal, round and reactive pupils present and Yes Normal hearing present Speech: No Abnormal speech present Extrem General: Yes normal to inspection, No clubbing, No cyanosis and No edema Psych Appearance: grossly normal and well kempt Mental Status: mental status grossly normal Speech and movement: Normal speech and movement present Affect: normal affect Attitude: cooperative Thought process: Normal thought process present and not confabulating Thought content: Normal thought content present Insight: Fair insight present (Psych) Judgement: Fair judgement present (Psych) Assessment & Plan Assessment & Plan (1) Chronic idiopathic constipation: Code(s): K59.04 - Chronic idiopathic constipation Category: Medical (2) Gastroesophageal reflux disease: Code(s): K21.9 - Gastro-esophageal reflux disease without esophagitis Category: Medical Plan [place] Citizen #Kamilla Oliver Her current GI regimen consists of simethicone, omeprazole 40 mg daily, hydrochlorothiazide/Proctosol cream for hemorrhoids and Linzess 145 micro History of Present Illness - The patient is a 79-year-old female presenting with management of GERD, bloating, hemorrhoids, and chronic constipation. - She reports that Linzess has become less effective recently, prompting a discussion about increasing the dose from 145 mcg to 290 mcg. - Current use of Proctosol cream has alleviated her hemorrhoidal symptoms. - The patient is managing her scheduling around bladder cancer treatment, indicating a need for flexibility in follow-up care. Review of Systems - Gastrointestinal: Reports decreased efficacy of Linzess and use for alleviating gastrointestinal symptoms. Denies need for changes in hemorrhoid treatment at this time. - Dermatologic: Reports the use of Proctosol cream has alleviated hemorrhoid symptoms. Plan - Increase Linzess to 290 mcg, monitor for diarrhea, and titrate to affect her side effect. If she develops diarrhea we may need to put her back to the 145 micro g dose and add an [id number] motility laxative. - Follow up in three weeks to evaluate the dosage adjustment effectiveness. - Continue using Proctosol cream for hemorrhoid relief, with no additional changes. Patient was informed and verbally consented to the use of an ambient scribe for clinic note documentation during this visit. Return office visit in 3 weeks Medications: New linaclotide (Linzess) 290 mcg PO QAM 90 caps 1RF 90 days On Hold linaclotide (Linzess) Hold Comment: Doctor's Order 145 mcg PO QAM 90 days 90 caps 1RF K58.1 - Irritable bowel syndrome with constipation Coding Level of Care Code Est Pt Level 3 (09972) Diagnoses Chronic idiopathic constipation K59.04 Gastroesophageal reflux disease K21.9
[2025-04-30 10:53] VITALS: BP 114/56; PULSE 98; O2SAT 95; BMI 18.3
--- OUTSIDE RECORDS SUMMARY | 2025-04-30 11:52 | XMS_ITS | Clinical Summary ---
Author Organization [facility] Address [address] [place] [phone] Phone Care Team Providers Care Regional Sales Coordinator Name Role Phone Unavailable Primary Care [...] It is not the complete legal health record.[facility]
--- OUTSIDE RECORDS SUMMARY | 2025-04-30 11:52 | XMS_ITS | Clinical Summary ---
Author Organization [facility] Facility Address [address] [address] Care Team Providers Care Patient Relations Specialist Name Role Phone Unavailable Primary Care [...]
--- OUTSIDE RECORDS SUMMARY | 2025-04-30 11:52 | XMS_ITS | Encounter Summary ---
Author Organization [employer] Address [address] [place] [address] [address] [place] [address] Care Team Providers Care Family Development Extension Specialist Name Role Phone Angeline Klein MD Primary Care Provider [phone] Reason for Visit * Reason Onset Date Comments Appointment Request 05/22/2023 Encounter Details Date Type Department Care Team ([facility] st Contact Info) Description 05/22/2023 Telephone [facility] MEDICINE [address] [place] [address] Angeline Klein MD [address] [place] [address] Appointment Request Social History Tobacco Use Types [...] @ 2:30 pm. Please contact pt at [phone] documented in this encounter Plan of Treatment Not on file documented as of this encounter Visit Diagnoses Not on filedocumented in this encounter Care Teams Family Development Extension Specialist Relationship Specialty Start Date End Date Angeline Klein MD [address] [place] [phone] PCP - General Family Medicine 08/21/20 documented as of this encounter
== END 2025-04-30 11:22 | disposition home or self-care (01) ==
LOC: HO.HGI 10:34
PROVIDERS: PCP General Practice; Visit Provider Nurse Practitioner
DX: K59.04 Chronic idiopathic constipation (principal); K21.9 Gastro-esophageal reflux disease without esophagitis
CPT/HCPCS: 99213

== ENCOUNTER → 2025-04-30 10:34 | Outpatient (BNVA) | payer OTHER, SELFPAY | PROVIDERS: PCP General Practice; Visit Provider Nurse Practitioner | DX: K21.9 Gastro-esophageal reflux disease without esophagitis (principal); K64.8 Other hemorrhoids; K59.04 Chronic idiopathic constipation; C67.9 Malignant neoplasm of bladder, unspecified | CPT/HCPCS: 99212 ==

== ENCOUNTER 2025-05-05 10:18 | Outpatient (AMB) | payer OTHER, SELFPAY ==
[2025-05-05 10:29] VITALS: BP 126/60; PULSE 92; O2SAT 96; BMI 18.5
--- NOTE | 2025-05-05 10:29 | A.OFFVIS_ITS ---
Vital Signs 05/05/25 10:29 Height 5 ft 2 in Weight 101 lb BMI 18.5 BP 126/60 Blood Pressure Location Rt brachial Position Sitting Pulse 92 Pulse Source Pulse Oximeter Pulse Oximetry (%) 96 Oxygen Delivery Method Room Air Intake Visit Reasons: COPD Vocal Teacher Required: Yes Vocal Teacher Name: Latricia Page MarcealLMiquelYani Allergies shrimp Allergy (Severe, Verified 05/05/25 10:35) Hives aspirin (ASA) Allergy (Intermediate, Verified 05/05/25 10:35) RASH ibuprofen (Ibuprofen) Allergy (Intermediate, Verified 05/05/25 10:35) RASH morphine (MORPHINE) Allergy (Intermediate, Verified 05/05/25 10:35) ITCHING naproxen (From NAPROSYN) Allergy (Intermediate, Verified 05/05/25 10:35) RASH,N/V oxycodone (OXYCODONE) Allergy (Intermediate, Verified 05/05/25 10:35) NAUSEA & VOMITING, RASH sulfamethoxazole (From Bactrim) Adverse Reaction (Severe, Verified 05/05/25 10:35) Abdominal Pain trimethoprim (From Bactrim) Adverse Reaction (Severe, Verified 05/05/25 10:35) Abdominal Pain HPI HPI COPD: Details: 79-year-old lady, former approximately 15 pack-year smoker, quit 2014 followed for dyspnea on exertion and moderate to severe persistent asthma.? She continues to use Nucala, Flovent, and Combivent with good control of her underlying symptoms. She denies any recent exacerbations. She does complain of recurrent bronchitic symptoms now symptomatic with cough productive of whitish sputum, particularly at night. [facility] Medical History COPD (chronic obstructive pulmonary disease) Port-A-Cath in place Back pain Spinal stenosis Osteoarthritis of right shoulder Bladder cancer Chronic pain syndrome Encounter for preoperative pulmonary examination Levoscoliosis of lumbar spine Lumbar degenerative disc disease NADEEN (acute kidney injury) Encounter for preoperative pulmonary examination Hydronephrosis Osteoarthritis GERD (gastroesophageal reflux disease) Candidal urinary tract infection Malignant neoplasm of bladder neck Vaginal mass COVID-19 Emphysema lung Hyperlipidemia Hypertension Asthma Sepsis Bladder mass Hematuria H/O primary malignant neoplasm of urinary bladder Hemorrhoids with complication Vaginal pain Back pain Recurrent cough Dysuria Primary osteoarthritis, left shoulder Small intestinal bacterial overgrowth Bronchitis Abdominal cramping Hemorrhoids with complication Right-sided ischial pain Cough Moderate persistent allergic asthma Trochanteric bursitis, right hip UTI (urinary tract infection) Malignant neoplasm of urinary bladder Nausea and vomiting Low back pain due to bilateral sciatica Tendonitis of left rotator cuff Trochanteric bursitis of left hip Surgical History History of surgery History of ERCP Hx laparoscopic cholecystectomy Hx of cystoscopy History of hysterectomy with bilateral oophorectomy Hx of colonoscopy (01/17/19) History of esophagogastroduodenoscopy (EGD) Family History Father No problems noted. Mother Diabetes Brother Lung cancer Daughter Diabetes Social History Household Members: Spouse Housing: Apartment Are you a primary healthcare customer service to a significant other at home: No Do you presently have visiting nurse or other home services: No Alcohol intake: never Patient Tobacco Use Status: Former Tobacco user Tobacco use type: Cigarette Years Smoked: 56 service: No Current occupational status: retired Current occupation: rt handed Review of Systems Const Denies daytime sleepiness, Denies excessive sweating, Denies fatigue, Denies fever(s), Denies lethargy, Denies malaise, Denies night sweats, Denies snoring a nd Denies weight loss Eyes Denies blurry vision and Denies itchy eyes ENT Denies nasal congestion, Denies post nasal drip, Denies sinus pain, Denies sinus pressure and Denies other ( Thrush) Card Denies chest pain, Denies pedal edema, Denies dyspnea, Denies orthopnea and Denies paroxysmal nocturnal dyspnea Resp Reports cough, Denies hemoptysis, Reports excessive phlegm production, Denies dyspnea, Denies snoring and Denies wheezing GI Denies abdominal pain and Denies heartburn Musc Denies myalgias, Denies arthralgias and Denies joint swelling Skin/Breast Denies rash Neuro Denies memory loss and Denies seizure-like activity Psych Denies abnormal sleep pattern, Denies anxiety and Denies memory loss Endo Denies excessive sweating, Denies fatigue and Denies heat intolerance Elio/Lymph Denies easy bruising Aller/Immun Denies itchy eyes, Denies seasonal rhinorrhea and Denies wheezing Physical Exam Vital Signs: Last Vital Signs Pulse 92 05/05/25 10:29 BP 126/60 05/05/25 10:29 Pulse Ox 96 05/05/25 10:29 Oxygen Delivery Method Room Air 05/05/25 10:29 BMI result Body Mass Index 18.5 Const General: no acute distress and alert Nutritional Appearance: not obese Orientation/consciousness: Other orientation findings ( oriented) HEENT Head: Yes atraumatic Eyes General: appearance normal, both eyes and all related structures Sclerae: sclerae normal EOM: EOMs intact bilaterally Neck Neck: Yes supple Lymphatic: no lymphadenopathy noted Resp Effort & Inspection: normal respiratory effort and no use of accessory muscles Auscultation: clear to auscultation bilaterally Cardio Rate: regular rate Rhythm: regular rhythm Heart sounds: no gallops, no murmurs and no rubs Skin General skin exam: other ( warm) Extrem General: No clubbing, No cyanosis and No edema Assessment & Plan Assessment & Plan (1) Severe persistent asthma: Code(s): J45.50 - Severe persistent asthma, uncomplicated Category: Medical Plan: Well controlled on current regimen of Nucala, Flovent, and albuterol MDI. Continue current regimen. (2) Environmental allergies: Code(s): Z91.09 - Other allergy status, other than to drugs and biological substances Category: Medical Plan: Well controlled on Nucala. Continue current regimen. (3) Bronchitis, mucopurulent recurrent: Code(s): J41.1 - Mucopurulent chronic bronchitis Category: Medical Plan: Now with an acute exacerbation. Will treat with a course of Augmentin. Medications: New amoxicillin-pot clavulanate 875-125 mg 1 tab PO BID 14 tabs 0RF Coding Level of Care Code Est Pt Level 4 (28899) Diagnoses Severe persistent asthma J45.50 Environmental allergies Z91.09 Bronchitis, mucopurulent recurrent J41.1
--- OUTSIDE RECORDS SUMMARY | 2025-05-05 11:28 | XMS_ITS | Clinical Summary ---
Author Organization [facility] Facility Address [address] [address] Care Team Providers Care Bookkeeper Name Role Phone Unavailable Primary Care Provider [...]
--- OUTSIDE RECORDS SUMMARY | 2025-05-05 11:28 | XMS_ITS | Clinical Summary ---
Author Organization [facility] Address [address] [place] [phone] Phone Care Team Providers Care Knitter Operator Name Role Phone Unavailable Primary Care [...] It is not the complete legal health record.[facility]
--- OUTSIDE RECORDS SUMMARY | 2025-05-05 11:28 | XMS_ITS | Encounter Summary ---
Author Organization [employer] Address [address] [place] [address] [address] [place] [address] Care Team Providers Care Outbound Sales Professional Name Role Phone Angeline Klein MD Primary Care Provider [phone] Reason for Visit * Reason Onset Date Comments Appointment Request 05/22/2023 Encounter Details Date Type Department Care Team ([facility] st Contact Info) Description 05/22/2023 Telephone [facility] [address] [place] [address] Angeline Klein MD [address] [place] [address] Appointment Request Social History Tobacco Use Types [...] @ 2:30 pm. Please contact pt at [phone] documented in this encounter Plan of Treatment Not on file documented as of this encounter Visit Diagnoses Not on filedocumented in this encounter Care Teams Outbound Sales Professional Relationship Specialty Start Date End Date Angeline Klein MD [address] [place] [id number] PCP - General Family Medicine 08/21/20 documented as of this encounter
== END 2025-05-05 10:43 | disposition home or self-care (01) ==
LOC: HO.HPS 10:19
PROVIDERS: PCP General Practice; Visit Provider Internal Medicine Pulmonary Disease
DX: J45.50 Severe persistent asthma, uncomplicated (principal); Z91.09 Other allergy status, other than to drugs and biological substances; J41.1 Mucopurulent chronic bronchitis
CPT/HCPCS: 99214

== ENCOUNTER → 2025-05-05 10:18 | Outpatient (BNVA) | payer OTHER, SELFPAY | PROVIDERS: PCP General Practice; Visit Provider Internal Medicine Pulmonary Disease | DX: J45.50 Severe persistent asthma, uncomplicated (principal); J41.1 Mucopurulent chronic bronchitis; Z91.09 Other allergy status, other than to drugs and biological substances | CPT/HCPCS: 99212 ==

== ENCOUNTER 2025-05-23 10:03 | Outpatient (AMB) | payer OTHER, SELFPAY ==
[2025-05-23 10:48] VITALS: BP 146/76; PULSE 75; BMI 18.5
--- NOTE | 2025-05-23 10:48 | A.OFFVIS_ITS ---
Vital Signs 05/23/25 10:48 Height 5 ft 2 in Weight 101 lb BMI 18.5 BP 146/76 H Blood Pressure Location Lt brachial Position Sitting Pulse 75 Intake Visit Reasons: 3w Intake Note: Patient in office today in follow up of CIC and GERD. CC: Patient rerports doing well. Public Aid Eligibility Assistant Required: Yes Public Aid Eligibility Assistant Language: Kittitian Allergies shrimp Allergy (Severe, Verified 05/23/25 10:59) Hives aspirin (ASA) Allergy (Intermediate, Verified 05/23/25 10:59) RASH ibuprofen (Ibuprofen) Allergy (Intermediate, Verified 05/23/25 10:59) RASH morphine (MORPHINE) Allergy (Intermediate, Verified 05/23/25 10:59) ITCHING naproxen (From NAPROSYN) Allergy (Intermediate, Verified 05/23/25 10:59) RASH,N/V oxycodone (OXYCODONE) Allergy (Intermediate, Verified 05/23/25 10:59) NAUSEA & VOMITING, RASH sulfamethoxazole (From Bactrim) Adverse Reaction (Severe, Verified 05/23/25 10:59) Abdominal Pain trimethoprim (From Bactrim) Adverse Reaction (Severe, Verified 05/23/25 10:59) Abdominal Pain HPI HPI 3w: Details: Assessment & Plan (1) Chronic idiopathic constipation: Code(s): K59.04 - Chronic idiopathic constipation Category: Medical (2) Gastroesophageal reflux disease: Code(s): K21.9 - Gastro-esophageal reflux disease without esophagitis Category: Medical Plan Kittitian #Kamilla Oliver Her current GI regimen consists of simethicone, omeprazole 40 mg daily, hydrochlorothiazide/Proctosol cream for hemorrhoids and Linzess 145 micro History of Present Illness - The patient is a 79-year-old female presenting with management of GERD, bloating, hemorrhoids, and chronic constipation. - She reports that Linzess has become less effective recently, prompting a discussion about increasing the dose from 145 mcg to 290 mcg. - Current use of Proctosol cream has alleviated her hemorrhoidal symptoms. - The patient is managing her scheduling around bladder cancer treatment, indicating a need for flexibility in follow-up care. Review of Systems - Gastrointestinal: Reports decreased efficacy of Linzess and use for alleviating gastrointestinal symptoms. Denies need for changes in hemorrhoid treatment at this time. - Dermatologic: Reports the use of Proctosol cream has alleviated hemorrhoid symptoms. Plan - Increase Linzess to 290 mcg, monitor for diarrhea, and titrate to affect her side effect. If she develops diarrhea we may need to put her back to the 145 micro g dose and add an [id number] motility laxative. - Follow up in three weeks to evaluate the dosage adjustment effectiveness. - Continue using Proctosol cream for hemorrhoid relief, with no additional changes. Patient was informed and verbally consented to the use of an ambient scribe for clinic note documentation during this visit. Return office visit in 3 weeks Medications: New linaclotide (Linzess) 290 mcg PO QAM 90 caps 1RF 90 days On Hold linaclotide (Linzess) Hold Comment: Doctor's Order 145 mcg PO QAM 90 days 90 caps 1RF K58.1 - Irritable bowel syndrome with constipation TODAYS VISIT Somali # PFSH Medical History COPD (chronic obstructive pulmonary disease) Port-A-Cath in place Back pain Spinal stenosis Osteoarthritis of right shoulder Bladder cancer Chronic pain syndrome Encounter for preoperative pulmonary examination Levoscoliosis of lumbar spine Lumbar degenerative disc disease NADEEN (acute kidney injury) Encounter for preoperative pulmonary examination Hydronephrosis Osteoarthritis GERD (gastroesophageal reflux disease) Candidal urinary tract infection Malignant neoplasm of bladder neck Vaginal mass COVID-19 Emphysema lung Hyperlipidemia Hypertension Asthma Sepsis Bladder mass Hematuria H/O primary malignant neoplasm of urinary bladder Hemorrhoids with complication Vaginal pain Back pain Recurrent cough Dysuria Primary osteoarthritis, left shoulder Small intestinal bacterial overgrowth Bronchitis Abdominal cramping Hemorrhoids with complication Right-sided ischial pain Cough Moderate persistent allergic asthma Trochanteric bursitis, right hip UTI (urinary tract infection) Malignant neoplasm of urinary bladder Nausea and vomiting Low back pain due to bilateral sciatica Tendonitis of left rotator cuff Trochanteric bursitis of left hip Surgical History History of surgery History of ERCP Hx laparoscopic cholecystectomy Hx of cystoscopy History of hysterectomy with bilateral oophorectomy Hx of colonoscopy (01/17/19) History of esophagogastroduodenoscopy (EGD) Family History Father No problems noted. Mother Diabetes Brother Lung cancer Daughter Diabetes Social History Household Members: Spouse Housing: Apartment Are you a primary career services assistant to a significant other at home: No Do you presently have visiting nurse or other home services: No Alcohol intake: never Patient Tobacco Use Status: Former Tobacco user Tobacco use type: Cigarette Years Smoked: 56 service: No Current occupational status: retired Current occupation: rt handed Review of Systems Const Denies fatigue, Denies fever(s), Denies night sweats, Denies poor appetite and Denies weight loss ENT Reports Normal hearing present, Denies dental pain, Denies dysphagia, Denies hearing loss, Denies mouth pain, Denies odynophagia, Denies throat swelling, Denies tongue swelling and Reports other (Dentition adequate) Card Reports no additional complaints Resp Reports no additional complaints GI Details: Denies abdominal pain, Denies melena, Denies bloating, Denies hematochezia, Reports constipation, Denies GI cramping, Denies dysphagia, Denies excessive flatus, Denies early satiety, Reports heartburn, Denies diarrhea, Denies nausea, Denies odynophagia, Denies vomiting and Denies hematemesis Musc Reports abnormal gait and Reports myalgias Skin/Breast Denies pruritus, Denies lesions, Denies rash and Denies jaundice Neuro Reports Normal hearing present, Denies Abnormal speech present and Reports abnormal gait Endo Denies fatigue Aller/Immun Denies throat swelling and Denies tongue swelling Physical Exam Vital Signs: Last Vital Signs Pulse 75 05/23/25 10:48 BP 146/76 H 05/23/25 10:48 BMI result Body Mass Index 18.5 Const General: cooperative, no acute distress, well developed and well groomed Nutritional Appearance: well nourished and thin Orientation/consciousness: oriented to person, oriented to place and oriented to time Limitations: language barrier and ambulation with walker HEENT Head: Yes normocephalic and Yes atraumatic Eyes General: appearance normal, both eyes and all related structures Pupils: Equal, round and reactive pupils present Neck Neck: Yes normal visual inspection and Yes no lymphadenopathy Thyroid: Thyroid normal Resp Effort & Inspection: normal respiratory effort and able to speak in complete sentences Auscultation: clear to auscultation bilaterally Cardio Rate: regular rate Rhythm: regular rhythm Heart sounds: Normal, physiologic split S2 sound present Peripheral pulses: radial pulses present and posterior tibial pulses present GI Inspection: No distended and No Abdominal panniculus present Palpation (GI): Soft to palpation, nontender, no guarding, not rigid and No hepatosplenomegaly present Percussion: Yes normal to percussion Auscultation: normal bowel sounds Rectal Exam - Female: deferred Skin General skin exam: no rashes or lesions noted, turgor normal, skin not dry, no jaundice, No spider nevi and no striae Rashes: no rashes Nails: normal Neuro General: oriented to person, oriented to place and oriented to time Cranial nerves: Yes Equal, round and reactive pupils present and Yes Normal hearing present Speech: No Abnormal speech present Extrem General: Yes normal to inspection, No clubbing, No cyanosis and No edema Psych Appearance: grossly normal and well kempt Mental Status: mental status grossly normal Speech and movement: Normal speech and movement present Affect: normal affect Attitude: cooperative Thought process: Normal thought process present and not confabulating Thought content: Normal thought content present Insight: Good insight present (Psych) Judgement: Good judgement present (Psych) Assessment & Plan Assessment & Plan (1) Gastroesophageal reflux disease: Code(s): K21.9 - Gastro-esophageal reflux disease without esophagitis Category: Medical (2) Chronic idiopathic constipation: Code(s): K59.04 - Chronic idiopathic constipation Category: Medical (3) Hemorrhoids with complication: Code(s): K64.8 - Other hemorrhoids Category: Medical Plan Kittitian # daughter translates per patient request Her current GI regimen consists of simethicone, omeprazole 40 mg daily, hydrochlorothiazide/Proctosol cream for hemorrhoids and Linzess 290 micro With the increase of the Linzess she is now quite satisfied with her GI regimen. Return office visit in 6 months Coding Level of Care Code Est Pt Level 3 (58212) Diagnoses Gastroesophageal reflux disease K21.9 Chronic idiopathic constipation K59.04 Hemorrhoids with complication K64.8
--- OUTSIDE RECORDS SUMMARY | 2025-05-23 11:25 | XMS_ITS | Encounter Summary ---
Author Organization [employer] Address [address] [facility] [address] [place] [address] Care Team Providers Care Field Hand Name Role Phone Angeline Klein MD Primary Care Provider Encounter Details Date Type Department Care Team (Late st Contact Info) Description 03/19/2024 Orders Only [facility] [address] [place], [place] [phone] Angeline Klein MD [address] [place] [address] Mixed stress and urge urinary incontinence (Primary [...] as of this encounter Plan of Treatment Upcoming Encounters Date Type Department Care Team (Late st Contact Info) Description 07/14/2025 4:00 PM EST Telemedicine [facility] [address] [place] [address] Angeline Klein MD [address] [place] [phone] documented as of this encounter Visit Diagnoses Diagnosis Mixed stress and urge urinary incontinence- Primary Mixed incontinence urge and stress (male)(female) documented in this encounter Additional Health Concerns Assessment Noted Time PHQ-9 Depression Total Score: 4 12/26/19 24 10:32 AM EDT documented as of this encounter Care Teams Field Hand Relationship Specialty Start Date End Date Angeline Klein MD [address] [place] [id number] PCP - General Family Medicine 08/21/20 documented as of this encounter
--- OUTSIDE RECORDS SUMMARY | 2025-05-23 11:25 | XMS_ITS | Encounter Summary ---
Author Organization [employer] Address [address] [facility] 7t [place] [address] Care Team Providers Care Computer Engineering Technician Name Role Phone Angeline Klein MD Primary Care Provider [phone] Encounter Details Date Type Department Care Team (Late st Contact Info) Description 04/12/2024 Orders Only [facility] [address] [place] [address] Guadalupe Garrido MD [address] [place] [address] Social History Tobacco Use Types Packs/Day Years [...] Info) Description 07/14/2025 4:00 PM EST Telemedicine [facility] [address] [place] [phone] Angeline Klein MD [address] [place] [phone] documented as of this encounter Visit Diagnoses Not on filedocumented in this encounter Additional Health Concerns Assessment Noted Time PHQ-9 Depression Total Score: 4 12/26/19 24 10:32 AM EDT documented as of this encounter Care Teams Computer Engineering Technician Relationship Specialty Start Date End Date Angeline Klein MD [address] [place] [address] [phone] PCP - General Family Medicine 08/21/20 documented as of this encounter
--- OUTSIDE RECORDS SUMMARY | 2025-05-23 11:25 | XMS_ITS | Encounter Summary ---
Author Organization [employer] Address [address] [place] [address] [address] [place] [address] Care Team Providers Care Photogrammetric Surveyor Name Role Phone Angeline Klein MD Primary Care Provider [phone] Reason for Visit * Reason Onset Date Comments Appointment Request 05/22/2023 Encounter Details Date Type Department Care Team ([facility] st Contact Info) Description 05/22/2023 Telephone [facility] [address] [place] [address] Angeline Klein MD [address] [place] [address] Appointment Request Social History Tobacco Use Types [...] @ 2:30 pm. Please contact pt at [phone] documented in this encounter Plan of Treatment Upcoming Encounters Date Type Department Care Team (Late st Contact Info) Description 07/14/2025 4:00 PM EST Telemedicine [facility] [address] [place] [address] Angeline Klein MD [address] [place] [address] documented as of this encounter Visit Diagnoses Not on filedocumented in this encounter Care Teams Photogrammetric Surveyor Relationship Specialty Start Date End Date Angeline Klein MD [address] [place] [address] PCP - General Family Medicine 08/21/20 documented as of this encounter
--- OUTSIDE RECORDS SUMMARY | 2025-05-23 11:25 | XMS_ITS | Encounter Summary ---
Author Organization [employer] Address [address] [facility] [address] [place] [address] Care Team Providers Care Software Configuration Analyst Name Role Phone Angeline Klein MD Primary Care Provider [phone] Reason for Visit * Reason Onset Date Comments Referral 04/04/2023 Encounter Details Date Type Department Care Team ([facility] st Contact Info) Description 04/04/2023 Telephone [facility] [address] [place] [address] Angeline Klein MD [address] [place] [address] Referral Social History Tobacco Use Types Packs/Day [...] 11:18 AM EDT TC placed to pt [phone] in regards to below message however number is OOS. RN called pt's OPHELIA Larson [phone] who was able to confirm the pt DOES want to go to [facility] pain management. RN informed[facility] PCP would place referral today. OPHELIA Larson also provided RN w/ updated number for the pt ([phone]). RN has updated pt's chart. Please place referral to [facility] pain management. * Telephone Encounter - Mary Osorio - 04/04/2023 2:43 PM EDT Tc from kelly with [facility] requesting a new referral for pain management. documented in this encounter Plan of Treatment Upcoming Encounters Date Type Department Care Team (Late st Contact Info) Description 07/14/2025 4:00 PM EST Telemedicine [facility] [address] [place] [address] [phone] Angeline Klein MD [address] [place] [phone] documented as of this encounter Visit Diagnoses Not on filedocumented in this encounter Care Teams Software Configuration Analyst Relationship Specialty Start Date End Date Angeline Klein MD [address] [place] [address] [phone] PCP - General Family Medicine 08/21/20 documented as of this encounter
--- OUTSIDE RECORDS SUMMARY | 2025-05-23 11:25 | XMS_ITS | Clinical Summary ---
Author Organization [employer] Address [address] [facility] 7t [place] [address] Care Team Providers Care Fermentation Engineer Name Role Phone Angeline Klein MD Primary Care Provider [phone] Allergies Active Allergy Reactions Criticality Noted Date [...] dose amlodipine -needs VNA --request today to chief of staff doctor to start process for this. -pt on [...] Continue followup with oncology and urology at [facility] Has next biopsy planned for Aug 19, [address] Blair Assessment & Plan (12/26/2023 11:21 AM EDT): Continue followup with oncology and urology at [facility] Disease is spreading, will discuss therapeutic options with Dr Palacios tomorrow Assessment & Plan (05/01/2023 4:22 PM EDT): Continue followup with oncology and urology at [facility] No signs of infection or complication currently [...] scheduled MRI with patient, Dec 2 at [facility], so that she can proceed with treatment [...] Case has been discussed with ER at [facility]>. Encounters Date Type Department Care Team Description 05/08/2025 Telephone [facility] [address] [place] [address] Angeline Klein MD Nurse Triage 04/15/2025 Orders Only GENERIC EXTERNAL DATA DEPARTMENT Provider, Generic External Data 03/29/2025 Orders Only [facility] External Provider, [facility] from Last 3 Months Immunizations Immunization Administration Dates Next Due Influenza High-dose Quadrivalent [...] 83 11/29/2024 9:40 AM EDT Temperature 36.8 C (98.2 F) 11/29/2024 9:40 AM EDT Respiratory Rate 15 11/29/2024 9:40 AM EDT Oxygen Saturation 97% 11/29/2024 9:40 AM EDT Inhaled Oxygen Concentration - - Weight 48.5 kg (107 lb) 11/29/2024 9:40 AM EDT Height 162.6 cm (5' 4 ) 11/29/2024 9:40 AM EDT Body Mass Index 18.37 11/29/2024 9:40 AM EDT Plan of Treatment Upcoming Encounters Date Type Department Care Team (Late st Contact Info) Description 07/14/2025 4:00 PM EST Telemedicine [facility] [address] [place] [address] Angeline Klein MD [address] [place] [address] Health Maintenance Due Date Last Done Comments Zoster Vaccines (2 of 3) 12/19/2014 10/24/2014 DTaP/Tdap/Td Vaccines (2 - Td or Tdap) 10/02/2022 10/02/2012, 01/05/2011 Pneumococcal Vaccine: 50+ Years (2 of 2 - PCV) 12/14/2022 12/14/2021, 06/19/2014 Depression Screening 12/25/2024 12/26/2023, 12/26/19 24 COVID-19 Vaccine (2 - 2024- season) 2025 12/02/2020 Influenza Vaccine (#1) 2025 , 06/21/2018, 06/20/2017, Additional history exists SDOH Screening 11/29/2025 11/29/2024 Tobacco Screening 11/29/2025 [...] patient's age to complete this topic Meningococcal B Vaccine Aged Out No l onger eligible based on patient's age to complete [...] Diagnosis Comments IR NEPHROSTOMY TUBE CHANGE Routine 04/15/2025 1:00 PM EDT IR NEPHROSTOMY TUBE CHANGE Routine 04/15/2025 1:00 PM EDT PROTHROMBIN TIME-INR Routine 04/15/2025 12:24 PM EDT MR PELVIS W AND WO CONTRAST Routine 03/31/2025 3:[address] ABDOMEN PELVIS WO CONTRAST Routine 03/29/2025 10:54 AM EDT LIPID PANEL, STANDARD Routine 01/22/2021 9:15 AM EDT ZZZ HISTORICAL HEPATITIS A,B,C PROFILE Routine 08/22/2019 1:30 PM EST from Last 3 Months or Most Recently Relevant to Health Maintenance Results * IR Nephrostomy Tube Change (04/15/2025 1:00 PM EDT) Only the most recent of2 resultswithin the time period is included. Anatomical Region Laterality Modality Body X-Ray Angiograph y 04/15/2025 1:00 PM EDT Narrative 05/22/2025 10:04 AM EDT [address] [address] Interventional Radiology Rpt Signed Patient: Altaf Alba MR#: [id number] 260 : 1945 Acct:[id number] Age/Sex: 79 / F ADM Date: 04/15/25 Loc: HO.SSS Attending Dr: Severo Blair MD Ordering Physician: Severo Blair MD Date of Service: 04/15/25 Procedure(s): IR nephrostomy tube change Accession Number(s): [id number] cc: Severo Blair MD; Angeline Klein Reason for Exam: BILAT NEPH TUBE EXCHANGE EXAMINATION: XR NEPHROSTOMY TUBE CHANGE, Bilateral CLINICAL INFORMATION: FLUOROSCOPIC BILATERAL SIDED NEPHROSTOMY TUBE EXCHANGE History: Patient with bilateral nephrostomy tubes due to bladder cancer and ureteral obstruction. Patient presents for three-month maintenance change. Procedure: Patient was informed and consented to the procedure. The patient's back was prepped and draped in routine sterile fashion. 1% buffered lidocaine was used as anesthetic around the insertion site. The catheter left was cut and an stiff guidewire was placed through the tube and coiled into the renal pelvis. The old catheter was removed and over the wire. A new 8 Argentine locking pigtail catheter was advanced over the wire. The wire was removed. 1% buffered lidocaine was used as anesthetic around the insertion site. The catheter left was cut and an stiff guidewire was placed through the tube and coiled into the renal pelvis. The old catheter was removed and over the wire. A new 8 Argentine locking pigtail catheter was advanced over the wire. The wire was removed. 5 mL of contrast was injected to ensure proper positioning of each catheter in the renal pelvis. A 3-0 Ethilon suture was used to secure the catheters to the skin. A sterile dressing was applied. Total fluoroscopy time was 3.0. IR/IR nephrostomy tube change IMPRESSION: Bilateral Nephrostomy tube exchange This procedure performed by David Sheehan NP, and supervised by Dr. Jeff Chavarria MD Electronically signed by: Molina Chavarria MD 04/16/2025 05:52 PM EDT Dictated By: David Sheehan NP Signed By: <Electronically signed by David Sheehan in OV> 05/22/25 1003 <Electronically signed by Molina Chavarria MD in OV> 05/22/25 1003 DD/ 1300 TD/TT: 04/15/25 1503 Property Claims Adjuster: Procedure Note Donotuseinterpreter, Image - 05/22/2025 [place] [address] Interventional Radiology Rpt Signed Patient: Altaf AlbaMR#: [id number] 260 : 6Acct:[id number] Age/Sex: 79 / FADM Date: 04/15/25 Loc: [facility] Attending Dr: Severo Blair MD Ordering Physician: Severo Blair MD Date of Service: 04/15/25 Procedure(s): IR nephrostomy tube change Accession Number(s): [id number] cc: Severo Blair MD; Angeline Klein Reason for Exam: BILAT NEPH TUBE EXCHANGE EXAMINATION: XR NEPHROSTOMY TUBE CHANGE, Bilateral CLINICAL INFORMATION: FLUOROSCOPIC BILATERAL SIDED NEPHROSTOMY TUBE EXCHANGE History: Patient with bilateral nephrostomy tubes due to bladder cancer and ureteral obstruction. Patient presents for three-month maintenance change. Procedure: Patient was informed and consented to the procedure. The patient's back was prepped and draped in routine sterile fashion. 1% buffered lidocaine was used as anesthetic around the insertion site. The catheter left was cut and an stiff guidewire was placed through the tube and coiled into the renal pelvis. The old catheter was removed and over the wire. A new 8 Argentine locking pigtail catheter was advanced over the wire. The wire was removed. 1% buffered lidocaine was used as anesthetic around the insertion site. The catheter left was cut and an stiff guidewire was placed through the tube and coiled into the renal pelvis. The old catheter was removed and over the wire. A new 8 Argentine locking pigtail catheter was advanced over the wire. The wire was removed. 5 mL of contrast was injected to ensure proper positioning of each catheter in the renal pelvis. A 3-0 Ethilon suture was used to secure the catheters to the skin. A sterile dressing was applied. Total fluoroscopy time was 3.0. IR/IR nephrostomy tube change IMPRESSION: Bilateral Nephrostomy tube exchange This procedure performed by David Sheehan NP, and supervised by Dr. Jeff Chavarria MD Electronically signed by: Molina Chavarria MD 04/16/2025 05:52 PM EDT RP Dictated By: David Sheehan NP Signed By: <Electronically signed by David Sheehan in OV> 05/22/25 1003 <Electronically signed by Molina Chavarria MD in OV> 05/22/25 1003 DD/ 1300 TD/TT: 04/15/25 1503 Property Claims Adjuster: [facility] External Provider IMG IR PROCEDURES Final Result * Prothrombin Time-INR (04/15/2025 12:24 PM EDT) Prothrombin Time 11.3 10.9 - 12.4 SEC [facility] INTERNATIONAL NORM RATIO 1.0 0.9 - 1.1 [facility] Comment:INTERNATIONAL NORMAL IZED RATIO (INR) REFERENCE RANGES Reference RangeFor patients not on anticoagulant therapy: 0.9 - 1.1INR ranges for oral anticoagulanttherapy:For prevention and treatment of venous thrombosis and pulmonary embolism: 2.0 - 3.0For acute myocardial infarction with aspirin therapy: 2.0 - 3.0For acute myocardial infarction without aspirin therapy: 3.0 - 4.0For patients with mechanical prosthetic heart valves: 2.5 - 3.5 04/15/2025 12:2 4 PM EDT 04/15/2025 12:26 PM EDT Generic External Data Provider LAB BLOOD ORDERAB LES Final Result Performing Organization Address City/State/[facility] Co de Phone Number [facility] [address] [place] [phone] * MR Pelvis w/ and w/o Contrast (03/31/2025 3:14 PM EDT) Anatomical Region Laterality Modality Body, Pelvis Magnetic Resonan ce 03/31/2025 3:14 PM EDT Narrative 04/01/2025 7:23 AM EDT [address] [address] Magnetic Resonance Report Signed Patient: Altaf Alba MR#: [id number] 260 : 1945 Acct:[id number] Age/Sex: 79 / F ADM Date: 03/31/25 Loc: HO.MRI Attending Dr: Destiney Palacios MD Ordering Physician: Destiney Palacios MD Date of Service: 03/31/25 Procedure(s): MR pelvis wo/w con Accession Number(s): [id number] cc: Destiney Palacios MD; Angeline Klein EXAMINATION: MR PELVIS WITHOUT THEN WITH IV CONTRAST HISTORY: Bladder cancer, new vaginal bleeding,? Fistula. TECHNIQUE: Axial T1, fat-suppressed T1, and fat suppressed T2, and sagittal and coronal T2-weighted MR images of the pelvis were obtained. Subsequently, sagittal and axial fat-suppressed T1-weighted images were obtained after the intravenous administration of 4.5 mL Gadavist. COMPARISON: Correlation is made with an unenhanced CT of the pelvis dated 03/29/2025. FINDINGS: There is marked irregular wall thickening of the apex of the bladder with additional soft tissue extending along the course of the urethra. No fat plane is seen between this abnormal soft tissue in the anterior wall of the vagina. Gas is seen in the vagina. While a direct communication between the urinary bladder and the vagina is not identified, a fistula is not excluded. There is a fluid/fluid level in the urinary bladder. The patient is status post hysterectomy. There are enlarged lymph nodes in the retroperitoneum at the level of the renal emerson as noted on CT. There is no ascites in the pelvis. There is moderate levoscoliosis and degenerative disc disease of the spine. MR/MR pelvis wo/w con IMPRESSION: Marked irregular wall thickening of the apex of the urinary bladder extending along the urethra and involving the posterior wall of the vagina, consistent with the patient's known history of bladder cancer. A fistula between the urinary bladder and vagina cannot be excluded on the basis of this examination. Electronically signed by: Bennett Alejandro MD 04/01/2025 07:20 AM EDT Dictated By: Bennett Alejandro MD Signed By: <Electronically signed by Bennett Alejandro MD in OV> 04/01/25 0720 DD/ 1514 TD/TT: 03/31/25 1543 Property Claims Adjuster: Procedure Note Donotuseinterpreter, Image - 04/01/[address] [address] Magnetic Resonance Report Signed Patient: Altaf AlbaMR#: [id number] 260 : 1945cct:[id number] Age/Sex: 79 / FADM Date: 03/31/25 Loc: HO.MRI Attending Dr: Destiney Palacios MD Ordering Physician: Destiney Palacios MD Date of Service: 03/31/25 Procedure(s): MR pelvis wo/w con Accession Number(s): [id number] cc: Destiney Palacios MD; Angeline Klein EXAMINATION: MR PELVIS WITHOUT THEN WITH IV CONTRAST HISTORY: Bladder cancer, new vaginal bleeding,? Fistula. TECHNIQUE: Axial T1, fat-suppressed T1, and fat suppressed T2, and sagittal and coronal T2-weighted MR images of the pelvis were obtained. Subsequently, sagittal and axial fat-suppressed T1-weighted images were obtained after the intravenous administration of 4.5 mL Gadavist. COMPARISON: Correlation is made with an unenhanced CT of the pelvis dated 03/29/2025. FINDINGS: There is marked irregular wall thickening of the apex of the bladder with additional soft tissue extending along the course of the urethra. No fat plane is seen between this abnormal soft tissue in the anterior wall of the vagina. Gas is seen in the vagina. While a direct communication between the urinary bladder and the vagina is not identified, a fistula is not excluded. There is a fluid/fluid level in the urinary bladder. The patient is status post hysterectomy. There are enlarged lymph nodes in the retroperitoneum at the level of the renal emerson as noted on CT. There is no ascites in the pelvis. There is moderate levoscoliosis and degenerative disc disease of the spine. MR/MR pelvis wo/w con IMPRESSION: Marked irregular wall thickening of the apex of the urinary bladder extending along the urethra and involving the posterior wall of the vagina, consistent with the patient's known history of bladder cancer. A fistula between the urinary bladder and vagina cannot be excluded on the basis of this examination. Electronically signed by: Bennett Alejanrdo MD 04/01/2025 07:20 AM EDT RP Dictated By: Bennett Alejandro MD Signed By: <Electronically signed by Bennett Alejandro MD in OV> 04/01/25 0720 DD/ 1514 TD/TT: 03/31/25 1543 Property Claims Adjuster: [facility] External Provider IMG MRI PROCEDURES Final Result * CT Abdomen Pelvis w/o Contrast (03/29/2025 10:54 AM EDT) Anatomical Region Laterality Modality Body, Pelvis, Abdomen Computed T omography 03/29/2025 10:5 4 AM EDT Narrative 03/29/2025 10:56 AM EDT [place] [address] CT Scan Report Signed Patient: Altaf Alba MR#: [id number] 260 : 1945 Acct:[id number] Age/Sex: 79 / F ADM Date: 03/29/25 Loc: HO.CT Attending Dr: Destiney Palacios MD Ordering Physician: Kate Her NP Date of Service: 03/29/25 Procedure(s): CT abdomen pelvis wo IV con Accession Number(s): [id number] cc: Destiney Palacios MD; Angeline Klein; Kate Her NP Report Number: [id number]: Total DLP = 256.00 mGy-cm CLINICAL HISTORY: [...] 03/29/25 1055 DD/ 1054 TD/TT: 03/29/25 1054 Property Claims Adjuster: Procedure Note Donotuseinterpreter, Image - 03/29/[address] [address] [address] Scan Report Signed Patient: Altaf Alba#: [id number] 260 : 6Acct:[id number] Age/Sex: 79 / FADM Date: 03/29/25 Loc: HO.CT Attending Dr: Destiney Palacios MD Ordering Physician: Kate Her NP Date of Service: 03/29/25 Procedure(s): CT abdomen pelvis wo IV con Accession Number(s): [id number] cc: Destiney Palacios MD; Angeline Klein; Kate Her NP Report Number: [id number]: Total DLP = 256.00 mGy-cm CLINICAL HISTORY: [...] 03/29/25 1055 DD/ 1054 TD/TT: 03/29/25 1054 Property Claims Adjuster: [facility] External Provider IMG CT PROCEDURES Edited Result - Final * LIPID PANEL, STANDARD (01/22/2021 9:15 AM EDT) Pathologist [facility] Chol/HDLC Ratio 2.8 <5.0 (calc) [facility] Cholesterol, Total 179 <200 mg/dL [facility] HDL Cholesterol 63 > OR = 50 mg/dL [facility] LDL Cholesterol 95 mg/dL (calc) [facility] Comment: Reference range: <100 Desirable range <100 mg/dL for primary prevention; <70 mg/dL for patients with CHD or diabetic patients with > or = 2 CHD risk factors. LDL-C is now calculated using the Nano calculation, which is a validated novel method providing better accuracy than the Friedewald equation in the estimation of LDL-C. Timoteo SS et al. SHARYN. 2013;310(19): 6855-3433 (http://education.Maimai/faq/DLU283) Non-HDL Cholesterol 116 <130 mg/dL (calc) [facility] Comment: For patients with diabetes plus 1 major ASCVD risk factor, treating to a non-HDL-C goal of <100 mg/dL (LDL-C of <70 mg/dL) is considered a therapeutic option. Triglycerides 116 <150 mg/dL [facility] 01/22/2021 9:15 AM EDT Angeline Klein MD LAB BLOOD ORDERABLES Final Res ult [facility] [address] * HEPATITIS A,B,C PROFILE (08/22/2019 1:30 PM EST) Pathologist [facility] HEPATITIS B CORE ANTIBODY NONREACTIVE NONREACTIVE [facility] HEPATITIS B INTERPRETATION SEE NOTE [facility] Comment:Negative for Hepatit is B. HEPATITIS B SURFACE ANTIBODY NONREACTIVE NONREACTIVE [facility] Comment:NONREACTIVE: < 8.00 mIU/mL HEPATITIS B SURFACE ANTIGEN NEGATIVE NEGATIVE [facility] HEPATITIS C ANTIBODY NONREACTIVE NONREACTIVE [facility] Comment: Antibodies to HCV not detected; does not exclude early acute HCV infection. 08/22/2019 1:30 PM EST us Historical Provider HISTORICAL/NON ORDERABLE LABS Final Result [facility] [address] [place] [address], from Last 3 Months or Most Recently Relevant to Health Maintenance Insurance [facility] [employer] OPTIONS (HMO D-SNP) Care Teams Fermentation Engineer Relationship Specialty Start Date End Date Angeline Klein MD [address] [place], [place] PCP - General Family Medicine 08/21/20
--- OUTSIDE RECORDS SUMMARY | 2025-05-23 11:25 | XMS_ITS | Continuity of Care Document ---
Author Name [employer], Medical Address [address] [place] [address] Organization Unknown Address [address] [place] [address] Medications No known medications Problems No known problems
--- OUTSIDE RECORDS SUMMARY | 2025-05-23 11:25 | XMS_ITS | Encounter Summary ---
Author Organization [employer] Address [address] [facility] 7t [place] [address] Care Team Providers Care Thermite Welder Name Role Phone Angeline Klein MD Primary Care Provider [phone] Encounter Details Date Type Department Care Team (Late Contact Info) Description 09/23/2022 Telephone [facility] MEDICINE [address] [place] [address] [phone] Angeline Klein MD [address] [place] [address] [phone] Social History Tobacco Use Types Packs/Day Years [...] Upcoming Encounters Date Type Department Care Team ([facility] Contact Info) Description 07/14/2025 4:00 PM EST Telemedicine [facility] [address] [place] [address] [phone] Angeline Klein MD [address] [place] [address] [phone] documented as of this encounter Visit Diagnoses Not on filedocumented in this encounter Care Teams Thermite Welder Relationship Specialty Start Date End Date Angeline Klein MD [address] [place] [address] PCP - General Family Medicine 08/21/20 documented as of this encounter
--- OUTSIDE RECORDS SUMMARY | 2025-05-23 11:25 | XMS_ITS | Encounter Summary ---
Author Organization [employer] Address [address] [place] [address] 7t [place] [address] Care Team Providers Care Bowling Ball Engraver Name Role Phone Angeline Klein MD Primary Care Provider [phone] Encounter Details Date Type Department Care Team (Late st Contact Info) Description 08/01/2022 Abstract [facility] MEDICINE [address] [place] [phone] Angeline Klein MD [address] [place] [address] Social History Tobacco Use Types Packs/Day Years [...] Info) Description 07/14/2025 4:00 PM EST Telemedicine [facility] [address] [place] [phone] Angeline Klein MD [address] [place] [address] documented as of this encounter Visit Diagnoses Not on filedocumented in this encounter Care Teams Bowling Ball Engraver Relationship Specialty Start Date End Date Angeline Klein MD [address] [place] [phone] PCP - General Family Medicine 08/21/20 documented as of this encounter
--- OUTSIDE RECORDS SUMMARY | 2025-05-23 11:25 | XMS_ITS | Clinical Summary ---
Author Organization [facility] Address [address] [address] Care Team Providers Care Intertype Operator Name Role Phone Unavailable Primary Care [...]
--- OUTSIDE RECORDS SUMMARY | 2025-05-23 11:25 | XMS_ITS | Encounter Summary ---
Author Organization [employer] Address [address] [place] [address] 7t [place] [address] Care Team Providers Care Security Installation Sales Technician Name Role Phone Angeline Klein MD Primary Care Provider [phone] Encounter Details Date Type Department Care Team (Late Contact Info) Description 02/01/2023 Abstract [facility]INE [address] [place] [address] [phone] Angeline Klein MD [address] [place] [phone] Social History Tobacco Use Types Packs/Day Years [...] Encounters Date Type Department Care Team (Late Contact Info) Description 07/14/2025 4:00 PM EST Telemedicine [facility] [address] [place] [phone] Angeline Klein MD [address] [place] [address] [phone] documented as of this encounter Visit Diagnoses Not on filedocumented in this encounter Care Teams Security Installation Sales Technician Relationship Specialty Start Date End Date Angeline Klein MD [address] [place] [phone] PCP - General Family Medicine 08/21/20 documented as of this encounter
--- OUTSIDE RECORDS SUMMARY | 2025-05-23 11:25 | XMS_ITS | Clinical Summary ---
Author Organization [facility] Address [address] [place] [phone] Phone Care Team Providers Care Bulk Mail Clerk Name Role Phone Unavailable Primary Care Provider [...] It is not the complete legal health record.[facility]
--- OUTSIDE RECORDS SUMMARY | 2025-05-23 11:25 | XMS_ITS | Encounter Summary ---
Author Organization [employer] Address [address] [facility] 7t [place] [address] Care Team Providers Care Cold Press Operator Name Role Phone Angeline Klein MD Primary Care Provider Reason for Visit * Reason Onset Date Comments Nurse Triage 03/29/2024 Encounter Details Date Type Department Care Team ([facility] st Contact Info) Description 03/29/2024 Telephone [facility] [address] [place] [address] Angeline Klein MD [address] [place] [address] Nurse Triage Social History Tobacco Use Types [...] 03/29/2024 3:15 PM EDT Triage call with [place] Production Packager ID [id number] Pt reports fatigue for last 3 days. [...] Reason: Caller denied all higher acuity questions Bulgarian Speaker (Accepted Production Packager) documented in this encounter Plan of Treatment Upcoming Encounters Date Type Department Care Team (Late st Contact Info) Description 07/14/2025 4:00 PM EST Telemedicine [facility] MED[facility] [address] [place] [address] Angeline Klein MD [address] [place] [address] documented as of this encounter Visit Diagnoses Not on filedocumented in this encounter Additional Health Concerns Assessment Noted Time PHQ-9 Depression Total Score: 4 12/26/19 24 10:32 AM EDT documented as of this encounter Care Teams Cold Press Operator Relationship Specialty Start Date End Date Angeline Klein MD [address] [place], [place] [phone] PCP - General Family Medicine 08/21/20 documented as of this encounter
--- OUTSIDE RECORDS SUMMARY | 2025-05-23 11:25 | XMS_ITS | Encounter Summary ---
Author Organization [employer] Address [address] [facility] 7t [place] [address] Care Team Providers Care Furniture Salesperson Name Role Phone Angeline Klein MD Primary Care Provider [phone] Encounter Details Date Type Department Care Team (Late st Contact Info) Description 05/10/2024 Orders Only [facility] [address] [place], [place] [phone] Angeline Klein MD 230 [place] [address] Oral thrush (Primary Dx) Social History Tobacco [...] 4:00 PM EST Telemedicine [facility] [address] [place] [phone] Angeline Klein MD [address] [place] [address] documented as of this encounter Visit Diagnoses Diagnosis Oral thrush- Primary Candidiasis of mouth documented in this encounter Additional Health Concerns Assessment Noted Time PHQ-9 Depression Total Score: 4 12/26/19 24 10:32 AM EDT documented as of this encounter Care Teams Furniture Salesperson Relationship Specialty Start Date End Date Angeline Klein MD [address] [place] [phone] PCP - General Family Medicine 08/21/20 documented as of this encounter
--- OUTSIDE RECORDS SUMMARY | 2025-05-23 11:25 | XMS_ITS | Encounter Summary ---
Author Organization [employer] Address 75 [facility] 7t [place] [address] Care Team Providers Care Material Processor Name Role Phone Angeline Klein MD Primary Care Provider [phone] Encounter Details Date Type Department Care Team (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
--- OUTSIDE RECORDS SUMMARY | 2025-05-23 11:25 | XMS_ITS | Encounter Summary ---
Author Organization [email or web address] Address 75 [facility] 7t [place] [address] Care Team Providers Care Electronic Field Service Engineer Name Role Phone Angeline Klein MD Primary Care Provider [phone] Encounter Details Date Type Department Care Team (Late st Contact Info) Description 04/05/2023 Orders Only [facility] [address] [place] [address] [phone] Angeline Klein MD [address] [place] [address] [phone] Primary osteoarthritis of both hips (Primary Dx); [...] Info) Description 07/14/2025 4:00 PM EST Telemedicine [facility] [address] [place] [address] [phone] Angeline Klein MD [address] [place] [address] [phone] documented as of this encounter Visit Diagnoses Diagnosis Primary osteoarthritis of both hips- Primary 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
--- OUTSIDE RECORDS SUMMARY | 2025-05-23 11:25 | XMS_ITS | Encounter Summary ---
Author Organization [employer] Address 75 [facility] 7t [place] [address] Care Team Providers Care Supervisor Fiberglass Boat Assembly Name Role Phone Angeline Klein MD Primary Care Provider Reason for Visit * Reason Onset Date Comments Med Refill 12/20/2024 Encounter Details Date Type Department Care Team ([facility] st Contact Info) Description 12/20/2024 Telephone [facility] [address] [place] [address] Angeline Klein MD 230 [place] [address] Med Refill Social History Tobacco Use Types [...] the past 12 months, has t he [employer], gas, oil or water company threatened to [...] 25 MG tablet To be sent to: [id number] - [place] - [address] [facility] documented in this encounter Plan of Treatment Upcoming Encounters Date Type Department Care Team (Late st Contact Info) Description 07/14/2025 4:00 PM EST Telemedicine [facility] 230 [place] [address] Angeline Klein MD 230 [place], [place] [phone] documented as of this encounter Visit Diagnoses Not on filedocumented in this encounter Additional Health Concerns Assessment Noted Time PHQ-9 Depression Total Score: 4 12/26/19 24 10:32 AM EDT documented as of this encounter Care Teams Supervisor [employer]lass Boat Assembly Relationship Specialty Start Date End Date Angeline Klein MD 230 [place] [address] PCP - General Family Medicine 08/21/20 documented as of this encounter
== END 2025-05-23 12:35 | disposition home or self-care (01) ==
LOC: HO.HGI 10:04
PROVIDERS: PCP General Practice; Visit Provider Nurse Practitioner
DX: K21.9 Gastro-esophageal reflux disease without esophagitis (principal); K59.04 Chronic idiopathic constipation; K64.8 Other hemorrhoids
CPT/HCPCS: 99213

== ENCOUNTER → 2025-05-23 10:03 | Outpatient (BNVA) | payer OTHER, SELFPAY | PROVIDERS: PCP General Practice; Visit Provider Nurse Practitioner | DX: K21.9 Gastro-esophageal reflux disease without esophagitis (principal); K59.04 Chronic idiopathic constipation; K64.8 Other hemorrhoids | CPT/HCPCS: 99212 ==

== ENCOUNTER 2025-05-29 14:29 | Emergency (ER) | payer OTHER, SELFPAY ==
[2025-05-29] VITALS (7 sets, daily range): BP systolic 113–139; BP diastolic 53–69; PULSE 72–91; RESP 14–16; TEMP 36.7–36.8; O2SAT 95–100; BMI 18.0
--- NOTE | ~2025-05-29 | IR_ITS ---
EXAMINATION: XR NEPHROSTOMY TUBE REPLACEMENT, left CLINICAL INFORMATION: FLUOROSCOPIC LEFT SIDED NEPHROSTOMY TUBE REPLACEMENT History: Patient with bilateral nephrostomy tubes due to bladder cancer and ureteral obstruction. Patient presents for replacement of left-sided nephrostomy tube that fell out. Procedure: Patient was informed and consented to the procedure. The patient's back was prepped and draped in routine sterile fashion. 1% buffered lidocaine was used as anesthetic around the insertion site. A 0.018 guidewire was inserted into the pre-existing tract. A new 8 Arabic locking pigtail catheter was advanced over the wire. The wire was removed. 5 mL of contrast was injected to ensure proper positioning of the catheter in the renal pelvis. A 3-0 Ethilon suture was used to secure the catheters to the skin. A bag was attached and draining urine by gravity. A sterile dressing was applied. The patient tolerated the procedure well. The patient will be transferred to the postanesthesia care unit. The patient was continuously monitored by a dedicated nurse including their vital signs. Total fluoroscopy time was 0.8. Medications: Lidocaine 1% jelly and subcutaneously IR/IR nephrostomy via cath IMPRESSION: Successful replacement of left-sided Nephrostomy tube This procedure performed by David Sheehan NP, and supervised by Sesar Casarez M.D. Electronically signed by: Sesar Casarez MD 06/03/2025 05:07 PM EDT Workstation: [id number]
--- NOTE | 2025-05-29 14:52 | ED_ITS ---
HPI - General Adult General Chief complaint: Urogenital-Female Stated complaint: cath issue Time Seen by Provider: 05/29/25 15:24 Source: patient and RN notes reviewed Mode of arrival: ambulatory Limitations: no limitations History of Present Illness ED Provider: Wen Belle PA-C HPI narrative: This is a 79-year-old female with past medical history GERD, HLD, HTN, asthma, high-grade bladder CA s/p TURBT currently on chemotherapy, s/p bilateral nephrostomy tube placement on 01/15/2024. Reports that every 3 months she has a catheter change, reports that today she was washing her hands and felt it fall out this morning. Patient has a nephrostomy catheter on the left. She is feeling well, no current complaints. No fevers or chills. No other complaints or concerns at this time. MD complaint: Nephrostomy tube replacement Related Data Home Medications ?Medication ?Instructions ?Recorded ?Confirmed pravastatin 40 mg tablet 40 mg PO DAILY 12/28/2203/12 Previous Rx's ?Medication ?Instructions ?Recorded tramadol 50 mg tablet 50 mg PO Q12H PRN Breakthrou gh 09/13/24 Pain, Moderate #60 tabs ondansetron 8 mg disintegrating 8 mg PO Q8H PRN Nausea #30 tabs 12/11/24 tablet hydroxyzine HCl 25 mg tablet 25 mg PO TID PRN itchines s 12/23/24 linaclotide 145 mcg capsule 145 mcg PO QAM 90 days #90 caps 01/29/25 (Linzess) Held on 04/30/25. Instructions: Doctor's Order omeprazole 40 mg capsule,delayed 40 mg PO DAILY 90 day s #90 caps 01/29/25 release albuterol sulfate 90 mcg/actuation 2 puff PO Q4-6H PRN for wheezing 03/19/25 aerosol inhaler #1 ea linaclotide 290 mcg capsule 290 mcg PO QAM 90 days #90 caps 04/30/25 (Linzess) fluticasone propionate 110 1 puff PO BID #12 grams 07/05 mcg/actuation HFA aerosol inhaler ipratropium 20 mcg-albuterol 100 1 puff inhalation Q6H #4 grams 05/22/25 mcg/actuation mist for inhalation (Combivent Respimat) estradiol 0.01% (0.1 mg/gram) 1 g vaginal 3XW 30 days #42.5 grams 05/28/25 vaginal cream miconazole nitrate 2 % vaginal 1 appful vaginal BEDTIM E 7 days 05/28/25 cream (Miconazole-7) #45 grams Allergies Allergy/AdvReac Type Severity Reaction Status Date / Time shrimp Allergy Severe Hives Verified 05/29/25 14:55 aspirin (ASA) Allergy Intermediate RASH Verified 05/29/25 14:55 ibuprofen (Ibuprofen) Allergy Intermediate RASH Verified 05/29/25 14:55 morphine (MORPHINE) Allergy Intermediate ITCHING Verified 05/29/25 14:55 naproxen (From NAPROSYN) Allergy Intermediate RASH,N/V Verified 05/29/25 14:55 oxycodone (OXYCODONE) Allergy Intermediate NAUSEA & Verified 05/29/25 14:55 VOMITING, RASH sulfamethoxazole (From AdvReac Severe Abdominal Verified 05/29/25 14:55 Bactrim) Pain trimethoprim (From Bactrim) AdvReac Severe Abdominal Verified 05/29/25 14:55 Pain Review of Systems Review of Systems: Constitutional : No Fever, No Chills ENT/Mouth : No sore throat, No Rhinorrhea Eyes: No Eye Pain, No Swelling, No Redness Cardiovascular : No Chest Pain, No SOB Respiratory : No Cough, No Sputum Gastrointestinal : No Nausea, No Vomiting, No Diarrhea, No abdominal Pain Genitourinary : No Dysuria, No Hematuria Musculoskeletal : No joint pain, No Myalgias, No Joint Swelling Skin : No Skin Lesions= Neuro : No Weakness, No Numbness, No Headache All other systems reviewed and are negative Yes all other systems are reviewed and are negative Eyes: Eyes: Reports as per [facility] Past Medical History Medical History COPD (chronic obstructive pulmonary disease) Port-A-Cath in place Back pain Spinal stenosis Osteoarthritis of right shoulder Bladder cancer Chronic pain syndrome Encounter for preoperative pulmonary examination Levoscoliosis of lumbar spine Lumbar degenerative disc disease NADEEN (acute kidney injury) Encounter for preoperative pulmonary examination Hydronephrosis Osteoarthritis GERD (gastroesophageal reflux disease) Candidal urinary tract infection Malignant neoplasm of bladder neck Vaginal mass COVID-19 Emphysema lung Hyperlipidemia Hypertension Asthma Sepsis Bladder mass Hematuria H/O primary malignant neoplasm of urinary bladder Hemorrhoids with complication Vaginal pain Back pain Recurrent cough Dysuria Primary osteoarthritis, left shoulder Small intestinal bacterial overgrowth Bronchitis Abdominal cramping Hemorrhoids with complication Right-sided ischial pain Cough Moderate persistent allergic asthma Trochanteric bursitis, right hip UTI (urinary tract infection) Malignant neoplasm of urinary bladder Nausea and vomiting Low back pain due to bilateral sciatica Tendonitis of left rotator cuff Trochanteric bursitis of left hip Surgical History History of surgery History of ERCP Hx laparoscopic cholecystectomy Hx of cystoscopy History of hysterectomy with bilateral oophorectomy Hx of colonoscopy (01/17/19) History of esophagogastroduodenoscopy (EGD) Family History Family History Father No problems noted. Mother Diabetes Brother Lung cancer Daughter Diabetes Social History Social History Household Members: Spouse Housing: Apartment Are you a primary chronic care nurse to a significant other at home: No Do you presently have visiting nurse or other home services: No Alcohol intake: never Patient Tobacco Use Status: Former Tobacco user Tobacco use type: Cigarette Years Smoked: 55 Smoked in Last 30 Days: No Use of substances other than those prescribed or required for medical reasons: No Advance Directives: No Advance Directives Information Provided: Yes service: No Current occupational status: retired Current occupation: rt handed Physical Exam ED Exam Exam: General: Awake, alert, and oriented X3. No acute distress. HEENT: Normal inspection CVS: Normal heart rate and rhythm. Pulses normal. Respiratory: No respiratory distress Abdomen: Abdomen is soft, nontender, nondistended, nephrostomy catheter no longer on the left Skin: Warm, dry, no rashes noted to exposed skin. Normal skin color. Normal skin turgor. Extremities: Normal to inspection Neuro: Oriented X 3. No motor deficit. No sensory deficit. Vital Signs: BMI result Body Mass Index 18.0 Course Course Course Narrative: This is an RME: Additional HPI, ROS, PE not included below will be deferred to primary provider. RME assessment and note performed by: Wen Belle PA-C Plan: Reached out to IR to see if they can add patient to schedule for replacement Medications Administered Discontinued Medications Generic Name Dose Route Start Last Admin Trade Name Paoloq PRN Reason Stop Dose Admin Heparin Sodium (Porcine) 500 0 unit 05/29/25 17:57 05/29/25 18:12 unit/ Sodium Chloride 5 ml IVFLUSH 05/29/25 17:58 1 unit ONCE ONE Administration Medical Decision Making Medical Decision Making MDM Narrative: This is a 79-year-old female who presents emergency department with concerns of left nephrostomy catheter needing replacement. On arrival, vital signs within normal limits. She is speaking full sentences under no acute distress. Contacted Interventional Radiology who were able to replace this. Patient tolerated procedure well without any complications or concerns. No complications or concerns. Patient returns back from Interventional Radiology, she has no chest pain, shortness of breath, vital signs within normal limits. Given strict return precautions, she understands and agrees with plan. Urged the importance of following up with kidney specialist, she will call tomorrow to make an appointment. Patient stable for discharge. Differential Diagnosis Differential Diagnoses: The differential diagnosis associated with the presentation includes Nephrostomy catheter change, blockage, malfunction, replacement Consult Healthcare Provider Management of the patient was discussed with: Research Biologist Interventional Radiology - David Sheehan, MICHELLE Discharge Plan Discharge Clinical Impression: Displacement of nephrostomy tube Patient Disposition: Home, Self-Care Additional Instructions: You were seen in the ER due to a displaced nephrostomy catheter. Interventional Radiology was able to replace this. Please follow-up with your kidney specialist in urologist regarding this visit. If any new or worsening symptoms including but not limited to chest pain, shortness of breath, severe pain in the area, please seek emergent care. Prescriptions: No Action hydroxyzine HCl 25 mg tablet 25 mg PO TID PRN (Reason: itchiness) 0RF albuterol sulfate 90 mcg/actuation HFA aerosol inhaler 2 puff PO Q4-6H PRN (Reason: for wheezing) Qty: 1 6RF fluticasone propionate 110 mcg/actuation HFA aerosol inhaler 1 puff PO BID Qty: 12 0RF Combivent Respimat 20-100 mcg/actuation mist 1 puff inhalation Q6H Qty: 4 6RF miconazole nitrate [Miconazole-7] 2 % cream 1 appful vaginal BEDTIME 7 Days Qty: 45 0RF estradiol 0.01 % (0.1 mg/gram) cream 1 g vaginal 3XW 30 Days Qty: 42.5 0RF tramadol 50 mg Tablet 50 mg PO Q12H PRN (Reason: Breakthrough Pain, Moderate) Qty: 60 0RF ondansetron 8 mg Tablet,Disintegrating 8 mg PO Q8H PRN (Reason: Nausea) Qty: 30 3RF pravastatin 40 mg tablet 40 mg PO DAILY Linzess 145 mcg capsule 145 mcg PO QAM 90 Days Qty: 90 1RF Rx Instructions: Take first thing in the morning with a full glass of water. omeprazole 40 mg capsule,delayed release(DR/EC) 40 mg PO DAILY 90 Days Qty: 90 1RF Linzess 290 mcg capsule 290 mcg PO QAM 90 Days Qty: 90 1RF Interventions: ED Discharge Assessment Last Done: 05/29/25 18:27 Discharge Date/Time: 05/29/25 18:28 Print Language: Luxembourger
--- NOTE | 2025-05-29 16:26 | PC.NURSE ---
port accessed per request of IR, vss, pt to go to IR for procedure and will come back to the ED post nephrostomy tube re-insert
--- NOTE | 2025-05-29 16:30 | PC.NURSE ---
pt to IR
--- OUTSIDE RECORDS SUMMARY | 2025-05-29 16:54 | XMS_ITS | Encounter Summary ---
Author Organization [employer] Address 75 [facility] 7t [place] [address] Care Team Providers Care Dewatering Filtering Supervisor Name Role Phone Angeline Klein MD Primary Care Provider Reason for Visit * Reason Onset Date Comments Referral 04/04/2023 Encounter Details Date Type Department Care Team ([facility] st Contact Info) Description 04/04/2023 Telephone [facility] [address] [place] [address] Angeline Klein MD 230 [place] [address] Referral Social History Tobacco Use Types Packs/Day [...] 11:18 AM EDT TC placed to pt [phone] in regards to below message however number is OOS. RN called pt's OPHELIA Larson [phone] who was able to confirm the pt DOES want to go to [facility] pain management. RN informed[facility] PCP would place referral today. OPHELIA Larson also provided RN w/ updated number for the pt ([phone]). RN has updated pt's chart. Please place referral to [facility] pain management. * Telephone Encounter - Mary Osorio - 04/04/2023 2:43 PM EDT Tc from kelly with [facility] requesting a new referral for pain management. documented in this encounter Plan of Treatment Upcoming Encounters Date Type Department Care Team (Late st Contact Info) Description 07/14/2025 4:00 PM EST Telemedicine [facility] [address] [place] [address] [phone] Angeline Klein MD [address] [place] [phone] documented as of this encounter Visit Diagnoses Not on filedocumented in this encounter Care Teams Dewatering Filtering Supervisor Relationship Specialty Start Date End Date Angeline Klein MD [address] [place] [address] [phone] PCP - General Family Medicine 08/21/20 documented as of this encounter
--- OUTSIDE RECORDS SUMMARY | 2025-05-29 16:54 | XMS_ITS | Encounter Summary ---
Author Organization [employer] Address 75 [facility] 7t [place] [address] Care Team Providers Care Motor Runner Name Role Phone Angeline Klein MD Primary Care Provider [phone] Encounter Details Date Type Department Care Team (Late st Contact Info) Description 03/19/[address] [facility] [address] [place], [place] [phone] Angeline Klein MD 230 [place] [address] Mixed stress and urge urinary incontinence (Primary [...] Info) Description 07/14/2025 4:[address] 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
--- OUTSIDE RECORDS SUMMARY | 2025-05-29 16:54 | XMS_ITS | Encounter Summary ---
Author Organization [employer] Address [address] [facility] 7t [place] [address] Care Team Providers Care Employment Specialist/Program Manager Name Role Phone Angeline Klein MD Primary Care Provider [phone] Encounter Details Date Type Department Care Team (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
--- OUTSIDE RECORDS SUMMARY | 2025-05-29 16:54 | XMS_ITS | Encounter Summary ---
Author Organization [employer] Address [address] [facility] 7t [place] [address] Care Team Providers Care Carry Out Clerk Name Role Phone Angeline Klein MD Primary Care Provider [phone] Encounter Details Date Type Department Care Team (Late st Contact Info) Description 04/12/2024 Orders Only [facility] 230 [place], [place] [phone] Guadalupe Garrido MD [address] [place] [address] Social History Tobacco Use Types Packs/Day Years [...] Info) Description 07/14/2025 4:00 PM EST Telemedicine [facility] [address] [place] [phone] Angeline Klein MD [address] [place] [phone] documented as of this encounter Visit Diagnoses Not on filedocumented in this encounter Additional Health Concerns Assessment Noted Time PHQ-9 Depression Total Score: 4 12/26/19 24 10:32 AM EDT documented as of this encounter Care Teams Carry Out Clerk Relationship Specialty Start Date End Date Angeline Klein MD [address] [place] [address] [phone] PCP - General Family Medicine 08/21/20 documented as of this encounter
--- OUTSIDE RECORDS SUMMARY | 2025-05-29 16:54 | XMS_ITS | Encounter Summary ---
Author Organization [employer] Address [address] [facility] 7t [place] [address] Care Team Providers Care Power Saw Operator Name Role Phone Angeline Klein MD Primary Care Provider [phone] Reason for Visit * Reason Onset Date Comments Nurse Triage 03/29/2024 Encounter Details Date Type Department Care Team ([facility] st Contact Info) Description 03/29/2024 Telephone [facility] [address] [place] [address] Angeline Klein MD [address] [place] [address] Nurse Triage Social History Tobacco Use Types [...] 03/29/2024 3:15 PM EDT Triage call with [place] Chain [place] Hand [place] [id number] Pt reports fatigue for last 3 days. [...] Reason: Caller denied all higher acuity questions Mosotho Speaker (Accepted Chain Maker Hand) documented in this encounter Plan of Treatment Upcoming Encounters Date Type Department Care Team (Late st Contact Info) Description 07/14/2025 4:00 PM EST Telemedicine [facility] [address] [place] [address] Angeline Klein MD [address] [place] [address] documented as of this encounter Visit Diagnoses Not on filedocumented in this encounter Additional Health Concerns Assessment Noted Time PHQ-9 Depression Total Score: 4 12/26/19 24 10:32 AM EDT documented as of this encounter Care Teams Power Saw Operator Relationship Specialty Start Date End Date Angeline Klein MD 230 [place], [place] [phone] PCP - General Family Medicine 08/21/20 documented as of this encounter
--- OUTSIDE RECORDS SUMMARY | 2025-05-29 16:54 | XMS_ITS | Encounter Summary ---
Author Organization [employer] Address [address] [facility] 7t [place] [address] Care Team Providers Care Civil Engineering Specialist Name Role Phone Angeline Klein MD Primary Care Provider [phone] Encounter Details Date Type Department Care Team (Late st Contact Info) Description 05/10/2024 Orders Only [facility] MEDICINE [address] [place], [place] [phone] Angeline Klein MD [address] [place] [address] Oral thrush (Primary Dx) Social History Tobacco [...] Info) Description 07/14/2025 4:00 PM EST Telemedicine [facility] MEDICINE [address] [place] [phone] Angeline Klein MD [address] [place] [phone] documented as of this encounter Visit Diagnoses Diagnosis Oral thrush- Primary Candidiasis of mouth documented in this encounter Additional Health Concerns Assessment Noted Time PHQ-9 Depression Total Score: 4 12/26/19 24 10:32 AM EDT documented as of this encounter Care Teams Civil Engineering Specialist Relationship Specialty Start Date End Date Angeline Klein MD [address] [place] [phone] PCP - General Family Medicine 08/21/20 documented as of this encounter
--- OUTSIDE RECORDS SUMMARY | 2025-05-29 16:54 | XMS_ITS | Clinical Summary ---
Author Organization [employer] Address [address] [facility] 7t [place] [address] Care Team Providers Care Marketing And Communications Officer Name Role Phone Angeline Klein MD Primary Care Provider [phone] Allergies Active Allergy Reactions Criticality Noted Date [...] dose amlodipine -needs VNA --request today to senior staff psychologist to start process for this. -pt on [...] followup with oncology and urology at [facility] Has next biopsy planned for Aug 19, [address] Blair Assessment & Plan (12/26/2023 11:21 AM EDT): Continue followup with oncology and urology at [facility] Disease is spreading, will discuss therapeutic options with Dr Palacios tomorrow Assessment & Plan (05/01/2023 4:22 PM EDT): Continue followup with oncology and urology at [facility] No signs of infection or complication currently [...] MRI with patient, Dec 2 at [facility], so that she can proceed with treatment [...] has been discussed with ER at [facility]>. Encounters Date Type Department Care Team Description 05/08/2025 Telephone [facility] MEDICINE [address] [place] [address] Angeline Klein MD Nurse Triage 04/15/2025 Orders Only GENERIC EXTERNAL DATA DEPARTMENT Provider, Generic External Data 03/29/2025 Orders Only [facility] External Provider, [facility] from Last 3 Months Immunizations Immunization Administration [...] Info) Description 07/14/2025 4:00 PM EST Telemedicine [facility] MEDICINE [address] [place] [address] Angeline Klein MD [address] [place] [address] Health Maintenance Due Date Last Done Comments [...] PM EDT Narrative 05/22/2025 10:04 AM EDT [address] [address] Interventional Radiology Rpt Signed Patient: Altaf Alba MR#: [id number] 260 : 1945 Acct:[id number] Age/Sex: 79 / F ADM Date: 04/15/25 Loc: HO.SSS Attending Dr: Severo Blair MD Ordering Physician: Severo Blair MD Date of Service: 04/15/25 Procedure(s): IR nephrostomy tube change Accession Number(s): [id number] cc: Severo Blair MD; Angeline Klein Reason [...] and over the wire. A new 8 Uzbek locking pigtail catheter was advanced over the wire. The wire was removed. 1% buffered lidocaine was used as anesthetic around the insertion site. The catheter left was cut and an stiff guidewire was placed through the tube and coiled into the renal pelvis. The old catheter was removed and over the wire. A new 8 Uzbek locking pigtail catheter was advanced over the [...] 05/22/25 1003 DD/ 1300 TD/TT: 04/15/25 1503 Painter Set: Procedure Note Donotuseinterpreter, Image - 05/22/2025 [place] [address] Interventional Radiology Rpt Signed Patient: Altaf AlbaMR#: [id number] 260 : 6Acct:[id number] Age/Sex: 79 / FADM Date: 04/15/25 Loc: [facility] Attending Dr: Severo Blair MD Ordering Physician: Severo Blair MD Date of Service: 04/15/25 Procedure(s): IR nephrostomy tube change Accession Number(s): [id number] cc: Severo Blair MD; Angeline Klein Reason [...] and over the wire. A new 8 Uzbek locking pigtail catheter was advanced over the wire. The wire was removed. 1% buffered lidocaine was used as anesthetic around the insertion site. The catheter left was cut and an stiff guidewire was placed through the tube and coiled into the renal pelvis. The old catheter was removed and over the wire. A new 8 Uzbek locking pigtail catheter was advanced over the [...] 05/22/25 1003 DD/ 1300 TD/TT: 04/15/25 1503 Painter Set: [facility] External Provider IMG IR PROCEDURES Final Result * Prothrombin Time-INR (04/15/2025 12:24 PM EDT) Prothrombin Time 11.3 10.9 - 12.4 SEC [facility] INTERNATIONAL NORM RATIO 1.0 0.9 - 1.1 [facility] Comment:INTERNATIONAL NORMAL IZED RATIO (INR) REFERENCE [...] ORDERAB LES Final Result Performing Organization Address City/State/[facility] Co de Phone Number [facility] [address] [place] [phone] * MR Pelvis w/ and w/o Contrast (03/31/2025 3:14 PM EDT) Anatomical Region Laterality Modality Body, Pelvis Magnetic Resonan ce 03/31/2025 3:14 PM EDT Narrative 04/01/2025 7:23 AM EDT [address] [address] Magnetic Resonance Report Signed Patient: Altaf Alba MR#: [id number] 260 : 1945 Acct:[id number] Age/Sex: 79 / F ADM Date: 03/31/25 Loc: HO.MRI Attending Dr: Destiney Palacios MD Ordering Physician: Destiney Palacios MD Date of Service: 03/31/25 Procedure(s): MR pelvis wo/w con Accession Number(s): [id number] cc: Destiney Palacios MD; Angeline Klein EXAMINATION: [...] 04/01/25 0720 DD/ 1514 TD/TT: 03/31/25 1543 Painter Set: Procedure Note Donotuseinterpreter, Image - 04/01/[address] [address] Magnetic Resonance Report Signed Patient: Altaf AlbaMR#: [id number] 260 : 1945cct:[id number] Age/Sex: 79 / FADM Date: 03/31/25 Loc: HO.MRI Attending Dr: Destiney Palacios MD Ordering Physician: Destiney Palacios MD Date of Service: 03/31/25 Procedure(s): MR pelvis wo/w con Accession Number(s): [id number] cc: Destiney Palacios MD; Angeline Klein EXAMINATION: [...] Bennett Alejandro MD 04/01/2025 07:20 AM EDT RP Dictated By: Bennett Alejandro MD Signed By: <Electronically signed by Bennett Alejandro MD in OV> 04/01/25 0720 DD/ 1514 TD/TT: 03/31/25 1543 Painter Set: [facility] External Provider IMG MRI PROCEDURES Final Result * CT Abdomen Pelvis w/o Contrast (03/29/2025 10:54 AM EDT) Anatomical Region Laterality Modality Body, Pelvis, Abdomen Computed T omography 03/29/2025 10:5 4 AM EDT Narrative 03/29/2025 10:56 AM EDT [place] [address] CT Scan Report Signed Patient: Altaf Alba MR#: [id number] 260 : 1945 Acct:[id number] Age/Sex: 79 / F ADM Date: 03/29/25 Loc: HO.CT Attending Dr: Destiney Palacios MD Ordering Physician: Kate Her NP Date of Service: 03/29/25 Procedure(s): CT abdomen pelvis wo IV con Accession Number(s): [id number] cc: Destiney Palacios MD; Angeline Klein; aKte Her NP Report Number: [id number]: Total DLP = 256.00 mGy-cm CLINICAL HISTORY: [...] 03/29/25 1055 DD/ 1054 TD/TT: 03/29/25 1054 Painter Set: Procedure Note Donotuseinterpreter, Image - 03/29/[address] [address] [address] Scan Report Signed Patient: Altaf Alba#: [id number] 260 : 6Acct:[id number] Age/Sex: 79 / FADM Date: 03/29/25 Loc: HO.CT Attending Dr: Destiney Palacios MD Ordering Physician: Kate Her NP Date of Service: 03/29/25 Procedure(s): CT abdomen pelvis wo IV con Accession Number(s): [id number] cc: Destiney Palacios MD; Angeline Klein; Kate Her NP Report Number: [id number]: Total DLP = 256.00 mGy-cm CLINICAL HISTORY: [...] 03/29/25 1055 DD/ 1054 TD/TT: 03/29/25 1054 Painter Set: [facility] External Provider IMG CT PROCEDURES Edited Result - Final * LIPID PANEL, STANDARD (01/22/2021 9:15 AM EDT) Pathologist [facility] Chol/HDLC Ratio 2.8 <5.0 (calc) [facility] [...] LDL-C. Timoteo SS et al. SHARYN. 2013;310(19): 6457-4585 (http://education.Pocket Tales/faq/CFY630) Non-HDL Cholesterol 116 <130 mg/dL (calc) [facility] Comment: For patients with diabetes plus 1 major ASCVD risk factor, treating to a non-HDL-C goal of <100 mg/dL (LDL-C of <70 mg/dL) is considered a therapeutic option. Triglycerides 116 <150 mg/dL [facility] 01/22/2021 9:15 AM EDT Angeline Klein MD LAB BLOOD ORDERABLES Final Res ult [facility] [address] * HEPATITIS A,B,C PROFILE (08/22/2019 1:30 PM EST) Pathologist [facility] HEPATITIS B CORE ANTIBODY NONREACTIVE NONREACTIVE [facility] HEPATITIS B INTERPRETATION SEE NOTE [facility] Comment:Negative for Hepatit is B. HEPATITIS B SURFACE ANTIBODY NONREACTIVE NONREACTIVE [facility] Comment:NONREACTIVE: < 8.00 mIU/mL HEPATITIS B SURFACE ANTIGEN NEGATIVE NEGATIVE [facility] HEPATITIS C ANTIBODY NONREACTIVE NONREACTIVE [facility] Comment: Antibodies to HCV not detected; does not exclude early acute HCV infection. 08/22/2019 1:30 PM EST us Historical Provider HISTORICAL/NON ORDERABLE LABS Final Result [facility] [address] [place] [address], from Last 3 Months or Most Recently Relevant to Health Maintenance Insurance [facility] INTERMEDIATE OPTIONS (HMO D-SNP) Care Teams Marketing And Communications Officer Relationship Specialty Start Date End Date Angeline Klein MD [address] [place], [place] PCP - General Family Medicine 08/21/20
--- OUTSIDE RECORDS SUMMARY | 2025-05-29 16:54 | XMS_ITS | Encounter Summary ---
Author Organization [employer] Address [address] [facility] 7t [place] [address] Care Team Providers Care Sheet Metal Former Name Role Phone Angeline Klein MD Primary Care Provider [phone] Reason for Visit * Reason Onset Date Comments Med Refill 12/20/2024 Encounter Details Date Type Department Care Team ([facility] st Contact Info) Description 12/20/2024 Telephone [facility] MEDICINE [address] [place] [address] Angeline Klein MD [address] [place] [address] Med Refill Social History Tobacco Use Types [...] the past 12 months, has t he [employer] gas, oil or water company threatened to [...] 25 MG tablet To be sent to: [id number] - [place] - [phone] [facility] [address] [facility] documented in this encounter Plan of Treatment Upcoming Encounters Date Type Department Care Team (Late st Contact Info) Description 07/14/2025 4:00 PM EST Telemedicine [facility] MEDICINE [address] [place] [address] Angeline Klein MD [address] [place], [place] [phone] documented as of this encounter Visit Diagnoses Not on filedocumented in this encounter Additional Health Concerns Assessment Noted Time PHQ-9 Depression Total Score: 4 12/26/19 24 10:32 AM EDT documented as of this encounter Care Teams Sheet Metal Former Relationship Specialty Start Date End Date Angeline Klein MD [address] [place] [address] PCP - General Family Medicine 08/21/20 documented as of this encounter
--- OUTSIDE RECORDS SUMMARY | 2025-05-29 16:54 | XMS_ITS | Encounter Summary ---
Author Organization [employer] Address [address] [facility] 7t [place] [address] Care Team Providers Care Brim Curler Name Role Phone Angeline Klein MD Primary Care Provider [phone] Encounter Details Date Type Department Care Team (Late st Contact Info) Description 04/05/2023 Orders Only [facility] MEDICINE [address] [place] [address] [phone] Angeline Klein MD [address] [place] [address] [phone] Primary osteoarthritis of both hips (Primary Dx); [...] Info) Description 07/14/2025 4:00 PM EST Telemedicine [facility] MEDICINE [address] [place] [address] [phone] Angeline Klein MD [address] [place] [address] [phone] documented as of this encounter Visit Diagnoses Diagnosis Primary osteoarthritis of both hips- Primary 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
--- OUTSIDE RECORDS SUMMARY | 2025-05-29 16:54 | XMS_ITS | Encounter Summary ---
Author Organization [employer] Address [address] [place] [address] 7t [place] [address] Care Team Providers Care Desk Attendant Name Role Phone Angeline Klein MD Primary Care Provider [phone] Reason for Visit * Reason Onset Date Comments Appointment Request 05/22/2023 Encounter Details Date Type Department Care Team ([facility] st Contact Info) Description 05/22/2023 Telephone [facility] MEDICINE [address] [place] [address] Angeline Klein MD [address] [place] [address] Appointment Request Social History Tobacco Use Types [...] @ 2:30 pm. Please contact pt at [phone] documented in this encounter Plan of Treatment Upcoming Encounters Date Type Department Care Team (Late st Contact Info) Description 07/14/2025 4:00 PM EST Telemedicine [facility] MEDICINE [address] [place] [address] Angeline Klein MD [address] [place] [address] documented as of this encounter Visit Diagnoses Not on filedocumented in this encounter Care Teams Desk Attendant Relationship Specialty Start Date End Date Angeline Klein MD [address] [place] [address] PCP - General Family Medicine 08/21/20 documented as of this encounter
--- OUTSIDE RECORDS SUMMARY | 2025-05-29 16:54 | XMS_ITS | Clinical Summary ---
Author Organization [facility] Address [address] [facility] [address] [facility] [address] [place] [phone] Phone Care Team Providers Care Marketing Content Manager Name Role Phone Unavailable Primary Care Provider [...] It is not the complete legal health record.[facility]
--- OUTSIDE RECORDS SUMMARY | 2025-05-29 16:54 | XMS_ITS | Encounter Summary ---
Author Organization [employer] Address [address] [place] [address] 7t [place] [address] Care Team Providers Care Hand Button Splitter Name Role Phone Angeline Klein MD Primary Care Provider [phone] Encounter Details Date Type Department Care Team (Late st Contact Info) Description 08/01/[address] [facility] MEDICINE [address] [place] [phone] Angeline Klein MD [address] [place] [address] Social History Tobacco Use Types Packs/Day Years [...] Description 07/14/2025 4:[address] [facility] MEDICINE [address] [place] [phone] Angeline Klein MD [address] [place] [address] documented as of this encounter Visit Diagnoses Not on filedocumented in this encounter Care Teams Hand Button Splitter Relationship Specialty Start Date End Date Angeline Klein MD [address] [place] [address] [phone] PCP - General Family Medicine 08/21/20 documented as of this encounter
--- OUTSIDE RECORDS SUMMARY | 2025-05-29 16:54 | XMS_ITS | Encounter Summary ---
Author Organization [employer] Address [address] [place] [address] 7t [place] [address] Care Team Providers Care Coal Sampler Name Role Phone Angeline Klein MD Primary Care Provider [phone] Encounter Details Date Type Department Care Team (Late Contact Info) Description 02/01/2023 Abstract [facility] MEDICINE [address] [place] [address] [phone] Angeline Klein MD [address] [place] [phone] Social History Tobacco Use Types Packs/Day Years [...] Info) Description 07/14/2025 4:00 PM EST Telemedicine [facility] MEDICINE [address] [place] [address] Angeline Klein MD [address] [place] [address] [phone] documented as of this encounter Visit Diagnoses Not on filedocumented in this encounter Care Teams Coal Sampler Relationship Specialty Start Date End Date Angeline Klein MD [address] [place] [phone] PCP - General Family Medicine 08/21/20 documented as of this encounter
--- OUTSIDE RECORDS SUMMARY | 2025-05-29 16:54 | XMS_ITS | Encounter Summary ---
Author Organization [employer] Address [address] [facility] 7t [place] [address] Care Team Providers Care Display Associate Name Role Phone Angeline Klein MD Primary Care Provider [phone] Encounter Details Date Type Department Care Team (Late Contact Info) Description 09/23/2022 Telephone [facility] MEDICINE [address] [place] [address] [phone] Angeline Klein MD [address] [place] [address] [phone] Social History Tobacco Use Types Packs/Day Years [...] Upcoming Encounters Date Type Department Care Team ([facility] Contact Info) Description 07/14/2025 4:00 PM EST Telemedicine [facility] MEDICINE [address] [place] [address] [phone] Angeline Klein MD [address] [place] [address] [phone] documented as of this encounter Visit Diagnoses Not on filedocumented in this encounter Care Teams Display Associate Relationship Specialty Start Date End Date Angeline Klein MD [address] [place] [address] PCP - General Family Medicine 08/21/20 documented as of this encounter
--- OUTSIDE RECORDS SUMMARY | 2025-05-29 16:54 | XMS_ITS | Clinical Summary ---
Author Organization [facility] Address [address] [address] Care Team Providers Care Buffing Line Set Up Worker Name Role Phone Unavailable Primary Care [...]
--- NOTE | 2025-05-29 17:10 | PC.NURSE ---
pt returned from IR
--- NOTE | 2025-05-29 17:30 | PC.NURSE ---
pt a&ox3, vss, pt returned from IR after having LT nephrostomy tube reinserted. currently dressings to both Nephrostomy tubes c/d/i, patient/draining
--- NOTE | 2025-05-29 18:23 | PC.NURSE ---
lt nephrostomy tube drained 350, rt had minimal wasnt drained, chest port de-accessed, pt calling to pick her up
== END 2025-05-29 18:28 | disposition home or self-care (01) ==
LOC: HO.ED 15:35 → HO.SSS 15:47 → HO.ED 16:49
PROVIDERS: Emergency Provider Emergency Medicine; PCP General Practice
DX: C67.9 Malignant neoplasm of bladder, unspecified (principal); T83.022A Displacement of nephrostomy catheter, initial encounter; Y82.8 Other medical devices associated with adverse incidents; Y92.9 Unspecified place or not applicable; Z43.6 Encounter for attention to other artificial openings of urinary tract; Z79.899 Other long term (current) drug therapy
CPT/HCPCS: 50431; 50435; 99284; 99285; J1642; J2003; J3010; Q9967

== ENCOUNTER → 2025-05-29 15:26 | Outpatient (BNV) | payer OTHER, SELFPAY | PROVIDERS: Emergency Provider Emergency Medicine; PCP General Practice | DX: T83.022A Displacement of nephrostomy catheter, initial encounter (principal) | CPT/HCPCS: 50435 ==

== ENCOUNTER 2025-06-26 10:40 | Outpatient (AMB) | payer OTHER, SELFPAY ==
--- NOTE | 2025-06-26 10:40 | A.OFFVIS_ITS ---
Intake Visit Reasons: H&P Neph tube change/3m follow up Intake Note: patient presents today for: telehealth H&P neph tube change/3mo follow up urology medications: estradiol blood thinners: none Geochemistry Teacher Required: Yes Accompanied by: Self / Same As Patient Allergies shrimp Allergy (Severe, Verified 06/26/25 10:41) Hives aspirin (ASA) Allergy (Intermediate, Verified 06/26/25 10:41) RASH ibuprofen (Ibuprofen) Allergy (Intermediate, Verified 06/26/25 10:41) RASH morphine (MORPHINE) Allergy (Intermediate, Verified 06/26/25 10:41) ITCHING naproxen (From NAPROSYN) Allergy (Intermediate, Verified 06/26/25 10:41) RASH,N/V oxycodone (OXYCODONE) Allergy (Intermediate, Verified 06/26/25 10:41) NAUSEA & VOMITING, RASH sulfamethoxazole (From Bactrim) Adverse Reaction (Severe, Verified 06/26/25 10:41) Abdominal Pain trimethoprim (From Bactrim) Adverse Reaction (Severe, Verified 06/26/25 10:41) Abdominal Pain HPI Comments Details: Altaf is a pleasant female. She is a patient of . She seen for the following urologic conditions - recurrent high-grade bladder cancer invasive Telemedicine Evaluation 15 min Consultation [employer] [facility] Video attempted Croatian translation provided by qualified medical representative Continue to change left PCN 03/05 PCN tube change and replacement late February Significant improvement in creatinine Dropped from 2.0-1.4 Three-month follow-up 12/03 PCN Charge Difficulty sleeping Will take out PCN on right side Will change left side 09/03 biopsy - no cancer seen Needs PCN exchange Requesting a different interventional provider from last time - had pain with procedure, not the same as previously 02/01 stent internalization Bladder TURP with fulguration - high-grade T1 Removal of catheter Recommend induction 6 weeks mitomycin-C with cytarabine Stents to remain 01/02 Worsening hydronephrosis Creatinine ratio elevate Bilateral PCN placed followed by stent internalization in operating room Labs Cr 06/[address] right hydro, left mild hydro Completed neoadjuvant chemotherapy Right PCN placed after presentation for NADEEN - creatinine resolving from 2.9 down to 0.94 - 03/[address] scan with resolution of bladder thickening, right hydronephrosis. 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 The bladder is partially distended with irregular wall thickening and trabeculated appearance. Dilated appearance of both distal ureters. Moderate right hydronephrosis. Mild left hydronephrosis. No lymphadenopathy. Bladder cancer superficial high-grade 2019 - disease progression - 12/01 muscle invasive bladder cancer Initial diagnosis with Dr. Hankins TURBT 05/30 high-grade superficial noninvasive disease Adjuvant therapy BCG June 2019 Surveillance cystoscopy - 04/30 NAD, 10/01 NAD, 10/02 NAD - trabeculated bladder with BCG change [facility] Medical History COPD (chronic obstructive pulmonary disease) Port-A-Cath in place Back pain Spinal stenosis Osteoarthritis of right shoulder Bladder cancer Chronic pain syndrome Encounter for preoperative pulmonary examination Levoscoliosis of lumbar spine Lumbar degenerative disc disease NADEEN (acute kidney injury) Encounter for preoperative pulmonary examination Hydronephrosis Osteoarthritis GERD (gastroesophageal reflux disease) Candidal urinary tract infection Malignant neoplasm of bladder neck Vaginal mass COVID-19 Emphysema lung Hyperlipidemia Hypertension Asthma Sepsis Bladder mass Hematuria H/O primary malignant neoplasm of urinary bladder Hemorrhoids with complication Vaginal pain Back pain Recurrent cough Dysuria Primary osteoarthritis, left shoulder Small intestinal bacterial overgrowth Bronchitis Abdominal cramping Hemorrhoids with complication Right-sided ischial pain Cough Moderate persistent allergic asthma Trochanteric bursitis, right hip UTI (urinary tract infection) Malignant neoplasm of urinary bladder Nausea and vomiting Low back pain due to bilateral sciatica Tendonitis of left rotator cuff Trochanteric bursitis of left hip Surgical History History of surgery History of ERCP Hx laparoscopic cholecystectomy Hx of cystoscopy History of hysterectomy with bilateral oophorectomy Hx of colonoscopy (01/17/19) History of esophagogastroduodenoscopy (EGD) Family History Father No problems noted. Mother Diabetes Brother Lung cancer Daughter Diabetes Social History Household Members: Spouse Housing: Apartment Are you a primary ocular care technician to a significant other at home: No Do you presently have visiting nurse or other home services: No Alcohol intake: never Patient Tobacco Use Status: Former Tobacco user Tobacco use type: Cigarette Years Smoked: 55 Use of substances other than those prescribed or required for medical reasons: No Have you been hit, kicked, punched, or otherwise hurt by someone within the past year? If so, by whom?: No Do you feel safe in your current relationship?: Yes Do you have thoughts of harming others: None Do you have a plan to hurt others: No Plan Do you have the means to hurt others: No Recently lost weight without trying: Yes How much weight loss: 2-13 pounds Eating poorly because of decreased appetite: Yes Nutrition screen score: 4 service: No Current occupational status: retired Current occupation: rt handed Review of Systems Const All systems reviewed & are unremarkable except as noted in HPI and below Reports no additional complaints Resp Reports no additional complaints GI Reports no additional complaints Reports as per HPI Musc Reports no additional complaints Physical Exam Telemedicine evaluation Appropriate responses Regular breathing rate and rhythm HEENT Head: Yes normal to inspection Ears: hearing grossly normal bilaterally Eyes General: appearance normal, both eyes and all related structures Neck Neck: Yes normal visual inspection Chest Chest palpation & inspection: normal inspection of the chest Resp Effort & Inspection: normal respiratory effort and able to speak in complete sentences Telehealth Telehealth Telehealth Platform: [facility] Location of provider rendering services: practice address Location of patient: address on file Patient Identification confirmed using: Name, : Yes Telehealth method: video Patient verbally consented to treatment: Yes Patient verbally consented to billing insurance company: Yes Patient informed of any privacy concerns related to visit: Yes Minutes spent on Phone/Video with Pt.: 15 Assessment & Plan Assessment & Plan (1) 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 These include but a re not limited to infection, bleeding, damage to local organs and tissues, need for further interventions. Anesthetic risks regarding cardiac arrhythmia, blood clots, and potential mortality were discussed. The patient understands the typical recovery time and the outpatient nature of the procedure. After consideration of these risks the patient gives full informed consent and they wish to move ahead with the procedure. - exchange left nephrostomy tube Patient Instructions: This note is constructed using voice recognition software. While every effort has been made to ensure accuracy technical support intern errors may have been included. Imaging studies, laboratory and physical exam results were discussed and reviewed in detail. No major barriers to patient understanding were identified. An opportunity to ask questions regarding the treatment plan was provided. All questions were answered. The patient expressed understanding and agreement with the above treatment plan. The patient is aware they should contact our office by phone for worsening of their current condition or the appearance of new urologic symptoms. Compliance is encouraged with any medications and followup testing that is ordered. It is a privilege to participate in the urologic care of your patient. If you have any questions or concerns regarding treatment for the above conditions, or other urologic issues, please do not hesitate to contact me. The office telephone contact is [phone]. Sincerely, Dr Severo Blair MD, [facility] Urology Compassionate Specialist Care for the Genitourinary System Coding Level of Care Code Tele Est Pt Level 3 (80574) Diagnoses 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 N13.30; C67.9
--- OUTSIDE RECORDS SUMMARY | 2025-06-26 13:15 | XMS_ITS | Data Portability ---
Author Organization [facility] [employer] [facility], [facility] Medical [facility] Address [address] [place] [phone] Care Team Providers Care Inward Toll Operator Name Role Phone HIM CCA OTHER Unavailable OTHER STEPHANIE COATS Primary Care Provider Assessment No assessment recorded. Plan of Treatment Reminders Order Date Submit Date Provider Last Modified By Organization Details Last Modified Time Details Appointments None recorded. Lab rapid strep group A, [facility] [address] [place] [address], [phone] 12:54:14 Referral None recorded. Procedures None recorded. Surgeries None recorded. Imaging None recorded. Medication Orders nystatin 100,000 unit/mL oral suspension 2023 024 [id number], [address] [place], [place], [phone], 12:54:22 Patient TargetsNo targets recorded. Patient InstructionsNo instructions recorded. Reason for Referral None Reported. Results Created Date Observation Date Name Description Value Unit Range Abnormal Flag Note LastModifiedBy Organization Detail LastModifiedTime 02/12/20 24 02/12/2024 rapid strep group A, throa t Strep negati ve Not Available [address], [phone] 02/12/2024 12:52:54 Result Notes None recorded. Medical [...] Not available Not available Not available 04/10/2024 69511 02 RxNorm COLLEEN IVAN MD [address] [place] [address],[address], [place], [phone], [employer], PT PAL 4 09:07:46 5743 naproxen medicatio n Not available Not available Not available 04/10/2024 7258 RxNorm COLLEEN IVAN MD [address] [place] [address],[address], [place], [address], [employer] 4 09:08:04 5744 oxycodone medicatio n Not available Not available Not available 04/10/2024 7804 RxNorm COLLEEN IVAN MD [address] [place] [address],[address], [place], [phone], [employer], PT PAL 4 09:08:18 Medications Name Sig Start Date [...] [degF] 105 /min 106/66 mm[Hg] Not Available [employer] - production 4 10:22:14 Date Recorded Oxygen saturation Oxygen saturation in Arterial blood by Pulse oximetry Body temperature Body weight Heart rate Body height Respiratory rate Systolic And Diastolic Provider Name and Address Organization Details Last Updated DateTime 4 98 % 98 % 99.1 [degF] 51509 g 90 /min 152.4 cm 14 /min 120/80 mm[Hg] Not Available [employer] [facility] [employer] 4 09:29:14 Social History None recorded. Functional Status None recorded. Mental Status None recorded. Family History Nothing Reported. Medical History No medical history recorded. Gynecological HistoryNo gynecological history recorded. Obstetrics History GPAL:G 0 P 0 0 0 0 Past Encounters Encounter ID Performer Location Encounter Start Date Encounter Closed Date Diagnosis/Indication Diagnosis SNOMED-CT Code Diagnosis ICD10 Code Diagnosis IMO Codes Diagnosis Note [id number] Dominick Walker MD [facility] [address] [place] [phone] 02/12/2024 10:22:08 02/12/2024 16:37:24 Candidiasis of mouth 61241003 B37.0 Sent out for rapid strep and refill of Nystatin. [id number] COLLEEN IVAN MD [facility] - [facility] [address] [place] [phone] 04/10/2024 09:28:55 04/10/2024 11:00:49 Attention to nephrostomy tube 893616259 Z43.6 Evaluation in the field was performed by my research phlebotomist colleague, as noted above, I provided real-time direction and supervisio n for this visit. The evaluation revealed a 78-year-ol d female, status post bilateral nephrostom y tube placement on the or 17 of March, with concerns that the dressing has not been changed since. She denies bleeding, drainage, fever, chills, nausea, and vomiting. Per discussion with the patient via a Kazakh interprete r, she reports that she has a telehealth visit with Urology on April 12. VSS.Per discussion and per photo view, dressing in place, dry, clean with no urine or blood saturation Impression :B/L nephrostom y tube in place Plan:Since the dressing was intact, the research phlebotomist did not feel comfortabl e changing it [...] Member ID Brooks Member ID Guarantor Name 06/05/2025 1 [facility] - DOS ON OR AFTER 2022 - DUAL ELIGIBLE - [facility] OPTIONS AND ONE CARE (MEDICARE REPLACEMENT/ADV ANTAGE - HMO) Altaf Alba [id number] Altaf Alba Notes Date Note Type Note [...] in clear full sentences. Pt seen at [facility] 01/08 for similar sx and given Nystatin for thrush as has hx of this. Pt unable to come into office. Pt agrees to [facility] for eval. ................... ................... ................... ................... ................... ................... ................... ........ CRC Nurse Triage Notes (Marilia Bee): Comments: CRC RN DID NOT NEED FURTHER INFO Plating Inspector POC Test Results from Yovany Sesay BLAIR Rapid strep test (1) [10:30] Strep: - ................... ................... ................... ................... ................... ................... ................... ........ Plating Inspector Note From Yovany Sesay: Pt reports off [...] No LE edema. Rapid strep negative. [facility] contacted and will send nystatin rx to pharmacy. Pt instructed to f/u with PCP as they requested. Red flags reviewed. ................... ................... ................... ................... ................... ................... ................... ........ Disposition: Fulfilled Dominick Walker MD [address] [facility],[address], [place], [phone], [facility] 02/12/2024 12:54:18 04/10/2024 text/html ROS as noted in the HPI CRC Nurse Triage Notes (Tori Nolasco): Reason For Request: Wound care Chief Complaints: Wound Care PMH: COPD/Asthma, Hypertension, Cancer, Heart Disease Allergies: Aspirin, Ibuprofen, Morphine Other Allergies: dupixent, MS, ASA, naproxen, oxycodone, mult others that she can't recall Comments: Referral taken via Practice Manager [id number]. Member calling in to place a referral, [...] ................... ................... ................... ................... ................... ................... ........ Plating Inspector Note From Jelani Geller: Patient conscious alert [...] discoloration, odor, discharge, or other concern. [facility] agrees encourages patient to follow up with urology, patient has an appointment April 12. Red flags patient education discussed. Patient demonstrates understanding of care and plan. Plating Inspector Allergies: Aspirin, Ibuprofen, Morphine ................... ................... ................... ................... ................... ................... ................... ........ Disposition: Chantal IVAN MD [address] [place] [address],[address] [facility], [place], [phone], [employer] 04/10/2024 10:27:47 OBGyn Episode No OBEpisode recorded.
== END 2025-06-26 11:42 | disposition home or self-care (01) ==
LOC: HO.HUSH 10:40
PROVIDERS: PCP General Practice; Visit Provider Urology
DX: C67.9 Malignant neoplasm of bladder, unspecified (principal); N13.39 Other hydronephrosis
CPT/HCPCS: 99213

== ENCOUNTER 2025-07-18 11:34 | Day surgery (SDC) | payer OTHER, SELFPAY ==
--- OUTSIDE RECORDS SUMMARY | 2025-07-16 14:00 | XMS_ITS | Clinical Summary ---
Author Organization [facility] Address [address] [place] [phone] Phone Care Team Providers Care Lace And Textiles Restorer Name Role Phone Unavailable Primary Care Provider [...]
--- OUTSIDE RECORDS SUMMARY | 2025-07-16 14:00 | XMS_ITS | Data Portability ---
Author Organization [facility] [employer] [facility], [facility] Medical [facility] Address [address] [place] [phone] Care Team Providers Care Distillery Supervisor Name Role Phone HIM CCA OTHER Unavailable OTHER STEPHANIE COATS Primary Care Provider Assessment No assessment recorded. Plan of Treatment Reminders Order Date Submit Date Provider Last Modified By Organization Details Last Modified Time Details Appointments None recorded. Lab rapid strep group A, throat 2023 024 [facility] [address] [place] [address], [phone] 12:54:14 Referral None recorded. Procedures None recorded. Surgeries None recorded. Imaging None recorded. Medication Orders nystatin 100,000 unit/mL oral suspension 2023 024 [facility][id number], [address] [place], [place], [phone], 12:54:22 Patient TargetsNo targets recorded. Patient InstructionsNo instructions recorded. Reason for Referral None Reported. Results Created Date Observation Date Name Description Value Unit Range Abnormal Flag Note LastModifiedBy Organization Detail LastModifiedTime 02/12/20 24 02/12/2024 rapid strep group A, throa t Strep negati ve Not Available [address], [phone] 02/12/2024 12:52:54 Result Notes None recorded. Medical [...] Not available Not available Not available 04/10/2024 [id number] 02 RxNorm COLLEEN IVAN MD [address] [place] [address],[address], [place], [phone], [employer], [employer] 4 09:07:46 5743 naproxen medicatio n Not available Not available Not available 04/10/2024 7258 RxNorm COLLEEN IVAN MD [address] [place] [address],[address], [place], [address], [employer] 4 09:08:04 5744 oxycodone medicatio n Not available Not available Not available 04/10/2024 7804 RxNorm COLLEEN IVAN MD [address] [place] [address],[address], [place], [address], [employer], [employer] 4 09:08:18 Medications Name Sig Start Date [...] [degF] 105 /min 106/66 mm[Hg] Not Available [employer] - production 4 10:22:14 Date Recorded Oxygen saturation Oxygen saturation in Arterial blood by Pulse oximetry Body temperature Body weight Heart rate Body height Respiratory rate Systolic And Diastolic Provider Name and Address Organization Details Last Updated DateTime 4 98 % 98 % 99.1 [degF] 70140 g 90 /min 152.4 cm 14 /min 120/80 mm[Hg] Not Available [employer] 4 09:29:14 Social History None recorded. Functional Status None recorded. Mental Status None recorded. Family History Nothing Reported. Medical History No medical history recorded. Gynecological HistoryNo gynecological history recorded. Obstetrics History GPAL:G 0 P 0 0 0 0 Past Encounters Encounter ID Performer Location Encounter Start Date Encounter Closed Date Diagnosis/Indication Diagnosis SNOMED-CT Code Diagnosis ICD10 Code Diagnosis IMO Codes Diagnosis Note [id number] Dominick Walker MD [facility] [address] [place] [phone] 02/12/2024 10:22:08 02/12/2024 16:37:24 Candidiasis of mouth 10903914 B37.0 Sent out for rapid strep and refill of Nystatin. [id number] COLLEEN IVAN MD [facility] [address] [place] [phone] 04/10/2024 09:28:55 04/10/2024 11:00:49 Attention to nephrostomy tube [id number] Z43.6 Evaluation in the field was performed by my stencil printer colleague, as noted above, I provided real-time direction and supervisio n for this visit. The evaluation revealed a 78-year-ol d female, status post bilateral nephrostom y tube placement on the or 17 of March, with concerns that the dressing has not been changed since. She denies bleeding, drainage, fever, chills, nausea, and vomiting. Per discussion with the patient via a Kiswahili interprete r, she reports that she has a telehealth visit with Urology on April 12. VSS.Per discussion and per photo view, dressing in place, dry, clean with no urine or blood saturation Impression :B/L nephrostom y tube in place Plan:Since the dressing was intact, the stencil printer did not feel comfortabl e changing it [...] Brooks Member ID Guarantor Name 06/05/2025 1 [facility] - DOS ON OR AFTER 2022 - DUAL ELIGIBLE - [facility] OPTIONS AND ONE CARE (MEDICARE REPLACEMENT/ADV ANTAGE - HMO) Altaf Alba [id number] Altaf Alba Notes Date Note Type Note [...] in clear full sentences. Pt seen at [facility] 01/08 for similar sx and given Nystatin for thrush as has hx of this. Pt unable to come into office. Pt agrees to [facility] for eval. ................... ................... ................... ................... ................... ................... ................... ........ CRC Nurse Triage Notes (Marilia Bee): Comments: CRC RN DID NOT NEED FURTHER INFO Christmas Tree Farm Manager POC Test Results from Yovany Sesay BLAIR Rapid strep test (1) [10:30] Strep: - ................... ................... ................... ................... ................... ................... ................... ........ Christmas Tree Farm Manager Note From Yovany Sesay: Pt reports [...] exam. No LE edema. Rapid strep negative. [facility] [place] and will send nystatin rx to pharmacy. Pt instructed to f/u with PCP as they requested. Red flags reviewed. ................... ................... ................... ................... ................... ................... ................... ........ Disposition: Fulfilled Dominick Walker MD [address] [facility],[address], [place], [phone], [employer] 02/12/2024 12:54:18 04/10/2024 text/html ROS as noted in the HPI CRC Nurse Triage Notes (Tori Nolasco): Reason For Request: Wound care Chief Complaints: Wound Care PMH: COPD/Asthma, Hypertension, Cancer, Heart Disease Allergies: Aspirin, Ibuprofen, Morphine Other Allergies: dupixent, MS, ASA, naproxen, oxycodone, mult others that she can't recall Comments: Referral taken via Diesel Engine Operator [id number]. Member calling in to place a referral, [...] ................... ................... ................... ................... ................... ................... ........ Christmas Tree Farm Manager Note From Jelani Geller: Patient conscious [...] moisture, discoloration, odor, discharge, or other concern. [facility] agrees encourages patient to follow up with urology, patient has an appointment April 12. Red flags patient education discussed. Patient demonstrates understanding of care and plan. Christmas Tree Farm Manager Allergies: Aspirin, Ibuprofen, Morphine ................... ................... ................... ................... ................... ................... ................... ........ Disposition: Chantal IVAN MD [address] [place] [address],[address] [facility], [place], [phone], [employer] 04/10/2024 10:27:47 OBGyn Episode No OBEpisode recorded.
[2025-07-18] VITALS (9 sets, daily range): BP systolic 128–159; BP diastolic 54–89; PULSE 81–97; RESP 18–26; TEMP 36.6–37.6; O2SAT 95–97; BMI 17.3
--- NOTE | ~2025-07-18 | IR_ITS ---
EXAMINATION: XR NEPHROSTOMY TUBE CHANGE, right-sided CLINICAL INFORMATION: FLUOROSCOPIC RIGHT SIDED NEPHROSTOMY TUBE EXCHANGE History: Patient with bilateral nephrostomy tubes due to bladder cancer and ureteral obstruction. Patient presents for three-month maintenance change. Procedure: Patient was informed and consented to the procedure. The patient's back was prepped and draped in routine sterile fashion. The right-sided catheter was cut and a stiff guidewire was placed through the tube and coiled into the renal pelvis. The old catheter was removed and over the wire a new 8 Palestinian locking pigtail catheter was advanced. The wire was removed. 1% buffered lidocaine was used as anesthetic around the insertion site. The catheter left was cut and an stiff guidewire was placed through the tube and coiled into the renal pelvis. The old catheter was removed and over the wire. A new 8 Palestinian locking pigtail catheter was advanced over the wire. The wire was removed. 5 mL of contrast was injected to ensure proper positioning of each catheter in the renal pelvis. A 2-0 surgipro suture was used to secure the catheters to the skin. A sterile dressing was applied. Total fluoroscopy time was 1.0. IR/IR nephrostomy tube change IMPRESSION: Right-sided Nephrostomy tube exchange PLAN: Recommended routine exchange in 3 months or at urologist discretion. This procedure performed by David Sheehan NP, and supervised by Sesar Casarez M.D. Electronically signed by: Sesar Casarez MD 07/29/2025 02:59 PM [facility] Workstation: [id number]
[2025-07-18 12:46] LABS: MANUAL DIFF FLAG NO
[2025-07-18 12:51] LABS: Hematocrit 34.0 % (37.0-47.0); Hemoglobin 10.3 g/dl (12.0-16.0); Imm Gran Abs Auto 0.02 X10*3/uL (0.00-0.03); Imm Gran Pct Auto 0.3 % (0.0-0.4); Lymphocytes Absolute Auto 1.6 X10*3/uL (1.2-4.9); Mean Corpuscular HGB Conc 30.3 g/dl (31.0-35.0); Mean Corpuscular Hemoglobin 25.6 pg (27.0-33.0); Mean Corpuscular Volume 84.4 fL (80.0-98.0); NRBC Abs Auto 0.000 X10*3/uL (0.0-0.012); NRBC Pct Auto 0.0 /100WBC (0.0-0.2); Platelet Count 487 X10*3/uL (160-400); Red Blood Count 4.03 X10*6/uL (4.20-5.50); White Blood Count 7.3 X10*3/uL (4.8-10.8)
[2025-07-18 12:56] LABS: INTERNATIONAL NORM RATIO 1.1 (0.9-1.1); Prothrombin Time 12.9 SEC (11.2-13.5)
[2025-07-18 13:03] LABS: Anion Gap 11 (12-20); Blood Urea Nitrogen 39 mg/dL (9-16); Calcium 9.3 mg/dL (8.4-10.2); Carbon Dioxide 27 mmol/L (22-29); Chloride 107 mmol/L (96-108); Creatinine Clr Calc Pharmacy 29.0; Estimated Glomerular Filt Rate 46; Potassium 4.9 mmol/L (3.3-5.1); Sodium 140 mmol/L (135-145)
== END 2025-07-18 16:31 | disposition home or self-care (01) ==
PROVIDERS: Radiology Diagnostic Radiology; PCP General Practice; Visit Provider Urology
DX: N13.30 Unspecified hydronephrosis (principal); C67.9 Malignant neoplasm of bladder, unspecified; G89.4 Chronic pain syndrome; M54.42 Lumbago with sciatica, left side; M54.41 Lumbago with sciatica, right side; J44.9 Chronic obstructive pulmonary disease, unspecified; I10 Essential (primary) hypertension; Z90.710 Acquired absence of both cervix and uterus; Z79.899 Other long term (current) drug therapy; Z88.2 Allergy status to sulfonamides; Z88.5 Allergy status to narcotic agent; Z88.6 Allergy status to analgesic agent; Z98.890 Other specified postprocedural states; Z90.49 Acquired absence of other specified parts of digestive tract; Z87.891 Personal history of nicotine dependence
CPT/HCPCS: 36415; 50435; 80048; 85025; 85610; C1769; J0690; J1642; J2003; J2250; J3010; Q9967

== ENCOUNTER → 2025-07-18 13:26 | Outpatient (BNV) | payer OTHER, SELFPAY | PROVIDERS: PCP General Practice | DX: Z43.6 Encounter for attention to other artificial openings of urinary tract (principal); C67.9 Malignant neoplasm of bladder, unspecified; N13.30 Unspecified hydronephrosis | CPT/HCPCS: 50435 ==

== ENCOUNTER 2025-07-22 09:36 | Outpatient (REF) | payer OTHER, SELFPAY ==
--- OUTSIDE RECORDS SUMMARY | 2025-07-18 09:00 | XMS_ITS | Encounter Summary ---
Author Organization [employer] Address [address] [place] [address] [address] [place] [address] Care Team Providers Care Package Liner Name Role Phone Angeline Klein MD Primary Care Provider [phone] Reason for Referral * Imaging (Routine) - Authorized Specialty Diagnoses / Procedures Referred By Milan riojas Referred To Contact Cardiology Diagnoses Neck pain on left side Dizziness Procedures Vascular US carotid artery duplex bilateral Angeline Klein MD [address] [place] [address] Phone: tel: fax: [address] Phone: tel: fax: Referral ID Status Reason Start Date Expiration Date Visits Requested Visits Authorized [id number] Authorized Perform Procedure 07/18/2025 07/18/2026 1 1 Reason for Visit * Reason Comments Follow-up Encounter Details Date Type Department Care Team (Latest Contact Info) Description 07/18/2025 9:00 AM EST Office Visit [facility] MED[facility]INE [address] [place] [address] [phone] Angeline Klein MD [address] [place] [address] [phone] Neck pain on left side (Primary Dx); Chronic pain after cancer treatment; Dizziness; Subclavian artery stenosis; Primary hypertension; Protein-calorie malnutrition, unspecified severity (CMS/HCC); Other hyperlipidemia; Slow transit constipation; Mixed stress and urge urinary incontinence; Malignant neoplasm of urinary bladder neck (HCC); Primary osteoarthritis of both hips; Centrilobular emphysema (HCC) Social History Tobacco Use Types Packs/Day Years [...] Answer Date Recorded Patient Health Questionnaire-9 Score 12 07/14/2025 Patient Health Questionnaire-9 Score 12 07/14/2025 Last PHQ-9: Questionnaire Data Not on file 1 09/13/2024 Housing Stability Answer Date Recorded What is [...] the past 12 months, has t he [employer], oil or water [employer] threatened to shut off services in your home? No 11/29/2024 Depression Answer Date Recorded Patient Health Questionnaire-2 Score 3 07/14/2025 Internet Access Answer Date Recorded Internet Access [...] Sign Reading Time Taken Comments Blood Pressure 118/60 07/18/2025 9:07 AM EST Pulse 60 07/18/2025 9:07 AM EST Temperature 36.8 C (98.3 F) 07/18/2025 9:07 AM EST Respiratory Rate 20 07/18/2025 9:07 AM EST Oxygen Saturation - - Inhaled Oxygen Concentration - - Weight 44.9 kg (99 lb) 07/18/2025 9:07 AM EST Height 162.6 cm (5' 4 ) 07/18/2025 9:07 AM EST Body Mass Index 16.99 07/18/2025 9:07 AM EST documented in this encounter Progress Notes * Angeline Klein MD - 07/18/2025 9:00 AM EST SUBJECTIVE: Altaf Alba is a 79 y.o. female who presents for chronic disease management. Denies recent illness, ER visit, or hospitalization. Accompanied by her DIRECTOR MBA. Acute Concerns: Lost weight to 99 pounds, not hungry with chemo, drinking 1-2 cans of Ensure daily. Will start Remeron today, 7.5mg at nighttime. She is also complaining of debilitating pain from her hair to the tips of her toes. Takes Tramadol sparingly for bladder pain. Declines oxycodone or morphine. Will trial low-dose Butrans 5mcg patch. Warned about side effects of sedation Left sided pulsatile feeling in L neck veins associated with pain, carotid pulse is bounding on this side. Will obtain clavicular xray and carotid ultrasound Chronic Conditions and Plans: Bladder cancer, recurrent, active: Followed by Dr Palacios at [facility] CT abd/pelvis Diffuse irregular bladder wall thickening [...] Vaginal involvement 09/24/2024 nephrostomy tube exchange and DIRECTOR MBA caring for her Has health care proxy and [facility] locally advanced bladder cancer that appears to be high-grade with squamous differentiation. completed systemic therapy with carboplatin and gemcitabine x 5 cycles 06/2023 repeat cystoscopy and biopsy in OR Dr Blair high-grade bladder cancer recurred in August 2022. She underwent TURBT on 08/23/2022 which revealed papillary urothelial carcinoma, high-grade. Abundant necrosis present, muscularis propria presentwith no involvement by tumor. Tumor involving 75% [...] stem cell transplant for bladder cancer in [phone] Arthritis in her hips and shoulders active and painful, but she does not want injections or surgery. Receiving Qutenza (capsacin 8%) treatments at [facility] Pain mgmt Edema of lower extremities and color changes Vit B12, gabapentin, vascular referral for US. She does not think that this seems related to her cancer treatment, she notes she has been receiving chemotherapy for all of 2023 and this started occurring the past several months only. COPD 04/2025 pulm Well controlled on Nucala, Flovent, Combivent, and albuterol MDI. Continue current regimen HTN Not requiring any medications currently At goal here and at home Constipation On Linzess 290mcg and prn simethicone Health maintenance: Mammo > 75 Colon > 75 Imms- due for zoster, Flu, PCV 20, COVID. Declines as instructed to do so until end of chemo regimen Patient Active Problem List Diagnosis Date Noted Underweight 12/02/2024 Localized edema 12/02/2024 Vaginal bleeding 07/25/2024 Mixed stress and urge urinary incontinence 03/19/2024 Protein-calorie malnutrition, unspecified severity ([facility]) 05/01/2023 Stage 2 chronic kidney disease 02/08/2023 Unspecified hypertensive kidney disease with chronic kidney disease stage I through stage IV, or unspecified 02/08/2023 Impaired mobility 01/11/2023 Pain in left leg 12/22/2022 Slow transit constipation 09/14/2022 Acute pyelonephritis 09/14/2022 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 Malignant tumor of urinary bladder ([facility]) 04/25/2018 Asthenia 02/15/2018 Mass of urinary bladder 02/09/2018 Hyperparathyroidism due to renal insufficiency ([facility]) 07/31/2013 History of cholecystectomy 07/23/2013 Osteopenia 01/21/2013 Irritable bowel syndrome 10/02/2012 Subclavian artery stenosis 10/02/2012 Osteoarthritis of hip 06/29/2012 Chronic low back pain 05/22/2012 Gastroesophageal reflux disease 05/22/2012 Hyperlipidemia 05/22/2012 Spondylosis 05/22/2012 Chronic obstructive pulmonary disease (HCC) 02/20/2012 Hypertension 02/20/2012 Surgical History[1] Social History Social History Narrative Not on file Review of Systems Constitutional: Positive for unexpected weight change. Respiratory: Negative. Cardiovascular: Negative. Genitourinary: Positive for flank pain. Musculoskeletal: Positive for arthralgias, back pain, gait problem, myalgias and neck pain. Skin: Negative. Hematological: Distended neck veins, L sided OBJECTIVE: Vitals: 07/18/25 0907 BP: 118/60 BP Location: Left arm Patient Position: Sitting BP Cuff Size: Large adult Pulse: 60 Resp: 20 Temp: 98.3 ??F (36.8 ??C) TempSrc: Oral Weight: 99 lb (44.9 kg) Height: 5' 4 (1.626 m) Physical Exam Vitals reviewed. Constitutional: Appearance: Normal appearance. Comments: underweight HENT: Head: Normocephalic and atraumatic. Neck: Vascular: JVD present. No carotid bruit. Comments: Distended L sided neck veins, cartoid pulse is more readily appreciated on the L Cardiovascular: Rate and Rhythm: Normal rate and regular rhythm. Pulses: Normal pulses. Heart sounds: Normal heart sounds. Pulmonary: Effort: Pulmonary effort is normal. Breath sounds: Normal breath sounds. Musculoskeletal: Cervical back: Full passive range of motion without pain. Lymphadenopathy: Cervical: No cervical adenopathy. Skin: General: Skin is warm and dry. Neurological: General: No focal deficit present. Mental Status: She is alert and oriented to person, place, and time. Psychiatric: Mood and Affect: Mood normal. Behavior: Behavior normal. ASSESSMENT/PLAN Problem List Items Addressed This Visit Chronic obstructive pulmonary disease (HCC) Relevant Medications albuterol 108 (90 Base) MCG/ACT inhaler Hyperlipidemia Current Assessment & Plan Will hold Pravastatin for now Benefit unclear and pt is malnourished and undergoing chemo with severe body pain Hypertension Malignant tumor of urinary bladder (HCC) Relevant Medications buprenorphine (Butrans) 5 MCG/HR Osteoarthritis of hip Relevant Medications buprenorphine (Butrans) 5 MCG/HR Subclavian artery stenosis Slow transit constipation Protein-calorie malnutrition, unspecified severity (CMS/HCC) Mixed stress and urge urinary incontinence Overview Related to history of recurrent bladder cancer Other Visit Diagnoses Neck pain on left side - Primary Relevant Medications buprenorphine (Butrans) 5 MCG/HR Other Relevant Orders XR Clavicle Left Vascular US carotid artery duplex bilateral Chronic pain after cancer treatment Relevant Medications buprenorphine (Butrans) 5 MCG/HR Dizziness Relevant Orders Vascular US carotid artery duplex bilateral Follow Up: 6 months or sooner prn Allergies[2] Current Medications[3] Ukrainian Translation: Provided by [facility] staff member EVELYN Kulkarni [1] Past Surgical History: Procedure Laterality Date IR NEPHROSTOGRAM 02/27/2024 IR NEPHROSTOGRAM IR NEPHROSTOGRAM 01/02/2024 IR NEPHROSTOGRAM IR NEPHROSTOGRAM 03/18/2024 IR NEPHROSTOGRAM IR NEPHROSTOGRAM 02/04/2025 IR NEPHROSTOGRAM IR NEPHROSTOMY TUBE CHANGE 07/08/2024 IR NEPHROSTOMY TUBE CHANGE IR NEPHROSTOMY TUBE CHANGE 09/25/2024 IR NEPHROSTOMY TUBE CHANGE IR NEPHROSTOMY TUBE CHANGE 01/08/2025 IR NEPHROSTOMY TUBE CHANGE IR NEPHROSTOMY TUBE CHANGE 02/05/2025 IR NEPHROSTOMY TUBE CHANGE IR NEPHROSTOMY TUBE CHANGE 05/22/2025 IR NEPHROSTOMY TUBE CHANGE IR NEPHROSTOMY TUBE CHANGE 05/22/2025 IR NEPHROSTOMY TUBE CHANGE IR NEPHROSTOMY TUBE CHANGE 06/10/2025 IR NEPHROSTOMY TUBE CHANGE [2] Allergies Allergen Reactions Aspirin Dupilumab Other Ibuprofen Other reaction(s): Itching Methazolamide Other reaction(s): Stomach Pain Morphine Naproxen Nausea Only Nsaids Oxycodone Dizziness Other reaction(s): Other (see comments) [3] Current Outpatient Medications: albuterol (2.5 MG/3ML) 0.083% nebulizer solution, Use 3cc q6h prn sob, Disp: 75 mL, Rfl: 1 albuterol 108 (90 Base) MCG/ACT inhaler, Inhale 2 puffs every 6 (six) hours if needed for wheezing., Disp: 18 g, Rfl: 3 buprenorphine (Butrans) 5 MCG/HR, Place 1 patch on the skin 1 (one) time per week., Disp: 4 patch, Rfl: 5 Combivent Respimat 20-100 MCG/ACT inhaler, INHALE 1 PUFF BY MOUTH FOUR TIMES DAILY. MAY TAKE ADDITIONAL PUFFS NEEDED. NOT TO EXCEED 6 PUFFS IN 24 HOURS, Disp: 4 g, Rfl: 5 estradiol (Estrace) 0.1 MG/GM vaginal cream, USE 1 GRAM VAGINALLY 3 TIMES A WEEK, Disp: , Rfl: Flovent HFA 110 MCG/ACT inhaler, Inhale 1 puff 2 times daily., Disp: , Rfl: hydrOXYzine HCl (Atarax) 25 MG tablet, , Disp: , Rfl: Linzess 290 MCG capsule, Take 290 mcg by mouth in the morning., Disp: , Rfl: Miconazole 7 2 % vaginal cream, INSERT 1 APPLICATORFUL VAGINALLY AT BEDTIME FOR 7 DAYS, Disp: , Rfl: mirtazapine (Remeron) 7.5 MG tablet, Take 1 tablet (7.5 mg) by mouth at bedtime. For appetite, Disp: 90 tablet, Rfl: 1 Multiple Vitamin (multivitamin) tablet, Take 1 tablet by mouth Once per day., Disp: 90 tablet, Rfl:3 nystatin (Mycostatin) 300778 UNIT/ML suspension, SHAKE LIQUID AND TAKE 1 ML BY MOUTH THREE TIMES DAILY, Disp: , Rfl: simethicone (Mylicon) 80 MG chewable tablet, Chew 80 mg at bedtime., Disp: , Rfl: Spacer/Aero-Holding Chambers (AeroChamber MV) inhaler, by Other route. Use as instructed, Disp: , Rfl: white petrolatum gel, Apply topically if needed for dry skin (on the feet)., Disp: 113 g, Rfl: 1 documented in this encounter Miscellaneous Notes * Assessment & Plan Note - Angeline Klein MD - 07/18/2025 10:20 AM EST Associated Problem(s): Hyperlipidemia Will hold Pravastatin for now Benefit unclear and pt is malnourished and undergoing chemo with severe body pain documented in this encounter Plan of Treatment Not on file documented as of this encounter Procedures Procedure Name Priority Date/Time Associated Diagnosis Comments XR CLAVICLE LEFT Routine 07/22/2025 9:51 AM EST Neck pain on left side documented in this encounter Results * XR Clavicle Left (07/22/2025 9:51 AM EST) Anatomical Region Laterality Modality Body, Clavicle Left Radiographic Manju ging 07/22/2025 9:51 AM EST Narrative 07/22/2025 9:59 AM EST [address] [address] XRay Report Signed Patient: Altaf Alba MR#: [id number] 260 : 1945 Acct:[id number] Age/Sex: 79 / F ADM Date: 07/22/25 Loc: .[facility]X Attending Dr: Angeline Klein MD Ordering Physician: Angeline Klein Date of Service: 07/22/25 Procedure(s): XR clavicle LT Accession Number(s): [id number] cc: Angeline Klein Reason for Exam: pain and raised blood vessels in Left neck EXAMINATION: XR CLAVICLE, LEFT CLINICAL INFORMATION: pain and raised blood vessels in Left neck COMPARISON: None available. TECHNIQUE: AP axial and AP view of the left clavicle. FINDINGS: There is mild degenerative change of the AC joint. There is no AC joint separation. No acute fracture is identified. There is mild degenerative change of the left shoulder joint. 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 Electronically signed by: Saman Mcclellan MD 07/22/2025 09:56 AM EST RP Dictated By: Saman Mcclellan MD Signed By: <Electronically signed by Saman Mcclellan MD in OV> 07/22/25955 DD/ 0 TD/TT: 07/22/25950 Autocad Designer: Procedure Note Donotuseinterpreter, Image - 07/22/2025 [place] [address] XRay Report Signed Patient: Altaf AlbaMR#: [id number] : 1945cct:[id number] Age/Sex: 79 / FADM Date: 07/22/25 Loc: HO.HHCX Attending Dr: Angeline Klein MD Ordering Physician: Angeline Klein Date of Service: 07/22/25 Procedure(s): XR clavicle LT Accession Number(s): [id number] cc: Angeline Klein Reason for Exam: pain and raised blood vessels in Left neck EXAMINATION: XR CLAVICLE, LEFT CLINICAL INFORMATION: pain and raised blood vessels in Left neck COMPARISON: None available. TECHNIQUE: AP axial and AP view of the left clavicle. FINDINGS: There is mild degenerative change of the AC joint. There is no AC joint separation. No acute fracture is identified. There is mild degenerative change of the left shoulder joint. 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 Electronically signed by: Saman Mcclellan MD 07/22/2025 09:56 AM EST RP Dictated By: Saman Mcclellan MD Signed By: <Electronically signed by Saman Mcclellan MD in OV> 07/22/2556 DD/ 0 TD/TT: 07/22/25950 Autocad Designer: Angeline Klein MD IMG XR PROCEDURES Edited Resul t - Final documented in this encounter Visit Diagnoses Diagnosis Neck pain on left side- Primary Chronic pain after cancer treatment Dizziness Dizziness and giddiness Subclavian artery stenosis Primary hypertension Unspecified essential hypertension Protein-calorie malnutrition, unspecified severity (CMS/HCC) Other hyperlipidemia Slow transit constipation Mixed stress and urge urinary incontinence Mixed incontinence urge and stress (male)(female) Malignant neoplasm of urinary bladder neck (HCC) Malignant neoplasm of bladder neck Primary osteoarthritis of both hips Centrilobular emphysema (HCC) documented in this encounter Additional Health Concerns Assessment Noted Time PHQ-9 Depression Total Score: 12 025 4:16 PM EST documented as of this encounter Care Teams Package Liner Relationship Specialty Start Date End Date Angeline Klein MD [address] [place] [id number] PCP - General Family Medicine 08/21/20 documented as of this encounter
--- NOTE | ~2025-07-22 | XR_ITS ---
EXAMINATION: XR CLAVICLE, LEFT CLINICAL INFORMATION: pain and raised blood vessels in Left neck COMPARISON: None available. TECHNIQUE: AP axial and AP view of the left clavicle. FINDINGS: There is mild degenerative change of the AC joint. There is no AC joint separation. No acute fracture is identified. There is mild degenerative change of the left shoulder joint. 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 Electronically signed by: Saman Mcclellan MD 07/22/2025 09:56 AM MIRIAN
--- OUTSIDE RECORDS SUMMARY | 2025-07-22 10:48 | XMS_ITS | Encounter Summary ---
Author Organization [employer] Address [address] [facility] [address] [place] [address] Care Team Providers Care Cut Off Machine Helper Name Role Phone Angeline Klein MD Primary Care Provider [phone] Reason for Visit * Reason Onset Date Comments Referral 04/04/2023 Encounter Details Date Type Department Care Team ([facility] st Contact Info) Description 04/04/[address] [facility] [address] [place] [address] Angeline Klein MD [address] [place] [address] Referral Social History Tobacco Use Types Packs/Day [...] 11:18 AM EDT TC placed to pt [phone] in regards to below message however number is OOS. RN called pt's OPHELIA Larson [phone] who was able to confirm the pt DOES want to go to [facility] pain management. RN informed[facility] PCP would place referral today. OPHELIA Larson also provided RN w/ updated number for the pt ([phone]). RN has updated pt's chart. Please place referral to [facility] pain management. * Telephone Encounter - Mary Devon - 04/04/2023 2:43 PM EDT Tc from kelly with [facility] requesting a new referral for pain management. documented in this encounter Plan of Treatment Not on file documented as of this encounter Visit Diagnoses Not on filedocumented in this encounter Care Teams Cut Off Machine Helper Relationship Specialty Start Date End Date Angeline Klein MD [address] [place] [id number] PCP - General Family Medicine 08/21/20 documented as of this encounter
--- OUTSIDE RECORDS SUMMARY | 2025-07-22 10:48 | XMS_ITS | Clinical Summary ---
Author Organization [employer] Address [address] [facility] [address] [place] [address] Care Team Providers Care Road Inspector Name Role Phone Angeline Klein MD Primary Care Provider [phone] Allergies Active Allergy Reactions Criticality Noted Date Comments Aspirin 11/07/2013 Dupilumab Other 07/25/2024 Ibuprofen 01/20/2015 Other reaction(s): Itching Methazolamide 07/11/2017 Other reaction(s): Stomach Pain Morphine 10/24/2014 Naproxen Nausea Only 12/24/2019 Nsaids 07/27/2022 Oxycodone Dizziness 07/11/2017 Other reaction(s): Other (see comments) Medications Spacer/Aero-Holdi ng Chambers (AeroChamber MV) inhaler by Other route. Use as instructed Active Flovent HFA 110 MCG/ACT inhaler Inhale 1 puff 2 times daily. 022 Active albuterol (2.5 MG/3ML) 0.083% nebulizer solution Use 3cc q6h prn sob 75 mL 1 024 Active Combivent Respimat 20-100 MCG/ACT inhaler INHALE 1 PUFF BY MOUTH FOUR TIMES DAILY. MAY TAKE ADDITIONAL PUFFS NEEDED. NOT TO EXCEED 6 PUFFS IN 24 HOURS 4 g 5 024 Active Multiple Vitamin (multivitamin) tablet Take 1 tablet by mouth Once per day. 90 tablet 3 024 Active white petrolatum gel Apply topically if needed for dry skin (on the feet). 113 g 1 025 Active estradiol (Estrace) 0.1 MG/GM vaginal cream USE 1 GRAM VAGINALLY 3 TIMES A WEEK 025 Active hydrOXYzine HCl (Atarax) 25 MG tablet Active Linzess 290 MCG capsule Take 290 mcg by mouth in the morning. Active simethicone (Mylicon) 80 MG chewable tablet Chew 80 mg at bedtime. Active nystatin (Mycostatin) 068537 UNIT/ML suspension SHAKE LIQUID AND TAKE 1 ML BY MOUTH THREE TIMES DAILY Active Miconazole 7 2 % vaginal cream INSERT 1 APPLICATORFUL VAGINALLY AT BEDTIME FOR 7 DAYS Active mirtazapine (Remeron) 7.5 MG tablet Take 1 tablet (7.5 mg) by mouth at bedtime. For appetite 90 tablet 1 2025 Active buprenorphine (Butrans) 5 MCG/HRIndications :Chronic pain after cancer treatment Place 1 patch on the skin 1 (one) time per week. 4 patch 5 2025 Active albuterol 108 (90 Base) MCG/ACT inhaler Inhale 2 puffs every 6 (six) hours if needed for wheezing. 18 g 3 Active lidocaine (Xylocaine) 5 % ointment Apply topically if needed each day. 1-3 times every day to affected areas 2024 Discontinued(T herapy completed) linaCLOtide (Linzess) 145 MCG capsule Take 1 capsule by mouth before breakfast. Every day on an empty stomach at least 30 minutes before 1st meal of the day 2024 Discontinued(T herapy completed) omeprazole OTC (PriLOSEC OTC) 20 MG EC tablet Take 1 tablet by mouth 1 (one) time each day. 021 2024 Discontinued(T herapy completed) hydrocortisone (Anusol-HC) 2.5 % rectal cream APPLY RECTALLY TO THE AFFECTED AREA 2 TO 4 TIMES A DAY FOR HEMORRHOIDS 2024 Discontinued(T herapy completed) ondansetron ODT (Zofran-ODT) 8 MG disintegrating tablet DISSOLVE 1 TABLET ON THE TONGUE EVERY 8 HOURS NEEDED FOR NAUSEA 023 2024 Discontinued(T herapy completed) omeprazole (PriLOSEC) [address] capsule Take 40 mg by mouth in the morning. 023 2024 Discontinued(T herapy completed) azithromycin (Zithromax) 250 MG tablet TAKE 2 TABLETS BY MOUTH ON THE FIRST DAY THEN 1 TABLET FOR 4 ADDITIONAL DAYS 024 2024 Discontinued(T herapy completed) dexAMETHasone (Decadron) 4 MG tablet TAKE 1 TABLET BY MOUTH TWICE DAILY ON DAY 2 AND 3 OF CHEMOTHERAPY EVERY 3 WEEKS 024 2024 Discontinued(T herapy completed) lisinopril 10 MG tabletIndications :Hypertension, unspecified type TAKE 1 AND 1/2 TABLETS BY MOUTH EVERY DAY 135 tablet 3 024 2024 Discontinued(T herapy completed) traMADol (Ultram) 50 MG tablet TAKE 1 TABLET BY MOUTH EVERY 12 HOURS NEEDED FOR BREAKTHROUGH PAIN 2024 Discontinued(T herapy completed) pravastatin (Pravachol) 40 MG tablet TAKE 1 TABLET(40 MG) BY MOUTH AT BEDTIME 90 tablet 3 024 2024 Discontinued(T herapy completed) cyanocobalamin (Vitamin B-12) 1000 MCG tabletIndications :Localized edema Take 1 tablet (1,000 mcg) by mouth Once per day. 30 tablet 11 025 2024 Discontinued(T herapy completed) gabapentin (Neurontin) 100 MG capsuleIndication s:Localized edema Take 3 capsules (300 mg) by mouth 3 times daily. 270 capsule 025 2024 Discontinued(T herapy completed) cefuroxime (Ceftin) 250 MG tablet TAKE 1 TABLET BY MOUTH TWICE DAILY FOR 9 DAYS 2024 Discontinued(T herapy completed) ciprofloxacin (Cipro) 250 MG tablet Take 1 tablet by mouth 2 times daily. 2024 Discontinued(T herapy completed) albuterol 108 (90 Base) MCG/ACT inhaler INHALE 2 PUFFS BY MOUTH EVERY 4 TO 6 HOURS NEEDED FOR SHORTNESS OF BREATH OR WHEEZING 2024 Discontinued(R eorder (will not trigger notification to Pharmacy)) hydrOXYzine pamoate (Vistaril) 25 MG capsuleIndication s:Allergic eosinophilia Take 1 capsule (25 mg) by mouth every 8 (eight) hours if needed for itching. 90 capsule 3 025 2024 Discontinued(T herapy completed) oxyCODONE (Roxicodone) 5 MG immediate release tablet 025 2024 Discontinued(T herapy completed) Active Problems Problem Noted Date Diagnosed Date Underweight 12/02/2024 Localized edema 12/02/2024 Vaginal bleeding 07/25/2024 Assessment & Plan (07/25/2024 10:02 PM EST): Noticed after chemo 07/24/24 Will discuss with pt's oncologist whether any workup is warranted, or side effect of current chemo regimen Mixed stress and urge urinary incontinence 03/19 [...] to continue Ensure due to weight loss. Slow transit constipation 09/14/2022 Assessment & Plan [...] doing better sp abs. 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 Malignant tumor of urinary bladder 04/25/2018 Assessment [...] 05/22/2012 Gastroesophageal reflux disease 05/22/2012 Hyperlipidemia 05/22/2012 Assessment & Plan (07/18/2025 10:20 AM EST): Will hold Pravastatin for now Benefit unclear and pt is malnourished and undergoing chemo with severe body pain Spondylosis 05/22/2012 Chronic obstructive pulmonary disease 02/20/2012 Assessment & Plan (12/26/2023 11:20 AM EDT): Continue inhahlers Poor functional status due to lung dz and malignancy Assessment & Plan (10/09/2022 5:56 AM EST): Continue inhahlers Poor functional status due to lung dz and malignancy Hypertension 02/20/2012 Assessment & Plan (12/26/2023 11:20 [...] Problem Noted Date Diagnosed Date Resolved Date Hospital discharge follow-up 04/03/2024 07/18/2025 Assessment & Plan (04/03/2024 8:01 PM EDT): [...] -needs VNA --request today to senior staff consultant to start process for this. -pt on ensure BID -advised to drink TID if possible -alarm signs and symptoms discussed w pt in case needs to go to ED Sore throat 01/09/2024 07/25/2024 Assessment & Plan [...] [place] [facility] [place] loss 12/22/2022 07/18/2025 Assessment & Plan (12/22/2022 1:40 PM EDT): PT reports significant weight loss over this year. I will prescribe Ensure for supplement as pt has underlying malignancy and mulitple other conditions, seems to be still losing weight. Chronic constipation 04/25/2018 025 Assessment & Plan (10/09/2022 5:56 AM EST): Continue Linzess and Colace Miralax prn Essential hypertension 02/20/201207/18 Overview (04/05/2023): Last Assessment & Plan: At goal <130/80 Continue current regimen Last Assessment & Plan: Controlled. Compliant w/meds Continue lisinopril Counseled re low salt diet/increase moderate physical activity. Check home BP BIW and prn CP/JONES/LAWLER Non smoking patient. Assessment & Plan (10/09/2022 5:56 AM EST): At goal <130/80 Continue current regimen Encounters Date Type Department Care Team Description 07/18/2025 9:00 AM EST Office Visit [address] [address] Angeline Klein MD Neck pain on left side (Primary Dx); Chronic pain after cancer treatment; Dizziness; Subclavian artery stenosis; Primary hypertension; Protein-calorie malnutrition, unspecified severity (CMS/HCC); Other hyperlipidemia; Slow transit constipation; Mixed stress and urge urinary incontinence; Malignant neoplasm of urinary bladder neck (HCC); Primary osteoarthritis of both hips; Centrilobular emphysema (HCC) 07/18/2025 Orders Only GENERIC EXTERNAL DATA DEPARTMENT Provider, Generic External Data 07/18/2025 Travel 07/17/[address] [address] Angeline Klein MD chart prep 07/14/2025 4:00 PM EST Telemedicine [address] [address] Angeline Klein MD Primary hypertension (Primary Dx); Chronic obstructive pulmonary disease, unspecified COPD type (CMS/HCC) (HCC); Underweight; Protein-calorie malnutrition, unspecified severity (CMS/HCC); Malignant neoplasm of urinary bladder neck (HCC); Mixed stress and urge urinary incontinence 07/14/2025 Travel 06/13/[address] [address] Angeline Klein MD 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/2025 Orders Only External Provider, [facility] 05/08/[address] [address] Angeline Klein MD Nurse Triage from Last 3 Months Immunizations Immunization Administration [...] 20 07/18/2025 9:07 AM EST Oxygen Saturation 97% 11/29/2024 9:40 AM EDT Inhaled Oxygen Concentration - - Weight 44.9 kg (99 lb) 07/18/2025 9:07 AM EST Height 162.6 cm (5' 4 ) 07/18/2025 9:07 AM EST Body Mass Index 16.99 07/18/2025 9:07 AM EST Plan of Treatment Health Maintenance Due Date Last Done Comments Zoster Vaccines (2 of 3) 12/19/2014 10/24/2014 DTaP/Tdap/Td Vaccines (2 - Td or Tdap) 10/02/2022 10/02/2012, 01/05/2011 Pneumococcal Vaccine: 50+ Years (2 of 2 - PCV) 12/14/2022 12/14/2021, 06/19/2014 COVID-19 Vaccine (2 - season) 2025 12/02/2020 Influenza Vaccine (#1) 2025 , 06/21/2018, 06/20/2017, Additional history exists SDOH Screening 11/29/2025 11/29/2024 Alcohol/Substance Use Screening 12/02/2025 12/02/2024 Depression Monitoring 01/11/2026 07/14/2025, 025 Lipid Panel 01/22/2026 01/22/2021, 11/30/2020 Tobacco Screening 07/18/2026 07/18/2025 Hepatitis C Screening Completed 08/22/2019 RSV Patients [...] AM EST Neck pain on left side BASIC METABOLIC PANEL Routine 07/18/2025 12:42 PM EST PROTHROMBIN TIME-INR Routine 07/18/2025 12:42 PM EST CBC WITH AUTO DIFFERENTIAL Routine 07/18/2025 12:42 PM EST IR NEPHROSTOMY TUBE CHANGE Routine 05/29/2025 4:[address] NEPHROSTOMY CATH LT Routine 05/29/2025 4:29 PM EDT LIPID PANEL, STANDARD Routine 01/22/2021 9:15 AM EDT ZZZ HISTORICAL HEPATITIS A,B,C PROFILE Routine 08/22/2019 1:30 PM EST from Last 3 Months or Most Recently Relevant to Health Maintenance Results * XR Clavicle Left (07/22/2025 9:51 AM EST) Anatomical Region Laterality Modality Body, Clavicle Left Radiographic Manju ging 07/22/2025 9:51 AM EST Narrative 07/22/2025 9:59 [place] [address] XRay Report Signed Patient: Altaf Alba MR#: [id number] 260 : 1945 Acct:[id number] Age/Sex: 79 / F ADM Date: 07/22/25 Loc: HO.HHCX Attending Dr: Angeline Klein MD Ordering Physician: Angeline Klein Date of Service: 07/22/25 Procedure(s): XR clavicle LT Accession Number(s): [id number] cc: Angeline Klein Reason for Exam: pain [...] in OV> 07/22/25955 DD/ 0 TD/TT: 07/22/25950 Arabic Translator: Procedure Note Donotuseinterpreter, Image - 07/22/[address] [address] XRay Report Signed Patient: Altaf AlbaMR#: [id number] 260 : 6Acct:[id number] Age/Sex: 79 / FADM Date: 07/22/25 Loc: HO.HHCX Attending Dr: Angeline Klein MD Ordering Physician: Angeline Klein Date of Service: 07/22/25 Procedure(s): XR clavicle LT Accession Number(s): [id number] cc: Angeline Klein Reason for Exam: pain [...] in OV> 07/22/25955 DD/ 0 TD/TT: 07/22/25950 Arabic Translator: Angeline Klein MD IMG XR PROCEDURES Edited Resul t - Final * (ABNORMAL) CBC auto differential (07/18/2025 12:42 PM EST) White Blood Count 7.3 4.8 - 10.8 X10*3/uL LABS Red Blood Count 4.03(L) 4.20 - 5.50 X10*6/uL LABS Hemoglobin 10.3(L) 12.0 - 16.0 g/dl LABS Hematocrit 34.0(L) 37.0 - 47.0 % LABS Mean Corpuscular Volume 84.4 80.0 - 98.0 fL LABS Mean Corpuscular Hemoglobin 25.6(L) 27.0 - 33.0 pg LABS Mean Corpuscular HGB Conc 30.3(L) 31.0 - 35.0 g/dl LABS Red Cell Distribution Width 17.3(H) 11.0 - 16.0 % LABS Platelet Count 487(H) 160 - 400 X10*3/uL LABS Mean Platelet Volume 9.9 9.4 - 12.3 fL LABS Neutrophils Percent Auto 67.5 45 - 73 % LABS Imm Gran Pct Auto 0.3 0.0 - 0.4 % LABS Lymphocytes Percent Auto 21.9 20 - 40 % LABS Monocytes Percent Auto 9.8 2 - 11 % LABS Eosinophils Percent Auto 0.1 0 - 4 % LABS Basophils Percent Auto 0.4 0 - 2 % LABS NRBC Pct Auto 0.0 0.0 - 0.2 /100WBC LABS Neutrophils Absolute Auto 5.0 2.0 - 8.3 x10*3/uL LABS Imm Gran Abs Auto 0.02 0.00 - 0.03 X10*3/uL LABS Lymphocytes Absolute Auto 1.6 1.2 - 4.9 X10*3/uL LABS Monocytes Absolute Auto 0.7 0.1 - 1.2 X10*3/uL LABS Eosinophils Absolute Auto 0.0 0.0 - 0.4 X10*3/uL LABS Basophils Absolute Auto 0.0 0.0 - 0.2 X10*3/uL LABS NRBC Abs Auto 0.000 0.0 - 0.012 X10*3/uL LABS 07/18/2025 12:4 2 PM EST 07/18/2025 12:45 PM EST Generic External Data Provider LAB BLOOD ORDERAB LES Final Result Performing Organization Address [facility] Co de Phone Number LABS [address] [place] [phone] * Prothrombin Time-INR (07/18/2025 12:42 PM EST) Prothrombin Time 12.9 11.2 - 13.5 SEC LABS INTERNATIONAL NORM RATIO 1.1 0.9 - 1.1 LABS Comment:INTERNATIONAL NORMAL IZED RATIO (INR) REFERENCE RANGES Reference RangeFor patients not on anticoagulant therapy: 0.9 - 1.1INR ranges for oral anticoagulanttherapy:For prevention and treatment of venous thrombosis and pulmonary embolism: 2.0 - 3.0For acute myocardial infarction with aspirin therapy: 2.0 - 3.0For acute myocardial infarction without aspirin therapy: 3.0 - 4.0For patients with mechanical prosthetic heart valves: 2.5 - 3.5 07/18/2025 12:4 2 PM EST 07/18/2025 12:45 PM EST [employer] External Data Provider LAB BLOOD ORDERAB LES Final Result Performing Organization Address [facility] Co de Phone Number LABS [address] [place] [phone] * (ABNORMAL) Basic Metabolic Panel (07/18/2025 12:42 PM EST) Sodium 140 135 - 145 mmol/L LABS Potassium 4.9 3.3 - 5.1 mmol/L LABS Chloride 107 96 - 108 mmol/L LABS Carbon Dioxide 27 22 - 29 mmol/L LABS Anion Gap 11(L) 12 - 20 LABS Urea Nitrogen (BUN) 39(H) 9 - 16 mg/dL LABS Creatinine, Serum 1.15 0.5 - 1.4 mg/dL LABS Creatinine Clr Calc Pharmacy 29.0 LABS Comment:Provided height and weight: 162.56 cm,45.6 kg.eGFR (calculated from the MDRD study equation) and eCrCl(calculated from the Cockcroft-Gault equation) are based ondifferent parameters and may not yield comparable results.If eCrCl result is absurd, please check patient'sheight/weight. Estimated Glomerular Filt Rate 46 LABS Comment:Chronic Kidney Disea se: Estimated GFR < 60 mL/min/1.67j1Zcfecn Kidney Disease: Estimated GFR < 15 mL/min/1.73m2 Glucose 83 60 - 115 mg/dL LABS Calcium 9.3 8.4 - 10.2 mg/dL LABS 07/18/2025 12:4 2 PM EST 07/18/2025 12:45 PM EST us Generic External Data Provider LAB BLOOD ORDERAB LES Final Result LABS [address] [place] [phone] * IR Place Nephrostomy Cath Left (05/29/2025 4:29 PM EDT) Anatomical Region Laterality Modality X-Ray Angiograph y 05/29/2025 4:29 PM EDT Narrative 06/03/2025 5:11 PM EDT [place] [address] Interventional Radiology Rpt Signed Patient: Altaf Alba MR#: [id number] 260 : 1945 Acct:[id number] Age/Sex: 79 / F ADM Date: 05/29/25 Loc: HO.ED Attending Dr: Ordering Physician: Wen Belle Date of Service: 05/29/25 Procedure(s): IR nephrostomy via cath Accession Number(s): [id number] cc: Angeline Klein; Wen Belle Reason for Exam: tube replacement EXAMINATION: XR NEPHROSTOMY TUBE REPLACEMENT, left CLINICAL INFORMATION: FLUOROSCOPIC LEFT SIDED NEPHROSTOMY TUBE REPLACEMENT History: Patient with bilateral nephrostomy tubes due to bladder cancer and ureteral obstruction. Patient presents for replacement of left-sided nephrostomy tube that fell out. Procedure: Patient was informed and consented to the procedure. The patient's back was prepped and draped in routine sterile fashion. 1% buffered lidocaine was used as anesthetic around the insertion site. A 0.018 guidewire was inserted into the pre-existing tract. A new 8 Mozambican locking pigtail catheter was advanced over the wire. The wire was removed. 5 mL of contrast was injected to ensure proper positioning of the catheter in the renal pelvis. A 3-0 Ethilon suture was used to secure the catheters to the skin. A bag was attached and draining urine by gravity. A sterile dressing was applied. The patient tolerated the procedure well. The patient will be transferred to the postanesthesia care unit. The patient was continuously monitored by a dedicated nurse including their vital signs. Total fluoroscopy time was 0.8. Medications: Lidocaine 1% jelly and subcutaneously IR/IR nephrostomy via cath IMPRESSION: Successful replacement of left-sided Nephrostomy tube This procedure performed by David Sheehan NP, and supervised by Sesar Casarez M.D. Electronically signed by: Sesar Casarez MD 06/03/2025 05:07 PM EDT Workstation: [id number] Dictated By: David Sheehan NP Signed By: <Electronically signed by David Sheehan in OV> 06/03/25 1707 <Electronically signed by Sesar Casarez MD in OV> 06/03/25 1710 DD/ 1629 TD/TT: 05/29/25 1659 Arabic Translator: Procedure Note Donotuseinterpreter, Image - 06/04/[address] [place] [address] Interventional Radiology Rpt Signed Patient: Altaf AlbaMR#: [id number] 260 : 6Acct:[id number] Age/Sex: 79 / FADM Date: 05/29/25 Loc: .ED Attending Dr: Ordering Physician: Wen Belle Date of Service: 05/29/25 Procedure(s): IR nephrostomy via cath Accession Number(s): [id number] cc: Angeline Klein; Wen Belle Reason for Exam: tube replacement EXAMINATION: XR NEPHROSTOMY TUBE REPLACEMENT, left CLINICAL INFORMATION: FLUOROSCOPIC LEFT SIDED NEPHROSTOMY TUBE REPLACEMENT History: Patient with bilateral nephrostomy tubes due to bladder cancer and ureteral obstruction. Patient presents for replacement of left-sided nephrostomy tube that fell out. Procedure: Patient was informed and consented to the procedure. The patient's back was prepped and draped in routine sterile fashion. 1% buffered lidocaine was used as anesthetic around the insertion site. A 0.018 guidewire was inserted into the pre-existing tract. A new 8 Mozambican locking pigtail catheter was advanced over the wire. The wire was removed. 5 mL of contrast was injected to ensure proper positioning of the catheter in the renal pelvis. A 3-0 Ethilon suture was used to secure the catheters to the skin. A bag was attached and draining urine by gravity. A sterile dressing was applied. The patient tolerated the procedure well. The patient will be transferred to the postanesthesia care unit. The patient was continuously monitored by a dedicated nurse including their vital signs. Total fluoroscopy time was 0.8. Medications: Lidocaine 1% jelly and subcutaneously IR/IR nephrostomy via cath IMPRESSION: Successful replacement of left-sided Nephrostomy tube This procedure performed by David Sheehan NP, and supervised by Sesar Casarez M.D. Electronically signed by: Sesar Casarez MD 06/03/2025 05:07 PM EDT Workstation: [id number] Dictated By: David Sheehan NP Signed By: <Electronically signed by David Sheehan in OV> 06/03/25 1707 <Electronically signed by Sesar Casarez MD in OV> 06/03/25 1710 DD/ 1629 TD/TT: 05/29/25 1659 Arabic Translator: [facility] External Provider IMG IR PROCEDURES Final Result * IR Nephrostomy Tube Change (05/29/2025 4:29 PM EDT) Anatomical Region Laterality Modality Body X-Ray Angiograph y 05/29/2025 4:29 PM EDT Narrative 06/10/2025 2:49 PM EDT [address] [address] Interventional Radiology Rpt Signed Patient: Altaf Alba MR#: [id number] 260 : 1945 Acct:[id number] Age/Sex: 79 / F ADM Date: 05/29/25 Loc: .ED Attending Dr: Ordering Physician: Wen Belle Date of Service: 05/29/25 Procedure(s): IR nephrostomy tube change Accession Number(s): [id number] cc: Anegline Klein; Wen Belle Reason for Exam: tube replacement EXAMINATION: XR NEPHROSTOMY TUBE REPLACEMENT, left CLINICAL INFORMATION: FLUOROSCOPIC LEFT SIDED NEPHROSTOMY TUBE REPLACEMENT History: Patient with bilateral nephrostomy tubes due to bladder cancer and ureteral obstruction. Patient presents for replacement of left-sided nephrostomy tube that fell out. Procedure: Patient was informed and consented to the procedure. The patient's back was prepped and draped in routine sterile fashion. 1% buffered lidocaine was used as anesthetic around the insertion site. A 0.018 guidewire was inserted into the pre-existing tract. A new 8 Mozambican locking pigtail catheter was advanced over the wire. The wire was removed. 5 mL of contrast was injected to ensure proper positioning of the catheter in the renal pelvis. A 3-0 Ethilon suture was used to secure the catheters to the skin. A bag was attached and draining urine by gravity. A sterile dressing was applied. The patient tolerated the procedure well. The patient will be transferred to the postanesthesia care unit. The patient was continuously monitored by a dedicated nurse including their vital signs. Total fluoroscopy time was 0.8. Medications: Lidocaine 1% jelly and subcutaneously IR/IR nephrostomy via cath IMPRESSION: Successful replacement of left-sided Nephrostomy tube This procedure performed by David Sheehan NP, and supervised by Sesar Casarez M.D. Electronically signed by: Sesar Casarez MD 06/03/2025 05:07 PM EDT RP Workstation: [id number] Dictated By: David Sheehan NP Signed By: 06/10/25 1419 DD/ 1629 TD/TT: 05/29/25 1659 Arabic Translator: Procedure Note Donotuseinterpreter, Image - 06/10/2025 [place] [address] Interventional Radiology Rpt Signed Patient: Altaf AlbaMR#: [id number] 260 : 6Acct:[id number] Age/Sex: 79 / FADM Date: 05/29/25 Loc: .ED Attending Dr: Ordering Physician: Wen Belle Date of Service: 05/29/25 Procedure(s): IR nephrostomy tube change Accession Number(s): [id number] cc: Angeline Klein; Wen Belle Reason for Exam: tube replacement EXAMINATION: XR NEPHROSTOMY TUBE REPLACEMENT, left CLINICAL INFORMATION: FLUOROSCOPIC LEFT SIDED NEPHROSTOMY TUBE REPLACEMENT History: Patient with bilateral nephrostomy tubes due to bladder cancer and ureteral obstruction. Patient presents for replacement of left-sided nephrostomy tube that fell out. Procedure: Patient was informed and consented to the procedure. The patient's back was prepped and draped in routine sterile fashion. 1% buffered lidocaine was used as anesthetic around the insertion site. A 0.018 guidewire was inserted into the pre-existing tract. A new 8 Mozambican locking pigtail catheter was advanced over the wire. The wire was removed. 5 mL of contrast was injected to ensure proper positioning of the catheter in the renal pelvis. A 3-0 Ethilon suture was used to secure the catheters to the skin. A bag was attached and draining urine by gravity. A sterile dressing was applied. The patient tolerated the procedure well. The patient will be transferred to the postanesthesia care unit. The patient was continuously monitored by a dedicated nurse including their vital signs. Total fluoroscopy time was 0.8. Medications: Lidocaine 1% jelly and subcutaneously IR/IR nephrostomy via cath IMPRESSION: Successful replacement of left-sided Nephrostomy tube This procedure performed by David Sheehan NP, and supervised by Sesar Casarez M.D. Electronically signed by: Sesar Casarez MD 06/03/2025 05:07 PM EDT RP Workstation: [id number] Dictated By: David Sheehan NP Signed By:06/10/25 1419 DD/ 1629 TD/TT: 05/29/25 7269 Arabic Translator: [facility] External Provider IMG IR PROCEDURES Final Result * LIPID PANEL, STANDARD (01/22/2021 9:15 AM EDT) Chol/HDLC Ratio 2.8 <5.0 (calc) [facility] Cholesterol, Total 179 <200 mg/dL [facility] HDL Cholesterol 63 > OR = 50 mg/dL [facility] LDL Cholesterol 95 mg/dL (calc) [facility] Comment: Reference range: <100 Desirable range <100 mg/dL for primary prevention; <70 mg/dL for patients with CHD or diabetic patients with > or = 2 CHD risk factors. LDL-C is now calculated using the Timoteo-Nguyễn calculation, which is a validated novel method providing better accuracy than the Friedewald equation in the estimation of LDL-C. Timoteo SS et al. SHARYN. 2013;310(19): 2801-6932 (http://education.Tyche.com/faq/VAR483) Non-HDL Cholesterol 116 <130 mg/dL (calc) [facility] Comment: For patients with diabetes plus 1 major ASCVD risk factor, treating to a non-HDL-C goal of <100 mg/dL (LDL-C of <70 mg/dL) is considered a therapeutic option. Triglycerides 116 <150 mg/dL [facility] 01/22/2021 9:15 AM EDT Angeline Klein MD LAB BLOOD ORDERABLES Final Res ult Performing Organization Address [facility] Co de Phone Number [facility] [address] * HEPATITIS A,B,C PROFILE (08/22/2019 1:30 [...] infection. 08/22/2019 1:30 PM EST Historical Provider MD HISTORICAL/NON ORDERABLE LABS Final Result Performing Organization Address [facility] de Phone Number [facility] [address] from Last 3 Months or Most Recently Relevant to Health Maintenance Insurance [facility] [employer] (HMO D-SNP) YAMIL BRENNER [id number] Inspector Relationship Specialty Start Date End Date Angeline Klein MD [address] [place] [address] PCP - General Family Medicine 08/21/20
--- OUTSIDE RECORDS SUMMARY | 2025-07-22 10:48 | XMS_ITS | Encounter Summary ---
Author Organization [employer] Address [address] [facility] 7t [place] [address] Care Team Providers Care Creping Machine Operator Helper Name Role Phone Angeline Klein MD Primary Care Provider [phone] Encounter Details Date Type Department Care Team ([facility] st Contact Info) Description 09/23/2022 Telephone [facility] MEDICINE 230 [place], [place] [phone] Angeline Klein MD [address] [place], [place] [phone] Social History Tobacco Use Types Packs/Day Years [...] on filedocumented in this encounter Care Teams Creping Machine Operator Helper Relationship Specialty Start Date End Date Angeline Klein MD [address] [place] [address] PCP - General Family Medicine 08/21/20 documented as of this encounter
--- OUTSIDE RECORDS SUMMARY | 2025-07-22 10:48 | XMS_ITS | Encounter Summary ---
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
--- OUTSIDE RECORDS SUMMARY | 2025-07-22 10:48 | XMS_ITS | Clinical Summary ---
Author Organization [facility] Address [address] [place] [address] Phone Care Team Providers Care Mine Inspector Name Role Phone Unavailable Primary Care Provider [...] It is not the complete legal health record.[facility]
--- OUTSIDE RECORDS SUMMARY | 2025-07-22 10:48 | XMS_ITS | Encounter Summary ---
Author Organization [employer] Address [address] [facility] 7t [place] [address] Care Team Providers Care Filler Leaf Cutter Long Name Role Phone Angeline Klein MD Primary Care Provider [phone] Encounter Details Date Type Department Care Team (Latest Contact Info) Description 07/18/2025 Travel Social History Tobacco Use Types Packs/Day [...] documented as of this encounter Care Teams Filler Leaf Cutter Long Relationship Specialty Start Date End Date Angeline Klein MD 230 [place] [address] PCP - General Family Medicine 08/21/20 documented as of this encounter
--- OUTSIDE RECORDS SUMMARY | 2025-07-22 10:48 | XMS_ITS | Encounter Summary ---
Author Organization [employer] Address [address] [facility] 7t [place] [address] Care Team Providers Care Manager Foreign Name Role Phone Angeline Klein MD Primary Care Provider [phone] Encounter Details Date Type Department Care Team (Late st Contact Info) Description 04/12/2024 Orders Only [facility] MEDICINE 230 [place] [address] Guadalupe Garrido MD 230 [place] [address] Social History Tobacco Use Types Packs/Day Years [...] as of this encounter Care Teams Manager Foreign Relationship Specialty Start Date End Date Angeline Klein MD 230 [place] [address] PCP - General Family Medicine 08/21/20 documented as of this encounter
--- OUTSIDE RECORDS SUMMARY | 2025-07-22 10:48 | XMS_ITS | Encounter Summary ---
Author Organization [employer] Address [address] [facility] 7t [place] [address] Care Team Providers Care Apns Name Role Phone Angeline Klein MD Primary Care Provider [phone] Reason for Visit * Reason Onset Date Comments chart prep 07/17/2025 Encounter Details Date Type Department Care Team ([facility] st Contact Info) Description 07/17/2025 Telephone [facility] MEDICINE 230 [place] [address] Angeline Klein MD 230 [place] [address] chart prep Social History Tobacco Use Types Packs/Day Years [...] the past 12 months, has t he [employer], oil or water [employer] threatened to shut off services in your [...] encounter Miscellaneous Notes * Telephone Encounter - Cierra Schneider [place] - 07/17/2025 11:38 AM EST Chart Prep Labs: done Images: done Referrals: complete Vaccines due: Flu, PCV20, Tdap, and Zoster Screenings: not applicable Overdue care gaps: PHQ-9 and CHERELLE-7 documented in this encounter Plan of Treatment Not on file documented as of this encounter Visit Diagnoses Not on filedocumented in this encounter Additional Health Concerns Assessment Noted Time PHQ-9 Depression Total Score: 12 025 4:16 PM EST documented as of this encounter Care Teams Apns Relationship Specialty Start Date End Date Angeline Klein MD [address] [place] [address] PCP - General Family Medicine 08/21/20 documented as of this encounter
--- OUTSIDE RECORDS SUMMARY | 2025-07-22 10:48 | XMS_ITS | Encounter Summary ---
Author Organization [employer] Address [address] [facility] 7t [place] [address] Care Team Providers Care Truck Mechanic Apprentice Name Role Phone Angeline Klein MD Primary Care Provider [phone] Reason for Visit * Reason Onset Date Comments Med Refill 12/20/2024 Encounter Details Date Type Department Care Team ([facility] st Contact Info) Description 12/20/2024 Telephone [facility] MEDICINE 230 [place] [address] Angeline Klein MD 230 [place] [address] Med Refill Social History Tobacco Use Types [...] the past 12 months, has t he [employer], gas, oil or water company threatened to [...] 25 MG tablet To be sent to: [id number] - [place] - [address] [facility] documented in this encounter Plan of Treatment Not on file documented as of this encounter Visit Diagnoses Not on filedocumented in this encounter Additional Health Concerns Assessment Noted Time PHQ-9 Depression Total Score: 4 12/26/19 24 10:32 AM EDT documented as of this encounter Care Teams Truck Mechanic Apprentice Relationship Specialty Start Date End Date Angeline Klein MD [address] [place] [address] [place] [id number] PCP - General Family Medicine 08/21/20 documented as of this encounter
--- OUTSIDE RECORDS SUMMARY | 2025-07-22 10:48 | XMS_ITS | Encounter Summary ---
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
--- OUTSIDE RECORDS SUMMARY | 2025-07-22 10:48 | XMS_ITS | Encounter Summary ---
Author Organization [employer] Address [address] [facility] 7t [place] [address] Care Team Providers Care Videotape Recording Engineer Name Role Phone Angeline Klein MD Primary Care Provider [phone] Encounter Details Date Type Department Care Team (Late st Contact Info) Description 08/01/2022 Abstract [facility] MEDICINE 230 [place], [place] [phone] Angeline Klein MD [address] [place] [address] Social History Tobacco Use Types Packs/Day Years [...] on filedocumented in this encounter Care Teams Videotape Recording Engineer Relationship Specialty Start Date End Date Angeline Klein MD [address] [place], [place] [phone] PCP - General Family Medicine 08/21/20 documented as of this encounter
--- OUTSIDE RECORDS SUMMARY | 2025-07-22 10:48 | XMS_ITS | Encounter Summary ---
Author Organization [employer] Address [address] [place] [address] 7t [place] [address] Care Team Providers Care Outside Sales Name Role Phone Angeline Klein MD Primary Care Provider [phone] Reason for Visit * Reason Onset Date Comments Appointment Request 05/22/2023 Encounter Details Date Type Department Care Team ([facility] st Contact Info) Description 05/22/2023 Telephone [facility] MEDICINE 230 [place] [address] Angeline Klein MD [address] [place] [address] Appointment Request Social History Tobacco Use Types [...] @ 2:30 pm. Please contact pt at [phone] documented in this encounter Plan of Treatment Not on file documented as of this encounter Visit Diagnoses Not on filedocumented in this encounter Care Teams Outside Sales Relationship Specialty Start Date End Date Angeline Klein MD [address] [place] [phone] PCP - General Family Medicine 08/21/20 documented as of this encounter
--- OUTSIDE RECORDS SUMMARY | 2025-07-22 10:48 | XMS_ITS | Encounter Summary ---
Author Organization [employer] Address [address] [facility] 7t [place] [address] Care Team Providers Care Husbandry Person Name Role Phone Angeline Klein MD Primary Care Provider [phone] Encounter Details Date Type Department Care Team (Late st Contact Info) Description 05/10/2024 Orders Only [facility] MEDICINE 230 [place], [place] [phone] Angeline Klein MD 230 [place] [address] Oral thrush (Primary Dx) Social History Tobacco [...] documented as of this encounter Care Teams Husbandry Person Relationship Specialty Start Date End Date Angeline Klein MD [address] [place] [phone] PCP - General Family Medicine 08/21/20 documented as of this encounter
--- OUTSIDE RECORDS SUMMARY | 2025-07-22 10:48 | XMS_ITS | Encounter Summary ---
Author Organization [employer] Address [address] [facility] 7t [place] [address] Care Team Providers Care Global Marketing Coordinator Name Role Phone Angeline Klein MD Primary Care Provider [phone] Reason for Visit * Reason Onset Date Comments Nurse Triage 03/29/2024 Encounter Details Date Type Department Care Team ([facility] st Contact Info) Description 03/29/2024 Telephone [facility] MEDICINE 230 [place] [address] Angeline Klein MD [address] [place] [address] Nurse Triage Social History Tobacco Use Types [...] 03/29/2024 3:15 PM EDT Triage call with [place] [employer] [place] [id number] Pt reports fatigue for last 3 days. [...] and prevent falls. ASK apt with Dr. Micheal Au 04/03/24 @ 1000am. Insurance is verified [...] Reason: Caller denied all higher acuity questions Togolese Speaker (Accepted Wood Finisher) documented in this encounter Plan of Treatment Not on file documented as of this encounter Visit Diagnoses Not on filedocumented in this encounter Additional Health Concerns Assessment Noted Time PHQ-9 Depression Total Score: 4 12/26/19 24 10:32 AM EDT documented as of this encounter Care Teams Global Marketing Coordinator Relationship Specialty Start Date End Date Angeline Klein MD [address] [place] [address] PCP - General Family Medicine 08/21/20 documented as of this encounter
--- OUTSIDE RECORDS SUMMARY | 2025-07-22 10:48 | XMS_ITS | Encounter Summary ---
Author Organization [employer] Address [address] [facility] 7t [place] [address] Care Team Providers Care Filler In Name Role Phone Angeline Klein MD Primary Care Provider [phone] Encounter Details Date Type Department Care Team (Late st Contact Info) Description 03/19/2024 Orders Only [facility] MEDICINE 230 [place], [place] [phone] Angeline Klein MD 230 [place] [address] Mixed stress and urge urinary incontinence (Primary [...] as of this encounter Care Teams Filler In Relationship Specialty Start Date End Date Angeline Klein MD [address] [place] [address] PCP - General Family Medicine 08/21/20 documented as of this encounter
--- OUTSIDE RECORDS SUMMARY | 2025-07-22 10:48 | XMS_ITS | Encounter Summary ---
Author Organization [employer] Address [address] [facility] 7t [place] [address] Care Team Providers Care Sports Photographer Name Role Phone Angeline Klein MD Primary Care Provider [phone] Encounter Details Date Type Department Care Team (Late st Contact Info) Description 07/18/2025 Orders Only GENERIC EXTERNAL DATA DEPARTMENT [...] Procedure Name Priority Date/Time Associated Diagnosis Comments CBC WITH AUTO DIFFERENTIAL Routine 07/18/2025 12:42 PM EST PROTHROMBIN TIME-INR Routine 07/18/2025 12:42 PM EST BASIC METABOLIC PANEL Routine 07/18/2025 12:42 PM EST documented in this encounter Results * (ABNORMAL) Basic Metabolic Panel (07/18/2025 12:42 PM EST) Sodium 140 135 - 145 mmol/L [facility] Potassium 4.9 3.3 - 5.1 mmol/L [facility] Chloride 107 96 - 108 mmol/L [facility] Carbon Dioxide 27 22 - 29 mmol/L [facility] Anion Gap 11(L) 12 - 20 [facility] Urea Nitrogen (BUN) 39(H) 9 - 16 mg/dL [facility] Creatinine, Serum 1.15 0.5 - 1.4 mg/dL [facility] Creatinine Clr Calc Pharmacy 29.0 [facility] Comment:Provided height and weight: 162.56 cm,45.6 kg.eGFR (calculated from the MDRD study equation) and eCrCl(calculated from the Cockcroft-Gault equation) are based ondifferent parameters and may not yield comparable results.If eCrCl result is absurd, please check patient'sheight/weight. Estimated Glomerular Filt Rate 46 [facility] Comment:Chronic Kidney Disea se: Estimated GFR < 60 mL/min/1.19o3Riiheg Kidney Disease: Estimated GFR < 15 mL/min/1.73m2 Glucose 83 60 - 115 mg/dL [facility] Calcium 9.3 8.4 - 10.2 mg/dL [facility] 07/18/2025 12:4 2 PM EST 07/18/2025 12:45 PM EST us Generic External Data Provider LAB BLOOD ORDERAB LES Final Result [facility] [address] [place] [address] [phone] * Prothrombin Time-INR (07/18/2025 12:42 PM EST) Prothrombin Time 12.9 11.2 - 13.5 SEC [facility] INTERNATIONAL NORM RATIO 1.1 0.9 - 1.1 [facility] Comment:INTERNATIONAL NORMAL IZED RATIO (INR) [...] Provider LAB BLOOD ORDERAB LES Final Result [facility] [address] [place] [address] [phone] * (ABNORMAL) CBC auto differential (07/18/2025 12:42 PM EST) White Blood Count 7.3 4.8 - 10.8 X10*3/uL [facility] Red Blood Count 4.03(L) 4.20 - 5.50 X10*6/uL [facility] Hemoglobin 10.3(L) 12.0 - 16.0 g/dl [facility] Hematocrit 34.0(L) 37.0 - 47.0 % [facility] Mean Corpuscular Volume 84.4 80.0 - 98.0 fL [facility] Mean Corpuscular Hemoglobin 25.6(L) 27.0 - 33.0 pg [facility] Mean Corpuscular HGB Conc 30.3(L) 31.0 - 35.0 g/dl [facility] Red Cell Distribution Width 17.3(H) 11.0 - 16.0 % [facility] Platelet Count 487(H) 160 - 400 X10*3/uL [facility] Mean Platelet Volume 9.9 9.4 - 12.3 fL [facility] Neutrophils Percent Auto 67.5 45 - 73 % [facility] Imm Gran Pct Auto 0.3 0.0 - 0.4 % [facility] Lymphocytes Percent Auto 21.9 20 - 40 % [facility] Monocytes Percent Auto 9.8 2 - 11 % [facility] Eosinophils Percent Auto 0.1 0 - 4 % [facility] Basophils Percent Auto 0.4 0 - 2 % [facility] NRBC Pct Auto 0.0 0.0 - 0.2 /100WBC [facility] Neutrophils Absolute Auto 5.0 2.0 - 8.3 x10*3/uL [facility] Imm Gran Abs Auto 0.02 0.00 - 0.03 X10*3/uL [facility] Lymphocytes Absolute Auto 1.6 1.2 - 4.9 X10*3/uL [facility] Monocytes Absolute Auto 0.7 0.1 - 1.2 X10*3/uL [facility] Eosinophils Absolute Auto 0.0 0.0 - 0.4 X10*3/uL [facility] Basophils Absolute Auto 0.0 0.0 - 0.2 X10*3/uL [facility] NRBC Abs Auto 0.000 0.0 - 0.012 X10*3/uL [facility] 07/18/2025 12:4 2 PM EST 07/18/2025 12:45 PM EST us Generic External Data Provider LAB BLOOD ORDERAB LES Final Result [facility] [address] [place] [address] [phone] documented in this encounter Visit Diagnoses Not on filedocumented in this encounter Additional Health Concerns Assessment Noted Time PHQ-9 Depression Total Score: 12 025 4:16 PM EST documented as of this encounter Care Teams Sports Photographer Relationship Specialty Start Date End Date Angeline Klein MD [address] [place] [phone] PCP - General Family Medicine 08/21/20 documented as of this encounter
--- OUTSIDE RECORDS SUMMARY | 2025-07-22 10:48 | XMS_ITS | Encounter Summary ---
Author Organization [employer] Address [address] [place] [address] 7t [place] [address] Care Team Providers Care Sales Representative Health Insurance Name Role Phone Angeline Klein MD Primary Care Provider [phone] Encounter Details Date Type Department Care Team (Late st Contact Info) Description 02/01/2023 Abstract [facility] MEDICINE 230 [place], [place] [phone] Angeline Klein MD [address] [place] [address] Social History Tobacco Use Types Packs/Day Years [...] on filedocumented in this encounter Care Teams Sales Representative Health Insurance Relationship Specialty Start Date End Date Angeline Klein MD [address] [place], [place] [phone] PCP - General Family Medicine 08/21/20 documented as of this encounter
== END 2025-07-22 09:37 | disposition home or self-care (01) ==
LOC: HO.HHCX 09:36
PROVIDERS: PCP General Practice; Visit Provider General Practice
DX: M54.2 Cervicalgia (principal)
CPT/HCPCS: 73000

== ENCOUNTER → 2025-07-22 09:40 | Outpatient (BNV) | payer OTHER, SELFPAY | PROVIDERS: PCP General Practice; Visit Provider Radiology Diagnostic Radiology | DX: M54.2 Cervicalgia (principal) | CPT/HCPCS: 73000 ==

== ENCOUNTER 2025-08-15 10:50 | Day surgery (SDC) | payer OTHER, SELFPAY ==
--- OUTSIDE RECORDS SUMMARY | 2025-07-25 10:31 | XMS_ITS | Clinical Summary ---
Author Organization [facility] Address [address] [facility] [address] [place] [address] Phone Care Team Providers Care Commercial Service Technician Name Role Phone Unavailable Primary Care Provider [...] It is not the complete legal health record.[facility]
--- OUTSIDE RECORDS SUMMARY | 2025-07-25 10:31 | XMS_ITS | Data Portability ---
Author Organization [facility] [employer], [facility] Medical [facility] Address [address] [place] [phone] Care Team Providers Care Rib Puller Name Role Phone HIM CCA OTHER Unavailable OTHER STEPHANIE COATS Primary Care Provider Assessment No assessment recorded. Plan of Treatment Reminders Order Date Submit Date Provider Last Modified By Organization Details Last Modified Time Details Appointments None recorded. Lab rapid strep group A, throat [facility]23 [facility] [address] [place] [address], [id number] 12:54:14 Referral None recorded. Procedures None recorded. Surgeries None recorded. Imaging None recorded. Medication Orders nystatin 100,000 unit/mL oral suspension 2023 024 [id number], [address] [place], [place], [id number], 4 12:54:22 Patient TargetsNo targets recorded. Patient InstructionsNo instructions recorded. Reason for Referral None Reported. Results Created Date Observation Date Name Description Value Unit Range Abnormal Flag Note LastModifiedBy Organization Detail LastModifiedTime 02/12/20 24 02/12/2024 rapid strep group A, throa t Strep negati ve Not Available [address], [phone] 02/12/2024 12:52:54 Result Notes None recorded. Medical [...] Not available Not available Not available 04/10/2024 [id number] 02 RxNorm COLLEEN IVAN MD [address] [place] [address],[address], [place], [phone], [facility], [facility] [facility] 4 09:07:46 5743 naproxen medicatio n Not available Not available Not available 04/10/2024 7258 RxNorm COLLEEN IVAN MD [address] [place] [address],[address], [place], [phone], [facility] - [facility] 4 09:08:04 5744 oxycodone medicatio n Not available Not available Not available 04/10/2024 7804 RxNorm COLLEEN IVAN MD [address] [place] [address],[address], [place], [address], Apieron - [facility], [employer] 4 09:08:18 Medications Name Sig Start Date [...] [degF] 105 /min 106/66 mm[Hg] Not Available [facility] - [facility] 4 10:22:14 Date Recorded Oxygen saturation Oxygen saturation in Arterial blood by Pulse oximetry Body temperature Body weight Heart rate Body height Respiratory rate Systolic And Diastolic Provider Name and Address Organization Details Last Updated DateTime 4 98 % 98 % 99.1 [degF] 41425 g 90 /min 152.4 cm 14 /min 120/80 mm[Hg] Not Available [facility] 4 09:29:14 Social History None recorded. Functional Status None recorded. Mental Status None recorded. Family History Nothing Reported. Medical History No medical history recorded. Gynecological HistoryNo gynecological history recorded. Obstetrics History GPAL:G 0 P 0 0 0 0 Past Encounters Encounter ID Performer Location Encounter Start Date Encounter Closed Date Diagnosis/Indication Diagnosis SNOMED-CT Code Diagnosis ICD10 Code Diagnosis IMO Codes Diagnosis Note [id number] Dominick Walker MD Main - [facility] [address] [place] [phone] 02/12/2024 10:22:08 02/12/2024 16:37:24 Candidiasis of mouth 41375966 B37.0 Sent out for rapid strep and refill of Nystatin. [id number] COLLEEN IVAN MD Main - [facility] [address] [place] [phone] 04/10/2024 09:28:55 04/10/2024 11:00:49 Attention to nephrostomy tube 352459097 Z43.6 Evaluation in the field was performed by my sole tier colleague, as noted above, I provided real-time direction and supervisio n for this visit. The evaluation revealed a 78-year-ol d female, status post bilateral nephrostom y tube placement on the or 17 of March, with concerns that the dressing has not been changed since. She denies bleeding, drainage, fever, chills, nausea, and vomiting. Per discussion with the patient via a German interprete r, she reports that she has a telehealth visit with Urology on April 12. VSS.Per discussion and per photo view, dressing in place, dry, clean with no urine or blood saturation Impression :B/L nephrostom y tube in place Plan:Since the dressing was intact, the sole tier did not feel comfortabl e changing it [...] Brooks Member ID Guarantor Name 06/05/2025 1 [facility] - DOS ON OR AFTER 2022 - DUAL ELIGIBLE - GROUP HOME OPTIONS AND ONE CARE (MEDICARE REPLACEMENT/ADV ANTAGE - HMO) Altaf Alba [id number] Altaf Alba Notes Date Note Type Note [...] in clear full sentences. Pt seen at [facility] 01/08 for similar sx and given Nystatin for thrush as has hx of this. Pt unable to come into office. Pt agrees to [facility] for eval. ................... ................... ................... ................... ................... ................... ................... ........ CRC Nurse Triage Notes (Marilia Bee): Comments: CRC RN DID NOT NEED FURTHER INFO Fittings Finisher POC Test Results from Yovany Sesay BLAIR Rapid strep test (1) [10:30] Strep: - ................... ................... ................... ................... ................... ................... ................... ........ Fittings Finisher Note From Yovany Sesay: Pt reports off [...] exam. No LE edema. Rapid strep negative. [facility] contacted and will send nystatin rx to pharmacy. Pt instructed to f/u with PCP as they requested. Red flags reviewed. ................... ................... ................... ................... ................... ................... ................... ........ Disposition: Fulfilled Dominick Walker MD [address] [facility],[address], [place], [phone], [employer] 02/12/2024 12:54:18 04/10/2024 text/html ROS as noted in the HPI CRC Nurse Triage Notes (Tori Nolasco): Reason For Request: Wound care Chief Complaints: Wound Care PMH: COPD/Asthma, Hypertension, Cancer, Heart Disease Allergies: Aspirin, Ibuprofen, Morphine Other Allergies: dupixent, MS, ASA, naproxen, oxycodone, mult others that she can't recall Comments: Referral taken via [employer] [id number]. Member calling in to place a referral, [...] ................... ................... ................... ................... ................... ................... ........ Fittings Finisher Note From Jelani Geller: Patient conscious alert [...] moisture, discoloration, odor, discharge, or other concern. [facility] agrees encourages patient to follow up with urology, patient has an appointment April 12. Red flags patient education discussed. Patient demonstrates understanding of care and plan. Fittings Finisher Allergies: Aspirin, Ibuprofen, Morphine ................... ................... ................... ................... ................... ................... ................... ........ Disposition: Chantal IVAN MD [address] [place] [address],[address] [facility], [place], [phone], [employer] 04/10/2024 10:27:47 OBGyn Episode No OBEpisode recorded.
--- OUTSIDE RECORDS SUMMARY | 2025-07-25 10:31 | XMS_ITS | Encounter Summary ---
Author Organization [employer] Address [address] [place] [address] [address]t [place] [address] Care Team Providers Care Workplace Relations Adviser Name Role Phone Angeline Klein MD Primary Care Provider [phone] Encounter Details Date Type Department Care Team (Late st Contact Info) Description 04/05/2023 Orders Only [facility]INE [address] [place], [place] [phone] Angeline Klein MD [address] [place], [place] [phone] Primary osteoarthritis of both hips (Primary Dx); [...] neck documented in this encounter Care Teams Workplace Relations Adviser Relationship Specialty Start Date End Date Angeline Klein MD [address] [place], [place] [phone] PCP - General Family Medicine 08/21/20 documented as of this encounter
--- OUTSIDE RECORDS SUMMARY | 2025-07-25 10:31 | XMS_ITS | Encounter Summary ---
Author Organization [employer] Address [address] [facility] [address]t [place] [address] Care Team Providers Care Medicinal Plant Picker Name Role Phone Angeline Klein MD Primary Care Provider [phone] Reason for Visit * Reason Onset Date Comments Referral 04/04/2023 Encounter Details Date Type Department Care Team ([facility] st Contact Info) Description 04/04/2023 Telephone [facility] MEDICINE [address] [place] [address] Angeline Klein MD [address] [place] [address] Referral Social History Tobacco Use Types Packs/Day [...] 11:18 AM EDT TC placed to pt [phone] in regards to below message however number is OOS. RN called pt's OPHELIA Larson [phone] who was able to confirm the pt DOES want to go to [facility] [place] pain management. RN informed[facility] PCP would place referral today. OPHELIA Larson also provided RN w/ updated number for the pt ([phone]). RN has updated pt's chart. Please place referral to [facility] [place] pain management. * Telephone Encounter - Mary Devon - 04/04/2023 2:43 PM EDT Tc from kelly with [facility] requesting a new referral for pain management. documented in this encounter Plan of Treatment Not on file documented as of this encounter Visit Diagnoses Not on filedocumented in this encounter Care Teams Medicinal Plant Picker Relationship Specialty Start Date End Date Angeline Klein MD [address] [place] [id number] PCP - General Family Medicine 08/21/20 documented as of this encounter
--- OUTSIDE RECORDS SUMMARY | 2025-07-25 10:31 | XMS_ITS | Encounter Summary ---
Author Organization [employer] Address [address] [facility] 7t [place] [address] Care Team Providers Care Hospice Patient Care Secretary Name Role Phone Angeline Klein MD Primary Care Provider [phone] Reason for Visit * Reason Onset Date Comments Med Refill 12/20/2024 Encounter Details Date Type Department Care Team ([facility] st Contact Info) Description 12/20/2024 Telephone [facility] MEDICINE [address] [place] [address] Angeline Klein MD [address] [place] [address] Med Refill Social History Tobacco Use Types [...] the past 12 months, has t he [employer] gas, oil or water company threatened to [...] 25 MG tablet To be sent to: [id number] - [place] - [address] [facility] documented in this encounter Plan of Treatment Not on file documented as of this encounter Visit Diagnoses Not on filedocumented in this encounter Additional Health Concerns Assessment Noted Time PHQ-9 Depression Total Score: 4 12/26/19 24 10:32 AM EDT documented as of this encounter Care Teams Hospice Patient Care Secretary Relationship Specialty Start Date End Date Angeline Klein MD [address] [place] [address] [place] [id number] PCP - General Family Medicine 08/21/20 documented as of this encounter
--- OUTSIDE RECORDS SUMMARY | 2025-07-25 10:31 | XMS_ITS | Encounter Summary ---
Author Organization [employer] Address [address] [place] [address] [address] [place] [address] Care Team Providers Care Maintenance Instructor Name Role Phone Angeline Klein MD Primary Care Provider Reason for Visit * Reason Onset Date Comments Appointment Request 05/22/2023 Encounter Details Date Type Department Care Team ([facility] st Contact Info) Description 05/22/2023 Telephone [facility] MEDICINE [address] [place] [address] Angeline Klein MD [address] [place] [address] Appointment Request Social History Tobacco Use Types [...] @ 2:30 pm. Please contact pt at [phone] documented in this encounter Plan of Treatment Not on file documented as of this encounter Visit Diagnoses Not on filedocumented in this encounter Care Teams Maintenance Instructor Relationship Specialty Start Date End Date Angeline Klein MD [address] [place] [address] PCP - General Family Medicine 08/21/20 documented as of this encounter
--- OUTSIDE RECORDS SUMMARY | 2025-07-25 10:31 | XMS_ITS | Encounter Summary ---
Author Organization [employer] Address [address] [facility] 7t [place] [address] Care Team Providers Care Labeling Associate Name Role Phone Angeline Klein MD Primary Care Provider [phone] Encounter Details Date Type Department Care Team (Late st Contact Info) Description 08/01/2022 Abstract [facility] MEDICINE [address] [place], [place] [phone] Angeline Klein MD [address] [place] [address] Social History Tobacco Use Types Packs/Day Years [...] on filedocumented in this encounter Care Teams Labeling Associate Relationship Specialty Start Date End Date Angeline Klein MD [address] [place], [place] [phone] PCP - General Family Medicine 08/21/20 documented as of this encounter
--- OUTSIDE RECORDS SUMMARY | 2025-07-25 10:31 | XMS_ITS | Encounter Summary ---
Author Organization [employer] Address [address] [facility] 7t [place] [address] Care Team Providers Care Christian Science Healer Name Role Phone Angeline Klein MD Primary Care Provider [phone] Encounter Details Date Type Department Care Team (Late st Contact Info) Description 03/19/2024 Orders Only [facility] MEDICINE [address] [place], [place] [phone] Angeline Klein MD [address] [place] [address] Mixed stress and urge urinary incontinence (Primary [...] documented as of this encounter Care Teams Christian Science Healer Relationship Specialty Start Date End Date Angeline Klein MD [address] [place] [id number] PCP - General Family Medicine 08/21/20 documented as of this encounter
--- OUTSIDE RECORDS SUMMARY | 2025-07-25 10:31 | XMS_ITS | Encounter Summary ---
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
--- OUTSIDE RECORDS SUMMARY | 2025-07-25 10:31 | XMS_ITS | Encounter Summary ---
Author Organization [employer] Address [address] [place] [address] [address] [place] [address] Care Team Providers Care Environmental Health And Safety Manager Name Role Phone Angeline Klein MD Primary Care Provider [phone] Encounter Details Date Type Department Care Team (Late st Contact Info) Description 02/01/2023 Abstract [facility] MEDICINE [address] [place], [place] [phone] Angeline Klein MD [address] [place] [address] Social History Tobacco Use Types Packs/Day Years [...] on filedocumented in this encounter Care Teams Environmental Health And Safety Manager Relationship Specialty Start Date End Date Angeline Klein MD [address] [facility], [place] [phone] PCP - General Family Medicine 08/21/20 documented as of this encounter
--- OUTSIDE RECORDS SUMMARY | 2025-07-25 10:31 | XMS_ITS | Encounter Summary ---
Author Organization [employer] Address [address] [facility] 7t [place] [address] Care Team Providers Care Civil Drafter Name Role Phone Angeline Klein MD Primary Care Provider [phone] Encounter Details Date Type Department Care Team ([facility] st Contact Info) Description 09/23/2022 Telephone [facility] MEDICINE [address] [place], [place] [phone] Angeline Klein MD [address] [place], [place] [phone] Social History Tobacco Use Types Packs/Day Years [...] on filedocumented in this encounter Care Teams Civil Drafter Relationship Specialty Start Date End Date Angeline Klein MD [address] [place] [address] PCP - General Family Medicine 08/21/20 documented as of this encounter
--- OUTSIDE RECORDS SUMMARY | 2025-07-25 10:31 | XMS_ITS | Clinical Summary ---
Author Organization [employer] Address [address] [facility] [address] [place] [address] Care Team Providers Care Senior Packaging Engineer Name Role Phone Angeline Klein MD Primary Care Provider [phone] Allergies Active Allergy Reactions Criticality Noted Date [...] 80 mg at bedtime. Active nystatin (Mycostatin) 439925 UNIT/ML suspension SHAKE LIQUID AND TAKE 1 [...] [place]up with [place] [facility] [place] next biopsy planned for Aug 19, [address] Blair Assessment & Plan (12/26/2023 11:21 AM EDT): Continue followup with [place]ology and [place] [facility] [place] Disease is spreading, will discuss therapeutic options with Dr Palacios tomorrow Assessment & Plan (05/01/2023 4:22 PM EDT): Continue followup with [place]ology and [place] [facility] [place] No signs of infection [...] scheduled MRI with patient, Dec 2 at [facility] [place], so that she can [...] dose amlodipine -needs VNA --request today to temporary staff accountant to start process for this. [...] Case has been discussed with ER at [facility]. 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); Mixed stress and urge urinary incontinence 07/14/2025 Travel 06/13/[address] [address] Angeline Klein MD 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/2025 Orders Only [facility] External Provider, [facility] 05/08/[address] [address] Angeline Klein MD Nurse Triage from Last [...] AM EST Narrative 07/22/2025 9:59 [place] [address] XRay Report Signed Patient: Altaf Alba MR#: [id number] 260 : 1945 Acct:[id number] Age/Sex: 79 / F ADM Date: 07/22/25 Loc: HO.HHCX Attending Dr: Angeline Klein MD Ordering Physician: Angeline Klein Date of Service: 07/22/25 Procedure(s): XR clavicle LT Accession Number(s): [id number] cc: Angeline Klein Reason for Exam: pain [...] in OV> 07/22/25955 DD/ 0 TD/TT: 07/22/25950 Fan Installer: Procedure Note Donotuseinterpreter, Image - 07/22/[address] [address] XRay Report Signed Patient: Altaf AlbaMR#: [id number] 260 : 6Acct:[id number] Age/Sex: 79 / FADM Date: 07/22/25 Loc: HO.HHCX Attending Dr: Angeline Klein MD Ordering Physician: Angeline Klein Date of Service: 07/22/25 Procedure(s): XR clavicle LT Accession Number(s): [id number] cc: Angeline Klein Reason for Exam: pain [...] in OV> 07/22/25955 DD/ 0 TD/TT: 07/22/25950 Fan Installer: Angeline Klein MD IMG XR PROCEDURES Edited Resul t - Final * (ABNORMAL) CBC auto differential (07/18/2025 12:42 PM EST) White Blood Count 7.3 4.8 - 10.8 X10*3/uL [facility] Red Blood Count 4.03(L) 4.20 - 5.50 X10*6/uL [facility] Hemoglobin 10.3(L) 12.0 - 16.0 g/dl [facility] Hematocrit 34.0(L) 37.0 - 47.0 % [facility] Mean Corpuscular Volume 84.4 80.0 - 98.0 fL [facility] Mean Corpuscular Hemoglobin 25.6(L) 27.0 - 33.0 pg [facility] Mean Corpuscular HGB Conc 30.3(L) 31.0 - 35.0 g/dl [facility] Red Cell Distribution Width 17.3(H) 11.0 - 16.0 % [facility] Platelet Count 487(H) 160 - 400 X10*3/uL [facility] Mean Platelet Volume 9.9 9.4 - 12.3 fL [facility] Neutrophils Percent Auto 67.5 45 - 73 % [facility] Imm Gran Pct Auto 0.3 0.0 - 0.4 % [facility] Lymphocytes Percent Auto 21.9 20 - 40 % [facility] Monocytes Percent Auto 9.8 2 - 11 % [facility] Eosinophils Percent Auto 0.1 0 - 4 % [facility] Basophils Percent Auto 0.4 0 - 2 % [facility] NRBC Pct Auto 0.0 0.0 - 0.2 /100WBC [facility] Neutrophils Absolute Auto 5.0 2.0 - 8.3 x10*3/uL [facility] Imm Gran Abs Auto 0.02 0.00 - 0.03 X10*3/uL [facility] Lymphocytes Absolute Auto 1.6 1.2 - 4.9 X10*3/uL [facility] Monocytes Absolute Auto 0.7 0.1 - 1.2 X10*3/uL [facility] Eosinophils Absolute Auto 0.0 0.0 - 0.4 X10*3/uL [facility] Basophils Absolute Auto 0.0 0.0 - 0.2 X10*3/uL [facility] NRBC Abs Auto 0.000 0.0 - 0.012 X10*3/uL [facility] 07/18/2025 12:4 2 PM EST 07/18/2025 12:45 PM EST Generic External Data Provider LAB BLOOD ORDERAB LES Final Result Performing Organization Address [facility] Co de Phone Number [facility] [address] [place] [phone] * Prothrombin Time-INR (07/18/2025 12:42 PM EST) Prothrombin Time 12.9 11.2 - 13.5 SEC [facility] INTERNATIONAL NORM RATIO 1.1 0.9 - 1.1 [facility] Comment:INTERNATIONAL NORMAL IZED RATIO (INR) [...] 2 PM EST 07/18/2025 12:45 PM EST [employer] External Data Provider LAB BLOOD ORDERAB LES Final Result Performing Organization Address [facility] Co de Phone Number [facility] [address] [place] [phone] * (ABNORMAL) Basic Metabolic Panel (07/18/2025 12:42 PM EST) Sodium 140 135 - 145 mmol/L [facility] Potassium 4.9 3.3 - 5.1 mmol/L [facility] Chloride 107 96 - 108 mmol/L [facility] Carbon Dioxide 27 22 - 29 mmol/L [facility] Anion Gap 11(L) 12 - 20 [facility] Urea Nitrogen (BUN) 39(H) 9 - 16 mg/dL [facility] Creatinine, Serum 1.15 0.5 - 1.4 mg/dL [facility] Creatinine Clr Calc Pharmacy 29.0 [facility] Comment:Provided height and weight: 162.56 cm,45.6 kg.eGFR (calculated from the MDRD study equation) and eCrCl(calculated from the Cockcroft-Gault equation) are based ondifferent parameters and may not yield comparable results.If eCrCl result is absurd, please check patient'sheight/weight. Estimated Glomerular Filt Rate 46 [facility] Comment:Chronic Kidney Disea se: Estimated GFR < 60 mL/min/1.67f5Unuakm Kidney Disease: Estimated GFR < 15 mL/min/1.73m2 Glucose 83 60 - 115 mg/dL [facility] Calcium 9.3 8.4 - 10.2 mg/dL [facility] 07/18/2025 12:4 2 PM EST 07/18/2025 12:45 PM EST us Generic External Data Provider LAB BLOOD ORDERAB LES Final Result [facility] [address] [place] [phone] * IR Place Nephrostomy Cath Left (05/29/2025 4:29 PM EDT) Anatomical Region Laterality Modality X-Ray Angiograph y 05/29/2025 4:29 PM EDT Narrative 06/03/2025 5:11 PM EDT [place] [address] Interventional Radiology Rpt Signed Patient: Altaf Alba MR#: [id number] 260 : 1945 Acct:[id number] Age/Sex: 79 / F ADM Date: 05/29/25 Loc: HO.ED Attending Dr: Ordering Physician: Wen Belle Date of Service: 05/29/25 Procedure(s): IR nephrostomy via cath Accession Number(s): [id number] cc: Angeline Klein; Wen Belle Reason for [...] into the pre-existing tract. A new 8 Taiwanese locking pigtail catheter was advanced over the [...] 06/03/25 1710 DD/ 1629 TD/TT: 05/29/25 1659 Fan Installer: Procedure Note Donotuseinterpreter, Image - 06/04/[address] [place] [address] Interventional Radiology Rpt Signed Patient: Altaf AlbaMR#: [id number] 260 : 6Acct:[id number] Age/Sex: 79 / FADM Date: 05/29/25 Loc: .ED Attending Dr: Ordering Physician: Wen Belle Date of Service: 05/29/25 Procedure(s): IR nephrostomy via cath Accession Number(s): [id number] cc: Angeline Klein; Wen Belle Reason for [...] into the pre-existing tract. A new 8 Taiwanese locking pigtail catheter was advanced over the [...] 06/03/25 1710 DD/ 1629 TD/TT: 05/29/25 1659 Fan Installer: [facility] External Provider IMG IR PROCEDURES Final Result * IR Nephrostomy Tube Change (05/29/2025 4:29 PM EDT) Anatomical Region Laterality Modality Body X-Ray Angiograph y 05/29/2025 4:29 PM EDT Narrative 06/10/2025 2:49 PM EDT [address] [address] Interventional Radiology Rpt Signed Patient: Altaf Alba MR#: [id number] 260 : 1945 Acct:[id number] Age/Sex: 79 / F ADM Date: 05/29/25 Loc: .ED Attending Dr: Ordering Physician: Wen Belle Date of Service: 05/29/25 Procedure(s): IR nephrostomy tube change Accession Number(s): [id number] cc: Angeline Klein; Wen Belle Reason for [...] into the pre-existing tract. A new 8 Taiwanese locking pigtail catheter was advanced over the [...] 06/10/25 1419 DD/ 1629 TD/TT: 05/29/25 1659 Fan Installer: Procedure Note Donotuseinterpreter, Image - 06/10/2025 [place] [address] Interventional Radiology Rpt Signed Patient: Altaf AlbaMR#: [id number] 260 : 6Acct:[id number] Age/Sex: 79 / FADM Date: 05/29/25 Loc: .ED Attending Dr: Ordering Physician: Wen Belle Date of Service: 05/29/25 Procedure(s): IR nephrostomy tube change Accession Number(s): [id number] cc: Angeline Klein; Wen Belle Reason for [...] into the pre-existing tract. A new 8 Taiwanese locking pigtail catheter was advanced over the [...] MD 06/03/2025 05:07 PM EDT RP Workstation: [id number] Dictated By: David Sheehan NP Signed By:06/10/25 1419 DD/ 1629 TD/TT: 05/29/25 0529 Fan Installer: [facility] External Provider IMG IR PROCEDURES Final Result * LIPID PANEL, STANDARD (01/22/2021 9:15 AM EDT) Chol/HDLC Ratio 2.8 <5.0 (calc) [facility] Cholesterol, Total 179 <200 mg/dL [facility] HDL Cholesterol 63 > OR = 50 mg/dL [facility] LDL Cholesterol 95 mg/dL (calc) [facility] Comment: Reference range: <100 Desirable range <100 mg/dL for primary prevention; <70 mg/dL for patients with CHD or diabetic patients with > or = 2 CHD risk factors. LDL-C is now calculated using the Timoteo-Nguyễn calculation, which is a validated novel method providing better accuracy than the Friedewald equation in the estimation of LDL-C. Timoteo SS et al. SHARYN. 2013;310(19): 2907-2752 (http://education.[employer].com/faq/WKD343) Non-HDL Cholesterol 116 <130 mg/dL (calc) [facility] Comment: For patients with diabetes plus 1 major ASCVD risk factor, treating to a non-HDL-C goal of <100 mg/dL (LDL-C of <70 mg/dL) is considered a therapeutic option. Triglycerides 116 <150 mg/dL [facility] 01/22/2021 9:15 AM EDT Angeline Klein MD LAB BLOOD ORDERABLES Final Res ult Performing Organization Address [facility] Co de Phone Number [facility] [address] * HEPATITIS A,B,C PROFILE (08/22/2019 1:30 [...] Final Result Performing Organization Address [facility] de Phone Number [facility] [address] from Last 3 Months or Most Recently Relevant to Health Maintenance Insurance [facility] OPT[employer] (HMO D-SNP) YAMIL BRENNER [id number] Care Teams Senior Packaging Engineer Relationship Specialty Start Date End Date Angeline Klein MD [address] [place] [address] PCP - General Family Medicine 08/21/20
--- OUTSIDE RECORDS SUMMARY | 2025-07-25 10:31 | XMS_ITS | Encounter Summary ---
Author Organization [employer] Address [address] [facility] [address] [place] [address] Care Team Providers Care Learning Engineer Name Role Phone Angeline Klein MD Primary Care Provider [phone] Encounter Details Date Type Department Care Team (Late st Contact Info) Description 04/12/2024 Orders Only [facility] [address] [place] [address] Guadalupe Garrido MD [address] [place] [address] Social History Tobacco Use Types Packs/Day Years [...] documented as of this encounter Care Teams Learning Engineer Relationship Specialty Start Date End Date Angeline Klein MD [address] [place] [address] PCP - General Family Medicine 08/21/20 documented as of this encounter
--- OUTSIDE RECORDS SUMMARY | 2025-07-25 10:31 | XMS_ITS | Encounter Summary ---
Author Organization [employer] Address [address] [facility] [address]t [place] [address] Care Team Providers Care Private Secretary Name Role Phone Angeline Klein MD Primary Care Provider [phone] Reason for Visit * Reason Onset Date Comments Nurse Triage 03/29/2024 Encounter Details Date Type Department Care Team ([facility] st Contact Info) Description 03/29/2024 Telephone [facility] [address] [place] [address] Angeline Klein MD [address] [place] [address] Nurse Triage Social History Tobacco Use Types [...] 03/29/2024 3:15 PM EDT Triage call with [employer] Sheet Metal Duct Installer ID [id number] Pt reports fatigue for last 3 days. [...] Reason: Caller denied all higher acuity questions Singaporean Speaker (Accepted Sheet Metal Duct Installer) documented in this encounter Plan of Treatment Not on file documented as of this encounter Visit Diagnoses Not on filedocumented in this encounter Additional Health Concerns Assessment Noted Time PHQ-9 Depression Total Score: 4 12/26/19 24 10:32 AM EDT documented as of this encounter Care Teams Private Secretary Relationship Specialty Start Date End Date Angeline Klein MD [address] [place] [address] PCP - General Family Medicine 08/21/20 documented as of this encounter
--- OUTSIDE RECORDS SUMMARY | 2025-07-25 10:31 | XMS_ITS | Encounter Summary ---
Author Organization [employer] Address [address] [facility] [address] [place] [address] Care Team Providers Care Coating And Embossing Unit Operator Name Role Phone Angeline Klein MD Primary Care Provider [phone] Encounter Details Date Type Department Care Team (Late st Contact Info) Description 05/10/2024 Orders Only [facility] [address] [place], [place] [phone] Angeline Klein MD [address] [place] [address] Oral thrush (Primary Dx) Social History Tobacco [...] documented as of this encounter Care Teams Coating And Embossing Unit Operator Relationship Specialty Start Date End Date Angeline Klein MD [address] [place] [phone] PCP - General Family Medicine 08/21/20 documented as of this encounter
--- NOTE | ~2025-08-15 | IR_ITS ---
EXAMINATION: XR NEPHROSTOMY TUBE CHANGE, right-sided CLINICAL INFORMATION: FLUOROSCOPIC RIGHT SIDED NEPHROSTOMY TUBE EXCHANGE History: Patient with bilateral nephrostomy tubes due to bladder cancer and ureteral obstruction. Patient presents for three-month maintenance change. Procedure: Patient was informed and consented to the procedure. The patient's back was prepped and draped in routine sterile fashion. The right-sided catheter was cut and a stiff guidewire was placed through the tube and coiled into the renal pelvis. The old catheter was removed and over the wire a new 8 Haitian locking pigtail catheter was advanced. The wire was removed. 1% buffered lidocaine was used as anesthetic around the insertion site. The catheter left was cut and an stiff guidewire was placed through the tube and coiled into the renal pelvis. The old catheter was removed and over the wire. A new 8 Haitian locking pigtail catheter was advanced over the wire. The wire was removed. 5 mL of contrast was injected to ensure proper positioning of each catheter in the renal pelvis. A 3-0 monosof suture was used to secure the catheters to the skin. A sterile dressing was applied. Total fluoroscopy time was 1.3 and 15.1 mGy. IR/IR nephrostomy tube change IMPRESSION: Right-sided Nephrostomy tube exchange PLAN: Recommended routine exchange in 3 months or at urologist discretion. This procedure performed by David Sheehan NP, and supervised by Sesar Casarez M.D. Electronically signed by: Sesar Casarez MD 08/20/2025 04:27 PM [facility]
[2025-08-15 12:24] VITALS: BMI 16.3
[2025-08-15 12:30] VITALS: BP 114/58; PULSE 85; RESP 16; TEMP 36.9; O2SAT 94
[2025-08-15 13:45] VITALS: BP 146/76; PULSE 93; RESP 18; O2SAT 100
[2025-08-15 13:55] VITALS: BP 142/88; PULSE 95; RESP 18; O2SAT 99
[2025-08-15 14:06] VITALS: BP 135/102; PULSE 88; RESP 20; O2SAT 96
[2025-08-15 14:20] VITALS: BP 152/80; PULSE 86; RESP 20; O2SAT 95
[2025-08-15 14:35] VITALS: BP 148/76; PULSE 80; RESP 16; TEMP 36.6; O2SAT 96
== END 2025-08-15 14:55 | disposition home or self-care (01) ==
PROVIDERS: PCP General Practice; Visit Provider Urology
DX: N13.30 Unspecified hydronephrosis (principal); C67.9 Malignant neoplasm of bladder, unspecified; G89.4 Chronic pain syndrome; I10 Essential (primary) hypertension; E78.5 Hyperlipidemia, unspecified; J44.9 Chronic obstructive pulmonary disease, unspecified; J45.40 Moderate persistent asthma, uncomplicated; Z79.899 Other long term (current) drug therapy; Z88.2 Allergy status to sulfonamides; Z88.5 Allergy status to narcotic agent; Z88.6 Allergy status to analgesic agent; Z90.710 Acquired absence of both cervix and uterus; Z98.890 Other specified postprocedural states; Z87.891 Personal history of nicotine dependence
CPT/HCPCS: 50435; C1769; C1887; J1642; J2003; J2250; J3010; Q9967

== ENCOUNTER → 2025-08-15 12:56 | Outpatient (BNV) | payer OTHER, SELFPAY | PROVIDERS: PCP General Practice | DX: N13.30 Unspecified hydronephrosis (principal) | CPT/HCPCS: 50435 ==